=== PATIENT | female | born 1965 | race Caucasian/White ===

== ENCOUNTER → 2018-02-10 08:48 | Outpatient (CLI) | payer MEDICAID, SELFPAY ==
[2018-01-31 08:46] VITALS: BMI 21.4
--- NOTE | 2018-02-10 09:00 | RAD_ITS ---
STUDY: X-RAY - ESOPHAGUS (BARIUM SWALLOW) WITH FLUOROSCOPY REASON FOR EXAM: Female, 52 years old. Dysphagia for solids. TECHNIQUE: 14 view(s) of the esophagus were obtained following swallowing of barium. FLUOROSCOPY TIME (if supplied): (0:31) minutes/seconds COMPARISON: None. FINDINGS: There is no demonstrated esophageal foreign body. There is circumferential wall narrowing at the gastroesophageal junction. The patient ingested a 12 mm tablet of barium. The tablet is trapped at the gastroesophageal junction. Normal visualized aortic arch and descending thoracic aorta. Normal visualized pulmonary parenchyma. Normal visualized osseous structures of the thorax. RAD/Esophagus Only IMPRESSION: Circumferential narrowing at the gastroesophageal junction with trapping of the 12 mm tablet of barium. Endoscopic correlation is recommended. Electronically Signed: Fritz Alston MD at 14:06 EST Tel [phone], Service support ,
== END ==
PROVIDERS: Referring Provider Surgery; Visit Provider Surgery
DX: R13.10 Dysphagia, unspecified (principal)
CPT/HCPCS: 74220

== ENCOUNTER → 2018-02-25 13:41 | Outpatient (CLI) | payer MEDICAID, SELFPAY ==
[2018-01-31 08:46] VITALS: BMI 21.4
--- NOTE | 2018-02-25 13:43 | CT_ITS ---
STUDY: CT ABDOMEN AND PELVIS WITH CONTRAST REASON FOR EXAM: Female, 52 years old. Dysphagia. RADIATION DOSAGE (If Supplied By Facility): CTDIvol = ( 8.71 ) mGy, DLP = ( 341.70 ) mGycm TECHNIQUE: Transaxial images were obtained from the dome of the diaphragm to the symphysis pubis without oral contrast. 75 ml of Isovue 300 contrast was administered. Sagittal and coronal images were reconstructed. Individualized dose optimization techniques were used for this CT. COMPARISON: None. FINDINGS: The visualized lung bases are unremarkable. The visualized portions of the heart are within normal limits. Normal liver. Normal gallbladder and extrahepatic biliary system. Normal spleen. Normal pancreas. Normal bilateral adrenal glands. There is a too small to characterize low-attenuation focus within the right kidney that likely reflects underlying cyst. Normal left kidney. The visualized distal esophagus is incompletely distended There is mild focal thickening of the distal esophagus left of midline. There is circumferential wall thickening of the gastroesophageal junction visualized as well. Normal small intestine. There is a moderate amount of stool throughout the colon and rectum. There is non-visualization of the appendix. There is diffuse atherosclerotic calcification of the abdominal aorta, without a demonstrated aneurysm. Normal inferior vena cava. Normal retroperitoneum. Normal urinary bladder. Normal abdominal wall. Normal osseous structures. CT/Abdomen/Pelvis WITH Contrast IMPRESSION: Focal thickening of the distal esophagus and circumferential wall thickening of the gastroesophageal junction which may be secondary to their incompletely distended state however cannot exclude underlying inflammation and/or a neoplastic process, recommend direct visualization. Atherosclerosis. Moderate amount of stool throughout the colon and rectum. Electronically Signed: Niurka Wright MD at 15:12 EST Tel , Service support ,
[2018-02-25 14:01] LABS: CREATININE FINGERSTICK 0.8 mg/dL (0.55-1.02); EGFR FINGERSTICK > 60.0000 mL/min (>60)
--- OUTSIDE RECORDS SUMMARY | 2018-04-13 18:24 | XMS RPT_ITS ---
:1965 Author Organization [facility] Care Team Providers Name Role Phone Maliha Mcconnell Attending Unavailable Yamileth Lara Referring Unavailable Maliha Mcconnell Attending Unavailable Maliha Mcconnell Referring Unavailable [facility], [facility] Unavailable Maliha Mcconnell Attending Unavailable Maliha Mcconnell Referring Unavailable [facility] Unavailable Yamileth Lara Consulting Unavailable PROBLEMS PROBLEMS No Problem Records FoundPROCEDURES PROCEDURES No Procedure Records FoundRESULTS RESULTS CREATININE FINGERSTICK Collected: 02/25/2018 Status: F Source: [place] 1:51 PM [facility] REPOSITORY TYPE CODE TESTS RESULT OUT OF RANGE REFERENCE UNITS LAB L9100.0210 0.55-1.02 mg/dL Normal CREATININE WB 0.8 LAB L9100.0220 >60 mL/min EGFR WB Normal > 60.0000 Performed By: #### L9100.0200 #### [place] [facility] Laboratory Point of Care [address] [place] [address] ABDOMEN/PELVIS WITH Observed: 02/25/2018 Status: F Source: [place] CONTRAST 1:43 PM [facility] REPOSITORY [facility] Imaging Services [address] [place] [address] Abdomen/Pelvis WITH Contrast MR#: [id number] Acct: [id number] Name: SANJUANITA BECERRA Rep #: [id number] : 1965 F 52 From: Niurka Wright MD PCP: [facility] Status: REG CLI Study: Abdomen/Pelvis WITH Contrast Date of Exam: 02/25/18 Exam# [id number] Ordering Dr: Maliha Mcconnell MD STUDY: CT ABDOMEN AND PELVIS WITH CONTRAST REASON FOR EXAM: Female, 52 years old. Dysphagia. RADIATION DOSAGE (If Supplied By Facility): CTDIvol = ( 8.71 ) mGy, DLP = ( 341.70 ) mGycm TECHNIQUE: Transaxial images were obtained from the dome of the diaphragm to the symphysis pubis without oral contrast. 75 ml of Isovue 300 contrast was administered. Sagittal and coronal images were reconstructed. Individualized dose optimization techniques were used for this CT. COMPARISON: None. FINDINGS: The visualized lung bases are unremarkable. The visualized portions of the heart are within normal limits. Normal liver. Normal gallbladder and extrahepatic biliary system. Normal spleen. Normal pancreas. Normal bilateral adrenal glands. There is a too small to characterize low-attenuation focus within the right kidney that likely reflects underlying cyst. Normal left kidney. The visualized distal esophagus is incompletely distended There is mild focal thickening of the distal esophagus left of midline. There is circumferential wall thickening of the gastroesophageal junction visualized as well. Normal small intestine. There is a moderate amount of stool throughout the colon and rectum. There is non-visualization of the appendix. There is diffuse atherosclerotic calcification of the abdominal aorta, without a demonstrated aneurysm. Normal inferior vena cava. Normal retroperitoneum. Normal urinary bladder. Normal abdominal wall. Normal osseous structures. CT/Abdomen/Pelvis WITH Contrast IMPRESSION: Focal thickening of the distal esophagus and circumferential wall thickening of the gastroesophageal junction which may be secondary to their incompletely distended state however cannot exclude underlying inflammation and/or a neoplastic process, recommend direct visualization. Atherosclerosis. Moderate amount of stool throughout the colon and rectum. Electronically Signed: Niurka Wright MD at 15:12 EST Tel , Service support , CC: Maliha Mcconnell MD; [facility] Language Translator: Signed ESOPHAGUS ONLY Observed: 02/10/2018 Status: F Source: [place] 8:50 AM [facility] REPOSITORY [facility] Imaging Services [address] [place] [address] Esophagus Only MR#: [id number] Acct: [id number] Name: SANJUANITA BECERRA Rep #: [id number] : 1965 F 52 From: Fritz Alston MD PCP: [facility] Status: REG CLI Study: Esophagus Only Date of Exam: 02/10/18 Exam# [id number] Ordering Dr: Maliha Mcconnell MD STUDY: X-RAY - ESOPHAGUS (BARIUM SWALLOW) WITH FLUOROSCOPY REASON FOR EXAM: Female, 52 years old. Dysphagia for solids. TECHNIQUE: 14 view(s) of the esophagus were obtained following swallowing of barium. FLUOROSCOPY TIME (if supplied): (0:31) minutes/seconds COMPARISON: None. FINDINGS: There is no demonstrated esophageal foreign body. There is circumferential wall narrowing at the gastroesophageal junction. The patient ingested a 12 mm tablet of barium. The tablet is trapped at the gastroesophageal junction. Normal visualized aortic arch and descending thoracic aorta. Normal visualized pulmonary parenchyma. Normal visualized osseous structures of the thorax. RAD/Esophagus Only IMPRESSION: Circumferential narrowing at the gastroesophageal junction with trapping of the 12 mm tablet of barium. Endoscopic correlation is recommended. Electronically Signed: Fritz Alston MD at 14:06 EST Tel [phone], Service support , CC: Maliha Mcconnell MD; [facility] Language Translator: Signed SURGERY VISIT REPORT Observed: 01/31/2018 Status: F Source: [place] 9:37 AM [facility] REPOSITORY [facility] [address] [place] [address]. 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 Is patient in pain?: Yes (abdomen) Pain scale (1-10): 2 Allergies No Known Allergies Allergy (Verified 08/27/16 23:21) Medications insulin glargine (U-100) 100 unit/mL (3 mL) subcutaneous pen 10 unit SC DAILY 01/31/18 [History Confirmed 01/31/18] omeprazole 20 mg capsule,delayed release 20 mg PO DAILY 01/31/18 [History Confirmed 01/31/18] PFSH Medical History Acid reflux (Acute) Diabetes (Acute) Surgical History H/O thumb surgery (Acute) S/P appendectomy (Acute) Family History Grandmother Breast cancer Father Heart disease Hypertension Sister Thyroid disorder Aunt Thyroid disorder Social History Smoking Status: Current every day smoker alcohol intake: never HPI HPI HPI: SANJUANITA BECERRA, is a 52 F who presents to the office today for upper and lower scope. Patient has had complaints of dysphasia feeling like food gets caught in her distal esophagus and then she user throws it back up or if she it does happen to pass she states she gets diarrhea. She states is been going on for about 5-10 years and she really does not eat much solid food at all mostly liquids. Patient does have poor dentition has been recommended for her to see a dentist however the previous stents that she saw she had a bad experience with and does not wish to see him again. Patient also does complain of epigastric pain that go into her lower chest and she has that pretty much all the time the pain can range from a 1-10/10, it can last from a minute to most the day. Patient denies ever having a scope before or any family history of colon cancer. She states she has bowel movements about every other day denies any blood. Patient is also a diabetic but she states that the last time she taken any of her diabetic medication was in December she says she gets frustrated because even if she does not eat the blood sugars are always high. She states she has had labs done at the [facility] or trying to get those to see what her A1c is. ROS General General: No weight change, fatigue, colon cancer or breast cancer Gastro Gastrointestinal: Yes abdominal pain, Yes nausea or vomiting (Vomiting no nausea), Yes diarrhea, No constipation, No blood in stool, Yes acid reflux, No hemorrhoids, No ulcers, No gallbladder problem, No black,tarry stools Exam Const General: cooperative, comfortable, no acute distress HENMT Teeth and gingiva: poor dentition Resp Effort AND Inspection: normal respiratory effort GI Inspection: non-distended, scar (Right lower quadrant scar from appy) Palpation: soft, no hernias, tender (epigastric, no PS), no guarding Assessment AND Plan Problems 1. Dysphagia R13.10 2. Gastroesophageal reflux disease K21.9 3. Epigastric pain R10.13 4. Diabetes type 2, uncontrolled E11.65 5. Encounter for screening for malignant neoplasm of colon Z12.11 6. Poor dentition K08.9 Plan Discussed with patient that due to her dysphasia and feeling like food gets caught in her distal esophagus with plan to have her do a barium swallow prior to doing the EGD. Once we get the results of the barium swallow and does not look to be a stricture anything that needs to be dilated since I do not dilate the esophagus I would proceed with an EGD at that time. Patient does have a prescription for omeprazole 20 mg p.o. daily that she got on Saturday but has not taken any because she has not really eaten. Recommend the patient take omeprazole 40 mg once a day and told her it is okay as long as she is drinking she could take the medication. I have offered the patient EGD and colonoscopy for evaluation. Will schedule after barium swallow complete. I have explained the risks/benefits of the procedure and described the procedure. I have discussed the risks with the patient, including but not limited to: infection, bleeding, perforation of the GI tract requiring emergency surgery, inability to complete the procedure, injury to any internal organs, complications of anesthesia, etc. - the patient understands and agrees to proceed. I have answered all the patient's questions to the patient's satisfaction and the patient has no further questions. The patient has been given instructions for the colon cleansing preparation. One day of clears, MiraLAX Dulcolax split. Patient states she has not taken any insulin since December. States she has had labs done at the [facility]. Currently do not have those labs. Assuming her A1c is quite high. Also discussed patient that anesthesias does not allow us to elective cases if the A1c is 10 or greater. Recommend that she make another appointment with the [facility] and figure out her diabetic regimen that she should be doing at home and start doing that. Also discussed talking to them about possibly seeing if she can see anyone for nutrition since she does have diabetes. Also discussed her poor dentition would recommend her seeing a dentist. Patient did not prefer to see the one at the [facility] as she had a bad experience last time wondering if there is anyone else that they would know that she would be able to see. Maliha Mcconnell M.D. Pager: [phone] [facility] [address] [place] [address], [facility], [address] [place] [address] Office: [phone] Orders Orders: Plan Detail Follow Up will schedule barium swallow Coding Level of Care Code Off vis,new,level 4 Diagnoses Dysphagia R13.10 Gastroesophageal reflux disease K21.9 Epigastric pain R10.13 Diabetes type 2, uncontrolled E11.65 Encounter for screening for malignant neoplasm of colon Z12.11 Poor dentition K08.9 Time Spent (min) 45 11/16/18 0937 <Electronically signed by Maliha Mcconnell MD> Date Maliha Mcconnell MD Cosigner Signature: Date (if applicable) CC: Yamileth MERINO; [facility] ALLERGIES ALLERGIES DATE TYPE / CODE NAME / CODE REACTION SEVERITY SOURCE 08/27/2016 Drug No Known Unknown [facility] Allergy/4160 Allergies/F00 [facility] 89069(SNOMED [id number](RXNOR Repository CT) M) ENCOUNTERS ENCOUNTERS ADMIT/DISCHARGE ACCOUNT ADMITTING ENCOUNTER LOCATION SOURCE NUMBER CLASS 02/25/2018 [id number] Ambulatory [place] [facility] ing:CT Repository 02/10/2018 [id number] Ambulatory [place] [facility] ing:RAD Repository 01/31/2018/ [id number] Ambulatory BMSBuilding:B [place] [address] [facility] Repository PAYERS PAYERS ENCOUNTER GUARANTOR PAYER SUBSCRIBER SOURCE 02/25/2018 [place] FONGTYDOB: [place] [id number] [place] Insurance:[facility] [id number] [facility] [address]Szi: ([phone]) PLANPolicy Number: Repository [phone] ) [id number] Date:2964-48-36HI [address] [place] [address]ZG: 02/25/2018 Secondary NOT GIVENUNK [place] Insurance:SELF PAY [facility] Number: Effective Repository Date:2018-02-10 02/10/2018 CASPER Tillman Primary SANJUANITA S AJITTYDOB: [place] [id number] [place] Insurance:[facility]STINE [id number] [address]Lgt: (330) PLANPolicy Number: Repository [phone] () [id number] Date:1041-30-16[address] [facility] [place] [address]JG: 02/10/2018 Secondary NOT GIVENUNK [place] Insurance:SELF PAY [facility] Number: Effective Repository Date:2018-01-31 01/31/2018 Cas[place] A Primary SANJUANITA HILTYDOB: [place] [id number] [place] Insurance:WILD [id number] [address]Kvg: (330) PLANPolicy Number: Repository [phone] () [id number] Date:1671-08-07DZ [address] [place] [address]QT: 01/31/2018 Secondary SANJUANITA HILTYDOB: [place] Insurance:POSIES FOR [id number] [facility] Number: Repository [id number] Date:2018-01-28 01/31/2018 Tertiary NOT GIVENUNK [place] Insurance:SELF PAY [facility] Number: Effective Repository Date:2018-01-31
== END ==
PROVIDERS: Referring Provider Surgery; Visit Provider Surgery
DX: R13.10 Dysphagia, unspecified (principal)
CPT/HCPCS: 74177; Q9967

== ENCOUNTER 2018-10-06 07:39 | Day surgery (SDC) | payer MEDICAID, SELFPAY ==
--- NOTE | 2018-09-22 01:47 | HP_ITS ---
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 Is patient in pain?: No Allergies No Known Allergies Allergy (Verified 09/22/18 13:40) Medications insulin glargine (U-100) 100 unit/mL (3 mL) subcutaneous pen 10 unit SC DAILY 01/31/18 [History Confirmed 09/22/18] omeprazole 20 mg capsule,delayed release 20 mg PO DAILY 01/31/18 [History Confirmed 09/22/18] [facility] Medical History Dysphagia (Acute) Acid reflux (Acute) Diabetes (Acute) Surgical History history EGD with dilatation (Acute) H/O thumb surgery (Acute) S/P appendectomy (Acute) Family History Grandmother Breast cancer Father Heart disease Hypertension Sister Thyroid disorder Aunt Thyroid disorder Social History (Updated 09/22/18 @ 13:47 by Fabiano Barbosa MD) Smoking Status: Current every day smoker alcohol intake: never HPI HPI HPI: SANJUANITA BECERRA, is a 53 F who presents to the office today for HPI HPI Surgical H&P: Yes HPI: SANJUANITA BECERRA, is a 53 F who presents to the office today for a screening colonoscopy. Patient has never had a colonoscopy. She has had issues with a narrowed esophagus in this past year underwent esophageal dilatation up and [place]. This was done by Dr. Garcia since then she has had no difficulty with swallowing. ROS General General: Yes weight change; no appetite, fatigue, colon cancer, breast cancer or weakness HEENT HEENT: No difficulty swallowing, eye injury, eye surgery, swollen glands or hoarseness Endo Endocrine: Yes diabetes mellitus; no thyroid disease, thyroid cancer, Hair loss, heat intolerance or cold intolerance Skin Skin: No rash or changing moles Breast Breast: No left breast lump, right breast lump, nipple discharge, breast pain, abnormal mammogram, abnormal US or breast enlargement Musc Musculoskeletal: No back problems, arthritis, rheumatoid arthritis, gout or joint pain Cardio Cardiovascular: Yes high blood pressure; no murmur, pacemaker, heart disease, atrial fibrillation, heart attack, heart stent, palpitations, shortness of breat with exertion or chest pain Psych Psychiatric: Yes depression; no anxiety or hearing voices Resp Respiratory: No shortness of breath, Yes sleep apnea, Yes cough, No COPD, No asthma, No emphysema, No wheezing Gastro Gastrointestinal: No abdominal pain, No nausea or vomiting, Yes diarrhea, No constipation, No blood in stool, Yes acid reflux, No hemorrhoids, No ulcers, No gallbladder problem, No black,tarry stools Brigido Hematologic: No blood thinners, No blood disorders, No bleeding, No anemia, No blood clots Neuro Neurologic: No system reviewed and no additional complaints, except as docu, No as per HPI, No abnormal walking, No abnormal hearing, No abnormal movements, No abnormal speech, No behavioral changes, No burning sensations, No confusion, No seizure-like activity, No unsteadiness, No dizziness, No localized weakness, No frequent falls, No headache(s), No lack of coordination, No loss of vision, No memory loss, No numbness, No other visual disturbances, No radiating pain, No restless legs, No sensory deficit, No fainting, No tingling, No tremor(s), No weakness, No other Exam Const General: no acute distress, well developed, well hydrated Orientation: oriented to person, oriented to place, oriented to time [facility] Head: normocephalic, atraumatic Ears: external ears normal Mouth: moist mucous membranes Eyes Sclera: sclerae normal Pupils: normal by confrontation Neck Neck: no lymphadenopathy noted Neck mass: No Thyroid: thyroid normal, symmetrical Chest Chest palpation & inspection: normal inspection of the chest Breast Palpation: No nipple discharge Resp Effort & Inspection: normal respiratory effort Auscultation: clear to auscultation bilaterally Percussion: percussion normal Cardio Rate: regular rate Rhythm: regular rhythm Heart Sounds: no murmurs GI Palpation: soft, no hepatosplenomegaly, no masses, nontender Rectal Exam: other Other: Rectal exam deferred. Extrem General: normal to inspection, no clubbing, cyanosis or edema Assessment & Plan Problems 1. Encounter for screening colonoscopy Z12. Plan I have discussed the above with the patient. I have offered the patient colonoscopy for evaluation. I have explained the risks/benefits of the procedure and described the procedure. I have discussed the risks with the patient, including but not limited to: infection, bleeding, perforation of the GI tract requiring emergency surgery, inability to complete the procedure, injury to any internal organs, complications of anesthesia, etc. - the patient understands and agrees to proceed. I have answered all the patient's questions to the patient's satisfaction and the patient has no further questions. The patient has been given instructions for the colon cleansing preparation. Coding Level of Care Code Off vis,new,level 3 Diagnoses Encounter for screening colonoscopy Z12.09/22/18 1347 <Electronically signed by Fabiano andrade MD> Date _ Fabiano Barbosa MD I have re-examined the patient. There are no clinical changes since date of exam.
[2018-09-22 13:41] VITALS: BMI 21.4
[2018-10-06] VITALS (7 sets, daily range): BP systolic 84–133; BP diastolic 55–84; PULSE 74–95; RESP 16; TEMP 36.2–36.7; O2SAT 93–100; BMI 19.5
[2018-10-06 08:55] LABS: Bedside Glucose 140 mg/dL (70-110)
--- NOTE | 2018-10-06 10:27 | OP.ENDO_ITS ---
10/06/2018 Jocelyn Lyles [facility] Re : Colonoscopy procedure for Arianna Yoo [facility] This procedure was performed on Saturday, October 06, 2018. My impressions and recommendations are as follows: Impressions : - The entire examined colon is normal on direct and retroflexion views. - No specimens collected. Recommendations : - Discharge patient to home. - Resume previous diet. - Continue present medications. - Repeat colonoscopy in 10 years for screening purposes. - Return to primary care physician (date not yet determined). My findings are described in the full procedure note, which is enclosed. If I can be of further assistance, please feel free to contact me at Doctor phone number(s): , Fax: [phone], Work: . Sincerely, MD Fabiano Molina MD 10/06/2018 10:27:14 AM This report has been signed electronically.
== END 2018-10-06 11:18 | disposition home or self-care (01) ==
LOC: EN 07:40 → AC 07:42
PROVIDERS: Referring Provider Surgery; Visit Provider Surgery
PROC: 0DJD8ZZ Inspection of Lower Intestinal Tract, Via Natural or Artificial Opening Endoscopic (ICD-10-PCS; CPT 45378; principal; 2018-10-06 08:55)
DX: Z12.11 Encounter for screening for malignant neoplasm of colon (principal); E11.9 Type 2 diabetes mellitus without complications; F17.200 Nicotine dependence, unspecified, uncomplicated; K21.9 Gastro-esophageal reflux disease without esophagitis; Z79.4 Long term (current) use of insulin; Z79.899 Other long term (current) drug therapy
CPT/HCPCS: 45378; 82962; J7120; J1610

== ENCOUNTER → 2020-08-16 10:01 | Outpatient (CLI) | payer MEDICAID, SELFPAY ==
[2020-08-16 10:01] VITALS: BMI 19.5
[2020-08-16 10:46] LABS: Absolute Lymphocyte Count 1.64 X10^3/uL (0.83-4.51); Absolute Neutrophil Count 6.4 X10^3/uL (2.0-7.7); Basophil# 0.07 X10^3/uL; Basophil% 0.8 % (0-1); Eosinophil# 0.11 X10^3/uL; Eosinophils% 1.2 % (0-5); Hematocrit 37.3 % (37-47); Hemoglobin 12.4 g/dL (12.0-15.0); Lymphocyte # 1.64 X10^3/ul (0.83-4.51); Lymphocyte % 18.4 % (19-41); Mean Corp Hgb Conc 33.2 g/dL (32-36); Mean Corpuscular Hgb 29.5 pg (27.0-32.0); Mean Corpuscular Volume 88.8 fL (81-99); Mean Platelet Vol. 11.7 fl (6.2-12.0); Monocyte# 0.62 X10^3/uL; NRBC Flagged by Analyzer 0 % (0-5); Neutrophil # 6.43 X10^3/uL (2.7-7.7); Neutrophil % 72.3 % (47-70); Platelet Count 231 K/mm3 (150-450); RBC Distribution Width CV 12.1 % (11.6-14.6); White Blood Count 8.9 K/mm3 (4.4-11.0)
[2020-08-16 11:23] LABS: ALB/GLOB Ratio 0.8 RATIO (0.9-2.4); AST(SGOT) 14 U/L (15-37); Alanine Aminotransfer ALT/SGPT 24 U/L (13-56); Albumin, Serum 3.4 g/dL (3.2-5.0); Alkaline Phosphatase 185 U/L (45-117); Anion Gap 8 (5-15); BUN 12 mg/dL (7-18); BUN/Creat Ratio 13.1 RATIO (10-20); Calcium,Total 9.2 mg/dL (8.5-10.1); Chloride 98 mmol/L (98-107); Cholesterol 218 mg/dL (200); Creatinine, Serum 0.92 mg/dL (0.55-1.02); EST Glomerular Filtration Rate 68 mL/min (>60); Est Glom Filt Rate - Afr Amer 82 mL/min (>60); Globulin 4.1 g/dL (2.2-4.2); Glucose 462 mg/dL (74-106); High Density Lipoprotein 69 mg/dL; Protein, Total 7.5 g/dL (6.4-8.2); Sodium Level 134 mmol/L (136-145); Thyroid Stim Hormone (TSH) 0.57 uIU/mL (0.358-3.74); Triglycerides 187 mg/dL; Very Low Density Lipoprotein 37 mg/dL (5-40)
== END ==
DX: E11.65 Type 2 diabetes mellitus with hyperglycemia (principal)
CPT/HCPCS: 36415; 80053; 80061; 84443; 85025

== ENCOUNTER 2020-08-30 07:10 | Emergency (ER) | payer MEDICAID, SELFPAY ==
[2020-08-16 10:01] VITALS: BMI 19.5
[2020-08-30 07:10] VITALS: BP 110/67; PULSE 115; RESP 16; TEMP 35.8; BMI 19.9
--- NOTE | 2020-08-30 07:36 | EX.ED.DYSGE1 ---
HPI History of Present Illness Chief Complaint: Ear Problem Associated Symptoms Associated Symptoms: Right ear pain for a few days after getting her hair wet using Q-tips with Narrative Narrative: Right ear pain for a few days after getting her hair wet using Q-tips with no improvement no fever no cough no left ear symptoms no other complaints no URI symptoms no history of ear issues or problems [facility] Medical History (Updated 08/30/20 @ 07:[address] Anjel Smith MD) Acid reflux Diabetes Dysphagia Home Medications omeprazole 20 mg capsule,delayed release 20 mg PO DAILY 01/31/18 [History Last Taken Unknown] albuterol sulfate 2 puff INHALATION Q4H PRN PRN 10/01/18 [History Last Taken Unknown] ergocalciferol (vitamin D2) 50,000 unit PO Q7D 10/01/18 [History Last Taken Unknown] insulin glargine 35 unit SQ QHS 10/01/18 [History Last Taken Unknown] metformin 1,000 mg PO DAILY 10/01/18 [History Last Taken Unknown] carbamide peroxide [Ear Drops (carbamide peroxide)] 5 drp RIGHT EAR DAILY 4 Days #18 ml 08/30/20 [Rx Last Taken Unknown] Allergy/AdvReac Type Severity Reaction Status Date / Time No Known Allergies Allergy Verified 10/01/18 13:32 Family History Grandmother Breast cancer Father Heart disease Hypertension Sister Thyroid disorder Aunt Thyroid disorder Surgical History H/O thumb surgery history EGD with dilatation S/P appendectomy Social History (Updated 09/22/18 @ 13:[address] Fabiano Barbosa MD) Smoking Status: Current every day smoker tobacco type: cigarettes alcohol intake: never ROS ROS ED ROS Narrative Right ear discomfort only otherwise negative Constitutional Constitutional ED: Reports subjective, sweats and other; Denies chills, fever(s) or weight loss Eyes Eyes: Denies blurry vision or change in vision ENT ENT ED: Denies ear pain Cardiovascular Cardiovascular: Denies chest pain or palpitations Respiratory/Chest Respiratory/Chest: Denies dyspnea Gastrointestinal Gastrointestinal: Denies abdominal pain, nausea or vomiting Genitourinary Genitourinary ED: Denies dysuria or hematuria Musculoskeletal Musculoskeletal: Denies arthralgias or myalgias Integumentary Reports rash; Denies abscess Neurologic Neurologic: Denies weakness Psychiatric Psychiatric: Denies anxiety or depression Endocrine Endocrinology: Denies polydipsia or polyuria Allergic/Immunologic Allergic/Immunologic ED: Denies urticaria EXAM Physical Exam Narrative Exam Narrative: Physical exam is as above generally unremarkable see those notes, she does appear to have a right cerumen impaction TM is minimally visualized and appears okay the left TM and canal are unremarkable nose and throat and the rest of exam is unremarkable see below Const Vital Signs: 08/30/20 07:10 Temperature 96.4 F L Temperature Source Temporal Pulse Rate 115 H Respiratory Rate 16 Blood Pressure 110/67 Blood Pressure Mean 81 Positive well developed General Appearance ED: well developed HEENT Reports normocephalic Negative for trauma Eyes EOMs intact bilaterally Neck supple Chest Wall inspection of chest normal Resp normal respiratory effort Cardio regular rate GI non-tender and non-distended Back/Spine Back/Spine Narrative: unremarkable Extremity normal to inspection Neuro oriented x3 and CN's II-XII intact bilaterally Sensorium / Orientation: alert Psych mental status grossly normal Skin no rashes or lesions noted MDM MDM MDM Narrative Medical decision making narrative: Discussed the above with her asked her to stop using Q-tips, she will be started on Cerumenex refer to ENT and return for change in symptoms Home disposition final impression right earwax impaction Discharge Plan Triage Chief Complaint: Ear Problem ED Provider: Anjel Smith Dx/Rx/DC Orders Clinical Impression: Cerumen impaction Instructions: ED Cerumen Impaction Treated Prescriptions: New carbamide peroxide [Ear Drops (carbamide peroxide)] 6.5 % drops 5 drp RIGHT EAR DAILY 4 Days Qty: 18 RF: 0 No Action omeprazole 20 mg capsule,delayed release(DR/EC) 20 mg PO DAILY RF: 0 metformin 1,000 MG tablet 1,000 mg PO DAILY RF: 0 ergocalciferol (vitamin D2) 50,000 UNIT capsule 50,000 unit PO Q7D RF: 0 albuterol sulfate 1 PUFF inhaler 2 puff inhalation Q4H PRN PRN (Reason: Sob &/Or Wheezing) RF: 0 insulin glargine 100 UNIT/ML insulin pen 35 unit SQ QHS RF: 0 [facility] Referrals: Vimal Carrero MD [STAFF PHYSICIAN] - [facility],Jocelyn Lyles [Primary Care Provider] -
== END 2020-08-30 07:57 | disposition home or self-care (01) ==
LOC: ED 07:50
PROVIDERS: Emergency Provider Emergency Medicine
DX: H61.21 Impacted cerumen, right ear (principal); F17.210 Nicotine dependence, cigarettes, uncomplicated; E11.9 Type 2 diabetes mellitus without complications; K21.9 Gastro-esophageal reflux disease without esophagitis; Z79.4 Long term (current) use of insulin; Z79.899 Other long term (current) drug therapy
CPT/HCPCS: 99282

== ENCOUNTER 2020-10-13 00:07 | Emergency (ER) | payer MEDICAID, SELFPAY ==
[2020-10-13 00:08] VITALS: BP 136/61; PULSE 80; RESP 17; TEMP 36.6; O2SAT 98; BMI 17.7
[2020-10-13 00:10] VITALS: TEMP 35.1; BMI 17.6
[2020-10-13 00:21] LABS: Bedside Glucose 116 mg/dL (70-110)
[2020-10-13 00:30] LABS: Absolute Lymphocyte Count 3.78 X10^3/uL (0.83-4.51); Absolute Neutrophil Count 10.3 X10^3/uL (2.0-7.7); Basophil# 0.08 X10^3/uL; Basophil% 0.5 % (0-1); Eosinophil# 0.19 X10^3/uL; Eosinophils% 1.2 % (0-5); Hematocrit 34.8 % (37-47); Hemoglobin 11.5 g/dL (12.0-15.0); Lymphocyte # 3.78 X10^3/ul (0.83-4.51); Lymphocyte % 24.4 % (19-41); Mean Corpuscular Hgb 30.2 pg (27.0-32.0); Mean Corpuscular Volume 91.3 fL (81-99); Mean Platelet Vol. 10.8 fl (6.2-12.0); Monocyte# 1.09 X10^3/uL; NRBC Flagged by Analyzer 0 % (0-5); Neutrophil # 10.29 X10^3/uL (2.7-7.7); Neutrophil % 66.4 % (47-70); Platelet Count 319 K/mm3 (150-450); RBC Distribution Width CV 12.8 % (11.6-14.6); RBC Distribution Width SD 42.5 fl (35.1-43.9); Red Blood Count 3.81 M/mm3 (4.2-5.4); White Blood Count 15.5 K/mm3 (4.4-11.0)
--- NOTE | 2020-10-13 00:43 | ED.RN ---
K OF 2.7 REPORTED TO .
[2020-10-13 00:44] LABS: Anion Gap 10 (5-15); BUN 6 mg/dL (7-18); BUN/Creat Ratio 8.8 RATIO (10-20); Calcium,Total 9.2 mg/dL (8.5-10.1); Chloride 98 mmol/L (98-107); Creatinine, Serum 0.68 mg/dL (0.55-1.02); EST Glomerular Filtration Rate 96 mL/min (>60); Est Glom Filt Rate - Afr Amer 116 mL/min (>60); Estimated Creatinine Clearance 76.15 ml/min; Glucose 118 mg/dL (74-106); Potassium 2.7 mmol/L (3.5-5.1); Sodium Level 140 mmol/L (136-145)
--- NOTE | 2020-10-13 00:47 | EX.ED.DYSGE1 ---
HPI History of Present Illness Chief Complaint: Hypoglycemia Informant: patient and family Narrative Narrative: Patient is a 55-year-old female who presents to the emergency department for hypoglycemia. Apparently she has had issues with this over the past 4 weeks. Happens maybe once a week. They have been able to control at home but today they were unable to get her blood sugar up. It was low as 26. EMS did give D10 and she has been feeling better. Her only complaint is she feels cold at this time. Patient did have some recent medication adjustments. They added a once weekly medication that they do not know the name of. They increased her regular insulin from 55 units to 60. She is also on glipizide and Metformin. She states that she has been eating regularly. She has had some intermittent diarrhea. She denies any nausea/vomiting. No fevers or chills. Denies any chest pain, shortness of breath. No abdominal pain. [facility] Medical History (Updated 10/13/20 @ 00:[address] Lam Shepherd, ) Acid reflux Diabetes Dysphagia Home Medications omeprazole 20 mg capsule,delayed release 20 mg PO DAILY 01/31/18 [History Last Taken Unknown] albuterol sulfate 2 puff INHALATION Q4H PRN PRN 10/01/18 [History Last Taken Unknown] ergocalciferol (vitamin D2) 50,000 unit PO Q7D 10/01/18 [History Last Taken Unknown] insulin glargine 35 unit SQ QHS 10/01/18 [History Last Taken Unknown] metformin 1,000 mg PO DAILY 10/01/18 [History Last Taken Unknown] carbamide peroxide [Ear Drops (carbamide peroxide)] 5 drp RIGHT EAR DAILY 4 Days #18 ml 08/30/20 [Rx Last Taken Unknown] insulin detemir U-100 [Levemir FlexTouch U-100 Insuln] 50 unit SUBCUT QHS 10/13/20 [History Last Taken Unknown] Allergy/AdvReac Type Severity Reaction Status Date / Time No Known Allergies Allergy Verified 10/13/20 00:12 Family History Grandmother Breast cancer Father Heart disease Hypertension Sister Thyroid disorder Aunt Thyroid disorder Surgical History H/O thumb surgery history EGD with dilatation S/P appendectomy Social History Smoking Status: Current every day smoker tobacco type: cigarettes alcohol intake: never ROS ROS ED Constitutional Constitutional ED: Reports chills; Denies fever(s) Eyes Eyes: Denies change in vision ENT ENT ED: Denies epistaxis or rhinorrhea Cardiovascular Cardiovascular: Denies chest pain or palpitations Respiratory/Chest Respiratory/Chest: Denies cough, dyspnea or dyspnea on exertion Gastrointestinal Gastrointestinal: Denies abdominal pain, diarrhea, nausea or vomiting Genitourinary Genitourinary ED: Denies dysuria, hematuria or urinary frequency Musculoskeletal Musculoskeletal: Denies back pain or neck pain Integumentary Denies rash Neurologic Neurologic: Denies dizziness, headache(s) or weakness EXAM Physical Exam Const Vital Signs: 10/13/20 00:08 10/13/20 00:10 10/13/20 00:12 Temperature 98 F 95.2 F L Temperature Source Temporal Pulse Rate 80 Respiratory Rate 17 Respiratory Effort Normal Non-Labored Respiratory Pattern Normal Blood Pressure 136/61 H Blood Pressure Mean 86 Pulse Ox 98 Oxygen Delivery Method Room Air 10/13/20 02:36 Temperature Temperature Source Pulse Rate 69 Respiratory Rate 15 Respiratory Effort Respiratory Pattern Blood Pressure 119/60 Blood Pressure Mean Pulse Ox 99 Oxygen Delivery Method Positive well nourished and well developed General Appearance ED: well developed and NAD HEENT Reports normocephalic, head/scalp atraumatic and moist mucous membranes Eyes PERRL and EOMs intact bilaterally Neck supple Resp normal respiratory effort and clear to auscultation bilaterally Auscultation: Negative for rales, rhonchi or wheezes Cardio regular rate, regular rhythm and no murmurs GI normal to inspection, nondistended, normoactive bowel sounds and non-tender Palpation: soft; Negative for guarding or rebound tenderness present Extremity normal to inspection General Extremety ED: Negative for edema or tenderness General Extremity: Negative for edema Neuro oriented x3, CN's II-XII intact bilaterally and no sensory deficits noted Sensorium / Orientation: alert Motor Exam: strength 5/5 throughout Psych mental status grossly normal Skin no rashes or lesions noted MDM MDM MDM Narrative Medical decision making narrative: Patient presents to the ED for hypoglycemia. She is a diabetic on multiple diabetic medications including insulin. She did have some recent adjustments. Apparently she was having a hard time controlling her blood sugar as it was normally in the 300s. Has been better controlled but has had a few hypoglycemic episodes. On arrival to the ED she is feeling better as she was treated by EMS. Lab work obtained which showed a blood glucose of 118. She was found to have a low potassium which could be related to her insulin and dextrose use. We will replace this oral and bolus IV dose. Patient monitored in the ED without any repeat symptoms. We will plan on discharge home. She is to contact her PCP in the morning. I did recommend going back to her previous insulin dose until she can be seen by them. Patient understands and is agreeable with this plan. All questions were answered. She is going to call her PCP in the morning. Lab Data Labs: Laboratory Results - last 24 hr 10/13/20 10/13/20 10/13/20 00:17 00:17 00:17 WBC 15.5 H RBC 3.81 L Hgb 11.5 L Hct 34.8 L MCV 91.3 MCH 30.2 MCHC 33.0 RDW Std Deviation 42.5 RDW Coeff of Emily 12.8 Plt Count 319 MPV 10.8 Immature Gran % (Auto) 0.500 Neut % (Auto) 66.4 Lymph % (Auto) 24.4 Hudspeth % (Auto) 7.0 Eos % (Auto) 1.2 Baso % (Auto) 0.5 Absolute Neuts (auto) 10.3 H Absolute Lymphs (auto) 3.78 Nucleated RBC % 0 Sodium 140 Potassium 2.7 L* Chloride 98 Carbon Dioxide 32.0 Anion Gap 10 BUN 6 L Creatinine 0.68 Estim Creat Clear Calc 76.15 Est GFR (MDRD) Af Amer 116 Est GFR (MDRD) Non-Af 96 BUN/Creatinine Ratio 8.8 L Glucose 118 H Calcium 9.2 POC Glucose 116 H Discharge Plan Triage Chief Complaint: Hypoglycemia ED Provider: Lam Shepherd Dx/Rx/DC Orders Clinical Impression: Hypoglycemia, Hypokalemia Instructions: ED Hypokalemia, ED Diabetic Insulin Reaction Prescriptions: No Action omeprazole 20 mg capsule,delayed release(DR/EC) 20 mg PO DAILY RF: 0 metformin 1,000 MG tablet 1,000 mg PO DAILY RF: 0 ergocalciferol (vitamin D2) 50,000 UNIT capsule 50,000 unit PO Q7D RF: 0 albuterol sulfate 1 PUFF inhaler 2 puff inhalation Q4H PRN PRN (Reason: Sob &/Or Wheezing) RF: 0 insulin glargine 100 UNIT/ML insulin pen 35 unit SQ QHS RF: 0 carbamide peroxide [Ear Drops (carbamide peroxide)] 6.5 % drops 5 drp RIGHT EAR DAILY 4 Days Qty: 18 RF: 0 Levemir FlexTouch U-100 Insuln 100 unit/mL (3 mL) insulin pen 50 unit SUBCUT QHS RF: 0 Primary Care Provider: Felecia Christianson Referrals: Felecia Christianson, GEOPH[employer]ORATORY DIRECTOR-C [Primary Care Provider] - 1 Day Disposition Disposition: Home, Self Care Discharge Date/Time: 10/13/20 02:36
[2020-10-13] MEDS: Potassium Chloride Oral Tablet 20 MEQ 40 MEQ PO (01:23)
[2020-10-13] MEDS: Potassium Chloride 10mEq/100mL 10 MEQ/100 ML IV.SOLN. 100 MEQ IV BOLUS (01:23)
[2020-10-13 02:36] VITALS: BP 119/60; PULSE 69; RESP 15; O2SAT 99
== END 2020-10-13 02:36 | disposition home or self-care (01) ==
PROVIDERS: Emergency Provider Emergency Medicine; PCP Nurse Practitioner Adult Health
DX: E11.649 Type 2 diabetes mellitus with hypoglycemia without coma (principal); K21.9 Gastro-esophageal reflux disease without esophagitis; F17.210 Nicotine dependence, cigarettes, uncomplicated; Z79.4 Long term (current) use of insulin; Z79.899 Other long term (current) drug therapy
CPT/HCPCS: 80048; 82962; 85025; 96365; 99285; A4216

== ENCOUNTER 2020-11-08 18:11 | Emergency (ER) | payer MEDICAID, SELFPAY ==
[2020-11-08 18:12] VITALS: BP 121/62; PULSE 86; RESP 14; TEMP 35.4; O2SAT 98; BMI 20.2
[2020-11-08] MEDS: Dextrose 50%-Water 25 GM/50 ML DISP.SYRIN IV (18:17)
[2020-11-08 18:29] VITALS: BP 167/100; PULSE 109; RESP 18; O2SAT 100
[2020-11-08 18:40] LABS: Bedside Glucose 21 mg/dL (70-110)
[2020-11-08 18:40] LABS: Bedside Glucose 229 mg/dL (70-110)
[2020-11-08 19:11] VITALS: BP 109/63; PULSE 94; RESP 18; O2SAT 99
[2020-11-08 20:13] VITALS: BP 116/74; PULSE 100; RESP 16; O2SAT 100
[2020-11-08 20:16] LABS: Bedside Glucose 66 mg/dL (70-110)
[2020-11-08] MEDS: Glucose Oral Gel 15 GM Tube PO (20:17)
[2020-11-08 21:00] VITALS: BP 116/74; PULSE 96; RESP 16; O2SAT 99
[2020-11-08 21:05] LABS: Bedside Glucose 109 mg/dL (70-110)
--- NOTE | 2020-11-08 21:46 | EDS_ITS ---
HPI History of Present Illness Chief Complaint: Hypoglycemia Informant: patient Onset/Context/Timing Onset: Today Context: Gradual Onset Timing: Continuous Worsened by: Nothing Relieved by: Nothing Narrative Narrative: Patient presents with hypoglycemic episode that occurred today. Patient states she took her normal diabetic medications. Patient states she did not eat anything until 2:00 this afternoon. Patient's blood sugar at home was 36. Family gave her some peanut butter and orange juice. Family also gave her a nother spoonful of peanut butter. Patient's blood sugar was repeated at home and was 30. Family called EMS at that time. Patient denies any chest pain or shortness of breath. Patient states she felt hot. Patient denies any chest pain or shortness of breath. Patient denies any nausea or vomiting. PFSH PFSH Medical History Acid reflux Diabetes Dysphagia Home Medications omeprazole 20 mg capsule,delayed release 20 mg PO DAILY 01/31/18 [History Last Taken Unknown] albuterol sulfate 2 puff INHALATION Q4H PRN PRN 10/01/18 [History Last Taken Unknown] ergocalciferol (vitamin D2) 50,000 unit PO Q7D 10/01/18 [History Last Taken Unknown] insulin glargine 35 unit SQ QHS 10/01/18 [History Last Taken Unknown] metformin 1,000 mg PO DAILY 10/01/18 [History Last Taken Unknown] carbamide peroxide [Ear Drops (carbamide peroxide)] 5 drp RIGHT EAR DAILY 4 Days #18 ml 08/30/20 [Rx Last Taken Unknown] insulin detemir U-100 [Levemir FlexTouch U-100 Insuln] 50 unit SUBCUT QHS 10/13/20 [History Last Taken Unknown] Allergy/AdvReac Type Severity Reaction Status Date / Time No Known Allergies Allergy Verified 11/08/20 18:12 Family History Grandmother Breast cancer Father Heart disease Hypertension Sister Thyroid disorder Aunt Thyroid disorder Surgical History H/O thumb surgery history EGD with dilatation S/P appendectomy Social History Smoking Status: Current every day smoker tobacco type: cigarettes alcohol intake: never ROS ROS ED Constitutional Constitutional ED: Denies chills or fever(s) Eyes Eyes: Denies blurry vision or change in vision ENT ENT ED: Denies rhinorrhea or sore throat Cardiovascular Cardiovascular: Denies chest pain or palpitations Respiratory/Chest Respiratory/Chest: Denies cough or dyspnea Gastrointestinal Gastrointestinal: Denies nausea or vomiting Genitourinary Genitourinary ED: Denies dysuria or hematuria Musculoskeletal Musculoskeletal: Denies back pain or neck pain Integumentary Denies abscess or rash Neurologic Neurologic: Denies headache(s) or weakness Allergic/Immunologic Allergic/Immunologic ED: Denies mouth swelling or urticaria EXAM Physical Exam Const Vital Signs: 11/08/20 18:12 11/08/20 18:29 11/08/20 19:11 Temperature 95.8 F L Temperature Source Temporal Pulse Rate 86 109 H 94 Respiratory Rate 14 18 18 Respiratory Pattern Normal Blood Pressure 121/62 H 167/100 H 109/63 Blood Pressure Mean 81 122 78 Pulse Ox 98 100 99 Oxygen Delivery Method Room Air Room Air 11/08/20 20:13 11/08/20 21:00 11/08/20 22:00 Temperature Temperature Source Pulse Rate 100 96 88 Respiratory Rate 16 16 16 Respiratory Pattern Blood Pressure 116/74 116/74 108/66 Blood Pressure Mean 88 88 80 Pulse Ox 100 99 99 Oxygen Delivery Method Positive well nourished and well developed General Appearance ED: well developed HEENT Reports moist mucous membranes Neck supple and no JVD Resp normal respiratory effort and clear to auscultation bilaterally Cardio regular rate, regular rhythm and no murmurs GI normal to inspection, nondistended, normoactive bowel sounds and non-tender Palpation: soft Extremity normal to inspection General Extremety ED: Negative for edema or tenderness General Extremity: Negative for edema Neuro oriented x3, CN's II-XII intact bilaterally and no sensory deficits noted Sensorium / Orientation: alert Motor Exam: strength 5/5 throughout Psych mental status grossly normal Skin no rashes or lesions noted MDM MDM MDM Narrative Medical decision making narrative: Blood sugar on arrival was 21. Patient was given amp of D50. Patient's blood sugar improved to 29 after this. Patient was given a diet tray. Patient's blood sugar dropped again to 66. Patient was given oral glucose after this. Patient's blood sugar improved to 109. Patient's blood sugar remained normal at 123. Patient will be discharged home. Patient was instructed to eat her regular diet. Patient was instructed to follow-up with her primary care physician in 5 to 7 days. Patient and family understood and were agreeable with the plan. All questions were answered. Lab Data Labs: Laboratory Results - last 24 hr 11/08/20 11/08/20 11/08/20 18:13 18:34 20:11 POC Glucose 21 L* 229 H 66 L 11/08/20 11/08/20 20:58 21:55 POC Glucose 109 123 H Discharge Plan Triage Chief Complaint: Hypoglycemia ED Provider: Vimal Hernández Dx/Rx/DC Orders Clinical Impression: Hypoglycemia Instructions: ED Hypoglycemia Oral Diabetic ... Prescriptions: No Action omeprazole 20 mg capsule,delayed release(DR/EC) 20 mg PO DAILY RF: 0 metformin 1,000 MG tablet 1,000 mg PO DAILY RF: 0 ergocalciferol (vitamin D2) 50,000 UNIT capsule 50,000 unit PO Q7D RF: 0 albuterol sulfate 1 PUFF inhaler 2 puff inhalation Q4H PRN PRN (Reason: Sob &/Or Wheezing) RF: 0 insulin glargine 100 UNIT/ML insulin pen 35 unit SQ QHS RF: 0 carbamide peroxide [Ear Drops (carbamide peroxide)] 6.5 % drops 5 drp RIGHT EAR DAILY 4 Days Qty: 18 RF: 0 Levemir FlexTouch U-100 Insuln 100 unit/mL (3 mL) insulin pen 50 unit SUBCUT QHS RF: 0 Primary Care Provider: Felecia Christianson Referrals: Felecia Christianson, HEIDI-C [Primary Care Provider] - 3-5 Days Disposition Disposition: Home, Self Care Discharge Date/Time: 11/08/20 22:17
[2020-11-08 22:00] VITALS: BP 108/66; PULSE 88; RESP 16; O2SAT 99
[2020-11-08 22:01] LABS: Bedside Glucose 123 mg/dL (70-110)
== END 2020-11-08 22:17 | disposition home or self-care (01) ==
PROVIDERS: Emergency Provider Emergency Medicine; PCP Nurse Practitioner Adult Health
DX: E11.649 Type 2 diabetes mellitus with hypoglycemia without coma (principal); F17.210 Nicotine dependence, cigarettes, uncomplicated
CPT/HCPCS: 82962; 96374; 99283; J7030; A4216

== ENCOUNTER → 2020-12-26 09:42 | Outpatient (CLI) | payer MEDICAID, SELFPAY ==
[2020-12-26 10:46] LABS: Absolute Lymphocyte Count 1.49 X10^3/uL (0.83-4.51); Absolute Neutrophil Count 6.3 X10^3/uL (2.0-7.7); Basophil# 0.04 X10^3/uL; Basophil% 0.5 % (0-1); Eosinophil# 0.08 X10^3/uL; Eosinophils% 0.9 % (0-5); Hemoglobin 9.7 g/dL (12.0-15.0); Lymphocyte # 1.49 X10^3/ul (0.83-4.51); Lymphocyte % 17.4 % (19-41); Mean Corp Hgb Conc 33.4 g/dL (32-36); Mean Corpuscular Hgb 29.9 pg (27.0-32.0); Mean Corpuscular Volume 89.5 fL (81-99); Mean Platelet Vol. 11.3 fl (6.2-12.0); Monocyte# 0.62 X10^3/uL; Monocyte% 7.2 % (0-10); NRBC Flagged by Analyzer 0 % (0-5); Neutrophil # 6.31 X10^3/uL (2.7-7.7); Neutrophil % 73.5 % (47-70); Platelet Count 216 K/mm3 (150-450); RBC Distribution Width CV 12.7 % (11.6-14.6); RBC Distribution Width SD 41.1 fl (35.1-43.9); Red Blood Count 3.24 M/mm3 (4.2-5.4); White Blood Count 8.6 K/mm3 (4.4-11.0)
[2020-12-26 11:28] LABS: ALB/GLOB Ratio 0.8 RATIO (0.9-2.4); AST(SGOT) 20 U/L (15-37); Alanine Aminotransfer ALT/SGPT 21 U/L (13-56); Albumin, Serum 3.2 g/dL (3.2-5.0); Alkaline Phosphatase 102 U/L (45-117); Anion Gap 6 (5-15); BUN 9 mg/dL (7-18); BUN/Creat Ratio 12.6 RATIO (10-20); Calcium,Total 9.2 mg/dL (8.5-10.1); Chloride 101 mmol/L (98-107); Creatinine, Serum 0.71 mg/dL (0.55-1.02); EST Glomerular Filtration Rate 91 mL/min (>60); Est Glom Filt Rate - Afr Amer 110 mL/min (>60); Globulin 3.8 g/dL (2.2-4.2); Glucose 295 mg/dL (74-106); Sodium Level 138 mmol/L (136-145)
== END ==
PROVIDERS: Referring Provider Nurse Practitioner Adult Health; Visit Provider Nurse Practitioner Adult Health
DX: E11.65 Type 2 diabetes mellitus with hyperglycemia (principal); E87.6 Hypokalemia
CPT/HCPCS: 36415; 80053; 85025

== ENCOUNTER → 2020-12-27 13:23 | Outpatient (CLI) | payer MEDICAID, SELFPAY ==
[2020-12-27 14:20] LABS: Vitamin B12 828 pg/mL (211-911)
[2020-12-27 14:29] LABS: Iron 38 ug/dL (50-170); Iron Binding Capacity,Total 378 ug/dL (250-450); PERCENT IRON SATURATION 10.1 % (15.0-55.0)
== END ==
DX: D64.9 Anemia, unspecified (principal)
CPT/HCPCS: 36415; 82607; 82746; 83540; 83550

== ENCOUNTER → 2020-12-28 09:55 | Outpatient (CLI) | payer MEDICAID, SELFPAY | PROVIDERS: Referring Provider Nurse Practitioner Adult Health; Visit Provider Nurse Practitioner Adult Health | DX: D64.9 Anemia, unspecified (principal) | CPT/HCPCS: 82274 ==

== ENCOUNTER → 2021-01-20 09:32 | Outpatient (CLI) | payer MEDICAID, SELFPAY ==
[2021-01-20 11:32] LABS: Iron 47 ug/dL (50-170); Iron Binding Capacity,Total 443 ug/dL (250-450)
== END ==
PROVIDERS: Referring Provider Nurse Practitioner Adult Health; Visit Provider Nurse Practitioner Adult Health
DX: D50.9 Iron deficiency anemia, unspecified (principal)
CPT/HCPCS: 36415; 83540; 83550

== ENCOUNTER → 2021-02-02 09:39 | Outpatient (CLI) | payer MEDICAID, SELFPAY ==
[2021-02-02 10:01] LABS: Absolute Lymphocyte Count 1.88 X10^3/uL (0.83-4.51); Absolute Neutrophil Count 6.1 X10^3/uL (2.0-7.7); Basophil# 0.06 X10^3/uL; Basophil% 0.7 % (0-1); Eosinophil# 0.09 X10^3/uL; Hematocrit 31.8 % (37-47); Hemoglobin 10.7 g/dL (12.0-15.0); Lymphocyte # 1.88 X10^3/ul (0.83-4.51); Lymphocyte % 21.4 % (19-41); Mean Corp Hgb Conc 33.6 g/dL (32-36); Mean Corpuscular Hgb 29.5 pg (27.0-32.0); Mean Corpuscular Volume 87.6 fL (81-99); Mean Platelet Vol. 11.1 fl (6.2-12.0); Monocyte# 0.62 X10^3/uL; Monocyte% 7.1 % (0-10); NRBC Flagged by Analyzer 0 % (0-5); Neutrophil % 69.5 % (47-70); Platelet Count 251 K/mm3 (150-450); RBC Distribution Width CV 12.7 % (11.6-14.6); RBC Distribution Width SD 41.1 fl (35.1-43.9); Red Blood Count 3.63 M/mm3 (4.2-5.4); White Blood Count 8.8 K/mm3 (4.4-11.0)
[2021-02-02 10:31] LABS: Anion Gap 6 (5-15); BUN 12 mg/dL (7-18); Calcium,Total 9.4 mg/dL (8.5-10.1); Chloride 101 mmol/L (98-107); Creatinine, Serum 0.71 mg/dL (0.55-1.02); EST Glomerular Filtration Rate 92 mL/min (>60); Est Glom Filt Rate - Afr Amer 111 mL/min (>60); Glucose 268 mg/dL (74-106); Potassium 3.8 mmol/L (3.5-5.1); Sodium Level 135 mmol/L (136-145)
== END ==
DX: D64.9 Anemia, unspecified (principal); R19.7 Diarrhea, unspecified
CPT/HCPCS: 36415; 80048; 85025

== ENCOUNTER → 2021-11-07 | Outpatient (CLI) | payer MEDICAID, SELFPAY ==
[2021-11-07 10:54] LABS: Anion Gap 5 (5-15); BUN 11 mg/dL (7-18); BUN/Creat Ratio 21.2 RATIO (10-20); Calcium,Total 8.9 mg/dL (8.5-10.1); Chloride 101 mmol/L (98-107); Creatinine, Serum 0.52 mg/dL (0.55-1.02); EST Glomerular Filtration Rate 130 mL/min (>60); Est Glom Filt Rate - Afr Amer 158 mL/min (>60); Glucose 157 mg/dL (74-106); Potassium 3.6 mmol/L (3.5-5.1); Sodium Level 137 mmol/L (136-145)
[2021-11-07 10:57] LABS: Hemoglobin A1c 11.8 % (3.8-5.6)
== END | disposition home or self-care (01) ==
PROVIDERS: Visit Provider Nurse Practitioner Adult Health
DX: E11.65 Type 2 diabetes mellitus with hyperglycemia (principal)
CPT/HCPCS: 36415; 80048; 83036

== ENCOUNTER 2021-11-15 13:00 | Outpatient (RCR) | payer MEDICAID, SELFPAY | END 2021-11-15 23:59 | LOC: DC 13:00 | PROVIDERS: PCP Nurse Practitioner Adult Health; Referring Provider Nurse Practitioner Adult Health; Visit Provider Nurse Practitioner Adult Health | DX: E11.65 Type 2 diabetes mellitus with hyperglycemia (principal); R19.7 Diarrhea, unspecified; R63.4 Abnormal weight loss | CPT/HCPCS: 97802; G0108 ==

== ENCOUNTER 2021-11-30 12:48 | Outpatient (RCR) | payer MEDICAID, SELFPAY | END 2021-12-15 23:59 | LOC: DC 12:48 | PROVIDERS: Referring Provider Nurse Practitioner Adult Health; Visit Provider Nurse Practitioner Adult Health | DX: E11.65 Type 2 diabetes mellitus with hyperglycemia (principal); R19.7 Diarrhea, unspecified; R63.4 Abnormal weight loss | CPT/HCPCS: G0108 ==

== ENCOUNTER 2021-12-27 13:30 | Outpatient (RCR) | payer MEDICAID, SELFPAY | END 2022-01-15 23:59 | LOC: DC 13:30 | PROVIDERS: PCP Nurse Practitioner Adult Health; Referring Provider Nurse Practitioner Adult Health; Visit Provider Nurse Practitioner Adult Health | DX: E11.65 Type 2 diabetes mellitus with hyperglycemia (principal); R19.7 Diarrhea, unspecified; R63.4 Abnormal weight loss | CPT/HCPCS: 97803; G0108 ==

== ENCOUNTER → 2022-03-21 | Outpatient (CLI) | payer MEDICAID, SELFPAY ==
[2022-03-21 09:51] LABS: Vitamin D,25 Hydroxy 19.2 ng/mL
[2022-03-21 10:06] LABS: ALB/GLOB Ratio 0.6 RATIO (0.9-2.4); AST(SGOT) 10 U/L (15-37); Alanine Aminotransfer ALT/SGPT 25 U/L (13-56); Albumin, Serum 3.1 g/dL (3.2-5.0); Alkaline Phosphatase 136 U/L (45-117); Anion Gap 6 (5-15); BUN 7 mg/dL (7-18); BUN/Creat Ratio 11.1 RATIO (10-20); Calcium,Total 9.3 mg/dL (8.5-10.1); Chloride 100 mmol/L (98-107); Cholesterol 177 mg/dL (200); Creatinine, Serum 0.63 mg/dL (0.55-1.02); EST Glomerular Filtration Rate 103 mL/min (>60); Est Glom Filt Rate - Afr Amer 125 mL/min (>60); Globulin 4.9 g/dL (2.2-4.2); Glucose 200 mg/dL (74-106); High Density Lipoprotein 83 mg/dL; Potassium 3.9 mmol/L (3.5-5.1); Sodium Level 135 mmol/L (136-145); Thyroid Stim Hormone (TSH) 0.68 uIU/mL (0.358-3.74); Triglycerides 116 mg/dL; Very Low Density Lipoprotein 23 mg/dL (5-40)
== END | disposition home or self-care (01) ==
LOC: LAB 08:54
PROVIDERS: Referring Provider Nurse Practitioner Family; Visit Provider Nurse Practitioner Family
DX: E11.9 Type 2 diabetes mellitus without complications (principal); E55.9 Vitamin D deficiency, unspecified
CPT/HCPCS: 36415; 80053; 80061; 82306; 84443

== ENCOUNTER 2022-05-31 01:07 | Emergency (ER) | payer MEDICAID, SELFPAY ==
[2022-05-31] VITALS (7 sets, daily range): BP systolic 93–142; BP diastolic 54–74; PULSE 94–115; RESP 13–18; TEMP 36.6–37.5; O2SAT 98–100; BMI 18.2
--- NOTE | 2022-05-31 01:28 | RAD_ITS ---
EXAM: XR RIGHT FOOT COMPLETE, 3 OR MORE VIEWS CLINICAL INDICATION: infection infection. MULTIPLE WOUNDS TO RT FOOT LARGE BLACKENED WOUND DORSAL RT FOOT OVER METATARSALS, WOUND ALONG LATERAL ASPECT OF 5TH METATARSAL, AND WOUND ALONG MEDIAL ASPECT OF TARSALS TECHNIQUE: Frontal, lateral and oblique views of the right foot. This report was created using [employer] report generation technology. COMPARISON: None. FINDINGS: BONES/JOINTS: There are lateral cortical erosions of the proximal fifth metatarsal suspicious for active bone destruction due to osteomyelitis. There is a posterior calcaneal enthesophyte. An apparent moth-eaten appearance of other osseous structures may represent an artifact due to overlying soft tissue air or may represent additional bone destruction. No acute fracture. No subluxation. Normal alignment. Preservation of the joint space. SOFT TISSUES: There is soft tissue emphysema and foot and visualized ankle which may represent air treated by an open wound or necrotizing fasciitis. No radiopaque foreign body. RAD/Foot min 3 Views IMPRESSION: 1. There is soft tissue emphysema and foot and visualized ankle which may represent air entry through open wound or necrotizing fasciitis. 2. Strongly suspect osteomyelitis of the proximal fifth metatarsal. Cannot exclude osteomyelitis of additional adjacent osseous structures. Consider MRI for further evaluation. Electronically Signed: Jj Ann MD at 2:19 EDT ,
--- NOTE | 2022-05-31 01:28 | EKG12_ITS ---
Test Reason : DYSRHYTHMIA Blood Pressure : / mmHG Vent. Rate : 112 BPM Atrial Rate : 112 BPM P-R Int : 122 ms QRS Dur : 078 ms QT Int : 320 ms P-R-T Axes : 065 052 064 degrees QTc Int : 436 ms Sinus tachycardia Nonspecific ST abnormality Abnormal ECG Confirmed by TRAMAINE PASTRANA, MIGUEL ([id number]), sports editor MIRIAM CAMACHO ([id number]) on 06/01/2022 7:04:02 AM Referred By: MARQUIS Confirmed By:NESSA REDD MD
--- NOTE | 2022-05-31 01:32 | EDS_ITS ---
HPI History of Present Illness Chief Complaint: Lower Extremity Injury Informant: patient and family Narrative Narrative: Patient here with daughter concerning for increasing infection right foot. She is a diabetic on oral medications. Initially noted a callus on the side of her foot 3 to 4 weeks ago noted more after she had cataract surgery. Her daughter's been monitoring it. States however over the last 2 days increasing swelling and redness over the foot now progressing up the leg. She has neuropathy therefore does not feel significant discomfort. Denies fevers or chills. Denies history of similar. 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 Denies any allergies. Has a smoker's cough. No vomiting or diarrhea. No urinary symptoms. Prior similar symptoms: No PFSH PFSH Medical History Acid reflux Diabetes Dysphagia Home Medications albuterol sulfate 90 mcg/actuation aerosol inhaler 2 puff inhalation Q4H PRN PRN Sob &/Or Wheezing 10/01/18 [History Last Taken Unknown] ergocalciferol (vitamin D2) 1,250 mcg (50,000 unit) capsule 50,000 unit PO Q7D 10/01/18 [History Last Taken Unknown] metformin 500 mg tablet,extended release 24 hr 500 mg PO BID 12/14/21 [History Last Taken Unknown] glipizide 5 mg tablet, extended release 24 hr 5 mg PO DAILY #30 tabs 03/02/22 [Rx Last Taken Unknown] cholecalciferol (vitamin D3) 1,250 mcg (50,000 unit) capsule 1,250 mcg PO QWEEK #12 caps 04/06/22 [Rx Last Taken Unknown] Allergy/AdvReac Type Severity Reaction Status Date / Time No Known Allergies Allergy Verified 05/31/22 01:14 Family History Grandmother Breast cancer Father Heart disease Hypertension Sister Thyroid disorder Aunt Thyroid disorder Other Arthritis CVA (cerebral vascular accident) Kidney disease Myocardial infarction Surgical History H/O thumb surgery history EGD with dilatation S/P appendectomy Social History Smoking Status: Current every day smoker alcohol intake: never substance use type: does not use what type of physical activity do you participate in: walking ROS ROS ED Constitutional Constitutional ED: Denies chills, fever(s) or sweats Eyes Eyes: Denies change in vision ENT ENT ED: Denies dysphagia or sore throat Cardiovascular Cardiovascular: Denies chest pain, leg edema, palpitations or racing heartbeat Respiratory/Chest Respiratory/Chest: Denies cough, dyspnea or dyspnea on exertion Gastrointestinal Gastrointestinal: Denies abdominal pain, diarrhea, nausea or vomiting Genitourinary Genitourinary ED: Denies dysuria, hematuria or urinary frequency Musculoskeletal Musculoskeletal: Denies back pain, extremity pain or neck pain Integumentary Reports rash and wounds Neurologic Neurologic: Denies headache(s), paresthesias or weakness EXAM Physical Exam Const Vital Signs: 05/31/22 01:10 05/31/22 02:12 05/31/22 03:00 Temperature 98.3 F 98 F 98.1 F Temperature Source Temporal Temporal Temporal Pulse Rate 115 H 100 102 H Respiratory Rate 18 13 15 Blood Pressure 142/60 H 94/65 93/74 Blood Pressure Mean 87 74 80 Pulse Ox 100 100 100 Oxygen Delivery Method Room Air Room Air Room Air 05/31/22 03:07 05/31/22 05:10 05/31/22 05:13 Temperature 99.5 F H Temperature Source Temporal Pulse Rate 96 97 Respiratory Rate 15 18 18 Blood Pressure 108/54 L 108/54 L Blood Pressure Mean 72 72 Pulse Ox 98 99 Oxygen Delivery Method Room Air Room Air 05/31/22 05:24 Temperature Temperature Source Pulse Rate 94 Respiratory Rate 17 Blood Pressure 108/54 L Blood Pressure Mean 72 Pulse Ox 99 Oxygen Delivery Method Positive well nourished and well developed General Appearance ED: well developed and NAD HEENT Reports moist mucous membranes normocephalic and atraumatic Eyes PERRL, EOMs intact bilaterally and conjunctivae normal General Eye ED: Yes normal appearance of both eyes Neck no lymphadenopathy and supple General: Negative for tenderness Chest Wall Chest: Negative for tenderness Resp normal respiratory effort and normal air movement Effort and Inspection: symmetric chest movement; Negative for respiratory distress Cardio regular rhythm and no murmurs Rate: tachycardic Peripheral Pulses: pulses 2+ throughout GI normal to inspection, nondistended, normoactive bowel sounds and non-tender Palpation: Negative for guarding or rebound tenderness present Back/Spine no CVA tenderness and no thoracic nor lumbar tenderness Extremity Extremity Narrative: Right lower extremity: Foot examinations 3 cm circumferential callus lateral aspect of foot: Erythema swelling extending to the dorsum up to the distal lower leg, there is peeled skin of the dorsum there is blackened eschar of the midfoot. There is no draining exudates. Capillary refills less than 3 seconds. General Extremety ED: Yes edema General Extremity: edema Neuro oriented x3 and no sensory deficits noted Sensorium / Orientation: awake and alert Skin Skin Narrative: See above MDM MDM MDM Narrative Medical decision making narrative: Interventions / MDM: Differential diagnosis: Sepsis, diabetic foot cellulitis, necrotizing fasciitis Diagnosis considered but do not suspect: N/A My EKG interpretation: Sinus rate of 112, no ST changes or T wave inversions V1 V2. No old for comparison. No chest pains. Imaging independently reviewed and interpreted by myself: 3 view x-ray right foot: Soft tissue dorsum of the foot extending to the ankle and an anterior lower leg. Right tib-fib: Soft tissue gas up to the lateral knee. Right femur: Soft tissue gas distal femur, no proximal involvement. External documents reviewed: N/A Test considered but not ordered:N/A ED course: Patient presenting tachycardic 1/4 SIRS criteria, diabetic with concerning extending cellulitis for last 2 days. Sepsis labs will be ordered along with x-ray. She will be covered with vancomycin and Zithromax. Patient's results white count 24.3. Left take acid was 1.7. CRP 287, ESR greater than 130. Sodium 125 potassium 3.2. Review of x-ray of the foot with soft tissue gas. I added clindamycin. Concerning for necrotizing fasciitis of the foot. 0210: I added clindamycin IV. Placed a page out to on-call podiatry to discuss. Patient's hemoglobin 7.2, 2 years ago was 10, patient denies rectal bleeding, Hemoccult was obtained returning negative. Type and screen was added. 0250: I spoke with podiatry Dr. Ellison, he was sent pictures of wound along with x-ray pictures through backline. He reviewed them, he is on his way in to see the ED, he request admission to medicine. I spoke with hospitalist, Dr. Enriquez for admission. Patient admitted to medical service to telemetry unit. 0415: Prior to any transports upstairs, she was seen by podiatry Dr. Ellison in the ED, reviewing the tib-fib films there is soft tissue gas up to the knee. Due to this region he cannot operate up to the knee. Recommended transfer to tertiary center. Patient and daughter would like to go to [facility]. I spoke to transfer line and orthopedist Dr. Riggs, patient is excepted to the ED for evaluation. Patient be excepted under Dr. Godwin. Patient and daughters updated. Images will be pushed up to their facility for evaluation. Re-evaluation: stable Disposition discussed with patient/family/significant other: Patient and daughter Case discussed with consulting clinician: Podiatry, Dr. Ellison, hospitalist, Dr. Enriquez, [facility], Dr. Riggs Lab Data Attestation: I reviewed the patient's lab results. Labs: Laboratory Results - last 24 hr 05/31/22 05/31/22 05/31/22 01:36 01:36 01:36 WBC 24.3 H RBC 2.53 L Hgb 7.2 L Hct 20.7 L MCV 81.8 MCH 28.5 MCHC 34.8 RDW Std Deviation 43.6 RDW Coeff of Emily 14.6 Plt Count 536 H MPV 9.5 Immature Gran % (Auto) 1.100 H Neut % (Auto) 89.1 H Lymph % (Auto) 2.5 L Alpine % (Auto) 7.0 Eos % (Auto) 0.0 Baso % (Auto) 0.3 Absolute Neuts (auto) 21.7 H Absolute Lymphs (auto) 0.61 L Nucleated RBC % 0 Differential Comment SCANNED Diff Path Review May foll Platelet Estimate MOD INC Hypochromasia 1+ ESR > 130 H PT 16.3 H INR 1.4 APTT 35.9 Sodium 125 L Potassium 3.2 L Chloride 87 L Carbon Dioxide 27.0 Anion Gap 11 BUN 30 H Creatinine 0.96 Estim Creat Clear Calc 44.32 Est GFR (MDRD) Af Amer 77 Est GFR (MDRD) Non-Af 64 BUN/Creatinine Ratio 31.1 H Glucose 392 H Lactic Acid Calcium 9.3 Total Bilirubin 0.80 AST 19 ALT 16 Alkaline Phosphatase 114 C-React Prot Ext Range 287.00 H Total Protein 7.7 Albumin 2.2 L Globulin 5.5 H Albumin/Globulin Ratio 0.4 L Blood Type Antibody Screen 05/31/22 05/31/22 01:36 02:40 WBC RBC Hgb Hct MCV MCH MCHC RDW Std Deviation RDW Coeff of Emily Plt Count MPV Immature Gran % (Auto) Neut % (Auto) Lymph % (Auto) Alpine % (Auto) Eos % (Auto) Baso % (Auto) Absolute Neuts (auto) Absolute Lymphs (auto) Nucleated RBC % Differential Comment Diff Path Review Platelet Estimate Hypochromasia ESR PT INR APTT Sodium Potassium Chloride Carbon Dioxide Anion Gap BUN Creatinine Estim Creat Clear Calc Est GFR (MDRD) Af Amer Est GFR (MDRD) Non-Af BUN/Creatinine Ratio Glucose Lactic Acid 1.7 Calcium Total Bilirubin AST ALT Alkaline Phosphatase C-React Prot Ext Range Total Protein Albumin Globulin Albumin/Globulin Ratio Blood Type A POSITIVE Antibody Screen NEGATIVE Radiography Diagnostic Testing: Clinical Impression(s) from Imaging Studies Foot X-Ray 05/31/22 01:28 IMPRESSION: 1. There is soft tissue emphysema and foot and visualized ankle which may represent air entry through open wound or necrotizing fasciitis. 2. Strongly suspect osteomyelitis of the proximal fifth metatarsal. Cannot exclude osteomyelitis of additional adjacent osseous structures. Consider MRI for further evaluation. Electronically Signed: Jj Ann MD at 2:19 EDT , Tibia/Fibula X-Ray 05/31/22 03:04 IMPRESSION: 1. Soft tissue emphysema in the ankle and calf regions may represent spread of air from an open wound or may represent necrotizing fasciitis. 2. No demonstrated fracture, dislocation, or destructive osseous lesion. Electronically Signed: Jj Ann MD at 4:47 EDT , Femur X-Ray 05/31/22 04:00 IMPRESSION: 1. Soft tissue emphysema in the visualized proximal calf and in the lateral knee region might represent air entry bilaterally or might represent necrotizing fasciitis. 2. No demonstrated fracture, dislocation, or destructive osseous lesion. Electronically Signed: Jj Ann MD at 5:05 EDT Reading Location ID and State: [facility] / [place] , Service support , Critical Care Time Critical Care Time: Yes Critical care time (excluding procedures): 30-74 minutes, Discussing w/Patient &/or Family/Environmental Communications Specialist, Discussing w/Consultants, Arranging Admission or Transfer, Performing Direct Patient Care at Bedside and - (40 minutes) Discharge Plan Triage Chief Complaint: Lower Extremity Injury ED Provider: Kee Kaye Dx/Rx/DC Orders Clinical Impression: Diabetic foot infection, Cellulitis of right foot, Necrotizing fasciitis of lower leg, Anemia Primary Care Provider: Felecia Christianson Disposition Disposition: Acute Care Hospital Discharge Location: [facility] Discharge Date/Time: 05/31/22 06:09
[2022-05-31 01:44] LABS: Absolute Lymphocyte Count 0.61 X10^3/uL (0.83-4.51); Absolute Neutrophil Count 21.7 X10^3/uL (2.0-7.7); Basophil# 0.07 X10^3/uL; Basophil% 0.3 % (0-1); Hematocrit 20.7 % (37-47); Hemoglobin 7.2 g/dL (12.0-15.0); Lymphocyte # 0.61 X10^3/ul (0.83-4.51); Lymphocyte % 2.5 % (19-41); Mean Corp Hgb Conc 34.8 g/dL (32-36); Mean Corpuscular Hgb 28.5 pg (27.0-32.0); Mean Corpuscular Volume 81.8 fL (81-99); Mean Platelet Vol. 9.5 fl (6.2-12.0); NRBC Flagged by Analyzer 0 % (0-5); Neutrophil # 21.69 X10^3/uL (2.7-7.7); Neutrophil % 89.1 % (47-70); POSITIVE DIFFERENTIAL YES; Platelet Count 536 K/mm3 (150-450); RBC Distribution Width CV 14.6 % (11.6-14.6); RBC Distribution Width SD 43.6 fl (35.1-43.9); Red Blood Count 2.53 M/mm3 (4.2-5.4); White Blood Count 24.3 K/mm3 (4.4-11.0)
[2022-05-31] MEDS: 0.9% Normal Saline 1,000 ML 999 ML IV ×2 (01:44→03:32)
[2022-05-31 01:51] LABS: Differential Indicated SCAN CRITERIA MET; Erythrocyte Sedimentation Rate > 130 mm/hr (0-30)
[2022-05-31 01:55] LABS: International Normalized Ratio 1.4; Prothrombin Time (Protime)PT. 16.3 SECONDS (11.7-14.9)
[2022-05-31 01:56] LABS: Partial Thromboplast Time 35.9 Seconds (24.1-36.2)
[2022-05-31] MEDS: Vancomycin IV 1,000 MG/200 ML BAG 200 MG IV (01:58)
[2022-05-31 02:08] LABS: Lactic Acid 1.7 mmol/L (0.4-1.9)
[2022-05-31 02:16] LABS: ALB/GLOB Ratio 0.4 RATIO (0.9-2.4); AST(SGOT) 19 U/L (15-37); Alanine Aminotransfer ALT/SGPT 16 U/L (13-56); Albumin, Serum 2.2 g/dL (3.2-5.0); Alkaline Phosphatase 114 U/L (45-117); Anion Gap 11 (5-15); BUN 30 mg/dL (7-18); BUN/Creat Ratio 31.1 RATIO (10-20); Calcium,Total 9.3 mg/dL (8.5-10.1); Chloride 87 mmol/L (98-107); Creatinine, Serum 0.96 mg/dL (0.55-1.02); EST Glomerular Filtration Rate 64 mL/min (>60); Est Glom Filt Rate - Afr Amer 77 mL/min (>60); Estimated Creatinine Clearance 44.32 ml/min; Globulin 5.5 g/dL (2.2-4.2); Glucose 392 mg/dL (74-106); Potassium 3.2 mmol/L (3.5-5.1); Protein, Total 7.7 g/dL (6.4-8.2); Sodium Level 125 mmol/L (136-145)
[2022-05-31 02:17] LABS: Differential Comment SCANNED; Hypochromasia 1+; Platelet Estimate MOD INC (ADEQ)
[2022-05-31] MEDS: Clindamycin 900 MG/50 ML BAG 75 MG IV (02:31)
--- NOTE | 2022-05-31 03:04 | RAD_ITS ---
EXAM: XR RIGHT TIBIA AND FIBULA, 2 VIEWS CLINICAL INDICATION: infection infection TECHNIQUE: Frontal and lateral views of the right tibia and fibula. This report was created using [employer] report generation technology. COMPARISON: X-ray foot done today. FINDINGS: BONES/JOINTS: Unremarkable. No acute fracture. No subluxation. Normal alignment. Preservation of the joint space. No sclerotic or destructive changes observed. SOFT TISSUES: There is prominent soft tissue emphysema in the apical region. There is also soft tissue air within the medial and lateral proximal calf.. No radiopaque foreign body. RAD/Tibia & Fibula 2 Views IMPRESSION: 1. Soft tissue emphysema in the ankle and calf regions may represent spread of air from an open wound or may represent necrotizing fasciitis. 2. No demonstrated fracture, dislocation, or destructive osseous lesion. Electronically Signed: Jj Ann MD at 4:47 EDT Reading Location ID and State: [facility] / [place] , Service support ,
--- NOTE | 2022-05-31 03:31 | HP.PCM.HOS_ITS ---
HPI - General General Date of Admission: 05/31/22 Date of Service: 05/31/22 Chief Complaint: Swelling of right foot. HPI Narrative SANJUANITA BECERRA, is a 56 F with a significant history of tobacco abuse and diabetes who presents to the emergency department with swelling of her right foot. Reportedly patient saw callus at the lateral side of her right foot about a month ago. She begun to put peroxide and Epsom salt on it. And her right foot got progressively worse. She saw black areas on her foot. Associated with her symptoms is swelling and discharge from her right foot. [facility] Medical History Acid reflux Diabetes Dysphagia Home Medications albuterol sulfate 90 mcg/actuation aerosol inhaler 2 puff inhalation Q4H PRN PRN Sob &/Or Wheezing 10/01/18 [History Last Taken Unknown] ergocalciferol (vitamin D2) 1,250 mcg (50,000 unit) capsule 50,000 unit PO Q7D 10/01/18 [History Last Taken Unknown] metformin 500 mg tablet,extended release 24 hr 500 mg PO BID 12/14/21 [History Last Taken Unknown] glipizide 5 mg tablet, extended release 24 hr 5 mg PO DAILY #30 tabs 03/02/22 [Rx Last Taken Unknown] cholecalciferol (vitamin D3) 1,250 mcg (50,000 unit) capsule 1,250 mcg PO QWEEK #12 caps 04/06/22 [Rx Last Taken Unknown] Allergy/AdvReac Type Severity Reaction Status Date / Time No Known Allergies Allergy Verified 05/31/22 01:14 Family History Grandmother Breast cancer Father Heart disease Hypertension Sister Thyroid disorder Aunt Thyroid disorder Other Arthritis CVA (cerebral vascular accident) Kidney disease Myocardial infarction Surgical History H/O thumb surgery history EGD with dilatation S/P appendectomy Social History Smoking Status: Current every day smoker tobacco type: cigarettes alcohol intake: never substance use type: does not use what type of physical activity do you participate in: walking ROS ROS Narrative Pertinent positives and pertinent negatives as noted in HPI. All other systems were reviewed and are negative Vital Signs Vital Signs Vital Signs: 05/31/22 01:10 05/31/22 02:12 05/31/22 03:00 Temperature 98.3 F 98 F 98.1 F Temperature Source Temporal Temporal Temporal Pulse Rate 115 H 100 102 H Respiratory Rate 18 13 15 Blood Pressure 142/60 H 94/65 93/74 Blood Pressure Mean 87 74 80 Pulse Ox 100 100 100 Oxygen Delivery Method Room Air Room Air Room Air 05/31/22 03:07 Temperature Temperature Source Pulse Rate Respiratory Rate 15 Blood Pressure Blood Pressure Mean Pulse Ox Oxygen Delivery Method Weight Weight: 42.4 kg Body Mass Index (BMI) 18.2 Physical Exam Narrative Physical exam: General: Well-nourished, well-developed. Head: Normocephalic, atraumatic, no tenderness Eyes: Vision is grossly intact. EOMI ENT, no trauma, moist mucous membranes, no rhinorrhea Neck: Nontender, No thyromegaly. CVS: Regular rate and rhythm. S1-S2 present. No murmur, gallop or rub. Respiratory : clear to auscultation bilaterally, chest wall nontender, no wheezing Abdomen: Soft, nontender, nondistended, normal bowel sounds, no masses : Deferred Back: Nontender, no CVA tenderness, no midline spinal tenderness, deformities, step-offs Extremities: Positive drainage from right foot. Strain of right foot. Erythema of right foot extending to lower leg. Nontender full range of motion, no trauma Skin: Normal color, no trauma, abrasions Neuro: Alert, oriented, cranial nerves II through XII grossly intact. Psychiatry: Normal mood. Normal affect. Not depressed. Not anxious. Results Lab / Micro Data Result Diagrams: 05/31/22 01:36 05/31/22 01:36 Labs: Laboratory Results - last 24 hr 05/31/22 01:36: WBC 24.3 H, RBC 2.53 L, Hgb 7.2 L, Hct 20.7 L, MCV 81.8, MCH 28.5, MCHC 34.8, RDW Std Deviation 43.6, RDW Coeff of Emily 14.6, Plt Count 536 H, MPV 9.5, Immature Gran % (Auto) 1.100 H, Neut % (Auto) 89.1 H, Lymph % (Auto) 2.5 L, Marin % (Auto) 7.0, Eos % (Auto) 0.0, Baso % (Auto) 0.3, Absolute Neuts (auto) 21.7 H, Absolute Lymphs (auto) 0.61 L, Nucleated RBC % 0, Differential Comment SCANNED, Diff Path Review May foll, Platelet Estimate MOD INC, Hypochromasia 1+, ESR > 130 H 05/31/22 01:36: PT 16.3 H, INR 1.4, APTT 35.9 05/31/22 01:36: Sodium 125 L, Potassium 3.2 L, Chloride 87 L, Carbon Dioxide 27.0, Anion Gap 11, BUN 30 H, Creatinine 0.96, Estim Creat Clear Calc 44.32, Est GFR (MDRD) Af Amer 77, Est GFR (MDRD) Non-Af 64, BUN/Creatinine Ratio 31.1 H, Glucose 392 H, Calcium 9.3, Total Bilirubin 0.80, AST 19, ALT 16, Alkaline Phosphatase 114, C-React Prot Ext Range 287.00 H, Total Protein 7.7, Albumin 2.2 L, Globulin 5.5 H, Albumin/Globulin Ratio 0.4 L 05/31/22 01:36: Lactic Acid 1.7 Micro: Microbiology 05/31/22 02:40 Nasal Secretion SARS-CoV-2 Antigen (Rapid) - Final 05/31/22 02:17 Stool Stool Occult Blood (MARINA) - Final Radiology Impression Foot X-Ray 05/31/22 01:28 IMPRESSION: 1. There is soft tissue emphysema and foot and visualized ankle which may represent air entry through open wound or necrotizing fasciitis. 2. Strongly suspect osteomyelitis of the proximal fifth metatarsal. Cannot exclude osteomyelitis of additional adjacent osseous structures. Consider MRI for further evaluation. Electronically Signed: Jj Ann MD at 2:19 EDT ,
--- NOTE | 2022-05-31 04:00 | RAD_ITS ---
EXAM: XR RIGHT FEMUR, 2 VIEWS CLINICAL INDICATION: infection infection TECHNIQUE: Frontal and lateral views of the right femur. This report was created using [employer] report generation technology. COMPARISON: X-ray foot and x-ray tibia and fibula done today. FINDINGS: BONES/JOINTS: Unremarkable. No acute fracture. No subluxation. Normal alignment. Preservation of the joint space. No sclerotic or destructive changes observed. SOFT TISSUES: There is soft tissue emphysema in the visualized calf in the region. No soft tissue swelling or gas. No radiopaque foreign body. RAD/Femur Min 2 Views IMPRESSION: 1. Soft tissue emphysema in the visualized proximal calf and in the lateral knee region might represent air entry bilaterally or might represent necrotizing fasciitis. 2. No demonstrated fracture, dislocation, or destructive osseous lesion. Electronically Signed: Jj Ann MD at 5:05 EDT Reading Location ID and State: [facility] / [place] , Service support ,
--- NOTE | 2022-05-31 04:00 | PCM.PN.BLA ---
Progress Note Patient was seen by podiatry and a transfer to a tertiary center was recommended. Admission will be cancelled.
--- NOTE | 2022-05-31 04:10 | CON.PCM_ITS ---
Assessment & Plan Assessment/Plan (1) Gas gangrene: PLAN: Exam performed. Radiographs demonstrate diffuse subcutaneous emphysema at the dorsal foot and ankle extending into the knee proximally. Femoral radiographs ordered to rule out any further proximal spread. Patient has some tachycardia with elevated white count of 24.3. Lab results demonstrate results white count 24.3.? Lactic acid was 1.7.? CRP 287, ESR greater than 130.? Patient was started on triple antibiotic antibiotic therapy in the ER. I discussed in great detail the risk of the type of infection with the patient and her family. It was a severe acute gas infection that is threatening the patient's limb and life. I discussed the urgency of treatment for this issue. Due to extent of subcutaneous emphysema extending into the leg proximally at the knee. I have recommended transfer for this patient as she requires treatment that is obscure side of my scope of practice. Patient will likely require BKA versus AKA pending evaluation upon transfer. Again this was all discussed with the patient's family. Patient to be transferred likely to [facility] due to extent of infection. (2) Diabetic foot infection: (3) Cellulitis of right foot: (4) Necrotizing fasciitis of lower leg: HPI Consult Data Date of Consult: 05/31/22 HPI Narrative HPI Narrative: SANJUANITA BECERRA, is a 56 F who presents with a severe right lower extremity gas infection. Patient has a type II diabetic with a self-reported recent A1c of greater than 7. Patient noticed a callus to the outside of her right foot present for approximately 1 month. Over the past week she has noticed increased swelling redness to her right foot with darkening to the dorsal foot and medial ankle. Patient denies any constitutional symptoms today but presented due to concern for the darkening of the tissue the amount of swelling and redness to the site. Patient is comfortable and has some pain to the infection site. Patient has no other complaints at this time. [facility] Medical History Acid reflux Diabetes Dysphagia Home Medications albuterol sulfate 90 mcg/actuation aerosol inhaler 2 puff inhalation Q4H PRN PRN Sob &/Or Wheezing 10/01/18 [History Last Taken Unknown] ergocalciferol (vitamin D2) 1,250 mcg (50,000 unit) capsule 50,000 unit PO Q7D 10/01/18 [History Last Taken Unknown] metformin 500 mg tablet,extended release 24 hr 500 mg PO BID 12/14/21 [History Last Taken Unknown] glipizide 5 mg tablet, extended release 24 hr 5 mg PO DAILY #30 tabs 03/02/22 [Rx Last Taken Unknown] cholecalciferol (vitamin D3) 1,250 mcg (50,000 unit) capsule 1,250 mcg PO QWEEK #12 caps 04/06/22 [Rx Last Taken Unknown] Allergy/AdvReac Type Severity Reaction Status Date / Time No Known Allergies Allergy Verified 05/31/22 01:14 Family History Grandmother Breast cancer Father Heart disease Hypertension Sister Thyroid disorder Aunt Thyroid disorder Other Arthritis CVA (cerebral vascular accident) Kidney disease Myocardial infarction Surgical History H/O thumb surgery history EGD with dilatation S/P appendectomy Social History Smoking Status: Current every day smoker tobacco type: cigarettes alcohol intake: never substance use type: does not use what type of physical activity do you participate in: walking ROS Constitutional Constitutional: Denies frequent falls, headache(s) or increased appetite Eyes Eyes: Denies change in vision, foreign body or periorbital itching ENT HEENT: Denies ear pain, nasal congestion or sore throat Cardiovascular Cardiovascular: Denies bluish discoloration of hand/feet, chest pain or dyspnea on exertion Respiratory/Chest Respiratory/Chest: Denies difficulty clearing secretions, dry cough or non-rest sleep EDS Gastrointestinal Gastrointestinal: Denies chewing difficulty, coffee ground emesis or hematochezia Genitourinary Genitourinary: Denies difficulty urinating, dysuria or genital pain Musculoskeletal Musculoskeletal: Reports joint stiffness, joint swelling and tingling Integumentary Integumentary: Reports wounds; Denies furuncle Physical Exam Narrative Patient AOx3. Vascular: Diffuse edema to right lower extremity with crepitus upon palpation. There are blanchable digits noted. Pulses palpable 2 out of 4 to bilateral lower extremities. No edema noted to left lower extremity. Neurologic: Light touch protective sensation absent to bilateral feet. Dermatologic: Full-thickness wound noted to the lateral fifth metatarsal base on the right lower extremity. Diffuse periwound erythema edema and warmth extending into the proximal ankle. There is noted to be an area of necrosis to the dorsal midfoot and medial right ankle. Upon palpation into the proximal leg there is noted to be warmth and edema extending into the knee region with diffuse crepitus extending from the foot distal leg into the knee approximately. Musculoskeletal: No gross deformities noted. Const alert and oriented x3 Lab / Micro Data Result Diagrams: 05/31/22 01:36 05/31/22 01:36 Labs: Laboratory Results - last 24 hr 05/31/22 01:36: WBC 24.3 H, RBC 2.53 L, Hgb 7.2 L, Hct 20.7 L, MCV 81.8, MCH 28.5, MCHC 34.8, RDW Std Deviation 43.6, RDW Coeff of Emily 14.6, Plt Count 536 H, MPV 9.5, Immature Gran % (Auto) 1.100 H, Neut % (Auto) 89.1 H, Lymph % (Auto) 2.5 L, Emery % (Auto) 7.0, Eos % (Auto) 0.0, Baso % (Auto) 0.3, Absolute Neuts (auto) 21.7 H, Absolute Lymphs (auto) 0.61 L, Nucleated RBC % 0, Differential Comment SCANNED, Diff Path Review May , Platelet Estimate MOD INC, Hypochromasia 1+, ESR > 130 H 05/31/22 01:36: PT 16.3 H, INR 1.4, APTT 35.9 05/31/22 01:36: Sodium 125 L, Potassium 3.2 L, Chloride 87 L, Carbon Dioxide 27.0, Anion Gap 11, BUN 30 H, Creatinine 0.96, Estim Creat Clear Calc 44.32, Est GFR (MDRD) Af Amer 77, Est GFR (MDRD) Non-Af 64, BUN/Creatinine Ratio 31.1 H, Glucose 392 H, Calcium 9.3, Total Bilirubin 0.80, AST 19, ALT 16, Alkaline Phosphatase 114, C-React Prot Ext Range 287.00 H, Total Protein 7.7, Albumin 2.2 L, Globulin 5.5 H, Albumin/Globulin Ratio 0.4 L 05/31/22 01:36: Lactic Acid 1.7 05/31/22 02:40: Blood Type A POSITIVE, Antibody Screen NEGATIVE Micro: Microbiology 05/31/22 02:40 Nasal Secretion SARS-CoV-2 Antigen (Rapid) - Final 05/31/22 02:17 Stool Stool Occult Blood (MARINA) - Final Radiology Impression Foot X-Ray 05/31/22 01:28 IMPRESSION: 1. There is soft tissue emphysema and foot and visualized ankle which may represent air entry through open wound or necrotizing fasciitis. 2. Strongly suspect osteomyelitis of the proximal fifth metatarsal. Cannot exclude osteomyelitis of additional adjacent osseous structures. Consider MRI for further evaluation. Electronically Signed: jJ Ann MD at 2:19 EDT Reading Location ID and State: [facility] / [place] , Service support ,
--- NOTE | 2022-05-31 04:31 | ED.RN ---
Report given to Yamileth FOWLER.
[2022-05-31 12:16] LABS: Pathologist Review Reviewed
--- NOTE | 2022-05-31 17:11 | ED.RN ---
THIS RN CONTACTED JANETH HDEZ AT [facility]. INFORMED HIM OF PRELIMINARY BLOOD CULTURE RESULTS.
== END 2022-05-31 06:09 | disposition short-term general hospital (02) ==
PROVIDERS: Emergency Provider Emergency Medicine; PCP Nurse Practitioner Adult Health; Visit Provider Emergency Medicine
DX: L03.115 Cellulitis of right lower limb (principal); M72.6 Necrotizing fasciitis; E11.9 Type 2 diabetes mellitus without complications; D64.9 Anemia, unspecified; F17.200 Nicotine dependence, unspecified, uncomplicated; Z79.84 Long term (current) use of oral hypoglycemic drugs
CPT/HCPCS: 73552; 73590; 73630; 80053; 82274; 83605; 85025; 85610; 85652; 85730; 86140; 86850; 86900; 86901; 87040; 87077; 87149; 87186; 87811; 93005; 96365; 96366; 96367; 99285; J7030; J7050

== ENCOUNTER → 2022-07-31 | Outpatient (CLI) | payer MEDICAID, SELFPAY ==
[2022-07-31 09:50] LABS: Hemoglobin 12.1 g/dL (12.0-15.0); Mean Corp Hgb Conc 34.6 g/dL (32-36); Mean Corpuscular Hgb 30.3 pg (27.0-32.0); Mean Corpuscular Volume 87.7 fL (81-99); Platelet Count 186 K/mm3 (150-450); RBC Distribution Width CV 13.8 % (11.6-14.6); RBC Distribution Width SD 44.4 fl (35.1-43.9); Red Blood Count 3.99 M/mm3 (4.2-5.4); White Blood Count 8.9 K/mm3 (4.4-11.0)
[2022-07-31 10:14] LABS: Vitamin D,25 Hydroxy 65.2 ng/mL
[2022-07-31 10:17] LABS: ALB/GLOB Ratio 0.7 RATIO (0.9-2.4); AST(SGOT) 14 U/L (15-37); Alanine Aminotransfer ALT/SGPT 15 U/L (13-56); Alkaline Phosphatase 179 U/L (45-117); Anion Gap 10 (5-15); BUN 13 mg/dL (7-18); BUN/Creat Ratio 16.3 RATIO (10-20); Calcium,Total 9.1 mg/dL (8.5-10.1); Chloride 103 mmol/L (98-107); EST Glomerular Filtration Rate 79 mL/min (>60); Est Glom Filt Rate - Afr Amer 96 mL/min (>60); Globulin 4.5 g/dL (2.2-4.2); Glucose 245 mg/dL (74-106); Potassium 2.9 mmol/L (3.5-5.1); Protein, Total 7.5 g/dL (6.4-8.2); Sodium Level 138 mmol/L (136-145)
== END | disposition home or self-care (01) ==
LOC: LAB 09:15
PROVIDERS: PCP Nurse Practitioner Family; Visit Provider Nurse Practitioner Family
DX: E11.65 Type 2 diabetes mellitus with hyperglycemia (principal); E55.9 Vitamin D deficiency, unspecified
CPT/HCPCS: 36415; 80053; 82043; 82306; 83036; 85027

== ENCOUNTER → 2022-09-20 | Outpatient (CLI) | payer MEDICAID, SELFPAY ==
[2022-09-20 11:29] LABS: ALB/GLOB Ratio 0.8 RATIO (0.9-2.4); AST(SGOT) 14 U/L (15-37); Alanine Aminotransfer ALT/SGPT 18 U/L (13-56); Albumin, Serum 3.1 g/dL (3.2-5.0); Alkaline Phosphatase 108 U/L (45-117); Anion Gap 4 (5-15); BUN 10 mg/dL (7-18); BUN/Creat Ratio 14.1 RATIO (10-20); Calcium,Total 9.2 mg/dL (8.5-10.1); Chloride 101 mmol/L (98-107); Creatinine, Serum 0.71 mg/dL (0.55-1.02); EST Glomerular Filtration Rate 91 mL/min (>60); Est Glom Filt Rate - Afr Amer 110 mL/min (>60); Glucose 266 mg/dL (74-106); Potassium 3.6 mmol/L (3.5-5.1); Protein, Total 7.1 g/dL (6.4-8.2); Sodium Level 136 mmol/L (136-145)
== END | disposition home or self-care (01) ==
LOC: LAB 09:58
PROVIDERS: Nurse Practitioner Family
DX: E87.6 Hypokalemia (principal)
CPT/HCPCS: 36415; 80053

== ENCOUNTER 2023-02-16 13:20 | Emergency (ER) | payer MEDICAID, SELFPAY ==
[2023-02-16 13:21] VITALS: BP 140/75; PULSE 91; RESP 16; TEMP 36.4; O2SAT 100; BMI 20.9
--- NOTE | 2023-02-16 13:41 | EDS_ITS ---
HPI History of Present Illness Chief Complaint: Wound Detail of Chief Complaint: Wound to her right lower extremity Informant: patient Narrative Narrative: Patient presents to the emergency department with a wound that she noted to her right lower extremity 5 days ago. 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 Patient started working in November and has been using her prosthesis more. Patient denies fevers or chills or sweats. [facility] Medical History (Updated 02/16/23 @ 14:[address] Cassidy Mendez, DO) Acid reflux Below knee amputation Diabetes Dysphagia Home Medications albuterol sulfate 90 mcg/actuation aerosol inhaler 2 puff inhalation Q4H PRN PRN Sob &/Or Wheezing 10/01/18 [History Last Taken Unknown] metformin 500 mg tablet,extended release 24 hr 500 mg PO BID 12/14/21 [History Last Taken Unknown] amlodipine 5 mg tablet 5 mg PO DAILY 09/20/22 [History Last Taken Unknown] cholecalciferol (vitamin D3) 25 mcg (1,000 unit) capsule 25 mcg PO DAILY 09/20/22 [History Last Taken Unknown] dapagliflozin propanediol 10 mg tablet (Farxiga) 10 mg PO DAILY 09/20/22 [History Last Taken Unknown] ferrous fumarate 325 mg (106 mg iron) tablet 325 mg PO DAILY 09/20/22 [History Last Taken Unknown] lisinopril 40 mg tablet 40 mg PO DAILY 09/20/22 [History Last Taken Unknown] pantoprazole 40 mg tablet,delayed release 40 mg PO DAILY 09/20/22 [History Last Taken Unknown] potassium chloride 20 mEq tablet,extended release(part/cryst) 20 meq PO BID 09/20/22 [History Last Taken Unknown] glipizide 5 mg tablet, extended release 24 hr 5 mg PO DAILY #30 tabs 09/24/22 [Rx Last Taken Unknown] OneTouch Verio test strips (blood sugar diagnostic) #100 ea 11/06/22 [Rx Last Taken Unknown] atorvastatin 10 mg tablet 5 mg PO DAILY 11/21/22 [History Last Taken Unknown] cephalexin 500 mg capsule 500 mg PO Q6 #40 CAPSULES 02/16/23 [Rx Last Taken U nknown] Allergy/AdvReac Type Severity Reaction Status Date / Time No Known Allergies Allergy Verified 02/16/23 13:38 Family History Grandmother Breast cancer Father Heart disease Hypertension Sister Thyroid disorder Aunt Thyroid disorder Other Arthritis CVA (cerebral vascular accident) Kidney disease Myocardial infarction Surgical History H/O thumb surgery history EGD with dilatation S/P appendectomy Social History Smoking Status: Current every day smoker tobacco type: cigarettes alcohol intake: never substance use type: does not use what type of physical activity do you participate in: walking ROS ROS ED Review of Systems ROS Unobtainable: other Constitutional Constitutional ED: Reports lethargy; Denies chills, fever(s), sweats or weight loss Eyes Eyes: Denies blurry vision, change in vision or diplopia ENT ENT ED: Denies rhinorrhea or sore throat Cardiovascular Cardiovascular: Denies chest pain, orthopnea or racing heartbeat Respiratory/Chest Respiratory/Chest: Denies cough, dyspnea, dyspnea on exertion, orthopnea or sputum Gastrointestinal Gastrointestinal: Denies abdominal pain, diarrhea, nausea or vomiting Genitourinary Genitourinary ED: Denies dysuria, hematuria or urinary frequency Musculoskeletal Musculoskeletal: Denies arthralgias, back pain, myalgias or neck pain Integumentary Reports other Details: Wound right lower extremity ; Denies abscess, Abrasions or rash Neurologic Neurologic: Denies headache(s) or weakness Psychiatric Psychiatric: Denies anxiety, depression or suicidal thoughts Endocrine Endocrinology: Denies polydipsia, polyphagia or polyuria Hematologic/Lymphatic Hematologic/Lymphatic: Denies easy bleeding, easy bruising or lymphadenopathy Allergic/Immunologic Allergic/Immunologic ED: Denies mouth swelling, tongue swelling or urticaria EXAM Physical Exam Const Vital Signs: 02/16/23 13:21 Temperature 97.6 F L Temperature Source Temporal Pulse Rate 91 Respiratory Rate 16 Blood Pressure 140/75 H Blood Pressure Mean 96 Pulse Ox 100 Oxygen Delivery Method Room Air Positive well nourished and well developed General Appearance ED: well developed and NAD HEENT Reports TM's clear and moist mucous membranes normocephalic and atraumatic; Negative for trauma or tenderness Tympanic Membrane ED: Yes TM's clear Eyes PERRL and EOMs intact bilaterally General Eye ED: Negative for pale conjunctiva or scleral icterus Neck no lymphadenopathy, supple and no JVD General: Negative for tenderness Chest Wall inspection of chest normal and palpation of chest normal Chest: Negative for tenderness Resp normal respiratory effort and clear to auscultation bilaterally Effort and Inspection: Negative for respiratory distress or pain with movement Auscultation: Negative for rhonchi, wheezes or diminished lung sounds Cardio regular rate, regular rhythm, S1 normal heart sound, S2 normal heart sound and no murmurs Peripheral Pulses: pulses 2+ throughout GI normal to inspection, nondistended, normoactive bowel sounds, soft to palpation, non-tender, non-distended and no masses Back/Spine no CVA tenderness and no thoracic nor lumbar tenderness Extremity Extremity Narrative: Right lower extremity-patient has a right below the knee amputation noted. She has a small pressure-like abrasion to the anterior aspect of the distal portion of the stump. Mild soft tissue swelling and bogginess noted. Minimal erythema and no significant cellulitic changes noted. General Extremety ED: Negative for edema General Extremity: Negative for edema Neuro oriented x3, CN's II-XII intact bilaterally, no sensory deficits noted and gait normal Sensorium / Orientation: awake, alert, oriented to person, oriented to place and oriented to time Motor Exam: strength 5/5 throughout and strength abnormal Psych mental status grossly normal Skin no rashes or lesions noted and no wounds MDM MDM MDM Narrative Medical decision making narrative: Patient presents with a wound to her right lower extremity I believe likely from her prosthesis pressure-point. Recommended she follow-up with the prosthesis maker to evaluate for possible modification. I recommended that she try to minimize use of the prosthesis to allow the pressure wound to heal. I will cover her with Keflex as I am worried about potential for development of a cellulitic component. Patient had x-rays of the right knee and I do not appreciate any gas within the tissues or lytic lesions to indicate osteomyelitis. Patient advised to follow-up with her primary care physician within next 3 to 5 days. Patient tells me she has a walker at home that she can use to get around with. Discharge Plan Triage Chief Complaint: Wound ED Provider: Cassidy Mendez Dx/Rx/DC Orders Clinical Impression: Leg wound, right Instructions: Pressure Injury Dc Prescriptions: New cephalexin [cephalexin] 500 mg capsule 500 mg PO Q6 Qty: 40 0RF No Action metformin 500 mg tablet extended release 24 hr 500 mg PO BID amlodipine 5 mg tablet 5 mg PO DAILY potassium chloride 20 mEq tablet,ER particles/crystals 20 meq PO BID pantoprazole 40 mg tablet,delayed release (DR/EC) 40 mg PO DAILY lisinopril 40 mg tablet 40 mg PO DAILY cholecalciferol (vitamin D3) 25 mcg (1,000 unit) capsule 25 mcg PO DAILY ferrous fumarate 325 mg (106 mg iron) tablet 325 mg PO DAILY Farxiga 10 mg tablet 10 mg PO DAILY atorvastatin 10 mg tablet 5 mg PO DAILY albuterol sulfate 1 PUFF inhaler 2 puff inhalation Q4H PRN PRN (Reason: Sob &/Or Wheezing) glipizide 5 mg tablet extended release 24hr 5 mg PO DAILY Qty: 30 5RF (DME) OneTouch Verio test strips Strip See Rx Instructions .Route Qty: 100 6RF Rx Instructions: twice a day Primary Care Provider: Medical Jocelyn Andrews Referrals: [facility] Jocelyn Andrews [Primary Care Provider] - 3-5 Days Disposition Disposition: Home, Self Care
--- NOTE | 2023-02-16 13:56 | RAD_ITS ---
EXAM: XR RIGHT KNEE, 1 OR 2 VIEWS CLINICAL INDICATION: pain, wound TECHNIQUE: Frontal and/or lateral views of the right knee. COMPARISON: 05/31/2022. FINDINGS: BONES/JOINTS: Interval amputation below the knee. No acute fracture. No subluxation. Normal alignment. Preservation of the joint space. No sclerotic or destructive changes observed. No suspicious osteomyelitis of the proximal tibia and fibula. SOFT TISSUES: Soft tissue swelling of the stump. No radiopaque foreign body. RAD/Knee 1 or 2 Views IMPRESSION: Soft tissue swelling of the stump following [id number] amputation and no suspicious acute osseous abnormality or osteomyelitis. Electronically Signed: Mickey Giles MD at 14:42 EST ,
== END 2023-02-16 14:56 | disposition home or self-care (01) ==
PROVIDERS: Emergency Provider Emergency Medicine; Referring Provider Emergency Medicine; Visit Provider Emergency Medicine
DX: S81.801A Unspecified open wound, right lower leg, initial encounter (principal); E11.9 Type 2 diabetes mellitus without complications; F17.210 Nicotine dependence, cigarettes, uncomplicated; X58.XXXA Exposure to other specified factors, initial encounter
CPT/HCPCS: 73560; 99282

== ENCOUNTER 2023-02-26 08:40 | Inpatient (IN) | payer MEDICAID, SELFPAY ==
[2023-02-26] VITALS (7 sets, daily range): BP systolic 107–147; BP diastolic 58–97; PULSE 86–110; RESP 15–21; TEMP 36.2–37.3; O2SAT 98–100; BMI 19.1; BMI 19.3
--- NOTE | 2023-02-26 08:58 | ED.VIS.LOWEX ---
HPI History of Present Illness Chief Complaint: Wound Detail of Chief Complaint: Wound BKA stump site right lower extremity Informant: patient Occured/Mechanism Comment: Patient was seen February 16 for pressure sore stump site. She was instructed to stay off it is much as possible. She presents because there was redness with what sounds like an eschar left BKA stump site. This morning there was a break in the skin with drainage of fluid and redness around the area. Onset/Context/Timing Onset: Yesterday Context: Sudden Onset Timing: Continuous Location: Ache Maximum Severity: Moderate Worsened by: Palpation of the area or wearing her prosthesis Relieved by: Nothing Associated Symptoms Associated Symptoms: Negative for Parasthesia or Weakness Narrative Narrative: Patient is a 57-year-old woman with history of type 2 diabetes, hypertension, hypercholesterolemia and lung problems who was seen approximately 10 days ago for pressure sore right BKA stump site. She was told to not wear the prosthesis or bear weight as much as possible. Patient states this is very difficult since her apartment is small and does not accommodate a wheelchair. She also has to go to work. She denies fever, chills or night sweats. Her blood sugar this morning was 180. This is slightly elevated for her. She denies polyuria or polydipsia. Tetanus Immunization: 5-10 years Prior similar symptoms: No Recent Illness/Hospitalization: Yes PFSH [facility] Medical History Acid reflux Below knee amputation Diabetes Dysphagia Home Medications albuterol sulfate 90 mcg/actuation aerosol inhaler 2 puff inhalation Q4H PRN PRN Sob &/Or Wheezing 10/01/18 [History Last Taken Unknown] metformin 500 mg tablet,extended release 24 hr 500 mg PO BID 12/14/21 [History Last Taken Unknown] amlodipine 5 mg tablet 5 mg PO DAILY 09/20/22 [History Last Taken Unknown] cholecalciferol (vitamin D3) 25 mcg (1,000 unit) capsule 25 mcg PO DAILY 09/20/22 [History Last Taken Unknown] dapagliflozin propanediol 10 mg tablet (Farxiga) 10 mg PO DAILY 09/20/22 [History Last Taken Unknown] ferrous fumarate 325 mg (106 mg iron) tablet 325 mg PO DAILY 09/20/22 [History Last Taken Unknown] lisinopril 40 mg tablet 40 mg PO DAILY 09/20/22 [History Last Taken Unknown] pantoprazole 40 mg tablet,delayed release 40 mg PO DAILY 09/20/22 [History Last Taken Unknown] potassium chloride 20 mEq tablet,extended release(part/cryst) 20 meq PO BID 09/20/22 [History Last Taken Unknown] glipizide 5 mg tablet, extended release 24 hr 5 mg PO DAILY #30 tabs 09/24/22 [Rx Last Taken Unknown] OneTouch Verio test strips (blood sugar diagnostic) #100 ea 11/06/22 [Rx Last Taken Unknown] atorvastatin 10 mg tablet 5 mg PO DAILY 11/21/22 [History Last Taken Unknown] cephalexin 500 mg capsule 500 mg PO Q6 #40 CAPSULES 02/16/23 [Rx Last Taken Unknown] Allergy/AdvReac Type Severity Reaction Status Date / Time No Known Allergies Allergy Verified 02/26/23 08:42 Family History Grandmother Breast cancer Father Heart disease Hypertension Sister Thyroid disorder Aunt Thyroid disorder Other Arthritis CVA (cerebral vascular accident) Kidney disease Myocardial infarction Surgical History H/O thumb surgery history EGD with dilatation S/P appendectomy Social History (Updated 02/26/23 @ 09:[address] Adrien Godoy MD) household members: family Smoking Status: Current every day smoker tobacco type: cigarettes alcohol intake: never substance use type: does not use what type of physical activity do you participate in: walking ROS ROS ED Constitutional Constitutional ED: Denies chills, fever(s), subjective, sweats or weight loss Eyes Eyes: Denies blurry vision, change in vision or diplopia Cardiovascular Cardiovascular: Denies chest pain Respiratory/Chest Respiratory/Chest: Denies dyspnea Gastrointestinal Gastrointestinal: Denies nausea or vomiting Integumentary Reports abscess and rash Endocrine Endocrinology: Denies polydipsia or polyuria Hematologic/Lymphatic Hematologic/Lymphatic: Denies easy bleeding or easy bruising EXAM Physical Exam Const Vital Signs: 02/26/23 08:43 02/26/23 09:23 Temperature 99.1 F 98.9 F Temperature Source Temporal Temporal Pulse Rate 110 H 104 H Respiratory Rate 15 16 Blood Pressure 107/75 147/97 H Blood Pressure Mean 85 113 Pulse Ox 100 100 Oxygen Delivery Method Room Air Room Air Positive well nourished, well developed and cachectic General Appearance ED: well developed, cachectic and NAD Nutritional Appearance: cachectic HEENT Reports moist mucous membranes normocephalic and atraumatic Eyes PERRL Eyes Narrative: Extraocular muscles are intact. Sclera is anicteric. Conjunctive is pink. Neck full ROM Thyroid: Negative for tender Chest Wall inspection of chest normal and palpation of chest normal Resp normal respiratory effort, no retractions and clear to auscultation bilaterally Cardio regular rhythm, S1 normal heart sound, S2 normal heart sound and no murmurs Rate: tachycardic GI non-tender, non-distended and no masses Auscultation: normoactive bowel sounds Palpation: soft Extremity Negative for normal to inspection Extremity Narrative: There is an area of erythema approximately 4.5 cm in diameter distal anterior right stump site. In the center of this is an area of breakdown that is approximately 1 cm in diameter. There is purulent material that was expressed from the wound. The wound is approximately 3 cm depth. General Extremety ED: Yes weight-bearing difficulty General Extremity: weight-bearing difficulty Neuro oriented x3, CN's II-XII intact bilaterally and moves all extremities Psych mental status grossly normal MDM MDM MDM Narrative Medical decision making narrative: Patient is presently on cephalexin. She does have a wound and there is concern for infection. There is purulent drainage. Gram stain and culture was obtained. Blood work was obtained to assess for endorgan dysfunction. Since she is diabetic BMP was obtained to assess glucose, CO2 anion gap. Also to assess renal function. If patient does not meet criteria for admission will consult case management since patient will not be able to weight-bear and her residence does not accommodate a wheelchair. Also could assess patient's ability to use crutches and she will not need to wear her prosthesis. History & Record Review Additional record(s) reviewed:: Prior outpatient record (ER documentation from prior visit February 16 was reviewed. There was no blood work for that visit.) and Prior labs (Prior records are greater than 6 months ago. Renal function at that time was normal. Patient was not anemic. She has been anemic on more remote studies.) Lab Data Attestation: I reviewed the patient's lab results. Lab results narrative: White count is elevated 12.5. ESR is slightly elevated 35. There is no bandemia noted on the CBC. Patient had a 3 g drop in her hemoglobin from this past July. Competence of metabolic panel reveals a glucose of 201 with a normal CO2 and anion gap. Sodium is slightly low at 135. Labs: Laboratory Results - last 24 hr 02/26/23 09:20 WBC 12.5 H RBC 3.10 L Hgb 9.6 L Hct 28.5 L MCV 91.9 MCH 31.0 MCHC 33.7 RDW Std Deviation 40.8 RDW Coeff of Emily 12.2 Plt Count 219 MPV 10.3 Immature Gran % (Auto) 0.400 Neut % (Auto) 80.2 H Lymph % (Auto) 9.7 L Foard % (Auto) 8.9 Eos % (Auto) 0.2 Baso % (Auto) 0.6 Absolute Neuts (auto) 10.1 H Absolute Lymphs (auto) 1.21 Nucleated RBC % 0 ESR 35 H Sodium 135 L Potassium 3.8 Chloride 104 Carbon Dioxide 26.0 Anion Gap 5 BUN 11 Creatinine 0.72 Est GFR (MDRD) Af Amer 108 Est GFR (MDRD) Non-Af 90 BUN/Creatinine Ratio 15.4 Glucose 201 H Lactic Acid 1.4 Calcium 8.9 Total Bilirubin 0.60 AST 14 L ALT 15 Alkaline Phosphatase 106 Total Protein 7.0 Albumin 3.0 L Globulin 4.0 Albumin/Globulin Ratio 0.8 L Radiography Chest X-Ray - ED: 2 View and Read by ED Physician (2 view x-ray of the proximal right tibia-fibula reveals subcu air. There is soft tissue swelling noted. There is slight abnormality distal portion of the tibia. There is no periosteal elevation. Suspect this is chronic. This is independently reviewed interpreted by me at 0942.) Diagnostic Testing: Clinical Impression(s) from Imaging Studies Tibia/Fibula X-Ray 02/26/23 09:35 IMPRESSION: Status post total knee amputation with evidence of soft tissue swelling at the level of the stump with air within the soft tissues. BE ruled out. Electronically Signed: Fritz Alston MD at 9:56 EST , Contact radiology regarding his interpretation. The last sentence under the impression should read infectious process should be ruled out. Management Discussion w/another healthcare provider: Hospitalist (Spoke with hospitalist, Dr. Monson. Patient to be a full admit to [facility] because of failed outpatient therapy) Treatment and Re-Evaluation Narrative: With elevated white count and the fact the patient was on antibiotics she is failed outpatient therapy. Awaiting lactate to determine blood cultures need to be obtained prior to administration of antibiotics. Since lactate is normal blood cultures were not obtained prior to administration of antibiotics. Patient was started on Zosyn and vancomycin. Discharge Plan Dx/Rx/DC Orders Clinical Impression: Status post below knee amputation of right lower extremity, Sinus tachycardia seen on cardiac nurse, Type 2 diabetes mellitus with hyperglycemia, without long-term current use of insulin, Cellulitis and abscess of right lower extremity Disposition Disposition: Acute Care Hospital [facility]
[2023-02-26 09:29] LABS: Absolute Lymphocyte Count 1.21 X10^3/uL (0.83-4.51); Absolute Neutrophil Count 10.1 X10^3/uL (2.0-7.7); Basophil# 0.07 X10^3/uL; Basophil% 0.6 % (0-1); Eosinophil# 0.02 X10^3/uL; Eosinophils% 0.2 % (0-5); Hematocrit 28.5 % (37-47); Hemoglobin 9.6 g/dL (12.0-15.0); Lymphocyte # 1.21 X10^3/ul (0.83-4.51); Lymphocyte % 9.7 % (19-41); Mean Corp Hgb Conc 33.7 g/dL (32-36); Mean Corpuscular Volume 91.9 fL (81-99); Mean Platelet Vol. 10.3 fl (6.2-12.0); Monocyte# 1.12 X10^3/uL; Monocyte% 8.9 % (0-10); NRBC Flagged by Analyzer 0 % (0-5); Neutrophil # 10.05 X10^3/uL (2.7-7.7); Neutrophil % 80.2 % (47-70); Platelet Count 219 K/mm3 (150-450); RBC Distribution Width CV 12.2 % (11.6-14.6); RBC Distribution Width SD 40.8 fl (35.1-43.9); White Blood Count 12.5 K/mm3 (4.4-11.0)
[2023-02-26 09:35] LABS: Erythrocyte Sedimentation Rate 35 mm/hr (0-30)
--- NOTE | 2023-02-26 09:35 | RAD_ITS ---
STUDY: X-RAY - RIGHT TIBIA AND FIBULA REASON FOR EXAM: Female, 57 years old. Nonhealing wound in the area of the amputation. TECHNIQUE: 2 view(s) of the tibia and fibula were obtained. COMPARISON: Comparison is made with prior study dated February 16, 2023. FINDINGS: The patient is status post below knee amputation. Osteopenia of the visualized distal femur and proximal tibia. Soft tissue swelling at the level of the stump. Focal gas is seen just distal to the bony portion of the tibia. Infection should be ruled RAD/Tibia & Fibula 2 Views IMPRESSION: Status post total knee amputation with evidence of soft tissue swelling at the level of the stump with air within the soft tissues. BE ruled out. Electronically Signed: Fritz Alston MD at 9:56 EST ,
[2023-02-26 09:44] LABS: ALB/GLOB Ratio 0.8 RATIO (0.9-2.4); AST(SGOT) 14 U/L (15-37); Alanine Aminotransfer ALT/SGPT 15 U/L (13-56); Alkaline Phosphatase 106 U/L (45-117); Anion Gap 5 (5-15); BUN 11 mg/dL (7-18); BUN/Creat Ratio 15.4 RATIO (10-20); Calcium,Total 8.9 mg/dL (8.5-10.1); Chloride 104 mmol/L (98-107); Creatinine, Serum 0.72 mg/dL (0.55-1.02); EST Glomerular Filtration Rate 90 mL/min (>60); Est Glom Filt Rate - Afr Amer 108 mL/min (>60); Glucose 201 mg/dL (74-106); Potassium 3.8 mmol/L (3.5-5.1); Sodium Level 135 mmol/L (136-145)
[2023-02-26 10:04] LABS: Lactic Acid 1.4 mmol/L (0.4-1.9)
--- NOTE | 2023-02-26 10:17 | HP.PCM.HOS_ITS ---
HPI - General General Date of Admission: 02/26/23 Date of Service: 02/26/23 Chief Complaint: right BKA stump infection HPI Narrative SANJUANITA BECERRA, is a 57 F with a PMH as outlined who presents via the ED on 02/26/2023 with a complaint of a pressure wound on the stump of her RLE BKA. She had been seen 2 weeks prior to admission for the same wound and was placed on oral antibiotics and counseled to keep pressure off of it. However, apparently her apartment is so small that she has been keeping cody stump on. She denied any fever, chills, chest pain, palpitations, dizziness, redness at hte left BKA stump site with associated drainage and redness. She therefore came into the ED for further evaluation. Vitals in the ED were blood pressure 149/97, pulse rate of 104, respirate rate of 16 and symptoms of 98.9 Fahrenheit. Oxygen saturation was 100% on room air. CBC showed hemoglobin of 9.6 with WBC of 12.5 and platelets of 219. Chemistry was essentially unremarkable. X-ray of the right lower extremity done showed soft tissue swelling of the post total knee amputation stump site with air within the tissues. She has been admitted to be managed for cellulitis of the right lower extremity stump. [facility] Medical History Acid reflux Below knee amputation Diabetes Dysphagia Smoker Home Medications albuterol sulfate 90 mcg/actuation aerosol inhaler 2 puff inhalation Q4H PRN Sob &/Or Wheezing 10/01/18 [History Last Taken Unknown] dapagliflozin propanediol 10 mg tablet (Farxiga) 10 mg PO DAILY blood sugars 09/20/22 [History Last Taken 02/25/23] pantoprazole 40 mg tablet,delayed release 40 mg PO DAILY acid reflux 09/20/22 [History Last Taken 02/25/23] glipizide 5 mg tablet, extended release 24 hr 5 mg PO DAILY blood sugars #30 tabs 09/24/22 [Rx Last Taken 02/25/23] OneTouch Verio test strips (blood sugar diagnostic) #100 ea 11/06/22 [Rx Last Taken Unknown] atorvastatin 40 mg tablet 40 mg PO QHS cholesterol 02/26/23 [History Last Taken 02/25/23] cholecalciferol (vitamin D3) 25 mcg (1,000 unit) tablet 25 mcg PO DAILY supplement 02/26/23 [History Last Taken 02/25/23] ferrous sulfate 325 mg (65 mg iron) tablet (FeroSul) 325 mg PO DAILY supplement 02/26/23 [History Last Taken 02/25/23] lisinopril 5 mg tablet 5 mg PO DAILY blood pressure 02/26/23 [History Last Taken 02/25/23] metformin 1,000 mg tablet 1,000 mg PO BID blood sugars 02/26/23 [History Last Taken 02/25/23] Allergy/AdvReac Type Severity Reaction Status Date / Time No Known Allergies Allergy Verified 02/26/23 08:42 Family History Grandmother Breast cancer Father Heart disease Hypertension Sister Thyroid disorder Aunt Thyroid disorder Other Arthritis CVA (cerebral vascular accident) Kidney disease Myocardial infarction Surgical History (Updated 02/26/23 @ 13:53 by Abeba Sandy) H/O thumb surgery history EGD with dilatation History of appendectomy S/P appendectomy Social History (Updated 02/26/23 @ 09:[address] Adrien Godoy MD) household members: family Smoking Status: Current every day smoker tobacco type: cigarettes alcohol intake: never substance use type: does not use what type of physical activity do you participate in: walking ROS Constitutional Constitutional: Reports malaise and weakness; Denies anorexia, change in weight, chills, fatigue or fever(s) Eyes Eyes: Denies change in vision ENT HEENT: Denies dysphagia or headache(s) Cardiovascular Cardiovascular: Denies chest pain, dyspnea on exertion, edema, lightheadedness, orthopnea, palpitations, paroxysmal nocturnal dyspnea or rapid heart rate Respiratory/Chest Respiratory/Chest: Denies cough, dyspnea, productive cough, shortness of breath at rest or shortness of breath with exertion Gastrointestinal Gastrointestinal: Denies abdominal pain, diarrhea, nausea or vomiting Genitourinary Genitourinary: Denies dysuria Musculoskeletal Musculoskeletal: Denies arthralgias or joint swelling Neurologic Neurologic: Denies confusion, disequilibrium, dizziness, focal weakness, headache(s) or numbness Psychiatric Psychiatric: Denies anxiety Endocrine Endocrinology: Denies change in body appearance Vital Signs Vital Signs Vital Signs: 02/26/23 08:43 02/26/23 09:23 Temperature 99.1 F 98.9 F Temperature Source Temporal Temporal Pulse Rate 110 H 104 H Respiratory Rate 15 16 Blood Pressure 107/75 147/97 H Blood Pressure Mean 85 113 Pulse Ox 100 100 Oxygen Delivery Method Room Air Room Air Weight Weight: 97 lb 10.636 oz Body Mass Index (BMI) 19.1 Physical Exam Const alert, oriented x3 and no apparent distress Constitutional Narrative: frail, thin General Appearance: cooperative HEENT normocephalic, head/scalp atraumatic, hearing grossly normal bilaterally, moist oral mucous membranes and oropharynx normal Mouth: oral and palatal mucosa normal and moist mucous membranes abnormal Eyes PERRL, EOMs intact bilaterally and conjunctivae normal Neck no lymphadenopathy and supple Resp normal respiratory effort, no retractions, no use of accessory muscles and clear to auscultation bilaterally Cardio regular rate, regular rhythm, S1 normal heart sound, S2 normal heart sound and no murmurs GI normal to inspection, nondistended, normoactive bowel sounds, soft to palpation and non-distended Extremity Extremity Narrative: has a small, ~ 0.5cm ulcer on the RLE BKA stump, with surrounding erythema and discharge. Tender and warm to touch. Skin Skin Narrative: as under extremity Neuro oriented x3 and CN's II-XII intact bilaterally Neuro Narrative: RLE AKA Psych affect normal Results Lab / Micro Data 02/26/23 09:20 02/26/23 09:20 Labs: Laboratory Results - last 24 hr 02/26/23 09:20: WBC 12.5 H, RBC 3.10 L, Hgb 9.6 L, Hct 28.5 L, MCV 91.9, MCH 31.0, MCHC 33.7, RDW Std Deviation 40.8, RDW Coeff of Emily 12.2, Plt Count 219, MPV 10.3, Immature Gran % (Auto) 0.400, Neut % (Auto) 80.2 H, Lymph % (Auto) 9.7 L, Arthur % (Auto) 8.9, Eos % (Auto) 0.2, Baso % (Auto) 0.6, Absolute Neuts (auto) 10.1 H, Absolute Lymphs (auto) 1.21, Nucleated RBC % 0, ESR 35 H, Sodium 135 L, Potassium 3.8, Chloride 104, Carbon Dioxide 26.0, Anion Gap 5, BUN 11, Creatinine 0.72, Est GFR (MDRD) Af Amer 108, Est GFR (MDRD) Non-Af 90, BUN/Creatinine Ratio 15.4, Glucose 201 H, Lactic Acid 1.4, Calcium 8.9, Total Bilirubin 0.60, AST 14 L, ALT 15, Alkaline Phosphatase 106, Total Protein 7.0, Albumin 3.0 L, Globulin 4.0, Albumin/Globulin Ratio 0.8 L Imagaing Radiology Impression Tibia/Fibula X-Ray 02/26/23 09:35 IMPRESSION: Status post total knee amputation with evidence of soft tissue swelling at the level of the stump with air within the soft tissues. BE ruled out. Electronically Signed: Fritz Alston MD at 9:56 EST , Assessment & Plan Assessment/Plan (1) Cellulitis and abscess of right lower extremity: (2) Type 2 diabetes mellitus with hyperglycemia, without long-term current use of insulin: (3) Status post below knee amputation of right lower extremity: PLAN: Plan #Cellulitis of the RLE BKA stump * patient says the ulcer on the RLE probes very deeply * she failed outpatient therapy after completing a course of PO keflex * admit to med surg * wbc is 12.5 * 3 of the right tibia-fibula showed s/p total knee amputation with evidence of soft tissue swelling at the level of the stump with a within the tissues. * Started on IV vancomycin and Zosyn. In light of the air within the tissues we will add on clindamycin due to concern about necrotizing infection. * Get blood cultures and wound cultures. Orthopedic surgery consulted to determine if there is any need for debridement. Will defer need for MRI to orthopedic surgery * PT OT consult * Discussed with Dr. Rubio orthopedic surgeon on-call. Will get CT with and without contrast of the right lower extremity to further evaluate. Dr. Flanagan suggested consulting plastic surgery. However Dr. Piedra is on leave and I spoke to Dr. Orona who said she doesnt usually deal with wounds. Dr Flanagan informed. * #Type 2 diabetes mellitus: On dapagliflozin. Insulin sliding scale. Checks ACHS. Also on glipizide and metformin. Will hold these for now. #Hyperlipidemia: On statin DVT prophylaxis: Lovenox Code status: full code * Patient counseled extensively about different types of CODE STATUS including full code, DNR CCA and DNR CCA. Patient elects to be full code. * Total [id number] time 17 minutes. Charges/Coding Visit Charges Inpatient E&M: 32569 Init Hosp L3 Procedures Hospitalists Procedures: 85459 Advncd Care Plan 30 Min
--- NOTE | 2023-02-26 10:18 | NURSING ---
DR JAMAL CHENEY
--- NOTE | 2023-02-26 10:26 | NURSING ---
MED SURG KORAM CELLULITIS AND ABSCESS RT BKA STUMP, FAILED OUTPATIENT THERAPY
[2023-02-26] MEDS: Piperacil/Tazobactam 4.5 GM in 0.9% Normal Saline (100mL MB+) 100 ML IV (10:57)
[2023-02-26] MEDS: Vancomycin IV 1,000 MG/200 ML BAG 200 MG IV (10:58)
--- NOTE | 2023-02-26 13:26 | PCM.RX.CS ---
Consult Antibiotic Management Pharmacy has been consulted to manage selected antiobiotic: Vancomycin Type of Intervention Type of Consult: New start Suspected Infection Suspected Infection: Skin/Soft tissue Prior Doses of Antibiotics Prior Doses of Antibiotics Received/Current Regimen: Vancomycin 1000 mg IV given 02/26/23 @ 1100, patient also received loading dose of pipericillin/tazobactam 4.5 grams x 1 Labs Labs: Sodium 135 mmol/L (136-145) L 02/26/23 09:20 Potassium 3.8 mmol/L (3.5-5.1) 02/26/23 09:20 Chloride 104 mmol/L (98-107) 02/26/23 09:20 Carbon Dioxide 26.0 mmol/L (21.0-32.0) 02/26/23 09:20 Anion Gap 5 (5-15) 02/26/23 09:20 BUN 11 mg/dL (7-18) 02/26/23 09:20 Creatinine 0.72 mg/dL (0.55-1.02) 02/26/23 09:20 Est GFR (MDRD) Af Amer 108 mL/min (>60) 02/26/23 09:20 Est GFR (MDRD) Non-Af 90 mL/min (>60) 02/26/23 09:20 BUN/Creatinine Ratio 15.4 RATIO (10-20) 02/26/23 09:20 Glucose 201 mg/dL (74-106) H 02/26/23 09:20 Dosing Weight Weight used for dosin.3 kg Estimated Creatinine Clearance Estimated Creatinine Clearance: 63 Goal Trough Goal Trough: 15-20 mcg/mL Pharmacy Plan for Drug Dosing Pharmacy Plan for Drug Dosing: Vancomycin 1000 mg IV x1 followed by vancomycin 500 mg IV Q12H Pharmacy Service will continue to monitor and adjust dosing as required. Follow-Up Labs Follow-Up Labs: Trough: Vancomycin Date/Time Labs Ordered Labs to be done on [date and time ordered]: 02/26/23 @ 2230
--- NOTE | 2023-02-26 14:00 | WOUNDNOTE ---
wound photo: right stump
[2023-02-26] MEDS: 0.9% Normal Saline (1000mL) 1,000 ML 125 ML IV (14:33)
[2023-02-26] MEDS: 0.9% Saline Lock 10 ML Syringe IV ×2 (14:34→17:30)
[2023-02-26 15:12] LABS: Bedside Glucose 157 mg/dL (74-106)
[2023-02-26] MEDS: Piperacil/Tazobactam 3.375 GM in 0.9% Normal Saline (50mL MB+) 50 ML IV ×2 (15:30→21:54)
[2023-02-26] MEDS: 0.9% Normal Saline (250mL Bag) 250 ML 15 ML IV (15:35)
[2023-02-26] MEDS: Glucerna Shake 120 ML LIQUID PO (15:36)
--- NOTE | 2023-02-26 16:06 | CT_ITS ---
CT RIGHT LOWER EXTREMITY WITH 3-D IMAGING CLINICAL INDICATION: RLE BKA stump cellulitis TECHNIQUE: Axial CT images of the RIGHT lower extremity was performed with IV contrast material. Coronal and sagittal reformats were provided. RADIATION DOSAGE (If Supplied By Facility): CTDIvol = ( 15.35 ) mGy, DLP = ( 637.76 ) mGycm COMPARISON: X-ray earlier today FINDINGS: Bones: No bony destruction to suggest osteomyelitis. There is some focal benign appearing periosteal reaction of the lateral cortex of the tibia at the site of amputation and the medial cortex of the fibula at the site of amputation felt to likely represent callus from the amputation rather than periostitis. Soft Tissues: Ulceration of the soft tissues anteriorly just distal to the site of below knee amputation with surrounding fluid and soft tissue attenuation of the entire anterior soft tissues consistent with phlegmon. No definite enhancing fluid collection to suggest abscess.. Mild diffuse skin thickening and edema in the subcutaneous fat consistent with passive congestion. Moderate joint effusion of the knee joint. CT/Extremity Lower WITH Contrast IMPRESSION: Cellulitis with ulcer anteriorly with subjacent phlegmon but no CT evidence of osteomyelitis. Electronically Signed: Roger Rogers MD at 18:36 EST ,
[2023-02-26 16:44] LABS: Hemoglobin A1c 8.1 % (3.8-5.6)
--- NOTE | 2023-02-26 17:18 | CON.PCM.OR_ITS ---
HPI Consult Data Date of Consult: 02/26/23 HPI Narrative HPI Narrative: SANJUANITA BEECRRA, is a 57 F who presents with over right BKA stump. Patient was admitted this morning. I was consulted for the wound after patient admission. 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 This stump was left open initially in May followed by a delayed closure. She did not have any wound issues after the closure was completed. She noticed around 2 weeks ago she started having redness and sore. Yesterday it became a scab which opened and caused serous drainage. She denies any purulence, foul smelling, blood staining of the discharge and says that it was clear serous only. She denies any fevers. She denies any pain or injuries in any other areas of the stump. She mentioned that initially her stump was swollen around May and she was fitted with a prosthesis which over bit of time became loose as her swelling reduced. She felt that the prominent tip of the bone was irritated significantly with the stump which caused the sore. She has been seen by wound care earlier today and has undergone bedside wound packing and dressing. She denies any fevers. PFSH Medical History Acid reflux Below knee amputation Diabetes Dysphagia Smoker Home Medications albuterol sulfate 90 mcg/actuation aerosol inhaler 2 puff inhalation Q4H PRN Sob &/Or Wheezing 10/01/18 [History Last Taken Unknown] dapagliflozin propanediol 10 mg tablet (Farxiga) 10 mg PO DAILY blood sugars 09/20/22 [History Last Taken 02/25/23] pantoprazole 40 mg tablet,delayed release 40 mg PO DAILY acid reflux 09/20/22 [History Last Taken 02/25/23] glipizide 5 mg tablet, extended release 24 hr 5 mg PO DAILY blood sugars #30 tabs 09/24/22 [Rx Last Taken 02/25/23] OneTouch Verio test strips (blood sugar diagnostic) #100 ea 11/06/22 [Rx Last Taken Unknown] atorvastatin 40 mg tablet 40 mg PO QHS cholesterol 02/26/23 [History Last Taken 02/25/23] cholecalciferol (vitamin D3) 25 mcg (1,000 unit) tablet 25 mcg PO DAILY supplement 02/26/23 [History Last Taken 02/25/23] ferrous sulfate 325 mg (65 mg iron) tablet (FeroSul) 325 mg PO DAILY supplement 02/26/23 [History Last Taken 02/25/23] lisinopril 5 mg tablet 5 mg PO DAILY blood pressure 02/26/23 [History Last Taken 02/25/23] metformin 1,000 mg tablet 1,000 mg PO BID blood sugars 02/26/23 [History Last Taken 02/25/23] Allergy/AdvReac Type Severity Reaction Status Date / Time No Known Allergies Allergy Verified 02/26/23 08:42 Family History Grandmother Breast cancer Father Heart disease Hypertension Sister Thyroid disorder Aunt Thyroid disorder Other Arthritis CVA (cerebral vascular accident) Kidney disease Myocardial infarction Surgical History (Updated 02/26/23 @ 13:53 by Abeba Sandy) H/O thumb surgery history EGD with dilatation History of appendectomy S/P appendectomy Social History (Updated 02/26/23 @ 09:[address] Adrien Godoy MD) household members: family Smoking Status: Current every day smoker tobacco type: cigarettes alcohol intake: never substance use type: does not use what type of physical activity do you participate in: walking Vital Signs Vital Signs Vital Signs: 02/26/23 08:43 02/26/23 09:23 02/26/23 10:00 Temperature 99.1 F 98.9 F 98.9 F Temperature Source Temporal Temporal Temporal Pulse Rate 110 H 104 H 94 Respiratory Rate 15 16 18 Respiratory Effort Respiratory Depth Respiratory Pattern Blood Pressure 107/75 147/97 H 140/71 H Blood Pressure Mean 85 113 94 Blood Pressure Source Blood Pressure Position Blood Pressure Location Pulse Ox 100 100 100 Oxygen Delivery Method Room Air Room Air Room Air 02/26/23 12:12 02/26/23 12:13 02/26/23 13:43 Temperature 97.2 F L 99.0 F Temperature Source Temporal Oral Pulse Rate 94 95 88 Respiratory Rate 17 21 H 18 Respiratory Effort Respiratory Depth Respiratory Pattern Blood Pressure 147/74 H 147/74 H 130/71 H Blood Pressure Mean 98 98 90 Blood Pressure Source Monitor Blood Pressure Position Semi-Fowlers Blood Pressure Location Right Arm Pulse Ox 99 100 98 Oxygen Delivery Method Room Air Room Air Room Air 02/26/23 14:45 Temperature Temperature Source Pulse Rate Respiratory Rate Respiratory Effort Normal Non-Labored Respiratory Depth Normal Respiratory Pattern Normal Blood Pressure Blood Pressure Mean Blood Pressure Source Blood Pressure Position Blood Pressure Location Pulse Ox Oxygen Delivery Method Room Air Weight Weight: 99 lb 4.81 oz Body Mass Index (BMI) 19.3 Physical Exam Narrative Examination of the right lower extremity shows coronal extent of incisional scar all the way up to the lower fourth of the thigh. There is erythema swelling over 2 x 2 inch area of the skin right at the anterior prominence of the distal tip of the tibia. There is no significant fluctuance. Wound packing was not removed. There is no swelling tenderness anywhere else in the stump. Lab / Micro Data 02/26/23 09:20 02/26/23 09:20 Labs: Laboratory Results - last 24 hr 02/26/23 09:20: WBC 12.5 H, RBC 3.10 L, Hgb 9.6 L, Hct 28.5 L, MCV 91.9, MCH 31.0, MCHC 33.7, RDW Std Deviation 40.8, RDW Coeff of Emily 12.2, Plt Count 219, MPV 10.3, Immature Gran % (Auto) 0.400, Neut % (Auto) 80.2 H, Lymph % (Auto) 9.7 L, [place] % (Auto) 8.9, Eos % (Auto) 0.2, Baso % (Auto) 0.6, Absolute Neuts (auto) 10.1 H, Absolute Lymphs (auto) 1.21, Nucleated RBC % 0, ESR 35 H, Sodium 135 L, Potassium 3.8, Chloride 104, Carbon Dioxide 26.0, Anion Gap 5, BUN 11, Creatinine 0.72, Est GFR (MDRD) Af Amer 108, Est GFR (MDRD) Non-Af 90, BUN/Creatinine Ratio 15.4, Glucose 201 H, Hemoglobin A1c 8.1 H, Lactic Acid 1.4, Calcium 8.9, Total Bilirubin 0.60, AST 14 L, ALT 15, Alkaline Phosphatase 106, Total Protein 7.0, Albumin 3.0 L, Globulin 4.0, Albumin/Globulin Ratio 0.8 L 02/26/23 14:32: POC Glucose 157 H Imagaing Radiology Impression Tibia/Fibula X-Ray 02/26/23 09:35 IMPRESSION: Status post total knee amputation with evidence of soft tissue swelling at the level of the stump with air within the soft tissues. BE ruled out. Electronically Signed: Fritz Alston MD at 9:56 EST , Assessment & Plan Assessment/Plan (1) Cellulitis and abscess of right lower extremity: PLAN: Plan I reviewed the patient's CT scan which, although ordered with contrast, images available are only noncontrast. No imaging report available as yet. No obvious abscess or deep collection seen. There may have been a collection which is now drained and packed. Now, only appears as a cellulitis. No obvious signs of chronic osteomyelitis in the tibia stump. Will await CT report. For now, I would advise continued dressing changes packing changes. Appreciate wound care management. Recommend IV antibiotics, blood cultures, ESR CRP. Will continue to follow. If patient develops collection or requires revision surgery, I would request consultation with plastic surgery or vascular surgery for the procedure. Charges/Coding Visit Charges Inpatient E&M: 42352 Init Hosp L2
[2023-02-26] MEDS: Juven (unflavored) Packet 1 PACKET PO (17:30)
[2023-02-26] MEDS: Atorvastatin Calcium 40 MG Tablet PO (21:54)
[2023-02-26] MEDS: Insulin Lispro 100 UNIT/ML INSULN.PEN SC (22:01)
[2023-02-26] MEDS: Vancomycin IV 500 MG/100 ML BAG 100 MG IV (22:04)
[2023-02-26 22:15] LABS: Bedside Glucose 208 mg/dL (74-106)
[2023-02-27] MEDS: 0.9% Normal Saline (1000mL) 1,000 ML 125 ML IV (00:20)
[2023-02-27 04:04] VITALS: BP 123/69; PULSE 89; RESP 18; TEMP 37.3; O2SAT 97
[2023-02-27] MEDS: Piperacil/Tazobactam 3.375 GM in 0.9% Normal Saline (50mL MB+) 50 ML IV ×3 (06:29→20:39)
[2023-02-27] MEDS: Insulin Lispro 100 UNIT/ML INSULN.PEN SC ×3 (06:30→20:40)
[2023-02-27 06:51] LABS: Bedside Glucose 161 mg/dL (74-106)
[2023-02-27] MEDS: Cholecalciferol (VIT D3) 25 MCG TABLET (1,000 UNITS) PO (07:56)
[2023-02-27] MEDS: Pantoprazole Sodium 40 MG Tablet PO (07:56)
[2023-02-27] MEDS: Enoxaparin 30 MG/0.3 ML Syringe SC (07:56)
[2023-02-27] MEDS: Ferrous Sulfate 325 MG Tablet PO (07:56)
[2023-02-27] MEDS: Empagliflozin 25 MG Tablet PO (07:56)
[2023-02-27] MEDS: Lisinopril 5 MG Tablet PO (07:56)
[2023-02-27] MEDS: Juven (unflavored) Packet 1 PACKET PO ×2 (07:56→16:21)
[2023-02-27 08:14] LABS: Absolute Neutrophil Count 8.2 X10^3/uL (2.0-7.7); Basophil# 0.07 X10^3/uL; Basophil% 0.7 % (0-1); Eosinophil# 0.08 X10^3/uL; Eosinophils% 0.8 % (0-5); Hematocrit 24.3 % (37-47); Hemoglobin 7.9 g/dL (12.0-15.0); Lymphocyte % 8.9 % (19-41); Mean Corp Hgb Conc 32.5 g/dL (32-36); Mean Corpuscular Volume 92.4 fL (81-99); Mean Platelet Vol. 11.2 fl (6.2-12.0); Monocyte# 0.87 X10^3/uL; Monocyte% 8.6 % (0-10); NRBC Flagged by Analyzer 0 % (0-5); Neutrophil # 8.16 X10^3/uL (2.7-7.7); Neutrophil % 80.4 % (47-70); Platelet Count 199 K/mm3 (150-450); RBC Distribution Width CV 12.2 % (11.6-14.6); RBC Distribution Width SD 41.1 fl (35.1-43.9); Red Blood Count 2.63 M/mm3 (4.2-5.4); White Blood Count 10.1 K/mm3 (4.4-11.0)
[2023-02-27 08:39] LABS: AST(SGOT) 22 U/L (15-37); Alanine Aminotransfer ALT/SGPT 26 U/L (13-56); Albumin, Serum 2.2 g/dL (3.2-5.0); Alkaline Phosphatase 88 U/L (45-117); Anion Gap 2 (5-15); BUN 14 mg/dL (7-18); BUN/Creat Ratio 24.1 RATIO (10-20); Bilirubin, Direct 0.18 mg/dL (0.00-0.30); Calcium,Total 7.8 mg/dL (8.5-10.1); Chloride 111 mmol/L (98-107); Creatinine, Serum 0.58 mg/dL (0.55-1.02); EST Glomerular Filtration Rate 114 mL/min (>60); Est Glom Filt Rate - Afr Amer 138 mL/min (>60); Estimated Creatinine Clearance 77.01 ml/min; Globulin 3.4 g/dL (2.2-4.2); Glucose 165 mg/dL (74-106); Potassium 3.2 mmol/L (3.5-5.1); Protein, Total 5.6 g/dL (6.4-8.2); Sodium Level 139 mmol/L (136-145)
[2023-02-27 10:00] VITALS: BP 114/65; PULSE 78; RESP 16; TEMP 36.8; O2SAT 99
--- NOTE | 2023-02-27 11:09 | PN_ITS ---
Subjective Subjective Patient seen and examined. She feels better today. She had no active events and had an uneventful night. Review of systems is otherwise negative. Objective Data Objective Data Vital Signs: Vital Signs Temp Pulse Resp BP Pulse Ox O2 Del Method 98.3 F 78 16 114/65 99 Room Air 02/27/23 10:00 02/27/23 10:00 02/27/23 10:00 02/27/23 10:00 02/27/23 10:00 02/27/23 10:00 Oxygen Delivery Method Room Air Weight: 99 lb 4.81 oz Body Mass Index (BMI) 19.3 Intake & Output: Intake and Output for Last 24 Hours 02/25/23 02/26/23 02/27/23 23:59 23:59 23:59 Intake Total 1900.00 / 2100.00 1600 / 1600 Output Total 1000 / 1000 Balance 1900.00 / 1800.00 600 / 600 Lab / Micro Data 02/27/23 06:41 02/27/23 06:41 Labs: Laboratory Results - last 24 hr 02/26/23 09:20: Hemoglobin A1c 8.1 H 02/26/23 14:32: POC Glucose 157 H 02/26/23 21:53: POC Glucose 208 H 02/27/23 06:28: POC Glucose 161 H 02/27/23 06:41: WBC 10.1, RBC 2.63 L, Hgb 7.9 L, Hct 24.3 L, MCV 92.4, MCH 30.0, MCHC 32.5, RDW Std Deviation 41.1, RDW Coeff of Emily 12.2, Plt Count 199, MPV 11.2, Immature Gran % (Auto) 0.600, Neut % (Auto) 80.4 H, Lymph % (Auto) 8.9 L, [place] % (Auto) 8.6, Eos % (Auto) 0.8, Baso % (Auto) 0.7, Absolute Neuts (auto) 8.2 H, Absolute Lymphs (auto) 0.90, Nucleated RBC % 0, Sodium 139, Potassium 3.2 L, Chloride 111 H, Carbon Dioxide 26.0, Anion Gap 2 L, BUN 14, Creatinine 0.58, Estim Creat Clear Calc 77.01, Est GFR (MDRD) Af Amer 138, Est GFR (MDRD) Non-Af 114, BUN/Creatinine Ratio 24.1 H, Glucose 165 H, Calcium 7.8 L, Total Bilirubin 0.40, Direct Bilirubin 0.18, AST 22, ALT 26, Alkaline Phosphatase 88, Total Protein 5.6 L, Albumin 2.2 L, Globulin 3.4 Radiography Diagnostic Testing: Radiology Impression Lower Extremity CT 02/26/23 16:06 IMPRESSION: Cellulitis with ulcer anteriorly with subjacent phlegmon but no CT evidence of osteomyelitis. Electronically Signed: Roger Rogers MD at 18:36 EST , Physical Exam Const alert, oriented x3 and no apparent distress Constitutional Narrative: frail, thin General Appearance: cooperative HEENT normocephalic, head/scalp atraumatic, hearing grossly normal bilaterally, moist oral mucous membranes and oropharynx normal Eyes PERRL, EOMs intact bilaterally and conjunctivae normal Neck no lymphadenopathy and supple Resp normal respiratory effort, normal air movement, no retractions, no use of accessory muscles and clear to auscultation bilaterally Cardio regular rate, regular rhythm, S1 normal heart sound, S2 normal heart sound and no murmurs GI normal to inspection, nondistended, normoactive bowel sounds, soft to palpation and non-distended Extremity Extremity Narrative: has a small, ~ 0.5cm ulcer on the RLE BKA stump, with surrounding erythema and discharge. RIght BKA stump wrapped in bandage. Skin Skin Narrative: as under extremity Neuro oriented x3 and CN's II-XII intact bilaterally Neuro Narrative: RLE BKA Psych affect normal Appearance: appropriate Assessment & Plan Assessment/Plan (1) Cellulitis and abscess of right lower extremity: (2) Type 2 diabetes mellitus with hyperglycemia, without long-term current use of insulin: (3) Status post below knee amputation of right lower extremity: PLAN: Plan #Cellulitis of the RLE BKA stump * wbc is down to 10.1 * she failed outpatient therapy after completing a course of PO keflex * xray of the right tibia-fibula showed s/p total knee amputation with evidence of soft tissue swelling at the level of the stump with a within the tissues. * on IV vancomycin and zosyn. * blood and wound cultures pending * Orthopedic surgery on board; for conservative management now * PT OT consult * Discussed with Dr. Rubio orthopedic surgeon on-call. Will get CT with and without contrast of the right lower extremity to further evaluate. Dr. Flanagan suggested consulting plastic surgery. However Dr. Piedra is on leave and I spoke to Dr. Orona who said she doesnt usually deal with wounds. Dr Flanagan informed. * #Type 2 diabetes mellitus: On dapagliflozin. Insulin sliding scale. Checks ACHS. Also on glipizide and metformin. Will hold these for now. #Hyperlipidemia: On statin DVT prophylaxis: Lovenox Code status: full code * Patient counseled extensively about different types of CODE STATUS including full code, DNR CCA and DNR CCA. Patient elects to be full code. * Total [id number] time 17 minutes.
[2023-02-27] MEDS: Potassium Chloride Oral Tablet 20 MEQ 40 MEQ PO (11:26)
[2023-02-27] MEDS: Vancomycin IV 500 MG/100 ML BAG 100 MG IV (11:26)
[2023-02-27 11:49] LABS: Bedside Glucose 177 mg/dL (74-106)
--- NOTE | 2023-02-27 11:55 | PN.ORTHO_ITS ---
Subjective Subjective Patient seen again today. She feels much better today. She worked with physical therapy. She denies any fevers. Objective Data Objective Data Vital Signs: Vital Signs Temp Pulse Resp BP Pulse Ox O2 Del Method 98.3 F 78 16 114/65 99 Room Air 02/27/23 10:00 02/27/23 10:00 02/27/23 10:00 02/27/23 10:00 02/27/23 10:00 02/27/23 10:00 Oxygen Delivery Method Room Air Weight: 99 lb 4.81 oz Body Mass Index (BMI) 19.3 Intake & Output: Intake and Output for Last 24 Hours 02/25/23 02/26/23 02/27/23 23:59 23:59 23:59 Intake Total 1900.00 / 2100.00 1600 / 1600 Output Total 1000 / 1000 Balance 1900.00 / 1800.00 600 / 600 Lab / Micro Data 02/27/23 06:41 02/27/23 06:41 Labs: Laboratory Results - last 24 hr 02/26/23 09:20: Hemoglobin A1c 8.1 H 02/26/23 14:32: POC Glucose 157 H 02/26/23 21:53: POC Glucose 208 H 02/27/23 06:28: POC Glucose 161 H 02/27/23 06:41: WBC 10.1, RBC 2.63 L, Hgb 7.9 L, Hct 24.3 L, MCV 92.4, MCH 30.0, MCHC 32.5, RDW Std Deviation 41.1, RDW Coeff of Emily 12.2, Plt Count 199, MPV 11.2, Immature Gran % (Auto) 0.600, Neut % (Auto) 80.4 H, Lymph % (Auto) 8.9 L, [place] % (Auto) 8.6, Eos % (Auto) 0.8, Baso % (Auto) 0.7, Absolute Neuts (auto) 8.2 H, Absolute Lymphs (auto) 0.90, Nucleated RBC % 0, Sodium 139, Potassium 3.2 L, Chloride 111 H, Carbon Dioxide 26.0, Anion Gap 2 L, BUN 14, Creatinine 0.58, Estim Creat Clear Calc 77.01, Est GFR (MDRD) Af Amer 138, Est GFR (MDRD) Non-Af 114, BUN/Creatinine Ratio 24.1 H, Glucose 165 H, Calcium 7.8 L, Total Bilirubin 0.40, Direct Bilirubin 0.18, AST 22, ALT 26, Alkaline Phosphatase 88, Total Protein 5.6 L, Albumin 2.2 L, Globulin 3.4 02/27/23 11:25: POC Glucose 177 H Micro: Microbiology 02/26/23 08:55 Wound - Other Gram Stain - Final 02/26/23 08:55 Wound - Other Wound Culture - Preliminary Staphylococcus aureus GNR lactose director of strategic communications Radiography Diagnostic Testing: Radiology Impression Lower Extremity CT 02/26/23 16:06 IMPRESSION: Cellulitis with ulcer anteriorly with subjacent phlegmon but no CT evidence of osteomyelitis. Electronically Signed: Roger Rogers MD at 18:36 EST , Physical Exam Narrative I was present in the room when wound care has been taking down the dressing. 1 x 1 cm opening. Packing removed shows scanty seropurulent discharge. Redness reduced from yesterday but still present. Range of motion of the knee is intact. Assessment & Plan Assessment/Plan (1) Cellulitis and abscess of right lower extremity: PLAN: Plan I reviewed the CT done last night again. No evidence of osteomyelitis. Subcutaneous cellulitis without any abscess. Opening and space occupied with the packing. Recommend continued daily dressing and packing changes. IV antibiotics for now. Recommend ID consult for further recommendations on antibiotics on discharge. Blood culture negative so far. No fevers. Wound culture suggests Staph aureus?. Will continue medical management of the cellulitis with help of ID. Will continue to follow.
[2023-02-27 16:00] VITALS: BP 110/62; PULSE 80; RESP 16; TEMP 36.8; O2SAT 100
[2023-02-27 16:39] LABS: Bedside Glucose 139 mg/dL (74-106)
--- NOTE | 2023-02-27 18:35 | CASEMGMT ---
Addendum entered by Roseline Vogt 02/28/23 10:08: SWJoycelyn, made aware of pt's comments of feeling like a failure and worthless sometimes. Pt states she works for [employer]. She states she has went back to work part-time since the BKA and works 3 hrs/day, split shifts. Original Note: RN?CM?DIRECTOR [employer]ITATION [employer]AU?CM?to room to meet with patient for initial transition planning/care coordination?assessment.?RN?CM?introduced self and role at [facility].? Pt voices understanding and consents to?assessment?at this time.? Pt resting in bed in no distress at this time.? Pt is A/O at this time and answers all questions appropriately.?? Care providers, pharmacy, and demographics verified/updated at this time. PCP: Dr Herman Specialists: none currently Preferred Pharmacy: [facility] Insurance: [employer] Prescription Benefit:?yes LNOK: , [place]. Dtr, Alayna. Son Living Arrangements: Lives w/, dtr, and son in 2-story home w/1 small step to enter. FFSU. Pt states she is indep w/dressing. Dtr is an PROCUREMENT PROFESSIONAL and assists pt w/bathing. Pt manages her own medications. Family gets groceries. Dtr can wound care. Transportation:?Family DME: ?States has the following DME:?prosthetic from [employer] (has not been wearing since issues w/wound), BSC, walker, functioning glucometer w/supplies, and has W/C available. Pt states no need for further DME at this time.? HHC/SNF: Has been to [facility]. No hx of HHC. Discussed discharge planning. Pt wishes to return home and states has no concerns with going home at time of discharge.? She declines wanting HHC and states her dtr can do wound care. She states she does not want anyone coming into her home. Pt states that it has been a big adjustment since [facility] 05/2022. She states she feels like such a failure sometimes and feels worthless sometimes. She states she does not open up to her family often about how she feels and tries to hold it in and stay strong. Will notify SW. CM?to follow for any further discharge planning/needs.? Pt voices no further concerns/needs at this time.? Advised pt to ask for?CM?if any further questions/concerns/needs arise.? Voices understanding. PLAN:??Home w/family support and discharge plans in place. SW to follow up. Rodney BSN?RN?CM
[2023-02-27 20:32] VITALS: BP 153/79; PULSE 84; RESP 16; TEMP 36.9; O2SAT 100
[2023-02-27] MEDS: Atorvastatin Calcium 40 MG Tablet PO (20:40)
[2023-02-27 21:15] LABS: Bedside Glucose 168 mg/dL (74-106)
[2023-02-27] MEDS: Vancomycin Trough/Random Due 1 LAB MC (23:01)
[2023-02-27 23:03] LABS: Vancomycin, Trough Level 9.7 ug/mL (5.0-15.0)
[2023-02-27] MEDS: 0.9% Normal Saline (250mL Bag) 250 ML 15 ML IV (23:49)
[2023-02-27] MEDS: Vancomycin HCl 750 MG in 0.9% Normal Saline (250mL Bag) 250 ML 250 MG IV (23:49)
--- NOTE | 2023-02-28 01:42 | PCM.RX.CS ---
Consult Antibiotic Management Pharmacy has been consulted to manage selected antiobiotic: Vancomycin Type of Intervention Type of Consult: Follow-up Labs Labs: Sodium 139 mmol/L (136-145) 02/27/23 06:41 Potassium 3.2 mmol/L (3.5-5.1) L 02/27/23 06:41 Chloride 111 mmol/L (98-107) H 02/27/23 06:41 Carbon Dioxide 26.0 mmol/L (21.0-32.0) 02/27/23 06:41 Anion Gap 2 (5-15) L 02/27/23 06:41 BUN 14 mg/dL (7-18) 02/27/23 06:41 Creatinine 0.58 mg/dL (0.55-1.02) 02/27/23 06:41 Est GFR (MDRD) Af Amer 138 mL/min (>60) 02/27/23 06:41 Est GFR (MDRD) Non-Af 114 mL/min (>60) 02/27/23 06:41 BUN/Creatinine Ratio 24.1 RATIO (10-20) H 02/27/23 06:41 Glucose 165 mg/dL (74-106) H 02/27/23 06:41 Vancomycin Trough 9.7 ug/mL (5.0-15.0) 02/27/23 22:17 Microbiology Microbiology: Microbiology 02/26/23 08:55 Wound - Other Gram Stain - Final 02/26/23 08:55 Wound - Other Wound Culture - Preliminary Staphylococcus aureus GNR lactose char filter tank tender Goal Trough Goal Trough: 15-20 mcg/mL Pharmacy Plan for Drug Dosing Pharmacy Plan for Drug Dosing: Pharmacy Service will continue to monitor and adjust dosing as required. TROUGH 9.7 @ 11 HOURS. INCREASE TO 750 Q12H AND FOLLOW UP TROUGH PRIOR TO 4TH DOSE FOR GOAL TROUGH 15-20 Follow-Up Labs Follow-Up Labs: Trough: Vancomycin Date/Time Labs Ordered Labs to be done on [date and time ordered]: 03/01 @ 1100
[2023-02-28] MEDS: Piperacil/Tazobactam 3.375 GM in 0.9% Normal Saline (50mL MB+) 50 ML IV ×3 (05:11→22:17)
[2023-02-28 05:15] VITALS: BP 157/72; PULSE 81; RESP 16; TEMP 36.8; O2SAT 100
[2023-02-28 06:48] LABS: Bedside Glucose 117 mg/dL (74-106)
[2023-02-28 07:42] LABS: Absolute Lymphocyte Count 1.03 X10^3/uL (0.83-4.51); Absolute Neutrophil Count 7.6 X10^3/uL (2.0-7.7); Basophil# 0.09 X10^3/uL; Basophil% 0.9 % (0-1); Eosinophil# 0.18 X10^3/uL; Eosinophils% 1.9 % (0-5); Hematocrit 26.1 % (37-47); Hemoglobin 8.7 g/dL (12.0-15.0); Lymphocyte # 1.03 X10^3/ul (0.83-4.51); Lymphocyte % 10.6 % (19-41); Mean Corp Hgb Conc 33.3 g/dL (32-36); Mean Corpuscular Hgb 30.5 pg (27.0-32.0); Mean Corpuscular Volume 91.6 fL (81-99); Mean Platelet Vol. 10.8 fl (6.2-12.0); Monocyte# 0.72 X10^3/uL; Monocyte% 7.4 % (0-10); NRBC Flagged by Analyzer 0 % (0-5); Neutrophil # 7.62 X10^3/uL (2.7-7.7); Neutrophil % 78.8 % (47-70); Platelet Count 218 K/mm3 (150-450); RBC Distribution Width CV 12.2 % (11.6-14.6); RBC Distribution Width SD 41.2 fl (35.1-43.9); Red Blood Count 2.85 M/mm3 (4.2-5.4); White Blood Count 9.7 K/mm3 (4.4-11.0)
[2023-02-28 08:18] LABS: Anion Gap 8 (5-15); BUN 14 mg/dL (7-18); BUN/Creat Ratio 24.6 RATIO (10-20); Chloride 109 mmol/L (98-107); Creatinine, Serum 0.57 mg/dL (0.55-1.02); EST Glomerular Filtration Rate 117 mL/min (>60); Est Glom Filt Rate - Afr Amer 141 mL/min (>60); Estimated Creatinine Clearance 78.36 ml/min; Glucose 114 mg/dL (74-106); Potassium 3.7 mmol/L (3.5-5.1); Sodium Level 140 mmol/L (136-145)
[2023-02-28 08:30] VITALS: BP 146/72; PULSE 82; RESP 18; TEMP 36.7; O2SAT 99
[2023-02-28] MEDS: Pantoprazole Sodium 40 MG Tablet PO (08:33)
[2023-02-28] MEDS: Juven (unflavored) Packet 1 PACKET PO ×2 (08:33→17:15)
[2023-02-28] MEDS: Lisinopril 5 MG Tablet PO (08:34)
[2023-02-28] MEDS: Ferrous Sulfate 325 MG Tablet PO (08:34)
[2023-02-28] MEDS: Cholecalciferol (VIT D3) 25 MCG TABLET (1,000 UNITS) PO (08:34)
[2023-02-28] MEDS: Empagliflozin 25 MG Tablet PO (08:35)
[2023-02-28] MEDS: Enoxaparin 30 MG/0.3 ML Syringe SC (08:35)
--- NOTE | 2023-02-28 11:02 | PN_ITS ---
Subjective Subjective Patient seen and examined. She feels well and has no complaints. He had an uneventful night. Review of systems otherwise negative. She has remained hemodynamically stable. Objective Data Objective Data Vital Signs: Vital Signs Temp Pulse Resp BP Pulse Ox O2 Del Method 98.0 F 82 18 146/72 H 99 Room Air 02/28/23 08:30 02/28/23 08:30 02/28/23 08:30 02/28/23 08:30 02/28/23 08:30 02/28/23 08:30 Oxygen Delivery Method Room Air Weight: 99 lb 4.81 oz Body Mass Index (BMI) 19.3 Intake & Output: Intake and Output for Last 24 Hours 02/26/23 02/27/23 02/28/23 23:59 23:59 23:59 Intake Total 1900.00 / 2100.00 2450 / 2450 765 / 765 Output Total 1600 / 1600 Balance 1900.00 / 1800.00 850 / 850 765 / 765 Lab / Micro Data 02/28/23 06:45 02/28/23 06:45 Labs: Laboratory Results - last 24 hr 02/27/23 11:25: POC Glucose 177 H 02/27/23 16:20: POC Glucose 139 H 02/27/23 20:39: POC Glucose 168 H 02/27/23 22:17: Vancomycin Trough 9.7 02/28/23 06:31: POC Glucose 117 H 02/28/23 06:45: WBC 9.7, RBC 2.85 L, Hgb 8.7 L, Hct 26.1 L, MCV 91.6, MCH 30.5, MCHC 33.3, RDW Std Deviation 41.2, RDW Coeff of Emily 12.2, Plt Count 218, MPV 10.8, Immature Gran % (Auto) 0.400, Neut % (Auto) 78.8 H, Lymph % (Auto) 10.6 L, [place] % (Auto) 7.4, Eos % (Auto) 1.9, Baso % (Auto) 0.9, Absolute Neuts (auto) 7.6, Absolute Lymphs (auto) 1.03, Nucleated RBC % 0, Sodium 140, Potassium 3.7, Chloride 109 H, Carbon Dioxide 23.0, Anion Gap 8, BUN 14, Creatinine 0.57, Estim Creat Clear Calc 78.36, Est GFR (MDRD) Af Amer 141, Est GFR (MDRD) Non-Af 117, BUN/Creatinine Ratio 24.6 H, Glucose 114 H, Calcium 9.0 Micro: Microbiology 02/26/23 11:00 Blood Culture (Wb) - Right Forearm Blood Culture - Preliminary No growth in 48 hours. 02/26/23 11:00 Blood Culture (Wb) - Left Forearm Blood Culture - Preliminary No growth in 48 hours. 02/26/23 08:55 Wound - Other Gram Stain - Final 02/26/23 08:55 Wound - Other Wound Culture - Final Meth. resistant Staph. aureus Enterobacter cloacae complex Physical Exam Const alert, oriented x3 and no apparent distress Constitutional Narrative: frail, thin General Appearance: cooperative HEENT normocephalic, head/scalp atraumatic, hearing grossly normal bilaterally, moist oral mucous membranes and oropharynx normal Eyes PERRL, EOMs intact bilaterally and conjunctivae normal Neck no lymphadenopathy and supple Lymph Lymphatic: no lymphadenopathy noted Resp normal respiratory effort, normal air movement, no retractions, no use of accessory muscles and clear to auscultation bilaterally Cardio regular rate, regular rhythm, S1 normal heart sound, S2 normal heart sound and no murmurs GI normal to inspection, nondistended, normoactive bowel sounds, soft to palpation and non-distended Extremity Extremity Narrative: Right BKA stump wrapped in bandage. Skin Skin Narrative: as under extremity Neuro oriented x3 and CN's II-XII intact bilaterally Neuro Narrative: RLE BKA Psych affect normal Appearance: appropriate Assessment & Plan Assessment/Plan (1) Cellulitis and abscess of right lower extremity: (2) Type 2 diabetes mellitus with hyperglycemia, without long-term current use of insulin: (3) Status post below knee amputation of right lower extremity: PLAN: Plan #Cellulitis of the RLE BKA stump * wbc is down further to 9.7. * she failed outpatient therapy after completing a course of PO keflex * xray of the right tibia-fibula showed s/p total knee amputation with evidence of soft tissue swelling at the level of the stump within the tissues. * on IV vancomycin and zosyn. * blood and wound cultures pending * Orthopedic surgery on board; for conservative management now * wound cultures growing MRSA and enterobacter cloacae both sensitive to Bactrim; blood cultures negative * #Anemia * Hb today is 8.7, up from 7.9 yesterday * baseline Hb is ~ 12 * check iron profile and stool for occult blood. * #Type 2 diabetes mellitus: On dapagliflozin. Insulin sliding scale. Checks ACHS. Also on glipizide and metformin. Will hold these for now. #Hyperlipidemia: On statin DVT prophylaxis: Lovenox Code status: full code * Charges/Coding Visit Charges Inpatient E&M: 40231 Subs Hosp L2
[2023-02-28] MEDS: Vancomycin HCl 750 MG in 0.9% Normal Saline (250mL Bag) 250 ML 250 MG IV ×2 (11:56→22:56)
[2023-02-28 12:00] LABS: Ferritin 226 ng/mL (8-252); Iron 22 ug/dL (50-170); Iron Binding Capacity,Total 279 ug/dL (250-450); PERCENT IRON SATURATION 7.9 % (15.0-55.0)
[2023-02-28] MEDS: Insulin Lispro 100 UNIT/ML INSULN.PEN SC ×2 (12:00→22:17)
[2023-02-28] MEDS: 0.9% Saline Lock 10 ML Syringe IV ×2 (12:03→15:35)
--- NOTE | 2023-02-28 13:23 | PCM.PN.ORT ---
Subjective Subjective Patient doing better. No fevers. Continues to have daily dressing changes and packing changes by wound care. No new symptoms. Objective Data Objective Data Vital Signs: Vital Signs Temp Pulse Resp BP Pulse Ox O2 Del Method 98.0 F 82 18 146/72 H 99 Room Air 02/28/23 08:30 02/28/23 08:30 02/28/23 08:30 02/28/23 08:30 02/28/23 08:30 02/28/23 08:30 Oxygen Delivery Method Room Air Weight: 99 lb 4.81 oz Body Mass Index (BMI) 19.3 Intake & Output: Intake and Output for Last 24 Hours 02/26/23 02/27/23 02/28/23 23:59 23:59 23:59 Intake Total 1900.00 / 2100.00 2450 / 2450 765 / 765 Output Total 1600 / 1600 Balance 1900.00 / 1800.00 850 / 850 765 / 765 Lab / Micro Data 02/28/23 06:45 02/28/23 06:45 Labs: Laboratory Results - last 24 hr 02/27/23 16:20: POC Glucose 139 H 02/27/23 20:39: POC Glucose 168 H 02/27/23 22:17: Vancomycin Trough 9.7 02/28/23 06:31: POC Glucose 117 H 02/28/23 06:45: WBC 9.7, RBC 2.85 L, Hgb 8.7 L, Hct 26.1 L, MCV 91.6, MCH 30.5, MCHC 33.3, RDW Std Deviation 41.2, RDW Coeff of Emily 12.2, Plt Count 218, MPV 10.8, Immature Gran % (Auto) 0.400, Neut % (Auto) 78.8 H, Lymph % (Auto) 10.6 L, [place] % (Auto) 7.4, Eos % (Auto) 1.9, Baso % (Auto) 0.9, Absolute Neuts (auto) 7.6, Absolute Lymphs (auto) 1.03, Nucleated RBC % 0, Sodium 140, Potassium 3.7, Chloride 109 H, Carbon Dioxide 23.0, Anion Gap 8, BUN 14, Creatinine 0.57, Estim Creat Clear Calc 78.36, Est GFR (MDRD) Af Amer 141, Est GFR (MDRD) Non-Af 117, BUN/Creatinine Ratio 24.6 H, Glucose 114 H, Calcium 9.0, Iron 22 L, TIBC 279, Iron Saturation 7.9 L, Ferritin 226 Micro: Microbiology 02/26/23 11:00 Blood Culture (Wb) - Right Forearm Blood Culture - Preliminary No growth in 48 hours. 02/26/23 11:00 Blood Culture (Wb) - Left Forearm Blood Culture - Preliminary No growth in 48 hours. 02/26/23 08:55 Wound - Other Gram Stain - Final 02/26/23 08:55 Wound - Other Wound Culture - Final Meth. resistant Staph. aureus Enterobacter cloacae complex Physical Exam Narrative As of the right lower extremity shows knee full range of motion. Dressings not removed today. Seen previously yesterday with 0 purulent scanty discharge and packing removed. Area of redness reduced. Assessment & Plan Assessment/Plan (1) Cellulitis and abscess of right lower extremity: PLAN: Plan Improving cellulitis with wound. Wound culture showed MRSA with Enterococcus. Blood cultures negative. Continue antibiotics per ID as appropriate. Orthopedics will sign off now. May reconsult if new questions arise. At this point no surgical intervention needed. Continue wound care. Charges/Coding Visit Charges Inpatient E&M: 40674 Subs Hosp L2
[2023-02-28] MEDS: 0.9% Normal Saline (250mL Bag) 250 ML 15 ML IV (15:37)
[2023-02-28 15:39] VITALS: BP 126/68; PULSE 72; RESP 20; TEMP 37; O2SAT 98
[2023-02-28 17:19] LABS: Bedside Glucose 159 mg/dL (74-106)
[2023-02-28 17:39] LABS: Bedside Glucose 130 mg/dL (74-106)
[2023-02-28 20:46] VITALS: BP 145/72; PULSE 80; RESP 16; TEMP 36.8; O2SAT 100
[2023-02-28 22:11] LABS: Bedside Glucose 188 mg/dL (74-106)
[2023-02-28] MEDS: Atorvastatin Calcium 40 MG Tablet PO (22:17)
[2023-03-01 04:44] VITALS: BP 122/65; PULSE 81; RESP 16; TEMP 36.8; O2SAT 98
[2023-03-01] MEDS: Piperacil/Tazobactam 3.375 GM in 0.9% Normal Saline (50mL MB+) 50 ML IV (05:39)
[2023-03-01] MEDS: Insulin Lispro 100 UNIT/ML INSULN.PEN SC ×2 (05:42→12:31)
[2023-03-01] MEDS: Juven (unflavored) Packet 1 PACKET PO (08:07)
[2023-03-01] MEDS: Ferrous Sulfate 325 MG Tablet PO (08:07)
[2023-03-01] MEDS: Enoxaparin 30 MG/0.3 ML Syringe SC (08:08)
[2023-03-01] MEDS: Empagliflozin 25 MG Tablet PO (08:08)
[2023-03-01] MEDS: Cholecalciferol (VIT D3) 25 MCG TABLET (1,000 UNITS) PO (08:09)
[2023-03-01] MEDS: Pantoprazole Sodium 40 MG Tablet PO (08:09)
[2023-03-01] MEDS: Lisinopril 5 MG Tablet PO (08:09)
[2023-03-01 08:25] VITALS: BP 139/75; PULSE 80; RESP 16; TEMP 36.9; O2SAT 99
[2023-03-01 08:30] LABS: Anion Gap 7 (5-15); BUN 19 mg/dL (7-18); BUN/Creat Ratio 35.2 RATIO (10-20); Calcium,Total 9.1 mg/dL (8.5-10.1); Chloride 107 mmol/L (98-107); Creatinine, Serum 0.54 mg/dL (0.55-1.02); EST Glomerular Filtration Rate 124 mL/min (>60); Est Glom Filt Rate - Afr Amer 150 mL/min (>60); Estimated Creatinine Clearance 82.72 ml/min; Glucose 154 mg/dL (74-106); Potassium 3.3 mmol/L (3.5-5.1); Sodium Level 140 mmol/L (136-145)
[2023-03-01 08:32] LABS: Absolute Lymphocyte Count 0.73 X10^3/uL (0.83-4.51); Absolute Neutrophil Count 5.9 X10^3/uL (2.0-7.7); Basophil# 0.05 X10^3/uL; Basophil% 0.7 % (0-1); Eosinophil# 0.19 X10^3/uL; Eosinophils% 2.6 % (0-5); Hematocrit 25.2 % (37-47); Hemoglobin 8.4 g/dL (12.0-15.0); Lymphocyte # 0.73 X10^3/ul (0.83-4.51); Lymphocyte % 9.8 % (19-41); Mean Corp Hgb Conc 33.3 g/dL (32-36); Mean Corpuscular Hgb 30.8 pg (27.0-32.0); Mean Corpuscular Volume 92.3 fL (81-99); Mean Platelet Vol. 11.8 fl (6.2-12.0); Monocyte# 0.54 X10^3/uL; Monocyte% 7.3 % (0-10); NRBC Flagged by Analyzer 0 % (0-5); Neutrophil # 5.89 X10^3/uL (2.7-7.7); Neutrophil % 79.2 % (47-70); POSITIVE COUNT YES; RBC Distribution Width CV 12.3 % (11.6-14.6); RBC Distribution Width SD 41.3 fl (35.1-43.9); Red Blood Count 2.73 M/mm3 (4.2-5.4); White Blood Count 7.4 K/mm3 (4.4-11.0)
[2023-03-01 09:26] LABS: Differential Indicated SCAN CRITERIA MET
[2023-03-01 09:32] LABS: Platelet Estimate ADEQUATE (ADEQ)
--- NOTE | 2023-03-01 10:50 | CASEMGMT ---
Social Work SW spoke w/pt in regard to how she is feeling mentally, as she had indicated to she does not have anyone to talk to. SW spoke w/pt initially about living arrangements, pt states she lives w/her , son and daughter. Pt states someone is always around. SW inquired if they are supportive, she states yes, just not all at the same time. Pt reports to be feeling better today mentally as compared to yesterday, states there are people she can talk to when feeling down. Pt states was diagnosed with Seasonal Affective Disorder 15 years ago, but it is not bad at this time. Pt reports to be feeling stable at present. She states that she wanted to go on medication at that time but her insurance would not cover the medication. Pt reports feeling suicidal at times in the past, but not in a long time. Pt has been in counseling at [facility] in 2001 and she also did counseling one other time some years ago at a place she thinks was called [facility]. She states this was after her father and she had a difficult time with it. SW did provide to pt a list of counseling agencies in the area. SW also explained to pt if she were to have an increase in depressive symptoms, to speak w/her PCP about it. Pt states understanding. SW did point out to pt [facility], explained that they have a 24 hotline if needed. Pt states understanding. No further social service needs anticipated at this time. JESSI Macedo
[2023-03-01 11:29] LABS: Bedside Glucose 160 mg/dL (74-106)
--- NOTE | 2023-03-01 11:29 | NURSING ---
reached out to PCP to request home med list to faxed over.
[2023-03-01 11:46] LABS: Vancomycin, Trough Level 15.1 ug/mL (5.0-15.0)
--- NOTE | 2023-03-01 11:46 | DCINST_ITS ---
Discharge Instructions Diet Discharge Diet: 1800 Calorie Control Diet Activity Discharge Activity: Return to Normal Activity Weight Bearing Status: Weight bearing as tolerated Dressing / Incision Call your doctor if your incision/area has: Sudden Increased Bleeding, Increased Pain/ Swelling, Increased Redness, Foul Smelling Discharge and Swelling at the incision site Call your doctor if you observe: Fever of 101 or Higher, Shortness of breath, Swelling in the ankles and Chest pain Follow Up Care Test Results: Test results from this visit will be discussed in further detail at your follow- up appointment, if applicable. Discharge Plan Admission Admit Date/Time: 02/26/23 10:23 Primary Reason for Your Visit: cellulitis Attending Provider: Sandie Monson Primary Care Provider: Art Herman Consulting Providers: Toni Flanagan Instructions Patient Instructions: Cellulitis Discharge Orders/Prescriptions Prescriptions: New sulfamethoxazole-trimethoprim [Bactrim DS] 800-160 mg tablet 1 tab PO BID Qty: 10 0RF Continued pantoprazole 40 mg tablet,delayed release (DR/EC) 40 mg PO DAILY Farxiga 10 mg tablet 10 mg PO DAILY albuterol sulfate 1 PUFF inhaler 2 puff inhalation Q4H PRN (Reason: Sob &/Or Wheezing) atorvastatin 40 mg tablet 40 mg PO QHS ferrous sulfate [FeroSul] 325 mg (65 mg iron) tablet 325 mg PO DAILY metformin 1,000 mg tablet 1,000 mg PO BID lisinopril 5 mg tablet 5 mg PO DAILY cholecalciferol (vitamin D3) 25 mcg (1,000 unit) tablet 25 mcg PO DAILY glipizide 5 mg tablet extended release 24hr 5 mg PO DAILY Qty: 30 5RF (DME) OneTouch Verio test strips Strip See Rx Instructions .Route Qty: 100 6RF Rx Instructions: twice a day Referrals / Follow Up: Art Herman MD [Primary Care Provider] - Within 2 Weeks [facility] [Non-Staff[facility] - Disposition Disposition (needs filled in before D/C Order can be placed): Home, Self Care
--- NOTE | 2023-03-01 11:49 | PCM.DC.SUM ---
Providers Date of Admission: 02/26/23 Date of Discharge: 03/01/23 Primary Care Physician: Dr. Art Herman MD Consultations 02/26/23 13:20 Consult: Onc/Wound/revenue officer Routine Comment: 02/26/23 14:49 Consult: Orthopedics Routine Consulting Provider: Toni Flanagan Reason for Consult: right BKA stump infection EMERGENT Consult: No MD Notified: Yes Date Notified: 02/26/23 Time Notified: 14:49 Method of Notification: Text Reason For Visit: RLE STUMP INFECTION Diagnosis Discharge Diagnosis (1) Cellulitis and abscess of right lower extremity: Status: Acute Code(s): L03.115 - Cellulitis of right lower limb; L02.415 - Cutaneous abscess of right lower limb Plan #Cellulitis of the RLE BKA stump wbc is down further to 9.7. she failed outpatient therapy after completing a course of PO keflex xray of the right tibia-fibula showed s/p total knee amputation with evidence of soft tissue swelling at the level of the stump within the tissues. on IV vancomycin and zosyn. blood and wound cultures pending Orthopedic surgery on board; for conservative management now wound cultures growing MRSA and enterobacter cloacae both sensitive to Bactrim; blood cultures negative #Anemia Hb today is 8.7, up from 7.9 yesterday baseline Hb is ~ 12 check iron profile and stool for occult blood. #Type 2 diabetes mellitus: On dapagliflozin. Insulin sliding scale. Checks ACHS. Also on glipizide and metformin. Will hold these for now. #Hyperlipidemia: On statin DVT prophylaxis: Lovenox Code status: full code Medications at Discharge Home Medications albuterol sulfate 90 mcg/actuation aerosol inhaler 2 puff inhalation Q4H PRN Sob &/Or Wheezing 10/01/18 dapagliflozin propanediol 10 mg tablet (Farxiga) 10 mg PO DAILY blood sugars 09/20/22 pantoprazole 40 mg tablet,delayed release 40 mg PO DAILY acid reflux 09/20/22 glipizide 5 mg tablet, extended release 24 hr 5 mg PO DAILY blood sugars #30 tabs 09/24/22 OneTouch Verio test strips (blood sugar diagnostic) #100 ea 11/06/22 atorvastatin 40 mg tablet 40 mg PO QHS cholesterol 02/26/23 cholecalciferol (vitamin D3) 25 mcg (1,000 unit) tablet 25 mcg PO DAILY supplement 02/26/23 ferrous sulfate 325 mg (65 mg iron) tablet (FeroSul) 325 mg PO DAILY supplement 02/26/23 lisinopril 5 mg tablet 5 mg PO DAILY blood pressure 02/26/23 metformin 1,000 mg tablet 1,000 mg PO BID blood sugars 02/26/23 sulfamethoxazole 800 mg-trimethoprim 160 mg tablet (Bactrim DS) 1 tab PO BID #10 tabs 03/01/23 Hospital Course Operations None Procedures None Summary of Care Provided Minutes Spent on Discharge: 50 Hospital Course: SANJUANITA BECERRA, is a 57 F with a PMH as outlined who presents via the ED on 02/26/2023 with a complaint of a pressure wound on the stump of her RLE BKA. She had been seen 2 weeks prior to admission for the same wound and was placed on oral antibiotics and counseled to keep pressure off of it. However, apparently her apartment is so small that she has been keeping cody stump on. She denied any fever, chills, chest pain, palpitations, dizziness, redness at hte left BKA stump site with associated drainage and redness. She therefore came into the ED for further evaluation. Vitals in the ED were blood pressure 149/97, pulse rate of 104, respirate rate of 16 and symptoms of 98.9 Fahrenheit. Oxygen saturation was 100% on room air. CBC showed hemoglobin of 9.6 with WBC of 12.5 and platelets of 219. Chemistry was essentially unremarkable. X-ray of the right lower extremity done showed soft tissue swelling of the post total knee amputation stump site with air within the tissues. She was admitted to be managed for cellulitis of the right lower extremity stump. She was started on broad-spectrum antibiotics with IV vancomycin and Zosyn. Orthopedic surgery was consulted due to concerns about possible osteomyelitis. Plastic surgery was not available to see patient. White cell count trended downwards. CT of the right lower extremity showed cellulitis with ulcer anteriorly with subjacent phlegmon but no evidence of osteomyelitis. Wound cultures grew MRSA and entero-Bacticlor K. Blood cultures were negative. The redness improved and she felt better. Patient's white cell count trended down and normalized. She was discharged home on 03/01/2023 on p.o. Bactrim per sensitivities. She received IV antibiotics in the hospital for 4 days and was discharged on a 5-day course of p.o. Bactrim. She is to follow-up with her primary care doctor within 1 to 2 weeks. She is also to follow-up with podiatry. Patient seen and examined prior to discharge. She felt much better and had no complaints. She had an uneventful night and review of systems otherwise negative. Labs and vitals reviewed. Home medication reviewed and reconciled. Physical Exam Const alert, oriented x3 and no apparent distress Constitutional Narrative: frail, thin General Appearance: cooperative HEENT normocephalic, head/scalp atraumatic, hearing grossly normal bilaterally, moist oral mucous membranes and oropharynx normal Mouth: oral and palatal mucosa normal Eyes PERRL, EOMs intact bilaterally and conjunctivae normal Neck no lymphadenopathy and supple Lymph Lymphatic: no lymphadenopathy noted Resp normal respiratory effort, normal air movement, no retractions, no use of accessory muscles and clear to auscultation bilaterally Cardio regular rate, regular rhythm, S1 normal heart sound, S2 normal heart sound and no murmurs GI normal to inspection, nondistended, normoactive bowel sounds, soft to palpation and non-distended Extremity Extremity Narrative: Right BKA stump wrapped in bandage. Skin Skin Narrative: as under extremity Neuro oriented x3 and CN's II-XII intact bilaterally Neuro Narrative: RLE BKA Psych affect normal Appearance: appropriate Weight / BMI Weight Weight: 99 lb 4.81 oz Body Mass Index (BMI) 19.3 ABG / Lab / Microbiology Data 03/01/23 06:50 03/01/23 06:50 Laboratory: Laboratory Results - last 24 hr 02/28/23 06:45: Iron 22 L, TIBC 279, Iron Saturation 7.9 L, Ferritin 226 02/28/23 11:51: POC Glucose 159 H 02/28/23 17:16: POC Glucose 130 H 02/28/23 20:19: POC Glucose 188 H 03/01/23 05:42: POC Glucose 160 H 03/01/23 06:50: WBC 7.4, RBC 2.73 L, Hgb 8.4 L, Hct 25.2 L, MCV 92.3, MCH 30.8, MCHC 33.3, RDW Std Deviation 41.3, RDW Coeff of Emily 12.3, Plt Count , MPV 11.8, Immature Gran % (Auto) 0.400, Neut % (Auto) 79.2 H, Lymph % (Auto) 9.8 L, [place] % (Auto) 7.3, Eos % (Auto) 2.6, Baso % (Auto) 0.7, Absolute Neuts (auto) 5.9, Absolute Lymphs (auto) 0.73 L, Nucleated RBC % 0, Platelet Estimate ADEQUATE, Sodium 140, Potassium 3.3 L, Chloride 107, Carbon Dioxide 26.0, Anion Gap 7, BUN 19 H, Creatinine 0.54 L, Estim Creat Clear Calc 82.72, Est GFR (MDRD) Af Amer 150, Est GFR (MDRD) Non-Af 124, BUN/Creatinine Ratio 35.2 H, Glucose 154 H, Calcium 9.1 03/01/23 11:01: Vancomycin Trough 15.1 H Microbiology: Microbiology 02/26/23 11:00 Blood Culture (Wb) - Right Forearm Blood Culture - Preliminary No growth in 48 hours. 02/26/23 11:00 Blood Culture (Wb) - Left Forearm Blood Culture - Preliminary No growth in 48 hours. 02/26/23 08:55 Wound - Other Gram Stain - Final 02/26/23 08:55 Wound - Other Wound Culture - Final Meth. resistant Staph. aureus Enterobacter cloacae complex D/C Instructions Discharge Diet: 1800 Calorie Control Diet Discharge Activity: Return to Normal Activity Weight Bearing Status: Weight bearing as tolerated Call your doctor if your incision/area has: Sudden Increased Bleeding, Increased Pain/ Swelling, Increased Redness, Foul Smelling Discharge and Swelling at the incision site Call your doctor if you observe: Fever of 101 or Higher, Shortness of breath, Swelling in the ankles and Chest pain Meaningful Use Info Meaningful Use Diagnoses (Choose all that apply): None applicable Discharge Plan Admission Admit Date/Time: 02/26/23 10:23 Primary Reason for Your Visit: cellulitis Attending Provider: Sandie Monson Primary Care Provider: Art Herman Consulting Providers: Toni Flanagan Instructions Forms: Work / School Excuse Patient Instructions: Cellulitis Discharge Orders/Prescriptions Prescriptions: New sulfamethoxazole-trimethoprim [Bactrim DS] 800-160 mg tablet 1 tab PO BID Qty: 10 0RF Continued pantoprazole 40 mg tablet,delayed release (DR/EC) 40 mg PO DAILY Farxiga 10 mg tablet 10 mg PO DAILY albuterol sulfate 1 PUFF inhaler 2 puff inhalation Q4H PRN (Reason: Sob &/Or Wheezing) atorvastatin 40 mg tablet 40 mg PO QHS ferrous sulfate [FeroSul] 325 mg (65 mg iron) tablet 325 mg PO DAILY metformin 1,000 mg tablet 1,000 mg PO BID lisinopril 5 mg tablet 5 mg PO DAILY cholecalciferol (vitamin D3) 25 mcg (1,000 unit) tablet 25 mcg PO DAILY glipizide 5 mg tablet extended release 24hr 5 mg PO DAILY Qty: 30 5RF (DME) OneTouch Verio test strips Strip See Rx Instructions .Route Qty: 100 6RF Rx Instructions: twice a day Referrals / Follow Up: Art Herman MD [Primary Care Provider] - Within 2 Weeks [facility] [Non-Staff] - Disposition Disposition (needs filled in before D/C Order can be placed): Home, Self Care Charges/Coding Visit Charges Inpatient E&M: 76439 Disch Hosp >30min
[2023-03-01 12:56] LABS: Bedside Glucose 191 mg/dL (74-106)
== END 2023-03-01 13:38 | disposition home or self-care (01) | DRG 349 ==
LOC: ED 10:21 → MS3 10:47
PROVIDERS: Admitting Provider Student in an Organized Health Care Education/Training Program; Emergency Provider Emergency Medicine; PCP Family Medicine; Visit Provider Student in an Organized Health Care Education/Training Program
DX: T87.43 Infection of amputation stump, right lower extremity (principal); L03.115 Cellulitis of right lower limb; E11.65 Type 2 diabetes mellitus with hyperglycemia; D64.9 Anemia, unspecified; B95.62 Methicillin resistant Staphylococcus aureus infection as the cause of diseases classified elsewhere; B95.2 Enterococcus as the cause of diseases classified elsewhere; Z89.511 Acquired absence of right leg below knee; I10 Essential (primary) hypertension; E78.00 Pure hypercholesterolemia, unspecified; F17.210 Nicotine dependence, cigarettes, uncomplicated; X58.XXXA Exposure to other specified factors, initial encounter; Z79.84 Long term (current) use of oral hypoglycemic drugs; Z79.899 Other long term (current) drug therapy
CPT/HCPCS: 36415; 73590; 73701; 80048; 80053; 80076; 80202; 82728; 82962; 83036; 83540; 83550; 83605; 85025; 85652; 87040; 87070; 87077; 87186; 87205; 97161; 97166; 97802; 99285; J7030; J7050; Q9967; A4216

== ENCOUNTER 2023-03-14 12:55 | Outpatient (RCR) | payer MEDICAID, SELFPAY ==
[2023-03-14 13:15] VITALS: BP 135/66; PULSE 99; RESP 16; TEMP 36.6; BMI 18.7
--- NOTE | 2023-03-15 00:03 | HP.PCM_ITS ---
History of Present Illness Date of Service: 03/14/23 Chief Complaint: R BKA stump wound History of Wound: Arianna Jerry is a 57 y/o female who presents to the wound healing center today for management of a right BKA stump wound. She is accompanied to the appointment today by her daughter who helps to supplement her history and also helps with her wound care. 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 At that time, they explored and washed out proximally in her thigh as well. Subsequently she initially had wound vac placed prior to secondary closure. She reports that the amputation site did ultimately heal fully and she was able to obtain a prosthetic. She had been doing very well with her prosthetic and getting back to work etc. Unfortunately about 1-2 months ago she developed a wound on her amputation stump due to the prosthetic rubbing in this area. She presented to the [facility] ER on 02/26/23 with concern of infection. She was admitted from 02/26-03/01 for IV antibiotics. Wound cultures were positive for staph aureus, blood cultures were negative. She was evaluated by orthopedics at that time as well. XR and CT scan performed during that admission were negative for signs of osteomyelitis. She was discharged with a course of Bactrim and referral here. At home, they have been doing daily dressing changes with iodoform and dry gauze dressing. Her daughter reports it has made significant improvement since her hospital stay. [facility] Medical History (Updated 03/15/23 @ 00:09 by FRANK Camp) Acid reflux Below knee amputation Cellulitis and abscess of right lower extremity Diabetes Dysphagia Sinus tachycardia seen on silk blocker Smoker Type 2 diabetes mellitus with hyperglycemia, without long-term current use of insulin Home Medications albuterol sulfate 90 mcg/actuation aerosol inhaler 2 puff inhalation Q4H PRN Sob &/Or Wheezing 10/01/18 [History Last Taken Unknown] dapagliflozin propanediol 10 mg tablet (Farxiga) 10 mg PO DAILY blood sugars 09/20/22 [History Last Taken 02/25/23] glipizide 5 mg tablet, extended release 24 hr 5 mg PO DAILY blood sugars #30 tabs 09/24/22 [Rx Last Taken 02/25/23] OneTouch Verio test strips (blood sugar diagnostic) #100 ea 11/06/22 [Rx Last Taken Unknown] atorvastatin 40 mg tablet 40 mg PO QHS cholesterol 02/26/23 [History Last Taken 02/25/23] cholecalciferol (vitamin D3) 25 mcg (1,000 unit) tablet 25 mcg PO DAILY supplement 02/26/23 [History Last Taken 02/25/23] ferrous sulfate 325 mg (65 mg iron) tablet (FeroSul) 325 mg PO DAILY supplement 02/26/23 [History Last Taken 02/25/23] lisinopril 5 mg tablet 5 mg PO DAILY blood pressure 02/26/23 [History Last Taken 02/25/23] metformin 1,000 mg tablet 1,000 mg PO BID blood sugars 02/26/23 [History Last Taken 02/25/23] Allergy/AdvReac Type Severity Reaction Status Date / Time No Known Allergies Allergy Verified 03/14/23 13:24 Family History Grandmother Breast cancer Father Heart disease Hypertension Sister Thyroid disorder Aunt Thyroid disorder Other Arthritis CVA (cerebral vascular accident) Kidney disease Myocardial infarction Surgical History (Updated 03/09/23 @ 00:11 by Xander Lindsey) H/O thumb surgery history EGD with dilatation History of appendectomy S/P appendectomy Status post below knee amputation of right lower extremity Social History (Updated 02/26/23 @ 09:[address] Adrien Godyo MD) household members: family Smoking Status: Current every day smoker tobacco type: cigarettes alcohol intake: never substance use type: does not use what type of physical activity do you participate in: walking Vital Signs Vital Signs Vital Signs: 03/14/23 13:15 Temperature 97.9 F Temperature Source Temporal Pulse Rate 99 Respiratory Rate 16 Blood Pressure 135/66 H Blood Pressure Mean 89 Blood Pressure Source Monitor Blood Pressure Position Sitting Blood Pressure Location Right Arm Oxygen Delivery Method Room Air Weight Weight: 96 lb Body Mass Index (BMI) 18.7 Physical Exam Const alert, oriented x3, no apparent distress and average body habitus General Appearance: cooperative HEENT normocephalic, head/scalp atraumatic, hearing grossly normal bilaterally, external ears normal and external nose normal Eyes EOMs intact bilaterally General Eye: normal appearance of both eyes Neck General: normal visual inspection Resp Effort and Inspection: able to speak in complete sentences; Negative for labored, stridor, retractions, uses accessory muscles or audible wheezes Cardio regular rate and regular rhythm Extremity Extremity Narrative: R BKA Skin Wounds: wounds noted Wound Narrative: R BKA with small wound in the midline of the stump. The wound has some tracking proximally, but does not probe to bone. The wound base is pink tissue with minimal slough. Mild serous drainage. No surrounding erythema, focal swelling, fluctuance/induration, foul odor, purulence. Neuro CN's II-XII intact bilaterally, moves all extremities and no focal motor deficits Speech: speech normal Psych mental status grossly normal Appearance: grossly normal Attitude: calm and engaged Activity / Motor Behavior: appropriate eye contact Judgement: judgement good Debridement Note Debridement Note Wound debrided: R BKA stump Laterality: Right Type of Debridement: Excisional debridement Anesthesia Used: 4% Lidocaine Solution Depth: Down to and including healthy tissue and in the subcutaneous layer Percentage of wound debrided: 100 Instrument Used: 3mm curette Tissue Removed: slough, devitalized tissue Severity: Fat Layer Exposed Amount of bleeding with debridement: Mild Bleeding Controlled with: Pressure Patient tolerated procedure: Patient tolerated procedure well Post-Debridement Measurements and Additional Note: Post-Debridement Measurements/Treatment - Nurse 1 - General Ulcer Assessment Start: 03/14/23 13:10 Freq: Status: Active Protocol: APRIL Activity Type Activity Date Activity User E-sign Co-sign Detail Recorded Client Recorded Date Recorded By Document 03/14/23 13:15 [facility] Desktop 03/14/23 13:22 [facility] 03/14/23 13:15 - Today's Visit Information Type of service Initial Visit Arrival Mode Wheelchair Transfer Assistance Other Transfer Assist (Other) 1 Accompanied by HERIBERTO Patient Identification Verified (Name & Yes ) Patient Requires Transmission-Based No Precautions Finger Stick Blood Sugar(mg/dl) (if 182 indicated): Blood Sugar Stated by Patient Height and Weight Height 5 ft Weight 96 lb Weight in Pounds 96.0 lbs Weight Measurement Method Stated by Patient Body Mass Index (BMI) 18.7 BMI Classification Normal BSA - Richard 1.37 Vital Signs Temperature (97.8 F-99.1 F) 97.9 F Temperature Source Temporal Pulse Rate (60-100) 99 Pulse Location Monitor Respiratory Rate (12-18) 16 Respiratory rate source Observation Oxygen Delivery Method Room Air Blood Pressure (90/60-120/80) 135/66 H Blood Pressure Mean 89 Source Monitor Position Sitting Blood Pressure Location Right Arm History Since Last Visit- (Skip if this is Patient's initial visit) Other Footwear RBKA Pain Scale: 0-10 Numeric Is Patient Pain Free? Yes Lower Extremity Assessment/ Foot Assessment/ Toe Nail Assessment Right -Lower Extremity Comment (If N/A Above R BKA 05/31/22 ) Left -Posterior Tibial Doppler Monophasic -Dorsalis Pedis Doppler Monophasic -Extremity Color Pale -Hair Growth on Legs No -Hair Growth on Toes No -Other Deformity No -Prior Foot Ulcer No -Charcot Joint No -Prior Amputation No -Thick Yes -Discolored Yes -Deformed No -Improper Length & Hygeine Yes Communication Assessment Preferred language Lithuanian Forwarder Operator Required No Able to Read Yes Able to Write Yes Communication Tools None Right Hearing Abillity Normal Left Hearing Abillity Normal Visual Assistive Devices Glasses Teaching Assessment Preferences Verbal,Written, Audio/Visual, Demonstration Barriers to Learning None Readiness To Learn Excellent Willingness to Engage in Self Management High Activies Readiness to Engage in Self Management High Activities Anxiety Level Calm Cooperation Cooperative Perception Coherent Interest in Health Problem Asks Questions Does Patient Smoke tobacco or other No substances Smoking Status Current every day smoker Is Patient Diabetic Yes Functional Assessment Recent Decline in Ability to Perform Ambulation, Transferring Culture/Temple/Can Tender Cultural/Temple Needs that may affect No Treatment Plan Teaching: Wound Center *Welcome to the Wound Center -Person Taught Patient,Family -Teaching Method Discussion -Response to teaching Verbalize understanding Welcome to the Wound Care Center English ROGERS - Nurse 1 - General Ulcer Measurement Start: 03/14/23 13:10 Freq: Status: Active Protocol: Activity Type Activity Date Activity User E-sign Co-sign Detail Recorded Client Recorded Date Recorded By Document 03/14/23 13:15 [facility] Desktop 03/14/23 13:22 [facility] 03/14/23 13:15 Wound Center Nurse 1 #1- R STUMP -Combined with other wound No -Current Size (cm) - Length 0.6 -Current Size (cm) - Width 0.6 -Current Size (cm) - Depth 0.7 -Total Square Cm 0.36 -Date of Last Picture (Recall this 03/14/23 field) -Photo Taken Yes -Tunneling No -Undermining/Tunneling Yes -Undermining/Tunneling Starts (O'clock 12 ) -Undermining/Tunneling Ends (O'clock) 12 -Maximum Distance (cm) 1.8 -Circular Undermining No -Exudate Amt Medium -Exudate Type Serosanguineous -Wound Margin Distinct, Outline Attached -Granulation Amt Large (67-100%) -Granulation Quality Red -Slough/Fibrin No -Necrosis Amt None Present (0 %) -Texture (Edwina-wound Skin Appearance) Assessed, Scarring -Moisture (Edwina-wound Skin Appearance) Assessed -Color (Edwina-wound Skin Appearance) Assessed -Temperature (Edwina-wound Skin No Abnormality Appearance) (Pt Warm) -Tenderness on Palpation (Edwina-wound No Skin Appearance) -Ulcer Cleansing Soap and Water -Foul Odor after Cleansing No -Anesthetic Used 5% Lidocaine Gel WC - Nurse 2 - General Ulcer CM Notes Start: 03/14/23 13:10 Freq: Status: Active Protocol: Activity Type Activity Date Activity User E-sign Co-sign Detail Recorded Client Recorded Date Recorded By Document 03/14/23 15:57 PL [id number] 03/14/23 15:58 PL 03/14/23 15:57 Wound Center Nurse 2 -Time 13:45 -Correct Patient Yes -Correct Side, Site, Position Yes -Correct Procedure Yes -Procedure Performed Yes -Type of Procedure Debridement -Clinical Debridement Subcutaneous -Tissue Removed Subcutaneous -Post Debridement (cm) - Length 0.6 -Post Debridement (cm) - Width 0.6 -Post Debridement (cm) - Depth 1.0 -Total Square (Post) (cm) 0.36 -Area of Debridement (cm) - Length 0.6 -Area of Debridement (cm) - Width 0.6 -Total Square (Area) (cm) 0.36 -Tunneling No -Undermining/Tunneling No -Circular Undermining No -Wound/Ulcer Outcome Not Healed -Ulcer Cleansing Rinsed/ Irrigated with Saline -Foul Odor after Cleansing No -Bioengineered Tissue No -Bleeding Controlled with Pressure -Treatment Response Procedure Tolerated Well -Debridement - Subq, 1st 20sq cm Yes Pain Scale: 0-10 Numeric Is Patient Pain Free? Yes WC - Nurse 3 - General Ulcer D/C NN Start: 03/14/23 13:10 Freq: Status: Active Protocol: Activity Type Activity Date Activity User E-sign Co-sign Detail Recorded Client Recorded Date Recorded By Document 03/14/23 14:11 [facility] Desktop 03/14/23 14:12 [facility] 03/14/23 14:11 Wound Care Center Nurse 3 #1- R STUMP -Ulcer Cleansing Rinsed/ Irrigated with Saline -Foul Odor after Cleansing No -Primary Dressing Applied Mepilex Border, Promogran Sangeeta Matter -Mepilex Border 1 -Promogran Sangeeta Matter 1 Treatment Response Procedure Tolerated Well Pain Scale: 0-10 Numeric Is Patient Pain Free? 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 Reviewed prior XR and CT images, no evidence of osteomyelitis. She recently completed antibiotics. No signs/symptoms of infection on exam today. Will pack the wound with Sangeeta. Cover with foam border dressing. Change daily or more often as needed to keep clean and dry. Wash gently with soap and water and pat to dry with dressing changes. Continue to wear stump boilermaker ship for compression. Elevate legs when resting. Continue to avoid utilizing prosthetic for now to avoid pressure to the area of the wound. We discussed the importance of maintaining good glycemic control. Try to reduce simple carbohydrates/sugars and increase protein intake to support healing. Return to the wound care center in 1 week.
== END 2023-03-17 23:59 | disposition home or self-care (01) ==
LOC: WC 12:55
PROVIDERS: PCP Family Medicine; Referring Provider Student in an Organized Health Care Education/Training Program; Visit Provider Physician Assistant
DX: E11.622 Type 2 diabetes mellitus with other skin ulcer (principal); T87.89 Other complications of amputation stump; L97.812 Non-pressure chronic ulcer of other part of right lower leg with fat layer exposed; E11.65 Type 2 diabetes mellitus with hyperglycemia; Z79.84 Long term (current) use of oral hypoglycemic drugs; Y83.5 Amputation of limb(s) as the cause of abnormal reaction of the patient, or of later complication, without mention of misadventure at the time of the procedure; Z79.899 Other long term (current) drug therapy; F17.210 Nicotine dependence, cigarettes, uncomplicated
CPT/HCPCS: 11042; 99213; G0463

== ENCOUNTER 2023-04-04 13:30 | Outpatient (RCR) | payer MEDICAID, SELFPAY ==
[2023-03-18 00:27] VITALS: BP 135/66; PULSE 99; RESP 16; TEMP 36.6; BMI 18.7
[2023-03-21 13:09] VITALS: BP 145/72; PULSE 101; RESP 16; TEMP 36.6; BMI 18.7
--- NOTE | 2023-03-22 14:38 | PCM.WC.PN ---
History of Present Illness Date of Service: 03/21/23 Chief Complaint: R BKA stump wound History of Wound: Arianna Jerry is a 57 y/o female who presents to the wound healing center today for management of a right BKA stump wound. She is accompanied to the appointment today by her daughter who helps to supplement her history and also helps with her wound care. 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 At that time, they explored and washed out proximally in her thigh as well. Subsequently she initially had wound vac placed prior to secondary closure. She reports that the amputation site did ultimately heal fully and she was able to obtain a prosthetic. She had been doing very well with her prosthetic and getting back to work etc. Unfortunately about 1-2 months ago she developed a wound on her amputation stump due to the prosthetic rubbing in this area. She presented to the [facility] ER on 02/26/23 with concern of infection. She was admitted from 02/26-03/01 for IV antibiotics. Wound cultures were positive for staph aureus, blood cultures were negative. She was evaluated by orthopedics at that time as well. XR and CT scan performed during that admission were negative for signs of osteomyelitis. She was discharged with a course of Bactrim and referral here. At home, they have been doing daily dressing changes with iodoform and dry gauze dressing. Her daughter reports it has made significant improvement since her hospital stay. Subjective Subjective She reports she did not receive her wound care supplies this last week. Otherwise, has been making do with the supplies we sent her home with last week. No issues with dressing changes. Her daughter performs her dressing changes and feels the wound continues to seem to be decreasing in depth. They report no new or worsening drainage, foul odor, redness, swelling. She did have her appointment with ENT earlier this week. They made some adjustments to her prosthesis but will make further adjustments once the wound is healed. Objective Data Objective Data Vital Signs: Vital Signs Temp Pulse Resp BP O2 Del Method 97.9 F 101 H 16 145/72 H Room Air 03/21/23 13:09 03/21/23 13:09 03/21/23 13:09 03/21/23 13:09 03/21/23 13:09 Oxygen Delivery Method Room Air Weight: 96 lb Body Mass Index (BMI) 18.7 Charges/Coding Procedures Integumentary 111xxx-113xx: 01547 Ani subq tissue 20 sq cm/< Physical Exam Const alert, oriented x3, no apparent distress and average body habitus General Appearance: cooperative HEENT normocephalic, head/scalp atraumatic, hearing grossly normal bilaterally, external ears normal and external nose normal Eyes EOMs intact bilaterally General Eye: normal appearance of both eyes Resp Effort and Inspection: able to speak in complete sentences; Negative for labored, stridor, retractions, uses accessory muscles or audible wheezes Extremity Extremity Narrative: R BKA Skin Wounds: wounds noted Wound Narrative: R BKA with small wound in the midline of the stump, slightly decreased in size this week. The wound has some tracking proximally, but does not probe to bone. The wound base is pink tissue with minimal slough. Mild serous drainage. No surrounding erythema, focal swelling, fluctuance/induration, foul odor, purulence. Psych mental status grossly normal Appearance: grossly normal Attitude: calm and engaged Activity / Motor Behavior: appropriate eye contact Judgement: judgement good Debridement Note Debridement Note Wound debrided: R BKA stump Laterality: Right Type of Debridement: Excisional debridement Anesthesia Used: 4% Lidocaine Solution Depth: Down to and including healthy tissue and in the subcutaneous layer Percentage of wound debrided: 100 Instrument Used: 3mm curette Tissue Removed: slough, devitalized tissue Severity: Fat Layer Exposed Amount of bleeding with debridement: Mild Bleeding Controlled with: Pressure Patient tolerated procedure: Patient tolerated procedure well Post-Debridement Measurements and Additional Note: Post-Debridement Measurements/Treatment - Nurse 1 - General Ulcer Assessment Start: 03/21/23 13:09 Freq: Status: Active Protocol: APRIL Activity Type Activity Date Activity User E-sign Co-sign Detail Recorded Client Recorded Date Recorded By Document 03/21/23 13:09 [facility] Desktop 03/21/23 13:16 [facility] 03/21/23 13:09 - Today's Visit Information Type of service Follow-up Visit (Physician/APPLICATION DEVELOPMENT PROJECT MANAGER ) Arrival Mode Wheelchair Transfer Assistance None Accompanied by mayra Patient Identification Verified (Name & Yes ) Patient Requires Transmission-Based No Precautions Height and Weight Body Mass Index (BMI) 18.7 BMI Classification Normal Vital Signs Temperature (97.8 F-99.1 F) 97.9 F Temperature Source Temporal Pulse Rate (60-100) 101 H Pulse Location Monitor Respiratory Rate (12-18) 16 Respiratory rate source Observation Oxygen Delivery Method Room Air Blood Pressure (90/60-120/80) 145/72 H Blood Pressure Mean (mm Hg) 96 Source Monitor Position Sitting Blood Pressure Location Right Arm History Since Last Visit- (Skip if this is Patient's initial visit) Have you changed medications since your No last visit? Any new allergies or adverse reactions No Had a fall/change in ADL's that may No increase risk of falls Signs or symptoms of abuse and/or No neglect since last visit Have you been in the hospital since your No last visit? Has dressing in place as prescribed Yes Has compression in place as prescribed N/A Has offloadiing in place as prescribed N/A Experienced any changes in pain level or No management Left Footwear Regular Shoe Pain Scale: 0-10 Numeric Is Patient Pain Free? Yes SUE - Nurse 1 - General Ulcer Measurement Start: 03/21/23 13:09 Freq: Status: Active Protocol: Activity Type Activity Date Activity User E-sign Co-sign Detail Recorded Client Recorded Date Recorded By Document 03/21/23 13:09 [facility] Desktop 03/21/23 13:16 [facility] 03/21/23 13:09 Wound Center Nurse 1 #1- R STUMP -Combined with other wound No -Current Size (cm) - Length 0.5 -Current Size (cm) - Width 0.4 -Current Size (cm) - Depth 0.3 -Total Square Cm 0.20 -Date of Last Picture (Recall this 03/21/23 field) -Photo Taken Yes -Epithelialization None Present -Exudate Amt Medium -Exudate Type Purulent -Wound Margin Distinct, Outline Attached -Granulation Amt Large (67-100%) -Granulation Quality Red -Slough/Fibrin Yes -Necrosis Amt Small (1-33%) -Necrotic Tissue Type Adherent Slough -Texture (Edwina-wound Skin Appearance) Assessed, Scarring -Moisture (Edwina-wound Skin Appearance) Assessed -Color (Edwina-wound Skin Appearance) Assessed -Temperature (Edwina-wound Skin No Abnormality Appearance) (Pt Warm) -Tenderness on Palpation (Edwina-wound No Skin Appearance) -Ulcer Cleansing Rinsed/ Irrigated with Saline -Foul Odor after Cleansing No -Anesthetic Used 5% Lidocaine Gel WC - Nurse 2 - General Ulcer CM Notes Start: 03/21/23 13:09 Freq: Status: Active Protocol: Activity Type Activity Date Activity User E-sign Co-sign Detail Recorded Client Recorded Date Recorded By Document 03/21/23 16:19 PL [id number] 03/21/23 16:20 PL 03/21/23 16:19 Wound Center Nurse 2 -Time 13:42 -Correct Patient Yes -Correct Side, Site, Position Yes -Correct Procedure Yes -Procedure Performed Yes -Type of Procedure Debridement -Clinical Debridement Subcutaneous -Tissue Removed Subcutaneous -Post Debridement (cm) - Length 0.6 -Post Debridement (cm) - Width 0.5 -Post Debridement (cm) - Depth 0.2 -Total Square (Post) (cm) 0.30 -Area of Debridement (cm) - Length 0.6 -Area of Debridement (cm) - Width 0.5 -Total Square (Area) (cm) 0.30 -Tunneling Yes -Tunneling Position (O'clock) 12 -Tunneling Distance (cm) 0.4 -Wound/Ulcer Outcome Not Healed -Ulcer Cleansing Rinsed/ Irrigated with Saline -Foul Odor after Cleansing No -Bioengineered Tissue No -Bleeding Controlled with Pressure -Treatment Response Procedure Tolerated Well -Debridement - Subq, 1st 20sq cm Yes Pain Scale: 0-10 Numeric Is Patient Pain Free? Yes - Nurse 3 - General Ulcer D/C NN Start: 03/21/23 13:09 Freq: Status: Active Protocol: Activity Type Activity Date Activity User E-sign Co-sign Detail Recorded Client Recorded Date Recorded By Document 03/21/23 14:01 Laptop 03/21/23 14:02 03/21/23 14:01 Wound Care Center Nurse 3 #1- R STUMP -Ulcer Cleansing Rinsed/ Irrigated with Saline -Foul Odor after Cleansing No -Primary Dressing Applied Mepilex Border, Promogran Sangeeta Matter -Primary Dressing Covered/Secured with Dry Gauze -Mepilex Border 1 -Promogran Sangeeta Matter 1 Pain Scale: 0-10 Numeric Is Patient Pain Free? 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 No signs/symptoms of infection on exam today. Will continue to pack the wound with lightly moistened Sangeeta. Cover with foam border or dry gauze dressing. Change daily or more often as needed to keep clean and dry. Wash gently with soap and water and pat to dry with dressing changes. Continue to wear stump service developer for compression. Elevate legs when resting. Continue to avoid utilizing prosthetic for now to avoid pressure to the area of the wound. We discussed the importance of maintaining good glycemic control. Try to reduce simple carbohydrates/sugars and increase protein intake to support healing. Return to the wound care center in 1 week.
[2023-04-04 13:50] VITALS: BP 149/71; PULSE 106; RESP 18; TEMP 36.2; BMI 18.7
--- NOTE | 2023-04-04 17:11 | PCM.WC.PN ---
History of Present Illness Date of Service: 04/04/23 Chief Complaint: R BKA stump wound History of Wound: Arianna Jerry is a 57 y/o female who presents to the wound healing center today for management of a right BKA stump wound. She is accompanied to the appointment today by her daughter who helps to supplement her history and also helps with her wound care. 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 At that time, they explored and washed out proximally in her thigh as well. Subsequently she initially had wound vac placed prior to secondary closure. She reports that the amputation site did ultimately heal fully and she was able to obtain a prosthetic. She had been doing very well with her prosthetic and getting back to work etc. Unfortunately about 1-2 months ago she developed a wound on her amputation stump due to the prosthetic rubbing in this area. She presented to the [facility] ER on 02/26/23 with concern of infection. She was admitted from 02/26-03/01 for IV antibiotics. Wound cultures were positive for staph aureus, blood cultures were negative. She was evaluated by orthopedics at that time as well. XR and CT scan performed during that admission were negative for signs of osteomyelitis. She was discharged with a course of Bactrim and referral here. At home, they have been doing daily dressing changes with iodoform and dry gauze dressing. Her daughter reports it has made significant improvement since her hospital stay. Subjective Subjective She reports she still has not received her wound care supplies. Has continued to make due with the extra supplies we sent with her last week. No issues with dressing changes. Her daughter performs her dressing changes and feels the wound continues to seem to be decreasing in depth. She does note that the wound seems to be scabbing over . They report no new or worsening drainage, foul odor, redness, swelling. Objective Data Objective Data Vital Signs: Vital Signs Temp Pulse Resp BP O2 Del Method 97.1 F L 106 H 18 149/71 H Room Air 04/04/23 13:50 04/04/23 13:50 04/04/23 13:50 04/04/23 13:50 04/04/23 13:50 Oxygen Delivery Method Room Air Weight: 96 lb Body Mass Index (BMI) 18.7 Charges/Coding Procedures Integumentary 111xxx-113xx: [id number] Ani subq tissue 20 sq cm/< Physical Exam Const alert, oriented x3, no apparent distress and average body habitus General Appearance: cooperative HEENT normocephalic, head/scalp atraumatic, hearing grossly normal bilaterally, external ears normal and external nose normal Eyes EOMs intact bilaterally General Eye: normal appearance of both eyes Resp Effort and Inspection: able to speak in complete sentences; Negative for labored, stridor, retractions, uses accessory muscles or audible wheezes Extremity Extremity Narrative: R BKA Skin Wounds: wounds noted Wound Narrative: R BKA with small wound in the midline of the stump, slightly decreased in size this week. Depth/tracking continues to improve. The wound base is pink tissue with minimal slough. Mild serous drainage. No surrounding erythema, focal swelling, fluctuance/induration, foul odor, purulence. Psych mental status grossly normal Appearance: grossly normal Attitude: calm and engaged Activity / Motor Behavior: appropriate eye contact Judgement: judgement good Debridement Note Debridement Note Wound debrided: R BKA stump Laterality: Right Type of Debridement: Excisional debridement Anesthesia Used: 4% Lidocaine Solution Depth: Down to and including healthy tissue and in the subcutaneous layer Percentage of wound debrided: 100 Instrument Used: 3mm curette Tissue Removed: slough, devitalized tissue Severity: Fat Layer Exposed Amount of bleeding with debridement: Mild Bleeding Controlled with: Pressure Patient tolerated procedure: Patient tolerated procedure well Post-Debridement Measurements and Additional Note: Post-Debridement Measurements/Treatment - Nurse 1 - General Ulcer Assessment Start: 03/21/23 13:09 Freq: Status: Active Protocol: [email or web address].CEELSTE Activity Type Activity Date Activity User E-sign Co-sign Detail Recorded Client Recorded Date Recorded By Document 03/21/23 13:09 [facility] Desktop 03/21/23 13:16 [facility] Document 04/04/23 13:50 KW Desktop 04/04/23 13:57 KW 03/21/23 04/04/23 13:09 13:50 - Today's Visit Information Type of service Follow-up Visit Follow-up Visit (Physician/FISHERY BIOLOGIST (Physician/FISHERY BIOLOGIST ) ) Arrival Mode Wheelchair Wheelchair Transfer Assistance None Accompanied by mayra daughter Patient Identification Verified (Name & Yes Yes ) Patient Requires Transmission-Based No Precautions Finger Stick Blood Sugar(mg/dl) (if 185 indicated): Blood Sugar Stated by Patient Height and Weight Body Mass Index (BMI) 18.7 18.7 BMI Classification Normal Normal Vital Signs Temperature (97.8 F-99.1 F) 97.9 F 97.1 F L Temperature Source Temporal Temporal Pulse Rate (60-100) 101 H 106 H Pulse Location Monitor Monitor Respiratory Rate (12-18) 16 18 Respiratory rate source Observation Observation Oxygen Delivery Method Room Air Room Air Blood Pressure (90/60-120/80) 145/72 H 149/71 H Blood Pressure Mean (mm Hg) 96 97 Source Monitor Monitor Position Sitting Sitting Blood Pressure Location Right Arm Right Arm History Since Last Visit- (Skip if this is Patient's initial visit) Have you changed medications since your No No last visit? Any new allergies or adverse reactions No No Had a fall/change in ADL's that may No No increase risk of falls Signs or symptoms of abuse and/or No No neglect since last visit Have you been in the hospital since your No No last visit? Has dressing in place as prescribed Yes Yes Has compression in place as prescribed N/A Yes Has offloadiing in place as prescribed N/A N/A Experienced any changes in pain level or No No management Left Footwear Regular Shoe Regular Shoe Right Footwear No Footwear Pain Scale: 0-10 Numeric Is Patient Pain Free? Yes Yes WC - Nurse 1 - General Ulcer Measurement Start: 03/21/23 13:09 Freq: Status: Active Protocol: Activity Type Activity Date Activity User E-sign Co-sign Detail Recorded Client Recorded Date Recorded By Document 03/21/23 13:09 [facility] [email or web address] 03/21/23 13:16 [facility] Document 04/04/23 13:50 Desktop 04/04/23 13:57 KW 03/21/23 04/04/23 13:09 13:50 Wound Center Nurse 1 #1- R STUMP -Combined with other wound No -Current Size (cm) - Length 0.5 0.9 -Current Size (cm) - Width 0.4 0.4 -Current Size (cm) - Depth 0.3 0.1 -Total Square Cm 0.20 0.36 -Date of Last Picture (Recall this 03/21/23 04/04/23 field) -Photo Taken Yes Yes -Epithelialization None Present -Exudate Amt Medium Small -Exudate Type Purulent Serosanguineous -Wound Margin Distinct, Distinct, Outline Outline Attached Attached -Granulation Amt Large (67-100%) -Granulation Quality Red -Slough/Fibrin Yes -Necrosis Amt Small (1-33%) -Necrotic Tissue Type Adherent Slough -Texture (Edwina-wound Skin Appearance) Assessed, Assessed Scarring -Moisture (Edwina-wound Skin Appearance) Assessed Assessed,Dry/ Scaly -Color (Edwina-wound Skin Appearance) Assessed Assessed -Temperature (Edwina-wound Skin No Abnormality No Abnormality Appearance) (Pt Warm) (Pt Warm) -Tenderness on Palpation (Edwina-wound No Skin Appearance) -Ulcer Cleansing Rinsed/ Rinsed/ Irrigated with Irrigated with Saline Saline -Foul Odor after Cleansing No -Anesthetic Used 5% Lidocaine 5% Lidocaine Gel Gel -Wound Comment(s) scabbed WC - Nurse 2 - General Ulcer CM Notes Start: 03/21/23 13:09 Freq: Status: Active Protocol: Activity Type Activity Date Activity User E-sign Co-sign Detail Recorded Client Recorded Date Recorded By Document 03/21/23 16:19 PL [id number] 03/21/23 16:20 PL Document 04/04/23 16:12 PL [id number] 04/04/23 16:14 PL 03/21/23 04/04/23 16:19 16:12 Wound Center Nurse 2 #1- R STUMP -Time 13:42 14:22 -Correct Patient Yes Yes -Correct Side, Site, Position Yes Yes -Correct Procedure Yes Yes -Procedure Performed Yes Yes -Type of Procedure Debridement Debridement -Clinical Debridement Subcutaneous Subcutaneous -Tissue Removed Subcutaneous Subcutaneous -Post Debridement (cm) - Length 0.6 0.6 -Post Debridement (cm) - Width 0.5 0.4 -Post Debridement (cm) - Depth 0.2 0.2 -Total Square (Post) (cm) 0.30 0.24 -Area of Debridement (cm) - Length 0.6 0.6 -Area of Debridement (cm) - Width 0.5 0.4 -Total Square (Area) (cm) 0.30 0.24 -Tunneling Yes No -Tunneling Position (O'clock) 12 -Tunneling Distance (cm) 0.4 -Undermining/Tunneling No -Circular Undermining No -Wound/Ulcer Outcome Not Healed Not Healed -Ulcer Cleansing Rinsed/ Rinsed/ Irrigated with Irrigated with Saline Saline -Foul Odor after Cleansing No No -Bioengineered Tissue No No -Bleeding Controlled with Pressure Pressure -Treatment Response Procedure Procedure Tolerated Well Tolerated Well -Debridement - Subq, 1st 20sq cm Yes Yes Pain Scale: 0-10 Numeric Is Patient Pain Free? Yes Yes - Nurse 3 - General Ulcer D/C NN Start: 03/21/23 13:09 Freq: Status: Active Protocol: Activity Type Activity Date Activity User E-sign Co-sign Detail Recorded Client Recorded Date Recorded By Document 03/21/23 14:01 Laptop 03/21/23 14:02 Document 04/04/23 14:44 Desktop 04/04/23 14:45 Document 04/04/23 14:49 [facility] Desktop 04/04/23 14:50 [facility] 03/21/23 04/04/23 04/04/23 14:01 14:44 14:49 Wound Care Center Nurse 3 #1- R STUMP -Ulcer Cleansing Rinsed/ Not Cleansed Rinsed/ Irrigated with Irrigated with Saline Saline -Foul Odor after Cleansing No No No -Primary Dressing Applied Mepilex Border, Mepilex Border, Mepilex Border, Promogran NonAdherent NonAdherent Sangeeta Matter Contact Layer, Contact Layer, Promogran Promogran Sangeeta Matter Sangeeta Matter -Primary Dressing Covered/Secured with Dry Gauze -Mepilex Border 1 1 1 -Promogran Sangeeta Matter 1 1 1 Treatment Response Procedure Tolerated Well Pain Scale: 0-10 Numeric Is Patient Pain Free? 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 No signs/symptoms of infection on exam today. Will continue to pack the wound with lightly moistened Sangeeta. Will cover with adaptic to try to better preserve moisture in the wound bed. Will continue to follow with foam-border or bulky dry dressing to provide padding. Change daily or more often as needed to keep clean and dry. Wash gently with soap and water and pat to dry with dressing changes. Continue to wear stump dairy hand for compression. Elevate legs when resting. Continue to avoid utilizing prosthetic for now to avoid pressure to the area of the wound. We discussed the importance of maintaining good glycemic control. Try to reduce simple carbohydrates/sugars and increase protein intake to support healing. Return to the wound care center in 1 week.
== END 2023-04-17 23:59 | disposition home or self-care (01) ==
LOC: WC 13:30
PROVIDERS: PCP Family Medicine; Referring Provider Student in an Organized Health Care Education/Training Program; Visit Provider Physician Assistant
DX: T87.89 Other complications of amputation stump (principal); Z89.511 Acquired absence of right leg below knee
CPT/HCPCS: 11042

== ENCOUNTER → 2023-04-17 | Outpatient (CLI) | payer MEDICAID, SELFPAY ==
[2023-04-17 13:59] LABS: Vitamin D,25 Hydroxy 27.8 ng/mL
[2023-04-17 14:08] LABS: Cholesterol 166 mg/dL (200); High Density Lipoprotein 103 mg/dL; Thyroid Stim Hormone (TSH) 0.47 uIU/mL (0.358-3.74); Triglycerides 89 mg/dL; Very Low Density Lipoprotein 18 mg/dL (5-40)
== END | disposition home or self-care (01) ==
LOC: LAB 12:21
PROVIDERS: PCP Family Medicine; Referring Provider Nurse Practitioner Family; Visit Provider Nurse Practitioner Family
DX: E11.9 Type 2 diabetes mellitus without complications (principal); E55.9 Vitamin D deficiency, unspecified
CPT/HCPCS: 36415; 80061; 82306; 84443

== ENCOUNTER 2023-05-16 14:45 | Outpatient (RCR) | payer MEDICAID, SELFPAY ==
[2023-04-18 00:22] VITALS: BP 149/71; PULSE 106; RESP 18; TEMP 36.2; BMI 18.7
[2023-04-18 13:40] VITALS: BP 137/64; PULSE 89; RESP 18; TEMP 36.3; BMI 18.7
--- NOTE | 2023-04-19 09:28 | PN.PCM_ITS ---
History of Present Illness Date of Service: 04/18/23 Chief Complaint: R BKA stump wound History of Wound: Arianna Jerry is a 57 y/o female who presents to the wound healing center today for management of a right BKA stump wound. She is accompanied to the appointment today by her daughter who helps to supplement her history and also helps with her wound care. 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 At that time, they explored and washed out proximally in her thigh as well. Subsequently she initially had wound vac placed prior to secondary closure. She reports that the amputation site did ultimately heal fully and she was able to obtain a prosthetic. She had been doing very well with her prosthetic and getting back to work etc. Unfortunately about 1-2 months ago she developed a wound on her amputation stump due to the prosthetic rubbing in this area. She presented to the [facility] ER on 02/26/23 with concern of infection. She was admitted from 02/26-03/01 for IV antibiotics. Wound cultures were positive for staph aureus, blood cultures were negative. She was evaluated by orthopedics at that time as well. XR and CT scan performed during that admission were negative for signs of osteomyelitis. She was discharged with a course of Bactrim and referral here. At home, they have been doing daily dressing changes with iodoform and dry gauze dressing. Her daughter reports it has made significant improvement since her hospital stay. Subjective Subjective Patient reports doing well over the last couple weeks. No nausea, vomiting, fevers, chills, increased drainage/redness/swelling around the wound. Her daughter feels that the wound is healed. Objective Data Objective Data Vital Signs: Vital Signs Temp Pulse Resp BP O2 Del Method 97.4 F L 89 18 137/64 H Room Air 04/18/23 13:40 04/18/23 13:40 04/18/23 13:40 04/18/23 13:40 04/18/23 13:40 Oxygen Delivery Method Room Air Weight: 96 lb Body Mass Index (BMI) 18.7 Charges/Coding Visit Charges Office Visits / Consults: 70781 OV L3 Est 20min Physical Exam Const alert, oriented x3, no apparent distress and average body habitus General Appearance: cooperative HEENT normocephalic, head/scalp atraumatic, hearing grossly normal bilaterally, external ears normal and external nose normal Eyes EOMs intact bilaterally General Eye: normal appearance of both eyes Resp Effort and Inspection: able to speak in complete sentences; Negative for labored, stridor, retractions, uses accessory muscles or audible wheezes Extremity Extremity Narrative: R BKA Skin Wounds: wounds noted Wound Narrative: Small wound of right BKA has fully epithelialized this week. There is no surrounding erythema, fluctuance, induration, warmth, swelling. Psych mental status grossly normal Appearance: grossly normal Attitude: calm and engaged Activity / Motor Behavior: appropriate eye contact Judgement: judgement good Debridement Note Debridement Note No debridement was completed: No debridement was completed today Post-Debridement Measurements and Additional Note: Post-Debridement Measurements/Treatment - Nurse 1 - General Ulcer Assessment Start: 04/18/23 13:39 Freq: Status: Active Protocol: APRIL Activity Type Activity Date Activity User E-sign Co-sign Detail Recorded Client Recorded Date Recorded By Document 04/18/23 13:40 [facility] Desktop 04/18/23 13:46 [facility] 04/18/23 13:40 - Today's Visit Information Type of service 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 ) Arrival Mode Wheelchair Transfer Assistance None Accompanied by DAUGHTER Patient Identification Verified (Name & Yes ) Patient Requires Transmission-Based No Precautions Height and Weight Body Mass Index (BMI) 18.7 BMI Classification Normal Vital Signs Temperature (97.8 F-99.1 F) 97.4 F L Temperature Source Temporal Pulse Rate (60-100) 89 Pulse Location Monitor Respiratory Rate (12-18) 18 Respiratory rate source Observation Oxygen Delivery Method Room Air Blood Pressure (90/60-120/80) 137/64 H Blood Pressure Mean (mm Hg) 88 Source Monitor Position Sitting Blood Pressure Location Right Forearm History Since Last Visit- (Skip if this is Patient's initial visit) Have you changed medications since your No last visit? Any new allergies or adverse reactions No Had a fall/change in ADL's that may No increase risk of falls Signs or symptoms of abuse and/or No neglect since last visit Have you been in the hospital since your No last visit? Has dressing in place as prescribed Yes Has offloadiing in place as prescribed N/A Experienced any changes in pain level or No management Pain Scale: 0-10 Numeric Is Patient Pain Free? Yes - Nurse 1 - General Ulcer Measurement Start: 04/18/23 13:39 Freq: Status: Active Protocol: Activity Type Activity Date Activity User E-sign Co-sign Detail Recorded Client Recorded Date Recorded By Document 04/18/23 13:40 [facility] Desktop 04/18/23 13:46 [facility] 04/18/23 13:40 Wound Center Nurse 1 #1- R STUMP -Combined with other wound No -Current Size (cm) - Length 0.1 -Current Size (cm) - Width 0.1 -Current Size (cm) - Depth 0.1 -Total Square Cm 0.01 -Date of Last Picture (Recall this 04/18/23 field) -Photo Taken Yes -Epithelialization Large 67-100% -Tunneling No -Undermining/Tunneling No -Circular Undermining No -Exudate Amt None Present -Wound Margin Distinct, Outline Attached -Necrosis Amt Small (1-33%) -Necrotic Tissue Type Eschar -Texture (Edwina-wound Skin Appearance) Assessed, Scarring -Moisture (Edwina-wound Skin Appearance) Assessed,Dry/ Scaly -Color (Edwina-wound Skin Appearance) Assessed -Temperature (Edwina-wound Skin No Abnormality Appearance) (Pt Warm) -Tenderness on Palpation (Edwina-wound No Skin Appearance) -Ulcer Cleansing Rinsed/ Irrigated with Saline -Foul Odor after Cleansing No -Anesthetic Used 5% Lidocaine Gel WC - Nurse 2 - General Ulcer CM Notes Start: 04/18/23 13:39 Freq: Status: Active Protocol: Activity Type Activity Date Activity User E-sign Co-sign Detail Recorded Client Recorded Date Recorded By Document 04/18/23 16:20 PL [id number] 04/18/23 16:21 PL 04/18/23 16:20 Wound Center Nurse 2 -Procedure Performed No -Wound/Ulcer Outcome Healed- Epithelialized Pain Scale: 0-10 Numeric Is Patient Pain Free? Yes WC - Nurse 3 - General Ulcer D/C NN Start: 04/18/23 13:39 Freq: Status: Active Protocol: Activity Type Activity Date Activity User E-sign Co-sign Detail Recorded Client Recorded Date Recorded By Document 04/18/23 13:59 DL Desktop 04/18/23 14:00 DL 04/18/23 13:59 Wound Care Center Nurse 3 #1- R STUMP -Ulcer Cleansing Rinsed/ Irrigated with Saline -Foul Odor after Cleansing No -Primary Dressing Applied C Hydrogel ($), Mepilex Border -Mepilex Border 1 Treatment Response Procedure Tolerated Well Pain Scale: 0-10 Numeric Is Patient Pain Free? Yes WC - Visit Discharge Discharge Condition Stable Ambulatory Status Wheelchair Transportation Private Auto Notes: Healed/ discharged. 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 She is provided with collagen hydrogel. Continue to apply collagen hydrogel to the wound and pat/protect with either dry gauze or foam border dressing for another 1 to 2 weeks to protect and support the newly healed tissue. I would continue to refrain from utilizing her prosthetic for another 1 to 2 weeks until she has had it adjusted by [facility] to reduce trauma/pressure to the area of the wound. I have provided her with a note for return to work. She states she does not believe she needs any clearance for [facility]. I have offered another appointment in 2 weeks to assure this area remains healed, but patient politely declines and she will return as needed. She is discharged from the wound healing center today.
[2023-05-16 14:51] VITALS: BP 168/65; PULSE 94; RESP 18; TEMP 36.4; BMI 18.7
--- NOTE | 2023-05-16 16:28 | RAD_ITS ---
STUDY: X-RAY - RIGHT TIBIA AND FIBULA REASON FOR EXAM: Female, 57 years old. WOUND TECHNIQUE: 2 view(s) of the tibia and fibula were obtained. COMPARISON: Comparison is made with prior study dated February 26, 2023. FINDINGS: The patient is status post below knee amputation. There is evidence of air within the soft tissues of the stump. Infectious process should be ruled out. RAD/Tibia & Fibula 2 Views IMPRESSION: Soft tissue swelling at level of the stump with evidence of air within it. Infection should be ruled out. Electronically Signed: Fritz Alston MD at 13:36 EST ,
--- NOTE | 2023-05-16 19:05 | PN.PCM_ITS ---
History of Present Illness Date of Service: 05/16/23 Chief Complaint: R BKA stump wound History of Wound: Arianna Jerry is a 57 y/o female who presents to the wound healing center today for management of a right BKA stump wound. She is accompanied to the appointment today by her daughter who helps to supplement her history and also helps with her wound care. 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 At that time, they explored and washed out proximally in her thigh as well. Subsequently she initially had wound vac placed prior to secondary closure. She reports that the amputation site did ultimately heal fully and she was able to obtain a prosthetic. She had been doing very well with her prosthetic and getting back to work etc. Unfortunately about 1-2 months ago she developed a wound on her amputation stump due to the prosthetic rubbing in this area. She presented to the [facility] ER on 02/26/23 with concern of infection. She was admitted from 02/26-03/01 for IV antibiotics. Wound cultures were positive for staph aureus, blood cultures were negative. She was evaluated by orthopedics at that time as well. XR and CT scan performed during that admission were negative for signs of osteomyelitis. She was discharged with a course of Bactrim and referral here. At home, they have been doing daily dressing changes with iodoform and dry gauze dressing. Her daughter reports it has made significant improvement since her hospital stay. Objective Data Objective Data Vital Signs: Vital Signs Temp Pulse Resp BP O2 Del Method 97.5 F L 94 18 168/65 H Room Air 05/16/23 14:51 05/16/23 14:51 05/16/23 14:51 05/16/23 14:51 05/16/23 14:51 Oxygen Delivery Method Room Air Weight: 96 lb Body Mass Index (BMI) 18.7 Debridement Note Debridement Note Post-Debridement Measurements and Additional Note: Post-Debridement Measurements/Treatment - Nurse 1 - General Ulcer Assessment Start: 04/18/23 13:39 Freq: Status: Active Protocol: [email or web address] Activity Type Activity Date Activity User E-sign Co-sign Detail Recorded Client Recorded Date Recorded By Document 04/18/23 13:40 BM Desktop 04/18/23 13:46 BMF Document 05/16/23 14:51 [facility] Desktop 05/16/23 14:58 F 04/18/23 05/16/23 13:40 14:51 - Today's Visit Information Type of service Follow-up Visit Follow-up Visit (Physician/FIREBRICK LAYER HELPER (Physician/FIREBRICK LAYER HELPER ) ) Arrival Mode Wheelchair Wheelchair Transfer Assistance None Accompanied by DAUGHTER DAUGHTER Patient Identification Verified (Name & Yes Yes ) Patient Requires Transmission-Based No Precautions Finger Stick Blood Sugar(mg/dl) (if 182 indicated): Blood Sugar Stated by Patient Height and Weight Body Mass Index (BMI) 18.7 18.7 BMI Classification Normal Normal Vital Signs Temperature (97.8 F-99.1 F) 97.4 F L 97.5 F L Temperature Source Temporal Temporal Pulse Rate (60-100) 89 94 Pulse Location Monitor Monitor Respiratory Rate (12-18) 18 18 Respiratory rate source Observation Observation Oxygen Delivery Method Room Air Room Air Blood Pressure (90/60-120/80) 137/64 H 168/65 H Blood Pressure Mean (mm Hg) 88 99 Source Monitor Monitor Position Sitting Semi-Fowlers Blood Pressure Location Right Forearm Left Arm History Since Last Visit- (Skip if this is Patient's initial visit) Have you changed medications since your No No last visit? Any new allergies or adverse reactions No No Had a fall/change in ADL's that may No No increase risk of falls Signs or symptoms of abuse and/or No No neglect since last visit Have you been in the hospital since your No No last visit? Has dressing in place as prescribed Yes Yes Has compression in place as prescribed N/A Has offloadiing in place as prescribed N/A N/A Experienced any changes in pain level or No No management Left Footwear Regular Shoe Right Footwear No Footwear Pain Scale: 0-10 Numeric Is Patient Pain Free? Yes Yes - Nurse 1 - General Ulcer Measurement Start: 04/18/23 13:39 Freq: Status: Active Protocol: Activity Type Activity Date Activity User E-sign Co-sign Detail Recorded Client Recorded Date Recorded By Document 04/18/23 13:40 [facility] Desktop 04/18/23 13:46 [facility] Document 05/16/23 14:51 [facility] Desktop 05/16/23 14:58 [facility] 04/18/23 05/16/23 13:40 14:51 Wound Center Nurse 1 #1- R STUMP -Combined with other wound No -Current Size (cm) - Length 0.1 1 -Current Size (cm) - Width 0.1 0.8 -Current Size (cm) - Depth 0.1 1.7 -Total Square Cm 0.01 0.8 -Date of Last Picture (Recall this 04/18/23 05/16/23 field) -Photo Taken Yes Yes -Epithelialization Large 67-100% -Tunneling No -Undermining/Tunneling No -Circular Undermining No -Exudate Amt None Present Medium -Exudate Type Serosanguineous -Wound Margin Distinct, Distinct, Outline Outline Attached Attached -Granulation Amt Large (67-100%) -Granulation Quality Red -Necrosis Amt Small (1-33%) -Necrotic Tissue Type Eschar -Structure Exposed Bone -Texture (Edwina-wound Skin Appearance) Assessed, Assessed Scarring -Moisture (Edwina-wound Skin Appearance) Assessed,Dry/ Assessed Scaly -Color (Edwina-wound Skin Appearance) Assessed Assessed -Temperature (Edwina-wound Skin No Abnormality No Abnormality Appearance) (Pt Warm) (Pt Warm) -Tenderness on Palpation (Edwina-wound No Skin Appearance) -Ulcer Cleansing Rinsed/ Rinsed/ Irrigated with Irrigated with Saline Saline -Foul Odor after Cleansing No -Anesthetic Used 5% Lidocaine 5% Lidocaine Gel Gel WC - Nurse 2 - General Ulcer CM Notes Start: 04/18/23 13:39 Freq: Status: Active Protocol: Activity Type Activity Date Activity User E-sign Co-sign Detail Recorded Client Recorded Date Recorded By Document 04/18/23 16:20 PL [id number] 04/18/23 16:21 PL Document 05/16/23 16:19 PL [id number] 05/16/23 16:20 PL 04/18/23 05/16/23 16:20 16:19 Wound Center Nurse 2 #1- R STUMP -Time 15:23 -Correct Patient Yes -Correct Side, Site, Position Yes -Correct Procedure Yes -Procedure Performed No Yes -Type of Procedure Debridement -Clinical Debridement Subcutaneous -Tissue Removed Subcutaneous -Post Debridement (cm) - Length 1.1 -Post Debridement (cm) - Width 0.9 -Post Debridement (cm) - Depth 2.2 -Total Square (Post) (cm) 0.99 -Area of Debridement (cm) - Length 1.1 -Area of Debridement (cm) - Width 0.9 -Total Square (Area) (cm) 0.99 -Tunneling No -Undermining/Tunneling No -Circular Undermining No -Wound/Ulcer Outcome Healed- Not Healed Epithelialized -Ulcer Cleansing Rinsed/ Irrigated with Saline -Foul Odor after Cleansing No -Bioengineered Tissue No -Bleeding Controlled with Pressure -Treatment Response Procedure Tolerated Well -Debridement - Subq, 1st 20sq cm Yes Pain Scale: 0-10 Numeric Is Patient Pain Free? Yes Yes - Nurse 3 - General Ulcer D/C NN Start: 04/18/23 13:39 Freq: Status: Active Protocol: Activity Type Activity Date Activity User E-sign Co-sign Detail Recorded Client Recorded Date Recorded By Document 04/18/23 13:59 DL Desktop 04/18/23 14:00 DL Document 05/16/23 15:43 KW Desktop 05/16/23 15:44 KW 04/18/23 05/16/23 13:59 15:43 Wound Care Center Nurse 3 #1- R STUMP -Ulcer Cleansing Rinsed/ Irrigated with Saline -Foul Odor after Cleansing No -Primary Dressing Applied C Hydrogel ($), Hysept ($), Mepilex Border Nugauze, Plain 1/4in -Primary Dressing Covered/Secured with Dry Gauze & Roll Gauze, Secured with Tape -Mepilex Border 1 -Nugauze, Plain 1/4in 1 Treatment Response Procedure Tolerated Well Pain Scale: 0-10 Numeric Is Patient Pain Free? Yes Yes WC - Visit Discharge Discharge Condition Stable Stable Ambulatory Status Wheelchair Wheelchair Transportation Private Auto Private Auto Medication Reconcilliation completed & No provided to patient/care provider Clinical Summary of Care Provided Yes Notes: Healed/ discharged. Facility Type Home Health Orders Sent Yes
--- NOTE | 2023-05-21 13:01 | HP.PCM_ITS ---
History of Present Illness Date of Service: 05/16/23 Chief Complaint: R BKA stump wound History of Wound: Arianna Jerry is a 57 y/o female who presents to the wound healing center today for management of a right BKA stump wound. She is accompanied to the appointment today by her daughter who helps to supplement her history and also helps with her wound care. 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 At that time, they explored and washed out proximally in her thigh as well. Subsequently she initially had wound vac placed prior to secondary closure. She reports that the amputation site did ultimately heal fully and she was able to obtain a prosthetic. She had been doing very well with her prosthetic and getting back to work etc. Unfortunately about 1-2 months ago she developed a wound on her amputation stump due to the prosthetic rubbing in this area. She presented to the [facility] ER on 02/26/23 with concern of infection. She was admitted from 02/26-03/01 for IV antibiotics. Wound cultures were positive for staph aureus, blood cultures were negative. She was evaluated by orthopedics at that time as well. XR and CT scan performed during that admission were negative for signs of osteomyelitis. She was seen at the wound center from 03/15/24 - 04/19/23 prior to discharge. At time of discharge, wound had epithelialized. Patient reports it remained stable until earlier this week when she first wore her prosthetic again at which time that area busted open and was noted to have deeper tracking prompting her return. There is some erythema surrounding the wound, they deny significant drainage. She denies any N/V, F/C. 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 Smoker Type 2 diabetes mellitus with hyperglycemia, without long-term current use of insulin Home Medications albuterol sulfate 90 mcg/actuation aerosol inhaler 2 puff inhalation Q4H PRN Sob &/Or Wheezing 10/01/18 [History Last Taken Unknown] dapagliflozin propanediol 10 mg tablet (Farxiga) 10 mg PO DAILY blood sugars 09/20/22 [History Last Taken 02/25/23] [place] Verio test strips (blood sugar diagnostic) #100 ea 11/06/22 [Rx Last Taken Unknown] atorvastatin 40 mg tablet 40 mg PO QHS cholesterol 02/26/23 [History Last Taken 02/25/23] cholecalciferol (vitamin D3) 25 mcg (1,000 unit) tablet 25 mcg PO DAILY supplement 02/26/23 [History Last Taken 02/25/23] ferrous sulfate 325 mg (65 mg iron) tablet (FeroSul) 325 mg PO DAILY supplement 02/26/23 [History Last Taken 02/25/23] lisinopril 5 mg tablet 5 mg PO DAILY blood pressure 02/26/23 [History Last Taken 02/25/23] metformin 1,000 mg tablet 1,000 mg PO BID blood sugars 02/26/23 [History Last Taken 02/25/23] glipizide 5 mg tablet 5 mg PO BID #60 tabs 04/17/23 [Rx Last Taken Unknown] sulfamethoxazole 800 mg-trimethoprim 160 mg tablet (Bactrim DS) 1 tab PO Q12H 14 days #28 tabs 05/16/23 [Rx Last Taken Unknown] Allergy/AdvReac Type Severity Reaction Status Date / Time No Known Allergies Allergy Verified 04/17/23 11:42 Family History Grandmother Breast cancer Father Heart disease Hypertension Sister Thyroid disorder Aunt Thyroid disorder Other Arthritis CVA (cerebral vascular accident) Kidney disease Myocardial infarction Surgical History H/O thumb surgery history EGD with dilatation History of appendectomy S/P appendectomy Status post below knee amputation of right lower extremity Social History household members: family Smoking Status: Current every day smoker tobacco type: cigarettes alcohol intake: never substance use type: does not use what type of physical activity do you participate in: walking Vital Signs Vital Signs Vital Signs: Weight Weight: 96 lb Body Mass Index (BMI) 18.7 Physical Exam Const alert, oriented x3, no apparent distress and average body habitus General Appearance: cooperative HEENT normocephalic, head/scalp atraumatic, hearing grossly normal bilaterally, external ears normal and external nose normal Eyes EOMs intact bilaterally General Eye: normal appearance of both eyes Resp Effort and Inspection: able to speak in complete sentences; Negative for labored, stridor, retractions, uses accessory muscles or audible wheezes Extremity Extremity Narrative: R BKA Skin Wounds: wounds noted Wound Narrative: Wound to R BKA stump which probes to bone. There is erythema noted around the wound edge with some warmth appreciated as well. No significant drainage. Psych mental status grossly normal Appearance: grossly normal Attitude: calm and engaged Activity / Motor Behavior: appropriate eye contact Judgement: judgement good Debridement Note Debridement Note Wound debrided: R BKA Laterality: Right Type of Debridement: Excisional debridement Anesthesia Used: 5% Lidocaine Gel Depth: Down to and including healthy tissue and to muscle Percentage of wound debrided: 100 Instrument Used: 3mm curette Tissue Removed: slough, devitalized tissue Severity: Necrosis of Muscle Amount of bleeding with debridement: Mild Bleeding Controlled with: Pressure Patient tolerated procedure: Patient tolerated procedure well Lab / Micro Data Micro: Microbiology 05/16/23 15:30 Wound - Open/Non-Healing Wound Gram Stain - Final 05/16/23 15:30 Wound - Open/Non-Healing Wound Wound Culture - Final Meth. resistant Staph. aureus 05/16/23 15:30 Wound - Open/Non-Healing Wound Anaerobic Culture - Final No anaerobic bacteria isolated. 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 I have initiated empiric antibiotics with Bactrim DS BID x14 days. Cultures were obtained, will adjust antibiotic therapy per sensitivity report. XR was ordered to examine for changes consistent with osteomyelitis. Fortunately, no N/V, F/C and no erythema streaking proximally. She is advised to contact her orthopedic surgeon's office who performed the amputation as she may need operative debridement with bone biopsy to further evaluate for acute vs chronic osteomyelitis which may contribute to wound recurrence. Her surgery was performed by Dr. Riggs at [facility], will also fax notes over. She will return to the wound center in 1 week, sooner if needed. We discussed the red flag signs/symptoms which should lead her to present to the ER, she and her daughter acknowledged understanding.
== END 2023-05-16 23:59 | disposition home or self-care (01) ==
LOC: WC 14:45
PROVIDERS: PCP Family Medicine; Referring Provider Student in an Organized Health Care Education/Training Program; Visit Provider Physician Assistant
DX: T87.89 Other complications of amputation stump (principal); E11.622 Type 2 diabetes mellitus with other skin ulcer; L97.812 Non-pressure chronic ulcer of other part of right lower leg with fat layer exposed; Z89.511 Acquired absence of right leg below knee; K21.9 Gastro-esophageal reflux disease without esophagitis; Z79.899 Other long term (current) drug therapy; Z79.84 Long term (current) use of oral hypoglycemic drugs; F17.210 Nicotine dependence, cigarettes, uncomplicated; Y84.9 Medical procedure, unspecified as the cause of abnormal reaction of the patient, or of later complication, without mention of misadventure at the time of the procedure
CPT/HCPCS: 11042; 73590; 87070; 87075; 87077; 87186; 87205; 99213; G0463

== ENCOUNTER → 2023-06-03 | Outpatient (CLI) | payer MEDICAID, SELFPAY ==
[2023-06-03 14:37] LABS: Anion Gap 6 (5-15); BUN 6 mg/dL (7-18); BUN/Creat Ratio 7.3 RATIO (10-20); Calcium,Total 8.7 mg/dL (8.5-10.1); Chloride 103 mmol/L (98-107); Creatinine, Serum 0.82 mg/dL (0.55-1.02); EST Glomerular Filtration Rate 76 mL/min (>60); Est Glom Filt Rate - Afr Amer 92 mL/min (>60); Glucose 189 mg/dL (74-106); Potassium 3.4 mmol/L (3.5-5.1); Sodium Level 136 mmol/L (136-145)
== END | disposition home or self-care (01) ==
LOC: LAB 13:15
PROVIDERS: PCP Family Medicine; Referring Provider Physician Assistant; Visit Provider Physician Assistant
DX: E11.29 Type 2 diabetes mellitus with other diabetic kidney complication (principal); L97.912 Non-pressure chronic ulcer of unspecified part of right lower leg with fat layer exposed; R80.9 Proteinuria, unspecified; E87.6 Hypokalemia
CPT/HCPCS: 36415; 80048

== ENCOUNTER 2023-06-13 15:30 | Outpatient (RCR) | payer MEDICAID, SELFPAY ==
[2023-05-17 00:26] VITALS: BP 168/65; PULSE 94; RESP 18; TEMP 36.4; BMI 18.7
[2023-05-23 13:11] VITALS: BP 132/54; PULSE 45; RESP 18; TEMP 36.1; BMI 18.7
--- NOTE | 2023-05-23 15:06 | PCM.WC.PN ---
History of Present Illness Date of Service: 05/23/23 Chief Complaint: R BKA stump wound History of Wound: Arianna Jerry is a 57 y/o female who presents to the wound healing center today for management of a right BKA stump wound. She is accompanied to the appointment today by her daughter who helps to supplement her history and also helps with her wound care. 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 At that time, they explored and washed out proximally in her thigh as well. Subsequently she initially had wound vac placed prior to secondary closure. She reports that the amputation site did ultimately heal fully and she was able to obtain a prosthetic. She had been doing very well with her prosthetic and getting back to work etc. Unfortunately about 1-2 months ago she developed a wound on her amputation stump due to the prosthetic rubbing in this area. She presented to the [facility] ER on 02/26/23 with concern of infection. She was admitted from 02/26-03/01 for IV antibiotics. Wound cultures were positive for staph aureus, blood cultures were negative. She was evaluated by orthopedics at that time as well. XR and CT scan performed during that admission were negative for signs of osteomyelitis. She was seen at the wound center from 03/15/24 - 04/19/23 prior to discharge. At time of discharge, wound had epithelialized. Patient reports it remained stable until earlier this week when she first wore her prosthetic again at which time that area busted open and was noted to have deeper tracking prompting her return. There is some erythema surrounding the wound, they deny significant drainage. She denies any N/V, F/C. Subjective Subjective She has been seen by her orthopedic surgeon Dr. Riggs at [facility] who performed her BKA. She reports that he did not feel any surgery was needed right now, but she is to follow up with him in 1 month to reassess. They have been packing the wound at home as directed. No new/worsening drainage, redness, swelling. No N/V, F/C. She has been taking the Bactrim as prescribed without any adverse effects. Objective Data Objective Data Vital Signs: Vital Signs Temp Pulse Resp BP 97 F L 45 L 18 132/54 H 05/23/23 13:11 05/23/23 13:11 05/23/23 13:11 05/23/23 13:11 Weight: 96 lb Body Mass Index (BMI) 18.7 Charges/Coding Procedures Integumentary 111xxx-113xx: 71177 Ani subq tissue 20 sq cm/< Physical Exam Const alert, oriented x3, no apparent distress and average body habitus General Appearance: cooperative HEENT normocephalic, head/scalp atraumatic, hearing grossly normal bilaterally, external ears normal and external nose normal Eyes EOMs intact bilaterally General Eye: normal appearance of both eyes Resp Effort and Inspection: able to speak in complete sentences; Negative for labored, stridor, retractions, uses accessory muscles or audible wheezes Extremity Extremity Narrative: R BKA Skin Wounds: wounds noted Wound Narrative: Wound to R BKA stump which probes to bone. The erythema and warmth in the periwound has resolved. No significant drainage. Psych mental status grossly normal Appearance: grossly normal Attitude: calm and engaged Activity / Motor Behavior: appropriate eye contact Judgement: judgement good Debridement Note Debridement Note Wound debrided: R BKA Laterality: Right Type of Debridement: Excisional debridement Anesthesia Used: 5% Lidocaine Gel Depth: Down to and including healthy tissue and to muscle Percentage of wound debrided: 100 Instrument Used: 3mm curette Tissue Removed: slough, devitalized tissue Severity: Necrosis of Muscle Amount of bleeding with debridement: Mild Bleeding Controlled with: Pressure Patient tolerated procedure: Patient tolerated procedure well Post-Debridement Measurements and Additional Note: Post-Debridement Measurements/Treatment - Nurse 1 - General Ulcer Assessment Start: 05/23/23 13:10 Freq: Status: Active Protocol: APRIL Activity Type Activity Date Activity User E-sign Co-sign Detail Recorded Client Recorded Date Recorded By Document 05/23/23 13:11 Desktop 05/23/23 13:14 05/23/23 13:11 - Today's Visit Information Type of service Follow-up Visit (Physician/[facility] ) Arrival Mode Wheelchair Transfer Assistance None Patient Identification Verified (Name & Yes ) Patient Requires Transmission-Based No Precautions Height and Weight Body Mass Index (BMI) 18.7 BMI Classification Normal Vital Signs Temperature (97.8 F-99.1 F) 97 F L Temperature Source Temporal Pulse Rate (60-100) 45 L Pulse Location Monitor Respiratory Rate (12-18) 18 Respiratory rate source Observation Blood Pressure (90/60-120/80) 132/54 H Blood Pressure Mean (mm Hg) 80 Source Monitor Position Semi-Fowlers Blood Pressure Location Left Arm History Since Last Visit- (Skip if this is Patient's initial visit) Have you changed medications since your No last visit? Any new allergies or adverse reactions No Had a fall/change in ADL's that may No increase risk of falls Signs or symptoms of abuse and/or No neglect since last visit Have you been in the hospital since your No last visit? Has dressing in place as prescribed Yes Has compression in place as prescribed No Has offloadiing in place as prescribed No Experienced any changes in pain level or No management Pain Scale: 0-10 Numeric Is Patient Pain Free? Yes WC - Nurse 1 - General Ulcer Measurement Start: 05/23/23 13:10 Freq: Status: Active Protocol: Activity Type Activity Date Activity User E-sign Co-sign Detail Recorded Client Recorded Date Recorded By Document 05/23/23 13:11 RB Desktop 05/23/23 13:14 RB 05/23/23 13:11 Wound Center Nurse 1 #1- R STUMP -Combined with other wound No -Current Size (cm) - Length 0.8 -Current Size (cm) - Width 0.4 -Current Size (cm) - Depth 0.5 -Total Square Cm 0.32 -Tunneling Yes -Tunneling Position (O'clock) 12 -Tunneling Distance (cm) 1 -Undermining/Tunneling No -Circular Undermining No -Exudate Amt Medium -Exudate Type Serosanguineous -Wound Margin Distinct, Outline Attached -Granulation Amt Medium (34-66%) -Granulation Quality [place] -Slough/Fibrin Yes -Necrosis Amt Medium (34-66%) -Necrotic Tissue Type Adherent Slough -Structure Exposed N/A -Texture (Edwina-wound Skin Appearance) Assessed -Moisture (Edwina-wound Skin Appearance) Maceration -Color (Edwina-wound Skin Appearance) Assessed -Temperature (Edwina-wound Skin No Abnormality Appearance) (Pt Warm) -Tenderness on Palpation (Edwina-wound No Skin Appearance) -Ulcer Cleansing Wound Cleanser -Foul Odor after Cleansing No -Anesthetic Used 5% Lidocaine Gel SUE - Nurse 2 - General Ulcer CM Notes Start: 05/23/23 13:10 Freq: Status: Active Protocol: Activity Type Activity Date Activity User E-sign Co-sign Detail Recorded Client Recorded Date Recorded By Document 05/23/23 13:23 Desktop 05/23/23 13:27 05/23/23 13:23 Wound Center Nurse 2 -Time 13:25 -Correct Patient Yes -Correct Side, Site, Position Yes -Correct Procedure Yes -Procedure Performed Yes -Type of Procedure Debridement -Clinical Debridement Subcutaneous -Tissue Removed Subcutaneous -Post Debridement (cm) - Length 0.7 -Post Debridement (cm) - Width 0.4 -Post Debridement (cm) - Depth 2.2 -Total Square (Post) (cm) 0.28 -Area of Debridement (cm) - Length 0.7 -Area of Debridement (cm) - Width 0.4 -Total Square (Area) (cm) 0.28 -Tunneling No -Undermining/Tunneling No -Circular Undermining No -Wound/Ulcer Outcome Not Healed -Ulcer Cleansing Rinsed/ Irrigated with Saline -Foul Odor after Cleansing No -Bleeding Controlled with Pressure -Treatment Response Procedure Tolerated Well -Debridement - Subq, 1st 20sq cm Yes Pain Scale: 0-10 Numeric Is Patient Pain Free? Yes - Nurse 3 - General Ulcer D/C NN Start: 05/23/23 13:10 Freq: Status: Active Protocol: Activity Type Activity Date Activity User E-sign Co-sign Detail Recorded Client Recorded Date Recorded By Document 05/23/23 13:43 KW Desktop 05/23/23 13:47 05/23/23 13:43 Wound Care Center Nurse 3 #1- R STUMP -Primary Dressing Applied Nugauze, Plain 1/4in -Primary Dressing Covered/Secured with Dry Gauze, Secured with Tape -Nugauze, Plain 1/4in 1 Pain Scale: 0-10 Numeric Is Patient Pain Free? 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 The outside diameter has decreased in size. There is resolved erythema and warmth. She has followed up with her orthopedic surgeon. No plans for surgical intervention at this time. She does have follow-up in another 4 weeks. Continue Bactrim BID x 14 days. No evidence of osteomyelitis on XR. Will continue to pack with dakins-soaked Nugauze and cover with foam-border or bulky dry dressing. Continue to avoid use of prosthetic so as not to apply further pressure to the area. She will return to the wound center in 1 week, sooner if needed. We discussed the red flag signs/symptoms which should lead her to present to the ER, she and her daughter acknowledged understanding.
[2023-05-30 14:55] VITALS: BP 115/65; PULSE 95; RESP 16; TEMP 36.1; BMI 18.7
--- NOTE | 2023-05-30 16:48 | PN.PCM_ITS ---
History of Present Illness Date of Service: 05/30/23 Chief Complaint: R BKA stump wound History of Wound: Arianna Jerry is a 57 y/o female who presents to the wound healing center today for management of a right BKA stump wound. She is accompanied to the appointment today by her daughter who helps to supplement her history and also helps with her wound care. 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 At that time, they explored and washed out proximally in her thigh as well. Subsequently she initially had wound vac placed prior to secondary closure. She reports that the amputation site did ultimately heal fully and she was able to obtain a prosthetic. She had been doing very well with her prosthetic and getting back to work etc. Unfortunately about 1-2 months ago she developed a wound on her amputation stump due to the prosthetic rubbing in this area. She presented to the [facility] ER on 02/26/23 with concern of infection. She was admitted from 02/26-03/01 for IV antibiotics. Wound cultures were positive for staph aureus, blood cultures were negative. She was evaluated by orthopedics at that time as well. XR and CT scan performed during that admission were negative for signs of osteomyelitis. She was seen at the wound center from 03/15/24 - 04/19/23 prior to discharge. At time of discharge, wound had epithelialized. Patient reports it remained stable until earlier this week when she first wore her prosthetic again at which time that area busted open and was noted to have deeper tracking prompting her return. There is some erythema surrounding the wound, they deny significant drainage. She denies any N/V, F/C. Subjective Subjective Patient reports no N/V, F/C. Her daughter continues to pack the wound at home, no issues with dressing changes. She needs a note for work outlining what we are treating her for, how it limits her working ability, and anticipated return to work. Objective Data Objective Data Vital Signs: Vital Signs Temp Pulse Resp BP 97 F L 95 16 115/65 05/30/23 14:55 05/30/23 14:55 05/30/23 14:55 05/30/23 14:55 Weight: 96 lb Body Mass Index (BMI) 18.7 Charges/Coding Procedures Integumentary 111xxx-113xx: 79001 Ani subq tissue 20 sq cm/< Physical Exam Const alert, oriented x3, no apparent distress and average body habitus General Appearance: cooperative HEENT normocephalic, head/scalp atraumatic, hearing grossly normal bilaterally, external ears normal and external nose normal Eyes EOMs intact bilaterally General Eye: normal appearance of both eyes Resp Effort and Inspection: able to speak in complete sentences; Negative for labored, stridor, retractions, uses accessory muscles or audible wheezes Extremity Extremity Narrative: R BKA Skin Wounds: wounds noted Wound Narrative: Wound to R BKA stump which probes to bone. The erythema and warmth in the periwound has resolved. No significant drainage. The outer diameter of the wound is decreasing, the depth is not improving. Still noting milky-yellow drainage. Psych mental status grossly normal Appearance: grossly normal Attitude: calm and engaged Activity / Motor Behavior: appropriate eye contact Judgement: judgement good Debridement Note Debridement Note Wound debrided: R BKA Laterality: Right Type of Debridement: Excisional debridement Anesthesia Used: 5% Lidocaine Gel Depth: Down to and including healthy tissue and to muscle Percentage of wound debrided: 100 Instrument Used: 3mm curette Tissue Removed: slough, devitalized tissue Severity: Necrosis of Muscle Amount of bleeding with debridement: Mild Bleeding Controlled with: Pressure Patient tolerated procedure: Patient tolerated procedure well Post-Debridement Measurements and Additional Note: Post-Debridement Measurements/Treatment - Nurse 1 - General Ulcer Assessment Start: 05/23/23 13:10 Freq: Status: Active Protocol: SUE.LOWJOSE ANTONIO Activity Type Activity Date Activity User E-sign Co-sign Detail Recorded Client Recorded Date Recorded By Document 05/23/23 13:11 Desktop 05/23/23 13:14 Document 05/30/23 14:55 DE [id number] 05/30/23 14:58 DE 05/23/23 05/30/23 13:11 14:55 - Today's Visit Information Type of service Follow-up Visit Initial Visit (Physician/PHARMACY OPERATIONS COORDINATOR ) Arrival Mode Wheelchair Ambulatory Transfer Assistance None Accompanied by daughter Patient Identification Verified (Name & Yes Yes ) Patient Requires Transmission-Based No Precautions Safety Precautions Fall Prevention Height and Weight Body Mass Index (BMI) 18.7 18.7 BMI Classification Normal Normal Vital Signs Temperature (97.8 F-99.1 F) 97 F L 97 F L Temperature Source Temporal Temporal Pulse Rate (60-100) 45 L 95 Pulse Location Monitor Monitor Respiratory Rate (12-18) 18 16 Respiratory rate source Observation Observation Blood Pressure (90/60-120/80) 132/54 H 115/65 Blood Pressure Mean (mm Hg) 80 81 Source Monitor Monitor Position Semi-Fowlers Sitting Blood Pressure Location Left Arm Left Arm History Since Last Visit- (Skip if this is Patient's initial visit) Have you changed medications since your No last visit? Any new allergies or adverse reactions No Had a fall/change in ADL's that may No increase risk of falls Signs or symptoms of abuse and/or No neglect since last visit Have you been in the hospital since your No last visit? Has dressing in place as prescribed Yes Has compression in place as prescribed No N/A Has offloadiing in place as prescribed No N/A Experienced any changes in pain level or No management Left Footwear Regular Shoe Right Footwear Regular Shoe Pain Scale: 0-10 Numeric Is Patient Pain Free? Yes Yes WC - Nurse 1 - General Ulcer Measurement Start: 05/23/23 13:10 Freq: Status: Active Protocol: Activity Type Activity Date Activity User E-sign Co-sign Detail Recorded Client Recorded Date Recorded By Document 05/23/23 13:11 RB Desktop 05/23/23 13:14 RB Document 05/30/23 14:55 DE [id number] 05/30/23 14:58 DE 05/23/23 05/30/23 13:11 14:55 Wound Center Nurse 1 #1- R STUMP -Combined with other wound No -Current Size (cm) - Length 0.8 0.5 -Current Size (cm) - Width 0.4 0.5 -Current Size (cm) - Depth 0.5 1.8 -Total Square Cm 0.32 0.25 -Tunneling Yes Yes -Tunneling Position (O'clock) 12 12 -Tunneling Distance (cm) 1 1.8 -Undermining/Tunneling No -Circular Undermining No -Exudate Amt Medium Small -Exudate Type Serosanguineous Serosanguineous -Wound Margin Distinct, Flat & Intact Outline Attached -Granulation Amt Medium (34-66%) Large (67-100%) -Granulation Quality [place] -Slough/Fibrin Yes -Necrosis Amt Medium (34-66%) Small (1-33%) -Necrotic Tissue Type Adherent Slough Adherent Slough -Structure Exposed N/A -Texture (Edwina-wound Skin Appearance) Assessed Assessed -Moisture (Edwina-wound Skin Appearance) Maceration Assessed -Color (Edwina-wound Skin Appearance) Assessed Assessed -Temperature (Edwina-wound Skin No Abnormality No Abnormality Appearance) (Pt Warm) (Pt Warm) -Tenderness on Palpation (Edwina-wound No No Skin Appearance) -Ulcer Cleansing Wound Cleanser Rinsed/ Irrigated with Saline -Foul Odor after Cleansing No No -Anesthetic Used 5% Lidocaine 5% Lidocaine Gel Gel - Nurse 2 - General Ulcer CM Notes Start: 05/23/23 13:10 Freq: Status: Active Protocol: Activity Type Activity Date Activity User E-sign Co-sign Detail Recorded Client Recorded Date Recorded By Document 05/23/23 13:23 GM Desktop 05/23/23 13:27 GM Document 05/30/23 14:06 GM Desktop 05/30/23 14:15 GM 05/23/23 05/30/23 13:23 14:06 Wound Center Nurse 2 #1- R STUMP -Time 13:25 14:06 -Correct Patient Yes Yes -Correct Side, Site, Position Yes Yes -Correct Procedure Yes Yes -Procedure Performed Yes Yes -Type of Procedure Debridement Debridement -Clinical Debridement Subcutaneous Subcutaneous -Tissue Removed Subcutaneous Subcutaneous -Post Debridement (cm) - Length 0.7 0.4 -Post Debridement (cm) - Width 0.4 0.4 -Post Debridement (cm) - Depth 2.2 2.6 -Total Square (Post) (cm) 0.28 0.16 -Area of Debridement (cm) - Length 0.7 0.4 -Area of Debridement (cm) - Width 0.4 0.4 -Total Square (Area) (cm) 0.28 0.16 -Tunneling No No -Undermining/Tunneling No No -Circular Undermining No No -Wound/Ulcer Outcome Not Healed Not Healed -Ulcer Cleansing Rinsed/ Rinsed/ Irrigated with Irrigated with Saline Saline -Foul Odor after Cleansing No No -Bioengineered Tissue No -Bleeding Controlled with Pressure Pressure -Treatment Response Procedure Procedure Tolerated Well Tolerated Well -Debridement - Subq, 1st 20sq cm Yes Yes Pain Scale: 0-10 Numeric Is Patient Pain Free? Yes Yes - Nurse 3 - General Ulcer D/C NN Start: 05/23/23 13:10 Freq: Status: Active Protocol: Activity Type Activity Date Activity User E-sign Co-sign Detail Recorded Client Recorded Date Recorded By Document 05/23/23 13:43 KW Desktop 05/23/23 13:47 KW Document 05/30/23 14:37 RB Desktop 05/30/23 14:38 RB 05/23/23 05/30/23 13:43 14:37 Wound Care Center Nurse 3 #1- R STUMP -Ulcer Cleansing Rinsed/ Irrigated with Saline -Primary Dressing Applied Nugauze, Plain Nugauze, 1/4in Iodoform 1/4in -Other Dressing nugauze moistened with dakins -Primary Dressing Covered/Secured with Dry Gauze, Dry Gauze,Dry Secured with Gauze & Roll Tape Gauze,Secured with Tape -Nugauze, Iodoform 1/4in 1 -Nugauze, Plain 1/4in 1 Treatment Response Procedure Tolerated Well Pain Scale: 0-10 Numeric Is Patient Pain Free? 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 The outside diameter has decreased in size. Erythema and warmth remains resolved. Still noting milky yellow drainage. No foul odor. She has followed up with her orthopedic surgeon. No plans for surgical intervention at this time. She does have follow-up in another 4 weeks. Do think if persistent depth that it may be beneficial to have operative debridement with bone biopsy to r/o chronic osteo. Will extend Bactrim therapy. Will obtain BMP to check K and GFR/Creatinine. No evidence of osteomyelitis on XR. Will continue to pack with dakins-soaked Nugauze and cover with foam-border or bulky dry dressing. Continue to avoid use of prosthetic so as not to apply further pressure to the area. She will return to the wound center in 1 week, sooner if needed. We discussed the red flag signs/symptoms which should lead her to present to the ER, she and her daughter acknowledged understanding.
[2023-06-06 13:21] VITALS: BP 121/51; PULSE 99; RESP 16; TEMP 36.6; BMI 18.7
--- NOTE | 2023-06-06 14:04 | PCM.WC.PN ---
History of Present Illness Date of Service: 06/06/23 Chief Complaint: R BKA stump wound History of Wound: Arianna Jerry is a 57 y/o female who presents to the wound healing center today for management of a right BKA stump wound. She is accompanied to the appointment today by her daughter who helps to supplement her history and also helps with her wound care. 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 At that time, they explored and washed out proximally in her thigh as well. Subsequently she initially had wound vac placed prior to secondary closure. She reports that the amputation site did ultimately heal fully and she was able to obtain a prosthetic. She had been doing very well with her prosthetic and getting back to work etc. Unfortunately about 1-2 months ago she developed a wound on her amputation stump due to the prosthetic rubbing in this area. She presented to the [facility] ER on 02/26/23 with concern of infection. She was admitted from 02/26-03/01 for IV antibiotics. Wound cultures were positive for staph aureus, blood cultures were negative. She was evaluated by orthopedics at that time as well. XR and CT scan performed during that admission were negative for signs of osteomyelitis. She was seen at the wound center from 03/15/24 - 04/19/23 prior to discharge. At time of discharge, wound had epithelialized. Patient reports it remained stable until earlier this week when she first wore her prosthetic again at which time that area busted open and was noted to have deeper tracking prompting her return. There is some erythema surrounding the wound, they deny significant drainage. She denies any N/V, F/C. Subjective Subjective Daughter reports that she continues to manage the dressings well at home, she is packing as directed. She feels the outside is closing up but there is still noticing some milky drainage from the wound. There is no surrounding redness, focal swelling, or foul odor. They are using Dakin's. She is not having any nausea, vomiting, fevers, chills. She is still taking the Bactrim as prescribed. Objective Data Objective Data Vital Signs: Vital Signs Temp Pulse Resp BP O2 Del Method 97.8 F 99 16 121/51 H Room Air 06/06/23 13:21 06/06/23 13:21 06/06/23 13:06/06/23 13:21 06/06/23 13:21 Oxygen Delivery Method Room Air Weight: 96 lb Body Mass Index (BMI) 18.7 Charges/Coding Procedures Integumentary 111xxx-113xx: [id number] Ani subq tissue 20 sq cm/< Physical Exam Const alert, oriented x3, no apparent distress and average body habitus General Appearance: cooperative HEENT normocephalic, head/scalp atraumatic, hearing grossly normal bilaterally, external ears normal and external nose normal Eyes EOMs intact bilaterally General Eye: normal appearance of both eyes Resp Effort and Inspection: able to speak in complete sentences; Negative for labored, stridor, retractions, uses accessory muscles or audible wheezes Extremity Extremity Narrative: R BKA Skin Wounds: wounds noted Wound Narrative: Wound to R BKA stump which probes to bone. The erythema and warmth in the periwound remains resolved. No significant drainage. The outer diameter of the wound is decreasing, the depth is not improving. Still noting milky-yellow drainage. Psych mental status grossly normal Appearance: grossly normal Attitude: calm and engaged Activity / Motor Behavior: appropriate eye contact Judgement: judgement good Debridement Note Debridement Note Wound debrided: R BKA Laterality: Right Type of Debridement: Excisional debridement Anesthesia Used: 5% Lidocaine Gel Depth: Down to and including healthy tissue and to muscle Percentage of wound debrided: 100 Instrument Used: 3mm curette Tissue Removed: slough, devitalized tissue Severity: Necrosis of Muscle Amount of bleeding with debridement: Mild Bleeding Controlled with: Pressure Patient tolerated procedure: Patient tolerated procedure well Post-Debridement Measurements and Additional Note: Post-Debridement Measurements/Treatment - Nurse 1 - General Ulcer Assessment Start: 05/23/23 13:10 Freq: Status: Active Protocol: SUE.CELESTE Activity Type Activity Date Activity User E-sign Co-sign Detail Recorded Client Recorded Date Recorded By Document 05/23/23 13:11 RB Desktop 05/23/23 13:14 RB Document 05/30/23 14:55 MT [id number] 05/30/23 14:58 MT Document 06/06/23 13:21 BM Desktop 06/06/23 13:29 BMF 05/23/23 05/30/23 06/06/23 13:11 14:55 13:21 - Today's Visit Information Type of service Follow-up Visit Initial Visit Follow-up Visit (Physician/CODING MACHINE OPERATOR (Physician/CODING MACHINE OPERATOR ) ) Arrival Mode Wheelchair Ambulatory Wheelchair Transfer Assistance None Other Transfer Assist (Other) 1 STAND BY Accompanied by daughter DAUGHTER Patient Identification Verified (Name & Yes Yes Yes ) Patient Requires Transmission-Based No No Precautions Safety Precautions Fall Prevention Height and Weight Body Mass Index (BMI) 18.7 18.7 18.7 BMI Classification Normal Normal Normal Vital Signs Temperature (97.8 F-99.1 F) 97 F L 97 F L 97.8 F Temperature Source Temporal Temporal Temporal Pulse Rate (60-100) 45 L 95 99 Pulse Location Monitor Monitor Monitor Respiratory Rate (12-18) 18 16 16 Respiratory rate source Observation Observation Observation Oxygen Delivery Method Room Air Blood Pressure (90/60-120/80) 132/54 H 115/65 121/51 H Blood Pressure Mean (mm Hg) 80 81 74 Source Monitor Monitor Monitor Position Semi-Fowlers Sitting Sitting Blood Pressure Location Left Arm Left Arm Left Arm History Since Last Visit- (Skip if this is Patient's initial visit) Have you changed medications since your No No last visit? Any new allergies or adverse reactions No No Had a fall/change in ADL's that may No No increase risk of falls Signs or symptoms of abuse and/or No No neglect since last visit Have you been in the hospital since your No No last visit? Has dressing in place as prescribed Yes Yes Has compression in place as prescribed No N/A Yes Has offloadiing in place as prescribed No N/A N/A Experienced any changes in pain level or No No management Left Footwear Regular Shoe Regular Shoe Right Footwear Regular Shoe Pain Scale: 0-10 Numeric Is Patient Pain Free? Yes Yes Yes WC - Nurse 1 - General Ulcer Measurement Start: 05/23/23 13:10 Freq: Status: Active Protocol: Activity Type Activity Date Activity User E-sign Co-sign Detail Recorded Client Recorded Date Recorded By Document 05/23/23 13:11 RB Desktop 05/23/23 13:14 RB Document 05/30/23 14:55 MT [id number] 05/30/23 14:58 MT Document 06/06/23 13:21 BMF Desktop 06/06/23 13:29 BMF 05/23/23 05/30/23 06/06/23 13:11 14:55 13:21 Wound Center Nurse 1 #1- R STUMP -Combined with other wound No No -Current Size (cm) - Length 0.8 0.5 0.2 -Current Size (cm) - Width 0.4 0.5 0.3 -Current Size (cm) - Depth 0.5 1.8 1.4 -Total Square Cm 0.32 0.25 0.06 -Date of Last Picture (Recall this 06/06/23 field) -Photo Taken Yes -Tunneling Yes Yes -Tunneling Position (O'clock) 12 12 -Tunneling Distance (cm) 1 1.8 -Undermining/Tunneling No No -Circular Undermining No No -Exudate Amt Medium Small Medium -Exudate Type Serosanguineous Serosanguineous Purulent -Wound Margin Distinct, Flat & Intact Distinct, Outline Outline Attached Attached -Granulation Amt Medium (34-66%) Large (67-100%) Large (67-100%) -Granulation Quality [place] Pale,[place] Red -Slough/Fibrin Yes -Necrosis Amt Medium (34-66%) Small (1-33%) -Necrotic Tissue Type Adherent Slough Adherent Slough -Structure Exposed N/A -Texture (Edwina-wound Skin Appearance) Assessed Assessed Assessed, Scarring -Moisture (Edwina-wound Skin Appearance) Maceration Assessed Assessed -Color (Edwina-wound Skin Appearance) Assessed Assessed Assessed -Temperature (Edwina-wound Skin No Abnormality No Abnormality No Abnormality Appearance) (Pt Warm) (Pt Warm) (Pt Warm) -Tenderness on Palpation (Edwina-wound No No No Skin Appearance) -Ulcer Cleansing Wound Cleanser Rinsed/ Rinsed/ Irrigated with Irrigated with Saline Saline -Foul Odor after Cleansing No No No -Anesthetic Used 5% Lidocaine 5% Lidocaine 5% Lidocaine Gel Gel Gel WC - Nurse 2 - General Ulcer CM Notes Start: 05/23/23 13:10 Freq: Status: Active Protocol: Activity Type Activity Date Activity User E-sign Co-sign Detail Recorded Client Recorded Date Recorded By Document 05/23/23 13:23 Desktop 05/23/23 13:27 Document 05/30/23 14:06 Desktop 05/30/23 14:15 Document 06/06/23 13:43 Desktop 06/06/23 13:50 [id number] 06/06/23 13:23 14:06 13:43 Wound Center Nurse 2 #1- R STUMP -Time 13:25 14:06 13:43 -Correct Patient Yes Yes Yes -Correct Side, Site, Position Yes Yes Yes -Correct Procedure Yes Yes Yes -Procedure Performed Yes Yes Yes -Type of Procedure Debridement Debridement Debridement -Clinical Debridement Subcutaneous Subcutaneous Subcutaneous -Tissue Removed Subcutaneous Subcutaneous Subcutaneous -Post Debridement (cm) - Length 0.7 0.4 0.3 -Post Debridement (cm) - Width 0.4 0.4 0.3 -Post Debridement (cm) - Depth 2.2 2.6 2.2 -Total Square (Post) (cm) 0.28 0.16 0.09 -Area of Debridement (cm) - Length 0.7 0.4 0.3 -Area of Debridement (cm) - Width 0.4 0.4 0.3 -Total Square (Area) (cm) 0.28 0.16 0.09 -Tunneling No No No -Undermining/Tunneling No No No -Circular Undermining No No No -Wound/Ulcer Outcome Not Healed Not Healed Not Healed -Ulcer Cleansing Rinsed/ Rinsed/ Rinsed/ Irrigated with Irrigated with Irrigated with Saline Saline Saline -Foul Odor after Cleansing No No No -Bioengineered Tissue No -Bleeding Controlled with Pressure Pressure Pressure -Treatment Response Procedure Procedure Procedure Tolerated Well Tolerated Well Tolerated Well -Debridement - Subq, 1st 20sq cm Yes Yes Yes Pain Scale: 0-10 Numeric Is Patient Pain Free? Yes Yes Yes WC - Nurse 3 - General Ulcer D/C NN Start: 05/23/23 13:10 Freq: Status: Active Protocol: Activity Type Activity Date Activity User E-sign Co-sign Detail Recorded Client Recorded Date Recorded By Document 05/23/23 13:43 KW Desktop 05/23/23 13:47 KW Document 05/30/23 14:37 RB Desktop 05/30/23 14:38 RB Document 06/06/23 14:02 GM Desktop 06/06/23 14:04 GM 05/23/23 05/30/23 06/06/23 13:43 14:37 14:02 Wound Care Center Nurse 3 #1- R STUMP -Ulcer Cleansing Rinsed/ Not Cleansed Irrigated with Saline -Foul Odor after Cleansing No -Primary Dressing Applied Nugauze, Plain Nugauze, Nugauze, 1/4in Iodoform 1/4in Iodoform 1/4in -Other Dressing nugauze moistened with dakins -Primary Dressing Covered/Secured with Dry Gauze, Dry Gauze,Dry Dry Gauze & Secured with Gauze & Roll Roll Gauze, Tape Gauze,Secured Secured with with Tape Tape -Other Covering soaked with dakins -Nugauze, Iodoform 1/4in 1 1 -Nugauze, Plain 1/4in 1 Treatment Response Procedure Tolerated Well Pain Scale: 0-10 Numeric Is Patient Pain Free? 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 The outside diameter has decreased in size. Erythema and warmth remains resolved. Still noting milky yellow drainage. No foul odor. She has followed up with her orthopedic surgeon. No plans for surgical intervention at this time. She does have follow-up in early June. With the skin continuing to heal well the depth remains stable I do think it would be beneficial to have operative debridement with bone biopsy to r/o chronic osteo and to open up the tract which might allow us to use negative pressure therapy or otherwise support healing from the inside out. Her labs last week came back within normal limits. Continue Bactrim therapy. No evidence of osteomyelitis on XR. Will continue to pack with dakins-soaked Nugauze and cover with foam-border or bulky dry dressing. Again encouraged to ensure that her packing the full depth of the wound to encourage healing from the inside out and to try to prevent the outside from healing over. Continue to avoid use of prosthetic so as not to apply further pressure to the area. She will return to the wound center in 1 week, sooner if needed. We discussed the red flag signs/symptoms which should lead her to present to the ER, she and her daughter acknowledged understanding.
--- NOTE | 2023-06-06 18:22 | PCM.WC.PN ---
History of Present Illness Date of Service: 06/06/23 Chief Complaint: R BKA stump wound History of Wound: Arianna Jerry is a 57 y/o female who presents to the wound healing center today for management of a right BKA stump wound. She is accompanied to the appointment today by her daughter who helps to supplement her history and also helps with her wound care. 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 At that time, they explored and washed out proximally in her thigh as well. Subsequently she initially had wound vac placed prior to secondary closure. She reports that the amputation site did ultimately heal fully and she was able to obtain a prosthetic. She had been doing very well with her prosthetic and getting back to work etc. Unfortunately about 1-2 months ago she developed a wound on her amputation stump due to the prosthetic rubbing in this area. She presented to the [facility] ER on 02/26/23 with concern of infection. She was admitted from 02/26-03/01 for IV antibiotics. Wound cultures were positive for staph aureus, blood cultures were negative. She was evaluated by orthopedics at that time as well. XR and CT scan performed during that admission were negative for signs of osteomyelitis. She was seen at the wound center from 03/15/24 - 04/19/23 prior to discharge. At time of discharge, wound had epithelialized. Patient reports it remained stable until earlier this week when she first wore her prosthetic again at which time that area busted open and was noted to have deeper tracking prompting her return. There is some erythema surrounding the wound, they deny significant drainage. She denies any N/V, F/C. Objective Data Objective Data Vital Signs: Vital Signs Temp Pulse Resp BP O2 Del Method 97.8 F 99 16 121/51 H Room Air 06/06/23 13:21 06/06/23 13:21 06/06/23 13:21 06/06/23 13:21 06/06/23 13:21 Oxygen Delivery Method Room Air Weight: 96 lb Body Mass Index (BMI) 18.7 Debridement Note Debridement Note Post-Debridement Measurements and Additional Note: Post-Debridement Measurements/Treatment SUE - Nurse 1 - General Ulcer Assessment Start: 05/23/23 13:10 Freq: Status: Active Protocol: APRIL Activity Type Activity Date Activity User E-sign Co-sign Detail Recorded Client Recorded Date Recorded By Document 05/23/23 13:11 RB Desktop 05/23/23 13:14 RB Document 05/30/23 14:55 MT [id number] 05/30/23 14:58 MT Document 06/06/23 13:21 BMF Desktop 06/06/23 13:29 BMF 05/23/23 05/30/23 06/06/23 13:11 14:55 13:21 WC - Today's Visit Information Type of service Follow-up Visit Initial Visit Follow-up Visit (Physician/HANDICAPPED TEACHER (Physician/HANDICAPPED TEACHER ) ) Arrival Mode Wheelchair Ambulatory Wheelchair Transfer Assistance None Other Transfer Assist (Other) 1 STAND BY Accompanied by daughter DAUGHTER Patient Identification Verified (Name & Yes Yes Yes ) Patient Requires Transmission-Based No No Precautions Safety Precautions Fall Prevention Height and Weight Body Mass Index (BMI) 18.7 18.7 18.7 BMI Classification Normal Normal Normal Vital Signs Temperature (97.8 F-99.1 F) 97 F L 97 F L 97.8 F Temperature Source Temporal Temporal Temporal Pulse Rate (60-100) 45 L 95 99 Pulse Location Monitor Monitor Monitor Respiratory Rate (12-18) 18 16 16 Respiratory rate source Observation Observation Observation Oxygen Delivery Method Room Air Blood Pressure (90/60-120/80) 132/54 H 115/65 121/51 H Blood Pressure Mean (mm Hg) 80 81 74 Source Monitor Monitor Monitor Position Semi-Fowlers Sitting Sitting Blood Pressure Location Left Arm Left Arm Left Arm History Since Last Visit- (Skip if this is Patient's initial visit) Have you changed medications since your No No last visit? Any new allergies or adverse reactions No No Had a fall/change in ADL's that may No No increase risk of falls Signs or symptoms of abuse and/or No No neglect since last visit Have you been in the hospital since your No No last visit? Has dressing in place as prescribed Yes Yes Has compression in place as prescribed No N/A Yes Has offloadiing in place as prescribed No N/A N/A Experienced any changes in pain level or No No management Left Footwear Regular Shoe Regular Shoe Right Footwear Regular Shoe Pain Scale: 0-10 Numeric Is Patient Pain Free? Yes Yes Yes - Nurse 1 - General Ulcer Measurement Start: 05/23/23 13:10 Freq: Status: Active Protocol: Activity Type Activity Date Activity User E-sign Co-sign Detail Recorded Client Recorded Date Recorded By Document 05/23/23 13:11 RB Desktop 05/23/23 13:14 RB Document 05/30/23 14:55 NV [id number] 05/30/23 14:58 NV Document 06/06/23 13:21 [facility] Desktop 06/06/23 13:29 BM 05/23/23 05/30/23 06/06/23 13:11 14:55 13:21 Wound Center Nurse 1 #1- R STUMP -Combined with other wound No No -Current Size (cm) - Length 0.8 0.5 0.2 -Current Size (cm) - Width 0.4 0.5 0.3 -Current Size (cm) - Depth 0.5 1.8 1.4 -Total Square Cm 0.32 0.25 0.06 -Date of Last Picture (Recall this 06/06/23 field) -Photo Taken Yes -Tunneling Yes Yes -Tunneling Position (O'clock) 12 12 -Tunneling Distance (cm) 1 1.8 -Undermining/Tunneling No No -Circular Undermining No No -Exudate Amt Medium Small Medium -Exudate Type Serosanguineous Serosanguineous Purulent -Wound Margin Distinct, Flat & Intact Distinct, Outline Outline Attached Attached -Granulation Amt Medium (34-66%) Large (67-100%) Large (67-100%) -Granulation Quality [place] Pale,[place] Red -Slough/Fibrin Yes -Necrosis Amt Medium (34-66%) Small (1-33%) -Necrotic Tissue Type Adherent Slough Adherent Slough -Structure Exposed N/A -Texture (Edwina-wound Skin Appearance) Assessed Assessed Assessed, Scarring -Moisture (Edwina-wound Skin Appearance) Maceration Assessed Assessed -Color (Edwina-wound Skin Appearance) Assessed Assessed Assessed -Temperature (Edwina-wound Skin No Abnormality No Abnormality No Abnormality Appearance) (Pt Warm) (Pt Warm) (Pt Warm) -Tenderness on Palpation (Edwina-wound No No No Skin Appearance) -Ulcer Cleansing Wound Cleanser Rinsed/ Rinsed/ Irrigated with Irrigated with Saline Saline -Foul Odor after Cleansing No No No -Anesthetic Used 5% Lidocaine 5% Lidocaine 5% Lidocaine Gel Gel Gel WC - Nurse 2 - General Ulcer CM Notes Start: 05/23/23 13:10 Freq: Status: Active Protocol: Activity Type Activity Date Activity User E-sign Co-sign Detail Recorded Client Recorded Date Recorded By Document 05/23/23 13:23 Desktop 05/23/23 13:27 Document 05/30/23 14:06 Desktop 05/30/23 14:15 Document 06/06/23 13:43 Desktop 06/06/23 13:50 05/23/23 05/30/23 06/06/23 13:23 14:06 13:43 Wound Center Nurse 2 #1- R STUMP -Time 13:25 14:06 13:43 -Correct Patient Yes Yes Yes -Correct Side, Site, Position Yes Yes Yes -Correct Procedure Yes Yes Yes -Procedure Performed Yes Yes Yes -Type of Procedure Debridement Debridement Debridement -Clinical Debridement Subcutaneous Subcutaneous Subcutaneous -Tissue Removed Subcutaneous Subcutaneous Subcutaneous -Post Debridement (cm) - Length 0.7 0.4 0.3 -Post Debridement (cm) - Width 0.4 0.4 0.3 -Post Debridement (cm) - Depth 2.2 2.6 2.2 -Total Square (Post) (cm) 0.28 0.16 0.09 -Area of Debridement (cm) - Length 0.7 0.4 0.3 -Area of Debridement (cm) - Width 0.4 0.4 0.3 -Total Square (Area) (cm) 0.28 0.16 0.09 -Tunneling No No No -Undermining/Tunneling No No No -Circular Undermining No No No -Wound/Ulcer Outcome Not Healed Not Healed Not Healed -Ulcer Cleansing Rinsed/ Rinsed/ Rinsed/ Irrigated with Irrigated with Irrigated with Saline Saline Saline -Foul Odor after Cleansing No No No -Bioengineered Tissue No -Bleeding Controlled with Pressure Pressure Pressure -Treatment Response Procedure Procedure Procedure Tolerated Well Tolerated Well Tolerated Well -Debridement - Subq, 1st 20sq cm Yes Yes Yes Pain Scale: 0-10 Numeric Is Patient Pain Free? Yes Yes Yes - Nurse 3 - General Ulcer D/C NN Start: 05/23/23 13:10 Freq: Status: Active Protocol: Activity Type Activity Date Activity User E-sign Co-sign Detail Recorded Client Recorded Date Recorded By Document 05/23/23 13:43 Desktop 05/23/23 13:47 KW Document 05/30/23 14:37 RB Desktop 05/30/23 14:38 RB Document 06/06/23 14:02 Desktop 06/06/23 14:04 05/23/23 05/30/23 06/06/23 13:43 14:37 14:02 Wound Care Center Nurse 3 #1- R STUMP -Ulcer Cleansing Rinsed/ Not Cleansed Irrigated with Saline -Foul Odor after Cleansing No -Primary Dressing Applied Nugauze, Plain Nugauze, Nugauze, 1/4in Iodoform 1/4in Iodoform 1/4in -Other Dressing nugauze moistened with dakins -Primary Dressing Covered/Secured with Dry Gauze, Dry Gauze,Dry Dry Gauze & Secured with Gauze & Roll Roll Gauze, Tape Gauze,Secured Secured with with Tape Tape -Other Covering soaked with dakins -Nugauze, Iodoform 1/4in 1 1 -Nugauze, Plain 1/4in 1 Treatment Response Procedure Tolerated Well Pain Scale: 0-10 Numeric Is Patient Pain Free? Yes Yes Yes Teaching: Wound Center dressing the wound -Person Taught Patient,Family -Teaching Method Discussion, Demonstration -Response to teaching Verbalize understanding WC - Visit Discharge Discharge Condition Stable Stable Stable Ambulatory Status Wheelchair Walker Wheelchair Transportation Private Auto Private Auto Private Auto Medication Reconcilliation completed & No No Yes provided to patient/care provider Clinical Summary of Care Provided Yes Yes Yes
[2023-06-13 15:35] VITALS: BP 127/54; PULSE 107; RESP 16; TEMP 36.1; BMI 18.7
--- NOTE | 2023-06-13 17:20 | PCM.WC.PN ---
History of Present Illness Date of Service: 06/13/23 Chief Complaint: R BKA stump wound History of Wound: Arianna Jerry is a 57 y/o female who presents to the wound healing center today for management of a right BKA stump wound. She is accompanied to the appointment today by her daughter who helps to supplement her history and also helps with her wound care. 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 At that time, they explored and washed out proximally in her thigh as well. Subsequently she initially had wound vac placed prior to secondary closure. She reports that the amputation site did ultimately heal fully and she was able to obtain a prosthetic. She had been doing very well with her prosthetic and getting back to work etc. Unfortunately about 1-2 months ago she developed a wound on her amputation stump due to the prosthetic rubbing in this area. She presented to the [facility] ER on 02/26/23 with concern of infection. She was admitted from 02/26-03/01 for IV antibiotics. Wound cultures were positive for staph aureus, blood cultures were negative. She was evaluated by orthopedics at that time as well. XR and CT scan performed during that admission were negative for signs of osteomyelitis. She was discharged with a course of Bactrim and referral here. At home, they have been doing daily dressing changes with iodoform and dry gauze dressing. Her daughter reports it has made significant improvement since her hospital stay. Subjective Subjective Daughter has noticed increased thicker drainage from the wound with dressing changes. They have not noticed increased redness, swelling, pain. No N/V, F/C. Objective Data Objective Data Vital Signs: Vital Signs Temp Pulse Resp BP O2 Del Method 96.9 F L 107 H 16 127/54 H Room Air 06/13/23 15:35 06/13/23 15:35 06/13/23 15:35 06/13/23 15:35 06/13/23 15:35 Oxygen Delivery Method Room Air Weight: 96 lb Body Mass Index (BMI) 18.7 Charges/Coding Procedures Integumentary [id number]: [id number] Ani musc/fascia 20 sq cm/< Physical Exam Const alert, oriented x3, no apparent distress and average body habitus General Appearance: cooperative HEENT normocephalic, head/scalp atraumatic, hearing grossly normal bilaterally, external ears normal and external nose normal Eyes EOMs intact bilaterally General Eye: normal appearance of both eyes Resp Effort and Inspection: able to speak in complete sentences; Negative for labored, stridor, retractions, uses accessory muscles or audible wheezes Extremity Extremity Narrative: R BKA Skin Wounds: wounds noted Wound Narrative: Wound to R BKA stump which still probes to bone. I am able to express yellow-white opaque drainage and a scant amount of thick white drainage. The erythema and warmth in the periwound remains resolved. The outer diameter of the wound is decreasing, the depth is measuring less but as noted still probing to bone. Psych mental status grossly normal Appearance: grossly normal Attitude: calm and engaged Activity / Motor Behavior: appropriate eye contact Judgement: judgement good Debridement Note Debridement Note Wound debrided: R BKA Laterality: Right Type of Debridement: Excisional debridement Anesthesia Used: 5% Lidocaine Gel Depth: Down to and including healthy tissue and to muscle Percentage of wound debrided: 100 Instrument Used: 3mm curette Tissue Removed: slough, devitalized tissue Severity: Necrosis of Muscle Amount of bleeding with debridement: Mild Bleeding Controlled with: Pressure Patient tolerated procedure: Patient tolerated procedure well Post-Debridement Measurements and Additional Note: Post-Debridement Measurements/Treatment - Nurse 1 - General Ulcer Assessment Start: 05/23/23 13:10 Freq: Status: Active Protocol: APRIL Activity Type Activity Date Activity User E-sign Co-sign Detail Recorded Client Recorded Date Recorded By Document 05/23/23 13:11 RB Desktop 05/23/23 13:14 RB Document 05/30/23 14:55 MI [id number] 05/30/23 14:58 MI Document 06/06/23 13:21 [facility] Desktop 06/06/23 13:29 [facility] Document 06/13/23 15:35 [facility] Desktop 06/13/23 15:40 F 05/23/23 05/30/23 06/06/23 13:11 14:55 13:21 - Today's Visit Information Type of service Follow-up Visit Initial Visit Follow-up Visit (Physician/WET ROOM WORKER (Physician/WET ROOM WORKER ) ) Arrival Mode Wheelchair Ambulatory Wheelchair Transfer Assistance None Other Transfer Assist (Other) 1 STAND BY Accompanied by daughter DAUGHTER Patient Identification Verified (Name & Yes Yes Yes ) Patient Requires Transmission-Based No No Precautions Safety Precautions Fall Prevention Height and Weight Body Mass Index (BMI) 18.7 18.7 18.7 BMI Classification Normal Normal Normal Vital Signs Temperature (97.8 F-99.1 F) 97 F L 97 F L 97.8 F Temperature Source Temporal Temporal Temporal Pulse Rate (60-100) 45 L 95 99 Pulse Location Monitor Monitor Monitor Respiratory Rate (12-18) 18 16 16 Respiratory rate source Observation Observation Observation Oxygen Delivery Method Room Air Blood Pressure (90/60-120/80) 132/54 H 115/65 121/51 H Blood Pressure Mean (mm Hg) 80 81 74 Source Monitor Monitor Monitor Position Semi-Fowlers Sitting Sitting Blood Pressure Location Left Arm Left Arm Left Arm History Since Last Visit- (Skip if this is Patient's initial visit) Have you changed medications since your No No last visit? Any new allergies or adverse reactions No No Had a fall/change in ADL's that may No No increase risk of falls Signs or symptoms of abuse and/or No No neglect since last visit Have you been in the hospital since your No No last visit? Has dressing in place as prescribed Yes Yes Has compression in place as prescribed No N/A Yes Has offloadiing in place as prescribed No N/A N/A Experienced any changes in pain level or No No management Left Footwear Regular Shoe Regular Shoe Right Footwear Regular Shoe Pain Scale: 0-10 Numeric Is Patient Pain Free? Yes Yes Yes 06/13/23 15:35 WC - Today's Visit Information Type of service Follow-up Visit (Physician/WET ROOM WORKER ) Arrival Mode Wheelchair Transfer Assistance None Transfer Assist (Other) DAUGHTER Accompanied by Patient Identification Verified (Name & Yes ) Patient Requires Transmission-Based No Precautions Safety Precautions Height and Weight Body Mass Index (BMI) 18.7 BMI Classification Normal Vital Signs Temperature (97.8 F-99.1 F) 96.9 F L Temperature Source Temporal Pulse Rate (60-100) 107 H Pulse Location Monitor Respiratory Rate (12-18) 16 Respiratory rate source Observation Oxygen Delivery Method Room Air Blood Pressure (90/60-120/80) 127/54 H Blood Pressure Mean (mm Hg) 78 Source Monitor Position Sitting Blood Pressure Location Right Arm History Since Last Visit- (Skip if this is Patient's initial visit) Have you changed medications since your No last visit? Any new allergies or adverse reactions No Had a fall/change in ADL's that may No increase risk of falls Signs or symptoms of abuse and/or No neglect since last visit Have you been in the hospital since your No last visit? Has dressing in place as prescribed Yes Has compression in place as prescribed Yes Has offloadiing in place as prescribed N/A Experienced any changes in pain level or No management Left Footwear Regular Shoe Right Footwear Pain Scale: 0-10 Numeric Is Patient Pain Free? Yes WC - Nurse 1 - General Ulcer Measurement Start: 05/23/23 13:10 Freq: Status: Active Protocol: Activity Type Activity Date Activity User E-sign Co-sign Detail Recorded Client Recorded Date Recorded By Document 05/23/23 13:11 RB Desktop 05/23/23 13:14 RB Document 05/30/23 14:55 MT [id number] 05/30/23 14:58 MT Document 06/06/23 13:21 [facility] Desktop 06/06/23 13:29 BMF Document 06/13/23 15:35 [facility] Desktop 06/13/23 15:40 BMF 05/23/23 05/30/23 06/06/23 13:11 14:55 13:21 Wound Center Nurse 1 #1- R STUMP -Combined with other wound No No -Current Size (cm) - Length 0.8 0.5 0.2 -Current Size (cm) - Width 0.4 0.5 0.3 -Current Size (cm) - Depth 0.5 1.8 1.4 -Total Square Cm 0.32 0.25 0.06 -Date of Last Picture (Recall this 06/06/23 field) -Photo Taken Yes -Epithelialization -Tunneling Yes Yes -Tunneling Position (O'clock) 12 12 -Tunneling Distance (cm) 1 1.8 -Undermining/Tunneling No No -Circular Undermining No No -Exudate Amt Medium Small Medium -Exudate Type Serosanguineous Serosanguineous Purulent -Wound Margin Distinct, Flat & Intact Distinct, Outline Outline Attached Attached -Granulation Amt Medium (34-66%) Large (67-100%) Large (67-100%) -Granulation Quality [place] Pale,[place] Red -Slough/Fibrin Yes -Necrosis Amt Medium (34-66%) Small (1-33%) -Necrotic Tissue Type Adherent Slough Adherent Slough -Structure Exposed N/A -Texture (Edwina-wound Skin Appearance) Assessed Assessed Assessed, Scarring -Moisture (Edwina-wound Skin Appearance) Maceration Assessed Assessed -Color (Edwina-wound Skin Appearance) Assessed Assessed Assessed -Temperature (Edwina-wound Skin No Abnormality No Abnormality No Abnormality Appearance) (Pt Warm) (Pt Warm) (Pt Warm) -Tenderness on Palpation (Edwina-wound No No No Skin Appearance) -Ulcer Cleansing Wound Cleanser Rinsed/ Rinsed/ Irrigated with Irrigated with Saline Saline -Foul Odor after Cleansing No No No -Anesthetic Used 5% Lidocaine 5% Lidocaine 5% Lidocaine Gel Gel Gel 06/13/23 15:35 Wound Center Nurse 1 #1- R STUMP -Combined with other wound No -Current Size (cm) - Length 0.3 -Current Size (cm) - Width 0.2 -Current Size (cm) - Depth 1 -Total Square Cm 0.06 -Date of Last Picture (Recall this field) -Photo Taken -Epithelialization Small 1-33% -Tunneling -Tunneling Position (O'clock) -Tunneling Distance (cm) -Undermining/Tunneling No -Circular Undermining No -Exudate Amt Medium -Exudate Type Serosanguineous -Wound Margin Distinct, Outline Attached -Granulation Amt Large (67-100%) -Granulation Quality [place] -Slough/Fibrin -Necrosis Amt -Necrotic Tissue Type -Structure Exposed -Texture (Edwina-wound Skin Appearance) Assessed, Scarring -Moisture (Edwina-wound Skin Appearance) Assessed -Color (Edwina-wound Skin Appearance) Assessed -Temperature (Edwina-wound Skin No Abnormality Appearance) (Pt Warm) -Tenderness on Palpation (Edwina-wound No Skin Appearance) -Ulcer Cleansing Rinsed/ Irrigated with Saline -Foul Odor after Cleansing No -Anesthetic Used 5% Lidocaine Gel WC - Nurse 2 - General Ulcer CM Notes Start: 05/23/23 13:10 Freq: Status: Active Protocol: Activity Type Activity Date Activity User E-sign Co-sign Detail Recorded Client Recorded Date Recorded By Document 05/23/23 13:23 GM Desktop 05/23/23 13:27 GM Document 05/30/23 14:06 GM Desktop 05/30/23 14:15 GM Document 06/06/23 13:43 GM Desktop 03/21/24 13:50 GM Document 06/13/23 15:56 GM Desktop 06/13/23 16:07 GM 05/23/23 05/30/23 06/06/23 13:23 14:06 13:43 Wound Center Nurse 2 #1- R STUMP -Time 13:25 14:06 13:43 -Correct Patient Yes Yes Yes -Correct Side, Site, Position Yes Yes Yes -Correct Procedure Yes Yes Yes -Procedure Performed Yes Yes Yes -Type of Procedure Debridement Debridement Debridement -Clinical Debridement Subcutaneous Subcutaneous Subcutaneous -Tissue Removed Subcutaneous Subcutaneous Subcutaneous -Post Debridement (cm) - Length 0.7 0.4 0.3 -Post Debridement (cm) - Width 0.4 0.4 0.3 -Post Debridement (cm) - Depth 2.2 2.6 2.2 -Total Square (Post) (cm) 0.28 0.16 0.09 -Area of Debridement (cm) - Length 0.7 0.4 0.3 -Area of Debridement (cm) - Width 0.4 0.4 0.3 -Total Square (Area) (cm) 0.28 0.16 0.09 -Tunneling No No No -Undermining/Tunneling No No No -Circular Undermining No No No -Wound/Ulcer Outcome Not Healed Not Healed Not Healed -Ulcer Cleansing Rinsed/ Rinsed/ Rinsed/ Irrigated with Irrigated with Irrigated with Saline Saline Saline -Foul Odor after Cleansing No No No -Bioengineered Tissue No -Bleeding Controlled with Pressure Pressure Pressure -Treatment Response Procedure Procedure Procedure Tolerated Well Tolerated Well Tolerated Well -Debridement - Subq, 1st 20sq cm Yes Yes Yes Pain Scale: 0-10 Numeric Is Patient Pain Free? Yes Yes Yes 06/13/23 15:56 Wound Center Nurse 2 #1- R STUMP -Time 15:59 -Correct Patient Yes -Correct Side, Site, Position Yes -Correct Procedure Yes -Procedure Performed Yes -Type of Procedure Debridement -Clinical Debridement Subcutaneous -Tissue Removed Subcutaneous -Post Debridement (cm) - Length 0.3 -Post Debridement (cm) - Width 0.4 -Post Debridement (cm) - Depth 1.6 -Total Square (Post) (cm) 0.12 -Area of Debridement (cm) - Length 0.3 -Area of Debridement (cm) - Width 0.4 -Total Square (Area) (cm) 0.12 -Tunneling No -Undermining/Tunneling No -Circular Undermining No -Wound/Ulcer Outcome Not Healed -Ulcer Cleansing Rinsed/ Irrigated with Saline -Foul Odor after Cleansing No -Bioengineered Tissue No -Bleeding Controlled with Pressure -Treatment Response Procedure Tolerated Well -Debridement - Subq, 1st 20sq cm Yes Pain Scale: 0-10 Numeric Is Patient Pain Free? Yes - Nurse 3 - General Ulcer D/C NN Start: 05/23/23 13:10 Freq: Status: Active Protocol: Activity Type Activity Date Activity User E-sign Co-sign Detail Recorded Client Recorded Date Recorded By Document 05/23/23 13:43 KW Desktop 05/23/23 13:47 KW Document 05/30/23 14:37 RB Desktop 05/30/23 14:38 RB Document 06/06/23 14:02 GM Desktop 06/06/23 14:04 GM Document 06/13/23 16:12 KW Desktop 06/13/23 16:13 KW 05/23/23 05/30/23 06/06/23 13:43 14:37 14:02 Wound Care Center Nurse 3 #1- R STUMP -Ulcer Cleansing Rinsed/ Not Cleansed Irrigated with Saline -Foul Odor after Cleansing No -Primary Dressing Applied Nugauze, Plain Nugauze, Nugauze, 1/4in Iodoform 1/4in Iodoform 1/4in -Other Dressing nugauze moistened with dakins -Primary Dressing Covered/Secured with Dry Gauze, Dry Gauze,Dry Dry Gauze & Secured with Gauze & Roll Roll Gauze, Tape Gauze,Secured Secured with with Tape Tape -Other Covering soaked with dakins -Nugauze, Iodoform 1/4in 1 1 -Nugauze, Plain 1/4in 1 Treatment Response Procedure Tolerated Well Pain Scale: 0-10 Numeric Is Patient Pain Free? Yes Yes Yes Teaching: Wound Center dressing the wound -Person Taught Patient,Family -Teaching Method Discussion, Demonstration -Response to teaching Verbalize understanding WC - Visit Discharge Discharge Condition Stable Stable Stable Ambulatory Status Wheelchair Walker Wheelchair Transportation Private Auto Private Auto Private Auto Medication Reconcilliation completed & No No Yes provided to patient/care provider Clinical Summary of Care Provided Yes Yes Yes 03/28/24 16:12 Wound Care Center Nurse 3 #1- R STUMP -Ulcer Cleansing -Foul Odor after Cleansing -Primary Dressing Applied Nugauze, Plain 1/4in -Other Dressing -Primary Dressing Covered/Secured with Dry Gauze, Secured with Tape -Other Covering -Nugauze, Iodoform 1/4in -Nugauze, Plain 1/4in 1 Treatment Response Pain Scale: 0-10 Numeric Is Patient Pain Free? 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 The outside diameter has decreased in size. Erythema and warmth remains resolved. Still noting milky yellow drainage. No foul odor. Will continue antibiotic therapy but switch agents to doxycycline per the culture results. No evidence of osteomyelitis on XR but with persistent depth to bone and significant drainage. Will obtain MRI to further assess for potential underlying osteo. Will continue to pack with dakins-soaked Nugauze and cover with foam-border or bulky dry dressing. Again encouraged to ensure that her packing the full depth of the wound to encourage healing from the inside out and to try to prevent the outside from healing over. Continue to avoid use of prosthetic so as not to apply further pressure to the area. She will return to the wound center in 2 weeks, sooner if needed. We discussed the red flag signs/symptoms which should lead her to present to the ER, she and her daughter acknowledged understanding.
== END 2023-06-16 23:59 | disposition home or self-care (01) ==
LOC: WC 15:30
PROVIDERS: PCP Family Medicine; Referring Provider Student in an Organized Health Care Education/Training Program; Visit Provider Physician Assistant
DX: T87.89 Other complications of amputation stump (principal); L97.813 Non-pressure chronic ulcer of other part of right lower leg with necrosis of muscle; Z89.511 Acquired absence of right leg below knee; Y84.9 Medical procedure, unspecified as the cause of abnormal reaction of the patient, or of later complication, without mention of misadventure at the time of the procedure; Z86.14 Personal history of Methicillin resistant Staphylococcus aureus infection
CPT/HCPCS: 11042

== ENCOUNTER → 2023-06-26 | Outpatient (CLI) | payer MEDICAID, SELFPAY ==
--- NOTE | 2023-06-26 17:41 | MRI_ITS ---
ACR Level 3 findings have been noted. An addendum which confirms receipt of the report will follow. STUDY: MRI LOWER EXTREMITY RIGHT TIBIA/FIBULA WITH AND WITHOUT CONTRAST REASON FOR EXAM: Female, 57 years old. OSTEOMYELITIS OF STUMP TECHNIQUE: Standardized fat and water weighted pulse sequences were obtained in all 3 orthogonal planes, post contrast administration. IV 9 cc clariscan was administered for the contrast portion of the examination. COMPARISON: X-ray of the right tibia and fibula dated May 16, 2023 FINDINGS: [id number] amputation with the proximal one third tibia and fibula remaining. Findings of acute on chronic osteomyelitis at the distal quarter/tip of the tibial stump is present with active patchy marrow edema and infiltrative signal present, mild most distal cortical erosion, as well as some sclerosis, cortical thickening, and mature periosteal reaction along the mediolateral shaft of the tibia. A partially closed subcutaneous sinus tract is present on the anteromedial side of the most distal aspect of the tibial stump that measures 5.2 mm in diameter and leads to a fluid collection/probable abscess mixed with serous and old hemorrhagic fluid anterior inferior to the infected tibial stump measuring 2.85 x 2.38 x 0.94 cm and diameter. There is moderate and diffuse intramuscular edema and swelling of the muscles surrounding the tibia and fibula within the soft tissue stump. There is peripheral enhancement of the infected fluid collection at the base of the tibia and adjacent to the sinus tract and the skin. Mild patchy enhancement is seen in the muscles consistent with myositis. There is also mild to moderate enhancement of the affected portion of the distal one quarter aspect of the tibia. The fibula fragment is normal and without evidence of edema or cortical erosion or osteomyelitis. MRI/Lower Ext No Joint W/WO Cont IMPRESSION: 1. Infected distal one quarter aspect of the tibial stump with acute osteomyelitis. Additional size of pre-existing/chronic osteomyelitis are also present. 2. An infected abscess and sinus tract from the skin are present around the distal tibial stump measuring 2.85 x 2.38 x 0.94 cm Electronically Signed: Jay Pedraza MD at 15:28 EDT ,
== END | disposition home or self-care (01) ==
PROVIDERS: PCP Family Medicine; Visit Provider Physician Assistant
DX: M86.9 Osteomyelitis, unspecified (principal)
CPT/HCPCS: 73720; A9575

== ENCOUNTER 2023-07-11 13:45 | Outpatient (RCR) | payer MEDICAID, SELFPAY ==
[2023-06-17 00:21] VITALS: BP 127/54; PULSE 107; RESP 16; TEMP 36.1; BMI 18.7
[2023-06-27 13:37] VITALS: BP 146/79; PULSE 76; RESP 16; TEMP 37.3; BMI 18.7
--- NOTE | 2023-06-27 17:07 | PN.PCM_ITS ---
History of Present Illness Date of Service: 06/27/23 Chief Complaint: R BKA stump wound History of Wound: Arianna Jerry is a 57 y/o female who presents to the wound healing center today for management of a right BKA stump wound. She is accompanied to the appointment today by her daughter who helps to supplement her history and also helps with her wound care. 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 At that time, they explored and washed out proximally in her thigh as well. Subsequently she initially had wound vac placed prior to secondary closure. She reports that the amputation site did ultimately heal fully and she was able to obtain a prosthetic. She had been doing very well with her prosthetic and getting back to work etc. Unfortunately about 1-2 months ago she developed a wound on her amputation stump due to the prosthetic rubbing in this area. She presented to the [facility] ER on 02/26/23 with concern of infection. She was admitted from 02/26-03/01 for IV antibiotics. Wound cultures were positive for staph aureus, blood cultures were negative. She was evaluated by orthopedics at that time as well. XR and CT scan performed during that admission were negative for signs of osteomyelitis. She was discharged with a course of Bactrim and referral here. At home, they have been doing daily dressing changes with iodoform and dry gauze dressing. Her daughter reports it has made significant improvement since her hospital stay. Subjective Subjective She completed MRI yesterday. No new N/V, F/C. No new redness, warmth around the wound. Continue to have drainage but daughter feels it is stable. No new pain. Objective Data Objective Data Vital Signs: Vital Signs Temp Pulse Resp BP O2 Del Method 99.1 F 76 16 146/79 H Room Air 06/27/23 13:37 06/27/23 13:37 06/27/23 13:37 06/27/23 13:37 06/27/23 13:37 Oxygen Delivery Method Room Air Weight: 96 lb Body Mass Index (BMI) 18.7 Charges/Coding Procedures Integumentary 111xxx-113xx: 40969 Ani musc/fascia 20 sq cm/< Physical Exam Const alert, oriented x3, no apparent distress and average body habitus General Appearance: cooperative HEENT normocephalic, head/scalp atraumatic, hearing grossly normal bilaterally, external ears normal and external nose normal Eyes EOMs intact bilaterally General Eye: normal appearance of both eyes Resp Effort and Inspection: able to speak in complete sentences; Negative for labored, stridor, retractions, uses accessory muscles or audible wheezes Extremity Extremity Narrative: R BKA Skin Wounds: wounds noted Wound Narrative: Wound to R BKA stump which still probes to bone. I am able to express yellow- white opaque drainage and a scant amount of thick white drainage. The erythema and warmth in the periwound remains resolved. The outer diameter of the wound is decreasing, the depth is measuring less but as noted still probing to bone. Psych mental status grossly normal Appearance: grossly normal Attitude: calm and engaged Activity / Motor Behavior: appropriate eye contact Judgement: judgement good Debridement Note Debridement Note Wound debrided: R BKA Laterality: Right Type of Debridement: Excisional debridement Anesthesia Used: 5% Lidocaine Gel Depth: Down to and including healthy tissue and to muscle Percentage of wound debrided: 100 Instrument Used: 3mm curette Tissue Removed: slough, devitalized tissue Severity: Necrosis of Muscle Amount of bleeding with debridement: Mild Bleeding Controlled with: Pressure Patient tolerated procedure: Patient tolerated procedure well Post-Debridement Measurements and Additional Note: Post-Debridement Measurements/Treatment - Nurse 1 - General Ulcer Assessment Start: 06/27/23 13:37 Freq: Status: Active Protocol: APRIL Activity Type Activity Date Activity User E-sign Co-sign Detail Recorded Client Recorded Date Recorded By Document 06/27/23 13:37 CP Desktop 06/27/23 13:39 CP 06/27/23 13:37 - Today's Visit Information Type of service Follow-up Visit (Physician/CASHIER OFFICE ) Arrival Mode Wheelchair Transfer Assistance Manual Transfer Assist (Other) 1 Accompanied by daughter Patient Identification Verified (Name & Yes ) Patient Requires Transmission-Based No Precautions Finger Stick Blood Sugar(mg/dl) (if 160 indicated): Blood Sugar Stated by Patient Height and Weight Body Mass Index (BMI) 18.7 BMI Classification Normal Vital Signs Temperature (97.8 F-99.1 F) 99.1 F Temperature Source Temporal Pulse Rate (60-100) 76 Pulse Location Monitor Respiratory Rate (12-18) 16 Respiratory rate source Observation Oxygen Delivery Method Room Air Blood Pressure (90/60-120/80) 146/79 H Blood Pressure Mean (mm Hg) 101 Source Monitor Position Sitting Blood Pressure Location Right Arm History Since Last Visit- (Skip if this is Patient's initial visit) Have you changed medications since your No last visit? Any new allergies or adverse reactions No Had a fall/change in ADL's that may No increase risk of falls Signs or symptoms of abuse and/or No neglect since last visit Have you been in the hospital since your No last visit? Has dressing in place as prescribed Yes Has compression in place as prescribed N/A Has offloadiing in place as prescribed N/A Experienced any changes in pain level or No management Pain Scale: 0-10 Numeric Is Patient Pain Free? Yes - Nurse 1 - General Ulcer Measurement Start: 06/27/23 13:37 Freq: Status: Active Protocol: Activity Type Activity Date Activity User E-sign Co-sign Detail Recorded Client Recorded Date Recorded By Document 06/27/23 13:37 CP Desktop 06/27/23 13:39 06/27/23 13:37 Wound Center Nurse 1 #1- R STUMP -Current Size (cm) - Length 0.3 -Current Size (cm) - Width 0.3 -Current Size (cm) - Depth 1.5 -Total Square Cm 0.09 -Photo Taken No -Exudate Amt Medium -Exudate Type Sanguineous -Wound Margin Flat & Intact -Granulation Amt Small (1-33%) -Granulation Quality [place] -Slough/Fibrin Yes -Necrosis Amt Medium (34-66%) -Necrotic Tissue Type Adherent Slough -Structure Exposed N/A -Texture (Edwina-wound Skin Appearance) No Abnormality -Moisture (Edwina-wound Skin Appearance) No Abnormality -Color (Edwina-wound Skin Appearance) No Abnormality -Temperature (Edwina-wound Skin No Abnormality Appearance) (Pt Warm) -Tenderness on Palpation (Edwina-wound No Skin Appearance) -Ulcer Cleansing Rinsed/ Irrigated with Saline -Foul Odor after Cleansing No -Anesthetic Used 5% Lidocaine Gel - Nurse 2 - General Ulcer CM Notes Start: 06/27/23 13:37 Freq: Status: Active Protocol: Activity Type Activity Date Activity User E-sign Co-sign Detail Recorded Client Recorded Date Recorded By Document 06/27/23 14:26 Desktop 06/27/23 14:30 06/27/23 14:26 Wound Center Nurse 2 -Time 14:26 -Correct Patient Yes -Correct Side, Site, Position Yes -Correct Procedure Yes -Procedure Performed Yes -Type of Procedure Debridement -Clinical Debridement Subcutaneous -Tissue Removed Subcutaneous -Post Debridement (cm) - Length 0.3 -Post Debridement (cm) - Width 0.4 -Post Debridement (cm) - Depth 2.4 -Total Square (Post) (cm) 0.12 -Area of Debridement (cm) - Length 0.3 -Area of Debridement (cm) - Width 0.4 -Total Square (Area) (cm) 0.12 -Tunneling No -Undermining/Tunneling No -Circular Undermining No -Wound/Ulcer Outcome Not Healed -Ulcer Cleansing Rinsed/ Irrigated with Saline -Foul Odor after Cleansing No -Bioengineered Tissue No -Bleeding Controlled with Pressure -Treatment Response Procedure Tolerated Well -Debridement - Subq, 1st 20sq cm Yes Pain Scale: 0-10 Numeric Is Patient Pain Free? Yes - Nurse 3 - General Ulcer D/C NN Start: 06/27/23 13:37 Freq: Status: Active Protocol: Activity Type Activity Date Activity User E-sign Co-sign Detail Recorded Client Recorded Date Recorded By Document 06/27/23 14:52 DL Desktop 06/27/23 14:53 DL 06/27/23 14:52 Wound Care Center Nurse 3 #1- R STUMP -Ulcer Cleansing Rinsed/ Irrigated with Saline -Foul Odor after Cleansing No -Other Dressing dakins/ nugauze -Primary Dressing Covered/Secured with Dry Gauze & Roll Gauze, Secured with Tape Treatment Response Procedure Tolerated Well Pain Scale: 0-10 Numeric Is Patient Pain Free? 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 The outside diameter has decreased in size. Erythema and warmth remains resolved. Still noting milky yellow drainage. No apparent foul odor. MRI did reveal evidence of acute on chronic osteomyelitis in the tibia with possible associated abscess. I have left a message at her orthopedic surgeon's office and faxed these results over. I think she will need to be seen sooner as she will need operative debridement to full address this infection. She is currently clinically stable so will manage on outpatient basis; however, we did discuss red flag signs and symptoms which should lead her to present to the ER sooner. Will also refer to ID. Will continue Bactrim for now. Will continue to pack with dakins-soaked Nugauze and cover with foam-border or bulky dry dressing. Again encouraged to ensure that her packing the full depth of the wound to encourage healing from the inside out and to try to prevent the outside from healing over. Continue to avoid use of prosthetic so as not to apply further pressure to the area. She will return to the wound center in 1 week.
[2023-07-04 13:38] VITALS: BP 126/71; PULSE 68; RESP 20; TEMP 36.1; BMI 18.7
--- NOTE | 2023-07-04 14:06 | PCM.WC.PN ---
History of Present Illness Date of Service: 07/04/23 Chief Complaint: R BKA stump wound History of Wound: Arianna Jerry is a 57 y/o female who presents to the wound healing center today for management of a right BKA stump wound. She is accompanied to the appointment today by her daughter who helps to supplement her history and also helps with her wound care. 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 At that time, they explored and washed out proximally in her thigh as well. Subsequently she initially had wound vac placed prior to secondary closure. She reports that the amputation site did ultimately heal fully and she was able to obtain a prosthetic. She had been doing very well with her prosthetic and getting back to work etc. Unfortunately about 1-2 months ago she developed a wound on her amputation stump due to the prosthetic rubbing in this area. She presented to the [facility] ER on 02/26/23 with concern of infection. She was admitted from 02/26-03/01 for IV antibiotics. Wound cultures were positive for staph aureus, blood cultures were negative. She was evaluated by orthopedics at that time as well. XR and CT scan performed during that admission were negative for signs of osteomyelitis. She was discharged with a course of Bactrim and referral here. At home, they have been doing daily dressing changes with iodoform and dry gauze dressing. Her daughter reports it has made significant improvement since her hospital stay. Subjective Subjective She is doing okay this week. No N/V, F/C, new/worsening drainage/erythema/warmth/pain at the wound. She has not yet heard from Dr. Franklin's office. I did call and leave a voicemail there. I also did fax the MRI results. Her appt to return is not for a few more weeks. Objective Data Objective Data Vital Signs: Vital Signs Temp Pulse Resp BP O2 Del Method 96.9 F L 68 20 H 126/71 H Room Air 07/04/23 13:38 07/04/23 13:38 07/04/23 13:38 07/04/23 13:38 06/27/23 13:37 Oxygen Delivery Method Room Air Weight: 96 lb Body Mass Index (BMI) 18.7 Charges/Coding Procedures Integumentary 111xxx-113xx: 70869 Ani musc/fascia 20 sq cm/< Physical Exam Const alert, oriented x3, no apparent distress and average body habitus General Appearance: cooperative HEENT normocephalic, head/scalp atraumatic, hearing grossly normal bilaterally, external ears normal and external nose normal Eyes EOMs intact bilaterally General Eye: normal appearance of both eyes Resp Effort and Inspection: able to speak in complete sentences; Negative for labored, stridor, retractions, uses accessory muscles or audible wheezes Extremity Extremity Narrative: R BKA Skin Wounds: wounds noted Wound Narrative: Wound to R BKA stump which still probes to bone. Still with small amount of opaque yellowish drainage, no purulence. No surrounding erythema, warmth, tenderness. Psych mental status grossly normal Appearance: grossly normal Attitude: calm and engaged Activity / Motor Behavior: appropriate eye contact Judgement: judgement good Debridement Note Debridement Note Wound debrided: R BKA Laterality: Right Type of Debridement: Excisional debridement Anesthesia Used: 5% Lidocaine Gel Depth: Down to and including healthy tissue and to muscle Percentage of wound debrided: 100 Instrument Used: 3mm curette Tissue Removed: slough, devitalized tissue Severity: Necrosis of Muscle Amount of bleeding with debridement: Mild Bleeding Controlled with: Pressure Patient tolerated procedure: Patient tolerated procedure well Post-Debridement Measurements and Additional Note: Post-Debridement Measurements/Treatment - Nurse 1 - General Ulcer Assessment Start: 06/27/23 13:37 Freq: Status: Active Protocol: APRIL Activity Type Activity Date Activity User E-sign Co-sign Detail Recorded Client Recorded Date Recorded By Document 06/27/23 13:37 CP Desktop 06/27/23 13:39 CP Document 07/04/23 13:38 DL Desktop 07/04/23 13:44 DL 06/27/23 07/04/23 13:37 13:38 - Today's Visit Information Type of service Follow-up Visit Follow-up Visit (Physician/EVENT OPERATIONS MANAGER (Physician/EVENT OPERATIONS MANAGER ) ) Arrival Mode Wheelchair Wheelchair Transfer Assistance Manual None Transfer Assist (Other) 1 Accompanied by daughter Patient Identification Verified (Name & Yes Yes ) Patient Requires Transmission-Based No No Precautions Finger Stick Blood Sugar(mg/dl) (if 160 169 indicated): Blood Sugar Stated by Stated by Patient Patient Height and Weight Body Mass Index (BMI) 18.7 18.7 BMI Classification Normal Normal Vital Signs Temperature (97.8 F-99.1 F) 99.1 F 96.9 F L Temperature Source Temporal Temporal Pulse Rate (60-100) 76 68 Pulse Location Monitor Monitor Respiratory Rate (12-18) 16 20 H Respiratory rate source Observation Observation Oxygen Delivery Method Room Air Blood Pressure (90/60-120/80) 146/79 H 126/71 H Blood Pressure Mean (mm Hg) 101 89 Source Monitor Monitor Position Sitting Blood Pressure Location Right Arm History Since Last Visit- (Skip if this is Patient's initial visit) Have you changed medications since your No No last visit? Any new allergies or adverse reactions No No Had a fall/change in ADL's that may No No increase risk of falls Signs or symptoms of abuse and/or No No neglect since last visit Have you been in the hospital since your No No last visit? Has dressing in place as prescribed Yes Yes Has compression in place as prescribed N/A Yes Has offloadiing in place as prescribed N/A Yes Experienced any changes in pain level or No No management Pain Scale: 0-10 Numeric Is Patient Pain Free? Yes Yes WC - Nurse 1 - General Ulcer Measurement Start: 06/27/23 13:37 Freq: Status: Active Protocol: Activity Type Activity Date Activity User E-sign Co-sign Detail Recorded Client Recorded Date Recorded By Document 06/27/23 13:37 CP Desktop 06/27/23 13:39 CP Document 07/04/23 13:38 DL Desktop 07/04/23 13:44 DL 06/27/23 07/04/23 13:37 13:38 Wound Center Nurse 1 #1- R STUMP -Current Size (cm) - Length 0.3 0.3 -Current Size (cm) - Width 0.3 0.3 -Current Size (cm) - Depth 1.5 1.8 -Total Square Cm 0.09 0.09 -Photo Taken No -Exudate Amt Medium Medium -Exudate Type Sanguineous Purulent -Wound Margin Flat & Intact Distinct, Outline Attached -Granulation Amt Small (1-33%) None Present (0 %) -Granulation Quality [place] -Slough/Fibrin Yes -Necrosis Amt Medium (34-66%) None Present (0 %) -Necrotic Tissue Type Adherent Slough -Structure Exposed N/A N/A -Texture (Edwina-wound Skin Appearance) No Abnormality Scarring -Moisture (Edwina-wound Skin Appearance) No Abnormality No Abnormality -Color (Edwina-wound Skin Appearance) No Abnormality No Abnormality -Temperature (Edwina-wound Skin No Abnormality No Abnormality Appearance) (Pt Warm) (Pt Warm) -Tenderness on Palpation (Edwina-wound No Skin Appearance) -Ulcer Cleansing Rinsed/ Soap and Water Irrigated with Saline -Foul Odor after Cleansing No No -Anesthetic Used 5% Lidocaine 5% Lidocaine Gel Gel WC - Nurse 2 - General Ulcer CM Notes Start: 06/27/23 13:37 Freq: Status: Active Protocol: Activity Type Activity Date Activity User E-sign Co-sign Detail Recorded Client Recorded Date Recorded By Document 06/27/23 14:26 GM Desktop 06/27/23 14:30 GM Document 07/04/23 13:52 GM Desktop 07/04/23 13:53 GM 06/27/23 07/04/23 14:26 13:52 Wound Center Nurse 2 #1- R STUMP -Time 14:26 13:52 -Correct Patient Yes Yes -Correct Side, Site, Position Yes Yes -Correct Procedure Yes Yes -Procedure Performed Yes Yes -Type of Procedure Debridement Debridement -Clinical Debridement Subcutaneous Subcutaneous -Tissue Removed Subcutaneous Subcutaneous -Post Debridement (cm) - Length 0.3 0.5 -Post Debridement (cm) - Width 0.4 0.3 -Post Debridement (cm) - Depth 2.4 2.5 -Total Square (Post) (cm) 0.12 0.15 -Area of Debridement (cm) - Length 0.3 0.5 -Area of Debridement (cm) - Width 0.4 0.3 -Total Square (Area) (cm) 0.12 0.15 -Tunneling No No -Undermining/Tunneling No No -Circular Undermining No No -Wound/Ulcer Outcome Not Healed Not Healed -Ulcer Cleansing Rinsed/ Rinsed/ Irrigated with Irrigated with Saline Saline -Foul Odor after Cleansing No No -Bioengineered Tissue No No -Bleeding Controlled with Pressure Pressure -Treatment Response Procedure Procedure Tolerated Well Tolerated Well -Debridement - Subq, 1st 20sq cm Yes Yes Pain Scale: 0-10 Numeric Is Patient Pain Free? Yes Yes SUE - Nurse 3 - General Ulcer D/C NN Start: 06/27/23 13:37 Freq: Status: Active Protocol: Activity Type Activity Date Activity User E-sign Co-sign Detail Recorded Client Recorded Date Recorded By Document 06/27/23 14:52 DL Desktop 06/27/23 14:53 DL 06/27/23 14:52 Wound Care Center Nurse 3 #1- R STUMP -Ulcer Cleansing Rinsed/ Irrigated with Saline -Foul Odor after Cleansing No -Other Dressing dakins/ nugauze -Primary Dressing Covered/Secured with Dry Gauze & Roll Gauze, Secured with Tape Treatment Response Procedure Tolerated Well Pain Scale: 0-10 Numeric Is Patient Pain Free? 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 The outside diameter has decreased in size. Erythema and warmth remains resolved. Still noting milky yellow drainage. No apparent foul odor. MRI did reveal evidence of acute on chronic osteomyelitis in the tibia with possible associated abscess. I have left a message at her orthopedic surgeon's office and faxed these results over, I will resend. I think she will need to be seen sooner as she will need operative debridement to full address this infection. She is currently clinically stable so will manage on outpatient basis; however, we did discuss red flag signs and symptoms which should lead her to present to the ER sooner. She has been referred to ID. Will continue Bactrim for now. I have encouraged her to contact the orthopedic office as well to see if she can f/u sooner. Will continue to pack with dakins-soaked Nugauze and cover with foam-border or bulky dry dressing. Again encouraged to ensure that her packing the full depth of the wound. Continue to avoid use of prosthetic so as not to apply further pressure to the area. She will return to the wound center in 1 week.
[2023-07-11 13:44] VITALS: BP 154/95; PULSE 91; RESP 18; TEMP 36.3; BMI 18.7
--- NOTE | 2023-07-11 16:21 | PN.PCM_ITS ---
History of Present Illness Date of Service: 07/11/23 Chief Complaint: R BKA stump wound History of Wound: Arianna Jerry is a 57 y/o female who presents to the wound healing center today for management of a right BKA stump wound. She is accompanied to the appointment today by her daughter who helps to supplement her history and also helps with her wound care. 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 At that time, they explored and washed out proximally in her thigh as well. Subsequently she initially had wound vac placed prior to secondary closure. She reports that the amputation site did ultimately heal fully and she was able to obtain a prosthetic. She had been doing very well with her prosthetic and getting back to work etc. Unfortunately about 1-2 months ago she developed a wound on her amputation stump due to the prosthetic rubbing in this area. She presented to the [facility] ER on 02/26/23 with concern of infection. She was admitted from 02/26-03/01 for IV antibiotics. Wound cultures were positive for staph aureus, blood cultures were negative. She was evaluated by orthopedics at that time as well. XR and CT scan performed during that admission were negative for signs of osteomyelitis. She was discharged with a course of Bactrim and referral here. At home, they have been doing daily dressing changes with iodoform and dry gauze dressing. Her daughter reports it has made significant improvement since her hospital stay. Subjective Subjective She is doing okay this week. No N/V, F/C, new/worsening drainage/erythema/warmth/pain at the wound. She continues to take Bactrim and is not having any adverse effects to this point. She does have intermittent diarrhea but this has been ongoing since she started Metformin years ago. Her appointment with Dr. Riggs, her orthopedic surgeon is early next week. She has not heard from ID to schedule an appointment. Objective Data Objective Data Vital Signs: Vital Signs Temp Pulse Resp BP O2 Del Method 97.4 F L 91 18 154/95 H Room Air 07/11/23 13:44 07/11/23 13:44 07/11/23 13:44 07/11/23 13:44 07/11/23 13:44 Oxygen Delivery Method Room Air Weight: 96 lb Body Mass Index (BMI) 18.7 Charges/Coding Procedures Integumentary 111xxx-113xx: 01990 Ani musc/fascia 20 sq cm/< Physical Exam Const alert, oriented x3, no apparent distress and average body habitus General Appearance: cooperative HEENT normocephalic, head/scalp atraumatic, hearing grossly normal bilaterally, external ears normal and external nose normal Eyes EOMs intact bilaterally General Eye: normal appearance of both eyes Resp Effort and Inspection: able to speak in complete sentences; Negative for labored, stridor, retractions, uses accessory muscles or audible wheezes Extremity Extremity Narrative: R BKA Skin Wounds: wounds noted Wound Narrative: Wound to R BKA stump which still probes to bone. Still with small amount of opaque yellowish drainage, no purulence. No surrounding erythema, warmth, tenderness. Psych mental status grossly normal Appearance: grossly normal Attitude: calm and engaged Activity / Motor Behavior: appropriate eye contact Judgement: judgement good Debridement Note Debridement Note Wound debrided: R BKA Laterality: Right Type of Debridement: Excisional debridement Anesthesia Used: 5% Lidocaine Gel Depth: Down to and including healthy tissue and to muscle Percentage of wound debrided: 100 Instrument Used: 3mm curette Tissue Removed: slough, devitalized tissue Severity: Necrosis of Muscle Amount of bleeding with debridement: Mild Bleeding Controlled with: Pressure Patient tolerated procedure: Patient tolerated procedure well Post-Debridement Measurements and Additional Note: Post-Debridement Measurements/Treatment - Nurse 1 - General Ulcer Assessment Start: 06/27/23 13:37 Freq: Status: Active Protocol: SUE.CELESTE Activity Type Activity Date Activity User E-sign Co-sign Detail Recorded Client Recorded Date Recorded By Document 06/27/23 13:37 CP Desktop 06/27/23 13:39 CP Document 07/04/23 13:38 DL Desktop 07/04/23 13:44 DL Document 07/11/23 13:44 KW Desktop 07/11/23 13:50 KW 06/27/23 07/04/23 07/11/23 13:37 13:38 13:44 - Today's Visit Information Type of service Follow-up Visit Follow-up Visit Follow-up Visit (Physician/DIRECTOR PRODUCT (Physician/DIRECTOR PRODUCT (Physician/DIRECTOR PRODUCT ) ) ) Arrival Mode Wheelchair Wheelchair Transfer Assistance Manual None Transfer Assist (Other) 1 Accompanied by daughter DAUGHTER Patient Identification Verified (Name & Yes Yes Yes ) Patient Requires Transmission-Based No No Precautions Finger Stick Blood Sugar(mg/dl) (if 160 169 indicated): Blood Sugar Stated by Stated by Patient Patient Height and Weight Body Mass Index (BMI) 18.7 18.7 18.7 BMI Classification Normal Normal Normal Vital Signs Temperature (97.8 F-99.1 F) 99.1 F 96.9 F L 97.4 F L Temperature Source Temporal Temporal Temporal Pulse Rate (60-100) 76 68 91 Pulse Location Monitor Monitor Monitor Respiratory Rate (12-18) 16 20 H 18 Respiratory rate source Observation Observation Observation Oxygen Delivery Method Room Air Room Air Blood Pressure (90/60-120/80) 146/79 H 126/71 H 154/95 H Blood Pressure Mean (mm Hg) 101 89 114 Source Monitor Monitor Monitor Position Sitting Semi-Fowlers Blood Pressure Location Right Arm Left Arm History Since Last Visit- (Skip if this is Patient's initial visit) Have you changed medications since your No No No last visit? Any new allergies or adverse reactions No No No Had a fall/change in ADL's that may No No No increase risk of falls Signs or symptoms of abuse and/or No No No neglect since last visit Have you been in the hospital since your No No No last visit? Has dressing in place as prescribed Yes Yes Yes Has compression in place as prescribed N/A Yes N/A Has offloadiing in place as prescribed N/A Yes N/A Experienced any changes in pain level or No No No management Left Footwear Surgical Shoe with pressure relief insole Right Footwear No Footwear Pain Scale: 0-10 Numeric Is Patient Pain Free? Yes Yes Yes WC - Nurse 1 - General Ulcer Measurement Start: 06/27/23 13:37 Freq: Status: Active Protocol: Activity Type Activity Date Activity User E-sign Co-sign Detail Recorded Client Recorded Date Recorded By Document 06/27/23 13:37 CP Desktop 06/27/23 13:39 CP Document 07/04/23 13:38 DL Desktop 07/04/23 13:44 DL Document 07/11/23 13:44 KW Desktop 07/11/23 13:50 KW 06/27/23 07/04/23 07/11/23 13:37 13:38 13:44 Wound Center Nurse 1 #1- R STUMP -Current Size (cm) - Length 0.3 0.3 0.2 -Current Size (cm) - Width 0.3 0.3 0.4 -Current Size (cm) - Depth 1.5 1.8 -Total Square Cm 0.09 0.09 0.08 -Photo Taken No -Exudate Amt Medium Medium Medium -Exudate Type Sanguineous Purulent Serosanguineous -Wound Margin Flat & Intact Distinct, Distinct, Outline Outline Attached Attached -Granulation Amt Small (1-33%) None Present (0 Large (67-100%) %) -Granulation Quality Foraker Red -Slough/Fibrin Yes -Necrosis Amt Medium (34-66%) None Present (0 %) -Necrotic Tissue Type Adherent Slough -Structure Exposed N/A N/A -Texture (Edwina-wound Skin Appearance) No Abnormality Scarring Assessed -Moisture (Edwina-wound Skin Appearance) No Abnormality No Abnormality Assessed -Color (Edwina-wound Skin Appearance) No Abnormality No Abnormality Assessed -Temperature (Edwina-wound Skin No Abnormality No Abnormality No Abnormality Appearance) (Pt Warm) (Pt Warm) (Pt Warm) -Tenderness on Palpation (Edwina-wound No No Skin Appearance) -Ulcer Cleansing Rinsed/ Soap and Water Rinsed/ Irrigated with Irrigated with Saline Saline -Foul Odor after Cleansing No No -Anesthetic Used 5% Lidocaine 5% Lidocaine 5% Lidocaine Gel Gel Gel WC - Nurse 2 - General Ulcer CM Notes Start: 06/27/23 13:37 Freq: Status: Active Protocol: Activity Type Activity Date Activity User E-sign Co-sign Detail Recorded Client Recorded Date Recorded By Document 06/27/23 14:26 [employer] 06/27/23 14:30 Document 07/04/23 13:52 [employer] 07/04/23 13:53 Document 07/11/23 14:49 [employer] 07/11/23 14:53 06/27/23 07/04/23 07/11/23 14:26 13:52 14:49 Wound Center Nurse 2 #1- R STUMP -Time 14:26 13:52 14:49 -Correct Patient Yes Yes Yes -Correct Side, Site, Position Yes Yes Yes -Correct Procedure Yes Yes Yes -Procedure Performed Yes Yes Yes -Type of Procedure Debridement Debridement Debridement -Clinical Debridement Subcutaneous Subcutaneous Subcutaneous -Tissue Removed Subcutaneous Subcutaneous Subcutaneous -Post Debridement (cm) - Length 0.3 0.5 0.5 -Post Debridement (cm) - Width 0.4 0.3 0.4 -Post Debridement (cm) - Depth 2.4 2.5 2.0 -Total Square (Post) (cm) 0.12 0.15 0.20 -Area of Debridement (cm) - Length 0.3 0.5 0.5 -Area of Debridement (cm) - Width 0.4 0.3 0.4 -Total Square (Area) (cm) 0.12 0.15 0.20 -Tunneling No No No -Undermining/Tunneling No No No -Circular Undermining No No No -Wound/Ulcer Outcome Not Healed Not Healed Not Healed -Ulcer Cleansing Rinsed/ Rinsed/ Rinsed/ Irrigated with Irrigated with Irrigated with Saline Saline Saline -Foul Odor after Cleansing No No No -Bioengineered Tissue No No -Bleeding Controlled with Pressure Pressure Pressure -Treatment Response Procedure Procedure Procedure Tolerated Well Tolerated Well Tolerated Well -Debridement - Subq, 1st 20sq cm Yes Yes Yes Pain Scale: 0-10 Numeric Is Patient Pain Free? Yes Yes Yes WC - Nurse 3 - General Ulcer D/C NN Start: 06/27/23 13:37 Freq: Status: Active Protocol: Activity Type Activity Date Activity User E-sign Co-sign Detail Recorded Client Recorded Date Recorded By Document 06/27/23 14:52 DL Desktop 06/27/23 14:53 DL Document 07/04/23 14:12 DL Desktop 07/04/23 14:13 DL Document 07/11/23 15:02 [facility] Desktop 07/11/23 15:03 [facility] 06/27/23 07/04/23 07/11/23 14:52 14:12 15:02 Wound Care Center Nurse 3 #1- R STUMP -Ulcer Cleansing Rinsed/ Rinsed/ Rinsed/ Irrigated with Irrigated with Irrigated with Saline Saline Saline -Foul Odor after Cleansing No No No -Other Dressing dakins/ nugauze nugauze 03/21 DAKINS MOIST NUGAUZE -Primary Dressing Covered/Secured with Dry Gauze & Dry Gauze & Dry Gauze & Roll Gauze, Roll Gauze, Roll Gauze, Secured with Secured with Secured with Tape Tape Tape Right -Other PT REAPPLIED STUMP HUC Treatment Response Procedure Procedure Procedure Tolerated Well Tolerated Well Tolerated Well Pain Scale: 0-10 Numeric Is Patient Pain Free? 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 Erythema and warmth remains resolved. Still noting milky yellow drainage. No apparent foul odor. MRI did reveal evidence of acute on chronic osteomyelitis in the tibia with possible associated abscess. She has an appointment with her orthopedic surgeon next week. She is advised to obtain a copy of the MRI on a disc to bring to the appointment -- she just needs to contact medical records. She has been referred to ID but has not heard from them regarding an appt, will follow-up on this and potentially refer to [facility] where her orthopedic surgeon is located. We did discuss red flag signs and symptoms which should lead her to present to the ER sooner. Will continue Bactrim for now. Will continue to pack with dakins-soaked Nugauze and cover with foam-border or bulky dry dressing. Again encouraged to ensure that her packing the full depth of the wound. Continue to avoid use of prosthetic so as not to apply further pressure to the area. She will return to the wound center in 1 week.
== END 2023-07-16 23:59 | disposition home or self-care (01) ==
LOC: WC 13:45
PROVIDERS: PCP Family Medicine; Referring Provider Student in an Organized Health Care Education/Training Program; Visit Provider Physician Assistant
DX: T87.89 Other complications of amputation stump (principal); L97.813 Non-pressure chronic ulcer of other part of right lower leg with necrosis of muscle; Z89.511 Acquired absence of right leg below knee; R19.7 Diarrhea, unspecified; Y83.5 Amputation of limb(s) as the cause of abnormal reaction of the patient, or of later complication, without mention of misadventure at the time of the procedure
CPT/HCPCS: 11042

== ENCOUNTER 2023-08-08 13:45 | Outpatient (RCR) | payer MEDICAID, SELFPAY ==
[2023-07-17 00:16] VITALS: BP 154/95; PULSE 91; RESP 18; TEMP 36.3; BMI 18.7
[2023-07-25 13:45] VITALS: BP 105/55; PULSE 101; RESP 18; TEMP 35.7; BMI 18.7
--- NOTE | 2023-07-25 18:05 | PCM.WC.PN ---
History of Present Illness Date of Service: 07/25/23 Chief Complaint: R BKA stump wound History of Wound: Arianna Jerry is a 57 y/o female who presents to the wound healing center today for management of a right BKA stump wound. She is accompanied to the appointment today by her daughter who helps to supplement her history and also helps with her wound care. 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 At that time, they explored and washed out proximally in her thigh as well. Subsequently she initially had wound vac placed prior to secondary closure. She reports that the amputation site did ultimately heal fully and she was able to obtain a prosthetic. She had been doing very well with her prosthetic and getting back to work etc. Unfortunately about 1-2 months ago she developed a wound on her amputation stump due to the prosthetic rubbing in this area. She presented to the [facility] ER on 02/26/23 with concern of infection. She was admitted from 02/26-03/01 for IV antibiotics. Wound cultures were positive for staph aureus, blood cultures were negative. She was evaluated by orthopedics at that time as well. XR and CT scan performed during that admission were negative for signs of osteomyelitis. She was discharged with a course of Bactrim and referral here. At home, they have been doing daily dressing changes with iodoform and dry gauze dressing. Her daughter reports it has made significant improvement since her hospital stay. Subjective Subjective She missed her wound center appointment last week as she was having surgery by Dr. Riggs for this wound. I have not yet received any records to review from this procedure. She reports that he did the surgical debridement and washout and did not find any infected bone though MRI did suggest osteomyelitis/myositis. She said he did obtain cultures, unclear if bone cultures deep wound cultures. Will request records from his office to review. She reports that he did send more antibiotics, she is fairly certain it is Bactrim as I had been prescribing. She is advised to take antibiotics as prescribed by Dr. Riggs as he will be able to further direct therapy based on those culture results. The wound is now closed with sutures. There is also an incision below the wound which is closed with sutures. She reports today is the first day that the dressings have been removed -- she was to keep them on for 1 week. The incision sites look great today, they are both well-approximated with sutures intact. There is no dehiscence. There is no apparent drainage. There is no surrounding erythema, warmth, or excessive tenderness. She sees Dr. Riggs again in 2 weeks. Objective Data Objective Data Vital Signs: Vital Signs Temp Pulse Resp BP O2 Del Method 96.3 F L 101 H 18 105/55 L Room Air 07/25/23 13:45 07/25/23 13:45 07/25/23 13:45 07/25/23 13:45 07/25/23 13:45 Oxygen Delivery Method Room Air Weight: 96 lb Body Mass Index (BMI) 18.7 Charges/Coding Visit Charges Office Visits / Consults: 36908 OV L3 Est 20min Physical Exam Const alert, oriented x3, no apparent distress and average body habitus General Appearance: cooperative HEENT normocephalic, head/scalp atraumatic, hearing grossly normal bilaterally, external ears normal and external nose normal Eyes EOMs intact bilaterally General Eye: normal appearance of both eyes Resp Effort and Inspection: able to speak in complete sentences; Negative for labored, stridor, retractions, uses accessory muscles or audible wheezes Extremity Extremity Narrative: R BKA Skin Wounds: wounds noted Wound Narrative: Wound to R BKA stump now surgically closed with sutures following operative debridement/washout. There is now also an incision along her prior BKA scar distal to the initial wound. This is also closed with sutures. At this time, both sites are well-approximated with sutures intact. There is no dehiscence, drainage, erythema, swelling, warmth, foul odor. Psych mental status grossly normal Appearance: grossly normal Attitude: calm and engaged Activity / Motor Behavior: appropriate eye contact Judgement: judgement good Debridement Note Debridement Note No debridement was completed: No debridement was completed today Post-Debridement Measurements and Additional Note: Post-Debridement Measurements/Treatment - Nurse 1 - General Ulcer Assessment Start: 07/25/23 13:44 Freq: Status: Active Protocol: APRIL Activity Type Activity Date Activity User E-sign Co-sign Detail Recorded Client Recorded Date Recorded By Document 07/25/23 13:45 KW Desktop 07/25/23 13:52 KW 07/25/23 13:45 - Today's Visit Information Type of service Follow-up Visit (Physician/IN 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 ) Arrival Mode Wheelchair Accompanied by DAUGHTER Patient Identification Verified (Name & Yes ) Height and Weight Body Mass Index (BMI) 18.7 BMI Classification Normal Vital Signs Temperature (97.8 F-99.1 F) 96.3 F L Temperature Source Temporal Pulse Rate (60-100) 101 H Pulse Location Monitor Respiratory Rate (12-18) 18 Respiratory rate source Observation Oxygen Delivery Method Room Air Blood Pressure (90/60-120/80) 105/55 L Blood Pressure Mean (mm Hg) 71 Source Monitor Position Semi-Fowlers Blood Pressure Location Left Arm History Since Last Visit- (Skip if this is Patient's initial visit) Have you changed medications since your No last visit? Any new allergies or adverse reactions No Had a fall/change in ADL's that may No increase risk of falls Signs or symptoms of abuse and/or No neglect since last visit Have you been in the hospital since your No last visit? Has dressing in place as prescribed Yes Has compression in place as prescribed Yes Has offloadiing in place as prescribed N/A Experienced any changes in pain level or No management Left Footwear Surgical Shoe with pressure relief insole Right Footwear No Footwear Pain Scale: 0-10 Numeric Is Patient Pain Free? Yes WC - Nurse 1 - General Ulcer Measurement Start: 07/25/23 13:44 Freq: Status: Active Protocol: Activity Type Activity Date Activity User E-sign Co-sign Detail Recorded Client Recorded Date Recorded By Document 07/25/23 13:45 KW Desktop 07/25/23 13:52 KW 07/25/23 13:45 Wound Center Nurse 1 #2 RT STUMP POST-OP -Current Size (cm) - Length 0.1 -Current Size (cm) - Width 0.1 -Current Size (cm) - Depth 0.1 -Total Square Cm 0.01 -Date of Last Picture (Recall this 07/25/23 field) -Texture (Edwina-wound Skin Appearance) Assessed -Moisture (Edwina-wound Skin Appearance) Assessed -Color (Edwina-wound Skin Appearance) Assessed -Temperature (Edwina-wound Skin No Abnormality Appearance) (Pt Warm) -Tenderness on Palpation (Edwina-wound No Skin Appearance) -Ulcer Cleansing Soap and Water -Foul Odor after Cleansing No -Wound Comment(s) NO LIDOCAINE APPLIED, SUTURES ARE ATTACT WC - Nurse 2 - General Ulcer CM Notes Start: 07/25/23 13:44 Freq: Status: Active Protocol: Activity Type Activity Date Activity User E-sign Co-sign Detail Recorded Client Recorded Date Recorded By Document 07/25/23 13:55 Desktop 07/25/23 13:56 07/25/23 13:55 Wound Center Nurse 2 -Time 13:56 -Correct Patient Yes -Correct Side, Site, Position Yes -Wound/Ulcer Outcome Not Healed -Wound Comment(s) post op, sutures are intact Pain Scale: 0-10 Numeric Is Patient Pain Free? Yes - Nurse 3 - General Ulcer D/C NN Start: 07/25/23 13:44 Freq: Status: Active Protocol: Activity Type Activity Date Activity User E-sign Co-sign Detail Recorded Client Recorded Date Recorded By Document 07/25/23 14:05 DL Desktop 07/25/23 14:06 DL 07/25/23 14:05 Wound Care Center Nurse 3 #2 RT STUMP POST-OP -Ulcer Cleansing Rinsed/ Irrigated with Saline -Foul Odor after Cleansing No -Primary Dressing Covered/Secured with Dry Gauze & Roll Gauze -Other Covering ABD Right -Compression Wrap Dexter Wrap Treatment Response Procedure Tolerated Well Pain Scale: 0-10 Numeric Is Patient Pain Free? 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 Both sites appear well-healing to this point and without any sign of infection. She is instructed to continue to keep the area clean and dry. She is instructed to apply bulky, dry dressing which she is to change daily or more often as needed to keep clean. She is instructed to abide by any further instructions from Dr. Riggs's office. I advised that sutures will be removed by his office or per their instructions. She is to continue to take antibiotics at their direction. She is reminded to take extra caution with transfers and activity so as not to injure the stump or disrupt the incisions. Will request records from her procedure and also operative culture results. She will return to the office in 2 weeks after her next appt with Dr. Riggs but certainly sooner if any concerns arise.
--- NOTE | 2023-07-26 08:49 | WC ---
07/25/2023 RIGHT STUMP POST OP
[2023-08-08 13:51] VITALS: BP 104/51; PULSE 93; RESP 18; TEMP 36.1; BMI 18.7
--- NOTE | 2023-08-08 16:50 | PCM.WC.PN ---
History of Present Illness Date of Service: 08/08/23 Chief Complaint: R BKA stump wound History of Wound: Arianna Jerry is a 57 y/o female who presents to the wound healing center today for management of a right BKA stump wound. She is accompanied to the appointment today by her daughter who helps to supplement her history and also helps with her wound care. 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 At that time, they explored and washed out proximally in her thigh as well. Subsequently she initially had wound vac placed prior to secondary closure. She reports that the amputation site did ultimately heal fully and she was able to obtain a prosthetic. She had been doing very well with her prosthetic and getting back to work etc. Unfortunately about 1-2 months ago she developed a wound on her amputation stump due to the prosthetic rubbing in this area. She presented to the [facility] ER on 02/26/23 with concern of infection. She was admitted from 02/26-03/01 for IV antibiotics. Wound cultures were positive for staph aureus, blood cultures were negative. She was evaluated by orthopedics at that time as well. XR and CT scan performed during that admission were negative for signs of osteomyelitis. She was discharged with a course of Bactrim and referral here. At home, they have been doing daily dressing changes with iodoform and dry gauze dressing. Her daughter reports it has made significant improvement since her hospital stay. Subjective Subjective Patient returns to the wound clinic today accompanied by her daughter. She saw her orthopedic surgeon on Saturday and he removed the sutures from the incisions and placed steri-strips over the incision sites. She reports she was instructed to leave the steri-strips in place for 2 weeks until they fall off on their own. She is not noticing any significant drainage from the wound. No surrounding erythema. She reports that her operative cultures came back good (do not have these available for review) and they are not planning to continue antibiotics. Objective Data Objective Data Vital Signs: Vital Signs Temp Pulse Resp BP O2 Del Method 97.0 F L 93 18 104/51 L Room Air 08/08/23 13:51 08/08/23 13:51 08/08/23 13:51 08/08/23 13:51 08/08/23 13:51 Oxygen Delivery Method Room Air Weight: 96 lb Body Mass Index (BMI) 18.7 Charges/Coding Visit Charges Office Visits / Consults: 43065 OV L3 Est 20min Physical Exam Const alert, oriented x3, no apparent distress and average body habitus General Appearance: cooperative HEENT normocephalic, head/scalp atraumatic, hearing grossly normal bilaterally, external ears normal and external nose normal Eyes EOMs intact bilaterally General Eye: normal appearance of both eyes Resp Effort and Inspection: able to speak in complete sentences; Negative for labored, stridor, retractions, uses accessory muscles or audible wheezes Extremity Extremity Narrative: R BKA Skin Wounds: wounds noted Wound Narrative: Wound to R BKA stump now with incision sites covered by steri-strips. These were not removed. The incisions were not probed. From what was visible, the wound edges are all viable, appear to remain well-approximated with no apparent dehiscence. No drainage, erythema, foul odor was noted. Psych mental status grossly normal Appearance: grossly normal Attitude: calm and engaged Activity / Motor Behavior: appropriate eye contact Judgement: judgement good Debridement Note Debridement Note No debridement was completed: No debridement was completed today Post-Debridement Measurements and Additional Note: Post-Debridement Measurements/Treatment - Nurse 1 - General Ulcer Assessment Start: 07/25/23 13:44 Freq: Status: Active Protocol: APRIL Activity Type Activity Date Activity User E-sign Co-sign Detail Recorded Client Recorded Date Recorded By Document 07/25/23 13:45 KW Desktop 07/25/23 13:52 KW Document 08/08/23 13:51 KW wound center 08/08/23 13:53 KW Edit Result 08/08/23 13:51 KW (1) wound center 08/08/23 13:53 KW (1) Pulse Rate (60-100) => 93 Blood Pressure (90/60-120/80) => 104/51 L Blood Pressure Mean (mm Hg) => 68 07/25/23 08/08/23 13:45 13:51 - Today's Visit Information Type of service Follow-up Visit Follow-up Visit (Physician/ADMINISTRATIVE COURT JUSTICE (Physician/ADMINISTRATIVE COURT JUSTICE ) ) Arrival Mode Wheelchair Wheelchair Accompanied by DAUGHTER DAUGHTER Patient Identification Verified (Name & Yes Yes ) Height and Weight Body Mass Index (BMI) 18.7 18.7 BMI Classification Normal Normal Vital Signs Temperature (97.8 F-99.1 F) 96.3 F L 97.0 F L Temperature Source Temporal Temporal Pulse Rate (60-100) 101 H 93 Pulse Location Monitor Monitor Respiratory Rate (12-18) 18 18 Respiratory rate source Observation Observation Oxygen Delivery Method Room Air Room Air Blood Pressure (90/60-120/80) 105/55 L 104/51 L Blood Pressure Mean (mm Hg) 71 68 Source Monitor Monitor Position Semi-Fowlers Semi-Fowlers Blood Pressure Location Left Arm Right Arm History Since Last Visit- (Skip if this is Patient's initial visit) Have you changed medications since your No No last visit? Any new allergies or adverse reactions No No Had a fall/change in ADL's that may No No increase risk of falls Signs or symptoms of abuse and/or No No neglect since last visit Have you been in the hospital since your No No last visit? Has dressing in place as prescribed Yes Yes Has compression in place as prescribed Yes Yes Has offloadiing in place as prescribed N/A N/A Experienced any changes in pain level or No No management Left Footwear Surgical Shoe Regular Shoe with pressure relief insole Right Footwear No Footwear No Footwear Pain Scale: 0-10 Numeric Is Patient Pain Free? Yes Yes WC - Nurse 1 - General Ulcer Measurement Start: 07/25/23 13:44 Freq: Status: Active Protocol: Activity Type Activity Date Activity User E-sign Co-sign Detail Recorded Client Recorded Date Recorded By Document 07/25/23 13:45 KW Desktop 07/25/23 13:52 KW Document 08/08/23 13:51 KW wound center 08/08/23 13:53 KW 07/25/23 08/08/23 13:45 13:51 Wound Center Nurse 1 #2 RT STUMP POST-OP -Current Size (cm) - Length 0.1 0.1 -Current Size (cm) - Width 0.1 0.1 -Current Size (cm) - Depth 0.1 0.1 -Total Square Cm 0.01 0.01 -Date of Last Picture (Recall this 07/25/23 field) -Texture (Edwina-wound Skin Appearance) Assessed Assessed -Moisture (Edwina-wound Skin Appearance) Assessed Assessed -Color (Edwina-wound Skin Appearance) Assessed Assessed -Temperature (Edwina-wound Skin No Abnormality No Abnormality Appearance) (Pt Warm) (Pt Warm) -Tenderness on Palpation (Edwina-wound No No Skin Appearance) -Ulcer Cleansing Soap and Water -Foul Odor after Cleansing No No -Wound Comment(s) NO LIDOCAINE PT HAS STERI APPLIED, STRIPS PLACED SUTURES ARE FROM TUES, ATTACT INTACT. NO DRAINAGE NOTED WC - Nurse 2 - General Ulcer CM Notes Start: 07/25/23 13:44 Freq: Status: Active Protocol: Activity Type Activity Date Activity User E-sign Co-sign Detail Recorded Client Recorded Date Recorded By Document 07/25/23 13:55 Desktop 07/25/23 13:56 07/25/23 13:55 Wound Center Nurse 2 -Time 13:56 -Correct Patient Yes -Correct Side, Site, Position Yes -Wound/Ulcer Outcome Not Healed -Wound Comment(s) post op, sutures are intact Pain Scale: 0-10 Numeric Is Patient Pain Free? Yes - Nurse 3 - General Ulcer D/C NN Start: 07/25/23 13:44 Freq: Status: Active Protocol: Activity Type Activity Date Activity User E-sign Co-sign Detail Recorded Client Recorded Date Recorded By Document 07/25/23 14:05 Desktop 07/25/23 14:06 Document 08/08/23 14:39 wound center 08/08/23 14:40 07/25/23 08/08/23 14:05 14:39 Wound Care Center Nurse 3 #2 RT STUMP POST-OP -Ulcer Cleansing Rinsed/ Not Cleansed Irrigated with Saline -Foul Odor after Cleansing No No -Primary Dressing Covered/Secured with Dry Gauze & Dry Gauze,Dry Roll Gauze Gauze & Roll Gauze,Secured with Tape -Other Covering ABD -Wound Comment(s) steri strips are intact Right -Compression Wrap Dexter Wrap Treatment Response Procedure Tolerated Well Pain Scale: 0-10 Numeric Is Patient Pain Free? 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 Leave steri-strips in place as per her orthopedic surgeon's direction. She is reminded to continue to take extra caution with transfers and activity so as not to injure the stump or disrupt the incisions. Have not received any records from her recent surgery. Will again request records from her procedure and also operative culture results. She will return to the office in 2-3 weeks after the steri-strips have fallen off for a wound check.
== END 2023-08-16 23:59 | disposition home or self-care (01) ==
LOC: WC 13:45
PROVIDERS: PCP Family Medicine; Referring Provider Student in an Organized Health Care Education/Training Program; Visit Provider Physician Assistant
DX: T87.89 Other complications of amputation stump (principal); L97.812 Non-pressure chronic ulcer of other part of right lower leg with fat layer exposed; E11.9 Type 2 diabetes mellitus without complications; Y83.5 Amputation of limb(s) as the cause of abnormal reaction of the patient, or of later complication, without mention of misadventure at the time of the procedure
CPT/HCPCS: 99213; G0463

== ENCOUNTER 2023-08-22 13:43 | Outpatient (RCR) | payer MEDICAID, SELFPAY ==
[2023-08-17 01:43] VITALS: BP 154/95; PULSE 91; RESP 18; TEMP 36.3; BMI 18.7
[2023-08-22 13:53] VITALS: BP 140/63; PULSE 93; RESP 16; TEMP 36.5; BMI 18.7
--- NOTE | 2023-08-22 17:50 | PCM.WC.PN ---
History of Present Illness Date of Service: 08/22/23 Chief Complaint: R BKA stump wound History of Wound: Arianna Jerry is a 57 y/o female who presents to the wound healing center today for management of a right BKA stump wound. She is accompanied to the appointment today by her daughter who helps to supplement her history and also helps with her wound care. 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 At that time, they explored and washed out proximally in her thigh as well. Subsequently she initially had wound vac placed prior to secondary closure. She reports that the amputation site did ultimately heal fully and she was able to obtain a prosthetic. She had been doing very well with her prosthetic and getting back to work etc. Unfortunately about 1-2 months ago she developed a wound on her amputation stump due to the prosthetic rubbing in this area. She presented to the [facility] ER on 02/26/23 with concern of infection. She was admitted from 02/26-03/01 for IV antibiotics. Wound cultures were positive for staph aureus, blood cultures were negative. She was evaluated by orthopedics at that time as well. XR and CT scan performed during that admission were negative for signs of osteomyelitis. She was discharged with a course of Bactrim and referral here. At home, they have been doing daily dressing changes with iodoform and dry gauze dressing. Her daughter reports it has made significant improvement since her hospital stay. Subjective Subjective Arianna returns today for follow-up of her R BKA stump wounds. She is accompanied by her daughter as usual. All of the steristrips have fallen off. The wounds appear healed. They have not noticed any drainage. No new wounds. She is scheduled to see [employer] next week for adjustments to her prosthetics. Objective Data Objective Data Vital Signs: Vital Signs Temp Pulse Resp BP O2 Del Method 97.7 F L 93 16 140/63 H Room Air 08/22/23 13:53 08/22/23 13:53 08/22/23 13:53 08/22/23 13:53 08/22/23 13:53 Oxygen Delivery Method Room Air Weight: 96 lb Body Mass Index (BMI) 18.7 Charges/Coding Visit Charges Office Visits / Consults: 08448 OV L3 Est 20min Physical Exam Const alert, oriented x3, no apparent distress and average body habitus General Appearance: cooperative HEENT normocephalic, head/scalp atraumatic, hearing grossly normal bilaterally, external ears normal and external nose normal Eyes EOMs intact bilaterally General Eye: normal appearance of both eyes Resp Effort and Inspection: able to speak in complete sentences; Negative for labored, stridor, retractions, uses accessory muscles or audible wheezes Extremity Extremity Narrative: R BKA Skin Wounds: wounds noted Wound Narrative: R BKA stump incision sites appear well-healed. There are no open areas. The prior wound on the anterior aspect of the stump is also healed. There is no erythema, swelling, drainage. 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 She is cleared to return to work once proper adjustments have been made to her prosthetic device. She has also been cleared by her orthopedic surgeon per her report. She is discharged from the wound healing center today. She will return as needed.
== END 2023-08-22 14:49 | disposition home or self-care (01) ==
LOC: WC 13:43
PROVIDERS: PCP Family Medicine; Referring Provider Student in an Organized Health Care Education/Training Program; Visit Provider Physician Assistant
DX: Z09 Encounter for follow-up examination after completed treatment for conditions other than malignant neoplasm (principal); Z89.511 Acquired absence of right leg below knee; E11.9 Type 2 diabetes mellitus without complications
CPT/HCPCS: 99213; G0463

== ENCOUNTER → 2023-10-09 | Outpatient (CLI) | payer MEDICAID, SELFPAY ==
--- NOTE | 2023-10-09 13:45 | BD_ITS ---
STUDY: DUAL ENERGY X-RAY ABSORPTIOMETRY / DXA REASON FOR EXAM: Female, 58 years old. Z13.820 - Encounter for screening for osteoporosis TECHNIQUE: Bone Mineral Density (BMD) measurements of lumbar spine and bilateral hips were obtained. COMPARISON: None. FINDINGS: Lumbar Spine (L1-L4): g/cm2 (0.780) / T-score (-2.4) / Z-score (-1.2) Findings are suggestive of osteopenia with a high fracture risk. Left Femur Total: g/cm2 (0.640) / T-score (-2.5) / Z-score (-1.7) Left Femoral Neck: g/cm2 (0.502) / T-score (-3.1) / Z-score (-2.0) Right Femur Total: g/cm2 (0.522) / T-score (-3.4) / Z-score (-2.6) Right Femoral Neck: g/cm2 (0.464) / T-score (-3.5) / Z-score (-2.3) BD/Dexa Bone Density Study IMPRESSION: The patient is considered osteoporotic as outlined below according to World Terence Organization (WHO) criteria with a high fracture risk. Reference Information: The T-score is the number of standard deviations above or below the standard which is normal for young adults at their peak bone mineral density. The World Health Organization (WHO) interprets the T-scores as follows: Above -1 Normal bone density Between -1 and -2.5 Osteopenia Equal to / or below -2.5 Osteoporosis As a practical clinical guideline, osteopenia may be graded as follows: Mild -1 through -1.5 Moderate -1.6 through -2.0 Severe -2.1 through -2.4 The Z-score is the number of standard deviations above or below age-matched controls. A Z-score of less than -1.5 would be considered abnormal. References: 1. NIH Osteoporosis and Related Bone Diseases www osteo.org 2. International Society for Clinical Densitometry www iscd.org 3. National Osteoporosis Foundation www nof.org Electronically Signed: Fritz Alston MD at 10:00 EDT ,
== END | disposition home or self-care (01) ==
LOC: OPBD 13:35
PROVIDERS: PCP Family Medicine; Referring Provider Nurse Practitioner Family; Visit Provider Nurse Practitioner Family
DX: Z13.820 Encounter for screening for osteoporosis (principal); M85.88 Other specified disorders of bone density and structure, other site
CPT/HCPCS: 77080

== ENCOUNTER 2024-07-22 07:12 | Inpatient (IN) | payer MEDICAID, SELFPAY ==
[2024-07-22] VITALS (26 sets, daily range): BP systolic 119–178; BP diastolic 59–119; PULSE 76–93; RESP 10–25; TEMP 36.2–36.9; O2SAT 94–100; BMI 18.5; BMI 15.2
--- NOTE | 2024-07-22 07:20 | CT_ITS ---
PROCEDURE: BRAIN/HEAD WITHOUT CONTRAST 07/22/2024 REASON FOR EXAM: TIA SYMPTOMS, RIGHT HAND PARESTHESIAS (TRANSIENT) TECHNIQUE: Head CT without intravenous contrast. Coronal and Sagittal reconstruction series were provided. One or more dose reduction techniques were used (e.g., Automated exposure control, adjustment of the mA and/or kV according to patient size, use of iterative reconstruction technique. RADIATION DOSE SUMMARY: CTDlvol: 44.99 mGy DLP: 745.49 mGycm COMPARISON: None available FINDINGS: No intracranial hemorrhage, mass effect or CT evidence of large vascular territory acute infarct. The ventricles are within limits and midline. Mild volume loss, atrophy. The visualized paranasal sinuses, mastoids and orbits appear within limits. CT/Brain/Head without Contrast IMPRESSION: No intracranial hemorrhage, mass effect or CT evidence of large vascular territ ory acute infarct. Reading Location: [id number]
--- NOTE | 2024-07-22 07:21 | EKG12_ITS ---
Test Reason : NEURO Blood Pressure : */* mmHG Vent. Rate : 85 BPM Atrial Rate : 85 BPM P-R Int : 140 ms QRS Dur : 82 ms QT Int : 328 ms P-R-T Axes : 73 52 -48 degrees QTcB Int : 390 ms Normal sinus rhythm ST & T wave abnormality, consider inferior ischemia ST & T wave abnormality, consider anterolateral ischemia Abnormal ECG Confirmed by Faisal Montesinos ([id number]), editor book JUAN GUZMAN ([id number]) on 07/24/2024 12:21:55 PM Referred By: Confirmed By: Faisal Montesinos
[2024-07-22 07:31] LABS: Absolute Lymphocyte Count 2.13 X10^3/uL (0.83-4.51); Absolute Neutrophil Count 19.3 X10^3/uL (2.0-7.7); Basophil# 0.05 X10^3/uL; Basophil% 0.2 % (0-1); Hematocrit 35.3 % (37-47); Hemoglobin 11.1 g/dL (12.0-15.0); Lymphocyte # 2.13 X10^3/ul (0.83-4.51); Lymphocyte % 9.5 % (19-41); Mean Corp Hgb Conc 31.4 g/dL (32-36); Mean Corpuscular Volume 89.1 fL (81-99); Mean Platelet Vol. 11.3 fl (6.2-12.0); Monocyte# 0.86 X10^3/uL; Monocyte% 3.8 % (0-10); NRBC Flagged by Analyzer 0 % (0-5); Neutrophil # 19.28 X10^3/uL (2.7-7.7); Neutrophil % 85.9 % (47-70); Platelet Count 526 K/mm3 (150-450); RBC Distribution Width CV 14.6 % (11.6-14.6); RBC Distribution Width SD 47.3 fl (35.1-43.9); Red Blood Count 3.96 M/mm3 (4.2-5.4); White Blood Count 22.5 K/mm3 (4.4-11.0)
--- NOTE | 2024-07-22 07:40 | RAD_ITS ---
PROCEDURE: CHEST 1 VIEW (PORTABLE) 07/22/2024 REASON FOR EXAM: WEAKNESS TECHNIQUE: Frontal view of the chest. COMPARISON: None available FINDINGS: The lungs appear clear. The cardiac and mediastinal contours appear within limits. Pulmonary vascularity appears within limits. No pleural effusion seen. Visualized osseous structures appear within limits. RAD/Chest 1 View (Portable) IMPRESSION: No evidence of acute disease. Reading Location: [id number]
--- NOTE | 2024-07-22 07:42 | EX.ED.DYSGE1 ---
HPI History of Present Illness Chief Complaint: Neuro S/Sx Informant: patient and EMS Narrative Narrative: Patient is a 59-year-old female with history of diabetes mellitus, hypertension, osteoporosis and history of necrotizing fasciitis status post right BKA presenting for generalized weakness and concern for stroke. Patient was concern for stroke because last night around 1:30 PM she had some intermittent paresthesias of her right fingers/hand. That is currently resolved. Her daughter notes that her voice/speech was different. At that time her daughter was at work and patient states that she would call her back in the morning and check on her. This morning was still noted to have change in her speech and EMS was called. Patient notes that she has been having intermittent diarrhea and nausea for the past 3 weeks. Denies any associated pain with this. Has been feeling generally weak. Notes over the past 5 days or so she stopped taking her insulin because of the diarrhea and illness. Denies any fever or chills. Denies any urinary symptoms. States she feels very thirsty. No falls reported. Is not on any blood thinners. Is from home. [facility] Medical History (Updated 07/22/24 @ 10:[address] Nani Coleman, DO) Anemia Smoker Cellulitis and abscess of right lower extremity Type 2 diabetes mellitus with hyperglycemia, without long-term current use of insulin Sinus tachycardia seen on hogshead filler Below knee amputation Dysphagia Acid reflux Diabetes Home Medications ?Medication ?Instructions ?Recorded ?Last Taken ?Type albuterol sulfate 90 mcg/actuation 2 puff inhalation Q4H PRN Sob &/Or 10/01/18 Unknown History aerosol inhaler Wheezing dapagliflozin propanediol 10 mg 10 mg PO DAILY blood sugars 09/20/22 02/25/23 History tablet (Farxiga) atorvastatin 40 mg tablet 40 mg PO QHS cholesterol 02/26/23 02/25/23 History cholecalciferol (vitamin D3) 25 25 mcg PO DAILY supplement 02/26/23 02/25/23 History mcg (1,000 unit) tablet ferrous sulfate 325 mg (65 mg 325 mg PO DAILY supplement 02/26/23 02/25/23 History iron) tablet (FeroSul) lisinopril 5 mg tablet 5 mg PO DAILY blood pressure 02/26/23 02/25/23 History blood-glucose meter (True Metrix #1 ea 08/19/23 Unknown Rx Glucose Meter) True Metrix Glucose Test Strip #50 ea 06/30/24 Unknown Rx (blood sugar diagnostic) glipizide 5 mg tablet 5 mg PO BID #60 tabs 06/30/24 Unknown Rx Allergy/AdvReac Type Severity Reaction Status Date / Time No Known Allergies Allergy Verified 05/27/24 10:09 Family History Grandmother Breast cancer Father Heart disease Hypertension Sister Thyroid disorder Aunt Thyroid disorder Other Arthritis CVA (cerebral vascular accident) Kidney disease Myocardial infarction Surgical History History of appendectomy Status post below knee amputation of right lower extremity history EGD with dilatation S/P appendectomy H/O thumb surgery Social History household members: family Smoking Status: Heavy Smoker (>10/day) alcohol intake: never substance use type: does not use what type of physical activity do you participate in: walking ROS ROS ED Constitutional Constitutional ED: Reports other Details: Generalized weakness ; Denies chills or fever(s) Eyes Eyes: Denies change in vision ENT ENT ED: Denies rhinorrhea or sore throat Cardiovascular Cardiovascular: Denies chest pain Respiratory/Chest Respiratory/Chest: Denies cough or dyspnea Gastrointestinal Gastrointestinal: Reports diarrhea and nausea; Denies abdominal pain or vomiting Genitourinary Genitourinary ED: Denies dysuria or urinary frequency Musculoskeletal Musculoskeletal: Denies arthralgias or myalgias Integumentary Denies rash Neurologic Neurologic: Reports paresthesias RUE (Right hand-affecting different fingers at different times per patient) and weakness Psychiatric Psychiatric: Denies anxiety or depression Hematologic/Lymphatic Hematologic/Lymphatic: Denies easy bleeding or easy bruising EXAM Physical Exam Const Vital Signs: 07/22/24 07:14 07/22/24 07:21 07/22/24 08:13 Temperature 97.1 F L Temperature Source Oral Pulse Rate 93 76 Respiratory Rate 16 24 H Respiratory Effort Normal Respiratory Pattern Normal Blood Pressure 125/109 H Blood Pressure Mean 114 Pulse Ox 98 Oxygen Delivery Method Room Air Nasal Cannula Oxygen Flow Rate (L/min) 2 07/22/24 09:00 Temperature Temperature Source Pulse Rate 84 Respiratory Rate 19 H Respiratory Effort Respiratory Pattern Blood Pressure 178/106 H Blood Pressure Mean 130 Pulse Ox 100 Oxygen Delivery Method Nasal Cannula Oxygen Flow Rate (L/min) 2 Positive cachectic and unkempt General Appearance ED: unkempt, cachectic and NAD Nutritional Appearance: cachectic HEENT Reports dry mucous membranes HEENT Narrative: Exceedingly dry mouth presents. Negative for trauma Mouth ED: Yes dry mucous membranes Mouth: dry mucous membranes Eyes PERRL and EOMs intact bilaterally Neck no JVD Neck Narrative: No nuchal rigidity Chest Wall inspection of chest normal Resp normal respiratory effort and clear to auscultation bilaterally Cardio regular rate and regular rhythm GI normal to inspection, nondistended, normoactive bowel sounds and non-tender Auscultation: normoactive bowel sounds Palpation: soft; Negative for tender or guarding Extremity Extremity Narrative: Right BKA present General Extremety ED: Negative for edema General Extremity: Negative for edema Neuro oriented x3 and CN's II-XII intact bilaterally Neuro Narrative: No focal neurologic deficits present. Alert and oriented. Suspect reported change in speech because of how dry her mouth is but no true dysarthria present. Normal strength and sensation in all extremities. NIH equals 0. Sensorium / Orientation: alert Psych mental status grossly normal Appearance: unkempt Skin no rashes or lesions noted Skin Narrative: Approximately 5 cm x 2 cm skin tear to the left hip area. There is a central 3 cm eschar. No associated warmth. Minimal surrounding erythema but no induration. MDM MDM MDM Narrative Medical decision making narrative: Patient is evaluated for generalized weakness and initially given because she thought her speech was slurred. I suspect it is secondary to dehydration based on her physical exam and do not think this is an actual stroke. She has been hyperglycemic and I am much more concerned for infection, HH NK, DKA, electrolyte abnormality or more metabolic process. She is alert and oriented however but generally weak. Workup does show leukocytosis of 22.5 and patient does appear to be significantly hemoconcentrated with platelet count of 526 and hemoglobin 11.1 which are both above her baseline. VBG obtained which does show metabolic acidosis with a pH of 7.26, bicarb of 8 and pCO2 of 8. Her chemistry shows significant hypokalemia with potassium of 2.7, hypochloremia with a chloride of 82, severe hyperglycemia with a glucose of 1162, elevated anion gap of 21, VIJAY with a creatinine of 2.19 (baseline closer to 0.8), bicarb of 30 and actually high magnesium 2.3. Her calculated serum osmolality is 349. Her corrected sodium for hyperglycemia is hyponatremic with a sodium of 150. Patient is given oral and IV potassium as well as a liter of IV fluids and started on maintenance fluid at 125 an hour. She will need potassium replacement prior to starting insulin. When nurses were placed on Peguero they noted that she had a pretty severe yeast infection and patient started on Diflucan. Urinalysis is concerning for UTI and culture sent. Lactate is normal. I do not think patient has sepsis or severe sepsis as her primary cause of her presentation. Case is discussed with hospitalist, Dr. Capellan and will be admitted for further treatment. Patient and daughter are in agreement with this plan of care. Lab Data Attestation: I reviewed the patient's lab results. Labs: Laboratory Results - last 24 hr 07/22/24 07/22/24 07/22/24 07:16 08:09 09:01 WBC 22.5 H RBC 3.96 L Hgb 11.1 L Hct 35.3 L MCV 89.1 MCH 28.0 MCHC 31.4 L RDW Std Deviation 47.3 H RDW Coeff of Emily 14.6 Plt Count 526 H MPV 11.3 Immature Gran % (Auto) 0.600 Neut % (Auto) 85.9 H Lymph % (Auto) 9.5 L Motley % (Auto) 3.8 Eos % (Auto) 0.0 Baso % (Auto) 0.2 Absolute Neuts (auto) 19.3 H Absolute Lymphs (auto) 2.13 Nucleated RBC % 0 Sodium 133 Potassium 2.3 L* Chloride 82 L Carbon Dioxide 30.7 Anion Gap 21 H BUN 51 H Creatinine 2.19 H Estim Creat Clear Calc 19.01 L Est GFR (MDRD) Non-Af 25 L BUN/Creatinine Ratio 23.4 H Glucose 1162 H* Lactic Acid 1.0 Calcium 9.6 Magnesium 2.3 H Total Bilirubin 0.29 AST 77 H ALT 12 Alkaline Phosphatase 129 H Troponin T High Sens 47 H Total Protein 8.2 Albumin 3.6 Globulin 4.6 H Albumin/Globulin Ratio 0.8 L b-Hydroxybutyric mmol/L 0.4 Urine Color Straw Urine Clarity Sl. Cloudy Urine pH 6.0 Ur Specific Collins 1.005 Urine Protein 100 H Urine Glucose (UA) 1000 H Urine Ketones Negative Urine Occult Blood 250 H Urine Nitrite Negative Urine Bilirubin Negative Urine Urobilinogen Normal Ur Leukocyte Esterase 500 H Urine RBC 0-5 SEEN Urine WBC 25-50 SEEN Ur Squamous Epith Cells 0 SEEN Urine Bacteria 2+ Urine Mucus 0 SEEN ABG Data ABG results: ABG 07/22/24 08:21 Specimen Type REYNA Sample Site Not entered VBG pH 7.26 L VBG pO2 176 H VBG HCO3 8 L VBG Total CO2 8 L VBG O2 Sat (Calc) 99 H VBG Base Excess -19 L POC Mix VBG pCO2 Pt Tmp 17.4 L* O2 Delivery Device Not entered Crit Call To/Read Back Yes Blood Gas Notified Whom morris Blood Gas Notified Time 08:22:35 Radiography Chest X-Ray - ED: 1 View, Read by ED Physician, Read by Radiologist and No Acute Disease Diagnostic Testing: Clinical Impression(s) from Imaging Studies Brain CT 07/22/24 07:20 IMPRESSION: No intracranial hemorrhage, mass effect or CT evidence of large vascular territory acute infarct. Reading Location: [facility] Chest X-Ray 07/22/24 07:40 IMPRESSION: No evidence of acute disease. Reading Location: [facility] Rhythm Strip Rhythm Strip: Sinus Rhythm Rate: 85 Ectopy: None EKG Initial EKG: Attestation: I personally reviewed and interpreted this EKG as follows: Interpretation: Sinus Rhythm Comments: Normal sinus rhythm at a rate of 85 bpm Normal axis Normal intervals Diffuse T wave inversions presents which are new compared to prior EKG on 05/31/2022 Management Discussion w/another healthcare provider: Hospitalist Critical Care Time Critical Care Time: Yes Critical care time (excluding procedures): 30-74 minutes (38), Discussing w/Patient &/or Family/Warehouse Handler, Arranging Admission or Transfer and - (Severe electrolyte derangement requiring frequent monitoring, electrolyte and fluid replacement and ICU admission) Discharge Plan Triage Chief Complaint: Neuro S/Sx Other Complaint: Hyperglycemia ED Provider: Nani Coleman Dx/Rx/DC Orders Clinical Impression: Hypokalemia, Noncompliance, High anion gap metabolic acidosis, Hyperosmolar hyperglycemic state (HHS), Leukocytosis, Vaginal yeast infection, Abnormal urinalysis, VIJAY (acute kidney injury), Dehydration Primary Care Provider: Art Herman Disposition Disposition: Acute Care Hospital [facility]
[2024-07-22 07:56] LABS: Magnesium 2.3 mg/dL (1.5-2.2)
[2024-07-22] MEDS: 0.9% Normal Saline (1000mL) 1,000 ML 1000 ML IV (08:04)
[2024-07-22 08:06] LABS: ALB/GLOB Ratio 0.8 RATIO (0.9-2.4); Alanine Aminotransfer ALT/SGPT 12 U/L (<=34); Albumin, Serum 3.6 g/dL (3.5-5.0); Alkaline Phosphatase 129 U/L (35-104); Anion Gap 21 (5-15); BUN 51 mg/dL (4-19); BUN/Creat Ratio 23.4 RATIO (10-20); Calcium,Total 9.6 mg/dL (7.6-11.0); Carbon Dioxide 30.7 mmol/L (21.0-32.0); Chloride 82 mmol/L (98-108); Creatinine, Serum 2.19 mg/dL (0.70-1.20); EST Glomerular Filtration Rate 25 (>60); Estimated Creatinine Clearance 19.01 ml/min (50-250); Globulin 4.6 g/dL (2.2-4.2); Protein, Total 8.2 g/dL (5.9-8.4); Sodium Level 133 mmol/L (133-145); Total Bilirubin 0.29 mg/dL (0.00-1.30)
[2024-07-22 08:07] LABS: Potassium 2.3 mmol/L (3.3-5.1)
[2024-07-22 08:11] LABS: Troponin T High Sensitivity 47 ng/L (<=14)
[2024-07-22 08:16] LABS: BETA-HYDROXYBUTYRATE 0.4 mmol/L (0.0-0.3)
[2024-07-22 08:17] LABS: Glucose 1162 mg/dL (70-99)
[2024-07-22 08:25] LABS: Blood Gas Specimen Type VEN; O2 Delivery Device Not entered; SITE Not entered; VBG BASE EXCESS -19 mmol/L (-1.0-3.5); VBG Bicarbonate 8 mmol/L (22-26); VBG PO2 176 mmHg (25-40); VBG SO2 99 % (50-70); VBG TCO2 8 mmol/L (23-33); VBG pCO2 17.4 mmHg (41-51); VBG pH 7.26 (7.32-7.42)
[2024-07-22 08:57] LABS: AST(SGOT) 77 U/L (<=31)
[2024-07-22] MEDS: 0.9% Normal Saline (1000mL) 1,000 ML 125 ML IV ×2 (09:05→15:41)
[2024-07-22] MEDS: Potassium Chloride 10mEq/100mL 10 MEQ/100 ML IV.SOLN. 100 MEQ IV BOLUS ×2 (09:06→10:52)
[2024-07-22] MEDS: Potassium Chloride Oral Soln 20 MEQ/15 ML UDC PO (09:07)
[2024-07-22 09:10] LABS: Mucous, Urine 0 SEEN /hpf (<or=2+); Squamous Epithelial Cells - UA 0 SEEN /hpf (5-10)
[2024-07-22 09:19] LABS: Color, Urine Straw (Yellow); Glucose, Dipstick 1000 mg/dl (Normal); Ketone-Dipstick Negative (Negative); Leukocyte Esterase-Dipstick 500 /ul (Negative); Nitrite-Dipstick Negative (Negative); Occult Blood-Urine 250 /ul (Negative); Protein-Dipstick 100 mg/dl (Negative); Specific Gravity, Urine 1.005 (1.002-1.030); Urine Bilirubin Dipstick Negative (Negative); Urine Clarity Sl. Cloudy (Clear); Urine Urobilinogen Normal (Normal)
[2024-07-22 09:40] LABS: White Blood Cells 25-50 SEEN /hpf (0-5)
[2024-07-22 09:42] LABS: Bacteria 2+ /hpf (None Seen); Red Blood Cells-Urine 0-5 SEEN /hpf (0-5)
--- NOTE | 2024-07-22 09:52 | PCM.HP.STD ---
HPI - General General Date of Admission: 07/22/24 Date of Service: 07/22/24 Chief Complaint: Generalized weakness HPI Narrative SANJUANITA BECERRA, is a 59 F who presented to the emergency department [facility] on 07/22/2024 with a chief complaint of generalized weakness. There was apparently some concern for stroke because the last night about 1:30 AM she had some intermittent paresthesias in her right hand and fingers. Though symptoms are resolved. Her daughter noted that her voice or speech was different at that time as well but her daughter was at work. This morning her daughter still felt her speech was changed so she called EMS. Patient reported she had intermittent diarrhea and nausea for about 3 weeks. She has not been taking any of her home medications including her insulin. She denies any fever or chills, she denied abdominal pain, she indicated she was extremely thirsty and wanted to drink. She follows with endocrinology as an outpatient with her last visit being on 05/27/2024. It appears there is a long history of noncompliance. Vital signs at the time of presentation showed a temperature of 97.1, heart rate 93, respiratory rate was 16, blood pressure was 125/109 and pulse ox was 98% on room air. CBC showed a white count of 22.5 with a hemoglobin of 11.1 and thrombocytosis with a platelet count of 526,000 CBC appears to be markedly hemoconcentrated compared to her baseline. A VBG was obtained and her pH was 7.26. Her chemistry showed marked hypokalemia with potassium of 2.3 she had significant VIJAY with serum creatinine of 2.19 and a BUN of 51. Anion gap was elevated at 21 however her bicarb was normal at 30.7 I suspect this is all contraction related and her anion gap is elevated related to her VIJAY. Serum creatinine baseline is between 0.8 and 1.0. Serum glucose on presentation was 1162. Serum osmolality was elevated at 356. Lactic acid was normal at 1. Magnesium was normal at 2.3 however phosphorus was found to be 0.7. Liver functions were fairly unremarkable. Initial troponin was 47 with a delta of 40 and patient denying any chest pain I suspect this is elevated due to her VIJAY. Beta hydroxybutyrate was normal. Her UA is suggestive of infection. CT of brain was unremarkable for any acute findings. Chest x-ray is unremarkable. Patient was aggressively hydrated and treated for hypokalemia in the emergency department and given subcu insulin. [facility] Medical History Anemia Smoker Cellulitis and abscess of right lower extremity Type 2 diabetes mellitus with hyperglycemia, without long-term current use of insulin Sinus tachycardia seen on search specialist Below knee amputation Dysphagia Acid reflux Diabetes Home Medications ?Medication ?Instructions ?Recorded ?Last Taken ?Type albuterol sulfate 90 mcg/actuation 2 puff inhalation Q4H PRN Sob &/Or 10/01/18 Unknown History aerosol inhaler Wheezing dapagliflozin propanediol 10 mg 10 mg PO DAILY blood sugars 09/20/22 02/25/23 History tablet (Farxiga) atorvastatin 40 mg tablet 40 mg PO QHS cholesterol 02/26/23 02/25/23 History cholecalciferol (vitamin D3) 25 25 mcg PO DAILY supplement 02/26/23 02/25/23 History mcg (1,000 unit) tablet ferrous sulfate 325 mg (65 mg 325 mg PO DAILY supplement 02/26/23 02/25/23 History iron) tablet (FeroSul) lisinopril 5 mg tablet 5 mg PO DAILY blood pressure 02/26/23 02/25/23 History blood-glucose meter (True Metrix #1 ea 08/19/23 Unknown Rx Glucose Meter) True Metrix Glucose Test Strip #50 ea 06/30/24 Unknown Rx (blood sugar diagnostic) glipizide 5 mg tablet 5 mg PO BID #60 tabs 06/30/24 Unknown Rx Allergy/AdvReac Type Severity Reaction Status Date / Time No Known Allergies Allergy Verified 05/27/24 10:09 Family History Grandmother Breast cancer Father Heart disease Hypertension Sister Thyroid disorder Aunt Thyroid disorder Other Arthritis CVA (cerebral vascular accident) Kidney disease Myocardial infarction Surgical History History of appendectomy Status post below knee amputation of right lower extremity history EGD with dilatation S/P appendectomy H/O thumb surgery Social History household members: family Smoking Status: Heavy Smoker (>10/day) alcohol intake: never substance use type: does not use what type of physical activity do you participate in: walking ROS Constitutional Constitutional: Reports change in weight and weakness; Denies anorexia, chills, fatigue, fever(s), malaise, night sweats or other Eyes Eyes: Denies blurry vision, change in eye color, change in vision, discharge from eye(s), double vision, erythema, eye pain, loss of vision or other ENT HEENT: Denies abnormal hearing, dysphagia, ear pain, epistaxis, headache(s), hearing loss, nasal congestion, nasal discharge, post nasal drip, sinus pressure, sore throat or other Cardiovascular Cardiovascular: Denies chest pain, claudication, dyspnea on exertion, edema, lightheadedness, orthopnea, palpitations, paroxysmal nocturnal dyspnea, rapid heart rate, syncope or other Respiratory/Chest Respiratory/Chest: Denies cough, dyspnea, excessive phlegm production, hemoptysis, productive cough, shortness of breath at rest, shortness of breath with exertion, wheezing or other Gastrointestinal Gastrointestinal: Reports diarrhea, nausea and vomiting; Denies abdominal pain, coffee ground emesis, constipation, dyspepsia, hematemesis, hematochezia, loose stools, melena or other Genitourinary Genitourinary: Reports urinary frequency; Denies burning urination, difficulty urinating, dysuria, hematuria, nocturia, urinary hesitancy, urinary incontinence, urinary urgency or other Musculoskeletal Musculoskeletal: Denies arthralgias, back pain, joint pain, joint stiffness, joint swelling, myalgias, neck pain or other Neurologic Neurologic: Denies abnormal gait, abnormal speech, confusion, disequilibrium, dizziness, focal weakness, headache(s), numbness, paresthesias, seizure-like activity, seizures, syncope, tingling, tremor(s) or other Psychiatric Psychiatric: Denies anxiety, depression, homicidal ideation, suicidal ideation or other Endocrine Endocrinology: Reports polydipsia and polyuria; Denies change in body appearance, cold intolerance, excessive sweating, heat intolerance or other Hematologic/Lymphatic Hematologic/Lymphatic: Denies anemia, easy bleeding, easy bruising, lymphadenopathy or other Allergic/Immunologic Allergic/Immunologic: Denies rhinitis, hives, eczemia, asthma or other Vital Signs Vital Signs Vital Signs: 07/22/24 07:14 07/22/24 07:21 07/22/24 08:13 Temperature 97.1 F L Temperature Source Oral Pulse Rate 93 76 Respiratory Rate 16 24 H Respiratory Effort Normal Respiratory Pattern Normal Blood Pressure 125/109 H Blood Pressure Mean 114 Pulse Ox 98 Oxygen Delivery Method Room Air Nasal Cannula Oxygen Flow Rate (L/min) 2 07/22/24 09:00 Temperature Temperature Source Pulse Rate 84 Respiratory Rate 19 H Respiratory Effort Respiratory Pattern Blood Pressure 178/106 H Blood Pressure Mean 130 Pulse Ox 100 Oxygen Delivery Method Nasal Cannula Oxygen Flow Rate (L/min) 2 Weight Weight: 43 kg Body Mass Index (BMI) 18.5 Physical Exam Const alert, oriented x3 and no apparent distress; Negative for average body habitus, healthy appearing or well nourished Constitutional Narrative: Cachectic appearing middle-aged, white female who appears much older than stated age, lying in bed, appears comfortable, does not appear toxic General Appearance: cooperative HEENT normocephalic, head/scalp atraumatic and moist oral mucous membranes HEENT Narrative: Edentulous, Mallampati is 1, no thrush Eyes EOMs intact bilaterally and conjunctivae normal Eyes Narrative: No scleral icterus Neck supple Neck Narrative: Trachea midline, mild thyroid enlargement without any nodularity identified Resp normal respiratory effort, no retractions, no use of accessory muscles and clear to auscultation bilaterally Resp Narrative: Diminished but clear Auscultation: Negative for rales, rhonchi or wheezes Cardio regular rate, regular rhythm, S1 normal heart sound, S2 normal heart sound, no murmurs, no rub, no gallops and no clicks GI normal to inspection, nondistended, normoactive bowel sounds, soft to palpation and non-tender GI Narrative: Scaphoid abdomen Extremity no clubbing, cyanosis or edema Extremity Narrative: Decreased lean muscle mass, right lower extremity has BKA Neuro CN's II-XII intact bilaterally, moves all extremities and no focal motor deficits Neuro Narrative: Decree sensation left distal lower extremity Speech: speech normal Psych Psych Narrative: Patient was somewhat of flight of ideas Mood & Affect: anxious Results Lab / Micro Data 07/22/24 07:16 07/22/24 13:55 Labs: Laboratory Results - last 24 hr 07/22/24 07:16: WBC 22.5 H, RBC 3.96 L, Hgb 11.1 L, Hct 35.3 L, MCV 89.1, MCH 28.0, MCHC 31.4 L, RDW Std Deviation 47.3 H, RDW Coeff of Emily 14.6, Plt Count 526 H, MPV 11.3, Immature Gran % (Auto) 0.600, Neut % (Auto) 85.9 H, Lymph % (Auto) 9.5 L, [place] % (Auto) 3.8, Eos % (Auto) 0.0, Baso % (Auto) 0.2, Absolute Neuts (auto) 19.3 H, Absolute Lymphs (auto) 2.13, Nucleated RBC % 0, Sodium 133, Potassium 2.3 L*, Chloride 82 L, Carbon Dioxide 30.7, Anion Gap 21 H, BUN 51 H, Creatinine 2.19 H, Estim Creat Clear Calc 19.01 L, Est GFR (MDRD) Non-Af 25 L, BUN/Creatinine Ratio 23.4 H, Glucose 1162 H*, Calcium 9.6, Magnesium 2.3 H, Total Bilirubin 0.29, AST 77 H, ALT 12, Alkaline Phosphatase 129 H, Troponin T High Sens 47 H, Total Protein 8.2, Albumin 3.6, Globulin 4.6 H, Albumin/Globulin Ratio 0.8 L, b-Hydroxybutyric mmol/L 0.4 07/22/24 08:09: Lactic Acid 1.0 07/22/24 09:01: Urine Color Straw, Urine Clarity Sl. Cloudy, Urine pH 6.0, Ur Specific [place] 1.005, Urine Protein 100 H, Urine Glucose (UA) 1000 H, Urine Ketones Negative, Urine Occult Blood 250 H, Urine Nitrite Negative, Urine Bilirubin Negative, Urine Urobilinogen Normal, Ur Leukocyte Esterase 500 H, Urine RBC 0-5 SEEN, Urine WBC 25-50 SEEN, Ur Squamous Epith Cells 0 SEEN, Urine Bacteria 2+, Urine Mucus 0 SEEN ABG Data ABG results: ABG 07/22/24 08:21 Specimen Type REYNA Sample Site Not entered VBG pH 7.26 L VBG pO2 176 H VBG HCO3 8 L VBG Total CO2 8 L VBG O2 Sat (Calc) 99 H VBG Base Excess -19 L POC Mix VBG pCO2 Pt Tmp 17.4 L* O2 Delivery Device Not entered Crit Call To/Read Back Yes Blood Gas Notified Whom [facility] Blood Gas Notified Time 08:22:35 Rhythm Strip Rhythm Strip: Sinus Rhythm Rate: 85 Ectopy: None Imaging Radiology Impression Brain CT 07/22/24 07:20 IMPRESSION: No intracranial hemorrhage, mass effect or CT evidence of large vascular territory acute infarct. Reading Location: [facility] Chest X-Ray 07/22/24 07:40 IMPRESSION: No evidence of acute disease. Reading Location: [facility] Assessment & Plan Assessment/Plan (1) Hyperosmolar hyperglycemic state (HHS): (2) Dehydration: (3) VIJAY (acute kidney injury): (4) Abnormal urinalysis: (5) Vaginal yeast infection: (6) Leukocytosis: (7) Thrombocytosis: (8) High anion gap metabolic acidosis: (9) Uncontrolled hypertension: (10) Noncompliance: (11) Diarrhea: PLAN: Plan HHS with a history of DM-2 and noncompliance -Insulin drip at 0.05 -Aggressive IV fluids - Serial BMPs, magnesium, and phosphorus - Will transition off of drip once blood sugars stabilize and trend down below 250 - Will likely need subcu insulin - Will need discussed with endocrinology as she does follow with them at baseline - N.p.o. for now will likely start diet tomorrow VIJAY secondary to severe dehydration - Suspect renal function should improve with aggressive fluids - Serial lab as noted above - Avoid nephrotoxins - Hold home lisinopril Diarrhea - Check stool studies - May be osmotic diarrhea from hyperglycemia Thrombocytosis - Highly suspect related to volume contraction - Repeat lab in a.m. Chronic anemia - Hemoglobin higher than typical however patient hemoconcentrated - Suspect precipitous drop with hydration - Repeat lab in a.m. - no signs of bleeding Anion gap metabolic acidosis - pH is slightly low on VBG - Suspect related to VIJAY - No signs of DKA as beta hydroxybutyrate is normal - Trend with serial BMPs should clear quite quickly with improvement in renal function Vaginal yeast infection - Patient was given 150 mg of Diflucan in the emergency department - this should complete treatment next-monitor clinically Leukocytosis - Cultures obtained - Abnormal UA so we will start ceftriaxone for suspected UTI and await cultures - Will trend - Suspect marked elevation related to hemoconcentration Abnormal UA - Ceftriaxone for now - Culture pending DM-2 uncontrolled - Hemoglobin A1c is greater than 13 - Documented noncompliance from endocrinology notes - Will likely need insulin at discharge but will talk to endocrinology tomorrow for advice Uncontrolled hypertension/hyperlipidemia - Hold lisinopril - As needed hydralazine for now and will trend - Reevaluate needs for scheduled antihypertensives over the next 24 hours - Continue home atorvastatin History of right lower extremity BKA - Complication related to her diabetes - Stable Severe malnutrition - Dietitian consultation - Will need supplements once p.o. intake can be initiated Tobacco abuse - Recommend cessation - Patient denies need for nicotine replacement therapy DVT prophylaxis - Subcu heparin twice daily CODE STATUS - Full code as verified at the time of admission Charges/Coding Visit Charges Inpatient E&M: 05086 Init Hosp L3
--- NOTE | 2024-07-22 10:44 | ED.RN ---
Report called to ICU and given to [place]
[2024-07-22] MEDS: 0.9% Normal Saline (1000mL) 1,000 ML 999 ML IV ×2 (11:27→12:51)
[2024-07-22] MEDS: Insulin Lispro 100 UNIT in 0.9% Normal Saline (100mL Bag) 99 ML CONT INF (11:36)
[2024-07-22] MEDS: Ceftriaxone 1 GM/50 ML BAG IV (11:41)
[2024-07-22 12:06] LABS: Hemoglobin A1c 13.7 % (<=5.6)
[2024-07-22] MEDS: Ferrous Sulfate 325 MG Tablet PO (12:15)
[2024-07-22] MEDS: Cholecalciferol (VIT D3) 25 MCG TABLET (1,000 UNITS) PO (12:15)
[2024-07-22] MEDS: Heparin Injection (Vial) 5,000 UNIT/ML VIAL 5000 UNIT SC ×2 (12:15→22:02)
[2024-07-22 12:33] LABS: Bedside Glucose > 500 mg/dL (74-106)
[2024-07-22 12:33] LABS: Troponin T High Sens 4 HR 40 ng/L (<=14)
[2024-07-22] MEDS: FLUCONAZOLE 150 MG TABLET PO (12:47)
[2024-07-22] MEDS: Potassium Chloride Oral Soln 20 MEQ/15 ML UDC 40 MEQ PO (12:47)
[2024-07-22 13:16] LABS: Bedside Glucose > 500 mg/dL (74-106)
[2024-07-22 13:19] LABS: Osmolality, Serum 356 mOsm/KG (275-295)
[2024-07-22 14:19] LABS: Glucose 747 mg/dL (70-99)
[2024-07-22 14:57] LABS: Anion Gap 10 (5-15); BUN 41 mg/dL (4-19); BUN/Creat Ratio 25.5 RATIO (10-20); Calcium,Total 8.2 mg/dL (7.6-11.0); Carbon Dioxide 28.8 mmol/L (21.0-32.0); Chloride 104 mmol/L (98-108); Creatinine, Serum 1.61 mg/dL (0.70-1.20); EST Glomerular Filtration Rate 37 (>60); Estimated Creatinine Clearance 21.16 ml/min (50-250); Glucose 629 mg/dL (70-99); Magnesium 1.7 mg/dL (1.5-2.2); Phosphorus 0.7 mg/dL (2.7-4.5); Potassium 2.8 mmol/L (3.3-5.1); Sodium Level 143 mmol/L (133-145)
[2024-07-22 15:19] LABS: Bedside Glucose > 500 mg/dL (74-106)
[2024-07-22] MEDS: Potassium Phosphate 40 MM in 0.9% Normal Saline (500mL Bag) 500 ML 62.5 MM IV (15:49)
[2024-07-22 16:13] LABS: Bedside Glucose 475 mg/dL (74-106)
[2024-07-22 17:34] LABS: Bedside Glucose 481 mg/dL (74-106)
[2024-07-22 18:21] LABS: Bedside Glucose 406 mg/dL (74-106)
[2024-07-22 19:03] LABS: Magnesium 1.6 mg/dL (1.5-2.2); Phosphorus 1.2 mg/dL (2.7-4.5)
[2024-07-22 19:13] LABS: Anion Gap 10 (5-15); BUN 36 mg/dL (4-19); BUN/Creat Ratio 24.8 RATIO (10-20); Calcium,Total 7.8 mg/dL (7.6-11.0); Chloride 109 mmol/L (98-108); Creatinine, Serum 1.47 mg/dL (0.70-1.20); EST Glomerular Filtration Rate 41 (>60); Estimated Creatinine Clearance 23.18 ml/min (50-250); Glucose 475 mg/dL (70-99); Potassium 2.8 mmol/L (3.3-5.1); Sodium Level 147 mmol/L (133-145)
--- NOTE | 2024-07-22 19:32 | CASEMGMT ---
Care Management Face to Face with patient for initial transition planning/care coordination assessment in the ED.? This engineering technical writer introduced self and role at [facility]. Patient alert and oriented. Patient willing to participate in assessment and is able to answer all questions appropriately.? Care providers, pharmacy, and demographics verified. Admitting Diagnosis: ?VIJAY Other diagnosis history: ?anemia, type 2 diabetes, below knee amputation, dysphagia PCP: ?[facility] Specialists: unable to list specific physician, sees electric deicer inspector, international editorial producer, systems management consultant Preferred Pharmacy: [facility] Insurance: ?In[employer]??? Prescription Benefit: yes Living Will/HPOA: non completed LNOK: Living Arrangements: ?patient lives with her , daughter and son in a duplex.? Patient stays on one floor, uses a bedside commode, sink baths.? Patient completes most of her ADLS and daughter helps when needed.?? Daughter and son complete all IADLs. Transportation: ?daughter states they have friends who transport when needed DME: ?bedside commode, walker, wheelchair, prothesis HHC: ?none, daughter is SAFETY AND SKILL BASED PAY MANAGER and states she helps when needed SNF/Rehab: [facility] Resources: ?none Behavioral Health History: denies Patient goals: Patient wishes to discharge home, denies need for home health care at this time. Patient denies any further needs or concerns at this time. Disposition Plan: admission to acute; RN CM/SW to follow for discharge planning needs that may arise Isa Jacobs, GENERAL MANAGER IN TRAINING, MANAGER OF TAX
[2024-07-22 20:31] LABS: Bedside Glucose 303 mg/dL (74-106)
[2024-07-22 20:31] LABS: Bedside Glucose 423 mg/dL (74-106)
[2024-07-22 21:35] LABS: Bedside Glucose 293 mg/dL (74-106)
[2024-07-22] MEDS: Atorvastatin Calcium 40 MG Tablet PO (22:03)
[2024-07-22 22:44] LABS: Anion Gap 9 (5-15); BUN 33 mg/dL (4-19); BUN/Creat Ratio 23.6 RATIO (10-20); Calcium,Total 7.6 mg/dL (7.6-11.0); Carbon Dioxide 27.5 mmol/L (21.0-32.0); Chloride 114 mmol/L (98-108); Creatinine, Serum 1.39 mg/dL (0.70-1.20); EST Glomerular Filtration Rate 44 (>60); Estimated Creatinine Clearance 24.51 ml/min (50-250); Glucose 260 mg/dL (70-99); Magnesium 1.7 mg/dL (1.5-2.2); Phosphorus 3.5 mg/dL (2.7-4.5); Potassium 3.3 mmol/L (3.3-5.1); Sodium Level 151 mmol/L (133-145)
[2024-07-22] MEDS: KCL 20MEQ in D5.45NS 20 MEQ/1,000 ML IV.SOLN. 150 MEQ IV (22:57)
[2024-07-22 23:31] LABS: Bedside Glucose 239 mg/dL (74-106)
[2024-07-22 23:31] LABS: Bedside Glucose 212 mg/dL (74-106)
[2024-07-23] VITALS (17 sets, daily range): BP systolic 116–167; BP diastolic 61–116; PULSE 73–102; RESP 12–22; TEMP 36.1–36.8; O2SAT 98–100; BMI 16.4
[2024-07-23 00:46] LABS: Bedside Glucose 263 mg/dL (74-106)
[2024-07-23 01:24] LABS: Bedside Glucose 275 mg/dL (74-106)
[2024-07-23 02:36] LABS: Bedside Glucose 223 mg/dL (74-106)
[2024-07-23 03:07] LABS: Anion Gap 9 (5-15); BUN 30 mg/dL (4-19); BUN/Creat Ratio 21.8 RATIO (10-20); Calcium,Total 7.5 mg/dL (7.6-11.0); Carbon Dioxide 26.3 mmol/L (21.0-32.0); Chloride 115 mmol/L (98-108); Creatinine, Serum 1.36 mg/dL (0.70-1.20); EST Glomerular Filtration Rate 45 (>60); Estimated Creatinine Clearance 25.06 ml/min (50-250); Glucose 289 mg/dL (70-99); Sodium Level 150 mmol/L (133-145)
[2024-07-23 03:47] LABS: Bedside Glucose 196 mg/dL (74-106)
[2024-07-23 04:33] LABS: Bedside Glucose 213 mg/dL (74-106)
[2024-07-23 05:24] LABS: Bedside Glucose 179 mg/dL (74-106)
[2024-07-23] MEDS: KCL 20MEQ in D5.45NS 20 MEQ/1,000 ML IV.SOLN. 150 MEQ IV (06:07)
--- NOTE | 2024-07-23 07:04 | PN.HOSP_ITS ---
Reason for Visit Reason for Visit: Generalized weakness Subjective Subjective Patient states she is much better. Apologizes for having to come in due to being sick. Told her that that is why we are here to help take care of her. We were able to get her off an insulin drip and start a diet and she is pleased about this. She is drinking water. States she still feels dry. Objective Data Objective Data Vital Signs: Vital Signs Temp Pulse Resp BP Pulse Ox O2 Del Method O2 Flow Rate 96.9 F L 75 14 143/67 H 100 Room Air 2 07/23/24 04:00 07/23/24 05:00 07/23/24 05:00 07/23/24 05:00 07/23/24 05:00 07/23/24 05:00 07/22/24 10:00 Oxygen Flow Rate (L/min) 2 Oxygen Delivery Method Room Air Weight: 37.9 kg Body Mass Index (BMI) 16.4 Intake & Output: Intake and Output for Last 24 Hours 07/21/24 07/22/24 07/23/24 23:59 23:59 23:59 Intake Total 4202.02 / 4202.52 535.9033 / 535.9033 Output Total 250 / 250 Balance 3952.02 / 3952.52 535.9033 / 535.9033 Lab / Micro Data 07/23/24 06:47 07/23/24 06:47 Labs: Laboratory Results - last 24 hr 07/22/24 07:16: WBC 22.5 H, RBC 3.96 L, Hgb 11.1 L, Hct 35.3 L, MCV 89.1, MCH 28.0, MCHC 31.4 L, RDW Std Deviation 47.3 H, RDW Coeff of Emily 14.6, Plt Count 526 H, MPV 11.3, Immature Gran % (Auto) 0.600, Neut % (Auto) 85.9 H, Lymph % (Auto) 9.5 L, Real % (Auto) 3.8, Eos % (Auto) 0.0, Baso % (Auto) 0.2, Absolute Neuts (auto) 19.3 H, Absolute Lymphs (auto) 2.13, Nucleated RBC % 0, Sodium 133, Potassium 2.3 L*, Chloride 82 L, Carbon Dioxide 30.7, Anion Gap 21 H, BUN 51 H, Creatinine 2.19 H, Estim Creat Clear Calc 19.01 L, Est GFR (MDRD) Non-Af 25 L, B UN/Creatinine Ratio 23.4 H, Glucose 1162 H*, Calcium 9.6, Magnesium 2.3 H, Total Bilirubin 0.29, AST 77 H, ALT 12, Alkaline Phosphatase 129 H, Troponin T High Sens 47 H, Total Protein 8.2, Albumin 3.6, Globulin 4.6 H, Albumin/Globulin Ratio 0.8 L, b-Hydroxybutyric mmol/L 0.4 07/22/24 08:09: Lactic Acid 1.0 07/22/24 08:30: Serum Osmolality 356 H 07/22/24 09:01: Urine Color Straw, Urine Clarity Sl. Cloudy, Urine pH 6.0, Ur Specific Gordon 1.005, Urine Protein 100 H, Urine Glucose (UA) 1000 H, Urine Ketones Negative, Urine Occult Blood 250 H, Urine Nitrite Negative, Urine Bilirubin Negative, Urine Urobilinogen Normal, Ur Leukocyte Esterase 500 H, Urine RBC 0-5 SEEN, Urine WBC 25-50 SEEN, Ur Squamous Epith Cells 0 SEEN, Urine Bacteria 2+, Urine Mucus 0 SEEN 07/22/24 11:35: Hemoglobin A1c 13.7 H, Troponin T Hi Sens 4Hr 40 H 07/22/24 12:13: POC Glucose > 500 H* 07/22/24 12:55: Glucose 747 H* 07/22/24 12:58: POC Glucose > 500 H* 07/22/24 13:55: Sodium 143, Potassium 2.8 L, Chloride 104, Carbon Dioxide 28.8, Anion Gap 10, BUN 41 H, Creatinine 1.61 H, Estim Creat Clear Calc 21.16 L, Est GFR (MDRD) Non-Af 37 L, BUN/Creatinine Ratio 25.5 H, Glucose 629 H*, Calcium 8.2, Phosphorus 0.7 L*, Magnesium 1.7 07/22/24 14:56: POC Glucose > 500 H* 07/22/24 15:52: POC Glucose 475 H* 07/22/24 17:02: POC Glucose 481 H* 07/22/24 17:59: POC Glucose 406 H 07/22/24 18:15: Sodium 147 H, Potassium 2.8 L, Chloride 109 H, Carbon Dioxide 28.0, Anion Gap 10, BUN 36 H, Creatinine 1.47 H, Estim Creat Clear Calc 23.18 L, Est GFR (MDRD) Non-Af 41 L, BUN/Creatinine Ratio 24.8 H, Glucose 475 H*, Calcium 7.8, Phosphorus 1.2 L*, Magnesium 1.6 07/22/24 19:07: POC Glucose 423 H 07/22/24 20:06: POC Glucose 303 H 07/22/24 21:01: POC Glucose 293 H 07/22/24 22:00: Sodium 151 H, Potassium 3.3, Chloride 114 H, Carbon Dioxide 27.5, Anion Gap 9, BUN 33 H, Creatinine 1.39 H, Estim Creat Clear Calc 24.51 L, Est GFR (MDRD) Non-Af 44 L, BUN/Creatinine Ratio 23.6 H, Glucose 260 H, Calcium 7.6, Phosphorus 3.5, Magnesium 1.7 07/22/24 22:01: POC Glucose 239 H 07/22/24 23:02: POC Glucose 212 H 07/23/24 00:06: POC Glucose 263 H 07/23/24 00:58: POC Glucose 275 H 07/23/24 02:16: POC Glucose 223 H 07/23/24 02:38: Sodium 150 H, Potassium 3.0 L, Chloride 115 H, Carbon Dioxide 26.3, Anion Gap 9, BUN 30 H, Creatinine 1.36 H, Estim Creat Clear Calc 25.06 L, Est GFR (MDRD) Non-Af 45 L, BUN/Creatinine Ratio 21.8 H, Glucose 289 H, Calcium 7.5 L 07/23/24 03:27: POC Glucose 196 H 07/23/24 04:12: POC Glucose 213 H 07/23/24 05:05: POC Glucose 179 H ABG Data ABG results: ABG 07/22/24 08:21 Specimen Type REYNA Sample Site Not entered VBG pH 7.26 L VBG pO2 176 H VBG HCO3 8 L VBG Total CO2 8 L VBG O2 Sat (Calc) 99 H VBG Base Excess -19 L POC Mix VBG pCO2 Pt Tmp 17.4 L* O2 Delivery Device Not entered Crit Call To/Read Back Yes Blood Gas Notified Whom [facility] Blood Gas Notified Time 08:22:35 Radiography Diagnostic Testing: Radiology Impression Brain CT 07/22/24 07:20 IMPRESSION: No intracranial hemorrhage, mass effect or CT evidence of large vascular territory acute infarct. Reading Location: [facility] Chest X-Ray 07/22/24 07:40 IMPRESSION: No evidence of acute disease. Reading Location: [facility] Rhythm Strip Rhythm Strip: Sinus Rhythm Rate: 85 Ectopy: None Physical Exam Const alert, oriented x3 and no apparent distress; Negative for average body habitus, healthy appearing or well nourished Constitutional Narrative: Cachectic appearing middle-aged, white female sitting up in bed drinking water and watching television, appears comfortable, does not look toxic General Appearance: cooperative HEENT normocephalic, head/scalp atraumatic and moist oral mucous membranes HEENT Narrative: Edentulous, Mallampati is 1-2, no thrush Eyes EOMs intact bilaterally Eyes Narrative: Mild conjunctiva pallor bilaterally, no scleral icterus Neck supple Neck Narrative: Trachea midline Resp normal respiratory effort, no retractions, no use of accessory muscles and clear to auscultation bilaterally Resp Narrative: Diminished but clear Auscultation: Negative for rales, rhonchi or wheezes Cardio regular rate, regular rhythm, S1 normal heart sound, S2 normal heart sound, no murmurs, no rub, no gallops and no clicks GI normal to inspection, nondistended, normoactive bowel sounds, soft to palpation and non-tender GI Narrative: Scaphoid abdomen Extremity no clubbing, cyanosis or edema Extremity Narrative: Decreased lean muscle mass, right lower extremity has BKA Neuro oriented x3, moves all extremities and no focal motor deficits Speech: speech normal Psych affect normal Psych Narrative: Appreciated of care, eye contact is good, patient much more calm today Assessment & Plan Assessment/Plan (1) Hyperosmolar hyperglycemic state (HHS): (2) Dehydration: (3) VIJAY (acute kidney injury): (4) Abnormal urinalysis: (5) Vaginal yeast infection: (6) Leukocytosis: (7) Thrombocytosis: (8) High anion gap metabolic acidosis: (9) Uncontrolled hypertension: (10) Noncompliance: (11) Diarrhea: PLAN: Plan HHS with a history of DM-2 and noncompliance - HHS has resolved - Discontinue insulin drip - Start subcu insulin with 20 units of basal insulin daily - Start lispro 10 units 3 times daily - SSI - Will continue 2 more liters of IV fluids - Start carb controlled diet - Dietitian consultation - Nursing to instruct patient in insulin pen use - Continue to hold home oral medications patient was noncompliant VIJAY secondary to severe dehydration -Resolving - Down to 1.3 today - will give 2 more liters of IV fluid as she still does appear to be clinically dry - Avoid nephrotoxins -Okay to restart lisinopril and monitor renal function closely Hypokalemia - Continue with aggressive replacement - Stop IV fluids with potassium - Give 60 p.o. and recheck Hypernatremia/hyperchloremia - Secondary to IV fluids - Transition to half-normal with 2 more liters and then discontinue IV fluids Diarrhea -Stool studies have been collected and pending - May be osmotic diarrhea from hyperglycemia - Continue to monitor stool output - Patient with only 2 documented bowel movements today so far - Could consider Imodium if stool studies are negative Leukocytosis - White count remains elevated however has trended down - Still studies in progress - Continue to trend - Patient is on antibiotics for suspected UTI and was given Diflucan for vaginal yeast infection Thrombocytosis -Resolved - Likely related to hemoconcentration Chronic anemia -Hemoglobin appears to be back to her baseline - Repeat lab in a.m. - no signs of bleeding Anion gap metabolic acidosis -Resolved Vaginal yeast infection - Patient was given 150 mg of Diflucan in the emergency department - this should complete treatment next-monitor clinically Leukocytosis - Cultures obtained - Abnormal UA so we will start ceftriaxone for suspected UTI and await cultures - Will trend - Suspect marked elevation related to hemoconcentration Abnormal UA - Ceftriaxone for now - Culture remains pending DM-2 uncontrolled - Hemoglobin A1c is greater than 13 - Documented noncompliance from endocrinology notes -Insulin started as noted above Uncontrolled hypertension/hyperlipidemia -Restart lisinopril 20 mg - As needed hydralazine for systolic blood pressure greater than 160 - Continue home atorvastatin History of right lower extremity BKA - Complication related to her diabetes - Stable Severe malnutrition - Dietitian following - Glucerna ordered 4 times daily - Patient also has protein supplementation with Jayy Tobacco abuse - Recommend cessation - Patient denies need for nicotine replacement therapy DVT prophylaxis - Subcu heparin twice daily CODE STATUS - Full code as verified at the time of admission Charges/Coding Visit Charges Inpatient E&M: 61564 Subs Hosp L3
[2024-07-23 07:05] LABS: Absolute Lymphocyte Count 1.93 X10^3/uL (0.83-4.51); Absolute Neutrophil Count 13.7 X10^3/uL (2.0-7.7); Basophil# 0.05 X10^3/uL; Basophil% 0.3 % (0-1); Eosinophil# 0.09 X10^3/uL; Eosinophils% 0.5 % (0-5); Hematocrit 24.1 % (37-47); Lymphocyte # 1.93 X10^3/ul (0.83-4.51); Lymphocyte % 11.5 % (19-41); Mean Corp Hgb Conc 33.2 g/dL (32-36); Mean Corpuscular Hgb 28.2 pg (27.0-32.0); Mean Corpuscular Volume 84.9 fL (81-99); Mean Platelet Vol. 10.5 fl (6.2-12.0); Monocyte# 0.85 X10^3/uL; Monocyte% 5.1 % (0-10); NRBC Flagged by Analyzer 0 % (0-5); Neutrophil # 13.72 X10^3/uL (2.7-7.7); Neutrophil % 81.9 % (47-70); Platelet Count 361 K/mm3 (150-450); RBC Distribution Width CV 14.3 % (11.6-14.6); RBC Distribution Width SD 44.4 fl (35.1-43.9); Red Blood Count 2.84 M/mm3 (4.2-5.4); White Blood Count 16.8 K/mm3 (4.4-11.0)
[2024-07-23 07:17] LABS: Bedside Glucose 106 mg/dL (74-106)
[2024-07-23] MEDS: 0.45% Normal Saline 1,000 ML 150 ML IV ×2 (08:07→15:03)
[2024-07-23] MEDS: Insulin Glargine-YFGN 100 UNIT/ML Pen 20 UNIT SC (08:10)
[2024-07-23] MEDS: Insulin Lispro 100 UNIT/ML INSULN.PEN 10 UNIT SC ×3 (08:13→15:56)
[2024-07-23 08:25] LABS: ALB/GLOB Ratio 0.9 RATIO (0.9-2.4); AST(SGOT) 43 U/L (<=31); Alanine Aminotransfer ALT/SGPT 7 U/L (<=34); Albumin, Serum 2.6 g/dL (3.5-5.0); Alkaline Phosphatase 79 U/L (35-104); Anion Gap 12 (5-15); BUN 28 mg/dL (4-19); BUN/Creat Ratio 21.2 RATIO (10-20); Calcium,Total 7.8 mg/dL (7.6-11.0); Carbon Dioxide 24.4 mmol/L (21.0-32.0); Chloride 116 mmol/L (98-108); EST Glomerular Filtration Rate 48 (>60); Estimated Creatinine Clearance 28.22 ml/min (50-250); Glucose 106 mg/dL (70-99); Potassium 2.8 mmol/L (3.3-5.1); Protein, Total 5.6 g/dL (5.9-8.4); Sodium Level 152 mmol/L (133-145); Total Bilirubin 0.16 mg/dL (0.00-1.30)
[2024-07-23 08:33] LABS: Bedside Glucose 126 mg/dL (74-106)
[2024-07-23] MEDS: Lisinopril 10 MG Tablet PO (10:42)
[2024-07-23] MEDS: Ferrous Sulfate 325 MG Tablet PO (10:42)
[2024-07-23] MEDS: Heparin Injection (Vial) 5,000 UNIT/ML VIAL 5000 UNIT SC ×2 (10:42→21:19)
[2024-07-23] MEDS: Potassium Chloride Oral Tablet 20 MEQ 60 MEQ PO (10:42)
[2024-07-23] MEDS: Cholecalciferol (VIT D3) 25 MCG TABLET (1,000 UNITS) PO (10:42)
[2024-07-23] MEDS: Ceftriaxone 1 GM/50 ML BAG IV (10:53)
[2024-07-23 11:15] LABS: Bedside Glucose 138 mg/dL (74-106)
--- NOTE | 2024-07-23 11:22 | CASEMGMT ---
Social Work- SW met with pt to offer supports, assess pt needs. SW introduced self and role; pt agreeable to meeting. Pt reports that she lives with her spouse, daughter, and son in a multi-level home that they rent. 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 Pt reports her disability will be ending soon and is uncertain if she will return to work. Pt reports her is a hermit and stays in his room all the time. Pt reports that they don't have a relationship, he is not a part of the family, as they never see him. Pt reports that he receives his mother's pension, but uses it to pay his credit card bills and pt spouse does not contribute towards household expenses. Pt reports that he has arthritis in his hip, but she is unaware of what other health issues he may have, as they do not see one another or speak. Pt reports no ill feelings between them and that they both love each other. Pt daughter, marco, works night time nanny third shift as BENCH BORING MACHINE OPERATOR. Pt dtr assists pt with personal care. Pt reports that pt dtr is main caregiver. Pt reports that the dried stool on her at admittance was recent, not old, and due to constant diarrhea. Pt sonvelvet works 4 hours per day. Pt reports that her son brings her breakfast and water and tea for the day before leaving. Pt son will also bring laundry from the basement for pt to fold during the day. Pt reports that everyone makes meals independently; reporting that everyone in the home only eats microwavable food. Pt reports that she can get melas, but it is easier for pt kids to get the meals for her. Pt reports that she was eating prior to the 4 weeks she has been vomiting/had diarrhea. Pt reports that she took her meds daily until she began getting sick as well. Pt reports that one of her kids sets her medications up. Pt reported she didn't know if pt and children would be able to manage insulin. Pt reports that she does not want meals on wheels, as she is very picky. Pt denied HHC, as she is very private and don't want nothing in the home. Pt reports that her father raised her to care for herself. Pt reports that she does not have concerns regarding conditions in the home; pt feels the house is okay and denied poor sanitary conditions in the home. Pt has no safety concerns in the home. Pt denied receiving or needing food stamps, utility assistance, or other community resources. SW remains available to follow for discharge needs. BETH Gusman
--- NOTE | 2024-07-23 12:56 | CHAPLAIN ---
Type of Pastoral Visit _x__ Initial Visit ___ Follow-up Visit ___ On-call Visit ___ General Patient Visit ___ Spiritual Assessment ___ Family Conference ___ Bereavement ___ Rapid Response ___ Code Blue ___ Other (describe below) Pastoral Care Referral From _x__ Patient ___ Family ___ Nurse ___ Physician ___ Roofer ___ Tire Regrooving Machine Operator ___ Other (describe below) Sacrament/Intervention _x__ Active listening ___ Anointing ___ Gnosticist ___ Bereavement ___ Communion _x__ Rylie exploration ___ ___ Life review _x__ Prayer ___ Reconciliation ___ Sacrament of Sick _x__ Supportive presence ___ Wedding ___ Other (describe below) Pastoral Comments patient admits embarrassment for her situation and that it requires 'clean up' of her personal body; pt welcomes support and presence to talk about her needs, level of family support, and her disappointment with yarsanism although still concern for relationship to God; prayer and presence given
--- NOTE | 2024-07-23 14:15 | CASEMGMT ---
JANETH GARCÍA NOTE: RN CM to room. Pt resting in bed. Introduced self and role. Pt is aware she may be discharging on insulin. She states she has a functioning glucometer @ home w/sufficient supplies. She states she checks her BS's every AM @ home and sometimes more often if she is not feeling well. She reports having all needed medications as well. Pt states she has been on insulin in the past and would be comfortable w/doing this again. Pt is aware therapy will be working w/her. Discussed discharge planning. Pt states even if she is weaker than her baseline and needing more assistance @ dc that she still wants to discharge home and does not wish to go to a SNF short-term before returning home, stating her family can assist her @ home. Her daughter then came into room and also verifies that between her and her brother, they rotate shifts and are able to continue to provide care in the home. She states one of them is home w/pt almost 08/10. She states on days they both work, there is a 3-3 1/2 window where their shifts over-lap and they are not in the home, but pt is able to manage okay on her own during that time-frame. Pt and daughter both made aware if they change their mind or if they have any further discharge needs or concerns to ask to speak w/SW or CM. They voice understanding. Rodney CHEATHAM RN, CM
--- NOTE | 2024-07-23 14:29 | WOUNDNOTE ---
wound photo: tian cleft
--- NOTE | 2024-07-23 14:29 | WOUNDNOTE ---
wound photo: left ischium
[2024-07-23 16:16] LABS: Bedside Glucose 118 mg/dL (74-106)
[2024-07-23] MEDS: 0.9% Saline Lock 10 ML Syringe IV (18:27)
[2024-07-23 19:47] LABS: Anion Gap 11 (5-15); BUN 24 mg/dL (4-19); BUN/Creat Ratio 19.5 RATIO (10-20); Calcium,Total 7.7 mg/dL (7.6-11.0); Carbon Dioxide 23.1 mmol/L (21.0-32.0); Chloride 106 mmol/L (98-108); Creatinine, Serum 1.25 mg/dL (0.70-1.20); EST Glomerular Filtration Rate 50 (>60); Estimated Creatinine Clearance 29.35 ml/min (50-250); Glucose 106 mg/dL (70-99); Potassium 2.9 mmol/L (3.3-5.1); Sodium Level 140 mmol/L (133-145)
[2024-07-23] MEDS: Atorvastatin Calcium 40 MG Tablet PO (21:20)
[2024-07-23] MEDS: Menthol/Lanolin/Calamine/Znox 113 GM Tube 1 APPLIC TOPICAL (21:36)
[2024-07-23 22:00] LABS: Bedside Glucose 84 mg/dL (74-106)
[2024-07-23 22:00] LABS: Bedside Glucose 57 mg/dL (74-106)
[2024-07-24] VITALS (7 sets, daily range): BP systolic 101–141; BP diastolic 50–76; PULSE 86–101; RESP 14–18; TEMP 36.6–37.2; O2SAT 98–100; BMI 16.4
[2024-07-24 02:24] LABS: Bedside Glucose 165 mg/dL (74-106)
[2024-07-24 07:06] LABS: Absolute Lymphocyte Count 1.53 X10^3/uL (0.83-4.51); Absolute Neutrophil Count 8.8 X10^3/uL (2.0-7.7); Basophil# 0.03 X10^3/uL; Basophil% 0.3 % (0-1); Eosinophil# 0.08 X10^3/uL; Eosinophils% 0.7 % (0-5); Hematocrit 22.6 % (37-47); Hemoglobin 7.4 g/dL (12.0-15.0); Lymphocyte # 1.53 X10^3/ul (0.83-4.51); Lymphocyte % 13.9 % (19-41); Mean Corp Hgb Conc 32.7 g/dL (32-36); Mean Corpuscular Hgb 27.9 pg (27.0-32.0); Mean Corpuscular Volume 85.3 fL (81-99); Monocyte# 0.47 X10^3/uL; Monocyte% 4.3 % (0-10); NRBC Flagged by Analyzer 0 % (0-5); Neutrophil # 8.84 X10^3/uL (2.7-7.7); Neutrophil % 80.3 % (47-70); Platelet Count 312 K/mm3 (150-450); RBC Distribution Width CV 14.8 % (11.6-14.6); RBC Distribution Width SD 46.1 fl (35.1-43.9); Red Blood Count 2.65 M/mm3 (4.2-5.4)
[2024-07-24 07:46] LABS: Anion Gap 8 (5-15); BUN 20 mg/dL (4-19); Calcium,Total 7.3 mg/dL (7.6-11.0); Carbon Dioxide 22.8 mmol/L (21.0-32.0); Chloride 110 mmol/L (98-108); Creatinine, Serum 1.18 mg/dL (0.70-1.20); EST Glomerular Filtration Rate 54 (>60); Estimated Creatinine Clearance 31.09 ml/min (50-250); Glucose 147 mg/dL (70-99); Sodium Level 141 mmol/L (133-145)
[2024-07-24 07:47] LABS: Potassium 2.6 mmol/L (3.3-5.1)
--- NOTE | 2024-07-24 07:47 | PCM.PN.HOSP ---
Reason for Visit Reason for Visit: Generalized weakness Subjective Subjective Patient states overall she is feeling better. No complaints today. We did discuss that she would need to go home on insulin and steroid and to work on giving herself insulin shots. Blood pressure is much better with the addition of lisinopril. Objective Data Objective Data Vital Signs: Vital Signs Temp Pulse Resp BP Pulse Ox O2 Del Method O2 Flow Rate 98.9 F 86 14 110/57 L 100 Room Air 2 07/24/24 01:58 07/24/24 01:58 07/24/24 01:58 07/24/24 01:58 07/24/24 01:58 07/24/24 01:58 07/22/24 10:00 Oxygen Flow Rate (L/min) 2 Oxygen Delivery Method Room Air Weight: 37.9 kg Body Mass Index (BMI) 16.4 Intake & Output: Intake and Output for Last 24 Hours 07/22/24 07/23/24 07/24/24 23:59 23:59 23:59 Intake Total 4202.02 / 4202.52 3785.9033 / 3785.9033 Output Total 250 / 250 650 / 650 Balance 3952.02 / 3952.52 3135.9033 / 3135.9033 Lab / Micro Data 07/24/24 06:22 07/24/24 06:22 Labs: Laboratory Results - last 24 hr 07/23/24 06:47: Sodium 152 H, Potassium 2.8 L, Chloride 116 H, Carbon Dioxide 24.4, Anion Gap 12, BUN 28 H, Creatinine 1.30 H, Estim Creat Clear Calc 28.22 L, Est GFR (MDRD) Non-Af 48 L, BUN/Creatinine Ratio 21.2 H, Glucose 106 H, Calcium 7.8, Total Bilirubin 0.16, AST 43 H, ALT 7, Alkaline Phosphatase 79, Total Protein 5.6 L, Albumin 2.6 L, Globulin 3.0, Albumin/Globulin Ratio 0.9, TSH 1.070 07/23/24 08:07: POC Glucose 126 H 07/23/24 10:53: POC Glucose 138 H 07/23/24 15:55: POC Glucose 118 H 07/23/24 18:35: Sodium 140, Potassium 2.9 L, Chloride 106, Carbon Dioxide 23.1, Anion Gap 11, BUN 24 H, Creatinine 1.25 H, Estim Creat Clear Calc 29.35 L, Est GFR (MDRD) Non-Af 50 L, BUN/Creatinine Ratio 19.5, Glucose 106 H, Calcium 7.7 07/23/24 21:18: POC Glucose 57 L 07/23/24 21:40: POC Glucose 84 07/24/24 02:05: POC Glucose 165 H 07/24/24 06:22: WBC 11.0, RBC 2.65 L, Hgb 7.4 L, Hct 22.6 L, MCV 85.3, MCH 27.9, MCHC 32.7, RDW Std Deviation 46.1 H, RDW Coeff of Emily 14.8 H, Plt Count 312, MPV 11.0, Immature Gran % (Auto) 0.500, Neut % (Auto) 80.3 H, Lymph % (Auto) 13.9 L, [place] % (Auto) 4.3, Eos % (Auto) 0.7, Baso % (Auto) 0.3, Absolute Neuts (auto) 8.8 H, Absolute Lymphs (auto) 1.53, Nucleated RBC % 0, Sodium 141, Potassium 2.6 L*, Chloride 110 H, Carbon Dioxide 22.8, Anion Gap 8, BUN 20 H, Creatinine 1.18, Estim Creat Clear Calc 31.09 L, Est GFR (MDRD) Non-Af 54 L, BUN/Creatinine Ratio 17.0, Glucose 147 H, Calcium 7.3 L Micro: Microbiology 07/23/24 10:30 Stool Stool Lactoferrin - Final 07/23/24 10:30 Stool Enteric Bacteriology - Final 07/23/24 10:30 Stool Clostridioides difficile (PCR) - Final 07/22/24 09:01 Urine, Catheterized Urine Culture - Preliminary GNR 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 Rhythm Strip Rhythm Strip: Sinus Rhythm Rate: 85 Ectopy: None Physical Exam Const alert, oriented x3 and no apparent distress; Negative for average body habitus, healthy appearing or well nourished Constitutional Narrative: Cachectic appearing middle-aged, sitting up in bed watching television, appears comfortable, nontoxic, very pleasant General Appearance: cooperative HEENT normocephalic, head/scalp atraumatic and moist oral mucous membranes HEENT Narrative: Edentulous, Mallampati is 2, no thrush Resp normal respiratory effort, no retractions, no use of accessory muscles and clear to auscultation bilaterally Resp Narrative: Diminished but clear Auscultation: Negative for rales, rhonchi or wheezes Cardio regular rate, regular rhythm, S1 normal heart sound, S2 normal heart sound, no murmurs, no rub, no gallops and no clicks GI normal to inspection, nondistended, normoactive bowel sounds, soft to palpation and non-tender GI Narrative: Scaphoid abdomen Extremity no clubbing, cyanosis or edema Extremity Narrative: Decreased lean muscle mass, right lower extremity has BKA Neuro oriented x3, moves all extremities and no focal motor deficits Speech: speech normal Psych affect normal Psych Narrative: Very pleasant, calm, interacts appropriately Assessment & Plan Assessment/Plan (1) Hyperosmolar hyperglycemic state (HHS): (2) Dehydration: (3) VIJAY (acute kidney injury): (4) Abnormal urinalysis: (5) Vaginal yeast infection: (6) Leukocytosis: (7) Thrombocytosis: (8) High anion gap metabolic acidosis: (9) Uncontrolled hypertension: (10) Noncompliance: (11) Diarrhea: PLAN: Plan HHS with a history of DM-2 and noncompliance - Blood sugars are fairly well-controlled on regimen instituted yesterday - AM fasting sugar was 147 - Continue basal insulin at 20 units - Continue lispro 10 units 3 times daily - SSI -Continue carb controlled diet - Dietitian is is following - Ongoing nursing to instruct patient in insulin pen use - Continue to hold home oral medications patient was noncompliant E. coli UTI - Currently on ceftriaxone day 3 which will complete antibiotics VIJAY secondary to severe dehydration -Resolving - Down to 1.3 today - will give 2 more liters of IV fluid as she still does appear to be clinically dry - Avoid nephrotoxins -Okay to restart lisinopril and monitor renal function closely Hypokalemia - Remains markedly hypokalemic with potassium down to 2.6 - Will give 60 mill equivalents - Repeat in a.m. and check a magnesium level Hypernatremia/hyperchloremia - Hypernatremia has resolved and hyper chloride anemia is resolving Diarrhea - Positive for fecal leuks however enteric panel and C. difficile are negative - Start Imodium 2 mg 3 times daily and will have her use as needed at home Leukocytosis -Resolved Thrombocytosis -Resolved Chronic anemia -Hemoglobin has dropped a bit more however she is markedly positive with regards to fluids - Repeat at noon and if stable likely at her baseline - will recommend outpatient GI follow-up after discharge for diarrhea and and chronic anemia - Repeat lab in a.m. - no signs of bleeding Vaginal yeast infection - Patient was given 150 mg of Diflucan in the emergency department - this should complete treatment next-monitor clinically DM-2 uncontrolled - Hemoglobin A1c is greater than 13 - Documented noncompliance from endocrinology notes - Insulin started as noted above - Will have him follow-up with endocrinology after discharge Uncontrolled hypertension/hyperlipidemia -Continue lisinopril as blood pressure is controlled on this today - As needed hydralazine for systolic blood pressure greater than 160 -Has not required - Continue home atorvastatin History of right lower extremity BKA - Complication related to her diabetes - Stable Severe malnutrition - Dietitian following - Glucerna ordered 4 times daily - Patient also has protein supplementation with Jayy Tobacco abuse - Recommend cessation - Patient denies need for nicotine replacement therapy DVT prophylaxis - Subcu heparin twice daily CODE STATUS - Full code Charges/Coding Visit Charges Inpatient E&M: 19336 Subs Hosp L2
[2024-07-24 08:27] LABS: Bedside Glucose 140 mg/dL (74-106)
[2024-07-24] MEDS: Potassium Chloride Oral Tablet 20 MEQ 60 MEQ PO (09:04)
[2024-07-24] MEDS: Glucerna Shake 120 ML LIQUID PO ×4 (09:06→21:02)
[2024-07-24] MEDS: Menthol/Lanolin/Calamine/Znox 113 GM Tube 1 APPLIC TOPICAL ×4 (09:07→22:08)
[2024-07-24] MEDS: Cholecalciferol (VIT D3) 25 MCG TABLET (1,000 UNITS) PO (09:08)
[2024-07-24] MEDS: Lisinopril 10 MG Tablet PO (09:08)
[2024-07-24] MEDS: Heparin Injection (Vial) 5,000 UNIT/ML VIAL 5000 UNIT SC ×2 (09:09→22:20)
[2024-07-24] MEDS: Ceftriaxone 1 GM/50 ML BAG IV (09:09)
[2024-07-24] MEDS: Insulin Glargine-YFGN 100 UNIT/ML Pen 15 UNIT SC (09:26)
[2024-07-24 09:47] LABS: Bedside Glucose 215 mg/dL (74-106)
[2024-07-24] MEDS: Loperamide 2 MG Capsule PO ×2 (11:09→22:20)
[2024-07-24 11:43] LABS: Bedside Glucose 248 mg/dL (74-106)
[2024-07-24] MEDS: Ferrous Sulfate 325 MG Tablet PO (12:09)
[2024-07-24] MEDS: Insulin Lispro 100 UNIT/ML INSULN.PEN SC (12:09)
[2024-07-24] MEDS: Insulin Lispro 100 UNIT/ML INSULN.PEN 10 UNIT SC ×2 (12:11→17:18)
--- NOTE | 2024-07-24 14:31 | CASEMGMT ---
Addendum entered by Odessa Abbasi 07/24/24 14:34: Pt states she does have a BGM with sufficient strips and lancets. Original Note: RN CM into pt room, pt sitting up in chair. Pt is still denying the need for HHC. She states she has family to care for her. She is aware that should she get home and change her mind, she can call her PCP for services. Pt verbalized understanding. Pt nurse states pt is able to give insulin and check own blood sugars. Pt denies any homegoing needs.
[2024-07-24 16:28] LABS: Bedside Glucose 93 mg/dL (74-106)
[2024-07-24] MEDS: 0.9% Saline Lock 10 ML Syringe IV (17:17)
[2024-07-24] MEDS: Potassium Chloride Oral Tablet 20 MEQ 40 MEQ PO (17:18)
[2024-07-24 21:14] LABS: Bedside Glucose 43 mg/dL (74-106)
[2024-07-24 21:41] LABS: Bedside Glucose 38 mg/dL (74-106)
[2024-07-24] MEDS: Dextrose 50%-Water 25 GM/50 ML DISP.SYRIN IV (21:56)
[2024-07-24 22:02] LABS: Bedside Glucose 89 mg/dL (74-106)
[2024-07-24] MEDS: Dextrose 10%-Water 250 ML 70 ML IV (22:08)
[2024-07-24] MEDS: Atorvastatin Calcium 40 MG Tablet PO (22:19)
[2024-07-24 22:20] LABS: Glucose 94 mg/dL (70-99)
[2024-07-25 00:16] LABS: Bedside Glucose 365 mg/dL (74-106)
[2024-07-25] MEDS: Loperamide 2 MG Capsule PO (05:36)
[2024-07-25 05:39] VITALS: BP 149/62; PULSE 93; RESP 16; TEMP 36.9; O2SAT 100
[2024-07-25 05:41] VITALS: BMI 17.6
[2024-07-25 06:07] LABS: Bedside Glucose 155 mg/dL (74-106)
[2024-07-25 06:53] LABS: Absolute Lymphocyte Count 1.62 X10^3/uL (0.83-4.51); Basophil# 0.02 X10^3/uL; Basophil% 0.2 % (0-1); Eosinophil# 0.06 X10^3/uL; Eosinophils% 0.6 % (0-5); Hematocrit 23.6 % (37-47); Hemoglobin 7.7 g/dL (12.0-15.0); Lymphocyte # 1.62 X10^3/ul (0.83-4.51); Lymphocyte % 17.5 % (19-41); Mean Corp Hgb Conc 32.6 g/dL (32-36); Mean Corpuscular Hgb 28.4 pg (27.0-32.0); Mean Corpuscular Volume 87.1 fL (81-99); Mean Platelet Vol. 11.2 fl (6.2-12.0); Monocyte# 0.48 X10^3/uL; Monocyte% 5.2 % (0-10); NRBC Flagged by Analyzer 0 % (0-5); Neutrophil % 75.9 % (47-70); Platelet Count 315 K/mm3 (150-450); RBC Distribution Width CV 15.2 % (11.6-14.6); RBC Distribution Width SD 48.5 fl (35.1-43.9); Red Blood Count 2.71 M/mm3 (4.2-5.4); White Blood Count 9.2 K/mm3 (4.4-11.0)
[2024-07-25 07:14] LABS: Anion Gap 10 (5-15); BUN 26 mg/dL (4-19); BUN/Creat Ratio 20.2 RATIO (10-20); Calcium,Total 7.9 mg/dL (7.6-11.0); Carbon Dioxide 18.5 mmol/L (21.0-32.0); Chloride 111 mmol/L (98-108); EST Glomerular Filtration Rate 48 (>60); Estimated Creatinine Clearance 30.46 ml/min (50-250); Glucose 124 mg/dL (70-99); Magnesium 1.5 mg/dL (1.5-2.2); Phosphorus 1.9 mg/dL (2.7-4.5); Potassium 3.4 mmol/L (3.3-5.1); Sodium Level 139 mmol/L (133-145)
--- NOTE | 2024-07-25 08:18 | DS.PCM_ITS ---
Providers Date of Admission: 07/22/24 Date of Discharge: 07/25/24 Primary Care Physician: Dr. Art Herman MD Consultations 07/23/24 11:18 Consult: Onc/Wound/account support rep Routine Comment: Reason for Consult:: Buttocks pressure/incontinence injuries x1 Reason For Visit: HHS Diagnosis Discharge Diagnosis (1) Hyperosmolar hyperglycemic state (HHS): Status: Acute Code(s): E11.00 - Type 2 diabetes mellitus with hyperosmolarity without nonketotic hyperglycemic-hyperosmolar coma (NKHHC) (2) Dehydration: Status: Acute Code(s): E86.0 - Dehydration (3) VIJAY (acute kidney injury): Status: Acute Code(s): N17.9 - Acute kidney failure, unspecified (4) Abnormal urinalysis: Status: Acute Code(s): R82.90 - Unspecified abnormal findings in urine (5) Vaginal yeast infection: Status: Acute Code(s): B37.31 - Acute candidiasis of vulva and vagina (6) Leukocytosis: Status: Acute Code(s): D72.829 - Elevated white blood cell count, unspecified (7) Thrombocytosis: Status: Acute Code(s): D75.839 - Thrombocytosis, unspecified (8) High anion gap metabolic acidosis: Status: Acute Code(s): E87.29 - Other acidosis (9) Uncontrolled hypertension: Status: Acute Code(s): I10 - Essential (primary) hypertension (10) Noncompliance: Status: Acute Code(s): Z91.199 - Patient's noncompliance with other medical treatment and regimen due to unspecified reason (11) Diarrhea: Status: Acute Code(s): R19.7 - Diarrhea, unspecified Medications at Discharge Home Medications albuterol sulfate 90 mcg/actuation aerosol inhaler 2 puff inhalation Q4H PRN Sob &/Or Wheezing 10/01/18 dapagliflozin propanediol 10 mg tablet (Farxiga) 10 mg PO DAILY blood sugars 09/20/22 atorvastatin 40 mg tablet 40 mg PO QHS cholesterol 02/26/23 cholecalciferol (vitamin D3) 25 mcg (1,000 unit) tablet 25 mcg PO DAILY supplement 02/26/23 ferrous sulfate 325 mg (65 mg iron) tablet (FeroSul) 325 mg PO DAILY supplement 02/26/23 blood-glucose meter (True Metrix Glucose Meter) #1 ea 08/19/23 True Metrix Glucose Test Strip (blood sugar diagnostic) #50 ea 06/30/24 insulin glargine 100 unit/mL (3 mL) subcutaneous pen (Lantus Solostar U-100 Insulin) 20 unit (0.2 mL) subcut DAILY #15 mL 07/25/24 insulin lispro 100 unit/mL subcutaneous pen (Humalog KwikPen (U-100) Insulin) 5 unit (0.05 mL) subcut TIDAC #15 mL 07/25/24 lisinopril 10 mg tablet 10 mg PO DAILY #30 tabs 07/25/24 loperamide 2 mg capsule 2 mg PO Q8 #0 caps 07/25/24 pen needle, diabetic 31 gauge x 1/4 (1st Tier Unifine Pentips) #100 ea 07/25/24 potassium chloride 20 mEq tablet,extended release(part/cryst) 40 meq (2 x 20 mEq) PO BIDCM #10 tabs 07/25/24 Hospital Course Procedures EKG and - (CT brain/chest x-ray) Summary of Care Provided Minutes Spent on Discharge: 39 Hospital Course: SANJUANITA BECERRA, is a 59 F who presented to the emergency department [facility] on 07/22/2024 with a chief complaint of generalized weakness. There was apparently some concern for stroke because the last night about 1:30 AM she had some intermittent paresthesias in her right hand and fingers. Though symptoms are resolved. Her daughter noted that her voice or speech was different at that time as well but her daughter was at work. This morning her daughter still felt her speech was changed so she called EMS. Patient reported she had intermittent diarrhea and nausea for about 3 weeks. She has not been taking any of her home medications including her insulin. She denies any fever or chills, she denied abdominal pain, she indicated she was extremely thirsty and wanted to drink. She follows with endocrinology as an outpatient with her last visit being on 05/27/2024. It appeared on admission that there is a long history of noncompliance. Vital signs at the time of presentation showed a temperature of 97.1, heart rate 93, respiratory rate was 16, blood pressure was 125/109 and pulse ox was 98% on room air. CBC showed a white count of 22.5 with a hemoglobin of 11.1 and thrombocytosis with a platelet count of 526,000 CBC appears to be markedly hemoconcentrated compared to her baseline. A VBG was obtained and her pH was 7.26. Her chemistry showed marked hypokalemia with potassium of 2.3 she had significant VIJAY with serum creatinine of 2.19 and a BUN of 51. Anion gap was elevated at 21 however her bicarb was normal at 30.7 I suspect this is all contraction related and her anion gap is elevated related to her VIJAY. Serum creatinine baseline is between 0.8 and 1.0. Serum glucose on presentation was 1162. Serum osmolality was elevated at 356. Lactic acid was normal at 1. Magnesium was normal at 2.3 however phosphorus was found to be 0.7. Liver functions were fairly unremarkable. Initial troponin was 47 with a delta of 40. Beta hydroxybutyrate was normal. Her UA is suggestive of infection. CT of brain was unremarkable for any acute findings. Chest x-ray is unremarkable. Patient was aggressively hydrated and treated for hypokalemia in the emergency department and given subcu insulin. Urine culture was sent and she was given ceftriaxone. She was initially admitted to the intensive care unit and maintained on IV ceftriaxone. Urine culture did test positive for E. coli and she received a 3-day course of ceftriaxone while she was hospitalized. She was placed on an insulin drip for HHS protocol and her blood sugars were slowly lowered between daily insulin drip and IV fluids. She was aggressively hydrated. She was severely hemoconcentrated on presentation with an elevated white count, erythrocytosis, and thrombocytosis. Her baseline hemoglobin prior to presentation appeared runs between 7.5 and 9. After full hydration her hemoglobin did drop but was in her baseline range without any obvious signs of blood loss. She stated that she had been told previously that she needs a colonoscopy but has not not yet made that appointment. We did make a referral to see Dr. Gaytan at discharge and she is to call on Saturday to set that appointment up. After we were able to get her off the insulin drip for HHS she was transition to basal insulin at 20 units and initially subcu insulin with meals 3 times daily at 10 units. She had some hypoglycemic episodes so we reduced her bolus insulin with meals down to 5 and maintained her basal insulin at 20 units as her fasting sugars were well-controlled. She will continue her Farxiga but her glipizide was discontinued at the time of discharge. Her hemoglobin A1c was found to be markedly elevated at greater than 13 so we felt insulin was appropriate this time. She was instructed intensely in giving herself insulin injections and performed competently prior to discharge. We have asked her to check her blood sugars 4 times daily once in the morning fasting and before each meal. She already is established with endocrinology and I have asked her to call and get an appointment to be seen as soon as there is availability. She had significant electrolyte abnormalities during her hospitalization all of which have been replaced at the time of discharge. She will be discharged with another few days of potassium replacement as this was the biggest electrolyte abnormality she had during her hospital course and I suspect she was just severely depleted. She was also noted to have a vaginal yeast infection and was treated with Diflucan 150 x 1 dose. Her blood pressure was elevated. She had previously been on lisinopril 5 mg we did increase this and discharged her with a prescription for lisinopril 10 mg. Blood pressure control was much better. We have also advised tobacco cessation. Again, she is to follow-up with her primary care physician within 1 week, Dr. Gaytan within the next 1 to 2 weeks, and endocrinology as they have availability. She was offered home health multiple times at the time of discharge however she declined. She is to use as needed loperamide for her diarrhea as it was found to be noninfectious. Again it was reiterated that colonoscopy will be important in the near future. Discharge diagnoses: HHS Medication noncompliance E. coli UTI VIJAY Severe dehydration Hypokalemia Hypophosphatemia Hypernatremia Hyperchloremia Diarrhea Leukocytosis Thrombocytosis Chronic anemia Vaginal yeast infection DM-2 uncontrolled Uncontrolled hypertension Hyperlipidemia History of right lower extremity BKA Severe malnutrition Tobacco abuse Physical Exam Const alert, oriented x3 and no apparent distress; Negative for average body habitus, healthy appearing or well nourished Constitutional Narrative: Cachectic appearing middle-aged, sitting up in bed watching television, appears comfortable, nontoxic, very pleasant General Appearance: cooperative and comfortable Nutritional Appearance: cachectic HEENT normocephalic, head/scalp atraumatic, hearing grossly normal bilaterally and moist oral mucous membranes HEENT Narrative: Edentulous, Mallampati is 1, no thrush, severe temporal wasting bilaterally Eyes EOMs intact bilaterally and conjunctivae normal Eyes Narrative: conjunctiva pallor bilaterally, no scleral icterus Neck supple Neck Narrative: Trachea midline Resp normal respiratory effort, no retractions, no use of accessory muscles and clear to auscultation bilaterally Resp Narrative: Diminished but clear Auscultation: Negative for rales, rhonchi or wheezes Cardio regular rate, regular rhythm, S1 normal heart sound, S2 normal heart sound, no murmurs, no rub, no gallops and no clicks GI normal to inspection, nondistended, normoactive bowel sounds, soft to palpation and non-tender GI Narrative: Scaphoid abdomen Extremity no clubbing, cyanosis or edema Extremity Narrative: Decreased lean muscle mass, right lower extremity has BKA Skin no jaundice, no petechiae and no mottling Skin Narrative: Skin is pale Neuro oriented x3, moves all extremities and no focal motor deficits Neuro Narrative: Decreased sensation left distal lower extremity Speech: speech normal Psych affect normal Psych Narrative: Very pleasant, calm, interacts appropriately Mood & Affect: anxious Weight / BMI Weight Weight: 40.9 kg Body Mass Index (BMI) 17.6 ABG / Lab / Microbiology Data 07/25/24 06:08 07/25/24 06:08 Laboratory: Laboratory Results - last 24 hr 07/24/24 13:13: Hgb 9.0 L 07/24/24 16:10: POC Glucose 93 07/24/24 20:55: POC Glucose 43 L* 07/24/24 21:23: POC Glucose 38 L* 07/24/24 21:44: POC Glucose 89 07/24/24 21:50: Glucose 94 07/24/24 23:59: POC Glucose 365 H 07/25/24 05:35: POC Glucose 155 H 07/25/24 06:08: WBC 9.2, RBC 2.71 L, Hgb 7.7 L, Hct 23.6 L, MCV 87.1, MCH 28.4, MCHC 32.6, RDW Std Deviation 48.5 H, RDW Coeff of Emily 15.2 H, Plt Count 315, MPV 11.2, Immature Gran % (Auto) 0.600, Neut % (Auto) 75.9 H, Lymph % (Auto) 17.5 L, Hodgeman % (Auto) 5.2, Eos % (Auto) 0.6, Baso % (Auto) 0.2, Absolute Neuts (auto) 7.0, Absolute Lymphs (auto) 1.62, Nucleated RBC % 0, Sodium 139, Potassium 3.4, Chloride 111 H, Carbon Dioxide 18.5 L, Anion Gap 10, BUN 26 H, Creatinine 1.30 H , Estim Creat Clear Calc 30.46 L, Est GFR (MDRD) Non-Af 48 L, BUN/Creatinine Ratio 20.2 H, Glucose 124 H, Calcium 7.9, Phosphorus 1.9 L, Magnesium 1.5 07/25/24 11:13: POC Glucose 250 H Microbiology: Microbiology 07/22/24 09:01 Urine, Catheterized Urine Culture - Final Escherichia coli 07/23/24 10:30 Stool Stool Lactoferrin - Final 07/23/24 10:30 Stool Enteric Bacteriology - Final 07/23/24 10:30 Stool Clostridioides difficile (PCR) - Final D/C Instructions Discharge Diet: 1800 Calorie Control Diet Discharge Activity: Return to Normal Activity DC O2, CPAP, BIPAP Needs Home O2 Discharge instructions: No Meaningful Use Info Meaningful Use Meaningful Use Diagnoses (Choose all that apply): None applicable Ischemic Stroke Statin Dosing Therapy Reference: STATIN DOSE THERAPY REFERENCE: * Patients > 75 years receive moderate or high dose statin therapy. * Patients 75 years or YOUNGER should receive HIGH intensity statin dose unless contraindicated. You will be required to document reason for non-treatment if statin daily dose does not meet guidelines. HIGH DOSE STATIN THERAPY DAILY Atorvastatin > than or = to 40 mg Rosuvastatin > than or = to 20 mg Amlodipine + Atorvastatin > than or = to 2.5/40 mg Ezetimibe + Simvastatin 10/80 mg Simvastatin 80mg Discharge Plan Admission Admit Date/Time: 07/22/24 09:41 Primary Reason for Your Visit: weakness Attending Provider: Floresita Capellan Primary Care Provider: Art Herman Instructions Additional Instructions / Restrictions: 1. If you are not able to eat on a regular basis due to nausea or vomiting please decrease your glargine from 20 units to 10 units and do not take your lispro 2. Please check your blood sugars in the morning and before each meal. Write them down and take them to your next appointment with your diabetes doctor 3. Please call on Saturday to set up an appointment with your diabetes doctor and the stomach doctor to get a colonoscopy scheduled for your ongoing diarrhea 4. Please buy [id number] loperamide and use as needed Discharge Orders/Prescriptions Prescriptions: New insulin lispro [Humalog KwikPen Insulin] 100 unit/mL Insulin Pen 5 unit subcut TIDAC Qty: 15 0RF lisinopril 10 mg Tablet 10 mg PO DAILY Qty: 30 0RF potassium chloride 20 mEq Tablet,Er Particles/Crystals 40 meq PO BIDCM Qty: 10 0RF loperamide 2 mg Capsule 2 mg PO Q8 Qty: 0 0RF (DME) pen needle, diabetic [1st Tier Unifine Pentips] 31 gauge x 1/4 needle See Rx Instructions .Route Qty: 100 1RF Rx Instructions: As directed insulin glargine [Lantus Solostar U-100 Insulin] 100 unit/mL (3 mL) insulin pen 20 unit subcut DAILY Qty: 15 0RF Continued dapagliflozin propanediol [Farxiga] 10 mg tablet 10 mg PO DAILY albuterol sulfate 1 PUFF inhaler 2 puff inhalation Q4H PRN (Reason: Sob &/Or Wheezing) atorvastatin 40 mg tablet 40 mg PO QHS Patient Comments: PT HASNT BEEN TAKING IN 3 WEEKS ferrous sulfate [FeroSul] 325 mg (65 mg iron) tablet 325 mg PO DAILY cholecalciferol (vitamin D3) 25 mcg (1,000 unit) tablet 25 mcg PO DAILY (DME) blood-glucose meter [True Metrix Glucose Meter] Misc See Rx Instructions .Route Qty: 1 0RF Rx Instructions: As directed (DME) True Metrix Glucose Test Strip Strip See Rx Instructions .Route Qty: 50 8RF Rx Instructions: daily Discontinued lisinopril 5 mg tablet 5 mg PO DAILY glipizide 5 mg tablet 5 mg PO BID Qty: 60 5RF Referrals / Follow Up: Art Herman MD [Primary Care Provider] - Within 1 Week Miguel A Gaytan DO [Med Staff - Active Staff] - See Referral Note (Please call on Saturday to set up an appointment to be seen in the next 2 weeks) Wan Madrigal MD [Med Staff - Courtesy Staff] - 08/27/24 11:15 am Disposition Disposition (needs filled in before D/C Order can be placed): Home, Self Care Charges/Coding Visit Charges Inpatient E&M: 00095 Disch Hosp >30min
[2024-07-25 09:00] VITALS: BP 94/61; PULSE 76; RESP 18; TEMP 36.6; O2SAT 96
[2024-07-25] MEDS: Potassium Phosphate 40 MM in 0.9% Normal Saline (500mL Bag) 500 ML 62.5 MM IV (09:54)
[2024-07-25] MEDS: Potassium Chloride Oral Tablet 20 MEQ 40 MEQ PO (09:54)
[2024-07-25] MEDS: Cholecalciferol (VIT D3) 25 MCG TABLET (1,000 UNITS) PO (09:54)
[2024-07-25] MEDS: Heparin Injection (Vial) 5,000 UNIT/ML VIAL 5000 UNIT SC (09:54)
[2024-07-25] MEDS: Lisinopril 10 MG Tablet PO (09:54)
[2024-07-25] MEDS: Glucerna Shake 120 ML LIQUID PO (09:54)
[2024-07-25] MEDS: Menthol/Lanolin/Calamine/Znox 113 GM Tube 1 APPLIC TOPICAL (09:54)
[2024-07-25] MEDS: Insulin Glargine-YFGN 100 UNIT/ML Pen 20 UNIT SC (11:14)
[2024-07-25] MEDS: Insulin Lispro 100 UNIT/ML INSULN.PEN SC (12:26)
[2024-07-25] MEDS: Ferrous Sulfate 325 MG Tablet PO (12:26)
[2024-07-25 12:32] LABS: Bedside Glucose 250 mg/dL (74-106)
--- NOTE | 2024-07-25 12:39 | CASEMGMT ---
Addendum entered by Roseline Vogt 07/25/24 12:55: Dr Capellan sent order for Lantus Solostar to [facility]. Call placed the pharmacy and spoke w/Rehana. She states Lantus went through without any difficulty and there is no co-pay. Original Note: JANETH GARCÍA NOTE: Call received from Kali @ [facility], stating insurance states insulin glargine that was prescribed for pt is not covered and requires brand to be ordered. She submitted for Semglee and states that requires a PA. She sent this to [employer], [employer] # [id number]. Per [employer] Lantus Solostar and Levemir Flex Touch Pen PA likely not required. Dr Capellan notified. She states to have pharmacy substitute accordingly. Call placed to Kali in the pharmacy who states a new order needs placed for this, that she is not able to substitute. Dr Capellan notified. Per Kali, other Rx's that were sent went through without any difficulty, including the insulin lispro. Rodney CHEATHAM RN, CM
[2024-07-25 13:15] VITALS: BP 110/60; PULSE 97; RESP 18; TEMP 36.7; O2SAT 96
== END 2024-07-25 13:48 | disposition home or self-care (01) | DRG 420 ==
LOC: ED 07:43 → ICU 10:09 → MS3 07-23 16:55
PROVIDERS: Internal Medicine; Admitting Provider Internal Medicine; Emergency Provider Emergency Medicine; PCP Family Medicine; Visit Provider Internal Medicine
DX: E11.00 Type 2 diabetes mellitus with hyperosmolarity without nonketotic hyperglycemic-hyperosmolar coma (NKHHC) (principal); E43 Unspecified severe protein-calorie malnutrition; L89.320 Pressure ulcer of left buttock, unstageable; E87.29 Other acidosis; E83.39 Other disorders of phosphorus metabolism; E11.649 Type 2 diabetes mellitus with hypoglycemia without coma; B96.20 Unspecified Escherichia coli [E. coli] as the cause of diseases classified elsewhere; E86.0 Dehydration; I10 Essential (primary) hypertension; D64.9 Anemia, unspecified; Z89.511 Acquired absence of right leg below knee; N17.9 Acute kidney failure, unspecified; D72.829 Elevated white blood cell count, unspecified; E87.6 Hypokalemia; E78.5 Hyperlipidemia, unspecified; R19.7 Diarrhea, unspecified; E87.1 Hypo-osmolality and hyponatremia; E87.8 Other disorders of electrolyte and fluid balance, not elsewhere classified; K21.9 Gastro-esophageal reflux disease without esophagitis; F17.200 Nicotine dependence, unspecified, uncomplicated; D75.839 Thrombocytosis, unspecified; Z79.4 Long term (current) use of insulin; B37.31 Acute candidiasis of vulva and vagina; Z68.1 Body mass index [BMI] 19.9 or less, adult; M81.0 Age-related osteoporosis without current pathological fracture; N39.0 Urinary tract infection, site not specified; Z87.39 Personal history of other diseases of the musculoskeletal system and connective tissue; Z91.199 Patient's noncompliance with other medical treatment and regimen due to unspecified reason; Z79.84 Long term (current) use of oral hypoglycemic drugs; Z79.899 Other long term (current) drug therapy; Z91.148 Patient's other noncompliance with medication regimen for other reason
CPT/HCPCS: 36415; 70450; 71045; 80048; 80053; 81001; 82010; 82803; 82947; 82962; 83036; 83605; 83630; 83735; 83930; 84100; 84443; 84484; 85018; 85025; 87077; 87086; 87088; 87186; 87493; 87506; 93005; 94668; 97162; 97166; 97530; 97535; 99252; 99285; P9612; A4216; G0463

== ENCOUNTER → 2024-08-26 | Outpatient (CLI) | payer MEDICAID, SELFPAY ==
[2024-08-26 14:03] LABS: Cholesterol 156 mg/dL (<=200); High Density Lipoprotein 83 mg/dL; Low Density Lipoprotein Calc. 65 mg/dL; Triglycerides 42 mg/dL; Very Low Density Lipoprotein 8 mg/dL (5-40); Vitamin D,25 Hydroxy 31.9 ng/mL (30-100); cholesterol:hdl ratio screen 1.88
[2024-08-26 14:04] LABS: ALB/GLOB Ratio 0.9 RATIO (0.9-2.4); AST(SGOT) 15 U/L (<=31); Alanine Aminotransfer ALT/SGPT 18 U/L (<=34); Albumin, Serum 3.5 g/dL (3.5-5.0); Alkaline Phosphatase 120 U/L (35-104); Anion Gap 12 (5-15); BUN 74 mg/dL (4-19); BUN/Creat Ratio 68.8 RATIO (10-20); Chloride 102 mmol/L (98-108); Creatinine, Serum 1.08 mg/dL (0.70-1.20); EST Glomerular Filtration Rate 60 (>60); Globulin 3.8 g/dL (2.2-4.2); Glucose 168 mg/dL (70-99); Potassium 4.4 mmol/L (3.3-5.1); Protein, Total 7.3 g/dL (5.9-8.4); Sodium Level 133 mmol/L (133-145); Total Bilirubin < 0.15 mg/dL (0.00-1.30)
== END | disposition home or self-care (01) ==
LOC: LAB 11:47
PROVIDERS: PCP Family Medicine; Referring Provider Nurse Practitioner Family; Visit Provider Nurse Practitioner Family
DX: E11.29 Type 2 diabetes mellitus with other diabetic kidney complication (principal); R80.9 Proteinuria, unspecified
CPT/HCPCS: 36415; 80053; 80061; 82306; 84443

== ENCOUNTER 2024-10-14 14:15 | Outpatient (RCR) | payer MEDICAID, SELFPAY ==
[2024-10-07 14:33] VITALS: BP 121/67; PULSE 106; RESP 18; TEMP 36.7; BMI 19.8
--- NOTE | 2024-10-07 16:42 | PCM.WC.HP ---
History of Present Illness Date of Service: 10/07/24 Chief Complaint: R BKA stump wound History of Wound: Arianna Jerry is a 57 y/o female who presents to the wound healing center today for management of a right BKA stump wound. She is accompanied to the appointment today by her daughter who helps to supplement her history and also helps with her wound care. 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 At that time, they explored and washed out proximally in her thigh as well. Subsequently she initially had wound vac placed prior to secondary closure. She reports that the amputation site did ultimately heal fully and she was able to obtain a prosthetic. She had been doing very well with her prosthetic and getting back to work etc. Unfortunately about 1-2 months ago she developed a wound on her amputation stump due to the prosthetic rubbing in this area. She presented to the [facility] ER on 02/26/23 with concern of infection. She was admitted from 02/26-03/01 for IV antibiotics. Wound cultures were positive for staph aureus, blood cultures were negative. She was evaluated by orthopedics at that time as well. XR and CT scan performed during that admission were negative for signs of osteomyelitis. She was discharged with a course of Bactrim and referral here. At home, they have been doing daily dressing changes with iodoform and dry gauze dressing. Her daughter reports it has made significant improvement since her hospital stay. Progress of Wound: Patient is a 59-year-old diabetic female presenting to wound care center today for follow-up evaluation of left foot plantar full-thickness wound. Patient is well-known to [facility] podiatry and referred to the wound care center for expert care and treatment. Patient has been dealing with full-thickness wound for a couple of weeks now with treatment consisting of outpatient debridement by [facility] podiatry, hydrogel and offloading pad. Patient is diabetic with an A1c of 8.3%. She denies any pain to the left lower extremity. 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 Denies any drainage or malodor. Denies trauma. Denies constitutional symptoms. No other pedal complaints at this time. [facility] Medical History Anemia Smoker Cellulitis and abscess of right lower extremity Type 2 diabetes mellitus with hyperglycemia, without long-term current use of insulin Sinus tachycardia seen on cardiac rehabilitation program director Below knee amputation Dysphagia Acid reflux Diabetes Home Medications ?Medication ?Instructions ?Recorded ?Last Taken ?Type albuterol sulfate 90 mcg/actuation 2 puff inhalation Q4H PRN Sob &/Or 10/01/18 Unknown History aerosol inhaler Wheezing atorvastatin 40 mg tablet 40 mg PO QHS cholesterol 02/26/23 02/25/23 History cholecalciferol (vitamin D3) 25 25 mcg PO DAILY supplement 02/26/23 02/25/23 History mcg (1,000 unit) tablet ferrous sulfate 325 mg (65 mg 325 mg PO DAILY supplement 02/26/23 02/25/23 History iron) tablet (FeroSul) blood-glucose meter (True Metrix #1 ea 08/19/23 Unknown Rx Glucose Meter) True Metrix Glucose Test Strip #50 ea 06/30/24 Unknown Rx (blood sugar diagnostic) insulin glargine 100 unit/mL (3 20 unit (0.2 mL) subcut DAILY #15 07/25/24 Unknown Rx mL) subcutaneous pen (Lantus mL Solostar U-100 Insulin) insulin lispro 100 unit/mL 5 unit (0.05 mL) subcut TIDAC #15 07/25/24 Unknown Rx subcutaneous pen (Humalog KwikPen mL (U-100) Insulin) lisinopril 10 mg tablet 10 mg PO DAILY #30 tabs 07/25/24 Unknown Rx loperamide 2 mg capsule 2 mg PO Q8 #0 caps 07/25/24 Unknown Rx blood-glucose sensor (Dexcom G7 #3 ea 08/06/24 Unknown Rx Sensor device) pen needle, diabetic 31 gauge x #100 ea 08/28/24 Unknown Rx 1/4 (1st Tier Unifine Pentips) folic acid 1 mg tablet 1 mg PO DAILY 10/07/24 Unknown History Allergy/AdvReac Type Severity Reaction Status Date / Time No Known Allergies Allergy Verified 08/26/24 10:57 Family History Grandmother Breast cancer Father Heart disease Hypertension Sister Thyroid disorder Aunt Thyroid disorder Other Arthritis CVA (cerebral vascular accident) Kidney disease Myocardial infarction Surgical History History of appendectomy Status post below knee amputation of right lower extremity history EGD with dilatation S/P appendectomy H/O thumb surgery Social History household members: family Smoking Status: Heavy Smoker (>10/day) alcohol intake: never substance use type: does not use what type of physical activity do you participate in: walking Vital Signs Vital Signs Vital Signs: 10/07/24 14:33 Temperature 98.0 F Temperature Source Temporal Pulse Rate 106 H Respiratory Rate 18 Blood Pressure 121/67 H Blood Pressure Mean 85 Blood Pressure Source Monitor Blood Pressure Position Semi-Fowlers Blood Pressure Location Left Arm Oxygen Delivery Method Room Air Weight Weight: 44.452 kg Body Mass Index (BMI) 19.8 Physical Exam Narrative Vascular: DP and PT pulses are palpable to the left lower extremity. CFT is brisk. Skin temperature gradient is warm to warm from proximal ankles to distal digits of the left lower extremity. No increase in focal warmth or erythema is appreciated to the left lower extremity. Neurological: Light touch is intact. Protective sensation is diminished. Dermatological: Evidence of full-thickness wound appreciated the subfifth metatarsal head measuring 1.4 x 1.2 x 0.2 cm. Wound base is 100% granular nature. No drainage. No sign of infection. Excisional debridement down to including subcutaneous tissue with a number 3 mm dermal curette to the left subfifth metatarsal head ulceration without incident. Predebridement measurement was 1.2 x 1.0 x 0.1 cm. Postdebridement measurement is 1.4 x 1.2 x 0.2 cm. Musculoskeletal: Muscle strength 5 out of 5 in all quadrants to the left lower extremity. Cavus foot deformity is appreciated. Mild varus/supination deformity appreciated to the left foot when at rest. No pain on palpation to full-thickness wound left foot. Debridement Note Debridement Note Debridement Free Text: Excisional debridement down to including subcutaneous tissue with a number 3 mm dermal curette to the left subfifth metatarsal head ulceration without incident. Predebridement measurement was 1.2 x 1.0 x 0.1 cm. Postdebridement measurement is 1.4 x 1.2 x 0.2 cm. Post-Debridement Measurements and Additional Note: Post-Debridement Measurements/Treatment WC - Nurse 1 - General Ulcer Assessment Start: 10/07/24 14:23 Freq: Status: Active Protocol: APRIL Activity Type Activity Date Activity User E-sign Co-sign Detail Recorded Client Recorded Date Recorded By Document 10/07/24 14:33 SARAH [id number] 10/07/24 14:37 10/07/24 14:33 - Today's Visit Information Type of service Initial Visit Arrival Mode Ambulatory,Cane Accompanied by daughter Patient Identification Verified (Name & Yes ) Finger Stick Blood Sugar(mg/dl) (if 210 indicated): Blood Sugar Done During this Visit Height and Weight Height 4 ft 11 in Weight 44.452 kg Weight in Pounds 98.0 lbs Weight Measurement Method Estimated by Patient Body Mass Index (BMI) 19.8 BMI Classification Normal Vital Signs Temperature (97.8 F-99.1 F) 98.0 F Temperature Source Temporal Pulse Rate (60-100) 106 H Pulse Location Monitor Respiratory Rate (12-18) 18 Respiratory rate source Observation Oxygen Delivery Method Room Air Blood Pressure (90/60-120/80) 121/67 H Blood Pressure Mean 85 Source Monitor Position Semi-Fowlers Blood Pressure Location Left Arm History Since Last Visit- (Skip if this is Patient's initial visit) Left Footwear Surgical Shoe with pressure relief insole Right Footwear Regular Shoe Pain Scale: 0-10 Numeric Is Patient Pain Free? Yes - Nurse 1 - General Ulcer Measurement Start: 10/07/24 14:23 Freq: Status: Active Protocol: Activity Type Activity Date Activity User E-sign Co-sign Detail Recorded Client Recorded Date Recorded By Document 10/07/24 14:33 SARAH [id number] 10/07/24 14:37 10/07/24 14:33 Wound Center Nurse 1 #3 LT LAT FT -Current Size (cm) - Length 1.5 -Current Size (cm) - Width 1 -Current Size (cm) - Depth 0.3 -Total Square Cm 1.5 -Date of Last Picture (Recall this 10/07/24 field) -Exudate Amt Medium -Exudate Type Serosanguineous -Wound Margin Distinct, Outline Attached -Granulation Amt Large (67-100%) -Granulation Quality Dennis -Texture (Edwina-wound Skin Appearance) Assessed,Callus -Moisture (Edwina-wound Skin Appearance) Assessed -Color (Edwina-wound Skin Appearance) Assessed -Temperature (Edwina-wound Skin No Abnormality Appearance) (Pt Warm) -Tenderness on Palpation (Edwina-wound No Skin Appearance) -Ulcer Cleansing Soap and Water -Foul Odor after Cleansing No -Anesthetic Used 5% Lidocaine Gel - Nurse 2 - General Ulcer CM Notes Start: 10/07/24 14:23 Freq: Status: Active Protocol: Activity Type Activity Date Activity User E-sign Co-sign Detail Recorded Client Recorded Date Recorded By Document 10/07/24 14:43 ALICIA [id number] 10/07/24 14:52 10/07/24 14:43 Wound Center Nurse 2 -Time 14:47 -Correct Patient Yes -Correct Side, Site, Position Yes -Correct Procedure Yes -Procedure Performed Yes -Type of Procedure Debridement -Clinical Debridement Subcutaneous -Tissue Removed Subcutaneous -Post Debridement (cm) - Length 1.4 -Post Debridement (cm) - Width 1.2 -Post Debridement (cm) - Depth 0.2 -Total Square (Post) (cm) 1.68 -Area of Debridement (cm) - Length 1.4 -Area of Debridement (cm) - Width 1.2 -Total Square (Area) (cm) 1.68 -Tunneling No -Undermining/Tunneling No -Circular Undermining No -Wound/Ulcer Outcome Not Healed -Ulcer Cleansing Rinsed/ Irrigated with Saline -Foul Odor after Cleansing No -Bioengineered Tissue No -Bleeding Controlled with Pressure -Treatment Response Procedure Tolerated Well -Debridement - Subq, 1st 20sq cm Yes Pain Scale: 0-10 Numeric Is Patient Pain Free? Yes - Nurse 3 - General Ulcer D/C NN Start: 10/07/24 14:23 Freq: Status: Active Protocol: Activity Type Activity Date Activity User E-sign Co-sign Detail Recorded Client Recorded Date Recorded By Document 10/07/24 15:09 SARAH [id number] 10/07/24 15:09 10/07/24 15:09 Wound Care Center Nurse 3 #3 LT LAT FT -Primary Dressing Applied AMD Dressing 4x4 -Primary Dressing Covered/Secured with Dry Gauze & Roll Gauze, Secured with Tape -AMD Dressing 4x4 1 Pain Scale: 0-10 Numeric Is Patient Pain Free? Yes - Visit Discharge Discharge Condition Stable Ambulatory Status Ambulatory,Cane Transportation Private Auto Medication Reconcilliation completed & No provided to patient/care provider Clinical Summary of Care Provided Yes Assessment/Plan Assessment/Plan (1) Non-pressure chronic ulcer of other part of left foot with fat layer exposed: CODE(S): L97.522 - Non-pressure chronic ulcer of other part of left foot with fat layer exposed PLAN: Patient was examined and evaluated. All findings were discussed with the patient. All questions were answered to the patient's satisfaction. Excisional debridement down to including subcutaneous tissue with a number 3 mm dermal curette to the left subfifth metatarsal head ulceration without incident. Predebridement measurement was 1.2 x 1.0 x 0.1 cm. Postdebridement measurement is 1.4 x 1.2 x 0.2 cm. The left foot was wiped clean and patted dry. AMD pad was applied followed by dry sterile dressing and light compression wrap. Offloading pad was inserted into the patient's surgical shoe and will change the dressing daily to every other day. Educated patient continue strict blood sugar control. Which she is understanding of. Will move forward with authorization of the patient insurance for a nutrition consultation. I discussed with the patient surgical intervention consisting of fifth metatarsal head dorsiflexor osteotomy done MIS which we will hold off and continue conservative treatment until we see evidence of decreased healing. If the patient is not interested in surgical intervention and will let me know next week, we will move forward with surgical skin graft site application once we see decrease in wound healing. Patient will follow-up with Dr. Otoole in 1 week (2) Chronic painful diabetic polyneuropathy: CODE(S): E11.42 - Type 2 diabetes mellitus with diabetic polyneuropathy
[2024-10-14 14:11] VITALS: BP 121/57; PULSE 100; RESP 16; TEMP 36.6; BMI 19.8
--- NOTE | 2024-10-15 09:29 | WC ---
PHOTO-LEFT LATERAL FOOT 10/14/24
--- NOTE | 2024-10-15 14:34 | PCM.WC.PN ---
History of Present Illness Date of Service: 10/14/24 Chief Complaint: R BKA stump wound History of Wound: Arianna Jerry is a 57 y/o female who presents to the wound healing center today for management of a right BKA stump wound. She is accompanied to the appointment today by her daughter who helps to supplement her history and also helps with her wound care. 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 At that time, they explored and washed out proximally in her thigh as well. Subsequently she initially had wound vac placed prior to secondary closure. She reports that the amputation site did ultimately heal fully and she was able to obtain a prosthetic. She had been doing very well with her prosthetic and getting back to work etc. Unfortunately about 1-2 months ago she developed a wound on her amputation stump due to the prosthetic rubbing in this area. She presented to the [facility] ER on 02/26/23 with concern of infection. She was admitted from 02/26-03/01 for IV antibiotics. Wound cultures were positive for staph aureus, blood cultures were negative. She was evaluated by orthopedics at that time as well. XR and CT scan performed during that admission were negative for signs of osteomyelitis. She was discharged with a course of Bactrim and referral here. At home, they have been doing daily dressing changes with iodoform and dry gauze dressing. Her daughter reports it has made significant improvement since her hospital stay. Progress of Wound: Stable full-thickness wound subfifth metatarsal head left foot. Subjective Subjective Patient is a 59-year-old diabetic female presented wound care center today for follow-up evaluation of full-thickness wound to the subfifth metatarsal head left foot. Patient has been doing dressing changes as prescribed. She is currently on doxycycline and Augmentin. She is not interested in surgery at this time and like to exhaust all conservative treatment. Denies trauma. Denies constitutional symptoms. She does continue to smoke. No other pedal complaints at this time. Objective Data Objective Data Vital Signs: Vital Signs Temp Pulse Resp BP O2 Del Method 97.8 F 100 16 121/57 H Room Air 10/14/24 14:11 10/14/24 14:11 10/14/24 14:11 10/14/24 14:11 10/14/24 14:11 Oxygen Delivery Method Room Air Weight: 44.452 kg Body Mass Index (BMI) 19.8 Lab / Micro Data Micro: Microbiology 10/08/24 10:25 Wound - Left Foot Gram Stain - Final 10/08/24 10:25 Wound - Left Foot Wound Culture - Final Meth. resistant Staph. aureus Streptococcus agalactiae (B) Physical Exam Narrative Vascular: DP and PT pulses are palpable to the left lower extremity. CFT is brisk. Skin temperature gradient is warm to warm from proximal ankles to distal digits of the left lower extremity. No increase in focal warmth or erythema is appreciated to the left lower extremity. Neurological: Light touch is intact. Protective sensation is diminished. Dermatological: Evidence of full-thickness wound appreciated the subfifth metatarsal head measuring 1.2 x 1.5 x 0.3 cm. Wound base is 100% granular nature. No drainage. No sign of infection. Excisional debridement down to including subcutaneous tissue, fascia and muscle with a number 3 mm dermal curette to the left subfifth metatarsal head ulceration without incident. Predebridement measurement was 1.1 x 1.2 x 0.1 cm. Postdebridement measurement is 1.2 x 1.5 x 0.3 cm. Musculoskeletal: Muscle strength 5 out of 5 in all quadrants to the left lower extremity. Cavus foot deformity is appreciated. Mild varus/supination deformity appreciated to the left foot when at rest. No pain on palpation to full-thickness wound left foot. Debridement Note Debridement Note Debridement Free Text: Excisional debridement down to including subcutaneous tissue, fascia and muscle with a number 3 mm dermal curette to the left subfifth metatarsal head ulceration without incident. Predebridement measurement was 1.1 x 1.2 x 0.1 cm. Postdebridement measurement is 1.2 x 1.5 x 0.3 cm. Post-Debridement Measurements and Additional Note: Post-Debridement Measurements/Treatment WC - Nurse 1 - General Ulcer Assessment Start: 10/07/24 14:23 Freq: Status: Active Protocol: TYREEEXGilson Activity Type Activity Date Activity User E-sign Co-sign Detail Recorded Client Recorded Date Recorded By Document 10/07/24 14:33 KW [id number] 10/07/24 14:37 KW Document 10/14/24 14:11 BM [id number] 10/14/24 14:16 BMF 10/07/24 10/14/24 14:33 14:11 - Today's Visit Information Type of service Initial Visit Follow-up Visit (Physician/LESSON INSTRUCTOR ) Arrival Mode Ambulatory,Cane Ambulatory,Cane Transfer Assistance None Accompanied by daughter Patient Identification Verified (Name & Yes Yes ) Patient Requires Transmission-Based No Precautions Finger Stick Blood Sugar(mg/dl) (if 210 indicated): Blood Sugar Done During this Visit Height and Weight Height 4 ft 11 in Weight 44.452 kg Weight in Pounds 98.0 lbs Weight Measurement Method Estimated by Patient Body Mass Index (BMI) 19.8 19.8 BMI Classification Normal Normal Vital Signs Temperature (97.8 F-99.1 F) 98.0 F 97.8 F Temperature Source Temporal Temporal Pulse Rate (60-100) 106 H 100 Pulse Location Monitor Monitor Respiratory Rate (12-18) 18 16 Respiratory rate source Observation Observation Oxygen Delivery Method Room Air Room Air Blood Pressure (90/60-120/80) 121/67 H 121/57 H Blood Pressure Mean (mm Hg) 85 78 Source Monitor Monitor Position Semi-Fowlers Sitting Blood Pressure Location Left Arm Right Arm History Since Last Visit- (Skip if this is Patient's initial visit) Have you changed medications since your No last visit? Any new allergies or adverse reactions No Had a fall/change in ADL's that may No increase risk of falls Signs or symptoms of abuse and/or No neglect since last visit Have you been in the hospital since your No last visit? Has dressing in place as prescribed Yes Left Footwear Surgical Shoe Regular Shoe with pressure relief insole Right Footwear Regular Shoe Surgical Shoe with pressure relief insole Pain Scale: 0-10 Numeric Is Patient Pain Free? Yes Yes - Nurse 1 - General Ulcer Measurement Start: 10/07/24 14:23 Freq: Status: Active Protocol: Activity Type Activity Date Activity User E-sign Co-sign Detail Recorded Client Recorded Date Recorded By Document 10/07/24 14:33 [id number] 10/07/24 14:37 Document 10/14/24 14:11 [facility] [id number] 10/14/24 14:16 [facility] 10/07/24 10/14/24 14:33 14:11 Wound Center Nurse 1 #3 LT LAT FT -Combined with other wound No -Current Size (cm) - Length 1.5 1 -Current Size (cm) - Width 1 1.3 -Current Size (cm) - Depth 0.3 0.2 -Total Square Cm 1.5 1.3 -Date of Last Picture (Recall this 10/07/24 10/14/24 field) -Photo Taken Yes -Tunneling No -Undermining/Tunneling No -Circular Undermining No -Exudate Amt Medium Medium -Exudate Type Serosanguineous Serous -Wound Margin Distinct, Distinct, Outline Outline Attached Attached -Granulation Amt Large (67-100%) Large (67-100%) -Granulation Quality [place] -Slough/Fibrin Yes -Necrosis Amt Small (1-33%) -Necrotic Tissue Type Adherent Slough -Texture (Edwina-wound Skin Appearance) Assessed,Callus Assessed,Callus ,Scarring -Moisture (Edwina-wound Skin Appearance) Assessed Assessed -Color (Edwina-wound Skin Appearance) Assessed Assessed -Temperature (Edwina-wound Skin No Abnormality No Abnormality Appearance) (Pt Warm) (Pt Warm) -Tenderness on Palpation (Edwina-wound No No Skin Appearance) -Ulcer Cleansing Soap and Water Rinsed/ Irrigated with Saline -Foul Odor after Cleansing No No -Anesthetic Used 5% Lidocaine 5% Lidocaine Gel Gel WC - Nurse 2 - General Ulcer CM Notes Start: 10/07/24 14:23 Freq: Status: Active Protocol: Activity Type Activity Date Activity User E-sign Co-sign Detail Recorded Client Recorded Date Recorded By Document 10/07/24 14:43 [id number] 10/07/24 14:52 Document 10/14/24 14:51 [id number] 10/14/24 14:54 10/07/24 10/14/24 14:43 14:51 Wound Center Nurse 2 #3 LT LAT FT -Time 14:47 14:51 -Correct Patient Yes Yes -Correct Side, Site, Position Yes Yes -Correct Procedure Yes Yes -Procedure Performed Yes Yes -Type of Procedure Debridement Debridement -Clinical Debridement Subcutaneous Muscle / Fascia -Tissue Removed Subcutaneous Muscle -Post Debridement (cm) - Length 1.4 1.2 -Post Debridement (cm) - Width 1.2 1.5 -Post Debridement (cm) - Depth 0.2 0.3 -Total Square (Post) (cm) 1.68 1.80 -Area of Debridement (cm) - Length 1.4 1.2 -Area of Debridement (cm) - Width 1.2 1.5 -Total Square (Area) (cm) 1.68 1.80 -Tunneling No No -Undermining/Tunneling No No -Circular Undermining No No -Wound/Ulcer Outcome Not Healed Not Healed -Ulcer Cleansing Rinsed/ Rinsed/ Irrigated with Irrigated with Saline Saline -Foul Odor after Cleansing No No -Bioengineered Tissue No No -Bleeding Controlled with Pressure Pressure -Treatment Response Procedure Procedure Tolerated Well Tolerated Well -Offloading Yes -Type of Offloading Surgical Shoe -Debridement - Subq, 1st 20sq cm Yes -Debridement - Muscle / Fascia, 1st Yes 20sq cm Pain Scale: 0-10 Numeric Is Patient Pain Free? Yes Yes - Nurse 3 - General Ulcer D/C NN Start: 10/07/24 14:23 Freq: Status: Active Protocol: Activity Type Activity Date Activity User E-sign Co-sign Detail Recorded Client Recorded Date Recorded By Document 10/07/24 15:09 [id number] 10/07/24 15:09 Document 10/14/24 15:00 [id number] 10/14/24 15:01 10/07/24 10/14/24 15:09 15:00 Wound Care Center Nurse 3 #3 LT LAT FT -Ulcer Cleansing Not Cleansed -Foul Odor after Cleansing No -Primary Dressing Applied AMD Dressing AMD Dressing 4x4 4x4 -Primary Dressing Covered/Secured with Dry Gauze & Dry Gauze,Dry Roll Gauze, Gauze & Roll Secured with Gauze,Secured Tape with Tape -AMD Dressing 4x4 1 1 Pain Scale: 0-10 Numeric Is Patient Pain Free? Yes Yes - Visit Discharge Discharge Condition Stable Stable Ambulatory Status Ambulatory,Cane Ambulatory,Cane Transportation Private Auto Private Auto Medication Reconcilliation completed & No provided to patient/care provider Clinical Summary of Care Provided Yes Assessment/Plan Assessment/Plan (1) Non-pressure chronic ulcer of other part of left foot with necrosis of muscle: CODE(S): L97.523 - Non-pressure chronic ulcer of other part of left foot with necrosis of muscle PLAN: Patient was examined and evaluated. All findings were discussed with the patient. All questions were answered to the patient's satisfaction. Excisional debridement down to including subcutaneous tissue, fascia and muscle with a number 3 mm dermal curette to the left subfifth metatarsal head ulceration without incident. Predebridement measurement was 1.1 x 1.2 x 0.1 cm. Postdebridement measurement is 1.2 x 1.5 x 0.3 cm. The left foot was wiped clean and patted dry. AMD pad was applied followed by dry sterile dressing and light compression wrap. Offloading pad was inserted into the patient's surgical shoe and will change the dressing daily to every other day. Educated patient continue strict blood sugar control. Which she is understanding of. Patient will continue her doxycycline and Augmentin as prescribed. I did discuss further with the patient that I do recommend surgical intervention and MIS dorsiflexor osteotomy fifth metatarsal head to help heal and stabilize her wound. She will consider if there is delayed in wound healing. Patient will follow-up in Dr. Otoole in 1 week (2) Chronic painful diabetic polyneuropathy: CODE(S): E11.42 - Type 2 diabetes mellitus with diabetic polyneuropathy
== END 2024-10-15 23:59 | disposition home or self-care (01) ==
LOC: WC 14:15
PROVIDERS: PCP Family Medicine; Referring Provider Family Medicine; Visit Provider Podiatrist Foot & Ankle Surgery
DX: E11.621 Type 2 diabetes mellitus with foot ulcer (principal); L97.523 Non-pressure chronic ulcer of other part of left foot with necrosis of muscle; L97.522 Non-pressure chronic ulcer of other part of left foot with fat layer exposed; Z89.511 Acquired absence of right leg below knee; E11.42 Type 2 diabetes mellitus with diabetic polyneuropathy; F17.200 Nicotine dependence, unspecified, uncomplicated
CPT/HCPCS: 11042; 11043; 87070; 87077; 87186; 87205; 99214; G0463

== ENCOUNTER 2024-11-11 13:45 | Outpatient (RCR) | payer MEDICARE, MEDICAID, SELFPAY ==
[2024-10-21 13:10] VITALS: BP 127/64; PULSE 106; RESP 16; TEMP 36.1
--- NOTE | 2024-10-21 13:56 | PCM.WC.PN ---
History of Present Illness Date of Service: 10/21/24 Chief Complaint: R BKA stump wound History of Wound: Arianna Jerry is a 57 y/o female who presents to the wound healing center today for management of a right BKA stump wound. She is accompanied to the appointment today by her daughter who helps to supplement her history and also helps with her wound care. 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 At that time, they explored and washed out proximally in her thigh as well. Subsequently she initially had wound vac placed prior to secondary closure. She reports that the amputation site did ultimately heal fully and she was able to obtain a prosthetic. She had been doing very well with her prosthetic and getting back to work etc. Unfortunately about 1-2 months ago she developed a wound on her amputation stump due to the prosthetic rubbing in this area. She presented to the [facility] ER on 02/26/23 with concern of infection. She was admitted from 02/26-03/01 for IV antibiotics. Wound cultures were positive for staph aureus, blood cultures were negative. She was evaluated by orthopedics at that time as well. XR and CT scan performed during that admission were negative for signs of osteomyelitis. She was discharged with a course of Bactrim and referral here. At home, they have been doing daily dressing changes with iodoform and dry gauze dressing. Her daughter reports it has made significant improvement since her hospital stay. Progress of Wound: Full-thickness wound subfifth metatarsal head left foot Subjective Subjective Patient is a 59-year-old female presenting to wound care center today follow-up evaluation of full-thickness wound to the left foot at the level of the subfifth metatarsal head. Patient has been compliant with dressing changes. She is wearing a surgical shoe and offloading pad. She does daily dressing changes as discussed. She still smokes even though that she knows she should quit. She denies trauma. Denies constitutional symptoms. Blood sugars well-controlled. No other pedal complaints at this time. Objective Data Objective Data Vital Signs: Vital Signs Temp Pulse Resp BP 97 F L 106 H 16 127/64 H 10/21/24 13:10 10/21/24 13:10 10/21/24 13:10 10/21/24 13:10 Lab / Micro Data Micro: Microbiology 10/08/24 10:25 Wound - Left Foot Gram Stain - Final 10/08/24 10:25 Wound - Left Foot Wound Culture - Final Meth. resistant Staph. aureus Streptococcus agalactiae (B) Physical Exam Narrative Vascular: DP and PT pulses are palpable to the left lower extremity. CFT is brisk. Skin temperature gradient is warm to warm from proximal ankles to distal digits of the left lower extremity. No increase in focal warmth or erythema is appreciated to the left lower extremity. Neurological: Light touch is intact. Protective sensation is diminished. Dermatological: Evidence of full-thickness wound appreciated the subfifth metatarsal head measuring 1.5 x 1.2 x 0.5 cm. Positive probe to bone. Excisional debridement down to including subcutaneous tissue, fascia and muscle and bone with a number 3 mm dermal curette to the left subfifth metatarsal head ulceration without incident. Predebridement measurement was 1.3 x 1.0 x 0.3 cm. Postdebridement measurement is 1.5 x 1.2 x 0.5 cm. Musculoskeletal: Muscle strength 5 out of 5 in all quadrants to the left lower extremity. Cavus foot deformity is appreciated. Mild varus/supination deformity appreciated to the left foot when at rest. No pain on palpation to full-thickness wound left foot. Debridement Note Debridement Note Debridement Free Text: Excisional debridement down to including subcutaneous tissue, fascia and muscle and bone with a number 3 mm dermal curette to the left subfifth metatarsal head ulceration without incident. Predebridement measurement was 1.3 x 1.0 x 0.3 cm. Postdebridement measurement is 1.5 x 1.2 x 0.5 cm. Post-Debridement Measurements and Additional Note: Post-Debridement Measurements/Treatment - Nurse 1 - General Ulcer Assessment Start: 10/21/24 13:08 Freq: Status: Active Protocol: SUE.CELESTE Activity Type Activity Date Activity User E-sign Co-sign Detail Recorded Client Recorded Date Recorded By Document 10/21/24 13:10 JOSELIN [id number] 10/21/24 13:15 DL 10/21/24 13:10 - Today's Visit Information Type of service Follow-up Visit (Physician/[employer] ) Arrival Mode Ambulatory Transfer Assistance None Patient Identification Verified (Name & Yes ) Patient Requires Transmission-Based No Precautions Vital Signs Temperature (97.8 F-99.1 F) 97 F L Temperature Source Temporal Pulse Rate (60-100) 106 H Respiratory Rate (12-18) 16 Respiratory rate source Observation Blood Pressure (90/60-120/80) 127/64 H Blood Pressure Mean (mm Hg) 85 Source Monitor History Since Last Visit- (Skip if this is Patient's initial visit) Have you changed medications since your No last visit? Any new allergies or adverse reactions No Had a fall/change in ADL's that may No increase risk of falls Signs or symptoms of abuse and/or No neglect since last visit Have you been in the hospital since your No last visit? Has dressing in place as prescribed Yes Has compression in place as prescribed Yes Has offloadiing in place as prescribed N/A Experienced any changes in pain level or No management Pain Scale: 0-10 Numeric Is Patient Pain Free? Yes WC - Nurse 1 - General Ulcer Measurement Start: 10/21/24 13:08 Freq: Status: Active Protocol: Activity Type Activity Date Activity User E-sign Co-sign Detail Recorded Client Recorded Date Recorded By Document 10/21/24 13:10 DL [id number] 10/21/24 13:15 DL 10/21/24 13:10 Wound Center Nurse 1 #3 LT LAT FT -Current Size (cm) - Length 1.1 -Current Size (cm) - Width 1.3 -Current Size (cm) - Depth 0.2 -Total Square Cm 1.43 -Exudate Amt Small -Exudate Type Serosanguineous -Wound Margin Distinct, Outline Attached -Granulation Amt Large (67-100%) -Granulation Quality [place] -Necrosis Amt Small (1-33%) -Necrotic Tissue Type Adherent Slough -Structure Exposed N/A -Texture (Edwina-wound Skin Appearance) Scarring -Moisture (Edwina-wound Skin Appearance) No Abnormality -Color (Edwina-wound Skin Appearance) No Abnormality -Temperature (Edwina-wound Skin No Abnormality Appearance) (Pt Warm) -Ulcer Cleansing Rinsed/ Irrigated with Saline -Foul Odor after Cleansing No -Anesthetic Used 5% Lidocaine Gel -Wound Comment(s) Started ATB as ordered. SUE - Nurse 2 - General Ulcer CM Notes Start: 10/21/24 13:08 Freq: Status: Active Protocol: Activity Type Activity Date Activity User E-sign Co-sign Detail Recorded Client Recorded Date Recorded By Document 10/21/24 13:29 [id number] 10/21/24 13:30 JF 10/21/24 13:29 Wound Center Nurse 2 -Time 13:29 -Correct Patient Yes -Correct Side, Site, Position Yes -Correct Procedure Yes -Procedure Performed Yes -Type of Procedure Debridement -Clinical Debridement Bone -Tissue Removed Non-viable tissue -Post Debridement (cm) - Length 1.5 -Post Debridement (cm) - Width 1.2 -Post Debridement (cm) - Depth 0.5 -Total Square (Post) (cm) 1.80 -Area of Debridement (cm) - Length 1.5 -Area of Debridement (cm) - Width 1.2 -Total Square (Area) (cm) 1.80 -Tunneling No -Undermining/Tunneling No -Circular Undermining No -Wound/Ulcer Outcome Not Healed -Ulcer Cleansing Rinsed/ Irrigated with Saline -Foul Odor after Cleansing No -Bioengineered Tissue No -Bleeding Controlled with Pressure -Treatment Response Procedure Tolerated Well -Offloading Yes -Type of Offloading Surgical Shoe -Debridement - Bone, 1st 20sq cm Yes Pain Scale: 0-10 Numeric Is Patient Pain Free? Yes WC - Nurse 3 - General Ulcer D/C NN Start: 10/21/24 13:08 Freq: Status: Active Protocol: Activity Type Activity Date Activity User E-sign Co-sign Detail Recorded Client Recorded Date Recorded By Document 10/21/24 13:38 ML [id number] 10/21/24 13:39 ML 10/21/24 13:38 Wound Care Center Nurse 3 #3 LT LAT FT -Ulcer Cleansing Rinsed/ Irrigated with Saline -Other Dressing betadine soaked gauze -Primary Dressing Covered/Secured with Dry Gauze & Roll Gauze, Secured with Tape Pain Scale: 0-10 Numeric Is Patient Pain Free? Yes Assessment/Plan Assessment/Plan (1) Non-pressure chronic ulcer of other part of left foot with necrosis of bone: CODE(S): L97.524 - Non-pressure chronic ulcer of other part of left foot with necrosis of bone PLAN: Patient was examined and evaluated. All findings were discussed with the patient. All questions were answered to the patient's satisfaction. Excisional debridement down to including subcutaneous tissue, fascia and muscle and bone with a number 3 mm dermal curette to the left subfifth metatarsal head ulceration without incident. Predebridement measurement was 1.3 x 1.0 x 0.3 cm. Postdebridement measurement is 1.5 x 1.2 x 0.5 cm. After debridement the patient does have evidence of positive probe to bone. Educated patient the need to move forward with surgical intervention to remove the possible infected bone to the left foot which she is understanding of. I told the patient that she needs to follow-up with primary to get medically cleared to go under general anesthesia which she is understanding about. We will begin authorization to the patient's insurance to move forward with incision of bone cortex with delayed primary closure to the left foot at the level of the subfifth metatarsal head as well as the full-thickness wound. All risk and benefits have been discussed with patient great detail. And she is understanding the need to move forward with surgical intervention. Patient will follow-up in Dr. Otoole in 1 week (2) Chronic painful diabetic polyneuropathy: CODE(S): E11.42 - Type 2 diabetes mellitus with diabetic polyneuropathy
[2024-11-04 13:33] VITALS: BP 90/55; PULSE 102; RESP 15; TEMP 36.7
--- NOTE | 2024-11-04 14:15 | WC ---
PHOTO-LEFT LATERAL FOOT 11/04/24
--- NOTE | 2024-11-04 14:29 | PN.PCM_ITS ---
History of Present Illness Date of Service: 11/04/24 Chief Complaint: R BKA stump wound History of Wound: Arianna Jerry is a 57 y/o female who presents to the wound healing center today for management of a right BKA stump wound. She is accompanied to the appointment today by her daughter who helps to supplement her history and also helps with her wound care. 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 At that time, they explored and washed out proximally in her thigh as well. Subsequently she initially had wound vac placed prior to secondary closure. She reports that the amputation site did ultimately heal fully and she was able to obtain a prosthetic. She had been doing very well with her prosthetic and getting back to work etc. Unfortunately about 1-2 months ago she developed a wound on her amputation stump due to the prosthetic rubbing in this area. She presented to the [facility] ER on 02/26/23 with concern of infection. She was admitted from 02/26-03/01 for IV antibiotics. Wound cultures were positive for staph aureus, blood cultures were negative. She was evaluated by orthopedics at that time as well. XR and CT scan performed during that admission were negative for signs of osteomyelitis. She was discharged with a course of Bactrim and referral here. At home, they have been doing daily dressing changes with iodoform and dry gauze dressing. Her daughter reports it has made significant improvement since her hospital stay. Progress of Wound: Full-thickness wound subfifth metatarsal head left foot Subjective Subjective Patient is a 59-year-old diabetic female presented to wound care center today for follow-up evaluation of full-thickness wound to the subfifth metatarsal head to the left lower extremity. Patient has been compliant with dressing changes and applied Betadine paint sterile gauze to the left lower extremity. She admits that her blood sugar has improved and her last A1c was 7.5%. She has decreased her smoking but still smokes. She understands need to move forward with surgery and is planning to have surgery on December 04 at [facility]. She denies any trauma. She does have history of below-knee amputation to the right lower extremity. Denies constitutional symptoms. No other pedal complaints at this time. Objective Data Objective Data Vital Signs: Vital Signs Temp Pulse Resp BP 98.0 F 102 H 15 90/55 L 11/04/24 13:33 11/04/24 13:33 11/04/24 13:33 11/04/24 13:33 Lab / Micro Data Micro: Microbiology 10/08/24 10:25 Wound - Left Foot Gram Stain - Final 10/08/24 10:25 Wound - Left Foot Wound Culture - Final Meth. resistant Staph. aureus Streptococcus agalactiae (B) Physical Exam Narrative Vascular: DP and PT pulses are palpable to the left lower extremity. CFT is brisk. Skin temperature gradient is warm to warm from proximal ankles to distal digits of the left lower extremity. No increase in focal warmth or erythema is appreciated to the left lower extremity. Neurological: Light touch is intact. Protective sensation is diminished. Dermatological: Evidence of full-thickness wound appreciated the subfifth metatarsal head measuring 1.3 x 1.2 x 0.6 cm. Positive probe to bone. Excisional debridement down to including subcutaneous tissue, fascia and muscle and bone with a number 3 mm dermal curette to the left subfifth metatarsal head ulceration without incident. Predebridement measurement was 1.1 x 0.9 x 0.2 cm. Postdebridement measurement is 1.3 x 1.2 x 0.6 cm. Musculoskeletal: Muscle strength 5 out of 5 in all quadrants to the left lower extremity. Cavus foot deformity is appreciated. Mild varus/supination deformity appreciated to the left foot when at rest. No pain on palpation to full-thickness wound left foot. Debridement Note Debridement Note Debridement Free Text: Excisional debridement down to including subcutaneous tissue, fascia and muscle and bone with a number 3 mm dermal curette to the left subfifth metatarsal head ulceration without incident. Predebridement measurement was 1.1 x 0.9 x 0.2 cm. Postdebridement measurement is 1.3 x 1.2 x 0.6 cm. Post-Debridement Measurements and Additional Note: Post-Debridement Measurements/Treatment WC - Nurse 1 - General Ulcer Assessment Start: 10/21/24 13:08 Freq: Status: Active Protocol: SUE.LOWEXT Activity Type Activity Date Activity User E-sign Co-sign Detail Recorded Client Recorded Date Recorded By Document 10/21/24 13:10 DL [id number] 10/21/24 13:15 DL Document 11/04/24 13:33 ML [id number] 11/04/24 13:36 ML 10/21/24 11/04/24 13:10 13:33 WC - Today's Visit Information Type of service Follow-up Visit Follow-up Visit (Physician/[employer] (Physician/[employer] ) ) Arrival Mode Ambulatory Ambulatory Transfer Assistance None None Patient Identification Verified (Name & Yes Yes ) Patient Requires Transmission-Based No No Precautions Vital Signs Temperature (97.8 F-99.1 F) 97 F L 98.0 F Temperature Source Temporal Temporal Pulse Rate (60-100) 106 H 102 H Pulse Location Monitor Respiratory Rate (12-18) 16 15 Respiratory rate source Observation Observation Blood Pressure (90/60-120/80) 127/64 H 90/55 L Blood Pressure Mean (mm Hg) 85 66 Source Monitor Monitor Position Sitting Blood Pressure Location Left Arm History Since Last Visit- (Skip if this is Patient's initial visit) Have you changed medications since your No No last visit? Any new allergies or adverse reactions No No Had a fall/change in ADL's that may No No increase risk of falls Signs or symptoms of abuse and/or No No neglect since last visit Have you been in the hospital since your No No last visit? Has dressing in place as prescribed Yes Yes Has compression in place as prescribed Yes Yes Has offloadiing in place as prescribed N/A N/A Experienced any changes in pain level or No No management Pain Scale: 0-10 Numeric Is Patient Pain Free? Yes Yes - Nurse 1 - General Ulcer Measurement Start: 10/21/24 13:08 Freq: Status: Active Protocol: Activity Type Activity Date Activity User E-sign Co-sign Detail Recorded Client Recorded Date Recorded By Document 10/21/24 13:10 DL [id number] 10/21/24 13:15 DL Document 11/04/24 13:33 ML [id number] 11/04/24 13:36 ML 10/21/24 11/04/24 13:10 13:33 Wound Center Nurse 1 #3 LT LAT FT -Current Size (cm) - Length 1.1 0.5 -Current Size (cm) - Width 1.3 0.5 -Current Size (cm) - Depth 0.2 0.3 -Total Square Cm 1.43 0.25 -Exudate Amt Small None Present -Exudate Type Serosanguineous Serosanguineous -Wound Margin Distinct, Outline Attached -Granulation Amt Large (67-100%) -Granulation Quality [place] -Necrosis Amt Small (1-33%) -Necrotic Tissue Type Adherent Slough Adherent Slough -Structure Exposed N/A -Texture (Edwina-wound Skin Appearance) Scarring Assessed -Moisture (Edwina-wound Skin Appearance) No Abnormality -Color (Edwina-wound Skin Appearance) No Abnormality Assessed -Temperature (Edwina-wound Skin No Abnormality No Abnormality Appearance) (Pt Warm) (Pt Warm) -Tenderness on Palpation (Edwina-wound No Skin Appearance) -Ulcer Cleansing Rinsed/ Soap and Water Irrigated with Saline -Foul Odor after Cleansing No No -Anesthetic Used 5% Lidocaine 5% Lidocaine Gel Gel -Wound Comment(s) Started ATB as ordered. WC - Nurse 2 - General Ulcer CM Notes Start: 10/21/24 13:08 Freq: Status: Active Protocol: Activity Type Activity Date Activity User E-sign Co-sign Detail Recorded Client Recorded Date Recorded By Document 10/21/24 13:29 [id number] 10/21/24 13:30 Document 11/04/24 14:10 DS [id number] 11/04/24 14:13 DS 10/21/24 11/04/24 13:29 14:10 Wound Center Nurse 2 #3 LT LAT FT -Time 13:29 14:10 -Correct Patient Yes Yes -Correct Side, Site, Position Yes Yes -Correct Procedure Yes Yes -Procedure Performed Yes Yes -Type of Procedure Debridement Debridement -Clinical Debridement Bone Bone -Tissue Removed Non-viable Muscle,Fascia tissue -Post Debridement (cm) - Length 1.5 1.3 -Post Debridement (cm) - Width 1.2 1.2 -Post Debridement (cm) - Depth 0.5 0.6 -Total Square (Post) (cm) 1.80 1.56 -Area of Debridement (cm) - Length 1.5 1.3 -Area of Debridement (cm) - Width 1.2 1.2 -Total Square (Area) (cm) 1.80 1.56 -Tunneling No No -Undermining/Tunneling No No -Circular Undermining No No -Wound/Ulcer Outcome Not Healed Not Healed -Ulcer Cleansing Rinsed/ Rinsed/ Irrigated with Irrigated with Saline Saline -Foul Odor after Cleansing No No -Bioengineered Tissue No No -Bleeding Controlled with Pressure Pressure -Treatment Response Procedure Procedure Tolerated Well Tolerated Well -Offloading Yes -Type of Offloading Surgical Shoe -Debridement - Bone, 1st 20sq cm Yes Yes Pain Scale: 0-10 Numeric Is Patient Pain Free? Yes Yes WC - Nurse 3 - General Ulcer D/C NN Start: 10/21/24 13:08 Freq: Status: Active Protocol: Activity Type Activity Date Activity User E-sign Co-sign Detail Recorded Client Recorded Date Recorded By Document 10/21/24 13:38 ML [id number] 10/21/24 13:39 ML 10/21/24 13:38 Wound Care Center Nurse 3 #3 LT LAT FT -Ulcer Cleansing Rinsed/ Irrigated with Saline -Other Dressing betadine soaked gauze -Primary Dressing Covered/Secured with Dry Gauze & Roll Gauze, Secured with Tape Pain Scale: 0-10 Numeric Is Patient Pain Free? Yes Assessment/Plan Assessment/Plan (1) Non-pressure chronic ulcer of other part of left foot with necrosis of bone: CODE(S): L97.524 - Non-pressure chronic ulcer of other part of left foot with necrosis of bone PLAN: Patient was examined and evaluated. All findings were discussed with the patient. All questions were answered to the patient's satisfaction. Excisional debridement down to including subcutaneous tissue, fascia and muscle and bone with a number 3 mm dermal curette to the left subfifth metatarsal head ulceration without incident. Predebridement measurement was 1.1 x 0.9 x 0.2 cm. Postdebridement measurement is 1.3 x 1.2 x 0.6 cm. The left foot was wiped clean and patted dry. Betadine paint dry sterile dressing followed by compression wrap was donned to the left lower extremity. Patient is now understanding the need to move forward with surgery and will be following up with her primary care for medical clearance. Plan will be either minimally invasive or complete removal of the metatarsal head. This will be based on if the full-thickness wound heals by the time surgery comes around which she was understanding of. Patient will continue daily dressing changes and continue strict blood sugar control. Patient educated on smoking cessation. Patient will follow-up in Dr. Otoole in 1 week (2) Chronic painful diabetic polyneuropathy: CODE(S): E11.42 - Type 2 diabetes mellitus with diabetic polyneuropathy
[2024-11-11 13:54] VITALS: BP 133/69; PULSE 104; RESP 16; TEMP 36.6
--- NOTE | 2024-11-11 14:17 | PN.PCM_ITS ---
History of Present Illness Date of Service: 11/11/24 Chief Complaint: R BKA stump wound History of Wound: Arianna Jerry is a 57 y/o female who presents to the wound healing center today for management of a right BKA stump wound. She is accompanied to the appointment today by her daughter who helps to supplement her history and also helps with her wound care. 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 At that time, they explored and washed out proximally in her thigh as well. Subsequently she initially had wound vac placed prior to secondary closure. She reports that the amputation site did ultimately heal fully and she was able to obtain a prosthetic. She had been doing very well with her prosthetic and getting back to work etc. Unfortunately about 1-2 months ago she developed a wound on her amputation stump due to the prosthetic rubbing in this area. She presented to the [facility] ER on 02/26/23 with concern of infection. She was admitted from 02/26-03/01 for IV antibiotics. Wound cultures were positive for staph aureus, blood cultures were negative. She was evaluated by orthopedics at that time as well. XR and CT scan performed during that admission were negative for signs of osteomyelitis. She was discharged with a course of Bactrim and referral here. At home, they have been doing daily dressing changes with iodoform and dry gauze dressing. Her daughter reports it has made significant improvement since her hospital stay. Progress of Wound: Full-thickness wound subfifth metatarsal head left foot Subjective Subjective Patient is a 59-year-old diabetic female presenting to the wound care center today for follow-up evaluation of full-thickness wound to the lateral subfifth metatarsal head of the left foot. Patient has been compliant with dressing changes. She understands the need to move forward with surgical intervention and states that she is ready move forward to remove the bone for concerns of bone infection and help heal or possibly close the full-thickness wound that has been present for greater than few months. Her blood sugars well-controlled. She is decreasing her smoking. She does have history of below-knee amputation to right lower extremity. She is scared and worried that she is at risk for losing the left leg. She denies trauma. Denies constitutional symptoms. No other pedal complaints at this time. Objective Data Objective Data Vital Signs: Vital Signs Temp Pulse Resp BP 97.8 F 104 H 16 133/69 H 11/11/24 13:54 11/11/24 13:54 11/11/24 13:54 11/11/24 13:54 Lab / Micro Data Micro: Microbiology 10/08/24 10:25 Wound - Left Foot Gram Stain - Final 10/08/24 10:25 Wound - Left Foot Wound Culture - Final Meth. resistant Staph. aureus Streptococcus agalactiae (B) Physical Exam Narrative Vascular: DP and PT pulses are palpable to the left lower extremity. CFT is brisk. Skin temperature gradient is warm to warm from proximal ankles to distal digits of the left lower extremity. No increase in focal warmth or erythema is appreciated to the left lower extremity. Blanchable erythema to the periwound. Neurological: Light touch is intact. Protective sensation is diminished. Dermatological: Evidence of full-thickness wound appreciated the subfifth metatarsal head measuring 1.5 x 1.3 x 0.3 cm. Positive probe to bone. Blanchable erythema to the periwound. Excisional debridement down to including subcutaneous tissue, fascia and muscle and bone with a number 3 mm dermal curette to the left subfifth metatarsal head ulceration without incident. Predebridement measurement was 1.3 x 1.1 x 0.2 cm. Postdebridement measurement is 1.5 x 1.3 x 0.3 cm. Musculoskeletal: Muscle strength 5 out of 5 in all quadrants to the left lower extremity. Cavus foot deformity is appreciated. Mild varus/supination deformity appreciated to the left foot when at rest. No pain on palpation to full-thickness wound left foot. Debridement Note Debridement Note Debridement Free Text: Excisional debridement down to including subcutaneous tissue, fascia and muscle and bone with a number 3 mm dermal curette to the left subfifth metatarsal head ulceration without incident. Predebridement measurement was 1.3 x 1.1 x 0.2 cm. Postdebridement measurement is 1.5 x 1.3 x 0.3 cm. 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/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 (Physician/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 (Physician/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 ) ) ) Arrival Mode Ambulatory Ambulatory Ambulatory,Cane Transfer Assistance None None None Patient Identification Verified (Name & Yes Yes Yes ) Patient Requires Transmission-Based No No No Precautions Vital Signs Temperature (97.8 F-99.1 F) 97 F L 98.0 F 97.8 F Temperature Source Temporal Temporal Temporal Pulse Rate (60-100) 106 H 102 H 104 H Pulse Location Monitor Monitor Respiratory Rate (12-18) 16 15 16 Respiratory rate source Observation Observation Observation Blood Pressure (90/60-120/80) 127/64 H 90/55 L 133/69 H Blood Pressure Mean (mm Hg) 85 66 90 Source Monitor Monitor Monitor Position Sitting Blood Pressure Location Left Arm History Since Last Visit- (Skip if this is Patient's initial visit) Have you changed medications since your No No No last visit? Any new allergies or adverse reactions No No No Had a fall/change in ADL's that may No No No increase risk of falls Signs or symptoms of abuse and/or No No No neglect since last visit Have you been in the hospital since your No No No last visit? Has dressing in place as prescribed Yes Yes Yes Has compression in place as prescribed Yes Yes N/A Has offloadiing in place as prescribed N/A N/A Yes Experienced any changes in pain level or No No management Right Footwear Surgical Shoe with pressure relief insole Pain Scale: 0-10 Numeric Is Patient Pain Free? Yes Yes Yes - Nurse 1 - General Ulcer Measurement Start: 10/21/24 13:08 Freq: Status: Active Protocol: Activity Type Activity Date Activity User E-sign Co-sign Detail Recorded Client Recorded Date Recorded By Document 10/21/24 13:10 DL [id number] 10/21/24 13:15 DL Document 11/04/24 13:33 ML [id number] 11/04/24 13:36 ML Document 11/11/24 13:54 DL [id number] 11/11/24 14:02 DL 10/21/24 11/04/24 11/11/24 13:10 13:33 13:54 Wound Center Nurse 1 #3 LT LAT FT -Current Size (cm) - Length 1.1 0.5 1.3 -Current Size (cm) - Width 1.3 0.5 0.9 -Current Size (cm) - Depth 0.2 0.3 1 -Total Square Cm 1.43 0.25 1.17 -Photo Taken Yes -Exudate Amt Small None Present Medium -Exudate Type Serosanguineous Serosanguineous Serosanguineous -Wound Margin Distinct, Distinct, Outline Outline Attached Attached -Granulation Amt Large (67-100%) None Present (0 %) -Granulation Quality [place] -Necrosis Amt Small (1-33%) Large (67-100%) -Necrotic Tissue Type Adherent Slough Adherent Slough Adherent Slough -Structure Exposed N/A Bone -Texture (Edwina-wound Skin Appearance) Scarring Assessed Callus,Scarring -Moisture (Edwina-wound Skin Appearance) No Abnormality Dry/Scaly -Color (Edwina-wound Skin Appearance) No Abnormality Assessed Hemosiderin Staining -Temperature (Edwina-wound Skin No Abnormality No Abnormality No Abnormality Appearance) (Pt Warm) (Pt Warm) (Pt Warm) -Tenderness on Palpation (Edwina-wound No Skin Appearance) -Ulcer Cleansing Rinsed/ Soap and Water Soap and Water Irrigated with Saline -Foul Odor after Cleansing No No No -Anesthetic Used 5% Lidocaine 5% Lidocaine 5% Lidocaine Gel Gel Gel -Wound Comment(s) Started ATB as Tapping bone ordered. WC - Nurse 2 - General Ulcer CM Notes Start: 10/21/24 13:08 Freq: Status: Active Protocol: Activity Type Activity Date Activity User E-sign Co-sign Detail Recorded Client Recorded Date Recorded By Document 10/21/24 13:29 [id number] 10/21/24 13:30 Document 11/04/24 14:10 DS [id number] 11/04/24 14:13 DS Document 11/11/24 14:06 JF [id number] 11/11/24 14:14 10/21/24 11/04/24 11/11/24 13:29 14:10 14:06 Wound Center Nurse 2 #3 LT LAT FT -Time 13:29 14:10 14:07 -Correct Patient Yes Yes Yes -Correct Side, Site, Position Yes Yes Yes -Correct Procedure Yes Yes Yes -Procedure Performed Yes Yes Yes -Type of Procedure Debridement Debridement Debridement -Clinical Debridement Bone Bone Bone -Tissue Removed Non-viable Muscle,Fascia Non-viable tissue tissue -Post Debridement (cm) - Length 1.5 1.3 1.5 -Post Debridement (cm) - Width 1.2 1.2 1.3 -Post Debridement (cm) - Depth 0.5 0.6 0.3 -Total Square (Post) (cm) 1.80 1.56 1.95 -Area of Debridement (cm) - Length 1.5 1.3 1.5 -Area of Debridement (cm) - Width 1.2 1.2 1.3 -Total Square (Area) (cm) 1.80 1.56 1.95 -Tunneling No No No -Undermining/Tunneling No No No -Circular Undermining No No No -Wound/Ulcer Outcome Not Healed Not Healed Not Healed -Ulcer Cleansing Rinsed/ Rinsed/ Rinsed/ Irrigated with Irrigated with Irrigated with Saline Saline Saline -Foul Odor after Cleansing No No No -Bioengineered Tissue No No No -Bleeding Controlled with Pressure Pressure Pressure -Treatment Response Procedure Procedure Procedure Tolerated Well Tolerated Well Tolerated Well -Offloading Yes Yes -Type of Offloading Surgical Shoe Surgical Shoe -Debridement - Bone, 1st 20sq cm Yes Yes Yes Pain Scale: 0-10 Numeric Is Patient Pain Free? Yes Yes Yes WC - Nurse 3 - General Ulcer D/C NN Start: 10/21/24 13:08 Freq: Status: Active Protocol: Activity Type Activity Date Activity User E-sign Co-sign Detail Recorded Client Recorded Date Recorded By Document 10/21/24 13:38 ML [id number] 10/21/24 13:39 ML Document 11/04/24 14:42 ML [id number] 11/04/24 14:43 ML 10/21/24 11/04/24 13:38 14:42 Wound Care Center Nurse 3 #3 LT LAT FT -Ulcer Cleansing Rinsed/ Rinsed/ Irrigated with Irrigated with Saline Saline -Other Dressing betadine soaked BETADINE SWAB gauze -Primary Dressing Covered/Secured with Dry Gauze & Dry Gauze, Roll Gauze, Secured with Secured with Tape Tape Pain Scale: 0-10 Numeric Is Patient Pain Free? Yes Yes Assessment/Plan Assessment/Plan (1) Non-pressure chronic ulcer of other part of left foot with necrosis of bone: CODE(S): L97.524 - Non-pressure chronic ulcer of other part of left foot with necrosis of bone PLAN: Patient was examined and evaluated. All findings were discussed with the patient. All questions were answered to the patient's satisfaction. Excisional debridement down to including subcutaneous tissue, fascia and muscle and bone with a number 3 mm dermal curette to the left subfifth metatarsal head ulceration without incident. Predebridement measurement was 1.3 x 1.1 x 0.2 cm. Postdebridement measurement is 1.5 x 1.3 x 0.3 cm. The area was flushed and wiped clean and patted dry. Culture was taken and sent off to microbiology for culture and sensitivity. The patient will be placed on doxycycline 100 mg twice daily due to concern for mild cellulitis to the left foot. The area was dressed with Betadine soaked gauze dry sterile dressing compression wrap. Patient to perform daily dressing changes. I educated patient that when she follows up again in 1 week if she is worse she will be admitted to the hospital and we will perform surgery faster as an inpatient then as an outpatient on 12/04/2024. Chart reviewed consent signed. All risk and benefits were discussed with patient great detail. We move forward with incision bone cortex, possible delayed primary closure versus skin graft substitute to the left foot full- thickness wound. Patient will follow-up in Dr. Otoole in 1 week (2) Chronic painful diabetic polyneuropathy: CODE(S): E11.42 - Type 2 diabetes mellitus with diabetic polyneuropathy
--- NOTE | 2024-11-12 08:40 | WC ---
PHOTO-LEFT LATERAL FOOT 11/11/24
== END 2024-11-15 23:59 | disposition home or self-care (01) ==
LOC: WC 13:45
PROVIDERS: PCP Family Medicine; Referring Provider Family Medicine; Visit Provider Podiatrist Foot & Ankle Surgery
DX: E11.621 Type 2 diabetes mellitus with foot ulcer (principal); L97.524 Non-pressure chronic ulcer of other part of left foot with necrosis of bone; Z89.511 Acquired absence of right leg below knee; E11.42 Type 2 diabetes mellitus with diabetic polyneuropathy; F17.200 Nicotine dependence, unspecified, uncomplicated
CPT/HCPCS: 11044; 87070; 87075; 87077; 87186; 87205

== ENCOUNTER 2024-12-04 07:29 | Day surgery (SDC) | payer MEDICARE, SELFPAY ==
--- NOTE | 2024-11-20 16:46 | PAT.ANE_ITS ---
Pre-Assessment Diagnosis/Proposed Procedure Planned Operative Procedure(s): INCISION OF THE BONE CORTEX OF THE LEFT FIFTH METATARSAL WITH DELAYED PRIMARY CLOSURE SKIN GRAFT SITE PREP Anesthesia History Anesthesia History - director emergency: Anesthesia History - director emergency Hx Hospitalization No 11/20/24 15:15 Any Problems With Anesthesia No 11/20/24 15:15 Cholinesterase deficiency No 11/20/24 15:15 You/Your Family Experience No 11/20/24 15:15 fever (hyperthermia) with Relationship Recent Exposure to Contagious No 07/27/24 11:37 Disease Does patient have nerve No 11/20/24 15:15 stimulator Patient instructed to have device shut off --Does patient have Pacemaker or ICD? When Was Last Pacemaker Check QUESTION #4 FULL TEXT: You/Your Family Experience fever (hyperthermia) with Anesthesia Last Oral Intake Last Oral intake: Last Oral Intake NPO since Meds taken in AM with sips of water? 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 - director emergency: PONV - director emergency Female Yes 11/20/24 15:15 HX of Motion Sickness No 11/20/24 15:15 HX of N/V After Surgery No 11/20/24 15:15 Non-Smoker No 11/20/24 15:15 Duration of Surgery greater Yes 11/20/24 15:15 than 60 minutes Number of Risk Factors 2 11/20/24 15:15 PONV Score Moderate Risk 11/20/24 15:15 Height & Weight Height & Weight: Anesthesia: Height & Weight Height 4 ft 11 in 11/04/24 11:45 Respiratory Assessment Respiratory Assessment - director emergency: Respiratory Tract Infection Hx - director emergency Hx Respiratory Tract Infection No 11/20/24 15:15 STOP Sleep Apnea STOP Sleep Apnea - director emergency: STOP Sleep Apnea - director emergency Hx Hypertension No 11/20/24 15:15 Hx Sleep Apnea No 11/20/24 15:15 CPAP No 07/27/24 11:37 BIPAP Do you snore loudly (louder No 11/20/24 15:15 than talking or can be heard Do you often feel tired/ No 11/20/24 15:15 fatigued/ sleepy during daytime? Has anyone observed you stop No 11/20/24 15:15 breathing during sleep? STOP Results Negative 11/20/24 15:15 QUESTION #5 FULL TEXT : Do you snore loudly (louder than talking or can be heard through closed doors)? 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 Specify any problems Hx of Preganancy in last 3 No 11/20/24 15:15 Months Nurse Filling Out Transfusion DSCHRIBER 11/20/24 15:15 & Questions: Date: 11/20/24 11/20/24 15:15 Time: 15:18 11/20/24 15:15 Patient unable to answer at this time (ie. confused, unrespo /Reproduction History /Reproductive History - director emergency: /Reproductive Hx- director emergency Hx Now No 11/20/24 15:15 Gestational Age (in weeks): EDC: Hx Hx Para Hx Section SAB No 11/20/24 15:15 PFSH Medical History (Updated 11/20/24 @ 15:27 by Emmy Moya) Wears glasses Insulin dependent diabetes mellitus Ambulates with cane Low iron High cholesterol Dietary restriction Heartburn Cardiology follow-up encounter History of stress test MRSA (methicillin resistant staph aureus) culture positive Smoker Cellulitis and abscess of right lower extremity Sinus tachycardia seen on hospital monitor Below knee amputation Home Medications Medication Instructions Recorded Last Taken Type albuterol sulfate 90 mcg/actuation 2 puff inhalation Q 4H PRN Sob &/Or 10/01/18 Unknown History aerosol inhaler Wheezing atorvastatin 40 mg tablet 40 mg PO QHS cholesterol 03/0902/25/23 History cholecalciferol (vitamin D3) 25 25 mcg PO DAILY supple ment 02/26/23 02/25/23 History mcg (1,000 unit) tablet blood-glucose meter (True Metrix #1 ea 08/19/23 Unknow n Rx Glucose Meter) lisinopril 10 mg tablet 10 mg PO DAILY #30 tabs 07/16 Unknown Rx blood-glucose sensor (Dexcom G7 #3 ea 08/06/24 Unknown Rx Sensor device) pen needle, diabetic 31 gauge x #100 ea 08/28/24 Unkno wn Rx 1/4" (1st Tier Unifine Pentips) True Metrix Glucose Test Strip #50 ea 11/04/24 Unknown Rx (blood sugar diagnostic) ferrous sulfate 325 mg (65 mg 325 mg PO BID supplement 11/04/24 Unknown History iron) tablet (FeroSul) doxycycline monohydrate 100 mg 100 mg PO BID 2 weeks # 28 caps 11/11/24 Unknown Rx capsule aspirin 81 mg tablet,delayed 81 mg PO DAILY 11/20/24 U nknown History release (Adult Aspirin Regimen) blood-glucose sensor (FreeStyle #2 ea 11/20/24 Unknown Rx Tova 3 Plus Sensor device) blood-glucose,natural science curator,cont #1 ea 11/20/24 Unknown Rx (FreeStyle Tova 3 [place]) calcium carbonate 600 mg PO DAILY 11/20/24 Unk nown History insulin glargine 100 unit/mL (3 8 unit subcut DAILY Unknown History mL) subcutaneous pen (Lantus Solostar U-100 Insulin) insulin lispro 100 unit/mL 6 unit subcut BID 11/20/24 Unknown History subcutaneous pen (Humalog KwikPen (U-100) Insulin) insulin lispro 100 unit/mL 8 unit subcut 1500 11/20/24 Unknown History subcutaneous pen (Humalog KwikPen (U-100) Insulin) loperamide 2 mg capsule 2 mg PO Q8 PRN loose stool 0 11/20/24 Unknown History Allergy/AdvReac Type Severity Reaction Status Date / Time No Known Allergies Allergy Verified 11/20/24 15:08 Family History Grandmother Breast cancer Father Heart disease Hypertension Sister Thyroid disorder Aunt Thyroid disorder Other Arthritis CVA (cerebral vascular accident) Kidney disease Myocardial infarction Surgical History (Updated 11/20/24 @ 15:27 by Emmy Moya) Hx of right cataract extraction Hx of left cataract extraction Hx of colonoscopy History of appendectomy Status post below knee amputation of right lower extremity history EGD with dilatation H/O thumb surgery Social History household members: family Smoking Status: Heavy Smoker (>10/day) alcohol intake: never substance use type: does not use what type of physical activity do you participate in: walking Audit: Pertinent Findings Pertinent Findings EKG Perinent findings: October 26, 2024. Normal sinus rhythm. ST and T wave abnormality is no longer seen compared to 07/22/2024. 07/22/2024. Normal sinus rhythm ST and T wave abnormality consider inferior ischemia. ST and T wave abnormality consider anterior lateral ischemia. Stress test pertinent findings: 08/19/2023. No evidence for inducible ischemia. No evidence of scarred myocardium. EF of 88%. Consult pertinent findings: June 29, 2024. Dr. Hayes. 1. Coronary artery [id number] extensive coronary calcification in the setting of normal nuclear stress test and absence of chest pain or shortness of breath. Continue risk factor modification and lifestyle changes. 2. Primary hypertension–controlled. Continue current medications. Sodium restriction diet. Recommendation Anesthesia Recommendation Anesthesia recommendation: OPTIMIZED for anesthesia
--- NOTE | 2024-11-25 16:17 | PAT.ANESEVAL ---
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 When Was Last Pacemaker Check QUESTION #4 FULL TEXT: You/Your Family Experience fever (hyperthermia) with Anesthesia Last Oral Intake Last Oral intake: Last Oral Intake NPO since Meds taken in AM with sips of water? 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 Has anyone observed you stop No 11/20/24 15:15 breathing during sleep? STOP Results Negative 11/20/24 15:15 QUESTION #5 FULL TEXT : Do you snore loudly (louder than talking or can be heard through closed doors)? 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 Specify any problems Hx of Preganancy in last 3 No 11/20/24 15:15 Months Nurse Filling Out Transfusion DSCHRIBER 11/20/24 15:15 & Questions: Date: 11/20/24 11/20/24 15:15 Time: 15:18 11/20/24 15:15 Patient unable to answer at this time (ie. 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 on monitoring engineer Below knee amputation Home Medications Medication Instructions Recorded Last Taken Type albuterol sulfate 90 mcg/actuation 2 puff inhalation Q4H PRN Sob &/Or 10/01/18 Unknown History aerosol inhaler Wheezing atorvastatin 40 mg tablet 40 mg PO QHS cholesterol 02/26/23 02/25/23 History cholecalciferol (vitamin D3) 25 25 mcg PO DAILY supplement 02/26/23 02/25/23 History mcg (1,000 unit) tablet blood-glucose meter (True Metrix #1 ea 08/19/23 Unknown Rx Glucose Meter) lisinopril 10 mg tablet 10 mg PO DAILY #30 tabs 07/25/24 Unknown Rx blood-glucose sensor (Dexcom G7 #3 ea 08/06/24 Unknown Rx Sensor device) pen needle, diabetic 31 gauge x #100 ea 08/28/24 Unknown Rx 1/4" (1st Tier Unifine Pentips) True Metrix Glucose Test Strip #50 ea 11/04/24 Unknown Rx (blood sugar diagnostic) ferrous sulfate 325 mg (65 mg 325 mg PO BID supplement 11/04/24 Unknown History iron) tablet (FeroSul) doxycycline monohydrate 100 mg 100 mg PO BID 2 weeks #28 caps 11/11/24 Unknown Rx capsule aspirin 81 mg tablet,delayed 81 mg PO DAILY 11/20/24 Unknown History release (Adult Aspirin Regimen) blood-glucose sensor (FreeStyle #2 ea 11/20/24 Unknown Rx Tova 3 Plus Sensor device) blood-glucose,senior clinical study manager,cont #1 ea 11/20/24 Unknown Rx (FreeStyle Tova 3 [place]) calcium carbonate 600 mg PO DAILY 11/20/24 Unknown History insulin glargine 100 unit/mL (3 8 unit subcut DAILY 11/20/24 Unknown History mL) subcutaneous pen (Lantus Solostar U-100 Insulin) insulin lispro 100 unit/mL 6 unit subcut BID 11/20/24 Unknown History subcutaneous pen (Humalog KwikPen (U-100) Insulin) insulin lispro 100 unit/mL 8 unit subcut 1500 11/20/24 Unknown History subcutaneous pen (Humalog KwikPen (U-100) Insulin) loperamide 2 mg capsule 2 mg PO Q8 PRN loose stool 11/20/24 Unknown History Allergy/AdvReac Type Severity Reaction Status Date / Time No Known Allergies Allergy Verified 11/20/24 15:08 Family History Grandmother Breast cancer Father Heart disease Hypertension Sister Thyroid disorder Aunt Thyroid disorder Other Arthritis CVA (cerebral vascular accident) Kidney disease Myocardial infarction Surgical History (Updated 11/20/24 @ 15:27 by Emmy Moya) Hx of right cataract extraction Hx of left cataract extraction Hx of colonoscopy History of appendectomy Status post below knee amputation of right lower extremity history EGD with dilatation H/O thumb surgery Social History household members: family Smoking Status: Heavy Smoker (>10/day) alcohol intake: never substance use type: does not use what type of physical activity do you participate in: walking Audit: Pertinent Findings HISTORY of Pertinent Findings History of Pertinent Findings: EKG Pertinent Findings EKG Perinent findings October 26, 2024. Normal 11/20/24 16:[address] and T wave abnormality is no longer seen compared to 07/22/2024. 07/22/2024. Normal sinus rhythm ST and T wave abnormality consider inferior ischemia. ST and T wave abnormality consider anterior lateral ischemia. Stress Test Pertinent Findings Stress test pertinent findings 08/19/2023. No evidence for 11/20/24 16:54 inducible ischemia. No evidence of scarred myocardium. EF of 88%. Consult Pertinent Findings Consult pertinent findings June 29, 2024. Dr. Hayes. 11/20/24 16:54 1. Coronary artery [id number] extensive coronary calcification in the setting of normal nuclear stress test and absence of chest pain or shortness of breath. Continue risk factor modification and lifestyle changes. 2. Primary hypertension– controlled. Continue current medications. Sodium restriction diet. Pertinent Findings EKG Perinent findings: EKG 26 October 2024. Normal sinus rhythm. Additional pertinent findings: H&H 7.7/23.6. Recommendation Anesthesia Recommendation Anesthesia recommendation: OPTIMIZED for anesthesia
[2024-12-04] VITALS (9 sets, daily range): BP systolic 125–153; BP diastolic 51–76; PULSE 82–89; RESP 16; TEMP 36.3–37.1; O2SAT 98–100; BMI 18.8
--- OUTSIDE RECORDS SUMMARY | 2024-12-04 07:43 | XMS RPT_ITS | CCD ---
Author Organization [facility] Care Team Providers Care Emotional Disabilities Teacher Name Role Phone ELENA, SAVANA J Admitting Unavailable ELENA, SAVANA J Attending Unavailable ROBOTHAM, VALENCIA L Primary Care Unavailable ELENA, SAVANA J Admitting Unavailable ELENA, SAVANA J Attending Unavailable ROBOTHAM, VALENCIA L Primary Care Unavailable ELENA, SAVANA J Admitting Unavailable ELENA, SAVANA J Attending Unavailable ROBOTHAM, VALENCIA L Primary Care Unavailable [facility], [facility] Primary Care Pro vider [facility] Referring Provid er SINA Sharif Attending Provider [facility] Primary Care Pro vider [facility] Referring Provid er SINA Sharif Attending Provider Meghan, INDUSTRIAL GAS FITTER HELPER-C Felecia Primary Care Provider [phone] Meghan, INDUSTRIAL GAS FITTER HELPER-C Felecia Referring Provider [phone] Christianson VSC, INDUSTRIAL GAS FITTER HELPER-C Felecia Primary Care Provider Meghan VSC, INDUSTRIAL GAS FITTER HELPER-C Felecia Referring Provider SINA Sharif Attending Provider Dr. Kee Kaye Emergency Provider Dr. Lam Enrqiuez Admit Provider Dr. Lam Enriquez Attending Provider Dr. Lam Enriquez Other Provider Christianson AUTO WASH BUFFER, Felecia K Unavailable [facility], INDUSTRIAL GAS FITTER HELPER-C Felecia Primary Care Provider [phone] [facility], HEIDI-Sole Izquierdo Referring Provider SINA Sharif Attending Provider [facility] Primary Care Pro vider Erica Herman MD Primary Care Provider [facility] Primary Care Pro vider [facility] Referring Provid er SINA Sharif Attending Provider Dr. Adrien Godoy Emergency Provider [phone] Art Herman Primary Care Provider Koram, Dr. Sandie Loera Admit Provider Korjericho, Dr. Sandie Loera Referring Provider Koram, Dr. Sandie Loera Other Provider Dr. Toni Flanagan Attending Provider Dr. Toni Flanagan Other Provider Korjericho, Dr. Sandie Loera Attending Provider FRANK Livingston Attending Provider FRANK Livingston Other Provider [facility] Referring Provid er SINA Sharif Attending Provider Dr. Adrien Godoy Emergency Provider Dr. Art Herman Primary Care Provider Korjerihco, Dr. Sandie Loera Admit Provider Korjericho, Dr. Sandie Loera Referring Provider Korjericho, Dr. Sandie Loera Other Provider Dr. Toni Flanagan Attending Provider Dr. Toni Flanagan Other Provider Koram, Dr. Sandie Loera Attending Provider FRANK Livingston Attending Provider FRANK Livingston Other Provider [facility], Jocelyn Lyles Referring Provid er Kole, SINA Mcgowan Attending Provider Dr. Art eHrman Referring Provider Dr. Adrien Godoy Emergency Provider Dr. Art Herman Primary Care Provider [phone] Iona, Dr. Sandie Loera Admit Provider Iona, Dr. Sandie Loera Other Provider Dr. Toni Flanagan Other Provider Dr. Toni Flanagan Attending Provider Iona, Dr. Sandie Loera Referring Provider Dr. Art Herman Primary Care Provider Erica Herman MD Primary Care Provider Dr. Art Herman Primary Care Provider [phone] FRANK Livingston Attending Provider FRANK Livingston Other Provider Iona, Dr. Sandie Loera Referring Provider ERICA HERMAN Primary Care Unavailab BHARATI Parham Admitting Unavailable BHARATI RIGGS Referring Unavailable BHARATI RIGGS Attending Unavailable BHARATI RIGGS Attending Unavailable ERICA HERMAN Primary Care Unavailab ERICA Rojas Primary Care Unavailab BHARATI Parham Attending Unavailable BHARATI RIGGS Attending Unavailable ERICA HERMAN Primary Care Unavailab BHARATI Parham Attending Unavailable ERICA HERMAN Primary Care Unavailab BHARATI Parham Attending Unavailable Podlogar SECTION MAINTAINER.Sarah MCFARLAND Unavailable Arminda SECTION MAINTAINER.Paige MCFARLAND Unavailable Knoble SECTION MAINTAINER.AUTO WASH BUFFER, Paige Unavailable Maryann PASTRANA, Dr. Cordova Primary Care Provider Maryann PASTRANA, Dr. Cordova Referring Provider Kole INDUSTRIAL GAS FITTER HELPER-CMillie Attending Provider Jared PURCELL, Dr. Cardoza Emergency Provider Timi PURCELL, Dr. Canas Admit Provider Timi PURCELL, Dr. Canas Attending Provider Timi PURCELL, Dr. Canas Other Provider Arminda SECTION MAINTAINER.AUTO WASH BUFFER, Paige Unavailable Kole INDUSTRIAL GAS FITTER HELPER-CMillie Referring Provider Maryann PASTRANA, Dr. Cordova Primary Care Provider Maryann PASTRANA, Dr. Cordova Referring Provider Kole INDUSTRIAL GAS FITTER HELPER-CMillie Attending Provider Xiang DANIELS, Dr. Ashraf Attending Provider ERICA HERMAN Primary Care Unavailab le TESTRAKE, KEDAR Referring Unavailable ERICA HERMAN Primary Care Unavailab le TESTRAKE, KEDAR Referring Unavailable TESTRAKE, KEDAR Attending Unavailable ERICA HERMAN Primary Care Unavailab le ERICA HERMAN Referring Unavailab le SAUL HERMANER Raya Primary Care Unavailab le ERICA HERMAN Attending Unavailab le ERICA HERMAN Primary Care Unavailab le SAUL HERMANER B Referring Unavailab le CARSONLEY, SAULER B Primary Care Unavailab le MARYANN, SAULER B Referring Unavailab le ERICA HERMAN B Primary Care Unavailab le SELF Referring Unavailable ERICA HERMAN Attending Unavailab le ERICA HERMAN Primary Care Unavailab le TESTRAKE, KEDAR Referring Unavailable ERICA HERMAN Primary Care Unavailab le TESTRAKE, KEDAR Attending Unavailable ERICA HERMAN Primary Care Unavailab le TESTRAKE, KEDAR Attending Unavailable ERICA HERMAN Primary Care Unavailab le TESTRAKE, KEDAR Attending Unavailable ERICA HERMAN Primary Care Unavailab le SELF Referring Unavailable TESTRAKE, KEDAR Attending Unavailable ERICA HERMAN Primary Care Unavailab le TESTRAKE, KEDAR Referring Unavailable ERICA HERMAN Primary Care Unavailab le NEENA MINAYA Attending Unavailable ERICA HERMAN Primary Care Unavailab le KORINA KITCHEN Referring Unavailable ERICA HERMAN Primary Care Unavailab le TESTRAKE, KEDAR Referring Unavailable ERICA HERMAN Primary Care Unavailab le TESTRAKE, KEDAR Referring Unavailable TESTRAKE, KEDAR Attending Unavailable ERICA HERMAN Primary Care Unavailab le TESTRAKE, KEDAR Referring Unavailable TESTRAKE, KEDAR Attending Unavailable ERICA HERMAN Primary Care Unavailab le ERICA HERMAN Referring Unavailab le ERICA HERMAN Primary Care Unavailab le ERICA HERMAN Referring Unavailab le ERICA HERMAN Primary Care Unavailab le ERICA HERMAN Referring Unavailab le ERICA HERMAN Primary Care Unavailab le ERICA HERMAN Attending Unavailab ERICA Rojas Primary Care Unavailab GAYE Castle Attending Unavailable ERICA HERMAN Primary Care Unavailab le TESTRAKE, KEDAR Referring Unavailable TESTRAKE, KEDAR Attending Unavailable ERICA HERMAN Primary Care Unavailab le ERICA HERMAN Referring Unavailab NAOMY Goldsmith Attending Unavailable ERICA HERMAN Primary Care Unavailab le YAAKOV HAYES Referring Unavailable YAAKOV HAYES Attending Unavailable ERICA HERMAN Primary Care Unavailab le TESTRAKE, KEDAR Attending Unavailable ERICA HERMAN Primary Care Unavailab le TESTRAKE, KEDAR Referring Unavailable Millie Sharif Referring Unavailable Millie Sharif Attending Unavailable Art Herman Primary Care Unavailable Art Herman Referring Unavailable Andriy Otoole Attending Unavailable Art Herman Primary Care Unavailable Art Herman Primary Care Unavailable Art Herman Referring Unavailable Andriy Otoole Attending Unavailable Floresita Capellan Admitting Unavailable Floresita Capellan Attending Unavailable Bursley, Art Primary Care Unavailable Bursley, Art Referring Unavailable OtooleAndriy Attending Unavailable Bursley, Art Primary Care Unavailable Floresita Capellan Consulting Unavailable Floresita Capellan Admitting Unavailable Floresita Capellan Attending Unavailable Bursley, Art Primary Care Unavailable KoleMillie Attending Unavailable Bursley, Art Primary Care Unavailable Bursley, Art Referring Unavailable Bursley, Art Referring Unavailable Millie Sharif Attending Unavailable Bursley, Art Primary Care Unavailable Bursley, Art Referring Unavailable Millie Sharif Attending Unavailable Bursley, Art Primary Care Unavailable Otoole, Andriy Referring Unavailable Bursley, Art Primary Care Unavailable Andriy Otoole Attending Unavailable Millie Sharif Attending Unavailable Bursley, Art Referring Unavailable [facility], Art Primary Care Unavailable Millie Sharif Attending Unavailable [facility], Art Referring Unavailable [facility], Art Primary Care Unavailable Medications Current Medications Medication Drug Class(es) Dates Sig (Normalized) Sig (Original) Administered Medications Medication Order MAR Action Action Date Dose Rate Site tuberculin skin test, unspecified formulation Given 06/19/2022 0.1 mL tuberculin skin test, unspecified formulation Given 06/27/2022 0.1 mL (2 sources) Administered Medications Medication Order MAR Action Action Date Dose Rate Site tuberculin skin test, unspecified formulation Given 06/19/2022 0.1 mL tuberculin skin test, unspecified formulation Given 06/27/2022 0.1 mL [id number] 200 actuat albuterol 0.09 mg/actuat metered dose inhaler (20 sources) beta2-Adrenergic Agonist Start: 05-14-2023 take 2 puff(s) by inhalation every four hours as needed for wheezing albuterol HFA (PROVENTIL HFA, VENTOLIN HFA) 90 mcg/actuation inhaler Inhale 2 Puffs as instructed every 4 hours as needed for wheezing/shortness of breath. 1 Each 3 05/14/2023 Active Start: 04-30-2019 End: 11-01-2022 take 2 puff(s) by inhalation every four hours as needed albuterol HFA (PROVENTIL HFA, VENTOLIN HFA) 90 mcg/actuation inhaler Inhale 2 Puffs as instructed every 4 hours as needed. 1 Inhaler 0 04/30/2019 11/01/2022 Discontinued Start: 10-01-2018 Albuterol Sulf ate 1 PUFF inhaler Active 2 NMA INHALATION Q4H as needed for Sob &/Or Wheezing October 01, 2018 12:00am Start: 10-01-2018 take 1 puff(s) by in halation every four hours Albuterol Sulfate Active 2 PUFF INHALATION Q4H October 01, 2018 12:00am albuterol HFA (P ROVENTIL HFA, VENTOLIN HFA) 90 mcg/actuation inhaler Inhale 2 Puffs as instructed. 0 Active Comment on above: Inhale 2 Puffs as in structed every 4 hours as needed. Inhale 2 Puffs as in structed. Inhale 2 Puffs as in structed every 4 hours as needed for wheezing/shortness of breath. 10 ml aminophylline 25 mg/ml injection (1 source) Start: 06-17-19 End: 06-24-19 aminophylline 50-250 mg injection amoxicillin 875 mg / clavulanate 125 mg oral tablet (11 sources) Penicillin-class Antibacterial Start: 10-15-19 take 1 tablet by mouth every twelve hours amoxicillin-clavulana te potassium (AUGMENTIN) 875-125 mg per tablet Take 1 tablet by mouth every 12 hours. 10/14/2024 Active Start: 10-14-2024 End: 11-04-2024 Amoxicillin-Pot Clavulanate 875-125 mg tablet Discontinued 1 {tbl} PO TWICE A DAY 28 14 0 October 14, 2024 12:00am November 04, 2024 11:50am aspirin 81 mg delayed release oral tablet (20 sources) Platelet Aggregation Inhibitor, Nonsteroidal Anti-inflammatory Drug take 1 tablet by mouth once daily aspirin, enteric coated (ASPIRIN, ENTERIC COATED) 81 mg EC tablet Take 81 mg by mouth once daily. Active Comment on above: Take 81 mg by mouth once daily. atorvastatin 40 mg oral tablet (20 sources) HMG-CoA Reductase Inhibitor Start: 2022 End: 2025 take 1 tablet by mouth once daily at bedtime for hyperlipidemia atorvastatin (LIPITOR) 40 mg tablet Take 1 tablet by mouth daily at bedtime. For cholesterol. 90 tablet 3 06/29/2024 06/24/2025 Active Start: 11-21-2022 End: 02-26-2023 take 5 mg by mouth once daily Atorvastatin 10 mg table t Discontinued 5 mg PO DAILY November 21, 2022 12:00am February 26, 2023 11:49am Start: 11-21-2022 End: 02-26-2023 take 5 mg by mouth once daily Atorvastatin Discontinue d 5 MG PO DAILY November 21, 2022 12:00am February 26, 2023 11:49am Start: 11-06-2022 End: 05-05-2023 take 1 tablet by mouth once daily at bedtime for hyperlipidemia atorvastatin (LIPITOR) 20 mg tablet Take 1 tablet by mouth daily at bedtime. For cholesterol. 90 tablet 1 11/06/2022 02/01/2023 Discontinued Comment on above: Take 1 tablet by juju th daily at bedtime. For cholesterol. blood-glucose control, low(TRUETRACK GLUCOSE SOLN) (20 sources) Start: 03-08-2009 blood-glucose control, low(TRUETRACK GLUCOSE SOLN) Test controls as needed 1 3 03/08/2009 Active Comment on above: Test controls as nee ded Blood-Glucose Meter (True Metrix Glucose Meter) misc (7 sources) Start: 08-19-2023 Blood-Glucose Meter (True Metrix Glucose Meter) misc Active 0 .Route 1 0 August 19, 2023 12:00am Diabetes mellitus Type 2 diabetes mellitus with other diabetic kidney complication Proteinuria, unspecified As directed Start: 08-19-2023 Blood-Glucose Meter (True Metrix Glucose Meter) misc Active 0 .Route 1 August 19, 2023 12:00am As directed blood-glucose meter(TRUETRACK BLOOD GLUCOSE SYSTEM KIT) (20 sources) Start: 03-08-2009 blood-glucose meter(TRUETRACK BLOOD GLUCOSE SYSTEM KIT) Test glucose as directed 1 0 03/08/2009 Active Comment on above: Test glucose as dire cted Blood-Glucose Sensor (Dexcom G7 Sensor) device (10 sources) Start: 08-06-2024 Blood-Glucose Sensor (Dexcom G7 Sensor) device Active 0 .Route 3 August 06, 2024 11:11am As directed Start: 08-06-2024 Blood-Glucose Sensor (Dexcom G7 Sensor) device Active 0 .Route 3 August 06, 2024 11:11am As directed Start: 08-06-2024 End: 08-06-2024 Blood-Glucose Sensor (Dexcom G7 Sensor) device Discontinued 0 .Route 3 6 August 06, 2024 12:00am August 06, 2024 11:11am As directed Start: 08-06-2024 End: 08-06-2024 Blood-Glucose Sensor (Dexcom G7 Sensor) device Discontinued 0 .Route 3 August 06, 2024 12:00am August 06, 2024 11:11am As directed calcium carbonate 1500 mg oral tablet (20 sources) take 1 tablet by mouth once daily calcium carbonate (CALTRATE) 600 mg calcium (1,500 mg) tab Take 1,200 mg by mouth once daily. Active cholecalciferol 0.025 mg oral capsule (20 sources) Vitamin D Start: 05-14-2023 End: 02-28-2025 take 2 capsules by mouth once daily Cholecalciferol, Vitamin D3, (VITAMIN D) 25 mcg (1,000 unit) cap Take 2 capsules by mouth once daily. Taking 2,000 units daily 180 capsule 1 09/01/2024 02/28/2025 Active Start: 02-26-2023 take 1 tablet by juju once daily Cholecalciferol (Vitamin D3) 25 mcg (1,000 unit) tablet Active 25 ug PO DAILY February 26, 2023 1:00am supplement Start: 09-20-2022 End: 02-26-2023 take 1 capsule by mouth once daily Cholecalciferol (Vitamin D3) 25 mcg (1,000 unit) capsule Discontinued 25 ug PO DAILY September 20, 2022 12:00am February 26, 2023 11:43am Start: 04-06-2022 End: 09-20-2022 take 1 capsule by mouth every week Cholecalciferol (Vitamin D3) 1,250 mcg (50,000 unit) capsule Discontinued 1250 ug PO EVERY WEEK 02 15April 06, 2022 1:00am September 20, 2022 9:13am Start: 12-14-2021 End: 03-21-2022 Cholecalciferol (Vitamin D3) 1,250 mcg (50,000 unit) capsule Discontinued 02995 U PO December 14, 2021 12:00am March 21, 2022 9:30am take 1 capsule by mo [facility] once daily, then take 2 capsules by mouth once daily Cholecalciferol, Vitamin D3, (VITAMIN D) 25 mcg (1,000 unit) cap Take 1,000 Units by mouth once daily. Taking 2,000 units daily 0 Active Comment on above: Take 1,000 Units by mouth once daily. Taking 2,000 units daily Take 2 capsules by [facility] once daily. Taking 2,000 units daily ciprofloxacin 250 mg oral tablet (1 source) Quinolone Antimicrobial Start: 11-01-19 End: 11-04-19 take 1 tablet by mouth twice daily ciprofloxacin HCl (CIPRO) 250 mg tablet Take 1 tablet by mouth two times a day for 3 days. 6 tablet 10/31/2024 11/03/2024 Active collagenase 0.25 unt/mg topical ointment (16 sources) Collagen-specific Enzyme Start: 08-21-19 collagenase (SANTYL) ointment Apply to affected area once daily. APPLY TO AFFECTED AREA 30 g 1 08/20/2024 Active DEXCOM G7 SENSOR taryn (16 sources) Start: 08-07-19 DEXCOM G7 SENSOR taryn as directed. 08/06/2024 Active doxycycline monohydrate 100 mg oral capsule (20 sources) Tetracycline-class Drug Start: 11-12-19 take 1 capsule by mouth every twelve hours doxycycline monohydrate (MONODOX) 100 mg capsule Take 1 capsule by mouth every 12 hours. 11/11/2024 Active Start: 11-11-2024 take 1 capsule by [facility] twice daily Doxycycline Monohydrate 100 mg capsule Active 100 mg PO TWICE A DAY 28 14 0 November 11, 2024 12:00am Start: 10-14-2024 take 1 capsule by [facility] every twelve hours doxycycline hyclate (VIBRAMYCIN) 100 mg capsule Take 1 capsule by mouth every 12 hours. 10/14/2024 Active Start: 10-14-2024 End: 11-04-2024 take 1 capsule by mouth twice daily Doxycycline Hyclate 100 mg capsule Discontinued 100 mg PO TWICE A DAY 28 14 0 October 14, 2024 12:00am November 04, 2024 11:50am Start: 06-14-2023 End: 07-18-2023 take 1 capsule by mouth every twelve hours Doxycycline Hyclate 100 mg capsule Discontinued 100 mg PO Q12H 28 14 0 June 14, 2023 12:00am July 18, 2023 8:09am ferrous sulfate 325 mg oral tablet (20 sources) Start: 11-04-2024 take 1 tablet by mouth twice daily Ferrous Sulfate (Ferosul) 325 mg (65 mg iron) tablet Active 325 mg PO TWICE A DAY November 04, 2024 11:50am supplement Start: 10-28-2024 End: 01-26-2025 take 1 tablet by mouth twice daily ferrous sulfate 325 mg (65 mg iron) tablet Indications: Normocytic anemia Take 1 tablet by mouth two times a day. 180 tablet 10/28/2024 01/26/2025 Active Start: 11-06-2023 End: 10-28-2024 take 1 tablet by mouth once daily ferrous sulfate 325 mg (65 mg iron) tablet Take 1 tablet by mouth once daily. 90 tablet 1 11/06/2023 10/28/2024 Discontinued Start: 12-14-2021 End: 03-21-2022 Ferrous Sulfate (Ferosul) 32 5 mg (65 mg iron) tablet Discontinued NMA PO December 14, 2021 12:00am March 21, 2022 9:30am Start: 12-14-2021 End: 11-04-2024 take 1 tablet by mouth once daily Ferrous Sulfate (Ferosul) 325 mg (65 mg iron) tablet Discontinued 325 mg PO DAILY February 26, 2023 1:00am November 04, 2024 11:50am supplement Comment on above: Take 325 mg by mouth . folic acid 1 mg oral tablet (11 sources) Start: 10-07-2024 take 1 tablet by mouth once daily Folic Acid 1 mg tablet Active 1 mg PO DAILY October 07, 2024 12:00am Start: 05-21-2024 End: 08-27-2024 take 1 tablet by mouth once daily folic acid 1 mg tablet Indications: Hypokalemia , Hypomagnesemia , Folic acid deficiency , Normocytic anemia Take 1 tablet by mouth once daily. 90 tablet 05/29/2024 08/27/2024 Active gel dressing (CARRASYN HYDROGEL WOUND DRESS) topical (11 sources) Start: 09-17-2024 apply 28 g topically once daily gel dressing (CARRASYN HYDROGEL WOUND DRESS) topical Apply to affected area once daily. 28 g 1 09/17/2024 Active 3 ml insulin glargine 100 unt/ml pen injector (20 sources) Insulin Analog Start: 11-24-2024 inject 8 [IU] by subcutaneous injection once daily in the morning LANTUS SOLOSTAR U-100 INSULIN 100 unit/mL (3 mL) Inject 8 Units subcutaneously every morning. 11/24/2024 Active Start: 07-25-2024 End: 11-24-2024 LANTUS SOLOSTAR U-100 INSULI N 100 unit/mL (3 mL) Inject 15 Units subcutaneously every morning. 07/25/2024 11/24/2024 Discontinued (Adjust Sig - Block E-Cancel) Start: 07-25-2024 Insulin Glargi ne (Lantus Solostar U-100 Insulin) 100 unit/mL (3 mL) insulin pen Active 20 U SC DAILY July 25, 2024 12:00am Start: 06-07-2022 End: 11-01-2022 inject 15 [IU] by subcutaneous injection once daily at bedtime insulin glargine 100 unit/mL (3 mL) Inject 15 Units subcutaneously daily at bedtime. 0 06/07/2022 11/01/2022 Discontinued Start: 10-01-2018 End: 03-21-2022 inject 35 [IU] by subcutaneous injection at bedtime Insulin Glargine 100 UNIT/ML insulin pen Discontinued 35 U SQ AT BEDTIME October 01, 2018 12:00am March 21, 2022 9:30am Comment on above: Inject 15 Units subc utaneously daily at bedtime. 3 ml insulin lispro 100 unt/ml pen injector (20 sources) Insulin Analog Start: 11-24-2024 insulin lispro (HUMALOG KWIKPEN) 100 unit/mL Take 6 units with breakfast, 8 units with lunch, and 12 units with dinner. 11/24/2024 Active Start: 07-25-2024 End: 11-24-2024 inject 5 [IU] by subcutaneous injection three times daily before mealtime insulin lispro (HUMALOG KWIKPEN) 100 unit/mL Inject 5 Units subcutaneously three times a day before meals. 07/25/2024 11/24/2024 Discontinued (Adjust Sig - Block E-Cancel) Start: 07-25-2024 Insulin Lispro (Humalog Kwikpen Insulin) 100 unit/mL Insulin Pen Active 5 U SC THREE TIMES DAILY BEFORE MEALS July 25, 2024 12:00am Start: 06-07-2022 End: 11-01-2022 inject 8 [IU] by subcutaneous injection three times daily before mealtime, then inject 8 [IU] by subcutaneous injection three times daily before mealtime insulin lispro (HUMALOG U-100 INSULIN) 100 unit/mL injection Inject 8 Units subcutaneously three times daily before meals. Inject 8 units subcutaneously 3 times daily before meals. 0 06/07/2022 11/01/2022 Discontinued Start: 06-07-2022 End: 11-01-2022 insulin lispro 100 unit/mL injection ADMINISTER CORRECTIONAL INSULIN REGARDLESS OF MEAL OR NUTRITION INTAKE Scale 2 If Blood Glucose (mg/dL) is: Less than 110 Give 0 units 111-150 Give 0 units 151-200 Give 2 units 201-250 Give 4 units 251-300 Give 6 units 301-350 Give 8 units 351-400 Give 10 units Greater than 400 Give 10 units and Notify Provider Notify provider if 2 consecutive blood glucose values in the previous 24 hours are greater than 250 mg/dL and there have been no changes to the insulin regimen in the previous 24 hours. 0 06/07/2022 11/01/2022 Discontinued Comment on above: Inject 8 Units subcu taneously three times daily before meals. Inject 8 units subcutaneously 3 times daily before meals. ADMINISTER CORRECTIO NAL INSULIN REGARDLESS OF MEAL OR NUTRITION INTAKE Scale 2 If Blood Glucose (mg/dL) is: Less than 110 Give 0 units 111-150 Give 0 units 151-200 Give 2 units 201-250 Give 4 units 251-300 Give 6 units 301-350 Give 8 units 351-400 Give 10 units Greater than 400 Give 10 units and Notify Provider Notify provider if 2 consecutive blood glucose values in the previous 24 hours are greater than 250 mg/dL and there have been no changes to the insulin regimen in the previous 24 hours. lisinopril 10 mg oral tablet (20 sources) Angiotensin Converting Enzyme Inhibitor Start: take 1 tablet by mouth once daily Lisinopril 10 mg Tablet Active 10 mg PO DAILY 30 July 25, 2024 12:00am Start: 11-01-2022 End: 06-24-2025 take 1 tablet by mouth once daily lisinopril (ZESTRIL) 5 mg tablet Take 1 tablet by mouth once daily. 90 tablet 3 06/29/2024 06/24/2025 Active Start: 09-20-2022 End: 02-26-2023 take 1 tablet by mouth once daily Lisinopril 40 mg tablet Discontinued 40 mg PO DAILY September 20, 2022 12:00am February 26, 2023 11:48am blood pressure Comment on above: Take 40 mg by mouth once daily. Take 1 tablet by juju th once daily. loperamide hydrochloride 2 mg oral capsule (6 sources) Opioid Agonist Start: 07-26-19 take 1 capsule by mouth every eight hours Loperamide 2 mg Capsule Active 2 mg PO EVERY 8 HOURS 0 0 July 25, 2024 12:00am magnesium chloride 598 mg delayed release oral tablet (20 sources) Start: 05-22-19 End: 06-21-19 take 2 tablets by mouth once daily Magnesium Chloride (SLOW-MAG) 71.5 mg TbEC Take 2 tablets by mouth once daily. 60 tablet 05/21/2024 Active 5 ml metoprolol tartrate 1 mg/ml injection (1 source) beta-Adrenergic Nile Start: 06-17-19 End: 06-24-19 metoprolol 2.5-5 mg injection (LOPRESSOR) oxyCODONE hydrochloride 5 mg oral tablet (1 source) Opioid Agonist Start: 07-18-19 End: 07-23-19 take 1 tablet by mouth every six hours as needed for pain oxyCODONE IR (ROXICODONE) 5 mg immediate release tablet Indications: Post-operative pain Take 1 tablet by mouth every 6 hours as needed for pain for up to 5 days. 20 tablet 0 07/18/2023 07/23/2023 Active regadenoson 0.4 mg injection (LEXISCAN) (1 source) Start: 06-17-19 End: 06-24-19 regadenoson 0.4 mg injection (LEXISCAN) sulfamethoxazole 800 mg / trimethoprim 160 mg oral tablet (20 sources) Dihydrofolate Reductase Inhibitor Antibacterial, Sulfonamide Antimicrobial Start: 07-18-19 End: 07-25-19 take 1 tablet by mouth twice daily sulfamethoxazole-t rimethoprim (BACTRIM DS) 800-160 mg per tablet Take 1 tablet by mouth two times a day for 7 days. 14 tablet 0 07/18/2023 07/25/2023 Active Start: 05-16-2023 End: 09-11-2023 Sulfamethoxazole-Trimethopri m (Bactrim Ds) 800-160 mg tablet Discontinued 1 {tbl} PO Q12H 28 14 0 June 27, 2023 4:18pm July 18, 2023 8:09am Start: 03-01-2023 End: 03-14-2023 Sulfamethoxazole-Trimethopri m (Bactrim Ds) 800-160 mg tablet Discontinued 1 {tbl} PO TWICE A DAY 10 0 March 01, 2023 1:00am March 14, 2023 2:27pm urea 400 mg/ml topical cream (20 sources) Start: 04-04-2023 End: 04-03-2024 urea (CARMOL) 40 % Indications: Callus of foot , Diabetic polyneuropathy associated with diabetes mellitus due to underlying condition (HCC) , History of below-knee amputation of right lower extremity (HCC) Apply to affected area once daily. 198 g 11 04/04/2023 04/03/2024 Active Comment on above: Apply to affected ar ea once daily. Completed/Discontinued Medications Medication Drug Class(es) Dates Sig (Normalized) Sig (Original) acetaminophen 325 mg oral tablet (2 sources) End: 11-01-2022 take 2 tablets by mouth every six hours as needed acetaminophen (TYLENOL) 325 mg tablet Take 650 mg by mouth every 6 hours as needed for pain. 0 11/01/2022 Discontinued Comment on above: Take 650 mg by mouth every 6 hours as needed for pain. amLODIPine 5 mg oral tablet (20 sources) Dihydropyridine Calcium Channel Nile Start: 09-20-2022 End: 02-26-2023 take 1 tablet by mouth once daily Amlodipine 5 mg tablet Discontinued 5 mg PO DAILY September 20, 2022 12:00am February 26, 2023 11:46am Comment on above: Take by mouth once d aily. bisacodyl 10 mg rectal suppository (2 sources) Stimulant Laxative End: 11-01-2022 take 10 mg rectal route once daily as needed for constipation bisacodyl (DULCOLAX) 10 mg supp 10 mg by RECTAL route once daily as needed for constipation. 0 11/01/2022 Discontinued Comment on above: 10 mg by RECTAL rout e once daily as needed for constipation. carbamide peroxide 65 mg/ml otic solution (20 sources) Start: 08-30-2020 End: 03-21-2022 Carbamide Peroxide (Ear Drops (Carbamide Peroxide)) 6.5 % drops Discontinued 5 NMA RIGHT EAR DAILY 18 4 0 August 30, 2020 12:00am March 21, 2022 9:30am Start: 08-30-2020 End: 03-21-2022 Carbamide Peroxide (Ear Drop s (Carbamide Peroxide)) 6.5 % drops Discontinued 5 DRP RIGHT EAR DAILY 18 4 August 30, 2020 12:00am March 21, 2022 9:30am cephalexin 500 mg oral capsule (20 sources) Cephalosporin Antibacterial Start: 02-16-2023 End: 02-26-2023 take 1 capsule by mouth every six hours Cephalexin 500 mg capsule Discontinued 500 mg PO EVERY 6 HOURS 40 0 February 16, 2023 1:00am February 26, 2023 11:46am cloNIDine hydrochloride 0.1 mg oral tablet (2 sources) Central alpha-2 Adrenergic Agonist End: 11-01-2022 take 1 tablet by mouth twice daily cloNIDine HCl (CATAPRES) 0.1 mg tablet Take 0.1 mg by mouth twice daily. 0 11/01/2022 Discontinued Comment on above: Take 0.1 mg by mouth twice daily. dapagliflozin 10 mg oral tablet (20 sources) Sodium-Glucose Cotransporter 2 Inhibitor Start: 09-20-2022 End: 08-26-2024 take 1 tablet by mouth once daily Dapagliflozin Propanediol (Farxiga) 10 mg tablet Discontinued 10 mg PO DAILY September 20, 2022 12:00am August 26, 2024 1:52pm blood sugars 1 ml denosumab 60 mg/ml prefilled syringe (7 sources) RANK Ligand Inhibitor Start: 10-30-2023 End: 01-03-2024 Denosumab (Prolia) 60 mg/mL syringe Discontinued 60 mg SC every 6 months 03 18October 30, 2023 12:00am January 03, 2024 7:20am Osteoporosis Age-related osteoporosis without current pathological fracture diphenhydrAMINE hydrochloride 25 mg oral tablet (2 sources) Histamine-1 Receptor Antagonist End: 11-01-2022 take 1 tablet by mouth every eight hours as needed diphenhydrAMINE (BENADRYL ALLERGY) 25 mg tablet Take 25 mg by mouth every 8 hours as needed for itching/rash. 0 11/01/2022 Discontinued Comment on above: Take 25 mg by mouth every 8 hours as needed for itching/rash. ergocalciferol 1.25 mg oral capsule (20 sources) Provitamin D2 Compound Start: 10-01-2018 End: 09-20-2022 Ergocalciferol (Vitamin D2) 50,000 UNIT capsule Discontinued 12504 U PO Q7D October 01, 2018 12:00am September 20, 2022 9:13am ferrous fumarate 325 mg oral tablet (20 sources) Start: 09-20-2022 End: 02-26-2023 take 1 tablet by mouth once daily Ferrous Fumarate 325 mg (106 mg iron) tablet Discontinued 325 mg PO DAILY September 20, 2022 12:00am February 26, 2023 11:41am supplement glipiZIDE 5 mg oral tablet (20 sources) Sulfonylurea Start: 04-17-2023 End: 07-25-2024 take 1 tablet by mouth twice daily Glipizide 5 mg tablet Discontinued 5 mg PO TWICE A DAY 60 June 30, 2024 11:38am July 25, 2024 11:50am Diabetes mellitus Type 2 diabetes mellitus without complications Start: 12-14-2021 End: 03-02-2022 take 1 tablet by mouth every twenty-four hours Glipizide 5 mg tablet extended release 24hr Discontinued NMA PO December 14, 2021 12:00am March 02, 2022 1:46pm Start: 12-14-2021 End: 04-17-2023 take 1 tablet by mouth once daily Glipizide 5 mg table t extended release 24hr Discontinued 5 mg PO DAILY 30 September 24, 2022 9:55am April 17, 2023 1:04pm blood sugars take 1 tablet by mouth once michelle y glipiZIDE (GLUCOTROL) 5 mg tablet Take 5 mg by mouth once daily. 0 Active Comment on above: Take 5 mg by mouth o nce daily. glucagon (rdna) 1 mg injection (2 sources) Antihypoglycemic Agent End: 11-01-2022 glucagon (GLUCAGON EMERGENCY KIT, HUMAN,) 1 mg injection Inject 1 mg subcutaneously as needed. 0 11/01/2022 Discontinued Comment on above: Inject 1 mg subcutan eously as needed. glucose 4000 mg chewable tablet (20 sources) Start: 12-14-2021 End: 03-21-2022 Glucose 4 gram tablet,chewable Discontinued NMA PO December 14, 2021 12:00am March 21, 2022 9:30am Start: 12-14-2021 End: 03-21-2022 Glucose Discontinued EACH PO December 14, 2021 12:00am March 21, 2022 9:30am End: 11-01-2022 dextrose (GLUCOSE GEL) 40 % gel Take 15 g by mouth as needed. 0 11/01/2022 Discontinued Comment on above: Take 15 g by mouth a s needed. 1 ml heparin sodium, porcine 5000 unt/ml injection (2 sources) Unfractionated Heparin, Anti-coagulant End: 2022 inject 5000 [IU] by subcutaneous injection every twelve hours heparin 5,000 unit/mL injection Inject 5,000 Units subcutaneously every 12 hours. 0 11/01/2022 Discontinued Comment on above: Inject 5,000 Units s ubcutaneously every 12 hours. 3 ml insulin detemir 100 unt/ml pen injector (20 sources) Insulin Analog Start: 2020 End: 2022 Insulin Detemir U-100 (Levemir Flextouch U-100 Insuln) 100 unit/mL (3 mL) insulin pen Discontinued 50 U SC AT BEDTIME October 13, 2020 12:00am March 21, 2022 9:30am magnesium hydroxide 80 mg/ml oral suspension (2 sources) End: 2022 take 5 mL by mouth once daily as needed magnesium hydroxide (MILK OF MAGNESIA) 400 mg/5 mL suspension Take 5 mL by mouth once daily as needed. 0 11/01/2022 Discontinued Comment on above: Take 5 mL by mouth o nce daily as needed. magnesium oxide 400 mg oral tablet (12 sources) Start: 2022 End: 2022 take 1 tablet by mouth twice daily magnesium oxide (MAG-OX) 400 mg (241.3 mg magnesium) tablet Take 1 tablet by mouth twice daily for 3 doses. 3 tablet 0 06/07/2022 11/01/2022 Discontinued Comment on above: Take 1 tablet by juju twice daily for 3 doses. metFORMIN hydrochloride 1000 mg oral tablet (20 sources) Biguanide Start: 2022 End: 2023 take 1 tablet by mouth twice daily Metformin 1,000 mg tablet Discontinued 1000 mg PO TWICE A DAY February 26, 2023 1:00am February 24, 2024 11:43am blood sugars Start: 12-14-2021 End: 02-26-2023 take 1 tablet by mouth twice daily Metformin 500 mg tablet extended release 24 hr Discontinued 500 mg PO TWICE A DAY December 14, 2021 12:00am February 26, 2023 11:48am Start: 10-01-2018 End: 03-21-2022 take 1 tablet by mouth once daily Metformin 1,000 MG tablet Discontinued 1000 mg PO DAILY October 01, 2018 12:00am March 21, 2022 9:31am Start: 03-07-2009 End: 06-07-2022 METFORMIN 850 MG TAB Take on e(1) tablet daily. 30 12 03/07/2009 06/07/2022 Discontinued Comment on above: Take one(1) tablet d aily. Take 1,000 mg by juju th twice daily with meals. mineral oil 1000 mg/ml enema (2 sources) End: take 133 mL rectal route once as needed for constipation mineral oil ([id number] ENEMA, MIN OIL,) enema 133 mL by RECTAL route as needed for constipation. 0 11/01/2022 Discontinued Comment on above: 133 mL by RECTAL rou te as needed for constipation. nitrofurantoin, macrocrystals 25 mg / nitrofurantoin, monohydrate 75 mg oral capsule (1 source) Nitrofuran Antibacterial Start: 025 End: take 1 capsule by mouth twice daily nitrofurantoin monohydrate and macrocrystal (MACROBID) 100 mg capsule Take 1 capsule by mouth two times a day for 5 days. 10 capsule 10/31/2024 10/31/2024 Discontinued omeprazole 20 mg delayed release oral capsule (20 sources) Proton Pump Inhibitor Start: 018 End: take 1 capsule by mouth once daily Omeprazole 20 mg capsule,delayed release(DR/EC) Discontinued 20 mg PO DAILY January 31, 2018 1:00am March 21, 2022 9:31am pantoprazole 40 mg delayed release oral tablet (20 sources) Proton Pump Inhibitor Start: End: 023 take 1 tablet by mouth once daily Pantoprazole 40 mg tablet,delayed release (DR/EC) Discontinued 40 mg PO DAILY September 20, 2022 12:00am March 14, 2023 2:27pm acid reflux Start: 06-07-2022 End: 11-01-2022 take 1 tablet by mouth twice daily before mealtime pantoprazole DR (PROTONIX) 40 mg tablet Take 1 tablet by mouth twice daily before meals (0600/1600). 0 06/07/2022 11/01/2022 Discontinued Comment on above: Take 1 tablet by juju th twice daily before meals (0600/1600). pediatric multivitamin no.17 (CHILDREN'S CHEW MULTIVITAMIN) chewable tablet (2 sources) End: 3 take 1 tablet by mouth once daily pediatric multivitamin no.17 (CHILDREN'S CHEW MULTIVITAMIN) chewable tablet Take 1 tablet by mouth once daily. 0 11/01/2022 Discontinued take 1 tablet by mouth once michelle y pediatric multivitamin no.17 (CHILDREN'S CHEW MULTIVITAMIN) chewable tablet Take 1 tablet by mouth once daily. 0 Active Comment on above: Take 1 tablet by juju th once daily. polyethylene glycol 3350 77669 mg powder for oral solution (2 sources) Osmotic Laxative End: 11-02-19 polyethylene glycol 3350 (MIRALAX) 17 gram/dose powder Take by mouth once daily. Dissolve dose in 4 - 8 ounces of liquid and take as directed. 0 11/01/2022 Discontinued Comment on above: Take by mouth once d aily. Dissolve dose in 4 - 8 ounces of liquid and take as directed. microencapsulated potassium chloride 20 meq extended release oral tablet (20 sources) Start: 07-26-19 25 End: 08-27-19 25 take 2 tablets by mouth twice daily at mealtime Potassium Chloride 20 mEq Tablet,Er Particles/Crystals Discontinued 40 meq PO TWICE DAILY WITH MEALS 10 July 25, 2024 12:00am August 26, 2024 10:59am Start: 05-21-2024 End: 05-26-2024 take 1 tablet by mouth once daily potassium chloride (K-TAB) 10 mEq tablet Take 1 tablet by mouth once daily for 5 days. 5 tablet 05/21/2024 05/26/2024 Active Start: 05-14-2024 End: 05-19-2024 take 1 tablet by mouth once daily potassium chloride 20 mEq TbER Indications: Hypokalemia Take 1 tablet by mouth once daily for 5 days. 5 tablet 05/14/2024 05/19/2024 Active Start: 11-06-2023 End: 11-14-2023 take 2 tablets by mouth once daily at breakfast potassium chloride 20 mEq TbER Take 2 tablets by mouth daily with breakfast for 3 days. 6 tablet 11/11/2023 11/14/2023 Active Start: 09-20-2022 End: 02-26-2023 take 1 tablet by mouth twice daily Potassium Chloride 20 mEq tablet,ER particles/crystals Discontinued 20 meq PO TWICE A DAY September 20, 2022 12:00am February 26, 2023 11:49am supplement End: 11-01-2022 take 1 tablet by mouth once daily potassium chloride 20 mEq TbER Take 1 tablet by mouth once daily. 0 11/01/2022 Discontinued Comment on above: Take 1 tablet by juju once daily. Vancomycin (6 sources) Glycopeptide Antibacterial Start: 023 End: 023 take 750 mg intravenously every twelve hours vancomycin (VANCOCIN) 750 mg in D5W 250 mL Inject 250 mL intravenously q 12 HR for 21 days. 16443 mL 0 06/07/2022 06/28/2022 Start: 06-07-2022 End: 06-28-2022 take 750 mg intravenously every twelve hours vancomycin (VANCOCIN) 750 mg in D5W 250 mL Inject 250 mL intravenously q 12 HR for 21 days. 46088 mL 0 06/07/2022 06/28/2022 Active Comment on above: Inject 250 mL intrav enously q 12 HR for 21 days. 100 ml zoledronic acid 0.05 mg/ml injection (7 sources) Bisphosphonate Start: 01-03-2024 End: 02-24-2024 Zoledronic Ehoe-Ojktxbjz-Suvva 5 mg/100 mL piggyback Discontinued 1 NMA .Route ONCE 100 0 January 03, 2024 12:00am February 24, 2024 11:01am infuse over 20 minutes Problems Active Problems Problem Classification Problem Date Documented Da te Episodic/Chronic Acquired foot deformities (6 sources) Hammer toe; Translations: [Other hammer toe(s) (acquired), left foot] Onset: 08-20-2024 04-02-2024 Chronic Administrative/social admission (11 sources) Unspecified housing or economic circumstance; Translations: [Housing situation unstable] 05-27-2024 Episodic Anxiety disorders (20 sources) Anxiety; Translations: [Anxiety disorder, unspecified] Onset: 10-14-2009 10-14-2009 Chronic Cardiac dysrhythmias (20 sources) ECG: sinus tachycardia; Translations: [Tachycardia, unspecified] 02-26-2023 Episodic Chronic ulcer of skin (20 sources) Non-pressure chronic ulcer of other part of left foot limited to breakdown of skin; Translations: [Ulcer of other part of foot] Onset: 12-10-2023 08-20-2024 Chronic Complications of surgical procedures or medical care (20 sources) Disorder of amputation stump; Translations: [Other complications of amputation stump] 03-15-2023 Episodic Coronary atherosclerosis and other heart disease (20 sources) Calcification of coronary artery; Translations: [Atherosclerotic heart disease of [place] coronary artery without angina pectoris] Onset: 11-16-2022 12-10-2022 Chronic Deficiency and other anemia (20 sources) Anemia; Translations: [Anemia, unspecified] 05-31-2022 Episodic Deficiency and other anemia (2 sources) Anemia, unspecified; Translations: [Anemia, unspecified] Onset: 11-24-2024 05-31-2022 Episodic Deficiency and other anemia (9 sources) Normocytic anemia; Translations: [Anemia, unspecified] 11-05-2023 Episodic Diabetes mellitus with complications (20 sources) Infection of foot due to diabetes mellitus; Translations: [Type 2 diabetes mellitus with other skin complications] Onset: 09-29-2007 05-31-2022 Chronic Diabetes mellitus without complication (20 sources) Type 2 diabetes mellitus without complications; Translations: [Diabetes mellitus] Onset: 05-29-2018 Chronic Diseases of white blood cells (16 sources) Leukocytosis; Translations: [Elevated white blood cell count, unspecified] Onset: 07-25-2024 11-06-2023 Chronic Disorders of lipid metabolism (5 sources) Mixed hyperlipidemia; Translations: [Mixed hyperlipidemia] Onset: 05-13-2024 02-01-2023 Chronic Esophageal disorders (2 sources) Esophageal obstruction; Translations: [Gastro-esophageal reflux disease without esophagitis] Onset: 05-29-2018 Chronic Essential hypertension (20 sources) Hypertensive disorder; Translations: [Essential (primary) hypertension] Onset: 01-24-2010 01-24-2010 Chronic Genitourinary symptoms and ill-defined conditions (20 sources) Microalbuminuria; Translations: [Proteinuria, unspecified] Onset: 07-25-2024 05-27-2024 Episodic Infective arthritis and osteomyelitis (except that caused by tuberculosis or sexually transmitted disease) (6 sources) Acute osteomyelitis of tibia; Translations: [Other acute osteomyelitis, right tibia and fibula] Onset: 07-18-2023 07-02-2023 Chronic Mood disorders (20 sources) Depressive disorder; Translations: [Depression] Onset: 01-30-2010 01-30-2010 Chronic Neoplasms of unspecified nature or uncertain behavior (14 sources) Thrombocytosis; Translations: [Thrombocythemia] 07-22-2024 Episodic Nutritional deficiencies (20 sources) Vitamin D deficiency; Translations: [Vitamin D deficiency, unspecified] Onset: 11-04-2024 03-21-2022 Chronic Open wounds of extremities (11 sources) Amputated below knee; Translations: [Complete traumatic amputation at level between knee and ankle, unspecified lower leg, initial encounter] Onset: 09-25-2022 Chronic Open wounds of extremities (20 sources) Injury of lower extremity; Translations: [Unspecified open wound, right lower leg, initial encounter] 02-16-2023 Episodic Osteoporosis (18 sources) Osteoporosis; Translations: [Age-related osteoporosis without current pathological fracture] Onset: 11-04-2024 02-24-2024 Chronic Other aftercare (4 sources) Patient encounter status; Translations: [Encounter for follow-up examination after completed treatment for conditions other than malignant neoplasm] Episodic Other aftercare (1 source) lead mason tender (current) use of oral hypoglycemic drugs; Translations: [EDUCATION COUNSELOR USE ORAL HYPOGLYCEMIC DX] Onset: 05-29-2018 Other bone disease and musculoskeletal deformities (20 sources) History of amputation of right leg through tibia and fibula; Translations: [Acquired absence of right leg below knee] Chronic Other bone disease and musculoskeletal deformities (3 sources) Acquired absence of right leg below knee; Translations: [Below knee amputation status] Onset: 08-20-2024 02-26-2023 Chronic Other circulatory disease (1 source) Abnormal peripheral pulse; Translations: [Other specified symptoms and signs involving the circulatory and respiratory systems] 04-02-2024 Episodic Other connective tissue disease (20 sources) Necrotizing fasciitis; Translations: [Necrotizing fasciitis] 05-31-2022 Episodic Other connective tissue disease (1 source) Necrotizing fasciitis; Translations: [Necrotizing fasciitis] 05-31-2022 Episodic Other ear and sense organ disorders (20 sources) Impacted cerumen; Translations: [Impacted cerumen, unspecified ear] 08-30-2020 Episodic Other endocrine disorders (20 sources) Hypoglycemia; Translations: [Hypoglycemia, unspecified] 11-08-2020 Chronic Other gastrointestinal disorders (2 sources) Occult blood in stools; Translations: [Other fecal abnormalities] 05-29-2024 Episodic Other gastrointestinal disorders (14 sources) Diarrhea; Translations: [Diarrhea, unspecified] 07-22-2024 Episodic Other infections; including parasitic (1 source) H/O: infectious disease; Translations: [Personal history of other infectious and parasitic diseases] Episodic Other injuries and conditions due to external causes (1 source) Local infection of wound; Translations: [Other injury of unspecified body region, initial encounter] 02-16-2023 Episodic Other nervous system disorders (1 source) Other acute postprocedural pain; Translations: [Post-operative pain] Onset: 07-18-2023 Episodic Other nutritional; endocrine; and metabolic disorders (2 sources) Hypomagnesemia; Translations: [Hypomagnesemia] 05-21-2024 Chronic Other nutritional; endocrine; and metabolic disorders (1 source) Hypomagnesemia; Translations: [Hypomagnesemia] Onset: 05-28-2024 Chronic Other nutritional; endocrine; and metabolic disorders (20 sources) Underweight; Translations: [Underweight] 04-17-2023 Episodic Other nutritional; endocrine; and metabolic disorders (11 sources) Underweight; Translations: [Underweight] Onset: 11-04-2024 04-17-2023 Episodic Other nutritional; endocrine; and metabolic disorders (1 source) Weight loss; Translations: [Abnormal weight loss] 08-05-2023 Episodic Other screening for suspected conditions (not mental disorders or infectious disease) (20 sources) Abnormal findings on diagnostic imaging of other parts of digestive tract; Translations: [Mammography abnormal] Onset: 07-13-2013 07-13-2013 Episodic Other skin disorders (10 sources) Foot callus; Translations: [Corns and callosities] 02-01-2023 Episodic Other skin disorders (1 source) Thickened nails; Translations: [Onychogryphosis] 02-01-2023 Episodic Peripheral and visceral atherosclerosis (3 sources) Peripheral vascular disease, unspecified; Translations: [Peripheral vascular disease, unspecified] Onset: 11-24-2024 10-26-2024 Chronic Residual codes; unclassified (1 source) H/O: Disorder; Translations: [Personal history of other specified conditions] Episodic Residual codes; unclassified (20 sources) Noncompliance with medication regimen; Translations: [Noncompliance with medication regimen] 09-20-2022 Episodic Residual codes; unclassified (2 sources) Tobacco use and exposure - finding; Translations: [Tobacco use] 11-01-2022 Episodic Residual codes; unclassified (18 sources) Noncompliance with treatment; Translations: [Noncompliance] 07-22-2024 Episodic Residual codes; unclassified (2 sources) Other general symptoms and signs; Translations: [Other general symptoms] Onset: 10-29-2024 10-28-2024 Episodic Skin and subcutaneous tissue infections (20 sources) Cellulitis of foot; Translations: [Cellulitis of right lower limb] 05-31-2022 Episodic Substance-related disorders (20 sources) Nicotine dependence, cigarettes, uncomplicated; Translations: [Tobacco user] Onset: 05-29-2018 02-01-2023 Chronic Thyroid disorders (20 sources) Goiter; Translations: [Nontoxic goiter, unspecified] Onset: 09-29-2007 09-29-2007 Chronic Unclassified (6 sources) Please call on Saturday to set up an appointment to be seen in the next 2 weeks Unclassified (1 source) Acute candidiasis of vulva and vagina; Translations: [Acute candidiasis of vulva and vagina] Onset: 07-25-2024 Unclassified (1 source) Thrombocytosis, unspecified; Translations: [Thrombocytosis, unspecified] Onset: 07-25-2024 Unclassified (1 source) Other acidosis; Translations: [Other acidosis] Onset: 07-25-2024 Unclassified (1 source) Patient's noncompliance with other medical treatment and regimen due to unspecified reason; Translations: [Patient's noncompliance with other medical treatment and regimen due to unspecified reason] Onset: 07-25-2024 Past or Other Problems Problem Classification Problem Date Documented Da te Episodic/Chronic Acute and unspecified renal failure (19 sources) Acute renal failure syndrome; Translations: [Acute kidney failure, unspecified] Onset: 07-25-2024 07-22-2024 Episodic Bacterial infection; unspecified site (20 sources) Gas gangrene; Translations: [Gas gangrene] Onset: 05-31-2022 05-31-2022 Episodic Fluid and electrolyte disorders (20 sources) Hypokalemia; Translations: [Hypokalemia] Onset: 05-28-2024 10-13-2020 Episodic Malaise and fatigue (1 source) Weakness; Translations: [Weakness] Onset: 07-31-2024 Episodic Mycoses (20 sources) Onychomycosis; Translations: [Tinea unguium] Onset: 08-20-2024 07-04-2023 Episodic Nutritional deficiencies (3 sources) Folic acid deficiency; Translations: [Deficiency of other specified B group vitamins] Onset: 05-28-2024 05-21-2024 Episodic Other aftercare (1 source) Other jail (current) drug therapy; Translations: [OTH EDUCATION COUNSELOR CURRENT DRUG THERAPY] Onset: 05-29-2018 Episodic Other aftercare (1 source) lead mason tender (current) use of insulin; Translations: [EDUCATION COUNSELOR CURRENT USE OF INSULIN] Onset: 05-01-2018 Episodic Other aftercare (20 sources) Peripherally inserted central venous catheter in situ; Translations: [Encounter for adjustment and management of vascular access device] Onset: 06-06-2022 06-06-2022 Episodic Other circulatory disease (1 source) Other specified symptoms and signs involving the circulatory and respiratory systems; Translations: [Diminished pulses in lower extremity] Onset: 05-05-2024 Episodic Other gastrointestinal disorders (1 source) Diarrhea, unspecified; Translations: [Diarrhea, unspecified] Onset: 07-25-2024 Episodic Other lower respiratory disease (20 sources) Cough; Translations: [Cough] Onset: 05-19-2007 Resolved: 09-29-2007 09-29-2007 Episodic Other lower respiratory disease (1 source) Other nonspecific abnormal finding of lung field; Translations: [Multiple lung nodules] Onset: 07-13-2024 Episodic Other skin disorders (1 source) Corns and callosities; Translations: [Callus of foot] Onset: 05-05-2024 Episodic Residual codes; unclassified (1 source) Patient's other noncompliance with medication regimen; Translations: [PT OTH NONCOMPLIANCE W/ MED REGIMEN] Onset: 05-21-2018 Episodic Residual codes; unclassified (1 source) Tobacco use; Translations: [Tobacco use] Onset: 07-13-2024 Episodic Unclassified (20 sources) history EGD with dilatation 10-05-2021 Unclassified (2 sources) Ulcer of toe of left foot, with fat layer exposed (HCC) 09-01-2024 Unclassified (1 source) Preprocedural examination done 10-26-2024 Results Test Name Value Interpretation Reference Range Facility [facility] SANJUANITA JERRY ([id number]) 1965 F Date Time Provider Department 11/25/24 TAE VANEGAS During your visit today, we recorded the following information about you: Deb Saavedra 11/25/2024 2:00 PM Signed Please review and advise CONSULT TO HEMATOLOGY/ONCOLOGY Status: Needs Scheduling Requested appt date: Authorizing: Erica Herman MD in [facility] Referral: [id number] (Authorized) Expires: 11/25/2025 Priority: Routine Diagnosis: Iron deficiency anemia, unspecified iron deficiency anemia type [D50.9] Normocytic anemia [D64.9] Marjorie Ivan LPN 11/25/2024 2:06 PM Signed See telephone note 11/25/2024 "results". PSS- okay to schedule with FARIDA Veloz Melissa 11/25/2024 2:15 PM Signed Scheduled with patient Allergies As of Date: 11/25/2024 (No Known Allergies) Date Reviewed: 11/24/2024 Reviewed by: Deonte Handy MA - Fully Assessed Reason for Visit: New Patient [172] Prescriptions as of 11/25/2024 - doxycycline monohydrate (MONODOX) 100 mg capsule Take 1 capsule by mouth every 12 hours. - LANTUS SOLOSTAR U-100 INSULIN 100 unit/mL (3 mL) Inject 8 Units subcutaneously every morning. - insulin lispro (HUMALOG KWIKPEN) 100 unit/mL Take 6 units with breakfast, 8 units with lunch, and 12 units with dinner. - ferrous sulfate 325 mg (65 mg iron) tablet Take 1 tablet by mouth two times a day. - amoxicillin-clavulan ate potassium (AUGMENTIN) 875-125 mg per tablet Take 1 tablet by mouth every 12 hours. - doxycycline hyclate (VIBRAMYCIN) 100 mg capsule Take 1 capsule by mouth every 12 hours. - gel dressing (CARRASYN HYDROGEL WOUND DRESS) topical Apply to affected area once daily. - Cholecalciferol, Vitamin D3, (VITAMIN D) 25 mcg (1,000 unit) cap Take 2 capsules by mouth once daily. Taking 2,000 units daily - DEXCOM G7 SENSOR taryn as directed. - collagenase (SANTYL) ointment Apply to affected area once daily. APPLY TO AFFECTED AREA - atorvastatin (LIPITOR) 40 mg tablet Take 1 tablet by mouth daily at bedtime. For cholesterol. - lisinopril (ZESTRIL) 5 mg tablet Take 1 tablet by mouth once daily. - Magnesium Chloride (SLOW-MAG) 71.5 mg TbEC Take 2 tablets by mouth once daily. - calcium carbonate (CALTRATE) 600 mg calcium (1,500 mg) tab Take 1,200 mg by mouth once daily. - aspirin, enteric coated (ASPIRIN, ENTERIC COATED) 81 mg EC tablet Take 81 mg by mouth once daily. - albuterol HFA (PROVENTIL HFA, VENTOLIN HFA) 90 mcg/actuation inhaler Inhale 2 Puffs as instructed every 4 hours as needed for wheezing/shortness of breath. - glipiZIDE (GLUCOTROL) 5 mg tablet Take 5 mg by mouth two times a day before meals. - blood sugar diagnostic(SwitchboardCK TEST STRIPS) Test blood sugars twice daily. - blood-glucose meter(TRUETRACK BLOOD GLUCOSE SYSTEM KIT) Test glucose as directed - blood-glucose control, low(TRUETRACK GLUCOSE SOLN) Test controls as needed - LANCETS Test blood sugars once daily, 250.00, non insulin dep Meds Comments as of 02/25/2014: Problem List As Of Date 11/25/2024 Noted Resolved COUGH [R05.9] 05/19/2007 09/29/2007 GOITER NOS [E04.9] 09/29/2007 DM type 2 with diabetic peripheral neuropathy (*09/29/2007 Anxiety [F41.9] 10/14/2009 Hypertension [I10] 01/24/2010 Depression [F32.A] 01/30/2010 Abnormal mammogram [R92.8] 07/13/2013 Gas gangrene of extremity (HCC) [A48.0] 05/31/2022 MRSA bacteremia [R78.81, B95.62] 06/04/2022 Infection due to anaerobes [A49.8] 06/04/2022 Peripherally inserted central catheter (PICC) i*06/06/2022 Coronary artery calcification [I25.10] 11/2022 S/P BKA (below knee amputation) (HCC) [Z89.519] 05/31/2022 Tobacco use disorder [F17.200] 02/01/2023 Encounter Status:Closed by MARJORIE IVAN on 11/25/24 [facility] CNPN Telephone (FAMPWS) SANJUANITA JERRY ([id number]) 1965 F Date Time Provider Department 11/25/24 ERICA HERMAN [facility] During your visit today, we recorded the following information about you: Victoria Polanco, RN 11/25/2024 1:40 PM Signed Caroline from [facility] calling and is asking if office note, labs or testing that was done, and something that states that patient is clear for surgery can be faxed to [phone]. Please review and advise, JANETH Haynes Lindsey, MA 11/25/2024 2:19 PM Signed Form faxed. Deonte Handy MA Allergies As of Date: 11/25/2024 (No Known Allergies) Date Reviewed: 11/24/2024 Reviewed by: Deonte Handy MA - Fully Assessed Prescriptions as of 11/25/2024 - doxycycline monohydrate (MONODOX) 100 mg capsule Take 1 capsule by mouth every 12 hours. - LANTUS SOLOSTAR U-100 INSULIN 100 unit/mL (3 mL) Inject 8 Units subcutaneously every morning. - insulin lispro (HUMALOG KWIKPEN) 100 unit/mL Take 6 units with breakfast, 8 units with lunch, and 12 units with dinner. - ferrous sulfate 325 mg (65 mg iron) tablet Take 1 tablet by mouth two times a day. - amoxicillin-clavulan ate potassium (AUGMENTIN) 875-125 mg per tablet Take 1 tablet by mouth every 12 hours. - doxycycline hyclate (VIBRAMYCIN) 100 mg capsule Take 1 capsule by mouth every 12 hours. - gel dressing (CARRASYN HYDROGEL WOUND DRESS) topical Apply to affected area once daily. - Cholecalciferol, Vitamin D3, (VITAMIN D) 25 mcg (1,000 unit) cap Take 2 capsules by mouth once daily. Taking 2,000 units daily - DEXCOM G7 SENSOR taryn as directed. - collagenase (SANTYL) ointment Apply to affected area once daily. APPLY TO AFFECTED AREA - atorvastatin (LIPITOR) 40 mg tablet Take 1 tablet by mouth daily at bedtime. For cholesterol. - lisinopril (ZESTRIL) 5 mg tablet Take 1 tablet by mouth once daily. - Magnesium Chloride (SLOW-MAG) 71.5 mg TbEC Take 2 tablets by mouth once daily. - calcium carbonate (CALTRATE) 600 mg calcium (1,500 mg) tab Take 1,200 mg by mouth once daily. - aspirin, enteric coated (ASPIRIN, ENTERIC COATED) 81 mg EC tablet Take 81 mg by mouth once daily. - albuterol HFA (PROVENTIL HFA, VENTOLIN HFA) 90 mcg/actuation inhaler Inhale 2 Puffs as instructed every 4 hours as needed for wheezing/shortness of breath. - glipiZIDE (GLUCOTROL) 5 mg tablet Take 5 mg by mouth two times a day before meals. - blood sugar diagnostic(TRUETRACK TEST STRIPS) Test blood sugars twice daily. - blood-glucose meter(TRUETRACK BLOOD GLUCOSE SYSTEM KIT) Test glucose as directed - blood-glucose control, low(TRUETRACK GLUCOSE SOLN) Test controls as needed - LANCETS Test blood sugars once daily, 250.00, non insulin dep Meds Comments as of 02/25/2014: Problem List As Of Date 11/25/2024 Noted Resolved COUGH [R05.9] 05/19/2007 09/29/2007 GOITER NOS [E04.9] 09/29/2007 DM type 2 with diabetic peripheral neuropathy (*09/29/2007 Anxiety [F41.9] 10/14/2009 Hypertension [I10] 01/24/2010 Depression [F32.A] 01/30/2010 Abnormal mammogram [R92.8] 07/13/2013 Gas gangrene of extremity (HCC) [A48.0] 05/31/2022 MRSA bacteremia [R78.81, B95.62] 06/04/2022 Infection due to anaerobes [A49.8] 06/04/2022 Peripherally inserted central catheter (PICC) i*06/06/2022 Coronary artery calcification [I25.10] 11/2022 S/P BKA (below knee amputation) (HCC) [Z89.519] 05/31/2022 Tobacco use disorder [F17.200] 02/01/2023 Encounter Status:Closed by DEONTE HANDY [facility] SANJUANITA JERRY ([id number]) 1965 F Date Time Provider Department 11/25/24 ERICA HERMANWS During your visit today, we recorded the following information about you: Lyla AyershFARIDA 11/25/2024 4:06 PM Signed Emmy calling from [facility] asking for copy of patients HGBA1C and latest CBC and CMP be faxed to [phone]. Printed and faxed as requested. Allergies As of Date: 11/25/2024 (No Known Allergies) Date Reviewed: 11/24/2024 Reviewed by: Deonte Handy MA - Fully Assessed Reason for Visit: [facility] PAT requesting records [Other] Prescriptions as of 11/25/2024 - doxycycline monohydrate (MONODOX) 100 mg capsule Take 1 capsule by mouth every 12 hours. - LANTUS SOLOSTAR U-100 INSULIN 100 unit/mL (3 mL) Inject 8 Units subcutaneously every morning. - insulin lispro (HUMALOG KWIKPEN) 100 unit/mL Take 6 units with breakfast, 8 units with lunch, and 12 units with dinner. - ferrous sulfate 325 mg (65 mg iron) tablet Take 1 tablet by mouth two times a day. - amoxicillin-clavulan ate potassium (AUGMENTIN) 875-125 mg per tablet Take 1 tablet by mouth every 12 hours. - doxycycline hyclate (VIBRAMYCIN) 100 mg capsule Take 1 capsule by mouth every 12 hours. - gel dressing (CARRASYN HYDROGEL WOUND DRESS) topical Apply to affected area once daily. - Cholecalciferol, Vitamin D3, (VITAMIN D) 25 mcg (1,000 unit) cap Take 2 capsules by mouth once daily. Taking 2,000 units daily - DEXCOM G7 SENSOR taryn as directed. - collagenase (SANTYL) ointment Apply to affected area once daily. APPLY TO AFFECTED AREA - atorvastatin (LIPITOR) 40 mg tablet Take 1 tablet by mouth daily at bedtime. For cholesterol. - lisinopril (ZESTRIL) 5 mg tablet Take 1 tablet by mouth once daily. - Magnesium Chloride (SLOW-MAG) 71.5 mg TbEC Take 2 tablets by mouth once daily. - calcium carbonate (CALTRATE) 600 mg calcium (1,500 mg) tab Take 1,200 mg by mouth once daily. - aspirin, enteric coated (ASPIRIN, ENTERIC COATED) 81 mg EC tablet Take 81 mg by mouth once daily. - albuterol HFA (PROVENTIL HFA, VENTOLIN HFA) 90 mcg/actuation inhaler Inhale 2 Puffs as instructed every 4 hours as needed for wheezing/shortness of breath. - glipiZIDE (GLUCOTROL) 5 mg tablet Take 5 mg by mouth two times a day before meals. - blood sugar diagnostic(TRUETRACK TEST STRIPS) Test blood sugars twice daily. - blood-glucose meter(TRUETRACK BLOOD GLUCOSE SYSTEM KIT) Test glucose as directed - blood-glucose control, low(TRUETRACK GLUCOSE SOLN) Test controls as needed - LANCETS Test blood sugars once daily, 250.00, non insulin dep Meds Comments as of 02/25/2014: Problem List As Of Date 11/25/2024 Noted Resolved COUGH [R05.9] 05/19/2007 09/29/2007 GOITER NOS [E04.9] 09/29/2007 DM type 2 with diabetic peripheral neuropathy (*09/29/2007 Anxiety [F41.9] 10/14/2009 Hypertension [I10] 01/24/2010 Depression [F32.A] 01/30/2010 Abnormal mammogram [R92.8] 07/13/2013 Gas gangrene of extremity (HCC) [A48.0] 05/31/2022 MRSA bacteremia [R78.81, B95.62] 06/04/2022 Infection due to anaerobes [A49.8] 06/04/2022 Peripherally inserted central catheter (PICC) i*06/06/2022 Coronary artery calcification [I25.10] 11/2022 S/P BKA (below knee amputation) (HCC) [Z89.519] 05/31/2022 Tobacco use disorder [F17.200] 02/01/2023 Encounter Status:Closed by ANGUS AYERS on 11/25/24 Normal [facility] CNPN Telephone (FAMPWS) SANJUANITA JERRY ([id number]) 1965 F Date Time Provider Department 11/25/24 ERICA HERMAN During your visit today, we recorded the following information about you: Erica Herman MD 11/25/2024 7:50 AM Signed Repeat blood work shows continued kidney impairment, stable anemia, Elevated WBC and platelets, and iron deficiency. Her kidney impairment should not delay her surgery, but I would recommend she see nephrology since it is persistent. She was treated with Cipro last month for UTI. I will repeat UA and renal US for further workup. Recommend low sodium diet <2,000 mg per day, avoidance of NSAIDs, and increased water intake. Will also place referral to hematology for iron deficiency anemia despite her taking iron supplement BID. Will likely need IV iron infusion. Will check FOBT to rule out GI bleed. Elevated WBC and platelets are likely caused by her chronic foot wound and inflammation. I would have her continue treatment of her wound with Dr. Otoole and notify their office immediately with symptoms of fever/chills, spreading redness, pus drainage, increased pain, or swelling. Please fax results and my office visit to Dr. Otoole' office. Deonte Handy MA 11/25/2024 2:18 PM Signed Patient informed and verbalized understanding. LUIZ Payne Christopher B, MD 11/25/2024 2:19 PM Signed Addended by: ERICA HERMAN on: 11/25/2024 02:19 PM Modules accepted: Orders Allergies As of Date: 11/25/2024 (No Known Allergies) Date Reviewed: 11/24/2024 Reviewed by: Deonte Handy MA - Fully Assessed Reason for Visit: Results [95] Primary Visit Diagnosis:VIJAY (acute kidney injury) [N17.9] Order(s):US KIDNEY/BLADDER [[id number]] Order #: [id number] FUTURE Prescriptions as of 11/25/2024 - doxycycline monohydrate (MONODOX) 100 mg capsule Take 1 capsule by mouth every 12 hours. - LANTUS SOLOSTAR U-100 INSULIN 100 unit/mL (3 mL) Inject 8 Units subcutaneously every morning. - insulin lispro (HUMALOG KWIKPEN) 100 unit/mL Take 6 units with breakfast, 8 units with lunch, and 12 units with dinner. - ferrous sulfate 325 mg (65 mg iron) tablet Take 1 tablet by mouth two times a day. - amoxicillin-clavulan ate potassium (AUGMENTIN) 875-125 mg per tablet Take 1 tablet by mouth every 12 hours. - doxycycline hyclate (VIBRAMYCIN) 100 mg capsule Take 1 capsule by mouth every 12 hours. - gel dressing (CARRASYN HYDROGEL WOUND DRESS) topical Apply to affected area once daily. - Cholecalciferol, Vitamin D3, (VITAMIN D) 25 mcg (1,000 unit) cap Take 2 capsules by mouth once daily. Taking 2,000 units daily - DEXSimparel G7 SENSOR taryn as directed. - collagenase (SANTYL) ointment Apply to affected area once daily. APPLY TO AFFECTED AREA - atorvastatin (LIPITOR) 40 mg tablet Take 1 tablet by mouth daily at bedtime. For cholesterol. - lisinopril (ZESTRIL) 5 mg tablet Take 1 tablet by mouth once daily. - Magnesium Chloride (SLOW-MAG) 71.5 mg TbEC Take 2 tablets by mouth once daily. - calcium carbonate (CALTRATE) 600 mg calcium (1,500 mg) tab Take 1,200 mg by mouth once daily. - aspirin, enteric coated (ASPIRIN, ENTERIC COATED) 81 mg EC tablet Take 81 mg by mouth once daily. - albuterol HFA (PROVENTIL HFA, VENTOLIN HFA) 90 mcg/actuation inhaler Inhale 2 Puffs as instructed every 4 hours as needed for wheezing/shortness of breath. - glipiZIDE (GLUCOTROL) 5 mg tablet Take 5 mg by mouth two times a day before meals. - blood sugar diagnostic(TRUETRACK TEST STRIPS) Test blood sugars twice daily. - blood-glucose meter(TRUETRACK BLOOD GLUCOSE SYSTEM KIT) Test glucose as directed - blood-glucose control, low(TRUETRACK GLUCOSE SOLN) Test controls as needed - LANCETS Test blood sugars once daily, 250.00, non insulin dep Meds Comments as of 02/25/2014: Problem List As Of Date 11/25/2024 Noted Resolved COUGH [R05.9] 05/19/2007 09/29/2007 GOITER NOS [E04.9] 09/29/2007 DM type 2 with diabetic peripheral neuropathy (*09/29/2007 Anxiety [F41.9] 10/14/2009 Hypertension [I10] 01/24/2010 Depression [F32.A] 01/30/2010 Abnormal mammogram [R92.8] 07/13/2013 Gas gangrene of extremity (HCC) [A48.0] 05/31/2022 MRSA bacteremia [R78.81, B95.62] 06/04/2022 Infection due to anaerobes [A49.8] 06/04/2022 Peripherally inserted central catheter (PICC) i*06/06/2022 Coronary artery calcification [I25.10] 11/2022 S/P BKA (below knee amputation) (HCC) [Z89.519] 05/31/2022 Tobacco use disorder [F17.200] 02/01/2023 Encounter Status:Closed by DEONTE HANDY on 11/25/24 [facility] MR/PATMiles 11-25-2024 MR/PAT.[facility] Medical Records Department [address] [place] [address] PAT - Anesthesia 11/25/24 1617 MR#: [id number] Acct: [id number] Name: SANJUANITA JERRY Rep #: [id number] : 1965 59 From: Dom Valdivia MD PCP: Dr. Art Herman MD Status:PRE [facility] Y Race: C Location: [facility] Pre-Assessment Diagnosis/Proposed Procedure Planned Operative Procedure(s): INCISION OF THE BONE CORTEX OF THE LEFT FIFTH METATARSAL WITH DELAYED PRIMARY CLOSURE SKIN GRAFT SITE PREP Anesthesia History Anesthesia History - director packaging: Anesthesia History - director packaging Hx Hospitalization No 11/20/24 15:15 Any Problems With Anesthesia No 11/20/24 15:15 Cholinesterase deficiency No 11/20/24 15:15 You/Your Family Experience No 11/20/24 15:15 fever (hyperthermia) with Relationship Recent Exposure to Contagious No 07/27/24 11:37 Disease Does patient have nerve No 11/20/24 15:15 stimulator Patient instructed to have device shut off --Does patient have Pacemaker or ICD? When Was Last Pacemaker Check QUESTION #4 FULL TEXT: You/Your Family Experience fever (hyperthermia) with Anesthesia Last Oral Intake Last Oral intake: Last Oral Intake NPO since Meds taken in AM with sips of water? 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 - director packaging: PONV - director packaging Female Yes 11/20/24 15:15 HX of Motion Sickness No 11/20/24 15:15 HX of N/V After Surgery No 11/20/24 15:15 Non-Smoker No 11/20/24 15:15 Duration of Surgery greater Yes 11/20/24 15:15 than 60 minutes Number of Risk Factors 2 11/20/24 15:15 PONV Score Moderate Risk 11/20/24 15:15 Height Weight Height Weight: Anesthesia: Height Weight Height 4 ft 11 in 11/04/24 11:45 Respiratory Assessment Respiratory Assessment - director packaging: Respiratory Tract Infection Hx - director packaging Hx Respiratory Tract Infection No 11/20/24 15:15 STOP Sleep Apnea STOP Sleep Apnea - director packaging: STOP Sleep Apnea - director packaging Hx Hypertension No 11/20/24 15:15 Hx Sleep Apnea No 11/20/24 15:15 CPAP No 07/27/24 11:37 BIPAP Do you snore loudly (louder No 11/20/24 15:15 than talking or can be heard Do you often feel tired/ No 11/20/24 15:15 fatigued/ sleepy during daytime? Has anyone observed you stop No 11/20/24 15:15 breathing during sleep? STOP Results Negative 11/20/24 15:15 QUESTION #5 FULL TEXT : Do you snore loudly (louder than talking or can be heard through closed doors)? 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 Specify any problems Hx of Preganancy in last 3 No 11/20/24 15:15 Months Nurse Filling Out Transfusion DSCHRIBER 11/20/24 15:15 Questions: Date: 11/20/24 11/20/24 15:15 Time: 15:18 11/20/24 15:15 Patient unable to answer at this time (ie. confused, unrespo /Reproducti on History /Reproducti ve History - director packaging: /Reproducti ve Hx- director packaging Hx Now No 11/20/24 15:15 Gestational Age (in weeks): EDC: Hx Hx Para Hx Section SAB No 11/20/24 15:15 [facility] Medical History (Updated 11/20/24 @ 15:27 by Emmy Moya) Wears glasses Insulin dependent diabetes mellitus Ambulates with cane Low iron High cholesterol Dietary restriction Heartburn Cardiology follow-up encounter History of stress test MRSA (methicillin resistant staph aureus) culture positive Smoker Cellulitis and abscess of right lower extremity Sinus tachycardia 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 Normal [facility] CBC W Auto Differential pane l (Bld)on 11-24-2024 Basophils (Bld) [#/Vol] 0.11 10*3/uL High [facility] Basophils/100 WBC (Bld) 0.7 % [facility] Differential cell count method Nom (Bld) Auto [facility] Eosinophils (Bld) [#/Vol] 0.16 10*3/uL [facility] Eosinophils/100 WBC (Bld) 1.0 % [facility] Erythrocyte distribution width (RBC) [Ratio] 15.1 % High 11.5 - 15.0 % [facility] Hematocrit (Bld) [Volume fraction] 26.6 % Low 36.0 - 46.0 % [facility] Hemoglobin (Bld) [Mass/Vol] 8.4 g/dL Low 11.5 - 15.5 g/dL [facility] Immature granulocytes (Bld) [#/Vol] 0.08 10*3/uL [facility] Immature granulocytes/100 WBC (Bld) 0.5 % [facility] Interpretation and review of laboratory results Abnormal [facility] Lymphocytes (Bld) [#/Vol] 2.71 10*3/uL [facility] Lymphocytes/100 WBC (Bld) 16.3 % [facility] MCH (RBC) [Entitic mass] 27.0 pg 26. 0 - 34.0 pg [facility] MCHC (RBC) [Mass/Vol] 31.6 g/dL 30.5 - 36.0 g/dL [facility] MCV (RBC) [Entitic vol] 85.5 fL 80.0 - 100.0 fL [facility] Monocytes (Bld) [#/Vol] 0.95 10*3/uL High [facility] Monocytes/100 WBC (Bld) 5.7 % [facility] Neutrophils (Bld) [#/Vol] 12.63 10*3/uL High [facility] Neutrophils/100 WBC (Bld) 75.8 % [facility] Nucleated RBC (Bld) [#/Vol] [facility] Nucleated RBC/100 WBC (Bld) [Ratio] 0.0 % /100 WBC [facility] Platelet mean volume (Bld) [Entitic vol] 11.2 fL 9.0 - 12.7 fL [facility] Platelets (Bld) [#/Vol] 430 10*3/uL High [facility] RBC (Bld) [#/Vol] 3.11 10*6/uL Low 3.90 - 5.2 0 m/uL [facility] WBC (Bld) [#/Vol] 16.64 10*3/uL High [facility] Basophils (Bld) [#/Vol] 0.11 10*3/uL High <0.11 [facility] Comment on above: Order Comment: Speci men Type: BLOOD SPECIMENOrdering Facility: [facility] Address: [address] [place] [address] Performed By: #### 5 7021-8 ####[facility] LABCLIA [id number] [address] [place] Basophils/100 WBC (Bld) 0.7 % Normal [facility] Comment on above: Order Comment: Speci men Type: BLOOD SPECIMENOrdering Facility: [facility] Address: [address] [place] [address] Performed By: #### 5 7021-8 ####[facility] LABCLIA [id number] [place] [address] [place] Differential cell count method Nom (Bld) Auto Normal [facility] Comment on above: Order Comment: Speci men Type: BLOOD SPECIMENOrdering Facility: [facility] Address: [address] [place] [address] Performed By: #### 5 7021-8 ####[facility] LABCLIA [id number] [place] [address] [place] Eosinophils (Bld) [#/Vol] 0.16 10*3/uL Normal <0.46 [facility] Comment on above: Order Comment: Speci men Type: BLOOD SPECIMENOrdering Facility: [facility] Address: [address] [place] [address] Performed By: #### 5 7021-8 ####[facility] LABCLIA [id number] [address] [place] Eosinophils/100 WBC (Bld) 1.0 % Normal [facility] Comment on above: Order Comment: Speci men Type: BLOOD SPECIMENOrdering Facility: [facility] Address: [address] [place] [address] Performed By: #### 5 7021-8 ####[facility] LABCLIA [id number] [place] [address] [place] Erythrocyte distribution width (RBC) [Ratio] 15.1 % High 11.5-15.0 [facility] Comment on above: Order Comment: Speci men Type: BLOOD SPECIMENOrdering Facility: [facility] Address: [address] [place] [address] Performed By: #### 5 7021-8 ####[facility] [id number] [place] [address] [place] Hematocrit (Bld) [Volume fraction] 26.6 % Low 36.0-46.0 [facility] Comment on above: Order Comment: Speci men Type: BLOOD SPECIMENOrdering Facility: [facility] Address: [address] [place] [address] Performed By: #### 5 7021-8 ####[facility] [id number] [place] [address] [place] Hemoglobin (Bld) [Mass/Vol] 8.4 g/dL Low 11.5-15.5 [facility] Comment on above: Order Comment: Speci men Type: BLOOD SPECIMENOrdering Facility: [facility] Address: [address] [place] [address] Performed By: #### 5 7021-8 ####[facility] [id number] [place] [address] [place] Immature granulocytes (Bld) [#/Vol] 0.08 10*3/uL Normal <0.10 [facility] Comment on above: Order Comment: Speci men Type: BLOOD SPECIMENOrdering Facility: [facility] Address: [address] [place] [address] Performed By: #### 5 7021-8 ####[facility] [id number] [place] [address] [place] Immature granulocytes/100 WBC (Bld) 0.5 % Normal [facility] Comment on above: Order Comment: Speci men Type: BLOOD SPECIMENOrdering Facility: [facility] Address: [address] [place] [address] Performed By: #### 5 7021-8 ####[facility] LABIA [id number] [place] [address] [place] Lymphocytes (Bld) [#/Vol] 2.71 10*3/uL Normal 1.00-4.00 [facility] Comment on above: Order Comment: Speci men Type: BLOOD SPECIMENOrdering Facility: [facility] Address: [address] [place] [address] Performed By: #### 5 7021-8 ####[facility] [id number] [place] [address] [place] Lymphocytes/100 WBC (Bld) 16.3 % Normal [facility] Comment on above: Order Comment: Speci men Type: BLOOD SPECIMENOrdering Facility: [facility] Address: [address] [place] [address] Performed By: #### 5 7021-8 ####[facility]IA [id number] [place] [address] [place] MCH (RBC) [Entitic mass] 27.0 pg Normal 26.0-34.0 [facility] Comment on above: Order Comment: Speci men Type: BLOOD SPECIMENOrdering Facility: [facility] Address: [address] [place] [address] Performed By: #### 5 7021-8 ####[facility] [id number] [place] [address] [place] MCHC (RBC) [Mass/Vol] 31.6 g/dL Normal 30.5-36.0 [facility] Comment on above: Order Comment: Speci men Type: BLOOD SPECIMENOrdering Facility: [facility] Address: [address] [place] [address] Performed By: #### 5 7021-8 ####[facility] [id number] [place] [address] [place] MCV (RBC) [Entitic vol] 85.5 fL Normal 80.0-100.0 [facility] Comment on above: Order Comment: Speci men Type: BLOOD SPECIMENOrdering Facility: [facility] Address: [address] [place], [place] [address] Performed By: #### 5 7021-8 ####[facility] [id number] [place] [address] [place] Monocytes (Bld) [#/Vol] 0.95 10*3/uL High <0.87 [facility] Comment on above: Order Comment: Speci men Type: BLOOD SPECIMENOrdering Facility: [facility] Address: [address] [place] [address] Performed By: #### 5 7021-8 ####[facility] [id number] [address], [place] [address] [place] Monocytes/100 WBC (Bld) 5.7 % Normal [facility] Comment on above: Order Comment: Speci men Type: BLOOD SPECIMENOrdering Facility: [facility] Address: [address] [place] [address] Performed By: #### 5 7021-8 ####[facility] [id number] [place] [address] [place] Neutrophils (Bld) [#/Vol] 12.63 10*3/uL High 1.45-7.50 [facility] Comment on above: Order Comment: Speci men Type: BLOOD SPECIMENOrdering Facility: [facility] Address: [address] [place] [address] Performed By: #### 5 7021-8 ####[facility] [id number] [place] [id number] [place] Neutrophils/100 WBC (Bld) 75.8 % Normal [facility] Comment on above: Order Comment: Speci men Type: BLOOD SPECIMENOrdering Facility: [facility] Address: [address] [place] [address] Performed By: #### 5 7021-8 ####[facility] [id number] [place] [id number] [place] Nucleated RBC (Bld) [#/Vol] 10*3/uL Normal <0.01 [facility] Comment on above: Order Comment: Speci men Type: BLOOD SPECIMENOrdering Facility: [facility] Address: [address] [place] [address] Performed By: #### 5 7021-8 ####[facility] [id number] [place] [address] [place] Nucleated RBC/100 WBC (Bld) [Ratio] 0.0 /100 WBC Normal [facility] Comment on above: Order Comment: Speci men Type: BLOOD SPECIMENOrdering Facility: [facility] Address: [address] [place] [address] Performed By: #### 5 7021-8 ####[facility] [id number] [place] [address] [place] Platelet mean volume (Bld) [Entitic vol] 11.2 fL Normal 9.0-12.7 [facility] Comment on above: Order Comment: Speci men Type: BLOOD SPECIMENOrdering Facility: [facility] Address: [address] [place] [address] Performed By: #### 5 7021-8 ####[facility] [id number] [place] [address] [place] Platelets (Bld) [#/Vol] 430 10*3/uL High 150-400 [facility] Comment on above: Order Comment: Speci men Type: BLOOD SPECIMENOrdering Facility: [facility] Address: [address] [place] [address] Performed By: #### 5 7021-8 ####[facility] [id number] [place] [address] [place] RBC (Bld) [#/Vol] 3.11 10*6/uL Low 3.90-5.20 [facility] Comment on above: Order Comment: Speci men Type: BLOOD SPECIMENOrdering Facility: [facility] Address: [address] [place] [address] Performed By: #### 5 7021-8 ####[facility] [id number] [place] [address] [place] WBC (Bld) [#/Vol] 16.64 10*3/uL High 3.70-11.00 [facility] Comment on above: Order Comment: Speci men Type: BLOOD SPECIMENOrdering Facility: [facility] Address: [address] [place] [address] Performed By: #### 5 7021-8 ####[facility] [id number] [place] [id number] [facility] [place] CNOVon 11-24-2024 CNOV Office Visit (FAMPWS) SANJUANITA JERRY ([id number]) 1965 F Date Time Provider Department 11/24/24 2:00 PM ERICA HERMAN [facility] During your visit today, we recorded the following information about you: Pulse Blood pressure Weight Height 64/minute 100/58 41 kg 1.524 m Erica Herman MD 11/24/2024 2:33 PM Signed Chief Complaint Patient presents with: Medical Clearance Recording using Booklr software for draft documentation of the visit was discussed with the patient/authorized practice representative; all questions welcomed and answered. Patient/authorized practice representative agreed to proceed HPI Sanjuanita Jerry is a 59 year old female who presents here today for Above Complaints. Pre-Operative Clearance: - Partial left metatarsal resection scheduled for December [address] Otoole. - Previous pre-op clearance completed on October 26, including EKG and blood work. EKG at that time was NSR. Labs showed anemia and VIJAY. Advised patient to increase iron to BID and limit sodium intake and avoid NSAIDs. Has been compliant with these recommendations. Due for repeat labs today. - No complications with anesthesia in the past. - Sanjuanita denies recent fevers, chills, chest pain, dyspnea, palpitations, or leg swelling. - Able to climb stairs without chest pain or dyspnea. (METS 5.5). - No unusual weight loss or gain. - No pain in calves when walking long distances. - Normal stress test in August of last year. Diabetes Mellitus: - Managed by Dr. Wan Madrigal. - Recent A1c improved to 7.5 from 8.2. - Insulin regimen adjusted: Lantus 8 units in the morning, Humalog 6 units with breakfast, 8 units at lunch, and 12 units at dinner. - Blood glucose levels monitored three times daily: fasting, post-dinner, and bedtime. - Morning and evening glucose readings reported as "really good"; afternoon readings variable. - No episodes of hypoglycemia reported. Anemia: - Previously noted improving anemia. - Sanjuanita is taking iron supplements twice daily. Due for repeat labs. Acute Kidney Injury: - Mild acute kidney injury noted in previous blood work. - Sanjuanita is taking Lisinopril for renal protection. Foot Ulcer: - Ulceration of the plantar aspect of the left metatarsal deemed "not salvageable." - Signs of infection related to the foot noted in previous blood work. Tobacco Use: - Sanjuanita continues to smoke cigarettes. not interested in help with cessation. Past medical history, appointments, medications, allergies reviewed. Previous Medical History PAST MEDICAL HISTORY Diagnosis Date Cataracts, bilateral s/p surgery in 2021 at [facility] Coronary artery calcification 11/[address] chest Diabetic neuropathy ([facility]) Folic acid deficiency Gas gangrene of lower extremity ([facility]) Goiter, unspecified 09/29/2007 Hypokalemia Hypomagnesemia Known medical problems rt BKA PAD (peripheral artery disease) S/P BKA (below knee amputation) ([facility]) 05/31/2022 right Tobacco use disorder Type II or unspecified type diabetes mellitus without mention of complication, uncontrolled Endo: Dr. Madrigal Previous Surgical History PAST SURGICAL HISTORY Procedure Laterality Date APPENDECTOMY HX 80s CATARACT EXTRACTION HX Bilateral 04/2022 EGD W/O BRSH SPEC VARICIES INJ 2019 with esophageal dilation LEG AMPUTATION HX Right 06/03/2022 BKA PAST SURGICAL HISTORY OF Lt thumb straightened Family History FAMILY HISTORY Problem Relation Age of Onset Stroke Mother Ischemic Heart Disease Mother Diabetes Mother Hypertension Mother Stroke Father Ischemic Heart Disease Father Hypertension Father Diabetes Father Kidney failure Sister Ischemic Heart Disease Brother Massive AR at age 38 Breast Cancer Paternal Grandmother Patient Allergies ALLERGIES No Known Allergies Current Medications Current Outpatient Medications on File Prior to Visit Medication Sig doxycycline monohydrate (MONODOX) 100 mg capsule Take 1 capsule by mouth every 12 hours. ferrous sulfate 325 mg (65 mg iron) tablet Take 1 tablet by mouth two times a day. amoxicillin-clavulan ate potassium (AUGMENTIN) 875-125 mg per tablet Take 1 tablet by mouth every 12 hours. doxycycline hyclate (VIBRAMYCIN) 100 mg capsule Take 1 capsule by mouth every 12 hours. gel dressing (CARRASYN HYDROGEL WOUND DRESS) topical Apply to affected area once daily. Cholecalciferol, Vitamin D3, (VITAMIN D) 25 mcg (1,000 unit) cap Take 2 capsules by mouth once daily. Taking 2,000 units daily DEXCOM G7 SENSOR taryn as directed. LANTUS SOLOSTAR U-100 INSULIN 100 unit/mL (3 mL) Inject 15 Units subcutaneously every morning. insulin lispro (HUMALOG KWIKPEN) 100 unit/mL Inject 5 Units subcutaneously three times a day before meals. atorvastatin (LIPITOR) 40 mg tablet Take 1 tablet by mouth daily at bedtime. For cholesterol. lisinopril (ZESTR (more content not included)... Normal [facility] Comprehensive metabolic 2000 panelon 11-24-2024 Albumin [Mass/Vol] 3.9 g/dL Normal 3.9-4.9 [facility] Comment on above: Order Comment: Gil sexton Type: BLOOD SPECIMENOrdering Facility: [facility] Address: [address] [place] [address] Performed By: #### 5 0190-8, 2276-4, 2284-8, 43939-6 ####[facility] [id number] [place] [address] [place] ALP [Catalytic activity/Vol] 105 U/L Normal 34-123 [facility] Comment on above: Order Comment: Gil sexton Type: BLOOD SPECIMENOrdering Facility: [facility] Address: [address] [place] [address] Performed By: #### 5 0190-8, 2276-4, 2284-8, 99325-6 ####[facility] [id number] [place] [address] [place] ALT [Catalytic activity/Vol] 8 U/L Normal 7-38 [facility] Comment on above: Order Comment: Speci men Type: BLOOD SPECIMENOrdering Facility: [facility] Address: [address] [place] [address] Performed By: #### 5 0190-8, 6-4, 2284-8, 07596-1 ####[facility]IA [id number] [place] [address] [place] Anion gap [Moles/Vol] 18 mmol/L High 8-15 [facility] Comment on above: Order Comment: Speci men Type: BLOOD SPECIMENOrdering Facility: [facility] Address: [address] [place] [address] Performed By: #### 5 0190-8, 2276-4, 228-8, 56866-2 ####[facility] [id number] [place] [address] [place] AST [Catalytic activity/Vol] 8 U/L Low 13-35 [facility] Comment on above: Order Comment: Speci men Type: BLOOD SPECIMENOrdering Facility: [facility] Address: [address] [place] [address] Performed By: #### 5 0190-8, 6-4, 228-8, 60557-6 ####[facility] [id number] [place] [id number] [place] Bilirubin [Mass/Vol] 0.2 mg/dL Normal 0.2-1.3 [facility] Comment on above: Order Comment: Speci men Type: BLOOD SPECIMENOrdering Facility: [facility] Address: [address] [place] [address] Performed By: #### 5 0190-8, 2276-4, 2284-8, 60425-8 ####[facility] [id number] [address] [address] [place] Calcium [Mass/Vol] 10.3 mg/dL High 8.5-10.2 [facility] Comment on above: Order Comment: Speci men Type: BLOOD SPECIMENOrdering Facility: [facility] Address: [address] [place] [address] Performed By: #### 5 0190-8, 2276-4, 228-8, 06283-2 ####[facility] [id number] [place] [id number] [place] Chloride [Moles/Vol] 103 mmol/L Normal 98-107 [facility] Comment on above: Order Comment: Speci men Type: BLOOD SPECIMENOrdering Facility: [facility] Address: [address] [place] [address] Performed By: #### 5 0190-8, 2276-4, 228-8, 05305-3 ####[facility] [id number] [place] [id number] [place] CO2 [Moles/Vol] 15 mmol/L Low 22-30 [facility] Comment on above: Order Comment: Speci men Type: BLOOD SPECIMENOrdering Facility: [facility] Address: [address] [place], [place] [address] Performed By: #### 5 0190-8, 2276-4, 228-8, 15498-8 ####[facility] [id number] [place] [id number] [place] Creatinine [Mass/Vol] 1.40 mg/dL High 0.58-0.96 [facility] Comment on above: Order Comment: Speci men Type: BLOOD SPECIMENOrdering Facility: [facility] Address: [address] [place] [address] Performed By: #### 5 0190-8, 2276-4, 2284-8, 82634-4 ####[facility] [id number] [place] [address] [place] eGFRcr SerPlBld CKD-EPI 2020 44 mL/min/1.73m??? Low >=60 [facility] Comment on above: Order Comment: Gil sexton Type: BLOOD SPECIMENOrdering Facility: [facility] Address: [address] [place] [address] Result Comment: Judy mated Glomerular Filtration Rate (eGFR) is calculated using the 2020 CKD-EPI creatinine equation. This equation utilizes serum creatinine, sex, and age as parameters. The creatinine assay has traceable calibration to isotope dilution-mass spectrometry. Refer to KDIGO guidelines for clinical interpretation. In patients with unstable renal function, e.g. those with acute kidney injury, the eGFR may not accurately reflect actual GFR. Performed By: #### 5 0190-8, 2276-4, 2284-8, 19952-5 ####[facility] [id number] [place] [address] [place] Glucose [Mass/Vol] 189 mg/dL High 74-99 [facility] Comment on above: Order Comment: Gil sexton Type: BLOOD SPECIMENOrdering Facility: [facility] Address: [address] [place] [address] Result Comment: The [place] Diabetes Association (ADA) provides guidance for cutoff values for fasting glucose and random glucose. The ADA defines fasting as no caloric intake for at least 8 hours. Fasting plasma glucose results between 100 to 125 mg/dL indicate increased risk for diabetes (prediabetes). Fasting plasma glucose results greater than or equal to 126 mg/dL meet the criteria for diagnosis of diabetes. In the absence of unequivocal hyperglycemia, results should be confirmed by repeat testing. In a patient with classic symptoms of hyperglycemia or hyperglycemic crisis, random plasma glucose results greater than or equal to 200 mg/dL meet the criteria for diagnosis of diabetes. Reference: Standards of Medical Care in Diabetes 2016, [place] [employer] Association. Diabetes Care. 2016.39(Suppl 1). Performed By: #### 5 0190-8, 6-4, 228-8, 81252-8 ####[facility] [id number] [address] [address] [place] Potassium [Moles/Vol] 4.4 mmol/L Normal 3.7-5.1 [facility] Comment on above: Order Comment: Speci men Type: BLOOD SPECIMENOrdering Facility: [facility] Address: [address] [place], [place] [address] Performed By: #### 5 0190-8, 6-4, 2283-8, 68400-3 ####[facility] [id number] [place] [id number] [place] Protein [Mass/Vol] 7.4 g/dL Normal 6.3-8.0 [facility] Comment on above: Order Comment: Speci men Type: BLOOD SPECIMENOrdering Facility: [facility] Address: [address] [place] [address] Performed By: #### 5 0190-8, 2276-4, 2283-8, 28321-0 ####[facility] [id number] [place] [id number] [place] Sodium [Moles/Vol] 136 mmol/L Normal 136-144 [facility] Comment on above: Order Comment: Speci men Type: BLOOD SPECIMENOrdering Facility: [facility] Address: [address] [place] [address] Performed By: #### 5 0190-8, 6-4, 2283-8, 30474-9 ####[facility] [id number] [place] [id number] [place] Urea nitrogen [Mass/Vol] 43 mg/dL High 7-21 [facility] Comment on above: Order Comment: Speci men Type: BLOOD SPECIMENOrdering Facility: [facility] Address: [address] [place] [address] Performed By: #### 5 0190-8, 2276-4, 2284-8, 89206-6 ####[facility] [id number] [place] [address] [place] Ferritin SerPl-[facility] 2024 Ferritin [Mass/Vol] 107.0 ng/mL Normal 14.7-205.1 [facility] Comment on above: Order Comment: Speci men Type: BLOOD SPECIMENOrdering Facility: [facility] Address: [address] [place] [address] Performed By: #### 5 0190-8, 6-4, 2283-8, 75471-7 ####[facility] [id number] [place] [address] [place] Folate SerPl-[facility] 11-25-19 25 Folate [Mass/Vol] ng/mL Normal >4.7 [facility] Comment on above: Order Comment: Speci men Type: BLOOD SPECIMENOrdering Facility: [facility] Address: [address] [place] [address] Result Comment: A re sult of > 20 ng/mL is not necessarily indicative of a pathologic or treatable condition: it reflects a limitation of the test methodology. Assay reference range: 4.8 to 24.2 ng/mL. Suitable for detection of folate deficiency. Reference: Folate III (Folate III) [package insert V 1.0 Indian]. [facility], [place], [place]: January 2015. Performed By: #### 5 0190-8, 6-4, 2283-8, 74401-2 ####[facility] [id number] [place] [id number] [place] Iron and Iron binding capaci panelon 11-24-2024 Iron [Mass/Vol] 14 ug/dL Low 41-186 [facility] Comment on above: Order Comment: Speci men Type: BLOOD SPECIMENOrdering Facility: [facility] Address: [address] [place], [place] [address] Performed By: #### 5 0190-8, 2276-4, 2284-8, 36255-3 ####[facility] [id number] [place] [id number] [place] Iron binding capacity [Mass/Vol] 312 ug/dL Normal 232-386 [facility] Comment on above: Order Comment: Speci men Type: BLOOD SPECIMENOrdering Facility: [facility] Address: [address] [place] [address] Performed By: #### 5 0190-8, 2276-4, 2284-8, 24160-5 ####[facility] [id number] [place] [address] [place] Iron/TIBC [Molar ratio] 4.5 % Low 15.0-57.0 [facility] Comment on above: Order Comment: Speci men Type: BLOOD SPECIMENOrdering Facility: [facility] Address: [address] [place] [address] Performed By: #### 5 0190-8, 2276-4, 2284-8, 51188-1 ####[facility] [id number] [place] [address] [place] MR/PAT.Phillip 11-20-2024 MR/PATCODY [facility] Medical Records Department [address] [place] [address] PAT - Anesthesia 11/20/24 1646 MR#: [id number] Acct: [id number] Name: SANJUANITA JERRY Rep #: [id number] : 1965 59 From: Fransisco Sahni MD PCP: Dr. Art Herman MD Status:PRE [facility] Y Race: C Location: [facility] Pre-Assessment Diagnosis/Proposed Procedure Planned Operative Procedure(s): INCISION OF THE BONE CORTEX OF THE LEFT FIFTH METATARSAL WITH DELAYED PRIMARY CLOSURE SKIN GRAFT SITE PREP Anesthesia History Anesthesia History - director packaging: Anesthesia History - director packaging Hx Hospitalization No 11/20/24 15:15 Any Problems With Anesthesia No 11/20/24 15:15 Cholinesterase deficiency No 11/20/24 15:15 You/Your Family Experience No 11/20/24 15:15 fever (hyperthermia) with Relationship Recent Exposure to Contagious No 07/27/24 11:37 Disease Does patient have nerve No 11/20/24 15:15 stimulator Patient instructed to have device shut off --Does patient have Pacemaker or ICD? When Was Last Pacemaker Check QUESTION #4 FULL TEXT: You/Your Family Experience fever (hyperthermia) with Anesthesia Last Oral Intake Last Oral intake: Last Oral Intake NPO since Meds taken in AM with sips of water? 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 - director packaging: PONV - director packaging Female Yes 11/20/24 15:15 HX of Motion Sickness No 11/20/24 15:15 HX of N/V After Surgery No 11/20/24 15:15 Non-Smoker No 11/20/24 15:15 Duration of Surgery greater Yes 11/20/24 15:15 than 60 minutes Number of Risk Factors 2 11/20/24 15:15 PONV Score Moderate Risk 11/20/24 15:15 Height Weight Height Weight: Anesthesia: Height Weight Height 4 ft 11 in 11/04/24 11:45 Respiratory Assessment Respiratory Assessment - director packaging: Respiratory Tract Infection Hx - director packaging Hx Respiratory Tract Infection No 11/20/24 15:15 STOP Sleep Apnea STOP Sleep Apnea - director packaging: STOP Sleep Apnea - director packaging Hx Hypertension No 11/20/24 15:15 Hx Sleep Apnea No 11/20/24 15:15 CPAP No 07/27/24 11:37 BIPAP Do you snore loudly (louder No 11/20/24 15:15 than talking or can be heard Do you often feel tired/ No 11/20/24 15:15 fatigued/ sleepy during daytime? Has anyone observed you stop No 11/20/24 15:15 breathing during sleep? STOP Results Negative 11/20/24 15:15 QUESTION #5 FULL TEXT : Do you snore loudly (louder than talking or can be heard through closed doors)? 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 Specify any problems Hx of Preganancy in last 3 No 11/20/24 15:15 Months Nurse Filling Out Transfusion DSCHRIBER 11/20/24 15:15 Questions: Date: 11/20/24 11/20/24 15:15 Time: 15:18 11/20/24 15:15 Patient unable to answer at this time (ie. confused, unrespo /Reproducti on History /Reproducti ve History - director packaging: /Reproducti ve Hx- director packaging Hx Now No 11/20/24 15:15 Gestational Age (in weeks): EDC: Hx Hx Para Hx Section SAB No 11/20/24 15:15 PFSH Medical History (Updated 11/20/24 @ 15:27 by Emmy Moya) Wears glasses Insulin dependent diabetes mellitus Ambulates with cane Low iron High cholesterol Dietary restriction Heartburn Cardiology follow-up encounter History of stress test MRSA (methicillin resistant staph aureus) culture positive Smoker Cellulitis and abscess of right lower extremity Sinus tachycardia 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 Normal [facility] Culture, Anaerobic Any Sourc daniel 11-14-2024 CUAN L LATERAL FOOT ULCER No anaerobic bacteria isolated. Normal [facility] Comment on above: Performed By: #### M 100.2000, M100.3000, M100.4001 ####[facility] [address] [place], [address] Wound Cultureon 11-14-2024 WC L LATERAL FOOT ULCER Copy of report sent to Infection Control Printer [id number] 11/14/24 1020 EFRAIN. Wound Culture Wound Culture Meth. resistant Staph. aureus Amount Growth 3+ mecA Testing not performed STAGA Amount Growth 3+ Streptococcus agalactiae (B) cefOXitin Susc Islt Doxycycline Islt MARINA <=0.5 S Clindamycin Islt MARINA Clindamycin.induced Susc Islt POS Erythromycin Islt MARINA R Gentamicin Islt MARINA <=0.5 S Linezolid Islt MARINA 2 S Moxifloxacin Islt MARINA 4 I Oxacillin Susc Islt >=4 R Tetracycline Islt MARINA <=1 S TMP SMX Islt MARINA <=10 S Vancomycin Islt MARINA 1 S Streptococcus agalactiae (B): REACTION Ampicillin Islt MARINA <=0.25 S cefTRIAXone Islt MARINA <=0.12 S Clindamycin Islt MARINA <=0.25 Clindamycin.induced Susc Islt NEG Linezolid Islt MARINA <=2 S Vancomycin Islt MARINA 0.5 S Normal [facility] Comment on above: Performed By: #### M 100.2000, M100.3000, M100.4001 ####[facility] [address] [place], [address] Gram Stainon 11-12-2024 GS L LATERAL FOOT ULCER Gram Stain 2+ Gram positive cocci 1+ White Blood Cells No Epithelial cells Normal [facility] Comment on above: Performed By: #### M 100.2000, M100.3000, M100.4001 ####[facility] [address] [facility] [place], [address] Anaerobic cultureOrdered By: Andriy Otoole on 11-11-2024 Bacteria identified Anaer cx Nom (Unsp spec) No anaerobic bacteria isolated. [facility] Gram stainOrdered By: Cher Otoole on 11-11-2024 Microscopic observation Gram stain Nom (Unsp spec) [facility] Routine wound cultureOrdered By: Andriy Otoole on 11-11-2024 Microbial culture, routine Meth. resistant Staph. aureus Abnormal [facility] Microbial culture, routine Streptococcus agalactiae (B) Abnormal [facility] Endocrinology Visit Reporton 11-04-2024 Endocrinology Visit Report [facility] [address] [place] [address] OFFICE VISIT Date of Service: 11/04/24 MR#: [id number] Acct: [id number] Name: SANJUANITA JERRY Rep #: [id number] : 1965 Provider: SINA morton Age/Sex: 59/F Location: [facility] Status: Signed Intake Vital Signs 08/26/24 10:55 10/07/24 14:33 11/04/24 11:45 Height 4 ft 11.5 in 4 ft 11 in 4 ft 11 in Weight: 96 lb BMI 19.3 BP 92/56 L Blood Pressure Location Lt brachial Position Sitting Pulse 108 H Pulse Source Monitor Pulse Oximetry (%) 92 Oxygen Delivery Method room air Intake Visit Reasons: 2 M FU Chief Complaint: f/u diabetes Cook Helper Required: No Accompanied by: Daughter Is patient in pain?: No Allergies No Known Allergies Allergy (Verified 08/26/24 10:57) Medications ???Medication ???Instructions ???Recorded ???Confirmed ???Type albuterol sulfate 90 mcg/actuation 2 puff inhalation Q4H PRN Sob / Or 10/01/18 11/04/24 History aerosol inhaler Wheezing atorvastatin 40 mg tablet 40 mg PO QHS cholesterol 02/26/23 11/04/24 History cholecalciferol (vitamin D3) 25 25 mcg PO DAILY supplement 3 11/04/24 History mcg (1,000 unit) tablet blood-glucose meter (True Metrix #1 ea 08/19/23 11/04/24 Rx Glucose Meter) insulin glargine 100 unit/mL (3 20 unit (0.2 mL) subcut DAILY #15 07/25/24 11/04/24 Rx mL) subcutaneous pen (Lantus mL Solostar U-100 Insulin) insulin lispro 100 unit/mL 5 unit (0.05 mL) subcut TIDAC #15 07/25/24 11/04/24 Rx subcutaneous pen (Humalog KwikPen mL (U-100) Insulin) lisinopril 10 mg tablet 10 mg PO DAILY #30 tabs 07/25/24 0 11/04/24 Rx loperamide 2 mg capsule 2 mg PO Q8 #0 caps 07/25/24 Rx blood-glucose sensor (Dexcom G7 #3 ea 08/06/24 11/04/24 Rx Sensor device) pen needle, diabetic 31 gauge x #100 ea 08/28/24 11/04/24 Rx 1/4" (1st Tier Unifine Pentips) folic acid 1 mg tablet 1 mg PO DAILY 10/07/24 11/04/24 Hi story True Metrix Glucose Test Strip #50 ea 11/04/24 11/04/24 Rx (blood sugar diagnostic) ferrous sulfate 325 mg (65 mg 325 mg PO BID supplement 11/04/24 11/04/24 History iron) tablet (FeroSul) [facility] Medical History MRSA (methicillin resistant staph aureus) culture positive Anemia Smoker Cellulitis and abscess of right lower extremity Type 2 diabetes mellitus with hyperglycemia, without long-term current use of insulin Sinus tachycardia seen on traffic monitor specialist Below knee amputation Dysphagia Acid reflux Diabetes Surgical History History of appendectomy Status post below knee amputation of right lower extremity history EGD with dilatation S/P appendectomy H/O thumb surgery Family History Grandmother Breast cancer Father Heart disease Hypertension Sister Thyroid disorder Aunt Thyroid disorder Other Arthritis CVA (cerebral vascular accident) Kidney disease Myocardial infarction Social History household members: family Smoking Status: Heavy Smoker (>10/day) alcohol intake: never substance use type: does not use what type of physical activity do you participate in: walking HPI HPI Chief Complaint: f/u diabetes Details: SANJUANITA JERRY, is a 59 F who presents to the office today for evaluation and management of diabetes. A1C with PCP on 10/26/24 was 8.2%, improved significantly from 07/22/24 at 13.7%. Weight is stable. Currently taking Lantus 12 u once daily and Humalog 5-7-8. Dexcom downloaded and reviewed- blood sugars decline during sleeping hours, she is having post meal elevations. She denies any significant episode of hypoglycemia that has required assistance from others. She is currently seeing the wound center for a non healing wound to left lateral foot, reports plan is to pursue surgery. BP controlled. Currently taking lisinopril 5 mg once daily. She takes a daily statin. Vitamin D low normal. She has significant osteoporosis and refuses treatment. Labs are up to date. Denies any acute concerns. ROS Const Constitutional: Positive for fatigue and weight change (loss) ENT ENT: No dizziness/vertigo Cardio Cardiology: No chest pain at rest, chest pain with exertion, shortness of breath or palpitations Musc Musculoskeletal: Positive for joint pain Psych Psychiatric: Positive for anxiety, Positive for depression, No Thoughts of harming yourself/Others and No suicidal ideation Gastro GI: Positive for heartburn Skin Skin: No wounds Endo Endocrine: Positive for fatigue and weight change (loss) Exam Const General: (more content not included)... Normal [facility] Bacteria Ur Culton 5 Bacteria identified Cx Nom (U) ORGANISM ID: 1 10,000 -<50,000 CFU/ml Proteus mirabilis ORGANISM ID: 1 (PROTEUS MIRABILIS) ANTIBIOTIC INTERPRETATION MARINA STATUS REFERENCE RANGE Ampicillin R >=32 F Susceptible <=8 , Intermediate >8 , Resistant >16 Cefazolin S <=4 F Susceptible 0-16 , Intermediate <0 or >16 , Resistant >16 For uncomplicated urinary tract infections, cefazolin results can be used to predict susceptibility or resistance to cephalexin. Ceftriaxone S <=1 F Susceptible <=1 , Intermediate >1 , Resistant >=4 Cefepime S <=1 F Susceptible <=2 , Susceptible-Dose Dependent >2 , Resistant >=16 Ertapenem S <=0.5 F Susceptible <=0.5 , Intermediate >.5 , Resistant >1 Meropenem S <=0.25 F Susceptible <=1 , Intermediate >1 , Resistant >2 Ampicillin/Sulbact R >=32 F Susceptible <=8 , Intermediate >8 , Resistant >16 Piperacillin/Tazobac S <=4 F Susceptible <16 , Susceptible-Dose Dependent >=16 , Resistant >=32 Gentamicin S <=1 F Susceptible <=2 , Intermediate >2 , Resistant >=8 Tobramycin S <=1 F Susceptible <4 , Intermediate >=4 , Resistant >=8 Trimeth sulfameth R >=320 F Susceptible <=40 , Resistant >40 Ciprofloxacin S <=0.25 F Susceptible <0.5 , Intermediate >=.5 , Resistant >=1 Nitrofurantoin R 128 F Susceptible <=32 , Intermediate >32 , Resistant >64 Abnormal [facility] Comment on above: Performed By: #### 6 30-4 ####[facility] [id number] [address] Urinalysis complete panel (U )on 10-29-2024 Bacteria LM.HPF (Urine sed) [#/Area] Negative Normal Negative [facility] Comment on above: Order Comment: Speci men Type: URINE SPECIMENOrdering Facility: [facility] Address: [address] [place] [address] Performed By: #### 2 4356-8 ####[facility] [id number] [address] [id number] [address] [place] Bilirubin Ql (U) Negative Normal Negative [facility] Comment on above: Order Comment: Speci men Type: URINE SPECIMENOrdering Facility: [facility] Address: [address] [place] [address] Performed By: #### 2 4356-8 ####[facility] LABCL[facility] [id number] [address] [address] [place] Clarity (Unsp spec) Cloudy Abnormal Clear [facility] Comment on above: Order Comment: Speci men Type: URINE SPECIMENOrdering Facility: [facility] Address: [address] [place] [address] Performed By: #### 2 4356-8 ####[facility]CL[facility] [id number] [address] STATES OF [facility] Color (U) Yellow Normal Yellow [facility] Comment on above: Order Comment: Speci men Type: URINE SPECIMENOrdering Facility: [facility] Address: [address] [place] [address] Performed By: #### 2 4356-8 ####[facility] LABCL[facility] [id number] [place] [id number] [place] Epithelial cells LM.HPF (Urine sed) [#/Area] Moderate Normal [facility] Comment on above: Order Comment: Speci men Type: URINE SPECIMENOrdering Facility: [facility] Address: [address] [place] [address] Performed By: #### 2 4356-8 ####[facility]CL[facility] [id number] [place] [id number] [place] Glucose Test strip (U) [Mass/Vol] Negative Normal Negative [facility] Comment on above: Order Comment: Speci men Type: URINE SPECIMENOrdering Facility: [facility] Address: [address] [place] [address] Performed By: #### 2 4356-8 ####[facility] [id number] [address] [place] [address] [place] Hemoglobin Ql (U) Negative Normal Negative [facility] Comment on above: Order Comment: Speci men Type: URINE SPECIMENOrdering Facility: [facility] Address: [address] [place] [address] Performed By: #### 2 4356-8 ####[facility]CL[facility] [id number] [address], [place] [address] [place] Hyaline casts (Urine sed) [#/Area] 1-3 /LPF Abnormal 0 /LPF [facility] Comment on above: Order Comment: Speci men Type: URINE SPECIMENOrdering Facility: [facility] Address: [address] [place] [address] Performed By: #### 2 4356-8 ####[facility]CL[facility] [id number] [place] [address] [place] Ketones Ql (U) Negative Normal Negative [facility] Comment on above: Order Comment: Speci men Type: URINE SPECIMENOrdering Facility: [facility] Address: [address] [place] [address] Performed By: #### 2 4356-8 ####[facility] [id number] [address], [place] [address] [place] Leukocyte esterase Test strip Ql (U) 2+ Abnormal Negative [facility] Comment on above: Order Comment: Speci men Type: URINE SPECIMENOrdering Facility: [facility] Address: [address] [place] [address] Performed By: #### 2 4356-8 ####[facility] LABCL[facility] [id number] [place] [id number] [place] Nitrite Ql (U) Negative Normal Negative [facility] Comment on above: Order Comment: Speci men Type: URINE SPECIMENOrdering Facility: [facility] Address: [address] [place] [address] Performed By: #### 2 4356-8 ####[facility] [id number] [place] [address] [place] pH (U) 5.5 [pH] Normal 5.0-8.0 [facility] Comment on above: Order Comment: Speci men Type: URINE SPECIMENOrdering Facility: [facility] Address: [address] [place] [address] Performed By: #### 2 4356-8 ####[facility] [id number] [place] [address] [place] Protein (U) [Mass/Vol] 2+ Abnormal Negative [facility] Comment on above: Order Comment: Speci men Type: URINE SPECIMENOrdering Facility: [facility] Address: [address] [place] [address] Performed By: #### 2 4356-8 ####[facility] [id number] [place] [address] [place] RBC LM.HPF (Urine sed) [#/Area] 0-2 /HPF Normal 0-2 /HPF [facility] Comment on above: Order Comment: Speci men Type: URINE SPECIMENOrdering Facility: [facility] Address: [address] [place] [address] Performed By: #### 2 4356-8 ####[facility] [id number] [place] [address] [place] Specific gravity (U) [Rel density] 1.015 Normal 1.005-1.030 [facility] Comment on above: Order Comment: Speci men Type: URINE SPECIMENOrdering Facility: [facility] Address: [address] [place] [address] Performed By: #### 2 4356-8 ####[facility] [id number] [place] [address] [place] Urobilinogen Ql (U) 0.2 EU/dL Normal 0.2-1.0 EU/dL [facility] Comment on above: Order Comment: Speci men Type: URINE SPECIMENOrdering Facility: [facility] Address: [address] [place] [address] Performed By: #### 2 4356-8 ####[facility]CL[facility] [id number] [place] [address] [place] WBC LM.HPF (Urine sed) [#/Area] /[HPF] Abnormal 0-5 /HPF [facility] Comment on above: Order Comment: Speci men Type: URINE SPECIMENOrdering Facility: [facility] Address: [address] [place] [address] Performed By: #### 2 4356-8 ####[facility] [id number] [address] [place] CBC W Auto Differential pane l (Bld)on 10-26-2024 Basophils (Bld) [#/Vol] 0.10 10*3/uL [facility] Basophils/100 WBC (Bld) 0.8 % [facility] Differential cell count method Nom (Bld) Auto [facility] Eosinophils (Bld) [#/Vol] 0.11 10*3/uL [facility] Eosinophils/100 WBC (Bld) 0.9 % [facility] Erythrocyte distribution width (RBC) [Ratio] 15.5 % High 11.5 - 15.0 % [facility] Hematocrit (Bld) [Volume fraction] 26.7 % Low 36.0 - 46.0 % [facility] Hemoglobin (Bld) [Mass/Vol] 8.6 g/dL Low 11.5 - 15.5 g/dL [facility] Immature granulocytes (Bld) [#/Vol] 0.05 10*3/uL [facility] Immature granulocytes/100 WBC (Bld) 0.4 % [facility] Interpretation and review of laboratory results Abnormal [facility] Lymphocytes (Bld) [#/Vol] 2.39 10*3/uL [facility] Lymphocytes/100 WBC (Bld) 19.3 % [facility] MCH (RBC) [Entitic mass] 27.7 pg 26. 0 - 34.0 pg [facility] MCHC (RBC) [Mass/Vol] 32.2 g/dL 30.5 - 36.0 g/dL [facility] MCV (RBC) [Entitic vol] 85.9 fL 80.0 - 100.0 fL [facility] Monocytes (Bld) [#/Vol] 0.86 10*3/uL [facility] Monocytes/100 WBC (Bld) 6.9 % [facility] Neutrophils (Bld) [#/Vol] 8.89 10*3/uL High [facility] Neutrophils/100 WBC (Bld) 71.7 % [facility] Nucleated RBC (Bld) [#/Vol] NINF [facility] Nucleated RBC/100 WBC (Bld) [Ratio] 0.0 % /100 WBC [facility] Platelet mean volume (Bld) [Entitic vol] 11.3 fL 9.0 - 12.7 fL [facility] Platelets (Bld) [#/Vol] 399 10*3/uL [facility] RBC (Bld) [#/Vol] 3.11 10*6/uL Low 3.90 - 5.2 0 m/uL [facility] WBC (Bld) [#/Vol] 12.40 10*3/uL High [facility] Basophils (Bld) [#/Vol] 0.10 10*3/uL Normal <0.11 [facility] Comment on above: Order Comment: Speci men Type: BLOOD SPECIMENOrdering Facility: [facility] Address: [address] [place] [address] Performed By: #### 5 7021-8 ####[facility]CL[facility] [id number] [address] [facility] Basophils/100 WBC (Bld) 0.8 % Normal [facility] Comment on above: Order Comment: Speci men Type: BLOOD SPECIMENOrdering Facility: [facility] Address: [address] [place] [address] Performed By: #### 5 7021-8 ####[facility] [id number] [address] [place] Differential cell count method Nom (Bld) Auto Normal [facility] Comment on above: Order Comment: Speci men Type: BLOOD SPECIMENOrdering Facility: [facility] Address: [address] [place] [address] Performed By: #### 5 7021-8 ####[facility]CL[facility] [id number] [place] [address] [place] Eosinophils (Bld) [#/Vol] 0.11 10*3/uL Normal <0.46 [facility] Comment on above: Order Comment: Speci men Type: BLOOD SPECIMENOrdering Facility: [facility] Address: [address] [place] [address] Performed By: #### 5 7021-8 ####[facility] [id number] [place] [address] [place] Eosinophils/100 WBC (Bld) 0.9 % Normal [facility] Comment on above: Order Comment: Speci men Type: BLOOD SPECIMENOrdering Facility: [facility] Address: [address] [place] [address] Performed By: #### 5 7021-8 ####[facility] [id number] [place] [address] [place] Erythrocyte distribution width (RBC) [Ratio] 15.5 % High 11.5-15.0 [facility] Comment on above: Order Comment: Speci men Type: BLOOD SPECIMENOrdering Facility: [facility] Address: [address] [place] [address] Performed By: #### 5 7021-8 ####[facility] [id number] [place] [address] [place] Hematocrit (Bld) [Volume fraction] 26.7 % Low 36.0-46.0 [facility] Comment on above: Order Comment: Speci men Type: BLOOD SPECIMENOrdering Facility: [facility] Address: [address] [place] [address] Performed By: #### 5 7021-8 ####[facility]CL[facility] [id number] [place] [address] [place] Hemoglobin (Bld) [Mass/Vol] 8.6 g/dL Low 11.5-15.5 [facility] Comment on above: Order Comment: Speci men Type: BLOOD SPECIMENOrdering Facility: [facility] Address: [address] [place] [address] Performed By: #### 5 7021-8 ####[facility]CL[facility] [id number] [place] [address] [place] Immature granulocytes (Bld) [#/Vol] 0.05 10*3/uL Normal <0.10 [facility] Comment on above: Order Comment: Speci men Type: BLOOD SPECIMENOrdering Facility: [facility] Address: [address] [place] [address] Performed By: #### 5 7021-8 ####[facility] [id number] [place] [address] [place] Immature granulocytes/100 WBC (Bld) 0.4 % Normal [facility] Comment on above: Order Comment: Speci men Type: BLOOD SPECIMENOrdering Facility: [facility] Address: [address] [place] [address] Performed By: #### 5 7021-8 ####[facility] [id number] [place] [address] [place] Lymphocytes (Bld) [#/Vol] 2.39 10*3/uL Normal 1.00-4.00 [facility] Comment on above: Order Comment: Speci men Type: BLOOD SPECIMENOrdering Facility: [facility] Address: [address] [place] [address] Performed By: #### 5 7021-8 ####[facility] [id number] [address] [place] Lymphocytes/100 WBC (Bld) 19.3 % Normal [facility] Comment on above: Order Comment: Speci men Type: BLOOD SPECIMENOrdering Facility: [facility] Address: [address] [place] [address] Performed By: #### 5 7021-8 ####[facility]CL[facility] [id number] [place] [address] [place] MCH (RBC) [Entitic mass] 27.7 pg Normal 26.0-34.0 [facility] Comment on above: Order Comment: Speci men Type: BLOOD SPECIMENOrdering Facility: [facility] Address: [address] [place] [address] Performed By: #### 5 7021-8 ####[facility] [id number] [address] [place] MCHC (RBC) [Mass/Vol] 32.2 g/dL Normal 30.5-36.0 [facility] Comment on above: Order Comment: Speci men Type: BLOOD SPECIMENOrdering Facility: [facility] Address: [address] [place] [address] Performed By: #### 5 7021-8 ####[facility] [id number] [place] [address] [place] MCV (RBC) [Entitic vol] 85.9 fL Normal 80.0-100.0 [facility] Comment on above: Order Comment: Speci men Type: BLOOD SPECIMENOrdering Facility: [facility] Address: [address] [place] [address] Performed By: #### 5 7021-8 ####[facility] [id number] [place] [address] [place] Monocytes (Bld) [#/Vol] 0.86 10*3/uL Normal <0.87 [facility] Comment on above: Order Comment: Speci men Type: BLOOD SPECIMENOrdering Facility: [facility] Address: [address] [place] [address] Performed By: #### 5 7021-8 ####[facility] [id number] [place] [id number] [place] Monocytes/100 WBC (Bld) 6.9 % Normal [facility] Comment on above: Order Comment: Speci men Type: BLOOD SPECIMENOrdering Facility: [facility] Address: [address] [place] [address] Performed By: #### 5 7021-8 ####[facility] [id number] [place] [address] [place] Neutrophils (Bld) [#/Vol] 8.89 10*3/uL High 1.45-7.50 [facility] Comment on above: Order Comment: Speci men Type: BLOOD SPECIMENOrdering Facility: [facility] Address: [address] [place] [address] Performed By: #### 5 7021-8 ####[facility] LABCLIA [id number] [address] [place] Neutrophils/100 WBC (Bld) 71.7 % Normal [facility] Comment on above: Order Comment: Speci men Type: BLOOD SPECIMENOrdering Facility: [facility] Address: [address] [place] [address] Performed By: #### 5 7021-8 ####[facility] LABCLIA [id number] [place] [id number] [place] Nucleated RBC (Bld) [#/Vol] 10*3/uL Normal <0.01 [facility] Comment on above: Order Comment: Speci men Type: BLOOD SPECIMENOrdering Facility: [facility] Address: [address] [place] [address] Performed By: #### 5 7021-8 ####[facility] LABCLIA [id number] [place] [address] [place] Nucleated RBC/100 WBC (Bld) [Ratio] 0.0 /100 WBC Normal [facility] Comment on above: Order Comment: Speci men Type: BLOOD SPECIMENOrdering Facility: [facility] Address: [address] [place] [address] Performed By: #### 5 7021-8 ####[facility] LABIA [id number] [place] [address] [place] Platelet mean volume (Bld) [Entitic vol] 11.3 fL Normal 9.0-12.7 [facility] Comment on above: Order Comment: Speci men Type: BLOOD SPECIMENOrdering Facility: [facility] Address: [address] [place] [address] Performed By: #### 5 7021-8 ####[facility] LABCLIA [id number] [place] [address] [place] Platelets (Bld) [#/Vol] 399 10*3/uL Normal 150-400 [facility] Comment on above: Order Comment: Speci men Type: BLOOD SPECIMENOrdering Facility: [facility] Address: [address] [place] [address] Performed By: #### 5 7021-8 ####[facility] LABIA [id number] [place] [address] [place] RBC (Bld) [#/Vol] 3.11 10*6/uL Low 3.90-5.20 [facility] Comment on above: Order Comment: Speci men Type: BLOOD SPECIMENOrdering Facility: [facility] Address: [address] [place] [address] Performed By: #### 5 7021-8 ####[facility] LABCLIA [id number] [place] [address] [place] WBC (Bld) [#/Vol] 12.40 10*3/uL High 3.70-11.00 [facility] Comment on above: Order Comment: Speci men Type: BLOOD SPECIMENOrdering Facility: [facility] Address: [address] [place] [address] Performed By: #### 5 7021-8 ####[facility] LABCLIA [id number] SERJIO PANIAGUA [address] [facility] CNOVon 10-26-2024 CNOV Office Visit (FAMPWS) SANJUANITA JERRY ([id number]) 1965 F Date Time Provider Department 10/26/24 2:00 PM ERICA HERMAN During your visit today, we recorded the following information about you: Temperature Pulse Blood pressure Weight 97.9 degrees 99/minute 102/52 43.5 kg Height 1.524 m Erica Herman MD 10/26/2024 2:54 PM Signed Chief Complaint Patient presents with: Medical Clearance Recording using Booklr software for draft documentation of the visit was discussed with the patient/authorized practice representative; all questions welcomed and answered. Patient/authorized practice representative agreed to proceed HPI Sanjuanita Jerry is a 59 year old female who presents here today for Above Complaints.. Preoperative Evaluation: - Scheduled for partial metatarsal resection of the left foot on the of this month. - Referred to Dr. Otoole at the wound center by Dr. Long for a second opinion on a left foot ulcer. - Ulceration of the plantar aspect of the left metatarsal was increasing in size; Dr. Otoole determined it was not salvageable. - High arch and abnormal gait contributing to ulceration; surgery aims to alleviate pressure on the affected area. - No known complications with anesthesia in the past; has undergone cataract surgery and leg amputation. - No recent fevers, chest pain, palpitations, dyspnea, or edema. - No unusual weight gain or claudication. - Able to climb stairs without chest pain or dyspnea (5.5 METS). - No recent nausea, emesis, diarrhea, or other rashes. - Last stress test in August 2023 was normal. - Recent EKG performed today was normal. - Concerns about clearance due to previous delay in cataract surgery from high blood sugar levels. Diabetes Mellitus: - Managed by Millie Sharif and Dr. Wan Madrigal with upcoming OV on 11/04. - Last A1c on July 22 was 13.7. - Fingerstick blood glucose levels averaging 180 mg/dL with her Dexcom. - Current medications: Lantus 15 units every morning, Humalog 5 units TID before meals, and glipizide. - Following a low-carb diet. - Dexcom sensor malfunctioning; using fingerstick glucose monitoring before meals and at bedtime. Hypotension: BP low today. - No home blood pressure monitoring. - Denies nausea, vomiting, lightheadedness or dizziness. Peripheral Artery Disease: - History of PAD. - Smoking half a pack of cigarettes per day; not interested in smoking cessation assistance. Past medical history, appointments, medications, allergies reviewed. Previous Medical History Past Medical History: No date: Cataracts, bilateral Comment: s/p surgery in 2021 at [facility] 11/2022: Coronary artery calcification Comment: On CT chest No date: Diabetic neuropathy ([facility]) No date: Folic acid deficiency No date: Gas gangrene of lower extremity ([facility]) 09/29/2007: Goiter, unspecified No date: Hypokalemia No date: Hypomagnesemia No date: Known medical problems Comment: rt BKA No date: PAD (peripheral artery disease) 05/31/2022: S/P BKA (below knee amputation) ([facility]) Comment: right No date: Tobacco use disorder No date: Type II or unspecified type diabetes mellitus without mention of complication, uncontrolled Comment: Endo: Dr. Madrigal Previous Surgical History PAST SURGICAL HISTORY Procedure Laterality Date APPENDECTOMY HX 80s CATARACT EXTRACTION HX Bilateral 04/2022 EGD W/O BRSH SPEC VARICIES INJ 2019 with esophageal dilation LEG AMPUTATION HX Right 06/03/2022 BKA PAST SURGICAL HISTORY OF Lt thumb straightened Family History FAMILY HISTORY[1] Patient Allergies ALLERGIES[2] Current Medications Meds Previous to this Encounter[3] Social History SOCIAL HISTORY[4] Review of Symptoms REVIEW OF SYSTEMS GENERAL: No weight loss, malaise or fevers RESPIRATORY: Negative for cough, hemoptysis, wheezing, COPD, dyspnea or shortness of breath CARDIOVASCULAR: Negative for chest pain, leg swelling, hypertension, CHF or palpitations GI: No nausea, vomiting, or diarrhea SKIN: See HPI EXAM: BP 102/52 Pulse 99 Temp 36.6 ?C (97.9 ?F) Ht 152.4 cm (5') Wt 43.5 kg (96 lb) LMP 09/16/2007 SpO2 100% BMI 18.75 kg/m? General Appearance: Well appearing, alert, in no acute distress, well-hydrated, well nourished.. Skin: Skin color, texture, turgor normal, no suspicious rashes or lesions. Lungs: Lungs clear to auscultation. No wheezing, rhonchi, rales.. Heart: RRR without murmur, gallop, or rubs. No ectopy. Abdomen: Normal abdominal exam, Abdomen soft, non-tender. Bowel sounds normal. No masses, organomegaly. Extremities: Right LE prosthesis. No edema or discoloration of left LE. Health Maintenance List Urine Albumin:Creatinine Ratio due on 12/04/2009 Dilated Retinal Exam due on 04/02/2010 HbA1C due on 08/31/2022 Lung Cancer Screening due on 12/07/2023 Medicare Denise (more content not included)... Normal [facility] Comprehensive metabolic 2000 panelon 10-26-2024 Albumin [Mass/Vol] 3.7 g/dL Low 3.9-4.9 [facility] Comment on above: Order Comment: Speci men Type: BLOOD SPECIMENOrdering Facility: [facility] Address: [address] [place] [address] Performed By: #### 2 4323-8 ####[facility] LABCLIA [id number] [place] [address] [place] ALP [Catalytic activity/Vol] 88 U/L Normal 34-123 [facility] Comment on above: Order Comment: Speci men Type: BLOOD SPECIMENOrdering Facility: [facility] Address: [address] [place] [address] Performed By: #### 2 4323-8 ####[facility] LABCLIA [id number] [facility] [place] [id number] [address] [place] ALT [Catalytic activity/Vol] 13 U/L Normal 7-38 [facility] Comment on above: Order Comment: Speci men Type: BLOOD SPECIMENOrdering Facility: [facility] Address: [address] [place], [place] [address] Performed By: #### 2 4323-8 ####[facility] LABCLIA [id number] [facility] [address] [place] [address] [place] Anion gap [Moles/Vol] 15 mmol/L Normal 8-15 [facility] Comment on above: Order Comment: Speci men Type: BLOOD SPECIMENOrdering Facility: [facility] Address: [address] [place] [address] Performed By: #### 2 4323-8 ####[facility] LABCLIA [id number] [facility] [address], [facility]95 [place] AST [Catalytic activity/Vol] 12 U/L Low 13-35 [facility] Comment on above: Order Comment: Speci men Type: BLOOD SPECIMENOrdering Facility: [facility] Address: [address] [place], [place] [address] Performed By: #### 2 4323-8 ####[facility] LABCLIA [id number] [facility] [place] [id number] [place] Bilirubin [Mass/Vol] mg/dL Low 0.2-1.3 [facility] Comment on above: Order Comment: Speci men Type: BLOOD SPECIMENOrdering Facility: [facility] Address: [address] [place], [place] [address] Performed By: #### 2 4323-8 ####[facility] LABCLIA [id number] [facility] [address] [place] [address] [place] Calcium [Mass/Vol] 9.8 mg/dL Normal 8.5-10.2 [facility] Comment on above: Order Comment: Speci men Type: BLOOD SPECIMENOrdering Facility: [facility] Address: [address] [place], [place] [address] Performed By: #### 2 4323-8 ####[facility] LABCLIA [id number] [place] [id number] [place] Chloride [Moles/Vol] 103 mmol/L Normal 98-107 [facility] Comment on above: Order Comment: Speci men Type: BLOOD SPECIMENOrdering Facility: [facility] Address: [address] [place] [address] Performed By: #### 2 4323-8 ####[facility] LABCLIA [id number] [place] [address] [place] CO2 [Moles/Vol] 19 mmol/L Low 22-30 [facility] Comment on above: Order Comment: Speci men Type: BLOOD SPECIMENOrdering Facility: [facility] Address: [address] [place] [address] Performed By: #### 2 4323-8 ####[facility] LABCLIA [id number] [place] [address] [place] Creatinine [Mass/Vol] 1.25 mg/dL High 0.58-0.96 [facility] Comment on above: Order Comment: Speci men Type: BLOOD SPECIMENOrdering Facility: [facility] Address: [address] [place] [address] Performed By: #### 2 4323-8 ####[facility] LABCLIA [id number] [place] [id number] [place] eGFRcr SerPlBld CKD-EPI 2020 50 mL/min/1.73m??? Low >=60 [facility] Comment on above: Order Comment: Speci men Type: BLOOD SPECIMENOrdering Facility: [facility] Address: [address] [place] [address] Result Comment: Judy mated Glomerular Filtration Rate (eGFR) is calculated using the 2021 CKD-EPI creatinine equation. This equation utilizes serum creatinine, sex, and age as parameters. The creatinine assay has traceable calibration to isotope dilution-mass spectrometry. Refer to KDIGO guidelines for clinical interpretation. In patients with unstable renal function, e.g. those with acute kidney injury, the eGFR may not accurately reflect actual GFR. Performed By: #### 2 4323-8 ####[facility] LABIA [id number] [address] [address] [place] Glucose [Mass/Vol] 175 mg/dL High 74-99 [facility] Comment on above: Order Comment: Gil sexton Type: BLOOD SPECIMENOrdering Facility: [facility] Address: [address] [place] [address] Result Comment: The [place] Diabetes Association (ADA) provides guidance for cutoff values for fasting glucose and random glucose. The ADA defines fasting as no caloric intake for at least 8 hours. Fasting plasma glucose results between 100 to 125 mg/dL indicate increased risk for diabetes (prediabetes). Fasting plasma glucose results greater than or equal to 126 mg/dL meet the criteria for diagnosis of diabetes. In the absence of unequivocal hyperglycemia, results should be confirmed by repeat testing. In a patient with classic symptoms of hyperglycemia or hyperglycemic crisis, random plasma glucose results greater than or equal to 200 mg/dL meet the criteria for diagnosis of diabetes. Reference: Standards of Medical Care in Diabetes 2016, [place] Diabetes Association. Diabetes Care. 2016.39(Suppl 1). Performed By: #### 2 4323-8 ####[facility] LABIA [id number] [address] [address] [place] Potassium [Moles/Vol] 4.2 mmol/L Normal 3.7-5.1 [facility] Comment on above: Order Comment: Gil sexton Type: BLOOD SPECIMENOrdering Facility: [facility] Address: [address] [place] [address] Performed By: #### 2 4323-8 ####[facility] LABCLIA [id number] [facility] [address] [address] [place] Protein [Mass/Vol] 7.3 g/dL Normal 6.3-8.0 [facility] Comment on above: Order Comment: Speci men Type: BLOOD SPECIMENOrdering Facility: [facility] Address: [address] [place] [address] Performed By: #### 2 4323-8 ####[facility] LABCLIA [id number] [place] [id number] [place] Sodium [Moles/Vol] 137 mmol/L Normal 136-144 [facility] Comment on above: Order Comment: Speci men Type: BLOOD SPECIMENOrdering Facility: [facility] Address: [address] [place] [address] Performed By: #### 2 4323-8 ####[facility] LABCLIA [id number] [place] [address] [place] Urea nitrogen [Mass/Vol] 33 mg/dL High 7-21 [facility] Comment on above: Order Comment: Speci men Type: BLOOD SPECIMENOrdering Facility: [facility] Address: [address] [place] [address] Performed By: #### 2 4323-8 ####[facility] LABCLIA [id number] [place] [address] [place] ECG COMPLETEon 10-26-2024 ECG COMPLETE Ventricular Rate : 92 BPM Atrial Rate : 92 BPM P-R Interval : 144 ms QRS Duration : 76 ms Q-T Interval : 368 ms QTC Calculation(Bazett) : 455 ms Calculated P Minerva : 67 degrees Calculated R Min[place]a : 42 degrees Calculated T Minerva : 66 degrees NORMAL SINUS RHYTHM NORMAL ECG Confirmed by MD LÓPEZ QARAB ([id number]) on 10/27/2024 9:48:31 AM NAME : SANJUANITA JERRY PID : [id number] : 1965 Gender : Female Race : ORD : [id number] Procedure Date : Oct 26 2024 14:11:14 Edit Date : Oct 27 2024 09:48:33 Diagnosis: NORMAL SINUS RHYTHM NORMAL ECG Confirmed by MD LÓPEZ QARAB ([id number]) on 10/27/2024 9:48:31 AM Test Reason : Z01.818 Pre-op evaluation Location : 136 : [facility] Overread By : MD LÓPEZ QARAB Edited By : MD LÓPEZ QARAB Referred By : SELF, Acquired by : Heather Dixon [facility] HbA1c (Bld)on 10-26-2024 Average glucose Estimated from glycated hemoglobin (Bld) [Mass/Vol] 189 mg/dL Normal [facility] Comment on above: Order Comment: Speci men Type: BLOOD SPECIMENOrdering Facility: [facility] Address: [address] [place] [address] Result Comment: eAG: (Estimated average glucose) is a calculated value from HgbA1c and is practice representative of the average blood glucose level in the last 2-3 month period. Performed By: #### 5 5454-3 ####[facility] LABCLIA [id number] [place] [address] [place] HbA1c (Bld) [Mass fraction] 8.2 % High 4.3-5.6 [facility] Comment on above: Order Comment: Speci darshan Type: BLOOD SPECIMENOrdering Facility: [facility] Address: [address] [place] [address] Result Comment: [place] Diabetes Association guidelines indicate that patients with HgbA1c in the range 5.7-6.4% are at increased risk for development of diabetes, and intervention by lifestyle modification may be beneficial. HgbA1c greater or equal to 6.5% is considered diagnostic of diabetes. Performed By: #### 5 5454-3 ####[facility] LABCLIA [id number] [place] [id number] [place] Wound Cultureon 10-11-2024 WC L LATERAL FOOT ULCER Copy of report sent to Infection Control Printer [id number] 10/11/24 0702 ASNIPES. Wound Culture Wound Culture Meth. resistant Staph. aureus Amount Growth 3+ mecA Testing not performed STAGA Amount Growth 3+ Streptococcus agalactiae (B) cefOXitin Susc Islt Doxycycline Islt MARINA <=0.5 S Clindamycin Islt MARINA Clindamycin.induced Susc Islt POS Erythromycin Islt MARINA R Gentamicin Islt MARINA <=0.5 S Linezolid Islt MARINA 2 S Moxifloxacin Islt MARINA >=8 R Oxacillin Susc Islt >=4 R Tetracycline Islt MARINA <=1 S TMP SMX Islt MARINA <=10 S Vancomycin Islt MARINA 1 S Streptococcus agalactiae (B): REACTION Ampicillin Islt MARINA <=0.25 S cefTRIAXone Islt MARINA <=0.12 S Clindamycin Islt MARINA <=0.25 Clindamycin.induced Susc Islt NEG Linezolid Islt MARINA <=2 S Vancomycin Islt MARINA 0.5 S Normal [facility] Comment on above: Performed By: #### M 100.1999, M100.3000 ####[facility] [id number] [place], [address] Gram Stainon 10-08-2024 GS L LATERAL FOOT ULCER Gram Stain 4+ Gram positive cocci No Epithelial cells Normal [facility] Comment on above: Performed By: #### M 100.1999, M100.3000 ####[facility] [id number] [place], [address] Gram stainOrdered By: Cher Otoole on 10-08-2024 Microscopic observation Gram stain Nom (Unsp spec) [facility] Routine wound cultureOrdered By: Andriy Otoole on 10-08-2024 Microbial culture, routine Meth. resistant Staph. aureus Abnormal [facility] Microbial culture, routine Streptococcus agalactiae (B) Abnormal [facility] History AND Physic gina 10-07-2024 Wound Ctr History & Physical [facility] [address] [place] [address] H P Exam - Wound Care 10/07/24 1642 MR#: [id number] Acct: [id number] Name: SANJUANITA JERRY Rep #: [id number] : 1965 59 From: Andriy Otoole DPM PCP: Dr. Art Herman MD Status:REG RCR Location: History of Present Illness Date of Service: 10/07/24 Chief Complaint: R BKA stump wound History of Wound: Sanjuanita Jerry is a 57 y/o female who presents to the wound healing center today for management of a right BKA stump wound. She is accompanied to the appointment today by her daughter who helps to supplement her history and also helps with her wound care. 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 At that time, they explored and washed out proximally in her thigh as well. Subsequently she initially had wound vac placed prior to secondary closure. She reports that the amputation site did ultimately heal fully and she was able to obtain a prosthetic. She had been doing very well with her prosthetic and getting back to work etc. Unfortunately about 1-2 months ago she developed a wound on her amputation stump due to the prosthetic rubbing in this area. She presented to the [facility] ER on 02/26/23 with concern of infection. She was admitted from 02/26-03/01 for IV antibiotics. Wound cultures were positive for staph aureus, blood cultures were negative. She was evaluated by orthopedics at that time as well. XR and CT scan performed during that admission were negative for signs of osteomyelitis. She was discharged with a course of Bactrim and referral here. At home, they have been doing daily dressing changes with iodoform and dry gauze dressing. Her daughter reports it has made significant improvement since her hospital stay. Progress of Wound: Patient is a 59-year-old diabetic female presenting to wound care center today for follow-up evaluation of left foot plantar full-thickness wound. Patient is well-known to [facility] podiatry and referred to the wound care center for expert care and treatment. Patient has been dealing with full-thickness wound for a couple of weeks now with treatment consisting of outpatient debridement by [facility] podiatry, hydrogel and offloading pad. Patient is diabetic with an A1c of 8.3%. She denies any pain to the left lower extremity. 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 Denies any drainage or malodor. Denies trauma. Denies constitutional symptoms. No other pedal complaints at this time. 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 Below knee amputation Dysphagia Acid reflux Diabetes Home Medications ???Medication ???Instructions ???Recorded ???Last Taken ???Type albuterol sulfate 90 mcg/actuation 2 puff inhalation Q4H PRN Sob / Or 10/01/18 Unknown History aerosol inhaler Wheezing atorvastatin 40 mg tablet 40 mg PO QHS cholesterol 02/26/23 02/25/23 History cholecalciferol (vitamin D3) 25 25 mcg PO DAILY supplement 3 02/25/23 History mcg (1,000 unit) tablet ferrous sulfate 325 mg (65 mg 325 mg PO DAILY supplement 3 02/25/23 History iron) tablet (FeroSul) blood-glucose meter (True Metrix #1 ea 08/19/23 Unknown Rx Glucose Meter) True Metrix Glucose Test Strip #50 ea 06/30/24 Unknown Rx (blood sugar diagnostic) insulin glargine 100 unit/mL (3 20 unit (0.2 mL) subcut DAILY #15 07/25/24 Unknown Rx mL) subcutaneous pen (Lantus mL Solostar U-100 Insulin) insulin lispro 100 unit/mL 5 unit (0.05 mL) subcut TIDAC #15 07/25/24 Unknown Rx subcutaneous pen (Humalog KwikPen mL (U-100) Insulin) lisinopril 10 mg tablet 10 mg PO DAILY #30 tabs 07/25/24 U nknown Rx loperamide 2 mg capsule 2 mg PO Q8 #0 caps 07/25/24 Unknow n Rx blood-glucose sensor (Dexcom G7 #3 ea 08/06/24 Unknown Rx Sensor device) pen needle, diabetic 31 gauge x #100 ea 08/28/24 Unknown Rx 1/4" (1st Tier Unifine Pentips) folic acid 1 mg tablet 1 mg PO DAILY 10/07/24 Unknown His tory Allergy/AdvReac Type Severity Reaction Status Date / Time No Known Allergies Allergy Verified 08/26/24 10:57 Family History Grandmother Breast cancer Father Heart disease Hypertension Sister Thyroid disorder Aunt Thyroid disorder Other Arthritis CVA (cerebral vascular accident) Kidney disease Myocardial infarction Surgical History History of appendectomy Status post below knee amputation of right lower extremity history E (more content not included)... Normal [facility] XR FOOT 3V AP/LAT/OBL LTon 0 10-05-2024 XR FOOT 3V AP/LAT/OBL LT * * *Final Repo rt* * * DATE OF EXAM: Oct 05 2024 10:13AM [id number] - XR FOOT 3V AP/LAT/OBL LT / PROCEDURE REASON: Ulcer of toe of left foot, with fat layer exposed (HCC) * * * * Physician Interpretation * * * * PROCEDURE: Left foot INDICATION: Ulcer of toe of left foot, with fat layer exposed (HCC) .PT STATES ULCER LEFT FOOT FOLLOW UP TECHNIQUE: XR FOOT 3V AP/LAT/OBL LT COMPARISON: 09/01/2024 FINDINGS: Soft tissue swelling lateral to the 5th metatarsal head. No bony erosion or periostitis. No fracture or dislocation. Tiny Achilles enthesophyte. IMPRESSION: No radiographic evidence for osteomyelitis Health Care Social Worker: PSCB Transcribe Date/Time: Oct 10 2024 3:26P Dictated by : AD BLANCA MD This examination was interpreted and the report reviewed and electronically signed by: AD BLANCA MD on Oct 10 2024 3:27PM EST [id number] Normal [facility] CNOVon 10-01-2024 CNOV Office Visit (PODIWS) SANJUANITA JERRY ([id number]) 1965 F Date Time Provider Department 10/01/24 1:30 PM KEDAR LONG P[place] During your visit today, we recorded the following information about you: Giovanny Morelos, RN 10/01/2024 10:52 PM Signed Patient presents with: Left Foot - Established Patient, Follow Up, Diabetic Foot Ulcer Kedar Long 10/01/2024 2:07 PM Signed - Clean your left foot ulcer once daily with mild soap and water, pat it dry, then apply hydrogel and cover it with your surgical shoe whenever your foot touches the floor. - Continue wearing the surgical shoe at all times when standing or walking to offload pressure from the wound. - Schedule and attend a consultation at the wound center for a second opinion; they may have additional treatments or skin-substitute products we don?t have in the office. - Obtain an x-ray of your left foot as soon as possible (tomorrow or at your earliest convenience) to check for any bone involvement. - Return to this clinic for follow-up in as scheduled to reassess wound healing; if the wound center recommends continuing current care, we will proceed with hydrogel and shoe offloading at those visits. Emelyn Cee LPN 10/01/2024 10:52 PM Signed Per Sanjuanita Mancera wound was dressed with antibiotic ointment, non adherent Telfa and 4 in roll gauze. instructed/educated in its application, wear, and care. All questions were answered, and patient was able to demonstrate competence with the necessary skills to utilize the above equipment. FARIDA Villeda Matthew 10/01/2024 10:52 PM Signed Subjective Sanjuanita Chanel Jerry is a 59-year-old female with a history of diabetes mellitus, presenting for follow-up of a left foot ulceration. Left Foot Ulceration: - Ulceration on the plantar aspect of the left metatarsal first noted on 08/20 after scraping down a callus. - Initially treated with Santyl, but switched to Hydrogel due to insurance coverage issues. - Ulcer measured 9 mm x 9 mm at last visit; currently measures 1.1 cm x 1.2 cm. - Denies trauma or injury to the area. - Wearing a surgical shoe consistently when ambulating. - Expresses frustration with the healing process. Diabetes Mellitus: - Last HbA1c was 8.3% in July; previously 13%. - Using Dexcom for glucose monitoring. - Reports good glycemic control. - History of right below knee amputation performed by Dr. Riggs. Skin: (+) left foot ulcer Psychiatric: (+) anxiety PAST MEDICAL HISTORY Diagnosis Date Cataracts, bilateral s/p surgery in 2021 at [facility] Coronary artery calcification 11/[address] chest Diabetic neuropathy ([facility]) Folic acid deficiency Gas gangrene of lower extremity ([facility]) Goiter, unspecified 09/29/2007 Hypokalemia Hypomagnesemia Known medical problems rt BKA PAD (peripheral artery disease) S/P BKA (below knee amputation) ([facility]) 05/31/2022 right Tobacco use disorder Type II or unspecified type diabetes mellitus without mention of complication, uncontrolled Endo: Dr. Madrigal Current Outpatient Medications Medication Sig Dispense Refill gel dressing (CARRASYN HYDROGEL WOUND DRESS) topical Apply to affected area once daily. 28 g 1 Cholecalciferol, Vitamin D3, (VITAMIN D) 25 mcg (1,000 unit) cap Take 2 capsules by mouth once daily. Taking 2,000 units daily 180 capsule 1 LANTUS SOLOSTAR U-100 INSULIN 100 unit/mL (3 mL) Inject 15 Units subcutaneously every morning. insulin lispro (HUMALOG KWIKPEN) 100 unit/mL Inject 5 Units subcutaneously three times a day before meals. atorvastatin (LIPITOR) 40 mg tablet Take 1 tablet by mouth daily at bedtime. For cholesterol. 90 tablet 3 lisinopril (ZESTRIL) 5 mg tablet Take 1 tablet by mouth once daily. 90 tablet 3 ferrous sulfate 325 mg (65 mg iron) tablet Take 1 tablet by mouth once daily. 90 tablet 1 calcium carbonate (CALTRATE) 600 mg calcium (1,500 mg) tab Take 1,200 mg by mouth once daily. aspirin, enteric coated (ASPIRIN, ENTERIC COATED) 81 mg EC tablet Take 81 mg by mouth once daily. albuterol HFA (PROVENTIL HFA, VENTOLIN HFA) 90 mcg/actuation inhaler Inhale 2 Puffs as instructed every 4 hours as needed for wheezing/shortness of breath. 1 Each 3 Freightos G7 SENSOR taryn as directed. collagenase (SANTYL) ointment Apply to affected area once daily. APPLY TO AFFECTED AREA 30 g 1 Magnesium Chloride (SLOW-MAG) 71.5 mg TbEC Take 2 tablets by mouth once daily. (Patient not taking: Reported on 08/20/2024) 60 tablet 0 glipiZIDE (GLUCOTROL) 5 mg tablet Take 5 mg by mouth two times a day before meals. (Patient not taking: Reported on 08/20/2024) blood sugar diagnostic(TRUETRACK TEST STRIPS) Test blood sugars twice daily. 100 11 blood-glucose meter(TRUETRACK BLOOD GLUCOSE SYSTEM KIT) Test glucose as directed 1 0 blood-glucose control, low(TRUETRACK GLUCOSE SOLN) Test controls as (more content not included)... Normal [facility] CNOVon 09-17-2024 CNOV Office Visit (PODIWS) SANJUANITA JERRY ([id number]) 1965 F Date Time Provider Department 09/17/24 10:15 AM KEDAR LONG PODIWS During your visit today, we recorded the following information about you: Emelyn Cee LPN 09/19/2024 2:44 PM Signed AMB ROOMING INTAKE FLOWSHEET DATA Patient presents with: Left Foot - Established Patient, Follow Up, Diabetic Foot Ulcer FARIDA Villeda Matthew 09/17/2024 11:14 AM Signed - A 28 g tube of hydrogel (with one refill) has been prescribed and submitted to the [facility] pharmacy program for pickup. - Each day, clean the ulcer with saline, gently pat it dry, then apply a thin layer of hydrogel followed by a small amount of Mai. Cover with a clean gauze dressing. - Continue wearing your surgical shoe whenever your foot touches the floor; do not go barefoot. - Keep weight off the left foot as much as possible to aid healing. - Avoid smoking, as it can slow wound healing. - Your next wound check is scheduled for the (appointment already set). If the ulcer is not improving by that visit, you may be referred to the [facility] wound center for additional treatments. Emelyn Cee LPN 09/19/2024 2:44 PM Signed Per Sanjuanita Mancera wound was dressed with antibiotic ointment, mai, non adherent, 4 in roll gauze. instructed/educated in its application, wear, and care. All questions were answered, and patient was able to demonstrate competence with the necessary skills to utilize the above equipment. Emelyn Cee LPN Kedar Long 09/19/2024 2:44 PM Signed Subjective Sanjuanita Jerry is a 59-year-old female with a history of diabetes mellitus, presenting for follow-up of a left foot ulcer. Left Foot Ulcer: - Ulceration on the plantar aspect of Sanjuanita's left fifth metatarsal. - Initially measured 1.5 cm x 1.3 cm, decreased to 0.6 cm x 1.1 cm on 09/01. - Currently using Neosporin; unable to afford Santyl. - Wears a surgical shoe consistently; denies going barefoot. - Denies preference for wound center visits due to time constraints. Diabetes Mellitus: - Last HbA1c was 8.3% in August. PAST MEDICAL HISTORY Diagnosis Date Cataracts, bilateral s/p surgery in 2021 at [facility] Coronary artery calcification 11/[address] chest Diabetic neuropathy ([facility]) Folic acid deficiency Gas gangrene of lower extremity ([facility]) Goiter, unspecified 09/29/2007 Hypokalemia Hypomagnesemia Known medical problems rt BKA PAD (peripheral artery disease) S/P BKA (below knee amputation) ([facility]) 05/31/2022 right Tobacco use disorder Type II or unspecified type diabetes mellitus without mention of complication, uncontrolled Endo: Dr. Madrigal Current Outpatient Medications Medication Sig Dispense Refill gel dressing (CARRASYN HYDROGEL WOUND DRESS) topical Apply to affected area once daily. 28 g 1 Cholecalciferol, Vitamin D3, (VITAMIN D) 25 mcg (1,000 unit) cap Take 2 capsules by mouth once daily. Taking 2,000 units daily 180 capsule 1 DEXCOM G7 SENSOR taryn as directed. LANTUS SOLOSTAR U-100 INSULIN 100 unit/mL (3 mL) Inject 15 Units subcutaneously every morning. insulin lispro (HUMALOG KWIKPEN) 100 unit/mL Inject 5 Units subcutaneously three times a day before meals. collagenase (SANTYL) ointment Apply to affected area once daily. APPLY TO AFFECTED AREA 30 g 1 atorvastatin (LIPITOR) 40 mg tablet Take 1 tablet by mouth daily at bedtime. For cholesterol. 90 tablet 3 lisinopril (ZESTRIL) 5 mg tablet Take 1 tablet by mouth once daily. 90 tablet 3 Magnesium Chloride (SLOW-MAG) 71.5 mg TbEC Take 2 tablets by mouth once daily. (Patient not taking: Reported on 08/20/2024) 60 tablet 0 ferrous sulfate 325 mg (65 mg iron) tablet Take 1 tablet by mouth once daily. 90 tablet 1 calcium carbonate (CALTRATE) 600 mg calcium (1,500 mg) tab Take 1,200 mg by mouth once daily. aspirin, enteric coated (ASPIRIN, ENTERIC COATED) 81 mg EC tablet Take 81 mg by mouth once daily. albuterol HFA (PROVENTIL HFA, VENTOLIN HFA) 90 mcg/actuation inhaler Inhale 2 Puffs as instructed every 4 hours as needed for wheezing/shortness of breath. 1 Each 3 glipiZIDE (GLUCOTROL) 5 mg tablet Take 5 mg by mouth two times a day before meals. (Patient not taking: Reported on 08/20/2024) blood sugar diagnostic(TRUETRACK TEST STRIPS) Test blood sugars twice daily. 100 11 blood-glucose meter(TRUETRACK BLOOD GLUCOSE SYSTEM KIT) Test glucose as directed 1 0 blood-glucose control, low(TRUETRACK GLUCOSE SOLN) Test controls as needed 1 3 LANCETS Test blood sugars once daily, 250.00, non insulin dep 100 11 No current facility-administere d medications for this visit. Family History Problem Relation Age of Onset Stroke Mother Ischemic Heart Disease Mother Diabetes Mother Hypertension Mother Stroke Father Ischemic Heart Disease Father Hypertension Father Diabetes (more content not included)... Normal [facility] CNOVon 09-01-2024 CNOV Office Visit (PODIWS) SANJUANITA JERRY ([id number]) 1965 F Date Time Provider Department 09/01/24 2:15 PM KEDAR LONG During your visit today, we recorded the following information about you: Miriam Del Angel, RN 09/01/2024 3:38 PM Signed Patient presents with: Left Foot - Established Patient, Follow Up, Diabetic Foot Ulcer Patient presents for follow up left foot diabetic ulcer. Was provided a surgical shoe with offloading insert at last visit. Ulcer to 5th metatarsal scabbed over at this time. DEXTER 08/20/24 Kedar Long 09/01/2024 2:20 PM Signed - Your ulcer was cleaned and debrided today (removed hard skin and scab) and silver nitrate was applied to help stop bleeding. - Continue wearing the surgical (off-loading) shoe every time your left foot touches the ground to keep pressure off the wound. - Clean the ulcer daily with mild soap and water, gently pat it dry, apply Neosporin triple-antibiotic ointment, and cover with fresh gauze. - Keep using the oreilly?s-wool padding between your fourth and fifth toes to prevent rubbing. - Maintain your blood sugar control as directed by your diabetes provider, since high sugars can slow healing. - Aim for a balanced wound environment--avoid letting it become too wet or too dry; if drainage increases significantly or the wound seems overly dry, contact the office. - Obtain the left foot x-ray ordered today as a precaution against bone infection. - Return in two weeks for reassessment of ulcer size and healing progress. Miriam Del Angel RN 09/01/2024 3:38 PM Signed Wound dressed with antibiotic ointment, Aquacel, and gauze wrap. Kedar Long 09/01/2024 3:38 PM Signed Subjective Sanjuanita Buchanan Claritza is a 59-year-old female with a history of diabetes mellitus, presenting for follow-up of a left foot ulceration. Left Foot Ulceration: - Ulceration on the plantar aspect of the left foot, initially measuring 1.4 x 1.5 cm. - Currently applying Neosporin; unable to use Santyl due to insurance coverage issues. - Wears a surgical shoe but not consistently at home. - Denies using any other topical treatments. - Good blood flow to the foot; recent circulation studies showed dorsalis pedis at 1.10, posterior tibial at 1.11, and toe pressures at 0.71. Diabetes Mellitus: - A1c is 8.3. - Managed by an external provider. - Smokes less than half a pack of cigarettes per day. PAST MEDICAL HISTORY Diagnosis Date Cataracts, bilateral s/p surgery in 2021 at [facility] Coronary artery calcification 11/[address] chest Diabetic neuropathy (HCC) Folic acid deficiency Gas gangrene of lower extremity ([facility]) Goiter, unspecified 09/29/2007 Hypokalemia Hypomagnesemia Known medical problems rt BKA PAD (peripheral artery disease) S/P BKA (below knee amputation) ([facility]) 05/31/2022 right Tobacco use disorder Type II or unspecified type diabetes mellitus without mention of complication, uncontrolled Endo: Dr. Madrigal Current Outpatient Medications Medication Sig Dispense Refill Cholecalciferol, Vitamin D3, (VITAMIN D) 25 mcg (1,000 unit) cap Take 2 capsules by mouth once daily. Taking 2,000 units daily 180 capsule 1 DEXCOM G7 SENSOR taryn as directed. LANTUS SOLOSTAR U-100 INSULIN 100 unit/mL (3 mL) Inject 15 Units subcutaneously every morning. insulin lispro (HUMALOG KWIKPEN) 100 unit/mL Inject 5 Units subcutaneously three times a day before meals. collagenase (SANTYL) ointment Apply to affected area once daily. APPLY TO AFFECTED AREA 30 g 1 atorvastatin (LIPITOR) 40 mg tablet Take 1 tablet by mouth daily at bedtime. For cholesterol. 90 tablet 3 lisinopril (ZESTRIL) 5 mg tablet Take 1 tablet by mouth once daily. 90 tablet 3 ferrous sulfate 325 mg (65 mg iron) tablet Take 1 tablet by mouth once daily. 90 tablet 1 calcium carbonate (CALTRATE) 600 mg calcium (1,500 mg) tab Take 1,200 mg by mouth once daily. aspirin, enteric coated (ASPIRIN, ENTERIC COATED) 81 mg EC tablet Take 81 mg by mouth once daily. albuterol HFA (PROVENTIL HFA, VENTOLIN HFA) 90 mcg/actuation inhaler Inhale 2 Puffs as instructed every 4 hours as needed for wheezing/shortness of breath. 1 Each 3 blood sugar diagnostic(TRUETRACK TEST STRIPS) Test blood sugars twice daily. 100 11 blood-glucose meter(TRUETRACK BLOOD GLUCOSE SYSTEM KIT) Test glucose as directed 1 0 blood-glucose control, low(TRUETRACK GLUCOSE SOLN) Test controls as needed 1 3 LANCETS Test blood sugars once daily, 250.00, non insulin dep 100 11 Magnesium Chloride (SLOW-MAG) 71.5 mg TbEC Take 2 tablets by mouth once daily. (Patient not taking: Reported on 08/20/2024) 60 tablet 0 glipiZIDE (GLUCOTROL) 5 mg tablet Take 5 mg by mouth two times a day before meals. (Patient not taking: Reported on 08/20/2024) No current facility-administere d medications for this visit. Family History Proble (more content not included)... Normal [facility] XR FOOT 3V AP/LAT/OBL LTon 0 09-01-2024 XR FOOT 3V AP/LAT/OBL LT * * *Final Repo rt* * * DATE OF EXAM: Sep 01 2024 2:50PM [id number] [id number] - XR FOOT 3V AP/LAT/OBL LT / PROCEDURE REASON: Ulcer of toe of left foot, with fat layer exposed (HCC) * * * * Physician Interpretation * * * * HISTORY: 59-YEAR-OLD FEMALE WITH Ulcer of toe of left foot, with fat layer exposed (HCC) . ulcer on 5th MT head for 3-4 weeks no inj TECHNIQUE: XR FOOT 3V AP/LAT/OBL LT Laterality: LEFT Number of different views (projections): 3 COMPARISON: 04/02/2024 RESULT: Left foot: Soft tissue swelling lateral to the fifth MTP joint. There is linear of increased density presumably medication. The fifth MTP joint and PIP joint maintained. No periosteal reaction. No focal lytic lesion. Foot is otherwise unchanged. IMPRESSION: NO RADIOGRAPHIC EVIDENCE OF OSTEOMYELITIS. Health Care Social Worker: PSCB Transcribe Date/Time: Sep 07 2024 5:03P Dictated by : IGOR LOBO MD This examination was interpreted and the report reviewed and electronically signed by: IGOR LOBO MD on Sep 07 2024 5:06PM EST [id number] Normal [facility] Anion gap in Serum or Plasma Ordered By: Millie Sharif on 08-26-2024 Anion gap [Moles/Vol] 12 mmol/L - [facility] BUN/creatinine ratioOrdered By: Millie Sharif on 08-26-2024 Urea nitrogen/Creatinine [Mass ratio] 68.8 mg/mg High - [facility] Bilirubin, totalOrdered By: Millie Sharif on 08-26-2024 Bilirubin [Mass/Vol] mg/dL 0.00-1.30 [facility] Calculated very low density lipoprotein (VLDL) cholesterol measurementOrdered By: Millie Sharif on 08-26-2024 Calculated very low density lipoprotein (VLDL) cholesterol measurement 8 mg/dL 5-40 [facility] Carbon dioxide, total [Moles /volume] in Central venous bloodOrdered By: Millie Sharif on 08-26-2024 CO2 [Moles/Vol] 19.0 mmol/L Low 21.0-32.0 [facility] Chloride assayOrdered By: Me michelle Sharif on 08-26-2024 Chloride [Moles/Vol] 102 mmol/L 98-108 [facility] Comprehensive Metabolic Prof ilon 08-26-2024 Albumin [Mass/Vol] 3.5 g/dL Normal 3.5-5.0 [facility] Comment on above: Performed By: #### L 502.0250, L500.4050, L500.4100, L501.9520, L506.1001 ####[facility] [id number] [place], [address] Albumin/Globulin [Mass ratio] 0.9 {ratio} Normal 0.9-2.4 [facility] Comment on above: Performed By: #### L 502.0250, L500.4050, L500.4100, L501.9520, L506.1001 ####[facility] [address] [place], [address] ALK PHOS 120 U/L High 35-104 [facility] Comment on above: Performed By: #### L 502.0250, L500.4050, L500.4100, L501.9520, L506.1001 ####[facility] [id number] [place], [address] ALT [Catalytic activity/Vol] 18 U/L Normal <=34 [facility] Comment on above: Performed By: #### L 502.0250, L500.4050, L500.4100, L501.9520, L506.1001 ####[facility] [address] [place], [address] AST [Catalytic activity/Vol] 15 U/L Normal <=31 [facility] Comment on above: Performed By: #### L 502.0250, L500.4050, L500.4100, L501.9520, L506.1001 ####[facility] [address] [place], [address] BUN/CRE 68.8 RATIO High 10-20 [facility] Comment on above: Performed By: #### L 502.0250, L500.4050, L500.4100, L501.9520, L506.1001 ####[facility] [address] [place], [address] Calcium [Mass/Vol] 9.0 mg/dL Normal 7.6-11.0 [facility] Comment on above: Performed By: #### L 502.0250, L500.4050, L500.4100, L501.9520, L506.1001 ####[facility] [address] [place], [address] Chloride [Moles/Vol] 102 mmol/L Normal 98-108 [facility] Comment on above: Performed By: #### L 502.0250, L500.4050, L500.4100, L501.9520, L506.1001 ####[facility] [address] [place], [address] CO2 [Moles/Vol] 19.0 mmol/L Low 21.0-32.0 [facility] Comment on above: Performed By: #### L 502.0250, L500.4050, L500.4100, L501.9520, L506.1001 ####[facility] [address] [place], [address] Creatinine [Mass/Vol] 1.08 mg/dL Normal 0.70-1.20 [facility] Comment on above: Performed By: #### L 502.0250, L500.4050, L500.4100, L501.9520, L506.1001 ####[facility] [address] [place], [address] GAP 12 Normal 5-15 [facility] Comment on above: Performed By: #### L 502.0250, L500.4050, L500.4100, L501.9520, L506.1001 ####[facility] [address] [place], [address] GFR/1.73 sq M.predicted among non-blacks MDRD (S/P/Bld) [Vol rate/Area] 60 mL/min/{1.73_m2} Normal >60 [facility] Comment on above: Result Comment: mL/m in/1.73m2 CKD-EPI Creatinine Equation (2020) Performed By: #### L 502.0250, L500.4050, L500.4100, L501.9520, L506.1001 ####[facility] [address] [place], [address] Globulin (S) [Mass/Vol] 3.8 g/dL Normal 2.2-4.2 [facility] Comment on above: Performed By: #### L 502.0250, L500.4050, L500.4100, L501.9520, L506.1001 ####[facility] [address] [place], [address] Glucose [Mass/Vol] 168 mg/dL High 70-99 [facility] Comment on above: Performed By: #### L 502.0250, L500.4050, L500.4100, L501.9520, L506.1001 ####[facility] [address] [place], [address] Potassium [Moles/Vol] 4.4 mmol/L Normal 3.3-5.1 [facility] Comment on above: Performed By: #### L 502.0250, L500.4050, L500.4100, L501.9520, L506.1001 ####[facility] [address] [place], [address] Sodium [Moles/Vol] 133 mmol/L Normal 133-145 [facility] Comment on above: Performed By: #### L 502.0250, L500.4050, L500.4100, L501.9520, L506.1001 ####[facility] [address] [place], [address] T BILI < 0.15 Normal 0.00-1.30 [facility] Comment on above: Performed By: #### L 502.0250, L500.4050, L500.4100, L501.9520, L506.1001 ####[facility] [address] [place], [address] T PROT 7.3 g/dL Normal 5.9-8.4 [facility] Comment on above: Performed By: #### L 502.0250, L500.4050, L500.4100, L501.9520, L506.1001 ####[facility] [address] [place], [address] Urea nitrogen [Mass/Vol] 74 mg/dL High 4-19 [facility] Comment on above: Performed By: #### L 502.0250, L500.4050, L500.4100, L501.9520, L506.1001 ####[facility] [address] [place], [address] Endocrinology Visit Reporton 08-26-2024 Endocrinology Visit Report [facility] [address] [place] [address] OFFICE VISIT Date of Service: 08/26/24 MR#: [id number] Acct: [id number] Name: SANJUANITA JERRY Chanel Rep #: [id number] : 1965 Provider: SIAN morton Age/Sex: 59/F Location: [facility] Status: Signed Intake Vital Signs 05/27/24 10:09 07/27/24 11:37 08/26/24 10:55 Height 5 ft 4 ft 11.84 in 4 ft 11.5 in Weight: 96 lb BMI 19.1 BP 113/62 Blood Pressure Location Lt brachial Position Sitting Pulse 85 Pulse Source Monitor Pulse Oximetry (%) 97 Oxygen Delivery Method room air Intake Visit Reasons: 3 M FU Chief Complaint: f/u diabetes Cook Helper Required: No Accompanied by: Daughter Is patient in pain?: No Allergies No Known Allergies Allergy (Verified 08/26/24 10:57) Medications ???Medication ???Instructions ???Recorded ???Confirmed ???Type albuterol sulfate 90 mcg/actuation 2 puff inhalation Q4H PRN Sob / Or 10/01/18 08/26/24 History aerosol inhaler Wheezing atorvastatin 40 mg tablet 40 mg PO QHS cholesterol 02/26/23 08/26/24 History cholecalciferol (vitamin D3) 25 25 mcg PO DAILY supplement 3 08/26/24 History mcg (1,000 unit) tablet ferrous sulfate 325 mg (65 mg 325 mg PO DAILY supplement 3 08/26/24 History iron) tablet (FeroSul) blood-glucose meter (True Metrix #1 ea 08/19/23 08/26/24 Rx Glucose Meter) True Metrix Glucose Test Strip #50 ea 06/30/24 08/26/24 Rx (blood sugar diagnostic) insulin glargine 100 unit/mL (3 20 unit (0.2 mL) subcut DAILY #15 07/25/24 08/26/24 Rx mL) subcutaneous pen (Lantus mL Solostar U-100 Insulin) insulin lispro 100 unit/mL 5 unit (0.05 mL) subcut TIDAC #15 07/25/24 08/26/24 Rx subcutaneous pen (Humalog KwikPen mL (U-100) Insulin) lisinopril 10 mg tablet 10 mg PO DAILY #30 tabs 07/25/24 0 08/26/24 Rx loperamide 2 mg capsule 2 mg PO Q8 #0 caps 07/25/24 Rx pen needle, diabetic 31 gauge x #100 ea 07/25/24 08/26/24 Rx 1/4" (1st Tier Unifine Pentips) blood-glucose sensor (Dexcom G7 #3 ea 08/06/24 08/26/24 Rx Sensor device) 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 Below knee amputation Dysphagia Acid reflux Diabetes Surgical History History of appendectomy Status post below knee amputation of right lower extremity history EGD with dilatation S/P appendectomy H/O thumb surgery Family History Grandmother Breast cancer Father Heart disease Hypertension Sister Thyroid disorder Aunt Thyroid disorder Other Arthritis CVA (cerebral vascular accident) Kidney disease Myocardial infarction Social History household members: family Smoking Status: Heavy Smoker (>10/day) alcohol intake: never substance use type: does not use what type of physical activity do you participate in: walking HPI HPI Chief Complaint: f/u diabetes Details: SANJUANITA JERRY, is a 59 F who presents to the office today for evaluation and management of diabetes. A1C on 07/22/24 was 13.7%. Increased significantly from 05/27/24 at 8.5%. She states that early July she believes she got the stomach flu. She discontinued her diabetic medications at that time "since I wasn't eating, I didn't know what else to do." She did not contact our office and tell us she was ill or that she was discontinuing her medications. She was hospitalized in July for DKA after she discontinued her medications. BGL at time of arrival to ED was >1,100. She presented to our office after she was discharged from hospital. At that time she was instructed to take Lantus 15 u once daily and Humalog 5 u TIDCM and discontinue glipizide and SGLT2. CGM downloaded- she is having post meal elevations. Currently taking Lantus 15 u once daily and 0-5 u with breakfast, if bgl is <100 she will not take Humalog, and 5 u lunch/supper. She denies any significant episode of hypoglycemia that has required assistance from others. She is unsure if she is taking Farxiga at this time or not. BP is controlled. Currently taking lisinopril 10 mg once daily. She has significant osteoporosis. Prolia was denied by insurance. She is not willing to pursue zoledronic acid. She is due for routine labs. Denies any acute concerns. ROS Const Constitutional: Positive for fatigue and weight change (loss) ENT ENT: No dizziness/vertigo Cardio Cardiology: No chest pain at rest, chest (more content not included)... Normal [facility] Glomerular filtration rate ( GFR) estimation/1.73 sq m using serum, plasma, or whole bOrdered By: Millie Sharif on 08-26-2024 GFR/1.73 sq M.predicted among non-blacks MDRD (S/P/Bld) [Vol rate/Area] 60 mL/min/{1.73_m2} >60 [facility] Comment on above: mL/min/1.73m2 CKD-EP I Creatinine Equation (2020) LDL calc ser/plasOrdered By: Millie Sharif on 08-26-2024 Cholesterol in LDL [Mass/Vol] 65 mg/dL [facility] Comment on above: Opffdzreli=798-661 m g/dL & Higher Hxiz=608 mg/dL or greater Laboratory - Chemistry and C hemistry - challengeOrdered By: Millie Sharif on 08-26-2024 AST [Catalytic activity/Vol] 15 U/L <32 [facility] Lipid Profileon 08-26-2024 CHOL:HDL 1.88 Normal [facility] Comment on above: Performed By: #### L 502.0250, L500.4050, L500.4100, L501.9520, L506.1001 ####[facility] [address] [place], [address] Cholesterol [Mass/Vol] 156 mg/dL Normal <=200 [facility] Comment on above: Result Comment: Chol esterol level, Desirable <200 mg/dL Borderline high cholesterol 200-239 mg/dL High cholesterol >=240 mg/dL Recommendations of the NCEP Adult Treatment Panel for the following risk-cutoff thresholds for the [place] population. Performed By: #### L 502.0250, L500.4050, L500.4100, L501.9520, L506.1001 ####[facility] [address] [place], [address] Cholesterol in HDL [Mass/Vol] 83 mg/dL Normal [facility] Comment on above: Result Comment: Stefani onal Cholesterol Education Program (NCEP) guidelines: <40 mg/dL: Low HDL-cholesterol (major risk factor for CHD) >= 60 mg/dL: High HDL-cholesterol (negative risk factor for CHD) HDL-cholesterol is affected by a number of factors, e.g. smoking, exercise, hormones, sex and age. Performed By: #### L 502.0250, L500.4050, L500.4100, L501.9520, L506.1001 ####[facility] [address] [place], [address] Cholesterol in LDL [Mass/Vol] 65 mg/dL Normal [facility] Comment on above: Result Comment: Bord zqlztg=287-288 mg/dL Higher Mgnb=932 mg/dL or greater Performed By: #### L 502.0250, L500.4050, L500.4100, L501.9520, L506.1001 ####[facility] [address] [place], [address] Cholesterol in VLDL [Mass/Vol] 8 mg/dL Normal 5-40 [facility] Comment on above: Performed By: #### L 502.0250, L500.4050, L500.4100, L501.9520, L506.1001 ####[facility] [address] [place], [address] Triglyceride [Mass/Vol] 42 mg/dL Normal [facility] Comment on above: Result Comment: The drugs N-Acetylcysteine and Metamizole may falsely depress this assay. Normal range: <150 mg/dL Borderline High: 150-199 mg/dL High: 200-499 mg/dL Very High: >500 mg/dL Performed By: #### L 502.0250, L500.4050, L500.4100, L501.9520, L506.1001 ####[facility] [address] [place], [address] Microalb:Creat Ratio,Random URon 08-26-2024 MALB:CREAT Normal [facility] Comment on above: Result Comment: UTO PT BRINGING BACK Performed By: #### L 502.0250, L500.4050, L500.4100, L501.9520, L506.1001 ####[facility] [address] [place], [address] MICROALBUMIN,UR Normal NO RANGE EST. [facility] Comment on above: Result Comment: UTO PT BRINGING BACK Performed By: #### L 502.0250, L500.4050, L500.4100, L501.9520, L506.1001 ####[facility] [address] [place], [address] UR CREAT Normal 28.00-217.00 [facility] Comment on above: Result Comment: UTO PT BRINGING BACK Performed By: #### L 502.0250, L500.4050, L500.4100, L501.9520, L506.1001 ####[facility] [address] [place], [address] Potassium measurement (mass/ volume)Ordered By: Millie Sharif on 08-26-2024 Potassium (Unsp spec) [Mass/Vol] 4.4 mmol/L 3.3-5.1 [facility] Screening total cholesterol/ high density lipoprotein (HDL) cholesterol ratioOrdered By: Millie Sharif on 08-26-2024 Cholesterol.total/Choles terol in HDL [Mass ratio] 1.88 {ratio} [facility] Serum creatinine measurement (mass/volume)Ordered By: Millie Sharif on 08-26-2024 Creatinine [Mass/Vol] 1.08 mg/dL 0.70-1.20 [facility] Serum globulin measurementOr dered By: Millie Sharif on 08-26-2024 Globulin (S) [Mass/Vol] 3.8 g/dL 2.2-4.2 [facility] Serum glucose measurement (m ass/volume)Ordered By: Millie Sharif on 08-26-2024 Glucose [Mass/Vol] 168 mg/dL High 70-99 [facility] Serum or plasma alanine odom otransferase (ALT) measurementOrdered By: Millie Sharif on 08-26-2024 ALT [Catalytic activity/Vol] 18 U/L <35 [facility] Serum or plasma albumin jacobo urement (mass/volume)Ordered By: Millie Sharif on 08-26-2024 Albumin [Mass/Vol] 3.5 g/dL 3.5-5.0 [facility] Serum or plasma albumin/glob ulin mass ratioOrdered By: Millie Sharif on 08-26-2024 Albumin/Globulin [Mass ratio] 0.9 {ratio} 0.9-2.4 [facility] Serum or plasma alkaline garland sphatase measurementOrdered By: Millie Sharif on 08-26-2024 ALP [Catalytic activity/Vol] 120 U/L High 35-104 [facility] Serum or plasma calcium jacobo urement (mass/volume)Ordered By: Millie Sharif on 08-26-2024 Calcium [Mass/Vol] 9.0 mg/dL 7.6-11.0 [facility] Serum or plasma cholesterol in HDL measurement (mass/volume)Ordered By: Millie Sharif on 08-26-2024 Cholesterol in HDL [Mass/Vol] 83 mg/dL >40 [facility] Comment on above: National Cholesterol Education Program (NCEP) guidelines:<40 mg/dL: Low HDL-cholesterol (major risk factor for CHD)>= 60 mg/dL: High HDL-cholesterol (negative risk factor for CHD)HDL-cholesterol is affected by a number of factors, e.g. smoking, exercise, hormones, sex and age. Serum or plasma cholesterol measurement (mass/volume)Ordered By: Millie Sharif on 08-26-2024 Cholesterol [Mass/Vol] 156 mg/dL <201 [facility] Comment on above: Cholesterol level, D esirable <200 mg/dLBorderline high cholesterol 200-239 mg/dLHigh cholesterol >=240 mg/dLRecommendations of the NCEP Adult Treatment Panel for the following risk-cutoff thresholds for the [place] population. Serum or plasma urea nitroge n measurement (mass/volume)Ordered By: Millie Sharif on 08-26-2024 Urea nitrogen [Mass/Vol] 74 mg/dL High 4-19 [facility] Sodium levelOrdered By: Jose Sharif on 08-26-2024 Sodium [Moles/Vol] 133 mmol/L 133-145 [facility] TSH DL <= 0.005 mIU/L QnOrde red By: Millie Sharif on 08-26-2024 TSH Qn 1.100 uIU/mL 0.300-4.200 [facility] Thyroid Stim Hormone (TSH)on 08-26-2024 TSH 1.100 uIU/mL Normal 0.300-4.200 [facility] Comment on above: Performed By: #### L 502.0250, L500.4050, L500.4100, L501.9520, L506.1001 ####[facility] [address] [place], [place], [address] Total proteinOrdered By: Stefania Sharif on 08-26-2024 Protein [Mass/Vol] 7.3 g/dL 5.9-8.4 [facility] Triglycerides measurementOrd ered By: Millie Sharif on 08-26-2024 Triglyceride [Mass/Vol] 42 mg/dL <199 [facility] Comment on above: The drugs N-Acetylcy steine and Metamizole may falsely depress this assay. Normal range: <150 mg/dLBorderline High: 150-199 mg/dLHigh: 200-499 mg/dLVery High: >500 mg/dL Vitamin D,25 Hydroxyon 08-26 Vitamin D 25-OH 31.9 ng/mL Normal 30-100 [facility] Comment on above: Result Comment: Tiny min D Status Deficiency: <20 ng/mL (50nmol/L) Insufficiency: 20-30 ng/mL (50-75 nmol/L) Sufficiency: 30-100 ng/mL (75-250 nmol/L) Toxicity: >100 ng/mL (>250 nmol/L) Performed By: #### L 502.0250, L500.4050, L500.4100, L501.9520, L506.1001 ####[facility] [address] [place], [address] CNOVon 08-20-2024 CNOV Office Visit (PODIWS) SANJUANITA JERRY ([id number]) 1965 F Date Time Provider Department 08/20/24 11:30 AM [facility] PODIWS During your visit today, we recorded the following information about you: Miriam Del Angel, JANETH 08/20/2024 7:12 PM Signed Patient presents with: Left Foot - Established Patient, Follow Up, Diabetic Foot Care, Diabetic Foot Ulcer Patient presents for follow up diabetic foot/nail care. Has new ulcer to lateral foot. States that she was scraping down her callus and the whole callus came off, occurred last Saturday. Has been dressing it with Triple antibiotic ointment, Aquacel, gauze, and gauze wrap. Also has callus to the lateral 4th toe. Utilizes lambs wool DEXTER 06/18/24 [facility] 08/20/2024 11:52 AM Addendum Diabetes Foot Care Instructions When you have diabetes, proper foot care is very important. Poor foot care may lead to amputation of a foot or leg. As a person with diabetes, you are more vulnerable to foot problems, because diabetes can damage your nerves and reduce blood flow to your feet. Here are some diabetes foot care tips to follow: Wash and Dry Your Feet Daily Use mild soaps Use warm water Pat your skin dry; do not rub. Thoroughly dry your feet. After washing, use lotion on your feet to prevent cracking. Do not put lotion between your toes. Examine Your Feet Each Day Check the tops and bottoms of your feet. Have someone else look at your feet if you cannot see them. Check for dry, cracked skin. Look for blisters, cuts, scratches, or other sores. Check for redness, increased warmth, or tenderness when touching any area of your feet. Check for ingrown toenails, corns, and calluses. If you get a blister or sore from your shoes, do not "pop" it. Apply a bandage and wear a different pair of shoes. Take Care of Your Toenails Cut toenails after bathing, when they are soft. Cut toenails straight across and smooth with a nail file. Avoid cutting into the corners of toes. Do not cut cuticles. If you have neuropathy (or decreased sensation in your feet) a neonatal intensive care nurse should always cut your toenails. Be Careful When Exercising Walk and exercise in comfortable shoes. Do not exercise when you have open sores on your feet. Protect Your Feet With Shoes and Socks Never go barefoot. Always protect your feet by wearing shoes or hard-soled slippers or footwear. Avoid shoes with high heels and pointed toes. Avoid shoes that expose your toes or heels (such as open-toed shoes or sandals). These types of shoes increase your risk for injury and potential infections. Try on new footwear with the type of socks you usually wear. Do not wear new shoes for more than an hour at a time. Change your socks daily. Look and feel inside your shoes before putting them on to make sure there are no foreign objects or rough areas. Avoid tight socks. Wear natural-fiber socks (cotton, wool, or a cotton-wool blend). Wear special shoes if your health care provider recommends them. Wear shoes/boots that will protect your feet from various weather conditions (cold, moisture, etc.). Make sure your shoes fit properly. If you have neuropathy (nerve damage), you may not notice that your shoes are too tight. Perform the footwear test described below. Footwear Test Use this simple test to see if your shoes fit correctly: Stand on a piece of paper. (Make sure you are standing and not sitting, because your foot changes shape when you stand.) Trace the outline of your foot. Trace the outline of your shoe. Compare the tracings: Is the shoe too narrow? Is your foot crammed into the shoe? The shoe should be at least 1/2 inch longer than your longest toe and as wide as your foot. Proper Shoe Choices The following types of shoes are best for people with diabetes Closed toes and heels Leather uppers without a seam inside At least 1/2 inch extra space at the end of your longest toe Inside of shoe should be soft with no rough areas Outer sole should be made of stiff material Shoes should be at least as wide as your feet Tips for Foot Care in Diabetes Don't wait to treat a minor foot problem if you have diabetes. Follow your health care provider's guidelines and first aid guidelines. Report foot injuries and infections to your health care provider immediately. Check water temperature with your elbow, not your foot. Do not use a heating pad on your feet. Do not cross your legs. Do not self-treat your corns, calluses, or other foot problems. Go to your health care provider or neonatal intensive care nurse to treat these conditions. - Santyl (collagenase) ointment 30 g with one refill was called into [facility] in [place]; apply once daily to the wound, cover with a piece of [employer] dressing, and secure with roll gauze - Continue using your [employer] dressing cut to fit over the wound - (more content not included)... Normal [facility] Absolute lymphocyte countOrd ered By: Floresita Capellan on 07-25-2024 Lymphocytes Auto (Unsp spec) [#/Vol] 1.62 10*3/uL 0.83-4.51 [facility] Absolute neutrophil countOrd ered By: Floresita Capellan on 07-25-2024 Neutrophils (Bld) [#/Vol] 7.0 10*3/uL 2.0-7.7 [facility] Anion gap in Serum or Plasma Ordered By: Floresita Capellan on 07-25-2024 Anion gap [Moles/Vol] 10 mmol/L 5-15 [facility] Automated lymphocyte count a s percentage of total leukocytesOrdered By: Floresita Capellan on 07-25-2024 Lymphocytes/100 WBC Auto (Unsp spec) 17.5 % Low 19-41 [facility] BUN/creatinine ratioOrdered By: Floresita Capellan on 07-25-2024 Urea nitrogen/Creatinine [Mass ratio] 20.2 mg/mg High 10- [facility] Basic Metabolic Profile (BMP )on 07-25-2024 BUN/CRE 20.2 RATIO High 01-04 [facility] Comment on above: Performed By: #### L 100.0100, L500.2500, L501.2300, L501.5200 ####[facility] [address] [place], [address] Calcium [Mass/Vol] 7.9 mg/dL Normal 7.6-11.0 [facility] Comment on above: Performed By: #### L 100.0100, L500.2500, L501.2300, L501.5200 ####[facility] [address] [place], [address] Chloride [Moles/Vol] 111 mmol/L High 98-108 [facility] Comment on above: Performed By: #### L 100.0100, L500.2500, L501.2300, L501.5200 ####[facility] [address] [place], [address] CO2 [Moles/Vol] 18.5 mmol/L Low 21.0-32.0 [facility] Comment on above: Performed By: #### L 100.0100, L500.2500, L501.2300, L501.5200 ####[facility] [address] [place], [address] Creatinine [Mass/Vol] 1.30 mg/dL High 0.70-1.20 [facility] Comment on above: Performed By: #### L 100.0100, L500.2500, L501.2300, L501.5200 ####[facility] [address] [place], [address] ECRCL 30.46 ml/min Low 50-250 [facility] Comment on above: Performed By: #### L 100.0100, L500.2500, L501.2300, L501.5200 ####[facility] [address] [place], [address] GAP 10 Normal 5-15 [facility] Comment on above: Performed By: #### L 100.0100, L500.2500, L501.2300, L501.5200 ####[facility] [address] [place], [address] GFR/1.73 sq M.predicted among non-blacks MDRD (S/P/Bld) [Vol rate/Area] 48 mL/min/{1.73_m2} Low >60 [facility] Comment on above: Result Comment: mL/m in/1.73m2 CKD-EPI Creatinine Equation (2020) Performed By: #### L 100.0100, L500.2500, L501.2300, L501.5200 ####[facility] [address] [place], [address] Glucose [Mass/Vol] 124 mg/dL High 70-99 [facility] Comment on above: Performed By: #### L 100.0100, L500.2500, L501.2300, L501.5200 ####[facility] [address] [place], [address] Potassium [Moles/Vol] 3.4 mmol/L Normal 3.3-5.1 [facility] Comment on above: Performed By: #### L 100.0100, L500.2500, L501.2300, L501.5200 ####[facility] [address] [place], [address] Sodium [Moles/Vol] 139 mmol/L Normal 133-145 [facility] Comment on above: Performed By: #### L 100.0100, L500.2500, L501.2300, L501.5200 ####[facility] [address] [place], [address] Urea nitrogen [Mass/Vol] 26 mg/dL High 4-19 [facility] Comment on above: Performed By: #### L 100.0100, L500.2500, L501.2300, L501.5200 ####[facility] [address] [place], [address] Basophil percentageOrdered B y: Floresita Timi on 07-25-2024 Basophils/100 WBC (Bld) 0.2 % 0-1 [facility] Bedside Glucoseon 07-25-2024 FINGERSTICK GLU 250 mg/dL High 74-106 [facility] Comment on above: Result Comment: HERMINIO GEMENT OF PATIENT CARE PER NURSING PROTOCOL Performed By: #### L 501.080 ####[facility] [address] [place], [address] FINGERSTICK GLU 155 mg/dL High 74-106 [facility] Comment on above: Result Comment: HERMINIO GEMENT OF PATIENT CARE PER NURSING PROTOCOL Performed By: #### L 501.080 ####[facility] [address] [place], [address] FINGERSTICK GLU 365 mg/dL High 74-106 [facility] Comment on above: Result Comment: HERMINIO GEMENT OF PATIENT CARE PER NURSING PROTOCOL Performed By: #### L 501.080 ####[facility] [address] [place], [address] CBC W/Diff, Automatedon 07-16 Absolute Lymph 1.62 X10 3/uL Normal 0.83-4.51 [facility] Comment on above: Performed By: #### L 100.0100, L500.2500, L501.2300, L501.5200 ####[facility] [address] [place], [address] Absolute Neut 7.0 X10 3/uL Normal 2.0-7.7 [facility] Comment on above: Performed By: #### L 100.0100, L500.2500, L501.2300, L501.5200 ####[facility] [address] [place], [address] Basophils/100 WBC (Bld) 0.2 % Normal 0-1 [facility] Comment on above: Performed By: #### L 100.0100, L500.2500, L501.2300, L501.5200 ####[facility] [address] [place], [address] Eosinophils/100 WBC (Bld) 0.6 % Normal 0-5 [facility] Comment on above: Performed By: #### L 100.0100, L500.2500, L501.2300, L501.5200 ####[facility] [address] [place], [address] Erythrocyte distribution width (RBC) [Ratio] 15.2 % High 11.6-14.6 [facility] Comment on above: Performed By: #### L 100.0100, L500.2500, L501.2300, L501.5200 ####[facility] [address] [place], [address] Hematocrit (Bld) [Volume fraction] 23.6 % Low 37-47 [facility] Comment on above: Performed By: #### L 100.0100, L500.2500, L501.2300, L501.5200 ####[facility] [address] [place], [address] Hemoglobin (Bld) [Mass/Vol] 7.7 g/dL Low 12.0-15.0 [facility] Comment on above: Performed By: #### L 100.0100, L500.2500, L501.2300, L501.5200 ####[facility] [address] [place], [address] IG% 0.600 Normal 0.0-0.9 [facility] Comment on above: Result Comment: IG% - Immature Granulocytes (promyelocytes, myelocytes and metamyelocytes) > 1% indicates that a LEFT SHIFT is Present. Performed By: #### L 100.0100, L500.2500, L501.2300, L501.5200 ####[facility] [address] [place], [address] Lymphocytes/100 WBC (Bld) 17.5 % Low 19-41 [facility] Comment on above: Performed By: #### L 100.0100, L500.2500, L501.2300, L501.5200 ####[facility] [address] [place], [address] MCH (RBC) [Entitic mass] 28.4 pg Normal 27.0-32.0 [facility] Comment on above: Performed By: #### L 100.0100, L500.2500, L501.2300, L501.5200 ####[facility] [address] [place], [address] MCHC (RBC) [Mass/Vol] 32.6 g/dL Normal 32-36 [facility] Comment on above: Performed By: #### L 100.0100, L500.2500, L501.2300, L501.5200 ####[facility] [address] [place], [address] MCV (RBC) [Entitic vol] 87.1 fL Normal 81-99 [facility] Comment on above: Performed By: #### L 100.0100, L500.2500, L501.2300, L501.5200 ####[facility] [address] [place], [address] Monocytes/100 WBC (Bld) 5.2 % Normal 0-10 [facility] Comment on above: Performed By: #### L 100.0100, L500.2500, L501.2300, L501.5200 ####[facility] [address] [place], [address] Neutrophils/100 WBC (Bld) 75.9 % High 47-70 [facility] Comment on above: Performed By: #### L 100.0100, L500.2500, L501.2300, L501.5200 ####[facility] [address] [place], [address] Nucleated RBC (Bld) [#/Vol] 0 10*3/uL Normal 0-5 [facility] Comment on above: Performed By: #### L 100.0100, L500.2500, L501.2300, L501.5200 ####[facility] [address] [place], [address] Platelet mean volume (Bld) [Entitic vol] 11.2 fL Normal 6.2-12.0 [facility] Comment on above: Performed By: #### L 100.0100, L500.2500, L501.2300, L501.5200 ####[facility] [address] [place], [address] Platelets (Bld) [#/Vol] 315 10*3/uL Normal 150-450 [facility] Comment on above: Performed By: #### L 100.0100, L500.2500, L501.2300, L501.5200 ####[facility] [address] [place], [address] RBC (Bld) [#/Vol] 2.71 10*6/uL Low 4.2-5.4 [facility] Comment on above: Performed By: #### L 100.0100, L500.2500, L501.2300, L501.5200 ####[facility] [address] [place], [address] RDW SD 48.5 fl High 35.1-43.9 [facility] Comment on above: Performed By: #### L 100.0100, L500.2500, L501.2300, L501.5200 ####[facility] [address] [place], [address] WBC (Bld) [#/Vol] 9.2 10*3/uL Normal 4.4-11.0 [facility] Comment on above: Performed By: #### L 100.0100, L500.2500, L501.2300, L501.5200 ####[facility] [address] [place], [address] Carbon dioxide, total [Moles /volume] in Central venous bloodOrdered By: Floresita Capellan on 07-25-2024 CO2 [Moles/Vol] 18.5 mmol/L Low 21.0-32.0 [facility] Chloride assayOrdered By: Darrell Capellan on 07-25-2024 Chloride [Moles/Vol] 111 mmol/L High 98-108 [facility] Eosinophil percentageOrdered By: Floresita Capellan on 07-25-2024 Eosinophils/100 WBC (Bld) 0.6 % 0-5 [facility] Erythrocyte distribution wid th ratioOrdered By: Floresita Capellan on 07-25-2024 Erythrocyte distribution width (RBC) [Ratio] 15.2 % High 11.6-14.6 [facility] Erythrocyte distribution wid th standard deviationOrdered By: Floresita Capellan on 07-25-2024 Erythrocyte distribution width (RBC) [Ratio] 48.5 fl High 35.1-43.9 [facility] Glomerular filtration rate ( GFR) estimation/1.73 sq m using serum, plasma, or whole bOrdered By: Floresita Capellan on 07-25-2024 GFR/1.73 sq M.predicted among non-blacks MDRD (S/P/Bld) [Vol rate/Area] 48 mL/min/{1.73_m2} Low >60 [facility] Comment on above: mL/min/1.73m2 CKD-EP I Creatinine Equation (2020) Glucose measurement at bedsi deOrdered By: Floresita Capellan on 07-25-2024 Glucose [Mass/Vol] 250 mg/dL High 74-106 [facility] Comment on above: MANAGEMENT OF PATIEN T CARE PER NURSING PROTOCOL Hematocrit Auto (Bld) [Volum e fraction]Ordered By: Floresita Capellan on 07-25-2024 Hematocrit (Bld) [Volume fraction] 23.6 % Low 37-47 [facility] Hemoglobin measurementOrdere d By: Floresita Capellan on 07-25-2024 Hemoglobin (Bld) [Mass/Vol] 7.7 g/dL Low 12.0-15.0 [facility] Immature granulocytes/100 WB C Auto (Bld)Ordered By: Floresita Capellan on 07-25-2024 Immature granulocytes/100 WBC (Bld) 0.600 % 0.0-0.9 [facility] Comment on above: IG% - Immature Granu locytes (promyelocytes, myelocytes and metamyelocytes) > 1% indicates that a LEFT SHIFT is Present. MCV (mean corpuscular volume ) determinationOrdered By: Floresita Capellan on 07-25-2024 MCV (RBC) [Entitic vol] 87.1 fL 81-99 [facility] Magnesiumon 07-25-2024 Magnesium [Mass/Vol] 1.5 mg/dL Normal 1.5-2.2 [facility] Comment on above: Performed By: #### L 100.0100, L500.2500, L501.2300, L501.5200 ####[facility] [address] [facility] [place], [address] Magnesium measurement (mass/ volume)Ordered By: Folresita Capellan on 07-25-2024 Magnesium (Unsp spec) [Mass/Vol] 1.5 mg/dL 1.5-2.2 [facility] Mean corpuscular hemoglobin (MCH) determinationOrdered By: Floresita Capellan on 07-25-2024 MCH (RBC) [Entitic mass] 28.4 pg 27.0-32.0 [facility] Mean corpuscular hemoglobin concentration (MCHC) determinationOrdered By: Floresita Capellan on 07-25-2024 MCHC (RBC) [Mass/Vol] 32.6 g/dL 32-36 [facility] Mean platelet volume determi nationOrdered By: Floresita Capellan on 07-25-2024 Platelet mean volume (Bld) [Entitic vol] 11.2 fL 6.2-12.0 [facility] Monocyte percentageOrdered B y: Floresita Capellan on 07-25-2024 Monocytes/100 WBC (Bld) 5.2 % 0-10 [facility] Neutrophil percentageOrdered By: Floresita Capellan on 07-25-2024 Neutrophils/100 WBC (Bld) 75.9 % High 47-70 [facility] Nucleated red blood cell per centageOrdered By: Floresita Capellan on 07-25-2024 Nucleated RBC/100 WBC (Bld) [Ratio] 0 % 0-5 [facility] Phosphoruson 07-25-2024 Phosphate [Mass/Vol] 1.9 mg/dL Low 2.7-4.5 [facility] Comment on above: Performed By: #### L 100.0100, L500.2500, L501.2300, L501.5200 ####[facility] [address] [place], [address] Platelet countOrdered By: Darrell Capellan on 07-25-2024 Platelets (Bld) [#/Vol] 315 10*3/uL 150-450 [facility] Potassium measurement (mass/ volume)Ordered By: Floresita Capellan on 07-25-2024 Potassium (Unsp spec) [Mass/Vol] 3.4 mmol/L 3.3-5.1 [facility] RBC Auto (Bld) [#/Vol]Ordere d By: Floresita Capellan on 07-25-2024 RBC (Bld) [#/Vol] 2.71 10*6/uL Low 4.2-5.4 [facility] Serum creatinine measurement (mass/volume)Ordered By: Floresita Capellan on 07-25-2024 Creatinine [Mass/Vol] 1.30 mg/dL High 0.70-1.20 [facility] Serum glucose measurement (m ass/volume)Ordered By: Floresita Capellan on 07-25-2024 Glucose [Mass/Vol] 124 mg/dL High 70-99 [facility] Serum or plasma calcium jacobo urement (mass/volume)Ordered By: Floresita Capellan on 07-25-2024 Calcium [Mass/Vol] 7.9 mg/dL 7.6-11.0 [facility] Serum or plasma urea nitroge n measurement (mass/volume)Ordered By: Floresita Capellan on 07-25-2024 Urea nitrogen [Mass/Vol] 26 mg/dL High 4-19 [facility] Sodium levelOrdered By: Marilu Capellan on 07-25-2024 Sodium [Moles/Vol] 139 mmol/L 133-145 [facility] Urine Cultureon 07-25-2024 [facility] Urine Culture Urine Culture Urine Culture Escherichia coli Temple Count 50,000-80,000 Escherichia coli: REACTION Ampicillin Islt MARINA >=32 Ampicillin+Sulbac Islt MARINA 16 I Cefepime Islt MAIRNA <=0.12 S cefTRIAXone Islt MARINA <=0.25 S Ciprofloxacin Islt MARINA <=0.06 S B-Lactamase Extended Susc Islt NEG Gentamicin Islt MARINA <=1 S levoFLOXacin Islt MARINA <=0.12 S Meropenem Islt MARINA <=0.25 S Nitrofurantoin Islt MARINA <=16 S Pip+Tazo Islt MARINA <=4 S TMP SMX Islt MARINA <=20 S Normal [facility] Comment on above: Performed By: #### M 100.2200 ####[facility] [address] [place], [address] White blood cell (WBC) count Ordered By: Floresita Capellan on 07-25-2024 WBC (Bld) [#/Vol] 9.2 10*3/uL 4.4-11.0 [facility] Basic Metabolic Profile (BMP )on 07-24-2024 Potassium [Moles/Vol] 2.6 mmol/L Invalid Interpretation Code 3.3-5.1 [facility] Comment on above: Result Comment: Crit ical Result(s) Called to Beny FOWLER (MS3): by Harrison:??Results read back by same. Critical Result(s) Called at: by:??Results read back by same. AMENDED REPORT 07/24/24 0747 K previously reported as: 2.6 *L mmol/L Critical Result(s) Called to Beny FOWLER (MS3): by Harrison:??Results read back by same. Performed By: #### L 100.0100, L500.2500 ####[facility] [address] [place], [address] Bedside Glucoseon 07-24-2024 FINGERSTICK GLU 89 mg/dL Normal 74-[address] [place] [address] Comment on above: Result Comment: HERMINIO GEMENT OF PATIENT CARE PER NURSING PROTOCOL Performed By: #### L 501.080 ####[facility] [address] [place], [address] FINGERSTICK GLU 38 mg/dL Invalid Interpretation Code -[address] [place] [address] Comment on above: Result Comment: Snac k Given MANAGEMENT OF PATIENT CARE PER NURSING PROTOCOL Performed By: #### L 501.080 ####[facility] [address] [place], [address] FINGERSTICK GLU 43 mg/dL Invalid Interpretation Code [address] [place] [address] Comment on above: Result Comment: Snac k Given MANAGEMENT OF PATIENT CARE PER NURSING PROTOCOL Performed By: #### L 501.080 ####[facility] [address] [place], [address] FINGERSTICK GLU 93 mg/dL Normal 74-106 [facility] Comment on above: Result Comment: HERMINIO GEMENT OF PATIENT CARE PER NURSING PROTOCOL Performed By: #### L 501.080 ####[facility] [address] [place], [address] FINGERSTICK GLU 248 mg/dL High 74-106 [facility] Comment on above: Result Comment: HERMINIO GEMENT OF PATIENT CARE PER NURSING PROTOCOL Performed By: #### L 501.080 ####[facility] [address] [place], [address] FINGERSTICK GLU 215 mg/dL High 74-106 [facility] Comment on above: Result Comment: HERMINIO GEMENT OF PATIENT CARE PER NURSING PROTOCOL Performed By: #### L 501.080 ####[facility] [address] [place], [address] FINGERSTICK GLU 140 mg/dL High 74-106 [facility] Comment on above: Result Comment: HERMINIO GEMENT OF PATIENT CARE PER NURSING PROTOCOL Performed By: #### L 501.080 ####[facility] [address] [place], [address] FINGERSTICK GLU 165 mg/dL High 74-106 [facility] Comment on above: Result Comment: HERMINIO GEMENT OF PATIENT CARE PER NURSING PROTOCOL Performed By: #### L 501.080 ####[facility] [address] [place], [address] CBC W/Diff, Automatedon 05-0 9-5 Absolute Lymph 1.53 X10 3/uL Normal 0.83-4.51 [facility] Comment on above: Performed By: #### L 100.0100, L500.2500 ####[facility] [address] [place], [address] Absolute Neut 8.8 X10 3/uL High 2.0-7.7 [facility] Comment on above: Performed By: #### L 100.0100, L500.2500 ####[facility] [address] [place], [address] Basophils/100 WBC (Bld) 0.3 % Normal 0-1 [facility] Comment on above: Performed By: #### L 100.0100, L500.2500 ####[facility] [address] [place], [address] Eosinophils/100 WBC (Bld) 0.7 % Normal 0-5 [facility] Comment on above: Performed By: #### L 100.0100, L500.2500 ####[facility] [address] [place], [address] Erythrocyte distribution width (RBC) [Ratio] 14.8 % High 11.6-14.6 [facility] Comment on above: Performed By: #### L 100.0100, L500.2500 ####[facility] [address] [place], [address] Hematocrit (Bld) [Volume fraction] 22.6 % Low 37-47 [facility] Comment on above: Performed By: #### L 100.0100, L500.2500 ####[facility] [address] [place], [address] Hemoglobin (Bld) [Mass/Vol] 7.4 g/dL Low 12.0-15.0 [facility] Comment on above: Performed By: #### L 100.0100, L500.2500 ####[facility] [address] [place], [address] IG% 0.500 Normal 0.0-0.9 [facility] Comment on above: Result Comment: IG% - Immature Granulocytes (promyelocytes, myelocytes and metamyelocytes) > 1% indicates that a LEFT SHIFT is Present. Performed By: #### L 100.0100, L500.2500 ####[facility] [address] [place], [address] Lymphocytes/100 WBC (Bld) 13.9 % Low 19-41 [facility] Comment on above: Performed By: #### L 100.0100, L500.2500 ####[facility] [address] [place], [address] MCH (RBC) [Entitic mass] 27.9 pg Normal 27.0-32.0 [facility] Comment on above: Performed By: #### L 100.0100, L500.2500 ####[facility] [address] [place], [address] MCHC (RBC) [Mass/Vol] 32.7 g/dL Normal 32-36 [facility] Comment on above: Performed By: #### L 100.0100, L500.2500 ####[facility] [address] [place], [address] MCV (RBC) [Entitic vol] 85.3 fL Normal 81-99 [facility] Comment on above: Performed By: #### L 100.0100, L500.2500 ####[facility] [address] [place], [address] Monocytes/100 WBC (Bld) 4.3 % Normal 0-10 [facility] Comment on above: Performed By: #### L 100.0100, L500.2500 ####[facility] [address] [place], [address] Neutrophils/100 WBC (Bld) 80.3 % High 47-70 [facility] Comment on above: Performed By: #### L 100.0100, L500.2500 ####[facility] [address] [place], [address] Nucleated RBC (Bld) [#/Vol] 0 10*3/uL Normal 0-5 [facility] Comment on above: Performed By: #### L 100.0100, L500.2500 ####[facility] [address] [place], [address] Platelet mean volume (Bld) [Entitic vol] 11.0 fL Normal 6.2-12.0 [facility] Comment on above: Performed By: #### L 100.0100, L500.2500 ####[facility] [address] [place], [address] Platelets (Bld) [#/Vol] 312 10*3/uL Normal 150-450 [facility] Comment on above: Performed By: #### L 100.0100, L500.2500 ####[facility] [address] [place], [address] RBC (Bld) [#/Vol] 2.65 10*6/uL Low 4.2-5.4 [facility] Comment on above: Performed By: #### L 100.0100, L500.2500 ####[facility] [address] [place], [address] RDW SD 46.1 fl High 35.1-43.9 [facility] Comment on above: Performed By: #### L 100.0100, L500.2500 ####[facility] [address] [place], [address] WBC (Bld) [#/Vol] 11.0 10*3/uL Normal 4.4-11.0 [facility] Comment on above: Performed By: #### L 100.0100, L500.2500 ####[facility] [address] [place], [address] Electrocardiogram reportOrde red By: Faisal Montesinos on 07-24-2024 EKG study [facility] [address] [place] [address] 12 Lead EKG 07/22/24 0732 MR#: [id number] Acct: [id number] Name: SANJUANITA JERRY Rep #:[id number] : 1965 59 From: Faisal moore MD Attending Dr: Dr. Floresita aCpellan DO Chanel tatus: ADM IN Ordering Dr: Nani Coleman DO Date: 0 07/22/24 Location: [facility] Sex: F C Admitted: 07/22/24 Test Reason : NEURO Blood Pressure : */* mmHG Vent. Rate : 85 BPM Atrial Rate : 85 BPM P-R Int : 140 ms QRS Dur : 82 ms QT Int : 328 ms P-R-T Axes : 73 52 -48 degrees QTcB Int : 390 ms Normal sinus rhythm ST & T wave abnormality, consider inferior ischemia ST & T wave abnormality, consider anterolateral ischemia Abnormal ECG Confirmed by Faisal Montesinos ([id number]), social worker psychiatric JUAN GUZMAN ([id number]) on 07/24/2024 12:21:55 PM Referred By: Confirmed By: Faisal Montesinos 07/24/24 1221 Date _ Faisal Montesinos MD CC: Dr. Art Herman MD; Dr. Nani Coleman DO; Dr. Floresita Capellan DO ~ Signed [facility] Other Phone: Glucoseon 07-24-2024 Glucose [Mass/Vol] 94 mg/dL Normal 70-99 [facility] Comment on above: Performed By: #### L 501.0100 ####[facility] [address] [place], [place], [address] Hemoglobinon 07-24-2024 Hemoglobin (Bld) [Mass/Vol] 9.0 g/dL Low 12.0-15.0 [facility] Comment on above: Performed By: #### L 100.1300 ####[facility] [address] [place], [place], [address] Basic Metabolic Profile (BMP )on 07-23-2024 BUN/CRE 19.5 RATIO Normal 10-20 [facility] Comment on above: Order Comment: PT SAMIRA Buchanan GETTING A BATH.Call MD with results STAT Performed By: #### L 500.2500 ####[facility] [address] [place], [address] Calcium [Mass/Vol] 7.7 mg/dL Normal 7.6-11.0 [facility] Comment on above: Order Comment: PT SAMIRA Buchanan GETTING A BATH.Call MD with results STAT Performed By: #### L 500.2500 ####[facility] [address] [place], [address] Chloride [Moles/Vol] 106 mmol/L Normal 98-108 [facility] Comment on above: Order Comment: PT SAMIRA Buchanan GETTING A BATH.Call MD with results STAT Performed By: #### L 500.2500 ####[facility] [address] [place], [address] CO2 [Moles/Vol] 23.1 mmol/L Normal 21.0-32.0 [facility] Comment on above: Order Comment: PT SAMIRA Buchanan GETTING A BATH.Call MD with results STAT Performed By: #### L 500.2500 ####[facility] [address] [place], [address] Creatinine [Mass/Vol] 1.25 mg/dL High 0.70-1.20 [facility] Comment on above: Order Comment: PT SAMIRA Buchanan GETTING A BATH.Call MD with results STAT Performed By: #### L 500.2500 ####[facility] [address] [place], [address] ECRCL 29.35 ml/min Low 50-250 [facility] Comment on above: Order Comment: PT SAMIRA Buchanan GETTING A BATH.Call MD with results STAT Performed By: #### L 500.2500 ####[facility] [address] [place], [address] GAP 11 Normal 5-15 [facility] Comment on above: Order Comment: PT SAMIRA S GETTING A BATH.Call MD with results STAT Performed By: #### L 500.2500 ####[facility] [address] [place], [address] GFR/1.73 sq M.predicted among non-blacks MDRD (S/P/Bld) [Vol rate/Area] 50 mL/min/{1.73_m2} Low >60 [facility] Comment on above: Order Comment: PT SAMIRA Buchanan GETTING A BATH.Call MD with results STAT Result Comment: mL/m in/1.73m2 CKD-EPI Creatinine Equation (2020) Performed By: #### L 500.2500 ####[facility] [address] [place], [address] Glucose [Mass/Vol] 106 mg/dL High 70-99 [facility] Comment on above: Order Comment: PT WA S GETTING A BATH.Call MD with results STAT Performed By: #### L 500.2500 ####[facility] [address] [place], [address] Potassium [Moles/Vol] 2.9 mmol/L Low 3.3-5.1 [facility] Comment on above: Order Comment: PT WA S GETTING A BATH.Call MD with results STAT Performed By: #### L 500.2500 ####[facility] [address] [place], [address] Sodium [Moles/Vol] 140 mmol/L Normal 133-145 [facility] Comment on above: Order Comment: PT WA S GETTING A BATH.Call MD with results STAT Performed By: #### L 500.2500 ####[facility] [address] [place], [address] Urea nitrogen [Mass/Vol] 24 mg/dL High 4-19 [facility] Comment on above: Order Comment: PT WA S GETTING A BATH.Call MD with results STAT Performed By: #### L 500.2500 ####[facility] [address] [place], [address] BUN/CRE 21.8 RATIO High 10-20 [facility] Comment on above: Order Comment: Call MD with results STAT Performed By: #### L 500.2500 ####[facility] [address] [place], [address] Calcium [Mass/Vol] 7.5 mg/dL Low 7.6-11.0 [facility] Comment on above: Order Comment: Call MD with results STAT Performed By: #### L 500.2500 ####[facility] [address] [place], [address] Chloride [Moles/Vol] 115 mmol/L High 98-108 [facility] Comment on above: Order Comment: Call MD with results STAT Performed By: #### L 500.2500 ####[facility] [address] [place], [address] CO2 [Moles/Vol] 26.3 mmol/L Normal 21.0-32.0 [facility] Comment on above: Order Comment: Call MD with results STAT Performed By: #### L 500.2500 ####[facility] [address] [place], [address] Creatinine [Mass/Vol] 1.36 mg/dL High 0.70-1.20 [facility] Comment on above: Order Comment: Call MD with results STAT Performed By: #### L 500.2500 ####[facility] [address] [place], [address] ECRCL 25.06 ml/min Low 50-250 [facility] Comment on above: Order Comment: Call MD with results STAT Performed By: #### L 500.2500 ####[facility] [address] [place], [address] GAP 9 Normal 5-15 [facility] Comment on above: Order Comment: Call MD with results STAT Performed By: #### L 500.2500 ####[facility] [address] [place], [address] GFR/1.73 sq M.predicted among non-blacks MDRD (S/P/Bld) [Vol rate/Area] 45 mL/min/{1.73_m2} Low >60 [facility] Comment on above: Order Comment: Call MD with results STAT Result Comment: mL/m in/1.73m2 CKD-EPI Creatinine Equation (2020) Performed By: #### L 500.2500 ####[facility] [address] [place], [address] Glucose [Mass/Vol] 289 mg/dL High 70-99 [facility] Comment on above: Order Comment: Call MD with results STAT Performed By: #### L 500.2500 ####[facility] [address] [place], [address] Potassium [Moles/Vol] 3.0 mmol/L Low 3.3-5.1 [facility] Comment on above: Order Comment: Call MD with results STAT Performed By: #### L 500.2500 ####[facility] [address] [place], [address] Sodium [Moles/Vol] 150 mmol/L High 133-145 [facility] Comment on above: Order Comment: Call MD with results STAT Performed By: #### L 500.2500 ####[facility] [address] [place], [address] Urea nitrogen [Mass/Vol] 30 mg/dL High 4-19 [facility] Comment on above: Order Comment: Call MD with results STAT Performed By: #### L 500.2500 ####[facility] [address] [place], [address] Bedside Glucoseon 07-23-2024 FINGERSTICK GLU 84 mg/dL Normal 74-106 [facility] Comment on above: Result Comment: HERMINIO GEMENT OF PATIENT CARE PER NURSING PROTOCOL Performed By: #### L 501.080 ####[facility] [address] [place], [address] FINGERSTICK GLU 57 mg/dL Low 74-106 [facility] Comment on above: Result Comment: HERMINIO GEMENT OF PATIENT CARE PER NURSING PROTOCOL Performed By: #### L 501.080 ####[facility] [address] [place], [address] FINGERSTICK GLU 118 mg/dL High 74-106 [facility] Comment on above: Result Comment: HERMINIO GEMENT OF PATIENT CARE PER NURSING PROTOCOL Performed By: #### L 501.080 ####[facility] [address] [place], [address] FINGERSTICK GLU 138 mg/dL High 74-106 [facility] Comment on above: Result Comment: HERMINIO GEMENT OF PATIENT CARE PER NURSING PROTOCOL Performed By: #### L 501.080 ####[facility] [address] [place], [address] FINGERSTICK GLU 126 mg/dL High 74-106 [facility] Comment on above: Result Comment: HERMINIO GEMENT OF PATIENT CARE PER NURSING PROTOCOL Performed By: #### L 501.080 ####[facility] [address] [place], [address] FINGERSTICK GLU 106 mg/dL Normal 74-106 [facility] Comment on above: Result Comment: HERMINIO GEMENT OF PATIENT CARE PER NURSING PROTOCOL Performed By: #### L 501.080 ####[facility] [address] [place], [address] FINGERSTICK GLU 179 mg/dL High 74-106 [facility] Comment on above: Result Comment: HERMINIO GEMENT OF PATIENT CARE PER NURSING PROTOCOL Performed By: #### L 501.080 ####[facility] [address] [place], [address] FINGERSTICK GLU 213 mg/dL High 74-106 [facility] Comment on above: Result Comment: HERMINIO GEMENT OF PATIENT CARE PER NURSING PROTOCOL Performed By: #### L 501.080 ####[facility] [address] [place], [address] FINGERSTICK GLU 196 mg/dL High 74-106 [facility] Comment on above: Result Comment: HERMINIO GEMENT OF PATIENT CARE PER NURSING PROTOCOL Performed By: #### L 501.080 ####[facility] [address] [place], [address] FINGERSTICK GLU 223 mg/dL High 74-106 [facility] Comment on above: Result Comment: HERMINIO GEMENT OF PATIENT CARE PER NURSING PROTOCOL Performed By: #### L 501.080 ####[facility] [address] [place], [address] FINGERSTICK GLU 275 mg/dL High 74-106 [facility] Comment on above: Result Comment: HERMINIO GEMENT OF PATIENT CARE PER NURSING PROTOCOL Performed By: #### L 501.080 ####[facility] [address] [place], [address] FINGERSTICK GLU 263 mg/dL High 74-106 [facility] Comment on above: Result Comment: HERMINIO GEMENT OF PATIENT CARE PER NURSING PROTOCOL Performed By: #### L 501.080 ####[facility] [address] [place], [address] Beta-Hydroxbytyrateon 2024 BETA-HYDROXYBUT 0.0 mmol/L Normal 0.0-0.3 [facility] Comment on above: Performed By: #### L 501.6901 ####[facility] [address] [place], [address] Beta-hydroxybutyrateOrdered By: Nick Bocanegra on 07-23-2024 Beta hydroxybutyrate [Mass/Vol] 0.0 mmol/L 0.0-0.3 [facility] Bilirubin, totalOrdered By: Floresita Capellan on 07-23-2024 Bilirubin [Mass/Vol] 0.16 mg/dL 0.00-1.30 [facility] CBC W/Diff, Automatedon Absolute Lymph 1.93 X10 3/uL Normal 0.83-4.51 [facility] Comment on above: Performed By: #### L 500.4050, L100.0100, L501.9520 ####[facility] [address] [place], [address] Absolute Neut 13.7 X10 3/uL High 2.0-7.7 [facility] Comment on above: Performed By: #### L 500.4050, L100.0100, L501.9520 ####[facility] [address] [place], [address] Basophils/100 WBC (Bld) 0.3 % Normal 0-1 [facility] Comment on above: Performed By: #### L 500.4050, L100.0100, L501.9520 ####[facility] [address] [place], [address] Eosinophils/100 WBC (Bld) 0.5 % Normal 0-5 [facility] Comment on above: Performed By: #### L 500.4050, L100.0100, L501.9520 ####[facility] [address] [place], [address] Erythrocyte distribution width (RBC) [Ratio] 14.3 % Normal 11.6-14.6 [facility] Comment on above: Performed By: #### L 500.4050, L100.0100, L501.9520 ####[facility] [address] [place], [address] Hematocrit (Bld) [Volume fraction] 24.1 % Low 37-47 [facility] Comment on above: Performed By: #### L 500.4050, L100.0100, L501.9520 ####[facility] [address] [place], [address] Hemoglobin (Bld) [Mass/Vol] 8.0 g/dL Low 12.0-15.0 [facility] Comment on above: Performed By: #### L 500.4050, L100.0100, L501.9520 ####[facility] [address] [place], [address] IG% 0.700 Normal 0.0-0.9 [facility] Comment on above: Result Comment: IG% - Immature Granulocytes (promyelocytes, myelocytes and metamyelocytes) > 1% indicates that a LEFT SHIFT is Present. Performed By: #### L 500.4050, L100.0100, L501.9520 ####[facility] [address] [place], [address] Lymphocytes/100 WBC (Bld) 11.5 % Low 19-41 [facility] Comment on above: Performed By: #### L 500.4050, L100.0100, L501.9520 ####[facility] [address] [place], [address] MCH (RBC) [Entitic mass] 28.2 pg Normal 27.0-32.0 [facility] Comment on above: Performed By: #### L 500.4050, L100.0100, L501.9520 ####[facility] [address] [place], [address] MCHC (RBC) [Mass/Vol] 33.2 g/dL Normal 32-36 [facility] Comment on above: Performed By: #### L 500.4050, L100.0100, L501.9520 ####[facility] [address] [place], [address] MCV (RBC) [Entitic vol] 84.9 fL Normal 81-99 [facility] Comment on above: Performed By: #### L 500.4050, L100.0100, L501.9520 ####[facility] [address] [place], [address] Monocytes/100 WBC (Bld) 5.1 % Normal 0-10 [facility] Comment on above: Performed By: #### L 500.4050, L100.0100, L501.9520 ####[facility] [address] [place], [address] Neutrophils/100 WBC (Bld) 81.9 % High 47-70 [facility] Comment on above: Performed By: #### L 500.4050, L100.0100, L501.9520 ####[facility] [address] [place], [address] Nucleated RBC (Bld) [#/Vol] 0 10*3/uL Normal 0-5 [facility] Comment on above: Performed By: #### L 500.4050, L100.0100, L501.9520 ####[facility] [address] [place], [address] Platelet mean volume (Bld) [Entitic vol] 10.5 fL Normal 6.2-12.0 [facility] Comment on above: Performed By: #### L 500.4050, L100.0100, L501.9520 ####[facility] [address] [place], [address] Platelets (Bld) [#/Vol] 361 10*3/uL Normal 150-450 [facility] Comment on above: Performed By: #### L 500.4050, L100.0100, L501.9520 ####[facility] [address] [place], [address] RBC (Bld) [#/Vol] 2.84 10*6/uL Low 4.2-5.4 [facility] Comment on above: Performed By: #### L 500.4050, L100.0100, L501.9520 ####[facility] [address] [place], [address] RDW SD 44.4 fl High 35.1-43.9 [facility] Comment on above: Performed By: #### L 500.4050, L100.0100, L501.9520 ####[facility] [address] [place], [address] WBC (Bld) [#/Vol] 16.8 10*3/uL High 4.4-11.0 [facility] Comment on above: Performed By: #### L 500.4050, L100.0100, L501.9520 ####[facility] [address] [place], [address] CDIFF (PCR)on 07-23-2024 CDIFF Is the patient receiving laxatives? N New/unexplained onset of 3 or more stools in past 24 hrs? Y Pending 027 027 NAP1-B1 Presumptive Negative *for epidemiolologic???us e C. Diff PCR Negative- No toxigenic C. Diff Detected Normal [facility] Comment on above: Performed By: #### M 100.0605, M100.6796, M100.637, L400.0001 ####[facility] [address] [place], [address] Clostridium difficile detect ion by polymerase chain reactionOrdered By: Nani Coleman on 07-23-2024 C. difficile DNA ELADIO+probe Ql (Unsp spec) [facility] Comprehensive Metabolic Prof ilon 07-23-2024 Albumin [Mass/Vol] 2.6 g/dL Low 3.5-5.0 [facility] Comment on above: Order Comment: Call MD with results STAT Performed By: #### L 500.4050, L100.0100, L501.9520 ####[facility] [address] [place], [address] Albumin/Globulin [Mass ratio] 0.9 {ratio} Normal 0.9-2.4 [facility] Comment on above: Order Comment: Call MD with results STAT Performed By: #### L 500.4050, L100.0100, L501.9520 ####[facility] [address] [place], [address] ALK PHOS 79 U/L Normal 35-104 [facility] Comment on above: Order Comment: Call MD with results STAT Performed By: #### L 500.4050, L100.0100, L501.9520 ####[facility] [address] [place], [address] ALT [Catalytic activity/Vol] 7 U/L Normal <=34 [facility] Comment on above: Order Comment: Call MD with results STAT Performed By: #### L 500.4050, L100.0100, L501.9520 ####[facility] [address] [place], [address] AST [Catalytic activity/Vol] 43 U/L High <=31 [facility] Comment on above: Order Comment: Call MD with results STAT Performed By: #### L 500.4050, L100.0100, L501.9520 ####[facility] [address] [place], [address] Bilirubin [Mass/Vol] 0.16 mg/dL Normal 0.00-1.30 [facility] Comment on above: Order Comment: Call MD with results STAT Performed By: #### L 500.4050, L100.0100, L501.9520 ####[facility] [address] [place], [address] BUN/CRE 21.2 RATIO High 10-20 [facility] Comment on above: Order Comment: Call MD with results STAT Performed By: #### L 500.4050, L100.0100, L501.9520 ####[facility] [address] [place], [address] Calcium [Mass/Vol] 7.8 mg/dL Normal 7.6-11.0 [facility] Comment on above: Order Comment: Call MD with results STAT Performed By: #### L 500.4050, L100.0100, L501.9520 ####[facility] [address] [place], [address] Chloride [Moles/Vol] 116 mmol/L High 98-108 [facility] Comment on above: Order Comment: Call MD with results STAT Performed By: #### L 500.4050, L100.0100, L501.9520 ####[facility] [address] [place], [address] CO2 [Moles/Vol] 24.4 mmol/L Normal 21.0-32.0 [facility] Comment on above: Order Comment: Call MD with results STAT Performed By: #### L 500.4050, L100.0100, L501.9520 ####[facility] [address] [place], [address] Creatinine [Mass/Vol] 1.30 mg/dL High 0.70-1.20 [facility] Comment on above: Order Comment: Call MD with results STAT Performed By: #### L 500.4050, L100.0100, L501.9520 ####[facility] [address] [place], [address] ECRCL 28.22 ml/min Low 50-250 [facility] Comment on above: Order Comment: Call MD with results STAT Performed By: #### L 500.4050, L100.0100, L501.9520 ####[facility] [address] [place], [address] GAP 12 Normal 5-15 [facility] Comment on above: Order Comment: Call MD with results STAT Performed By: #### L 500.4050, L100.0100, L501.9520 ####[facility] [address] [place], [address] GFR/1.73 sq M.predicted among non-blacks MDRD (S/P/Bld) [Vol rate/Area] 48 mL/min/{1.73_m2} Low >60 [facility] Comment on above: Order Comment: Call MD with results STAT Result Comment: mL/m in/1.73m2 CKD-EPI Creatinine Equation (2020) Performed By: #### L 500.4050, L100.0100, L501.9520 ####[facility] [address] [place], [address] Globulin (S) [Mass/Vol] 3.0 g/dL Normal 2.2-4.2 [facility] Comment on above: Order Comment: Call MD with results STAT Performed By: #### L 500.4050, L100.0100, L501.9520 ####[facility] [address] [place], [address] Glucose [Mass/Vol] 106 mg/dL High 70-99 [facility] Comment on above: Order Comment: Call MD with results STAT Performed By: #### L 500.4050, L100.0100, L501.9520 ####[facility] [address] [place], [address] Potassium [Moles/Vol] 2.8 mmol/L Low 3.3-5.1 [facility] Comment on above: Order Comment: Call MD with results STAT Performed By: #### L 500.4050, L100.0100, L501.9520 ####[facility] [address] [place], [address] Sodium [Moles/Vol] 152 mmol/L High 133-145 [facility] Comment on above: Order Comment: Call MD with results STAT Performed By: #### L 500.4050, L100.0100, L501.9520 ####[facility] [address] [place], [address] T PROT 5.6 g/dL Low 5.9-8.4 [facility] Comment on above: Order Comment: Call MD with results STAT Performed By: #### L 500.4050, L100.0100, L501.9520 ####[facility] [address] [place], [address] Urea nitrogen [Mass/Vol] 28 mg/dL High 4-19 [facility] Comment on above: Order Comment: Call with results STAT Performed By: #### L 500.4050, L100.0100, L501.9520 ####[facility] [address] [place], [address] ENTERIC PATHOGEN PANEL STOOL on 07-23-2024 EP PANEL Is the patient receiving laxatives? N New/unexplained onset of 3 or more stools in past 24 hrs? Y Normal Reference Range = Not Detected Nucleic acid amplification test method Not detected for Campylobacter group, Salmonella species, Shigella species, Vibrio Group, Yersinia enterocolitica, EHEC (Shiga Toxin 1, Shiga Toxin 2), Norovirus Gl/Gll, and Rotavirus A. Other common stool pathogens are not detected on this panel include: Aeromonas/Plesiomona s or parasites. Order testing for these organisms separately if suspected. This is an amplified DNA test which makes it both specific and sensitive. CAMPYLOBACTER Not Detected Norovirus Not Detected Rotavirus Not Detected Salmonella Not Detected Shiga Toxin Not Detected Shigella sp. Not Detected VIBRIO Not Detected Yersinia Not Detected Normal [facility] Comment on above: Performed By: #### M 100.0605, M100.6796, M100.637, L400.0001 ####[facility] [address] [place], [place], [address] Laboratory - Chemistry and C hemistry - challengeOrdered By: Floresita Capellan on 07-23-2024 AST [Catalytic activity/Vol] 43 U/L High <32 [facility] Serum globulin measurementOr dered By: Floresita Capellan on 07-23-2024 Globulin (S) [Mass/Vol] 3.0 g/dL 2.2-4.2 [facility] Serum or plasma alanine doom otransferase (ALT) measurementOrdered By: Floresita Capellan on 07-23-2024 ALT [Catalytic activity/Vol] 7 U/L <35 [facility] Serum or plasma albumin jacobo urement (mass/volume)Ordered By: Floresita Capellan on 05-08-2025 Albumin [Mass/Vol] 2.6 g/dL Low 3.5-5.0 [facility] Serum or plasma albumin/glob ulin mass ratioOrdered By: Floresita Capellan on 07-23-2024 Albumin/Globulin [Mass ratio] 0.9 {ratio} 0.9-2.4 [facility] Serum or plasma alkaline garland sphatase measurementOrdered By: Floresita Capellan on 07-23-2024 ALP [Catalytic activity/Vol] 79 U/L 35-104 [facility] Stool Lactoferrin/WBCon WBCST Is the patient receiving laxatives? N New/unexplained onset of 3 or more stools in past 24 hrs? Y Normal Reference Range = Negative Fecal WBC Lactoferrin A Positive: Fecal WBC Lactoferrin present A Normal [facility] Comment on above: Performed By: #### M 100.0605, M100.6796, M100.637, L400.0001 ####[facility] [address] [place], [place], [id number] Stool lactoferrin detection by immunoassayOrdered By: Nani Coleman on 07-23-2024 Lactoferrin IA Ql (Stl) [facility] TSH DL <= 0.005 mIU/L QnOrde red By: Floresita Capellan on 07-23-2024 TSH Qn 1.070 uIU/mL 0.300-4.200 [facility] Thyroid Stim Hormone (TSH)on 07-23-2024 TSH 1.070 uIU/mL Normal 0.300-4.200 [facility] Comment on above: Performed By: #### L 500.4050, L100.0100, L501.9520 ####[facility] [address] [place], [address] Total proteinOrdered By: Ilana Capellan on 07-23-2024 Protein [Mass/Vol] 5.6 g/dL Low 5.9-8.4 [facility] 12 Lead EKGon 07-22-2024 12 Lead EKG [facility] [address] [place] [address] 12 Lead EKG 07/22/24 0732 MR#: [id number] Acct: [id number] Name: SANJUANITA JERRY Rep #: [id number] : 1965 59 From: Faisal Montesinos MD Attending Dr: Dr. Floresita Capellan DO Status: ADM I N Ordering Dr: Nani Coleman DO Date: 07/22/24 Location: MS3 Sex: F C Admitted: 07/22/24 Test Reason : NEURO Blood Pressure : */* mmHG Vent. Rate : 85 BPM Atrial Rate : 85 BPM P-R Int : 140 ms QRS Dur : 82 ms QT Int : 328 ms P-R-T Axes : 73 52 -48 degrees QTcB Int : 390 ms Normal sinus rhythm ST T wave abnormality, consider inferior ischemia ST T wave abnormality, consider anterolateral ischemia Abnormal ECG Confirmed by Faisal Montesinos ([id number]), social worker psychiatric JUAN GUZMAN ([id number]) on 07/24/2024 12:21:55 PM Referred By: Confirmed By: Faisal Montesinos 07/24/24 1221 Date Faisal Montesinos MD CC: Dr. Art Herman MD; Dr. Nani Coleman DO; Dr. Floresita Capellan DO Signed Normal [facility] Absolute lymphocyte countOrd ered By: Nani Coleman on 07-22-2024 Lymphocytes Auto (Unsp spec) [#/Vol] 2.13 10*3/uL 0.83-4.51 [facility] Absolute neutrophil countOrd ered By: Nani Coleman on 07-22-2024 Neutrophils (Bld) [#/Vol] 19.3 10*3/uL High 2.0-7.7 [facility] Anion gap in Serum or Plasma Ordered By: Nani Coleman on 07-22-2024 Anion gap [Moles/Vol] 21 mmol/L High 5-15 [facility] Automated lymphocyte count a s percentage of total leukocytesOrdered By: Nani Coleman on 07-22-2024 Lymphocytes/100 WBC Auto (Unsp spec) 9.5 % Low 19-41 [facility] BUN/creatinine ratioOrdered By: Nani Coleman on 07-22-2024 Urea nitrogen/Creatinine [Mass ratio] 23.4 mg/mg High 10-20 [facility] Basic Metabolic Profile (BMP )on 07-22-2024 BUN/CRE 23.6 RATIO High 10-20 [facility] Comment on above: Order Comment: Call MD with results STAT Performed By: #### L 500.2500, L501.2300, L501.5200 ####[facility] [address] [place], [address] Calcium [Mass/Vol] 7.6 mg/dL Normal 7.6-11.0 [facility] Comment on above: Order Comment: Call MD with results STAT Performed By: #### L 500.2500, L501.2300, L501.5200 ####[facility] [address] [place], [address] Chloride [Moles/Vol] 114 mmol/L High 98-108 [facility] Comment on above: Order Comment: Call MD with results STAT Performed By: #### L 500.2500, L501.2300, L501.5200 ####[facility] [address] [place], [address] CO2 [Moles/Vol] 27.5 mmol/L Normal 21.0-32.0 [facility] Comment on above: Order Comment: Call MD with results STAT Performed By: #### L 500.2500, L501.2300, L501.5200 ####[facility] [address] [place], [address] Creatinine [Mass/Vol] 1.39 mg/dL High 0.70-1.20 [facility] Comment on above: Order Comment: Call MD with results STAT Performed By: #### L 500.2500, L501.2300, L501.5200 ####[facility] [address] [place], [address] ECRCL 24.51 ml/min Low 50-250 [facility] Comment on above: Order Comment: Call MD with results STAT Performed By: #### L 500.2500, L501.2300, L501.5200 ####[facility] [address] [place], [address] GAP 9 Normal 5-15 [facility] Comment on above: Order Comment: Call MD with results STAT Performed By: #### L 500.2500, L501.2300, L501.5200 ####[facility] [address] [place], [address] GFR/1.73 sq M.predicted among non-blacks MDRD (S/P/Bld) [Vol rate/Area] 44 mL/min/{1.73_m2} Low >60 [facility] Comment on above: Order Comment: Call MD with results STAT Result Comment: mL/m in/1.73m2 CKD-EPI Creatinine Equation (2020) Performed By: #### L 500.2500, L501.2300, L501.5200 ####[facility] [address] [place], [address] Glucose [Mass/Vol] 260 mg/dL High 70-99 [facility] Comment on above: Order Comment: Call MD with results STAT Performed By: #### L 500.2500, L501.2300, L501.5200 ####[facility] [address] [place], [address] Potassium [Moles/Vol] 3.3 mmol/L Normal 3.3-5.1 [facility] Comment on above: Order Comment: Call MD with results STAT Performed By: #### L 500.2500, L501.2300, L501.5200 ####[facility] [address] [place], [address] Sodium [Moles/Vol] 151 mmol/L High 133-145 [facility] Comment on above: Order Comment: Call MD with results STAT Performed By: #### L 500.2500, L501.2300, L501.5200 ####[facility] [address] [place], [address] Urea nitrogen [Mass/Vol] 33 mg/dL High 4-19 [facility] Comment on above: Order Comment: Call MD with results STAT Performed By: #### L 500.2500, L501.2300, L501.5200 ####[facility] [address] [place], [address] BUN/CRE 24.8 RATIO High 10-20 [facility] Comment on above: Order Comment: Call MD with results STAT Performed By: #### L 501.5200, L500.2500, L501.2300 ####[facility] [address] [place], [address] Calcium [Mass/Vol] 7.8 mg/dL Normal 7.6-11.0 [facility] Comment on above: Order Comment: Call MD with results STAT Performed By: #### L 501.5200, L500.2500, L501.2300 ####[facility] [address] [place], [address] Chloride [Moles/Vol] 109 mmol/L High 98-108 [facility] Comment on above: Order Comment: Call MD with results STAT Performed By: #### L 501.5200, L500.2500, L501.2300 ####[facility] [address] [place], [address] CO2 [Moles/Vol] 28.0 mmol/L Normal 21.0-32.0 [facility] Comment on above: Order Comment: Call MD with results STAT Performed By: #### L 501.5200, L500.2500, L501.2300 ####[facility] [address] [place], [address] Creatinine [Mass/Vol] 1.47 mg/dL High 0.70-1.20 [facility] Comment on above: Order Comment: Call MD with results STAT Performed By: #### L 501.5200, L500.2500, L501.2300 ####[facility] [address] [place], [address] ECRCL 23.18 ml/min Low 50-250 [facility] Comment on above: Order Comment: Call MD with results STAT Performed By: #### L 501.5200, L500.2500, L501.2300 ####[facility] [address] [place], [address] GAP 10 Normal 5-15 [facility] Comment on above: Order Comment: Call MD with results STAT Performed By: #### L 501.5200, L500.2500, L501.2300 ####[facility] [address] [place], [address] GFR/1.73 sq M.predicted among non-blacks MDRD (S/P/Bld) [Vol rate/Area] 41 mL/min/{1.73_m2} Low >60 [facility] Comment on above: Order Comment: Call MD with results STAT Result Comment: mL/m in/1.73m2 CKD-EPI Creatinine Equation (2020) Performed By: #### L 501.5200, L500.2500, L501.2300 ####[facility] [address] [place], [address] Glucose [Mass/Vol] 475 mg/dL Invalid Interpretation Code 70-99 [facility] Comment on above: Order Comment: Call MD with results STAT Result Comment: Crit ical Result(s) Called at: 1914 by: MILLIE OLIVARES TO PRINCESS NAJERA??Results read back by same. Performed By: #### L 501.5200, L500.2500, L501.2300 ####[facility] [address] [place], [address] Potassium [Moles/Vol] 2.8 mmol/L Low 3.3-5.1 [facility] Comment on above: Order Comment: Call MD with results STAT Performed By: #### L 501.5200, L500.2500, L501.2300 ####[facility] [address] [place], [address] Sodium [Moles/Vol] 147 mmol/L High 133-145 [facility] Comment on above: Order Comment: Call MD with results STAT Performed By: #### L 501.5200, L500.2500, L501.2300 ####[facility] [address] [place], [address] Urea nitrogen [Mass/Vol] 36 mg/dL High 4-19 [facility] Comment on above: Order Comment: Call MD with results STAT Performed By: #### L 501.5200, L500.2500, L501.2300 ####[facility] [address] [place], [address] BUN/CRE 25.5 RATIO High 10-20 [facility] Comment on above: Order Comment: Call MD with results STAT Performed By: #### L 500.2500, L501.2300, L501.5200 ####[facility] [address] [place], [address] Calcium [Mass/Vol] 8.2 mg/dL Normal 7.6-11.0 [facility] Comment on above: Order Comment: Call MD with results STAT Performed By: #### L 500.2500, L501.2300, L501.5200 ####[facility] [address] [place], [address] Chloride [Moles/Vol] 104 mmol/L Normal 98-108 [facility] Comment on above: Order Comment: Call MD with results STAT Performed By: #### L 500.2500, L501.2300, L501.5200 ####[facility] [address] [place], [address] CO2 [Moles/Vol] 28.8 mmol/L Normal 21.0-32.0 [facility] Comment on above: Order Comment: Call MD with results STAT Performed By: #### L 500.2500, L501.2300, L501.5200 ####[facility] [address] [place], [address] Creatinine [Mass/Vol] 1.61 mg/dL High 0.70-1.20 [facility] Comment on above: Order Comment: Call MD with results STAT Performed By: #### L 500.2500, L501.2300, L501.5200 ####[facility] [address] [place], [address] ECRCL 21.16 ml/min Low 50-250 [facility] Comment on above: Order Comment: Call MD with results STAT Performed By: #### L 500.2500, L501.2300, L501.5200 ####[facility] [address] [place], [address] GAP 10 Normal 5-15 [facility] Comment on above: Order Comment: Call MD with results STAT Performed By: #### L 500.2500, L501.2300, L501.5200 ####[facility] [address] [place], [address] GFR/1.73 sq M.predicted among non-blacks MDRD (S/P/Bld) [Vol rate/Area] 37 mL/min/{1.73_m2} Low >60 [facility] Comment on above: Order Comment: Call MD with results STAT Result Comment: mL/m in/1.73m2 CKD-EPI Creatinine Equation (2020) Performed By: #### L 500.2500, L501.2300, L501.5200 ####[facility] [address] [place], [address] Glucose [Mass/Vol] 629 mg/dL Invalid Interpretation Code 70-99 [facility] Comment on above: Order Comment: Call MD with results STAT Result Comment: Crit ical Result(s) Called at: 07/22/2024-: by: Ad Friedman to Diego Alfonso??Results read back by same. Performed By: #### L 500.2500, L501.2300, L501.5200 ####[facility] [address] [place], [address] Potassium [Moles/Vol] 2.8 mmol/L Low 3.3-5.1 [facility] Comment on above: Order Comment: Call MD with results STAT Performed By: #### L 500.2500, L501.2300, L501.5200 ####[facility] [address] [place], [address] Sodium [Moles/Vol] 143 mmol/L Normal 133-145 [facility] Comment on above: Order Comment: Call MD with results STAT Performed By: #### L 500.2500, L501.2300, L501.5200 ####[facility] [address] [place], [address] Urea nitrogen [Mass/Vol] 41 mg/dL High 4-19 [facility] Comment on above: Order Comment: Call MD with results STAT Performed By: #### L 500.2500, L501.2300, L501.5200 ####[facility] [address] [place], [address] BUN Normal 4-19 [facility] Comment on above: Order Comment: Call MD with results STAT Result Comment: MORE RECENT SPECIMEN WITH SAME TESTS ALREADY RESULTED. Performed By: #### L 501.9985, L500.2500 ####[facility] [address] [place], [address] BUN/CRE Normal 10-20 [facility] Comment on above: Order Comment: Call MD with results STAT Result Comment: MORE RECENT SPECIMEN WITH SAME TESTS ALREADY RESULTED. Performed By: #### L 501.9985, L500.2500 ####[facility] [address] [place], [address] Calcium Normal 7.6-11.0 [facility] Comment on above: Order Comment: Call MD with results STAT Result Comment: MORE RECENT SPECIMEN WITH SAME TESTS ALREADY RESULTED. Performed By: #### L 501.9985, L500.2500 ####[facility] [address] [place], [address] CL Normal 98-108 [facility] Comment on above: Order Comment: Call MD with results STAT Result Comment: MORE RECENT SPECIMEN WITH SAME TESTS ALREADY RESULTED. Performed By: #### L 501.9985, L500.2500 ####[facility] [address] [place], [address] CO2 Normal 21.0-32.0 [facility] Comment on above: Order Comment: Call MD with results STAT Result Comment: MORE RECENT SPECIMEN WITH SAME TESTS ALREADY RESULTED. Performed By: #### L 501.9985, L500.2500 ####[facility] [address] [place], [address] CREAT,SERUM Normal 0.70-1.20 [facility] Comment on above: Order Comment: Call MD with results STAT Result Comment: MORE RECENT SPECIMEN WITH SAME TESTS ALREADY RESULTED. Performed By: #### L 501.9985, L500.2500 ####[facility] [address] [place], [address] eGFR Normal >60 [facility] Healthcare Comment on above: Order Comment: Call MD with results STAT Result Comment: MORE RECENT SPECIMEN WITH SAME TESTS ALREADY RESULTED. Performed By: #### L 501.9985, L500.2500 ####[facility] [address] [place], [address] GAP Normal 5-15 [facility] Comment on above: Order Comment: Call MD with results STAT Result Comment: MORE RECENT SPECIMEN WITH SAME TESTS ALREADY RESULTED. Performed By: #### L 501.9985, L500.2500 ####[facility] [address] [place], [address] GLU Normal 70-99 [facility] Comment on above: Order Comment: Call MD with results STAT Result Comment: MORE RECENT SPECIMEN WITH SAME TESTS ALREADY RESULTED. Performed By: #### L 501.9985, L500.2500 ####[facility] [address] [place], [address] Potassium Normal 3.3-5.1 [facility] Comment on above: Order Comment: Call MD with results STAT Result Comment: MORE RECENT SPECIMEN WITH SAME TESTS ALREADY RESULTED. Performed By: #### L 501.9985, L500.2500 ####[facility] [address] [place], [address] Basic Metabolic Profile (BMP) Normal 133-145 [facility] Comment on above: Order Comment: Call MD with results STAT Result Comment: MORE RECENT SPECIMEN WITH SAME TESTS ALREADY RESULTED. Performed By: #### L 501.9985, L500.2500 ####[facility] [address] [place], [address] Basophil percentageOrdered B y: Nani Coleman on 07-22-2024 Basophils/100 WBC (Bld) 0.2 % 0-1 [facility] Bedside Glucoseon 07-22-2024 [place] GLU 239 mg/dL High 74-106 [facility] Comment on above: Result Comment: HERMINIO GEMENT OF PATIENT CARE PER NURSING PROTOCOL Performed By: #### L 501.080 ####[facility] [address] [place], [address] [place] GLU 212 mg/dL High 74-106 [facility] Comment on above: Result Comment: HERMINIO GEMENT OF PATIENT CARE PER NURSING PROTOCOL Performed By: #### L 501.080 ####[facility] [address] [place], [address] [place] GLU 293 mg/dL High 74-[address] [place] [address] Comment on above: Result Comment: HERMINIO GEMENT OF PATIENT CARE PER NURSING PROTOCOL Performed By: #### L 501.080 ####[facility] [address] [place], [address] [place] GLU 303 mg/dL High [address] [place] [address] Comment on above: Result Comment: HERMINIO GEMENT OF PATIENT CARE PER NURSING PROTOCOL Performed By: #### L 501.080 ####[facility] [address] [place], [address] [place] GLU 423 mg/dL High [address] [place] [address] Comment on above: Result Comment: HERMINIO GEMENT OF PATIENT CARE PER NURSING PROTOCOL Performed By: #### L 501.080 ####[facility] [address] [place], [address] [place] GLU 406 mg/dL High [address] [place] [address] Comment on above: Result Comment: HERMINIO GEMENT OF PATIENT CARE PER NURSING PROTOCOL Performed By: #### L 501.080 ####[facility] [address] [place], [address] [place] GLU 481 mg/dL Invalid Interpretation Code [address] [place] [address] Comment on above: Result Comment: Dr Micky sidhu Followed MANAGEMENT OF PATIENT CARE PER NURSING PROTOCOL Performed By: #### L 501.080 ####[facility] [address] [place], [address] [place] GLU 475 mg/dL Invalid Interpretation Code [address] [place] [address] Comment on above: Result Comment: HERMINIO GEMENT OF PATIENT CARE PER NURSING PROTOCOL Performed By: #### L 501.080 ####[facility] [address] [place], [address] [place] GLU > 500 Invalid Interpretation Code [address] [place] [address] Comment on above: Result Comment: Dr Micky sidhu Followed MANAGEMENT OF PATIENT CARE PER NURSING PROTOCOL Performed By: #### L 501.080 ####[facility] [address] [place], [address] [place]ICK GLU > 500 Invalid Interpretation Code 74-106 [facility] Comment on above: Result Comment: Dr Micky sidhu Followed MANAGEMENT OF PATIENT CARE PER NURSING PROTOCOL Performed By: #### L 501.080 ####[facility] [address] [place], [address] [place]ICK GLU > 500 Invalid Interpretation Code 74-106 [facility] Comment on above: Result Comment: Dr iMcky sidhu Followed MANAGEMENT OF PATIENT CARE PER NURSING PROTOCOL Performed By: #### L 501.080 ####[facility] [address] [place], [address] Beta-Hydroxbytyrateon 2024 BETA-HYDROXYBUT 0.4 mmol/L Normal 0.0-0.3 [facility] Comment on above: Performed By: #### L 501.6901 ####[facility] [address] [place], [address] Beta-hydroxybutyrateOrdered By: Nani Coleman on 07-22-2024 Beta hydroxybutyrate [Mass/Vol] 0.4 mmol/L 0.0-0.3 [facility] Bilirubin Test strip Ql (U)O rdered By: Nani Coleman on 07-22-2024 Bilirubin Ql (U) Negative Negative [facility] Bilirubin, totalOrdered By: Nani Coleman on 07-22-2024 Bilirubin [Mass/Vol] 0.29 mg/dL 0.00-1.30 [facility] Brain/Head without Contrasto n 07-22-2024 Brain/Head without Contrast [facility] Imaging Services [address] [place] [address] Brain/Head without Contrast MR#: [id number] Acct: [id number] Name: SANJUANITA JERRY Rep #: [id number] : 1965 F 59 From: Marshal Velez MD PCP: Dr. Art Herman MD Status: REG ER Study: Brain/Head without Contrast Date of Exam: 10/09 Exam# [id number] Ordering Dr: Nani Coleman DO PROCEDURE: BRAIN/HEAD WITHOUT CONTRAST 07/22/2024 REASON FOR EXAM: TIA SYMPTOMS, RIGHT HAND PARESTHESIAS (TRANSIENT) TECHNIQUE: Head CT without intravenous contrast. Coronal and Sagittal reconstruction series were provided. One or more dose reduction techniques were used (e.g., Automated exposure control, adjustment of the mA and/or kV according to patient size, use of iterative reconstruction technique. RADIATION DOSE SUMMARY: CTDlvol: 44.99 mGy DLP: 745.49 mGycm COMPARISON: None available FINDINGS: No intracranial hemorrhage, mass effect or CT evidence of large vascular territory acute infarct. The ventricles are within limits and midline. Mild volume loss, atrophy. The visualized paranasal sinuses, mastoids and orbits appear within limits. CT/Brain/Head without Contrast IMPRESSION: No intracranial hemorrhage, mass effect or CT evidence of large vascular territory acute infarct. Reading Location: [facility] CC: Dr. Art Herman MD; Dr. Nani Coleman DO Health Care Social Worker: Signed Normal [facility] CBC W/Diff, Automatedon Absolute Lymph 2.13 X10 3/uL Normal 0.83-4.51 [facility] Comment on above: Performed By: #### L 100.0100, L501.5200, L500.4050 ####[facility] [address] [place], [address] Absolute Neut 19.3 X10 3/uL High 2.0-7.7 [facility] Comment on above: Performed By: #### L 100.0100, L501.5200, L500.4050 ####[facility] [address] [place], [address] Basophils/100 WBC (Bld) 0.2 % Normal 0-1 [facility] Comment on above: Performed By: #### L 100.0100, L501.5200, L500.4050 ####[facility] [address] [place], [address] Eosinophils/100 WBC (Bld) 0.0 % Normal 0-5 [facility] Comment on above: Performed By: #### L 100.0100, L501.5200, L500.4050 ####[facility] [address] [place], [address] Erythrocyte distribution width (RBC) [Ratio] 14.6 % Normal 11.6-14.6 [facility] Comment on above: Performed By: #### L 100.0100, L501.5200, L500.4050 ####[facility] [address] [place], [address] Hematocrit (Bld) [Volume fraction] 35.3 % Low 37-47 [facility] Comment on above: Performed By: #### L 100.0100, L501.5200, L500.4050 ####[facility] [address] [place], [address] Hemoglobin (Bld) [Mass/Vol] 11.1 g/dL Low 12.0-15.0 [facility] Comment on above: Performed By: #### L 100.0100, L501.5200, L500.4050 ####[facility] [address] [place], [address] IG% 0.600 Normal 0.0-0.9 [facility] Comment on above: Result Comment: IG% - Immature Granulocytes (promyelocytes, myelocytes and metamyelocytes) > 1% indicates that a LEFT SHIFT is Present. Performed By: #### L 100.0100, L501.5200, L500.4050 ####[facility] [address] [place], [address] Lymphocytes/100 WBC (Bld) 9.5 % Low 19-41 [facility] Comment on above: Performed By: #### L 100.0100, L501.5200, L500.4050 ####[facility] [address] [place], [address] MCH (RBC) [Entitic mass] 28.0 pg Normal 27.0-32.0 [facility] Comment on above: Performed By: #### L 100.0100, L501.5200, L500.4050 ####[facility] [address] [place], [address] MCHC (RBC) [Mass/Vol] 31.4 g/dL Low 32-36 [facility] Comment on above: Performed By: #### L 100.0100, L501.5200, L500.4050 ####[facility] [address] [place], [address] MCV (RBC) [Entitic vol] 89.1 fL Normal 81-99 [facility] Comment on above: Performed By: #### L 100.0100, L501.5200, L500.4050 ####[facility] [address] [place], [address] Monocytes/100 WBC (Bld) 3.8 % Normal 0-10 [facility] Comment on above: Performed By: #### L 100.0100, L501.5200, L500.4050 ####[facility] [address] [place], [address] Neutrophils/100 WBC (Bld) 85.9 % High 47-70 [facility] Comment on above: Performed By: #### L 100.0100, L501.5200, L500.4050 ####[facility] [address] [place], [address] Nucleated RBC (Bld) [#/Vol] 0 10*3/uL Normal 0-5 [facility] Comment on above: Performed By: #### L 100.0100, L501.5200, L500.4050 ####[facility] [address] [place], [address] Platelet mean volume (Bld) [Entitic vol] 11.3 fL Normal 6.2-12.0 [facility] Comment on above: Performed By: #### L 100.0100, L501.5200, L500.4050 ####[facility] [address] [place], [address] Platelets (Bld) [#/Vol] 526 10*3/uL High 150-450 [facility] Comment on above: Performed By: #### L 100.0100, L501.5200, L500.4050 ####[facility] [address] [place], [address] RBC (Bld) [#/Vol] 3.96 10*6/uL Low 4.2-5.4 [facility] Comment on above: Performed By: #### L 100.0100, L501.5200, L500.4050 ####[facility] [address] [place], [address] RDW SD 47.3 fl High 35.1-43.9 [facility] Comment on above: Performed By: #### L 100.0100, L501.5200, L500.4050 ####[facility] [address] [place], [address] WBC (Bld) [#/Vol] 22.5 10*3/uL High 4.4-11.0 [facility] Comment on above: Performed By: #### L 100.0100, L501.5200, L500.4050 ####[facility] [address] [place], [address] CO2 (BldV) [Moles/Vol]Ordere d By: Nani Coleman on 07-22-2024 CO2 [Moles/Vol] 8 mmol/L Low 23-33 [facility] Carbon dioxide, total [Moles /volume] in Central venous bloodOrdered By: Nani Coleman on 07-22-2024 CO2 [Moles/Vol] 30.7 mmol/L 21.0-32.0 [facility] Chest 1 View (Portable)on Chest 1 View (Portable) [facility] Imaging Services [address] [place] [address] Chest 1 View (Portable) MR#: [id number] Acct: [id number] Name: SANJUANITA JERRY Rep #: [id number] : 1965 F 59 From: Marshal Velez MD PCP: Dr. Art Herman MD Status: REG ER Study: Chest 1 View (Portable) Date of Exam: 07/22/24 Exam# [id number] Ordering Dr: Nani Coleman DO PROCEDURE: CHEST 1 VIEW (PORTABLE) 07/22/2024 REASON FOR EXAM: WEAKNESS TECHNIQUE: Frontal view of the chest. COMPARISON: None available FINDINGS: The lungs appear clear. The cardiac and mediastinal contours appear within limits. Pulmonary vascularity appears within limits. No pleural effusion seen. Visualized osseous structures appear within limits. RAD/Chest 1 View (Portable) IMPRESSION: No evidence of acute disease. Reading Location: [facility] CC: Dr. Art Herman MD; Dr. Nani Coleman DO Health Care Social Worker: Signed Normal [facility] Chloride assayOrdered By: Juan Miguel Coleman on 07-22-2024 Chloride [Moles/Vol] 82 mmol/L Low 98-108 [facility] Comprehensive Metabolic Prof ilon 07-22-2024 AST [Catalytic activity/Vol] 77 U/L High <=31 [facility] Comment on above: Performed By: #### L 100.0100, L501.5200, L500.4050 ####[facility] [address] [place], [address] Emergency Department Summary on 07-22-2024 Emergency Department Summary [facility] Medical Records Department [address] [place] [address] Emergency Department Summary 07/22/24 MR#: [id number] Acct: [id number] Name: SANJUANITA JERRY Rep #: [id number] : 1965 59 From: Nani Coleman DO PCP: Dr. Art Herman MD Status:ADM IN Location: ICU [id number] HPI History of Present Illness Chief Complaint: Neuro S/Sx Informant: patient and EMS Narrative Narrative: Patient is a 59-year-old female with history of diabetes mellitus, hypertension, osteoporosis and history of necrotizing fasciitis status post right BKA presenting for generalized weakness and concern for stroke. Patient was concern for stroke because last night around 1:30 PM she had some intermittent paresthesias of her right fingers/hand. That is currently resolved. Her daughter notes that her voice/speech was different. At that time her daughter was at work and patient states that she would call her back in the morning and check on her. This morning was still noted to have change in her speech and EMS was called. Patient notes that she has been having intermittent diarrhea and nausea for the past 3 weeks. Denies any associated pain with this. Has been feeling generally weak. Notes over the past 5 days or so she stopped taking her insulin because of the diarrhea and illness. Denies any fever or chills. Denies any urinary symptoms. States she feels very thirsty. No falls reported. Is not on any blood thinners. Is from home. [facility] Medical History (Updated 07/22/24 @ 10:[address] Nani Coleman DO) Anemia Smoker Cellulitis and abscess of right lower extremity Type 2 diabetes mellitus with hyperglycemia, without long-term current use of insulin Sinus tachycardia seen on traffic monitor specialist Below knee amputation Dysphagia Acid reflux Diabetes Home Medications ???Medication ???Instructions ???Recorded ???Last Taken ???Type albuterol sulfate 90 mcg/actuation 2 puff inhalation Q4H PRN Sob / Or 10/01/18 Unknown History aerosol inhaler Wheezing dapagliflozin propanediol 10 mg 10 mg PO DAILY blood sugars 02/25/23 History tablet (Farxiga) atorvastatin 40 mg tablet 40 mg PO QHS cholesterol 02/26/23 02/25/23 History cholecalciferol (vitamin D3) 25 25 mcg PO DAILY supplement 3 02/25/23 History mcg (1,000 unit) tablet ferrous sulfate 325 mg (65 mg 325 mg PO DAILY supplement 3 02/25/23 History iron) tablet (FeroSul) lisinopril 5 mg tablet 5 mg PO DAILY blood pressure 02/2602/25/23 History blood-glucose meter (True Metrix #1 ea 08/19/23 Unknown Rx Glucose Meter) True Metrix Glucose Test Strip #50 ea 06/30/24 Unknown Rx (blood sugar diagnostic) glipizide 5 mg tablet 5 mg PO BID #60 tabs 06/30/24 Unkn own Rx Allergy/AdvReac Type Severity Reaction Status Date / Time No Known Allergies Allergy Verified 05/27/24 10:09 Family History Grandmother Breast cancer Father Heart disease Hypertension Sister Thyroid disorder Aunt Thyroid disorder Other Arthritis CVA (cerebral vascular accident) Kidney disease Myocardial infarction Surgical History History of appendectomy Status post below knee amputation of right lower extremity history EGD with dilatation S/P appendectomy H/O thumb surgery Social History household members: family Smoking Status: Heavy Smoker (>10/day) alcohol intake: never substance use type: does not use what type of physical activity do you participate in: walking ROS ROS ED Constitutional Constitutional ED: Reports other Details: Generalized weakness ; Denies chills or fever(s) Eyes Eyes: Denies change in vision ENT ENT ED: Denies rhinorrhea or sore throat Cardiovascular Cardiovascular: Denies chest pain Respiratory/Chest Respiratory/Chest: Denies cough or dyspnea Gastrointestinal Gastrointestinal: Reports diarrhea and nausea; Denies abdominal pain or vomiting Genitourinary Genitourinary ED: Denies dysuria or urinary frequency Musculoskeletal Musculoskeletal: Denies arthralgias or myalgias Integumentary Denies rash Neurologic Neurologic: Reports paresthesias RUE (Right hand-affecting different fingers at different times per patient) and weakness Psychiatric Psychiatric: Denies anxiety or depression Hematologic/Lymphati c Hematologic/Lymphati c: Denies easy bleeding or easy bruising EXAM Physical Exam Const Vital Signs: 07/22/24 07:14 07/22/24 07:21 07/22/24 08:13 Temperature 97.1 F L Temperature Source Oral Pulse Rate 93 76 Respiratory Rate 16 24 H Respiratory Effort Normal Respiratory Pattern Normal Blood Pressure 125/109 H Blo (more content not included)... Normal [facility] Eosinophil percentageOrdered By: Nainpatrick Coleman on 07-22-2024 Eosinophils/100 WBC (Bld) 0.0 % 0-5 [facility] Erythrocyte distribution wid th ratioOrdered By: Nanipatrick Coleman on 07-22-2024 Erythrocyte distribution width (RBC) [Ratio] 14.6 % 11.6-14.6 [facility] Erythrocyte distribution wid th standard deviationOrdered By: Nanipatrick Coleman on 07-22-2024 Erythrocyte distribution width (RBC) [Ratio] 47.3 fl High 35.1-43.9 [facility] Glomerular filtration rate ( GFR) estimation/1.73 sq m using serum, plasma, or whole bOrdered By: Nani Coleman on 07-22-2024 GFR/1.73 sq M.predicted among non-blacks MDRD (S/P/Bld) [Vol rate/Area] 25 mL/min/{1.73_m2} Low >60 [facility] Comment on above: mL/min/1.73m2 CKD-EP I Creatinine Equation (2020) Glucoseon 07-22-2024 Glucose [Mass/Vol] 747 mg/dL Invalid Interpretation Code 70-99 [facility] Comment on above: Result Comment: Crit ical Result(s) Called at: 07/22/2024-14:18 by: Ad Friedman to Princess Najera??Results read back by same. Performed By: #### L 501.0100 ####[facility] [address] [place], [place], [address] H AND P Exam - Hospitaliston 07-22-2024 H&P Exam - Hospitalist [facility] Medical Records Department [address] [place] [address] H P Exam - Hospitalist 07/22/24 0952 MR#: [id number] Acct: [id number] Name: SANJUANITA JERRY Rep #: [id number] : 1965 59 From: Floresita Capellan DO PCP: Dr. Art Herman MD Status:ADM IN Location: ICU [id number] HPI - General General Date of Admission: 07/22/24 Date of Service: 07/22/24 Chief Complaint: Generalized weakness HPI Narrative SANJUANITA JERRY, is a 59 F who presented to the emergency department [facility] on 07/22/2024 with a chief complaint of generalized weakness. There was apparently some concern for stroke because the last night about 1:30 AM she had some intermittent paresthesias in her right hand and fingers. Though symptoms are resolved. Her daughter noted that her voice or speech was different at that time as well but her daughter was at work. This morning her daughter still felt her speech was changed so she called EMS. Patient reported she had intermittent diarrhea and nausea for about 3 weeks. She has not been taking any of her home medications including her insulin. She denies any fever or chills, she denied abdominal pain, she indicated she was extremely thirsty and wanted to drink. She follows with endocrinology as an outpatient with her last visit being on 05/27/2024. It appears there is a long history of noncompliance. Vital signs at the time of presentation showed a temperature of 97.1, heart rate 93, respiratory rate was 16, blood pressure was 125/109 and pulse ox was 98% on room air. CBC showed a white count of 22.5 with a hemoglobin of 11.1 and thrombocytosis with a platelet count of 526,000 CBC appears to be markedly hemoconcentrated compared to her baseline. A VBG was obtained and her pH was 7.26. Her chemistry showed marked hypokalemia with potassium of 2.3 she had significant VIJAY with serum creatinine of 2.19 and a BUN of 51. Anion gap was elevated at 21 however her bicarb was normal at 30.7 I suspect this is all contraction related and her anion gap is elevated related to her VIJAY. Serum creatinine baseline is between 0.8 and 1.0. Serum glucose on presentation was 1162. Serum osmolality was elevated at 356. Lactic acid was normal at 1. Magnesium was normal at 2.3 however phosphorus was found to be 0.7. Liver functions were fairly unremarkable. Initial troponin was 47 with a delta of 40 and patient denying any chest pain I suspect this is elevated due to her VIJAY. Beta hydroxybutyrate was normal. Her UA is suggestive of infection. CT of brain was unremarkable for any acute findings. Chest x-ray is unremarkable. Patient was aggressively hydrated and treated for hypokalemia in the emergency department and given subcu insulin. 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 Below knee amputation Dysphagia Acid reflux Diabetes Home Medications ???Medication ???Instructions ???Recorded ???Last Taken ???Type albuterol sulfate 90 mcg/actuation 2 puff inhalation Q4H PRN Sob / Or 10/01/18 Unknown History aerosol inhaler Wheezing dapagliflozin propanediol 10 mg 10 mg PO DAILY blood sugars 02/25/23 History tablet (Farxiga) atorvastatin 40 mg tablet 40 mg PO QHS cholesterol 02/26/23 02/25/23 History cholecalciferol (vitamin D3) 25 25 mcg PO DAILY supplement 3 02/25/23 History mcg (1,000 unit) tablet ferrous sulfate 325 mg (65 mg 325 mg PO DAILY supplement 3 02/25/23 History iron) tablet (FeroSul) lisinopril 5 mg tablet 5 mg PO DAILY blood pressure 02/2602/25/23 History blood-glucose meter (True Metrix #1 ea 08/19/23 Unknown Rx Glucose Meter) True Metrix Glucose Test Strip #50 ea 06/30/24 Unknown Rx (blood sugar diagnostic) glipizide 5 mg tablet 5 mg PO BID #60 tabs 06/30/24 Unkn own Rx Allergy/AdvReac Type Severity Reaction Status Date / Time No Known Allergies Allergy Verified 05/27/24 10:09 Family History Grandmother Breast cancer Father Heart disease Hypertension Sister Thyroid disorder Aunt Thyroid disorder Other Arthritis CVA (cerebral vascular accident) Kidney disease Myocardial infarction Surgical History History of appendectomy Status post below knee amputation of right lower extremity history EGD with dilatation S/P appendectomy H/O thumb surgery Social History household members: family Smoking Status: Heavy Smoker (>10/day) alcohol intake: never substance use type: does not use wha (more content not included)... Normal [facility] Hematocrit Auto (Bld) [Volum e fraction]Ordered By: Nani Coleman on 07-22-2024 Hematocrit (Bld) [Volume fraction] 35.3 % Low 37-47 [facility] Hemoglobin A1con 07-22-2024 HbA1c (Bld) [Mass fraction] 13.7 % High <=5.6 [facility] Comment on above: Result Comment: Norm al < 5.7 % Prediabetic 5.7 - 6.4 % Diabetic >or= 6.5 % Please note range changes. Performed By: #### L 501.9999, L500.2500 ####[facility] [address] [place], [address] Hemoglobin A1c percentageOrd ered By: Floresita Capellan on 07-22-2024 HbA1c (Bld) [Mass fraction] 13.7 % High <5.7 [facility] Comment on above: Normal < 5.7 % Predi abetic 5.7 - 6.4 % Diabetic >or= 6.5 % Please note range changes. Hemoglobin measurementOrdere d By: Nani Coleman on 07-22-2024 Hemoglobin (Bld) [Mass/Vol] 11.1 g/dL Low 12.0-15.0 [facility] Immature granulocytes/100 WB C Auto (Bld)Ordered By: Nani Coleman on 07-22-2024 Immature granulocytes/100 WBC (Bld) 0.600 % 0.0-0.9 [facility] Comment on above: IG% - Immature Granu locytes (promyelocytes, myelocytes and metamyelocytes) > 1% indicates that a LEFT SHIFT is Present. Ketones Test strip Ql (U)Ord ered By: Nani Coleman on 07-22-2024 Ketones Ql (U) Negative Negative [facility] L499.0042on 07-22-2024 Trop T High Sen Normal <=14 [facility] Comment on above: Result Comment: Canc elled via OM: MD Ordered Performed By: #### L 499.0042 ####[facility] [address] [place], [address] L499.0043on 07-22-2024 Trop T High Sen 40 ng/L High <=14 [facility] Comment on above: Performed By: #### L 499.0043 ####[facility] [address] [place], [address] L501.4021on 07-22-2024 Trop T High Sen 47 ng/L High <=14 [facility] Comment on above: Performed By: #### L 501.4021 ####[facility] [address] [place], [address] Laboratory - Chemistry and C hemistry - challengeOrdered By: Nani Coleman on 07-22-2024 AST [Catalytic activity/Vol] 77 U/L High <32 [facility] Lactic Acidon 07-22-2024 Lactate [Moles/Vol] 1.0 mmol/L Normal 0.0-2.0 [facility] Comment on above: Order Comment: Y Performed By: #### L 503.6005 ####[facility] [address] [place], [place], [address] Lactic acid measurementOrder ed By: Nani Coleman on 07-22-2024 Lactate [Moles/Vol] 1.0 mmol/L 0.0-2.0 [facility] MCV (mean corpuscular volume ) determinationOrdered By: Nani Coleman on 07-22-2024 MCV (RBC) [Entitic vol] 89.1 fL 81-99 [facility] Magnesiumon 07-22-2024 Magnesium [Mass/Vol] 1.7 mg/dL Normal 1.5-2.2 [facility] Comment on above: Performed By: #### L 500.2500, L501.2300, L501.5200 ####[facility] [address] [place], [address] Magnesium [Mass/Vol] 1.6 mg/dL Normal 1.5-2.2 [facility] Comment on above: Performed By: #### L 501.5200, L500.2500, L501.2300 ####[facility] [address] [place], [address] Magnesium [Mass/Vol] 1.7 mg/dL Normal 1.5-2.2 [facility] Comment on above: Performed By: #### L 500.2500, L501.2300, L501.5200 ####[facility] [address] [place], [address] Magnesium [Mass/Vol] 2.3 mg/dL High 1.5-2.2 [facility] Comment on above: Performed By: #### L 100.0100, L501.5200, L500.4050 ####[facility] [address] [place], [address] Magnesium measurement (mass/ volume)Ordered By: Nani Coleman on 07-22-2024 Magnesium (Unsp spec) [Mass/Vol] 2.3 mg/dL High 1.5-2.2 [facility] Mean corpuscular hemoglobin (MCH) determinationOrdered By: Nani Coleman on 07-22-2024 MCH (RBC) [Entitic mass] 28.0 pg 27.0-32.0 [facility] Mean corpuscular hemoglobin concentration (MCHC) determinationOrdered By: Nani Coleman on 07-22-2024 MCHC (RBC) [Mass/Vol] 31.4 g/dL Low 32-36 [facility] Mean platelet volume determi nationOrdered By: Nani Coleman on 07-22-2024 Platelet mean volume (Bld) [Entitic vol] 11.3 fL 6.2-12.0 [facility] Microscopic analysis of urin e for red blood cells (RBC)Ordered By: Nani Coleman on 07-22-2024 Microscopic analysis of urine for red blood cells (RBC) 0-5 SEEN /hpf 0-5 [facility] Monocyte percentageOrdered B y: Nani Coleman on 07-22-2024 Monocytes/100 WBC (Bld) 3.8 % 0-10 [facility] Mucus LM Ql (Urine sed)Order ed By: Nani Coleman on 07-22-2024 Mucus Ql (Urine sed) 0 SEEN /hpf [facility] Neutrophil percentageOrdered By: Nani Coleman on 07-22-2024 Neutrophils/100 WBC (Bld) 85.9 % High 47-70 [facility] Nitrite Test strip Ql (U)Ord ered By: Nani Coleman on 07-22-2024 Nitrite Ql (U) Negative Negative [facility] No Panel InformationOrdered By: Nani Coleman on 07-22-2024 Bld Gas Crit Called To/Read Back By Yes [facility] Blood Gas Notified Time 08:22:35 [facility] Blood Gas Notified Whom jared [facility] Blood Gas Sample Site Not entered [facility] Blood Gas Specimen Type REYNA [facility] Oxygen Delivery Device Not entered [facility] Nucleated red blood cell per centageOrdered By: Nani Coleman on 07-22-2024 Nucleated RBC/100 WBC (Bld) [Ratio] 0 % 0-5 [facility] Osmolality, Serumon 07-23-19 25 OSMOLALITY,SER 356 mOsm/KG High 275-295 [facility] Comment on above: Performed By: #### L 526.4655 ####[facility] [address] [place], [address] Phosphoruson 07-22-2024 Phosphate [Mass/Vol] 3.5 mg/dL Normal 2.7-4.5 [facility] Comment on above: Performed By: #### L 500.2500, L501.2300, L501.5200 ####[facility] [address] [place], [address] Phosphate [Mass/Vol] 1.2 mg/dL Invalid Interpretation Code 2.7-4.5 [facility] Comment on above: Performed By: #### L 501.5200, L500.2500, L501.2300 ####[facility] [address] [place], [address] Phosphate [Mass/Vol] 0.7 mg/dL Invalid Interpretation Code 2.7-4.5 [facility] Comment on above: Result Comment: Crit ical Result(s) Called at: 07/22/2024-14: by: Ad Friedman to Diego Alfonso??Results read back by same. Performed By: #### L 500.2500, L501.2300, L501.5200 ####[facility] [address] [place], [address] Platelet countOrdered By: Juan Miguel Coleman on 07-22-2024 Platelets (Bld) [#/Vol] 526 10*3/uL High 150-450 [facility] Potassium measurement (mass/ volume)Ordered By: Nani Coleman on 07-22-2024 Potassium (Unsp spec) [Mass/Vol] 2.3 mmol/L Low 3.3-5.1 [facility] Comment on above: Critical Result(s) C alled at 07/22/2024-08:06 by: Ad Friedman to Felipa Ferraro Results read back by same. Protein Test strip Ql (U)Ord ered By: Nani Coleman on 07-22-2024 Protein Ql (U) 100 mg/dl High Negative [facility] RBC Auto (Bld) [#/Vol]Ordere d By: Nani Coleman on 07-22-2024 RBC (Bld) [#/Vol] 3.96 10*6/uL Low 4.2-5.4 [facility] Serum creatinine measurement (mass/volume)Ordered By: Nani Coleman on 07-22-2024 Creatinine [Mass/Vol] 2.19 mg/dL High 0.70-1.20 [facility] Serum globulin measurementOr dered By: Nani Coleman on 07-22-2024 Globulin (S) [Mass/Vol] 4.6 g/dL High 2.2-4.2 [facility] Serum glucose measurement (m ass/volume)Ordered By: Nani Coleman on 07-22-2024 Glucose [Mass/Vol] 1162 mg/dL High 70-99 [facility] Comment on above: Critical Result(s) C alled at 07/22/2024-08:15 by: Ad Friedman to Felipa Ferraro Results read back by same. Serum or plasma alanine odom otransferase (ALT) measurementOrdered By: Nani Coleman on 07-22-2024 ALT [Catalytic activity/Vol] 12 U/L <35 [facility] Serum or plasma albumin jacobo urement (mass/volume)Ordered By: Nani Coleman on 07-22-2024 Albumin [Mass/Vol] 3.6 g/dL 3.5-5.0 [facility] Serum or plasma albumin/glob ulin mass ratioOrdered By: Nani Coleman on 07-22-2024 Albumin/Globulin [Mass ratio] 0.8 {ratio} Low 0.9-2.4 [facility] Serum or plasma alkaline garland sphatase measurementOrdered By: Nani Coleman on 07-22-2024 ALP [Catalytic activity/Vol] 129 U/L High 35-104 [facility] Serum or plasma calcium jacobo urement (mass/volume)Ordered By: Nani Coleman on 07-22-2024 Calcium [Mass/Vol] 9.6 mg/dL 7.6-11.0 [facility] Serum or plasma urea nitroge n measurement (mass/volume)Ordered By: Nani Coleman on 07-22-2024 Urea nitrogen [Mass/Vol] 51 mg/dL High 4-19 [facility] Sodium levelOrdered By: Derek Coleman on 07-22-2024 Sodium [Moles/Vol] 133 mmol/L 133-145 [facility] Squamous epithelial cells de tection in urine sediment by light microscopyOrdered By: Nani Coleman on 07-22-2024 Epithelial cells.squamous LM Ql (Urine sed) 0 SEEN /hpf 5-10 [facility] Total proteinOrdered By: Shannan Coleman on 07-22-2024 Protein [Mass/Vol] 8.2 g/dL 5.9-8.4 [facility] Troponin T.cardiac [Mass/vol ume] in Serum or Plasma by High sensitivity methodOrdered By: Nani Coleman on 07-22-2024 Troponin T.cardiac High sensitivity method [Mass/Vol] 40 ng/L High <14 [facility] Troponin T.cardiac High sensitivity method [Mass/Vol] 47 ng/L High <14 [facility] Urinalysis, Completeon 07-22 BACTERIA 2+ /hpf Normal None Seen [facility] Comment on above: Order Comment: CLEAN CATCH Performed By: #### M 100.0605, M100.6796, M100.637, L400.0001 ####[facility] [address] [place], [address] RBC 0-5 SEEN Normal 0-5 [facility] Comment on above: Order Comment: CLEAN CATCH Performed By: #### M 100.0605, M100.6796, M100.637, L400.0001 ####[facility] [address] [place], [address] WBC 25-50 SEEN Normal 0-5 [facility] Comment on above: Order Comment: CLEAN CATCH Performed By: #### M 100.0605, M100.6796, M100.637, L400.0001 ####[facility] [address] [place], [address] EPI,SQUAMOUS 0 SEEN Normal 5-10 [facility] Comment on above: Order Comment: CLEAN CATCH Performed By: #### M 100.0605, M100.6796, M100.637, L400.0001 ####[facility] [address] [place], [address] Mucus Ql (Urine sed) 0 SEEN Normal [facility] Comment on above: Order Comment: CLEAN CATCH Performed By: #### M 100.0605, M100.6796, M100.637, L400.0001 ####[facility] [address] [place], [address] Urine clarityOrdered By: Shannan Coleman on 07-22-2024 Clarity (U) Sl. Cloudy Clear [facility] Urine color determinationOrd ered By: Nani Coleman on 07-22-2024 Color (U) Straw Yellow [facility] Urine cultureOrdered By: Shannan Coleman on 07-22-2024 Bacteria identified Cx Nom (U) Escherichia coli Abnormal [facility] Urine glucose detectionOrder ed By: Nani Coleman on 07-22-2024 Glucose Ql (U) 1000 mg/dl High Normal [facility] Urine leukocyte esterase det ection by dipstickOrdered By: Nani Coleman on 07-22-2024 Leukocyte esterase Test strip Ql (U) 500 /ul High Negative [facility] Urine pHOrdered By: Nani salvador on 07-22-2024 pH (U) 6.0 [pH] 5.0 - 8.0 [facility] Urine sediment bacteria coun t by microscopy (number/high power field)Ordered By: Nani Coleman on 07-22-2024 Bacteria LM.HPF (Urine sed) [#/Area] 2 /[HPF] None Seen [facility] Urine specific gravity measu rementOrdered By: Nani Coleman on 07-22-2024 Specific gravity (U) [Rel density] 1.005 1.002-1.030 [facility] Urine urobilinogen measureme ntOrdered By: Nani Coleman on 07-22-2024 Urobilinogen Ql (U) Normal mg/dl Normal [facility] Venous Blood Gason Blood Gas Type REYNA Normal [facility] Comment on above: Performed By: #### L 9000.0810 ####[facility] [address] [place], [address] CO2 [Moles/Vol] 8 mmol/L Low 23-33 [facility] Comment on above: Performed By: #### L 9000.0810 ####[facility] [address] [place], [address] HCO3 (Bld) [Moles/Vol] 8 mmol/L Low 22-26 [facility] Comment on above: Performed By: #### L 0.0810 ####[facility] [address] [place], [address] O2 Delivery Dev Not entered [facility] Comment on above: Performed By: #### L 9000.0810 ####[facility] [address] [place], [address] Read Back By [facility] Comment on above: Performed By: #### L 9000.0810 ####[facility] [address] [place], [address] Results To [facility] Comment on above: Performed By: #### L 900.0810 ####[facility] [address] [place], [address] SITE Not entered [facility] Comment on above: Performed By: #### L 9000.0810 ####[facility] [address] [place], [address] Time Given 08:22:35 [facility] Comment on above: Performed By: #### L 9000.0810 ####[facility] [address] [place], [address] VBG BE -19 mmol/L Low -1.0-3.5 [facility] Comment on above: Performed By: #### L 9000.0810 ####[facility] [address] [place], [place], [id number] VBG pCO2 17.4 mmHg Invalid Interpretation Code 41-51 [facility] Comment on above: Performed By: #### L 9000.0810 ####[facility] [address] [place], [place], [id number] VBG pH 7.26 Low 7.32-7.42 [facility] Comment on above: Performed By: #### L 9000.0810 ####[facility] [address] [place], [place], [id number] VBG PO2 176 mmHg High 25-40 [facility] Comment on above: Performed By: #### L 9000.0810 ####[facility] [address] [place], [place], [id number] VBG SO2 99 High 50-70 [facility] Comment on above: Performed By: #### L 9000.0810 ####[facility] [address] [place], [place], [id number] Venous blood base excess brant surementOrdered By: Nani Coleman on 07-22-2024 Base excess Calc (BldV) [Moles/Vol] -19 mmol/L Low -1.0-3.5 [facility] Venous blood bicarbonate brant surementOrdered By: Nani Coleman on 07-22-2024 HCO3 (Bld) [Moles/Vol] 8 mmol/L Low 22-26 [facility] Venous blood oxygen saturati on measurementOrdered By: Nani Coleman on 07-22-2024 Oxygen saturation in Blood 99 % High 50-70 [facility] Venous blood pH measurementO rdered By: Nani Coleman on 07-22-2024 pH (BldV) 7.26 [pH] Low 7.32-7.42 [facility] Venous blood partial pressur e of carbon dioxide measurementOrdered By: Nani Coleman on 07-22-2024 CO2 (BldV) [Partial pressure] 17.4 mm[Hg] Low 41-51 [facility] Venous blood partial pressur e of oxygen measurementOrdered By: Nani Coleman on 07-22-2024 Oxygen (BldV) [Partial pressure] 176 mm[Hg] High 25-40 [facility] White blood cell (WBC) count Ordered By: Nani Coleman on 07-22-2024 WBC (Bld) [#/Vol] 22.5 10*3/uL High 4.4-11.0 [facility] White blood cell countOrdere d By: Nani Coleman on 07-22-2024 White blood cell count 25-50 SEEN /hpf 0-5 [facility] CNOVon 07-13-2024 CNOV Office Visit (PULMWS) SANJUANITA JERRY ([id number]) 1965 F Date Time Provider Department 07/13/24 10:00 AM NAOMY BERGMAN PULISAIAH During your visit today, we recorded the following information about you: Pulse Respiration Blood pressure 78/minute 17/minute 108/62 Naomy Bergman APRN.AUTO WASH BUFFER 07/13/2024 12:11 PM Signed Chief Complaint: Follow-up from Initial CT Lung Screening scan completed 12/06/2022 History of Present Illness: Sanjuanita Jerry is a 59 year old female who is presenting today for CT lung screening imaging review. She was scheduled as a new patient, but has been seen previously. She did not get a 12 month follow up done from the 12/06/2022 LDCT. Patient is a current smoker with a 22 pack year history. Currently still smoking 1/2 pack daily. Since the patient's last visit the patient has had new medical issues or hospitalizations. Right BKA revision done 07/2023. No recent respiratory infections/pneumonia . Accompanied by her daughter. Modified [employer] [place] Dyspnea Scale (MMRC) I only get breathless with strenous exercise 0 Patient denies SOB with their daily activity. No wheezing or dyspnea. Patient denies feeling of chest tightness/congestion in the chest. Patient does not have a new or concerning cough, and denies hemoptysis. Patient does not have a chronic daily cough. Denies regular or recent fevers/chills. Patient does not have any significant unintentional weight loss. Patient denies having any respiratory infections or COVID-19 in the past few months. Last 12 Encounter Wt Readings: Date: Wt: 06/29/2024 44.7 kg (98 lb 8 oz) 06/08/2024 43.1 kg (95 lb) 05/13/2024 43.5 kg (95 lb 12.8 oz) 12/12/2023 44.9 kg (99 lb) 11/05/2023 44.8 kg (98 lb 12.3 oz) 08/06/2023 40.8 kg (90 lb) 08/05/2023 41.2 kg (90 lb 12.8 oz) 07/16/2023 44.5 kg (98 lb) 06/25/2023 44.5 kg (98 lb) 06/17/2023 44.5 kg (98 lb) 05/21/2023 44.9 kg (99 lb) 03/06/2023 45 kg (99 lb 4.8 oz) Past Medical History: PAST MEDICAL HISTORY Diagnosis Date Cataracts, bilateral s/p surgery in 2021 at [facility] Coronary artery calcification 11/[address] chest Diabetic neuropathy (HCC) Folic acid deficiency Gas gangrene of lower extremity (HCC) Goiter, unspecified 09/29/2007 Hypokalemia Hypomagnesemia Known medical problems rt BKA PAD (peripheral artery disease) S/P BKA (below knee amputation) ([facility]) 05/31/2022 right Tobacco use disorder Type II or unspecified type diabetes mellitus without mention of complication, uncontrolled Endo: Dr. Madrigal Surgical Hx: PAST SURGICAL HISTORY Procedure Laterality Date APPENDECTOMY HX 80s CATARACT EXTRACTION HX Bilateral 04/2022 EGD W/O BRSH SPEC VARICIES INJ 2019 with esophageal dilation LEG AMPUTATION HX Right 06/03/2022 BKA PAST SURGICAL HISTORY OF Lt thumb straightened Family Hx: FAMILY HISTORY Problem Relation Age of Onset Stroke Mother Ischemic Heart Disease Mother Diabetes Mother Hypertension Mother Stroke Father Ischemic Heart Disease Father Hypertension Father Diabetes Father Kidney failure Sister Ischemic Heart Disease Brother Massive [place] at age 38 Breast Cancer Paternal Grandmother Allergies: ALLERGIES No Known Allergies Social History Tobacco Use: Types: Cigarettes Review Of Systems: See HPI for ROS All of the remainder systems were reviewed and negative. PHYSICAL EXAMINATION: BP 108/62 Pulse 78 Resp 17 SpO2 100% LMP 09/16/2007 General appearance: Thin, in no acute distress, and alert, in wheelchair Skin: skin color, texture, turgor normal, no rashes or lesions Nose/Sinuses: Negative Neck: Supple, no adenopathy; thyroid symmetric, normal size Respiratory: lungs clear to auscultation no wheezing or rhonchi Cardiovascular: Negative. RRR without murmur, gallop, or rubs. No ectopy Neuro: Oriented X 3 Data Review I have visually reviewed imaging and testing below CT imaging done today was reviewed and analyzed independently by practitioner CT was compared to prior CT chest. Prior PFTS: No textual results found for the specified procedure(s). Assessment and Plan: 1. Pulmonary Nodule: There are small lung nodules noted on 12/06/2022 scan. Recommended follow-up anytime. Pt is overdue for 12 month LDCT. She is reluctant to proceed with screening. She states she is tired of doctors. Her daughter encouraged her to continue with screening. She plans to schedule for a later date. The patient was counseled on the importance of adherence to annual LDCT lung cancer screening, impact of comorbidities and ability or willingness to undergo diagnosis and treatment. 2. Nicotine Dependence, Current: Smoking cessation encouraged. Offered patient assistance programs and treatment. Patient plans to continue smoking Naomy Bergman APRN.AUTO WASH BUFFER July 13, 2024 Greg (more content not included)... Normal [facility] CNOVon 06-29-2024 CNOV Office Visit (CARDWS) SANJUANITA JERRY ([id number]) 1965 F Date Time Provider Department 06/29/24 10:00 AM YAAKOV HAYES During your visit today, we recorded the following information about you: Pulse Respiration Blood pressure Weight 87/minute 12/minute 124/70 44.7 kg Height 1.524 m Yaakov Hayes MD 06/29/2024 10:29 AM Signed Yaakov Hayes MD Interventional Cardiology [address] [address] [phone] Chief Complaint Patient presents with: Follow Up: one year HISTORY OF PRESENT ILLNESS: Ms. Jerry is a 58 year old female seen in my office today for assessment and management patient had prior history of hypertensive heart disease maintained on CÉSAR inhibitors history of hyperlipidemia maintained on statin Low-dose does lung scan show extensive calcification coronary artery underwent a nuclear stress test shows no evidence of ischemia Patient denies any chest pain or shortness of breath no signs or symptoms of congestive heart failure Cardiac Risk Factors age (male over 45, female over 55), hyperlipidemia, history of smoking, hypertension, family history of CAD PAST MEDICAL HISTORY Diagnosis Date Cataracts, bilateral s/p surgery in 2021 at [facility] Coronary artery calcification 11/[address] chest Diabetic neuropathy (HCC) Folic acid deficiency Gas gangrene of lower extremity (HCC) Goiter, unspecified 09/29/2007 Hypokalemia Hypomagnesemia Known medical problems rt BKA PAD (peripheral artery disease) S/P BKA (below knee amputation) (HCC) 05/31/2022 right Tobacco use disorder Type II or unspecified type diabetes mellitus without mention of complication, uncontrolled Endo: Dr. Madrigal PAST SURGICAL HISTORY Procedure Laterality Date APPENDECTOMY HX 80s CATARACT EXTRACTION HX Bilateral 04/2022 EGD W/O BRSH SPEC VARICIES INJ 2018 with esophageal dilation LEG AMPUTATION HX Right 06/03/2022 BKA PAST SURGICAL HISTORY OF Lt thumb straightened FAMILY HISTORY Problem Relation Age of Onset Stroke Mother Ischemic Heart Disease Mother Diabetes Mother Hypertension Mother Stroke Father Ischemic Heart Disease Father Hypertension Father Diabetes Father Kidney failure Sister Ischemic Heart Disease Brother Massive [place] at age 38 Breast Cancer Paternal Grandmother Social History Tobacco Use Smoking status: Every Day Current packs/day: 0.50 Average packs/day: 0.5 packs/day for 45.3 years (22.6 ttl pk-yrs) Types: Cigarettes Start date: 03/18/1979 Smokeless tobacco: Never Vaping Use Vaping status: Never Used Substance Use Topics Alcohol use: No Drug use: No ALLERGIES No Known Allergies Medications: Current Outpatient Medications Medication Sig Dispense Refill folic acid 1 mg tablet Take 1 tablet by mouth once daily. 90 tablet 0 Magnesium Chloride (SLOW-MAG) 71.5 mg TbEC Take 2 tablets by mouth once daily. 60 tablet 0 ferrous sulfate 325 mg (65 mg iron) tablet Take 1 tablet by mouth once daily. 90 tablet 1 calcium carbonate (CALTRATE) 600 mg calcium (1,500 mg) tab Take 1,200 mg by mouth once daily. aspirin, enteric coated (ASPIRIN, ENTERIC COATED) 81 mg EC tablet Take 81 mg by mouth once daily. albuterol HFA (PROVENTIL HFA, VENTOLIN HFA) 90 mcg/actuation inhaler Inhale 2 Puffs as instructed every 4 hours as needed for wheezing/shortness of breath. 1 Each 3 Cholecalciferol, Vitamin D3, (VITAMIN D) 25 mcg (1,000 unit) cap Take 2 capsules by mouth once daily. Taking 2,000 units daily 180 capsule 1 glipiZIDE (GLUCOTROL) 5 mg tablet Take 5 mg by mouth two times a day before meals. blood sugar diagnostic(TRUETRACK TEST STRIPS) Test blood sugars twice daily. 100 11 blood-glucose meter(TRUETRACK BLOOD GLUCOSE SYSTEM KIT) Test glucose as directed 1 0 blood-glucose control, low(TRUETRACK GLUCOSE SOLN) Test controls as needed 1 3 LANCETS Test blood sugars once daily, 250.00, non insulin dep 100 11 atorvastatin (LIPITOR) 40 mg tablet Take 1 tablet by mouth daily at bedtime. For cholesterol. 90 tablet 3 lisinopril (ZESTRIL) 5 mg tablet Take 1 tablet by mouth once daily. 90 tablet 3 No current facility-administere d medications for this visit. Review of Systems Constitutional: Negative for chills, diaphoresis, fever, malaise/fatigue and weight loss. HENT: Negative for congestion, ear discharge, ear pain, hearing loss, nosebleeds, sinus pain, sore throat and tinnitus. Eyes: Negative for blurred vision, double vision, photophobia, pain, discharge and redness. Respiratory: Negative for cough, hemoptysis, sputum production, shortness of breath, wheezing and stridor. Cardiovascular: Negative for chest pain, palpitations, orthopnea, claudication, leg swelling and PND. Gastrointestinal: Negative for abdominal pain, blood in stool, constipation, diarrhea, heartburn, melena, naus (more content not included)... Normal [facility] CNOVon 06-18-2024 CNOV Office Visit (PODIWS) SANJUANITA JERRY ([id number]) 1965 F Date Time Provider Department 06/18/24 1:15 PM KEDAR LONG PODIWS During your visit today, we recorded the following information about you: Emelyn Cee LPN 06/18/2024 1:44 PM Signed AMB ROOMING INTAKE FLOWSHEET DATA Patient presents with: Left Foot - Established Patient, Diabetic Foot Care, Follow Up FARIDA Villeda Matthew 06/18/2024 1:44 PM Signed Last saw pcp: 05/13/24 Subjective: Patient presents to clinic c/o painful toenails. They state that the nails are especially painful with shoe gear and pressure. Patient admits to being diabetic. No other pedal complaints at this time. Patient states no change in medications or medical history since last visit. Objective: Patient presents to clinic nonambulatory Vasc: DP and PT pulses are palpable left. CFT is less than 5 seconds left Skin temperature is warm to cool proximal to distal bilateral. There is no edema or varicosities noted. Neuro: Protective sensation is intact to the foot and toes when tested with the 5.07 SWM left. Vibratory sensation is decreased at the hallux IPJ left. Derm: Nails 1-5 left are discolored-yellow, thick, crumbly, dystrophic and with subungal debris. Skin is of normal turgor, texture and hair growth is decreased left. There are callus to left 4th toe lateral aspect, callus to left 1st and 5th metatarsal. Ortho: Muscle strength is 5/5 for all pedal groups tested. Ankle joint DF is decreased with the knee extended with no pain or crepitus noted. 1st MPJ ROM is decreased left. 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 Assessment: (E11.42) Diabetic polyneuropathy associated with type 2 diabetes mellitus (HCC) (primary encounter diagnosis) (B35.1) Onychomycosis (Z89.511) History of below-knee amputation of right lower extremity (HCC) (L84) Callus of foot (M20.42) Hammertoe of left foot Plan: Patient was seen and evaluated. Nails 1-5 left were debrided in length and thickness. Small bleed to left 5th toe. Band aide applied Discussed hammertoe of left 5th toe leading to rubbing on 4th toe. She has callus to the 4th toe. Options include padding between the toes, derotational arthroplasty of left 5th toe, syndactyl of 4th and 5th toe vs amputation of left 5th toe. This patient has elected to continue with padding. Callus of left 4th toe reduced with 15 blade and dremmel. Callus of left 1st and left 5th metatarsal reduced with dremmel. Patient was instructed on the continued importance of diabetic foot care along with proper diet and keeping their blood sugar under control to prevent complications. I stressed the importance of avoiding barefoot walking, wearing good shoes and inspection of feet. I discussed how this patient suffers from neuropathy and that it is important that she monitor for any open wounds. If she develops any issues, she is to contact our office immediately and we will have them seen. Patient is to RTC in 9 weeks Kedar Long DPM Referring Provider: KEDAR LONG [[id number]] Allergies As of Date: 06/18/2024 (No Known Allergies) Date Reviewed: 06/18/2024 Reviewed by: Emelyn Cee LPN - Fully Assessed Reason for Visit: Established Patient [175] Diabetic Foot Care [916] Follow Up [171] Primary Visit Diagnosis:Diabetic polyneuropathy associated with type 2 diabetes mellitus (HCC) [E11.42] Other Visit Diagnoses:Onychomyco sis [B35.1] History of below-knee amputation of right lower extremity (HCC) [Z89.511] Callus of foot [L84] Hammertoe of left foot [M20.42] Prescriptions as of 06/18/2024 - folic acid 1 mg tablet Take 1 tablet by mouth once daily. - Magnesium Chloride (SLOW-MAG) 71.5 mg TbEC Take 2 tablets by mouth once daily. - ferrous sulfate 325 mg (65 mg iron) tablet Take 1 tablet by mouth once daily. - calcium carbonate (CALTRATE) 600 mg calcium (1,500 mg) tab Take 1,200 mg by mouth once daily. - atorvastatin (LIPITOR) 40 mg tablet Take 1 tablet by mouth daily at bedtime. For cholesterol. - lisinopril (ZESTRIL) 5 mg tablet Take 1 tablet by mouth once daily. - aspirin, enteric coated (ASPIRIN, ENTERIC COATED) 81 mg EC tablet Take 81 mg by mouth once daily. - albuterol HFA (PROVENTIL HFA, VENTOLIN HFA) 90 mcg/actuation inhaler Inhale 2 Puffs as instructed every 4 hours as needed for wheezing/shortness of breath. - Cholecalciferol, Vitamin D3, (VITAMIN D) 25 mcg (1,000 unit) cap Take 2 capsules by mouth once daily. Taking 2,000 units daily - glipiZIDE (GLUCOTROL) 5 mg tablet Take 5 mg by mouth two times a day before meals. - blood sugar diagnostic(TRUETRACK TEST STRIPS) Test blood sugars twice daily. - blood-glucose meter(TRUETRACK BLOOD GLUCOSE SYSTEM KIT) Test glucose as directed - blood-glucose control, low(TRUETRACK GLUCOSE SOLN) Test controls as needed - LANCETS Tammy (more content not included)... Normal [facility] CNOVon 06-08-2024 CNOV Office Visit (JOHN) SANJUANITA JERRY ([id number]) 1965 F Date Time Provider Department 06/08/24 10:45 AM GAYE TANG During your visit today, we recorded the following information about you: Temperature Pulse Blood pressure Weight 98.2 degrees 86/minute 124/62 43.1 kg Height 1.524 m Gaye Tang MD 06/09/2024 3:07 PM Signed HISTORY AND PHYSICAL Sanjuanita Jerry 1965 REFERRING PHYSICIAN: No ref. provider found CHIEF COMPLAINT: No chief complaint on file. HPI: The patient is a 58 year old female referred for endoscopy. Sanjuanita has had no previous colonoscopy. She notes no blood in her stools. She denies chronic abdominal pain. She is anemic, with last Hgb of 8.1. She notes no family members with colon cancer. 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 PAST MEDICAL HISTORY Diagnosis Date Cataracts, bilateral s/p surgery in 2021 at [facility] Coronary artery calcification 11/[address] chest Diabetic neuropathy (HCC) Folic acid deficiency Gas gangrene of lower extremity (HCC) Goiter, unspecified 09/29/2007 Hypokalemia Hypomagnesemia Known medical problems rt BKA PAD (peripheral artery disease) ([facility]) S/P BKA (below knee amputation) ([facility]) 05/31/2022 right Tobacco use disorder Type II or unspecified type diabetes mellitus without mention of complication, uncontrolled Endo: Dr. Madrigal PAST SURGICAL HISTORY Procedure Laterality Date APPENDECTOMY HX 80s CATARACT EXTRACTION HX Bilateral 04/2022 EGD W/O BRSH SPEC VARICIES INJ 2018 with esophageal dilation LEG AMPUTATION HX Right 06/03/2022 BKA PAST SURGICAL HISTORY OF Lt thumb straightened Current Outpatient Medications Medication Sig folic acid 1 mg tablet Take 1 tablet by mouth once daily. Magnesium Chloride (SLOW-MAG) 71.5 mg TbEC Take 2 tablets by mouth once daily. ferrous sulfate 325 mg (65 mg iron) tablet Take 1 tablet by mouth once daily. calcium carbonate (CALTRATE) 600 mg calcium (1,500 mg) tab Take 1,200 mg by mouth once daily. atorvastatin (LIPITOR) 40 mg tablet Take 1 tablet by mouth daily at bedtime. For cholesterol. lisinopril (ZESTRIL) 5 mg tablet Take 1 tablet by mouth once daily. aspirin, enteric coated (ASPIRIN, ENTERIC COATED) 81 mg EC tablet Take 81 mg by mouth once daily. albuterol HFA (PROVENTIL HFA, VENTOLIN HFA) 90 mcg/actuation inhaler Inhale 2 Puffs as instructed every 4 hours as needed for wheezing/shortness of breath. Cholecalciferol, Vitamin D3, (VITAMIN D) 25 mcg (1,000 unit) cap Take 2 capsules by mouth once daily. Taking 2,000 units daily glipiZIDE (GLUCOTROL) 5 mg tablet Take 5 mg by mouth two times a day before meals. blood sugar diagnostic(TRUETRACK TEST STRIPS) Test blood sugars twice daily. blood-glucose meter(TRUETRACK BLOOD GLUCOSE SYSTEM KIT) Test glucose as directed blood-glucose control, low(TRUETRACK GLUCOSE SOLN) Test controls as needed LANCETS Test blood sugars once daily, 250.00, non insulin dep No current facility-administere d medications for this visit. ALLERGIES: Patient has no known allergies. PERSONAL HISTORY: Social History Tobacco Use Smoking status: Every Day Current packs/day: 0.50 Average packs/day: 0.5 packs/day for 45.2 years (22.6 ttl pk-yrs) Types: Cigarettes Start date: 03/18/1979 Smokeless tobacco: Never Vaping Use Vaping status: Never Used Substance Use Topics Alcohol use: No Drug use: No FAMILY HISTORY Problem Relation Age of Onset Stroke Mother Ischemic Heart Disease Mother Diabetes Mother Hypertension Mother Stroke Father Ischemic Heart Disease Father Hypertension Father Diabetes Father Kidney failure Sister Ischemic Heart Disease Brother Massive [place] at age 38 Breast Cancer Paternal Grandmother REVIEW OF SYSTEMS: General - denies fevers Cardiovascular - denies chest pain Pulmonary - denies coughing up blood Gastrointestinal - denies abdominal pain, denies hematemesis, denies blood in stools Neurological - denies seizures Genitourinary - denies blood in urine Hematological - denies spontaneous/prolonge d bleeding Musculoskeletal - s/p right BKA Endocrine - has diabetes Psychological - denies hallucinations PHYSICAL EXAMINATION: General: The patient is 58 year old female, well nourished, well hydrated in no acute distress. Looks older than stated age. The patient is oriented to time, place, and person. VITALS: Blood pressure 124/62, pulse 86, temperature 36.8 ?C (98.2 ?F), height 152.4 cm (5'), weight 43.1 kg (95 lb), last menstrual period 09/16/2007, SpO2 99%. There is no height or weight on file to calculate BMI. Head: Normal cephalic, atraumatic Eyes: pupils are equally round, sclera are clear/anicteric, wearing glasses Neck is supple with no tracheal deviation Cardiac: normal heart sounds, regular Respiratory: Normal respiratory exc (more content not included)... Normal [facility] Folate SerPl-mCncon 05-29-19 25 Folate [Mass/Vol] 14.5 ng/mL Normal >4.7 [facility] Comment on above: Order Comment: Speci men Type: BLOOD SPECIMENOrdering Facility: [facility] Address: [address] [place] [address] Performed By: #### 1 9123-9, 228-8, K1 ####[facility] LABCLIA [id number] [place] [address] [place] Hemoccult Stl Ql IAon 2024 Lower GI hemoglobin IA Ql (Stl) Positive Abnormal Negative [facility] Comment on above: Order Comment: Speci men Type: STOOL SPECIMENOrdering Facility: [facility] Address: [address] [place] [address] Performed By: #### 2 9771-3 ####[facility] LABCLIA [id number] [place] [address] [place] Magnesium SerPl-ncon 05-28 Magnesium [Mass/Vol] 1.9 mg/dL Normal 1.7-2.3 [facility] Comment on above: Order Comment: Speci men Type: BLOOD SPECIMENOrdering Facility: [facility] Address: [address] [place] [address] Performed By: #### 1 9123-9, 8, K1 ####[facility] LABIA [id number] [place] [id number] [place] POTASSIUMon 05-28-2024 Potassium [Moles/Vol] 3.5 mmol/L Low 3.7-5.1 [facility] Comment on above: Order Comment: Speci men Type: BLOOD SPECIMENOrdering Facility: [facility] Address: [address] [place] [address] Performed By: #### 1 9123-9, 8, K1 ####[facility] LABCLIA [id number] [place] [id number] [place] Potassium ?Tm Ur-sCncon - Potassium Unsp time (U) [Moles/Vol] 28.0 mmol/L Normal 10.0-160.0 [facility] Comment on above: Order Comment: Speci men Type: URINE SPECIMENOrdering Facility: [facility] Address: [address] [place] [address] Performed By: #### 3 5677-4 ####[facility] LABIA [id number] [place] [id number] [facility] [place] Endocrinology Visit Reporton 05-27-2024 Endocrinology Visit Report [facility] [address] [place] [address] OFFICE VISIT Date of Service: 05/27/24 MR#: [id number] Acct: [id number] Name: SANJUANITA JERRY Rep #: [id number] : 1965 Provider: SINA morton Age/Sex: 58/F Location: [facility] Status: Signed Intake Vital Signs 02/24/24 09:57 05/27/24 10:09 Height 5 ft 5 ft Weight: 101 lb 92 lb BMI 19.7 17.9 BP 144/79 H 163/76 H Blood Pressure Location Lt brachial Lt brachial Position Sitting Sitting Pulse 98 93 Pulse Source Monitor Monitor Pulse Oximetry (%) 99 98 Oxygen Delivery Method room air room air Intake Visit Reasons: 3 M FU Chief Complaint: f/u diabetes Cook Helper Required: No Accompanied by: Daughter Is patient in pain?: No Allergies No Known Allergies Allergy (Verified 05/27/24 10:09) Medications ???Medication ???Instructions ???Recorded ???Confirmed ???Type albuterol sulfate 90 mcg/actuation 2 puff inhalation Q4H PRN Sob / Or 10/01/18 05/27/24 History aerosol inhaler Wheezing dapagliflozin propanediol 10 mg 10 mg PO DAILY blood sugars 05/27/24 History tablet (Farxiga) atorvastatin 40 mg tablet 40 mg PO QHS cholesterol 02/26/23 05/27/24 History cholecalciferol (vitamin D3) 25 25 mcg PO DAILY supplement 3 05/27/24 History mcg (1,000 unit) tablet ferrous sulfate 325 mg (65 mg 325 mg PO DAILY supplement 3 05/27/24 History iron) tablet (FeroSul) lisinopril 5 mg tablet 5 mg PO DAILY blood pressure 02/2605/27/24 History glipizide 5 mg tablet 5 mg PO BID #60 tabs 04/17/2305/16 Rx True Metrix Glucose Test Strip #50 ea 08/19/23 05/27/24 Rx (blood sugar diagnostic) blood-glucose meter (True Metrix #1 ea 08/19/23 05/27/24 Rx Glucose Meter) [facility] Medical History Smoker Cellulitis and abscess of right lower extremity Type 2 diabetes mellitus with hyperglycemia, without long-term current use of insulin Sinus tachycardia seen on traffic monitor specialist Below knee amputation Dysphagia Acid reflux Diabetes Surgical History History of appendectomy Status post below knee amputation of right lower extremity history EGD with dilatation S/P appendectomy H/O thumb surgery Family History Grandmother Breast cancer Father Heart disease Hypertension Sister Thyroid disorder Aunt Thyroid disorder Other Arthritis CVA (cerebral vascular accident) Kidney disease Myocardial infarction Social History household members: family Smoking Status: Current every day smoker tobacco type: cigarettes alcohol intake: never substance use type: does not use what type of physical activity do you participate in: walking HPI HPI Chief Complaint: f/u diabetes Details: SANJUANITA JERRY, is a 58 F who presents to the office today for evaluation and management of and osteoporosis. A1C is 8.5%, improved slightly from 02/24/24 at 8.7%. She has lost 9 lbs since that time. Currently taking glipizide 5 mg BID and Farxiga 10 mg once daily. At her appt in February I confronted her with fill history of her medications. She admitted at that time that she was not taking any of her prescribed medications for her diabetes. She reports strict compliance since that time, given minimal improvement in A1C, this is questionable. She denies any significant episode of hypoglycemia that has required assistance from others. Her diet is high in processed carbohydrates. She voices significant frustration with diabetes control and her overall health/life. She reports her house is in foreclosure and she is unsure when she will be evicted. Her BP is elevated today; however, she is tearful and upset. Currently taking lisinopril 5 mg once daily. BP at recent office visit with PCP was 116/64. She has significant osteoporosis. Unfortunately insurance denied Prolia, she is not a candidate for oral bisphosphates given hx of GERD and esophageal stricture. She declines moving forward with Zoledronic acid at this time. Labs are up to date and accessed via Dr. Kingston through [facility]. Denies any acute concerns. ROS Const Constitutional: Positive for fatigue and weight change (loss) ENT ENT: No dizziness/vertigo Cardio Cardiology: No chest pain at rest, chest pain with exertion, shortness of breath or palpitations Musc Musculoskeletal: Positive for joint pain Psych Psychiatric: Positive for anxiety, Positive for depression, No Thoughts of harming yourself/Others and No suicidal ideation Gastro GI: Positive for heartburn Skin Skin: No wounds Endo End (more content not included)... Normal [facility] - Hematology and Cell countsOrdered By: Millie Sharif on 05-27-2024 HbA1c (Bld) [Mass fraction] 8.5 % High 4.2-6.3 [facility] Ferritin SerPl-mCncon 2024 Ferritin [Mass/Vol] 126.0 ng/mL Normal 14.7-205.1 [facility] Comment on above: Order Comment: Speci men Type: BLOOD SPECIMENOrdering Facility: [facility] Address: [address] [place] [address] Performed By: #### 2 284-8, 2132-9, 2532-0, 2276-4 ####[facility] LABORATORYCLIA [id number] [place] [address] [place] Folate SerPl-mCncon 05-21-19 25 Folate [Mass/Vol] 3.3 ng/mL Low >4.7 [facility] Comment on above: Order Comment: Speci men Type: BLOOD SPECIMENOrdering Facility: [facility] Address: [address] [place] [address] Performed By: #### 2 284-8, 2132-9, 2532-0, 2276-4 ####[facility] LABORATORYCLIA [id number] [place] [id number] [place] Haptoglob SerPl-mCncon 05-20 Haptoglobin [Mass/Vol] 393 mg/dL High 31-238 [facility] Comment on above: Order Comment: Speci men Type: BLOOD SPECIMENOrdering Facility: [facility] Address: [address] [place] [address] Performed By: #### 4 542-7, 46671-5, K1, 12122-6 ####[facility] H[facility] SERVICESCLIA [id number] [place] [address] [place] Iron and Iron binding capaci ty panelon 05-20-2024 Iron [Mass/Vol] 31 ug/dL Low 41-186 [facility] Comment on above: Order Comment: Speci men Type: BLOOD SPECIMENOrdering Facility: [facility] Address: [address] [place] [address] Performed By: #### 4 542-7, 53660-1, K1, 10120-0 ####[facility] LABORATORYCLIA [id number] [place] [id number] [place] Iron binding capacity [Mass/Vol] 284 ug/dL Normal 232-386 [facility] Comment on above: Order Comment: Speci men Type: BLOOD SPECIMENOrdering Facility: [facility] Address: [address] [place] [address] Performed By: #### 4 542-7, 95632-1, K1, 27247-8 ####[facility] LABORATORYCLIA [id number] [place] [address] [place] Iron saturation [Mass fraction] 10.9 % Low 15.0-57.0 [facility] Comment on above: Order Comment: Speci men Type: BLOOD SPECIMENOrdering Facility: [facility] Address: [address] [place] [address] Performed By: #### 4 542-7, 29430-2, K1, 82848-8 ####[facility] LABORATORYCLIA [id number] [place] [id number] [place] LDH SerPl-cCncon 05-20-2024 LDH [Catalytic activity/Vol] 201 U/L Normal 135-214 [facility] Comment on above: Order Comment: Speci men Type: BLOOD SPECIMENOrdering Facility: [facility] Address: [address] [place] [address] Performed By: #### 2 284-8, 2132-9, 2532-0, 2276-4 ####[facility] LABORATORYCLIA [id number] [place] [address] [place] Magnesium SerPl-mCncon 05-20 Magnesium [Mass/Vol] 1.5 mg/dL Low 1.7-2.3 [facility] Comment on above: Order Comment: Speci men Type: BLOOD SPECIMENOrdering Facility: [facility] Address: [address] [place] [address] Performed By: #### 4 542-7, 83275-3, K1, 04627-4 ####[facility] LABORATORYCLIA [id number] [place] [address] [place] POTASSIUMon 05-20-2024 Potassium [Moles/Vol] 3.4 mmol/L Low 3.7-5.1 [facility] Comment on above: Order Comment: Speci men Type: BLOOD SPECIMENOrdering Facility: [facility] Address: [address] [place] [address] Performed By: #### 4 542-7, 81517-0, K1, 70972-8 ####[facility] LABORATORYCLIA [id number] [place] [address] [place] Retics #on 05-20-2024 Reticulocytes (Bld) [#/Vol] 0.80933 10*3/uL Normal 0.018-0.100 [facility] Comment on above: Order Comment: Speci men Type: BLOOD SPECIMENOrdering Facility: [facility] Address: [address] [place] [address] Performed By: #### 1 4196-0 ####[facility] LABORATORYCLIA [id number] [address] Reticulocytes (Bld) [#/Vol]o n 05-20-2024 Reticulocytes/100 RBC (Bld) 1.8 % Normal 0.4-2.0 [facility] Comment on above: Order Comment: Speci men Type: BLOOD SPECIMENOrdering Facility: [facility] Address: [address] [place] [address] Performed By: #### 1 4196-0 ####[facility] LABORATORYCLIA [id number] [address] [place] [facility] Vit B12 SerPl-mCncon 025 Cobalamin (Vitamin B12) [Mass/Vol] 632 pg/mL Normal 232-1245 [facility] Comment on above: Order Comment: Speci men Type: BLOOD SPECIMENOrdering Facility: [facility] Address: [address] [place] [address] Performed By: #### 2 284-8, 2132-9, 2532-0, 2276-4 ####[facility] LABORATORYCLIA [id number] [address] [place] CNPAlona 05-19-2024 CNPN Telephone (FAMPWS) SANJUANITA JERRY ([id number]) 1965 F Date Time Provider Department 05/19/24 ERICA HERMAN During your visit today, we recorded the following information about you: Consuelo Booth RN 05/19/2024 9:38 AM Signed Patient calls to ask if provider can place another order for stool for occult blood since the order in place has . Pended previous order not completed from 11/05/2023. Patient coming to lab on Saturday for potassium and will bulk picker at that time. JANETH Rios Christopher B, MD 05/19/2024 9:43 AM Signed Order placed as requested. Consuelo Booth RN 05/19/2024 2:41 PM Signed Call placed to patient and notified that order placed as requested. Consuelo Booth RN Allergies As of Date: 05/19/2024 (No Known Allergies) Date Reviewed: 05/13/2024 Reviewed by: Felecia Navarro LPN - Fully Assessed Reason for Visit: Orders [681] Primary Visit Diagnosis:Normocytic anemia [D64.9] Order(s):IMMUNOCHEMI SHERIF FECAL OCCULT BLOOD TEST [SQIFOBT] Order #: [id number]. #:[id number] Prescriptions as of 05/19/2024 - potassium chloride 20 mEq TbER Take 1 tablet by mouth once daily for 5 days. - ferrous sulfate 325 mg (65 mg iron) tablet Take 1 tablet by mouth once daily. - calcium carbonate (CALTRATE) 600 mg calcium (1,500 mg) tab Take 1,200 mg by mouth once daily. - atorvastatin (LIPITOR) 40 mg tablet Take 1 tablet by mouth daily at bedtime. For cholesterol. - lisinopril (ZESTRIL) 5 mg tablet Take 1 tablet by mouth once daily. - aspirin, enteric coated (ASPIRIN, ENTERIC COATED) 81 mg EC tablet Take 81 mg by mouth once daily. - albuterol HFA (PROVENTIL HFA, VENTOLIN HFA) 90 mcg/actuation inhaler Inhale 2 Puffs as instructed every 4 hours as needed for wheezing/shortness of breath. - Cholecalciferol, Vitamin D3, (VITAMIN D) 25 mcg (1,000 unit) cap Take 2 capsules by mouth once daily. Taking 2,000 units daily - glipiZIDE (GLUCOTROL) 5 mg tablet Take 5 mg by mouth two times a day before meals. - blood sugar diagnostic(TRUETRACK TEST STRIPS) Test blood sugars twice daily. - blood-glucose meter(TRUETRACK BLOOD GLUCOSE SYSTEM KIT) Test glucose as directed - blood-glucose control, low(TRUETRACK GLUCOSE SOLN) Test controls as needed - LANCETS Test blood sugars once daily, 250.00, non insulin dep Meds Comments as of 02/25/2014: Problem List As Of Date 05/19/2024 Noted Resolved COUGH [R05.9] 05/19/2007 09/29/2007 GOITER NOS [E04.9] 09/29/2007 DM type 2 with diabetic peripheral neuropathy (*09/29/2007 Anxiety [F41.9] 10/14/2009 Hypertension [I10] 01/24/2010 Depression [F32.A] 01/30/2010 Abnormal mammogram [R92.8] 07/13/2013 Gas gangrene of extremity (HCC) [A48.0] 05/31/2022 MRSA bacteremia [R78.81, B95.62] 06/04/2022 Infection due to anaerobes [A49.8] 06/04/2022 Peripherally inserted central catheter (PICC) i*06/06/2022 Coronary artery calcification [I25.10] 11/2022 S/P BKA (below knee amputation) (HCC) [Z89.519] 05/31/2022 Tobacco use disorder [F17.200] 02/01/2023 Encounter Status:Closed by CONSUELO BOOTH on 05/19/24 Normal [facility] CNCOon 05-14-2024 CNCO Letter Text Normal [facility] CBC W Auto Differential pane l (Bld)on 05-13-2024 Basophils (Bld) [#/Vol] 0.08 10*3/uL [facility] Basophils/100 WBC (Bld) 0.5 % C [facility] Differential cell count method Nom (Bld) Auto [facility] Eosinophils (Bld) [#/Vol] 0.05 10*3/uL [facility] Eosinophils/100 WBC (Bld) 0.3 % [facility] [place] Erythrocyte distribution width (RBC) [Ratio] 13.6 % 11.5 - 15.0 % [facility] Hematocrit (Bld) [Volume fraction] 24.6 % Low 36.0 - 46.0 % [facility] Hemoglobin (Bld) [Mass/Vol] 8.1 g/dL Low 11.5 - 15.5 g/dL [facility] Immature granulocytes (Bld) [#/Vol] 0.09 10*3/uL [facility] Immature granulocytes/100 WBC (Bld) 0.6 % [facility] Interpretation and review of laboratory results Abnormal [facility] Lymphocytes (Bld) [#/Vol] 1.78 10*3/uL [facility] Lymphocytes/100 WBC (Bld) 11.4 % [facility] MCH (RBC) [Entitic mass] 28.3 pg 26. 0 - 34.0 pg [facility] MCHC (RBC) [Mass/Vol] 32.9 g/dL 30.5 - 36.0 g/dL [facility] MCV (RBC) [Entitic vol] 86 fL 80.0 - 100.0 fL [facility] Monocytes (Bld) [#/Vol] 0.72 10*3/uL [facility] Monocytes/100 WBC (Bld) 4.6 % C [facility] Neutrophils (Bld) [#/Vol] 12.96 10*3/uL High [facility] Neutrophils/100 WBC (Bld) 82.6 % [facility] Nucleated RBC (Bld) [#/Vol] [facility] Nucleated RBC/100 WBC (Bld) [Ratio] 0 % /100 WBC [facility] Platelet mean volume (Bld) [Entitic vol] 9.8 fL 9.0 - 12.7 fL [facility] Platelets (Bld) [#/Vol] 389 10*3/uL [facility] RBC (Bld) [#/Vol] 2.86 10*6/uL Low 3.90 - 5.2 0 m/uL [facility] WBC (Bld) [#/Vol] 15.68 10*3/uL High [facility] Basophils (Bld) [#/Vol] 0.08 10*3/uL Normal <0.11 [facility] Comment on above: Order Comment: Speci men Type: BLOOD SPECIMENOrdering Facility: [facility] Address: [address] [place] [address] Performed By: #### 5 7021-8 ####[facility] MILLWNCLIA [id number] [place] [address] [place] Basophils/100 WBC (Bld) 0.5 % Normal C [facility] Comment on above: Order Comment: Speci men Type: BLOOD SPECIMENOrdering Facility: [facility] Address: [address] [place] [address] Performed By: #### 5 7021-8 ####[facility] HOSPITALLIA [id number] [place] [address] [place] Differential cell count method Nom (Bld) Auto Normal [facility] Comment on above: Order Comment: Speci men Type: BLOOD SPECIMENOrdering Facility: [facility] Address: [address] [place] [address] Performed By: #### 5 7021-8 ####[facility] HOSPITALLIA [id number] [place] [address] [place] Eosinophils (Bld) [#/Vol] 0.05 10*3/uL Normal <0.46 [facility] Comment on above: Order Comment: Speci men Type: BLOOD SPECIMENOrdering Facility: [facility] Address: [address] [place] [address] Performed By: #### 5 7021-8 ####[facility] HOSPITALLIA [id number] [place] [address] [place] Eosinophils/100 WBC (Bld) 0.3 % Normal [facility] Comment on above: Order Comment: Speci men Type: BLOOD SPECIMENOrdering Facility: [facility] Address: [address] [place] [address] Performed By: #### 5 7021-8 ####[facility]PITALNCLIA [id number] [place] [address] [place] Erythrocyte distribution width (RBC) [Ratio] 13.6 % Normal 11.5-15.0 [facility] Comment on above: Order Comment: Speci men Type: BLOOD SPECIMENOrdering Facility: [facility] Address: [address] [place] [address] Performed By: #### 5 7021-8 ####[facility]PITALNCH[facility] [id number] [place] [address] [place] Hematocrit (Bld) [Volume fraction] 24.6 % Low 36.0-46.0 [facility] Comment on above: Order Comment: Speci men Type: BLOOD SPECIMENOrdering Facility: [facility] Address: [address] [place] [address] Performed By: #### 5 7021-8 ####[facility]ITALNCH[facility] [id number] [place] [address] [place] Hemoglobin (Bld) [Mass/Vol] 8.1 g/dL Low 11.5-15.5 [facility] Comment on above: Order Comment: Speci men Type: BLOOD SPECIMENOrdering Facility: [facility] Address: [address] [place] [address] Performed By: #### 5 7021-8 ####[facility] HOSPITALLIA [id number] [place] [address] [place] Immature granulocytes (Bld) [#/Vol] 0.09 10*3/uL Normal <0.10 [facility] Comment on above: Order Comment: Speci men Type: BLOOD SPECIMENOrdering Facility: [facility] Address: [address] [place] [address] Performed By: #### 5 7021-8 ####[facility] HOSPITALNCLIA [id number] [place] [address] [place] Immature granulocytes/100 WBC (Bld) 0.6 % Normal [facility] Comment on above: Order Comment: Speci men Type: BLOOD SPECIMENOrdering Facility: [facility] Address: [address] [place] [address] Performed By: #### 5 7021-8 ####[facility] ALISHABONDVILLENCGLYNNA [id number] [place] [address] [place] Lymphocytes (Bld) [#/Vol] 1.78 10*3/uL Normal 1.00-4.00 [facility] Comment on above: Order Comment: Speci men Type: BLOOD SPECIMENOrdering Facility: [facility] Address: [address] [place] [address] Performed By: #### 5 7021-8 ####[facility] HOSPITALLOUISEA [id number] [place] [address] [place] Lymphocytes/100 WBC (Bld) 11.4 % Normal [facility] Comment on above: Order Comment: Speci men Type: BLOOD SPECIMENOrdering Facility: [facility] Address: [address] [place] [address] Performed By: #### 5 7021-8 ####[facility] HOSPITALNCGLYNNA [id number] [place] [address] [place] MCH (RBC) [Entitic mass] 28.3 pg Normal 26.0-34.0 [facility] Comment on above: Order Comment: Speci men Type: BLOOD SPECIMENOrdering Facility: [facility] Address: [address] [place] [address] Performed By: #### 5 7021-8 ####[facility] HOSPITALNCLIA [id number] [place] [address] [place] MCHC (RBC) [Mass/Vol] 32.9 g/dL Normal 30.5-36.0 [facility] Comment on above: Order Comment: Speci men Type: BLOOD SPECIMENOrdering Facility: [facility] Address: [address] [place] [address] Performed By: #### 5 7021-8 ####[facility] MAKINCLIA [id number] [place] [address] [place] MCV (RBC) [Entitic vol] 86.0 fL Normal 80.0-100.0 [facility] Comment on above: Order Comment: Speci men Type: BLOOD SPECIMENOrdering Facility: [facility] Address: [address] [place] [address] Performed By: #### 5 7021-8 ####[facility] HOSPITALLOUISELIA [id number] [place] [address] [place] Monocytes (Bld) [#/Vol] 0.72 10*3/uL Normal <0.87 [facility] Comment on above: Order Comment: Speci men Type: BLOOD SPECIMENOrdering Facility: [facility] Address: [address] [place] [address] Performed By: #### 5 7021-8 ####[facility] HOSPITALLIA [id number] [place] [address] [place] Monocytes/100 WBC (Bld) 4.6 % Normal [facility] Comment on above: Order Comment: Speci men Type: BLOOD SPECIMENOrdering Facility: [facility] Address: [address] [place] [address] Performed By: #### 5 7021-8 ####[facility] HOSPITALLOUISELIA [id number] [place] [address] [place] Neutrophils (Bld) [#/Vol] 12.96 10*3/uL High 1.45-7.50 [facility] Comment on above: Order Comment: Speci men Type: BLOOD SPECIMENOrdering Facility: [facility] Address: [address] [place] [address] Performed By: #### 5 7021-8 ####[facility] HOSPITALNCLIA [id number] [place] [address] [place] Neutrophils/100 WBC (Bld) 82.6 % Normal [facility] Comment on above: Order Comment: Speci men Type: BLOOD SPECIMENOrdering Facility: [facility] Address: [address] [place] [address] Performed By: #### 5 7021-8 ####[facility]OSPITALNCHUNTS[facility] [id number] [place] [address] [place] Nucleated RBC (Bld) [#/Vol] 10*3/uL Normal <0.01 [facility] Comment on above: Order Comment: Speci men Type: BLOOD SPECIMENOrdering Facility: [facility] Address: [address] [place] [address] Performed By: #### 5 7021-8 ####[facility]OSPITALNCHUNTS[facility] [id number] [place] [address] [place] Nucleated RBC/100 WBC (Bld) [Ratio] 0.0 /100 WBC Normal [facility] Comment on above: Order Comment: Speci men Type: BLOOD SPECIMENOrdering Facility: [facility] Address: [address] [place] [address] Performed By: #### 5 7021-8 ####[facility]OSPITALNCHUNTS[facility] [id number] [place] [address] [place] Platelet mean volume (Bld) [Entitic vol] 9.8 fL Normal 9.0-12.7 [facility] Comment on above: Order Comment: Speci men Type: BLOOD SPECIMENOrdering Facility: [facility] Address: [address] [place] [address] Performed By: #### 5 7021-8 ####[facility] HOSPITALNCLI [id number] [place] [address] [place] Platelets (Bld) [#/Vol] 389 10*3/uL Normal 150-400 [facility] Comment on above: Order Comment: Speci men Type: BLOOD SPECIMENOrdering Facility: [facility] Address: [address] [place] [address] Performed By: #### 5 7021-8 ####[facility] HOSPITALNCLIA [id number] [place] [address] [place] RBC (Bld) [#/Vol] 2.86 10*6/uL Low 3.90-5.20 [facility] Comment on above: Order Comment: Speci men Type: BLOOD SPECIMENOrdering Facility: [facility] Address: [address] [place] [address] Performed By: #### 5 7021-8 ####[facility] HOSPITALNCLIA [id number] [place] [address] [place] WBC (Bld) [#/Vol] 15.68 10*3/uL High 3.70-11.00 [facility] Comment on above: Order Comment: Speci men Type: BLOOD SPECIMENOrdering Facility: [facility] Address: [address] [place] [address] Performed By: #### 5 7021-8 ####[facility] HOSPITALNCLIA [id number] [place] [address] [place] CNOVon 05-13-2024 CNOV Office Visit (FAMPWS) SANJUANITA JERRY ([id number]) 1965 F Date Time Provider Department 05/13/24 11:00 AM ERICA HERMANPWS During your visit today, we recorded the following information about you: Pulse Respiration Blood pressure Weight 102/minute 16/minute 116/64 43.5 kg Erica Herman MD 05/13/2024 12:10 PM Signed Chief Complaint Patient presents with: Follow Up: 6 month HPI Sanjuanita Jerry is a 58 year old female who presents here today for Above Complaints. Patient has been in good health without recent hospitalizations, ER visits, or falls. No concerns today. Patient states she continues to wear prosthesis for right BKA. Has history of wound and gas gangrene without signs of recurrence. No longer following up with ortho. Denies fever/chills, swelling, erythema, drainage. Seeing Dr. Long for callus of left foot and ulceration of left 4th toe which has healed. No changes today. Wearing toe cap and has f/u appointment scheduled. BP well controlled on current regimen. Does not check BP at home. Taking lisinopril as prescribed without side effects. Denies headaches, chest pain, SOB, palpitations. DM managed by Dr. Wan Madrigal's office. Last OV about 5 weeks ago and has f/u in May. Reports A1c of 8.2. Taking Glipizide without side effects or hypoglycemia. Stopped metformin due to diarrhea. Checking sugars daily with readings in the 120-210 when fasting. 209 this morning. Has not notified endocrinology of high readings. Still smoking about 1/4 pack per day. Not interested in quitting. Overdue for lung cancer screening. Has FOBT kit at home for colon cancer screening. Will complete and bring this in. Past medical history, appointments, medications, allergies reviewed. Previous Medical History PAST MEDICAL HISTORY Diagnosis Date Cataracts, bilateral s/p surgery in 2021 at [facility] Coronary artery calcification 11/[address] chest Diabetic neuropathy (HCC) Gas gangrene of lower extremity (HCC) Goiter, unspecified 09/29/2007 Known medical problems rt BKA PAD (peripheral artery disease) (HCC) S/P BKA (below knee amputation) ([facility]) 05/31/2022 right Tobacco use disorder Type II or unspecified type diabetes mellitus without mention of complication, uncontrolled Endo: Dr. Madrigal Previous Surgical History PAST SURGICAL HISTORY Procedure Laterality Date APPENDECTOMY HX 80s CATARACT EXTRACTION HX Bilateral 04/2022 EGD W/O BRSH SPEC VARICIES INJ 2019 with esophageal dilation LEG AMPUTATION HX Right 06/03/2022 BKA PAST SURGICAL HISTORY OF Lt thumb straightened Family History FAMILY HISTORY Problem Relation Age of Onset Stroke Mother Ischemic Heart Disease Mother Diabetes Mother Hypertension Mother Stroke Father Ischemic Heart Disease Father Hypertension Father Diabetes Father Kidney failure Sister Ischemic Heart Disease Brother Massive AR at age 38 Breast Cancer Paternal Grandmother Patient Allergies ALLERGIES No Known Allergies Current Medications Current Outpatient Medications on File Prior to Visit Medication Sig ferrous sulfate 325 mg (65 mg iron) tablet Take 1 tablet by mouth once daily. calcium carbonate (CALTRATE) 600 mg calcium (1,500 mg) tab Take 1,200 mg by mouth once daily. aspirin, enteric coated (ASPIRIN, ENTERIC COATED) 81 mg EC tablet Take 81 mg by mouth once daily. albuterol HFA (PROVENTIL HFA, VENTOLIN HFA) 90 mcg/actuation inhaler Inhale 2 Puffs as instructed every 4 hours as needed for wheezing/shortness of breath. glipiZIDE (GLUCOTROL) 5 mg tablet Take 5 mg by mouth two times a day before meals. blood sugar diagnostic(SwitchboardCK TEST STRIPS) Test blood sugars twice daily. blood-glucose meter(Element ID BLOOD GLUCOSE SYSTEM KIT) Test glucose as directed blood-glucose control, low(SwitchboardCK GLUCOSE SOLN) Test controls as needed LANCETS Test blood sugars once daily, 250.00, non insulin dep atorvastatin (LIPITOR) 40 mg tablet Take 1 tablet by mouth daily at bedtime. For cholesterol. lisinopril (ZESTRIL) 5 mg tablet Take 1 tablet by mouth once daily. Cholecalciferol, Vitamin D3, (VITAMIN D) 25 mcg (1,000 unit) cap Take 2 capsules by mouth once daily. Taking 2,000 units daily No current facility-administere d medications on file prior to visit. Social History Social History Tobacco Use Smoking status: Every Day Current packs/day: 0.50 Average packs/day: 0.5 packs/day for 45.2 years (22.6 ttl pk-yrs) Types: Cigarettes Start date: 03/18/1979 Smokeless tobacco: Never Vaping Use Vaping status: Never Used Substance Use Topics Alcohol use: No Drug use: No Review of Symptoms REVIEW OF SYSTEMS GENERAL: No weight loss, malaise or fevers RESPIRATORY: Negative for cough, hemoptysis, wheezing, COPD, dyspnea or shortness of breath CARDIOVASCULAR: Negative for chest pain, leg (more content not included)... Normal [facility] metabolic 2000 panelOrdered By: Sarah Webb on 05-13-2024 Albumin [Mass/Vol] 3.5 g/dL Low 3.9 - 4.9 g/dL [facility] ALP [Catalytic activity/Vol] 103 U/L 34 - 123 U/L [facility] ALT [Catalytic activity/Vol] U/L Low 7 - 38 U/L [facility] Anion gap [Moles/Vol] 15 mmol/L 8 - 15 mmol/L [facility] AST [Catalytic activity/Vol] 6 U/L Low 13 - 35 U/L [facility] Bilirubin [Mass/Vol] 0.3 mg/dL 0.2 - 1 .3 mg/dL [facility] Calcium [Mass/Vol] 9.7 mg/dL 8.5 - 10. 2 mg/dL [facility] Chloride [Moles/Vol] 93 mmol/L Low 98 - 10 7 mmol/L [facility] CO2 [Moles/Vol] 27 mmol/L 22 - 30 mmol/L [facility] Creatinine [Mass/Vol] 0.75 mg/dL 0.58 - 0.96 mg/dL [facility] GFR/1.73 sq M.predicted among non-blacks MDRD (S/P/Bld) [Vol rate/Area] 93 mL/min/{1.73_m2} - PINF [facility] Comment on above: Estimated Glomerular Filtration Rate (eGFR) is calculated using the 2020 CKD-EPI creatinine equation. This equation utilizes serum creatinine, sex, and age as parameters. The creatinine assay has traceable calibration to isotope dilution-mass spectrometry. Refer to KDIGO guidelines for clinical interpretation. In patients with unstable renal function, e.g. those with acute kidney injury, the eGFR may not accurately reflect actual GFR. Glucose [Mass/Vol] 254 mg/dL High 74 - 99 mg/dL [facility] Comment on above: The [place] Diabete s Association (ADA) provides guidance for cutoff values for fasting glucose and random glucose. The ADA defines fasting as no caloric intake for at least 8 hours. Fasting plasma glucose results between 100 to 125 mg/dL indicate increased risk for diabetes (prediabetes). Fasting plasma glucose results greater than or equal to 126 mg/dL meet the criteria for diagnosis of diabetes. In the absence of unequivocal hyperglycemia, results should be confirmed by repeat testing. In a patient with classic symptoms of hyperglycemia or hyperglycemic crisis, random plasma glucose results greater than or equal to 200 mg/dL meet the criteria for diagnosis of diabetes. Reference: Standards of Medical Care in Diabetes 2016, [place] [employer] Association. Diabetes Care. 2016.39(Suppl 1). Interpretation and review of laboratory results Abnormal [facility] Potassium [Moles/Vol] 3 mmol/L Low 3.7 - 5.1 mmol/L [facility] Protein [Mass/Vol] 7.3 g/dL 6.3 - 8.0 g/dL [facility] Sodium [Moles/Vol] 135 mmol/L Low 136 - 144 mmol/L [facility] Urea nitrogen [Mass/Vol] 7 mg/dL 7 - 21 mg/d L [facility] Comprehensive metabolic 2000 panelon 05-13-2024 Albumin [Mass/Vol] 3.5 g/dL Low 3.9-4.9 [facility] Comment on above: Order Comment: Gil sexton Type: BLOOD SPECIMENOrdering Facility: [facility] Address: [address] [place] [address] Performed By: #### 2 4323-8 ####[facility] HOSPITALA [id number] [place] [address] [place]#### LIPNF ####[facility] LABORATORYCLIA [id number] [place] [address] [place] ALP [Catalytic activity/Vol] 103 U/L Normal 34-123 [facility] Comment on above: Order Comment: Nileshi darshan Type: BLOOD SPECIMENOrdering Facility: [facility] Address: [address] [place] [address] Performed By: #### 2 4323-8 ####[facility] HOSPITALA [id number] [place] [address] [place]#### LIPNF ####[facility] LABORATORYCLIA [id number] [place] [address] [place] ALT [Catalytic activity/Vol] U/L Low 7-38 [facility] Comment on above: Order Comment: Nileshi darshan Type: BLOOD SPECIMENOrdering Facility: [facility] Address: [address] [place] [address] Performed By: #### 2 4323-8 ####[facility] MILLTOWNCLIA [id number] [place] [address] [place]#### LIPNF ####[facility] LABORATORYCLIA [id number] [address] [place] Anion gap [Moles/Vol] 15 mmol/L Normal 8-15 [facility] Comment on above: Order Comment: Speci men Type: BLOOD SPECIMENOrdering Facility: [facility] Address: [address] [place] [address] Performed By: #### 2 4323-8 ####[facility] MIRAMARWNCLIA [id number] [place] [address] [place]#### LIPNF ####[facility] LABORATORYCLIA [id number] [address] [place] AST [Catalytic activity/Vol] 6 U/L Low 13-35 [facility] Comment on above: Order Comment: Speci men Type: BLOOD SPECIMENOrdering Facility: [facility] Address: [address] [place] [address] Performed By: #### 2 4323-8 ####[facility] MIRAMARWNCLIA [id number] [address] [place]#### LIPNF ####[facility] LABORATORYCLIA [id number] [place] [address] [place] Bilirubin [Mass/Vol] 0.3 mg/dL Normal 0.2-1.3 [facility] Comment on above: Order Comment: Speci men Type: BLOOD SPECIMENOrdering Facility: [facility] Address: [address] [place] [address] Performed By: #### 2 4323-8 ####[facility] MILLTOWNCLIA [id number] [place] [address] [place]#### LIPNF ####[facility] LABORATORYCLIA [id number] [place] [address] [place] Calcium [Mass/Vol] 9.7 mg/dL Normal 8.5-10.2 [facility] Comment on above: Order Comment: Speci men Type: BLOOD SPECIMENOrdering Facility: [facility] Address: [address] [place] [address] Performed By: #### 2 4323-8 ####[facility] MILLTOWNCLIA [id number] [place] [address] [place]#### LIPNF ####[facility] LABORATORYCLIA [id number] [place] [address] [place] Chloride [Moles/Vol] 93 mmol/L Low 98-107 [facility] Comment on above: Order Comment: Speci men Type: BLOOD SPECIMENOrdering Facility: [facility] Address: [address] [place] [address] Performed By: #### 2 4323-8 ####[facility] MIRAMARWNCLIA [id number] [place] [address] [place]#### LIPNF ####[facility] LABORATORYCLIA [id number] [place] [address] [place] CO2 [Moles/Vol] 27 mmol/L Normal 22-30 [facility] Comment on above: Order Comment: Speci men Type: BLOOD SPECIMENOrdering Facility: [facility] Address: [address] [place] [address] Performed By: #### 2 4323-8 ####[facility] MILLTOWNCLIA [id number] [place] [address] [place]#### LIPNF ####[facility]ORATORYCLIA [id number] [place] [address] [place] Creatinine [Mass/Vol] 0.75 mg/dL Normal 0.58-0.96 [facility] Comment on above: Order Comment: Gil sexton Type: BLOOD SPECIMENOrdering Facility: [facility] Address: [address] [place] [address] Performed By: #### 2 4323-8 ####[facility] [id number] [place] [address] [place]#### LIPNF ####[facility] LABORATORYIA [id number] [address] Creatinine and Glomerular filtration rate.predicted panel (S/P/Bld) 93 mL/min/1.73m??? Normal >=60 [facility] Comment on above: Order Comment: Gil sexton Type: BLOOD SPECIMENOrdering Facility: [facility] Address: [address] [place] [address] Result Comment: Judy mated Glomerular Filtration Rate (eGFR) is calculated using the 2020 CKD-EPI creatinine equation. This equation utilizes serum creatinine, sex, and age as parameters. The creatinine assay has traceable calibration to isotope dilution-mass spectrometry. Refer to KDIGO guidelines for clinical interpretation. In patients with unstable renal function, e.g. those with acute kidney injury, the eGFR may not accurately reflect actual GFR. Performed By: #### 2 4323-8 ####[facility] HOSPITALNCA [id number] [place] [address] [place]#### LIPNF ####[facility] LABORATORYIA [id number] [address] [place] Glucose [Mass/Vol] 254 mg/dL High 74-99 [facility] Comment on above: Order Comment: Gil sexton Type: BLOOD SPECIMENOrdering Facility: [facility] Address: [address] [place], [place] [id number] Result Comment: The [place] Diabetes Association (ADA) provides guidance for cutoff values for fasting glucose and random glucose. The ADA defines fasting as no caloric intake for at least 8 hours. Fasting plasma glucose results between 100 to 125 mg/dL indicate increased risk for diabetes (prediabetes). Fasting plasma glucose results greater than or equal to 126 mg/dL meet the criteria for diagnosis of diabetes. In the absence of unequivocal hyperglycemia, results should be confirmed by repeat testing. In a patient with classic symptoms of hyperglycemia or hyperglycemic crisis, random plasma glucose results greater than or equal to 200 mg/dL meet the criteria for diagnosis of diabetes. Reference: Standards of Medical Care in Diabetes 2016, [place] Diabetes Association. Diabetes Care. 2016.39(Suppl 1). Performed By: #### 2 4323-8 ####[facility] MILLTOWNCLIA [id number] [place] [address] [place]#### LIPNF ####[facility] LABORATORYCLIA [id number] [address] [place] Potassium [Moles/Vol] 3.0 mmol/L Low 3.7-5.1 [facility] Comment on above: Order Comment: Speci men Type: BLOOD SPECIMENOrdering Facility: [facility] Address: [address] [place] [address] Performed By: #### 2 4323-8 ####[facility] H[facility]PITALLIA [id number] [place] [address] [place]#### LIPNF ####[facility] LABORATORYCLIA [id number] [place] [address] [place] Protein [Mass/Vol] 7.3 g/dL Normal 6.3-8.0 [facility] Comment on above: Order Comment: Speci men Type: BLOOD SPECIMENOrdering Facility: [facility] Address: [address] [place] [address] Performed By: #### 2 4323-8 ####[facility] MIRAMARWNCLIA [id number] [place] [address] [place]#### LIPNF ####[facility] LABORATORYCLIA [id number] [place] [address] [place] Sodium [Moles/Vol] 135 mmol/L Low 136-144 [facility] Comment on above: Order Comment: Speci men Type: BLOOD SPECIMENOrdering Facility: [facility] Address: [address] [place] [address] Performed By: #### 2 4323-8 ####[facility] MILLTOWNCLIA [id number] [place] [address] [place]#### LIPNF ####[facility]ORATORYCLIA [id number] [address] [place] Urea nitrogen [Mass/Vol] 7 mg/dL Normal 7-21 [facility] Comment on above: Order Comment: Speci men Type: BLOOD SPECIMENOrdering Facility: [facility] Address: [address] [place] [address] Performed By: #### 2 4323-8 ####[facility]ITALNCLIA [id number] [address] [place]#### LIPNF ####[facility]ORATORYCLIA [id number] [address] OF [facility] LIPID PANEL, NONFASTINGon Cholesterol [Mass/Vol] 139 mg/dL Normal <200 [facility] Comment on above: Order Comment: Speci men Type: BLOOD SPECIMENOrdering Facility: [facility] Address: [address] [place] [address] Result Comment: <200 mg/dL, Desirable 200-239 mg/dL, Borderline high >239 mg/dL, High Performed By: #### 2 4323-8 ####[facility]ITALNCLIA [id number] [place] [address] [place]#### LIPNF ####[facility]ORATORYCLIA [id number] [place] [address] [place] HDL CHOLESTEROL, NF 66 mg/dL Normal >39 [facility] Comment on above: Order Comment: Speci men Type: BLOOD SPECIMENOrdering Facility: [facility] Address: [address] [place] [address] Result Comment: 40-5 9 mg/dL, Acceptable >59 mg/dL, High: Negative risk factor for coronary heart disease <40 mg/dL, Low: Positive risk factor for coronary heart disease Performed By: #### 2 4323-8 ####[facility]ITALLIA [id number] [address]#### LIPNF ####[facility] LABORATORYCLIA [id number] [address] LDL CHOLESTEROL, NF 48 mg/dL Normal <100 [facility] Comment on above: Order Comment: [place] [facility] Type: BLOOD SPECIMENOrdering Facility: [facility] Address: [address] [place] [address] Result Comment: <100 mg/dL, Optimal 100-129 mg/dL, Near optimal/above optimal 130-159 mg/dL, Borderline high 160-189 mg/dL, High >189 mg/dL, Very high Secondary prevention optimal LDL Cholesterol levels are recommended to be < 70 mg/dL Performed By: #### 2 4323-8 ####[facility]ITALA [id number] [address]#### LIPNF ####[facility] LABORATORYCLIA [id number] [address] LDL/HDL RATIO, NF 0.73 mg/dL Normal <2.54 [facility] Comment on above: Order Comment: Gil [facility] Type: BLOOD SPECIMENOrdering Facility: [facility] Address: [address] [place] [address] Result Comment: Bassem bruce: 1. National Cholesterol Education Program ATP III Guideline At-A-Glance Quick Desk Reference: National Heart, Lung, and Blood [place]. National Institutes of Health. 2001: NIH Publication No. 01-3305. 2. An International Atherosclerosis Society position paper: global recommendations for the management of dyslipidemia: executive summary, Atherosclerosis. 2014: 232(2):410-413. Performed By: #### 2 4323-8 ####[facility] MIRAMARWNCLIA [id number] [place] [address] [place]#### LIPNF ####[facility] LABORATORYCLIA [id number] [address] [place] NON HDL CHOL, NF 73 mg/dL Normal <130 [facility] Comment on above: Order Comment: Speci men Type: BLOOD SPECIMENOrdering Facility: [facility] Address: [address] [place] [address] Result Comment: <130 mg/dL, Optimal 130-159 mg/dL, Near optimal/above optimal 160-189 mg/dL, Borderline high 190-219 mg/dL, High >219 mg/dL, Very high Secondary prevention optimal non HDL Cholesterol levels are recommended to be <100 mg/dL Performed By: #### 2 4323-8 ####[facility]ITALLIA [id number] [place] [address] [place]#### LIPNF ####[facility] LABORATORYCLIA [id number] [address] [place] T CHOL/HDL RATIO NF 2.11 mg/dL Normal <5.10 [facility] Comment on above: Order Comment: Speci men Type: BLOOD SPECIMENOrdering Facility: [facility] Address: [address] [place] [address] Performed By: #### 2 4323-8 ####[facility]ITALLIA [id number] [address] [place]#### LIPNF ####[facility] LABORATORYCLIA [id number] [address] [place] TRIGLYCERIDES, NF 125 mg/dL Normal <150 [facility] Comment on above: Order Comment: Speci men Type: BLOOD SPECIMENOrdering Facility: [facility] Address: [address] [id number] Result Comment: <150 mg/dL, Normal 150-199 mg/dL, Borderline high 200-499 mg/dL, High >499 mg/dL, Very high Performed By: #### 2 4323-8 ####[facility]ALLIA [id number] [address] STATES [facility]#### LIPNF ####[facility]ORATORYCLIA [id number] [address] [place] VLDL CHOLESTEROL, NF 25 mg/dL Normal <30 [facility] Comment on above: Order Comment: Speci men Type: BLOOD SPECIMENOrdering Facility: [facility] Address: [address] [place] [address] Performed By: #### 2 4323-8 ####[facility]ITALA [id number] [address]#### LIPNF ####[facility]ORATORYCLIA [id number] [address] [place] PVR ANK PRESS UNL VAS LABon 05-05-2024 PVR ANK PRESS UNL VAS LAB Non-Invasive Vascular Laboratory [facility] Lower Extremity Arterial Physiology Study Unilateral - Left Date of service/time: 05/05/2024 9:53:18 AM Name: MS. SANJUANITA JERRY Date of : 1965 Age: 58 years Gender: F Clinical Indication Decreased pulses. TECHNIQUE -------- An arterial physiological examination was performed, including measurement of blood pressures using continuous wave Doppler and recording of plethysmographic with or without Doppler waveforms at the below-mentioned limb segments. FINDINGS -------- RIGHT SIDE AT REST Right Pressures Brachial: 162 mmHg Ankle dorsalis pedis: Below knee amputation. Ankle posterior tibial: Below knee amputation. LEFT SIDE AT REST Left Doppler Waveforms Dorsalis pedis: Multiphasic. Post tibial: Multiphasic. Left Pressures Brachial: 165 mmHg Ankle dorsalis pedis: 182 mmHg RASHID: 1.10 Ankle posterior tibial: 183 mmHg RASHID: 1.11 Digit: 117 mmHg Left PVR Waveforms Ankle: Normal. Digit: Normal. IMPRESSION Compared to prior study of 09/26/2020, Left ankle brachial index was 1.12 and TBI was 0.73. RIGHT SIDE Resting right ankle brachial index: Below knee amputation. Right ankle: Below knee amputation. LEFT SIDE Resting left ankle brachial index: 1.11 Left toe brachial index: 0.71 Normal ankle brachial index at rest in the left leg. Normal toe brachial index at rest in the left leg. Left ankle: Normal at rest. Technologist: Marnie Barber RVT, RDMS Ordering physician: KEDAR LONG Interpreting physician: TRUONG Kyle DO Final CC All [employer] Medical Image : [id number] See Link below for Image Normal [facility] CNOVon 04-16-2024 CNOV Office Visit (PODIWS) SANJUANITA JERRY ([id number]) 1965 F Date Time Provider Department 04/16/24 11:00 AM KEDAR LONG PODIWS During your visit today, we recorded the following information about you: Emelyn Cee LPN 04/16/2024 11:34 AM Signed AMB ROOMING INTAKE FLOWSHEET DATA Patient presents with: Left 4th Toe - Established Patient, Follow Up, Ulcer Patient states toe spacer did not stay in place. Patient has been using toe cap FARIDA Villeda Matthew 04/16/2024 11:34 AM Signed FOLLOW UP PODIATRIC OFFICE VISIT Chief Complaint: This 58 year old who presents for follow up:ulceration of left 4th toe Patient presents to clinic for follow-up left 4th toe ulceration Is using toe cap on the 5th toe The gel interspace cap tends to fall out She feels the wound of left 4th toe is healing. PAIN EVALUATION No data found in the last 1 encounters. Hemoglobin A1C Date Value Ref Range Status 05/31/2022 8.5 (H) 4.3 - 5.6 % Final Comment: [place] Diabetes Association guidelines indicate that patients with HgbA1c in the range 5.7-6.4% are at increased risk for development of diabetes, and intervention by lifestyle modification may be beneficial. HgbA1c greater or equal to 6.5% is considered diagnostic of diabetes. PCP: Erica Herman MD PAST MEDICAL HISTORY Diagnosis Date Cataracts, bilateral s/p surgery in 2021 at [facility] Coronary artery calcification 11/[address] chest Diabetic neuropathy ([facility]) Gas gangrene of lower extremity ([facility]) Goiter, unspecified 09/29/2007 Known medical problems rt BKA PAD (peripheral artery disease) ([facility]) S/P BKA (below knee amputation) ([facility]) 05/31/2022 right Tobacco use disorder Type II or unspecified type diabetes mellitus without mention of complication, uncontrolled Endo: Dr. Madrigal Current Outpatient Medications Medication Sig ferrous sulfate 325 mg (65 mg iron) tablet Take 1 tablet by mouth once daily. calcium carbonate (CALTRATE) 600 mg calcium (1,500 mg) tab Take 1,200 mg by mouth once daily. atorvastatin (LIPITOR) 40 mg tablet Take 1 tablet by mouth daily at bedtime. For cholesterol. lisinopril (ZESTRIL) 5 mg tablet Take 1 tablet by mouth once daily. aspirin, enteric coated (ASPIRIN, ENTERIC COATED) 81 mg EC tablet Take 81 mg by mouth once daily. albuterol HFA (PROVENTIL HFA, VENTOLIN HFA) 90 mcg/actuation inhaler Inhale 2 Puffs as instructed every 4 hours as needed for wheezing/shortness of breath. Cholecalciferol, Vitamin D3, (VITAMIN D) 25 mcg (1,000 unit) cap Take 2 capsules by mouth once daily. Taking 2,000 units daily glipiZIDE (GLUCOTROL) 5 mg tablet Take 5 mg by mouth two times a day before meals. blood sugar diagnostic(TRUETRACK TEST STRIPS) Test blood sugars twice daily. blood-glucose meter(TRUETRACK BLOOD GLUCOSE SYSTEM KIT) Test glucose as directed blood-glucose control, low(TRUETRACK GLUCOSE SOLN) Test controls as needed LANCETS Test blood sugars once daily, 250.00, non insulin dep No current facility-administere d medications for this visit. ALLERGIES No Known Allergies PAST SURGICAL HISTORY Procedure Laterality Date APPENDECTOMY HX 80s CATARACT EXTRACTION HX Bilateral 04/2022 EGD W/O BRSH SPEC VARICIES INJ 2019 with esophageal dilation LEG AMPUTATION HX Right 06/03/2022 BKA PAST SURGICAL HISTORY OF Lt thumb straightened Physical Exam: OBJECTIVE: Constitutional: Pt is a well developed 58 year old female who is alert, oriented, cooperative and in no apparent distress. Eyes: Following during examination. No redness or drainage. Respiratory: RR normal and nonlabored. Even breathing. No evidence of distress. Psychology: Patient is engaged during conversation. Normal affect and mood. Does not appear depressed or anxious. NVSI unchanged from previous visit. 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 It is now healed I had long discussion with patient regarding the cause of this ulceration or callus. She has hammertoe of left 5th toe and any rubbing may lead to callus. Options discussed include use of gel padding or lambs wool and periodic debridement of callus vs some form of surgery. Surgical options discussed today include derotational arthroplasty of left 5th toe, arthroplasty of left 4th toe or even amputation of left 5th toe. At this time, she is willing to continue with conservati (more content not included)... Normal [facility] CNOVon 04-02-2024 CNOV Office Visit (PODIWS) CLARITZASANJUANITA Chanel ([id number]) 1965 F Date Time Provider Department 04/02/24 10:30 AM KEDAR LONG PODIWChanel During your visit today, we recorded the following information about you: Emelyn Cee LPN 04/02/2024 12:21 PM Signed AMB ROOMING INTAKE FLOWSHEET DATA Patient presents with: Right Foot - Follow Up FARIDA Villeda Matthew 04/02/2024 11:08 AM Addendum Diabetes Foot Care Instructions When you have diabetes, proper foot care is very important. Poor foot care may lead to amputation of a foot or leg. As a person with diabetes, you are more vulnerable to foot problems, because diabetes can damage your nerves and reduce blood flow to your feet. Here are some diabetes foot care tips to follow: Wash and Dry Your Feet Daily Use mild soaps Use warm water Pat your skin dry; do not rub. Thoroughly dry your feet. After washing, use lotion on your feet to prevent cracking. Do not put lotion between your toes. Examine Your Feet Each Day Check the tops and bottoms of your feet. Have someone else look at your feet if you cannot see them. Check for dry, cracked skin. Look for blisters, cuts, scratches, or other sores. Check for redness, increased warmth, or tenderness when touching any area of your feet. Check for ingrown toenails, corns, and calluses. If you get a blister or sore from your shoes, do not "pop" it. Apply a bandage and wear a different pair of shoes. Take Care of Your Toenails Cut toenails after bathing, when they are soft. Cut toenails straight across and smooth with a nail file. Avoid cutting into the corners of toes. Do not cut cuticles. If you have neuropathy (or decreased sensation in your feet) a neonatal intensive care nurse should always cut your toenails. Be Careful When Exercising Walk and exercise in comfortable shoes. Do not exercise when you have open sores on your feet. Protect Your Feet With Shoes and Socks Never go barefoot. Always protect your feet by wearing shoes or hard-soled slippers or footwear. Avoid shoes with high heels and pointed toes. Avoid shoes that expose your toes or heels (such as open-toed shoes or sandals). These types of shoes increase your risk for injury and potential infections. Try on new footwear with the type of socks you usually wear. Do not wear new shoes for more than an hour at a time. Change your socks daily. Look and feel inside your shoes before putting them on to make sure there are no foreign objects or rough areas. Avoid tight socks. Wear natural-fiber socks (cotton, wool, or a cotton-wool blend). Wear special shoes if your health care provider recommends them. Wear shoes/boots that will protect your feet from various weather conditions (cold, moisture, etc.). Make sure your shoes fit properly. If you have neuropathy (nerve damage), you may not notice that your shoes are too tight. Perform the footwear test described below. Footwear Test Use this simple test to see if your shoes fit correctly: Stand on a piece of paper. (Make sure you are standing and not sitting, because your foot changes shape when you stand.) Trace the outline of your foot. Trace the outline of your shoe. Compare the tracings: Is the shoe too narrow? Is your foot crammed into the shoe? The shoe should be at least 1/2 inch longer than your longest toe and as wide as your foot. Proper Shoe Choices The following types of shoes are best for people with diabetes Closed toes and heels Leather uppers without a seam inside At least 1/2 inch extra space at the end of your longest toe Inside of shoe should be soft with no rough areas Outer sole should be made of stiff material Shoes should be at least as wide as your feet Tips for Foot Care in Diabetes Don't wait to treat a minor foot problem if you have diabetes. Follow your health care provider's guidelines and first aid guidelines. Report foot injuries and infections to your health care provider immediately. Check water temperature with your elbow, not your foot. Do not use a heating pad on your feet. Do not cross your legs. Do not self-treat your corns, calluses, or other foot problems. Go to your health care provider or neonatal intensive care nurse to treat these conditions. Can use toe cap during the day. Can remove at night. Place on the 5th toe and this will to avoid rubbing on the 4th toe. If you notice increased whitening between the toes (maceration/moisture ), stop using and continue with lambs wool Kedar Long 04/02/2024 12:21 PM Signed Last saw pcp: 11/05/23 Subjective: Patient presents to clinic c/o painful toenails. They state that the nails are especially painful with shoe gear and pressure. Patient admits to being diabetic. Does often develop callus. Uses lambs wool between toes and files the callus with pet egg. No other pedal complaints at this time. Patient s (more content not included)... Normal [facility] XR FOOT 3V AP/LAT/OBL LTon 0 04-02-2024 XR FOOT 3V AP/LAT/OBL LT * * *Final Repo rt* * * DATE OF EXAM: Apr 02 2024 11:49AM WRX [id number] - XR FOOT 3V AP/LAT/OBL LT / PROCEDURE REASON: Hammertoe of left foot * * * * Physician Interpretation * * * * Left foot HISTORY: 58 years old Clinical information: Hammertoe of left foot PT STATES HAMMER TOE LEFT FOOT 5TH TOE TECHNIQUE: Images: XR FOOT 3V AP/LAT/OBL LT Comparison: None. RESULT: Findings: No fracture or dislocation is evident. Mild flexion at the proximal interphalangeal joints IMPRESSION: No acute bony finding. Health Care Social Worker: PSCB Transcribe Date/Time: Apr 06 2024 3:51P Dictated by : VIRGINIA GERBER MD This examination was interpreted and the report reviewed and electronically signed by: VIRGINIA GERBER MD on Apr 06 2024 3:53PM EST [id number] CN Normal [facility] Endocrinology Visit Reporton 02-24-2024 Endocrinology Visit Report [facility] [address] [place] [address] OFFICE VISIT Date of Service: 02/24/24 MR#: [id number] Acct: [id number] Name: SANJUANITA JERRY Rep #: [id number] : 1965 Provider: SINA morton Age/Sex: 58/F Location: [facility] Status: Signed Intake Vital Signs 09/11/23 11:04 02/24/24 09:57 Height 5 ft 5 ft Weight: 96 lb 101 lb BMI 18.7 19.7 BP 108/66 144/79 H Blood Pressure Location Lt brachial Lt brachial Position Sitting Sitting Pulse 106 H 98 Pulse Source Monitor Monitor Pulse Oximetry (%) 98 99 Oxygen Delivery Method room air room air Intake Visit Reasons: 3 M FU Chief Complaint: f/u diabetes Is patient in pain?: No Allergies No Known Allergies Allergy (Verified 09/11/23 11:09) Medications ???Medication ???Instructions ???Recorded ???Confirmed ???Type albuterol sulfate 90 mcg/actuation 2 puff inhalation Q4H PRN Sob /Or 10/01/18 02/24/24 History aerosol inhaler Wheezing dapagliflozin propanediol 10 mg 10 mg PO DAILY blood sugars 09/20/22 02/24/24 History tablet (Farxiga) atorvastatin 40 mg tablet 40 mg PO QHS cholesterol 02/26/23 02/24/24 History cholecalciferol (vitamin D3) 25 25 mcg PO DAILY supplement 02/26/23 02/24/24 History mcg (1,000 unit) tablet ferrous sulfate 325 mg (65 mg 325 mg PO DAILY supplement 02/26/23 02/24/24 History iron) tablet (FeroSul) lisinopril 5 mg tablet 5 mg PO DAILY blood pressure 02/26/23 02/24/24 History glipizide 5 mg tablet 5 mg PO BID #60 tabs 04/17/23 02/24/24 Rx True Metrix Glucose Test Strip #50 ea 08/19/23 02/24/24 Rx (blood sugar diagnostic) blood-glucose meter (True Metrix #1 ea 08/19/23 02/24/24 Rx Glucose Meter) [facility] Medical History Smoker Cellulitis and abscess of right lower extremity Type 2 diabetes mellitus with hyperglycemia, without long-term current use of insulin Sinus tachycardia seen on traffic monitor specialist Below knee amputation Dysphagia Acid reflux Diabetes Surgical History History of appendectomy Status post below knee amputation of right lower extremity history EGD with dilatation S/P appendectomy H/O thumb surgery Family History Grandmother Breast cancer Father Heart disease Hypertension Sister Thyroid disorder Aunt Thyroid disorder Other Arthritis CVA (cerebral vascular accident) Kidney disease Myocardial infarction Social History household members: family Smoking Status: Current every day smoker tobacco type: cigarettes alcohol intake: never substance use type: does not use what type of physical activity do you participate in: walking HPI HPI Chief Complaint: f/u diabetes Details: SANJUANITA JERRY, is a 58 F who presents to the office today for evaluation and management of diabetes and osteoporosis. A1C today is 8.7%, increased from 09/11/23 at 7.2%. She has gained 5 lbs. After reviewing medications, patient admits that she has not taken her metformin for greater than 1 year, despite having told me 6 months ago she was. Reports she had persistent diarrhea with use. Initially she states that she is compliant with glipizide; however, after confronting her with refill history, she admits that she only takes glipizide 5 mg in AM if fasting bgl is >150. She does not take an evening glipizide as prescribed. She states that she is compliant with Farxiga 10 mg once daily. When asked why she is not taking her medications properly, she states I don't like taking pills." She has a history of poor compliance with medications. Denies any blood sugars <70. She had DEXA scan in September with a T-score of -3.5 in RFN. Unfortunately; Prolia was denied by insurance. She has esophageal strictures and GERD, she is not a candidate for oral bisphosphonate us e. She is hesitant to pursue zoledronic acid. Reports compliance with vitamin D and calcium supplements. BP slightly elevated. She is prescribed lisinopril 5 mg once daily, I am not convinced that she is taking this routinely or at all. Labs are up to date. Denies any acute concerns. ROS Const Constitutional: Positive for fatigue; No weight change ENT ENT: No dizziness/vertigo Cardio Cardiology: No chest pain at rest, chest pain with exertion, shortness of breath or palpitations Gastro GI: Positive for heartburn Skin Skin: No wounds Endo Endocrine: Positive for fatigue; No weight change Exam Const General: cooperative, comfortable, no acute distress and ill appearing chronically Nutritional Appearance: thin Orientation: alert, awake and oriented x3 HENMT (more content not included)... Normal [facility] CNOVon 12-31-2023 CNOV Office Visit (PODIWS) SANJUANITA JERRY ([id number]) 1965 F Date Time Provider Department 12/31/23 1:00 PM KEDAR LONG PODIWS During your visit today, we recorded the following information about you: Kedar Long 12/31/2023 1:19 PM Signed FOLLOW UP PODIATRIC OFFICE VISIT Chief Complaint: This 58 year old who presents for follow up:left foot ulceration. Patient presents to clinic for follow-up left foot ulceration Is using surgical shoe Feels the wound is completely healed Continues to smoke PAIN EVALUATION No data found in the last 1 encounters. Hemoglobin A1C Date Value Ref Range Status 05/31/2022 8.5 (H) 4.3 - 5.6 % Final Comment: [place] [employer] guidelines indicate that patients with HgbA1c in the range 5.7-6.4% are at increased risk for development of diabetes, and intervention by lifestyle modification may be beneficial. HgbA1c greater or equal to 6.5% is considered diagnostic of diabetes. PCP: Erica Herman MD PAST MEDICAL HISTORY Diagnosis Date Cataracts, bilateral s/p surgery in 2021 at [facility] Coronary artery calcification 11/[address] chest Diabetic neuropathy (HCC) Gas gangrene of lower extremity (HCC) Goiter, unspecified 09/29/2007 Known medical problems rt BKA PAD (peripheral artery disease) ([facility]) S/P BKA (below knee amputation) ([facility]) 05/31/2022 right Tobacco use disorder Type II or unspecified type diabetes mellitus without mention of complication, uncontrolled Endo: Dr. Madrigal Current Outpatient Medications Medication Sig ferrous sulfate 325 mg (65 mg iron) tablet Take 1 tablet by mouth once daily. calcium carbonate (CALTRATE) 600 mg calcium (1,500 mg) tab Take 1,200 mg by mouth once daily. atorvastatin (LIPITOR) 40 mg tablet Take 1 tablet by mouth daily at bedtime. For cholesterol. lisinopril (ZESTRIL) 5 mg tablet Take 1 tablet by mouth once daily. aspirin, enteric coated (ASPIRIN, ENTERIC COATED) 81 mg EC tablet Take 81 mg by mouth once daily. albuterol HFA (PROVENTIL HFA, VENTOLIN HFA) 90 mcg/actuation inhaler Inhale 2 Puffs as instructed every 4 hours as needed for wheezing/shortness of breath. urea (CARMOL) 40 % Apply to affected area once daily. glipiZIDE (GLUCOTROL) 5 mg tablet Take 5 mg by mouth two times a day before meals. blood sugar diagnostic(PlatogoTRACK TEST STRIPS) Test blood sugars twice daily. blood-glucose meter(Element ID BLOOD GLUCOSE SYSTEM KIT) Test glucose as directed blood-glucose control, low(PlatogoTRACK GLUCOSE SOLN) Test controls as needed LANCETS Test blood sugars once daily, 250.00, non insulin dep Cholecalciferol, Vitamin D3, (VITAMIN D) 25 mcg (1,000 unit) cap Take 2 capsules by mouth once daily. Taking 2,000 units daily No current facility-administere d medications for this visit. ALLERGIES No Known Allergies PAST SURGICAL HISTORY Procedure Laterality Date APPENDECTOMY HX 80s CATARACT EXTRACTION HX Bilateral 04/2022 EGD W/O [facility] SPEC VARICIES INJ 2019 with esophageal dilation LEG AMPUTATION HX Right 06/03/2022 BKA PAST SURGICAL HISTORY OF Lt thumb straightened Physical Exam: OBJECTIVE: Constitutional: Pt is a well developed 58 year old female who is alert, oriented, cooperative and in no apparent distress. Eyes: Following during examination. No redness or drainage. Respiratory: RR normal and nonlabored. Even breathing. No evidence of distress. Psychology: Patient is engaged during conversation. Normal affect and mood. Does not appear depressed or anxious. NVSI unchanged from previous visit. Dermatological: All wounds of left foot are now healed. There is no signs of cellulitis There is small callus of left 1st and left 5th metatarsal Musculoskeletal/Orth opaedic: Patient has no pain to palpation of left foot ASSESSMENT: (L84) Callus of foot (primary encounter diagnosis) (E11.42) Diabetic polyneuropathy associated with type 2 diabetes mellitus (HCC) PLAN: Wounds are now healed to left foot Small amount of callus and this was reduced with dremmel to left 1st and left 5th metatarsal and left hallux Offered follow-up every 5-6 weeks for callus. She has elected to reduce callus herself with pummice stone. Can f/u every 3 months for nail care Recommend lambs wool between toes to prevent rubbing Smoking cessation was encouraged Diabetic education performed. Kedar Long DPM Referring Provider: KEDAR LONG [[id number]] Allergies As of Date: 12/31/2023 (No Known Allergies) Date Reviewed: 12/31/2023 Reviewed by: Autumn London MA - Fully Assessed Reason for Visit: Follow Up [171] Callous [1028] Primary Visit Diagnosis:Callus of foot [L84] Other Visit Diagnosis:Diabetic polyneuropathy associated with type 2 diabetes mellitus (HCC) [E11.42] Prescriptions as of 12/31/2023 - ferrous sulfate 325 mg (65 mg iron) tablet Ta (more content not included)... Normal [facility] [id number] Author: COORDINATOR, MAMMOGRAPHY, ? Service: ? Author Type: Physician Type: Letter Filed: 12/14/2023 07:37 Note Text: December 16, 2023 PID: [id number] Sanjuanita Jerry [address] [place] [address] Dear Ms. Jerry, We are pleased to inform you that the results of your recent breast imaging exam on 12/12/2023 are normal. Breast tissue can be either dense or not dense. Dense tissue makes it harder to find breast cancer on a mammogram and also raises the risk of developing breast cancer. Your breast tissue is not dense. Talk to your healthcare provider about breast density, risks for breast cancer, and your individual situation. Early detection of cancer is very important. We also understand recommendations regarding breast cancer screening are controversial. Please discuss with your primary care provider which strategy is best for you and whether a mammogram is right for you. Your imaging studies and report will be kept on file at [facility] as part of your permanent medical record and are available for your continuing care. Thank you for allowing us to help in meeting your health care needs. Sincerely, Dr. Reeves Interpreting Radiologist [facility] (Normal over 40) Normal [facility] CNOVon 12-12-2023 CNOV Office Visit (OBGYWM) SANJUANITA JERRY ([id number]) 1965 F Date Time Provider Department 12/12/23 2:30 PM NEENA MINAYA OBGYWM During your visit today, we recorded the following information about you: Blood pressure Weight Height 100/58 44.9 kg 1.562 m Neena Minaya APRN.AUTO WASH BUFFER 12/12/2023 2:20 PM Signed Amortization Clerk offered: Patient declines. Keller is a 58 year old who presents for an annual gynecologic exam without complaints. Postmenopausal: Yes since 2010 HRT use: No. Last Pap: 12/14/2022 normal HPV: 12/11/2022 negative History of abnormal pap: No Last mammogram: 2023 today History of abnormal mammogram: No Sexually active: No OB History T2 L2 SAB0 IAB0 Ectopic0 Multiple0 Live Births0 French Tutor History LMP: 09/16/2007, Postmenopausal Age at Menarche: Age at First : Age at Menopause: French Tutor History Comments: Sexual Activity: Not Currently; No partner data on record Contraception: No contraception data on record PAST MEDICAL HISTORY Diagnosis Date Cataracts, bilateral s/p surgery in 2021 at [facility] Coronary artery calcification 11/[address] chest Diabetic neuropathy (HCC) Gas gangrene of lower extremity (HCC) Goiter, unspecified 09/29/2007 Known medical problems rt BKA PAD (peripheral artery disease) (HCC) S/P BKA (below knee amputation) ([facility]) 05/31/2022 right Tobacco use disorder Type II or unspecified type diabetes mellitus without mention of complication, uncontrolled Endo: Dr. Madrigal PAST SURGICAL HISTORY Procedure Laterality Date APPENDECTOMY HX 80s CATARACT EXTRACTION HX Bilateral 04/2022 EGD W/O [facility] SPEC VARICIES INJ 2019 with esophageal dilation LEG AMPUTATION HX Right 06/03/2022 BKA PAST SURGICAL HISTORY OF Lt thumb straightened FAMILY HISTORY Problem Relation Age of Onset Stroke Mother Ischemic Heart Disease Mother Diabetes Mother Hypertension Mother Stroke Father Ischemic Heart Disease Father Hypertension Father Diabetes Father Kidney failure Sister Ischemic Heart Disease Brother Massive AR at age 38 Breast Cancer Paternal Grandmother SOCIAL HISTORY Social History Tobacco Use Smoking status: Every Day Current packs/day: 0.50 Average packs/day: 0.5 packs/day for 44.7 years (22.4 ttl pk-yrs) Types: Cigarettes Start date: 03/18/1979 Smokeless tobacco: Never Vaping Use Vaping status: Never Used Substance Use Topics Alcohol use: No Drug use: No REVIEW OF SYSTEMS Abdomen: No abdominal pain, nausea, vomiting, diarrhea, or constipation. No bloating, early satiety, indigestion, or increased flatulence. Bladder: No dysuria, gross hematuria, urinary frequency, urinary urgency, or incontinence Breast: No breast lumps, nipple d/c, overlying skin changes, redness or skin retraction Allergies and current medication updated:Yes SENSITIVE EXAM: The sensitive examination was discussed with the Patient or Patient's Authorized Diesel Service Technician. As applicable, any other physician, advance practice provider, medical student, or other health professional student that will be observing or involved in the sensitive examination for educational or training purposes was discussed with the Patient or Authorized Diesel Service Technician. The Patient or Authorized Diesel Service Technician has agreed to proceed with the sensitive examination. (Sensitive examination includes inspection and/or palpation of the breasts, pelvis, prostate and anorectal regions). EXAM: BP 100/58 Ht 5' 1.496" (1.56m) Wt 99 lb (44.9kg) LMP 09/16/2007 BMI 18.41 kg/(m2). GENERAL: pleasant, female in no apparent distress HEENT: Normocephalic, atraumatic, mucus membranes moist, and no lesions NECK: Supple, full range of motion, no adenopathy, and thyroid normal DERMATOLOGY: Normal, without lesions, non-icteric, and non-hirsute BREAST: soft, non-tender, symmetric, no dominant mass, normal nipple-areolar complex, no lymphadenopathy, and no nipple discharge CHEST: Normal inspiratory effort ABDOMEN: soft, non-tender, and no masses PELVIC: external genitalia normal, normal Bartholin's glands, urethra, Hominy's glands, no vulvar lesions, no cervical lesions, good vaginal support, physiologic discharge present, normal appearing perineal body and perianal region BIMANUAL: uterus normal size, shape and consistency, no adnexal masses, and non-tender RECTOVAGINAL: deferred. NEURO: alert and oriented x3,exam grossly non-focal EXTREMITIES: normal ASSESSMENT/PLAN: 1) Health maintenance: Pap/HPV up to date. Mammogram ordered Mammogram up to date Nutrition, exercise and routine health maintenance exams reviewed. Calcium/Vitamin D supplementation information provided. 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 Normal [facility] SCREENINGon 12-12-2023 [facility] SCREENING * * *Final Report* * * DATE OF EXAM: Dec 12 2023 1:41PM JOSE [id number] - [facility] SCREENING / PROCEDURE REASON: Encounter for screening mammogram for breast cancer * * * * Physician Interpretation * * * * RESULT: #[id number] - [facility] SCREENING BILATERAL DIGITAL SCREENING MAMMOGRAM WITH CAD: 12/12/2023 HISTORY: Pt done in chair very unstable Best films possible at this time due to body habitus/ repeated MLOs multiple times for skin folds/Screening Mammogram - patient reports NO breast symptoms /priors available for comparison Encounter For Screening Mammogram For Breast Cancer. RESULT: TECHNIQUE: The study was acquired using full field digital technology and interpreted from soft copy. Current study was also evaluated with a Computer Aided Detection (CAD). Comparison is made to exams dated: 12/06/2022 mammogram - [facility], 05/18/2016 mammogram, and 03/01/2015 mammogram - [facility]. There are scattered areas of fibroglandular density. No significant masses, calcifications, or other findings are seen in either breast. There has been no significant interval change. IMPRESSION: NEGATIVE There is no mammographic evidence of malignancy. A 1 year screening mammogram is recommended. Ketty blair/sergio:12/14/2023 07:37:31 Corporate Specialist(s): VALENTINO Warner)(Ke), [facility] letter sent: Normal over 40 Mammogram BI-RADS: Category 1: Negative Multiple national specialty organizations have released breast cancer screening guidelines for women at average risk for developing breast cancer - guidelines that are based on both evidence and opinion, yet differ on when to start and how often to screen for breast cancer. With representation from Breast Imaging, Internal Medicine, Women's Health, Family Medicine, and Medical/Surgical Oncology, the [facility] has carefully reviewed the data and reached the following consensus: 1) All women should engage in shared decision-making with their providers to decide when to start and how often to screen; 2) All women should have the opportunity to start screening mammography at age 40; 3) For women ages 45-55, we recommend annual screening mammograms; 4) For women ages 55 and over, we support both the transition from an annual to a biennial interval if this aligns more with patient's values and preferences, or continuation with annual screening; 5) All women should discuss with their providers when to stop screening mammograms. Health Care Social Worker: Sergio Transcribe Date/Time: Dec 12 2023 1:23P Dictated by: KETTY REEVES MD This examination was interpreted and the report reviewed and electronically signed by: KETTY REEVES MD on Dec 14 2023 7:37AM EST [id number] CN Normal [facility] CNOVon 12-10-2023 CNOV Office Visit (PODIWS) SANJUANITA JERRY ([id number]) 1965 F Date Time Provider Department 12/10/23 11:15 AM KEDAR LONGIWS During your visit today, we recorded the following information about you: Gaye Zelaya MA 12/10/2023 12:30 PM Signed Patient presents with: Left Foot - Follow Up Callus/toenail follow up AMB ROOMING INTAKE FLOWSHEET DATA Blood sugar this morning was 180. Kedar Long 12/10/2023 12:30 PM Signed Last saw pcp: 11/05/23 Subjective: Patient presents to clinic c/o painful toenails. They state that the nails are especially painful with shoe gear and pressure. Patient states that nails 1-5 left are painful. Patient admits to being diabetic. Does report callus of left foot. No other pedal complaints at this time. Patient states no change in medications or medical history since last visit. Objective: Patient presents to clinic ambulating in [facility] Vasc: DP and PT pulses are palpable left. CFT is less than 5 seconds bilateral. Skin temperature is warm to cool proximal to distal bilateral. There is no edema or varicosities noted. Neuro: Protective sensation is absent to the foot and toes when tested with the 5.07 SWM left. Vibratory sensation is absent at the hallux IPJ left. The hallux is downgoing left Derm: Nails 1-5 left are discolored-yellow, thick, crumbly, dystrophic and with subungal debris. Skin is dry and hair growth is absent bilateral. There are hyperkeratosis of left hallux, left 5th metatarsal and left 1st metatarsal. Superficial noninfected wound of left 4th and left 5th toe Ortho: hammertoes of lesser toes of left foot. Right bka Assessment: (L84) Callus of foot (primary encounter diagnosis) (B35.1) Onychomycosis (Z89.511) History of below-knee amputation of right lower extremity (HCC) (E08.621, L97.401) Diabetic ulcer of heel associated with diabetes mellitus due to underlying condition, limited to breakdown of skin, unspecified laterality (HCC) Ulcer of foot Plan: Patient was seen and evaluated. Nails 1-5 left were debrided in length and thickness. Q7 modifier. Callus reduced to elft 1st metatarsal, left hallux and left 5th metatarsal. Patient actually has superficial ulceration of left 5th metatarsal, noninfected. Measures about 9 mm x 7 mm. Will treat with aquacel, use of surgical shoe and offloading insert. Patient states she feels stable enough to use a surgical shoe. I will have her use a cane while walking. Keeping weight off the foot will help to heal this wound of 5th metatarsal Discussed superficial wound of left 4th and 5th toe. Recommend betadine and use of lambs wool to avoid rubbing between toes. Once superficial wound heals, can use gel toe cap or toe spacer to avoid rubbing Smoking cessation encouraged. Patient was instructed on the continued importance of diabetic foot care along with proper diet and keeping their blood sugar under control to prevent complications. Patient to f/u in 2-3 weeks or sooner to evaluate wounds JEREMIAH Lewis Matthew 12/10/2023 11:35 AM Addendum Diabetes Foot Care Instructions When you have diabetes, proper foot care is very important. Poor foot care may lead to amputation of a foot or leg. As a person with diabetes, you are more vulnerable to foot problems, because diabetes can damage your nerves and reduce blood flow to your feet. Here are some diabetes foot care tips to follow: Wash and Dry Your Feet Daily Use mild soaps Use warm water Pat your skin dry; do not rub. Thoroughly dry your feet. After washing, use lotion on your feet to prevent cracking. Do not put lotion between your toes. Examine Your Feet Each Day Check the tops and bottoms of your feet. Have someone else look at your feet if you cannot see them. Check for dry, cracked skin. Look for blisters, cuts, scratches, or other sores. Check for redness, increased warmth, or tenderness when touching any area of your feet. Check for ingrown toenails, corns, and calluses. If you get a blister or sore from your shoes, do not "pop" it. Apply a bandage and wear a different pair of shoes. Take Care of Your Toenails Cut toenails after bathing, when they are soft. Cut toenails straight across and smooth with a nail file. Avoid cutting into the corners of toes. Do not cut cuticles. If you have neuropathy (or decreased sensation in your feet) a neonatal intensive care nurse should always cut your toenails. Be Careful When Exercising Walk and exercise in comfortable shoes. Do not exercise when you have open sores on your feet. Protect Your Feet With Shoes and Socks Never go barefoot. Always protect your feet by wearing shoes or hard-soled slippers or footwear. Avoid shoes with high heels and pointed toes. Avoid shoes that expose your toes or heels (such as open-toed shoes or sandals). These types of shoes increase your (more content not included)... Normal [facility] XR FOOT 3V AP/LAT/OBL LTon 0 12-10-2023 XR FOOT 3V AP/LAT/OBL LT * * *Final Repo rt* * * DATE OF EXAM: Dec 10 2023 12:35PM [id number] [id number] - XR FOOT 3V AP/LAT/OBL LT / PROCEDURE REASON: multiple diagnoses * * * * Physician Interpretation * * * * EXAMINATION: XR FOOT 3V AP/LAT/OBL LT CLINICAL HISTORY: Diabetic foot ulcer Technique: XR FOOT 3V AP/LAT/OBL LT -- LEFT with 3 views on 3 images Comparison: X-ray left foot 04/04/2023 RESULT: No acute fracture or dislocation. No destructive osseous lesion. Small marginal osteophytes at multiple interphalangeal joints. IMPRESSION: No acute fracture or destructive osseous lesion Health Care Social Worker: PSCB Transcribe Date/Time: Dec 12 2023 4:28P Dictated by : JANE GUTIERREZ MD This examination was interpreted and the report reviewed and electronically signed by: JANE GUTIERREZ MD on Dec 12 2023 4:30PM EST [id number] CN Normal [facility] Heart Perfusion W stress and W radionuclide Bob 08-19-2023 * * *Final Report* * * DATE OF EXAM: Aug 19 2023 9:50AM [address] CARDIAC PERF STRESS/PHARM / PROCEDURE REASON: Coronary artery calcification seen on CAT scan * * * * Physician Interpretation * * * * Stress Outsole Molder Report: [facility] Date of service: 08/19/2023 7:30:57 AM Supervising physician: Nick Renee MD PATIENT: Name: MS. SANJUANITA JERRY Age: 58 years Gender: F The supervising physician was in the department and immediately available. * * * Final * * * PATIENT: Name: MS. SANJUANITA JERRY Age: 58 years Gender: F CONCLUSIONS: 1. SPECT Perfusion Study: Normal. 2. There is no scintigraphic evidence for inducible ischemia. 3. No evidence of scarred myocardium. 4. Left ventricle is small. The left ventricle systolic function is hyperdynamic. 5. Right ventricle is moderately dilated. The right ventricle systolic function is mildly decreased. 6. This is a low risk scan. Gated Stress FBP Gated Rest FBP LVEF % 88 80 Prior Study Comparison No prior nuclear cardiology exam available for comparison. Nuclear Med Report:1-Day Gated SPECT Myocardial Perfusion with Regadenoson Stress: Myocardial perfusion imaging was performed at rest 30 minutes following the IV injection of the radiotracer. The patient received 0.4 mg of regadenoson, via rapid IV push, immediately followed by radiotracer IV. Gated post stress tomographic imaging was performed 30 to 60 minutes later. See administered radiotracer and doses below. [facility] Date of service: 08/19/2023 7:30:57 AM Ordering Physician: YAAKOV HAYES. Requesting Physician: YAAKOV HAYES Indication: Assessment for suspected CAD, Agatston Calcium score >400 A and Unable to Exercise Interpreting physician: Fabien Fuentes MD Height: 152.40 cm BSA: 1.31 m Weight: 40.82 kg BMI: 17.6 kg/m Exam Type: Rest Stress Radiopharm: Tc-99m Tetrofosmin Tc-99m Tetrofosmin Dosage(mCi): 13.6 35.1 Stress Agent: Regadenoson 0.4mg Supply provided from [facility] Image Quality The overall study imaging quality was deemed to be good. FINDINGS: Left Ventricle Wall Motion: Stress IR:3D - All segments are normal. Rest IR:3D - Gated Stress FBP - Reversibility - Gated Rest FBP - Stress IR:3D Stress IR:3D Gated Stress FBP Gated Rest FBP LVEF: 88 % 80 % ED Volume: 58 ml 65 ml ES Volume: 7 ml 13 ml TID: 0.89 Perfusion Findings Stress IR:3D - Summed Score=0 All segments demonstrate normal perfusion. Rest IR:3D - Summed Score=0 All segments demonstrate normal perfusion. Stress IR:3D Rest IR:3D Summed Score=0 Summed Score=0 LEFT VENTRICLE The left ventricle is small. Left ventricular systolic function is hyperdynamic. Right Ventricle The right ventricle is moderately dilated. There is mild right ventricular hypertrophy. Right ventricle systolic function is mildly decreased. Stress Test Findings: There is no scintigraphic evidence for inducible ischemia. There is no evidence of scarring. The left ventricular cavity size is unchanged with stress. * * * Final * * * Stress ECG Report: [facility] Date of service: 08/19/2023 7:30:57 AM Ordering physician: YAAKOV HAYES technical maintenance specialist: Giovanny Morelos RN Interpreting physician: Nick Renee MD Patient name: MS. SANJUANITA JERRY Age: 58 years Gender: F Height: 152.40 cm BSA: 1.31 m Weight: 40.82 kg BMI: 17.6 kg/m Indication: Encounter for screening for cardiovascular disorders Stress ECG Conclusion: Conclusion: Normal Prior exam comparison: No prior CC exam Stress ECG Summary: The patient's resting heart rate was 92 bpm and blood pressure was 122/74 mmHg. The test was terminated due to end of protocol. No symptoms provoked during stress. The maximum heart rate was 99 bpm, which is 61% of the predicted heart rate for age. Peak blood pressure was 102/58 mmHg. The double product achieved was [address]. Resting ECG: Normal Sinus Rhythm Symptoms at rest: No symptoms Pharamcologic Protocol: Regadenoson Stress Exercise Table: +-----+---+---+---+ Stage HR SYS EDNA + (more content not included)... DIVISION OF RADIOLOGY Provider, [facility] [place] - 08/19/2023 * * *Final Report* * * DATE OF EXAM: Aug 19 2023 9:50AM WON 0006 - NM CARDIAC PERF STRESS/PHARM / PROCEDURE REASON: Coronary artery calcification seen on CAT scan * * * * Physician Interpretation * * * * Stress Outsole Molder Report: [facility] Date of service: 08/19/2023 7:30:57 AM Supervising physician: Nick Renee MD PATIENT: Name: MS. SANJUANITA JERRY Age: 58 years Gender: F The supervising physician was in the department and immediately available. * * * Final * * * PATIENT: Name: MS. SANJUANITA JERRY Age: 58 years Gender: F CONCLUSIONS: 1. SPECT Perfusion Study: Normal. 2. There is no scintigraphic evidence for inducible ischemia. 3. No evidence of scarred myocardium. 4. Left ventricle is small. The left ventricle systolic function is hyperdynamic. 5. Right ventricle is moderately dilated. The right ventricle systolic function is mildly decreased. 6. This is a low risk scan. Gated Stress FBP Gated Rest FBP LVEF % 88 80 Prior Study Comparison No prior nuclear cardiology exam available for comparison. Nuclear Med Report:1-Day Gated SPECT Myocardial Perfusion with Regadenoson Stress: Myocardial perfusion imaging was performed at rest 30 minutes following the IV injection of the radiotracer. The patient received 0.4 mg of regadenoson, via rapid IV push, immediately followed by radiotracer IV. Gated post stress tomographic imaging was performed 30 to 60 minutes later. See administered radiotracer and doses below. [facility] Date of service: 08/19/2023 7:30:57 AM Ordering Physician: YAAKOV HAYES. Requesting Physician: YAAKOV HAYES Indication: Assessment for suspected CAD, Agatston Calcium score >400 A and Unable to Exercise Interpreting physician: Fabien Fuentes MD Height: 152.40 cm BSA: 1.31 m Weight: 40.82 kg BMI: 17.6 kg/m Exam Type: Rest Stress Radiopharm: Tc-99m Tetrofosmin Tc-99m Tetrofosmin Dosage(mCi): 13.6 35.1 Stress Agent: Regadenoson 0.4mg Supply provided from [facility] Image Quality The overall study imaging quality was deemed to be good. FINDINGS: Left Ventricle Wall Motion: Stress IR:3D - All segments are normal. Rest IR:3D - Gated Stress FBP - Reversibility - Gated Rest FBP - Stress IR:3D Stress IR:3D Gated Stress FBP Gated Rest FBP LVEF: 88 % 80 % ED Volume: 58 ml 65 ml ES Volume: 7 ml 13 ml TID: 0.89 Perfusion Findings Stress IR:3D - Summed Score=0 All segments demonstrate normal perfusion. Rest IR:3D - Summed Score=0 All segments demonstrate normal perfusion. Stress IR:3D Rest IR:3D Summed Score=0 Summed Score=0 LEFT VENTRICLE The left ventricle is small. Left ventricular systolic function is hyperdynamic. Right Ventricle The right ventricle is moderately dilated. There is mild right ventricular hypertrophy. Right ventricle systolic function is mildly decreased. Stress Test Findings: There is no scintigraphic evidence for inducible ischemia. There is no evidence of scarring. The left ventricular cavity size is unchanged with stress. * * * Final * * * Stress ECG Report: [facility] Date of service: 08/19/2023 7:30:57 AM Ordering physician: YAAKOV HAYES technical maintenance specialist: Giovanny Morelos RN Interpreting physician: Nick Renee MD Patient name: MS. SANJUANITA JERRY Age: 58 years Gender: F Height: 152.40 cm BSA: 1.31 m Weight: 40.82 kg BMI: 17.6 kg/m Indication: Encounter for screening for cardiovascular disorders Stress ECG Conclusion: Conclusion: Normal Prior exam comparison: No prior CC exam Stress ECG Summary: The patient's resting heart rate was 92 bpm and blood pressure was 122/74 mmHg. The test was terminated due to end of protocol. No symptoms provoked during stress. The maximum heart rate was 99 bpm, which is 61% of the predicted heart rate for age. Peak blood pressure was 102/58 mmHg. The double product achieved was 75869. Resting ECG: Normal Sinus Rhythm Symptoms at rest: No symptoms Pharamcologic Protocol: Regadenoson Stress Exercise Table: +-----+---+---+---+ Stage HR SYS EDNA +-----+---+---+---+ 1 103 +-----+---+---+---+ 2 105 110 68 +-----+---+---+---+ 3 101 108 66 +-----+---+---+---+ 4 99 102 58 +-----+---+---+---+ +-----+--+---+---+ HR SYS EDNA +-----+--+---+---+ Final 99 102 58 (more content not included)... [facility] Radiology Study observation (narrative) [facility] Heart Perfusion W stress and W radionuclide IVOrdered By: [facility] Provider on 08-19-2023 [facility] CNOVon 08-06-2023 CNOV Office Visit (AGPOB1) SANJUANITA JERRY ([id number]) 1965 F Date Time Provider Department 08/06/23 10:15 AM BHARATI RIGGSB1 During your visit today, we recorded the following information about you: Respiration Weight Height 18/minute 40.8 kg 1.524 m Bharati Riggs MD 08/06/2023 10:23 AM Signed Subjective: Patient returns today follow-up guarding her irrigation debridement of her right lower extremity below-knee amputation. Overall doing well. Objective: Examination right lower extremity shows wounds to be healing well. No signs of infection. Assessment: #1 gas gangrene right lower extremity. #2 right below-knee amputation. Intraoperative cultures showed no growth. Plan: We will remove her sutures today. Steri-Strips will be placed. I would refrain from wearing prosthesis for 2-3 additional weeks. They expressed understanding. I will see her back on an as-needed basis. If she has any questions or concerns in the future, she will contact the office. Her questions were answered. Allergies As of Date: 08/06/2023 (No Known Allergies) Date Reviewed: 08/06/2023 Reviewed by: Bharati Riggs MD - Fully Assessed Reason for Visit: Established Patient [175] Follow Up [171] Pain [78] Post Op [174] Primary Visit Diagnosis:Gas gangrene of extremity ([facility]) [A48.0] Other Visit Diagnosis:Below-knee amputation of right lower extremity, subsequent encounter ([facility]) [S88.111D] Prescriptions as of 08/06/2023 - atorvastatin (LIPITOR) 40 mg tablet Take 1 tablet by mouth daily at bedtime. For cholesterol. - aspirin, enteric coated (ASPIRIN, ENTERIC COATED) 81 mg EC tablet Take 81 mg by mouth once daily. - albuterol HFA (PROVENTIL HFA, VENTOLIN HFA) 90 mcg/actuation inhaler Inhale 2 Puffs as instructed every 4 hours as needed for wheezing/shortness of breath. - lisinopril (ZESTRIL) 5 mg tablet Take 1 tablet by mouth once daily. - Cholecalciferol, Vitamin D3, (VITAMIN D) 25 mcg (1,000 unit) cap Take 2 capsules by mouth once daily. Taking 2,000 units daily - urea (CARMOL) 40 % Apply to affected area once daily. - metFORMIN (GLUCOPHAGE) 1,000 mg tablet Take 1,000 mg by mouth twice daily with meals. - glipiZIDE (GLUCOTROL) 5 mg tablet Take 5 mg by mouth two times a day before meals. - ferrous sulfate 325 mg (65 mg iron) tablet Take 325 mg by mouth. - blood sugar diagnostic(TRUETRACK TEST STRIPS) Test blood sugars twice daily. - blood-glucose meter(TRUETRACK BLOOD GLUCOSE SYSTEM KIT) Test glucose as directed - blood-glucose control, low(TRUETRACK GLUCOSE SOLN) Test controls as needed - LANCETS Test blood sugars once daily, 250.00, non insulin dep Meds Comments as of 02/25/2014: Problem List As Of Date 08/06/2023 Noted Resolved COUGH [R05.9] 05/19/2007 09/29/2007 GOITER NOS [E04.9] 09/29/2007 DM type 2 with diabetic peripheral neuropathy (*09/29/2007 Anxiety [F41.9] 10/14/2009 Hypertension [I10] 01/24/2010 Depression [F32.A] 01/30/2010 Abnormal mammogram [R92.8] 07/13/2013 Gas gangrene of extremity (HCC) [A48.0] 05/31/2022 MRSA bacteremia [R78.81, B95.62] 06/04/2022 Infection due to anaerobes [A49.8] 06/04/2022 Peripherally inserted central catheter (PICC) i*06/06/2022 Coronary artery calcification [I25.10, I25.84] 11/2022 S/P BKA (below knee amputation) (HCC) [Z89.519] 05/31/2022 Tobacco use disorder [F17.200] 02/01/2023 Disposition: Return if symptoms worsen or fail to improve. Follow-up and Disposition History for Encounter Date Provider Department Center 08/06/2023 [id number] RIGGS AGPOB1 AG POB Encounter Status:Closed by BHARATI RIGGS on 08/06/23 Normal [facility] CBC W Auto Differential pane l (Bld)on 08-05-2023 Basophils (Bld) [#/Vol] 0.06 10*3/uL NINF [facility] Basophils/100 WBC (Bld) 0.7 % C [facility] Differential cell count method Nom (Bld) Auto [facility] Eosinophils (Bld) [#/Vol] 0.06 10*3/uL [facility] Eosinophils/100 WBC (Bld) 0.7 % [facility] Erythrocyte distribution width (RBC) [Ratio] 13.6 % 11.5 - 15.0 % [facility] Hematocrit (Bld) [Volume fraction] 26.8 % Low 36.0 - 46.0 % [facility] Hemoglobin (Bld) [Mass/Vol] 8.9 g/dL Low 11.5 - 15.5 g/dL [facility] Immature granulocytes (Bld) [#/Vol] 0.03 10*3/uL [facility] Immature granulocytes/100 WBC (Bld) 0.4 % [facility] Interpretation and review of laboratory results Abnormal [facility] Lymphocytes (Bld) [#/Vol] 1.69 10*3/uL [facility] Lymphocytes/100 WBC (Bld) 20.8 % [facility] MCH (RBC) [Entitic mass] 31.1 pg 26. 0 - 34.0 pg [facility] MCHC (RBC) [Mass/Vol] 33.2 g/dL 30.5 - 36.0 g/dL [facility] MCV (RBC) [Entitic vol] 93.7 fL 80.0 - 100.0 fL [facility] Monocytes (Bld) [#/Vol] 0.64 10*3/uL [facility] Monocytes/100 WBC (Bld) 7.9 % C [facility] Neutrophils (Bld) [#/Vol] 5.63 10*3/uL [facility] Neutrophils/100 WBC (Bld) 69.5 % [facility] Nucleated RBC (Bld) [#/Vol] [facility] Nucleated RBC/100 WBC (Bld) [Ratio] 0.0 % /100 WBC [facility] Platelet mean volume (Bld) [Entitic vol] 10.5 fL 9.0 - 12.7 fL [facility] Platelets (Bld) [#/Vol] 287 10*3/uL [facility] RBC (Bld) [#/Vol] 2.86 10*6/uL Low 3.90 - 5.2 0 m/uL [facility] WBC (Bld) [#/Vol] 8.11 10*3/uL [facility] Comprehensive metabolic 2000 panelon 08-05-2023 Albumin [Mass/Vol] 3.8 g/dL Low 3.9 - 4.9 g/dL [facility] ALP [Catalytic activity/Vol] 85 U/L 34 - 123 U/L [facility] ALT [Catalytic activity/Vol] 6 U/L Low 7 - 38 U/L [facility] Anion gap [Moles/Vol] 12 mmol/L 9 - 18 mmol/L [facility] AST [Catalytic activity/Vol] 14 U/L 13 - 35 U/L [facility] Bilirubin [Mass/Vol] 0.2 mg/dL 0.2 - 1 .3 mg/dL [facility] Calcium [Mass/Vol] 9.2 mg/dL 8.5 - 10. 2 mg/dL [facility] Chloride [Moles/Vol] 98 mmol/L 97 - 10 5 mmol/L [facility] CO2 [Moles/Vol] 22 mmol/L 22 - 30 mmol/L [facility] Creatinine [Mass/Vol] 1.03 mg/dL High 0.58 - 0.96 mg/dL [facility] GFR/1.73 sq M.predicted among non-blacks MDRD (S/P/Bld) [Vol rate/Area] 64 mL/min/{1.73_m2} - PINF [facility] Comment on above: Estimated Glomerular Filtration Rate (eGFR) is calculated using the 2020 CKD-EPI creatinine equation. This equation utilizes serum creatinine, sex, and age as parameters. The creatinine assay has traceable calibration to isotope dilution-mass spectrometry. Refer to KDIGO guidelines for clinical interpretation. In patients with unstable renal function, e.g. those with acute kidney injury, the eGFR may not accurately reflect actual GFR. Glucose [Mass/Vol] 123 mg/dL High 74 - 99 mg/dL [facility] Comment on above: The [place] Di[employer] Association (ADA) provides guidance for cutoff values for fasting glucose and random glucose. The ADA defines fasting as no caloric intake for at least 8 hours. Fasting plasma glucose results between 100 to 125 mg/dL indicate increased risk for diabetes (prediabetes). Fasting plasma glucose results greater than or equal to 126 mg/dL meet the criteria for diagnosis of diabetes. In the absence of unequivocal hyperglycemia, results should be confirmed by repeat testing. In a patient with classic symptoms of hyperglycemia or hyperglycemic crisis, random plasma glucose results greater than or equal to 200 mg/dL meet the criteria for diagnosis of diabetes. Reference: Standards of Medical Care in Diabetes 2016, [place] [employer]. Diabetes Care. 2016.39(Suppl 1). Potassium [Moles/Vol] 3.5 mmol/L Low 3.7 - 5.1 mmol/L [facility] Protein [Mass/Vol] 6.6 g/dL 6.3 - 8.0 g/dL [facility] Sodium [Moles/Vol] 132 mmol/L Low 136 - 144 mmol/L [facility] Urea nitrogen [Mass/Vol] 8 mg/dL 7 - 21 mg/d L [facility] FERRITINon 08-05-2023 Ferritin [Mass/Vol] 123.0 ng/mL 14.7 - 2 05.1 ng/mL [facility] FOLATE, SERUMon 08-05-2023 Folate [Mass/Vol] 7.2 ng/mL 4.7 - PINF ng/mL [facility] Ferritin [Mass/Vol]on 2023 Interpretation and review of laboratory results Normal [facility] Iron and Iron binding capaci ty panelon 08-05-2023 Iron [Mass/Vol] 45 ug/dL 41 - 186 ug/dL [facility] Iron binding capacity [Mass/Vol] 319 ug/dL 232 - 386 ug/dL [facility] Iron/TIBC [Molar ratio] 14.1 % Low 15.0 - 57.0 % [facility] No Panel Informationon 08-04 Interpretation and review of laboratory results Normal [facility] Interpretation and review of laboratory results Abnormal [facility] VITAMIN B12on 08-05-2023 Cobalamin (Vitamin B12) [Mass/Vol] 499 pg/mL 232 - 1245 pg/mL [facility] CNPNon 07-22-2023 CNPN Telephone (AGPOB1) SANJUANITA JERRY ([id number]) 1965 F Date Time Provider Department 07/22/23 KEELY, BHARATI J AGPOB1 During your visit today, we recorded the following information about you: RigoYuli 07/22/2023 4:40 PM Signed Spoke to patient and scheduled them with Dr. Riggs on 08/06/23 at 10:15 am location POB. Patient is agreeable to date, time, and location. Yuli Sierra July 22, 2023 4:39 PM Allergies As of Date: 07/22/2023 (No Known Allergies) Date Reviewed: 07/18/2023 Reviewed by: Miriam Funez RN - Fully Assessed Reason for Visit: Appointment [186] Prescriptions as of 07/22/2023 - oxyCODONE IR (ROXICODONE) 5 mg immediate release tablet Take 1 tablet by mouth every 6 hours as needed for pain for up to 5 days. - sulfamethoxazole-tri methoprim (BACTRIM DS) 800-160 mg per tablet Take 1 tablet by mouth two times a day for 7 days. - aspirin, enteric coated (ASPIRIN, ENTERIC COATED) 81 mg EC tablet Take 81 mg by mouth once daily. - albuterol HFA (PROVENTIL HFA, VENTOLIN HFA) 90 mcg/actuation inhaler Inhale 2 Puffs as instructed every 4 hours as needed for wheezing/shortness of breath. - lisinopril (ZESTRIL) 5 mg tablet Take 1 tablet by mouth once daily. - Cholecalciferol, Vitamin D3, (VITAMIN D) 25 mcg (1,000 unit) cap Take 2 capsules by mouth once daily. Taking 2,000 units daily - urea (CARMOL) 40 % Apply to affected area once daily. - atorvastatin (LIPITOR) 40 mg tablet Take 1 tablet by mouth daily at bedtime. For cholesterol. - metFORMIN (GLUCOPHAGE) 1,000 mg tablet Take 1,000 mg by mouth twice daily with meals. - glipiZIDE (GLUCOTROL) 5 mg tablet Take 5 mg by mouth two times a day before meals. - ferrous sulfate 325 mg (65 mg iron) tablet Take 325 mg by mouth. - blood sugar diagnostic(TRUETRACK TEST STRIPS) Test blood sugars twice daily. - blood-glucose meter(TRUETRACK BLOOD GLUCOSE SYSTEM KIT) Test glucose as directed - blood-glucose control, low(TRUETRACK GLUCOSE SOLN) Test controls as needed - LANCETS Test blood sugars once daily, 250.00, non insulin dep Meds Comments as of 02/25/2014: Problem List As Of Date 07/22/2023 Noted Resolved COUGH [R05.9] 05/19/2007 09/29/2007 GOITER NOS [E04.9] 09/29/2007 DM type 2 with diabetic peripheral neuropathy (*09/29/2007 Anxiety [F41.9] 10/14/2009 Hypertension [I10] 01/24/2010 Depression [F32.A] 01/30/2010 Abnormal mammogram [R92.8] 07/13/2013 Gas gangrene of extremity (HCC) [A48.0] 05/31/2022 MRSA bacteremia [R78.81, B95.62] 06/04/2022 Infection due to anaerobes [A49.8] 06/04/2022 Peripherally inserted central catheter (PICC) i*06/06/2022 Coronary artery calcification [I25.10, I25.84] 11/2022 S/P BKA (below knee amputation) (HCC) [Z89.519] 05/31/2022 Tobacco use disorder [F17.200] 02/01/2023 Encounter Status:Closed by YULI SIERRA on 07/22/23 [facility] ANES POSTPROC EVALon 024 ANES POSTPROC EVAL HNO ID: [id number] Author: JASMYN ELDER MD Service: Anesthesiology Author Type: Physician Type: Anesthesia Postprocedure Evaluation Filed: 07/22/2023 10:31 Note Text: POST ANESTHESIA EVALUATION NOTE : 1965 Procedure Summary Date: 07/18/23 Room / Location: [place] OR 01 / [place] OR Anesthesia Start: 1302 Anesthesia Stop: 1404 Procedures: PARTIAL EXCISION OF TIBIA BONE, RIGHT (Right: Tibia) AMPUTATION REVISION BELOW KNEE (Right: Leg) Diagnosis: Osteomyelitis of right tibia, unspecified type (HCC) Chronic osteomyelitis of right tibia with draining sinus (HCC) (Osteomyelitis of right tibia, unspecified type (HCC) [M86.9]) (Chronic osteomyelitis of right tibia with draining sinus (HCC) [M86.461]) Surgeons: Bharati Riggs MD Responsible Provider: Jasmyn Elder MD Anesthesia Type: general ASA Status: 3 Anesthesia Type: general Airway Type: LMA Last Vitals Vitals Value Taken Time BP 155/70 07/18/23 1445 Temp 36.2 ?C (97.2 ?F) 07/18/23 1440 HR SpO2 84 07/18/23 1445 Resp 18 07/18/23 1445 SpO2 99 % 07/18/23 1445 Post Anesthesia Patient Status Anticipated Disposition: phase 2 then home. Neurological Status: aware and responsive. Pulmonary Status: breathing comfortably on room air Airway Control: returned to baseline unsupported. Cardiovascular Status: stable. Pain Management: clinically adequate Postoperative Hydration: acceptable. Intraoperative Events: no significant anesthesia events Post Operative Nausea/Vomiting Status: no significant post operative nausea or vomiting Recommendation: further care per PACU/ICU/floor team. Anesthesia Observations No Documentation SIGNATURE: Jasmyn Elder MD PATIENT NAME: Sanjuanita Jerry DATE: July 22, 2023 TIME: 10:30 AM CSN: [id number] [facility] ANES PRE-OPon 07-18-2023 ANES PRE-OP HNO ID: [id number] Author: JASMYN ELDER MD Service: Anesthesiology Author Type: Physician Type: Anesthesia Preprocedure Evaluation Filed: 07/18/2023 13:03 Note Text: ANESTHESIOLOGY DAY OF SURGERY NOTE : 1965 Procedure Information Date/Time: 07/18/23 1310 Procedures: PARTIAL EXCISION OF TIBIA BONE, RIGHT (Right: Tibia) AMPUTATION REVISION BELOW KNEE (Right: Leg) Location: [place] OR / [place] OR Surgeons: Bharati Riggs MD Estimated body mass index is 19.14 kg/m? as calculated from the following: Height as of 07/16/23: 152.4 cm (5'). Weight as of 07/16/23: 44.5 kg (98 lb). Most recent hematocrit and potassium results: HCT 29.2 03/06/2023 Potassium 3.9 03/06/2023 Potassium (POCT) 3.2 05/31/2022 Relevant Problems CARDIO (+) Coronary artery calcification (+) Hypertension ENDO (+) DM type 2 with diabetic peripheral neuropathy (HCC) I - PHYSICAL EVALUATION AIRWAY Patient intubated: No. Tracheostomy tube not present Mallampati: II. TM distance: >3 FB. Neck ROM: full ROM without neurological symptoms. Mouth opening: adequate. Short neck: no. Thick neck: no DENTAL Dental findings: edentulous. Additional exam findings: no II - ANESTHESIA PLAN ASA Score: 3 Anesthetic Plan: general Airway type: LMA NPO Status: adequate Beta Nile Monitoring Plan Monitoring plan: standard ASA. Post Procedure Analgesic Plan Postoperative analgesic plan: parenteral or oral opioids and multimodal analgesia. Informed Consent Anesthetic risks, benefits, alternatives, personnel and consent discussed: yes. Patient / Responsible [employer] agrees to proceed: yes Patient / Surrogate agrees to blood products: Yes Significant changes in the patient condition since the History and Physical, not otherwise documented in primary service progress note: no. Vitals Value Taken Time BP 120/70 07/18/23 1247 Pulse 76 07/18/23 1247 Resp 18 07/18/23 1247 Temp 36 ?C (96.8 ?F) 07/18/23 1247 SpO2 99 % 07/18/23 1253 Vitals shown include unfiled device data. No current facility-administere d medications on file as of 07/18/2023. Outpatient Medications as of 07/18/2023 Medication Sig - sulfamethoxazole-tri methoprim (BACTRIM DS) 800-160 mg per tablet Take 1 tablet by mouth every 12 hours. - aspirin, enteric coated (ASPIRIN, ENTERIC COATED) 81 mg EC tablet Take 81 mg by mouth once daily. - albuterol HFA (PROVENTIL HFA, VENTOLIN HFA) 90 mcg/actuation inhaler Inhale 2 Puffs as instructed every 4 hours as needed for wheezing/shortness of breath. - lisinopril (ZESTRIL) 5 mg tablet Take 1 tablet by mouth once daily. - Cholecalciferol, Vitamin D3, (VITAMIN D) 25 mcg (1,000 unit) cap Take 2 capsules by mouth once daily. Taking 2,000 units daily - urea (CARMOL) 40 % Apply to affected area once daily. - atorvastatin (LIPITOR) 40 mg tablet Take 1 tablet by mouth daily at bedtime. For cholesterol. - metFORMIN (GLUCOPHAGE) 1,000 mg tablet Take 1,000 mg by mouth twice daily with meals. - glipiZIDE (GLUCOTROL) 5 mg tablet Take 5 mg by mouth two times a day before meals. - ferrous sulfate 325 mg (65 mg iron) tablet Take 325 mg by mouth. - blood sugar diagnostic(TRUETRACK TEST STRIPS) Test blood sugars twice daily. - blood-glucose meter(TRUETRACK BLOOD GLUCOSE SYSTEM KIT) Test glucose as directed - blood-glucose control, low(TRUETRACK GLUCOSE SOLN) Test controls as needed - LANCETS Test blood sugars once daily, 250.00, non insulin dep I have interviewed and examined the patient. I have reviewed the medical record and/or the pre-anesthesia evaluation, pertinent labs, and test results. This contains updated information obtained within 48 hours of Surgery/Procedure. SIGNATURE: Jasmyn Elder MD PATIENT NAME: Sanjuanita Jerry DATE: July 18, 2023 TIME: 1:01 PM CSN: [id number] Normal [facility] Bacteria Spec Anaerobe Culto n 07-18-2023 Bacteria identified Anaer cx Nom (Unsp spec) Negative Normal [facility] Comment on above: Performed By: #### 6 462-6, 635-3 ####[facility] LABORATORYCLIA [id number] [address] [place] [facility] Bacteria identified Anaer cx Nom (Unsp spec) Negative Normal [facility] Comment on above: Performed By: #### 6 35-3, 10885-1, 39594-8 ####[facility] LABORATORYCLIA [id number] [place] [address] [place] Bacteria Tiss Culton 024 Bacteria identified Cx Nom (Tiss) CULTURE, TISSUE: No growth GRAM STAIN: No organisms seen Moderate Polymorphonuclear leukocytes Many Red Blood Cells Normal [facility] Comment on above: Performed By: #### 6 35-3, 61516-3, 33424-2 ####[facility] LABORATORYCLIA [id number] [place] [address] [place] Bacteria Wnd Culton 07-18-19 24 Bacteria identified Cx Nom (Wound) CULTURE, WOUND: No growth GRAM STAIN: No organisms seen Few Polymorphonuclear leukocytes Many Red Blood Cells Normal [facility] Comment on above: Performed By: #### 6 462-6, 635-3 ####[facility] LABORATORYCLIA [id number] [place] [address] HISTORY PHYSICALon HISTORY PHYSICAL HNO ID: [id number] Author: BHARATI RIGGS MD Service: Orthopaedic Surgery Author Type: Physician Type: H&P Filed: 07/18/2023 13:02 Note Text: UPDATED HISTORY AND PHYSICAL EXAMINATION SERVICE DATE: 07/18/2023 SERVICE TIME: 1301 PHYSICAL EXAM MUST BE COMPLETED ON ADMISSION The History and Physical (completed in the past 30 days) has been reviewed and the patient has been examined. The contents accurately reflect the patient's condition with the following additions or revisions since the HANDP was completed. Examination indicates no changes. This HANDP can be found in the Electronic Medical Record dated 07/16/23. Plan: Will proceed with right lower extremity as planned ACTIVE PROBLEM LIST Goiter, Unspecified Dm Type 2 With Diabetic Peripheral Neuropathy (Hcc) Anxiety Hypertension Depression Abnormal Mammogram Gas Gangrene of Extremity (Hcc) Mrsa Bacteremia Infection Due to Anaerobes Peripherally Inserted Central Catheter (Picc) in Place Coronary Artery Calcification S/P Bka (Below Knee Amputation) (Hcc) Tobacco Use Disorder SIGNATURE: Bharati Riggs MD PATIENT NAME: Sanjuanita Jerry DATE: July 18, 2023 TIME: 1:01 PM PAGER: Normal [facility] Microorganism Spec Culton Microorganism identified Cx Nom (Unsp spec) CULTURE, FUNGAL: No Fungus isolated after 28 days FUNGAL SMEAR: No fungus seen Normal [facility] Comment on above: Performed By: #### 6 35-3, 77376-8, 23108-7 ####[facility] LABORATORYCLIA [id number] [address] Microorganism identified Cx Nom (Unsp spec) CULTURE, AFB: No Acid Fast Bacilli isolated after 42 days AFB STAIN: No acid fast bacilli seen by flurochrome stain Normal [facility] Comment on above: Performed By: #### 6 35-3, 77186-9, 08677-1 ####[facility] LABORATORYCLIA [id number] [address] OPERATIVE NOon 07-18-2023 OPERATIVE NO HNO ID: [id number] Author: BHARATI RIGGS MD Service: Orthopaedic Surgery Author Type: Physician Type: Operative Report Filed: 07/18/2023 14:06 Note Text: ORTHO OPERATIVE REPORT LOG ID: [id number] Surgery/Procedure Date: 07/18/2023 Incision/Procedure Start Time: 1:24 PM Incision Close/Procedure End Time: 1:53 PM Surgeon(s)/Procedura list(s) and Front Office Agent(s): Surgeon(s) and Role: * Bharati Riggs MD - Primary * Henry Aragon MD - Resident - Assisting No Additional Staff Procedure(s): Revision right below-knee amputation Anesthesia: General Procedure Details: Informed consent was obtained. The patient was reprepped identified in the presurgical area. She was brought back to the operating room placed on the operating table in the supine position. Anesthesia was administered followed by placement laryngeal mask airway. All times the head, neck, airway were controlled by the anesthesia staff. Right lower extremity was then prescribed Hibiclens and alcohol. Bump placed under right hip. The right lower extremity was then prepped and draped in sterile orthopedic fashion. Timeout was performed per [facility] exam protocol. Patient received 2 g Ancef IV after cultures obtained. There is a small wound over the anterior aspect of the distal tibia. Using the incision over the tibia from her previous amputation site we incised with scalpel electrocautery was for hemostasis dissection carried down through the scar tissue. No abscess identified. Right identified the end of the tibia and elevated soft tissues off the end of the tibia. This was then opened with a drill bit. No purulence. Cultures were obtained from the right tibia. We then revised the tibia cut with rongeur and rasp. The small opening over the anterior aspect tibia was then excised. This was opened and no infection was encountered. We then thoroughly irrigated the right lower extremity. Closure ensued. 0 Vicryl was used in the deep tissues. 2-0 Monocryl in the dermis and 3-0 nylon for the skin. The anterior wound was repaired with 3-0 nylon suture. Sterile dressing was then placed. The patient was then awake from anesthesia to cover him in stable condition. PRE-OP/PRE-PROCEDURE DIAGNOSIS: Open wound right below-knee amputation POST-OP/POST-PROCEDU RE DIAGNOSIS: Same as Preop Estimated Blood Loss: 10 mls Specimens: Cultures right tibia Drains: None Complications: None Participation in Procedure: I/primary surgeon/proceduralis t performed the procedure with assistance. SIGNATURE: Bharati Riggs MD PATIENT NAME: Sanjuanita Jerry DATE: July 18, 2023 TIME: 2:02 PM PAGER/CONTACT #: [facility] CNOValfonso 07-16-2023 CNOV Office Visit (AGPOB1) SANJUANITA JERRY ([id number]) 1965 F Date Time Provider Department 07/16/23 10:15 AM BHARATI RIGGS AGPOB1 During your visit today, we recorded the following information about you: Respiration Weight Height 16/minute 44.5 kg 1.524 m Bharati Riggs MD 07/16/2023 10:08 AM Signed Chief complaint: Follow-up right below-knee amputation. History of present illness: Patient is known to myself. History of below-knee amputation. Recently had MRI scan performed at outside institution. Here for follow-up regarding this MRI scan. States she continues to have 1 area that is open on the anterior aspect of her stump. For the patient's past medical history, past surgical history, medications, allergies, family history, social history, and review of systems please refer to medical history in chart. Physical exam: The patient is alert and oriented no acute distress. Answers questions appropriate. Has a normal affect. Examination right lower extremity shows 1 small opening over the anterior aspect of her tibia. Some irritation around the wound. No spreading cellulitis. Imaging: MRI scan report was reviewed. This demonstrated osteomyelitis and changes within the distal portion of the tibia as well as fluid around this. Assessment: #1 gas gangrene right lower extremity. #2 history of right below-knee imitation. #3 right tibial osteomyelitis. Plan: At this time we discussed her MRI findings. Because she continues to have this wound, I did recommend irrigation debridement of her osteomyelitis as well as revision below-knee amputation. This was discussed with the patient. Discussed the risk, benefits, complication, alternatives. Answered their questions. They wish to proceed. Electronic consent was obtained. We will obtain cultures intraoperatively. She will stay overnight in the hospital. We will get this scheduled in the near future. If she has any questions or concerns prior to next encounter, she will contact the office. Questions answered. Allergies As of Date: 07/16/2023 (No Known Allergies) Date Reviewed: 07/16/2023 Reviewed by: Bharati Riggs MD - Fully Assessed Reason for Visit: Established Patient [175] Cmt: Denies any pain, still has wound at incision site Follow Up [171] Cmt: Denies any pain, still has wound at incision site Post Op [174] Cmt: Denies any pain, still has wound at incision site Primary Visit Diagnosis:Gas gangrene of extremity ([facility]) [A48.0] Other Visit Diagnoses:Below-knee amputation of right lower extremity, subsequent encounter ([facility]) [S88.111D] Chronic osteomyelitis of right tibia with draining sinus ([facility]) [M86.461] Prescriptions as of 07/16/2023 - aspirin, enteric coated (ASPIRIN, ENTERIC COATED) 81 mg EC tablet Take 81 mg by mouth once daily. - albuterol HFA (PROVENTIL HFA, VENTOLIN HFA) 90 mcg/actuation inhaler Inhale 2 Puffs as instructed every 4 hours as needed for wheezing/shortness of breath. - lisinopril (ZESTRIL) 5 mg tablet Take 1 tablet by mouth once daily. - Cholecalciferol, Vitamin D3, (VITAMIN D) 25 mcg (1,000 unit) cap Take 2 capsules by mouth once daily. Taking 2,000 units daily - urea (CARMOL) 40 % Apply to affected area once daily. - atorvastatin (LIPITOR) 40 mg tablet Take 1 tablet by mouth daily at bedtime. For cholesterol. - metFORMIN (GLUCOPHAGE) 1,000 mg tablet Take 1,000 mg by mouth twice daily with meals. - glipiZIDE (GLUCOTROL) 5 mg tablet Take 5 mg by mouth once daily. - ferrous sulfate 325 mg (65 mg iron) tablet Take 325 mg by mouth. - blood sugar diagnostic(TRUETRACK TEST STRIPS) Test blood sugars twice daily. - blood-glucose meter(Element ID BLOOD GLUCOSE SYSTEM KIT) Test glucose as directed - blood-glucose control, low(TRUETRACK GLUCOSE SOLN) Test controls as needed - LANCETS Test blood sugars once daily, 250.00, non insulin dep Meds Comments as of 02/25/2014: Problem List As Of Date 07/16/2023 Noted Resolved COUGH [R05.9] 05/19/2007 09/29/2007 GOITER NOS [E04.9] 09/29/2007 DM type 2 with diabetic peripheral neuropathy (*09/29/2007 Anxiety [F41.9] 10/14/2009 Hypertension [I10] 01/24/2010 Depression [F32.A] 01/30/2010 Abnormal mammogram [R92.8] 07/13/2013 Gas gangrene of extremity (HCC) [A48.0] 05/31/2022 MRSA bacteremia [R78.81, B95.62] 06/04/2022 Infection due to anaerobes [A49.8] 06/04/2022 Peripherally inserted central catheter (PICC) i*06/06/2022 Coronary artery calcification [I25.10, I25.84] 11/2022 S/P BKA (below knee amputation) ([facility]) [Z89.519] 05/31/2022 Tobacco use disorder [F17.200] 02/01/2023 Disposition: Return Surgery. Follow-up and Disposition History for Encounter Date Provider Department Center 07/16/2023 [id number] RIGGS AG POB Encounter Status:Closed by BHARATI RIGGS on 07/16/23 [facility] CNOVon 06-25-2023 CNOV Office Visit (AGPOB1) SANJUANITA JERRY ([id number]) 1965 F Date Time Provider Department 06/25/23 8:30 AM BHARATI RIGGS During your visit today, we recorded the following information about you: Respiration Weight Height 18/minute 44.5 kg 1.524 m Bharati Riggs MD 06/25/2023 8:17 AM Signed Chief complaint: Follow-up right below-knee amputation. History of present illness: Patient is well-known to myself. 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 Had developed a wound over the anterior aspect of her stump, over her tibia, from wearing her prosthesis. She has been seeing wound center. Present today stating she still has her wound. She is been going to the wound center. Has been on antibiotics. Denies any systemic symptoms. Has not been wearing her prosthesis. For the patient's past medical history, past surgical history, medications, allergies, family history, social history, and review of systems please refer to medical history in chart. Physical exam: The patient is alert and oriented in no acute distress. Answers questions appropriate present normal affect. Examination of the right lower extremity shows 1 small opening proximal to the incision over the bony prominence of her tibia. No surrounding erythema. This is packed with Mesalt. No appreciable abscess. Assessment: #1 gas gangrene right lower extremity. #2 below-knee amputation right lower extremity. Plan: At this time she will continue with the wound center. She does state that she has an MRI scan ordered and scheduled for tomorrow for her right lower extremity. This was ordered by her wound center provider. We will see what this shows. We did discuss the potential need for operation on her right lower extremity. This would involve irrigation debridement with closure of her wound. This will be done as an outpatient. Going to see her back in 3 weeks and we can discuss her next steps. We will also review the MRI scan at that time. If there is any questions or concerns prior to this encounter, they will contact the office. Questions answered. Allergies As of Date: 06/25/2023 (No Known Allergies) Date Reviewed: 06/25/2023 Reviewed by: Bharati Riggs MD - Fully Assessed Reason for Visit: Established Patient [175] Follow Up [171] Primary Visit Diagnosis:Gas gangrene of extremity ([facility]) [A48.0] Other Visit Diagnosis:Below-knee amputation of right lower extremity, subsequent encounter ([facility]) [S88.111D] Prescriptions as of 06/25/2023 - albuterol HFA (PROVENTIL HFA, VENTOLIN HFA) 90 mcg/actuation inhaler Inhale 2 Puffs as instructed every 4 hours as needed for wheezing/shortness of breath. - lisinopril (ZESTRIL) 5 mg tablet Take 1 tablet by mouth once daily. - Cholecalciferol, Vitamin D3, (VITAMIN D) 25 mcg (1,000 unit) cap Take 2 capsules by mouth once daily. Taking 2,000 units daily - urea (CARMOL) 40 % Apply to affected area once daily. - atorvastatin (LIPITOR) 40 mg tablet Take 1 tablet by mouth daily at bedtime. For cholesterol. - metFORMIN (GLUCOPHAGE) 1,000 mg tablet Take 1,000 mg by mouth twice daily with meals. - glipiZIDE (GLUCOTROL) 5 mg tablet Take 5 mg by mouth once daily. - ferrous sulfate 325 mg (65 mg iron) tablet Take 325 mg by mouth. - blood sugar diagnostic(TRUETRACK TEST STRIPS) Test blood sugars twice daily. - blood-glucose meter(Element ID BLOOD GLUCOSE SYSTEM KIT) Test glucose as directed - blood-glucose control, low(TRUETRACK GLUCOSE SOLN) Test controls as needed - LANCETS Test blood sugars once daily, 250.00, non insulin dep Meds Comments as of 02/25/2014: Problem List As Of Date 06/25/2023 Noted Resolved COUGH [R05.9] 05/19/2007 09/29/2007 GOITER NOS [E04.9] 09/29/2007 DM type 2 with diabetic peripheral neuropathy (*09/29/2007 Anxiety [F41.9] 10/14/2009 Hypertension [I10] 01/24/2010 Depression [F32.A] 01/30/2010 Abnormal mammogram [R92.8] 07/13/2013 Gas gangrene of extremity (HCC) [A48.0] 05/31/2022 MRSA bacteremia [R78.81, B95.62] 06/04/2022 Infection due to anaerobes [A49.8] 06/04/2022 Peripherally inserted central catheter (PICC) i*06/06/2022 Coronary artery calcification [I25.10, I25.84] 11/2022 S/P BKA (below knee amputation) ([facility]) [Z89.519] 05/31/2022 Tobacco use disorder [F17.200] 02/01/2023 Disposition: Return in about 3 weeks (around 07/16/2023). Follow-up and Disposition History for Encounter Date Provider Department Center 06/25/2023 [id number], WILLIAM Sabi AGPOB1 AG POB Encounter Status:Closed by BHARATI RIGGS on 06/25/23 [facility] Absolute lymphocyte countOrd ered By: Jillian Livingston on 06-19-2023 Lymphocytes Auto (Unsp spec) [#/Vol] 1.39 10*3/uL 0.83-4.51 [facility] Automated lymphocyte count a s percentage of total leukocytesOrdered By: Jillian Livingston on 06-19-2023 Lymphocytes/100 WBC Auto (Unsp spec) 12.0 % 19-41 [facility] Basophil percentageOrdered B y: Jillian Livingston on 06-19-2023 Basophils/100 WBC (Bld) 0.9 % 0-1 [facility] Eosinophils/100 WBC (Bld) 0.7 % 0-5 [facility] Hemoglobin (Bld) [Mass/Vol] 10.6 g/dL 12.0-15.0 [facility] Monocytes/100 WBC (Bld) 6.4 % 0-10 [facility] Neutrophils (Bld) [#/Vol] 9.3 10*3/uL 2.0-7.7 [facility] Neutrophils/100 WBC (Bld) 79.7 % 47-70 [facility] WBC (Bld) [#/Vol] 11.6 10*3/uL 4.4-11.0 [facility] Determination of erythrocyte mean corpuscular volume (MCV)Ordered By: Jillian Livingston on 06-19-2023 MCV (RBC) [Entitic vol] 93.1 fL 81-99 [facility] Erythrocyte distribution wid th ratioOrdered By: Jillian Livingston on 06-19-2023 Erythrocyte distribution width (RBC) [Ratio] 14.2 % 11.6-14.6 [facility] Erythrocyte distribution wid th standard deviationOrdered By: Jillian Livingston on 06-19-2023 Erythrocyte distribution width (RBC) [Entitic vol] 47.6 fL 35.1-43.9 [facility] Erythrocyte sedimentation ra teOrdered By: Jillian Livingston on 06-19-2023 ESR (Bld) [Velocity] 21 mm/h 0-30 [facility] Hematocrit Auto (Bld) [Volum e fraction]Ordered By: Jillian Livingston on 06-19-2023 Hematocrit (Bld) [Volume fraction] 32.4 % 37-47 [facility] Immature granulocytes/100 WB C Auto (Bld)Ordered By: Jillian Livingston on 06-19-2023 Immature granulocytes/100 WBC (Bld) 0.300 % 0.0-0.9 [facility] Comment on above: IG% - Immature Granu locytes (promyelocytes, myelocytes and metamyelocytes) > 1% indicates that a LEFT SHIFT is Present. Laboratory - Hematology and Cell countsOrdered By: Jillian Livingston on 06-19-2023 MCH (RBC) [Entitic mass] 30.5 pg 27.0-32.0 [facility] MCHC (RBC) [Mass/Vol] 32.7 g/dL 32-36 [facility] Nucleated RBC/100 WBC (Bld) [Ratio] 0 % 0-5 [facility] Platelet mean volume (Bld) [Entitic vol] 10.7 fL 6.2-12.0 [facility] Platelets (Bld) [#/Vol] 296 10*3/uL 150-450 [facility] No Panel InformationOrdered By: Jillian Livingston on 06-19-2023 C-Reactive Protein Extended Range 8.73 mg/L 0.0-3.0 [facility] Comment on above: C-Reactive Protein ( CRP) provides useful information for thediagnosis, therapy and monitoring of inflammatory processesand associated diseases. For the evaluation of Relative Riskfor Cardiovascular Disease, a High Sensitivity CRP (HSCRP)should be ordered. RBC Auto (Bld) [#/Vol]Ordere d By: Jillian Livingston on 06-19-2023 RBC (Bld) [#/Vol] 3.48 10*6/uL 4.2-5.4 [facility] Laboratory - Hematology and Cell countson 06-12-2023 HbA1c (Bld) [Mass fraction] 7.0 % 4.2-6.3 [facility] Basophil percentageOrdered B y: Jillian Livingston on 06-03-2023 Chloride [Moles/Vol] 103 mmol/L 98-107 [facility] Glucose [Mass/Vol] 189 mg/dL 74-106 [facility] Comment on above: Fasting Glucose resu lt greater than or equal to 126 mg/dL suggests DIABETES MELLITUS per A.D.A. criteria. Potassium [Moles/Vol] 3.4 mmol/L 3.5-5.1 [facility] Sodium [Moles/Vol] 136 mmol/L 136-145 [facility] Laboratory - Chemistry and C hemistry - challengeOrdered By: Jillian Livingston on 06-03-2023 CO2 [Moles/Vol] 27.0 mmol/L 21.0-32.0 [facility] Urea nitrogen/Creatinine [Mass ratio] 7.3 mg/mg 10-20 [facility] No Panel InformationOrdered By: Jillian Livingston on 06-03-2023 Estimated GFR (MDRD) Amer 92 mL/min >60 [facility] Comment on above: GFR Calc Estimated GFR (MDRD) Non-Af Amer 76 mL/min >60 [facility] Comment on above: Non- GFR Calc Serum or plasma calcium jacobo urement (mass/volume)Ordered By: Jillian Livingston on 06-03-2023 Calcium [Mass/Vol] 8.7 mg/dL 8.5-10.1 [facility] Serum or plasma creatinine m easurement (mass/volume)Ordered By: Jillian Livingston on 06-03-2023 Creatinine [Mass/Vol] 0.82 mg/dL 0.55-1.02 [facility] Comment on above: The validity of the calculated GFR & GFRAA in patients over 70 years has not been determined. Clinical correlation is essential. Serum or plasma urea nitroge n measurement (mass/volume)Ordered By: Jillian Livingston on 06-03-2023 Urea nitrogen [Mass/Vol] 6 mg/dL -18 [facility] Thin prep Papanicolaou smear with manual screeningOrdered By: Jillian Livingston on 06-03-2023 Thin prep Papanicolaou smear with manual screening 6 5-15 [facility] CNOVon 05-21-2023 CNOV Office Visit (AGPOB1) SANJUANITA JERRY ([id number]) 1965 F Date Time Provider Department 05/21/23 10:45 AM BHARATI RIGGS AGPOB1 During your visit today, we recorded the following information about you: Respiration Weight Height 20/minute 44.9 kg 1.524 m Bharati Riggs MD 05/21/2023 11:10 AM Signed Chief complaint: Open wound right below-knee amputation. History of present illness: Patient is known to myself. 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 Has been doing extremely well walking in her prosthesis. She has been back to work for 3 months. They state they have had a couple wounds from rubbing on the inside of her prosthesis. They got the first 1 to heal, they have another 1 present now. They were told that there is an infection that she may need a revision amputation. They come in today for evaluation. Denies fevers or chills. States they have been on some oral antibiotics. Of note, prior to wearing the prosthesis, she has had no issues with wound healing. For the patient's past medical history, past surgical history, medications, allergies, family history, social history, and review of systems please refer to medical history in chart. Physical exam: The patient is alert and oriented no acute distress. Answers questions appropriate. Has a normal affect. Examination of the right lower extremity shows wounds to be well-healed. There is a small opening just proximal to her incision site. Serous drainage. No surrounding erythema. No expressible drainage. This is over soft tissue and the end of her tibia. Assessment: #1 right below-knee amputation. #2 gas gangrene right lower extremity. Plan: Had a long discussion with patient and family member regarding her current situation. I do not think there is a deep infection within her leg. She has no obvious signs of this. She has had no wound issues or drainage issues prior to wearing her prosthesis and having the prosthesis rub on this pressure point. I would like for her to refrain from wearing her prosthesis at this time. She is scheduled to see the wound center on . Like to do local wound care to get this to heal. I do not think we need to do any additional surgery at this time though this may be a possibility in the future. Expressed understanding of this plan. She will use Mesalt while waiting to see the wound center. I will see her back in 4 weeks. If there is any questions or concerns, she will contact the office. Questions were answered. Allergies As of Date: 05/21/2023 (No Known Allergies) Date Reviewed: 05/21/2023 Reviewed by: Bharati Riggs MD - Fully Assessed Reason for Visit: Established Patient [175] Follow Up [171] Primary Visit Diagnosis:Gas gangrene of extremity ([facility]) [A48.0] Other Visit Diagnosis:Below-knee amputation of right lower extremity, subsequent encounter ([facility]) [S88.111D] Prescriptions as of 05/21/2023 - albuterol HFA (PROVENTIL HFA, VENTOLIN HFA) 90 mcg/actuation inhaler Inhale 2 Puffs as instructed every 4 hours as needed for wheezing/shortness of breath. - lisinopril (ZESTRIL) 5 mg tablet Take 1 tablet by mouth once daily. - Cholecalciferol, Vitamin D3, (VITAMIN D) 25 mcg (1,000 unit) cap Take 2 capsules by mouth once daily. Taking 2,000 units daily - urea (CARMOL) 40 % Apply to affected area once daily. - atorvastatin (LIPITOR) 40 mg tablet Take 1 tablet by mouth daily at bedtime. For cholesterol. - metFORMIN (GLUCOPHAGE) 1,000 mg tablet Take 1,000 mg by mouth twice daily with meals. - glipiZIDE (GLUCOTROL) 5 mg tablet Take 5 mg by mouth once daily. - ferrous sulfate 325 mg (65 mg iron) tablet Take 325 mg by mouth. - blood sugar diagnostic(TRUETRACK TEST STRIPS) Test blood sugars twice daily. - blood-glucose meter(TRUETRACK BLOOD GLUCOSE SYSTEM KIT) Test glucose as directed - blood-glucose control, low(TRUETRACK GLUCOSE SOLN) Test controls as needed - LANCETS Test blood sugars once daily, 250.00, non insulin dep Meds Comments as of 02/25/2014: Problem List As Of Date 05/21/2023 Noted Resolved COUGH [R05.9] 05/19/2007 09/29/2007 GOITER NOS [E04.9] 09/29/2007 DM type 2 with diabetic peripheral neuropathy (*09/29/2007 Anxiety [F41.9] 10/14/2009 Hypertension [I10] 01/24/2010 Depression [F32.A] 01/30/2010 Abnormal mammogram [R92.8] 07/13/2013 Gas gangrene of extremity (HCC) [A48.0] 05/31/2022 MRSA bacteremia [R78.81, B95.62] 06/04/2022 Infection due to anaerobes [A49.8] 06/04/2022 Peripherally inserted central catheter (PICC) i*06/06/2022 Coronary artery calcification [I25.10, I25.84] 11/2022 S/P BKA (below knee amputation) ([facility]) [Z89.519] 05/31/2022 Tobacco use disorder [F17.200] 02/01/2023 Disposition: Return in about 4 weeks (around 06/18/2023). Follow-up and Disposition History for Encounter Date Provider Department Center 05/21/2023 [id number] (more content not included)... Normal [facility] Cb 05-20-2023 CNPN Telephone (AGPOB1) SANJUANITA JERRY ([id number]) 1965 F Date Time Provider Department 05/20/23 BHARATI RIGGS During your visit today, we recorded the following information about you: Jefe Colindres 05/20/2023 10:40 AM Signed ----- Message from Jane Kingston sent at 05/20/2023 9:07 AM EST ----- Regarding: Chad-Keely- leg amputation follow up Patient has been identified by name and Date of (Y/N): y Patient: Sanjuanita Jerry Date of : 1965 Previous Provider Seen: Keely Body Part(s) Identified: r leg Diagnosis/Reason For Visit: amputation on leg- concern about bone on leg- also this past week had sore that busted open Reason for the call/escalation: rfv not in tool If reason for call/escalation is discharge from ED/ER or Hospital, which facility was the patient seen at: n/a Was an appointment scheduled (Y/N): n/a Person calling if other than patient: n/a Return call to if other than patient: n/a Best contact number: [phone] Thank you, Jane Kingston May 20, 2023 9:07 AM Jefe Colindres 05/20/2023 10:40 AM Signed Called PT and scheduled appt. Jefe Colindres May 20, 2023 10:40 AM Allergies As of Date: 05/20/2023 (No Known Allergies) Date Reviewed: 04/04/2023 Reviewed by: Emelyn Cee LPN - Fully Assessed Reason for Visit: Appointment [186] Prescriptions as of 05/20/2023 - albuterol HFA (PROVENTIL HFA, VENTOLIN HFA) 90 mcg/actuation inhaler Inhale 2 Puffs as instructed every 4 hours as needed for wheezing/shortness of breath. - lisinopril (ZESTRIL) 5 mg tablet Take 1 tablet by mouth once daily. - Cholecalciferol, Vitamin D3, (VITAMIN D) 25 mcg (1,000 unit) cap Take 2 capsules by mouth once daily. Taking 2,000 units daily - urea (CARMOL) 40 % Apply to affected area once daily. - atorvastatin (LIPITOR) 40 mg tablet Take 1 tablet by mouth daily at bedtime. For cholesterol. - metFORMIN (GLUCOPHAGE) 1,000 mg tablet Take 1,000 mg by mouth twice daily with meals. - glipiZIDE (GLUCOTROL) 5 mg tablet Take 5 mg by mouth once daily. - ferrous sulfate 325 mg (65 mg iron) tablet Take 325 mg by mouth. - blood sugar diagnostic(SwitchboardCK TEST STRIPS) Test blood sugars twice daily. - blood-glucose meter(TRUETRACK BLOOD GLUCOSE SYSTEM KIT) Test glucose as directed - blood-glucose control, low(TRUETRACK GLUCOSE SOLN) Test controls as needed - LANCETS Test blood sugars once daily, 250.00, non insulin dep Meds Comments as of 02/25/2014: Problem List As Of Date 05/20/2023 Noted Resolved COUGH [R05.9] 05/19/2007 09/29/2007 GOITER NOS [E04.9] 09/29/2007 DM type 2 with diabetic peripheral neuropathy (*09/29/2007 Anxiety [F41.9] 10/14/2009 Hypertension [I10] 01/24/2010 Depression [F32.A] 01/30/2010 Abnormal mammogram [R92.8] 07/13/2013 Gas gangrene of extremity (HCC) [A48.0] 05/31/2022 MRSA bacteremia [R78.81, B95.62] 06/04/2022 Infection due to anaerobes [A49.8] 06/04/2022 Peripherally inserted central catheter (PICC) i*06/06/2022 Coronary artery calcification [I25.10, I25.84] 11/2022 S/P BKA (below knee amputation) (HCC) [Z89.519] 05/31/2022 Tobacco use disorder [F17.200] 02/01/2023 Encounter Status:Closed by JEFE COLINDRES on 05/20/23 [facility] Anaerobic cultureOrdered By: Jillian Livingston on 05-16-2023 Bacteria identified Anaer cx Nom (Unsp spec) No anaerobic bacteria isolated. [facility] Bacteria identified Cx Nom ( Wound)Ordered By: Jillian Livingston on 05-16-2023 Wound Culture Meth. resistant Staph. aureus [facility] Gram stain for investigation of transfusion reactionOrdered By: Jillian Livingston on 05-16-2023 Microscopic observation Gram stain Nom (Unsp spec) [facility] Basophil percentageOrdered B y: Millie Sharif on 04-17-2023 Cholesterol [Mass/Vol] 166 mg/dL <200 [facility] Comment on above: <200 mg/dL Desirable 200-240 mg/dL Borderline >240 mg/dL High Risk Triglyceride [Mass/Vol] 89 mg/dL <199 [facility] Comment on above: The drugs N-Acetylcy steine and Metamizole may falsely depress this assay.Serum Triglycerides Reference Interval Normal <150 mg/dL Borderline high 150 - 199 mg/dL High 200 - 499 mg/dL Very High > or = 500 mg/dL High density lipoprotein (HD L) measurementOrdered By: Millie Sharif on 04-17-2023 Cholesterol in HDL (Body fld) [Mass/Vol] 103 mg/dL >40 [facility] Comment on above: The drugs N-Acetylcy steine and Metamizole may falsely depress this assay. Reference Range HDL <40 mg/dL Low HDL Cholesterol HDL >or= 60 mg/dL High HDL Cholesterol Low density lipoprotein (LDL ) cholesterol measurementOrdered By: Millie Sharif on 04-17-2023 Cholesterol in LDL (Body fld) [Moles/Vol] 45 mg/dL 0-130 [facility] No Panel InformationOrdered By: Millie Sharif on 04-17-2023 Vitamin D 25-Hydroxy 27.8 ng/mL [facility] Comment on above: Vitamin D 25(OH) Sta tus Range Deficiency <20 ng/mL (50nmol/L) Insufficiency 20 - 30 ng/mL (50 - 75 nmol/L) Sufficiency 30 - 100 ng/mL (75 - 250 nmol/L) Toxicity >100 ng/mL (>250 nmol/L) Serum or plasma thyroid stim ulating hormone (TSH) measurement (units/volume)Ordered By: Millie Sharif on 04-17-2023 TSH Qn 0.47 uIU/mL 0.358-3.74 [facility] Very low density lipoprotein (VLDL) cholesterol measurementOrdered By: Millie Sharif on 04-17-2023 Cholesterol in VLDL Calc [Moles/Vol] 18 mg/dL 5-40 [facility] Absolute lymphocyte countOrd ered By: Sandie Monson on 03-01-2023 Lymphocytes Auto (Unsp spec) [#/Vol] 0.73 10*3/uL 0.83-4.51 [facility] Basophil percentageOrdered B y: Sandie Monson on 03-01-2023 Basophils/100 WBC (Bld) 0.7 % 0-1 [facility] Chloride [Moles/Vol] 107 mmol/L 98-107 [facility] Eosinophils/100 WBC (Bld) 2.6 % 0-5 [facility] Glucose [Mass/Vol] 154 mg/dL 74-106 [facility] Comment on above: Fasting Glucose resu lt greater than or equal to 126 mg/dL suggests DIABETES MELLITUS per A.D.A. criteria. Neutrophils (Bld) [#/Vol] 5.9 10*3/uL 2.0-7.7 [facility] Neutrophils/100 WBC (Bld) 79.2 % 47-70 [facility] Potassium [Moles/Vol] 3.3 mmol/L 3.5-5.1 [facility] Sodium [Moles/Vol] 140 mmol/L 136-145 [facility] WBC (Bld) [#/Vol] 7.4 10*3/uL 4.4-11.0 [facility] Blood erythrocytes count (nu mber/volume)Ordered By: Sandie Monson on 03-01-2023 RBC (Bld) [#/Vol] 2.73 10*6/uL 4.2-5.4 [facility] Blood hemoglobin measurement (mass/volume)Ordered By: Sandie Monson on 03-01-2023 Hemoglobin (Bld) [Mass/Vol] 8.4 g/dL 12.0-15.0 [facility] Blood lymphocytes/100 leukoc ytesOrdered By: Sandie Monson on 03-01-2023 Lymphocytes/100 WBC (Bld) 9.8 % 19-41 [facility] Blood monocytes/100 leukocyt esOrdered By: Sandie Monson on 03-01-2023 Monocytes/100 WBC (Bld) 7.3 % 0-10 [facility] Blood platelet adequacy dete ction by light microscopyOrdered By: Sandie Monson on 03-01-2023 Platelets LM Ql (Bld) ADEQUATE ADEQ [facility] Blood platelet mean volumeOr dered By: Sandie Monson on 03-01-2023 Platelet mean volume (Bld) [Entitic vol] 11.8 fL 6.2-12.0 [facility] Determination of erythrocyte mean corpuscular volume (MCV)Ordered By: Sandie Monson on 03-01-2023 MCV (RBC) [Entitic vol] 92.3 fL 81-99 [facility] Glucose Glucometer (BldC) [M ass/Vol]Ordered By: Sandie Monson on 03-01-2023 Glucose [Mass/Vol] 191 mg/dL 74-106 [facility] Comment on above: MANAGEMENT OF PATIEN T CARE PER NURSING PROTOCOL Hematocrit Auto (Bld) [Volum e fraction]Ordered By: Sandie Monson on 03-01-2023 Hematocrit (Bld) [Volume fraction] 25.2 % 37-47 [facility] - Chemistry and C hemistry - challengeOrdered By: Sandie Monson on 03-01-2023 CO2 [Moles/Vol] 26.0 mmol/L 21.0-32.0 [facility] Urea nitrogen/Creatinine [Mass ratio] 35.2 mg/mg 10-20 [facility] - Hematology and Cell countsOrdered By: Sandie Monson on 03-01-2023 Erythrocyte distribution width (RBC) [Entitic vol] 41.3 fL 35.1-43.9 [facility] Erythrocyte distribution width (RBC) [Ratio] 12.3 % 11.6-14.6 [facility] Immature granulocytes/100 WBC (Bld) 0.400 % 0.0-0.9 [facility] Comment on above: IG% - Immature Granu locytes (promyelocytes, myelocytes and metamyelocytes) > 1% indicates that a LEFT SHIFT is Present. MCH (RBC) [Entitic mass] 30.8 pg 27.0-32.0 [facility] Nucleated RBC/100 WBC (Bld) [Ratio] 0 % 0-5 [facility] MCHC Auto (RBC) [Mass/Vol]Or dered By: Sandie Monson on 03-01-2023 MCHC (RBC) [Mass/Vol] 33.3 g/dL 32-36 [facility] No Panel InformationOrdered By: Sandie Monson on 03-01-2023 Estimated Creatinine Clearance Calc 82.72 ml/min [facility] Estimated GFR (MDRD) Amer 150 mL/min >60 [facility] Comment on above: GFR Calc Estimated GFR (MDRD) Non-Af Amer 124 mL/min >60 [facility] Comment on above: Non- GFR Calc Platelets bldOrdered By: Blossom Monson on 03-01-2023 Platelets (Bld) [#/Vol] See comment 150-450 [facility] Comment on above: Please note: For thi s sample, a platelet estimate is provided rather than a platelet count due to platelet clumping. Other parameters associated with this sample are not affected by platelet clumping. If a more accurate platelet count is required, a redraw of the patient will be necessary. Serum or plasma calcium jacobo urement (mass/volume)Ordered By: Sandie Monson on 03-01-2023 Calcium [Mass/Vol] 9.1 mg/dL 8.5-10.1 [facility] Serum or plasma creatinine m easurement (mass/volume)Ordered By: Sandie Monson on 03-01-2023 Creatinine [Mass/Vol] 0.54 mg/dL 0.55-1.02 [facility] Comment on above: The validity of the calculated GFR & GFRAA in patients over 70 years has not been determined. Clinical correlation is essential. Serum or plasma trough vanco mycin levelOrdered By: Sandie Monson on 03-01-2023 Vancomycin trough [Mass/Vol] 15.1 ug/mL 5.0-15.0 [facility] Comment on above: VANCOMYCIN STANDARED DRUG THERAPY TROUGH LEVEL: 5.0 - 15.0 mg/L VANCOMYCIN HIGH INTENSITY THERAPY TROUGH LEVEL: 15.0 - 20.0 mg/L High Intensity therapy recommended for serious lifethreatening infections include:- Bfhydjuopm-Kapsekipszby-Lskkdkxfx (Ventilator/Healtcare Associated)-Sepsis PLEASE CONTACT PHARMACY SERVICES (#[id number]) FOR INTERPRETATIONOF RESULTS. Serum or plasma urea nitroge n measurement (mass/volume)Ordered By: Sandie Monson on 03-01-2023 Urea nitrogen [Mass/Vol] 19 mg/dL 7-18 [facility] Thin prep Papanicolaou smear with manual screeningOrdered By: Sandie Monson on 03-01-2023 Thin prep Papanicolaou smear with manual screening 7 5-15 [facility] Iron measurement (mass/mass) Ordered By: Sandie Monson on 02-28-2023 Iron (Unsp spec) [Mass/Mass] 22 ug/dL 50-170 [facility] No Panel InformationOrdered By: Sandie Monson on 02-28-2023 Total Iron Binding Capacity 279 ug/dL 250-450 [facility] Serum or plasma ferritin brant surement (mass/volume)Ordered By: Sandie Monson on 02-28-2023 Ferritin [Mass/Vol] 226 ng/mL 8-252 [facility] Serum or plasma iron saturat ion measurement (mass fraction)Ordered By: Sandie Monson on 02-28-2023 Iron saturation [Mass fraction] 7.9 % 15.0-55.0 [facility] Basophil percentageOrdered B y: Sandie Monson on 02-27-2023 Bilirubin [Mass/Vol] 0.40 mg/dL 0.20-1.00 [facility] Comment on above: For patients on eltr ombopag therapy, use of Dimension [place] TBIL is not recommended. Protein [Mass/Vol] 5.6 g/dL 6.4-8.2 [facility] Direct bilirubinOrdered By: Sandie Monson on 02-27-2023 Bilirubin.direct [Mass/Vol] 0.18 mg/dL 0.00-0.30 [facility] - Chemistry and C hemistry - challengeOrdered By: Sandie Monson on 02-27-2023 ALP [Catalytic activity/Vol] 88 U/L 45-117 [facility] ALT [Catalytic activity/Vol] 26 U/L 13-56 [facility] Globulin (S) [Mass/Vol] 3.4 g/dL 2.2-4.2 [facility] Serum or plasma albumin jacobo urement (mass/volume)Ordered By: Sandie Monson on 02-27-2023 Albumin [Mass/Vol] 2.2 g/dL 3.2-5.0 [facility] Thin prep Papanicolaou smear with manual screeningOrdered By: Sandie Monson on 02-27-2023 Thin prep Papanicolaou smear with manual screening 22 U/L 1537 [facility] Absolute lymphocyte countOrd ered By: Adrien Godoy on 02-26-2023 Lymphocytes Auto (Unsp spec) [#/Vol] 1.21 10*3/uL 0.83-4.51 [facility] Bacteria identified Cx Nom ( Wound)Ordered By: Adrien Godoy on 02-26-2023 Wound Culture Meth. resistant Staph. aureus [facility] Wound Culture Enterobacter cloacae complex [facility] Wound Culture Meth. resistant Staph. aureus [facility] Wound Culture Enterobacter cloacae complex [facility] Basophil percentageOrdered B y: Adrien Godoy on 02-26-2023 Basophils/100 WBC (Bld) 0.6 % 0-1 [facility] Bilirubin [Mass/Vol] 0.60 mg/dL 0.20-1.00 [facility] Comment on above: For patients on eltr ombopag therapy, use of Dimension [place] TBIL is not recommended. Chloride [Moles/Vol] 104 mmol/L 98-107 [facility] Eosinophils/100 WBC (Bld) 0.2 % 0-5 [facility] Glucose [Mass/Vol] 201 mg/dL 74-106 [facility] Comment on above: Glucose result great er than or equal to 200 mg/dLsuggests DIABETES MELLITUS per A.D.A. criteria. Lactate [Moles/Vol] 1.4 mmol/L 0.4-2.0 [facility] Neutrophils (Bld) [#/Vol] 10.1 10*3/uL 2.0-7.7 [facility] Neutrophils/100 WBC (Bld) 80.2 % 47-70 [facility] Potassium [Moles/Vol] 3.8 mmol/L 3.5-5.1 [facility] Protein [Mass/Vol] 7.0 g/dL 6.4-8.2 [facility] Sodium [Moles/Vol] 135 mmol/L 136-145 [facility] WBC (Bld) [#/Vol] 12.5 10*3/uL 4.4-11.0 [facility] Blood erythrocytes count (nu mber/volume)Ordered By: Adrien Godoy on 02-26-2023 RBC (Bld) [#/Vol] 3.10 10*6/uL 4.2-5.4 [facility] Blood hemoglobin measurement (mass/volume)Ordered By: Adrien Godoy on 02-26-2023 Hemoglobin (Bld) [Mass/Vol] 9.6 g/dL 12.0-15.0 [facility] Blood lymphocytes/100 leukoc ytesOrdered By: Adrien Godoy on 02-26-2023 Lymphocytes/100 WBC (Bld) 9.7 % 19-41 [facility] Blood monocytes/100 leukocyt esOrdered By: Adrienmicky Godoy on 02-26-2023 Monocytes/100 WBC (Bld) 8.9 % 0-10 [facility] Blood platelet mean volumeOr dered By: Adrien Godoy on 02-26-2023 Platelet mean volume (Bld) [Entitic vol] 10.3 fL 6.2-12.0 [facility] Determination of erythrocyte mean corpuscular volume (MCV)Ordered By: Adrien Godoy on 02-26-2023 MCV (RBC) [Entitic vol] 91.9 fL 81-99 [facility] Erythrocyte sedimentation ra teOrdered By: Adrienmicky Godoy on 02-26-2023 ESR (Bld) [Velocity] 35 mm/h 0-30 [facility] Gram stain for investigation of transfusion reactionOrdered By: Adrienmicky Godoy on 02-26-2023 Microscopic observation Gram stain Nom (Unsp spec) [facility] Microscopic observation Gram stain Nom (Unsp spec) [facility] Hematocrit Auto (Bld) [Volum e fraction]Ordered By: Adrien Godoy on 02-26-2023 Hematocrit (Bld) [Volume fraction] 28.5 % 37-47 [facility] - Chemistry and C hemistry - challengeOrdered By: Adrienmicky Godoy on 02-26-2023 ALP [Catalytic activity/Vol] 106 U/L 45-117 [facility] ALT [Catalytic activity/Vol] 15 U/L 13-56 [facility] CO2 [Moles/Vol] 26.0 mmol/L 21.0-32.0 [facility] Globulin (S) [Mass/Vol] 4.0 g/dL 2.2-4.2 [facility] Urea nitrogen/Creatinine [Mass ratio] 15.4 mg/mg 10-20 [facility] - Hematology and Cell countsOrdered By: Adrienmicky Godoy on 02-26-2023 Erythrocyte distribution width (RBC) [Entitic vol] 40.8 fL 35.1-43.9 [facility] Erythrocyte distribution width (RBC) [Ratio] 12.2 % 11.6-14.6 [facility] Immature granulocytes/100 WBC (Bld) 0.400 % 0.0-0.9 [facility] Comment on above: IG% - Immature Granu locytes (promyelocytes, myelocytes and metamyelocytes) > 1% indicates that a LEFT SHIFT is Present. MCH (RBC) [Entitic mass] 31.0 pg 27.0-32.0 [facility] Nucleated RBC/100 WBC (Bld) [Ratio] 0 % 0-5 [facility] - Microbiology an d Antimicrobial susceptibilityOrdered By: Sandie Monson on 02-26-2023 Bacteria identified Cx Nom (Bld) No growth in 5 days. [facility] MCHC Auto (RBC) [Mass/Vol]Or dered By: Adrien Godoy on 02-26-2023 MCHC (RBC) [Mass/Vol] 33.7 g/dL 32-36 [facility] No Panel InformationOrdered By: Adrien Godoy on 02-26-2023 Estimated GFR (MDRD) Amer 108 mL/min >60 [facility] Comment on above: GFR Calc Estimated GFR (MDRD) Non-Af Amer 90 mL/min >60 [facility] Comment on above: Non- GFR Calc Platelets bldOrdered By: Adrien Godoy on 02-26-2023 Platelets (Bld) [#/Vol] 219 10*3/uL 150-450 [facility] Serum or plasma albumin jacobo urement (mass/volume)Ordered By: Adrien Godoy on 02-26-2023 Albumin [Mass/Vol] 3.0 g/dL 3.2-5.0 [facility] Serum or plasma albumin/glob ulin mass ratioOrdered By: Adrien Godoy on 02-26-2023 Albumin/Globulin [Mass ratio] 0.8 {ratio} 0.9-2.4 [facility] Serum or plasma calcium jacobo urement (mass/volume)Ordered By: Adrien Godoy on 02-26-2023 Calcium [Mass/Vol] 8.9 mg/dL 8.5-10.1 [facility] Serum or plasma creatinine m easurement (mass/volume)Ordered By: Adrien Godoy on 02-26-2023 Creatinine [Mass/Vol] 0.72 mg/dL 0.55-1.02 [facility] Comment on above: The validity of the calculated GFR & GFRAA in patients over 70 years has not been determined. Clinical correlation is essential. Serum or plasma urea nitroge n measurement (mass/volume)Ordered By: Adrien Godoy on 02-26-2023 Urea nitrogen [Mass/Vol] 11 mg/dL 7-18 [facility] Thin prep Papanicolaou smear with manual screeningOrdered By: Adrien Godoy on 02-26-2023 Thin prep Papanicolaou smear with manual screening 14 U/L 15-37 [facility] Thin prep Papanicolaou smear with manual screening 5 5-15 [facility] Whole blood hemoglobin A1c/t otal hemoglobin ratio (mass fraction)Ordered By: Sandie Monson on 02-26-2023 HbA1c (Bld) [Mass fraction] 8.1 % 3.8-5.6 [facility] Comment on above: Normal < 5.7 % Predi abetic 5.7 - 6.4 % Diabetic >or= 6.5 % Please note range changes. Comprehensive metabolic 2000 panelon 02-01-2023 Albumin [Mass/Vol] 4.0 g/dL 3.9 - 4.9 g/dL [facility] ALP [Catalytic activity/Vol] 138 U/L High 34 - 123 U/L [facility] ALT [Catalytic activity/Vol] 23 U/L 7 - 38 U/L [facility] Anion gap [Moles/Vol] 10 mmol/L 9 - 18 mmol/L [facility] AST [Catalytic activity/Vol] 19 U/L 13 - 35 U/L [facility] Bilirubin [Mass/Vol] 0.3 mg/dL 0.2 - 1 .3 mg/dL [facility] Calcium [Mass/Vol] 9.4 mg/dL 8.5 - 10. 2 mg/dL [facility] Chloride [Moles/Vol] 100 mmol/L 97 - 10 5 mmol/L [facility] CO2 [Moles/Vol] 27 mmol/L 22 - 30 mmol/L [facility] Creatinine [Mass/Vol] 0.60 mg/dL 0.58 - 0.96 mg/dL [facility] Estimated Glomerular Filtration Rate 105 mL/min/1.73m >=60 mL/min/1.73m [facility] Glucose [Mass/Vol] 228 mg/dL High 74 - 99 mg/dL [facility] Potassium [Moles/Vol] 4.2 mmol/L 3.7 - 5.1 mmol/L [facility] Protein [Mass/Vol] 6.8 g/dL 6.3 - 8.0 g/dL [facility] Sodium [Moles/Vol] 137 mmol/L 136 - 144 mmol/L [facility] Urea nitrogen [Mass/Vol] 18 mg/dL 7 - 21 mg/d L [facility] LIPID PANEL, NONFASTINGon Cholesterol [Mass/Vol] 211 mg/dL High <200 mg/dL [facility] HDL Cholesterol, Nonfasting 93 mg/dL >39 mg/dL [facility] LDL Cholesterol, Nonfasting 106 mg/dL High <100 mg/dL [facility] LDL/HDL Ratio, Nonfasting 1.14 mg/dL <2.54 mg/dL [facility] Non HDL Cholesterol, Nonfasting 118 mg/dL <130 mg/dL [facility] Total Chol/HDL Ratio, Nonfasting 2.27 mg/dL <5.10 mg/dL [facility] Triglycerides, Nonfasting 61 mg/dL <150 mg/dL [facility] VLDL Cholesterol, Nonfasting 12 mg/dL <30 mg/dL [facility] CNPNon 12-10-2022 [place] [facility] SANJUANITA JERRY ([id number]) 1965 F Date Time Provider Department 12/10/22 NAOMY BERGMAN During your visit today, we recorded the following information about you: Naomy Bergman APRN.[employer] 12/10/2022 1:58 PM Signed Phone call to patient to discuss results LDCT Lung Rads Category 2S-Follow up with CT in 12 mos. Moderate/Severe Coronary artery calcifications-needs cardiology evaluation. Recommended to discuss with PCP. Allergies As of Date: 12/10/2022 (No Known Allergies) Date Reviewed: 12/10/2022 Reviewed by: Dashawn Eli Cma - Fully Assessed Reason for Visit: Results [95] Primary Visit Diagnosis:Tobacco use [Z72.0] Other Visit Diagnosis:Coronary artery calcification seen on CAT scan [I25.10] Order(s):CT LUNG SCREEN WO IVCON [3124161] Order #: [id number] FUTURE CONSULT TO CARDIOLOGY [9004] Order #: [id number]: 1 FUTURE Prescriptions as of 12/10/2022 - albuterol HFA (PROVENTIL HFA, VENTOLIN HFA) 90 mcg/actuation inhaler Inhale 2 Puffs as instructed. - atorvastatin (LIPITOR) 20 mg tablet Take 1 tablet by mouth daily at bedtime. For cholesterol. - lisinopril (ZESTRIL) 5 mg tablet Take 1 tablet by mouth once daily. - metFORMIN (GLUCOPHAGE) 1,000 mg tablet Take 1,000 mg by mouth twice daily with meals. - glipiZIDE (GLUCOTROL) 5 mg tablet Take 5 mg by mouth once daily. - ferrous sulfate 325 mg (65 mg iron) tablet Take 325 mg by mouth. - Cholecalciferol, Vitamin D3, (VITAMIN D) 25 mcg (1,000 unit) cap Take 1,000 Units by mouth once daily. Taking 2,000 units daily - blood sugar diagnostic(TRUETRACK TEST STRIPS) Test blood sugars twice daily. - blood-glucose meter(TRUETRACK BLOOD GLUCOSE SYSTEM KIT) Test glucose as directed - blood-glucose control, low(TRUETRACK GLUCOSE SOLN) Test controls as needed - LANCETS Test blood sugars once daily, 250.00, non insulin dep Meds Comments as of 02/25/2014: Problem List As Of Date 12/10/2022 Noted Resolved COUGH [R05.9] 05/19/2007 09/29/2007 GOITER NOS [E04.9] 09/29/2007 DM type 2 with diabetic peripheral neuropathy (*09/29/2007 Anxiety [F41.9] 10/14/2009 Hypertension [I10] 01/24/2010 Depression [F32.A] 01/30/2010 Abnormal mammogram [R92.8] 07/13/2013 Gas gangrene of extremity (HCC) [A48.0] 05/31/2022 MRSA bacteremia [R78.81, B95.62] 06/04/2022 Infection due to anaerobes [A49.8] 06/04/2022 Peripherally inserted central catheter (PICC) i*06/06/2022 Encounter Status:Closed by NAOMY BERGMAN on 12/10/22 [facility] GALINA SCREENINGon 12-06-2022 [facility] Comprehensive metabolic 2000 panelon 11-02-2022 Albumin [Mass/Vol] 4.0 g/dL 3.9 - 4.9 g/dL [facility] ALP [Catalytic activity/Vol] 103 U/L 34 - 123 U/L [facility] ALT [Catalytic activity/Vol] 16 U/L 7 - 38 U/L [facility] Anion gap [Moles/Vol] 11 mmol/L 9 - 18 mmol/L [facility] AST [Catalytic activity/Vol] 15 U/L 13 - 35 U/L [facility] Bilirubin [Mass/Vol] 0.3 mg/dL 0.2 - 1 .3 mg/dL [facility] Calcium [Mass/Vol] 9.9 mg/dL 8.5 - 10. 2 mg/dL [facility] Chloride [Moles/Vol] 98 mmol/L 97 - 10 5 mmol/L [facility] CO2 [Moles/Vol] 26 mmol/L 22 - 30 mmol/L [facility] Creatinine [Mass/Vol] 0.72 mg/dL 0.58 - 0.96 mg/dL [facility] Estimated Glomerular Filtration Rate 98 mL/min/1.73m >=60 mL/min/1.73m [facility] Glucose [Mass/Vol] 251 mg/dL High 74 - 99 mg/dL [facility] Potassium [Moles/Vol] 4.3 mmol/L 3.7 - 5.1 mmol/L [facility] Protein [Mass/Vol] 7.0 g/dL 6.3 - 8.0 g/dL [facility] Sodium [Moles/Vol] 135 mmol/L Low 136 - 144 mmol/L [facility] Urea nitrogen [Mass/Vol] 16 mg/dL 7 - 21 mg/d L [facility] LIPID PANEL, NONFASTINGon Cholesterol [Mass/Vol] 244 mg/dL High <200 mg/dL [facility] HDL Cholesterol, Nonfasting 72 mg/dL >39 mg/dL [facility] LDL Cholesterol, Nonfasting 135 mg/dL High <100 mg/dL [facility] LDL/HDL Ratio, Nonfasting 1.88 mg/dL <2.54 mg/dL [facility] Non HDL Cholesterol, Nonfasting 172 mg/dL High <130 mg/dL [facility] Total Chol/HDL Ratio, Nonfasting 3.39 mg/dL <5.10 mg/dL [facility] Triglycerides, Nonfasting 186 mg/dL High <150 mg/dL [facility] VLDL Cholesterol, Nonfasting 37 mg/dL High <30 mg/dL [facility] CNCOon 10-23-2022 CNCO Letter Text Normal [facility] CNPNon 10-23-2022 CNPN Telephone (AGPOB1) SANJUANITA JERRY ([id number]) 1965 F Date Time Provider Department 10/23/22 BHARATI RIGGS POB1 During your visit today, we recorded the following information about you: Diego Vega 10/23/2022 3:47 PM Signed The patient called in asking for a return to work letter. Patient confirmed she would like to have the letter mailed to her. Diego Vega October 23, 2022 3:46 PM Allergies As of Date: 10/23/2022 (No Known Allergies) Date Reviewed: 09/25/2022 Reviewed by: Bharati Riggs MD - Fully Assessed Reason for Visit: Patient Question [6917] Prescriptions as of 10/23/2022 - metFORMIN (GLUCOPHAGE) 1,000 mg tablet Take 1,000 mg by mouth daily with breakfast. - glipiZIDE (GLUCOTROL) 5 mg tablet Take 5 mg by mouth twice daily before meals. - ferrous sulfate 325 mg (65 mg iron) tablet Take 325 mg by mouth. - Cholecalciferol, Vitamin D3, (VITAMIN D) 25 mcg (1,000 unit) cap Take 1,000 Units by mouth once daily. - amLODIPine (NORVASC) 5 mg tablet Take by mouth once daily. - diphenhydrAMINE (BENADRYL ALLERGY) 25 mg tablet Take 25 mg by mouth every 8 hours as needed for itching/rash. - bisacodyl (DULCOLAX) 10 mg supp 10 mg by RECTAL route once daily as needed for constipation. - cloNIDine HCl (CATAPRES) 0.1 mg tablet Take 0.1 mg by mouth twice daily. - mineral oil (DPECD-CB-NXO ENEMA, MIN OIL,) enema 133 mL by RECTAL route as needed for constipation. - glucagon (GLUCAGON EMERGENCY KIT, HUMAN,) 1 mg injection Inject 1 mg subcutaneously as needed. - dextrose (GLUCOSE GEL) 40 % gel Take 15 g by mouth as needed. - heparin 5,000 unit/mL injection Inject 5,000 Units subcutaneously every 12 hours. - lisinopril (ZESTRIL) 40 mg tablet Take 40 mg by mouth once daily. - acetaminophen (TYLENOL) 325 mg tablet Take 650 mg by mouth every 6 hours as needed for pain. - potassium chloride 20 mEq TbER Take 1 tablet by mouth once daily. - pediatric multivitamin no.17 (CHILDREN'S CHEW MULTIVITAMIN) chewable tablet Take 1 tablet by mouth once daily. - polyethylene glycol 3350 (MIRALAX) 17 gram/dose powder Take by mouth once daily. Dissolve dose in 4 - 8 ounces of liquid and take as directed. - magnesium hydroxide (MILK OF MAGNESIA) 400 mg/5 mL suspension Take 5 mL by mouth once daily as needed. - ferrous sulfate 325 mg (65 mg iron) tablet Take 325 mg by mouth. - insulin glargine 100 unit/mL (3 mL) Inject 15 Units subcutaneously daily at bedtime. - insulin lispro (HUMALOG U-100 INSULIN) 100 unit/mL injection Inject 8 Units subcutaneously three times daily before meals. Inject 8 units subcutaneously 3 times daily before meals. - insulin lispro 100 unit/mL injection ADMINISTER CORRECTIONAL INSULIN REGARDLESS OF MEAL OR NUTRITION INTAKE Scale 2 If Blood Glucose (mg/dL) is: Less than 110 Give 0 units 111-150 Give 0 units 151-200 Give 2 units 201-250 Give 4 units 251-300 Give 6 units 301-350 Give 8 units 351-400 Give 10 units Greater than 400 Give 10 units and Notify Provider Notify provider if 2 consecutive blood glucose values in the previous 24 hours are greater than 250 mg/dL and there have been no changes to the insulin regimen in the previous 24 hours. - magnesium oxide (MAG-OX) 400 mg (241.3 mg magnesium) tablet Take 1 tablet by mouth twice daily for 3 doses. - pantoprazole DR (PROTONIX) 40 mg tablet Take 1 tablet by mouth twice daily before meals (0600/1600). - albuterol HFA (PROVENTIL HFA, VENTOLIN HFA) 90 mcg/actuation inhaler Inhale 2 Puffs as instructed every 4 hours as needed. - blood sugar diagnostic(TRUETRACK TEST STRIPS) Test blood sugars twice daily. - blood-glucose meter(TRUETappitCK BLOOD GLUCOSE SYSTEM KIT) Test glucose as directed - blood-glucose control, low(TRUETRACK GLUCOSE SOLN) Test controls as needed - LANCETS Test blood sugars once daily, 250.00, non insulin dep Meds Comments as of 02/25/2014: Problem List As Of Date 10/23/2022 Noted Resolved COUGH [R05.9] 05/19/2007 09/29/2007 GOITER NOS [E04.9] 09/29/2007 DM type 2 with diabetic peripheral neuropathy (*09/29/2007 Anxiety [F41.9] 10/14/2009 Hypertension [I10] 01/24/2010 Depression [F32.A] 01/30/2010 Abnormal mammogram [R92.8] 07/13/2013 Gas gangrene of extremity (HCC) [A48.0] 05/31/2022 MRSA bacteremia [R78.81, B95.62] 06/04/2022 Infection due to anaerobes [A49.8] 06/04/2022 Peripherally inserted central catheter (PICC) i*06/06/2022 Encounter Status:Closed by DIEGO VEGA on 10/23/22 [facility] 09-25-2022 CNOV Office Visit (AGPOB1) SANJUANITA JERRY ([id number]) 1965 F Date Time Provider Department 09/25/22 1:45 PM BHARATI RIGGS AGPOB1 During your visit today, we recorded the following information about you: Respiration Weight Height 16/minute 42.2 kg 1.524 m Bharati Riggs MD 09/25/2022 2:15 PM Signed Chief complaint: Follow-up for right lower extremity amputation. History of present illness: Patient is known to myself. History of gas gangrene and right below-knee amputation. Overall doing well. Has been with the prosthetic [employer] and has a prosthesis. Scheduled to start physical therapy. Overall doing well. For the patient's past medical history, past surgical history, medications, allergies, family history, social history, and review of systems please refer to medical history in chart. Physical exam: The patient is alert and oriented no acute distress. Answers questions appropriate. Has a normal affect. Examination right lower extremity shows satisfactory knee range of motion. All wounds well-healed. No signs of recurrent infection. Assessment: #1 gas gangrene right lower extremity. #2 right below-knee amputation. Plan: At this time she is doing extremely well. A prescription for outpatient physical therapy was provided. She will work on getting her strength and confidence back in her right lower extremity and with activities of daily living. When she is ready to return to work, she can contact our office for return to work note. I will see her back on an as-needed basis. If there is any questions or concerns in the future, she will contact the office. Questions answered. Allergies As of Date: 09/25/2022 (No Known Allergies) Date Reviewed: 09/25/2022 Reviewed by: Bharati Riggs MD - Fully Assessed Reason for Visit: Established Patient [175] Cmt: R BKA, denies pain. Has had two falls since last OV. Follow Up [171] Cmt: R BKA, denies pain. Has had two falls since last OV. Primary Visit Diagnosis:Gas gangrene of extremity (HCC) [A48.0] Other Visit Diagnosis:Below knee amputation (HCC) [S88.119A] Order(s):CONSULT TO PHYSICAL THERAPY (AG) [[id number]] Order #: [id number]: 1 Prescriptions as of 09/25/2022 - metFORMIN (GLUCOPHAGE) 1,000 mg tablet Take 1,000 mg by mouth daily with breakfast. - glipiZIDE (GLUCOTROL) 5 mg tablet Take 5 mg by mouth twice daily before meals. - ferrous sulfate 325 mg (65 mg iron) tablet Take 325 mg by mouth. - Cholecalciferol, Vitamin D3, (VITAMIN D) 25 mcg (1,000 unit) cap Take 1,000 Units by mouth once daily. - amLODIPine (NORVASC) 5 mg tablet Take by mouth once daily. - diphenhydrAMINE (BENADRYL ALLERGY) 25 mg tablet Take 25 mg by mouth every 8 hours as needed for itching/rash. - bisacodyl (DULCOLAX) 10 mg supp 10 mg by RECTAL route once daily as needed for constipation. - cloNIDine HCl (CATAPRES) 0.1 mg tablet Take 0.1 mg by mouth twice daily. - mineral oil (TOWIF-GV-YFB ENEMA, MIN OIL,) enema 133 mL by RECTAL route as needed for constipation. - glucagon (GLUCAGON EMERGENCY KIT, HUMAN,) 1 mg injection Inject 1 mg subcutaneously as needed. - dextrose (GLUCOSE GEL) 40 % gel Take 15 g by mouth as needed. - heparin 5,000 unit/mL injection Inject 5,000 Units subcutaneously every 12 hours. - lisinopril (ZESTRIL) 40 mg tablet Take 40 mg by mouth once daily. - acetaminophen (TYLENOL) 325 mg tablet Take 650 mg by mouth every 6 hours as needed for pain. - potassium chloride 20 mEq TbER Take 1 tablet by mouth once daily. - pediatric multivitamin no.17 (CHILDREN'S CHEW MULTIVITAMIN) chewable tablet Take 1 tablet by mouth once daily. - polyethylene glycol 3350 (MIRALAX) 17 gram/dose powder Take by mouth once daily. Dissolve dose in 4 - 8 ounces of liquid and take as directed. - magnesium hydroxide (MILK OF MAGNESIA) 400 mg/5 mL suspension Take 5 mL by mouth once daily as needed. - ferrous sulfate 325 mg (65 mg iron) tablet Take 325 mg by mouth. - insulin glargine 100 unit/mL (3 mL) Inject 15 Units subcutaneously daily at bedtime. - insulin lispro (HUMALOG U-100 INSULIN) 100 unit/mL injection Inject 8 Units subcutaneously three times daily before meals. Inject 8 units subcutaneously 3 times daily before meals. - insulin lispro 100 unit/mL injection ADMINISTER CORRECTIONAL INSULIN REGARDLESS OF MEAL OR NUTRITION INTAKE Scale 2 If Blood Glucose (mg/dL) is: Less than 110 Give 0 units 111-150 Give 0 units 151-200 Give 2 units 201-250 Give 4 units 251-300 Give 6 units 301-350 Give 8 units 351-400 Give 10 units Greater than 400 Give 10 units and Notify Provider Notify provider if 2 consecutive blood glucose values in the previous 24 hours are greater than 250 mg/dL and there have been no changes to the insulin regimen in the previous 24 hours. - magnesium oxide (MAG-OX) 400 mg (241.3 mg magnesium) tablet Take 1 tablet by mouth twice (more content not included)... Normal [facility] Basophil percentageOrdered B y: Millie Sharif on 09-20-2022 Bilirubin [Mass/Vol] 0.40 mg/dL 0.20-1.00 [facility] Comment on above: For patients on eltr ombopag therapy, use of Dimension [place] TBIL is not recommended. Chloride [Moles/Vol] 101 mmol/L 98-107 [facility] Glucose [Mass/Vol] 266 mg/dL 74-106 [facility] Comment on above: Glucose result great er than or equal to 200 mg/dLsuggests DIABETES MELLITUS per A.D.A. criteria. Potassium [Moles/Vol] 3.6 mmol/L 3.5-5.1 [facility] Protein [Mass/Vol] 7.1 g/dL 6.4-8.2 [facility] Sodium [Moles/Vol] 136 mmol/L 136-145 [facility] Laboratory - Chemistry and C hemistry - challengeOrdered By: Millie Sharif on 09-20-2022 ALP [Catalytic activity/Vol] 108 U/L 45-117 [facility] ALT [Catalytic activity/Vol] 18 U/L 13-56 [facility] CO2 [Moles/Vol] 31.0 mmol/L 21.0-32.0 [facility] Globulin (S) [Mass/Vol] 4.0 g/dL 2.2-4.2 [facility] Urea nitrogen/Creatinine [Mass ratio] 14.1 mg/mg 10-20 [facility] Laboratory - Hematology and Cell countson 09-20-2022 HbA1c (Bld) [Mass fraction] 10.1 % 4.2-6.3 [facility] No Panel InformationOrdered By: Millie Sharif on 09-20-2022 Estimated GFR (MDRD) Amer 110 mL/min >60 [facility] Comment on above: GFR Calc Estimated GFR (MDRD) Non-Af Amer 91 mL/min >60 [facility] Comment on above: Non- GFR Calc Serum or plasma albumin jacobo urement (mass/volume)Ordered By: Millie Sharif on 09-20-2022 Albumin [Mass/Vol] 3.1 g/dL 3.2-5.0 [facility] Serum or plasma albumin/glob ulin mass ratioOrdered By: Millie Sharif on 09-20-2022 Albumin/Globulin [Mass ratio] 0.8 {ratio} 0.9-2.4 [facility] Serum or plasma calcium jacobo urement (mass/volume)Ordered By: Millie Sharif on 09-20-2022 Calcium [Mass/Vol] 9.2 mg/dL 8.5-10.1 [facility] Serum or plasma creatinine m easurement (mass/volume)Ordered By: Millie Sharif on 09-20-2022 Creatinine [Mass/Vol] 0.71 mg/dL 0.55-1.02 [facility] Comment on above: The validity of the calculated GFR & GFRAA in patients over 70 years has not been determined. Clinical correlation is essential. Serum or plasma urea nitroge n measurement (mass/volume)Ordered By: Millie Sharif on 09-20-2022 Urea nitrogen [Mass/Vol] 10 mg/dL 7-18 [facility] Thin prep Papanicolaou smear with manual screeningOrdered By: Millie Sharif on 09-20-2022 Thin prep Papanicolaou smear with manual screening 14 U/L 15-37 [facility] Thin prep Papanicolaou smear with manual screening 4 5-15 [facility] Basophil percentageOrdered B y: Cynthia Fulton on 07-31-2022 Bilirubin [Mass/Vol] 0.30 mg/dL 0.20-1.00 [facility] Comment on above: For patients on eltr ombopag therapy, use of Dimension [place] TBIL is not recommended. Chloride [Moles/Vol] 103 mmol/L 98-107 [facility] Glucose [Mass/Vol] 245 mg/dL 74-106 [facility] Comment on above: Glucose result great er than or equal to 200 mg/dLsuggests DIABETES MELLITUS per A.D.A. criteria. Potassium [Moles/Vol] 2.9 mmol/L 3.5-5.1 [facility] Protein [Mass/Vol] 7.5 g/dL 6.4-8.2 [facility] Sodium [Moles/Vol] 138 mmol/L 136-145 [facility] WBC (Bld) [#/Vol] 8.9 10*3/uL 4.4-11.0 [facility] Blood erythrocytes count (nu mber/volume)Ordered By: Cynthia Fulton on 07-31-2022 RBC (Bld) [#/Vol] 3.99 10*6/uL 4.2-5.4 [facility] Blood hemoglobin measurement (mass/volume)Ordered By: Cynthia Fulton on 07-31-2022 Hemoglobin (Bld) [Mass/Vol] 12.1 g/dL 12.0-15.0 [facility] Blood platelet mean volumeOr dered By: Cynthia Fulton on 07-31-2022 Platelet mean volume (Bld) [Entitic vol] 11.0 fL 6.2-12.0 [facility] Determination of erythrocyte mean corpuscular volume (MCV)Ordered By: Cynthia Fulton on 07-31-2022 MCV (RBC) [Entitic vol] 87.7 fL 81-99 [facility] Hematocrit Auto (Bld) [Volum e fraction]Ordered By: Cynthia Fulton on 07-31-2022 Hematocrit (Bld) [Volume fraction] 35.0 % 37-47 [facility] Laboratory - Chemistry and C hemistry - challengeOrdered By: Cynthia Fulton on 07-31-2022 ALP [Catalytic activity/Vol] 179 U/L 45-117 [facility] ALT [Catalytic activity/Vol] 15 U/L 13-56 [facility] CO2 [Moles/Vol] 25.0 mmol/L 21.0-32.0 [facility] Globulin (S) [Mass/Vol] 4.5 g/dL 2.2-4.2 [facility] Urea nitrogen/Creatinine [Mass ratio] 16.3 mg/mg 10-20 [facility] Laboratory - Hematology and Cell countsOrdered By: Cynthia Fulton on 07-31-2022 Erythrocyte distribution width (RBC) [Entitic vol] 44.4 fL 35.1-43.9 [facility] Erythrocyte distribution width (RBC) [Ratio] 13.8 % 11.6-14.6 [facility] MCH (RBC) [Entitic mass] 30.3 pg 27.0-32.0 [facility] MCHC Auto (RBC) [Mass/Vol]Or dered By: Cynthia Fulton on 07-31-2022 MCHC (RBC) [Mass/Vol] 34.6 g/dL 32-36 [facility] No Panel InformationOrdered By: Cynthia Fulton on 07-31-2022 Estimated GFR (MDRD) Amer 96 mL/min >60 [facility] Comment on above: GFR Calc Estimated GFR (MDRD) Non-Af Amer 79 mL/min >60 [facility] Comment on above: Non- GFR Calc Vitamin D 25-Hydroxy 65.2 ng/mL [facility] Comment on above: Vitamin D 25(OH) Sta tus Range Deficiency <20 ng/mL (50nmol/L) Insufficiency 20 - 30 ng/mL (50 - 75 nmol/L) Sufficiency 30 - 100 ng/mL (75 - 250 nmol/L) Toxicity >100 ng/mL (>250 nmol/L) Platelets bldOrdered By: Gi Fulton on 07-31-2022 Platelets (Bld) [#/Vol] 186 10*3/uL 150-450 [facility] Serum or plasma albumin jacobo urement (mass/volume)Ordered By: Cynthia Fulton on 07-31-2022 Albumin [Mass/Vol] 3.0 g/dL 3.2-5.0 [facility] Serum or plasma albumin/glob ulin mass ratioOrdered By: Cynthia Fulton on 07-31-2022 Albumin/Globulin [Mass ratio] 0.7 {ratio} 0.9-2.4 [facility] Serum or plasma calcium jacobo urement (mass/volume)Ordered By: Cynthia Fulton on 07-31-2022 Calcium [Mass/Vol] 9.1 mg/dL 8.5-10.1 [facility] Serum or plasma creatinine m easurement (mass/volume)Ordered By: Cynthia Fulton on 07-31-2022 Creatinine [Mass/Vol] 0.80 mg/dL 0.55-1.02 [facility] Comment on above: The validity of the calculated GFR & GFRAA in patients over 70 years has not been determined. Clinical correlation is essential. Serum or plasma urea nitroge n measurement (mass/volume)Ordered By: Cynthia Fulton on 07-31-2022 Urea nitrogen [Mass/Vol] 13 mg/dL 7-18 [facility] Thin prep Papanicolaou smear with manual screeningOrdered By: Cynthia Fulton on 07-31-2022 Thin prep Papanicolaou smear with manual screening 14 U/L 15-37 [facility] Thin prep Papanicolaou smear with manual screening 10 5-15 [facility] Thin prep Papanicolaou smear with manual screening 6420.0 mg/L NO RANGE EST. [facility] Whole blood hemoglobin A1c/t otal hemoglobin ratio (mass fraction)Ordered By: Cynthia Fulton on 07-31-2022 HbA1c (Bld) [Mass fraction] 8.0 % 3.8-5.6 [facility] Comment on above: Normal < 5.7 % Predi abetic 5.7 - 6.4 % Diabetic >or= 6.5 % Please note range changes. CREATININE BLOOD (AK,AV,EU,F V,HL,SLAVA,MM,SP)on 06-29-2022 Creatinine [Mass/Vol] 0.8 mg/dL 0.70 - 1.20 mg/dL [facility] GFR AFR AMER 90 mL/MIN 60 mL/MIN [facility] GFR/1.73 sq M.predicted among non-blacks MDRD (S/P/Bld) [Vol rate/Area] 74 mL/min/{1.73_m2} 60 mL/MIN [facility] VANCOMYCIN PRE DOSE (AK)on 0 06-28-2022 Vancomycin Pre 17 ug/mL 10 - 20 ug/mL [facility] VANCOMYCIN PRE DOSE (AK)on 0 06-25-2022 Vancomycin Pre 13.5 ug/mL 10 - 20 ug/mL [facility] CBCDIF (EXTERNAL)on 06-23-19 BASO ABS 0.2 K/uL 0 - 0.2 K/uL [facility] Basophils/100 WBC (Bld) 3.7 % Abnormal 0 - 1.5 % [facility] EOS ABS 0.2 K/uL 0.1 - 0.3 K/uL [facility] Eosinophils/100 WBC (Bld) 4 % Abnormal 1 - 3 % [facility] Erythrocyte distribution width (RBC) [Ratio] 18.5 % Abnormal 11 - 16 % [facility] Hematocrit (Bld) [Volume fraction] 31.8 % Abnormal 39 - 55 % [facility] Hemoglobin (Bld) [Mass/Vol] 10.4 g/dL Abnormal 14 - 16.5 g/dL [facility] Lymphocytes (Bld) [#/Vol] 1.3 10*3/uL 1.2 - 4 K/uL [facility] Lymphocytes/100 WBC (Bld) 22.5 % 20 - 30 % [facility] MCH (RBC) [Entitic mass] 29.1 pg 25. 4 - 34.6 pg [facility] MCHC (RBC) [Mass/Vol] 32.5 g/dL 30 - 36 g/dL [facility] MCV (RBC) [Entitic vol] 89.4 fL 79 - [address] [facility] MONO ABS 0.6 K/uL 0 - 1 K/uL [facility] Monocytes/100 WBC (Bld) 10.6 % Abnormal 2 - 8 % [facility] NEUT ABS 3.4 K/uL 1.9 - 8 K/uL [facility] Neutrophils/100 WBC (Bld) 59.2 % 40 - 74 % [facility] Platelet mean volume (Bld) [Entitic vol] 9.2 fL 7.4 - 10.4 fL [facility] Platelets (Bld) [#/Vol] 192 10*3/uL 140 - 440 K/uL [facility] RBC (Bld) [#/Vol] 3.56 10*6/uL Abnormal 4 - 6 M/uL [facility] WBC (Bld) [#/Vol] 5.8 10*3/uL 3.9 - 11 K/uL [facility] CREATININE BLOOD (AK,AV,EU,F V,HL,SLAVA,MM,SP)on 06-22-2022 Creatinine [Mass/Vol] 0.7 mg/dL 0.70 - 1.20 mg/dL [facility] GFR AFR AMER 105 mL/MIN 60 mL/MIN [facility] GFR/1.73 sq M.predicted among non-blacks MDRD (S/P/Bld) [Vol rate/Area] 87 mL/min/{1.73_m2} 60 mL/MIN [facility] VANCOMYCIN PRE DOSE (AK)on 0 06-22-2022 Vancomycin Pre 2.7 ug/mL Abnormal 10 - 20 ug/mL [facility] Absolute lymphocyte countOrd ered By: Dr. Kaye on 05-31-2022 Lymphocytes Auto (Unsp spec) [#/Vol] 0.61 10*3/uL 0.83-4.51 [facility] Basophil percentageOrdered B y: Dr. Kaye on 05-31-2022 Basophils/100 WBC (Bld) 0.3 % 0-1 [facility] Bilirubin [Mass/Vol] 0.80 mg/dL 0.20-1.00 [facility] Comment on above: For patients on eltr ombopag therapy, use of Dimension [place] TBIL is not recommended. Chloride [Moles/Vol] 87 mmol/L 98-107 [facility] Eosinophils/100 WBC (Bld) 0.0 % 0-5 [facility] Glucose [Mass/Vol] 392 mg/dL 74-106 [facility] Comment on above: Glucose result great er than or equal to 200 mg/dLsuggests DIABETES MELLITUS per A.D.A. criteria. Lactate [Moles/Vol] 1.7 mmol/L 0.4-2.0 [facility] Neutrophils (Bld) [#/Vol] 21.7 10*3/uL 2.0-7.7 [facility] Neutrophils/100 WBC (Bld) 89.1 % 47-70 [facility] Potassium [Moles/Vol] 3.2 mmol/L 3.5-5.1 [facility] Protein [Mass/Vol] 7.7 g/dL 6.4-8.2 [facility] Sodium [Moles/Vol] 125 mmol/L 136-145 [facility] WBC (Bld) [#/Vol] 24.3 10*3/uL 4.4-11.0 [facility] Blood erythrocytes count (nu mber/volume)Ordered By: Dr. Kaye on 05-31-2022 RBC (Bld) [#/Vol] 2.53 10*6/uL 4.2-5.4 [facility] Blood hemoglobin measurement (mass/volume)Ordered By: Dr. Kaye on 05-31-2022 Hemoglobin (Bld) [Mass/Vol] 7.2 g/dL 12.0-15.0 [facility] Blood lymphocytes/100 leukoc ytesOrdered By: Dr. Kaye on 05-31-2022 Lymphocytes/100 WBC (Bld) 2.5 % 19-41 [facility] Blood manual differential co mment interpretation (narrative result)Ordered By: Dr. Kaye on 05-31-2022 Manual differential comment Jeremías (Bld) [Interp] SCANNED [facility] Blood monocytes/100 leukocyt esOrdered By: Dr. Kaye on 05-31-2022 Monocytes/100 WBC (Bld) 7.0 % 0-10 [facility] Blood platelet adequacy dete ction by light microscopyOrdered By: Dr. Kaye on 05-31-2022 Platelets LM Ql (Bld) MOD INC ADEQ [facility] Blood platelet mean volumeOr dered By: Dr. Kaye on 05-31-2022 Platelet mean volume (Bld) [Entitic vol] 9.5 fL 6.2-12.0 [facility] COVID-19 virus antigen assay Ordered By: Kee Kaye on 05-31-2022 SARS-CoV-2 (COVID-19) Ag IA.rapid Ql (Resp) [facility] COVID-19 virus antigen assay Ordered By: Dr. Kaye on 05-31-2022 SARS-CoV-2 (COVID-19) Ag IA.rapid Ql (Resp) [facility] Determination of erythrocyte mean corpuscular volume (MCV)Ordered By: Dr. Kaye on 05-31-2022 MCV (RBC) [Entitic vol] 81.8 fL 81-99 [facility] Erythrocyte sedimentation ra teOrdered By: Dr. Kaye on 05-31-2022 ESR (Bld) [Velocity] mm/h 0-30 [facility] Hematocrit Auto (Bld) [Volum e fraction]Ordered By: Dr. Kaye on 05-31-2022 Hematocrit (Bld) [Volume fraction] 20.7 % 37-47 [facility] Hypochromatic red blood cell detectionOrdered By: Dr. Kaye on 05-31-2022 Hypochromia Ql (Bld) 1+ [facility] INR in Blood by Coagulation assayOrdered By: Dr. Kaye on 05-31-2022 INR Coag (Bld) [Relative time] 1.4 {INR} [facility] Laboratory - Chemistry and C hemistry - challengeOrdered By: Dr. Kaye on 05-31-2022 ALP [Catalytic activity/Vol] 114 U/L 45-117 [facility] ALT [Catalytic activity/Vol] 16 U/L 13-56 [facility] CO2 [Moles/Vol] 27.0 mmol/L 21.0-32.0 [facility] Globulin (S) [Mass/Vol] 5.5 g/dL 2.2-4.2 [facility] Urea nitrogen/Creatinine [Mass ratio] 31.1 mg/mg 10-20 [facility] - CoagulationOrde red By: Dr. Kaye on 05-31-2022 aPTT Coag (Bld) [Time] 35.9 s 24.1-36.2 [facility] PT Coag (PPP) [Time] 16.3 s 11.7-14.9 [facility] Laboratory - Hematology and Cell countsOrdered By: Dr. Kaye on 05-31-2022 Erythrocyte distribution width (RBC) [Entitic vol] 43.6 fL 35.1-43.9 [facility] Erythrocyte distribution width (RBC) [Ratio] 14.6 % 11.6-14.6 [facility] Immature granulocytes/100 WBC (Bld) 1.100 % 0.0-0.9 [facility] Comment on above: IG% - Immature Granu locytes (promyelocytes, myelocytes and metamyelocytes) > 1% indicates that a LEFT SHIFT is Present. MCH (RBC) [Entitic mass] 28.5 pg 27.0-32.0 [facility] Nucleated RBC/100 WBC (Bld) [Ratio] 0 % 0-5 [facility] - Microbiology an d Antimicrobial susceptibilityOrdered By: Kee Kaye on 05-31-2022 Bacteria identified Cx Nom (Bld) Meth. resistant Staph. aureus [facility] MCHC Auto (RBC) [Mass/Vol]Or dered By: Dr. Kaye on 05-31-2022 MCHC (RBC) [Mass/Vol] 34.8 g/dL 32-36 [facility] No Panel InformationOrdered By: Kee Kaye on 05-31-2022 Bacteria Detection (PCR) Meth. resistant Staph. aureus [facility] No Panel InformationOrdered By: Dr. Kaye on 05-31-2022 Estimated Creatinine Clearance Calc 44.32 ml/min [facility] Estimated GFR (MDRD) Amer 77 mL/min >60 [facility] Comment on above: GFR Calc Estimated GFR (MDRD) Non-Af Amer 64 mL/min >60 [facility] Comment on above: Non- GFR Calc Platelets bldOrdered By: Dr. Kaye on 05-31-2022 Platelets (Bld) [#/Vol] 536 10*3/uL 150-450 [facility] Review by pathologistOrdered By: Dr. Kaye on 05-31-2022 Pathologist review Jeremías (Unsp spec) [Interp] Maricruz fu [facility] Review by pathologistOrdered By: Kee Kaye on 05-31-2022 Pathologist review Jeremías (Unsp spec) [Interp] Reviewed [facility] Comment on above: Previous reported re sult: Maricruz fu Edited by: RGOOD on 05/31/22:1215Neutrophilic leukocytosis.Normocytic anemia.Thrombocytosis.Clinical correlation necessary.Ramos Mendoza M.D. 05/31/22 AMENDED REPORT 05/31/22 1215 PATH REV previously reported as: Maricruz fu Serum or plasma C reactive p rotein measurement (mass/volume)Ordered By: Dr. Kaye on 05-31-2022 CRP [Mass/Vol] 287.00 mg/L 0.0-3.0 [facility] Comment on above: C-Reactive Protein ( CRP) provides useful information for thediagnosis, therapy and monitoring of inflammatory processesand associated diseases. For the evaluation of Relative Riskfor Cardiovascular Disease, a High Sensitivity CRP (HSCRP)should be ordered. Serum or plasma albumin jacobo urement (mass/volume)Ordered By: Dr. Kaye on 05-31-2022 Albumin [Mass/Vol] 2.2 g/dL 3.2-5.0 [facility] Serum or plasma albumin/glob ulin mass ratioOrdered By: Dr. Kaye on 05-31-2022 Albumin/Globulin [Mass ratio] 0.4 {ratio} 0.9-2.4 [facility] Serum or plasma calcium jacobo urement (mass/volume)Ordered By: Dr. Kaye on 05-31-2022 Calcium [Mass/Vol] 9.3 mg/dL 8.5-10.1 [facility] Serum or plasma creatinine m easurement (mass/volume)Ordered By: Dr. Kaye on 05-31-2022 Creatinine [Mass/Vol] 0.96 mg/dL 0.55-1.02 [facility] Comment on above: The validity of the calculated GFR & GFRAA in patients over 70 years has not been determined. Clinical correlation is essential. Serum or plasma urea nitroge n measurement (mass/volume)Ordered By: Dr. Kaye on 05-31-2022 Urea nitrogen [Mass/Vol] 30 mg/dL 7-18 [facility] Stool gastrointestinal hemog lobin detection by immunologic methodOrdered By: Kee Kaye on 05-31-2022 Lower GI hemoglobin IA Ql (Stl) [facility] Stool gastrointestinal hemog lobin detection by immunologic methodOrdered By: Dr. Kaye on 05-31-2022 Lower GI hemoglobin IA Ql (Stl) [facility] Thin prep Papanicolaou smear with manual screeningOrdered By: Dr. Kaye on 05-31-2022 Thin prep Papanicolaou smear with manual screening 19 U/L 15-37 [facility] Thin prep Papanicolaou smear with manual screening 11 5-15 [facility] Basophil percentageOrdered B y: Millei Sharif on 03-21-2022 Bilirubin [Mass/Vol] 0.40 mg/dL 0.20-1.00 [facility] Comment on above: For patients on eltr ombopag therapy, use of Dimension [place] TBIL is not recommended. Chloride [Moles/Vol] 100 mmol/L 98-107 [facility] Cholesterol [Mass/Vol] 177 mg/dL <200 [facility] Comment on above: <200 mg/dL Desirable 200-240 mg/dL Borderline >240 mg/dL High Risk Glucose [Mass/Vol] 200 mg/dL 74-106 [facility] Comment on above: Glucose result great er than or equal to 200 mg/dLsuggests DIABETES MELLITUS per A.D.A. criteria. Potassium [Moles/Vol] 3.9 mmol/L 3.5-5.1 [facility] Protein [Mass/Vol] 8.0 g/dL 6.4-8.2 [facility] Sodium [Moles/Vol] 135 mmol/L 136-145 [facility] Triglyceride [Mass/Vol] 116 mg/dL <199 [facility] Comment on above: The drugs N-Acetylcy steine and Metamizole may falsely depress this assay.Serum Triglycerides Reference Interval Normal <150 mg/dL Borderline high 150 - 199 mg/dL High 200 - 499 mg/dL Very High > or = 500 mg/dL Laboratory - Chemistry and C hemistry - challengeOrdered By: Millie Sharif on 03-21-2022 ALP [Catalytic activity/Vol] 136 U/L 45-117 [facility] ALT [Catalytic activity/Vol] 25 U/L 13-56 [facility] CO2 [Moles/Vol] 29.0 mmol/L 21.0-32.0 [facility] Globulin (S) [Mass/Vol] 4.9 g/dL 2.2-4.2 [facility] Urea nitrogen/Creatinine [Mass ratio] 11.1 mg/mg 10-20 [facility] Laboratory - Hematology and Cell countson 03-21-2022 HbA1c (Bld) [Mass fraction] 7.1 % [facility] No Panel InformationOrdered By: Millie Sharif on 03-21-2022 Estimated GFR (MDRD) Amer 125 mL/min >60 [facility] Comment on above: GFR Calc Estimated GFR (MDRD) Non-Af Amer 103 mL/min >60 [facility] Comment on above: Non- GFR Calc Thyroid Stimulating Hormone (TSH) 0.68 uIU/mL 0.358-3.74 [facility] Vitamin D 25-Hydroxy 19.2 ng/mL [facility] Comment on above: Vitamin D 25(OH) Sta tus Range Deficiency <20 ng/mL (50nmol/L) Insufficiency 20 - 30 ng/mL (50 - 75 nmol/L) Sufficiency 30 - 100 ng/mL (75 - 250 nmol/L) Toxicity >100 ng/mL (>250 nmol/L) Serum or plasma albumin jacobo urement (mass/volume)Ordered By: Millie Sharif on 03-21-2022 Albumin [Mass/Vol] 3.1 g/dL 3.2-5.0 [facility] Serum or plasma albumin/glob ulin mass ratioOrdered By: Millie Sharif on 03-21-2022 Albumin/Globulin [Mass ratio] 0.6 {ratio} 0.9-2.4 [facility] Serum or plasma calcium jacobo urement (mass/volume)Ordered By: Millie Sharif on 03-21-2022 Calcium [Mass/Vol] 9.3 mg/dL 8.5-10.1 [facility] Serum or plasma cholesterol in HDL measurement (mass/volume)Ordered By: Millie Sharif on 03-21-2022 Cholesterol in HDL [Mass/Vol] 83 mg/dL >40 [facility] Comment on above: The drugs N-Acetylcy steine and Metamizole may falsely depress this assay. Reference Range HDL <40 mg/dL Low HDL Cholesterol HDL >or= 60 mg/dL High HDL Cholesterol Serum or plasma cholesterol in VLDL measurement (mass/volume)Ordered By: Millie Sharif on 03-21-2022 Cholesterol in VLDL [Mass/Vol] 23 mg/dL 5-40 [facility] Serum or plasma creatinine m easurement (mass/volume)Ordered By: Millie Sharif on 03-21-2022 Creatinine [Mass/Vol] 0.63 mg/dL 0.55-1.02 [facility] Comment on above: The validity of the calculated GFR & GFRAA in patients over 70 years has not been determined. Clinical correlation is essential. Serum or plasma low density lipoprotein (LDL) cholesterol measurement (mass/volume)Ordered By: Millie Sharif on 03-21-2022 Cholesterol in LDL [Mass/Vol] 71 mg/dL 0-130 [facility] Serum or plasma urea nitroge n measurement (mass/volume)Ordered By: Millie Sharif on 03-21-2022 Urea nitrogen [Mass/Vol] 7 mg/dL 7-18 [facility] Thin prep Papanicolaou smear with manual screeningOrdered By: Millie Sharif on 03-21-2022 Thin prep Papanicolaou smear with manual screening 10 U/L 15-37 [facility] Thin prep Papanicolaou smear with manual screening 6 5-15 [facility] Laboratory - Hematology and Cell countson 12-14-2021 HbA1c (Bld) [Mass fraction] 8.3 % [facility] Basophil percentageon 2021 Chloride [Moles/Vol] 101 mmol/L 98-107 [facility] Work Phone: Glucose [Mass/Vol] 157 mg/dL 74-106 [facility] Work Phone: Comment on above: Fasting Glucose resu lt greater than or equal to 126 mg/dL suggests DIABETES MELLITUS per A.D.A. criteria. Potassium [Moles/Vol] 3.6 mmol/L 3.5-5.1 [facility] Work Phone: Sodium [Moles/Vol] 137 mmol/L 136-145 [facility] Work Phone: Laboratory - Chemistry and C hemistry - challengeon 11-07-2021 CO2 [Moles/Vol] 31.0 mmol/L 21.0-32.0 [facility] Work Phone: Urea nitrogen/Creatinine [Mass ratio] 21.2 mg/mg 10-20 [facility] Work Phone: No Panel Informationon 11-07 Estimated GFR (MDRD) Amer 158 mL/min >60 [facility] Work Phone: Comment on above: GFR Calc Estimated GFR (MDRD) Non-Af Amer 130 mL/min >60 [facility] Work Phone: Comment on above: Non- GFR Calc Serum or plasma calcium jacobo urement (mass/volume)on 11-07-2021 Calcium [Mass/Vol] 8.9 mg/dL 8.5-10.1 [facility] Work Phone: Serum or plasma creatinine m easurement (mass/volume)on 11-07-2021 Creatinine [Mass/Vol] 0.52 mg/dL 0.55-1.02 [facility] Work Phone: Comment on above: The validity of the calculated GFR & GFRAA in patients over 70 years has not been determined. Clinical correlation is essential. Serum or plasma urea nitroge n measurement (mass/volume)on 11-07-2021 Urea nitrogen [Mass/Vol] 11 mg/dL 7-18 [facility] Work Phone: Thin prep Papanicolaou smear with manual screeningon 11-07-2021 Thin prep Papanicolaou smear with manual screening 5 5-15 [facility] Work Phone: Whole blood hemoglobin A1c/t otal hemoglobin ratio (mass fraction)on 11-07-2021 HbA1c (Bld) [Mass fraction] 11.8 % 3.8-5.6 [facility] Work Phone: Comment on above: Normal < 5.7 % Predi abetic 5.7 - 6.4 % Diabetic >or= 6.5 % Please note range changes. Vital Signs Date Time Vital Sign Value Performing Clinician Jailyn lam 11-24-2024 14:19-0400 Diastolic blood pressure 58 mm[Hg] Erica Herman MD Work Phone: [facility] 11-24-2024 14:19-0400 Systolic blood pressure 100 mm[Hg] Erica Herman MD Work Phone: [facility] 11-24-2024 13:58-0400 Body height 152.4 cm Erica Herman MD Work Phone: [facility] 11-24-2024 13:58-0400 Body mass index (BMI) [Ratio] 17.66 kg/m2 Erica Herman MD Work Phone: [facility] 11-24-2024 13:58-0400 Body weight 41.01 kg Erica Herman MD Work Phone: 1(158)209-689022 [place] [address] 11-24-2024 13:58-0400 Heart rate 64 /min Erica Herman MD Work Phone: 9(965)655-338522 [place] [address] 11-24-2024 13:58-0400 SaO2% (BldA) [Mass fraction] 98 % Erica Herman MD Work Phone: 8(938)842-997981 [place] [address] 11-11-2024 13:54-0400 Body temperature 97.8 [degF] Dr. Art Herman MD Work Phone: 3(249)965-901803 [place] [address] 11-11-2024 13:54-0400 Diastolic blood pressure 69 mm[Hg] Dr. Art Herman MD Work Phone: 8(602)253-794003 [place] [address] 11-11-2024 13:54-0400 Heart rate 104 /min Dr. Art Herman MD Work Phone: 5(817)386-123803 [place] [address] 11-11-2024 13:54-0400 Respiratory rate 16 /min Dr. Art Herman MD Work Phone: 0(634)420-106703 [place] [address] 11-11-2024 13:54-0400 Systolic blood pressure 133 mm[Hg] Dr. Art Herman MD Work Phone: 3(723)082-482603 [place] [address] 11-04-2024 11:45-0400 Body height 149.[address] Art Herman MD Work Phone: 2(044)950-669103 [place] [address] 11-04-2024 11:45-0400 Body mass index (BMI) [Ratio] 19.3 kg/m2 Dr. Art Herman MD Work Phone: 7(168)417-383403 [place] [address] 11-04-2024 11:45-0400 Body weight 43.[address] Art Herman MD Work Phone: 7(137)613-169203 [place] [address] 11-04-2024 11:45-0400 Diastolic blood pressure 56 mm[Hg] Dr. Art Herman MD Work Phone: 3(727)327-219403 [place] [address] 11-04-2024 11:45-0400 Heart rate 108 /min Dr. Art Herman MD Work Phone: [facility] 11-04-2024 11:45-0400 SaO2% (BldA) [Mass fraction] 92 % Dr. Art Herman MD Work Phone: [facility] 11-04-2024 11:45-0400 Systolic blood pressure 92 mm[Hg] Dr. Art Herman MD Work Phone: [facility] 10-26-2024 14:29-0400 Body temperature 97.9 [degF] Erica Herman MD Work Phone: [facility] 10-26-2024 14:26-0400 Diastolic blood pressure 52 mm[Hg] Erica Herman MD Work Phone: [facility] 10-26-2024 14:26-0400 Systolic blood pressure 102 mm[Hg] Erica Herman MD Work Phone: [facility] 10-26-2024 13:55-0400 Body height 152.4 cm Erica Herman MD Work Phone: [facility] 10-26-2024 13:55-0400 Body mass index (BMI) [Ratio] 18.75 kg/m2 Erica Herman MD Work Phone: [facility] 10-26-2024 13:55-0400 Body weight 43.55 kg Erica Herman MD Work Phone: [facility] 10-26-2024 13:55-0400 Heart rate 99 /min Erica Herman MD Work Phone: [facility] 10-26-2024 13:55-0400 SaO2% (BldA) [Mass fraction] 100 % Erica Herman MD Work Phone: [facility] 10-14-2024 14:11-0400 Body mass index (BMI) [Ratio] 19.8 kg/m2 Dr. Art Herman MD Work Phone: [facility] 10-14-2024 14:11-0400 Body temperature 97.8 [degF] Dr. Art Herman MD Work Phone: 7(864)787-987303 [place] [address] 10-14-2024 14:11-0400 Diastolic blood pressure 57 mm[Hg] Dr. Art Herman MD Work Phone: 6(950)038-491403 [place] [address] 10-14-2024 14:11-0400 Heart rate 100 /min Dr. Art Herman MD Work Phone: 2(252)608-194003 [place] [address] 10-14-2024 14:11-0400 Respiratory rate 16 /min Dr. Art Herman MD Work Phone: 1(399)868-478703 [place] [address] 10-14-2024 14:11-0400 Systolic blood pressure 121 mm[Hg] Dr. Art Herman MD Work Phone: 2(455)625-581403 [place] [address] 10-07-2024 14:33-0400 Body height 149.[address] Art Herman MD Work Phone: 8(473)353-798903 [place] [address] 10-07-2024 14:33-0400 Body weight 44.[address] Art Herman MD Work Phone: 1(724)484-376703 [place] [address] 08-26-2024 10:55-0400 Body height 151.[address] Art Herman MD Work Phone: 0(266)696-889203 [place] [address] 08-26-2024 10:55-0400 Body mass index (BMI) [Ratio] 19.1 kg/m2 Dr. Art Herman MD Work Phone: 8(516)889-945203 [place] [address] 08-26-2024 10:55-0400 Body weight 43.[address] Art Herman MD Work Phone: 6(960)796-170403 [place] [address] 08-26-2024 10:55-0400 Diastolic blood pressure 62 mm[Hg] Dr. Art Herman MD Work Phone: 9(200)203-855903 [place] [address] 08-26-2024 10:55-0400 Heart rate 85 /min Dr. Art Herman MD Work Phone: 8(358)057-162803 [place] [address] 08-26-2024 10:55-0400 SaO2% (BldA) [Mass fraction] 97 % Dr. Art Herman MD Work Phone: 1(228)946-357103 [place] [address] 08-26-2024 10:55-0400 Systolic blood pressure 113 mm[Hg] Dr. Art Herman MD Work Phone: 4(052)878-205803 [place] [address] 07-25-2024 13:15-0400 Body temperature 98.1 [degF] Dr. Art Herman MD Work Phone: 5(311)012-940303 [place] [address] 07-25-2024 13:15-0400 Diastolic blood pressure 60 mm[Hg] Dr. Art Herman MD Work Phone: 8(688)886-857703 [place] [address] 07-25-2024 13:15-0400 Heart rate 97 /min Dr. Art Herman MD Work Phone: 2(386)665-603303 [place] [address] 07-25-2024 13:15-0400 Respiratory rate 18 /min Dr. Art Herman MD Work Phone: 1(568)110-254103 [place] [address] 07-25-2024 13:15-0400 SaO2% (BldA) [Mass fraction] 96 % Dr. Art Herman MD Work Phone: 8(780)829-665403 [place] [address] 07-25-2024 13:15-0400 Systolic blood pressure 110 mm[Hg] Dr. Art Herman MD Work Phone: 2(227)437-120203 [place] [address] 07-25-2024 05:41-0400 Body mass index (BMI) [Ratio] 17.6 kg/m2 Dr. Art Herman MD Work Phone: 1(801)766-078603 [place] [address] 07-25-2024 05:41-0400 Body weight 40.[address] Art Herman MD Work Phone: 5(163)605-191803 [place] [address] 07-23-2024 09:22-0400 Body height 151.[address] Art Herman MD Work Phone: 6(982)063-757703 [place] [address] 07-22-2024 10:46-0400 Body temperature 97.1 [degF] Dr. Art Herman MD Work Phone: [facility] 07-22-2024 10:46-0400 Diastolic blood pressure 79 mm[Hg] Dr. Art Herman MD Work Phone: 4(980)735-264702 [place] [address] 07-22-2024 10:46-0400 Heart rate 81 /min Dr. Art Herman MD Work Phone: 3(137)655-590103 [place] [address] 07-22-2024 10:46-0400 Respiratory rate 10 /min Dr. Art Herman MD Work Phone: 6(903)293-130702 [place] [address] 07-22-2024 10:46-0400 SaO2% (BldA) [Mass fraction] 100 % Dr. Art Herman MD Work Phone: 7(211)682-956403 [place] [address] 07-22-2024 10:46-0400 Systolic blood pressure 153 mm[Hg] Dr. Art Herman MD Work Phone: 0(870)302-165403 [place] [address] 07-22-2024 10:00-0400 Inhaled oxygen flow rate 2 L/min Dr. Art Herman MD Work Phone: 7(060)653-088403 [place] [address] 07-22-2024 07:21-0400 Body height 152.[address] Art Herman MD Work Phone: 5(844)128-226303 [place] [address] 07-22-2024 07:21-0400 Body mass index (BMI) [Ratio] 18.5 kg/m2 Dr. Art Herman MD Work Phone: 7(589)007-265702 [place] [address] 07-22-2024 07:21-0400 Body weight [address] Art Herman MD Work Phone: [facility] 06-29-2024 10:16-0400 Body height 152.4 cm Yaakov Hayes MD Work Phone: [facility] 06-29-2024 10:16-0400 Body mass index (BMI) [Ratio] 19.24 kg/m2 Yaakov Hayes MD Work Phone: [facility] 06-29-2024 10:16-0400 Body weight 44.68 kg Yaakov Hayes MD Work Phone: [facility] 06-29-2024 10:16-0400 Diastolic blood pressure 70 mm[Hg] Yaakov Hayes MD Work Phone: [facility] 06-29-2024 10:16-0400 Heart rate 87 /min Yaakov Hayes MD Work Phone: [facility] 06-29-2024 10:16-0400 Respiratory rate 12 /min Yaakov Hayes MD Work Phone: [facility] 06-29-2024 10:16-0400 SaO2% (BldA) [Mass fraction] 99 % Yaakov Hayes MD Work Phone: [facility] 06-29-2024 10:16-0400 Systolic blood pressure 124 mm[Hg] Yaakov Hayes MD Work Phone: [facility] 06-08-2024 10:53-0400 Body height 152.4 cm Gaye Tang MD Work Phone: [facility] 06-08-2024 10:53-0400 Body mass index (BMI) [Ratio] 18.55 kg/m2 Gaye Tang MD Work Phone: [facility] 06-08-2024 10:53-0400 Body temperature 98.2 [degF] Gaye Tang MD Work Phone: [facility] 06-08-2024 10:53-0400 Body weight 43.09 kg Gaye Tang MD Work Phone: [facility] 06-08-2024 10:53-0400 Diastolic blood pressure 62 mm[Hg] Gaye Tang MD Work Phone: [facility] 06-08-2024 10:53-0400 Heart rate 86 /min Gaye Tang MD Work Phone: [facility] 06-08-2024 10:53-0400 SaO2% (BldA) [Mass fraction] 99 % Gaye Tang MD Work Phone: [facility] 06-08-2024 10:53-0400 Systolic blood pressure 124 mm[Hg] Gaye Tang MD Work Phone: [facility] 05-27-2024 10:09-0400 Body mass index (BMI) [Ratio] 17.9 kg/m2 Dr. Art Herman MD Work Phone: [facility] 05-27-2024 10:09-0400 Body weight 41.[address] Art Herman MD Work Phone: [facility] 05-27-2024 10:09-0400 Diastolic blood pressure 76 mm[Hg] Dr. Art Herman MD Work Phone: 7(736)706-160103 [place] [address] 05-27-2024 10:09-0400 Heart rate 93 /min Dr. Art Herman MD Work Phone: 8(247)486-437703 [place] [address] 05-27-2024 10:09-0400 SaO2% (BldA) [Mass fraction] 98 % Dr. Art Herman MD Work Phone: [facility] 05-27-2024 10:09-0400 Systolic blood pressure 163 mm[Hg] Dr. Art Herman MD Work Phone: [facility] 05-13-2024 10:53-0500 Body mass index (BMI) [Ratio] 17.81 kg/m2 Erica Herman MD Work Phone: [facility] 05-13-2024 10:53-0500 Body weight 43.45 kg Erica Herman MD Work Phone: [facility] 05-13-2024 10:53-0500 Diastolic blood pressure 64 mm[Hg] Erica Herman MD Work Phone: [facility] 05-13-2024 10:53-0500 Heart rate 102 /min Erica Herman MD Work Phone: [facility] 05-13-2024 10:53-0500 Respiratory rate 16 /min Erica Herman MD Work Phone: [facility] 05-13-2024 10:53-0500 SaO2% (BldA) [Mass fraction] 99 % Erica Herman MD Work Phone: [facility] 05-13-2024 10:53-0500 Systolic blood pressure 116 mm[Hg] Erica Herman MD Work Phone: [facility] 12-12-2023 13:54-0400 Body height 156.2 cm Neena Wolcott SECTION MAINTAINER.AUTO WASH BUFFER Work Phone: [facility] 12-12-2023 13:54-0400 Body mass index (BMI) [Ratio] 18.41 kg/m2 Neena Wolcott SECTION MAINTAINER.AUTO WASH BUFFER Work Phone: [facility] 12-12-2023 13:54-0400 Body weight 44.91 kg Neena Wolcott SECTION MAINTAINER.AUTO WASH BUFFER Work Phone: [facility] 12-12-2023 13:54-0400 Diastolic blood pressure 58 mm[Hg] Neena Sarah SECTION MAINTAINER.AUTO WASH BUFFER Work Phone: [facility] 12-12-2023 13:54-0400 Systolic blood pressure 100 mm[Hg] Neena Wolcott SECTION MAINTAINER.AUTO WASH BUFFER Work Phone: [facility] 11-05-2023 10:20-0400 Body mass index (BMI) [Ratio] 19.29 kg/m2 Erica Herman MD Work Phone: [facility] 11-05-2023 10:20-0400 Body weight 44.8 kg Erica Herman MD Work Phone: [facility] 11-05-2023 10:20-0400 Diastolic blood pressure 66 mm[Hg] Erica Herman MD Work Phone: [facility] 11-05-2023 10:20-0400 Heart rate 94 /min Erica Herman MD Work Phone: [facility] 11-05-2023 10:20-0400 Respiratory rate 16 /min Erica Herman MD Work Phone: [facility] 11-05-2023 10:20-0400 SaO2% (BldA) [Mass fraction] 97 % Erica Herman MD Work Phone: [facility] 11-05-2023 10:20-0400 Systolic blood pressure 110 mm[Hg] Erica Herman MD Work Phone: [facility] 08-06-2023 10:03-0400 Body height 152.4 cm Bharati Riggs MD Work Phone: [facility] 08-06-2023 10:03-0400 Body mass index (BMI) [Ratio] 17.58 kg/m2 Bharati Riggs MD Work Phone: [facility] 08-06-2023 10:03-0400 Body weight 40.82 kg Bharati Riggs MD Work Phone: [facility] 08-06-2023 10:03-0400 Respiratory rate 18 /min Bharati Riggs MD Work Phone: [facility] 08-05-2023 11:15-0400 Body mass index (BMI) [Ratio] 17.73 kg/m2 Sarah Podlogar SECTION MAINTAINER.AUTO WASH BUFFER Work Phone: [facility] 08-05-2023 11:15-0400 Body weight 41.19 kg Sarah Podlogar SECTION MAINTAINER.AUTO WASH BUFFER Work Phone: [facility] 08-05-2023 11:15-0400 Diastolic blood pressure 56 mm[Hg] Sarah Podlogar SECTION MAINTAINER.AUTO WASH BUFFER Work Phone: [facility] 08-05-2023 11:15-0400 Heart rate 97 /min Sarah Podlogar SECTION MAINTAINER.AUTO WASH BUFFER Work Phone: [facility] 08-05-2023 11:15-0400 Respiratory rate 16 /min Sarah Podlogar SECTION MAINTAINER.AUTO WASH BUFFER Work Phone: [facility] 08-05-2023 11:15-0400 SaO2% (BldA) [Mass fraction] 98 % Sarah Podlogar SECTION MAINTAINER.AUTO WASH BUFFER Work Phone: [facility] 08-05-2023 11:15-0400 Systolic blood pressure 102 mm[Hg] Sarah Fowler APRN.CNP Work Phone: [facility] 07-16-2023 09:57-0400 Body height 152.4 cm Bharati Riggs MD Work Phone: [facility] 07-16-2023 09:57-0400 Body mass index (BMI) [Ratio] 19.14 kg/m2 Bharati Riggs MD Work Phone: [facility] 07-16-2023 09:57-0400 Body weight 44.45 kg Bharati Riggs MD Work Phone: [facility] 07-16-2023 09:57-0400 Respiratory rate 16 /min Bharati Riggs MD Work Phone: [facility] 07-11-2023 13:44-0400 Body mass index (BMI) [Ratio] 18.7 kg/m2 Dr. Art Herman Work Phone: [facility] 07-11-2023 13:44-0400 Body temperature 97.4 [degF] Dr. Art Herman Work Phone: [facility] 07-11-2023 13:44-0400 Diastolic blood pressure 95 mm[Hg] Dr. Art Herman Work Phone: [facility] 07-11-2023 13:44-0400 Heart rate 91 /min Dr. Art Herman Work Phone: [facility] 07-11-2023 13:44-0400 Respiratory rate 18 /min Dr. Art Herman Work Phone: [facility] 07-11-2023 13:44-0400 Systolic blood pressure 154 mm[Hg] Dr. Art Herman Work Phone: [facility] 07-02-2023 14:37-0400 Diastolic blood pressure 68 mm[Hg] Erica Herman MD Work Phone: [facility] 07-02-2023 14:37-0400 Systolic blood pressure 126 mm[Hg] Erica Herman MD Work Phone: [facility] 07-02-2023 13:58-0400 Heart rate 94 /min Erica Herman MD Work Phone: [facility] 07-02-2023 13:58-0400 Respiratory rate 16 /min Erica Herman MD Work Phone: [facility] 07-02-2023 13:58-0400 SaO2% (BldA) [Mass fraction] 97 % Erica Herman MD Work Phone: [facility] 06-27-2023 13:37-0400 Body mass index (BMI) [Ratio] 18.7 kg/m2 Dr. Art Herman Work Phone: [facility] 06-27-2023 13:37-0400 Body temperature 99.1 [degF] Dr. Art Herman Work Phone: [facility] 06-27-2023 13:37-0400 Diastolic blood pressure 79 mm[Hg] Dr. Art Herman Work Phone: [facility] 06-27-2023 13:37-0400 Heart rate 76 /min Dr. Art Herman Work Phone: [facility] 06-27-2023 13:37-0400 Respiratory rate 16 /min Dr. Art Herman Work Phone: [facility] 06-27-2023 13:37-0400 Systolic blood pressure 146 mm[Hg] Dr. Art Herman Work Phone: [facility] 06-25-2023 08:02-0400 Body height 152.4 cm Bharati Riggs MD Work Phone: [facility] 06-25-2023 08:02-0400 Body weight 44.45 kg Bharati Riggs MD Work Phone: [facility] 06-25-2023 08:02-0400 Respiratory rate 18 /min Bharati Riggs MD Work Phone: [facility] 06-17-2023 10:22-0400 Body weight 44.45 kg Yaakov Hayes MD Work Phone: [facility] 06-17-2023 10:22-0400 Diastolic blood pressure 67 mm[Hg] Yaakov Hayes MD Work Phone: [facility] 06-17-2023 10:22-0400 Heart rate 94 /min Yaakov Hayes MD Work Phone: [facility] 06-17-2023 10:22-0400 SaO2% (BldA) [Mass fraction] 99 % Yaakov Hayes MD Work Phone: [facility] 06-17-2023 10:22-0400 Systolic blood pressure 104 mm[Hg] Yaakov Hayes MD Work Phone: [facility] 06-17-2023 00:21-0400 Body weight 43.[address] Art Herman Work Phone: [facility] 06-13-2023 15:35-0400 Body mass index (BMI) [Ratio] 18.7 kg/m2 Dr. Adrien Godoy Work Phone: [facility] 06-13-2023 15:35-0400 Body temperature 96.9 [degF] Dr. Adrien Godoy Work Phone: [facility] 06-13-2023 15:35-0400 Diastolic blood pressure 54 mm[Hg] Dr. Adrien Godoy Work Phone: [facility] 06-13-2023 15:35-0400 Heart rate 107 /min Dr. Adrien Godoy Work Phone: [facility] 06-13-2023 15:35-0400 Respiratory rate 16 /min Dr. Adrien Godoy Work Phone: [facility] 06-13-2023 15:35-0400 Systolic blood pressure 127 mm[Hg] Dr. Adrien Godoy Work Phone: [facility] 06-12-2023 10:37-0400 Body height 152.[address] Adrien Godoy Work Phone: 9(684)216-070537 [place] [address] 06-12-2023 10:37-0400 Body mass index (BMI) [Ratio] 19.1 kg/m2 Dr. Adrien Godoy Work Phone: 0(249)640-711237 [place] [address] 06-12-2023 10:37-0400 Body temperature 98.4 [degF] Dr. Adrien Godoy Work Phone: 6(088)903-689037 [place] [address] 06-12-2023 10:37-0400 Body weight 44.[address] Adrien Godoy Work Phone: 9(604)819-242737 [place] [address] 06-12-2023 10:37-0400 Diastolic blood pressure 77 mm[Hg] Dr. Adrien Godoy Work Phone: 0(119)932-222237 [place] [address] 06-12-2023 10:37-0400 Heart rate 105 /min Dr. Adrien Godoy Work Phone: 6(027)656-823737 [place] [address] 06-12-2023 10:37-0400 SaO2% (BldA) [Mass fraction] 98 % Dr. Adrien Godoy Work Phone: 8(276)795-407937 [place] [address] 06-12-2023 10:37-0400 Systolic blood pressure 142 mm[Hg] Dr. Adrien Godoy Work Phone: 7(636)987-434637 [place] [address] 06-06-2023 13:21-0400 Body mass index (BMI) [Ratio] 18.7 kg/m2 Dr. Adrien Godoy Work Phone: 4(367)271-003237 [place] [address] 06-06-2023 13:21-0400 Body temperature 97.8 [degF] Dr. Adrien Godoy Work Phone: 8(374)140-267237 [place] [address] 06-06-2023 13:21-0400 Diastolic blood pressure 51 mm[Hg] Dr. Adrien Godoy Work Phone: 2(676)494-909937 [place] [address] 06-06-2023 13:21-0400 Heart rate 99 /min Dr. Adrien Godoy Work Phone: 4(246)282-671537 [place] [address] 06-06-2023 13:21-0400 Respiratory rate 16 /min Dr. Adrien Godoy Work Phone: 3(809)492-484352 [place] [address] 06-06-2023 13:21-0400 Systolic blood pressure 121 mm[Hg] Dr. Adrien Godoy Work Phone: 9(387)693-571037 [place] [address] 05-17-2023 00:26-0500 Body weight 43.[address] Adrien Godoy Work Phone: 9(469)277-005137 [place] [address] 05-16-2023 14:51-0500 Body mass index (BMI) [Ratio] 18.7 kg/m2 Dr. Adrien Godoy Work Phone: 4(258)886-989037 [place] [address] 05-16-2023 14:51-0500 Body temperature 97.5 [degF] Dr. Adrien Godoy Work Phone: 3(746)383-160937 [place] [address] 05-16-2023 14:51-0500 Diastolic blood pressure 65 mm[Hg] Dr. Adrien Godoy Work Phone: 8(666)327-187037 [place] [address] 05-16-2023 14:51-0500 Heart rate 94 /min Dr. Adrien Godoy Work Phone: 0(548)602-108352 [place] [address] 05-16-2023 14:51-0500 Respiratory rate 18 /min Dr. Adrien Godoy Work Phone: 7(036)259-378137 [place] [address] 05-16-2023 14:51-0500 Systolic blood pressure 168 mm[Hg] Dr. Adrien Godoy Work Phone: 1(097)705-949037 [place] [address] 04-18-2023 13:40-0500 Body mass index (BMI) [Ratio] 18.7 kg/m2 Dr. Adrien Godoy Work Phone: 1(312)448-894052 [place] [address] 04-18-2023 13:40-0500 Body temperature 97.4 [degF] Dr. Adrien Godoy Work Phone: 7(673)626-891852 [place] [address] 04-18-2023 13:40-0500 Diastolic blood pressure 64 mm[Hg] Dr. Adrien Godoy Work Phone: 4(262)090-088937 [place] [address] 04-18-2023 13:40-0500 Heart rate 89 /min Dr. Adrien Godoy Work Phone: 6(107)065-815252 [place] [address] 04-18-2023 13:40-0500 Respiratory rate 18 /min Dr. Adrien Godoy Work Phone: 4(136)681-042537 [place] [address] 04-18-2023 13:40-0500 Systolic blood pressure 137 mm[Hg] Dr. Adrien Godoy Work Phone: 8(957)030-518737 [place] [address] 04-18-2023 00:22-0500 Body weight 43.[address] Adrien Godoy Work Phone: 0(693)728-602037 [place] [address] 04-17-2023 11:41-0500 Body height 152.[address] Adrien Godoy Work Phone: 3(385)458-843337 [place] [address] 04-17-2023 11:41-0500 Body mass index (BMI) [Ratio] 17.6 kg/m2 Dr. Adrien Godoy Work Phone: 9(761)859-969537 [place] [address] 04-17-2023 11:41-0500 Body temperature 98.7 [degF] Dr. Adrien Godoy Work Phone: 9(911)481-834537 [place] [address] 04-17-2023 11:41-0500 Body weight 41.[address] Adrien Godoy Work Phone: 6(930)184-314537 [place] [address] 04-17-2023 11:41-0500 Diastolic blood pressure 69 mm[Hg] Dr. Adrien Godoy Work Phone: 0(503)565-918337 [place] [address] 04-17-2023 11:41-0500 Heart rate 94 /min Dr. Adrien Godoy Work Phone: 6(910)925-142152 [place] [address] 04-17-2023 11:41-0500 Respiratory rate 16 /min Dr. Adrien Godoy Work Phone: 6(982)725-822237 [place] [address] 04-17-2023 11:41-0500 SaO2% (BldA) [Mass fraction] 95 % Dr. Adrien Godoy Work Phone: 5(637)912-594537 [place] [address] 04-17-2023 11:41-0500 Systolic blood pressure 126 mm[Hg] Dr. Adrien Godoy Work Phone: 8(840)781-064937 [place] [address] 04-04-2023 13:50-0500 Body mass index (BMI) [Ratio] 18.7 kg/m2 Dr. Adrien Godoy Work Phone: 4(413)114-646237 [place] [address] 04-04-2023 13:50-0500 Body temperature 97.1 [degF] Dr. Adrien Godoy Work Phone: 2(246)347-880837 [place] [address] 04-04-2023 13:50-0500 Diastolic blood pressure 71 mm[Hg] Dr. Adrien Godoy Work Phone: 8(231)154-184937 [place] [address] 04-04-2023 13:50-0500 Heart rate 106 /min Dr. Adrien Godoy Work Phone: 4(999)261-518237 [place] [address] 04-04-2023 13:50-0500 Respiratory rate 18 /min Dr. Adrien Godoy Work Phone: 7(771)154-028437 [place] [address] 04-04-2023 13:50-0500 Systolic blood pressure 149 mm[Hg] Dr. Adrien Godoy Work Phone: 2(113)564-374137 [place] [address] 03-18-2023 00:27-0500 Body weight 43.[address] Adrien Godoy Work Phone: 5(698)519-763737 [place] [address] 03-14-2023 13:15-0500 Body mass index (BMI) [Ratio] 18.7 kg/m2 Dr. Adrien Godoy Work Phone: 2(888)964-640537 [place] [address] 03-14-2023 13:15-0500 Body temperature 97.9 [degF] Dr. Adrien Godoy Work Phone: 6(079)138-413737 [place] [address] 03-14-2023 13:15-0500 Body weight 43.[address] Adrien Godoy Work Phone: 2(756)305-355837 [place] [address] 03-14-2023 13:15-0500 Diastolic blood pressure 66 mm[Hg] Dr. Adrien Godoy Work Phone: 3(447)563-519452 [place] [address] 03-14-2023 13:15-0500 Heart rate 99 /min Dr. Adrien Godoy Work Phone: [facility] 03-14-2023 13:15-0500 Respiratory rate 16 /min Dr. Adrien Godoy Work Phone: [facility] 03-14-2023 13:15-0500 Systolic blood pressure 135 mm[Hg] Dr. Adrien Godoy Work Phone: [facility] 03-01-2023 08:25-0500 Body temperature 98.4 [degF] [facility] Work Phone: 5(997)052-300569 [address] [place] [address] 03-01-2023 08:25-0500 Diastolic blood pressure 75 mm[Hg] [facility] Work Phone: 6(859)166-570469 [address] [place] [address] 03-01-2023 08:25-0500 Heart rate 80 /min [facility] Work Phone: 4(226)386-417269 [address] [place] [address] 03-01-2023 08:25-0500 Respiratory rate 16 /min [facility] Work Phone: 5(059)202-688069 [address] [place] [address] 03-01-2023 08:25-0500 SaO2% (BldA) [Mass fraction] 99 % [facility] Work Phone: 3(921)015-395469 [address] [place] [address] 03-01-2023 08:25-0500 Systolic blood pressure 139 mm[Hg] [facility] Work Phone: 0(495)831-732869 [address] [place] [address] 02-26-2023 16:55-0500 Body height 152.4 cm [facility] Work Phone: 8(198)151-448469 [address] [place] [address] 02-26-2023 16:55-0500 Body weight 45.04 kg [facility] Work Phone: 6(821)409-571969 [address] [place] [address] 02-26-2023 13:47-0500 Body mass index (BMI) [Ratio] 19.3 kg/m2 [facility] Work Phone: 3(823)818-128769 [address] [place] [address] 02-26-2023 12:13-0500 Body temperature 97.2 [degF] [facility] Work Phone: 6(881)651-771369 [address] [place] [address] 02-26-2023 12:13-0500 Diastolic blood pressure 74 mm[Hg] [facility] Work Phone: 0(499)237-378769 [address] [place] [address] 02-26-2023 12:13-0500 Heart rate 95 /min [facility] Work Phone: 5(889)069-716269 [address] [place] [address] 02-26-2023 12:13-0500 Respiratory rate 21 /min [facility] Work Phone: 8(408)281-023069 [address] [place] [address] 02-26-2023 12:13-0500 SaO2% (BldA) [Mass fraction] 100 % [facility] Work Phone: 5(476)753-532969 [address] [place] [address] 02-26-2023 12:13-0500 Systolic blood pressure 147 mm[Hg] [facility] Work Phone: 2(856)866-619069 [address] [place] [address] 02-26-2023 10:16-0500 Body mass index (BMI) [Ratio] 19.1 kg/m2 [facility] Work Phone: 4(713)339-004569 [address] [place] [address] 02-26-2023 10:16-0500 Body weight 44.3 kg [facility] Work Phone: 7(264)393-734969 [address] [place] [address] 02-26-2023 08:43-0500 Body height 152.4 cm [facility] Work Phone: 5(420)895-413069 [address] [place] [address] 02-16-2023 13:21-0500 Body height 152.4 cm [facility] Work Phone: 6(511)827-685769 [address] [place] [address] 02-16-2023 13:21-0500 Body mass index (BMI) [Ratio] 20.9 kg/m2 [facility] Work Phone: 2(399)135-574069 [address] [place] [address] 02-16-2023 13:21-0500 Body temperature 97.6 [degF] [facility] Work Phone: 1(137)331-822669 [address] [place] [address] 02-16-2023 13:21-0500 Body weight 48.53 kg [facility] Work Phone: 6(546)216-622969 [address] [place] [address] 02-16-2023 13:21-0500 Diastolic blood pressure 75 mm[Hg] [facility] Work Phone: 9(256)637-186169 [address] [place] [address] 02-16-2023 13:21-0500 Heart rate 91 /min [facility] Work Phone: [facility] 02-16-2023 13:21-0500 Respiratory rate 16 /min [facility] Work Phone: [facility] 02-16-2023 13:21-0500 SaO2% (BldA) [Mass fraction] 100 % [facility] Work Phone: [facility] 02-16-2023 13:21-0500 Systolic blood pressure 140 mm[Hg] [facility] Work Phone: [facility] 02-16-2023 12:47-0500 Body temperature 97.9 [degF] Colette Lin APRN.AUTO WASH BUFFER Work Phone: [facility] 02-16-2023 12:47-0500 Body weight 46.99 kg Colette Lin APRN.AUTO WASH BUFFER Work Phone: [facility] 02-16-2023 12:47-0500 Diastolic blood pressure 68 mm[Hg] Colette Lin APRN.AUTO WASH BUFFER Work Phone: [facility] 02-16-2023 12:47-0500 Heart rate 96 /min Colette Lin APRN.AUTO WASH BUFFER Work Phone: [facility] 02-16-2023 12:47-0500 Respiratory rate 18 /min Colette Lin APRN.AUTO WASH BUFFER Work Phone: [facility] 02-16-2023 12:47-0500 SaO2% (BldA) [Mass fraction] 98 % Colette Lin APRN.AUTO WASH BUFFER Work Phone: [facility] 02-16-2023 12:47-0500 Systolic blood pressure 122 mm[Hg] Colette Lin APRN.AUTO WASH BUFFER Work Phone: [facility] 02-01-2023 09:32-0500 Body weight 48.63 kg Erica Herman MD Work Phone: [facility] 02-01-2023 09:32-0500 Diastolic blood pressure 68 mm[Hg] Erica Herman MD Work Phone: [facility] 02-01-2023 09:32-0500 Heart rate 90 /min Erica Herman MD Work Phone: [facility] 02-01-2023 09:32-0500 Respiratory rate 16 /min Erica Herman MD Work Phone: [facility] 02-01-2023 09:32-0500 SaO2% (BldA) [Mass fraction] 98 % Erica Herman MD Work Phone: [facility] 02-01-2023 09:32-0500 Systolic blood pressure 126 mm[Hg] Erica Herman MD Work Phone: [facility] 12-10-2022 13:58-0400 Body height 152.4 cm Korina Plotnia SECTION MAINTAINER.CNM Work Phone: [facility] 12-10-2022 13:58-0400 Body weight 46.72 kg Korina Kitchen SECTION MAINTAINER.CNM Work Phone: [facility] 12-10-2022 13:58-0400 Diastolic blood pressure 52 mm[Hg] Korina Plotts SECTION MAINTAINER.CNM Work Phone: [facility] 12-10-2022 13:58-0400 Systolic blood pressure 98 mm[Hg] Korina Plotts SECTION MAINTAINER.CNM Work Phone: [facility] 11-21-2022 10:35-0400 Body mass index (BMI) [Ratio] 19.9 kg/m2 [facility] Work Phone: [facility] 11-21-2022 10:35-0400 Body temperature 98 [degF] [facility] Work Phone: [facility] 11-21-2022 10:35-0400 Body weight 46.32 kg [facility] Work Phone: [facility] 11-21-2022 10:35-0400 Diastolic blood pressure 66 mm[Hg] [facility] Work Phone: [facility] 11-21-2022 10:35-0400 Heart rate 70 /min [facility] Work Phone: [facility] 11-21-2022 10:35-0400 Respiratory rate 18 /min [facility] Work Phone: [facility] 11-21-2022 10:35-0400 SaO2% (BldA) [Mass fraction] 97 % [facility] Work Phone: [facility] 11-21-2022 10:35-0400 Systolic blood pressure 96 mm[Hg] [facility] Work Phone: [facility] 11-01-2022 15:09-0400 Body weight 44.45 kg Erica Herman MD Work Phone: [facility] 11-01-2022 15:09-0400 Diastolic blood pressure 64 mm[Hg] Erica Herman MD Work Phone: [facility] 11-01-2022 15:09-0400 Heart rate 91 /min Erica Herman MD Work Phone: [facility] 11-01-2022 15:09-0400 Respiratory rate 16 /min Erica Herman MD Work Phone: [facility] 11-01-2022 15:09-0400 SaO2% (BldA) [Mass fraction] 96 % Erica Herman MD Work Phone: [facility] 11-01-2022 15:09-0400 Systolic blood pressure 118 mm[Hg] Erica Herman MD Work Phone: [facility] 09-20-2022 09:06-0400 Body height 152.[address] Kee Kaye Work Phone: [facility] 09-20-2022 09:06-0400 Body mass index (BMI) [Ratio] 18.2 kg/m2 Dr. Kee Kaye Work Phone: [facility] 09-20-2022 09:06-0400 Body temperature 98.3 [degF] Dr. Kee Kaye Work Phone: [facility] 09-20-2022 09:06-0400 Body weight 42.[address] Kee Kaye Work Phone: [facility] 09-20-2022 09:06-0400 Diastolic blood pressure 72 mm[Hg] Dr. Kee Kaye Work Phone: [facility] 09-20-2022 09:06-0400 Heart rate 96 /min Dr. Kee Kaye Work Phone: [facility] 09-20-2022 09:06-0400 Respiratory rate 16 /min Dr. Kee Kaye Work Phone: [facility] 09-20-2022 09:06-0400 SaO2% (BldA) [Mass fraction] 98 % Dr. Kee Kaye Work Phone: [facility] 09-20-2022 09:06-0400 Systolic blood pressure 104 mm[Hg] Dr. Kee Kaye Work Phone: [facility] 07-18-2022 09:40-0400 Body height 152.4 cm Sergio Berumen III, MD Work Phone: [facility] 07-18-2022 09:40-0400 Body temperature 97.7 [degF] Sergio Berumen III, MD Work Phone: [facility] 07-18-2022 09:40-0400 Diastolic blood pressure 60 mm[Hg] Sergio Berumen III, MD Work Phone: [facility] 07-18-2022 09:40-0400 Heart rate 86 /min Sergio Berumen III, MD Work Phone: [facility] 07-18-2022 09:40-0400 Respiratory rate 16 /min Sergio Berumen III, MD Work Phone: [facility] 07-18-2022 09:40-0400 SaO2% (BldA) [Mass fraction] 99 % Sergio Berumen III, MD Work Phone: [facility] 07-18-2022 09:40-0400 Systolic blood pressure 107 mm[Hg] Sergio Berumen III, MD Work Phone: [facility] 07-17-2022 14:45-0400 Body height 152.4 cm Bharati Riggs MD Work Phone: [facility] 07-17-2022 14:45-0400 Body weight 47.27 kg Bharati Riggs MD Work Phone: [facility] 07-17-2022 14:45-0400 Respiratory rate 20 /min Bharati Riggs MD Work Phone: [facility] 06-19-2022 13:42-0400 Body height 152.4 cm Bharati Riggs MD Work Phone: [facility] 06-19-2022 13:42-0400 Body weight 47.63 kg Bharati Riggs MD Work Phone: [facility] 06-19-2022 13:42-0400 Respiratory rate 16 /min Bharati Riggs MD Work Phone: [facility] 05-31-2022 05:24-0400 Diastolic blood pressure 54 mm[Hg] INDUSTRIAL GAS FITTER HELPER-C Felecia Christianson [facility] Work Phone: [facility] 05-31-2022 05:24-0400 Heart rate 94 /min INDUSTRIAL GAS FITTER HELPER-C Felecia Christianson [facility] Work Phone: [facility] 05-31-2022 05:24-0400 Respiratory rate 17 /min INDUSTRIAL GAS FITTER HELPER-C Felecia Christianson [facility] Work Phone: [facility] 05-31-2022 05:24-0400 SaO2% (BldA) [Mass fraction] 99 % INDUSTRIAL GAS FITTER HELPER-C Felecia Christianson VS Work Phone: [facility] 05-31-2022 05:24-0400 Systolic blood pressure 108 mm[Hg] INDUSTRIAL GAS FITTER HELPER-C Felecia Christianson VS Work Phone: [facility] 05-31-2022 05:13-0400 Body temperature 99.5 [degF] INDUSTRIAL GAS FITTER HELPER-C Felecia Christianson VS Work Phone: [facility] 05-31-2022 01:10-0400 Body mass index (BMI) [Ratio] 18.2 kg/m2 INDUSTRIAL GAS FITTER HELPER-C Felecia Christianson [facility] Work Phone: [facility] 05-31-2022 01:10-0400 Body weight 42.4 kg INDUSTRIAL GAS FITTER HELPER-C Felecia Christianson [facility] Work Phone: [facility] 03-21-2022 08:23-0500 Body height 154.94 cm [facility] Work Phone: 9(519)964-770569 [address] [place] [address] 03-21-2022 08:23-0500 Body mass index (BMI) [Ratio] 17.9 kg/m2 [facility] Work Phone: 5(691)570-545469 [address] [place] [address] 03-21-2022 08:23-0500 Body temperature 97.3 [degF] [facility] Work Phone: 2(169)854-274869 [address] [place] [address] 03-21-2022 08:23-0500 Body weight 43.09 kg [facility] Work Phone: 3(315)679-643769 [address] [place] [address] 03-21-2022 08:23-0500 Diastolic blood pressure 62 mm[Hg] [facility] Work Phone: 7(579)052-461169 [address] [place] [address] 03-21-2022 08:23-0500 Heart rate 98 /min [facility] Work Phone: 7(032)094-610169 [address] [place] [address] 03-21-2022 08:23-0500 Respiratory rate 18 /min [facility] Work Phone: 1(840)079-999569 [address] [place] [address] 03-21-2022 08:23-0500 SaO2% (BldA) [Mass fraction] 99 % [facility] Work Phone: 0(381)424-048269 [address] [place] [address] 03-21-2022 08:23-0500 Systolic blood pressure 89 mm[Hg] [facility] Work Phone: 7(360)481-950469 [address] [place] [address] 12-27-2021 17:15-0400 Body weight 44.27 kg [facility] Work Phone: 6(437)001-162669 [address] [place] [address] 12-20-2021 17:11-0400 Body height 154.94 cm [facility] Work Phone: 6(485)972-308724 [place] [address] Work Phone: 12-14-2021 09:52-0400 Body mass index (BMI) [Ratio] 18 kg/m2 [facility] Work Phone: 9(986)736-568124 [place] [address] 12-14-2021 09:52-0400 Body temperature 96.5 [degF] [facility] Work Phone: 2(671)587-208069 [address] [place] [address] 12-14-2021 09:52-0400 Body weight 43.26 kg [facility] Work Phone: 6(520)135-613852 [address] 12-14-2021 09:52-0400 Diastolic blood pressure 79 mm[Hg] [facility] Work Phone: 4(794)968-836869 [address] [place] [address] 12-14-2021 09:52-0400 Heart rate 89 /min [facility] Work Phone: 2(074)727-711269 [address] [place] [address] 12-14-2021 09:52-0400 Respiratory rate 18 /min [facility] Work Phone: 8(526)130-809852 [address] 12-14-2021 09:52-0400 SaO2% (BldA) [Mass fraction] 98 % [facility] Work Phone: 5(608)140-623752 [address] 12-14-2021 09:52-0400 Systolic blood pressure 119 mm[Hg] [facility] Work Phone: 9(236)928-820769 [address] [place] [address] 11-30-2021 15:41-0400 Body weight 41.82 kg [facility] Work Phone: 5(223)443-279324 [place] [address] Work Phone: 11-15-2021 14:50-0400 Body weight 42.18 kg [facility] Work Phone: [facility] Work Phone: 11-02-2021 15:43-0400 Body weight 38.37 kg [facility] Work Phone: Encounters Encounter Date Encounter Type Care Provider Facility Start: 12-04-2024 ambulatory Andriy Otoole Facility: [facility] Start: 12-02-2024 ambulatory Art Glaser lity:[facility] Start: 11-25-2024 End: 11-25-2024 Telephone encounter Erica Herman MD Work Phone: [facility] Comment on above: Results New Patient [facility] PAT requesting r stevie Start: 11-24-2024 Encounter for other preprocedural examination ERICA HERMAN [facility] Start: 11-24-2024 End: 11-24-2024 Patient encounter procedure Erica Herman MD Work Phone: [facility] Comment on above: Pre-op evaluation (P rimary Dx); Skin ulcer of toe of left foot with fat layer exposed (HCC); DM type 2 with diabetic peripheral neuropathy (HCC); Peripheral artery disease; Normocytic anemia; Tobacco use disorder Start: 11-24-2024 End: 11-24-2024 Preprocedural examination done Erica Herman MD Work Phone: [facility] Work Phone: Start: 11-24-2024 End: 11-24-2024 ambulatory ERICA HERMAN Facility:[facility] Start: 11-11-2024 End: 11-15-[address] Art Herman MD Work Phone: [facility] Start: 11-11-2024 End: 11-15-[address] Andriy Otoole DPM -[facility] Work Phone: Start: 11-04-2024 End: 11-04-2024 Patient encounter procedure Millie Sharif INDUSTRIAL GAS FITTER HELPER-C -[facility] Work Phone: Start: 11-04-2024 End: 11-04-[address] Art Herman MD Work Phone: -[facility] Start: 10-31-2024 End: 10-31-2024 Follow-up encounter Erica Herman MD Work Phone: [facility] [place] Start: 10-29-2024 End: 10-29-2024 ambulatory ERICA HERMAN Facility:[facility] Start: 10-28-2024 End: 10-28-2024 Follow-up encounter Erica Herman MD Work Phone: [facility] Comment on above: Results Start: 10-26-2024 End: 10-26-2024 Patient encounter procedure Erica Herman MD Work Phone: [facility] Comment on above: Pre-op evaluation (P rimary Dx); Skin ulcer of toe of left foot with fat layer exposed (HCC); DM type 2 with diabetic peripheral neuropathy (HCC); Tobacco use disorder; Peripheral artery disease Start: 10-26-2024 End: 10-26-2024 Preprocedural examination done Erica Herman MD Work Phone: [facility] Start: 10-26-2024 End: 10-26-2024 ambulatory ERICA HERMAN Facility:[facility] Start: 10-14-2024 End: 10-15-[address] Art Herman MD Work Phone: [facility] Start: 10-14-2024 End: 10-15-[address] Andriy Otoole DP -[facility] Work Phone: Start: 10-05-2024 ambulatory ERICA Raza acility:[facility] Start: 10-05-2024 End: 10-05-2024 Subsequent hospital visit by physician Charlie [facility] Work Phone: Radiology Comment on above: Ulcer of toe of left foot, with fat layer exposed (HCC) [L97.522] Start: 10-01-2024 End: 10-01-2024 Patient encounter procedure Kedar Long Work Phone: Podiatry Comment on above: Ulcer of toe of left foot, with fat layer exposed (HCC) (Primary Dx) Start: 10-01-2024 End: 10-01-2024 ambulatory ERICA HERMAN Facility:[facility] Start: 09-17-2024 End: 09-17-2024 Patient encounter procedure Kedar Long Work Phone: Podiatry Comment on above: Ulcer of toe of left foot, with fat layer exposed (HCC) (Primary Dx); Callus of foot Start: 09-17-2024 End: 09-17-2024 ambulatory ERICA HERMAN Facility:[facility] Start: 09-08-2024 End: 11-08-2024 Follow-up encounter Kedar Goldbergmagalys Work Phone: Podiatry Start: 09-01-2024 End: 09-01-2024 Subsequent hospital visit by physician [facility] Work Phone: Radiology Comment on above: Ulcer of toe of left foot, with fat layer exposed (HCC) [L97.522] Start: 09-01-2024 End: 09-01-2024 Patient encounter procedure Kedar Ethan Work Phone: Podiatry Comment on above: Ulcer of toe of left foot, with fat layer exposed (HCC) (Primary Dx) Start: 09-01-2024 End: 09-01-2024 ambulatory ERICA HERMAN Facility:[facility] Start: 08-31-2024 End: 09-01-2024 Refill Erica Herman MD Work Phone: [address] [place] [address] Comment on above: Refill Request Start: 08-26-2024 End: 08-26-[address] Art Herman MD Work Phone: [facility] Work Phone: Start: 08-26-2024 End: 08-26-2024 Patient encounter procedure Millie ANDINO -Laboratory Work Phone: Start: 08-26-2024 End: 08-26-2024 Patient encounter procedure Millie ANDINO -[facility] Work Phone: Start: 08-26-2024 End: 08-26-[address] Art Herman MD Work Phone: [facility] Work Phone: Start: 08-26-2024 End: 08-26-2024 ambulatory Millie Sharif Facility:[facility] Start: 08-20-2024 End: 08-20-2024 Patient encounter procedure Kedar Ethan Work Phone: Podiatry Comment on above: Onychomycosis (Prima ry Dx); History of below-knee amputation of right lower extremity (HCC); Callus of foot; Hammertoe of left foot; Diabetic polyneuropathy associated with type 2 diabetes mellitus (HCC); Ulcer of toe of left foot, limited to breakdown of skin (HCC) Start: 08-20-2024 End: 08-20-2024 ambulatory ERICA HERMAN Facility:[facility] Start: 07-27-2024 End: 07-27-2024 Patient encounter procedure Millie Sharif NP-C -[facility] Work Phone: Start: 07-27-2024 End: 07-27-2024 ambulatory Millie Sharif Facility:[facility] Start: 07-25-2024 Non-patient / Non-visit Dr. Floresita Capellan DO [facility] Work Phone: Start: 07-24-2024 Non-patient / Non-visit Dr. Floresita Capellan DO [facility] Work Phone: Start: 07-23-2024 Non-patient / Non-visit Dr. Floresita Capellan DO [facility] Work Phone: Start: 07-22-2024 Non-patient / Non-visit Dr. Floresita Capellan DO [facility] Work Phone: Start: 07-22-2024 ambulatory Floresita Capellan Facility:[facility] Start: 07-22-2024 End: 07-25-2024 Evaluation and management of inpatient Dr. Floresita Capellan DO -Intensive Care Unit Work Phone: Start: 07-13-2024 End: 07-13-2024 ambulatory ERICA HERMAN Facility:[facility] Start: 06-29-2024 End: 06-29-2024 [facility] Start: 06-29-2024 End: 06-29-2024 Patient encounter procedure Yaakov Hayes MD Work Phone: Cardiology Comment on above: Coronary artery calc ification (Primary Dx); Primary hypertension Start: 06-18-2024 End: 06-18-2024 ambulatory ERICA HERMAN Facility:[facility] Start: 06-18-2024 End: 06-18-2024 Patient encounter procedure Kedar Goldbergmagalys Work Phone: Podiatry Comment on above: Diabetic polyneuropa thy associated with type 2 diabetes mellitus (HCC) (Primary Dx); Onychomycosis; History of below-knee amputation of right lower extremity (HCC); Callus of foot; Hammertoe of left foot Start: 06-08-2024 End: 06-08-2024 ambulatory ERICA HERMAN Facility:[facility] Start: 06-08-2024 End: 06-08-2024 Patient encounter procedure Gaye Tang MD Work Phone: General Surgery Comment on above: Anemia, unspecified type (Primary Dx) Start: 05-29-2024 End: 05-29-2024 Follow-up encounter Erica Herman MD Work Phone: [facility] Comment on above: Normocytic anemia (P rimary Dx); Positive fecal occult blood test Hypokalemia (Primary Dx); Hypomagnesemia; Folic acid deficiency; Normocytic anemia Start: 05-28-2024 End: 05-28-2024 ambulatory ERICA HERMAN Facility:[facility] Start: 05-27-2024 End: 05-27-2024 Patient encounter procedure Millie ANDINO -[facility] Work Phone: Start: 05-27-2024 End: 05-27-2024 ambulatory Millie Sharif Facility:[facility] Start: 05-21-2024 End: 05-21-2024 Follow-up encounter Erica Herman MD Work Phone: [facility] [place] Comment on above: Hypokalemia (Primary Dx); Hypomagnesemia; Folic acid deficiency Start: 05-20-2024 End: 05-20-2024 ambulatory ERICA HERMAN Facility:[facility] Start: 05-19-2024 End: 05-19-2024 Telephone encounter Erica Herman MD Work Phone: [facility] Comment on above: Orders Start: 05-14-2024 End: 05-14-2024 Follow-up encounter Erica Herman MD Work Phone: [facility] Comment on above: Normocytic anemia (P rimary Dx); Hypokalemia Start: 05-13-2024 End: 05-13-2024 ambulatory ERICA HERMAN Facility:[facility] Start: 05-13-2024 End: 05-13-2024 Patient encounter procedure Erica Herman MD Work Phone: [facility] Comment on above: Primary hypertension (Primary Dx); Hyperlipidemia, mixed; DM type 2 with diabetic peripheral neuropathy (HCC); Status post below-knee amputation of right lower extremity (HCC); Normocytic anemia; Coronary artery calcification; Tobacco use disorder; Encounter for screening for lung cancer Start: 05-06-2024 End: 05-06-2024 Follow-up encounter Kedar Long Work Phone: Podiatry Start: 05-05-2024 End: 05-05-2024 ambulatory ERICA HERMAN Facility:[facility] Start: 04-16-2024 End: 04-16-2024 ambulatory ERICA HERMAN Facility:[facility] Start: 04-16-2024 End: 04-16-2024 Patient encounter procedure Kedar Long Work Phone: Podiatry Comment on above: Callus of foot (Prim shannan Dx); Hammertoe of left foot Start: 04-02-2024 End: 04-02-2024 Subsequent hospital visit by physician Charlie [facility] To [facility] Work Phone: Radiology Comment on above: Hammertoe of left fo ot [M20.42] Start: 04-02-2024 End: 04-02-2024 ambulatory ERICA HERMAN Facility:[facility] Start: 04-02-2024 End: 04-02-2024 Patient encounter procedure Kedar Long Work Phone: Podiatry Comment on above: Diabetic polyneuropa thy associated with type 2 diabetes mellitus (HCC) (Primary Dx); Onychomycosis; Callus of foot; History of below-knee amputation of right lower extremity (HCC); Hammertoe of left foot; Diminished pulses in lower extremity Start: 02-24-2024 End: 02-24-2024 ambulatory Millie Altoona Facility:[facility] Start: 12-31-2023 End: 12-31-2023 ambulatory [facility] Facility:[facility] Start: 12-31-2023 End: 12-31-2023 Patient encounter procedure Kedar Goldbergmagalys Work Phone: Podiatry Comment on above: Callus of foot (Prim shannan Dx); Diabetic polyneuropathy associated with type 2 diabetes mellitus (HCC) Start: 12-14-2023 End: 12-16-2023 Documentation procedure Mammography Coordinator [facility] Department Start: 12-14-2023 End: 12-16-2023 Letter encounter Mammography Coordinator [facility] Start: 12-12-2023 End: 12-12-2023 Patient encounter procedure Neena Minaya APRN.CNP Work Phone: OB/Gynecology Comment on above: Encounter for gyneco logical examination (general) (routine) without abnormal findings (Primary Dx); Encounter for screening mammogram for breast cancer Start: 12-12-2023 End: 12-12-2023 Patient encounter status Neena Minaya APRN.CNP Work Phone: [facility] Start: 12-12-2023 End: 12-12-2023 ambulatory [facility] Facility:[facility] Start: 12-12-2023 End: 12-12-2023 Subsequent hospital visit by physician Screen Mammo Pending [facility] To [facility] Comment on above: Encounter for screen ing mammogram for breast cancer [Z12.31] Start: 12-10-2023 End: 12-10-2023 Subsequent hospital visit by physician Xr [facility] Work Phone: Radiology Comment on above: Diabetic ulcer of he el associated with diabetes mellitus due to underlying condition, limited to breakdown of skin, unspecified laterality ([facility]) [E08.621, L97.401] Start: 12-10-2023 End: 12-10-2023 ambulatory ERICA HERMAN Facility:[facility] Start: 12-10-2023 End: 12-10-2023 Patient encounter procedure Kedar Long Work Phone: Podiatry Comment on above: Callus of foot (Prim shannan Dx); Onychomycosis; History of below-knee amputation of right lower extremity (HCC); Diabetic ulcer of heel associated with diabetes mellitus due to underlying condition, limited to breakdown of skin, unspecified laterality (HCC) Start: 11-11-2023 End: 11-11-2023 Telephone encounter Sarah Fowler APRN.CNP Work Phone: [facility] [place] Comment on above: Results Start: 11-06-2023 End: 11-06-2023 Telephone encounter Sarah Fowler APRN.CNP Work Phone: [facility] Comment on above: Results Start: 11-05-2023 End: 11-05-2023 Patient encounter procedure Erica Herman MD Work Phone: [facility] Comment on above: Primary hypertension (Primary Dx); DM type 2 with diabetic peripheral neuropathy (HCC); Below-knee amputation of right lower extremity, sequela (HCC); Normocytic anemia; Hyperlipidemia, mixed; Coronary artery calcification; Tobacco use disorder Start: 08-19-2023 End: 08-19-2023 Nursing evaluation of patient and report Nurse Card Admin [facility] Work Phone: Cardiology Comment on above: Screening for ischem ic heart disease (Primary Dx) Start: 08-19-2023 End: 08-19-2023 Subsequent hospital visit by physician [facility] Work Phone: Nuclear Medicine Comment on above: Coronary artery calc ification seen on CAT scan [I25.10] Start: 08-16-2023 Telephone encounter Nurse Card Admin [facility] Work Phone: Cardiology Comment on above: Stress Test Instruct ions Start: 08-06-2023 Telephone encounter Sarah pearce APRN.AUTO WASH BUFFER Work Phone: [facility] Comment on above: Results Start: 08-06-2023 End: 08-06-2023 Patient encounter procedure Bharati Riggs MD Work Phone: 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); Below-knee amputation of right lower extremity, subsequent encounter (HCC) Start: 08-06-2023 End: 08-06-2023 ambulatory BHARATI RIGGS Facility:[facility] Start: 08-05-2023 End: 08-05-2023 Patient encounter procedure Sarah Fowler APRN.[employer] W[employer] BUFFER Work Phone: [facility] Comment on above: Primary hypertension (Primary Dx); DM type 2 with diabetic peripheral neuropathy (HCC); Anemia, unspecified type; Below-knee amputation of right lower extremity, sequela (HCC); Tobacco use disorder; Hyperlipidemia, mixed; Coronary artery calcification; Weight loss Start: 08-01-2023 End: 08-01-2023 Patient encounter procedure Kedar Long Work Phone: Podiatry Comment on above: Callus of foot (Prim shannan Dx); History of below-knee amputation of right lower extremity (HCC); Diabetic polyneuropathy associated with type 2 diabetes mellitus (HCC) Start: 07-22-2023 Telephone encounter Bharati Riggs MD Work Phone: [facility] Comment on above: Appointment Start: 07-18-2023 End: 07-18-2023 Evaluation and management of inpatient ERICA HERMAN Facility:[facility] Start: 07-16-2023 End: 07-16-2023 Patient encounter procedure Bharati Riggs MD Work Phone: 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 Camille Herman Work Phone: [facility] Start: 07-11-2023 End: 07-16-[address] Art Herman Work Phone: [facility] Work Phone: Start: 07-11-2023 End: 07-16-[address] Art Herman Work Phone: [facility] Work Phone: Start: 07-09-2023 Telephone encounter Art Herman MD Work Phone: [facility] Comment on above: Patient Update Start: 07-04-2023 Non-patient / Non-visit Dr. Camille Herman Work Phone: [facility] Start: 07-04-2023 End: 07-04-2023 Patient encounter procedure Kedar Long Work Phone: Podiatry Comment on above: Callus of foot (Prim shannan Dx); Diabetic ulcer of midfoot associated with diabetes mellitus due to underlying condition, limited to breakdown of skin, unspecified laterality (HCC); Onychomycosis; History of below-knee amputation of right lower extremity (HCC); Diabetic polyneuropathy associated with type 2 diabetes mellitus (HCC) Start: 07-02-2023 End: 07-02-2023 Patient encounter procedure Erica Herman MD Work Phone: [facility] Comment on above: Below-knee amputatio n of right lower extremity, sequela (HCC) (Primary Dx); Acute osteomyelitis of right tibia (HCC); Tobacco use disorder; Disability examination Start: 07-01-2023 Telephone encounter Georgia Howard Start: 06-27-2023 Non-patient / Non-visit Dr. Camille Herman Work Phone: [facility] Start: 06-27-2023 Telephone encounter Art Herman MD Work Phone: [facility] [place] Comment on above: disability paperwork Start: 06-27-[address] Go Herman [facility] Work Phone: Start: 06-26-2023 End: 06-26-[address] Adrien Godoy Work Phone: [facility] Work Phone: Start: 06-26-2023 End: 06-26-[address] Adrien Godoy Work Phone: [facility] Work Phone: Start: 06-25-2023 End: 06-25-2023 Patient encounter procedure Bharati Riggs MD Work Phone: 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 Adrien Godoy Work Phone: [facility] Work Phone: Start: 06-19-2023 End: 06-19-[address] Adrien Godoy Work Phone: [facility] Work Phone: Start: 06-17-2023 End: 06-17-2023 Patient encounter procedure Yaakov Hayes MD Work Phone: Cardiology Comment on above: Screening for ischem ic heart disease (Primary Dx); Coronary artery calcification seen on CAT scan; Atherosclerosis of [place] coronary artery of [place] heart without angina pectoris Start: 06-13-2023 Non-patient / Non-visit Dr. Bert Godoy Work Phone: [facility] Start: 06-13-2023 End: 06-16-[address] Adrien Godoy Work Phone: [facility] Work Phone: Start: 06-13-2023 End: 06-16-[address] Adrien Godoy Work Phone: [facility] Work Phone: Start: 06-12-2023 End: 06-12-[address] Adrien Godoy Work Phone: [facility] Work Phone: Start: 06-06-2023 Non-patient / Non-visit Dr. Bert Godoy Work Phone: [facility] Start: 06-06-[address] Adrien armstrong Work Phone: [facility] Work Phone: Start: 06-03-2023 End: 06-03-[address] Adrien Godoy Work Phone: [facility] Work Phone: Start: 06-03-2023 End: 06-03-[address] Adrien Godoy Work Phone: [facility] Work Phone: Start: 05-30-2023 Non-patient / Non-visit Dr. Bert Godoy Work Phone: [facility] Start: 05-23-2023 Non-patient / Non-visit Dr. Bert Godoy Work Phone: [facility] Start: 05-21-2023 Non-patient / Non-visit Dr. Bert Godoy Work Phone: [facility] Start: 05-21-2023 End: 05-21-2023 ambulatory BHARATI RIGGS Facility:[facility] Start: 05-20-2023 Telephone encounter Bharati Riggs MD Work Phone: [facility] Comment on above: Appointment Start: 05-16-2023 End: 05-16-[address] Adrien Godoy Work Phone: [facility] Work Phone: Start: 05-16-2023 End: 05-16-[address] Adrien Godoy Work Phone: [facility] Work Phone: Start: 04-19-2023 Non-patient / Non-visit Dr. Bert Godoy Work Phone: [facility] Start: 04-18-[address] Adrien armstrong Work Phone: [facility] Work Phone: Start: 04-17-2023 End: 04-17-[address] Adrien Godoy Work Phone: [facility] Work Phone: Start: 04-17-2023 End: 04-17-[address] Adrien Godoy Work Phone: [facility] Work Phone: Start: 04-04-2023 Non-patient / Non-visit Dr. Bert Godoy Work Phone: [facility] Start: 04-04-2023 End: 04-17-[address] Adrien Godoy Work Phone: [facility] Work Phone: Start: 04-04-2023 End: 04-17-[address] Adrien Godoy Work Phone: [facility] Work Phone: Start: 03-22-2023 Non-patient / Non-visit Dr. Bert Godoy Work Phone: [facility] Start: 03-15-2023 Non-patient / Non-visit Dr. Bert Godoy Work Phone: [facility] Start: 03-14-2023 End: 03-17-[address] Adrien Godoy [facility]: [facility] Work Phone: Start: 03-07-2023 Telephone encounter Art Herman MD Work Phone: [facility] [place] Comment on above: Results Start: 03-01-2023 Non-patient / Non-visit Dr. Bert Godoy Work Phone: [facility] Phys[facility] Work Phone: Start: 02-28-2023 Non-patient / Non-visit [facility] Work Phone: [facility] Start: 02-28-2023 Non-patient / Non-visit [facility] Work Phone: [facility] Work Phone: Start: 02-27-2023 Non-patient / Non-visit [facility] Work Phone: [facility] Start: 02-26-2023 Non-patient / Non-visit [facility] Work Phone: [facility] Start: 02-26-2023 End: 03-01-2023 Evaluation and management of inpatient [facility]: [facility] Work Phone: Start: 02-16-2023 End: 02-16-2023 Emergency department patient visit [facility]: [facility] Work Phone: Start: 02-16-2023 End: 02-16-2023 Patient encounter procedure Colette Lin SECTION MAINTAINER.AUTO WASH BUFFER Work Phone: [facility] Comment on above: Wound infection (Ara sylwia Dx) Start: 02-04-2023 Telephone encounter Art Herman MD Work Phone: [facility] [place] Comment on above: Results Start: 02-01-2023 End: 02-01-2023 Patient encounter procedure Erica Herman MD Work Phone: [facility] [place] Comment on above: DM type 2 with diabe tic peripheral neuropathy (HCC) (Primary Dx); Callus of foot; Thickened nails; Primary hypertension; Hyperlipidemia, mixed; Coronary artery calcification; Status post below-knee amputation of right lower extremity (HCC); Tobacco use disorder; Encounter for immunization Start: 12-10-2022 End: 12-10-2022 Patient encounter procedure Korina Kitchen APRN.CNM Work Phone: OB/Gynecology Comment on above: Encounter for gyneco logical examination (general) (routine) without abnormal findings (Primary Dx); Screening for cervical cancer; Encounter for screening for human papillomavirus (HPV); Pap smear for cervical cancer screening; Encounter for screening mammogram for breast cancer Start: 12-10-2022 End: 12-10-2022 Patient encounter status Korina Kitchen APRN.CNM Work Phone: [facility] Start: 12-10-2022 Telephone encounter Naomy wiley SECTION MAINTAINER.AUTO WASH BUFFER Work Phone: [facility] Comment on above: Results Start: 12-06-2022 End: 12-06-2022 Subsequent hospital visit by physician Screen Mammo Pending Sale To [facility] Comment on above: Screening mammogram for breast cancer [Z12.31] Start: 11-21-2022 End: 11-21-2022 Patient encounter procedure [facility] Work Phone: [facility] Work Phone: Start: 11-05-2022 Telephone encounter Art Herman MD Work Phone: [facility] [place] Comment on above: Results Start: 11-01-2022 End: 11-01-2022 Patient encounter procedure Erica Herman MD Work Phone: [facility] Comment on above: Encounter for medica l examination to establish care (Primary Dx); DM type 2 with diabetic peripheral neuropathy (HCC); Gas gangrene of extremity (HCC); Status post below-knee amputation of right lower extremity (HCC); Screening for colon cancer; Screening for cervical cancer; Screening mammogram for breast cancer; Tobacco use Start: 11-01-2022 End: 11-01-2022 Patient encounter status Erica Herman MD Work Phone: [facility] Work Phone: Start: 09-25-2022 End: 09-25-2022 ambulatory BHARATI RIGGS Facility:[facility] Start: 09-20-2022 End: 09-20-[address] Kee Kaye Work Phone: [facility] Work Phone: Start: 09-20-2022 End: 09-20-[address] Kee Kaye Work Phone: [facility] Work Phone: Start: 07-31-2022 End: 07-31-[address] Kee Kaye Work Phone: [facility] Work Phone: Start: 07-18-2022 End: 07-18-2022 Patient encounter procedure Sergio Berumen MD Work Phone: [facility] [place] Department of Infectious Disease Comment on above: Encounter for follow -up (Primary Dx); History of bacteremia; History of staph infection; S/P BKA (below knee amputation), right (HCC) Start: 07-17-2022 End: 07-17-2022 Patient encounter procedure Bharati Riggs MD Work Phone: 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 Comment on above: Opened In Error Appointment Start: 07-02-2022 Telephone encounter Sergio ruth MD Work Phone: [facility] Department of Infectious Disease Comment on above: Results Start: 06-28-2022 Telephone encounter Sergio ruth MD Work Phone: [facility] Department of Infectious Disease Comment on above: Results Start: 06-25-2022 Telephone encounter Sergio ruth MD Work Phone: [facility] Department of Infectious Disease Comment on above: CoPat Stop Results Results; Treatment P hugo Start: 06-22-2022 Telephone encounter Sergio ruth MD Work Phone: [facility] Department of Infectious Disease Comment on above: Results Start: 06-19-2022 End: 06-19-2022 Patient encounter procedure Bharati Riggs MD Work Phone: 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 MEDICAL REENA RODRIGUEZ Start: 05-31-2022 Evaluation and management of inpatient INDUSTRIAL GAS FITTER HELPER-C Felecia Christianson [facility] Work Phone: [facility] Start: 05-31-2022 Non-patient / Non-visit INDUSTRIAL G[employer] FITTER HELPER-C Marimar Christianson [facility] Work Phone: [facility] Inpatient Physicians Start: 05-31-2022 End: 05-31-2022 Emergency department patient visit Dr. Kee Kaye Work Phone: [facility] Work Phone: Start: 03-21-2022 End: 03-21-2022 ambulatory [facility] Work Phone: [facility] Work Phone: Start: 03-21-2022 End: 03-21-2022 Patient encounter procedure [facility] Work Phone: [facility] Endocrinology Start: 12-27-2021 End: 01-15-2022 ambulatory [facility] Work Phone: [facility] Work Phone: Start: 12-27-2021 End: 01-15-2022 Discharged Recurring [facility] Work Phone: [facility] Start: 12-14-2021 End: 12-14-2021 Patient encounter procedure [facility] Work Phone: [facility] Start: 11-30-2021 End: 12-15-2021 Discharged Recurring [facility] Work Phone: [facility] Start: 11-15-2021 End: 11-15-2021 Discharged Recurring [facility] Work Phone: [facility] Start: 11-07-2021 End: 11-07-2021 ambulatory [facility] Work Phone: Start: 11-07-2021 End: 11-07-2021 Patient encounter procedure [facility] Start: 11-02-2021 [facility] Start: 05-22-2018 End: 05-22-2018 Patient encounter procedure [facility] Start: 05-08-2018 End: 05-08-2018 Patient encounter procedure [facility] Start: 04-24-2018 End: 04-24-2018 Patient encounter procedure [facility] Procedures Date Procedure Procedure Detail Performing Clinician Start: 11-11-[address] Art Herman MD Work Phone: Start: 11-11-2024 Gram stain microscopy Marlen Herman MD Work Phone: Start: 11-11-2024 Microbial culture, routine Dr. Art Herman MD Work Phone: Start: 10-26-2024 Ecg routine ecg w/le ast 12 lds i&r only Erica Herman MD Work Phone: Start: 10-08-2024 Gram stain microscopy D giovana Herman MD Work Phone: Start: 10-08-2024 Microbial culture, routine Dr. Art Herman MD Work Phone: Start: 08-26-2024 Vitamin D, 25-hydrox y measurement Dr. Art Herman MD Work Phone: Comment on above: Vitamin D StatusDefi ciency: <20 ng/mL (50nmol/L)Insufficiency: 20-30 ng/mL (50-75 nmol/L)Sufficiency: 30-100 ng/mL (75-250 nmol/L)Toxicity: >100 ng/mL (>250 nmol/L) Start: 07-25-[address] Art Herman MD Work Phone: Start: 07-25-2024 Serum inorganic phos phate measurement Dr. Art Herman MD Work Phone: Start: 07-23-2024 Clostridium difficil e detection Dr. Art Herman MD Work Phone: Start: 07-23-[address] Art Herman MD Work Phone: Start: 07-23-[address] Art Herman MD Work Phone: Start: 07-23-2024 Iadna-dna/rna gi pth gn multiplex probe tq 6-11 Dr. Art Herman MD Work Phone: Start: 07-22-[address] Go Herman MD Work Phone: Start: 07-22-2024 Urnls dip stick/tabl et reagent auto microscopy Dr. Art Herman MD Work Phone: Start: 07-22-2024 Osmolality measureme nt, serum Dr. Art Herman MD Work Phone: Start: 07-22-2024 Plain chest X-ray Dr. Sole Herman MD Work Phone: Start: 07-22-2024 CT of head without contrast Dr. Art Herman MD Work Phone: Start: 07-22-[address] Art Herman MD Work Phone: Start: 08-19-2023 Myocardial spect mul tiple studies Yaakov Hayes MD Work Phone: Start: 06-26-2023 MRI of lower limb wi th contrast Dr. Art Herman Work Phone: Start: 05-16-2023 Plain X-ray of tibia and fibula Dr. Adrien Godoy Work Phone: Start: 05-16-[address] Adrien Godoy Work Phone: Start: 05-16-2023 Investigation of transfusion reaction Dr. Adrien Godoy Work Phone: Start: 05-16-2023 Microbial culture, routine Dr. Adrien Godoy Work Phone: Start: 02-26-2023 CT of lower limb wit h contrast [facility] Work Phone: Start: 02-26-2023 Bacteria identified in Blood by Culture Dr. Adrien Godoy Work Phone: Start: 02-26-2023 Investigation of transfusion reaction [facility] Work Phone: Start: 02-26-2023 Microbial culture, routine [facility] Work Phone: Start: 02-26-2023 Plain X-ray of tibia and fibula [facility] Work Phone: Start: 02-16-2023 Radiologic examinati on of knee [facility] Work Phone: Start: 12-06-2022 Screening mammograph y bi 2-view breast inc cad Erica Herman MD Work Phone: Start: 06-29-2022 Creatinine [Mass/vol ume] in Serum or Plasma Sergio Berumen MD Work Phone: Start: 06-28-2022 VANCOMYCIN PRE DOSE (AK) Sergio Berumen MD Work Phone: Start: 06-25-2022 VANCOMYCIN PRE DOSE (AK) Sergio Berumen MD Work Phone: Start: 06-22-2022 CBCDIF (EXTERNAL) Chris Berumen MD Work Phone: Start: 06-22-2022 Creatinine [Mass/vol ume] in Serum or Plasma Sergio Berumen MD Work Phone: Start: 06-22-2022 VANCOMYCIN PRE DOSE (AK) Sergio Berumen MD Work Phone: Start: 05-31-2022 Bacteria Detection (PCR) Dr. Kee Kaye Work Phone: Start: 05-31-2022 Bacteria identified in Blood by Culture Dr. Kee Kaye Work Phone: Start: 05-31-2022 History of amputatio n of leg through tibia and fibula S/P BKA (below knee amputation) Erica Herman MD Work Phone: Start: 05-31-2022 Measurement of occul t blood in stool specimen using immunoassay INDUSTRIAL GAS FITTER HELPER-C Felecia Christianson [facility] Work Phone: Start: 05-31-2022 Viral antigen assay INDUSTRIAL GAS FITTER HELPER- C Felecia Christianson [facility] Work Phone: Start: 05-31-2022 Plain X-ray of femur INDUSTRIAL GAS FITTER HELPER -C Felecia Torress [facility] Work Phone: Start: 05-31-2022 Plain X-ray of tibia and fibula INDUSTRIAL GAS FITTER HELPER-C Felecia Torress [facility] Work Phone: Start: 05-31-2022 X-ray of both feet INDUSTRIAL GAS FITTER HELPER-C Felecia Christianson [facility] Work Phone: Start: 05-18-2016 Mammography Sergio saab III, MD Work Phone: Plan of Treatment Date Care Activity Detail Author Start: 02-01-2033 Urine microalbumin profile DTaP,Tdap,Td Vaccine (2 - Td or Tdap) [facility] Start: 12-11-2027 HPV Testing HPV Testing [facility] Start: 12-11-2027 Pap Testing Pap Testing [facility] Start: 12-11-2027 Screening for malign ant neoplasm of cervix [facility] Start: 11-24-2025 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 Customer Service Attendant karrie Disease Visit 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 Chronic Disease Visit [facility] Start: 10-26-2025 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 Customer Service Attendant karrie Disease Visit 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 Chronic Disease Visit [facility] Start: 07-13-2025 BP Controlled (<130/80) BP Controlle d (<130/80) [facility] Start: 06-29-2025 BP Controlled (<130/80) BP Controlle d (<130/80) [facility] Start: 06-28-2025 End: 06-28-2025 Patient encounter procedure 06/28/2025 11:00 AM EDT Office Visit Cardiology [address] [place] [address] Yaakov Hayes MD [address], [address] [place], [place] [id number] 1 year follow up Cardiology Comment on above: 1 year follow up Start: 06-18-2025 Diabetic foot examination Diabetic F oot Exam [facility] Start: 06-08-2025 BP Controlled (<130/80) BP Controlle d (<130/80) [facility] Start: 05-28-2025 Screening for malign ant neoplasm of colon [facility] Start: 05-13-2025 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 Customer Service Attendant karrie Disease Visit 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 Chronic Disease Visit [facility] Start: 05-13-2025 BP Controlled (<130/80) BP Controlle d (<130/80) [facility] Start: 05-13-2025 Covid-19 Vaccine ( season) Covid-19 Vaccine () [facility] Comment on above: Postponed from 11/16 (Declined at this time) Start: 05-13-2025 Hepatitis B surface antibody level LDL Cholesterol [facility] Start: 05-13-2025 Hepatitis B Vaccine (1 of 3 - 19+ 3-dose series) Hepatitis B Vaccine (1 of 3 - 19+ 3-dose series) [facility] Comment on above: Postponed from 07/12 (Declined at this time) Start: 05-13-2025 Hepatitis C screening Hepatitis C Sc basilioning [facility] Comment on above: Postponed from 07/12 (Declined at this time) Start: 05-13-2025 HIV screening HIV Screening [facility] Comment on above: Postponed from 07/12 (Declined at this time) Start: 05-13-2025 Shingrix Vaccine (1 of 2) Holliday grix Vaccine (1 of 2) [facility] Comment on above: Postponed from 07/12 (Declined at this time) Start: 01-26-2025 Hemoglobin A1c measurement HbA1C [facility] Start: 12-24-2024 End: 12-24-2024 ambulatory 12/24/2024 1:00 PM EDT Visit (SP) Office Hematology/Oncology [address] [place] [address] Coby Delgado [address], [place] [id number] INDUSTRIAL GAS FITTER HELPER/IRON DEFICIENCY ANEMIA/REF PROV DR HERMAN* Hematology/Oncology Comment on above: INDUSTRIAL GAS FITTER HELPER/IRON DEFICIENCY A NEMIA/REF PROV DR HERMAN* Start: 12-17-2024 End: 12-17-2024 Patient encounter procedure Mammogram Comment on above: Encounter for screen ing mammogram for breast cancer [Z12.31] Annaul Start: 12-14-2024 End: 12-14-2024 Patient encounter procedure Mammogram Comment on above: Encounter for screen ing mammogram for breast cancer [Z12.31] [facility] Start: 12-11-2024 BP Controlled (<130/80) BP Controlle d (<130/80) [facility] Start: 12-11-2024 Screening for malign ant neoplasm of breast Mammogram Screening [facility] Start: 12-09-2024 End: 12-09-2024 Patient encounter procedure 12/09/2024 11:00 AM EDT Office Visit [facility] [place] [address] [place] [address] Sarah Fowler APRN.AUTO WASH BUFFER [address] [place] [address] 6 wk f/u/6 month follow up r/s from 11/11/24 [facility] [place] Comment on above: 6 wk f/u/6 month fol low up r/s from 11/11/24 Start: 11-28-2024 End: 02-26-2025 CBC W Auto Differential panel - Blood COMPLETE BLOOD COUNT AND DIFFERENTIAL Lab Routine Normocytic anemia Expected: 11/28/2024, Expires: 02/26/2025 [facility] Comment on above: Expected: 11/28/2024 , Expires: 02/26/2025 Start: 11-28-2024 End: 02-26-2025 Comprehensive metabolic 2000 panel - Serum or Plasma COMPREHENSIVE METABOLIC PANEL Lab Routine Normocytic anemia Expected: 11/28/2024, Expires: 02/26/2025 [facility] Comment on above: Expected: 11/28/2024 , Expires: 02/26/2025 Start: 11-28-2024 End: 02-26-2025 Ferritin [Mass/volume] in Serum or Plasma FERRITIN Lab Routine Normocytic anemia Expected: 11/28/2024, Expires: 02/26/2025 [facility] Comment on above: Expected: 11/28/2024 , Expires: 02/26/2025 Start: 11-28-2024 End: 02-26-2025 Folate [Mass/volume] in Serum or Plasma FOLATE, SERUM Lab Routine Normocytic anemia Expected: 11/28/2024, Expires: 02/26/2025 [facility] Comment on above: Expected: 11/28/2024 , Expires: 02/26/2025 Start: 11-28-2024 End: 02-26-2025 Iron and Iron binding capacity panel - Serum or Plasma IRON AND TIBC Lab Routine Normocytic anemia Expected: 11/28/2024, Expires: 02/26/2025 [facility] Work Phone: Comment on above: Expected: 11/28/2024 , Expires: 02/26/2025 Start: 11-26-2024 End: 11-26-2024 Patient encounter procedure 11/26/2024 11:15 AM EDT Office Visit Podiatry [address] [place] [id number] Kedar Long [address] [place] [address] 2 week follow up ulcer Podiatry Comment on above: 2 week follow up ulc er Start: 11-24-2024 End: 02-23-2025 Comprehensive metabolic 2000 panel - Serum or Plasma [facility] Work Phone: Comment on above: Expected: 11/24/2024 , Expires: 02/23/2025 Start: 11-24-2024 End: 02-23-2025 Ferritin [Mass/volume] in Serum or Plasma [facility] Comment on above: Expected: 11/24/2024 , Expires: 02/23/2025 Start: 11-24-2024 End: 02-23-2025 Iron and Iron binding capacity panel - Serum or Plasma [facility] Comment on above: Expected: 11/24/2024 , Expires: 02/23/2025 Start: 11-24-2024 End: 11-24-2024 Patient encounter procedure 11/24/2024 2:00 PM EDT Office Visit [facility] [address] [place] [address] Erica Herman MD [address] [place] [address] surgery clearance, surgery date 12/04/24 left foot [facility] Comment on above: surgery clearance, s urgery date 12/04/24 left foot Start: 11-16-2024 Influenza vaccination [facility] Start: 11-12-2024 End: 11-12-2024 Patient encounter procedure 11/12/2024 11:15 AM EDT Office Visit Podiatry [address] [place] [address] Kedar Long [address] [place] [address] 2 week follow up ulcer Podiatry Comment on above: 2 week follow up [facility] Start: 11-11-2024 End: 11-11-2024 Patient encounter procedure [facility] [place] Comment on above: 6 month follow up 6 month follow up/ H CC gaps Start: 11-04-2024 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 Customer Service Attendant karrie Disease Visit 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 Chronic Disease Visit [facility] Start: 11-04-2024 BP Controlled (<130/80) BP Controlle d (<130/80) [facility] Start: 10-29-2024 End: 10-29-2024 Patient encounter procedure 10/29/2024 2:45 PM EDT Office Visit Podiatry [address] [place] [address] Kedar Long [address] [place] [address] 2 week follow up ulcer Podiatry Comment on above: 2 week follow up [facility] Start: 10-28-2024 End: 01-26-2025 Bacteria identified in Urine by Culture BACTERIAL CULTURE, URINE Microbiology Routine VIJAY (acute kidney injury) Other general symptoms and signs Expected: 10/28/2024, Expires: 01/26/2025 [facility] Comment on above: Expected: 10/28/2024 , Expires: 01/26/2025 Start: 10-28-2024 End: 01-26-2025 Urinalysis complete panel - Urine URINALYSIS, WITH MICROSCOPIC Lab Routine VIJAY (acute kidney injury) Expected: 10/28/2024, Expires: 01/26/2025 [facility] Comment on above: Expected: 10/28/2024 , Expires: 01/26/2025 Start: 10-26-2024 End: 01-25-2025 Comprehensive metabolic 2000 panel - Serum or Plasma [facility] Work Phone: Comment on above: Expected: 10/26/2024 , Expires: 01/25/2025 Start: 10-26-2024 End: 01-25-2025 Hemoglobin A1c in Blood [facility] Comment on above: Expected: 10/26/2024 , Expires: 01/25/2025 Start: 10-16-2024 Medicare Annual Well ness Visit Medicare Annual Wellness Visit [facility] Start: 10-15-2024 End: 10-15-2024 Patient encounter procedure 10/15/2024 3:00 PM EDT Office Visit Podiatry [address] [place] [address] Kedar Long [address] [place] [address] 2 week follow up ulcer Podiatry Comment on above: 2 week follow up [facility] Start: 10-01-2024 End: 10-01-2024 Patient encounter procedure 10/01/2024 1:30 PM EDT Office Visit Podiatry [address] [place] [address] Kedar Long [address] [place] [address] 2 week follow up ulcer Podiatry Comment on above: 2 week follow up [facility] Start: 09-17-2024 End: 09-17-2024 Patient encounter procedure 09/17/2024 10:15 AM EDT Office Visit Podiatry [address] [place] [address] Kedar Long [address] [place] [address] 2 week follow up ulcer Podiatry Comment on above: 2 week follow up [facility] Start: 09-14-2024 Influenza vaccination Influenza Vacc ine (#1) [facility] Comment on above: Postponed from 11/16 (Declined at this time) Start: 09-01-2024 End: 09-01-2024 Patient encounter procedure 09/01/2024 2:15 PM EDT Office Visit Podiatry [address] [place] [address] Natanaellaura Kedar [address] [place] [address] 2 week follow up ulcer Podiatry Comment on above: 2 week follow up [facility] Start: 08-20-2024 End: 08-20-2024 Patient encounter procedure 08/20/2024 11:30 AM EDT Office Visit Podiatry [address] [place] [address] EthanVivianaew [address] [place] [address] 9 week follow up diabetic foot care Podiatry Comment on above: 9 week follow up [facility] Start: 08-04-2024 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 Customer Service Attendant karrie Disease Visit 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 Chronic Disease Visit [facility] Start: 08-04-2024 BP Controlled (<130/80) BP Controlle d (<130/80) [facility] Start: 07-25-2024 Patient discharge [facility] Start: 07-25-2024 [facility] Start: 07-23-2024 Wound care [facility] Start: 07-23-2024 Consultation for treatment [facility] Start: 07-23-2024 [facility] Start: 07-23-2024 Thyroid stimulating hormone measurement [facility] Start: 07-22-2024 [facility] Start: 07-22-2024 Following clinical pathway protocol [facility] Start: 07-22-2024 Assessment of risk o f venous thromboembolism [facility] Start: 07-22-2024 Continuous pulse oximetry [facility] Start: 07-22-2024 Following clinical pathway protocol [facility] Start: 07-22-2024 Incentive spirometry [facility] Start: 07-22-2024 Inhalation therapy procedure [facility] Start: 07-22-2024 Insertion of cathete r into peripheral vein [facility] Start: 07-22-2024 Lab findings surveillance [facility] Start: 07-22-2024 Measuring intake and output [facility] Start: 07-22-2024 Notification of physician [facility] Start: 07-22-2024 Oxygen therapy [facility] Start: 07-22-2024 Patient education [facility] Start: 07-22-2024 Patient referral to dietitian [facility] Start: 07-22-2024 Providing care accor ding to standard [facility] Start: 07-22-2024 Referral to occupati onal therapist [facility] Start: 07-22-2024 Referral to service [facility] Start: 07-22-2024 Respiratory therapy [facility] Start: 07-22-2024 Vital signs measurements [facility] Start: 07-22-2024 [facility] Start: 07-22-2024 End: 07-22-2024 Serum inorganic phosphate measurement [facility] Start: 07-22-2024 Verification routine [facility] Start: 07-22-2024 Admission procedure [facility] Start: 07-22-2024 End: 07-22-2024 [facility] Start: 07-22-2024 Osmolality measureme nt, serum [facility] Start: 07-22-2024 End: 07-22-2024 [facility] Start: 07-22-2024 Enteric precautions [facility] Start: 07-22-2024 Patient referral to dietitian [facility] Start: 07-13-2024 End: 07-13-2024 Patient encounter procedure 07/13/2024 10:00 AM EDT Office Visit Pulmonary Medicine [address] [place] [address] Naomy Bergman APRN.AUTO WASH BUFFER [address] [place] [address] Encounter for screening for lung cancer [Z12.2] Pulmonary Medicine Comment on above: Encounter for screen ing for lung cancer [Z12.2] Start: 07-01-2024 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 Customer Service Attendant karrie Disease Visit 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 Chronic Disease Visit [facility] Start: 07-01-2024 BP Controlled (<130/80) BP Controlle d (<130/80) [facility] Start: 06-29-2024 End: 06-29-2024 Patient encounter procedure Cardiology Comment on above: 1 year follow up Start: 06-18-2024 End: 06-18-2024 Patient encounter procedure Podiatry Comment on above: 9 week follow up [facility] Start: 06-16-2024 BP Controlled (<130/80) BP Controlle d (<130/80) [facility] Start: 06-11-2024 End: 09-10-2024 Folate [Mass/volume] in Serum or Plasma FOLATE, SERUM Lab Routine Folic acid deficiency Expected: 06/11/2024, Expires: 09/10/2024 [facility] Comment on above: Expected: 06/11/2024 , Expires: 09/10/2024 Start: 06-11-2024 End: 09-10-2024 Magnesium [Mass/volume] in Serum or Plasma MAGNESIUM Lab Routine Hypomagnesemia Expected: 06/11/2024, Expires: 09/10/2024 [facility] Comment on above: Expected: 06/11/2024 , Expires: 09/10/2024 Start: 06-08-2024 End: 06-08-2024 Patient encounter procedure 06/08/2024 10:45 AM EDT Office Visit General Surgery [address] [place] [id number] Gaye Tang MD [address] [place] [id number] CONSULT TO GENERAL SURGERY General Surgery Comment on above: CONSULT TO [facility] Start: 05-29-2024 End: 08-28-2024 CBC W Auto Differential panel - Blood COMPLETE BLOOD COUNT AND DIFFERENTIAL Lab Routine Hypokalemia Hypomagnesemia Folic acid deficiency Normocytic anemia Expected: 05/29/2024, Expires: 08/28/2024 [facility] Work Phone: Comment on above: Expected: 05/29/2024 , Expires: 08/28/2024 Start: 05-29-2024 End: 08-28-2024 Comprehensive metabolic 2000 panel - Serum or Plasma COMPREHENSIVE METABOLIC PANEL Lab Routine Hypokalemia Hypomagnesemia Folic acid deficiency Normocytic anemia Expected: 05/29/2024, Expires: 08/28/2024 [facility] Comment on above: Expected: 05/29/2024 , Expires: 08/28/2024 Start: 05-29-2024 End: 08-28-2024 Folate [Mass/volume] in Serum or Plasma FOLATE, SERUM Lab Routine Hypokalemia Hypomagnesemia Folic acid deficiency Normocytic anemia Expected: 05/29/2024, Expires: 08/28/2024 [facility] Comment on above: Expected: 05/29/2024 , Expires: 08/28/2024 Start: 05-29-2024 End: 08-28-2024 Magnesium [Mass/volume] in Serum or Plasma MAGNESIUM Lab Routine Hypokalemia Hypomagnesemia Folic acid deficiency Normocytic anemia Expected: 05/29/2024, Expires: 08/28/2024 [facility] Comment on above: Expected: 05/29/2024 , Expires: 08/28/2024 Start: 05-28-2024 End: 08-27-2024 Potassium [Moles/volume] in Serum or Plasma POTASSIUM Lab Routine Hypokalemia Expected: 05/28/2024, Expires: 08/27/2024 [facility] Work Phone: Comment on above: Expected: 05/28/2024 , Expires: 08/27/2024 Start: 05-14-2024 End: 08-13-2024 Cobalamin (Vitamin B12) [Mass/volume] in Serum or Plasma VITAMIN B12 Lab Routine Normocytic anemia Expected: 05/14/2024, Expires: 08/13/2024 [facility] Comment on above: Expected: 05/14/2024 , Expires: 08/13/2024 Start: 05-14-2024 End: 08-13-2024 Ferritin [Mass/volume] in Serum or Plasma FERRITIN Lab Routine Normocytic anemia Expected: 05/14/2024, Expires: 08/13/2024 [facility] Comment on above: Expected: 05/14/2024 , Expires: 08/13/2024 Start: 05-14-2024 End: 08-13-2024 Folate [Mass/volume] in Serum or Plasma FOLATE, SERUM Lab Routine Normocytic anemia Expected: 05/14/2024, Expires: 08/13/2024 [facility] Comment on above: Expected: 05/14/2024 , Expires: 08/13/2024 Start: 05-14-2024 End: 08-13-2024 Haptoglobin [Mass/volume] in Serum or Plasma HAPTOGLOBIN Lab Routine Normocytic anemia Expected: 05/14/2024, Expires: 08/13/2024 [facility] Comment on above: Expected: 05/14/2024 , Expires: 08/13/2024 Start: 05-14-2024 End: 08-13-2024 Iron and Iron binding capacity panel - Serum or Plasma IRON AND TIBC Lab Routine Normocytic anemia Expected: 05/14/2024, Expires: 08/13/2024 [facility] Comment on above: Expected: 05/14/2024 , Expires: 08/13/2024 Start: 05-14-2024 End: 08-13-2024 Lactate dehydrogenase [Enzymatic activity/volume] in Serum or Plasma LACTATE DEHYDROGENASE Lab Routine Normocytic anemia Expected: 05/14/2024, Expires: 08/13/2024 [facility] Comment on above: Expected: 05/14/2024 , Expires: 08/13/2024 Start: 05-14-2024 End: 08-13-2024 Magnesium [Mass/volume] in Serum or Plasma MAGNESIUM Lab Routine Hypokalemia Expected: 05/14/2024, Expires: 08/13/2024 [facility] Comment on above: Expected: 05/14/2024 , Expires: 08/13/2024 Start: 05-14-2024 End: 08-13-2024 Potassium [Moles/volume] in Serum or Plasma POTASSIUM Lab Routine Hypokalemia Expected: 05/14/2024, Expires: 08/13/2024 [facility] Work Phone: Comment on above: Expected: 05/14/2024 , Expires: 08/13/2024 Start: 05-14-2024 End: 08-13-2024 Potassium [Moles/volume] in Urine collected for unspecified duration POTASSIUM RANDOM URINE Lab Routine Hypokalemia Expected: 05/14/2024, Expires: 08/13/2024 [facility] Comment on above: Expected: 05/14/2024 , Expires: 08/13/2024 Start: 05-14-2024 End: 08-13-2024 RETICULOCYTE COUNT RETICULOCYTE COUNT Lab Routine Normocytic anemia Expected: 05/14/2024, Expires: 08/13/2024 [facility] Comment on above: Expected: 05/14/2024 , Expires: 08/13/2024 Start: 05-13-2024 End: 08-12-2024 LIPID PANEL, NONFASTING [facility] Work Phone: Comment on above: Expected: 05/13/2024 , Expires: 08/12/2024 Start: 05-13-2024 End: 05-13-2024 Patient encounter procedure 05/13/2024 11:00 AM EST Office Visit Family Medicine [place] [address] [place] [address] Erica Herman MD [address] [place] [address] 6 month follow up Family [facility] [place] Comment on above: 6 month follow up Start: 05-05-2024 End: 05-05-2024 Patient encounter procedure 05/05/2024 10:00 AM EST Office Visit Vasculary Surgery [address] [place] [address] Callus of foot [L84] Vasculary Surgery Comment on above: Callus of foot [L84] Start: 04-29-2024 End: 04-29-2024 Patient encounter procedure 04/29/2024 3:30 PM EST Office Visit Vasculary Surgery [address] [place] [address] Callus of foot [L84] Vasculary Surgery Comment on above: Callus of foot [L84] Start: 04-16-2024 End: 04-16-2024 Patient encounter procedure 04/16/2024 11:00 AM EST Office Visit Podiatry [address] [place] [address] Kedar Long [address] [address] 2 week follow up Podiatry Comment on above: 2 week follow up Start: 04-02-2024 End: 04-02-2024 Patient encounter procedure 04/02/2024 10:30 AM EST Office Visit Podiatry [address] [place], [place] [address] Kedar Long [address] [place] [address] 3 mo nail care Podiatry Comment on above: 3 mo nail care Start: 03-06-2024 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 Customer Service Attendant karrie Disease Visit 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 Chronic Disease Visit [facility] Start: 03-06-2024 BP Controlled (<130/80) BP Controlle d (<130/80) [facility] Start: 02-17-2024 BP Controlled (<130/80) BP Controlle d (<130/80) [facility] Start: 02-02-2024 3 comp foot exam completed Diabetic Foot Exam [facility] Start: 02-02-2024 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 Customer Service Attendant karrie Disease Visit 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 Chronic Disease Visit [facility] Start: 02-02-2024 BP Controlled (<130/80) BP Controlle d (<130/80) [facility] Start: 02-02-2024 Covid-19 Vaccine (#1) Covid-19 Vacci ne (#1) [facility] Comment on above: Postponed from 01/11 (Declined at this time) Start: 02-02-2024 Covid-19 Vaccine ( season) Covid-19 Vaccine () [facility] Comment on above: Postponed from 11/16 (Declined at this time) Start: 02-02-2024 Diabetic foot examination Diabetic F oot Exam [facility] Start: 02-02-2024 Hepatitis B surface antibody level LDL Cholesterol [facility] Start: 02-02-2024 Hepatitis B Vaccine (1 of 3 - 19+ 3-dose series) Hepatitis B Vaccine (1 of 3 - 19+ 3-dose series) [facility] Comment on above: Postponed from 07/12 (Declined at this time) Start: 02-02-2024 Hepatitis B Vaccine (1 of 3 - 3-dose series) Hepatitis B Vaccine (1 of 3 - 3-dose series) [facility] Comment on above: Postponed from 07/12 (Declined at this time) Start: 02-02-2024 Hepatitis C Screening Hepatitis C [facility] Comment on above: Postponed from 07/12 (Declined at this time) Start: 02-02-2024 Hepatitis C screening Hepatitis C [facility] Comment on above: Postponed from 07/12 (Declined at this time) Start: 02-02-2024 HIV Screening HIV Screening [facility] Comment on above: Postponed from 07/12 (Declined at this time) Start: 02-02-2024 HIV screening HIV Screening [facility] Comment on above: Postponed from 07/12 (Declined at this time) Start: 01-23-2024 End: 01-23-2024 Patient encounter procedure 01/23/2024 11:00 AM EST Office Visit Podiatry [address] [place] [address] Kedar Long [address] [place] [address] 2 week follow up Podiatry Comment on above: 2 week follow up Start: 01-09-2024 End: 01-09-2024 Patient encounter procedure 01/09/2024 1:45 PM EDT Office Visit Podiatry [address] [place] [address] Kedar Long [address] [place] [address] 2 week follow up Podiatry Comment on above: 2 week follow up Start: 12-26-2023 End: 12-26-2023 Patient encounter procedure 12/26/2023 11:15 AM EDT Office Visit Podiatry [address] [place] [address] Kedar Long [address] [place] [address] 2 week follow up Podiatry Comment on above: 2 week follow up Start: 12-12-2023 End: 12-12-2023 Patient encounter procedure Mammogram Comment on above: Encounter for screen ing mammogram for breast cancer [Z12.31] Annual Start: 12-11-2023 BP Controlled (<130/80) BP Controlle d (<130/80) [facility] Start: 12-11-2023 End: 01-09-2024 GALINA SCREENING GALINA SCREENING Radiology Routine Encounter for screening mammogram for breast cancer Expected: 12/11/2023 (Approximate), Expires: 01/09/2024 [facility] Work Phone: Comment on above: Expected: 12/11/2023 (Approximate), Expires: 01/09/2024 Start: 12-10-2023 End: 12-10-2023 Patient encounter procedure 12/10/2023 11:15 AM EDT Office Visit Podiatry [address] [place] [address] TestKedar dowell [address] [place] [address] Callus/toenail f/u Podiatry Comment on above: Callus/toenail f/u Start: 12-07-2023 End: 03-07-2024 CBC W Auto Differential panel - Blood COMPLETE BLOOD COUNT AND DIFFERENTIAL Lab Routine Leukocytosis, unspecified type Expected: 12/07/2023, Expires: 03/07/2024 [facility] Comment on above: Expected: 12/07/2023 , Expires: 03/07/2024 Start: 12-07-2023 Influenza vaccination Lung Cancer Sc reening [facility] Start: 12-07-2023 Mammography Mammogram Screening [facility] Start: 12-07-2023 Screening for malign ant neoplasm of breast Mammogram Screening [facility] Start: 12-07-2023 Screening for malign ant neoplasm of lung Lung Cancer Screening [facility] Start: 11-17-2023 Covid-19 Vaccine () Covid-19 Vaccine ( season) [facility] Start: 11-17-[address] [facility] Start: 11-15-2023 End: 02-14-2024 Potassium [Moles/volume] in Serum or Plasma POTASSIUM Lab Routine Hypokalemia Expected: 11/15/2023, Expires: 02/14/2024 [facility] Work Phone: Comment on above: Expected: 11/15/2023 , Expires: 02/14/2024 Start: 11-08-2023 End: 11-08-2023 Patient encounter procedure 11/08/2023 2:20 PM EDT Office Visit Podiatry [address] [place], [place] [id number] Kedar Long [address] [place] [address] 3 mo follow up Podiatry Comment on above: 3 mo follow up Start: 11-08-2023 End: 02-07-2024 Potassium [Moles/volume] in Serum or Plasma POTASSIUM Lab Routine Hypokalemia Expected: 11/08/2023, Expires: 02/07/2024 [facility] Work Phone: Comment on above: Expected: 11/08/2023 , Expires: 02/07/2024 Start: 11-05-2023 End: 11-05-2023 Patient encounter procedure 11/05/2023 10:20 AM EDT Office Visit Family [facility] [address] [place] [address] Erica Herman MD [address] [place] [address] 3 month follow up Family [facility] [place] Comment on above: 3 month follow up Start: 11-02-2023 3 comp foot exam completed DIABETIC FOOT EXAM [facility] Start: 11-02-2023 ANNUAL PCP TEAM DATABASE OPERATOR KARRIE DISEASE VISIT ANNUAL PCP TEAM CHRONIC DISEASE VISIT [facility] Start: 11-02-2023 BP CONTROLLED (<130/80) BP CONTROLLE D (<130/80) [facility] Start: 11-02-2023 Hepatitis B surface antibody level LDL CHOLESTEROL [facility] Start: 09-15-2023 Influenza vaccination Influenza Vacc ine (#1) [facility] Comment on above: Postponed from 11/16 (Declined at this time) Start: 09-06-2023 End: 12-06-2023 Basic metabolic 2000 panel - Serum or Plasma BASIC METABOLIC PANEL Lab Routine Hyponatremia Expected: 09/06/2023, Expires: 12/06/2023 [facility] Work Phone: Comment on above: Expected: 09/06/2023 , Expires: 12/06/2023 Start: 09-06-2023 End: 12-06-2023 CBC panel - Blood by Automated count COMPLETE BLOOD COUNT Lab Routine Anemia, unspecified type Expected: 09/06/2023, Expires: 12/06/2023 [facility] Comment on above: Expected: 09/06/2023 , Expires: 12/06/2023 Start: 08-29-2023 End: 08-29-2023 Patient encounter procedure 08/29/2023 10:30 AM EDT Office Visit Podiatry [address] [place] [id number] Kedar Long [address] [place] [id number] 2 week follow up callus Podiatry Comment on above: 2 week follow up sherif mary Start: 08-19-2023 End: 08-19-2023 Nursing evaluation of patient and report 08/19/2023 8:15 AM EDT Nurse Visit Cardiology [address] [place] [id number] Wstr, Nurse Card Admin Pending Sale To [facility] [address] [place] [id number] Coronary artery calcification seen on CAT scan [I25.10] Cardiology Comment on above: Coronary artery calc ification seen on CAT scan [I25.10] Start: 08-19-2023 End: 08-19-2023 Patient encounter procedure Nuclear Medicine Comment on above: Coronary artery calc ification seen on CAT scan [I25.10] CCN APPROVED Start: 08-06-2023 End: 08-06-2023 Patient encounter procedure 08/06/2023 10:15 AM EDT Office Visit [facility] [address] [place] [address] Bharati Riggs MD [address] [place] [address] PO-Right tibia bone SX;07/18/23 [facility] Comment on above: PO-Right tibia bone SX;07/18/23 Start: 08-05-2023 End: 08-05-2023 Patient encounter procedure 08/05/2023 11:20 AM EDT Office Visit Family Medicine [place] [address] [place] [address] PodlogarSarah APRN.AUTO WASH BUFFER [address] [place] [address] 6 month follow up/colonoscopy due [place] Family Medicine [place] Comment on above: 6 month follow up/co lonoscopy due [place] Start: 08-02-2023 Hemoglobin A1c measurement HbA1C [facility] Comment on above: Postponed from 08/31 (Postponed To Appropriate Date) Start: 08-02-2023 Hemoglobin A1c/Hemoglobin.total in Blood HbA1C [facility] Comment on above: Postponed from 08/31 (Postponed To Appropriate Date) Start: 08-01-2023 End: 08-01-2023 Patient encounter procedure 08/01/2023 10:15 AM EDT Office Visit Podiatry [address] [place] [address] Kedar Long [address] [place] [address] diabetic foot Podiatry Comment on above: diabetic foot Start: 07-19-2023 BP CONTROLLED (<130/80) BP CONTROLLE D (<130/80) [facility] Start: 07-19-2023 End: 07-19-2023 Patient encounter procedure 07/19/2023 1:00 PM EDT Office Visit Podiatry [address] [place] [address] Kedar Long [address] [place] [address] Ulcer follow up Podiatry Comment on above: Ulcer follow up Start: 07-18-2023 End: 07-18-2023 Admission to same day surgery center 07/18/2023 12:15 PM EDT - 07/18/2023 2:30 PM EDT Surgery [facility] [address] [place] [address] Bharati Riggs MD [address] [place], [place] [id number] PARTIAL EXCISION OF TIBIA BONE, RIGHT [facility] Comment on above: PARTIAL EXCISION OF TIBIA BONE, RIGHT Start: 07-18-2023 End: 07-18-2023 Amp leg thru tibia&fibula re-amputation AMPUTATION REVISION BELOW KNEE Osteomyelitis of right tibia, unspecified type (HCC) Chronic osteomyelitis of right tibia with draining sinus (HCC) 07/18/2023 12:15 PM EDT [facility] Start: 07-18-2023 End: 07-18-2023 Partial excision bone tibia PARTIAL EXCISION OF TIBIA BONE Osteomyelitis of right tibia, unspecified type (HCC) Chronic osteomyelitis of right tibia with draining sinus (HCC) 07/18/2023 12:15 PM EDT [facility] Start: 07-18-2023 Subsequent hospital visit by physician 07/18/2023 12:15 PM EDT Hospital Encounter [facility] [address] [place] [address] Bharati Riggs MD [address] [place], [place] [id number] Osteomyelitis of right tibia, unspecified type (HCC) [M86.9] [facility] Comment on above: Osteomyelitis of rig ht tibia, unspecified type (HCC) [M86.9] Start: 07-16-2023 End: 07-16-2023 Patient encounter procedure 07/16/2023 10:15 AM EDT Office Visit [facility] [address] [place] [address] Bharati Riggs MD [address] [address] rt romain [facility] Comment on above: rt bka Start: 06-26-2023 MR Lower extremity [facility] Start: 06-26-2023 MRI of lower limb wi th contrast Lower Ext No Joint W/WO Cont [facility] Start: 06-24-2023 End: 07-16-2024 NM Heart Perfusion W stress and W radionuclide IV NM CARDIAC PERF STRESS/PHARM Radiology Routine Coronary artery calcification seen on CAT scan Expected: 06/24/2023, Expires: 07/16/2024 [facility] Work Phone: Comment on above: Expected: 06/24/2023 , Expires: 07/16/2024 Start: 05-16-2023 Plain X-ray of tibia and fibula Tibia & Fibula 2 Views [facility] Start: 05-16-2023 XR Tibia and Fibula 2 Views [facility] Start: 04-13-2023 Hepatitis B screening Urine Albumin:Creatinine Ratio [facility] Comment on above: Postponed from 12/04 (Declined at this time) Start: 03-04-2023 Blood chemistry [facility] Start: 03-03-2023 [facility] Start: 03-03-2023 Blood chemistry [facility] Start: 03-02-2023 Blood chemistry [facility] [facility] Start: 03-01-2023 Patient discharge [facility] Start: 02-26-2023 Care regimes management [facility] Start: 02-26-2023 Notification of physician [facility] Start: 02-26-2023 [facility] Start: 02-26-2023 Consultation [facility] Start: 02-26-2023 Bacteria identified in Blood by Culture Blood Culture [facility] Start: 02-26-2023 Microscopic observat ion [Identifier] in Unspecified specimen by Gram stain Gram Stain [facility] Start: 02-26-2023 Wound Culture Wound Culture [facility] Start: 02-26-2023 Wound care [facility] Start: 02-26-2023 Following clinical pathway protocol [facility] Start: 02-26-2023 Assessment of risk o f venous thromboembolism [facility] Start: 02-26-2023 Consultation for treatment [facility] Start: 02-26-2023 Insertion of cathete r into peripheral vein [facility] Start: 02-26-2023 Providing care accor ding to standard [facility] Start: 02-26-2023 Provision of activit y privileges [facility] Start: 02-26-2023 Referral to occupati onal therapist [facility] Start: 02-26-2023 Referral to service [facility] Start: 02-26-2023 [facility] Start: 02-26-2023 Blood culture [facility] Start: 02-26-2023 Verification routine [facility] Start: 02-26-2023 Admission procedure [facility] Start: 02-26-2023 Hospital admission, emergency, from emergency room, medical nature [facility] Start: 02-26-2023 [facility] Start: 02-26-2023 [facility] Start: 02-26-2023 Patient referral to dietitian [facility] Start: 11-16-2022 Influenza vaccination [facility] Start: 08-31-2022 Hemoglobin A1c measurement HbA1C [facility] Start: 08-31-2022 Hemoglobin A1c/Hemoglobin.total in Blood HBA1C [facility] Start: 05-31-2022 Verification routine [facility] Start: 05-31-2022 End: 05-31-2022 Blood culture [facility] Start: 05-31-2022 [facility] Start: 11-16-2021 Influenza vaccination INFLUENZA (#1) [facility] Start: 09-20-2021 3 comp foot exam completed DIABETIC FOOT EXAM [facility] Start: 05-18-2017 Mammography MAMMOGRAM [facility] Start: 2016 Influenza vaccination LUNG CANCER SC REENING [facility] Start: 2016 SHINGRIX VACCINE (1 of 2) HOLLIDAY GRIX VACCINE (1 of 2) [facility] Start: 10-15-2012 HPV TESTING HPV TESTING [facility] Start: 10-15-2012 PAP TESTING PAP TESTING [facility] Start: 07-13-2011 COLOGUARD (FIT-DNA) COLOGUARD (FIT-D NA) [facility] Start: 07-13-2011 Colonoscopy COLONOSCOPY [facility] Start: 07-13-2011 COLORECTAL CANCER SCREENING COLORECTAL CANCER SCREENING [facility] Start: 07-13-[address] COLONOGRAPHY [facility] Start: 07-13-2011 FECAL OCCULT BLOOD FECAL OCCULT BLOO D [facility] Start: 07-13-2011 Screening for malign ant neoplasm of colon [facility] Start: 07-13-2011 SIGMOIDOSCOPY SIGMOIDOSCOPY [facility] Start: 06-22-2010 Hepatitis B surface antibody level LDL CHOLESTEROL [facility] Start: 04-02-2010 Glaucoma screening Dilated Retinal E xam [facility] Start: 04-02-2010 Hepatitis C antibody , confirmatory test DILATED RETINAL EXAM [facility] Start: 12-04-2009 Hepatitis B screening URINE ALBUMIN:CREATININE RATIO [facility] Start: 09-28-2008 PNEUMOCOCCAL (2 - PCV) PNEUMOCOCCAL (2 - PCV) [facility] Start: 09-28-2008 Pneumococcal vaccination Pneum ococcal Vaccine (2 - PCV) [facility] Start: 1985 Hepatitis B Vaccine (1 of 3 - 19+ 3-dose series) Hepatitis B Vaccine (1 of 3 - 19+ 3-dose series) [facility] Start: 1985 Urine microalbumin profile [facility] Start: 1984 ANNUAL PCP TEAM DATABASE OPERATOR KARRIE DISEASE VISIT ANNUAL PCP TEAM CHRONIC DISEASE VISIT [facility] Start: 1984 BP CONTROLLED (<130/80) BP CONTROLLE D (<130/80) [facility] Start: 1984 HEPATITIS C SCREENING HEPATITIS C [facility] Start: 1984 Hepatitis C screening Hepatitis C [facility] Start: 1984 HIV SCREENING HIV SCREENING [facility] Start: 1984 HIV screening HIV Screening [facility] Start: 01-11-1967 COVID-19 VACCINE (#1) COVID-19 VACCI NE (#1) [facility] Start: 1966 HEPATITIS B (1 of 3 - 3-dose series) HEPATITIS B (1 of 3 - 3-dose series) [facility] Start: 1966 Hepatitis B Vaccine (1 of 3 - 3-dose series) Hepatitis B Vaccine (1 of 3 - 3-dose series) [facility] Alanine aminotransfe rase [Enzymatic activity/volume] in Serum or Plasma [facility] Albumin [Mass/volume ] in Serum or Plasma [facility] Alkaline phosphatase [Enzymatic activity/volume] in Serum or Plasma [facility] Anion gap in Serum o r Plasma [facility] Anion gap in Serum o r Plasma [facility] Anion gap in Serum o r Plasma [facility] Anion gap in Serum o r Plasma [facility] Bacteria identified in Blood by Culture Blood Culture [facility] Bilirubin, total measurement [facility] BUN/Creatinine ratio [facility] BUN/Creatinine ratio [facility] BUN/Creatinine ratio [facility] BUN/Creatinine ratio [facility] Calcium [Mass/volume ] in Serum or Plasma [facility] Calcium [Mass/volume ] in Serum or Plasma [facility] Calcium [Mass/volume ] in Serum or Plasma [facility] Calcium [Mass/volume ] in Serum or Plasma [facility] Carbon dioxide, tota l [Moles/volume] in Central venous blood [facility] Carbon dioxide, tota l [Moles/volume] in Central venous blood [facility] Carbon dioxide, tota l [Moles/volume] in Central venous blood [facility] Carbon dioxide, tota l [Moles/volume] in Central venous blood [facility] Clostridioides diffi cile DNA [Presence] in Unspecified specimen by ELADIO with probe detection [facility] metabo lic 2000 panel - Serum or Plasma [facility] Creatinine [Mass/vol ume] in Serum or Plasma [facility] Creatinine [Mass/vol ume] in Serum or Plasma [facility] Creatinine [Mass/vol ume] in Serum or Plasma [facility] Creatinine [Mass/vol ume] in Serum or Plasma [facility] End: 01-09-2024 CT LUNG SCREEN WO IVCON CT LUNG SCREEN WO IVCON Radiology Routine Tobacco use 1 Occurrences starting 12/10/2022 until 01/09/2024 [facility] Work Phone: Comment on above: 1 Occurrences starti ng 12/10/2022 until 01/09/2024 End: 01-10-2025 DBT Breast - bilateral screening GALINA SCREENING W LIZA Radiology Routine Encounter for screening mammogram for breast cancer 1 Occurrences starting 12/12/2023 until 01/10/2025 [facility] Work Phone: Comment on above: 1 Occurrences starti ng 12/12/2023 until 01/10/2025 ECG COMPLETE ECG COMPLETE ECG Routine Screening for ischemic heart disease Ordered: 06/17/2023 [facility] Work Phone: Comment on above: Ordered: 06/17/2023 ECG COMPLETE ECG COMPLETE ECG Routine Pre-op evaluation 10/26/2024 2:11 PM EDT [facility] Erythrocyte mean corpuscular volume determination [facility] Glucose [Mass/volume ] in Serum or Plasma [facility] Glucose [Mass/volume ] in Serum or Plasma [facility] Glucose [Mass/volume ] in Serum or Plasma [facility] Glucose [Mass/volume ] in Serum or Plasma [facility] Hematocrit [Volume Fraction] of Blood [facility] Hemoglobin [Mass/vol ume] in Blood [facility] Hemoglobin A1c/Hemoglobin.total in Blood [facility] Hemoglobin.jerry fleming.lower [Presence] in Stool by Immunoassay FECAL OCCULT BLOOD TEST Lab Routine Screening for colon cancer Ordered: 11/01/2022 [facility] Work Phone: Comment on above: Ordered: 11/01/2022 Hemoglobin.gastroint estin al.lower [Presence] in Stool by Immunoassay IMMUNOCHEMICAL FECAL OCCULT BLOOD TEST Lab Routine Normocytic anemia Ordered: 11/05/2023 [facility] Work Phone: Comment on above: Ordered: 11/05/2023 Hemoglobin.gastroyanely estin al.lower [Presence] in Stool by Immunoassay IMMUNOCHEMICAL FECAL OCCULT BLOOD TEST Lab Routine Normocytic anemia Ordered: 05/19/2024 [facility] Work Phone: Comment on above: Ordered: 05/19/2024 Lactoferrin [Presenc e] in Stool by Immunoassay [facility] Leukocytes [#/volume ] in Blood [facility] Lipid 1996 panel - S donna or Plasma [facility] Magnesium measurement [facility] End: 12-01-2023 GALINA SCREENING GALINA SCREENING Radiology Routine Screening mammogram for breast cancer 1 Occurrences starting 11/01/2022 until 12/01/2023 [facility] Work Phone: Comment on above: 1 Occurrences starti ng 11/01/2022 until 12/01/2023 Mean corpuscular hemoglobin concentration determination [facility] Mean corpuscular hemoglobin determination [facility] Measurement of renal function [facility] Measurement of renal function [facility] Measurement of renal function [facility] Measurement of renal function [facility] MG Breast Screening GALINA SCREENIN G Radiology Routine Encounter for screening mammogram for breast cancer 12/12/2023 1:41 PM EDT [facility] Work Phone: Neutrophil count [facility] Neutrophil percent differential count [facility] Nucleic acid assay [facility] PAP TEST PAP TEST Lab [place] Screening for cervical cancer Encounter for gynecological examination (general) (routine) without abnormal findings Encounter for screening for human papillomavirus (HPV) 12/10/2022 2:31 PM EDT [facility] Work Phone: Patient Education [facility] Work Phone: Patient referral [facility] Work Phone: Platelets [#/volume] in Blood [facility] Potassium measurement [facility] Potassium measurement [facility] Potassium measurement [facility] Potassium measurement [facility] Red blood cell count [facility] Red cell distributio n width determination [facility] Serum chloride measurement [facility] Serum chloride measurement [facility] Serum chloride measurement [facility] Serum chloride measurement [facility] Sodium measurement [facility] Sodium measurement [facility] Sodium measurement [facility] Sodium measurement [facility] Thyroid stimulating hormone measurement [facility] Total protein measurement [facility] Troponin T.cardiac [Mass/volume] in Serum or Plasma by High sensitivity method [facility] Troponin T.cardiac [Mass/volume] in Serum or Plasma by High sensitivity method [facility] Urea nitrogen [Mass/volume] in Serum or Plasma [facility] Urea nitrogen [Mass/volume] in Serum or Plasma [facility] Urea nitrogen [Mass/volume] in Serum or Plasma [facility] Urea nitrogen [Mass/volume] in Serum or Plasma [facility] Urine culture [facility] Urine microalbumin/creatinine ratio measurement [facility] End: 12-25-2025 US Kidney - bilateral and Urinary bladder US KIDNEY/BLADDER Radiology Routine VIJAY (acute kidney injury) 1 Occurrences starting 11/25/2024 until 12/25/2025 [facility] Work Phone: Comment on above: 1 Occurrences starti ng 11/25/2024 until 12/25/2025 End: 04-02-2025 US.doppler Extremity arteries - bilateral for physiologic artery study [facility] Vascular Lab Routine Callus of foot Diminished pulses in lower extremity 1 Occurrences starting 04/02/2024 until 04/02/2025 [facility] Work Phone: Comment on above: 1 Occurrences starti ng 04/02/2024 until 04/02/2025 Vitamin D, 25-hydrox y measurement [facility] End: 08-02-2024 XR Foot - left AP and Lateral and oblique XR FOOT GENERAL 3V AP/LAT/OBL LEFT Radiology Routine Diabetic ulcer of midfoot associated with diabetes mellitus due to underlying condition, limited to breakdown of skin, unspecified laterality (HCC) 1 Occurrences starting 07/04/2023 until 08/02/2024 [facility] Work Phone: Comment on above: 1 Occurrences starti ng 07/04/2023 until 08/02/2024 End: 01-08-2025 XR Foot - left AP and Lateral and oblique XR FOOT GENERAL 3V AP/LAT/OBL LEFT Radiology Routine Diabetic ulcer of heel associated with diabetes mellitus due to underlying condition, limited to breakdown of skin, unspecified laterality (HCC) 1 Occurrences starting 12/10/2023 until 01/08/2025 [facility] Work Phone: Comment on above: 1 Occurrences starti ng 12/10/2023 until 01/08/2025 XR Foot - left AP an d Lateral and oblique XR FOOT GENERAL 3V AP/LAT/OBL LEFT Radiology Routine Diabetic ulcer of heel associated with diabetes mellitus due to underlying condition, limited to breakdown of skin, unspecified laterality (HCC) 12/10/2023 12:35 PM EDT [facility] End: 05-02-2025 XR Foot - left AP and Lateral and oblique XR FOOT GENERAL 3V AP/LAT/OBL LEFT Radiology Routine Hammertoe of left foot 1 Occurrences starting 04/02/2024 until 05/02/2025 [facility] Comment on above: 1 Occurrences starti ng 04/02/2024 until 05/02/2025 XR Foot - left AP an d Lateral and oblique XR FOOT GENERAL 3V AP/LAT/OBL LEFT Radiology Routine Hammertoe of left foot 04/02/2024 11:49 AM [facility] End: 10-01-2025 XR Foot - left AP and Lateral and oblique XR FOOT GENERAL 3V AP/LAT/OBL LEFT Radiology Routine Ulcer of toe of left foot, with fat layer exposed (HCC) 1 Occurrences starting 09/01/2024 until 10/01/2025 [facility] Work Phone: Comment on above: 1 Occurrences starti ng 09/01/2024 until 10/01/2025 XR Foot - left AP an d Lateral and oblique XR FOOT GENERAL 3V AP/LAT/OBL LEFT Radiology Routine Ulcer of toe of left foot, with fat layer exposed (HCC) 09/01/2024 2:50 PM EDT [facility] End: 10-31-2025 XR Foot - left AP and Lateral and oblique XR FOOT GENERAL 3V AP/LAT/OBL LEFT Radiology Routine Ulcer of toe of left foot, with fat layer exposed (HCC) 1 Occurrences starting 10/01/2024 until 10/31/2025 [facility] Work Phone: Comment on above: 1 Occurrences starti ng 10/01/2024 until 10/31/2025 XR Foot - left AP an d Lateral and oblique XR FOOT GENERAL 3V AP/LAT/OBL LEFT Radiology Routine Ulcer of toe of left foot, with fat layer exposed (HCC) 10/05/2024 10:13 AM EDT [facility] Work Phone: [facility] Immunizations Immunization Date Immunization Notes Care Provider Benjamin levy 02-01-2023 pneumococcal (PCV20) vaccine, 20 valent (PREVNAR 20) Erica Herman MD Work Phone: [facility] 02-01-2023 tetanus toxoid, redu luzmaria diphtheria toxoid, and acellular pertussis vaccine, adsorbed Erica Herman MD Work Phone: [facility] 02-01-2023 pneumococcal Conjuga te, unspecified formulation Erica Herman MD Work Phone: [facility] Work Phone: 01-20-2019 influenza virus vaccine, unspecified formulation Naomy Bergman APRN.[employer] Work Phone: [facility] 09-29-2007 pneumococcal polysaccharide vaccine, 23 valent Sergio Berumen III, MD Work Phone: [facility] Work Phone: Payers Date Payer Category Payer Medicare MEDICARE [id number] 2024 Medicare [id number] 2024 Self-pay [id number] 2022 Medicaid [id number] 2012 Unknown [id number] 1966 Unknown [id number] 1966 Unknown [id number] 1966 Unknown [id number] 1959 Medicaid [id number] Unknown [id number] Unknown [id number] Unknown [id number] Unknown [id number] Unknown [id number] Unknown [id number] Unknown [id number] Unknown [id number] Unknown [id number] Unknown [id number] Unknown [id number] Unknown [id number] Unknown [id number] Unknown [id number] Unknown [id number] Unknown [id number] Social History Date Type Detail Facility Start: 11-08-2020 End: 02-26-2023 Tobacco smoking status WVIS Unknown if ever smoked [facility] Start: 10-01-2018 Cigarettes [facility] Start: 1965 Sex Assigned At Female [facility] Start: 03-18-1979 End: 11-05-2023 Tobacco smoking status NHIS Smokes tobacco daily [facility] Start: 03-18-1979 History of tobacco use Cigarette Smo ker [facility] Start: 05-31-2022 End: 07-18-2022 Cigarettes smoked current (pack per day) - Reported 1 [facility] Start: 05-31-2022 End: 11-05-2023 Tobacco use and exposure Smokeless tobacco non-user [facility] Start: 06-03-2022 End: 11-24-2024 Alcohol intake Current non-drinker of alcohol (finding) [facility] Start: 1965 Sex Assigned At Not on file [facility] Start: 06-19-2022 Tobacco smoking stat us NHIS Ex-smoker [facility] Start: 03-18-1979 History of tobacco use Current smoke r [facility] Start: 07-18-2022 End: 11-01-2022 Tobacco use panel [facility] Start: 02-17-2012 National Score (1-10 0), lower number is lower risk 64 [facility] Start: 07-22-2024 End: 07-27-2024 Tobacco smoking status NHIS Current Heavy tobacco smoker [facility] Medical Equipment Procedure Code Equipment Code Equipment Origin al Text Equipment Identifier Dates [id number], [id number] Start: 03-08-2009 Comment on above: Test blood sugars tw ice daily. Test blood sugars on ce daily, 250.00, non insulin dep Blood Sugar Diagnostic (Onetouch Verio Test Strips) strip Start: 11-06-2022 Blood Sugar Diagnostic (Onetouch Verio Test Strips) strip Start: 11-06-2022 Blood Sugar Diagnostic (Onetouch Verio Test Strips) strip Start: 11-06-2022 Blood Sugar Diagnostic (Onetouch Verio Test Strips) strip Start: 11-06-2022 Blood Sugar Diagnostic (Onetouch Verio Test Strips) strip Start: 11-06-2022 Blood Sugar Diagnostic (Onetouch Verio Test Strips) strip Start: 11-06-2022 Blood Sugar Diagnostic (Onetouch Verio Test Strips) strip Start: 11-06-2022 Blood Sugar Diagnostic (Onetouch Verio Test Strips) strip Start: 11-06-2022 Blood Sugar Diagnostic (Onetouch Verio Test Strips) strip Start: 11-06-2022 Blood Sugar Diagnostic (Onetouch Verio Test Strips) strip Start: 11-06-2022 Blood Sugar Diagnostic (Onetouch Verio Test Strips) strip Start: 11-06-2022 Blood Sugar Diagnostic (Onetouch Verio Test Strips) strip Start: 11-06-2022 Blood Sugar Diagnostic (Onetouch Verio Test Strips) strip Start: 11-06-2022 Blood Sugar Diagnostic (True Metrix Glucose Test Strip) strip Start: 06-30-2024 Blood Sugar Diagnostic (Onetouch Verio Test Strips) strip Start: 11-06-2022 End: 08-19-2023 Blood Sugar Diagnostic (True Metrix Glucose Test Strip) strip Start: 08-19-2023 End: 06-30-2024 Blood Sugar Diagnostic (True Metrix Glucose Test Strip) strip Start: 06-30-2024 Pen Needle, Diabetic (1st Tier Unifine Pentips) 31 gauge x 1/4" needle Start: 07-25-2024 Blood Sugar Diagnostic (Onetouch Verio Test Strips) strip Start: 11-06-2022 End: 08-19-2023 Blood Sugar Diagnostic (True Metrix Glucose Test Strip) strip Start: 08-19-2023 End: 06-30-2024 Blood Sugar Diagnostic (True Metrix Glucose Test Strip) strip Start: 06-30-2024 Pen Needle, Diabetic (1st Tier Unifine Pentips) 31 gauge x 1/4" needle Start: 07-25-2024 Blood Sugar Diagnostic (Onetouch Verio Test Strips) strip Start: 11-06-2022 End: 08-19-2023 Blood Sugar Diagnostic (True Metrix Glucose Test Strip) strip Start: 08-19-2023 End: 06-30-2024 Blood Sugar Diagnostic (True Metrix Glucose Test Strip) strip Start: 06-30-2024 Pen Needle, Diabetic (1st Tier Unifine Pentips) 31 gauge x 1/4" needle Start: 08-28-2024 Blood Sugar Diagnostic (Onetouch Verio Test Strips) strip Start: 11-06-2022 End: 08-19-2023 Blood Sugar Diagnostic (True Metrix Glucose Test Strip) strip Start: 08-19-2023 End: 06-30-2024 Pen Needle, Diabetic (1st Tier Unifine Pentips) 31 gauge x 1/4" needle Start: 07-25-2024 End: 08-28-2024 Blood Sugar Diagnostic (True Metrix Glucose Test Strip) strip Start: 06-30-2024 Pen Needle, Diabetic (1st Tier Unifine Pentips) 31 gauge x 1/4" needle Start: 08-28-2024 Blood Sugar Diagnostic (Onetouch Verio Test Strips) strip Start: 11-06-2022 End: 08-19-2023 Blood Sugar Diagnostic (True Metrix Glucose Test Strip) strip Start: 08-19-2023 End: 06-30-2024 Pen Needle, Diabetic (1st Tier Unifine Pentips) 31 gauge x 1/4" needle Start: 07-25-2024 End: 08-28-2024 Blood Sugar Diagnostic (True Metrix Glucose Test Strip) strip Start: 11-04-2024 Pen Needle, Diabetic (1st Tier Unifine Pentips) 31 gauge x 1/4" needle Start: 08-28-2024 Blood Sugar Diagnostic (Onetouch Verio Test Strips) strip Start: 11-06-2022 End: 08-19-2023 Blood Sugar Diagnostic (True Metrix Glucose Test Strip) strip Start: 08-19-2023 End: 06-30-2024 Blood Sugar Diagnostic (True Metrix Glucose Test Strip) strip Start: 06-30-2024 End: 11-04-2024 Pen Needle, Diabetic (1st Tier Unifine Pentips) 31 gauge x 1/4" needle Start: 07-25-2024 End: 08-28-2024 Blood Sugar Diagnostic (True Metrix Glucose Test Strip) strip Start: 11-04-2024 Pen Needle, Diabetic (1st Tier Unifine Pentips) 31 gauge x 1/4" needle Start: 08-28-2024 Blood Sugar Diagnostic (Onetouch Verio Test Strips) strip Start: 11-06-2022 End: 08-19-2023 Blood Sugar Diagnostic (True Metrix Glucose Test Strip) strip Start: 08-19-2023 End: 06-30-2024 Blood Sugar Diagnostic (True Metrix Glucose Test Strip) strip Start: 06-30-2024 End: 11-04-2024 Pen Needle, Diabetic (1st Tier Unifine Pentips) 31 gauge x 1/4" needle Start: 07-25-2024 End: 08-28-2024 Goals Date Patient Goal Desired Activity /State Functional Status Date Assessment Result Facility 07-25-2024 Functional status Ambulates;Chair [facility] Work Phone: 03-01-2023 Functional status Ambulates;Beds toshia [facility] Work Phone: 02-25-2014 Are you deaf, or do you have serious difficulty hearing No 02/25/2014 8:26 AM Lam Burgos [facility] 02-25-2014 Are you blind, or do you have serious difficulty seeing, even when wearing glasses No 02/25/2014 8:26 AM Lam Burgos [facility] 02-25-2014 Do you have serious difficulty walking or climbing stairs No 02/25/2014 8:26 AM Lam Burgos [facility] 02-25-2014 Do you have difficul ty dressing or bathing No 02/25/2014 8:26 AM Lam Burgos [facility] 02-25-2014 Because of a physica l, mental, or emotional condition, do you have difficulty doing errands alone such as visiting a physician's office or shopping No 02/25/2014 8:26 AM Lam Burgos [facility] Mental Status Date Assessment Result Facility 07-25-2024 Cognitive function Voice/Name [facility] Work Phone: 07-22-2024 Cognitive function Voice/Name [facility] Work Phone: 03-01-2023 Cognitive function Appropriate;Cooperativ [facility] Work Phone: 02-28-2023 Cognitive function Arousable To Voice/Nam [facility] Work Phone: 02-25-2014 Because of a physica l, mental, or emotional condition, do you have serious difficulty concentrating, remembering, or making decisions No 02/25/2014 8:26 AM Lam Burgos [facility] Clinical Notes 05-19-2007 to 11-25-2024 Telephone Encounter - Angus Ayers LPN - 11/25/2024 4:03 PM EDTTelephone Encounter - Angus Ayers LPN - 11/25/2024 4:03 PM EDTPatient Instructions Note Date & Type Note Facility 11-25-2024 Telephone encounter Note Emmy calling from [facility] asking for copy of patients HGBA1C and latest CBC and CMP be faxed to [phone]. Printed and faxed as requested. [facility] 11-25-2024 Miscellaneous Notes Emmy calling from [facility] asking for copy of patients HGBA1C and latest CBC and CMP be faxed to [phone]. Printed and faxed as requested. documented in this encounter [facility] 11-25-2024 Note Addended by: ERICA HERMAN on: 11/25/2024 02:19 PM Modules accepted: Orders [facility] 11-25-2024 Telephone encounter Note Form faxed. Deonte Handy MA [facility] 11-25-2024 Miscellaneous Notes Form faxed. Deonte Handy MA Caroline from [facility] calling and is asking if office note, labs or testing that was done, and something that states that patient is clear for surgery can be faxed to [phone]. Please review and advise, Victoria Polanco RN documented in this encounter [facility] 11-25-2024 Miscellaneous Notes Addended by: ERICA HERMAN on: 11/25/2024 02:19 PM Modules accepted: Orders Patient informed and verbalized understanding. Deonte Handy MA Repeat blood work shows continued kidney impairment, stable anemia, Elevated WBC and platelets, and iron deficiency. Her kidney impairment should not delay her surgery, but I would recommend she see nephrology since it is persistent. She was treated with Cipro last month for UTI. I will repeat UA and renal US for further workup. Recommend low sodium diet <2,000 mg per day, avoidance of NSAIDs, and increased water intake. Will also place referral to hematology for iron deficiency anemia despite her taking iron supplement BID. Will likely need IV iron infusion. Will check FOBT to rule out GI bleed. Elevated WBC and platelets are likely caused by her chronic foot wound and inflammation. I would have her continue treatment of her wound with Dr. Otoole and notify their office immediately with symptoms of fever/chills, spreading redness, pus drainage, increased pain, or swelling. Please fax results and my office visit to Dr. Otoole' office. documented in this encounter [facility] 11-25-2024 Telephone encounter Note Patient informed and verbalized understanding. Deonte Handy MA [facility] 11-25-2024 Telephone encounter Note Scheduled with patient [facility] Work Phone: 11-25-2024 Miscellaneous Notes Scheduled with patient See telephone note 11/25/2024 "results". PSS- okay to schedule with Coby. Marjorie Ivan LPN Please review and advise CONSULT TO HEMATOLOGY/ONCOLOGY Status: Needs Scheduling Requested appt date: Authorizing: Erica Herman MD in [facility] Referral: [id number] (Authorized) Expires: 11/25/2025 Priority: Routine Diagnosis: Iron deficiency anemia, unspecified iron deficiency anemia type [D50.9] Normocytic anemia [D64.9] documented in this encounter [facility] 11-25-2024 Telephone encounter Note See telephone note 11/25/2024 "results". PSS- okay to schedule with Coby. Marjorie Ivan LPN [facility] 11-25-2024 Telephone encounter Note Please review and advise CONSULT TO HEMATOLOGY/ONCOLOGY Status: Needs Scheduling Requested appt date: Authorizing: Erica Herman MD in [facility] Referral: [id number] (Authorized) Expires: 11/25/2025 Priority: Routine Diagnosis: Iron deficiency anemia, unspecified iron deficiency anemia type [D50.9] Normocytic anemia [D64.9] [facility] 11-25-2024 Telephone encounter Note Caroline from [facility] calling and is asking if office note, labs or testing that was done, and something that states that patient is clear for surgery can be faxed to [phone]. Please review and advise, Victoria Polanco RN [facility] 11-25-2024 Telephone encounter Note Repeat blood work shows continued kidney impairment, stable anemia, Elevated WBC and platelets, and iron deficiency. Her kidney impairment should not delay her surgery, but I would recommend she see nephrology since it is persistent. She was treated with Cipro last month for UTI. I will repeat UA and renal US for further workup. Recommend low sodium diet <2,000 mg per day, avoidance of NSAIDs, and increased water intake. Will also place referral to hematology for iron deficiency anemia despite her taking iron supplement BID. Will likely need IV iron infusion. Will check FOBT to rule out GI bleed. Elevated WBC and platelets are likely caused by her chronic foot wound and inflammation. I would have her continue treatment of her wound with Dr. Otoole and notify their office immediately with symptoms of fever/chills, spreading redness, pus drainage, increased pain, or swelling. Please fax results and my office visit to Dr. Otoole' office. [facility] 11-24-2024 Instructions Erica Herman MD - 11/24/2024 2:26 PM EDT - Continue your iron supplement twice daily to help improve your anemia. - Continue lisinopril as prescribed to protect your kidneys. - Continue your diabetes insulin regimen as adjusted by Dr. Madrigal: take 8 units of long-acting insulin (Lantus) in the morning, and rapid-acting insulin (Humalog) with meals at 6 units at breakfast, 8 units at lunch, and 12 units at dinner. - Aim to drink about five bottles of water each day to help raise your blood pressure and support kidney function. - Have blood drawn today for a complete blood count, iron level check, and kidney function tests. - Your pre-op clearance is valid for the partial metatarsal resection scheduled on December 04; no additional EKG or cardiac testing is needed. documented in this encounter [facility] 11-24-2024 Note HNO ID: [id number] Author: ERICA HERMAN MD Service: ? Author Type: Physician Type: Progress Notes Filed: 11/24/2024 14:33 Note Text: Chief Complaint Patient presents with: Medical Clearance Recording using Booklr software for draft documentation of the visit was discussed with the patient/authorized practice representative; all questions welcomed and answered. Patient/authorized practice representative agreed to proceed HPI Sanjuanita eJrry is a 59 year old female who presents here today for Above Complaints. Pre-Operative Clearance: - Partial left metatarsal resection scheduled for December [address] Otoole. - Previous pre-op clearance completed on October 26, including EKG and blood work. EKG at that time was NSR. Labs showed anemia and VIJAY. Advised patient to increase iron to BID and limit sodium intake and avoid NSAIDs. Has been compliant with these recommendations. Due for repeat labs today. - No complications with anesthesia in the past. - Sanjuanita denies recent fevers, chills, chest pain, dyspnea, palpitations, or leg swelling. - Able to climb stairs without chest pain or dyspnea. (METS 5.5). - No unusual weight loss or gain. - No pain in calves when walking long distances. - Normal stress test in August of last year. Diabetes Mellitus: - Managed by Dr. Wan Madrigal. - Recent A1c improved to 7.5 from 8.2. - Insulin regimen adjusted: Lantus 8 units in the morning, Humalog 6 units with breakfast, 8 units at lunch, and 12 units at dinner. - Blood glucose levels monitored three times daily: fasting, post-dinner, and bedtime. - Morning and evening glucose readings reported as "really good"; afternoon readings variable. - No episodes of hypoglycemia reported. Anemia: - Previously noted improving anemia. - Sanjuanita is taking iron supplements twice daily. Due for repeat labs. Acute Kidney Injury: - Mild acute kidney injury noted in previous blood work. - Sanjuanita is taking Lisinopril for renal protection. Foot Ulcer: - Ulceration of the plantar aspect of the left metatarsal deemed "not salvageable." - Signs of infection related to the foot noted in previous blood work. Tobacco Use: - Sanjuanita continues to smoke cigarettes. not interested in help with cessation. Past medical history, appointments, medications, allergies reviewed. Previous Medical History PAST MEDICAL HISTORY Diagnosis Date Cataracts, bilateral s/p surgery in 2021 at [facility] Coronary artery calcification 11/[address] chest Diabetic neuropathy ([facility]) Folic acid deficiency Gas gangrene of lower extremity ([facility]) Goiter, unspecified 09/29/2007 Hypokalemia Hypomagnesemia Known medical problems rt BKA PAD (peripheral artery disease) S/P BKA (below knee amputation) ([facility]) 05/31/2022 right Tobacco use disorder Type II or unspecified type diabetes mellitus without mention of complication, uncontrolled Endo: Dr. Madrigal Previous Surgical History PAST SURGICAL HISTORY Procedure Laterality Date APPENDECTOMY HX 80s CATARACT EXTRACTION HX Bilateral 04/2022 EGD W/O BRSH SPEC VARICIES INJ 2018 with esophageal dilation LEG AMPUTATION HX Right 06/03/2022 BKA PAST SURGICAL HISTORY OF Lt thumb straightened Family History FAMILY HISTORY Problem Relation Age of Onset Stroke Mother Ischemic Heart Disease Mother Diabetes Mother Hypertension Mother Stroke Father Ischemic Heart Disease Father Hypertension Father Diabetes Father Kidney failure Sister Ischemic Heart Disease Brother Massive AR at age 38 Breast Cancer Paternal Grandmother Patient Allergies ALLERGIES No Known Allergies Current Medications Current Outpatient Medications on File Prior to Visit Medication Sig doxycycline monohydrate (MONODOX) 100 mg capsule Take 1 capsule by mouth every 12 hours. ferrous sulfate 325 mg (65 mg iron) tablet Take 1 tablet by mouth two times a day. amoxicillin-clavulanate potassium (AUGMENTIN) 875-125 mg per tablet Take 1 tablet by mouth every 12 hours. doxycycline hyclate (VIBRAMYCIN) 100 mg capsule Take 1 capsule by mouth every 12 hours. gel dressing (CARRASYN HYDROGEL WOUND DRESS) topical Apply to affected area once daily. Cholecalciferol, Vitamin D3, (VITAMIN D) 25 mcg (1,000 unit) cap Take 2 capsules by mouth once daily. Taking 2,000 units daily DEXCOM G7 SENSOR taryn as directed. LANTUS SOLOSTAR U-100 INSULIN 100 unit/mL (3 mL) Inject 15 Units subcutaneously every morning. insulin lispro (HUMALOG KWIKPEN) 100 unit/mL Inject 5 Units subcutaneously three times a day before meals. atorvastatin (LIPITOR) 40 mg tablet Take 1 tablet by mouth daily at bedtime. For cholesterol. lisinopril (ZESTRIL) 5 mg tablet Take 1 tablet by mouth once daily. Magnesium Chloride (SLOW-MAG) 71.5 mg TbEC Take 2 tablets by mouth once daily. calcium carbonate (CALTRATE) 600 mg calcium (1,500 mg) tab Take 1,200 mg by mouth once daily. aspirin, enteric coated (ASPIRIN, E (more content not included)... [facility] 11-24-2024 History of Presen t illness Narrative Chief Complaint Patient presents with: Medical Clearance Recording using Booklr software for draft documentation of the visit was discussed with the patient/authorized practice representative; all questions welcomed and answered. Patient/authorized practice representative agreed to proceed HPI Sanjuanita Jerry is a 59 year old female who presents here today for Above Complaints. Pre-Operative Clearance: - Partial left metatarsal resection scheduled for December [address] Otoole. - Previous pre-op clearance completed on October 26, including EKG and blood work. EKG at that time was NSR. Labs showed anemia and VIJAY. Advised patient to increase iron to BID and limit sodium intake and avoid NSAIDs. Has been compliant with these recommendations. Due for repeat labs today. - No complications with anesthesia in the past. - Sanjuanita denies recent fevers, chills, chest pain, dyspnea, palpitations, or leg swelling. - Able to climb stairs without chest pain or dyspnea. (METS 5.5). - No unusual weight loss or gain. - No pain in calves when walking long distances. - Normal stress test in August of last year. Diabetes Mellitus: - Managed by Dr. Wan Madrigal. - Recent A1c improved to 7.5 from 8.2. - Insulin regimen adjusted: Lantus 8 units in the morning, Humalog 6 units with breakfast, 8 units at lunch, and 12 units at dinner. - Blood glucose levels monitored three times daily: fasting, post-dinner, and bedtime. - Morning and evening glucose readings reported as "really good"; afternoon readings variable. - No episodes of hypoglycemia reported. Anemia: - Previously noted improving anemia. - Sanjuanita is taking iron supplements twice daily. Due for repeat labs. Acute Kidney Injury: - Mild acute kidney injury noted in previous blood work. - Sanjuanita is taking Lisinopril for renal protection. Foot Ulcer: - Ulceration of the plantar aspect of the left metatarsal deemed "not salvageable." - Signs of infection related to the foot noted in previous blood work. Tobacco Use: - Sanjuanita continues to smoke cigarettes. not interested in help with cessation. Past medical history, appointments, medications, allergies reviewed. Previous Medical History PAST MEDICAL HISTORY Diagnosis Date Cataracts, bilateral s/p surgery in 2021 at [facility] Coronary artery calcification 11/[address] chest Diabetic neuropathy ([facility]) Folic acid deficiency Gas gangrene of lower extremity ([facility]) Goiter, unspecified 09/29/2007 Hypokalemia Hypomagnesemia Known medical problems rt BKA PAD (peripheral artery disease) S/P BKA (below knee amputation) ([facility]) 05/31/2022 right Tobacco use disorder Type II or unspecified type diabetes mellitus without mention of complication, uncontrolled Endo: Dr. aMdrigal Previous Surgical History PAST SURGICAL HISTORY Procedure Laterality Date APPENDECTOMY HX 80s CATARACT EXTRACTION HX Bilateral 04/2022 EGD W/O BRSH SPEC VARICIES INJ 2018 with esophageal dilation LEG AMPUTATION HX Right 06/03/2022 BKA PAST SURGICAL HISTORY OF Lt thumb straightened Family History FAMILY HISTORY Problem Relation Age of Onset Stroke Mother Ischemic Heart Disease Mother Diabetes Mother Hypertension Mother Stroke Father Ischemic Heart Disease Father Hypertension Father Diabetes Father Kidney failure Sister Ischemic Heart Disease Brother Massive AR at age 38 Breast Cancer Paternal Grandmother Patient Allergies ALLERGIES No Known Allergies Current Medications Current Outpatient Medications on File Prior to Visit Medication Sig doxycycline monohydrate (MONODOX) 100 mg capsule Take 1 capsule by mouth every 12 hours. ferrous sulfate 325 mg (65 mg iron) tablet Take 1 tablet by mouth two times a day. amoxicillin-clavulanate potassium (AUGMENTIN) 875-125 mg per tablet Take 1 tablet by mouth every 12 hours. doxycycline hyclate (VIBRAMYCIN) 100 mg capsule Take 1 capsule by mouth every 12 hours. gel dressing (CARRASYN HYDROGEL WOUND DRESS) topical Apply to affected area once daily. Cholecalciferol, Vitamin D3, (VITAMIN D) 25 mcg (1,000 unit) cap Take 2 capsules by mouth once daily. Taking 2,000 units daily DEXCOM G7 SENSOR taryn as directed. LANTUS SOLOSTAR U-100 INSULIN 100 unit/mL (3 mL) Inject 15 Units subcutaneously every morning. insulin lispro (HUMALOG KWIKPEN) 100 unit/mL Inject 5 Units subcutaneously three times a day before meals. atorvastatin (LIPITOR) 40 mg tablet Take 1 tablet by mouth daily at bedtime. For cholesterol. lisinopril (ZESTRIL) 5 mg tablet Take 1 tablet by mouth once daily. Magnesium Chloride (SLOW-MAG) 71.5 mg TbEC Take 2 tablets by mouth once daily. calcium carbonate (CALTRATE) 600 mg calcium (1,500 mg) tab Take 1,200 mg by mouth once daily. aspirin, enteric coated (ASPIRIN, ENTERIC COATED) 81 mg EC tablet Take 81 mg by mouth once daily. albuterol HFA (PROVENTIL HFA, VENTOLIN HFA) 90 mcg/actuation inhaler Inhale 2 Puffs as instructed every 4 hours as needed for wheezing/shortness of breath. glipiZIDE (GLUCOTROL) 5 mg tablet Take 5 mg by mouth two times a day before meals. blood sugar diagnostic(TRUETRACK TEST STRIPS) Test blood sugars twice daily. blood-glucose meter(TRUETRACK BLOOD GLUCOSE SYSTEM KIT) Test glucose as directed blood-glucose control, low(TRUETRACK GLUCOSE SOLN) Test controls as needed LANCETS Test blood sugars once daily, 250.00, non insulin dep collagenase (SANTYL) ointment Apply to affected area once daily. APPLY TO AFFECTED AREA (Patient not taking: Reported on 11/24/2024) No current facility-administered medications on file prior to visit. Social History SOCIAL HISTORY[1] Review of Symptoms REVIEW OF SYSTEMS GENERAL: No weight loss, malaise or fevers RESPIRATORY: Negative for cough, hemoptysis, wheezing, COPD, dyspnea or shortness of breath CARDIOVASCULAR: Negative for chest pain, leg swelling, hypertension, CHF or palpitations GI: No nausea, vomiting, or diarrhea SKIN: Negative for lesions, rash, and itching EXAM: BP 100/58 Pulse 64 Ht 152.4 cm (5') Wt 41 kg (90 lb 6.4 oz) LMP 09/16/2007 SpO2 98% BMI 17.66 kg/m General Appearance: Well appearing, alert, in no acute distress, well-hydrated, well nourished.. Skin: Skin color, texture, turgor normal, no suspicious rashes or lesions. Lungs: Lungs clear to auscultation. No wheezing, rhonchi, rales.. Heart: RRR without murmur, gallop, or rubs. No ectopy. Abdomen: Normal abdominal exam, Abdomen soft, non-tender. Bowel sounds normal. No masses, organomegaly. Extremities: Right LE prosthesis. No edema or discoloration of left LE. Health Maintenance List Urine Albumin:Creatinine Ratio due on 12/04/2009 Dilated Retinal Exam due on 04/02/2010 Lung Cancer Screening due on 12/07/2023 Medicare Annual Wellness Visit Never done Influenza Vaccine(1) due on 11/16/2024 Mammogram Screening due on 12/11/2024 Hepatitis B Vaccine(1 of 3 - 19+ 3-dose series) due on 05/13/2025 Hepatitis C Screening due on 05/13/2025 HIV Screening due on 05/13/2025 Shingrix Vaccine(1 of 2) due on 05/13/2025 HbA1C due on 01/26/2025 LDL Cholesterol due on 05/13/2025 Colorectal Cancer Screening due on 05/28/2025 Diabetic Foot Exam due on 06/18/2025 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 Chronic Disease Visit due on 11/24/2025 Cervical Cancer Screening due on 12/11/2027 DTaP,Tdap,Td Vaccine(2 - Td or Tdap) due on 02/01/2033 Pneumococcal Vaccine: 50+ Completed Data reviewed Latest Ref Rng 10/26/2024 WBC 3.70 - 11.00 k/uL 12.40 (H) RBC 3.90 - 5.20 m/uL 3.11 (L) Hemoglobin 11.5 - 15.5 g/dL 8.6 (L) Hematocrit 36.0 - 46.0 % 26.7 (L) MCV 80.0 - 100.0 fL 85.9 MCH 26.0 - 34.0 pg 27.7 MCHC 30.5 - 36.0 g/dL 32.2 RDW-CV 11.5 - 15.0 % 15.5 (H) Platelet Count 150 - 400 k/uL 399 MPV 9.0 - 12.7 fL 11.3 Neut% % 71.7 Abs Neut (ANC) 1.45 - 7.50 k/uL 8.89 (H) Lymph% % 19.3 Abs Lymph 1.00 - 4.00 k/uL 2.39 Andrew% % 6.9 Abs Andrew <0.87 k/uL 0.86 Eosin% % 0.9 Abs Eosin <0.46 k/uL 0.11 Baso% % 0.8 Abs Baso <0.11 k/uL 0.10 Immature Gran % % 0.4 IMMATURE GRANS (ABS) <0.10 k/uL 0.05 NRBC /100 WBC 0.0 Absolute nRBC <0.01 k/uL <0.01 DTYPE Auto Protein, Total 6.3 - 8.0 g/dL 7.3 Albumin 3.9 - 4.9 g/dL 3.7 (L) Calcium 8.5 - 10.2 mg/dL 9.8 Bilirubin, Total 0.2 - 1.3 mg/dL <0.2 (L) Alkaline Phosphatase 34 - 123 U/L 88 AST 13 - 35 U/L 12 (L) ALT 7 - 38 U/L 13 Glucose 74 - 99 mg/dL 175 (H) BUN 7 - 21 mg/dL 33 (H) Creatinine 0.58 - 0.96 mg/dL 1.25 (H) Sodium 136 - 144 mmol/L 137 Potassium 3.7 - 5.1 mmol/L 4.2 Chloride 98 - 107 mmol/L 103 CO2 22 - 30 mmol/L 19 (L) Anion Gap 8 - 15 mmol/L 15 eGFR >=60 mL/min/1.73m 50 (L) Hemoglobin A1C 4.3 - 5.6 % 8.2 (H) Estimated Average Glucose mg/dL 189 Legend: (H) High (L) Low 1. Pre-op evaluation (Z01.818) - Partial metatarsal resection scheduled with Dr. Otoole on 12/04. - Previous pre-op risk assessment (EKG, labs) performed 38 days prior to surgery; no new symptoms or changes since last visit. - EKG from last visit showed normal sinus rhythm; stress test from August of last year was normal. - No new fevers, chills, chest pain, SOB, palpitations, or leg swelling. - No further pre-op testing indicated at this time. - Encouraged increased fluid intake (4-5 bottles of water daily) to maintain adequate hydration and avoid intraoperative hypotension. - Advised to continue current medications as prescribed. - Discussed importance of smoking cessation to optimize surgical healing. - If labs show improving anemia and VIJAY on recheck, I would have her proceed with surgery as scheduled. 2. Skin ulcer of toe of left foot with fat layer exposed (HCC) (L97.522) - Ulceration of plantar aspect of left metatarsal worsening; deemed non-salvageable. - Partial metatarsal resection scheduled for 12/04. 3. DM type 2 with diabetic peripheral neuropathy (HCC) (E11.42) - Recent improvement in glycemic control; A1c decreased from 8.2% to 7.5%. - Lantus reduced from 15 units to 8 units daily; Humalog increased to 6 units with breakfast, 8 units with lunch, and 12 units with dinner. - Blood glucose readings improved; no hypoglycemia reported. - Continue current insulin regimen as adjusted by Dr. Wan Madrigal. - Continue lisinopril for renal protection. 4. Peripheral artery disease (I73.9) - Known risk factor for delayed wound healing. - Discussed impact on surgical outcomes and importance of risk factor modification. 5. Normocytic anemia (D64.9) - Previously noted improving anemia; continue iron supplementation BID. - Order repeat CBC and iron studies to reassess status. 6. Tobacco use disorder (F17.200) - Discussed impact of smoking on wound healing and surgical outcomes; encouraged cessation. Erica Herman MD [1] Social History Tobacco Use Smoking status: Every Day Current packs/day: 0.50 Average packs/day: 0.5 packs/day for 45.7 years (22.8 ttl pk-yrs) Types: Cigarettes Start date: 03/18/1979 Smokeless tobacco: Never Vaping Use Vaping status: Never Used Substance Use Topics Alcohol use: No Drug use: No documented in this encounter [facility] 11-11-2024 Progress note Note Date/Time November 11, 2024 2:20pm [facility] [address] [place] [address] Progress Note - Wound Care 11/11/24 1417 MR#: [id number] Acct: [id number] Name: SANJUANITA JERRY Rep #:[id number] : [id number] From: Anrdiy V[facility]AS[facility] PCP: Dr. Art Herman MD Status :REG RCR Location: History of Present Illness Date of Service: 11/11/24 Chief Complaint: R BKA stump wound History of Wound: Sanjuanita Jerry is a 57 y/o female who presents to the wound healing center today for management of a right BKA stump wound. She is accompanied to the appointment today by her daughter who helps to supplement herhistory and also helps with her wound care. 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 At that time, they explored and washed out proximally in her thigh as well. Subsequently she initially had wound vac placed prior to secondary closure. She reports that the amputation site did ultimately heal fully and she was able to obtain a prosthetic. She had been doing very well withher prosthetic and getting back to work etc. Unfortunately about 1-2 months ago she developed a wound on her amputation stump due to the prosthetic rubbing in this area. She presented to the [facility] ER on 02/26/23 with concern of infection. She was admitted from 02/26-03/01 for IV antibiotics. Wound cultures were positive for staph aureus, blood cultures were negative. She was evaluated by orthopedics at that time as well. XR and CT scan performed during that admission were negative for signs of osteomyelitis. She was discharged with a course of Bactrim and referral here. At home, they have been doing daily dressing changes with iodoform and dry gauzedressing. Her daughter reports it has made significant improvement since her hospital stay. Progress of Wound: Full-thickness wound subfifth metatarsal head left foot Subjective Subjective Patient is a 59-year-old diabetic female presenting to the wound care center today for follow-up evaluation of full-thickness wound to the lateral subfifth metatarsal head of the left foot. Patient has been compliant with dressing changes. She understands the need to move forward with surgical intervention and states that she is ready move forward to remove the bone for concerns of bone infection and help heal or possibly close the full-thickness wound that hasbeen present for greater than few months. Her blood sugars well-controlled. She is decreasing her smoking. She does have history of below-knee amputation to right lower extremity. She is scared and worried that she is at risk for losing the left leg. She denies trauma. Denies constitutional symptoms. No other pedal complaints at this time. Objective Data Objective Data Vital Signs: Vital Signs Temp Pulse Resp BP 97.8 F 104 H 16 133/69 H 11/11/24 13:54 11/11/24 13:54 11/11/24 13:54 11/11/24 13:54 Lab / Micro Data Micro: Microbiology 10/08/24 10:25 Wound - Left Foot Gram Stain - Final 10/08/24 10:25 Wound - Left Foot Wound Culture - Final Meth. resistant Staph. aureus Streptococcus agalactiae (B) Physical Exam Narrative Vascular: DP and PT pulses are palpable to the left lower extremity. CFT is brisk. Skin temperature gradient is warm to warm from proximal ankles to distaldigits of the left lower extremity. No increase in focal warmth or erythema is appreciated to the left lower extremity. Blanchable erythema to the periwound. Neurological: Light touch is intact. Protective sensation is diminished. Dermatological: Evidence of full-thickness wound appreciated the subfifth metatarsal head measuring 1.5 x 1.3 x 0.3 cm. Positive probe to bone. Blanchable erythema to the periwound. Excisional debridement down to including subcutaneous tissue, fascia and muscle and bone with a number 3 mm dermal curette to the left subfifth metatarsal head ulceration without incident. Predebridement measurement was 1.3 x 1.1 x 0.2 cm. Postdebridement measurement is 1.5 x 1.3 x 0.3 cm. Musculoskeletal: Muscle strength 5 out of 5 in all quadrants to the left lower extremity. Cavus foot deformity is appreciated. Mild varus/supination deformity appreciated to the left foot when at rest. No pain on palpation to full-thickness wound left foot. Debridement Note Debridement Note Debridement Free Text: Excisional debridement down to including subcutaneous tissue, fascia and muscle and bone with a number 3 mm dermal curette to the leftsubfifth metatarsal head ulceration without incident. Predebridement measurement was 1.3 x 1.1 x 0.2 cm. Postdebridement measurement is 1.5 x 1.3 x 0.3 cm. Post-Debridement Measurements and Additional Note: Post-Debridement Measurements/Treatment WC - Nurse 1 - General Ulcer Assessment Start: 10/21/24 13:08 Freq: Status: Active Protocol: APRIL Activity Type Activity Date Activity User E-sign Co-sign Detail Recorded Client Recorded Date Recorded By Document 10/21/24 13:10 DL [id number] 10/21/24 13:15 DL Document 11/04/24 13:33 ML [id number] 11/04/24 13:36 ML Document 11/11/24 13:54 DL [id number] 11/11/24 14:02 DL 10/21/24 11/04/24 11/11/24 13:10 13:33 13:54 - Today's Visit Information Type of service Follow-up Visit Follow-up Visit Follow-up Visit (Physician/AUTO WASH BUFFER (Physician/AUTO WASH BUFFER (Physician/AUTO WASH BUFFER ) ) ) Arrival Mode Ambulatory Ambulatory Ambulatory,Cane Transfer Assistance None None None Patient Identification Verified (Name & Yes Yes Yes ) Patient Requires Transmission-Based No No No Precautions Vital Signs Temperature (97.8 F-99.1 F) 97 F L 98.0 F 97.8 F Temperature Source Temporal Temporal Temporal Pulse Rate (60-100) 106 H 102 H 104 H Pulse Location Monitor Monitor Respiratory Rate (12-18) 16 15 16 Respiratory rate source Observation Observation Observation Blood Pressure (90/60-120/80) 127/64 H 90/55 L 133/69 H Blood Pressure Mean (mm Hg) 85 66 90 Source Monitor Monitor Monitor Position Sitting Blood Pressure Location Left Arm History Since Last Visit- (Skip if this is Patient's initial visit) Have you changed medications since your No No No last visit? Any new allergies or adverse reactions No No No Had a fall/change in ADL's that may No No No increase risk of falls Signs or symptoms of abuse and/or No No No neglect since last visit Have you been in the hospital since your No No No last visit? Has dressing in place as prescribed Yes Yes Yes Has compression in place as prescribed Yes Yes N/A Has offloadiing in place as prescribed N/A N/A Yes Experienced any changes in pain level or No No management Right Footwear Surgical Shoe with pressure relief insole Pain Scale: 0-10 Numeric Is Patient Pain Free? Yes Yes Yes - Nurse 1 - General Ulcer Measurement Start: 10/21/24 13:08 Freq: Status: Active Protocol: Activity Type Activity Date Activity User E-sign Co-sign Detail Recorded Client Recorded Date Recorded By Document 10/21/24 13:10 DL [id number] 10/21/24 13:15 DL Document 11/04/24 13:33 ML [id number] 11/04/24 13:36 ML Document 11/11/24 13:54 DL [id number] 11/11/24 14:02 DL 10/21/24 11/04/24 11/11/24 13:10 13:33 13:54 Wound Center Nurse 1 #3 LT LAT FT -Current Size (cm) - Length 1.1 0.5 1.3 -Current Size (cm) - Width 1.3 0.5 0.9 -Current Size (cm) - Depth 0.2 0.3 1 -Total Square Cm 1.43 0.25 1.17 -Photo Taken Yes -Exudate Amt Small None Present Medium -Exudate Type Serosanguineous Serosanguineous Serosanguineous -Wound Margin Distinct, Distinct, Outline Outline Attached Attached -Granulation Amt Large (67-100%) None Present (0 %) -Granulation Quality Belen -Necrosis Amt Small (1-33%) Large (67-100%) -Necrotic Tissue Type Adherent Slough Adherent Slough Adherent Slough -Structure Exposed N/A Bone -Texture (Edwina-wound Skin Appearance) Scarring Assessed Callus,Scarring -Moisture (Edwina-wound Skin Appearance) No Abnormality Dry/Scaly -Color (Edwina-wound Skin Appearance) No Abnormality Assessed Hemosiderin Staining -Temperature (Edwina-wound Skin No Abnormality No Abnormality No Abnormality Appearance) (Pt Warm) (Pt Warm) (Pt Warm) -Tenderness on Palpation (Edwina-wound No Skin Appearance) -Ulcer Cleansing Rinsed/ Soap and Water Soap and Water Irrigated with Saline -Foul Odor after Cleansing No No No -Anesthetic Used 5% Lidocaine 5% Lidocaine 5% Lidocaine Gel Gel Gel -Wound Comment(s) Started ATB as Tapping bone ordered. WC - Nurse 2 - General Ulcer CM Notes Start: 10/21/24 13:08 Freq: Status: Active Protocol: Activity Type Activity Date Activity User E-sign Co-sign Detail Recorded Client Recorded Date Recorded By Document 10/21/24 13:29 JF [id number] 10/21/24 13:30 JF Document 11/04/24 14:10 DS [id number] 11/04/24 14:13 DS Document 11/11/24 14:06 JF [id number] 11/11/24 14:14 JF 10/21/24 11/04/24 11/11/24 13:29 14:10 14:06 Wound Center Nurse 2 #3 LT LAT FT -Time 13:29 14:10 14:07 -Correct Patient Yes Yes Yes -Correct Side, Site, Position Yes Yes Yes -Correct Procedure Yes Yes Yes -Procedure Performed Yes Yes Yes -Type of Procedure Debridement Debridement Debridement -Clinical Debridement Bone Bone Bone -Tissue Removed Non-viable Muscle,Fascia Non-viable tissue tissue -Post Debridement (cm) - Length 1.5 1.3 1.5 -Post Debridement (cm) - Width 1.2 1.2 1.3 -Post Debridement (cm) - Depth 0.5 0.6 0.3 -Total Square (Post) (cm) 1.80 1.56 1.95 -Area of Debridement (cm) - Length 1.5 1.3 1.5 -Area of Debridement (cm) - Width 1.2 1.2 1.3 -Total Square (Area) (cm) 1.80 1.56 1.95 -Tunneling No No No -Undermining/Tunneling No No No -Circular Undermining No No No -Wound/Ulcer Outcome Not Healed Not Healed Not Healed -Ulcer Cleansing Rinsed/ Rinsed/ Rinsed/ Irrigated with Irrigated with Irrigated with Saline Saline Saline -Foul Odor after Cleansing No No No -Bioengineered Tissue No No No -Bleeding Controlled with Pressure Pressure Pressure -Treatment Response Procedure Procedure Procedure Tolerated Well Tolerated Well Tolerated Well -Offloading Yes Yes -Type of Offloading Surgical Shoe Surgical Shoe -Debridement - Bone, 1st 20sq cm Yes Yes Yes Pain Scale: 0-10 Numeric Is Patient Pain Free? Yes Yes Yes WC - Nurse 3 - General Ulcer D/C NN Start: 10/21/24 13:08 Freq: Status: Active Protocol: Activity Type Activity Date Activity User E-sign Co-sign Detail Recorded Client Recorded Date Recorded By Document 10/21/24 13:38 ML [id number] 10/21/24 13:39 ML Document 11/04/24 14:42 ML [id number] 11/04/24 14:43 ML 10/21/24 11/04/24 13:38 14:42 Wound Care Center Nurse 3 #3 LT LAT FT -Ulcer Cleansing Rinsed/ Rinsed/ Irrigated with Irrigated with Saline Saline -Other Dressing betadine soaked BETADINE SWAB gauze -Primary Dressing Covered/Secured with Dry Gauze & Dry Gauze, Roll Gauze, Secured with Secured with Tape Tape Pain Scale: 0-10 Numeric Is Patient Pain Free? Yes Yes Assessment/Plan Assessment/Plan (1) Non-pressure chronic ulcer of other part of left foot with necrosis of bone: CODE(S): L97.524 - Non-pressure chronic ulcer of other part of left foot with necrosis of bone PLAN: Patient was examined and evaluated. All findings were discussed with the patient. All questions were answered to the patient's satisfaction. Excisional debridement down to including subcutaneous tissue, fascia and muscle and bone with a number 3 mm dermal curette to the left subfifth metatarsal head ulceration without incident. Predebridement measurement was 1.3 x 1.1 x 0.2 cm. Postdebridement measurement is 1.5 x 1.3 x 0.3 cm. The area was flushed and wiped clean and patted dry. Culture was taken and sent off to microbiology for culture and sensitivity. The patient will be placed on doxycycline 100 mg twicedaily due to concern for mild cellulitis to the left foot. The area was dressedwith Betadine soaked gauze dry sterile dressing compression wrap. Patient to perform daily dressing changes. I educated patient that when she follows up again in 1 week if she is worse she will be admitted to the hospital and we will perform surgery faster as an inpatient then as an outpatient on 12/04/2024. Chart reviewed consent signed. All risk and benefits were discussed with patient great detail. We move forward with incision bone cortex, possible delayed primary closure versus skin graft substitute to the left foot full-thickness wound. Patient will follow-up in Dr. Otoole in 1 week (2) Chronic painful diabetic polyneuropathy: CODE(S): E11.42 - Type 2 diabetes mellitus with diabetic polyneuropathy 11/11/24 1420 <Electronically signed by Andriy Otoole DPM> Cosigner Signature (if applicable): CC: ~ Signed [facility] Work Phone: [phone] Progress note [facility] [address] [place] [address] Progress Note - Wound Care 11/11/24 1417 MR#: [id number] Acct: [id number] Name: SANJUANITA JERRY Rep #:[id number] : 1965 59 From: Andriy VELASCO PCP: Dr. Art Herman MD Status :REG RCR Location: History of Present Illness Date of Service: 11/11/24 Chief Complaint: R BKA stump wound History of Wound: Sanjuanita Jerry is a 57 y/o female who presents to the wound healing center today for management of a right BKA stump wound. She is accompanied to the appointment today by her daughter who helps to supplement herhistory and also helps with her wound care. 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 At that time, they explored and washed out proximally in her thigh as well. Subsequently she initially had wound vac placed prior to secondary closure. She reports that the amputation site did ultimately heal fully and she was able to obtain a prosthetic. She had been doing very well withher prosthetic and getting back to work etc. Unfortunately about 1-2 months ago she developed a wound on her amputation stump due to the prosthetic rubbing in this area. She presented to the [facility] ER on 02/26/23 with concern of infection. She was admitted from 02/26-03/01 for IV antibiotics. Wound cultures were positive for staph aureus, blood cultures were negative. She was evaluated by orthopedics at that time as well. XR and CT scan performed during that admissionwere negative for signs of osteomyelitis. She was discharged with a course of Bactrim and referral here. At home, they have been doing daily dressing changes with iodoform and dry gauzedressing. Her daughter reports it has made significant improvement since her hospital stay. Progress of Wound: Full-thickness wound subfifth metatarsal head left foot Subjective Subjective Patient is a 59-year-old diabetic female presenting to the wound care center today for follow-up evaluation of full-thickness wound to the lateral subfifth metatarsal head of the left foot. Patient has been compliant with dressing changes. She understands the need to move forward with surgical intervention and states that she is ready move forward to remove the bone for concerns of bone infectionand help heal or possibly close the full-thickness wound that hasbeen present for greater than few months. Her blood sugars well-controlled. She is decreasing her smoking. She does have history of below-knee amputation to right lower extremity. She is scared and worried that she is at risk for losing the left leg. She denies trauma. Denies constitutional symptoms. No other pedal complaints at this time. Objective Data Objective Data Vital Signs: Vital Signs Temp Pulse Resp BP 97.8 F 104 H 16 133/69 H 11/11/24 13:54 11/11/24 13:54 11/11/24 13:54 11/11/24 13:54 Lab / Micro Data Micro: Microbiology 10/08/24 10:25 Wound - Left Foot Gram Stain - Final 10/08/24 10:25 Wound - Left Foot Wound Culture - Final Meth. resistant Staph. aureus Streptococcus agalactiae (B) Physical Exam Narrative Vascular: DP and PT pulses are palpable to the left lower extremity. CFT is brisk. Skin temperaturegradient is warm to warm from proximal ankles to distaldigits of the left lower extremity. No increase in focal warmth or erythema is appreciated to the left lower extremity. Blanchable erythema to the periwound. Neurological: Light touch is intact. Protective sensation is diminished. Dermatological: Evidence of full-thickness wound appreciated the subfifth metatarsal head measuring1.5 x 1.3 x 0.3 cm. Positive probe to bone. Blanchable erythema to the periwound. Excisional debridement down to including subcutaneous tissue, fascia and muscle and bone with a number 3 mm dermal curette to the left subfifth metatarsal head ulceration without incident. Predebridement measurement was 1.3 x 1.1 x 0.2 cm. Postdebridement measurement is 1.5 x 1.3 x 0.3 cm. Musculoskeletal: Muscle strength 5 out of 5 in all quadrants to the left lower extremity. Cavus foot deformity is appreciated. Mild varus/supination deformity appreciated to the left foot when at rest. No pain on palpation to full- thickness wound left foot. Debridement Note Debridement Note Debridement Free Text: Excisional debridement down to including subcutaneous tissue, fascia and muscle and bone with a number 3 mm dermal curette to the leftsubfifth metatarsal head ulceration without incident. Predebridement measurement was 1.3 x 1.1 x 0.2 cm. Postdebridement measurement is 1.5 x 1.3 x 0.3 cm. Post-Debridement Measurements and Additional Note: Post-Debridement Measurements/Treatment WC - Nurse 1 - General Ulcer Assessment Start: 10/21/24 13:08 Freq: Status: Active Protocol: [email or web address].[email or web address] Activity Type Activity Date Activity User E-sign Co-sign Detail Recorded Client Recorded Date Recorded By Document 10/21/24 13:10 DL [id number] 10/21/24 13:15 DL Document 11/04/24 13:33 ML [id number] 11/04/24 13:36 ML Document 11/11/24 13:54 DL [id number] 11/11/24 14:02 DL 10/21/24 11/04/24 11/11/24 13:10 13:33 13:54 WC - Today's Visit Information Type of service Follow-up Visit Follow-up Visit Follow-up Visit (Physician/AUTO WASH BUFFER (Physician/AUTO WASH BUFFER (Physician/AUTO WASH BUFFER ) ) ) Arrival Mode Ambulatory Ambulatory Ambulatory,Cane Transfer Assistance None None None Patient Identification Verified (Name & Yes Yes Yes ) Patient Requires Transmission-Based No No No Precautions Vital Signs Temperature (97.8 F-99.1 F) 97 F L 98.0 F 97.8 F Temperature Source Temporal Temporal Temporal Pulse Rate (60-100) 106 H 102 H 104 H Pulse Location Monitor Monitor Respiratory Rate (12-18) 16 15 16 Respiratory rate source Observation Observation Observation Blood Pressure (90/60-120/80) 127/64 H 90/55 L 133/69 H Blood Pressure Mean (mm Hg) 85 66 90 Source Monitor Monitor Monitor Position Sitting Blood Pressure Location Left Arm History Since Last Visit- (Skip if this is Patient's initial visit) Have you changed medications since your No No No last visit? Any new allergies or adverse reactions No No No Had a fall/change in ADL's that may No No No increase risk of falls Signs or symptoms of abuse and/or No No No neglect since last visit Have you been in the hospital since your No No No last visit? Has dressing in place as prescribed Yes Yes Yes Has compression in place as prescribed Yes Yes N/A Has offloadiing in place as prescribed N/A N/A Yes Experienced any changes in pain level or No No management Right Footwear Surgical Shoe with pressure relief insole Pain Scale: 0-10 Numeric Is Patient Pain Free? Yes Yes Yes WC - Nurse 1 - General Ulcer Measurement Start: 10/21/24 13:08 Freq: Status: Active Protocol: Activity Type Activity Date Activity User E-sign Co-sign Detail Recorded Client Recorded Date Recorded By Document 10/21/24 13:10 DL [id number] 10/21/24 13:15 DL Document 11/04/24 13:33 ML [id number] 11/04/24 13:36 ML Document 11/11/24 13:54 DL [id number] 11/11/24 14:02 DL 10/21/24 11/04/24 11/11/24 13:10 13:33 13:54 Wound Center Nurse 1 #3 LT LAT FT -Current Size (cm) - Length 1.1 0.5 1.3 -Current Size (cm) - Width 1.3 0.5 0.9 -Current Size (cm) - Depth 0.2 0.3 1 -Total Square Cm 1.43 0.25 1.17 -Photo Taken Yes -Exudate Amt Small None Present Medium -Exudate Type Serosanguineous Serosanguineous Serosanguineous -Wound Margin Distinct, Distinct, Outline Outline Attached Attached -Granulation Amt Large (67-100%) None Present (0 %) -Granulation Quality Belen -Necrosis Amt Small (1-33%) Large (67-100%) -Necrotic Tissue Type Adherent Slough Adherent Slough Adherent Slough -Structure Exposed N/A Bone -Texture (Edwina-wound Skin Appearance) Scarring Assessed Callus,Scarring -Moisture (Edwina-wound Skin Appearance) No Abnormality Dry/Scaly -Color (Edwina-wound Skin Appearance) No Abnormality Assessed Hemosiderin Staining -Temperature (Edwina-wound Skin No Abnormality No Abnormality No Abnormality Appearance) (Pt Warm) (Pt Warm) (Pt Warm) -Tenderness on Palpation (Edwina-wound No Skin Appearance) -Ulcer Cleansing Rinsed/ Soap and Water Soap and Water Irrigated with Saline -Foul Odor after Cleansing No No No -Anesthetic Used 5% Lidocaine 5% Lidocaine 5% Lidocaine Gel Gel Gel -Wound Comment(s) Started ATB as Tapping bone ordered. WC - Nurse 2 - General Ulcer CM Notes Start: 10/21/24 13:08 Freq: Status: Active Protocol: Activity Type Activity Date Activity User E-sign Co-sign Detail Recorded Client Recorded Date Recorded By Document 10/21/24 13:29 [id number] 10/21/24 13:30 Document 11/04/24 14:10 DS [id number] 11/04/24 14:13 DS Document 11/11/24 14:06 [id number] 11/11/24 14:14 10/21/24 11/04/24 11/11/24 13:29 14:10 14:06 Wound Center Nurse 2 #3 LT LAT FT -Time 13:29 14:10 14:07 -Correct Patient Yes Yes Yes -Correct Side, Site, Position Yes Yes Yes -Correct Procedure Yes Yes Yes -Procedure Performed Yes Yes Yes -Type of Procedure Debridement Debridement Debridement -Clinical Debridement Bone Bone Bone -Tissue Removed Non-viable Muscle,Fascia Non-viable tissue tissue -Post Debridement (cm) - Length 1.5 1.3 1.5 -Post Debridement (cm) - Width 1.2 1.2 1.3 -Post Debridement (cm) - Depth 0.5 0.6 0.3 -Total Square (Post) (cm) 1.80 1.56 1.95 -Area of Debridement (cm) - Length 1.5 1.3 1.5 -Area of Debridement (cm) - Width 1.2 1.2 1.3 -Total Square (Area) (cm) 1.80 1.56 1.95 -Tunneling No No No -Undermining/Tunneling No No No -Circular Undermining No No No -Wound/Ulcer Outcome Not Healed Not Healed Not Healed -Ulcer Cleansing Rinsed/ Rinsed/ Rinsed/ Irrigated with Irrigated with Irrigated with Saline Saline Saline -Foul Odor after Cleansing No No No -Bioengineered Tissue No No No -Bleeding Controlled with Pressure Pressure Pressure -Treatment Response Procedure Procedure Procedure Tolerated Well Tolerated Well Tolerated Well -Offloading Yes Yes -Type of Offloading Surgical Shoe Surgical Shoe -Debridement - Bone, 1st 20sq cm Yes Yes Yes Pain Scale: 0-10 Numeric Is Patient Pain Free? Yes Yes Yes WC - Nurse 3 - General Ulcer D/C NN Start: 10/21/24 13:08 Freq: Status: Active Protocol: Activity Type Activity Date Activity User E-sign Co-sign Detail Recorded Client Recorded Date Recorded By Document 10/21/24 13:38 ML [id number] 10/21/24 13:39 ML Document 11/04/24 14:42 ML [id number] 11/04/24 14:43 ML 10/21/24 11/04/24 13:38 14:42 Wound Care Center Nurse 3 #3 LT LAT FT -Ulcer Cleansing Rinsed/ Rinsed/ Irrigated with Irrigated with Saline Saline -Other Dressing betadine soaked BETADINE SWAB gauze -Primary Dressing Covered/Secured with Dry Gauze & Dry Gauze, Roll Gauze, Secured with Secured with Tape Tape Pain Scale: 0-10 Numeric Is Patient Pain Free? Yes Yes Assessment/Plan Assessment/Plan (1) Non-pressure chronic ulcer of other part of left foot with necrosis of bone: CODE(S): L97.524 - Non-pressure chronic ulcer of other part of left foot with necrosis of bone PLAN: Patient was examined and evaluated. All findings were discussed with the patient. All questions were answered to the patient's satisfaction. Excisional debridement down to including subcutaneous tissue, fascia and muscle and bone with a number 3 mm dermal curette to the left subfifth metatarsal head ulceration without incident. Predebridement measurement was 1.3 x 1.1 x 0.2 cm. Postdebridement measurement is 1.5 x 1.3 x 0.3 cm. The areawas flushed and wiped clean and patted dry. Culture was taken and sent off to microbiology for cultu re and sensitivity. The patient will be placed on doxycycline 100 mg twicedaily due to concern for mild cellulitis to the left foot. The area was dressedwith Betadine soaked gauze dry sterile dressing compression wrap. Patient to perform daily dressing changes. I educated patient that when she follows up again in 1 week if she is worse she will be admitted [facility] and we will perform surgery faster as an inpatient then as an outpatient on 12/04/2024. Chart reviewed consent signed. All risk and benefits were discussed with patient great detail. We move forward with incision bone cortex, possible delayed primary closure versus skin graft substituteto the left foot full-thickness wound. Patient will follow-up in Dr. Otoole in 1 week (2) Chronic painful diabetic polyneuropathy: CODE(S): E11.42 - Type 2 diabetes mellitus with diabetic polyneuropathy 11/11/24 1420 Cosigner Signature (if applicable): CC: ~ Signed [facility]08-20-2025 Progress note Author Andriy Otoole [facility] Note Date/Time November 04, 2024 2: [facility] [address] [place] [address] Progress Note - Wound Care 11/04/24 1429 MR#: [id number] Acct: [id number] Name: SANJUANITA JERRY Rep #:[id number] : 1965 59 From: Andriy Gee PM PCP: Dr. Art Herman MD Status :REG RCR Location: History of Present Illness Date of Service: 11/04/24 Chief Complaint: R BKA stump wound History of Wound: Sanjuanita Jerry is a 57 y/o female who presents to the wound healing center today for management of a right BKA stump wound. She is accompanied to the appointment today by her daughter who helps to supplement herhistory and also helps with her wound care. 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 At that time, they explored and washed out proximally in her thigh as well. Subsequently she initially had wound vac placed prior to secondary closure. She reports that the amputation site did ultimately heal fully and she was able to obtain a prosthetic. She had been doing very well withher prosthetic and getting back to work etc. Unfortunately about 1-2 months ago she developed a wound on her amputation stump due to the prosthetic rubbing in this area. She presented to the [facility] ER on 02/26/23 with concern of infection. She was admitted from 02/26-03/01 for IV antibiotics. Wound cultures were positive for staph aureus, blood cultures were negative. She was evaluated by orthopedics at that time as well. XR and CT scan performed during that admission were negative for signs of osteomyelitis. She was discharged with a course of Bactrim and referral here. At home, they have been doing daily dressing changes with iodoform and dry gauzedressing. Her daughter reports it has made significant improvement since her hospital stay. Progress of Wound: Full-thickness wound subfifth metatarsal head left foot Subjective Subjective Patient is a 59-year-old diabetic female presented to wound care center today for follow-up evaluation of full-thickness wound to the subfifth metatarsal headto the left lower extremity. Patient has been compliant with dressing changes and applied Betadine paint sterile gauze to the left lower extremity. She admits that her blood sugar has improved and her last A1c was 7.5%. She has decreased her smoking but still smokes. She understands need to move forward with surgery and is planning to have surgery on December 04 at [facility]. She denies any trauma. She does have history of below-kneeamputation to the right lower extremity. Denies constitutional symptoms. No other pedal complaints at this time. Objective Data Objective Data Vital Signs: Vital Signs Temp Pulse Resp BP 98.0 F 102 H 15 90/55 L 11/04/24 13:33 11/04/24 13:33 11/04/24 13:33 11/04/24 13:33 Lab / Micro Data Micro: Microbiology 10/08/24 10:25 Wound - Left Foot Gram Stain - Final 10/08/24 10:25 Wound - Left Foot Wound Culture - Final Meth. resistant Staph. aureus Streptococcus agalactiae (B) Physical Exam Narrative Vascular: DP and PT pulses are palpable to the left lower extremity. CFT is brisk. Skin temperature gradient is warm to warm from proximal ankles to distaldigits of the left lower extremity. No increase in focal warmth or erythema is appreciated to the left lower extremity. Neurological: Light touch is intact. Protective sensation is diminished. Dermatological: Evidence of full-thickness wound appreciated the subfifth metatarsal head measuring 1.3 x 1.2 x 0.6 cm. Positive probe to bone. Excisional debridement down to including subcutaneous tissue, fascia and muscle and bone with a number 3 mm dermal curette to the left subfifth metatarsal head ulceration without incident. Predebridement measurement was 1.1 x 0.9 x 0.2 cm. Postdebridement measurement is 1.3 x 1.2 x 0.6 cm. Musculoskeletal: Muscle strength 5 out of 5 in all quadrants to the left lower extremity. Cavus foot deformity is appreciated. Mild varus/supination deformity appreciated to the left foot when at rest. No pain on palpation to full- thickness wound left foot. Debridement Note Debridement Note Debridement Free Text: Excisional debridement down to including subcutaneous tissue, fascia and muscle and bone with a number 3 mm dermal curette to the leftsubfifth metatarsal head ulceration without incident. Predebridement measurement was 1.1 x 0.9 x 0.2 cm. Postdebridement measurement is 1.3 x 1.2 x 0.6 cm. Post-Debridement Measurements and Additional Note: Post-Debridement Measurements/Treatment WC - Nurse 1 - General Ulcer Assessment Start: 10/21/24 13:08 Freq: Status: Active Protocol: APRIL Activity Type Activity Date Activity User E-sign Co-sign Detail Recorded Client Recorded Date Recorded By Document 10/21/24 13:10 DL [id number] 10/21/24 13:15 DL Document 11/04/24 13:33 ML [id number] 11/04/24 13:36 ML 10/21/24 11/04/24 13:10 13:33 WC - Today's Visit Information Type of service Follow-up Visit Follow-up Visit (Physician/AUTO WASH BUFFER (Physician/AUTO WASH BUFFER ) ) Arrival Mode Ambulatory Ambulatory Transfer Assistance None None Patient Identification Verified (Name & Yes Yes ) Patient Requires Transmission-Based No No Precautions Vital Signs Temperature (97.8 F-99.1 F) 97 F L 98.0 F Temperature Source Temporal Temporal Pulse Rate (60-100) 106 H 102 H Pulse Location Monitor Respiratory Rate (12-18) 16 15 Respiratory rate source Observation Observation Blood Pressure (90/60-120/80) 127/64 H 90/55 L Blood Pressure Mean (mm Hg) 85 66 Source Monitor Monitor Position Sitting Blood Pressure Location Left Arm History Since Last Visit- (Skip if this is Patient's initial visit) Have you changed medications since your No No last visit? Any new allergies or adverse reactions No No Had a fall/change in ADL's that may No No increase risk of falls Signs or symptoms of abuse and/or No No neglect since last visit Have you been in the hospital since your No No last visit? Has dressing in place as prescribed Yes Yes Has compression in place as prescribed Yes Yes Has offloadiing in place as prescribed N/A N/A Experienced any changes in pain level or No No management Pain Scale: 0-10 Numeric Is Patient Pain Free? Yes Yes - Nurse 1 - General Ulcer Measurement Start: 10/21/24 13:08 Freq: Status: Active Protocol: Activity Type Activity Date Activity User E-sign Co-sign Detail Recorded Client Recorded Date Recorded By Document 10/21/24 13:10 DL [id number] 10/21/24 13:15 DL Document 11/04/24 13:33 ML [id number] 11/04/24 13:36 ML 10/21/24 11/04/24 13:10 13:33 Wound Center Nurse 1 #3 LT LAT FT -Current Size (cm) - Length 1.1 0.5 -Current Size (cm) - Width 1.3 0.5 -Current Size (cm) - Depth 0.2 0.3 -Total Square Cm 1.43 0.25 -Exudate Amt Small None Present -Exudate Type Serosanguineous Serosanguineous -Wound Margin Distinct, Outline Attached -Granulation Amt Large (67-100%) -Granulation Quality Belen -Necrosis Amt Small (1-33%) -Necrotic Tissue Type Adherent Slough Adherent Slough -Structure Exposed N/A -Texture (Edwina-wound Skin Appearance) Scarring Assessed -Moisture (Edwina-wound Skin Appearance) No Abnormality -Color (Edwina-wound Skin Appearance) No Abnormality Assessed -Temperature (Edwina-wound Skin No Abnormality No Abnormality Appearance) (Pt Warm) (Pt Warm) -Tenderness on Palpation (Edwina-wound No Skin Appearance) -Ulcer Cleansing Rinsed/ Soap and Water Irrigated with Saline -Foul Odor after Cleansing No No -Anesthetic Used 5% Lidocaine 5% Lidocaine Gel Gel -Wound Comment(s) Started ATB as ordered. WC - Nurse 2 - General Ulcer CM Notes Start: 10/21/24 13:08 Freq: Status: Active Protocol: Activity Type Activity Date Activity User E-sign Co-sign Detail Recorded Client Recorded Date Recorded By Document 10/21/24 13:29 JF [id number] 10/21/24 13:30 JF Document 11/04/24 14:10 DS [id number] 11/04/24 14:13 DS 10/21/24 11/04/24 13:29 14:10 Wound Center Nurse 2 #3 LT LAT FT -Time 13:29 14:10 -Correct Patient Yes Yes -Correct Side, Site, Position Yes Yes -Correct Procedure Yes Yes -Procedure Performed Yes Yes -Type of Procedure Debridement Debridement -Clinical Debridement Bone Bone -Tissue Removed Non-viable Muscle,Fascia tissue -Post Debridement (cm) - Length 1.5 1.3 -Post Debridement (cm) - Width 1.2 1.2 -Post Debridement (cm) - Depth 0.5 0.6 -Total Square (Post) (cm) 1.80 1.56 -Area of Debridement (cm) - Length 1.5 1.3 -Area of Debridement (cm) - Width 1.2 1.2 -Total Square (Area) (cm) 1.80 1.56 -Tunneling No No -Undermining/Tunneling No No -Circular Undermining No No -Wound/Ulcer Outcome Not Healed Not Healed -Ulcer Cleansing Rinsed/ Rinsed/ Irrigated with Irrigated with Saline Saline -Foul Odor after Cleansing No No -Bioengineered Tissue No No -Bleeding Controlled with Pressure Pressure -Treatment Response Procedure Procedure Tolerated Well Tolerated Well -Offloading Yes -Type of Offloading Surgical Shoe -Debridement - Bone, 1st 20sq cm Yes Yes Pain Scale: 0-10 Numeric Is Patient Pain Free? Yes Yes WC - Nurse 3 - General Ulcer D/C NN Start: 10/21/24 13:08 Freq: Status: Active Protocol: Activity Type Activity Date Activity User E-sign Co-sign Detail Recorded Client Recorded Date Recorded By Document 10/21/24 13:38 ML [id number] 10/21/24 13:39 ML 10/21/24 13:38 Wound Care Center Nurse 3 #3 LT LAT FT -Ulcer Cleansing Rinsed/ Irrigated with Saline -Other Dressing betadine soaked gauze -Primary Dressing Covered/Secured with Dry Gauze & Roll Gauze, Secured with Tape Pain Scale: 0-10 Numeric Is Patient Pain Free? Yes Assessment/Plan Assessment/Plan (1) Non-pressure chronic ulcer of other part of left foot with necrosis of bone: CODE(S): L97.524 - Non-pressure chronic ulcer of other part of left foot with necrosis of bone PLAN: Patient was examined and evaluated. All findings were discussed with the patient. All questions were answered to the patient's satisfaction. Excisional debridement down to including subcutaneous tissue, fascia and muscle and bone with a number 3 mm dermal curette to the left subfifth metatarsal head ulceration without incident. Predebridement measurement was 1.1 x 0.9 x 0.2 cm. Postdebridement measurement is 1.3 x 1.2 x 0.6 cm. The left foot was wiped clean and patted dry. Betadine paint dry sterile dressing followed by compression wrap was donned to the left lower extremity. Patient is now understanding the need to move forward with surgery and will be following up with her primary care for medical clearance. Plan will be either minimally invasive or complete removal of the metatarsal head. This will be based on if the full-thickness wound heals by the time surgery comes around which she was understanding of. Patient will continue daily dressing changes and continue strict blood sugar control. Patient educated on smoking cessation. Patient will follow-up in Dr. Otoole in 1 week (2) Chronic painful diabetic polyneuropathy: CODE(S): E11.42 - Type 2 diabetes mellitus with diabetic polyneuropathy 11/04/24 1432 <Electronically signed by Andriy Otoole DPKe> Cosigner Signature (if applicable): CC: ~ Signed [facility] Work Phone: 1(418) 813-260808-20-2025 Progress note [facility] [address] [place] [id number] Progress Note - Wound Care 11/04/24 1429 MR#: [id number] Acct: [id number] Name: SANJUANITA JERRY Rep #:[id number] : 1965 59 From: Andriy Gee PM PCP: Dr. Art Herman MD Status :REG RCR Location: History of Present Illness Date of Service: 11/04/24 Chief Complaint: R BKA stump wound History of Wound: Sanjuanita Jerry is a 57 y/o female who presents to the wound healing center today for management of a right BKA stump wound. She is accompanied to the appointment today by her daughter who helps to supplement herhistory and also helps with her wound care. 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 At that time, they explored and washed out proximally in her thigh as well. Subsequently she initially had wound vac placed prior to secondary closure. She reports that the amputation site did ultimately heal fully and she was able to obtain a prosthetic. She had been doing very well withher prosthetic and getting back to work etc. Unfortunately about 1-2 months ago she developed a wound on her amputation stump due to the prosthetic rubbing in this area. She presented to the [facility] ER on 02/26/23 with concern of infection. She was admitted from 02/26-03/01 for IV antibiotics. Wound cultures were positive for staph aureus, blood cultures were negative. She was evaluated by orthopedics at that time as well. XR and CT scan performed during that admissionwere negative for signs of osteomyelitis. She was discharged with a course of Bactrim and referral here. At home, they have been doing daily dressing changes with iodoform and dry gauzedressing. Her daughter reports it has made significant improvement since her hospital stay. Progress of Wound: Full-thickness wound subfifth metatarsal head left foot Subjective Subjective Patient is a 59-year-old diabetic female presented to wound care center today for follow-up evaluation of full-thickness wound to the subfifth metatarsal headto the left lower extremity. Patient has been compliant with dressing changes and applied Betadine paint sterile gauze to the left lower extremity. She admits that her blood sugar has improved and her last A1c was 7.5%. She has decreased hersmoking but still smokes. She understands need to move forward with surgery and is planning to havesurgery on December 04 at [facility]. She denies any trauma. She does have historyof below-kneeamputation to the right lower extremity. Denies constitutional symptoms. No other pedal complaints at this time. Objective Data Objective Data Vital Signs: Vital Signs Temp Pulse Resp BP 98.0 F 102 H 15 90/55 L 11/04/24 13:33 11/04/24 13:33 11/04/24 13:33 11/04/24 13:33 Lab / Micro Data Micro: Microbiology 10/08/24 10:25 Wound - Left Foot Gram Stain - Final 10/08/24 10:25 Wound - Left Foot Wound Culture - Final Meth. resistant Staph. aureus Streptococcus agalactiae (B) Physical Exam Narrative Vascular: DP and PT pulses are palpable to the left lower extremity. CFT is brisk. Skin temperaturegradient is warm to warm from proximal ankles to distaldigits of the left lower extremity. No increase in focal warmth or erythema is appreciated to the left lower extremity. Neurological: Light touch is intact. Protective sensation is diminished. Dermatological: Evidence of full-thickness wound appreciated the subfifth metatarsal head measuring1.3 x 1.2 x 0.6 cm. Positive probe to bone. Excisional debridement down to including subcutaneous tissue, fascia and muscle and bone with a number 3 mm dermal curette to the left subfifth metatarsal head ulceration without incident. Predebridement measurement was 1.1 x 0.9 x 0.2 cm. Postdebridement measurement is 1.3 x 1.2 x 0.6 cm. Musculoskeletal: Muscle strength 5 out of 5 in all quadrants to the left lower extremity. Cavus foot deformity is appreciated. Mild varus/supination deformity appreciated to the left foot when at rest. No pain on palpation to full- thickness wound left foot. Debridement Note Debridement Note Debridement Free Text: Excisional debridement down to including subcutaneous tissue, fascia and muscle and bone with a number 3 mm dermal curette to the leftsubfifth metatarsal head ulceration without incident. Predebridement measurement was 1.1 x 0.9 x 0.2 cm. Postdebridement measurement is 1.3 x 1.2 x 0.6 cm. Post-Debridement Measurements and Additional Note: Post-Debridement Measurements/Treatment - Nurse 1 - General Ulcer Assessment Start: 10/21/24 13:08 Freq: Status: Active Protocol: WC.LOWJOSE ANTONIO Activity Type Activity Date Activity User E-sign Co-sign Detail Recorded Client Recorded Date Recorded By Document 10/21/24 13:10 DL [id number] 10/21/24 13:15 DL Document 11/04/24 13:33 ML [id number] 11/04/24 13:36 ML 10/21/24 11/04/24 13:10 13:33 - Today's Visit Information Type of service Follow-up Visit Follow-up Visit (Physician/AUTO WASH BUFFER (Physician/AUTO WASH BUFFER ) ) Arrival Mode Ambulatory Ambulatory Transfer Assistance None None Patient Identification Verified (Name & Yes Yes ) Patient Requires Transmission-Based No No Precautions Vital Signs Temperature (97.8 F-99.1 F) 97 F L 98.0 F Temperature Source Temporal Temporal Pulse Rate (60-100) 106 H 102 H Pulse Location Monitor Respiratory Rate (12-18) 16 15 Respiratory rate source Observation Observation Blood Pressure (90/60-120/80) 127/64 H 90/55 L Blood Pressure Mean (mm Hg) 85 66 Source Monitor Monitor Position Sitting Blood Pressure Location Left Arm History Since Last Visit- (Skip if this is Patient's initial visit) Have you changed medications since your No No last visit? Any new allergies or adverse reactions No No Had a fall/change in ADL's that may No No increase risk of falls Signs or symptoms of abuse and/or No No neglect since last visit Have you been in the hospital since your No No last visit? Has dressing in place as prescribed Yes Yes Has compression in place as prescribed Yes Yes Has offloadiing in place as prescribed N/A N/A Experienced any changes in pain level or No No management Pain Scale: 0-10 Numeric Is Patient Pain Free? Yes Yes SUE - Nurse 1 - General Ulcer Measurement Start: 10/21/24 13:08 Freq: Status: Active Protocol: Activity Type Activity Date Activity User E-sign Co-sign Detail Recorded Client Recorded Date Recorded By Document 10/21/24 13:10 DL [id number] 10/21/24 13:15 DL Document 11/04/24 13:33 ML [id number] 11/04/24 13:36 ML 10/21/24 11/04/24 13:10 13:33 Wound Center Nurse 1 #3 LT LAT FT -Current Size (cm) - Length 1.1 0.5 -Current Size (cm) - Width 1.3 0.5 -Current Size (cm) - Depth 0.2 0.3 -Total Square Cm 1.43 0.25 -Exudate Amt Small None Present -Exudate Type Serosanguineous Serosanguineous -Wound Margin Distinct, Outline Attached -Granulation Amt Large (67-100%) -Granulation Quality Belen -Necrosis Amt Small (1-33%) -Necrotic Tissue Type Adherent Slough Adherent Slough -Structure Exposed N/A -Texture (Edwina-wound Skin Appearance) Scarring Assessed -Moisture (Edwina-wound Skin Appearance) No Abnormality -Color (Edwina-wound Skin Appearance) No Abnormality Assessed -Temperature (Edwina-wound Skin No Abnormality No Abnormality Appearance) (Pt Warm) (Pt Warm) -Tenderness on Palpation (Edwina-wound No Skin Appearance) -Ulcer Cleansing Rinsed/ Soap and Water Irrigated with Saline -Foul Odor after Cleansing No No -Anesthetic Used 5% Lidocaine 5% Lidocaine Gel Gel -Wound Comment(s) Started ATB as ordered. SUE - Nurse 2 - General Ulcer CM Notes Start: 10/21/24 13:08 Freq: Status: Active Protocol: Activity Type Activity Date Activity User E-sign Co-sign Detail Recorded Client Recorded Date Recorded By Document 10/21/24 13:29 JF [id number] 10/21/24 13:30 JF Document 11/04/24 14:10 DS [id number] 11/04/24 14:13 DS 10/21/24 11/04/24 13:29 14:10 Wound Center Nurse 2 #3 LT LAT FT -Time 13:29 14:10 -Correct Patient Yes Yes -Correct Side, Site, Position Yes Yes -Correct Procedure Yes Yes -Procedure Performed Yes Yes -Type of Procedure Debridement Debridement -Clinical Debridement Bone Bone -Tissue Removed Non-viable Muscle,Fascia tissue -Post Debridement (cm) - Length 1.5 1.3 -Post Debridement (cm) - Width 1.2 1.2 -Post Debridement (cm) - Depth 0.5 0.6 -Total Square (Post) (cm) 1.80 1.56 -Area of Debridement (cm) - Length 1.5 1.3 -Area of Debridement (cm) - Width 1.2 1.2 -Total Square (Area) (cm) 1.80 1.56 -Tunneling No No -Undermining/Tunneling No No -Circular Undermining No No -Wound/Ulcer Outcome Not Healed Not Healed -Ulcer Cleansing Rinsed/ Rinsed/ Irrigated with Irrigated with Saline Saline -Foul Odor after Cleansing No No -Bioengineered Tissue No No -Bleeding Controlled with Pressure Pressure -Treatment Response Procedure Procedure Tolerated Well Tolerated Well -Offloading Yes -Type of Offloading Surgical Shoe -Debridement - Bone, 1st 20sq cm Yes Yes Pain Scale: 0-10 Numeric Is Patient Pain Free? Yes Yes - Nurse 3 - General Ulcer D/C NN Start: 10/21/24 13:08 Freq: Status: Active Protocol: Activity Type Activity Date Activity User E-sign Co-sign Detail Recorded Client Recorded Date Recorded By Document 10/21/24 13:38 ML [id number] 10/21/24 13:39 ML 10/21/24 13:38 Wound Care Center Nurse 3 #3 LT LAT FT -Ulcer Cleansing Rinsed/ Irrigated with Saline -Other Dressing betadine soaked gauze -Primary Dressing Covered/Secured with Dry Gauze & Roll Gauze, Secured with Tape Pain Scale: 0-10 Numeric Is Patient Pain Free? Yes Assessment/Plan Assessment/Plan (1) Non-pressure chronic ulcer of other part of left foot with necrosis of bone: CODE(S): L97.524 - Non-pressure chronic ulcer of other part of left foot with necrosis of bone PLAN: Patient was examined and evaluated. All findings were discussed with the patient. All questions were answered to the patient's satisfaction. Excisional debridement down to including subcutaneous tissue, fascia and muscle and bone with a number 3 mm dermal curette to the left subfifth metatarsal head ulceration without incident. Predebridement measurement was 1.1 x 0.9 x 0.2 cm. Postdebridement measurement is 1.3 x 1.2 x 0.6 cm. The leftfoot was wiped clean and patted dry. Betadine paint dry sterile dressing followed by compression wrap was donned to the left lower extremity. Patient is now understanding the need to move forward with surgery and will be following up with her primary care for medical clearance. Plan will be either minimally invasive or complete removal of the metatarsal head. This will be based on if the full-thickness wound heals by the time surgery comes around which she was understanding of. Patient will continue daily dressing changes and continue strict blood sugar control. Patient educated on smoking cessation. Patient will follow-up in Dr. Otoole in 1 week (2) Chronic painful diabetic polyneuropathy: CODE(S): E11.42 - Type 2 diabetes mellitus with diabetic polyneuropathy 11/04/24 1432 Cosign Signature (if applicable): CC: ~ Signed [facility]08-20-2025 [facility] [address] [place] [address] OFFICE VISIT Date of Service: 11/04/24 MR#: [id number] Acct: [id number] Name: SANJUANITA JERRY Rep #: [id number] : 1965 Provider: SINA Sharif Age/Sex: 59/F Location: [email or web address] Status: Signed Intake Vital Signs 08/26/24 10:55 10/07/24 14:33 11/04/24 11:45 Height 4 ft 11.5 in 4 ft 11 in 4 ft 11 in Weight: 96 lb BMI 19.3 BP 92/56 L Blood Pressure Location Lt brachial Position Sitting Pulse 108 H Pulse Source Monitor Pulse Oximetry (%) 92 Oxygen Delivery Method room air Intake Visit Reasons: 2 M FU Chief Complaint: f/u diabetes Cook Helper Required: No Accompanied by: Daughter Is patient in pain?: No Allergies No Known Allergies Allergy (Verified 08/26/24 10:57) Medications ?Medication ?Instructions ?Recorded ?Confirmed ?Type albuterol sulfate 90 mcg/actuation 2 puff inhalation Q 4H PRN Sob &/Or 10/01/18 11/04/24 History aerosol inhaler Wheezing atorvastatin 40 mg tablet 40 mg PO QHS cholesterol 03/0911/04/24 History cholecalciferol (vitamin D3) 25 25 mcg PO DAILY supple ment 02/26/23 11/04/24 History mcg (1,000 unit) tablet blood-glucose meter (True Metrix #1 ea 08/19/23 Rx Glucose Meter) insulin glargine 100 unit/mL (3 20 unit (0.2 mL) subcu t DAILY #15 07/25/24 11/04/24 Rx mL) subcutaneous pen (Lantus mL Solostar U-100 Insulin) insulin lispro 100 unit/mL 5 unit (0.05 mL) subcut TID AC #15 07/25/24 11/04/24 Rx subcutaneous pen (Humalog KwikPen mL (U-100) Insulin) lisinopril 10 mg tablet 10 mg PO DAILY #30 tabs 05/11/04/24 Rx loperamide 2 mg capsule 2 mg PO Q8 #0 caps 07/25/24 11/04/24 Rx blood-glucose sensor (Dexcom G7 #3 ea 08/06/24 5 Rx Sensor device) pen needle, diabetic 31 gauge x #100 ea 08/28/2411/04 Rx 1/4" (1st Tier Unifine Pentips) folic acid 1 mg tablet 1 mg PO DAILY 10/07/2411/04 History True Metrix Glucose Test Strip #50 ea 11/04/24 5 Rx (blood sugar diagnostic) ferrous sulfate 325 mg (65 mg 325 mg PO BID supplement 11/04/24 11/04/24 History iron) tablet (FeroSul) PFSH Medical History MRSA (methicillin resistant staph aureus) culture positive Anemia Smoker Cellulitis and abscess of right lower extremity Type 2 diabetes mellitus with hyperglycemia, without long-term current use of insulin Sinus tachycardia seen on traffic monitor specialist Below knee amputation Dysphagia Acid reflux Diabetes Surgical History History of appendectomy Status post below knee amputation of right lower extremity history EGD with dilatation S/P appendectomy H/O thumb surgery Family History Grandmother Breast cancer Father Heart disease Hypertension Sister Thyroid disorder Aunt Thyroid disorder Other Arthritis CVA (cerebral vascular accident) Kidney disease Myocardial infarction Social History household members: family Smoking Status: Heavy Smoker (>10/day) alcohol intake: never substance use type: does not use what type of physical activity do you participate in: walking HPI HPI Chief Complaint: f/u diabetes Details: SANJUANITA JERRY, is a 59 F who presents to the office today for evaluation and management of diabetes. A1C with PCP on 10/26/24 was 8.2%, improved significantly from 07/22/24 at 13.7%. Weight is stable. Currently taking Lantus 12 u once daily and Humalog 5-7-8. Dexcom downloaded and reviewed- blood sugars decline during sleeping hours, she is having post mealelevations. She denies any significant episode of hypoglycemia that has required assistance from others. She is currently seeing the wound center for a non healing wound to left lateralfoot, reports plan is to pursue surgery. BP controlled. Currently taking lisinopril 5 mg once daily. She takes a daily statin. Vitamin D low normal. She has significant osteoporosis and refuses treatment. Labs are up to date. Denies any acute concerns. ROS Const Constitutional: Positive for fatigue and weight change (loss) ENT ENT: No dizziness/vertigo Cardio Cardiology: No chest pain at rest, chest pain with exertion, shortness of breathor palpitations Musc Musculoskeletal: Positive for joint pain Psych Psychiatric: Positive for anxiety, Positive for depression, No Thoughts of harming yourself/Others and No suicidal ideation Gastro GI: Positive for heartburn Skin Skin: No wounds Endo Endocrine: Positive for fatigue and weight change (loss) Exam Const General: cooperative, comfortable, no acute distress and ill appearing chronically Nutritional Appearance: thin Orientation: alert, awake and oriented x3 HENMT Head: normal to inspection Ears: hearing grossly normal bilaterally Nose: external nose normal Face and sinus: normal facial exam Eyes General: appearance normal, both eyes and all related structures Alignment and Position: alignment normal Sclera: sclerae normal Neck Neck: normal visual inspection Chest Chest palpation & inspection: normal inspection of the chest Resp Effort & Inspection: normal respiratory effort, able to speak in complete sentences, symmetric chest movement, normal respiratory pattern, no audible wheezes and no cough Auscultation: Bilateral: Clear to Auscultation Cardio Rate: tachycardic Rhythm: regular rhythm Heart Sounds: S1 normal and S2 normal GI Inspection: normal to inspection Skin Wounds: wounds noted Neuro General: patient alert, patient awake and patient oriented x3 Cognition: normal cognition Speech: speech normal Gait: normal gait Extrem General: normal to inspection and no pedal edema Psych Appearance: grossly normal Mental Status: mental status grossly normal Mood: congruent mood Affect: normal affect Speech and Movement: speech and movement normal Attitude: cooperative Thought Process: normal Thought Content: normal Judgment: judgment good Assessment and Plan Assessment and Plan (1) Diabetes: Status: Chronic Qualifiers: Diabetes mellitus complication detail: with microalbuminuria Diabetes mellitus complication status:with kidney complications Diabetes mellitus jail insulin use: without 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 Longitudinal care provided. G2211. I reviewed with the patient the risk of developing and worsening of diabetes complications including retinopathy, neuropathy, nephropathy, heart attack, stroke, amputation, and sudden . Diabetes education provided. A1C NOT at goal: <7.5%. CGM tracings reviewed in detail with patient. Reduce Lantus to 8 u once daily. Humalog 08-24-11. CGM: she is checking blood sugar 4x/day, she is taking 4 subq insulin injections/day, she is using blood sugar reading to titrate insulin dose, she isat risk of hypoglycemia. Notify office of persistently high/low blood sugars. Reviewed most recent labs with PCP. Follow up in 3 months. (2) Hypertension: Status: Chronic Qualifiers: Hypertension type: unspecified Qualified Code(s): I10 - Essential (primary) hypertension Plan: Chronic- controlled. Continue lisinopril 5 mg once daily. Avoid dietary sodium. Will continue to monitor. (3) Osteoporosis: Status: Chronic Qualifiers: Osteoporosis type: other Presence of current pathological fracture: without current pathological fracture Qualified Code(s): M81.8 - Other osteoporosis without current pathological fracture Plan: Chronic- poorly controlled. She continues to decline further treatment. Emphasized importance of adequate vitamin D, low weight bearing exercises, and fall prevention. (4) Vitamin D deficiency: Status: Chronic Plan: Chronic- borderline control. Increase vitamin D3 to 3,000 iu once daily. Reviewed importance of adequate vitamin D. I have spent [27] minutes today reviewing labs, records and history. Time includes coordinating care, interpretation of tests, discussion with patient's other health care providers via telephone. This also includes time I spent with the patient for exam, treatment plan and education as well as documenting clinical information. Medications: Refilled True Metrix Glucose Test Strip (blood sugar diagnostic) daily 50 ea 8RF NS E11.29 - Type 2 diabetesmellitus with other diabetic kidney complication, R80.9 - Proteinuria, unspecified Plan Details Follow Up: 3 Months Coding Level of Care Code Off vis,est,level 3 Extra Time Spent Extra Time Spent Extra Time Spent: G2211 Diagnoses Type 2 diabetes mellitus with microalbuminuria, without long-term current use of insulin E11.29; R80.9 Diabetes mellitus complication detail: with microalbuminuria Diabetes mellitus complication status: with kidney complications Diabetes mellitus safety pin assembling machine operator insulin use: without safety pin assembling machine operator use Diabetes mellitus type: type 2 Hypertension, unspecified type I10 Hypertension type: unspecified Other osteoporosis without current pathological fracture M81.8 Osteoporosis type: other Presence of current pathological fracture: without current pathological fracture Vitamin D deficiency E55.9 Additional Codes Extra Time Spent - Extra Time Spent: G2211 (G2211) 11/04/24 1259 n INDUSTRIAL GAS FITTER HELPER-C> Date _ Millie Sharif INDUSTRIAL GAS FITTER HELPER-C Cosigner Signature: Date (if applicable) CC: Dr. Art Herman MD ~ [facility]08-20-2025 Progress note Author Millie Kole [facility] Services Note Date/Time November 04, 2024 12 :59pm [facility] [address] [place] [address] OFFICE VISIT Date of Service: 11/04/24 MR#: [id number] Acct: [id number] Name: SANJUANITA JERRY Rep #: [id number] : 1965 Provider: SINA Sharif Age/Sex: 59/F Location: [facility] [place] Status: Signed Intake Vital Signs 08/26/24 10:55 10/07/24 14:33 11/04/24 11:45 Height 4 ft 11.5 in 4 ft 11 in 4 ft 11 in Weight: 96 lb BMI 19.3 BP 92/56 L Blood Pressure Location Lt brachial Position Sitting Pulse 108 H Pulse Source Monitor Pulse Oximetry (%) 92 Oxygen Delivery Method room air Intake Visit Reasons: 2 M FU Chief Complaint: f/u diabetes Cook Helper Required: No Accompanied by: Daughter Is patient in pain?: No Allergies No Known Allergies Allergy (Verified 08/26/24 10:57) Medications ?Medication ?Instructions ?Recorded ?Confirmed ?Type albuterol sulfate 90 mcg/actuation 2 puff inhalation Q 4H PRN Sob &/Or 10/01/18 11/04/24 History aerosol inhaler Wheezing atorvastatin 40 mg tablet 40 mg PO QHS cholesterol 03/0911/04/24 History cholecalciferol (vitamin D3) 25 25 mcg PO DAILY supple ment 02/26/23 11/04/24 History mcg (1,000 unit) tablet blood-glucose meter (True Metrix #1 ea 08/19/23 Rx Glucose Meter) insulin glargine 100 unit/mL (3 20 unit (0.2 mL) subcu t DAILY #15 05/10/25 08/20/25 Rx mL) subcutaneous pen (Lantus mL Solostar U-100 Insulin) insulin lispro 100 unit/mL 5 unit (0.05 mL) subcut TID AC #15 07/25/24 11/04/24 Rx subcutaneous pen (Humalog KwikPen mL (U-100) Insulin) lisinopril 10 mg tablet 10 mg PO DAILY #30 tabs 05/11/04/24 Rx loperamide 2 mg capsule 2 mg PO Q8 #0 caps 07/25/24 11/04/24 Rx blood-glucose sensor (Dexcom G7 #3 ea 08/06/24 5 Rx Sensor device) pen needle, diabetic 31 gauge x #100 ea 08/28/2411/04 Rx 1/4" (1st Tier Unifine Pentips) folic acid 1 mg tablet 1 mg PO DAILY 10/07/2411/04 History True Metrix Glucose Test Strip #50 ea 11/04/24 5 Rx (blood sugar diagnostic) ferrous sulfate 325 mg (65 mg 325 mg PO BID supplement 11/04/24 11/04/24 History iron) tablet (FeroSul) [facility] Medical History MRSA (methicillin resistant staph aureus) culture positive Anemia Smoker Cellulitis and abscess of right lower extremity Type 2 diabetes mellitus with hyperglycemia, without long-term current use of insulin Sinus tachycardia seen on traffic monitor specialist Below knee amputation Dysphagia Acid reflux Diabetes Surgical History History of appendectomy Status post below knee amputation of right lower extremity history EGD with dilatation S/P appendectomy H/O thumb surgery Family History Grandmother Breast cancer Father Heart disease Hypertension Sister Thyroid disorder Aunt Thyroid disorder Other Arthritis CVA (cerebral vascular accident) Kidney disease Myocardial infarction Social History household members: family Smoking Status: Heavy Smoker (>10/day) alcohol intake: never substance use type: does not use what type of physical activity do you participate in: walking HPI HPI Chief Complaint: f/u diabetes Details: SANJUANITA JERRY, is a 59 F who presents to the office today for evaluation and management of diabetes. A1C with PCP on 10/26/24 was 8.2%, improved significantly from 07/22/24 at 13.7%. Weight is stable. Currently taking Lantus 12 u once daily and Humalog 5-7-8. Dexcom downloaded and reviewed- blood sugars decline during sleeping hours, she is having post meal elevations. She denies any significant episode of hypoglycemia that has required assistance from others. She is currently seeing the wound center for a non healing wound to left lateralfoot, reports plan is to pursue surgery. BP controlled. Currently taking lisinopril 5 mg once daily. She takes a daily statin. Vitamin D low normal. She has significant osteoporosis and refuses treatment. Labs are up to date. Denies any acute concerns. ROS Const Constitutional: Positive for fatigue and weight change (loss) ENT ENT: No dizziness/vertigo Cardio Cardiology: No chest pain at rest, chest pain with exertion, shortness of breathor palpitations Musc Musculoskeletal: Positive for joint pain Psych Psychiatric: Positive for anxiety, Positive for depression, No Thoughts of harming yourself/Others and No suicidal ideation Gastro GI: Positive for heartburn Skin Skin: No wounds Endo Endocrine: Positive for fatigue and weight change (loss) Exam Const General: cooperative, comfortable, no acute distress and ill appearing chronically Nutritional Appearance: thin Orientation: alert, awake and oriented x3 HENMT Head: normal to inspection Ears: hearing grossly normal bilaterally Nose: external nose normal Face and sinus: normal facial exam Eyes General: appearance normal, both eyes and all related structures Alignment and Position: alignment normal Sclera: sclerae normal Neck Neck: normal visual inspection Chest Chest palpation & inspection: normal inspection of the chest Resp Effort & Inspection: normal respiratory effort, able to speak in complete sentences, symmetric chest movement, normal respiratory pattern, no audible wheezes and no cough Auscultation: Bilateral: Clear to Auscultation Cardio Rate: tachycardic Rhythm: regular rhythm Heart Sounds: S1 normal and S2 normal GI Inspection: normal to inspection Skin Wounds: wounds noted Neuro General: patient alert, patient awake and patient oriented x3 Cognition: normal cognition Speech: speech normal Gait: normal gait Extrem General: normal to inspection and no pedal edema Psych Appearance: grossly normal Mental Status: mental status grossly normal Mood: congruent mood Affect: normal affect Speech and Movement: speech and movement normal Attitude: cooperative Thought Process: normal Thought Content: normal Judgment: judgment good Assessment and Plan Assessment and Plan (1) Diabetes: Status: Chronic Qualifiers: Diabetes mellitus complication detail: with microalbuminuria Diabetes mellitus complication status: with kidney complications Diabetes mellitus jail insulin use: without jail use Diabetes mellitus type: type 2 Qualified Code(s): E11.29 - Type 2 diabetes mellitus with other diabetic kidney complication; R80.9 - Proteinuria, unspecified Plan: Chronic- poorly controlled. Longitudinal care provided. G2211. I reviewed with the patient the risk of developing and worsening of diabetes complications including retinopathy, neuropathy, nephropathy, heart attack, stroke, amputation, and sudden . Diabetes education provided. A1C NOT at goal: <7.5%. CGM tracings reviewed in detail with patient. Reduce Lantus to 8 u once daily. Humalog 08-24-11. CGM: she is checking blood sugar 4x/day, she is taking 4 subq insulin injections/day, she is using blood sugar reading to titrate insulin dose, she isat risk of hypoglycemia. Notify office of persistently high/low blood sugars. Reviewed most recent labs with PCP. Follow up in 3 months. (2) Hypertension: Status: Chronic Qualifiers: Hypertension type: unspecified Qualified Code(s): I10 - Essential (primary) hypertension Plan: Chronic- controlled. Continue lisinopril 5 mg once daily. Avoid dietary sodium. Will continue to monitor. (3) Osteoporosis: Status: Chronic Qualifiers: Osteoporosis type: other Presence of current pathological fracture: without current pathological fracture Qualified Code(s): M81.8 - Other osteoporosis without current pathological fracture Plan: Chronic- poorly controlled. She continues to decline further treatment. Emphasized importance of adequate vitamin D, low weight bearing exercises, and fall prevention. (4) Vitamin D deficiency: Status: Chronic Plan: Chronic- borderline control. Increase vitamin D3 to 3,000 iu once daily. Reviewed importance of adequate vitamin D. I have spent [27] minutes today reviewing labs, records and history. Time includes coordinating care, interpretation of tests, discussion with patient's other health care providers via telephone. This also includes time I spent with the patient for exam, treatment plan and education as well as documenting clinical information. 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 Art Herman MD ~ [facility] Work Phone: [phone]) 343-732308-16-2025 Telephone encounter Note* Telephone Encounter - Deonte Handy MA - 10/31/2024 11:20 AM EDT Patient informed. Deonte Handy MA [facility]08-16-2025 Miscellaneous Notes* Telephone Encounter - Deonte Handy MA - 10/31/2024 11:20 AM EDT Patient informed. Deonte Handy MA * Telephone Encounter - Deonte Handy MA - 10/31/2024 11:17 AM EDT ----- Message from Erica Herman MD sent at 10/31/2024 10:08 AM EDT ----- Urine culture positive for proteus infection. Rx sent for macrobid x 5 days while awaiting sensitivities. Push PO fluids to help clear infection. Will call with further results. ----- Message ----- From: Lab, Background User Sent: 10/29/2024 7:55 PM EDT To: Erica Herman MD * Telephone Encounter - Erica Herman MD - 10/31/2024 11:11 AM EDT Urine culture sensitivities are back. Resistant to macrobid. Rx sent for cipro for 3 days instead. Hold iron, calcium, and magnesium supplement while on the Cipro. Push PO fluids. Call with symptoms of UTI after completing 3 day course. [facility] Telephone encounter Note * Telephone Encounter - Deonte Handy MA - 10/31/2024 11:17 AM EDT ----- Message from Erica Herman MD sent at 10/31/2024 10:08 AM EDT ----- Urine culture positive for proteus infection. Rx sent for macrobid x 5 days while awaiting sensitivities. Push PO fluids to help clear infection. Will call with further results. ----- Message ----- From: Lab, Background User Sent: 10/29/2024 7:55 PM EDT To: Erica Herman MD [facility]08-16-2025 Telephone encounter Note* Telephone Encounter - Erica Herman MD - 10/31/2024 11:11 AM EDT Urine culture sensitivities are back. Resistant to macrobid. Rx sent for cipro for 3 days instead. Hold iron, calcium, and magnesium supplement while on the Cipro. Push PO fluids. Call with symptoms of UTI after completing 3 day course. [facility]08-13-2025 Telephone encounter Note* Telephone Encounter - Deonte Handy MA - 10/28/2024 2:18 PM EDT Patient informed and verbalized understanding. Deonte Handy MA [facility]08-13-2025 Miscellaneous Notes* Telephone Encounter - Deonte Handy MA - 10/28/2024 2:18 PM EDT Patient informed and verbalized understanding. Deonte Handy MA * Telephone Encounter - Deonte Handy MA - 10/28/2024 2:10 PM EDT ----- Message from Erica Herman MD sent at 10/28/2024 7:57 AM EDT ----- Bloodwork shows slowly improving anemia with signs of infection related to her left foot, mild acute kidney impairment/injury, and uncontrolled but improving diabetes with A1c down to 8.2. For her anemia, I would have her increase her iron supplement to twice daily and recheck labs in 1 month. For kidney impairment I will order UA and culture to be obtained this week. Recommend low sodium diet <2,000 mg per day, avoidance of NSAIDs, and increased water intake. Recheck labs in 1 month. F/u with endocrinology regarding her diabetes. Her surgeon will make the determination if she is able to go through with the procedure based on her A1c. Her other labs would not stop her from going ahead with the surgery. ----- Message ----- From: Lab, Background User Sent: 10/26/2024 7:24 PM EDT To: Erica Herman MD documented in this encounter[facility] Telephone encounter Note * Telephone Encounter - Deonte Handy MA - 10/28/2024 2:10 PM EDT ----- Message from Erica Herman MD sent at 10/28/2024 7:57 AM EDT ----- Bloodwork shows slowly improving anemia with signs of infection related to her left foot, mild acute kidney impairment/injury, and uncontrolled but improving diabetes with A1c down to 8.2. For her anemia, I would have her increase her iron supplement to twice daily and recheck labs in 1 month. For kidney impairment I will order UA and culture to be obtained this week. Recommend low sodium diet <2,000 mg per day, avoidance of NSAIDs, and increased water intake. Recheck labs in 1 month. F/u with endocrinology regarding her diabetes. Her surgeon will make the determination if she is able to go through with the procedure based on her A1c. Her other labs would not stop her from going ahead with the surgery. ----- Message ----- From: Lab, Background User Sent: 10/26/2024 7:24 PM EDT To: Erica Herman MD [facility]08-11-2025 Instructions* Patient Instructions* Erica Herman MD - 10/26/2024 2:38 PM EDT - Blood was drawn today to check your blood counts, kidney function, and A1c; expect a call tomorrow with your results. - Your A1c result may affect surgery timing; if it remains high, your surgeon may delay the procedure until your blood sugars are better controlled. - Continue taking Augmentin as prescribed for your foot wound infection. - Continue your diabetes regimen: Lantus 15 units each morning, Humalog 5 units before each meal, and glipizide; follow your low-carb diet. - Check your blood sugar by fingerstick before each meal and at bedtime; record your readings. - Aim for a fasting blood sugar below 130 mg/dL and two-hour post-meal levels below 180 mg/dL. - Drink at least 5 to 6 glasses of water daily to stay hydrated and help maintain your blood pressure. - Keep your endocrinology appointment with Millie Sharif on the for A1c review. - Keep your wound center visit with Dr. Otoole on the to plan your foot surgery. - Keep your appointment with Sarah on the ; we ll adjust it if your surgery date is confirmed. - If you decide you want support to quit smoking, let us know; stopping smoking can improve healing. documented in this encounter[facility]25 NoteHNO ID: [id number] Author: ERICA HERMAN MD Service: ? Author Type: Physician Type: Progress Notes Filed: 10/26/2024 14:54 Note Text: Chief Complaint Patient presents with: Medical Clearance Recording using [employer] software for draft documentation of the visit was discussed with the patient/authorized practice representative; all questions welcomed and answered. Patient/authorized practice representative agreed to proceed HPI Sanjuanita Jerry is a 59 year old female who presents here today for Above Complaints.. Preoperative Evaluation: - Scheduled for partial metatarsal resection of the left foot on the of this month. - Referred to Dr. Otoole at the wound center by Dr. Long for a second opinion on a left foot ulcer. - Ulceration of the plantar aspect of the left metatarsal was increasing in size; Dr. Otoole determined it was not salvageable. - High arch and abnormal gait contributing to ulceration; surgery aims to alleviate pressure on the affected area. - No known complications with anesthesia in the past; has undergone cataract surgery and leg amputation. - No recent fevers, chest pain, palpitations, dyspnea, or edema. - No unusual weight gain or claudication. - Able to climb stairs without chest pain or dyspnea (5.5 METS). - No recent nausea, emesis, diarrhea, or other rashes. - Last stress test in August 2023 was normal. - Recent EKG performed today was normal. - Concerns about clearance due to previous delay in cataract surgery from high blood sugar levels. Diabetes Mellitus: - Managed by Millie Sharif and Dr. Wan Madrigal with upcoming OV on 11/04. - Last A1c on July 22 was 13.7. - Fingerstick blood glucose levels averaging 180 mg/dL with her Dexcom. - Current medications: Lantus 15 units every morning, Humalog 5 units TID before meals, and glipizide. - Following a low-carb diet. - Dexcom sensor malfunctioning; using fingerstick glucose monitoring before meals and at bedtime. Hypotension: BP low today. - No home blood pressure monitoring. - Denies nausea, vomiting, lightheadedness or dizziness. Peripheral Artery Disease: - History of PAD. - Smoking half a pack of cigarettes per day; not interested in smoking cessation assistance. Past medical history, appointments, medications, allergies reviewed. Previous Medical History Past Medical History: No date: Cataracts, bilateral Comment: s/p surgery in 2021 at [facility] 11/2022: Coronary artery calcification Comment: On CT chest No date: Diabetic neuropathy (HCC) No date: Folic acid deficiency No date: Gas gangrene of lower extremity (HCC) 09/29/2007: Goiter, unspecified No date: Hypokalemia No date: Hypomagnesemia No date: Known medical problems Comment: rt BKA No date: PAD (peripheral artery disease) 05/31/2022: S/P BKA (below knee amputation) (HCC) Comment: right No date: Tobacco use disorder No date: Type II or unspecified type diabetes mellitus without mention of complication, uncontrolled Comment: Endo: Dr. Madrigal Previous Surgical History PAST SURGICAL HISTORY Procedure Laterality Date APPENDECTOMY HX 80s CATARACT EXTRACTION HX Bilateral 04/2022 EGD W/O BRSH SPEC VARICIES INJ 2018 with esophageal dilation LEG AMPUTATION HX Right 06/03/2022 BKA PAST SURGICAL HISTORY OF Lt thumb straightened Family History FAMILY HISTORY[1] Patient Allergies ALLERGIES[2] Current Medications Meds Previous to this Encounter[3] Social History SOCIAL HISTORY[4] Review of Symptoms REVIEW OF SYSTEMS GENERAL: No weight loss, malaise or fevers RESPIRATORY: Negative for cough, hemoptysis, wheezing, COPD, dyspnea or shortness of breath CARDIOVASCULAR: Negative for chest pain, leg swelling, hypertension, CHF or palpitations GI: No nausea, vomiting, or diarrhea SKIN: See HPI EXAM: BP 102/52 Pulse 99 Temp 36.6 ?C (97.9 ?F) Ht 152.4 cm (5') Wt 43.5 kg (96 lb) LMP 09/16/2007 SpO2 100% BMI 18.75 kg/m? General Appearance: Well appearing, alert, in no acute distress, well-hydrated, well nourished.. Skin: Skin color, texture, turgor normal, no suspicious rashes or lesions. Lungs: Lungs clear to auscultation. No wheezing, rhonchi, rales.. Heart: RRR without murmur, gallop, or rubs. No ectopy. Abdomen: Normal abdominal exam, Abdomen soft, non-tender. Bowel sounds normal. No masses, organomegaly. Extremities: Right LE prosthesis. No edema or discoloration of left LE. Health Maintenance List Urine Albumin:Creatinine Ratio due on 12/04/2009 Dilated Retinal Exam due on 04/02/2010 HbA1C due on 08/31/2022 Lung Cancer Screening due on 12/07/2023 Medicare Annual Wellness Visit Never done Mammogram Screening due on 12/11/2024 Hepatitis B Vaccine(1 of 3 - 19+ 3-dose series) due on 05/13/2025 Hepatitis C Screening due on 05/13/2025 HIV Screening due on 05/13/2025 Shingrix Vaccine(1 of 2) due on 05/13/2025 Influenza Vaccine(1) due on 11/16/2024 (more content not included)...[facility]08-11-2025 History of Present illness Narrative* Erica Herman MD - 10/26/2024 2:00 PM EDT Chief Complaint Patient presents with: Medical Clearance Recording using Booklr software for draft documentation of the visit was discussed with the patient/authorized practice representative; all questions welcomed and answered. Patient/authorized practice representative agreed to proceed HPI Sanjuanita Jerry is a 59 year old female who presents here today for Above Complaints.. Preoperative Evaluation: - Scheduled for partial metatarsal resection of the left foot on the of this month. - Referred to Dr. Otoole at the wound center by Dr. Long for a second opinion on a left foot ulcer. - Ulceration of the plantar aspect of the left metatarsal was increasing in size; Dr. Otoole determined it was not salvageable. - High arch and abnormal gait contributing to ulceration; surgery aims to alleviate pressure on theaffected area. - No known complications with anesthesia in the past; has undergone cataract surgery and leg amputation. - No recent fevers, chest pain, palpitations, dyspnea, or edema. - No unusual weight gain or claudication. - Able to climb stairs without chest pain or dyspnea (5.5 METS). - No recent nausea, emesis, diarrhea, or other rashes. - Last stress test in August 2023 was normal. - Recent EKG performed today was normal. - Concerns about clearance due to previous delay in cataract surgery from high blood sugar levels. Diabetes Mellitus: - Managed by Millie Sharif and Dr. Wan Madrigal with upcoming OV on 11/04. - Last A1c on July 22 was 13.7. - Fingerstick blood glucose levels averaging 180 mg/dL with her Dexcom. - Current medications: Lantus 15 units every morning, Humalog 5 units TID before meals, and glipizide. - Following a low-carb diet. - Dexcom sensor malfunctioning; using fingerstick glucose monitoring before meals and at bedtime. Hypotension: BP low today. - No home blood pressure monitoring. - Denies nausea, vomiting, lightheadedness or dizziness. Peripheral Artery Disease: - History of PAD. - Smoking half a pack of cigarettes per day; not interested in smoking cessation assistance. Past medical history, appointments, medications, allergies reviewed. Previous Medical History Past Medical History: No date: Cataracts, bilateral Comment: s/p surgery in 2021 at [facility] 11/2022: Coronary artery calcification Comment: On CT chest No date: Diabetic neuropathy ([facility]) No date: Folic acid deficiency No date: Gas gangrene of lower extremity ([facility]) 09/29/2007: Goiter, unspecified No date: Hypokalemia No date: Hypomagnesemia No date: Known medical problems Comment: rt BKA No date: PAD (peripheral artery disease) 05/31/2022: S/P BKA (below knee amputation) ([facility]) Comment: right No date: Tobacco use disorder No date: Type II or unspecified type diabetes mellitus without mention of complication, uncontrolled Comment: Endo: Dr. Madrigal Previous Surgical History PAST SURGICAL HISTORY Procedure Laterality Date APPENDECTOMY HX 80s CATARACT EXTRACTION HX Bilateral 04/2022 EGD W/O BRSH SPEC VARICIES INJ 2019 with esophageal dilation LEG AMPUTATION HX Right 06/03/2022 BKA PAST SURGICAL HISTORY OF Lt thumb straightened Family History FAMILY HISTORY[1] Patient Allergies ALLERGIES[2] Current Medications Meds Previous to this Encounter[3] Social History SOCIAL HISTORY[4] Review of Symptoms REVIEW OF SYSTEMS GENERAL: No weight loss, malaise or fevers RESPIRATORY: Negative for cough, hemoptysis, wheezing, COPD, dyspnea or shortness of breath CARDIOVASCULAR: Negative for chest pain, leg swelling, hypertension, CHF or palpitations GI: No nausea, vomiting, or diarrhea SKIN: See HPI EXAM: BP 102/52 Pulse 99 Temp 36.6 C (97.9 F) Ht 152.4 cm (5') Wt 43.5 kg (96 lb) LMP 09/16/2007 SpO2 100% BMI 18.75 kg/m General Appearance: Well appearing, alert, in no acute distress, well-hydrated, well nourished.. Skin: Skin color, texture, turgor normal, no suspicious rashes or lesions. Lungs: Lungs clear to auscultation. No wheezing, rhonchi, rales.. Heart: RRR without murmur, gallop, or rubs. No ectopy. Abdomen: Normal abdominal exam, Abdomen soft, non-tender. Bowel sounds normal. No masses, organomegaly. Extremities: Right LE prosthesis. No edema or discoloration of left LE. Health Maintenance List Urine Albumin:Creatinine Ratio due on 12/04/2009 Dilated Retinal Exam due on 04/02/2010 HbA1C due on 08/31/2022 Lung Cancer Screening due on 12/07/2023 Medicare Annual Wellness Visit Never done Mammogram Screening due on 12/11/2024 Hepatitis B Vaccine(1 of 3 - 19+ 3-dose series) due on 05/13/2025 Hepatitis C Screening due on 05/13/2025 HIV Screening due on 05/13/2025 Shingrix Vaccine(1 of 2) due on 05/13/2025 Influenza Vaccine(1) due on 11/16/2024 LDL Cholesterol due on 05/13/2025 Colorectal Cancer Screening due on 05/28/2025 Diabetic Foot Exam due on 06/18/2025 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 Chronic Disease Visit due on 10/26/2025 Cervical Cancer Screening due on 12/11/2027 DTaP,Tdap,Td Vaccine(2 - Td or Tdap) due on 02/01/2033 Pneumococcal Vaccine: 50+ Completed Data reviewed EKG: NSR at 92 bpm 1. Pre-op evaluation (Z01.818) - Moderate risk for surgery due to history of coronary artery calcification, peripheral artery disease, and insulin-dependent diabetes. - EKG today normal; no signs of heart strain or arrhythmia. - Normal stress test in August 2023. - No recent fevers, chest pain, palpitations, SOB, leg swelling, or claudication. - Functional capacity adequate; able to climb stairs without symptoms. - BP low (86/52, then 102/52); advised increased hydration to prevent hypotension. - Labs ordered: CBC, kidney function, and A1c. - Will review lab results and communicate with surgical team regarding risk assessment. 2. Skin ulcer of toe of left foot with fat layer exposed (HCC) (L97.522) - Chronic ulceration of plantar aspect of left metatarsal, increasing in size. - Reviewed podiatry notes from Dr. Long dated October 01. - Reviewed wound center notes from Dr. Otoole; no salvageable tissue remaining. - Surgical debridement and partial metatarsal resection planned for October 04. - Continue Augmentin as prescribed. 3. DM type 2 with diabetic peripheral neuropathy (HCC) (E11.42) - Most recent A1c 13.7% on July 22; prior A1c 8.2% in May. - Current blood glucose readings averaging 180 mg/dL via fingerstick. - On Lantus 15 units QAM, Humalog 5 units TID before meals, and glipizide. - Continue current diabetes regimen. - Advised to maintain low-carb diet and follow-up with Millie Sharif on October 04. - Discussed importance of glycemic control for wound healing and surgical outcomes. 4. Tobacco use disorder (F17.200) - Smoking 1/2 pack per day. - Advised that smoking cessation would improve wound healing. - Offered assistance with smoking cessation if desired. 5. Peripheral artery disease (I73.9) - Known risk factor for delayed wound healing. - Discussed impact on surgical outcomes and importance of risk factor modification. Erica Herman MD [1] Review of patient's family history indicates: Problem: Stroke Relation: Mother Age of Onset: (Not Specified) Problem: Ischemic Heart Disease Relation: Mother Age of Onset: (Not Specified) Problem: Diabetes Relation: Mother Age of Onset: (Not Specified) Problem: Hypertension Relation: Mother Age of Onset: (Not Specified) Problem: Stroke Relation: Father Age of Onset: (Not Specified) Problem: Ischemic Heart Disease Relation: Father Age of Onset: (Not Specified) Problem: Hypertension Relation: Father Age of Onset: (Not Specified) Problem: Diabetes Relation: Father Age of Onset: (Not Specified) Problem: Kidney failure Relation: Sister Age of Onset: (Not Specified) Problem: Ischemic Heart Disease Relation: Brother Age of Onset: (Not Specified) Comment: Massive AR at age 38 Problem: Breast Cancer Relation: Paternal Grandmother Age of Onset: (Not Specified) [2] No Known Allergies [3] Current Outpatient Medications on File Prior to Visit Medication Sig amoxicillin-clavulanate potassium (AUGMENTIN) 875-125 mg per tablet Take 1 tablet by mouth every 12hours. doxycycline hyclate (VIBRAMYCIN) 100 mg capsule Take 1 capsule by mouth every 12 hours. gel dressing (CARRASYN HYDROGEL WOUND DRESS) topical Apply to affected area once daily. Cholecalciferol, Vitamin D3, (VITAMIN D) 25 mcg (1,000 unit) cap Take 2 capsules by mouth once daily. Taking 2,000 units daily DEXCOM G7 SENSOR taryn as directed. LANTUS SOLOSTAR U-100 INSULIN 100 unit/mL (3 mL) Inject 15 Units subcutaneously every morning. insulin lispro (HUMALOG KWIKPEN) 100 unit/mL Inject 5 Units subcutaneously three times a day beforemeals. atorvastatin (LIPITOR) 40 mg tablet Take 1 tablet by mouth daily at bedtime. For cholesterol. lisinopril (ZESTRIL) 5 mg tablet Take 1 tablet by mouth once daily. Magnesium Chloride (SLOW-MAG) 71.5 mg TbEC Take 2 tablets by mouth once daily. ferrous sulfate 325 mg (65 mg iron) tablet Take 1 tablet by mouth once daily. calcium carbonate (CALTRATE) 600 mg calcium (1,500 mg) tab Take 1,200 mg by mouth once daily. aspirin, enteric coated (ASPIRIN, ENTERIC COATED) 81 mg EC tablet Take 81 mg by mouth once daily. albuterol HFA (PROVENTIL HFA, VENTOLIN HFA) 90 mcg/actuation inhaler Inhale 2 Puffs as instructed every 4 hours as needed for wheezing/shortness of breath. glipiZIDE (GLUCOTROL) 5 mg tablet Take 5 mg by mouth two times a day before meals. blood sugar diagnostic(TRUETRACK TEST STRIPS) Test blood sugars twice daily. blood-glucose meter(TRUETRACK BLOOD GLUCOSE SYSTEM KIT) Test glucose as directed blood-glucose control, low(TRUETRACK GLUCOSE SOLN) Test controls as needed LANCETS Test blood sugars once daily, 250.00, non insulin dep collagenase (SANTYL) ointment Apply to affected area once daily. APPLY TO AFFECTED AREA (Patient not taking: Reported on 10/26/2024) No current facility-administered medications on file prior to visit. [4] Social History Tobacco Use Smoking status: Every Day Current packs/day: 0.50 Average packs/day: 0.5 packs/day for 45.6 years (22.8 ttl pk-yrs) Types: Cigarettes Start date: 03/18/1979 Smokeless tobacco: Never Vaping Use Vaping status: Never Used Substance Use Topics Alcohol use: No Drug use: [facility] Progress note Author Andriy Otoole [facility] Note Date/Time October 21, 2024 1:5 9pm [facility] [address] [place] [id number] Progress Note - Wound Care 10/21/24 1356 MR#: [id number] Acct: [id number] Name: SANJUANITA JERRY Rep #:[id number] : 1965 59 From: Andriy Gee PM PCP: Dr. Art Herman MD Status :REG RCR Location: History of Present Illness Date of Service: 10/21/24 Chief Complaint: R BKA stump wound History of Wound: Sanjuanita Jerry is a 57 y/o female who presents to the wound healing center today for management of a right BKA stump wound. She is accompanied to the appointment today by her daughter who helps to supplement herhistory and also helps with her wound care. 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 At that time, they explored and washed out proximally in her thigh as well. Subsequently she initially had wound vac placed prior to secondary closure. She reports that the amputation site did ultimately heal fully and she was able to obtain a prosthetic. She had been doing very well withher prosthetic and getting back to work etc. Unfortunately about 1-2 months ago she developed a wound on her amputation stump due to the prosthetic rubbing in this area. She presented to the [facility] ER on 02/26/23 with concern of infection. She was admitted from 02/26-03/01 for IV antibiotics. Wound cultures were positive for staph aureus, blood cultures were negative. She was evaluated by orthopedics at that time as well. XR and CT scan performed during that admission were negative for signs of osteomyelitis. She was discharged with a course of Bactrim and referral here. At home, they have been doing daily dressing changes with iodoform and dry gauzedressing. Her daughter reports it has made significant improvement since her hospital stay. Progress of Wound: Full-thickness wound subfifth metatarsal head left foot Subjective Subjective Patient is a 59-year-old female presenting to wound care center today follow-up evaluation of full-thickness wound to the left foot at the level of the subfifthmetatarsal head. Patient has been compliant with dressing changes. She is wearing a surgical shoe and offloading pad. She does daily dressing changes as discussed. She still smokes even though that she knows she should quit. She denies trauma. Denies constitutional symptoms. Blood sugars well-controlled. No other pedal complaints at this time. Objective Data Objective Data Vital Signs: Vital Signs Temp Pulse Resp BP 97 F L 106 H 16 127/64 H 10/21/24 13:10 10/21/24 13:10 10/21/24 13:10 10/21/24 13:10 Lab / Micro Data Micro: Microbiology 10/08/24 10:25 Wound - Left Foot Gram Stain - Final 10/08/24 10:25 Wound - Left Foot Wound Culture - Final Meth. resistant Staph. aureus Streptococcus agalactiae (B) Physical Exam Narrative Vascular: DP and PT pulses are palpable to the left lower extremity. CFT is brisk. Skin temperature gradient is warm to warm from proximal ankles to distaldigits of the left lower extremity. No increase in focal warmth or erythema is appreciated to the left lower extremity. Neurological: Light touch is intact. Protective sensation is diminished. Dermatological: Evidence of full-thickness wound appreciated the subfifth metatarsal head measuring 1.5 x 1.2 x 0.5 cm. Positive probe to bone. Excisional debridement down to including subcutaneous tissue, fascia and muscle and bone with a number 3 mm dermal curette to the left subfifth metatarsal head ulceration without incident. Predebridement measurement was 1.3 x 1.0 x 0.3 cm. Postdebridement measurement is 1.5 x 1.2 x 0.5 cm. Musculoskeletal: Muscle strength 5 out of 5 in all quadrants to the left lower extremity. Cavus foot deformity is appreciated. Mild varus/supination deformity appreciated to the left foot when at rest. No pain on palpation to full- thickness wound left foot. Debridement Note Debridement Note Debridement Free Text: Excisional debridement down to including subcutaneous tissue, fascia and muscle and bone with a number 3 mm dermal curette to the leftsubfifth metatarsal head ulceration without incident. Predebridement measurement was 1.3 x 1.0 x 0.3 cm. Postdebridement measurement is 1.5 x 1.2 x 0.5 cm. Post-Debridement Measurements and Additional Note: Post-Debridement Measurements/Treatment SUE - Nurse 1 - General Ulcer Assessment Start: 10/21/24 13:08 Freq: Status: Active Protocol: APRIL Activity Type Activity Date Activity User E-sign Co-sign Detail Recorded Client Recorded Date Recorded By Document 10/21/24 13:10 JOSELIN [id number] 10/21/24 13:15 DL 10/21/24 13:10 - Today's Visit Information Type of service Follow-up Visit (Physician/AUTO [employer]FFER ) Arrival Mode Ambulatory Transfer Assistance None Patient Identification Verified (Name & Yes ) Patient Requires Transmission-Based No Precautions Vital Signs Temperature (97.8 F-99.1 F) 97 F L Temperature Source Temporal Pulse Rate (60-100) 106 H Respiratory Rate (12-18) 16 Respiratory rate source Observation Blood Pressure (90/60-120/80) 127/64 H Blood Pressure Mean (mm Hg) 85 Source Monitor History Since Last Visit- (Skip if this is Patient's initial visit) Have you changed medications since your No last visit? Any new allergies or adverse reactions No Had a fall/change in ADL's that may No increase risk of falls Signs or symptoms of abuse and/or No neglect since last visit Have you been in the hospital since your No last visit? Has dressing in place as prescribed Yes Has compression in place as prescribed Yes Has offloadiing in place as prescribed N/A Experienced any changes in pain level or No management Pain Scale: 0-10 Numeric Is Patient Pain Free? Yes WC - Nurse 1 - General Ulcer Measurement Start: 10/21/24 13:08 Freq: Status: Active Protocol: Activity Type Activity Date Activity User E-sign Co-sign Detail Recorded Client Recorded Date Recorded By Document 10/21/24 13:10 JOSELIN [id number] 10/21/24 13:15 DL 10/21/24 13:10 Wound Center Nurse 1 #3 LT LAT FT -Current Size (cm) - Length 1.1 -Current Size (cm) - Width 1.3 -Current Size (cm) - Depth 0.2 -Total Square Cm 1.43 -Exudate Amt Small -Exudate Type Serosanguineous -Wound Margin Distinct, Outline Attached -Granulation Amt Large (67-100%) -Granulation Quality Belen -Necrosis Amt Small (1-33%) -Necrotic Tissue Type Adherent Slough -Structure Exposed N/A -Texture (Edwina-wound Skin Appearance) Scarring -Moisture (Edwina-wound Skin Appearance) No Abnormality -Color (Edwina-wound Skin Appearance) No Abnormality -Temperature (Edwina-wound Skin No Abnormality Appearance) (Pt Warm) -Ulcer Cleansing Rinsed/ Irrigated with Saline -Foul Odor after Cleansing No -Anesthetic Used 5% Lidocaine Gel -Wound Comment(s) Started ATB as ordered. WC - Nurse 2 - General Ulcer CM Notes Start: 10/21/24 13:08 Freq: Status: Active Protocol: Activity Type Activity Date Activity User E-sign Co-sign Detail Recorded Client Recorded Date Recorded By Document 10/21/24 13:29 ALICIA [id number] 10/21/24 13:30 ALICIA 10/21/24 13:29 Wound Center Nurse 2 -Time 13:29 -Correct Patient Yes -Correct Side, Site, Position Yes -Correct Procedure Yes -Procedure Performed Yes -Type of Procedure Debridement -Clinical Debridement Bone -Tissue Removed Non-viable tissue -Post Debridement (cm) - Length 1.5 -Post Debridement (cm) - Width 1.2 -Post Debridement (cm) - Depth 0.5 -Total Square (Post) (cm) 1.80 -Area of Debridement (cm) - Length 1.5 -Area of Debridement (cm) - Width 1.2 -Total Square (Area) (cm) 1.80 -Tunneling No -Undermining/Tunneling No -Circular Undermining No -Wound/Ulcer Outcome Not Healed -Ulcer Cleansing Rinsed/ Irrigated with Saline -Foul Odor after Cleansing No -Bioengineered Tissue No -Bleeding Controlled with Pressure -Treatment Response Procedure Tolerated Well -Offloading Yes -Type of Offloading Surgical Shoe -Debridement - Bone, 1st 20sq cm Yes Pain Scale: 0-10 Numeric Is Patient Pain Free? Yes WC - Nurse 3 - General Ulcer D/C NN Start: 10/21/24 13:08 Freq: Status: Active Protocol: Activity Type Activity Date Activity User E-sign Co-sign Detail Recorded Client Recorded Date Recorded By Document 10/21/24 13:38 ML [id number] 10/21/24 13:39 ML 10/21/24 13:38 Wound Care Center Nurse 3 #3 LT LAT FT -Ulcer Cleansing Rinsed/ Irrigated with Saline -Other Dressing betadine soaked gauze -Primary Dressing Covered/Secured with Dry Gauze & Roll Gauze, Secured with Tape Pain Scale: 0-10 Numeric Is Patient Pain Free? Yes Assessment/Plan Assessment/Plan (1) Non-pressure chronic ulcer of other part of left foot with necrosis of bone: CODE(S): L97.524 - Non-pressure chronic ulcer of other part of left foot with necrosis of bone PLAN: Patient was examined and evaluated. All findings were discussed with the patient. All questions were answered to the patient's satisfaction. Excisional debridement down to including subcutaneous tissue, fascia and muscle and bone with a number 3 mm dermal curette to the left subfifth metatarsal head ulceration without incident. Predebridement measurement was 1.3 x 1.0 x 0.3 cm. Postdebridement measurement is 1.5 x 1.2 x 0.5 cm. After debridement the patient does have evidence of positive probe to bone. Educated patient the needto move forward with surgical intervention to remove the possible infected bone to the left foot which she is understanding of. I told the patient that she needs to follow-up with primary to get medically cleared to go under general anesthesia which she is understanding about. We will begin authorization to the patient's insurance to move forward with incision of bone cortex with delayed primary closure to the left foot at the level of the subfifth metatarsal head as well as the full-thickness wound. All risk and benefits have been discussed with patient great detail. And she is understanding the need to move forward with surgical intervention. Patient will follow-up in Dr. Otoole in 1 week (2) Chronic painful diabetic polyneuropathy: CODE(S): E11.42 - Type 2 diabetes mellitus with diabetic polyneuropathy 10/21/24 [id number] <Electronically signed by Andriy Otoole DPKe> Cosigner Signature (if applicable): CC: ~ Signed [facility] Work Phone: [phone] 172-244008-06-2025 Progress note [facility] [address] [place] [address] Progress Note - Wound Care 10/21/24 1356 MR#: [id number] Acct: [id number] Name: SANJUANITA JERRY Rep #:[id number] : 1965 59 From: Andriy Gee PM PCP: Dr. Art Herman MD Status :REG RCR Location: History of Present Illness Date of Service: 10/21/24 Chief Complaint: R BKA stump wound History of Wound: Sanjuanita Jerry is a 57 y/o female who presents to the wound healing center today for management of a right BKA stump wound. She is accompanied to the appointment today by her daughter who helps to supplement herhistory and also helps with her wound care. 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 At that time, they explored and washed out proximally in her thigh as well. Subsequently she initially had wound vac placed prior to secondary closure. She reports that the amputation site did ultimately heal fully and she was able to obtain a prosthetic. She had been doing very well withher prosthetic and getting back to work etc. Unfortunately about 1-2 months ago she developed a wound on her amputation stump due to the prosthetic rubbing in this area. She presented to the [facility] ER on 02/26/23 with concern of infection. She was admitted from 02/26-03/01 for IV antibiotics. Wound cultures were positive for staph aureus, blood cultures were negative. She was evaluated by orthopedics at that time as well. XR and CT scan performed during that admissionwere negative for signs of osteomyelitis. She was discharged with a course of Bactrim and referral here. At home, they have been doing daily dressing changes with iodoform and dry gauzedressing. Her daughter reports it has made significant improvement since her hospital stay. Progress of Wound: Full-thickness wound subfifth metatarsal head left foot Subjective Subjective Patient is a 59-year-old female presenting to wound care center today follow-up evaluation of full-thickness wound to the left foot at the level of the subfifthmetatarsal head. Patient has been compliant with dressing changes. She is wearing a surgical shoe and offloading pad. She does daily dressing changes as discussed. She still smokes even though that she knows she should quit. She denies trauma. Denies constitutional symptoms. Blood sugars well-controlled. No other pedal complaints at thistime. Objective Data Objective Data Vital Signs: Vital Signs Temp Pulse Resp BP 97 F L 106 H 16 127/64 H 10/21/24 13:10 10/21/24 13:10 10/21/24 13:10 10/21/24 13:10 Lab / Micro Data Micro: Microbiology 10/08/24 10:25 Wound - Left Foot Gram Stain - Final 10/08/24 10:25 Wound - Left Foot Wound Culture - Final Meth. resistant Staph. aureus Streptococcus agalactiae (B) Physical Exam Narrative Vascular: DP and PT pulses are palpable to the left lower extremity. CFT is brisk. Skin temperaturegradient is warm to warm from proximal ankles to distaldigits of the left lower extremity. No increase in focal warmth or erythema is appreciated to the left lower extremity. Neurological: Light touch is intact. Protective sensation is diminished. Dermatological: Evidence of full-thickness wound appreciated the subfifth metatarsal head measuring1.5 x 1.2 x 0.5 cm. Positive probe to bone. Excisional debridement down to including subcutaneous tissue, fascia and muscle and bone with a number 3 mm dermal curette to the left subfifth metatarsal head ulceration without incident. Predebridement measurement was 1.3 x 1.0 x 0.3 cm. Postdebridement measurement is 1.5 x 1.2 x 0.5 cm. Musculoskeletal: Muscle strength 5 out of 5 in all quadrants to the left lower extremity. Cavus foot deformity is appreciated. Mild varus/supination deformity appreciated to the left foot when at rest. No pain on palpation to full- thickness wound left foot. Debridement Note Debridement Note Debridement Free Text: Excisional debridement down to including subcutaneous tissue, fascia and muscle and bone with a number 3 mm dermal curette to the leftsubfifth metatarsal head ulceration without incident. Predebridement measurement was 1.3 x 1.0 x 0.3 cm. Postdebridement measurement is 1.5 x 1.2 x 0.5 cm. 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 Any new allergies or adverse reactions No Had a fall/change in ADL's that may No increase risk of falls Signs or symptoms of abuse and/or No neglect since last visit Have you been in the hospital since your No last visit? Has dressing in place as prescribed Yes Has compression in place as prescribed Yes Has offloadiing in place as prescribed N/A Experienced any changes in pain level or No management Pain Scale: 0-10 Numeric Is Patient Pain Free? Yes SUE - Nurse 1 - General Ulcer Measurement Start: 10/21/24 13:08 Freq: Status: Active Protocol: Activity Type Activity Date Activity User E-sign Co-sign Detail Recorded Client Recorded Date Recorded By Document 10/21/24 13:10 DL [id number] 10/21/24 13:15 DL 10/21/24 13:10 Wound Center Nurse 1 #3 LT LAT FT -Current Size (cm) - Length 1.1 -Current Size (cm) - Width 1.3 -Current Size (cm) - Depth 0.2 -Total Square Cm 1.43 -Exudate Amt Small -Exudate Type Serosanguineous -Wound Margin Distinct, Outline Attached -Granulation Amt Large (67-100%) -Granulation Quality Belen -Necrosis Amt Small (1-33%) -Necrotic Tissue Type Adherent Slough -Structure Exposed N/A -Texture (Edwina-wound Skin Appearance) Scarring -Moisture (Edwina-wound Skin Appearance) No Abnormality -Color (Edwina-wound Skin Appearance) No Abnormality -Temperature (Edwina-wound Skin No Abnormality Appearance) (Pt Warm) -Ulcer Cleansing Rinsed/ Irrigated with Saline -Foul Odor after Cleansing No -Anesthetic Used 5% Lidocaine Gel -Wound Comment(s) Started ATB as ordered. WC - Nurse 2 - General Ulcer CM Notes Start: 10/21/24 13:08 Freq: Status: Active Protocol: Activity Type Activity Date Activity User E-sign Co-sign Detail Recorded Client Recorded Date Recorded By Document 10/21/24 13:29 JF [id number] 10/21/24 13:30 JF 10/21/24 13:29 Wound Center Nurse 2 -Time 13:29 -Correct Patient Yes -Correct Side, Site, Position Yes -Correct Procedure Yes -Procedure Performed Yes -Type of Procedure Debridement -Clinical Debridement Bone -Tissue Removed Non-viable tissue -Post Debridement (cm) - Length 1.5 -Post Debridement (cm) - Width 1.2 -Post Debridement (cm) - Depth 0.5 -Total Square (Post) (cm) 1.80 -Area of Debridement (cm) - Length 1.5 -Area of Debridement (cm) - Width 1.2 -Total Square (Area) (cm) 1.80 -Tunneling No -Undermining/Tunneling No -Circular Undermining No -Wound/Ulcer Outcome Not Healed -Ulcer Cleansing Rinsed/ Irrigated with Saline -Foul Odor after Cleansing No -Bioengineered Tissue No -Bleeding Controlled with Pressure -Treatment Response Procedure Tolerated Well -Offloading Yes -Type of Offloading Surgical Shoe -Debridement - Bone, 1st 20sq cm Yes Pain Scale: 0-10 Numeric Is Patient Pain Free? Yes WC - Nurse 3 - General Ulcer D/C NN Start: 10/21/24 13:08 Freq: Status: Active Protocol: Activity Type Activity Date Activity User E-sign Co-sign Detail Recorded Client Recorded Date Recorded By Document 10/21/24 13:38 ML [id number] 10/21/24 13:39 ML 10/21/24 13:38 Wound Care Center Nurse 3 #3 LT LAT FT -Ulcer Cleansing Rinsed/ Irrigated with Saline -Other Dressing betadine soaked gauze -Primary Dressing Covered/Secured with Dry Gauze & Roll Gauze, Secured with Tape Pain Scale: 0-10 Numeric Is Patient Pain Free? Yes Assessment/Plan Assessment/Plan (1) Non-pressure chronic ulcer of other part of left foot with necrosis of bone: CODE(S): L97.524 - Non-pressure chronic ulcer of other part of left foot with necrosis of bone PLAN: Patient was examined and evaluated. All findings were discussed with the patient. All questions were answered to the patient's satisfaction. Excisional debridement down to including subcutaneous tissue, fascia and muscle and bone with a number 3 mm dermal curette to the left subfifth metatarsal head ulceration without incident. Predebridement measurement was 1.3 x 1.0 x 0.3 cm. Postdebridement measurement is 1.5 x 1.2 x 0.5 cm. After debridement the patient does have evidence of positive probe to bone. Educated patient the needto move forward with surgical intervention to remove the possible infected bone to the left foot which she is understanding of. I told the patient that she needs to follow-up with primary to get medically cleared to go under general anesthesia which she is understanding about. We will begin authorization to the patient's insurance to move forward with incision of bone cortexwith delayed primary closure to the left foot at the level of the subfifth metatarsal head as well as the full-thickness wound. All risk and benefits have been discussed with patient great detail. And she is understanding the need to move forward with surgical intervention. Patient will follow-up in Dr. Otoole in 1 week (2) Chronic painful diabetic polyneuropathy: CODE(S): E11.42 - Type 2 diabetes mellitus with diabetic polyneuropathy 10/21/24 1359 Cosigner Signature (if applicable): CC: ~ Signed [facility]07-31-2025 Progress note Author Andriy Otoole [facility] Note Date/Time October 15, 2024 2:40 pm [facility] [address] [place] [address] Progress Note - Wound Care 10/15/24 1434 MR#: [id number] Acct: [id number] Name: SANJUANITA JERRY Rep #:[id number] : 1965 59 From: Andriy Otoole D PM PCP: Dr. Art Herman MD Status :REG RCR Location: History of Present Illness Date of Service: 10/14/24 Chief Complaint: R BKA stump wound History of Wound: Sanjuanita Jerry is a 57 y/o female who presents to the wound healing center today for management of a right BKA stump wound. She is accompanied to the appointment today by her daughter who helps to supplement herhistory and also helps with her wound care. 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 At that time, they explored and washed out proximally in her thigh as well. Subsequently she initially had wound vac placed prior to secondary closure. She reports that the amputation site did ultimately heal fully and she was able to obtain a prosthetic. She had been doing very well withher prosthetic and getting back to work etc. Unfortunately about 1-2 months ago she developed a wound on her amputation stump due to the prosthetic rubbing in this area. She presented to the [facility] ER on 02/26/23 with concern of infection. She was admitted from 02/26-03/01 for IV antibiotics. Wound cultures were positive for staph aureus, blood cultures were negative. She was evaluated by orthopedics at that time as well. XR and CT scan performed during that admission were negative for signs of osteomyelitis. She was discharged with a course of Bactrim and referral here. At home, they have been doing daily dressing changes with iodoform and dry gauzedressing. Her daughter reports it has made significant improvement since her hospital stay. Progress of Wound: Stable full-thickness wound subfifth metatarsal head left foot. Subjective Subjective Patient is a 59-year-old diabetic female presented wound care center today for follow-up evaluation of full-thickness wound to the subfifth metatarsal head left foot. Patient has been doing dressing changes as prescribed. She is currently on doxycycline and Augmentin. She is not interested in surgery at this time and like to exhaust all conservative treatment. Denies trauma. Denies constitutional symptoms. She does continue to smoke. No other pedal complaints at this time. Objective Data Objective Data Vital Signs: Vital Signs Temp Pulse Resp BP O2 Del Method 97.8 F 100 16 121/57 H Room Air 10/14/24 14:11 10/14/24 14:11 10/14/24 14:11 10/14/24 14:11 10/14/24 14:11 Oxygen Delivery Method Room Air Weight: 44.452 kg Body Mass Index (BMI) 19.8 Lab / Micro Data Micro: Microbiology 10/08/24 10:25 Wound - Left Foot Gram Stain - Final 10/08/24 10:25 Wound - Left Foot Wound Culture - Final Meth. resistant Staph. aureus Streptococcus agalactiae (B) Physical Exam Narrative Vascular: DP and PT pulses are palpable to the left lower extremity. CFT is brisk. Skin temperature gradient is warm to warm from proximal ankles to distaldigits of the left lower extremity. No increase in focal warmth or erythema is appreciated to the left lower extremity. Neurological: Light touch is intact. Protective sensation is diminished. Dermatological: Evidence of full-thickness wound appreciated the subfifth metatarsal head measuring 1.2 x 1.5 x 0.3 cm. Wound base is 100% granular nature. No drainage. No sign of infection. Excisional debridement down to including subcutaneous tissue, fascia and muscle with a number 3 mm dermal curette to the left subfifth metatarsal head ulceration without incident. Predebridement measurement was 1.1 x 1.2 x 0.1 cm. Postdebridement measurement is 1.2 x 1.5 x 0.3 cm. Musculoskeletal: Muscle strength 5 out of 5 in all quadrants to the left lower extremity. Cavus foot deformity is appreciated. Mild varus/supination deformity appreciated to the left foot when at rest. No pain on palpation to full- thickness wound left foot. Debridement Note Debridement Note Debridement Free Text: Excisional debridement down to including subcutaneous tissue, fascia and muscle with a number 3 mm dermal curette to the left subfifthmetatarsal head ulceration without incident. Predebridement measurement was 1.1x 1.2 x 0.1 cm. Postdebridement measurement is 1.2 x 1.5 x 0.3 cm. Post-Debridement Measurements and Additional Note: Post-Debridement Measurements/Treatment WC - Nurse 1 - General Ulcer Assessment Start: 10/07/24 14:23 Freq: Status: Active Protocol: APRIL Activity Type Activity Date Activity User E-sign Co-sign Detail Recorded Client Recorded Date Recorded By Document 10/07/24 14:33 KW [id number] 10/07/24 14:37 KW Document 10/14/24 14:11 BM [id number] 10/14/24 14:16 BMF 10/07/24 10/14/24 14:33 14:11 WC - Today's Visit Information Type of service Initial Visit Follow-up Visit (Physician/AUTO WASH BUFFER ) Arrival Mode Ambulatory,Cane Ambulatory,Cane Transfer Assistance None Accompanied by daughter Patient Identification Verified (Name & Yes Yes ) Patient Requires Transmission-Based No Precautions Finger Stick Blood Sugar(mg/dl) (if 210 indicated): Blood Sugar Done During this Visit Height and Weight Height 4 ft 11 in Weight 44.452 kg Weight in Pounds 98.0 lbs Weight Measurement Method Estimated by Patient Body Mass Index (BMI) 19.8 19.8 BMI Classification Normal Normal Vital Signs Temperature (97.8 F-99.1 F) 98.0 F 97.8 F Temperature Source Temporal Temporal Pulse Rate (60-100) 106 H 100 Pulse Location Monitor Monitor Respiratory Rate (12-18) 18 16 Respiratory rate source Observation Observation Oxygen Delivery Method Room Air Room Air Blood Pressure (90/60-120/80) 121/67 H 121/57 H Blood Pressure Mean (mm Hg) 85 78 Source Monitor Monitor Position Semi-Fowlers Sitting Blood Pressure Location Left Arm Right Arm History Since Last Visit- (Skip if this is Patient's initial visit) Have you changed medications since your No last visit? Any new allergies or adverse reactions No Had a fall/change in ADL's that may No increase risk of falls Signs or symptoms of abuse and/or No neglect since last visit Have you been in the hospital since your No last visit? Has dressing in place as prescribed Yes Left Footwear Surgical Shoe Regular Shoe with pressure relief insole Right Footwear Regular Shoe Surgical Shoe with pressure relief insole Pain Scale: 0-10 Numeric Is Patient Pain Free? Yes Yes WC - Nurse 1 - General Ulcer Measurement Start: 10/07/24 14:23 Freq: Status: Active Protocol: Activity Type Activity Date Activity User E-sign Co-sign Detail Recorded Client Recorded Date Recorded By Document 10/07/24 14:33 [id number] 10/07/24 14:37 Document 10/14/24 14:11 [facility] [id number] 10/14/24 14:16 [facility] 10/07/24 10/14/24 14:33 14:11 Wound Center Nurse 1 #3 LT LAT FT -Combined with other wound No -Current Size (cm) - Length 1.5 1 -Current Size (cm) - Width 1 1.3 -Current Size (cm) - Depth 0.3 0.2 -Total Square Cm 1.5 1.3 -Date of Last Picture (Recall this 10/07/24 10/14/24 field) -Photo Taken Yes -Tunneling No -Undermining/Tunneling No -Circular Undermining No -Exudate Amt Medium Medium -Exudate Type Serosanguineous Serous -Wound Margin Distinct, Distinct, Outline Outline Attached Attached -Granulation Amt Large (67-100%) Large (67-100%) -Granulation Quality Belen Belen -Slough/Fibrin Yes -Necrosis Amt Small (1-33%) -Necrotic Tissue Type Adherent Slough -Texture (Edwina-wound Skin Appearance) Assessed,Callus Assessed,Callus ,Scarring -Moisture (Edwina-wound Skin Appearance) Assessed Assessed -Color (Edwina-wound Skin Appearance) Assessed Assessed -Temperature (Edwina-wound Skin No Abnormality No Abnormality Appearance) (Pt Warm) (Pt Warm) -Tenderness on Palpation (Edwina-wound No No Skin Appearance) -Ulcer Cleansing Soap and Water Rinsed/ Irrigated with Saline -Foul Odor after Cleansing No No -Anesthetic Used 5% Lidocaine 5% Lidocaine Gel Gel WC - Nurse 2 - General Ulcer CM Notes Start: 10/07/24 14:23 Freq: Status: Active Protocol: Activity Type Activity Date Activity User E-sign Co-sign Detail Recorded Client Recorded Date Recorded By Document 10/07/24 14:43 [id number] 10/07/24 14:52 Document 10/14/24 14:51 [id number] 10/14/24 14:54 10/07/24 10/14/24 14:43 14:51 Wound Center Nurse 2 #3 LT LAT FT -Time 14:47 14:51 -Correct Patient Yes Yes -Correct Side, Site, Position Yes Yes -Correct Procedure Yes Yes -Procedure Performed Yes Yes -Type of Procedure Debridement Debridement -Clinical Debridement Subcutaneous Muscle / Fascia -Tissue Removed Subcutaneous Muscle -Post Debridement (cm) - Length 1.4 1.2 -Post Debridement (cm) - Width 1.2 1.5 -Post Debridement (cm) - Depth 0.2 0.3 -Total Square (Post) (cm) 1.68 1.80 -Area of Debridement (cm) - Length 1.4 1.2 -Area of Debridement (cm) - Width 1.2 1.5 -Total Square (Area) (cm) 1.68 1.80 -Tunneling No No -Undermining/Tunneling No No -Circular Undermining No No -Wound/Ulcer Outcome Not Healed Not Healed -Ulcer Cleansing Rinsed/ Rinsed/ Irrigated with Irrigated with Saline Saline -Foul Odor after Cleansing No No -Bioengineered Tissue No No -Bleeding Controlled with Pressure Pressure -Treatment Response Procedure Procedure Tolerated Well Tolerated Well -Offloading Yes -Type of Offloading Surgical Shoe -Debridement - Subq, 1st 20sq cm Yes -Debridement - Muscle / Fascia, 1st Yes 20sq cm Pain Scale: 0-10 Numeric Is Patient Pain Free? Yes Yes WC - Nurse 3 - General Ulcer D/C NN Start: 10/07/24 14:23 Freq: Status: Active Protocol: Activity Type Activity Date Activity User E-sign Co-sign Detail Recorded Client Recorded Date Recorded By Document 10/07/24 15:09 [id number] 10/07/24 15:09 KW Document 10/14/24 15:00 [id number] 10/14/24 15:01 10/07/24 10/14/24 15:09 15:00 Wound Care Center Nurse 3 #3 LT LAT FT -Ulcer Cleansing Not Cleansed -Foul Odor after Cleansing No -Primary Dressing Applied AMD Dressing AMD Dressing 4x4 4x4 -Primary Dressing Covered/Secured with Dry Gauze & Dry Gauze,Dry Roll Gauze, Gauze & Roll Secured with Gauze,Secured Tape with Tape -AMD Dressing 4x4 1 1 Pain Scale: 0-10 Numeric Is Patient Pain Free? Yes Yes WC - Visit Discharge Discharge Condition Stable Stable Ambulatory Status Ambulatory,Cane Ambulatory,Cane Transportation Private Auto Private Auto Medication Reconcilliation completed & No provided to patient/care provider Clinical Summary of Care Provided Yes Assessment/Plan Assessment/Plan (1) Non-pressure chronic ulcer of other part of left foot with necrosis of muscle: CODE(S): L97.523 - Non-pressure chronic ulcer of other part of left foot with necrosis of muscle PLAN: Patient was examined and evaluated. All findings were discussed with the patient. All questions were answered to the patient's satisfaction. Excisional debridement down to including subcutaneous tissue, fascia and muscle with a number 3 mm dermal curette to the left subfifth metatarsal head ulceration without incident. Predebridement measurement was 1.1 x 1.2 x 0.1 cm. Postdebridement measurement is 1.2 x 1.5 x 0.3 cm. The left foot was wiped clean and patted dry. AMD pad was applied followed by dry sterile dressing and light compression wrap. Offloading pad was inserted into the patient's surgicalshoe and will change the dressing daily to every other day. Educated patient continue strict blood sugar control. Which she is understanding of. Patient will continue her doxycycline and Augmentin as prescribed. I did discuss further with the patient that I do recommend surgical interventionand MIS dorsiflexor osteotomy fifth metatarsal head to help heal and stabilize her wound. She will consider if there is delayed in wound healing. Patient will follow-up in Dr. Otoole in 1 week (2) Chronic painful diabetic polyneuropathy: CODE(S): E11.42 - Type 2 diabetes mellitus with diabetic polyneuropathy 10/15/24 1440 <Electronically signed by Andriy Otoole DPM> Cosigner Signature (if applicable): CC: ~ Signed [facility] Work Phone: [phone] Progress note [facility] [address] [place] [address] Progress Note - Wound Care 10/15/24 1434 MR#: [id number] Acct: [id number] Name: SANJUANITA JERRY Rep #:[id number] : 1965 59 From: Andriy Gee PM PCP: Dr. Art Herman MD Status :REG RCR Location: History of Present Illness Date of Service: 10/14/24 Chief Complaint: R BKA stump wound History of Wound: Sanjuanita Jerry is a 57 y/o female who presents to the wound healing center today for management of a right BKA stump wound. She is accompanied to the appointment today by her daughter who helps to supplement herhistory and also helps with her wound care. 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 At that time, they explored and washed out proximally in her thigh as well. Subsequently she initially had wound vac placed prior to secondary closure. She reports that the amputation site did ultimately heal fully and she was able to obtain a prosthetic. She had been doing very well withher prosthetic and getting back to work etc. Unfortunately about 1-2 months ago she developed a wound on her amputation stump due to the prosthetic rubbing in this area. She presented to the [facility] ER on 02/26/23 with concern of infection. She was admitted from 02/26-03/01 for IV antibiotics. Wound cultures were positive for staph aureus, blood cultures were negative. She was evaluated by orthopedics at that time as well. XR and CT scan performed during that admissionwere negative for signs of osteomyelitis. She was discharged with a course of Bactrim and referral here. At home, they have been doing daily dressing changes with iodoform and dry gauzedressing. Her daughter reports it has made significant improvement since her hospital stay. Progress of Wound: Stable full-thickness wound subfifth metatarsal head left foot. Subjective Subjective Patient is a 59-year-old diabetic female presented wound care center today for follow-up evaluationof full-thickness wound to the subfifth metatarsal head left foot. Patient has been doing dressing changes as prescribed. She is currently on doxycycline and Augmentin. She is not interested in surgery at this time and like to exhaust all conservative treatment. Denies trauma. Denies constitutional symptoms. She does continue to smoke. No other pedal complaints at this time. Objective Data Objective Data Vital Signs: Vital Signs Temp Pulse Resp BP O2 Del Method 97.8 F 100 16 121/57 H Room Air 10/14/24 14:11 10/14/24 14:11 10/14/24 14:11 10/14/24 14:11 10/14/24 14:11 Oxygen Delivery Method Room Air Weight: 44.452 kg Body Mass Index (BMI) 19.8 Lab / Micro Data Micro: Microbiology 10/08/24 10:25 Wound - Left Foot Gram Stain - Final 10/08/24 10:25 Wound - Left Foot Wound Culture - Final Meth. resistant Staph. aureus Streptococcus agalactiae (B) Physical Exam Narrative Vascular: DP and PT pulses are palpable to the left lower extremity. CFT is brisk. Skin temperaturegradient is warm to warm from proximal ankles to distaldigits of the left lower extremity. No increase in focal warmth or erythema is appreciated to the left lower extremity. Neurological: Light touch is intact. Protective sensation is diminished. Dermatological: Evidence of full-thickness wound appreciated the subfifth metatarsal head measuring1.2 x 1.5 x 0.3 cm. Wound base is 100% granular nature. No drainage. No sign of infection. Excisional debridement down to including subcutaneous tissue, fascia and muscle with a number 3 mm dermal curette to the left subfifth metatarsal head ulceration without incident. Predebridement measurement was 1.1 x 1.2 x 0.1 cm. Postdebridement measurement is 1.2 x 1.5 x 0.3 cm. Musculoskeletal: Muscle strength 5 out of 5 in all quadrants to the left lower extremity. Cavus foot deformity is appreciated. Mild varus/supination deformity appreciated to the left foot when at rest. No pain on palpation to full- thickness wound left foot. Debridement Note Debridement Note Debridement Free Text: Excisional debridement down to including subcutaneous tissue, fascia and muscle with a number 3 mm dermal curette to the left subfifthmetatarsal head ulceration without incident. Predebridement measurement was 1.1x 1.2 x 0.1 cm. Postdebridement measurement is 1.2 x 1.5 x 0.3 cm. Post-Debridement Measurements and Additional Note: Post-Debridement Measurements/Treatment WC - Nurse 1 - General Ulcer Assessment Start: 10/07/24 14:23 Freq: Status: Active Protocol: TYREEEXT Activity Type Activity Date Activity User E-sign Co-sign Detail Recorded Client Recorded Date Recorded By Document 10/07/24 14:33 [id number] 10/07/24 14:37 Document 10/14/24 14:11 [facility] [id number] 10/14/24 14:16 [facility] 10/07/24 10/14/24 14:33 14:11 - Today's Visit Information Type of service Initial Visit Follow-up Visit (Physician/[employer]FFER ) Arrival Mode Ambulatory,Cane Ambulatory,Cane Transfer Assistance None Accompanied by daughter Patient Identification Verified (Name & Yes Yes ) Patient Requires Transmission-Based No Precautions Finger Stick Blood Sugar(mg/dl) (if 210 indicated): Blood Sugar Done During this Visit Height and Weight Height 4 ft 11 in Weight 44.452 kg Weight in Pounds 98.0 lbs Weight Measurement Method Estimated by Patient Body Mass Index (BMI) 19.8 19.8 BMI Classification Normal Normal Vital Signs Temperature (97.8 F-99.1 F) 98.0 F 97.8 F Temperature Source Temporal Temporal Pulse Rate (60-100) 106 H 100 Pulse Location Monitor Monitor Respiratory Rate (12-18) 18 16 Respiratory rate source Observation Observation Oxygen Delivery Method Room Air Room Air Blood Pressure (90/60-120/80) 121/67 H 121/57 H Blood Pressure Mean (mm Hg) 85 78 Source Monitor Monitor Position Semi-Fowlers Sitting Blood Pressure Location Left Arm Right Arm History Since Last Visit- (Skip if this is Patient's initial visit) Have you changed medications since your No last visit? Any new allergies or adverse reactions No Had a fall/change in ADL's that may No increase risk of falls Signs or symptoms of abuse and/or No neglect since last visit Have you been in the hospital since your No last visit? Has dressing in place as prescribed Yes Left Footwear Surgical Shoe Regular Shoe with pressure relief insole Right Footwear Regular Shoe Surgical Shoe with pressure relief insole Pain Scale: 0-10 Numeric Is Patient Pain Free? Yes Yes - Nurse 1 - General Ulcer Measurement Start: 10/07/24 14:23 Freq: Status: Active Protocol: Activity Type Activity Date Activity User E-sign Co-sign Detail Recorded Client Recorded Date Recorded By Document 10/07/24 14:33 [id number] 10/07/24 14:37 Document 10/14/24 14:11 [facility] [id number] 10/14/24 14:16 BMF 10/07/24 10/14/24 14:33 14:11 Wound Center Nurse 1 #3 LT LAT FT -Combined with other wound No -Current Size (cm) - Length 1.5 1 -Current Size (cm) - Width 1 1.3 -Current Size (cm) - Depth 0.3 0.2 -Total Square Cm 1.5 1.3 -Date of Last Picture (Recall this 10/07/24 10/14/24 field) -Photo Taken Yes -Tunneling No -Undermining/Tunneling No -Circular Undermining No -Exudate Amt Medium Medium -Exudate Type Serosanguineous Serous -Wound Margin Distinct, Distinct, Outline Outline Attached Attached -Granulation Amt Large (67-100%) Large (67-100%) -Granulation Quality Belen Belen -Slough/Fibrin Yes -Necrosis Amt Small (1-33%) -Necrotic Tissue Type Adherent Slough -Texture (Edwina-wound Skin Appearance) Assessed,Callus Assessed,Callus ,Scarring -Moisture (Edwina-wound Skin Appearance) Assessed Assessed -Color (Edwina-wound Skin Appearance) Assessed Assessed -Temperature (Edwina-wound Skin No Abnormality No Abnormality Appearance) (Pt Warm) (Pt Warm) -Tenderness on Palpation (Edwina-wound No No Skin Appearance) -Ulcer Cleansing Soap and Water Rinsed/ Irrigated with Saline -Foul Odor after Cleansing No No -Anesthetic Used 5% Lidocaine 5% Lidocaine Gel Gel WC - Nurse 2 - General Ulcer CM Notes Start: 10/07/24 14:23 Freq: Status: Active Protocol: Activity Type Activity Date Activity User E-sign Co-sign Detail Recorded Client Recorded Date Recorded By Document 10/07/24 14:43 [id number] 10/07/24 14:52 Document 10/14/24 14:51 [id number] 10/14/24 14:54 10/07/24 10/14/24 14:43 14:51 Wound Center Nurse 2 #3 LT LAT FT -Time 14:47 14:51 -Correct Patient Yes Yes -Correct Side, Site, Position Yes Yes -Correct Procedure Yes Yes -Procedure Performed Yes Yes -Type of Procedure Debridement Debridement -Clinical Debridement Subcutaneous Muscle / Fascia -Tissue Removed Subcutaneous Muscle -Post Debridement (cm) - Length 1.4 1.2 -Post Debridement (cm) - Width 1.2 1.5 -Post Debridement (cm) - Depth 0.2 0.3 -Total Square (Post) (cm) 1.68 1.80 -Area of Debridement (cm) - Length 1.4 1.2 -Area of Debridement (cm) - Width 1.2 1.5 -Total Square (Area) (cm) 1.68 1.80 -Tunneling No No -Undermining/Tunneling No No -Circular Undermining No No -Wound/Ulcer Outcome Not Healed Not Healed -Ulcer Cleansing Rinsed/ Rinsed/ Irrigated with Irrigated with Saline Saline -Foul Odor after Cleansing No No -Bioengineered Tissue No No -Bleeding Controlled with Pressure Pressure -Treatment Response Procedure Procedure Tolerated Well Tolerated Well -Offloading Yes -Type of Offloading Surgical Shoe -Debridement - Subq, 1st 20sq cm Yes -Debridement - Muscle / Fascia, 1st Yes 20sq cm Pain Scale: 0-10 Numeric Is Patient Pain Free? Yes Yes - Nurse 3 - General Ulcer D/C NN Start: 10/07/24 14:23 Freq: Status: Active Protocol: Activity Type Activity Date Activity User E-sign Co-sign Detail Recorded Client Recorded Date Recorded By Document 10/07/24 15:09 [id number] 10/07/24 15:09 Document 10/14/24 15:00 [id number] 10/14/24 15:01 10/07/24 10/14/24 15:09 15:00 Wound Care Center Nurse 3 #3 LT LAT FT -Ulcer Cleansing Not Cleansed -Foul Odor after Cleansing No -Primary Dressing Applied AMD Dressing AMD Dressing 4x4 4x4 -Primary Dressing Covered/Secured with Dry Gauze & Dry Gauze,Dry Roll Gauze, Gauze & Roll Secured with Gauze,Secured Tape with Tape -AMD Dressing 4x4 1 1 Pain Scale: 0-10 Numeric Is Patient Pain Free? Yes Yes - Visit Discharge Discharge Condition Stable Stable Ambulatory Status Ambulatory,Cane Ambulatory,Cane Transportation Private Auto Private Auto Medication Reconcilliation completed & No provided to patient/care provider Clinical Summary of Care Provided Yes Assessment/Plan Assessment/Plan (1) Non-pressure chronic ulcer of other part of left foot with necrosis of muscle: CODE(S): L97.523 - Non-pressure chronic ulcer of other part of left foot with necrosis of muscle PLAN: Patient was examined and evaluated. All findings were discussed with the patient. All questions were answered to the patient's satisfaction. Excisional debridement down to including subcutaneous tissue, fascia and muscle with a number 3 mm dermal curette to the left subfifth metatarsal head ulceration without incident. Predebridement measurement was 1.1 x 1.2 x 0.1 cm. Postdebridement measurement is 1.2 x 1.5 x 0.3 cm. The left foot waswiped clean and patted dry. AMD pad was applied followed by dry sterile dressing and light compression wrap. Offloading pad was inserted into the patient's surgicalshoe and will change the dressing daily to every other day. Educated patient continue strict blood sugar control. Which she is understanding of. Patient will continue her doxycycline and Augmentin as prescribed. I did discuss further with the patient that I do recommend surgical interventionand MIS dorsiflexorosteotomy fifth metatarsal head to help heal and stabilize her wound. She will consider if there isdelayed in wound healing. Patient will follow-up in Dr. Otoole in 1 week (2) Chronic painful diabetic polyneuropathy: CODE(S): E11.42 - Type 2 diabetes mellitus with diabetic polyneuropathy 10/15/24 1440 Cosigner Signature (if applicable): CC: ~ Signed [facility]07-23-2025 History and physical note Author Andriy Otoole [facility] Note Date/Time October 07, 2024 4:46 pm [facility] [address] [place] [address] H&P Exam - Wound Care 10/07/24 1642 MR#: [id number] Acct: [id number] Name: SANJUANTIA JERRY Rep #:[id number] : 1965 59 From: Andriy Otoole D PM PCP: Dr. Art Herman MD Status :REG RCR Location: History of Present Illness Date of Service: 10/07/24 Chief Complaint: R BKA stump wound History of Wound: Sanjuanita Jerry is a 57 y/o female who presents to the wound healing center today for management of a right BKA stump wound. She is accompanied to the appointment today by her daughter who helps to supplement herhistory and also helps with her wound care. 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 At that time, they explored and washed out proximally in her thigh as well. Subsequently she initially had wound vac placed prior to secondary closure. She reports that the amputation site did ultimately heal fully and she was able to obtain a prosthetic. She had been doing very well withher prosthetic and getting back to work etc. Unfortunately about 1-2 months ago she developed a wound on her amputation stump due to the prosthetic rubbing in this area. She presented to the [facility] ER on 02/26/23 with concern of infection. She was admitted from 02/26-03/01 for IV antibiotics. Wound cultures were positive for staph aureus, blood cultures were negative. She was evaluated by orthopedics at that time as well. XR and CT scan performed during that admission were negative for signs of osteomyelitis. She was discharged with a course of Bactrim and referral here. At home, they have been doing daily dressing changes with iodoform and dry gauzedressing. Her daughter reports it has made significant improvement since her hospital stay. Progress of Wound: Patient is a 59-year-old diabetic female presenting to wound care center today for follow-up evaluation of left foot plantar full-thickness wound. Patient is well- known to [facility] podiatry and referred to the wound care center for expert care and treatment. Patient has been dealing with full-thickness wound for a couple of weeks now with treatment consisting of outpatient debridement by [facility] podiatry, hydrogel and offloading pad. Patient is diabetic with an A1c of 8.3%. She denies any pain to the left lower extremity. 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 Denies any drainage or malodor. Denies trauma. Denies constitutional symptoms. No other pedal complaints at this time. 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 Below knee amputation Dysphagia Acid reflux Diabetes Home Medications ?Medication ?Instructions ?Recorded ?Last Taken ?Type albuterol sulfate 90 mcg/actuation 2 puff inhalation Q 4H PRN Sob &/Or 10/01/18 Unknown History aerosol inhaler Wheezing atorvastatin 40 mg tablet 40 mg PO QHS cholesterol 03/0902/25/23 History cholecalciferol (vitamin D3) 25 25 mcg PO DAILY supple ment 02/26/23 02/25/23 History mcg (1,000 unit) tablet ferrous sulfate 325 mg (65 mg 325 mg PO DAILY suppleme nt 02/26/23 02/25/23 History iron) tablet (FeroSul) blood-glucose meter (True Metrix #1 ea 08/19/23 Unknow n Rx Glucose Meter) True Metrix Glucose Test Strip #50 ea 06/30/24 Unknown Rx (blood sugar diagnostic) insulin glargine 100 unit/mL (3 20 unit (0.2 mL) subcu t DAILY #15 07/25/24 Unknown Rx mL) subcutaneous pen (Lantus mL Solostar U-100 Insulin) insulin lispro 100 unit/mL 5 unit (0.05 mL) subcut TID AC #15 07/25/24 Unknown Rx subcutaneous pen (Humalog KwikPen mL (U-100) Insulin) lisinopril 10 mg tablet 10 mg PO DAILY #30 tabs 07/16 Unknown Rx loperamide 2 mg capsule 2 mg PO Q8 #0 caps 07/25/24 Unknown Rx blood-glucose sensor (Dexcom G7 #3 ea 08/06/24 Unknown Rx Sensor device) pen needle, diabetic 31 gauge x #100 ea 08/28/24 Unkno wn Rx 1/4" (1st Tier Unifine Pentips) folic acid 1 mg tablet 1 mg PO DAILY 10/07/24 Unkno wn History Allergy/AdvReac Type Severity Reaction Status Date / Time No Known Allergies Allergy Verified 08/26/24 10:57 Family History Grandmother Breast cancer Father Heart disease Hypertension Sister Thyroid disorder Aunt Thyroid disorder Other Arthritis CVA (cerebral vascular accident) Kidney disease Myocardial infarction Surgical History History of appendectomy Status post below knee amputation of right lower extremity history EGD with dilatation S/P appendectomy H/O thumb surgery Social History household members: family Smoking Status: Heavy Smoker (>10/day) alcohol intake: never substance use type: does not use what type of physical activity do you participate in: walking Vital Signs Vital Signs Vital Signs: 10/07/24 14:33 Temperature 98.0 F Temperature Source Temporal Pulse Rate 106 H Respiratory Rate 18 Blood Pressure 121/67 H Blood Pressure Mean 85 Blood Pressure Source Monitor Blood Pressure Position Semi-Fowlers Blood Pressure Location Left Arm Oxygen Delivery Method Room Air Weight Weight: 44.452 kg Body Mass Index (BMI) 19.8 Physical Exam Narrative Vascular: DP and PT pulses are palpable to the left lower extremity. CFT is brisk. Skin temperature gradient is warm to warm from proximal ankles to distaldigits of the left lower extremity. No increase in focal warmth or erythema is appreciated to the left lower extremity. Neurological: Light touch is intact. Protective sensation is diminished. Dermatological: Evidence of full-thickness wound appreciated the subfifth metatarsal head measuring 1.4 x 1.2 x 0.2 cm. Wound base is 100% granular nature. No drainage. No sign of infection. Excisional debridement down to including subcutaneous tissue with a number 3 mm dermal curette to the left subfifth metatarsal head ulceration without incident. Predebridement measurement was 1.2 x 1.0 x 0.1 cm. Postdebridement measurementis 1.4 x 1.2 x 0.2 cm. Musculoskeletal: Muscle strength 5 out of 5 in all quadrants to the left lower extremity. Cavus foot deformity is appreciated. Mild varus/supination deformity appreciated to the left foot when at rest. No pain on palpation to full- thickness wound left foot. Debridement Note Debridement Note Debridement Free Text: Excisional debridement down to including subcutaneous tissue with a number 3 mm dermal curette to the left subfifth metatarsal head ulceration without incident. Predebridement measurement was 1.2 x 1.0 x 0.1 cm. Postdebridement measurement is 1.4 x 1.2 x 0.2 cm. Post-Debridement Measurements and Additional Note: Post-Debridement Measurements/Treatment WC - Nurse 1 - General Ulcer Assessment Start: 10/07/24 14:23 Freq: Status: Active Protocol: APRIL Activity Type Activity Date Activity User E-sign Co-sign Detail Recorded Client Recorded Date Recorded By Document 10/07/24 14:33 KW [id number] 10/07/24 14:37 10/07/24 14:33 - Today's Visit Information Type of service Initial Visit Arrival Mode Ambulatory,Cane Accompanied by daughter Patient Identification Verified (Name & Yes ) Finger Stick Blood Sugar(mg/dl) (if 210 indicated): Blood Sugar Done During this Visit Height and Weight Height 4 ft 11 in Weight 44.452 kg Weight in Pounds 98.0 lbs Weight Measurement Method Estimated by Patient Body Mass Index (BMI) 19.8 BMI Classification Normal Vital Signs Temperature (97.8 F-99.1 F) 98.0 F Temperature Source Temporal Pulse Rate (60-100) 106 H Pulse Location Monitor Respiratory Rate (12-18) 18 Respiratory rate source Observation Oxygen Delivery Method Room Air Blood Pressure (90/60-120/80) 121/67 H Blood Pressure Mean 85 Source Monitor Position Semi-Fowlers Blood Pressure Location Left Arm History Since Last Visit- (Skip if this is Patient's initial visit) Left Footwear Surgical Shoe with pressure relief insole Right Footwear Regular Shoe Pain Scale: 0-10 Numeric Is Patient Pain Free? Yes - Nurse 1 - General Ulcer Measurement Start: 10/07/24 14:23 Freq: Status: Active Protocol: Activity Type Activity Date Activity User E-sign Co-sign Detail Recorded Client Recorded Date Recorded By Document 10/07/24 14:33 [id number] 10/07/24 14:37 10/07/24 14:33 Wound Center Nurse 1 #3 LT LAT FT -Current Size (cm) - Length 1.5 -Current Size (cm) - Width 1 -Current Size (cm) - Depth 0.3 -Total Square Cm 1.5 -Date of Last Picture (Recall this 10/07/24 field) -Exudate Amt Medium -Exudate Type Serosanguineous -Wound Margin Distinct, Outline Attached -Granulation Amt Large (67-100%) -Granulation Quality Belen -Texture (Edwina-wound Skin Appearance) Assessed,Callus -Moisture (Edwina-wound Skin Appearance) Assessed -Color (Edwina-wound Skin Appearance) Assessed -Temperature (Edwina-wound Skin No Abnormality Appearance) (Pt Warm) -Tenderness on Palpation (Edwina-wound No Skin Appearance) -Ulcer Cleansing Soap and Water -Foul Odor after Cleansing No -Anesthetic Used 5% Lidocaine Gel - Nurse 2 - General Ulcer CM Notes Start: 10/07/24 14:23 Freq: Status: Active Protocol: Activity Type Activity Date Activity User E-sign Co-sign Detail Recorded Client Recorded Date Recorded By Document 10/07/24 14:43 ALICIA [id number] 10/07/24 14:52 10/07/24 14:43 Wound Center Nurse 2 -Time 14:47 -Correct Patient Yes -Correct Side, Site, Position Yes -Correct Procedure Yes -Procedure Performed Yes -Type of Procedure Debridement -Clinical Debridement Subcutaneous -Tissue Removed Subcutaneous -Post Debridement (cm) - Length 1.4 -Post Debridement (cm) - Width 1.2 -Post Debridement (cm) - Depth 0.2 -Total Square (Post) (cm) 1.68 -Area of Debridement (cm) - Length 1.4 -Area of Debridement (cm) - Width 1.2 -Total Square (Area) (cm) 1.68 -Tunneling No -Undermining/Tunneling No -Circular Undermining No -Wound/Ulcer Outcome Not Healed -Ulcer Cleansing Rinsed/ Irrigated with Saline -Foul Odor after Cleansing No -Bioengineered Tissue No -Bleeding Controlled with Pressure -Treatment Response Procedure Tolerated Well -Debridement - Subq, 1st 20sq cm Yes Pain Scale: 0-10 Numeric Is Patient Pain Free? Yes - Nurse 3 - General Ulcer D/C NN Start: 10/07/24 14:23 Freq: Status: Active Protocol: Activity Type Activity Date Activity User E-sign Co-sign Detail Recorded Client Recorded Date Recorded By Document 10/07/24 15:09 [email or web address] [id number] 10/07/24 15:09 10/07/24 15:09 Wound Care Center Nurse 3 #3 LT LAT FT -Primary Dressing Applied AMD Dressing 4x4 -Primary Dressing Covered/Secured with Dry Gauze & Roll Gauze, Secured with Tape -AMD Dressing 4x4 1 Pain Scale: 0-10 Numeric Is Patient Pain Free? Yes - Visit Discharge Discharge Condition Stable Ambulatory Status Ambulatory,Cane Transportation Private Auto Medication Reconcilliation completed & No provided to patient/care provider Clinical Summary of Care Provided Yes Assessment/Plan Assessment/Plan (1) Non-pressure chronic ulcer of other part of left foot with fat layer exposed: CODE(S): L97.522 - Non-pressure chronic ulcer of other part of left foot with fat layer exposed PLAN: Patient was examined and evaluated. All findings were discussed with the patient. All questions were answered to the patient's satisfaction. Excisional debridement down to including subcutaneous tissue with a number 3 mm dermal curette to the left subfifth metatarsal head ulceration without incident. Predebridement measurement was 1.2 x 1.0 x 0.1 cm. Postdebridement measurementis 1.4 x 1.2 x 0.2 cm. The left foot was wiped clean and patted dry. AMD pad was applied followed by dry sterile dressing and light compression wrap. Offloading pad was inserted into the patient's surgical shoe and will change thedressing daily to every other day. Educated patient continue strict blood sugarcontrol. Which she is understanding of. Will move forward with authorization of the patient insurance for a nutrition consultation. I discussed with the patient surgical intervention consisting of fifth metatarsal head dorsiflexor osteotomy done MIS which we will hold off and continue conservative treatment until we see evidence of decreased healing. If the patient is not interested in surgical intervention and will let me know next week, we will move forward with surgical skin graft site application once we see decrease in wound healing. Patient will follow-up with Dr. Otoole in 1 week (2) Chronic painful diabetic polyneuropathy: CODE(S): E11.42 - Type 2 diabetes mellitus with diabetic polyneuropathy 10/07/246 <Electronically signed by Andriy Otoole DPM> Cosigner Signature (if applicable): CC: ~ Signed [facility] Work Phone: [phone] History and physical note [facility] [address] [place] [address] H&P Exam - Wound Care 10/07/24 1642 MR#: [id number] Acct: [id number] Name: SANJUANITA JERRY Rep #:[id number] : 1965 59 From: Andriy Otoole D PM PCP: Dr. Art Herman MD Status :REG RCR Location: History of Present Illness Date of Service: 10/07/24 Chief Complaint: R BKA stump wound History of Wound: Sanjuanita Jerry is a 57 y/o female who presents to the wound healing center today for management of a right BKA stump wound. She is accompanied to the appointment today by her daughter who helps to supplement herhistory and also helps with her wound care. 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 At that time, they explored and washed out proximally in her thigh as well. Subsequently she initially had wound vac placed prior to secondary closure. She reports that the amputation site did ultimately heal fully and she was able to obtain a prosthetic. She had been doing very well withher prosthetic and getting back to work etc. Unfortunately about 1-2 months ago she developed a wound on her amputation stump due to the prosthetic rubbing in this area. She presented to the [facility] ER on 02/26/23 with concern of infection. She was admitted from 02/26-03/01 for IV antibiotics. Wound cultures were positive for staph aureus, blood cultures were negative. She was evaluated by orthopedics at that time as well. XR and CT scan performed during that admissionwere negative for signs of osteomyelitis. She was discharged with a course of Bactrim and referral here. At home, they have been doing daily dressing changes with iodoform and dry gauzedressing. Her daughter reports it has made significant improvement since her hospital stay. Progress of Wound: Patient is a 59-year-old diabetic female presenting to wound care center today for follow-up evaluation of left foot plantar full-thickness wound. Patient is well-known to [facility] podiatry and referred to the wound care center for expert care and treatment. Patient has been dealing with full-thickness wound for a couple of weeks now with treatment consisting of outpatient debridement by [facility] podiatry, hydrogel and offloading pad. Patient is diabetic with an A1c of 8.3%. Shedenies any pain to the left lower extremity. 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 Denies any drainage or malodor. Denies trauma. Denies constitutional symptoms. No other pedal complaints at this time. 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 Below knee amputation Dysphagia Acid reflux Diabetes Home Medications ?Medication ?Instructions ?Recorded ?Last Taken ?Type albuterol sulfate 90 mcg/actuation 2 puff inhalation Q 4H PRN Sob &/Or 10/01/18 Unknown History aerosol inhaler Wheezing atorvastatin 40 mg tablet 40 mg PO QHS cholesterol 03/0902/25/23 History cholecalciferol (vitamin D3) 25 25 mcg PO DAILY supple ment 02/26/23 02/25/23 History mcg (1,000 unit) tablet ferrous sulfate 325 mg (65 mg 325 mg PO DAILY suppleme nt 02/26/23 02/25/23 History iron) tablet (FeroSul) blood-glucose meter (True Metrix #1 ea 08/19/23 Unknow n Rx Glucose Meter) True Metrix Glucose Test Strip #50 ea 06/30/24 Unknown Rx (blood sugar diagnostic) insulin glargine 100 unit/mL (3 20 unit (0.2 mL) subcu t DAILY #15 07/25/24 Unknown Rx mL) subcutaneous pen (Lantus mL Solostar U-100 Insulin) insulin lispro 100 unit/mL 5 unit (0.05 mL) subcut TID AC #15 07/25/24 Unknown Rx subcutaneous pen (Humalog KwikPen mL (U-100) Insulin) lisinopril 10 mg tablet 10 mg PO DAILY #30 tabs 07/16 Unknown Rx loperamide 2 mg capsule 2 mg PO Q8 #0 caps 07/25/24 Unknown Rx blood-glucose sensor (Dexcom G7 #3 ea 08/06/24 Unknown Rx Sensor device) pen needle, diabetic 31 gauge x #100 ea 08/28/24 Unkno wn Rx 1/4" (1st Tier Unifine Pentips) folic acid 1 mg tablet 1 mg PO DAILY 10/07/24 Unkno wn History Allergy/AdvReac Type Severity Reaction Status Date / Time No Known Allergies Allergy Verified 08/26/24 10:57 Family History Grandmother Breast cancer Father Heart disease Hypertension Sister Thyroid disorder Aunt Thyroid disorder Other Arthritis CVA (cerebral vascular accident) Kidney disease Myocardial infarction Surgical History History of appendectomy Status post below knee amputation of right lower extremity history EGD with dilatation S/P appendectomy H/O thumb surgery Social History household members: family Smoking Status: Heavy Smoker (>10/day) alcohol intake: never substance use type: does not use what type of physical activity do you participate in: walking Vital Signs Vital Signs Vital Signs: 10/07/24 14:33 Temperature 98.0 F Temperature Source Temporal Pulse Rate 106 H Respiratory Rate 18 Blood Pressure 121/67 H Blood Pressure Mean 85 Blood Pressure Source Monitor Blood Pressure Position Semi-Fowlers Blood Pressure Location Left Arm Oxygen Delivery Method Room Air Weight Weight: 44.452 kg Body Mass Index (BMI) 19.8 Physical Exam Narrative Vascular: DP and PT pulses are palpable to the left lower extremity. CFT is brisk. Skin temperaturegradient is warm to warm from proximal ankles to distaldigits of the left lower extremity. No increase in focal warmth or erythema is appreciated to the left lower extremity. Neurological: Light touch is intact. Protective sensation is diminished. Dermatological: Evidence of full-thickness wound appreciated the subfifth metatarsal head measuring1.4 x 1.2 x 0.2 cm. Wound base is 100% granular nature. No drainage. No sign of infection. Excisional debridement down to including subcutaneous tissue with a number 3 mm dermal curette to the left subfifth metatarsal head ulceration without incident. Predebridement measurement was 1.2 x 1.0 x 0.1 cm. Postdebridement measurementis 1.4 x 1.2 x 0.2 cm. Musculoskeletal: Muscle strength 5 out of 5 in all quadrants to the left lower extremity. Cavus foot deformity is appreciated. Mild varus/supination deformity appreciated to the left foot when at rest. No pain on palpation to full- thickness wound left foot. Debridement Note Debridement Note Debridement Free Text: Excisional debridement down to including subcutaneous tissue with a number 3mm dermal curette to the left subfifth metatarsal head ulceration without incident. Predebridement measurement was 1.2 x 1.0 x 0.1 cm. Postdebridement measurement is 1.4 x 1.2 x 0.2 cm. Post-Debridement Measurements and Additional Note: Post-Debridement Measurements/Treatment WC - Nurse 1 - General Ulcer Assessment Start: 10/07/24 14:23 Freq: Status: Active Protocol: SUE.CELESTE Activity Type Activity Date Activity User E-sign Co-sign Detail Recorded Client Recorded Date Recorded By Document 10/07/24 14:33 KW [id number] 10/07/24 14:37 10/07/24 14:33 - Today's Visit Information Type of service Initial Visit Arrival Mode Ambulatory,Cane Accompanied by daughter Patient Identification Verified (Name & Yes ) Finger Stick Blood Sugar(mg/dl) (if 210 indicated): Blood Sugar Done During this Visit Height and Weight Height 4 ft 11 in Weight 44.452 kg Weight in Pounds 98.0 lbs Weight Measurement Method Estimated by Patient Body Mass Index (BMI) 19.8 BMI Classification Normal Vital Signs Temperature (97.8 F-99.1 F) 98.0 F Temperature Source Temporal Pulse Rate (60-100) 106 H Pulse Location Monitor Respiratory Rate (12-18) 18 Respiratory rate source Observation Oxygen Delivery Method Room Air Blood Pressure (90/60-120/80) 121/67 H Blood Pressure Mean 85 Source Monitor Position Semi-Fowlers Blood Pressure Location Left Arm History Since Last Visit- (Skip if this is Patient's initial visit) Left Footwear Surgical Shoe with pressure relief insole Right Footwear Regular Shoe Pain Scale: 0-10 Numeric Is Patient Pain Free? Yes - Nurse 1 - General Ulcer Measurement Start: 10/07/24 14:23 Freq: Status: Active Protocol: Activity Type Activity Date Activity User E-sign Co-sign Detail Recorded Client Recorded Date Recorded By Document 10/07/24 14:33 [email or web address] [id number] 10/07/24 14:37 10/07/24 14:33 Wound Center Nurse 1 #3 LT LAT FT -Current Size (cm) - Length 1.5 -Current Size (cm) - Width 1 -Current Size (cm) - Depth 0.3 -Total Square Cm 1.5 -Date of Last Picture (Recall this 10/07/24 field) -Exudate Amt Medium -Exudate Type Serosanguineous -Wound Margin Distinct, Outline Attached -Granulation Amt Large (67-100%) -Granulation Quality Belen -Texture (Edwina-wound Skin Appearance) Assessed,Callus -Moisture (Edwina-wound Skin Appearance) Assessed -Color (Edwina-wound Skin Appearance) Assessed -Temperature (Edwina-wound Skin No Abnormality Appearance) (Pt Warm) -Tenderness on Palpation (Edwina-wound No Skin Appearance) -Ulcer Cleansing Soap and Water -Foul Odor after Cleansing No -Anesthetic Used 5% Lidocaine Gel - Nurse 2 - General Ulcer CM Notes Start: 10/07/24 14:23 Freq: Status: Active Protocol: Activity Type Activity Date Activity User E-sign Co-sign Detail Recorded Client Recorded Date Recorded By Document 10/07/24 14:43 [email or web address] [id number] 10/07/24 14:52 10/07/24 14:43 Wound Center Nurse 2 -Time 14:47 -Correct Patient Yes -Correct Side, Site, Position Yes -Correct Procedure Yes -Procedure Performed Yes -Type of Procedure Debridement -Clinical Debridement Subcutaneous -Tissue Removed Subcutaneous -Post Debridement (cm) - Length 1.4 -Post Debridement (cm) - Width 1.2 -Post Debridement (cm) - Depth 0.2 -Total Square (Post) (cm) 1.68 -Area of Debridement (cm) - Length 1.4 -Area of Debridement (cm) - Width 1.2 -Total Square (Area) (cm) 1.68 -Tunneling No -Undermining/Tunneling No -Circular Undermining No -Wound/Ulcer Outcome Not Healed -Ulcer Cleansing Rinsed/ Irrigated with Saline -Foul Odor after Cleansing No -Bioengineered Tissue No -Bleeding Controlled with Pressure -Treatment Response Procedure Tolerated Well -Debridement - Subq, 1st 20sq cm Yes Pain Scale: 0-10 Numeric Is Patient Pain Free? Yes - Nurse 3 - General Ulcer D/C NN Start: 10/07/24 14:23 Freq: Status: Active Protocol: Activity Type Activity Date Activity User E-sign Co-sign Detail Recorded Client Recorded Date Recorded By Document 10/07/24 15:09 KW [id number] 10/07/24 15:09 10/07/24 15:09 Wound Care Center Nurse 3 #3 LT LAT FT -Primary Dressing Applied AMD Dressing 4x4 -Primary Dressing Covered/Secured with Dry Gauze & Roll Gauze, Secured with Tape -AMD Dressing 4x4 1 Pain Scale: 0-10 Numeric Is Patient Pain Free? Yes - Visit Discharge Discharge Condition Stable Ambulatory Status Ambulatory,Cane Transportation Private Auto Medication Reconcilliation completed & No provided to patient/care provider Clinical Summary of Care Provided Yes Assessment/Plan Assessment/Plan (1) Non-pressure chronic ulcer of other part of left foot with fat layer exposed: CODE(S): L97.522 - Non-pressure chronic ulcer of other part of left foot with fat layer exposed PLAN: Patient was examined and evaluated. All findings were discussed with the patient. All questions were answered to the patient's satisfaction. Excisional debridement down to including subcutaneous tissue with a number 3 mm dermal curette to the left subfifth metatarsal head ulceration without incident. Predebridement measurement was 1.2 x 1.0 x 0.1 cm. Postdebridement measurementis 1.4 x 1.2 x 0.2 cm. The left foot was wiped clean and patted dry. AMD pad was applied followed by dry sterile dressing and light compression wrap. Offloadingpad was inserted into the patient's surgical shoe and will change thedressing daily to every other day. Educated patient continue strict blood sugarcontrol. Which she is understanding of. Will move forward with authorization of the patient insurance for a nutrition consultation. I discussed with the patient surgical intervention consisting of fifth metatarsal head dorsiflexor osteotomy done MIS which we will hold off and continue conservative treatment until we see evidence of decreased healing. If the patient is not interested in surgical intervention and will let me know next week, we will move forward with surgical skin graft site application once we see decrease in wound healing. Patient will follow-up with Dr. Otoole in 1 week (2) Chronic painful diabetic polyneuropathy: CODE(S): E11.42 - Type 2 diabetes mellitus with diabetic polyneuropathy 10/07/24 1646 Cosigner Signature (if applicable): CC: ~ Signed [facility]07-21-2025 History of Present illness Narrative* Deb Morales, RT(R) - 10/05/2024 10:00 AM EDT Radiology Service Progress Note PATIENT NAME: Sanjuanita Jerry DATE OF SERVICE: October 05, 2024 TIME: 10:30 AM PATIENT IDENTITY VERIFICATION COMPLETED USING TWO (2) IDENTIFIERS: Name and Date of confirmedby patient verbally. FALL SCREENING: Has the patient had 2 falls in the last year or 1 fall with injury or currently using an Ambulatory Assistive Device (Walker, Cane, Wheelchair, Crutches, etc.)? Yes, Patient High Riskfor Falls What interventions were put in place to prevent falls during this visit? Increased Observations by Caregivers PATIENT GENDER DATA: Assigned female at . status: : No status:NO. PATIENT RELEVANT IMPLANT DATA REVIEWED: Not Applicable PATIENT PRESENTS WITH AN IMPLANTABLE OR ATTACHED FREIGHT CLAIM INVESTIGATOR: [facility] RAD[facility] DEPARTMENT: General X-ray: Exam(s) Completed: Lower Extremity X- Ray(s): Foot, Left PERIPHERAL IV DATA: Not applicable SIGNED BY: RT Juan(R) October 05, 2024 10:30 AM documented [facility] NoteHNO ID: [id number] Author: DEB MORALES RT(R) Service: ? Author Type: Technologist Type: Progress Notes Filed: 10/05/2024 10:31 Note Text: Radiology Service Progress Note PATIENT NAME: Sanjuanita Jerry DATE OF SERVICE: October 05, 2024 TIME: 10:30 AM PATIENT IDENTITY VERIFICATION COMPLETED USING TWO (2) IDENTIFIERS: Name and Date of confirmed by patient verbally. FALL SCREENING: Has the patient had 2 falls in the last year or 1 fall with injury or currently using an Ambulatory Assistive Device (Walker, Cane, Wheelchair, Crutches, etc.)? Yes, Patient High Risk for Falls What interventions were put in place to prevent falls during this visit? Increased Observations by Caregivers PATIENT GENDER DATA: Assigned female at . status: : No status: NO. PATIENT RELEVANT IMPLANT DATA REVIEWED: Not Applicable PATIENT PRESENTS WITH AN IMPLANTABLE OR ATTACHED FREIGHT CLAIM INVESTIGATOR: Yes [facility] RADIOLOGY DEPARTMENT: General X-ray: Exam(s) Completed: Lower Extremity X-Ray(s): Foot, Left PERIPHERAL IV DATA: Not applicable SIGNED BY: RT Juan(R) October 05, 2024 10:30 [facility]07-17-2025 NoteHNO ID: [id number] Author: KEDAR LONG, ? Service: ? Author Type: Physician Type: Progress Notes Filed: 10/01/2024 22:52 Note Text: Subjective Sanjuanita Jerry is a 59-year-old female with a history of diabetes mellitus, presenting for follow-up of a left foot ulceration. Left Foot Ulceration: - Ulceration on the plantar aspect of the left metatarsal first noted on 08/20 after scraping down a callus. - Initially treated with Santyl, but switched to Hydrogel due to insurance coverage issues. - Ulcer measured 9 mm x 9 mm at last visit; currently measures 1.1 cm x 1.2 cm. - Denies trauma or injury to the area. - Wearing a surgical shoe consistently when ambulating. - Expresses frustration with the healing process. Diabetes Mellitus: - Last HbA1c was 8.3% in July; previously 13%. - Using Dexcom for glucose monitoring. - Reports good glycemic control. - History of right below knee amputation performed by Dr. Riggs. Skin: (+) left foot ulcer Psychiatric: (+) anxiety PAST MEDICAL HISTORY Diagnosis Date Cataracts, bilateral s/p surgery in 2021 at [facility] Coronary artery calcification 11/[address] chest Diabetic neuropathy ([facility]) Folic acid deficiency Gas gangrene of lower extremity ([facility]) Goiter, unspecified 09/29/2007 Hypokalemia Hypomagnesemia Known medical problems rt BKA PAD (peripheral artery disease) S/P BKA (below knee amputation) ([facility]) 05/31/2022 right Tobacco use disorder Type II or unspecified type diabetes mellitus without mention of complication, uncontrolled Endo: Dr. Madrigal Current Outpatient Medications Medication Sig Dispense Refill gel dressing (CARRASYN HYDROGEL WOUND DRESS) topical Apply to affected area once daily. 28 g 1 Cholecalciferol, Vitamin D3, (VITAMIN D) 25 mcg (1,000 unit) cap Take 2 capsules by mouth once daily. Taking 2,000 units daily 180 capsule 1 LANTUS SOLOSTAR U-100 INSULIN 100 unit/mL (3 mL) Inject 15 Units subcutaneously every morning. insulin lispro (HUMALOG KWIKPEN) 100 unit/mL Inject 5 Units subcutaneously three times a day before meals. atorvastatin (LIPITOR) 40 mg tablet Take 1 tablet by mouth daily at bedtime. For cholesterol. 90 tablet 3 lisinopril (ZESTRIL) 5 mg tablet Take 1 tablet by mouth once daily. 90 tablet 3 ferrous sulfate 325 mg (65 mg iron) tablet Take 1 tablet by mouth once daily. 90 tablet 1 calcium carbonate (CALTRATE) 600 mg calcium (1,500 mg) tab Take 1,200 mg by mouth once daily. aspirin, enteric coated (ASPIRIN, ENTERIC COATED) 81 mg EC tablet Take 81 mg by mouth once daily. albuterol HFA (PROVENTIL HFA, VENTOLIN HFA) 90 mcg/actuation inhaler Inhale 2 Puffs as instructed every 4 hours as needed for wheezing/shortness of breath. 1 Each 3 DEXCOM G7 SENSOR taryn as directed. collagenase (SANTYL) ointment Apply to affected area once daily. APPLY TO AFFECTED AREA 30 g 1 Magnesium Chloride (SLOW-MAG) 71.5 mg TbEC Take 2 tablets by mouth once daily. (Patient not taking: Reported on 08/20/2024) 60 tablet 0 glipiZIDE (GLUCOTROL) 5 mg tablet Take 5 mg by mouth two times a day before meals. (Patient not taking: Reported on 08/20/2024) blood sugar diagnostic(TRUETRACK TEST STRIPS) Test blood sugars twice daily. 100 11 blood-glucose meter(TRUETRACK BLOOD GLUCOSE SYSTEM KIT) Test glucose as directed 1 0 blood-glucose control, low(TRUETRACK GLUCOSE SOLN) Test controls as needed 1 3 LANCETS Test blood sugars once daily, 250.00, non insulin dep 100 11 No current facility-administered medications for this visit. Family History Problem Relation Age of Onset Stroke Mother Ischemic Heart Disease Mother Diabetes Mother Hypertension Mother Stroke Father Ischemic Heart Disease Father Hypertension Father Diabetes Father Kidney failure Sister Ischemic Heart Disease Brother Massive [place] at age 38 Breast Cancer Paternal Grandmother Objective Last menstrual period 09/16/2007. - Cardiovascular: Dorsalis pedis and posterior tibial pulses palpable in the left foot; capillary refill time <5 seconds. - Skin: Skin temperature warm from proximal to distal; no erythema noted. - Dermatological: - Plantar aspect of the left fifth metatarsal has an ulceration measuring 1.1 cm x 1.2 cm with fibrotic slough in the base and a periwound callus along the fifth metatarsal head. - Small calluses noted along the lateral aspect of the proximal phalanx of the fourth toe. - Calluses noted on the left hallux and left first metatarsal. Labs: - (July) Hemoglobin A1c: 8.3 - Hemoglobin A1c: 13.x Imaging: - (09/01) X-ray, left foot: No evidence of osteomyelitis - Circulation studies: Adequate blood flow Assessment AND Plan 1. Ulcer of toe of left foot, with fat layer exposed ([facility]) (L97.522) - Ulceration on the plantar aspect of the left metatarsal has increased in size, now measuring 1.1 cm x 1.2 cm. Presence of fibrotic slough in the base of the wound with a periwound callus (more content not included)...[facility]07-17-2025 History of Present illness Narrative* Kedar Long - 10/01/2024 10:51 PM EDT Subjective Sanjuanita Jerry is a 59-year-old female with a history of diabetes mellitus, presenting for follow-up of a left foot ulceration. Left Foot Ulceration: - Ulceration on the plantar aspect of the left metatarsal first noted on 08/20 after scraping down a callus. - Initially treated with Santyl, but switched to Hydrogel due to insurance coverage issues. - Ulcer measured 9 mm x 9 mm at last visit; currently measures 1.1 cm x 1.2 cm. - Denies trauma or injury to the area. - Wearing a surgical shoe consistently when ambulating. - Expresses frustration with the healing process. Diabetes Mellitus: - Last HbA1c was 8.3% in July; previously 13%. - Using Dexcom for glucose monitoring. - Reports good glycemic control. - History of right below knee amputation performed by Dr. Riggs. Skin: (+) left foot ulcer Psychiatric: (+) anxiety PAST MEDICAL HISTORY Diagnosis Date Cataracts, bilateral s/p surgery in 2021 at [facility] Coronary artery calcification 11/[address] chest Diabetic neuropathy ([facility]) Folic acid deficiency Gas gangrene of lower extremity ([facility]) Goiter, unspecified 09/29/2007 Hypokalemia Hypomagnesemia Known medical problems rt BKA PAD (peripheral artery disease) S/P BKA (below knee amputation) ([facility]) 05/31/2022 right Tobacco use disorder Type II or unspecified type diabetes mellitus without mention of complication, uncontrolled Endo: Dr. Madrigal Current Outpatient Medications Medication Sig Dispense Refill gel dressing (CARRASYN HYDROGEL WOUND DRESS) topical Apply to affected area once daily. 28 g 1 Cholecalciferol, Vitamin D3, (VITAMIN D) 25 mcg (1,000 unit) cap Take 2 capsules by mouth once daily. Taking 2,000 units daily 180 capsule 1 LANTUS SOLOSTAR U-100 INSULIN 100 unit/mL (3 mL) Inject 15 Units subcutaneously every morning. insulin lispro (HUMALOG KWIKPEN) 100 unit/mL Inject 5 Units subcutaneously three times a day beforemeals. atorvastatin (LIPITOR) 40 mg tablet Take 1 tablet by mouth daily at bedtime. For cholesterol. 90 tablet 3 lisinopril (ZESTRIL) 5 mg tablet Take 1 tablet by mouth once daily. 90 tablet 3 ferrous sulfate 325 mg (65 mg iron) tablet Take 1 tablet by mouth once daily. 90 tablet 1 calcium carbonate (CALTRATE) 600 mg calcium (1,500 mg) tab Take 1,200 mg by mouth once daily. aspirin, enteric coated (ASPIRIN, ENTERIC COATED) 81 mg EC tablet Take 81 mg by mouth once daily. albuterol HFA (PROVENTIL HFA, VENTOLIN HFA) 90 mcg/actuation inhaler Inhale 2 Puffs as instructed every 4 hours as needed for wheezing/shortness of breath. 1 Each 3 Freightos G7 SENSOR taryn as directed. collagenase (SANTYL) ointment Apply to affected area once daily. APPLY TO AFFECTED AREA 30 g 1 Magnesium Chloride (SLOW-MAG) 71.5 mg TbEC Take 2 tablets by mouth once daily. (Patient not taking:Reported on 08/20/2024) 60 tablet 0 glipiZIDE (GLUCOTROL) 5 mg tablet Take 5 mg by mouth two times a day before meals. (Patient not taking: Reported on 08/20/2024) blood sugar diagnostic(TRUETRACK TEST STRIPS) Test blood sugars twice daily. 100 11 blood-glucose meter(TRUETRACK BLOOD GLUCOSE SYSTEM KIT) Test glucose as directed 1 0 blood-glucose control, low(TRUETRACK GLUCOSE SOLN) Test controls as needed 1 3 LANCETS Test blood sugars once daily, 250.00, non insulin dep 100 11 No current facility-administered medications for this visit. Family History Problem Relation Age of Onset Stroke Mother Ischemic Heart Disease Mother Diabetes Mother Hypertension Mother Stroke Father Ischemic Heart Disease Father Hypertension Father Diabetes Father Kidney failure Sister Ischemic Heart Disease Brother Massive [place] at age 38 Breast Cancer Paternal Grandmother Objective Last menstrual period 09/16/2007. - Cardiovascular: Dorsalis pedis and posterior tibial pulses palpable in the left foot; capillary refill time <5 seconds. - Skin: Skin temperature warm from proximal to distal; no erythema noted. - Dermatological: - Plantar aspect of the left fifth metatarsal has an ulceration measuring 1.1 cm x 1.2 cm with fibrotic slough in the base and a periwound callus along the fifth metatarsal head. - Small calluses noted along the lateral aspect of the proximal phalanx of the fourth toe. - Calluses noted on the left hallux and left first metatarsal. Labs: - (July) Hemoglobin A1c: 8.3 - Hemoglobin A1c: 13.x Imaging: - (09/01) X-ray, left foot: No evidence of osteomyelitis - Circulation studies: Adequate blood flow Assessment & Plan 1. Ulcer of toe of left foot, with fat layer exposed ([facility]) (L97.522) - Ulceration on the plantar aspect of the left metatarsal has increased in size, now measuring 1.1 cm x 1.2 cm. Presence of fibrotic slough in the base of the wound with a periwound callus along the fifth metatarsal head. - Previous treatment with Santyl was not covered by insurance; currently using Hydrogel. - Debrided wound thru subcutaneous tissue with tissue nippers. total debridement was 1.1 cm x 1.2 cm. bleeding was present and controlled with pressure. - Educated patient on the importance of daily cleaning with soap and water, drying thoroughly, and applying Hydrogel. - Advised continuation of wearing the surgical shoe at all times when the foot is on the floor. - Discussed referral to the wound center for a second opinion. discussed other future options including skin substitutes but the wound needs to be more granular prior to any discussion on graftins - Ordered X-ray of the left foot to rule out osteomyelitis; patient to complete imaging at their earliest convenience. - informed patient that she is at risk of partial 5th ray resection if this wound fails to heal 3. callus - reduced callus to left 4th toe with 15 blade - reduced callus to left 1st metatarsal and left hallux with murrayel can follow-up in this clinic in the next 2 weeks but will have her present to wound center for 2nd opinion. Recording using Booklr software for draft documentation of the visit was discussed with the patient/authorized practice representative; all questions welcomed and answered. Patient/authorized practice representative agreed to proceed Kedar Long DPM * Emelyn Cee LPN - 10/01/2024 2:[address] Long, Sanjuanita wound was dressed with antibiotic ointment, non adherent Telfa and 4 in rollgauze. instructed/educated in its application, wear, and care. All questions were answered, and patient was able to demonstrate competence with the necessary skills to utilize the above equipment. Emelyn Cee LPN * Giovanny Morelos RN - 10/01/2024 1:24 PM EDT Patient presents with: Left Foot - Established Patient, Follow Up, Diabetic Foot Ulcer [facility] NoteHNO ID: [id number] Author: EMELYN CEE LPN Service: ? Author Type: LICENSED NURSE Type: Progress Notes Filed: 10/01/2024 22:52 Note Text: Per Dr. Long, Sanjuanita wound was dressed with antibiotic ointment, non adherent Telfa and 4 in roll gauze. instructed/educated in its application, wear, and care. All questions were answered, and patient was able to demonstrate competence with the necessary skills to utilize the above equipment. [facility] Instructions* Patient Instructions* Kedar Long - 10/01/2024 2:07 PM EDT - Clean your left foot ulcer once daily with mild soap and water, pat it dry, then apply hydrogel and cover it with your surgical shoe whenever your foot touches the floor. - Continue wearing the surgical shoe at all times when standing or walking to offload pressure fromthe wound. - Schedule and attend a consultation at the wound center for a second opinion; they may have additional treatments or skin-substitute products we don t have in the office. - Obtain an x-ray of your left foot as soon as possible (tomorrow or at your earliest convenience) to check for any bone involvement. - Return to this clinic for follow-up in as scheduled to reassess wound healing; if the wound center recommends continuing current care, we will proceed with hydrogel and shoe offloading at those visits. documented in [facility]25 NoteHNO ID: [id number] Author: GIOVANNY MORELOS RN Service: ? Author Type: Registered Nurse Type: Progress Notes Filed: 10/01/2024 22:52 Note Text: Patient presents with: Left Foot - Established Patient, [facility] NoteHNO ID: [id number] Author: KEDAR LONG, ? Service: ? Author Type: Physician Type: Progress Notes Filed: 09/19/2024 14:44 Note Text: Subjective Sanjuanita Jerry is a 59-year-old female with a history of diabetes mellitus, presenting for follow-up of a left foot ulcer. Left Foot Ulcer: - Ulceration on the plantar aspect of Sanjuanita's left fifth metatarsal. - Initially measured 1.5 cm x 1.3 cm, decreased to 0.6 cm x 1.1 cm on 09/01. - Currently using Neosporin; unable to afford Santyl. - Wears a surgical shoe consistently; denies going barefoot. - Denies preference for wound center visits due to time constraints. Diabetes Mellitus: - Last HbA1c was 8.3% in August. PAST MEDICAL HISTORY Diagnosis Date Cataracts, bilateral s/p surgery in 2021 at [facility] Coronary artery calcification 11/[address] chest Diabetic neuropathy ([facility]) Folic acid deficiency Gas gangrene of lower extremity ([facility]) Goiter, unspecified 09/29/2007 Hypokalemia Hypomagnesemia Known medical problems rt BKA PAD (peripheral artery disease) S/P BKA (below knee amputation) ([facility]) 05/31/2022 right Tobacco use disorder Type II or unspecified type diabetes mellitus without mention of complication, uncontrolled Endo: Dr. Madrigal Current Outpatient Medications Medication Sig Dispense Refill gel dressing (CARRASYN HYDROGEL WOUND DRESS) topical Apply to affected area once daily. 28 g 1 Cholecalciferol, Vitamin D3, (VITAMIN D) 25 mcg (1,000 unit) cap Take 2 capsules by mouth once daily. Taking 2,000 units daily 180 capsule 1 DEXCOM G7 SENSOR taryn as directed. LANTUS SOLOSTAR U-100 INSULIN 100 unit/mL (3 mL) Inject 15 Units subcutaneously every morning. insulin lispro (HUMALOG KWIKPEN) 100 unit/mL Inject 5 Units subcutaneously three times a day before meals. collagenase (SANTYL) ointment Apply to affected area once daily. APPLY TO AFFECTED AREA 30 g 1 atorvastatin (LIPITOR) 40 mg tablet Take 1 tablet by mouth daily at bedtime. For cholesterol. 90 tablet 3 lisinopril (ZESTRIL) 5 mg tablet Take 1 tablet by mouth once daily. 90 tablet 3 Magnesium Chloride (SLOW-MAG) 71.5 mg TbEC Take 2 tablets by mouth once daily. (Patient not taking: Reported on 08/20/2024) 60 tablet 0 ferrous sulfate 325 mg (65 mg iron) tablet Take 1 tablet by mouth once daily. 90 tablet 1 calcium carbonate (CALTRATE) 600 mg calcium (1,500 mg) tab Take 1,200 mg by mouth once daily. aspirin, enteric coated (ASPIRIN, ENTERIC COATED) 81 mg EC tablet Take 81 mg by mouth once daily. albuterol HFA (PROVENTIL HFA, VENTOLIN HFA) 90 mcg/actuation inhaler Inhale 2 Puffs as instructed every 4 hours as needed for wheezing/shortness of breath. 1 Each 3 glipiZIDE (GLUCOTROL) 5 mg tablet Take 5 mg by mouth two times a day before meals. (Patient not taking: Reported on 08/20/2024) blood sugar diagnostic(TRUETRACK TEST STRIPS) Test blood sugars twice daily. 100 11 blood-glucose meter(TRUETRACK BLOOD GLUCOSE SYSTEM KIT) Test glucose as directed 1 0 blood-glucose control, low(TRUETRACK GLUCOSE SOLN) Test controls as needed 1 3 LANCETS Test blood sugars once daily, 250.00, non insulin dep 100 11 No current facility-administered medications for this visit. Family History Problem Relation Age of Onset Stroke Mother Ischemic Heart Disease Mother Diabetes Mother Hypertension Mother Stroke Father Ischemic Heart Disease Father Hypertension Father Diabetes Father Kidney failure Sister Ischemic Heart Disease Brother Massive [place] at age 38 Breast Cancer Paternal Grandmother Objective Last menstrual period 09/16/2007. - Cardiovascular: DP and PT pulses palpable bilaterally; capillary refill <5 seconds. - Skin: - Left Foot: Warm temperature proximally and distally; diminished hair growth; callus/thickening on lateral aspect of fourth toe; small calluses on hallux and first metatarsal. - Ulceration on plantar aspect of fifth metatarsal measuring 9mm x 9mm; mixture of fibrotic and granular tissue. no exposed tendon or bone. no local signs of infection. Labs: No date - Hemoglobin A1c: 8.3 - Hemoglobin A1c: 8.5 Tests: (04/2024) Circulation Studies: - Left dorsal pedis RASHID: 1.10 - Left posterior tibial RASHID: 1.11 - Left great toe pressure: 0.71 Imaging: (09/01/2024) Left foot X-ray: Soft tissue swelling over the left fifth metatarsal; no cortical destruction suggestive of osteomyelitis. Assessment AND Plan 1. Ulcer of toe of left foot, with fat layer exposed (HCC) (L97.522) - Ulceration on the plantar aspect of the left fifth metatarsal, measuring 9 mm x 9 mm, with a mixture of fibrotic and granular tissue. - Previous x-rays from September 01, 2024, show soft tissue swelling over the left fifth metatarsal but no cortical destruction to suggest osteomyelitis. - Circulation studies from April 2024 demonstrate RASHID of the left dorsal pedis at 1.10, RASHID of the left posterior tibial tendon at 1.11, and toe (more content not included)...[facility]07-[facility] History of Present illness Narrative* Kedar Long - 09/19/2024 2:43 PM EDT Subjective Sanjuanita Jerry is a 59-year-old female with a history of diabetes mellitus, presenting for follow-up of a left foot ulcer. Left Foot Ulcer: - Ulceration on the plantar aspect of Sanjuanita's left fifth metatarsal. - Initially measured 1.5 cm x 1.3 cm, decreased to 0.6 cm x 1.1 cm on 09/01. - Currently using Neosporin; unable to afford Santyl. - Wears a surgical shoe consistently; denies going barefoot. - Denies preference for wound center visits due to time constraints. Diabetes Mellitus: - Last HbA1c was 8.3% in August. PAST MEDICAL HISTORY Diagnosis Date Cataracts, bilateral s/p surgery in 2021 at [facility] Coronary artery calcification 11/[address] chest Diabetic neuropathy (HCC) Folic acid deficiency Gas gangrene of lower extremity (HCC) Goiter, unspecified 09/29/2007 Hypokalemia Hypomagnesemia Known medical problems rt BKA PAD (peripheral artery disease) S/P BKA (below knee amputation) ([facility]) 05/31/2022 right Tobacco use disorder Type II or unspecified type diabetes mellitus without mention of complication, uncontrolled Endo: Dr. Madrigal Current Outpatient Medications Medication Sig Dispense Refill gel dressing (CARRASYN HYDROGEL WOUND DRESS) topical Apply to affected area once daily. 28 g 1 Cholecalciferol, Vitamin D3, (VITAMIN D) 25 mcg (1,000 unit) cap Take 2 capsules by mouth once daily. Taking 2,000 units daily 180 capsule 1 DEXCOM G7 SENSOR taryn as directed. LANTUS SOLOSTAR U-100 INSULIN 100 unit/mL (3 mL) Inject 15 Units subcutaneously every morning. insulin lispro (HUMALOG KWIKPEN) 100 unit/mL Inject 5 Units subcutaneously three times a day beforemeals. collagenase (SANTYL) ointment Apply to affected area once daily. APPLY TO AFFECTED AREA 30 g 1 atorvastatin (LIPITOR) 40 mg tablet Take 1 tablet by mouth daily at bedtime. For cholesterol. 90 tablet 3 lisinopril (ZESTRIL) 5 mg tablet Take 1 tablet by mouth once daily. 90 tablet 3 Magnesium Chloride (SLOW-MAG) 71.5 mg TbEC Take 2 tablets by mouth once daily. (Patient not taking:Reported on 08/20/2024) 60 tablet 0 ferrous sulfate 325 mg (65 mg iron) tablet Take 1 tablet by mouth once daily. 90 tablet 1 calcium carbonate (CALTRATE) 600 mg calcium (1,500 mg) tab Take 1,200 mg by mouth once daily. aspirin, enteric coated (ASPIRIN, ENTERIC COATED) 81 mg EC tablet Take 81 mg by mouth once daily. albuterol HFA (PROVENTIL HFA, VENTOLIN HFA) 90 mcg/actuation inhaler Inhale 2 Puffs as instructed every 4 hours as needed for wheezing/shortness of breath. 1 Each 3 glipiZIDE (GLUCOTROL) 5 mg tablet Take 5 mg by mouth two times a day before meals. (Patient not taking: Reported on 08/20/2024) blood sugar diagnostic(TRUETRACK TEST STRIPS) Test blood sugars twice daily. 100 11 blood-glucose meter(TRUETRACK BLOOD GLUCOSE SYSTEM KIT) Test glucose as directed 1 0 blood-glucose control, low(TRUETRACK GLUCOSE SOLN) Test controls as needed 1 3 LANCETS Test blood sugars once daily, 250.00, non insulin dep 100 11 No current facility-administered medications for this visit. Family History Problem Relation Age of Onset Stroke Mother Ischemic Heart Disease Mother Diabetes Mother Hypertension Mother Stroke Father Ischemic Heart Disease Father Hypertension Father Diabetes Father Kidney failure Sister Ischemic Heart Disease Brother Massive [place] at age 38 Breast Cancer Paternal Grandmother Objective Last menstrual period 09/16/2007. - Cardiovascular: DP and PT pulses palpable bilaterally; capillary refill <5 seconds. - Skin: - Left Foot: Warm temperature proximally and distally; diminished hair growth; callus/thickening onlateral aspect of fourth toe; small calluses on hallux and first metatarsal. - Ulceration on plantar aspect of fifth metatarsal measuring 9mm x 9mm; mixture of fibrotic and granular tissue. no exposed tendon or bone. no local signs of infection. Labs: No date - Hemoglobin A1c: 8.3 - Hemoglobin A1c: 8.5 Tests: (04/2024) Circulation Studies: - Left dorsal pedis RASHID: 1.10 - Left posterior tibial RASHID: 1.11 - Left great toe pressure: 0.71 Imaging: (09/01/2024) Left foot X-ray: Soft tissue swelling over the left fifth metatarsal; no cortical destruction suggestive of osteomyelitis. Assessment & Plan 1. Ulcer of toe of left foot, with fat layer exposed ([facility]) (L97.522) - Ulceration on the plantar aspect of the left fifth metatarsal, measuring 9 mm x 9 mm, with a mixture of fibrotic and granular tissue. - Previous x-rays from September 01, 2024, show soft tissue swelling over the left fifth metatarsal but no cortical destruction to suggest osteomyelitis. - Circulation studies from April 2024 demonstrate RASHID of the left dorsal pedis at 1.10, RASHID of the left posterior tibial tendon at 1.11, and toe pressures of the left great toe at 0.71. - Hemoglobin A1c last recorded at 8.3, indicating slow healing. - Performed sharp debridement with tissue nippers to remove fibrotic slough from the ulceration. total debridement was 9 mm x 9 mm x 2 mm - Discussed the use of Santyl, but cost prohibitive for the patient. bleeding was present and controlled with pressure. - Initiated treatment with hydrogel and Mai; instructed patient to clean the wound with saline, dry it, apply hydrogel, then Mai, and cover with gauze daily. - Continue wearing the surgical shoe at all times when the foot touches the floor. - Prescribed 28 gram tube of hydrogel with 1 refill, called into [facility]. - Follow-up appointment scheduled for October 01. - Discussed potential referral to the wound center if no improvement is seen in two weeks. Patient declined wound center presentation - Educated on the risks of prolonged ulceration, including potential bone infection and risk of losing the toe. 2. Callus of foot (L84) - Callus/thickening noted on the lateral aspect of the left fourth toe and small calluses on the left hallux and left first metatarsal. - callus was reduced with 15 blade Recording using Booklr software for draft documentation of the visit was discussed with the patient/authorized practice representative; all questions welcomed and answered. Patient/authorized practice representative agreed to proceed Kedar Long DPM * Emelyn Cee LPN - 09/17/2024 11:[address] Long, Sanjuanita wound was dressed with antibiotic ointment, mai, non adherent, 4 in roll gauze. instructed/educated in its application, wear, and care. All questions were answered, and patient was able to demonstrate competence with the necessary skills to utilize the above equipment. Emelyn Cee LPN * Emelyn Cee LPN - 09/17/2024 10:47 AM EDT AMB ROOMING INTAKE FLOWSHEET DATA Patient presents with: Left Foot - Established Patient, Follow Up, Diabetic Foot Ulcer Emelyn Cee LPN documented in this encounterSelect [facility]25 NoteHNO ID: [id number] Author: EMELYN CEE LPN Service: ? Author Type: LICENSED NURSE Type: Progress Notes Filed: 09/19/2024 14:44 Note Text: Per Dr. Long Sanjuanita wound was dressed with antibiotic ointment, mai, non adherent, 4 in roll gauze. instructed/educated in its application, wear, and care. All questions were answered, and patient was able to demonstrate competence with the necessary skills to utilize the above equipment. Emelyn Cee [facility]07-03-2025 Instructions* Patient Instructions* Kedar Long - 09/17/2024 11:14 AM EDT - A 28 g tube of hydrogel (with one refill) has been prescribed and submitted to the [facility] program for pickup. - Each day, clean the ulcer with saline, gently pat it dry, then apply a thin layer of hydrogel followed by a small amount of Mai. Cover with a clean gauze dressing. - Continue wearing your surgical shoe whenever your foot touches the floor; do not go barefoot. - Keep weight off the left foot as much as possible to aid healing. - Avoid smoking, as it can slow wound healing. - Your next wound check is scheduled for the (appointment already set). If the ulcer is not improving by that visit, you may be referred to the [facility] wound center for additional treatments. documented in this encounterSelect [facility]25 NoteHNO ID: [id number] Author: EMELYN CEE LPN Service: ? Author Type: LICENSED NURSE Type: Progress Notes Filed: 09/19/2024 14:44 Note Text: AMB ROOMING INTAKE FLOWSHEET DATA Patient presents with: Left Foot - Established Patient, Follow Up, Diabetic Foot Ulcer Emelyn Cee [facility]06-17-2025 NoteHNO ID: [id number] Author: KEDAR LONG, ? Service: ? Author Type: Physician Type: Progress Notes Filed: 09/01/2024 15:38 Note Text: Subjective Sanjuanita Jerry is a 59-year-old female with a history of diabetes mellitus, presenting for follow-up of a left foot ulceration. Left Foot Ulceration: - Ulceration on the plantar aspect of the left foot, initially measuring 1.4 x 1.5 cm. - Currently applying Neosporin; unable to use Santyl due to insurance coverage issues. - Wears a surgical shoe but not consistently at home. - Denies using any other topical treatments. - Good blood flow to the foot; recent circulation studies showed dorsalis pedis at 1.10, posterior tibial at 1.11, and toe pressures at 0.71. Diabetes Mellitus: - A1c is 8.3. - Managed by an external provider. - Smokes less than half a pack of cigarettes per day. PAST MEDICAL HISTORY Diagnosis Date Cataracts, bilateral s/p surgery in 2021 at [facility] Coronary artery calcification 11/[address] chest Diabetic neuropathy ([facility]) Folic acid deficiency Gas gangrene of lower extremity ([facility]) Goiter, unspecified 09/29/2007 Hypokalemia Hypomagnesemia Known medical problems rt BKA PAD (peripheral artery disease) S/P BKA (below knee amputation) ([facility]) 05/31/2022 right Tobacco use disorder Type II or unspecified type diabetes mellitus without mention of complication, uncontrolled Endo: Dr. Madrigal Current Outpatient Medications Medication Sig Dispense Refill Cholecalciferol, Vitamin D3, (VITAMIN D) 25 mcg (1,000 unit) cap Take 2 capsules by mouth once daily. Taking 2,000 units daily 180 capsule 1 DEXCOM G7 SENSOR taryn as directed. LANTUS SOLOSTAR U-100 INSULIN 100 unit/mL (3 mL) Inject 15 Units subcutaneously every morning. insulin lispro (HUMALOG KWIKPEN) 100 unit/mL Inject 5 Units subcutaneously three times a day before meals. collagenase (SANTYL) ointment Apply to affected area once daily. APPLY TO AFFECTED AREA 30 g 1 atorvastatin (LIPITOR) 40 mg tablet Take 1 tablet by mouth daily at bedtime. For cholesterol. 90 tablet 3 lisinopril (ZESTRIL) 5 mg tablet Take 1 tablet by mouth once daily. 90 tablet 3 ferrous sulfate 325 mg (65 mg iron) tablet Take 1 tablet by mouth once daily. 90 tablet 1 calcium carbonate (CALTRATE) 600 mg calcium (1,500 mg) tab Take 1,200 mg by mouth once daily. aspirin, enteric coated (ASPIRIN, ENTERIC COATED) 81 mg EC tablet Take 81 mg by mouth once daily. albuterol HFA (PROVENTIL HFA, VENTOLIN HFA) 90 mcg/actuation inhaler Inhale 2 Puffs as instructed every 4 hours as needed for wheezing/shortness of breath. 1 Each 3 blood sugar diagnostic(TRUETRACK TEST STRIPS) Test blood sugars twice daily. 100 11 blood-glucose meter(TRUETRACK BLOOD GLUCOSE SYSTEM KIT) Test glucose as directed 1 0 blood-glucose control, low(TRUETRACK GLUCOSE SOLN) Test controls as needed 1 3 LANCETS Test blood sugars once daily, 250.00, non insulin dep 100 11 Magnesium Chloride (SLOW-MAG) 71.5 mg TbEC Take 2 tablets by mouth once daily. (Patient not taking: Reported on 08/20/2024) 60 tablet 0 glipiZIDE (GLUCOTROL) 5 mg tablet Take 5 mg by mouth two times a day before meals. (Patient not taking: Reported on 08/20/2024) No current facility-administered medications for this visit. Family History Problem Relation Age of Onset Stroke Mother Ischemic Heart Disease Mother Diabetes Mother Hypertension Mother Stroke Father Ischemic Heart Disease Father Hypertension Father Diabetes Father Kidney failure Sister Ischemic Heart Disease Brother Massive [place] at age 38 Breast Cancer Paternal Grandmother Objective Last menstrual period 09/16/2007. - Cardiovascular: Dorsalis pedis and posterior tibial pulses palpable on the left foot; capillary refill time <5 seconds. - Skin: Skin temperature warm; diminished hair growth on toes. - Neurological: Protective sensation intact on the left foot. - Musculoskeletal: - Left Foot: - Ulceration on the plantar aspect measuring 6mm x 1.1cm with black-brown coloration. Labs: (no date) HbA1c: 8.3 Tests: (April) Noninvasive vascular study, left leg: - Dorsalis pedis index: 1.10 - Posterior tibial index: 1.11 - Toe pressures: 0.71 Assessment AND Plan 1. Ulcer of toe of left foot, with fat layer exposed ([facility]) (L97.522) - Ulceration on the plantar aspect of the left foot, previously measured 1.5 x 1.3 cm, now measures 0.6 x 1.1 cm; showing signs of healing. - Debrided fibrotic tissue thru subcutaneous tissue with tissue nippers and 15 blade. total debridement was 1.1 cm x 0.6 cm x 2 mm. Bleeding was present and controlled with pressure and silver nitrate. - Patient has good circulation to the left foot; dorsalis pedis and posterior tibial pulses are palpable, capillary refill time is less than 5 seconds, and skin temperature is warm. - Patient's A1c is 8.3, which may impede healing; advised to maintain glycemic c (more content not included)...[facility]06-17-2025 History of Present illness Narrative* Kedar Long - 09/01/2024 3:37 PM EDT Subjective Sanjuanita Jerry is a 59-year-old female with a history of diabetes mellitus, presenting for follow-up of a left foot ulceration. Left Foot Ulceration: - Ulceration on the plantar aspect of the left foot, initially measuring 1.4 x 1.5 cm. - Currently applying Neosporin; unable to use Santyl due to insurance coverage issues. - Wears a surgical shoe but not consistently at home. - Denies using any other topical treatments. - Good blood flow to the foot; recent circulation studies showed dorsalis pedis at 1.10, posterior tibial at 1.11, and toe pressures at 0.71. Diabetes Mellitus: - A1c is 8.3. - Managed by an external provider. - Smokes less than half a pack of cigarettes per day. PAST MEDICAL HISTORY Diagnosis Date Cataracts, bilateral s/p surgery in 2021 at [facility] Coronary artery calcification 11/[address] chest Diabetic neuropathy ([facility]) Folic acid deficiency Gas gangrene of lower extremity ([facility]) Goiter, unspecified 09/29/2007 Hypokalemia Hypomagnesemia Known medical problems rt BKA PAD (peripheral artery disease) S/P BKA (below knee amputation) ([facility]) 05/31/2022 right Tobacco use disorder Type II or unspecified type diabetes mellitus without mention of complication, uncontrolled Endo: Dr. Madrigal Current Outpatient Medications Medication Sig Dispense Refill Cholecalciferol, Vitamin D3, (VITAMIN D) 25 mcg (1,000 unit) cap Take 2 capsules by mouth once daily. Taking 2,000 units daily 180 capsule 1 DEXCOM G7 SENSOR taryn as directed. LANTUS SOLOSTAR U-100 INSULIN 100 unit/mL (3 mL) Inject 15 Units subcutaneously every morning. insulin lispro (HUMALOG KWIKPEN) 100 unit/mL Inject 5 Units subcutaneously three times a day beforemeals. collagenase (SANTYL) ointment Apply to affected area once daily. APPLY TO AFFECTED AREA 30 g 1 atorvastatin (LIPITOR) 40 mg tablet Take 1 tablet by mouth daily at bedtime. For cholesterol. 90 tablet 3 lisinopril (ZESTRIL) 5 mg tablet Take 1 tablet by mouth once daily. 90 tablet 3 ferrous sulfate 325 mg (65 mg iron) tablet Take 1 tablet by mouth once daily. 90 tablet 1 calcium carbonate (CALTRATE) 600 mg calcium (1,500 mg) tab Take 1,200 mg by mouth once daily. aspirin, enteric coated (ASPIRIN, ENTERIC COATED) 81 mg EC tablet Take 81 mg by mouth once daily. albuterol HFA (PROVENTIL HFA, VENTOLIN HFA) 90 mcg/actuation inhaler Inhale 2 Puffs as instructed every 4 hours as needed for wheezing/shortness of breath. 1 Each 3 blood sugar diagnostic(TRUETRACK TEST STRIPS) Test blood sugars twice daily. 100 11 blood-glucose meter(TRUETRACK BLOOD GLUCOSE SYSTEM KIT) Test glucose as directed 1 0 blood-glucose control, low(TRUETRACK GLUCOSE SOLN) Test controls as needed 1 3 LANCETS Test blood sugars once daily, 250.00, non insulin dep 100 11 Magnesium Chloride (SLOW-MAG) 71.5 mg TbEC Take 2 tablets by mouth once daily. (Patient not taking:Reported on 08/20/2024) 60 tablet 0 glipiZIDE (GLUCOTROL) 5 mg tablet Take 5 mg by mouth two times a day before meals. (Patient not taking: Reported on 08/20/2024) No current facility-administered medications for this visit. Family History Problem Relation Age of Onset Stroke Mother Ischemic Heart Disease Mother Diabetes Mother Hypertension Mother Stroke Father Ischemic Heart Disease Father Hypertension Father Diabetes Father Kidney failure Sister Ischemic Heart Disease Brother Massive [place] at age 38 Breast Cancer Paternal Grandmother Objective Last menstrual period 09/16/2007. - Cardiovascular: Dorsalis pedis and posterior tibial pulses palpable on the left foot; capillary refill time <5 seconds. - Skin: Skin temperature warm; diminished hair growth on toes. - Neurological: Protective sensation intact on the left foot. - Musculoskeletal: - Left Foot: - Ulceration on the plantar aspect measuring 6mm x 1.1cm with black-brown coloration. Labs: (no date) HbA1c: 8.3 Tests: (April) Noninvasive vascular study, left leg: - Dorsalis pedis index: 1.10 - Posterior tibial index: 1.11 - Toe pressures: 0.71 Assessment & Plan 1. Ulcer of toe of left foot, with fat layer exposed (HCC) (L97.522) - Ulceration on the plantar aspect of the left foot, previously measured 1.5 x 1.3 cm, now measures0.6 x 1.1 cm; showing signs of healing. - Debrided fibrotic tissue thru subcutaneous tissue with tissue nippers and 15 blade. total debridement was 1.1 cm x 0.6 cm x 2 mm. Bleeding was present and controlled with pressure and silver nitrate. - Patient has good circulation to the left foot; dorsalis pedis and posterior tibial pulses are palpable, capillary refill time is less than 5 seconds, and skin temperature is warm. - Patient's A1c is 8.3, which may impede healing; advised to maintain glycemic control. - Smoking less than half a pack per day; educated on the negative impact of smoking on wound healing. - Continue using Neosporin for wound care; discussed alternative treatments such as Santyl, silver gel, and hydrogel. patient's insurance did not approve the santyl. she has elected to continue with the current cream. - Advised to wear a surgical shoe at all times to offload pressure from the wound. - Ordered an X-ray of the left foot to rule out osteomyelitis. - Follow-up in 2 weeks to monitor wound progress. Recording using Booklr software for draft documentation of the visit was discussed with the patient/authorized practice representative; all questions welcomed and answered. Patient/authorized practice representative agreed to proceed Kedar Long DPM * Miriam Del Angel RN - 09/01/2024 3:18 PM EDT Wound dressed with antibiotic ointment, Aquacel, and gauze wrap. * Miriam Del Angel RN - 09/01/2024 1:52 PM EDT Patient presents with: Left Foot - Established Patient, Follow Up, Diabetic Foot Ulcer Patient presents for follow up left foot diabetic ulcer. Was provided a surgical shoe with offloading insert at last visit. Ulcer to 5th metatarsal scabbed over at this time. DEXTER 08/20/24 [facility] NoteHNO ID: [id number] Author: MIRIAM DEL ANGEL RN Service: ? Author Type: Registered Nurse Type: Progress Notes Filed: 09/01/2024 15:38 Note Text: Wound dressed with antibiotic ointment, Aquacel, and gauze wrap.[facility]06-17[facility] History of Present illness Narrative* Radha Sandhu RT(Suresh) - 09/01/2024 2:50 PM EDT Radiology Service Progress Note PATIENT NAME: Sanjuanita Jerry DATE OF SERVICE: September 01, 2024 TIME: 2:41 PM PATIENT IDENTITY VERIFICATION COMPLETED USING TWO (2) IDENTIFIERS: Name and Date of confirmedby patient verbally. FALL SCREENING: Has the patient had 2 falls in the last year or 1 fall with injury or currently using an Ambulatory Assistive Device (Walker, Cane, Wheelchair, Crutches, etc.)? Yes, Patient High Riskfor Falls What interventions were put in place to prevent falls during this visit? Offered Assistance with Transfers/Clothing and Instructed Patient to Remain Seated (Not on Exam Table) Until Exam PATIENT GENDER DATA: Assigned female at . status: : No status:NO. PATIENT RELEVANT IMPLANT DATA REVIEWED: Not Applicable PATIENT PRESENTS WITH AN IMPLANTABLE OR ATTACHED FREIGHT CLAIM INVESTIGATOR: No RADIOLOGY DEPARTMENT: General X-ray: Exam(s) Completed: Lower Extremity X- Ray(s): Foot, Left PERIPHERAL IV DATA: Not applicable SIGNED BY: RT Marge(Suresh) September 01, 2024 2:41 PM documented in this encounterSelect [facility]25 NoteHNO ID: [id number] Author: VASU, RADHA, RT(R) Service: Radiology Author Type: Technologist Type: Progress Notes Filed: 09/01/2024 14:51 Note Text: Radiology Service Progress Note PATIENT NAME: Sanjuanita Jerry DATE OF SERVICE: September 01, 2024 TIME: 2:41 PM PATIENT IDENTITY VERIFICATION COMPLETED USING TWO (2) IDENTIFIERS: Name and Date of confirmed by patient verbally. FALL SCREENING: Has the patient had 2 falls in the last year or 1 fall with injury or currently using an Ambulatory Assistive Device (Walker, Cane, Wheelchair, Crutches, etc.)? Yes, Patient High Risk for Falls What interventions were put in place to prevent falls during this visit? Offered Assistance with Transfers/Clothing and Instructed Patient to Remain Seated (Not on Exam Table) Until Exam PATIENT GENDER DATA: Assigned female at . status: : No status: NO. PATIENT RELEVANT IMPLANT DATA REVIEWED: Not Applicable PATIENT PRESENTS WITH AN IMPLANTABLE OR ATTACHED FREIGHT CLAIM INVESTIGATOR: No RADIOLOGY DEPARTMENT: General X-ray: Exam(s) Completed: Lower Extremity X-Ray(s): Foot, Left PERIPHERAL IV DATA: Not applicable SIGNED BY: RT Marge(R) September 01, 2024 2:41 [facility]06-17-2025 Instructions* Patient Instructions* Kedar Long - 09/01/2024 2:20 PM EDT - Your ulcer was cleaned and debrided today (removed hard skin and scab) and silver nitrate was applied to help stop bleeding. - Continue wearing the surgical (off-loading) shoe every time your left foot touches the ground to keep pressure off the wound. - Clean the ulcer daily with mild soap and water, gently pat it dry, apply Neosporin triple-antibiotic ointment, and cover with fresh gauze. - Keep using the oreilly s-wool padding between your fourth and fifth toes to prevent rubbing. - Maintain your blood sugar control as directed by your diabetes provider, since high sugars can slow healing. - Aim for a balanced wound environment--avoid letting it become too wet or too dry; if drainage increases significantly or the wound seems overly dry, contact the office. - Obtain the left foot x-ray ordered today as a precaution against bone infection. - Return in two weeks for reassessment of ulcer size and healing progress. documented in this encounterSelect [facility]25 NoteHNO ID: [id number] Author: MIRIAM DEL ANGEL, RN Service: ? Author Type: Registered Nurse Type: Progress Notes Filed: 09/01/2024 15:38 Note Text: Patient presents with: Left Foot - Established Patient, Follow Up, Diabetic Foot Ulcer Patient presents for follow up left foot diabetic ulcer. Was provided a surgical shoe with offloading insert at last visit. Ulcer to 5th metatarsal scabbed over at this time. [facility] 08/20/24[facility] Telephone encounter Note* Telephone Encounter - Danya Motta - 08/31/2024 2:23 PM EDT Prescription Refill Information The patient has been identified by name and date of : Yes Caregiver verified no other encounters exist for this prescription request: Yes Caregiver confirmed with patient/requestor that no other refills are due, in the near future, with this provider at this time: Yes The last office visit in the department: Does the patient have a future office visit with this provider/department: Yes Requested Prescriptions Pending Prescriptions Disp Refills Cholecalciferol, Vitamin D3, (VITAMIN D) 25 mcg (1,000 unit) cap 180 capsule 1 Sig: Take 2 capsules by mouth once daily. Taking 2,000 units daily Danya Bhagat August 31, 2024 2:23 PM [facility]-16-2025 Miscellaneous Notes* Telephone Encounter - Danya Motta - 08/31/2024 2:23 PM EDT Prescription Refill Information The patient has been identified by name and date of : Yes Caregiver verified no other encounters exist for this prescription request: Yes Caregiver confirmed with patient/requestor that no other refills are due, in the near future, with this provider at this time: Yes The last office visit in the department: Does the patient have a future office visit with this provider/department: Yes Requested Prescriptions Pending Prescriptions Disp Refills Cholecalciferol, Vitamin D3, (VITAMIN D) 25 mcg (1,000 unit) cap 180 capsule 1 Sig: Take 2 capsules by mouth once daily. Taking 2,000 units daily Danya Bhagat August 31, 2024 2:23 PM documented in this encounterSelect [facility]-2025 NoteHNO ID: [id number] Author: KEDAR LONG, ? Service: ? Author Type: Physician Type: Progress Notes Filed: 08/20/2024 19:12 Note Text: Sina Keller is a 59-year-old female with a history of diabetes mellitus and right below-knee amputation, presenting for a diabetic foot exam and evaluation of a left foot wound. Diabetic Foot Exam: - Uses a Dexcom for glucose monitoring. - Developed a wound on the left foot after filing down calluses with a Pedi Egg on Saturday. - Applying topical antibiotic and Adaptic dressing to the wound. - Denies using surgical shoes. Musculoskeletal: (+) left foot pain Skin: (+) left foot sore PAST MEDICAL HISTORY Diagnosis Date Cataracts, bilateral s/p surgery in 2021 at [facility] Coronary artery calcification 11/[address] chest Diabetic neuropathy (HCC) Folic acid deficiency Gas gangrene of lower extremity (HCC) Goiter, unspecified 09/29/2007 Hypokalemia Hypomagnesemia Known medical problems rt BKA PAD (peripheral artery disease) S/P BKA (below knee amputation) (HCC) 05/31/2022 right Tobacco use disorder Type II or unspecified type diabetes mellitus without mention of complication, uncontrolled Endo: Dr. Madrigal Current Outpatient Medications Medication Sig Dispense Refill DEXCOM G7 SENSOR taryn as directed. LANTUS SOLOSTAR U-100 INSULIN 100 unit/mL (3 mL) Inject 15 Units subcutaneously every morning. insulin lispro (HUMALOG KWIKPEN) 100 unit/mL Inject 5 Units subcutaneously three times a day before meals. atorvastatin (LIPITOR) 40 mg tablet Take 1 tablet by mouth daily at bedtime. For cholesterol. 90 tablet 3 lisinopril (ZESTRIL) 5 mg tablet Take 1 tablet by mouth once daily. 90 tablet 3 ferrous sulfate 325 mg (65 mg iron) tablet Take 1 tablet by mouth once daily. 90 tablet 1 calcium carbonate (CALTRATE) 600 mg calcium (1,500 mg) tab Take 1,200 mg by mouth once daily. aspirin, enteric coated (ASPIRIN, ENTERIC COATED) 81 mg EC tablet Take 81 mg by mouth once daily. albuterol HFA (PROVENTIL HFA, VENTOLIN HFA) 90 mcg/actuation inhaler Inhale 2 Puffs as instructed every 4 hours as needed for wheezing/shortness of breath. 1 Each 3 Cholecalciferol, Vitamin D3, (VITAMIN D) 25 mcg (1,000 unit) cap Take 2 capsules by mouth once daily. Taking 2,000 units daily 180 capsule 1 blood sugar diagnostic(TRUETRACK TEST STRIPS) Test blood sugars twice daily. 100 11 blood-glucose meter(TRUETRACK BLOOD GLUCOSE SYSTEM KIT) Test glucose as directed 1 0 blood-glucose control, low(TRUETRACK GLUCOSE SOLN) Test controls as needed 1 3 LANCETS Test blood sugars once daily, 250.00, non insulin dep 100 11 collagenase (SANTYL) ointment Apply to affected area once daily. APPLY TO AFFECTED AREA 30 g 1 folic acid 1 mg tablet Take 1 tablet by mouth once daily. (Patient not taking: Reported on 08/20/2024) 90 tablet 0 Magnesium Chloride (SLOW-MAG) 71.5 mg TbEC Take 2 tablets by mouth once daily. (Patient not taking: Reported on 08/20/2024) 60 tablet 0 glipiZIDE (GLUCOTROL) 5 mg tablet Take 5 mg by mouth two times a day before meals. (Patient not taking: Reported on 08/20/2024) No current facility-administered medications for this visit. Family History Problem Relation Age of Onset Stroke Mother Ischemic Heart Disease Mother Diabetes Mother Hypertension Mother Stroke Father Ischemic Heart Disease Father Hypertension Father Diabetes Father Kidney failure Sister Ischemic Heart Disease Brother Massive [place] at age 38 Breast Cancer Paternal Grandmother Objective Last menstrual period 09/16/2007. - Cardiovascular: Dorsalis pedis and posterior tibial pulses palpable on the left foot; capillary refill time <5 seconds; skin temperature warm from proximal to distal; decreased hair growth on the left foot. - Skin: - Left Foot: - Calluses on the plantar aspect of the first metatarsal, left hallux interphalangeal joint, lateral aspect of the fourth toe, and medial aspect of the fifth toe. - ulceration of left 5th metatarsal with mix of fibrotic and granular tissue with periwoudn hyperkeratosis. wound measures 1.4 cm x 1.5 cm x 1 mm. no signs of infection - Toenails 1-5 show elongation with thickening. - Musculoskeletal: - Left Foot: - Mild bunion deformity of the hallux; slight adductor varus deformity of the fifth toe; hammer toe deformity noted. - Right Lower Extremity: Below-knee amputation. - Neurological: - Left Foot: - Intact light touch sensation; vibratory sensation absent. Assessment AND Plan 1. Onychomycosis (B35.1) - Toenails 1-5 of the left foot show elongation with thickening. - toenails 1-5 left debrided in length and thickness. q7 modifier. 2. History of below-knee amputation of right lower extremity (HCC) (Z89.511) - Non-traumatic below-knee amputation on the right lower extremity. - Discussed the importance of vigilant foot care to prevent further complications. 3. Callus of fo (more content not included)...[facility] 08-20-2024 History of Present illness Narrative* Kedar Long - 08/20/2024 7:11 PM EDT Sina Keller is a 59-year-old female with a history of diabetes mellitus and right below-knee amputation, presenting for a diabetic foot exam and evaluation of a left foot wound. Diabetic Foot Exam: - Uses a Dexcom for glucose monitoring. - Developed a wound on the left foot after filing down calluses with a Pedi Egg on Saturday. - Applying topical antibiotic and Adaptic dressing to the wound. - Denies using surgical shoes. Musculoskeletal: (+) left foot pain Skin: (+) left foot sore PAST MEDICAL HISTORY Diagnosis Date Cataracts, bilateral s/p surgery in 2021 at [facility] Coronary artery calcification 11/[address] chest Diabetic neuropathy ([facility]) Folic acid deficiency Gas gangrene of lower extremity ([facility]) Goiter, unspecified 09/29/2007 Hypokalemia Hypomagnesemia Known medical problems rt BKA PAD (peripheral artery disease) S/P BKA (below knee amputation) ([facility]) 05/31/2022 right Tobacco use disorder Type II or unspecified type diabetes mellitus without mention of complication, uncontrolled Endo: Dr. Madrigal Current Outpatient Medications Medication Sig Dispense Refill DEXCOM G7 SENSOR taryn as directed. LANTUS SOLOSTAR U-100 INSULIN 100 unit/mL (3 mL) Inject 15 Units subcutaneously every morning. insulin lispro (HUMALOG KWIKPEN) 100 unit/mL Inject 5 Units subcutaneously three times a day beforemeals. atorvastatin (LIPITOR) 40 mg tablet Take 1 tablet by mouth daily at bedtime. For cholesterol. 90 tablet 3 lisinopril (ZESTRIL) 5 mg tablet Take 1 tablet by mouth once daily. 90 tablet 3 ferrous sulfate 325 mg (65 mg iron) tablet Take 1 tablet by mouth once daily. 90 tablet 1 calcium carbonate (CALTRATE) 600 mg calcium (1,500 mg) tab Take 1,200 mg by mouth once daily. aspirin, enteric coated (ASPIRIN, ENTERIC COATED) 81 mg EC tablet Take 81 mg by mouth once daily. albuterol HFA (PROVENTIL HFA, VENTOLIN HFA) 90 mcg/actuation inhaler Inhale 2 Puffs as instructed every 4 hours as needed for wheezing/shortness of breath. 1 Each 3 Cholecalciferol, Vitamin D3, (VITAMIN D) 25 mcg (1,000 unit) cap Take 2 capsules by mouth once daily. Taking 2,000 units daily 180 capsule 1 blood sugar diagnostic(TRUETRACK TEST STRIPS) Test blood sugars twice daily. 100 11 blood-glucose meter(TRUETRACK BLOOD GLUCOSE SYSTEM KIT) Test glucose as directed 1 0 blood-glucose control, low(TRUETRACK GLUCOSE SOLN) Test controls as needed 1 3 LANCETS Test blood sugars once daily, 250.00, non insulin dep 100 11 collagenase (SANTYL) ointment Apply to affected area once daily. APPLY TO AFFECTED AREA 30 g 1 folic acid 1 mg tablet Take 1 tablet by mouth once daily. (Patient not taking: Reported on 08/20/2024) 90 tablet 0 Magnesium Chloride (SLOW-MAG) 71.5 mg TbEC Take 2 tablets by mouth once daily. (Patient not taking:Reported on 08/20/2024) 60 tablet 0 glipiZIDE (GLUCOTROL) 5 mg tablet Take 5 mg by mouth two times a day before meals. (Patient not taking: Reported on 08/20/2024) No current facility-administered medications for this visit. Family History Problem Relation Age of Onset Stroke Mother Ischemic Heart Disease Mother Diabetes Mother Hypertension Mother Stroke Father Ischemic Heart Disease Father Hypertension Father Diabetes Father Kidney failure Sister Ischemic Heart Disease Brother Massive [place] at age 38 Breast Cancer Paternal Grandmother Objective Last menstrual period 09/16/2007. - Cardiovascular: Dorsalis pedis and posterior tibial pulses palpable on the left foot; capillary refill time <5 seconds; skin temperature warm from proximal to distal; decreased hair growth on the left foot. - Skin: - Left Foot: - Calluses on the plantar aspect of the first metatarsal, left hallux interphalangeal joint, lateral aspect of the fourth toe, and medial aspect of the fifth toe. - ulceration of left 5th metatarsal with mix of fibrotic and granular tissue with periwoudn hyperkeratosis. wound measures 1.4 cm x 1.5 cm x 1 mm. no signs of infection - Toenails 1-5 show elongation with thickening. - Musculoskeletal: - Left Foot: - Mild bunion deformity of the hallux; slight adductor varus deformity of the fifth toe; hammer toedeformity noted. - Right Lower Extremity: Below-knee amputation. - Neurological: - Left Foot: - Intact light touch sensation; vibratory sensation absent. Assessment & Plan 1. Onychomycosis (B35.1) - Toenails 1-5 of the left foot show elongation with thickening. - toenails 1-5 left debrided in length and thickness. q7 modifier. 2. History of below-knee amputation of right lower extremity (HCC) (Z89.511) - Non-traumatic below-knee amputation on the right lower extremity. - Discussed the importance of vigilant foot care to prevent further complications. 3. Callus of foot (L84) - Calluses noted on the plantar aspect of the left first metatarsal, plantar aspect of the left hallux interphalangeal joint, lateral aspect of the left fourth toe, and medial aspect of the left fifth toe. - Advised patient to use caution when filing calluses and to keep feet moisturized. - Offered to file down calluses every 3-4 weeks if needed. - callus of left hallux, left 1st metatarsal, left 4th toe and left 5th toe reduced with 15 blade. 4. Hammertoe of left foot (M20.42) - Mild bunion deformity to the left big toe and slight adductor varus deformity of the left fifth toe observed. - Discussed options to prevent rubbing, including placing something between the toes. - Surgical options discussed but not pursued at this time. 5. Diabetic polyneuropathy associated with type 2 diabetes mellitus (HCC) (E11.42) - Sensory loss noted in the left foot. - Educated on the importance of avoiding barefoot walking and wearing appropriate footwear. - Monitoring blood glucose levels with Dexcom. 6. Ulcer of toe of left foot, limited to breakdown of skin ([facility]) (L97.521) - Superficial abrasion to the left fifth metatarsal head with periwound callusing; no signs of infection. - Debrided wound with 15 blade measuring 1.4 cm x 1.5 cm and less than 1 mm in depth. - Prescribed Santyl collagenase 30g tube, apply to the wound daily, cover with [employer] and roll gauze. - Called prescription into [facility] in [place]. - Advised to use a surgical shoe with an insert to offload pressure from the wound. - Discussed the potential need for an X-ray to rule out bone infection if healing does not progress. Recording using Booklr software for draft documentation of the visit was discussed with the patient/authorized practice representative; all questions welcomed and answered. Patient/authorized practice representative agreed to proceed Kedar Long DPM * Miriam Del Angel RN - 08/20/2024 11:04 AM EDT Patient presents with: Left Foot - Established Patient, Follow Up, Diabetic Foot Care, Diabetic Foot Ulcer Patient presents for follow up diabetic foot/nail care. Has new ulcer to lateral foot. States that she was scraping down her callus and the whole callus came off, occurred last Saturday. Has been dressing it with Triple antibiotic ointment, Aquacel, gauze, and gauze wrap. Also has callus to the lateral 4th toe. Utilizes lambs wool DEXTER 06/18/24 documented in this encounterSelect [facility] Instructions* Patient Instructions* Kedar Long - 08/20/2024 11:50 AM EDT Diabetes Foot Care Instructions When you have diabetes, proper foot care is very important. Poor foot care may lead to amputation of a foot or leg. As a person with diabetes, you are more vulnerable to foot problems, because diabetes can damage your nerves and reduce blood flow to your feet. Here are some diabetes foot care tips to follow: Wash and Dry Your Feet Daily Use mild soaps Use warm water Pat your skin dry; do not rub. Thoroughly dry your feet. After washing, use lotion on your feet to prevent cracking. Do not put lotion between your toes. Examine Your Feet Each Day Check the tops and bottoms of your feet. Have someone else look at your feet if you cannot see them. Check for dry, cracked skin. Look for blisters, cuts, scratches, or other sores. Check for redness, increased warmth, or tenderness when touching any area of your feet. Check for ingrown toenails, corns, and calluses. If you get a blister or sore from your shoes, do not "pop" it. Apply a bandage and wear a differentpair of shoes. Take Care of Your Toenails Cut toenails after bathing, when they are soft. Cut toenails straight across and smooth with a nail file. Avoid cutting into the corners of toes. Do not cut cuticles. If you have neuropathy (or decreased sensation in your feet) a neonatal intensive care nurse should always cut your toenails. Be Careful When Exercising Walk and exercise in comfortable shoes. Do not exercise when you have open sores on your feet. Protect Your Feet With Shoes and Socks Never go barefoot. Always protect your feet by wearing shoes or hard-soled slippers or footwear. Avoid shoes with high heels and pointed toes. Avoid shoes that expose your toes or heels (such as open-toed shoes or sandals). These types of shoes increase your risk for injury and potential infections. Try on new footwear with the type of socks you usually wear. Do not wear new shoes for more than an hour at a time. Change your socks daily. Look and feel inside your shoes before putting them on to make sure there are no foreign objects orrough areas. Avoid tight socks. Wear natural-fiber socks (cotton, wool, or a cotton-wool blend). Wear special shoes if your health care provider recommends them. Wear shoes/boots that will protect your feet from various weather conditions (cold, moisture, etc.). Make sure your shoes fit properly. If you have neuropathy (nerve damage), you may not notice that your shoes are too tight. Perform the "footwear test" described below. Footwear Test Use this simple test to see if your shoes fit correctly: Stand on a piece of paper. (Make sure you are standing and not sitting, because your foot changes shape when you stand.) Trace the outline of your foot. Trace the outline of your shoe. Compare the tracings: Is the shoe too narrow? Is your foot crammed into the shoe? The shoe should be at least 1/2 inch longer than your longest toe and as wide as your foot. Proper Shoe Choices The following types of shoes are best for people with diabetes Closed toes and heels Leather uppers without a seam inside At least 1/2 inch extra space at the end of your longest toe Inside of shoe should be soft with no rough areas Outer sole should be made of stiff material Shoes should be at least as wide as your feet Tips for Foot Care in Diabetes Don't wait to treat a minor foot problem if you have diabetes. Follow your health care provider's guidelines and first aid guidelines. Report foot injuries and infections to your health care provider immediately. Check water temperature with your elbow, not your foot. Do not use a heating pad on your feet. Do not cross your legs. Do not self-treat your corns, calluses, or other foot problems. Go to your health care provider or neonatal intensive care nurse to treat these conditions. - Santyl (collagenase) ointment 30 g with one refill was called into [facility] in [place];apply once daily to the wound, cover with a piece of [employer] dressing, and secure with roll gauze - Continue using your [employer] dressing cut to fit over the wound - Wear your surgical off-loading shoe with the insert provided to keep pressure off the wound - Clean and wrap the wound daily, keeping it covered and dry - File calluses gently using large, sweeping strokes with your pumice stone--avoid filing too deeply - Apply lotion to your feet daily to keep the skin soft and prevent rough patches - Avoid walking barefoot; wear well-fitting, supportive shoes at all times - Continue monitoring your blood sugar levels with your DexCom device - Check your wound every day; call the office if you notice redness, swelling, increased pain, warmth, or any drainage - Remember smoking can slow wound healing--consider quitting or cutting back - Your wound was debrided today and is expected to heal over the next few weeks; contact the officeif it does not improve or if you have any concerns documented in this [facility] NoteHNO ID: [id number] Author: MIRIAM DEL ANGEL RN Service: ? Author Type: Registered Nurse Type: Progress Notes Filed: 08/20/2024 19:12 Note Text: Patient presents with: Left Foot - Established Patient, Follow Up, Diabetic Foot Care, Diabetic Foot Ulcer Patient presents for follow up diabetic foot/nail care. Has new ulcer to lateral foot. States that she was scraping down her callus and the whole callus came off, occurred last Saturday. Has been dressing it with Triple antibiotic ointment, Aquacel, gauze, and gauze wrap. Also has callus to the lateral 4th toe. Utilizes lambs wool [facility] 06/18/24[facility] Discharge summary [facility] Medical Records Department [address] [place] [address] Discharge Summary 07/25/24 0818 MR#: [id number] Acct: [id number] Name: SANJUANITA JERRY Rep #:[id number] : 1965 59 From: Floresita Capellan DO PCP: Dr. Art Herman MD Status :ADM IN Location: [facility] [id number] Providers Date of Admission: 07/22/24 Date of Discharge: 07/25/24 Primary Care Physician: Dr. 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: Reason for Consult:: Buttocks pressure/incontinence injuries x1 Reason For Visit: [facility] [address] [address] Diagnosis Discharge Diagnosis (1) Hyperosmolar hyperglycemic state (HHS): Status: Acute Code(s): E11.00 - Type 2 diabetes mellitus with hyperosmolarity without nonketotic hyperglycemic-hyperosmolar coma (NKHHC) (2) Dehydration: Status: Acute Code(s): E86.0 - Dehydration (3) VIJAY (acute kidney injury): Status: Acute Code(s): N17.9 - Acute kidney failure, unspecified (4) Abnormal urinalysis: Status: Acute Code(s): R82.90 - Unspecified abnormal findings in urine (5) Vaginal yeast infection: Status: Acute Code(s): B37.31 - Acute candidiasis of vulva and vagina (6) Leukocytosis: Status: Acute Code(s): D72.829 - Elevated white blood cell count, unspecified (7) Thrombocytosis: Status: Acute Code(s): D75.839 - Thrombocytosis, unspecified (8) High anion gap metabolic acidosis: Status: Acute Code(s): E87.29 - Other acidosis (9) Uncontrolled hypertension: Status: Acute Code(s): I10 - Essential (primary) hypertension (10) Noncompliance: Status: Acute Code(s): Z91.199 - Patient's noncompliance with other medical treatment and regimen due to unspecified reason (11) Diarrhea: Status: Acute Code(s): R19.7 - Diarrhea, unspecified Medications at Discharge Home Medications albuterol sulfate 90 mcg/actuation aerosol inhaler 2 puff inhalation Q4H PRN Sob&/Or Wheezing 10/01/18 dapagliflozin propanediol 10 mg tablet (Farxiga) 10 mg PO DAILY blood sugars 09/20/22 atorvastatin 40 mg tablet 40 mg PO QHS cholesterol 02/26/23 cholecalciferol (vitamin D3) 25 mcg (1,000 unit) tablet 25 mcg PO DAILY supplement 02/26/23 ferrous sulfate 325 mg (65 mg iron) tablet (FeroSul) 325 mg PO DAILY supplement 02/26/23 blood-glucose meter (True Metrix Glucose Meter) #1 ea 08/19/23 True Metrix Glucose Test Strip (blood sugar diagnostic) #50 ea 06/30/24 insulin glargine 100 unit/mL (3 mL) subcutaneous pen (Lantus Solostar U-100 Insulin) 20 unit (0.2 mL) subcut DAILY #15 mL 07/25/24 insulin lispro 100 unit/mL subcutaneous pen (Humalog KwikPen (U-100) Insulin) 5 unit (0.05 mL) subcut TIDAC #15 mL 07/25/24 lisinopril 10 mg tablet 10 mg PO DAILY #30 tabs 07/25/24 loperamide 2 mg capsule 2 mg PO Q8 #0 caps 07/25/24 pen needle, diabetic 31 gauge x 1/4" (1st Tier Unifine Pentips) #100 ea 07/25/24 potassium chloride 20 mEq tablet,extended release(part/cryst) 40 meq (2 x 20 mEq) PO BIDCM #10 tabs07/25/24 Hospital Course Procedures EKG and - (CT brain/chest x-ray) Summary of Care Provided Minutes Spent on Discharge: 39 Hospital Course: SANJUANITA JERRY, is a 59 F who presented to the emergency department [facility] on 07/22/2024 with a chief complaint of generalized weakness. There was apparently some concern for stroke because the last night about 1:30 AM she had some intermittent paresthesias in her right hand and fingers. Thoughsymptoms are resolved. Her daughter noted that her voice or speech was different at that time as well but her daughter was at work. This morning her daughter still felt her speech was changed so she called EMS. Patient reported she had intermittent diarrhea and nausea for about 3 weeks. She has not been taking any of her home medications including her insulin. She denies any fever or chills, she denied abdominal pain, she indicated she was extremely thirsty and wanted to drink. She follows with endocrinology as an outpatient with her last visit being on 05/27/2024. It appeared on admission that there is a long history of noncompliance. Vital signs at the time of presentation showed a temperature of 97.1, heart rate 93, respiratory rate was 16, blood pressure was 125/109 and pulse ox was 98% on room air. CBC showed a white count of 22.5 witha hemoglobin of 11.1 and thrombocytosiswith a platelet count of 526,000 CBC appears to be markedly hemoconcentrated compared to her baseline. A VBG was obtained and her pH was 7.26. Her chemistry showed marked hypokalemia with potassium of 2.3 she had significant VIJAY with serum creatinine of 2.19 and a BUNof 51. Anion gap was elevated at 21 however her bicarb was normal at 30.7 I suspect this is all contraction related and her anion gap is elevated related toher VIJAY. Serum creatinine baseline is between 0.8 and 1.0. Serum glucose on presentation was 1162. Serum osmolality was elevated at 356. Lactic acid was normal at 1. Magnesiumwas normal at 2.3 however phosphorus was found to be 0.7. Liver functions were fairly unremarkable.Initial troponin was 47 with a delta of 40. Beta hydroxybutyrate was normal. Her UA is suggestive of infection. CT of brain was unremarkable for any acute findings. Chest x-ray isunremarkable. Patient was aggressively hydrated and treated for hypokalemia in the emergency department and given subcu insulin. Urine culture was sent and she was given ceftriaxone. She was initially admitted to the intensive care unit and maintained on IV ceftriaxone. Urine culture did test positive for E. coli and sh e received a 3-day course of ceftriaxone while she was hospitalized. She was placed on an insulin drip for HHS protocol and her blood sugars were slowly lowered between daily insulin drip and IV fluids. She was aggressively hydrated. She was severely hemoconcentrated on presentation with an elevated white count, erythrocytosis, and thrombocytosis. Her baseline hemoglobin prior to presentation appeared runs between 7.5 and 9. After full hydration her hemoglobin did drop but was in her baseline range without any obvious signs of blood loss. She stated that she had been told previously that she needs a colonoscopy but has not not yet made that appointment. We did make a referral to see Dr. Gaytan at discharge and she is to call on Saturday to set that appointment up. After we were able to get her off the insulin drip for HHS she was transition to basal insulin at 20 units and initially subcuinsulin with meals 3 times daily at 10 units. She had some hypoglycemic episodes so we reduced her bolus insulin with meals down to 5 and maintained her basal insulin at 20 units as her fasting sugars were well-controlled. She will continue her Farxiga but her glipizide was discontinued at the timeof discharge. Her hemoglobin A1c was found to be markedly elevated at greater than 13 so we felt insulin was appropriate this time. She was instructed intensely in giving herself insulin injections and performed competently prior to discharge. We have asked her to check her blood sugars 4 times daily once in the morning fasting and before each meal. She already is established with endocrinology [facility] have asked her to call and get an appointment to be seen as soon as there is availability. She had significant electrolyte abnormalities during her hospitalization all of which have been replaced at the time of discharge. She will be discharged with another few days of potassium replacement as this was the biggest electrolyte abnormality she had during her hospital course and I suspect she wasjust severely depleted. She was also noted to have a vaginal yeast infection and was treated with Diflucan 150 x 1 dose. Her blood pressure was elevated. She had previously been on lisinopril 5 mg wedid increase this and discharged her with a prescription for lisinopril 10 mg. Blood pressure control was much better. We have also advised tobacco cessation. Again, she isto follow-up with her primary care physician within 1 week, Dr. Gaytan within the next 1 to 2 weeks, and endocrinology as they have availability. She was offered home health multiple times at the time of discharge however she declined. She is to use as needed loperamide for her diarrhea as it was found to be noninfectious. Again it was reiterated that colonoscopy will be importantin the near future. Discharge diagnoses: HHS Medication noncompliance E. coli UTI VIJAY Severe dehydration Hypokalemia Hypophosphatemia Hypernatremia Hyperchloremia Diarrhea Leukocytosis Thrombocytosis Chronic anemia Vaginal yeast infection DM-2 uncontrolled Uncontrolled hypertension Hyperlipidemia History of right lower extremity BKA Severe malnutrition Tobacco abuse Physical Exam Const alert, oriented x3 and no apparent distress; Negative for average body habitus, healthy appearing or well nourished Constitutional Narrative: Cachectic appearing middle-aged, sitting up in bed watching television, appears comfortable, nontoxic, very pleasant General Appearance: cooperative and comfortable Nutritional Appearance: cachectic HEENT normocephalic, head/scalp atraumatic, hearing grossly normal bilaterally and moist oral mucous membranes HEENT Narrative: Edentulous, Mallampati is 1, no thrush, severe temporal wasting bilaterally Eyes EOMs intact bilaterally and conjunctivae normal Eyes Narrative: conjunctiva pallor bilaterally, no scleral icterus Neck supple Neck Narrative: Trachea midline Resp normal respiratory effort, no retractions, no use of accessory muscles and clearto auscultation bilaterally Resp Narrative: Diminished but clear Auscultation: Negative for rales, rhonchi or wheezes Cardio regular rate, regular rhythm, S1 normal heart sound, S2 normal heart sound, no murmurs, no rub, no gallops and no clicks GI normal to inspection, nondistended, normoactive bowel sounds, soft to palpation and non-tender GI Narrative: Scaphoid abdomen Extremity no clubbing, cyanosis or edema Extremity Narrative: Decreased lean muscle mass, right lower extremity has BKA Skin no jaundice, no petechiae and no mottling Skin Narrative: Skin is pale Neuro oriented x3, moves all extremities and no focal motor deficits Neuro Narrative: Decreased sensation left distal lower extremity Speech: speech normal Psych affect normal Psych Narrative: Very pleasant, calm, interacts appropriately Mood & Affect: anxious Weight / BMI Weight Weight: 40.9 kg Body Mass Index (BMI) 17.6 ABG / Lab / Microbiology Data 07/25/24 06:08 07/25/24 06:08 Laboratory: Laboratory Results - last 24 hr 07/24/24 13:13: Hgb 9.0 L 07/24/24 16:10: POC Glucose 93 07/24/24 20:55: POC Glucose 43 L* 07/24/24 21:23: POC Glucose 38 L* 07/24/24 21:44: POC Glucose 89 07/24/24 21:50: Glucose 94 07/24/24 23:59: POC Glucose 365 H 07/25/24 05:35: POC Glucose 155 H 07/25/24 06:08: WBC 9.2, RBC 2.71 L, Hgb 7.7 L, Hct 23.6 L, MCV 87.1, MCH 28.4, MCHC 32.6, RDW Std Deviation 48.5 H, RDW Coeff of Emily 15.2 H, Plt Count 315, MPV11.2, Immature Gran % (Auto) 0.600, Neut % (Auto) 75.9 H, Lymph % (Auto) 17.5 L,Andrew % (Auto) 5.2, Eos % (Auto) 0.6, Baso % (Auto) 0.2, Absolute Neuts (auto) 7.0, Absolute Lymphs (auto) 1.62, Nucleated RBC % 0, Sodium 139, Potassium 3.4, Chloride 111 H, Carbon Dioxide 18.5 L, Anion Gap 10, BUN 26 H, Creatinine 1.30 H, Estim Creat Clear Calc 30.46 L, Est GFR (MDRD) Non-Af 48 L, BUN/Creatinine Ratio 20.2 H, Glucose 124 H, Calcium 7.9, Phosphorus 1.9 L, Magnesium 1.5 07/25/24 11:13: POC Glucose 250 H Microbiology: Microbiology 07/22/24 09:01 Urine, Catheterized Urine Culture - Final Escherichia coli 07/23/24 10:30 Stool Stool Lactoferrin - Final 07/23/24 10:30 Stool Enteric Bacteriology - Final 07/23/24 10:30 Stool Clostridioides difficile (PCR) - Final D/C Instructions Discharge Diet: 1800 Calorie Control Diet Discharge Activity: Return to Normal Activity DC O2, CPAP, BIPAP Needs Home O2 Discharge instructions: No Meaningful Use Info Meaningful Use Meaningful Use Diagnoses (Choose all that apply): None applicable Ischemic Stroke Statin Dosing Therapy Reference: STATIN DOSE THERAPY REFERENCE: * Patients > 75 years receive moderate or high dose statin therapy. * Patients 75 years or YOUNGER should receive HIGH intensity statin dose unless contraindicated. You will be required to document reason for non-treatment if statin daily dose does not meet guidelines. HIGH DOSE STATIN THERAPY DAILY Atorvastatin > than or = to 40 mg Rosuvastatin > than or = to 20 mg Amlodipine + Atorvastatin > than or = to 2.5/40 mg Ezetimibe + Simvastatin 10/80 mg Simvastatin 80mg Discharge Plan Admission Admit Date/Time: 07/22/24 09:41 Primary Reason for Your Visit: weakness Attending Provider: Floresita Capellan Primary Care Provider: Art Herman Instructions Additional Instructions / Restrictions: 1. If you are not able to eat on a regular basis due to nausea or vomiting please decrease your glargine from 20 units to 10 units and do not take your lispro 2. Please check your blood sugars in the morning and before each meal. Write them down and take them to your next appointment with your diabetes doctor 3. Please call on Saturday to set up an appointment with your diabetes doctor andthe stomach doctor to get a colonoscopy scheduled for your ongoing diarrhea 4. Please buy [id number] loperamide and use as needed Discharge Orders/Prescriptions Prescriptions: New insulin lispro [Humalog KwikPen Insulin] 100 unit/mL Insulin Pen 5 unit subcut TIDAC Qty: 15 0RF lisinopril 10 mg Tablet 10 mg PO DAILY Qty: 30 0RF potassium chloride 20 mEq Tablet,Er Particles/Crystals 40 meq PO BIDCM Qty: 10 0RF loperamide 2 mg Capsule 2 mg PO Q8 Qty: 0 0RF (DME) pen needle, diabetic [1st Tier Unifine Pentips] 31 gauge x 1/4" needle See Rx Instructions .Route Qty: 100 1RF Rx Instructions: As directed insulin glargine [Lantus Solostar U-100 Insulin] 100 unit/mL (3 mL) insulin pen 20 unit subcut DAILY Qty: 15 0RF Continued dapagliflozin propanediol [Farxiga] 10 mg tablet 10 mg PO DAILY albuterol sulfate 1 PUFF inhaler 2 puff inhalation Q4H PRN (Reason: Sob &/Or Wheezing) atorvastatin 40 mg tablet 40 mg PO QHS Patient Comments: PT HASNT BEEN TAKING IN 3 WEEKS ferrous sulfate [FeroSul] 325 mg (65 mg iron) tablet 325 mg PO DAILY cholecalciferol (vitamin D3) 25 mcg (1,000 unit) tablet 25 mcg PO DAILY (DME) blood-glucose meter [True Metrix Glucose Meter] [facility] See Rx Instructions .Route Qty: 1 0RF Rx Instructions: As directed (DME) True Metrix Glucose Test Strip Strip See Rx Instructions .Route Qty: 50 8RF Rx Instructions: daily Discontinued lisinopril 5 mg tablet 5 mg PO DAILY glipizide 5 mg tablet 5 mg PO BID Qty: 60 5RF Referrals / Follow Up: Art Herman MD [Primary Care Provider] - Within 1 Week Miguel A Gaytan DO [Med Staff - Active Staff] - See Referral Note (Please call on Saturday to set up an appointment to be seen in the next 2 weeks) Wan Madrigal MD [Med Staff - Courtesy Staff] - 08/27/24 11:15 am Disposition Disposition (needs filled in before D/C Order can be placed): Home, Self Care Charges/Coding Visit Charges Inpatient E&M: 10705 Disch Hosp >30min 07/25/24 1257 Cosigner Signature (if applicable): CC: Dr. Art Herman MD; Dr. Floresita Capellan DO; Miguel A Gaytan DO; Wan Madrigal MD~ Signed [facility]05-10-2025 Discharge summary Author Floresita Capellan [facility] Note Date/Time July 25, 2024 12:57 pm [facility] Medical Records Department [address] [place] [address] Discharge Summary 07/25/24 0818 MR#: [id number] Acct: [id number] Name: SANJUANITA JERRY Rep #:[id number] : 1965 59 From: Floresita Capellan DO PCP: Dr. Art Herman MD Status :ADM IN Location: [place] [address] Providers Date of Admission: 07/22/24 Date of Discharge: 07/25/24 Primary Care Physician: Dr. 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: Reason for Consult:: Buttocks pressure/incontinence injuries x1 Reason For Visit: HHS Diagnosis Discharge Diagnosis (1) Hyperosmolar hyperglycemic state (HHS): Status: Acute Code(s): E11.00 - Type 2 diabetes mellitus with hyperosmolarity without nonketotic hyperglycemic-hyperosmolar coma (NKHHC) (2) Dehydration: Status: Acute Code(s): E86.0 - Dehydration (3) VIJAY (acute kidney injury): Status: Acute Code(s): N17.9 - Acute kidney failure, unspecified (4) Abnormal urinalysis: Status: Acute Code(s): R82.90 - Unspecified abnormal findings in urine (5) Vaginal yeast infection: Status: Acute Code(s): B37.31 - Acute candidiasis of vulva and vagina (6) Leukocytosis: Status: Acute Code(s): D72.829 - Elevated white blood cell count, unspecified (7) Thrombocytosis: Status: Acute Code(s): D75.839 - Thrombocytosis, unspecified (8) High anion gap metabolic acidosis: Status: Acute Code(s): E87.29 - Other acidosis (9) Uncontrolled hypertension: Status: Acute Code(s): I10 - Essential (primary) hypertension (10) Noncompliance: Status: Acute Code(s): Z91.199 - Patient's noncompliance with other medical treatment and regimen due to unspecified reason (11) Diarrhea: Status: Acute Code(s): R19.7 - Diarrhea, unspecified Medications at Discharge Home Medications albuterol sulfate 90 mcg/actuation aerosol inhaler 2 puff inhalation Q4H PRN Sob&/Or Wheezing 10/01/18 dapagliflozin propanediol 10 mg tablet (Farxiga) 10 mg PO DAILY blood sugars 09/20/22 atorvastatin 40 mg tablet 40 mg PO QHS cholesterol 02/26/23 cholecalciferol (vitamin D3) 25 mcg (1,000 unit) tablet 25 mcg PO DAILY supplement 02/26/23 ferrous sulfate 325 mg (65 mg iron) tablet (FeroSul) 325 mg PO DAILY supplement 02/26/23 blood-glucose meter (True Metrix Glucose Meter) #1 ea 08/19/23 True Metrix Glucose Test Strip (blood sugar diagnostic) #50 ea 06/30/24 insulin glargine 100 unit/mL (3 mL) subcutaneous pen (Lantus Solostar U-100 Insulin) 20 unit (0.2 mL) subcut DAILY #15 mL 07/25/24 insulin lispro 100 unit/mL subcutaneous pen (Humalog KwikPen (U-100) Insulin) 5 unit (0.05 mL) subcut TIDAC #15 mL 07/25/24 lisinopril 10 mg tablet 10 mg PO DAILY #30 tabs 07/25/24 loperamide 2 mg capsule 2 mg PO Q8 #0 caps 07/25/24 pen needle, diabetic 31 gauge x 1/4" (1st Tier Unifine Pentips) #100 ea 07/25/24 potassium chloride 20 mEq tablet,extended release(part/cryst) 40 meq (2 x 20 mEq) PO BIDCM #10 tabs 07/25/24 Hospital Course Procedures EKG and - (CT brain/chest x-ray) Summary of Care Provided Minutes Spent on Discharge: 39 Hospital Course: SANJUANITA JERRY, is a 59 F who presented to the emergency department [facility] on 07/22/2024 with a chief complaint of generalized weakness. There was apparently some concern for stroke because the last night about 1:30 AM she had some intermittent paresthesias in her right hand and fingers. Thoughsymptoms are resolved. Her daughter noted that her voice or speech was different at that time as well but her daughter was at work. This morning her daughter still felt her speech was changed so she called EMS. Patient reported she had intermittent diarrhea and nausea for about 3 weeks. She has not been taking any of her home medications including her insulin. She denies any fever or chills, she denied abdominal pain, she indicated she was extremely thirsty and wanted to drink. She follows with endocrinology as an outpatient with her last visit being on 05/27/2024. It appeared on admission that there is a long history of noncompliance. Vital signs at the time of presentation showed a temperature of 97.1, heart rate 93, respiratory rate was 16, blood pressure was 125/109 and pulse ox was 98% on room air. CBC showed a white count of 22.5 witha hemoglobin of 11.1 and thrombocytosis with a platelet count of 526,000 CBC appears to be markedly hemoconcentrated compared to her baseline. A VBG was obtained and her pH was 7.26. Her chemistry showed marked hypokalemia with potassium of 2.3 she had significant VIJAY with serum creatinine of 2.19 and a BUNof 51. Anion gap was elevated at 21 however her bicarb was normal at 30.7 I suspect this is all contraction related and her anion gap is elevated related toher VIJAY. Serum creatinine baseline is between 0.8 and 1.0. Serum glucose on presentation was 1162. Serum osmolality was elevated at 356. Lactic acid was normal at 1. Magnesium was normal at 2.3 however phosphorus was found to be 0.7. Liver functions were fairly unremarkable. Initial troponin was 47 with a delta of 40. Beta hydroxybutyrate was normal. Her UA is suggestive of infection. CT of brain was unremarkable for any acute findings. Chest x-ray isunremarkable. Patient was aggressively hydrated and treated for hypokalemia in the emergency department and given subcu insulin. Urine culture was sent and she was given ceftriaxone. She was initially admitted to the intensive care unit and maintained on IV ceftriaxone. Urine culture did test positive for E. coli and she received a 3-day course of ceftriaxone while she was hospitalized. She was placed on an insulin drip for HHS protocol and her blood sugars were slowly lowered between daily insulin drip and IV fluids. She was aggressively hydrated. She was severely hemoconcentrated on presentation with an elevated white count, erythrocytosis, and thrombocytosis. Her baseline hemoglobin prior to presentation appeared runs between 7.5 and 9. After full hydration her hemoglobin did drop but was in her baseline range without any obvious signs of blood loss. She stated that she had been told previously that she needs a colonoscopy but has not not yet made that appointment. We did make a referral to see Dr. Gaytan at discharge and she is to call on Saturday to set that appointment up. After we were able to get her off the insulin drip for [facility] she was transition to basal insulin at 20 units and initially subcu insulin with meals 3 times daily at 10 units. She had some hypoglycemic episodes so we reduced her bolus insulin with meals down to 5 and maintained her basal insulin at 20 units as her fasting sugars were well-controlled. She will continue her Farxiga but her glipizide was discontinued at the time of discharge. Her hemoglobin A1c was found to be markedly elevated at greater than 13 so we felt insulin was appropriate this time. She was instructed intensely in giving herself insulin injections and performed competently prior to discharge. We have asked her to check her blood sugars 4 times daily once in the morning fasting and before each meal. She already is established with endocrinology Romero have asked her to call and get an appointment to be seen as soon as there is availability. She had significant electrolyte abnormalities during her hospitalization all of which have been replaced at the time of discharge. She will be discharged with another few days of potassium replacement as this was the biggest electrolyte abnormality she had during her hospital course and I suspect she was just severely depleted. She was also noted to have a vaginal yeast infection and was treated with Diflucan 150 x 1 dose. Her blood pressure was elevated. She had previously been on lisinopril 5 mg we did increase this and discharged her with a prescription for lisinopril 10 mg. Blood pressure control was much better. We have also advised tobacco cessation. Again, she isto follow-up with her primary care physician within 1 week, Dr. Gaytan within the next 1 to 2 weeks, and endocrinology as they have availability. She was offered home health multiple times at the time of discharge however she declined. She is to use as needed loperamide for her diarrhea as it was found to be noninfectious. Again it was reiterated that colonoscopy will be importantin the near future. Discharge diagnoses: HHS Medication noncompliance E. coli UTI VIJAY Severe dehydration Hypokalemia Hypophosphatemia Hypernatremia Hyperchloremia Diarrhea Leukocytosis Thrombocytosis Chronic anemia Vaginal yeast infection DM-2 uncontrolled Uncontrolled hypertension Hyperlipidemia History of right lower extremity BKA Severe malnutrition Tobacco abuse Physical Exam Const alert, oriented x3 and no apparent distress; Negative for average body habitus, healthy appearing or well nourished Constitutional Narrative: Cachectic appearing middle-aged, sitting up in bed watching television, appears comfortable, nontoxic, very pleasant General Appearance: cooperative and comfortable Nutritional Appearance: cachectic HEENT normocephalic, head/scalp atraumatic, hearing grossly normal bilaterally and moist oral mucous membranes HEENT Narrative: Edentulous, Mallampati is 1, no thrush, severe temporal wasting bilaterally Eyes EOMs intact bilaterally and conjunctivae normal Eyes Narrative: conjunctiva pallor bilaterally, no scleral icterus Neck supple Neck Narrative: Trachea midline Resp normal respiratory effort, no retractions, no use of accessory muscles and clearto auscultation bilaterally Resp Narrative: Diminished but clear Auscultation: Negative for rales, rhonchi or wheezes Cardio regular rate, regular rhythm, S1 normal heart sound, S2 normal heart sound, no murmurs, no rub, no gallops and no clicks GI normal to inspection, nondistended, normoactive bowel sounds, soft to palpation and non-tender GI Narrative: Scaphoid abdomen Extremity no clubbing, cyanosis or edema Extremity Narrative: Decreased lean muscle mass, right lower extremity has BKA Skin no jaundice, no petechiae and no mottling Skin Narrative: Skin is pale Neuro oriented x3, moves all extremities and no focal motor deficits Neuro Narrative: Decreased sensation left distal lower extremity Speech: speech normal Psych affect normal Psych Narrative: Very pleasant, calm, interacts appropriately Mood & Affect: anxious Weight / BMI Weight Weight: 40.9 kg Body Mass Index (BMI) 17.6 ABG / Lab / Microbiology Data 07/25/24 06:08 07/25/24 06:08 Laboratory: Laboratory Results - last 24 hr 07/24/24 13:13: Hgb 9.0 L 07/24/24 16:10: POC Glucose 93 07/24/24 20:55: POC Glucose 43 L* 07/24/24 21:23: POC Glucose 38 L* 07/24/24 21:44: POC Glucose 89 07/24/24 21:50: Glucose 94 07/24/24 23:59: POC Glucose 365 H 07/25/24 05:35: POC Glucose 155 H 07/25/24 06:08: WBC 9.2, RBC 2.71 L, Hgb 7.7 L, Hct 23.6 L, MCV 87.1, MCH 28.4, MCHC 32.6, RDW Std Deviation 48.5 H, RDW Coeff of Emily 15.2 H, Plt Count 315, MPV11.2, Immature Gran % (Auto) 0.600, Neut % (Auto) 75.9 H, Lymph % (Auto) 17.5 L,Andrew % (Auto) 5.2, Eos % (Auto) 0.6, Baso % (Auto) 0.2, Absolute Neuts (auto) 7.0, Absolute Lymphs (auto) 1.62, Nucleated RBC % 0, Sodium 139, Potassium 3.4, Chloride 111 H, Carbon Dioxide 18.5 L, Anion Gap 10, BUN 26 H, Creatinine 1.30 H, Estim Creat Clear Calc 30.46 L, Est GFR (MDRD) Non-Af 48 L, BUN/Creatinine Ratio 20.2 H, Glucose 124 H, Calcium 7.9, Phosphorus 1.9 L, Magnesium 1.5 07/25/24 11:13: POC Glucose 250 H Microbiology: Microbiology 07/22/24 09:01 Urine, Catheterized Urine Culture - Final Escherichia coli 07/23/24 10:30 Stool Stool Lactoferrin - Final 07/23/24 10:30 Stool Enteric Bacteriology - Final 07/23/24 10:30 Stool Clostridioides difficile (PCR) - Final D/C Instructions Discharge Diet: 1800 Calorie Control Diet Discharge Activity: Return to Normal Activity DC O2, CPAP, BIPAP Needs Home O2 Discharge instructions: No Meaningful Use Info Meaningful Use Meaningful Use Diagnoses (Choose all that apply): None applicable Ischemic Stroke Statin Dosing Therapy Reference: STATIN DOSE THERAPY REFERENCE: * Patients > 75 years receive moderate or high dose statin therapy. * Patients 75 years or YOUNGER should receive HIGH intensity statin dose unless contraindicated. You will be required to document reason for non-treatment if statin daily dose does not meet guidelines. HIGH DOSE STATIN THERAPY DAILY Atorvastatin > than or = to 40 mg Rosuvastatin > than or = to 20 mg Amlodipine + Atorvastatin > than or = to 2.5/40 mg Ezetimibe + Simvastatin 10/80 mg Simvastatin 80mg Discharge Plan Admission Admit Date/Time: 07/22/24 09:41 Primary Reason for Your Visit: weakness Attending Provider: Floresita Capellan Primary Care Provider: Art Herman Instructions Additional Instructions / Restrictions: 1. If you are not able to eat on a regular basis due to nausea or vomiting please decrease your glargine from 20 units to 10 units and do not take your lispro 2. Please check your blood sugars in the morning and before each meal. Write them down and take them to your next appointment with your diabetes doctor 3. Please call on Saturday to set up an appointment with your diabetes doctor andthe stomach doctor to get a colonoscopy scheduled for your ongoing diarrhea 4. Please buy [id number] loperamide and use as needed Discharge Orders/Prescriptions Prescriptions: New insulin lispro [Humalog KwikPen Insulin] 100 unit/mL Insulin Pen 5 unit subcut TIDAC Qty: 15 0RF lisinopril 10 mg Tablet 10 mg PO DAILY Qty: 30 0RF potassium chloride 20 mEq Tablet,Er Particles/Crystals 40 meq PO BIDCM Qty: 10 0RF loperamide 2 mg Capsule 2 mg PO Q8 Qty: 0 0RF (DME) pen needle, diabetic [1st Tier Unifine Pentips] 31 gauge x 1/4" needle See Rx Instructions .Route Qty: 100 1RF Rx Instructions: As directed insulin glargine [Lantus Solostar U-100 Insulin] 100 unit/mL (3 mL) insulin pen 20 unit subcut DAILY Qty: 15 0RF Continued dapagliflozin propanediol [Farxiga] 10 mg tablet 10 mg PO DAILY albuterol sulfate 1 PUFF inhaler 2 puff inhalation Q4H PRN (Reason: Sob &/Or Wheezing) atorvastatin 40 mg tablet 40 mg PO QHS Patient Comments: PT HASNT BEEN TAKING IN 3 WEEKS ferrous sulfate [FeroSul] 325 mg (65 mg iron) tablet 325 mg PO DAILY cholecalciferol (vitamin D3) 25 mcg (1,000 unit) tablet 25 mcg PO DAILY (DME) blood-glucose meter [True Metrix Glucose Meter] Misc See Rx Instructions .Route Qty: 1 0RF Rx Instructions: As directed (DME) True Metrix Glucose Test Strip Strip See Rx Instructions .Route Qty: 50 8RF Rx Instructions: daily Discontinued lisinopril 5 mg tablet 5 mg PO DAILY glipizide 5 mg tablet 5 mg PO BID Qty: 60 5RF Referrals / Follow Up: Art Herman MD [Primary Care Provider] - Within 1 Week Miguel A Gaytan DO [Med Staff - Active Staff] - See Referral Note (Please call on Saturday to set up an appointment to be seen in the next 2 weeks) Wan Madrigal MD [Med Staff - Courtesy Staff] - 08/27/24 11:15 am Disposition Disposition (needs filled in before D/C Order can be placed): Home, Self Care Charges/Coding Visit Charges Inpatient E&M: 18619 Disch Hosp >30min 07/25/24 1257 <Electronically signed by Floresita Capellan DO> Cosigner Signature (if applicable): CC: Dr. Art Herman MD; Dr. Floresita Capellan DO; Miguel A Gaytan DO; Wan Madrigal MD~ Signed [facility] Work Phone: 1(284) 867-791805-10-2025 [facility] Medical Records Department [address] [place] [id number] Discharge Summary 07/25/2418 MR#: [id number] Acct: [id number] Name: SANJUANITA JERRY Rep #: [id number] : 1965 59 From: Floresita Capellan DO PCP: Dr. Art Herman MD Status:ADM IN Location: [place] [address] Providers Date of Admission: 07/22/24 Date of Discharge: 07/25/24 Primary Care Physician: Dr. 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: Reason for Consult:: Buttocks pressure/incontinence injuries x1 Reason For Visit: HHS Diagnosis Discharge Diagnosis (1) Hyperosmolar hyperglycemic state (HHS): Status: Acute Code(s): E11.00 - Type 2 diabetes mellitus with hyperosmolarity without nonketotic hyperglycemic-hyperosmolar coma (NKHHC) (2) Dehydration: Status: Acute Code(s): E86.0 - Dehydration (3) VIJAY (acute kidney injury): Status: Acute Code(s): N17.9 - Acute kidney failure, unspecified (4) Abnormal urinalysis: Status: Acute Code(s): R82.90 - Unspecified abnormal findings in urine (5) Vaginal yeast infection: Status: Acute Code(s): B37.31 - Acute candidiasis of vulva and vagina (6) Leukocytosis: Status: Acute Code(s): D72.829 - Elevated white blood cell count, unspecified (7) Thrombocytosis: Status: Acute Code(s): D75.839 - Thrombocytosis, unspecified (8) High anion gap metabolic acidosis: Status: Acute Code(s): E87.29 - Other acidosis (9) Uncontrolled hypertension: Status: Acute Code(s): I10 - Essential (primary) hypertension (10) Noncompliance: Status: Acute Code(s): Z91.199 - Patient's noncompliance with other medical treatment and regimen due to unspecified reason (11) Diarrhea: Status: Acute Code(s): R19.7 - Diarrhea, unspecified Medications at Discharge Home Medications albuterol sulfate 90 mcg/actuation aerosol inhaler 2 puff inhalation Q4H PRN Sob /Or Wheezing 10/01/18 dapagliflozin propanediol 10 mg tablet (Farxiga) 10 mg PO DAILY blood sugars 09/20/22 atorvastatin 40 mg tablet 40 mg PO QHS cholesterol 02/26/23 cholecalciferol (vitamin D3) 25 mcg (1,000 unit) tablet 25 mcg PO DAILY supplement 02/26/23 ferrous sulfate 325 mg (65 mg iron) tablet (FeroSul) 325 mg PO DAILY supplement 02/26/23 blood-glucose meter (True Metrix Glucose Meter) #1 ea 08/19/23 True Metrix Glucose Test Strip (blood sugar diagnostic) #50 ea 06/30/24 insulin glargine 100 unit/mL (3 mL) subcutaneous pen (Lantus Solostar U-100 Insulin) 20 unit (0.2 mL) subcut DAILY #15 mL 07/25/24 insulin lispro 100 unit/mL subcutaneous pen (Humalog KwikPen (U-100) Insulin) 5 unit (0.05 mL) subcut TIDAC #15 mL 07/25/24 lisinopril 10 mg tablet 10 mg PO DAILY #30 tabs 07/25/24 loperamide 2 mg capsule 2 mg PO Q8 #0 caps 07/25/24 pen needle, diabetic 31 gauge x 1/4" (1st Tier Unifine Pentips) #100 ea 07/25/24 potassium chloride 20 mEq tablet,extended release(part/cryst) 40 meq (2 x 20 mEq) PO BIDCM #10 tabs 07/25/24 Hospital Course Procedures EKG and - (CT brain/chest x-ray) Summary of Care Provided Minutes Spent on Discharge: 39 Hospital Course: SANJUANITA JERRY, is a 59 F who presented to the emergency department [facility] on 07/22/2024 with a chief complaint of generalized weakness. There was apparently some concern for stroke because the last night about 1:30 AM she had some intermittent paresthesias in her right hand and fingers. Though symptoms are resolved. Her daughter noted that her voice or speech was different at that time as well but her daughter was at work. This morning her daughter still felt her speech was changed so she called EMS. Patient reported she had intermittent diarrhea and nausea for about 3 weeks. She has not been taking any of her home medications including her insulin. She denies any fever or chills, she denied abdominal pain, she indicated she was extremely thirsty and wanted to drink. She follows with endocrinology as an outpatient with her last visit being on 05/27/2024. It appeared on admission that there is a long history of noncompliance. Vital signs at the time of presentation showed a temperature of 97.1, heart rate 93, respiratory rate was 16, blood pressure was 125/109 and pulse ox was 98% on room air. CBC showed a white count of 22.5 with a hemoglobin of 11.1 and thrombocytosis with a platelet count of 526,000 CBC appears to be markedly hemoconcentrated compared to her baseline. A VBG was obtained and her pH was 7.26. Her chemistry showed marked hypokalemia with potassium of 2.3 she had significant VIJAY with serum creatinine of 2.19 and a BUN of 51. Anion gap was elevated at 21 however her bicarb was normal at 30.7 I suspect this is all contraction related and her anion gap is elevated related to her VIJAY. Serum creatinine baseline is between 0.8 and 1.0. Serum glucose on presentation was 1162 (more content not included)...[facility]05-09-2025 Progress note Author Floresita Capellan [facility] Note Date/Time July 24, 2024 12:06p m [facility] Medical Records Department [address] [place] [address] Progress Note - Hospitalist 07/24/24 0747 MR#: [id number] Acct: [id number] Name: SANJUANITA JERRY Rep #:[id number] : 1965 59 From: Floresita Capellan DO PCP: Dr. Art Herman MD Status :ADM IN Location: [facility] [id number] Reason for Visit Reason for Visit: Generalized weakness Subjective Subjective Patient states overall she is feeling better. No complaints today. We did discuss that she would need to go home on insulin and steroid and to work on giving herself insulin shots. Blood pressure is much better with the addition of lisinopril. Objective Data Objective Data Vital Signs: Vital Signs Temp Pulse Resp BP Pulse Ox O2 Del Method O2 Flow Rate 98.9 F 86 14 110/57 L 100 Room Air 2 07/24/24 01:58 07/24/24 01:58 07/24/24 01:58 07/24/24 01:58 07/24/24 01:58 07/24/24 01:58 07/22/24 10:00 Oxygen Flow Rate (L/min) 2 Oxygen Delivery Method Room Air Weight: 37.9 kg Body Mass Index (BMI) 16.4 Intake & Output: Intake and Output for Last 24 Hours 07/22/24 07/23/24 07/24/24 23:59 23:59 23:59 Intake Total 4202.02 / 4202.52 3785.9033 / 3785.9033 Output Total 250 / 250 650 / 650 Balance 3952.02 / 3952.52 3135.9033 / 3135.9033 Lab / Micro Data 07/24/24 06:22 07/24/24 06:22 Labs: Laboratory Results - last 24 hr 07/23/24 06:47: Sodium 152 H, Potassium 2.8 L, Chloride 116 H, Carbon Dioxide 24.4, Anion Gap 12, BUN 28 H, Creatinine 1.30 H, Estim Creat Clear Calc 28.22 L,Est GFR (MDRD) Non-Af 48 L, BUN/Creatinine Ratio 21.2 H, Glucose 106 H, Calcium 7.8, Total Bilirubin 0.16, AST 43 H, ALT 7, Alkaline Phosphatase 79, Total Protein 5.6 L, Albumin 2.6 L, Globulin 3.0, Albumin/Globulin Ratio 0.9, TSH 1.070 07/23/24 08:07: POC Glucose 126 H 07/23/24 10:53: POC Glucose 138 H 07/23/24 15:55: POC Glucose 118 H 07/23/24 18:35: Sodium 140, Potassium 2.9 L, Chloride 106, Carbon Dioxide 23.1, Anion Gap 11, BUN 24 H, Creatinine 1.25 H, Estim Creat Clear Calc 29.35 L, Est GFR (MDRD) Non-Af 50 L, BUN/Creatinine Ratio 19.5, Glucose 106 H, Calcium 7.7 07/23/24 21:18: POC Glucose 57 L 07/23/24 21:40: POC Glucose 84 07/24/24 02:05: POC Glucose 165 H 07/24/24 06:22: WBC 11.0, RBC 2.65 L, Hgb 7.4 L, Hct 22.6 L, MCV 85.3, MCH 27.9,MCHC 32.7, RDW Std Deviation 46.1 H, RDW Coeff of Emily 14.8 H, Plt Count 312, MPV11.0, Immature Gran % (Auto) 0.500, Neut % (Auto) 80.3 H, Lymph % (Auto) 13.9 L,Andrew % (Auto) 4.3, Eos % (Auto) 0.7, Baso % (Auto) 0.3, Absolute Neuts (auto) 8.8 H, Absolute Lymphs (auto) 1.53, Nucleated RBC % 0, Sodium 141, Potassium 2.6L*, Chloride 110 H, Carbon Dioxide 22.8, Anion Gap 8, BUN 20 H, Creatinine 1.18,Estim Creat Clear Calc 31.09 L, Est GFR (MDRD) Non-Af 54 L, BUN/Creatinine Ratio17.0, Glucose 147 H, Calcium 7.3 L Micro: Microbiology 07/23/24 10:30 Stool Stool Lactoferrin - Final 07/23/24 10:30 Stool Enteric Bacteriology - Final 07/23/24 10:30 Stool Clostridioides difficile (PCR) - Final 07/22/24 09:01 Urine, Catheterized Urine Culture - Preliminary GNR lactose leasing representative Rhythm Strip Rhythm Strip: Sinus Rhythm Rate: 85 Ectopy: None Physical Exam Const alert, oriented x3 and no apparent distress; Negative for average body habitus, healthy appearing or well nourished Constitutional Narrative: Cachectic appearing middle-aged, sitting up in bed watching television, appears comfortable, nontoxic, very pleasant General Appearance: cooperative HEENT normocephalic, head/scalp atraumatic and moist oral mucous membranes HEENT Narrative: Edentulous, Mallampati is 2, no thrush Resp normal respiratory effort, no retractions, no use of accessory muscles and clearto auscultation bilaterally Resp Narrative: Diminished but clear Auscultation: Negative for rales, rhonchi or wheezes Cardio regular rate, regular rhythm, S1 normal heart sound, S2 normal heart sound, no murmurs, no rub, no gallops and no clicks GI normal to inspection, nondistended, normoactive bowel sounds, soft to palpation and non-tender GI Narrative: Scaphoid abdomen Extremity no clubbing, cyanosis or edema Extremity Narrative: Decreased lean muscle mass, right lower extremity has BKA Neuro oriented x3, moves all extremities and no focal motor deficits Speech: speech normal Psych affect normal Psych Narrative: Very pleasant, calm, interacts appropriately Assessment & Plan Assessment/Plan (1) Hyperosmolar hyperglycemic state (HHS): (2) Dehydration: (3) VIJAY (acute kidney injury): (4) Abnormal urinalysis: (5) Vaginal yeast infection: (6) Leukocytosis: (7) Thrombocytosis: (8) High anion gap metabolic acidosis: (9) Uncontrolled hypertension: (10) Noncompliance: (11) Diarrhea: PLAN: Plan HHS with a history of DM-2 and noncompliance - Blood sugars are fairly well-controlled on regimen instituted yesterday - AM fasting sugar was 147 - Continue basal insulin at 20 units - Continue lispro 10 units 3 times daily - SSI -Continue carb controlled diet - Dietitian is is following - Ongoing nursing to instruct patient in insulin pen use - Continue to hold home oral medications patient was noncompliant E. coli UTI - Currently on ceftriaxone day 3 which will complete antibiotics VIJAY secondary to severe dehydration -Resolving - Down to 1.3 today - will give 2 more liters of IV fluid as she still does appear to be clinically dry - Avoid nephrotoxins -Okay to restart lisinopril and monitor renal function closely Hypokalemia - Remains markedly hypokalemic with potassium down to 2.6 - Will give 60 mill equivalents - Repeat in a.m. and check a magnesium level Hypernatremia/hyperchloremia - Hypernatremia has resolved and hyper chloride anemia is resolving Diarrhea - Positive for fecal leuks however enteric panel and C. difficile are negative - Start Imodium 2 mg 3 times daily and will have her use as needed at home Leukocytosis -Resolved Thrombocytosis -Resolved Chronic anemia -Hemoglobin has dropped a bit more however she is markedly positive with regardsto fluids - Repeat at noon and if stable likely at her baseline - will recommend outpatient GI follow-up after discharge for diarrhea and and chronic anemia - Repeat lab in a.m. - no signs of bleeding Vaginal yeast infection - Patient was given 150 mg of Diflucan in the emergency department - this should complete treatment next-monitor clinically DM-2 uncontrolled - Hemoglobin A1c is greater than 13 - Documented noncompliance from endocrinology notes - Insulin started as noted above - Will have him follow-up with endocrinology after discharge Uncontrolled hypertension/hyperlipidemia -Continue lisinopril as blood pressure is controlled on this today - As needed hydralazine for systolic blood pressure greater than 160 -Has not required - Continue home atorvastatin History of right lower extremity BKA - Complication related to her diabetes - Stable Severe malnutrition - Dietitian following - Glucerna ordered 4 times daily - Patient also has protein supplementation with Jayy Tobacco abuse - Recommend cessation - Patient denies need for nicotine replacement therapy DVT prophylaxis - Subcu heparin twice daily CODE STATUS - Full code Charges/Coding Visit Charges Inpatient E&M: 90293 Subs Hosp L2 07/24/24 1206 <Electronically signed by Floresita Capellan DO> Cosigner Signature (if applicable): CC: ~ Signed [facility] Work Phone: 1(128) 538-938405-09-2025 Progress note [facility] Medical Records Department [address] [place] [address] Progress Note - Hospitalist 07/24/24 0747 MR#: [id number] Acct: [id number] Name: SANJUANITA JERRY Rep #:[id number] : 1965 59 From: Floresita Capellan DO PCP: Dr. Art Herman MD Status :ADM IN Location: [facility] NA315-0 Reason for Visit Reason for Visit: Generalized weakness Subjective Subjective Patient states overall she is feeling better. No complaints today. We did discuss that she would need to go home on insulin and steroid and to work on giving herself insulin shots. Blood pressure is much better with the addition of lisinopril. Objective Data Objective Data Vital Signs: Vital Signs Temp Pulse Resp BP Pulse Ox O2 Del Method O2 Flow Rate 98.9 F 86 14 110/57 L 100 Room Air 2 07/24/24 01:58 07/24/24 01:58 07/24/24 01:58 07/24/24 01:58 07/24/24 01:58 07/24/24 01:58 07/22/24 10:00 Oxygen Flow Rate (L/min) 2 Oxygen Delivery Method Room Air Weight: 37.9 kg Body Mass Index (BMI) 16.4 Intake & Output: Intake and Output for Last 24 Hours 07/22/24 07/23/24 07/24/24 23:59 23:59 23:59 Intake Total 4202.02 / 4202.52 3785.9033 / 3785.9033 Output Total 250 / 250 650 / 650 Balance 3952.02 / 3952.52 3135.9033 / 3135.9033 Lab / Micro Data 07/24/24 06:22 07/24/24 06:22 Labs: Laboratory Results - last 24 hr 07/23/24 06:47: Sodium 152 H, Potassium 2.8 L, Chloride 116 H, Carbon Dioxide 24.4, Anion Gap 12, BUN 28 H, Creatinine 1.30 H, Estim Creat Clear Calc 28.22 L,Est GFR (MDRD) Non-Af 48 L, BUN/Creatinine Ratio 21.2 H, Glucose 106 H, Calcium 7.8, Total Bilirubin 0.16, AST 43 H, ALT 7, Alkaline Phosphatase 79, Total Protein 5.6 L, Albumin 2.6 L, Globulin 3.0, Albumin/Globulin Ratio 0.9, TSH 1.070 07/23/24 08:07: POC Glucose 126 H 07/23/24 10:53: POC Glucose 138 H 07/23/24 15:55: POC Glucose 118 H 07/23/24 18:35: Sodium 140, Potassium 2.9 L, Chloride 106, Carbon Dioxide 23.1, Anion Gap 11, BUN 24 H, Creatinine 1.25 H, Estim Creat Clear Calc 29.35 L, Est GFR (MDRD) Non-Af 50 L, BUN/Creatinine Ratio 19.5, Glucose 106 H, Calcium 7.7 07/23/24 21:18: POC Glucose 57 L 07/23/24 21:40: POC Glucose 84 07/24/24 02:05: POC Glucose 165 H 07/24/24 06:22: WBC 11.0, RBC 2.65 L, Hgb 7.4 L, Hct 22.6 L, MCV 85.3, MCH 27.9,MCHC 32.7, RDW Std Deviation 46.1 H, RDW Coeff of Emily 14.8 H, Plt Count 312, MPV11.0, Immature Gran % (Auto) 0.500, Neut % (Auto) 80.3 H, Lymph % (Auto) 13.9 L,Andrew % (Auto) 4.3, Eos % (Auto) 0.7, Baso % (Auto) 0.3, Absolute Neuts (auto) 8.8 H, Absolute Lymphs (auto) 1.53, Nucleated RBC % 0, Sodium 141, Potassium 2.6L*, Chloride 110 H, Carbon Dioxide 22.8, Anion Gap 8, BUN 20 H, Creatinine 1.18,Estim Creat Clear Calc 31.09 L, Est GFR (MDRD) Non-Af 54 L, BUN/Creatinine Ratio17.0, Glucose 147 H, Calcium 7.3 L Micro: Microbiology 07/23/24 10:30 Stool Stool Lactoferrin - Final 07/23/24 10:30 Stool Enteric Bacteriology - Final 07/23/24 10:30 Stool Clostridioides difficile (PCR) - Final 07/22/24 09:01 Urine, Catheterized Urine Culture - Preliminary GNR lactose leasing representative Rhythm Strip Rhythm Strip: Sinus Rhythm Rate: 85 Ectopy: None Physical Exam Const alert, oriented x3 and no apparent distress; Negative for average body habitus, healthy appearing or well nourished Constitutional Narrative: Cachectic appearing middle-aged, sitting up in bed watching television, appears comfortable, nontoxic, very pleasant General Appearance: cooperative HEENT normocephalic, head/scalp atraumatic and moist oral mucous membranes HEENT Narrative: Edentulous, Mallampati is 2, no thrush Resp normal respiratory effort, no retractions, no use of accessory muscles and clearto auscultation bilaterally Resp Narrative: Diminished but clear Auscultation: Negative for rales, rhonchi or wheezes Cardio regular rate, regular rhythm, S1 normal heart sound, S2 normal heart sound, no murmurs, no rub, no gallops and no clicks GI normal to inspection, nondistended, normoactive bowel sounds, soft to palpation and non-tender GI Narrative: Scaphoid abdomen Extremity no clubbing, cyanosis or edema Extremity Narrative: Decreased lean muscle mass, right lower extremity has BKA Neuro oriented x3, moves all extremities and no focal motor deficits Speech: speech normal Psych affect normal Psych Narrative: Very pleasant, calm, interacts appropriately Assessment & Plan Assessment/Plan (1) Hyperosmolar hyperglycemic state (HHS): (2) Dehydration: (3) VIJAY (acute kidney injury): (4) Abnormal urinalysis: (5) Vaginal yeast infection: (6) Leukocytosis: (7) Thrombocytosis: (8) High anion gap metabolic acidosis: (9) Uncontrolled hypertension: (10) Noncompliance: (11) Diarrhea: PLAN: Plan HHS with a history of DM-2 and noncompliance - Blood sugars are fairly well-controlled on regimen instituted yesterday - AM fasting sugar was 147 - Continue basal insulin at 20 units - Continue lispro 10 units 3 times daily - SSI -Continue carb controlled diet - Dietitian is is following - Ongoing nursing to instruct patient in insulin pen use - Continue to hold home oral medications patient was noncompliant E. coli UTI - Currently on ceftriaxone day 3 which will complete antibiotics VIJAY secondary to severe dehydration -Resolving - Down to 1.3 today - will give 2 more liters of IV fluid as she still does appear to be clinically dry - Avoid nephrotoxins -Okay to restart lisinopril and monitor renal function closely Hypokalemia - Remains markedly hypokalemic with potassium down to 2.6 - Will give 60 mill equivalents - Repeat in a.m. and check a magnesium level Hypernatremia/hyperchloremia - Hypernatremia has resolved and hyper chloride anemia is resolving Diarrhea - Positive for fecal leuks however enteric panel and C. difficile are negative - Start Imodium 2 mg 3 times daily and will have her use as needed at home Leukocytosis -Resolved Thrombocytosis -Resolved Chronic anemia -Hemoglobin has dropped a bit more however she is markedly positive with regardsto fluids - Repeat at noon and if stable likely at her baseline - will recommend outpatient GI follow-up after discharge for diarrhea and and chronic anemia - Repeat lab in a.m. - no signs of bleeding Vaginal yeast infection - Patient was given 150 mg of Diflucan in the emergency department - this should complete treatment next-monitor clinically DM-2 uncontrolled - Hemoglobin A1c is greater than 13 - Documented noncompliance from endocrinology notes - Insulin started as noted above - Will have him follow-up with endocrinology after discharge Uncontrolled hypertension/hyperlipidemia -Continue lisinopril as blood pressure is controlled on this today - As needed hydralazine for systolic blood pressure greater than 160 -Has not required - Continue home atorvastatin History of right lower extremity BKA - Complication related to her diabetes - Stable Severe malnutrition - Dietitian following - Glucerna ordered 4 times daily - Patient also has protein supplementation with Jayy Tobacco abuse - Recommend cessation - Patient denies need for nicotine replacement therapy DVT prophylaxis - Subcu heparin twice daily CODE STATUS - Full code Charges/Coding Visit Charges Inpatient E&M: 43004 Subs Hosp L2 07/24/24 1206 Cosigner Signature (if applicable): CC: ~ Signed [facility]05-08-2025 Progress note Author Floresita Capellan [facility] Note Date/Time July 23, 2024 11:42a m [facility] Medical Records Department [address] [place] [address] Progress Note - Hospitalist 07/23/24 0704 MR#: [id number] Acct: [id number] Name: SANJUANITA JERRY Rep #:[id number] : 1965 59 From: Floresita Capellan DO PCP: Dr. Art Herman MD Status :ADM IN Location: ICU CVICU20 1-1 Reason for Visit Reason for Visit: Generalized weakness Subjective Subjective Patient states she is much better. Apologizes for having to come in due to being sick. Told her that that is why we are here to help take care of her. Wewere able to get her off an insulin drip and start a diet and she is pleased about this. She is drinking water. States she still feels dry. Objective Data Objective Data Vital Signs: Vital Signs Temp Pulse Resp BP Pulse Ox O2 Del Method O2 Flow Rate 96.9 F L 75 14 143/67 H 100 Room Air 2 07/23/24 04:00 07/23/24 05:00 07/23/24 05:00 07/23/24 05:00 07/23/24 05:00 07/23/24 05:00 07/22/24 10:00 Oxygen Flow Rate (L/min) 2 Oxygen Delivery Method Room Air Weight: 37.9 kg Body Mass Index (BMI) 16.4 Intake & Output: Intake and Output for Last 24 Hours 07/21/24 07/22/24 07/23/24 23:59 23:59 23:59 Intake Total 4202.02 / 4202.52 535.9033 / 535.9033 Output Total 250 / 250 Balance 3952.02 / 3952.52 535.9033 / 535.9033 Lab / Micro Data 07/23/24 06:47 07/23/24 06:47 Labs: Laboratory Results - last 24 hr 07/22/24 07:16: WBC 22.5 H, RBC 3.96 L, Hgb 11.1 L, Hct 35.3 L, MCV 89.1, MCH 28.0, MCHC 31.4 L, RDW Std Deviation 47.3 H, RDW Coeff of Emily 14.6, Plt Count 526 H, MPV 11.3, Immature Gran % (Auto) 0.600, Neut % (Auto) 85.9 H, Lymph % (Auto) 9.5 L, Andrew % (Auto) 3.8, Eos % (Auto) 0.0, Baso % (Auto) 0.2, Absolute Neuts (auto) 19.3 H, Absolute Lymphs (auto) 2.13, Nucleated RBC % 0, Sodium 133,Potassium 2.3 L*, Chloride 82 L, Carbon Dioxide 30.7, Anion Gap 21 H, BUN 51 H, Creatinine 2.19 H, Estim Creat Clear Calc 19.01 L, Est GFR (MDRD) Non-Af 25 L, BUN/Creatinine Ratio 23.4 H, Glucose 1162 H*, Calcium 9.6, Magnesium 2.3 H, TotalBilirubin 0.29, AST 77 H, ALT 12, Alkaline Phosphatase 129 H, Troponin T High Sens 47 H, Total Protein 8.2, Albumin 3.6, Globulin 4.6 H, Albumin/Globulin Ratio 0.8 L, b-Hydroxybutyric mmol/L 0.4 07/22/24 08:09: Lactic Acid 1.0 07/22/24 08:30: Serum Osmolality 356 H 07/22/24 09:01: Urine Color Straw, Urine Clarity Sl. Cloudy, Urine pH 6.0, Ur Specific Monroe 1.005, Urine Protein 100 H, Urine Glucose (UA) 1000 H, Urine Ketones Negative, Urine Occult Blood 250 H, Urine Nitrite Negative, Urine Bilirubin Negative, Urine Urobilinogen Normal, Ur Leukocyte Esterase 500 H, Urine RBC 0-5 SEEN, Urine WBC 25-50 SEEN, Ur Squamous Epith Cells 0 SEEN, Urine Bacteria 2+, Urine Mucus 0 SEEN 07/22/24 11:35: Hemoglobin A1c 13.7 H, Troponin T Hi Sens 4Hr 40 H 07/22/24 12:13: POC Glucose > 500 H* 07/22/24 12:55: Glucose 747 H* 07/22/24 12:58: POC Glucose > 500 H* 07/22/24 13:55: Sodium 143, Potassium 2.8 L, Chloride 104, Carbon Dioxide 28.8, Anion Gap 10, BUN 41 H, Creatinine 1.61 H, Estim Creat Clear Calc 21.16 L, Est GFR (MDRD) Non-Af 37 L, BUN/Creatinine Ratio 25.5 H, Glucose 629 H*, Calcium 8.2, Phosphorus 0.7 L*, Magnesium 1.7 07/22/24 14:56: POC Glucose > 500 H* 07/22/24 15:52: POC Glucose 475 H* 07/22/24 17:02: POC Glucose 481 H* 07/22/24 17:59: POC Glucose 406 H 07/22/24 18:15: Sodium 147 H, Potassium 2.8 L, Chloride 109 H, Carbon Dioxide 28.0, Anion Gap 10, BUN 36 H, Creatinine 1.47 H, Estim Creat Clear Calc 23.18 L,Est GFR (MDRD) Non-Af 41 L, BUN/Creatinine Ratio 24.8 H, Glucose 475 H*, Calcium7.8, Phosphorus 1.2 L*, Magnesium 1.6 07/22/24 19:07: POC Glucose 423 H 07/22/24 20:06: POC Glucose 303 H 07/22/24 21:01: POC Glucose 293 H 07/22/24 22:00: Sodium 151 H, Potassium 3.3, Chloride 114 H, Carbon Dioxide 27.5, Anion Gap 9, BUN 33 H, Creatinine 1.39 H, Estim Creat Clear Calc 24.51 L, Est GFR (MDRD) Non-Af 44 L, BUN/Creatinine Ratio 23.6 H, Glucose 260 H, Calcium 7.6, Phosphorus 3.5, Magnesium 1.7 07/22/24 22:01: POC Glucose 239 H 07/22/24 23:02: POC Glucose 212 H 07/23/24 00:06: POC Glucose 263 H 07/23/24 00:58: POC Glucose 275 H 07/23/24 02:16: POC Glucose 223 H 07/23/24 02:38: Sodium 150 H, Potassium 3.0 L, Chloride 115 H, Carbon Dioxide 26.3, Anion Gap 9, BUN 30 H, Creatinine 1.36 H, Estim Creat Clear Calc 25.06 L, Est GFR (MDRD) Non-Af 45 L, BUN/Creatinine Ratio 21.8 H, Glucose 289 H, Calcium 7.5 L 07/23/24 03:27: POC Glucose 196 H 07/23/24 04:12: POC Glucose 213 H 07/23/24 05:05: POC Glucose 179 H ABG Data ABG results: ABG 07/22/24 08:21 Specimen Type REYNA Sample Site Not entered VBG pH 7.26 L VBG pO2 176 H VBG HCO3 8 L VBG Total CO2 8 L VBG O2 Sat (Calc) 99 H VBG Base Excess -19 L POC Mix VBG pCO2 Pt Tmp 17.4 L* O2 Delivery Device Not entered Crit Call To/Read Back Yes [facility] Notified Time 08:22:35 Radiography Diagnostic Testing: Radiology Impression Brain CT 07/22/24 07:20 IMPRESSION: No intracranial hemorrhage, mass effect or CT evidence of large vascular territory acute infarct. Reading Location: [id number] Chest X-Ray 07/22/24 07:40 IMPRESSION: No evidence of acute disease. Reading Location: [facility] Rhythm Strip Rhythm Strip: Sinus Rhythm Rate: 85 Ectopy: None Physical Exam Const alert, oriented x3 and no apparent distress; Negative for average body habitus, healthy appearing or well nourished Constitutional Narrative: Cachectic appearing middle-aged, white female sitting up in bed drinking water and watching television, appears comfortable, does not look toxic General Appearance: cooperative HEENT normocephalic, head/scalp atraumatic and moist oral mucous membranes HEENT Narrative: Edentulous, Mallampati is 1-2, no thrush Eyes EOMs intact bilaterally Eyes Narrative: Mild conjunctiva pallor bilaterally, no scleral icterus Neck supple Neck Narrative: Trachea midline Resp normal respiratory effort, no retractions, no use of accessory muscles and clearto auscultation bilaterally Resp Narrative: Diminished but clear Auscultation: Negative for rales, rhonchi or wheezes Cardio regular rate, regular rhythm, S1 normal heart sound, S2 normal heart sound, no murmurs, no rub, no gallops and no clicks GI normal to inspection, nondistended, normoactive bowel sounds, soft to palpation and non-tender GI Narrative: Scaphoid abdomen Extremity no clubbing, cyanosis or edema Extremity Narrative: Decreased lean muscle mass, right lower extremity has BKA Neuro oriented x3, moves all extremities and no focal motor deficits Speech: speech normal Psych affect normal Psych Narrative: Appreciated of care, eye contact is good, patient much more calm today Assessment & Plan Assessment/Plan (1) Hyperosmolar hyperglycemic state (HHS): (2) Dehydration: (3) VIJAY (acute kidney injury): (4) Abnormal urinalysis: (5) Vaginal yeast infection: (6) Leukocytosis: (7) Thrombocytosis: (8) High anion gap metabolic acidosis: (9) Uncontrolled hypertension: (10) Noncompliance: (11) Diarrhea: PLAN: Plan HHS with a history of DM-2 and noncompliance - HHS has resolved - Discontinue insulin drip - Start subcu insulin with 20 units of basal insulin daily - Start lispro 10 units 3 times daily - SSI - Will continue 2 more liters of IV fluids - Start carb controlled diet - Dietitian consultation - Nursing to instruct patient in insulin pen use - Continue to hold home oral medications patient was noncompliant VIJAY secondary to severe dehydration -Resolving - Down to 1.3 today - will give 2 more liters of IV fluid as she still does appear to be clinically dry - Avoid nephrotoxins -Okay to restart lisinopril and monitor renal function closely Hypokalemia - Continue with aggressive replacement - Stop IV fluids with potassium - Give 60 p.o. and recheck Hypernatremia/hyperchloremia - Secondary to IV fluids - Transition to half-normal with 2 more liters and then discontinue IV fluids Diarrhea -Stool studies have been collected and pending - May be osmotic diarrhea from hyperglycemia - Continue to monitor stool output - Patient with only 2 documented bowel movements today so far - Could consider Imodium if stool studies are negative Leukocytosis - White count remains elevated however has trended down - Still studies in progress - Continue to trend - Patient is on antibiotics for suspected UTI and was given Diflucan for vaginalyeast infection Thrombocytosis -Resolved - Likely related to hemoconcentration Chronic anemia -Hemoglobin appears to be back to her baseline - Repeat lab in a.m. - no signs of bleeding Anion gap metabolic acidosis -Resolved Vaginal yeast infection - Patient was given 150 mg of Diflucan in the emergency department - this should complete treatment next-monitor clinically Leukocytosis - Cultures obtained - Abnormal UA so we will start ceftriaxone for suspected UTI and await cultures - Will trend - Suspect marked elevation related to hemoconcentration Abnormal UA - Ceftriaxone for now - Culture remains pending DM-2 uncontrolled - Hemoglobin A1c is greater than 13 - Documented noncompliance from endocrinology notes -Insulin started as noted above Uncontrolled hypertension/hyperlipidemia -Restart lisinopril 20 mg - As needed hydralazine for systolic blood pressure greater than 160 - Continue home atorvastatin History of right lower extremity BKA - Complication related to her diabetes - Stable Severe malnutrition - Dietitian following - Glucerna ordered 4 times daily - Patient also has protein supplementation with Jayy Tobacco abuse - Recommend cessation - Patient denies need for nicotine replacement therapy DVT prophylaxis - Subcu heparin twice daily CODE STATUS - Full code as verified at the time of admission Charges/Coding Visit Charges Inpatient E&M: 47205 Subs Hosp L3 07/23/24 1142 <Electronically signed by Floresita Capellan DO> Cosigner Signature (if applicable): CC: ~ Signed [facility] Work Phone: [phone] 706-262605-08-2025 Progress note [facility] Medical Records Department [address] [place] [address] Progress Note - Hospitalist 07/23/24703 MR#: [id number] Acct: [id number] Name: SANJUANITA JERRY Rep #:[id number] : 1965 59 From: Floresita Capellan DO PCP: Dr. Art Herman MD Status :ADM IN Location: ICU CVICU20 03-18 Reason for Visit Reason for Visit: Generalized weakness Subjective Subjective Patient states she is much better. Apologizes for having to come in due to being sick. Told her that that is why we are here to help take care of her. Wewere able to get her off an insulin drip and start a diet and she is pleased about this. She is drinking water. States she still feels dry. Objective Data Objective Data Vital Signs: Vital Signs Temp Pulse Resp BP Pulse Ox O2 Del Method O2 Flow Rate 96.9 F L 75 14 143/67 H 100 Room Air 2 07/23/24 04:00 07/23/24 05:00 07/23/24 05:00 07/23/24 05:00 07/23/24 05:00 07/23/24 05:00 07/22/24 10:00 Oxygen Flow Rate (L/min) 2 Oxygen Delivery Method Room Air Weight: 37.9 kg Body Mass Index (BMI) 16.4 Intake & Output: Intake and Output for Last 24 Hours 07/21/24 07/22/24 07/23/24 23:59 23:59 23:59 Intake Total 4202.02 / 4202.52 535.9033 / 535.9033 Output Total 250 / 250 Balance 3952.02 / 3952.52 535.9033 / 535.9033 Lab / Micro Data 07/23/24 06:47 07/23/24 06:47 Labs: Laboratory Results - last 24 hr 07/22/24 07:16: WBC 22.5 H, RBC 3.96 L, Hgb 11.1 L, Hct 35.3 L, MCV 89.1, MCH 28.0, MCHC 31.4 L, RDW Std Deviation 47.3 H, RDW Coeff of Emily 14.6, Plt Count 526 H, MPV 11.3, Immature Gran % (Auto) 0.600, Neut % (Auto) 85.9 H, Lymph % (Auto) 9.5 L, Andrew % (Auto) 3.8, Eos % (Auto) 0.0, Baso % (Auto) 0.2, Absolute Neuts (auto) 19.3 H, Absolute Lymphs (auto) 2.13, Nucleated RBC % 0, Sodium 133,Potassium 2.3 L*, Chloride 82 L, Carbon Dioxide 30.7, Anion Gap 21 H, BUN 51 H, Creatinine 2.19 H, Estim Creat Clear Calc 19.01 L, Est GFR (MDRD) Non-Af 25 L, BUN/Creatinine Ratio 23.4 H, Glucose 1162 H*, Calcium 9.6, Magnesium 2.3 H, TotalBilirubin 0.29, AST 77 H, ALT 12, Alkaline Phosphatase 129 H, Troponin T High Sens 47 H, Total Protein 8.2, Albumin 3.6, Globulin 4.6 H, Albumin/Globulin Ratio 0.8 L, b-Hydroxybutyric mmol/L 0.4 07/22/24 08:09: Lactic Acid 1.0 07/22/24 08:30: Serum Osmolality 356 H 07/22/24 09:01: Urine Color Straw, Urine Clarity Sl. Cloudy, Urine pH 6.0, Ur Specific Monroe 1.005, Urine Protein 100 H, Urine Glucose (UA) 1000 H, Urine Ketones Negative, Urine Occult Blood 250 H,Urine Nitrite Negative, Urine Bilirubin Negative, Urine Urobilinogen Normal, Ur Leukocyte Esterase 500 H, Urine RBC 0-5 SEEN, Urine WBC 25-50 SEEN, Ur Squamous Epith Cells 0 SEEN, Urine Bacteria 2+, Urine Mucus 0 SEEN 07/22/24 11:35: Hemoglobin A1c 13.7 H, Troponin T Hi Sens 4Hr 40 H 07/22/24 12:13: POC Glucose > 500 H* 07/22/24 12:55: Glucose 747 H* 07/22/24 12:58: POC Glucose > 500 H* 07/22/24 13:55: Sodium 143, Potassium 2.8 L, Chloride 104, Carbon Dioxide 28.8, Anion Gap 10, BUN 41 H, Creatinine 1.61 H, Estim Creat Clear Calc 21.16 L, Est GFR (MDRD) Non-Af 37 L, BUN/Creatinine Ratio 25.5 H, Glucose 629 H*, Calcium 8.2, Phosphorus 0.7 L*, Magnesium 1.7 07/22/24 14:56: POC Glucose > 500 H* 07/22/24 15:52: POC Glucose 475 H* 07/22/24 17:02: POC Glucose 481 H* 07/22/24 17:59: POC Glucose 406 H 07/22/24 18:15: Sodium 147 H, Potassium 2.8 L, Chloride 109 H, Carbon Dioxide 28.0, Anion Gap 10, BUN 36 H, Creatinine 1.47 H, Estim Creat Clear Calc 23.18 L,Est GFR (MDRD) Non-Af 41 L, BUN/Creatinine Ratio 24.8 H, Glucose 475 H*, Calcium7.8, Phosphorus 1.2 L*, Magnesium 1.6 07/22/24 19:07: POC Glucose 423 H 07/22/24 20:06: POC Glucose 303 H 07/22/24 21:01: POC Glucose 293 H 07/22/24 22:00: Sodium 151 H, Potassium 3.3, Chloride 114 H, Carbon Dioxide 27.5, Anion Gap 9, BUN 33 H, Creatinine 1.39 H, Estim Creat Clear Calc 24.51 L, Est GFR (MDRD) Non-Af 44 L, BUN/Creatinine Ratio 23.6 H, Glucose 260 H, Calcium 7.6, Phosphorus 3.5, Magnesium 1.7 07/22/24 22:01: POC Glucose 239 H 07/22/24 23:02: POC Glucose 212 H 07/23/24 00:06: POC Glucose 263 H 07/23/24 00:58: POC Glucose 275 H 07/23/24 02:16: POC Glucose 223 H 07/23/24 02:38: Sodium 150 H, Potassium 3.0 L, Chloride 115 H, Carbon Dioxide 26.3, Anion Gap 9, BUN 30 H, Creatinine 1.36 H, Estim Creat Clear Calc 25.06 L, Est GFR (MDRD) Non-Af 45 L, BUN/Creatinine Ratio 21.8 H, Glucose 289 H, Calcium 7.5 L 07/23/24 03:27: POC Glucose 196 H 07/23/24 04:12: POC Glucose 213 H 07/23/24 05:05: POC Glucose 179 H ABG Data ABG results: ABG 07/22/24 08:21 Specimen Type REYNA Sample Site Not entered VBG pH 7.26 L VBG pO2 176 H VBG HCO3 8 L VBG Total CO2 8 L VBG O2 Sat (Calc) 99 H VBG Base Excess -19 L POC Mix VBG pCO2 Pt Tmp 17.4 L* O2 Delivery Device Not entered Crit Call To/Read Back Yes Blood Gas Notified Whom jared Blood Gas Notified Time 08:22:35 Radiography Diagnostic Testing: Radiology Impression Brain CT 07/22/24 07:20 IMPRESSION: No intracranial hemorrhage, mass effect or CT evidence of large vascular territory acute infarct. Reading Location: [facility] Chest X-Ray 07/22/24 07:40 IMPRESSION: No evidence of acute disease. Reading Location: [facility] Rhythm Strip Rhythm Strip: Sinus Rhythm Rate: 85 Ectopy: None Physical Exam Const alert, oriented x3 and no apparent distress; Negative for average body habitus, healthy appearing or well nourished Constitutional Narrative: Cachectic appearing middle-aged, white female sitting up in bed drinking water and watching television, appears comfortable, does not look toxic General Appearance: cooperative HEENT normocephalic, head/scalp atraumatic and moist oral mucous membranes HEENT Narrative: Edentulous, Mallampati is 1-2, no thrush Eyes EOMs intact bilaterally Eyes Narrative: Mild conjunctiva pallor bilaterally, no scleral icterus Neck supple Neck Narrative: Trachea midline Resp normal respiratory effort, no retractions, no use of accessory muscles and clearto auscultation bilaterally Resp Narrative: Diminished but clear Auscultation: Negative for rales, rhonchi or wheezes Cardio regular rate, regular rhythm, S1 normal heart sound, S2 normal heart sound, no murmurs, no rub, no gallops and no clicks GI normal to inspection, nondistended, normoactive bowel sounds, soft to palpation and non-tender GI Narrative: Scaphoid abdomen Extremity no clubbing, cyanosis or edema Extremity Narrative: Decreased lean muscle mass, right lower extremity has BKA Neuro oriented x3, moves all extremities and no focal motor deficits Speech: speech normal Psych affect normal Psych Narrative: Appreciated of care, eye contact is good, patient much more calm today Assessment & Plan Assessment/Plan (1) Hyperosmolar hyperglycemic state (HHS): (2) Dehydration: (3) VIJAY (acute kidney injury): (4) Abnormal urinalysis: (5) Vaginal yeast infection: (6) Leukocytosis: (7) Thrombocytosis: (8) High anion gap metabolic acidosis: (9) Uncontrolled hypertension: (10) Noncompliance: (11) Diarrhea: PLAN: Plan HHS with a history of DM-2 and noncompliance - HHS has resolved - Discontinue insulin drip - Start subcu insulin with 20 units of basal insulin daily - Start lispro 10 units 3 times daily - SSI - Will continue 2 more liters of IV fluids - Start carb controlled diet - Dietitian consultation - Nursing to instruct patient in insulin pen use - Continue to hold home oral medications patient was noncompliant VIJAY secondary to severe dehydration -Resolving - Down to 1.3 today - will give 2 more liters of IV fluid as she still does appear to be clinically dry - Avoid nephrotoxins -Okay to restart lisinopril and monitor renal function closely Hypokalemia - Continue with aggressive replacement - Stop IV fluids with potassium - Give 60 p.o. and recheck Hypernatremia/hyperchloremia - Secondary to IV fluids - Transition to half-normal with 2 more liters and then discontinue IV fluids Diarrhea -Stool studies have been collected and pending - May be osmotic diarrhea from hyperglycemia - Continue to monitor stool output - Patient with only 2 documented bowel movements today so far - Could consider Imodium if stool studies are negative Leukocytosis - White count remains elevated however has trended down - Still studies in progress - Continue to trend - Patient is on antibiotics for suspected UTI and was given Diflucan for vaginalyeast infection Thrombocytosis -Resolved - Likely related to hemoconcentration Chronic anemia -Hemoglobin appears to be back to her baseline - Repeat lab in a.m. - no signs of bleeding Anion gap metabolic acidosis -Resolved Vaginal yeast infection - Patient was given 150 mg of Diflucan in the emergency department - this should complete treatment next-monitor clinically Leukocytosis - Cultures obtained - Abnormal UA so we will start ceftriaxone for suspected UTI and await cultures - Will trend - Suspect marked elevation related to hemoconcentration Abnormal UA - Ceftriaxone for now - Culture remains pending DM-2 uncontrolled - Hemoglobin A1c is greater than 13 - Documented noncompliance from endocrinology notes -Insulin started as noted above Uncontrolled hypertension/hyperlipidemia -Restart lisinopril 20 mg - As needed hydralazine for systolic blood pressure greater than 160 - Continue home atorvastatin History of right lower extremity BKA - Complication related to her diabetes - Stable Severe malnutrition - Dietitian following - Glucerna ordered 4 times daily - Patient also has protein supplementation with Jayy Tobacco abuse - Recommend cessation - Patient denies need for nicotine replacement therapy DVT prophylaxis - Subcu heparin twice daily CODE STATUS - Full code as verified at the time of admission Charges/Coding Visit Charges Inpatient E&M: 20915 Subs Hosp L3 07/23/24 1142 Cosigner Signature (if applicable): CC: ~ Signed [facility]05-07-2025 History and physical note Author Floresita Capellan [facility] Note Date/Time July 22, 2024 5:[address] [place] [address] System Medical Records Department [address] [place] [address] H&P Exam - Hospitalist 07/22/24 0952 MR#: [id number] Acct: [id number] Name: SANJUANITA JERRY Rep #:[id number] : 1965 59 From: Floresita Capellan DO PCP: Dr. Art Herman MD Status :ADM IN Location: ICU [id number] 1-1 HPI - General General Date of Admission: 07/22/24 Date of Service: 07/22/24 Chief Complaint: Generalized weakness HPI Narrative SANJUANITA JERRY, is a 59 F who presented to the emergency department [facility] on 07/22/2024 with a chief complaint of generalized weakness. There was apparently some concern for stroke because the last night about 1:30 AM she had some intermittent paresthesias in her right hand and fingers. Thoughsymptoms are resolved. Her daughter noted that her voice or speech was different at that time as well but her daughter was at work. This morning her daughter still felt her speech was changed so she called EMS. Patient reported she had intermittent diarrhea and nausea for about 3 weeks. She has not been taking any of her home medications including her insulin. She denies any fever or chills, she denied abdominal pain, she indicated she was extremely thirsty and wanted to drink. She follows with endocrinology as an outpatient with her last visit being on 05/27/2024. It appears there is a long history of noncompliance. Vital signs at the time of presentation showed a temperature of 97.1, heart rate93, respiratory rate was 16, blood pressure was 125/109 and pulse ox was 98% on room air. CBC showed a white count of 22.5 with a hemoglobin of 11.1 and thrombocytosis with a platelet count of 526,000 CBC appears to be markedly hemoconcentrated compared to her baseline. A VBG was obtained and her pH was 7.26. Her chemistry showed marked hypokalemia with potassium of 2.3 she had significant VIJAY with serum creatinine of 2.19 and a BUN of 51. Anion gap was elevated at 21 however her bicarb was normal at 30.7 I suspect this is all contraction related and her anion gap is elevated related to her VIJAY. Serum creatinine baseline is between 0.8 and 1.0. Serum glucose on presentation was 1162. Serum osmolality was elevated at 356. Lactic acid was normal at 1. Magnesium was normal at 2.3 however phosphorus was found to be 0.7. Liver functions were fairly unremarkable. Initial troponin was 47 with a delta of 40 and patient denying any chest pain I suspect this is elevated due to her VIJAY. Beta hydroxybutyrate was normal. Her UA is suggestive of infection. CT of brain was unremarkable for any acute findings. Chest x-ray is unremarkable. Patient was aggressively hydrated and treated for hypokalemia in the emergency department and given subcu insulin. 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 Below knee amputation Dysphagia Acid reflux Diabetes Home Medications ?Medication ?Instructions ?Recorded ?Last Taken ?Type albuterol sulfate 90 mcg/actuation 2 puff inhalation Q 4H PRN Sob &/Or 10/01/18 Unknown History aerosol inhaler Wheezing dapagliflozin propanediol 10 mg 10 mg PO DAILY blood s ugars 09/20/22 02/25/23 History tablet (Farxiga) atorvastatin 40 mg tablet 40 mg PO QHS cholesterol 03/0902/25/23 History cholecalciferol (vitamin D3) 25 25 mcg PO DAILY supple ment 02/26/23 02/25/23 History mcg (1,000 unit) tablet ferrous sulfate 325 mg (65 mg 325 mg PO DAILY suppleme nt 02/26/23 02/25/23 History iron) tablet (FeroSul) lisinopril 5 mg tablet 5 mg PO DAILY blood pressure 02/26/23 02/25/23 History blood-glucose meter (True Metrix #1 ea 08/19/23 Unknow n Rx Glucose Meter) True Metrix Glucose Test Strip #50 ea 06/30/24 Unknown Rx (blood sugar diagnostic) glipizide 5 mg tablet 5 mg PO BID #60 tabs 5 Unknown Rx Allergy/AdvReac Type Severity Reaction Status Date / Time No Known Allergies Allergy Verified 05/27/24 10:09 Family History Grandmother Breast cancer Father Heart disease Hypertension Sister Thyroid disorder Aunt Thyroid disorder Other Arthritis CVA (cerebral vascular accident) Kidney disease Myocardial infarction Surgical History History of appendectomy Status post below knee amputation of right lower extremity history EGD with dilatation S/P appendectomy H/O thumb surgery Social History household members: family Smoking Status: Heavy Smoker (>10/day) alcohol intake: never substance use type: does not use what type of physical activity do you participate in: walking ROS Constitutional Constitutional: Reports change in weight and weakness; Denies anorexia, chills, fatigue, fever(s), malaise, night sweats or other Eyes Eyes: Denies blurry vision, change in eye color, change in vision, discharge from eye(s), double vision, erythema, eye pain, loss of vision or other ENT HEENT: Denies abnormal hearing, dysphagia, ear pain, epistaxis, headache(s), hearing loss, nasal congestion, nasal discharge, post nasal drip, sinus pressure, sore throat or other Cardiovascular Cardiovascular: Denies chest pain, claudication, dyspnea on exertion, edema, lightheadedness, orthopnea, palpitations, paroxysmal nocturnal dyspnea, rapid heart rate, syncope or other Respiratory/Chest Respiratory/Chest: Denies cough, dyspnea, excessive phlegm production, hemoptysis, productive cough, shortness of breath at rest, shortness of breath with exertion, wheezing or other Gastrointestinal Gastrointestinal: Reports diarrhea, nausea and vomiting; Denies abdominal pain, coffee ground emesis, constipation, dyspepsia, hematemesis, hematochezia, loose stools, melena or other Genitourinary Genitourinary: Reports urinary frequency; Denies burning urination, difficulty urinating, dysuria, hematuria, nocturia, urinary hesitancy, urinary incontinence, urinary urgency or other Musculoskeletal Musculoskeletal: Denies arthralgias, back pain, joint pain, joint stiffness, joint swelling, myalgias, neck pain or other Neurologic Neurologic: Denies abnormal gait, abnormal speech, confusion, disequilibrium, dizziness, focal weakness, headache(s), numbness, paresthesias, seizure-like activity, seizures, syncope, tingling, tremor(s) or other Psychiatric Psychiatric: Denies anxiety, depression, homicidal ideation, suicidal ideation or other Endocrine Endocrinology: Reports polydipsia and polyuria; Denies change in body appearance, cold intolerance, excessive sweating, heat intolerance or other Hematologic/Lymphatic Hematologic/Lymphatic: Denies anemia, easy bleeding, easy bruising, lymphadenopathy or other Allergic/Immunologic Allergic/Immunologic: Denies rhinitis, hives, eczemia, asthma or other Vital Signs Vital Signs Vital Signs: 07/22/24 07:14 07/22/24 07:21 07/22/24 08:13 Temperature 97.1 F L Temperature Source Oral Pulse Rate 93 76 Respiratory Rate 16 24 H Respiratory Effort Normal Respiratory Pattern Normal Blood Pressure 125/109 H Blood Pressure Mean 114 Pulse Ox 98 Oxygen Delivery Method Room Air Nasal Cannula Oxygen Flow Rate (L/min) 2 07/22/24 09:00 Temperature Temperature Source Pulse Rate 84 Respiratory Rate 19 H Respiratory Effort Respiratory Pattern Blood Pressure 178/106 H Blood Pressure Mean 130 Pulse Ox 100 Oxygen Delivery Method Nasal Cannula Oxygen Flow Rate (L/min) 2 Weight Weight: 43 kg Body Mass Index (BMI) 18.5 Physical Exam Const alert, oriented x3 and no apparent distress; Negative for average body habitus, healthy appearing or well nourished Constitutional Narrative: Cachectic appearing middle-aged, white female who appears much older than statedage, lying in bed, appears comfortable, does not appear toxic General Appearance: cooperative HEENT normocephalic, head/scalp atraumatic and moist oral mucous membranes HEENT Narrative: Edentulous, Mallampati is 1, no thrush Eyes EOMs intact bilaterally and conjunctivae normal Eyes Narrative: No scleral icterus Neck supple Neck Narrative: Trachea midline, mild thyroid enlargement without any nodularity identified Resp normal respiratory effort, no retractions, no use of accessory muscles and clearto auscultation bilaterally Resp Narrative: Diminished but clear Auscultation: Negative for rales, rhonchi or wheezes Cardio regular rate, regular rhythm, S1 normal heart sound, S2 normal heart sound, no murmurs, no rub, no gallops and no clicks GI normal to inspection, nondistended, normoactive bowel sounds, soft to palpation and non-tender GI Narrative: Scaphoid abdomen Extremity no clubbing, cyanosis or edema Extremity Narrative: Decreased lean muscle mass, right lower extremity has BKA Neuro CN's II-XII intact bilaterally, moves all extremities and no focal motor deficits Neuro Narrative: Decree sensation left distal lower extremity Speech: speech normal Psych Psych Narrative: Patient was somewhat of flight of ideas Mood & Affect: anxious Results Lab / Micro Data 07/22/24 07:16 07/22/24 13:55 Labs: Laboratory Results - last 24 hr 07/22/24 07:16: WBC 22.5 H, RBC 3.96 L, Hgb 11.1 L, Hct 35.3 L, MCV 89.1, MCH 28.0, MCHC 31.4 L, RDW Std Deviation 47.3 H, RDW Coeff of Emily 14.6, Plt Count 526 H, MPV 11.3, Immature Gran % (Auto) 0.600, Neut % (Auto) 85.9 H, Lymph % (Auto) 9.5 L, Andrew % (Auto) 3.8, Eos % (Auto) 0.0, Baso % (Auto) 0.2, Absolute Neuts (auto) 19.3 H, Absolute Lymphs (auto) 2.13, Nucleated RBC % 0, Sodium 133,Potassium 2.3 L*, Chloride 82 L, Carbon Dioxide 30.7, Anion Gap 21 H, BUN 51 H, Creatinine 2.19 H, Estim Creat Clear Calc 19.01 L, Est GFR (MDRD) Non-Af 25 L, BUN/Creatinine Ratio 23.4 H, Glucose 1162 H*, Calcium 9.6, Magnesium 2.3 H, TotalBilirubin 0.29, AST 77 H, ALT 12, Alkaline Phosphatase 129 H, Troponin T High Sens 47 H, Total Protein 8.2, Albumin 3.6, Globulin 4.6 H, Albumin/Globulin Ratio 0.8 L, b-Hydroxybutyric mmol/L 0.4 07/22/24 08:09: Lactic Acid 1.0 07/22/24 09:01: Urine Color Straw, Urine Clarity Sl. Cloudy, Urine pH 6.0, Ur Specific [place] 1.005, Urine Protein 100 H, Urine Glucose (UA) 1000 H, Urine Ketones Negative, Urine Occult Blood 250 H, Urine Nitrite Negative, Urine Bilirubin Negative, Urine Urobilinogen Normal, Ur Leukocyte Esterase 500 H, Urine RBC 0-5 SEEN, Urine WBC 25-50 SEEN, Ur Squamous Epith Cells 0 SEEN, Urine Bacteria 2+, Urine Mucus 0 SEEN ABG Data ABG results: ABG 07/22/24 08:21 Specimen Type REYNA Sample Site Not entered VBG pH 7.26 L VBG pO2 176 H VBG HCO3 8 L VBG Total CO2 8 L VBG O2 Sat (Calc) 99 H VBG Base Excess -19 L POC Mix VBG pCO2 Pt Tmp 17.4 L* O2 Delivery Device Not entered Crit Call To/Read Back Yes Blood Gas Notified [facility] Blood Gas Notified Time 08:22:35 Rhythm Strip Rhythm Strip: Sinus Rhythm Rate: 85 Ectopy: None Imaging Radiology Impression Brain CT 07/22/24 07:20 IMPRESSION: No intracranial hemorrhage, mass effect or CT evidence of large vascular territory acute infarct. Reading Location: [facility] Chest X-Ray 07/22/24 07:40 IMPRESSION: No evidence of acute disease. Reading Location: [facility] Assessment & Plan Assessment/Plan (1) Hyperosmolar hyperglycemic state (HHS): (2) Dehydration: (3) VIJAY (acute kidney injury): (4) Abnormal urinalysis: (5) Vaginal yeast infection: (6) Leukocytosis: (7) Thrombocytosis: (8) High anion gap metabolic acidosis: (9) Uncontrolled hypertension: (10) Noncompliance: (11) Diarrhea: PLAN: Plan HHS with a history of DM-2 and noncompliance -Insulin drip at 0.05 -Aggressive IV fluids - Serial BMPs, magnesium, and phosphorus - Will transition off of drip once blood sugars stabilize and trend down below 250 - Will likely need subcu insulin - Will need discussed with endocrinology as she does follow with them at baseline - N.p.o. for now will likely start diet tomorrow VIJAY secondary to severe dehydration - Suspect renal function should improve with aggressive fluids - Serial lab as noted above - Avoid nephrotoxins - Hold home lisinopril Diarrhea - Check stool studies - May be osmotic diarrhea from hyperglycemia Thrombocytosis - Highly suspect related to volume contraction - Repeat lab in a.m. Chronic anemia - Hemoglobin higher than typical however patient hemoconcentrated - Suspect precipitous drop with hydration - Repeat lab in a.m. - no signs of bleeding Anion gap metabolic acidosis - pH is slightly low on VBG - Suspect related to VIJAY - No signs of DKA as beta hydroxybutyrate is normal - Trend with serial BMPs should clear quite quickly with improvement in renal function Vaginal yeast infection - Patient was given 150 mg of Diflucan in the emergency department - this should complete treatment next-monitor clinically Leukocytosis - Cultures obtained - Abnormal UA so we will start ceftriaxone for suspected UTI and await cultures - Will trend - Suspect marked elevation related to hemoconcentration Abnormal UA - Ceftriaxone for now - Culture pending DM-2 uncontrolled - Hemoglobin A1c is greater than 13 - Documented noncompliance from endocrinology notes - Will likely need insulin at discharge but will talk to endocrinology tomorrow for advice Uncontrolled hypertension/hyperlipidemia - Hold lisinopril - As needed hydralazine for now and will trend - Reevaluate needs for scheduled antihypertensives over the next 24 hours - Continue home atorvastatin History of right lower extremity BKA - Complication related to her diabetes - Stable Severe malnutrition - Dietitian consultation - Will need supplements once p.o. intake can be initiated Tobacco abuse - Recommend cessation - Patient denies need for nicotine replacement therapy DVT prophylaxis - Subcu heparin twice daily CODE STATUS - Full code as verified at the time of admission Charges/Coding Visit Charges Inpatient E&M: 50560 Init Hosp L3 07/22/24 1732 <Electronically signed by Floresita Capellan DO> Cosigner Signature (if applicable): CC: Dr. Art Herman MD; Dr. Floresita Capellan DO~ Signed [facility] Work Phone: [phone] 324-954605-07-2025 History and physical note [facility] System Medical Records Department [address] [place] [address] H&P Exam - Hospitalist 07/22/24 0952 MR#: [id number] Acct: [id number] Name: SANJUANITA JERRY Rep #:[id number] : 1965 59 From: Floresita Capellan DO PCP: Dr. Art Herman MD Status :ADM IN Location: ICU CVICU20 03-18 HPI - General General Date of Admission: 07/22/24 Date of Service: 07/22/24 Chief Complaint: Generalized weakness HPI Narrative SANJUANITA JERRY, is a 59 F who presented to the emergency department [facility] on 07/22/2024 with a chief complaint of generalized weakness. There was apparently some concern for stroke because the last night about 1:30 AM she had some intermittent paresthesias in her right hand and fingers. Thoughsymptoms are resolved. Her daughter noted that her voice or speech was different at that time as well but her daughter was at work. This morning her daughter still felt her speech was changed so she called EMS. Patient reported she had intermittent diarrhea and nausea for about 3 weeks. She has not been taking any of her home medications including her insulin. She denies any fever or chills, she denied abdominal pain, she indicated she was extremely thirsty and wanted to drink. She follows with endocrinology as an outpatient with her last visit being on 05/27/2024. It appears there ligia long history of noncompliance. Vital signs at the time of presentation showed a temperature of 97.1, heart rate93, respiratory rate was 16, blood pressure was 125/109 and pulse ox was 98% on room air. CBC showed a white count of 22.5 with a hemoglobin of 11.1 and thrombocytosis with a platelet count of 526,000 CBC appears to be markedly hemoconcentrated compared to her baseline. A VBG was obtained and her pH was 7.26. Her chemistry showed marked hypokalemia with potassium of 2.3 she had significant VIJAY with serum creatinine of 2.19 and a BUN of 51. Anion gap was elevated at 21 however her bicarb was normal at 30.7 I suspect this is all contraction related and her anion gap is elevated related to her VIJAY. Serum creatininebaseline is between 0.8 and 1.0. Serum glucose on presentation was 1162. Serum osmolality was elevated at 356. Lactic acid was normal at 1. Magnesium was normal at 2.3 however phosphorus was found jayy 0.7. Liver functions were fairly unremarkable. Initial troponin was 47 with a delta of 40 and patient denying any chest pain I suspect this is elevated due to her VIJAY. Beta hydroxybutyrate was normal. Her UA is suggestive of infection. CT of brain was unremarkable for any acute findings. Chest x-ray is unremarkable. Patient was aggressively hydrated and treated for hypokalemia in the emergency department and givensubcu insulin. 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 Below knee amputation Dysphagia Acid reflux Diabetes Home Medications ?Medication ?Instructions ?Recorded ?Last Taken ?Type albuterol sulfate 90 mcg/actuation 2 puff inhalation Q 4H PRN Sob &/Or 10/01/18 Unknown History aerosol inhaler Wheezing dapagliflozin propanediol 10 mg 10 mg PO DAILY blood s ugars 09/20/22 02/25/23 History tablet (Farxiga) atorvastatin 40 mg tablet 40 mg PO QHS cholesterol 03/0902/25/23 History cholecalciferol (vitamin D3) 25 25 mcg PO DAILY supple ment 02/26/23 02/25/23 History mcg (1,000 unit) tablet ferrous sulfate 325 mg (65 mg 325 mg PO DAILY suppleme nt 02/26/23 02/25/23 History iron) tablet (FeroSul) lisinopril 5 mg tablet 5 mg PO DAILY blood pressure 02/26/23 02/25/23 History blood-glucose meter (True Metrix #1 ea 08/19/23 Unknow n Rx Glucose Meter) True Metrix Glucose Test Strip #50 ea 06/30/24 Unknown Rx (blood sugar diagnostic) glipizide 5 mg tablet 5 mg PO BID #60 tabs 5 Unknown Rx Allergy/AdvReac Type Severity Reaction Status Date / Time No Known Allergies Allergy Verified 05/27/24 10:09 Family History Grandmother Breast cancer Father Heart disease Hypertension Sister Thyroid disorder Aunt Thyroid disorder Other Arthritis CVA (cerebral vascular accident) Kidney disease Myocardial infarction Surgical History History of appendectomy Status post below knee amputation of right lower extremity history EGD with dilatation S/P appendectomy H/O thumb surgery Social History household members: family Smoking Status: Heavy Smoker (>10/day) alcohol intake: never substance use type: does not use what type of physical activity do you participate in: walking ROS Constitutional Constitutional: Reports change in weight and weakness; Denies anorexia, chills, fatigue, fever(s), malaise, night sweats or other Eyes Eyes: Denies blurry vision, change in eye color, change in vision, discharge from eye(s), double vision, erythema, eye pain, loss of vision or other ENT HEENT: Denies abnormal hearing, dysphagia, ear pain, epistaxis, headache(s), hearing loss, nasal congestion, nasal discharge, post nasal drip, sinus pressure, sore throat or other Cardiovascular Cardiovascular: Denies chest pain, claudication, dyspnea on exertion, edema, lightheadedness, orthopnea, palpitations, paroxysmal nocturnal dyspnea, rapid heart rate, syncope or other Respiratory/Chest Respiratory/Chest: Denies cough, dyspnea, excessive phlegm production, hemoptysis, productive cough, shortness of breath at rest, shortness of breath with exertion, wheezing or other Gastrointestinal Gastrointestinal: Reports diarrhea, nausea and vomiting; Denies abdominal pain, coffee ground emesis, constipation, dyspepsia, hematemesis, hematochezia, loose stools, melena or other Genitourinary Genitourinary: Reports urinary frequency; Denies burning urination, difficulty urinating, dysuria, hematuria, nocturia, urinary hesitancy, urinary incontinence, urinary urgency or other Musculoskeletal Musculoskeletal: Denies arthralgias, back pain, joint pain, joint stiffness, joint swelling, myalgias, neck pain or other Neurologic Neurologic: Denies abnormal gait, abnormal speech, confusion, disequilibrium, dizziness, focal weakness, headache(s), numbness, paresthesias, seizure-like activity, seizures, syncope, tingling, tremor(s) or other Psychiatric Psychiatric: Denies anxiety, depression, homicidal ideation, suicidal ideation or other Endocrine Endocrinology: Reports polydipsia and polyuria; Denies change in body appearance, cold intolerance,excessive sweating, heat intolerance or other Hematologic/Lymphatic Hematologic/Lymphatic: Denies anemia, easy bleeding, easy bruising, lymphadenopathy or other Allergic/Immunologic Allergic/Immunologic: Denies rhinitis, hives, eczemia, asthma or other Vital Signs Vital Signs Vital Signs: 07/22/24 07:14 07/22/24 07:21 07/22/24 08:13 Temperature 97.1 F L Temperature Source Oral Pulse Rate 93 76 Respiratory Rate 16 24 H Respiratory Effort Normal Respiratory Pattern Normal Blood Pressure 125/109 H Blood Pressure Mean 114 Pulse Ox 98 Oxygen Delivery Method Room Air Nasal Cannula Oxygen Flow Rate (L/min) 2 07/22/24 09:00 Temperature Temperature Source Pulse Rate 84 Respiratory Rate 19 H Respiratory Effort Respiratory Pattern Blood Pressure 178/106 H Blood Pressure Mean 130 Pulse Ox 100 Oxygen Delivery Method Nasal Cannula Oxygen Flow Rate (L/min) 2 Weight Weight: 43 kg Body Mass Index (BMI) 18.5 Physical Exam Const alert, oriented x3 and no apparent distress; Negative for average body habitus, healthy appearing or well nourished Constitutional Narrative: Cachectic appearing middle-aged, white female who appears much older than statedage, lying in bed, appears comfortable, does not appear toxic General Appearance: cooperative HEENT normocephalic, head/scalp atraumatic and moist oral mucous membranes HEENT Narrative: Edentulous, Mallampati is 1, no thrush Eyes EOMs intact bilaterally and conjunctivae normal Eyes Narrative: No scleral icterus Neck supple Neck Narrative: Trachea midline, mild thyroid enlargement without any nodularity identified Resp normal respiratory effort, no retractions, no use of accessory muscles and clearto auscultation bilaterally Resp Narrative: Diminished but clear Auscultation: Negative for rales, rhonchi or wheezes Cardio regular rate, regular rhythm, S1 normal heart sound, S2 normal heart sound, no murmurs, no rub, no gallops and no clicks GI normal to inspection, nondistended, normoactive bowel sounds, soft to palpation and non-tender GI Narrative: Scaphoid abdomen Extremity no clubbing, cyanosis or edema Extremity Narrative: Decreased lean muscle mass, right lower extremity has BKA Neuro CN's II-XII intact bilaterally, moves all extremities and no focal motor deficits Neuro Narrative: Decree sensation left distal lower extremity Speech: speech normal Psych Psych Narrative: Patient was somewhat of flight of ideas Mood & Affect: anxious Results Lab / Micro Data 07/22/24 07:16 07/22/24 13:55 Labs: Laboratory Results - last 24 hr 07/22/24 07:16: WBC 22.5 H, RBC 3.96 L, Hgb 11.1 L, Hct 35.3 L, MCV 89.1, MCH 28.0, MCHC 31.4 L, RDW Std Deviation 47.3 H, RDW Coeff of Emily 14.6, Plt Count 526 H, MPV 11.3, Immature Gran % (Auto) 0.600, Neut % (Auto) 85.9 H, Lymph % (Auto) 9.5 L, Andrew % (Auto) 3.8, Eos % (Auto) 0.0, Baso % (Auto) 0.2, Absolute Neuts (auto) 19.3 H, Absolute Lymphs (auto) 2.13, Nucleated RBC % 0, Sodium 133,Potassium 2.3 L*, Chloride 82 L, Carbon Dioxide 30.7, Anion Gap 21 H, BUN 51 H, Creatinine 2.19 H, Estim Creat Clear Calc 19.01 L, Est GFR (MDRD) Non-Af 25 L, BUN/Creatinine Ratio 23.4 H, Glucose 1162 H*, Calcium 9.6, Magnesium 2.3 H, TotalBilirubin 0.29, AST 77 H, ALT 12, Alkaline Phosphatase 129 H, Troponin T High Sens 47 H, Total Protein 8.2, Albumin 3.6, Globulin 4.6 H, Albumin/Globulin Ratio 0.8 L, b-Hydroxybutyric mmol/L 0.4 07/22/24 08:09: Lactic Acid 1.0 07/22/24 09:01: Urine Color Straw, Urine Clarity Sl. Cloudy, Urine pH 6.0, Ur Specific Monroe 1.005, Urine Protein 100 H, Urine Glucose (UA) 1000 H, Urine Ketones Negative, Urine Occult Blood 250 H,Urine Nitrite Negative, Urine Bilirubin Negative, Urine Urobilinogen Normal, Ur Leukocyte Esterase 500 H, Urine RBC 0-5 SEEN, Urine WBC 25-50 SEEN, Ur Squamous Epith Cells 0 SEEN, Urine Bacteria 2+, Urine Mucus 0 SEEN ABG Data ABG results: ABG 07/22/24 08:21 Specimen Type REYNA Sample Site Not entered VBG pH 7.26 L VBG pO2 176 H VBG HCO3 8 L VBG Total CO2 8 L VBG O2 Sat (Calc) 99 H VBG Base Excess -19 L POC Mix VBG pCO2 Pt Tmp 17.4 L* O2 Delivery Device Not entered Crit Call To/Read Back Yes Blood Gas Notified [facility] Blood Gas Notified Time 08:22:35 Rhythm Strip Rhythm Strip: Sinus Rhythm Rate: 85 Ectopy: None Imaging Radiology Impression Brain CT 07/22/24 07:20 IMPRESSION: No intracranial hemorrhage, mass effect or CT evidence of large vascular territory acute infarct. Reading Location: [facility] Chest X-Ray 07/22/24 07:40 IMPRESSION: No evidence of acute disease. Reading Location: [facility] Assessment & Plan Assessment/Plan (1) Hyperosmolar hyperglycemic state (HHS): (2) Dehydration: (3) VIJAY (acute kidney injury): (4) Abnormal urinalysis: (5) Vaginal yeast infection: (6) Leukocytosis: (7) Thrombocytosis: (8) High anion gap metabolic acidosis: (9) Uncontrolled hypertension: (10) Noncompliance: (11) Diarrhea: PLAN: Plan HHS with a history of DM-2 and noncompliance -Insulin drip at 0.05 -Aggressive IV fluids - Serial BMPs, magnesium, and phosphorus - Will transition off of drip once blood sugars stabilize and trend down below 250 - Will likely need subcu insulin - Will need discussed with endocrinology as she does follow with them at baseline - N.p.o. for now will likely start diet tomorrow VIJAY secondary to severe dehydration - Suspect renal function should improve with aggressive fluids - Serial lab as noted above - Avoid nephrotoxins - Hold home lisinopril Diarrhea - Check stool studies - May be osmotic diarrhea from hyperglycemia Thrombocytosis - Highly suspect related to volume contraction - Repeat lab in a.m. Chronic anemia - Hemoglobin higher than typical however patient hemoconcentrated - Suspect precipitous drop with hydration - Repeat lab in a.m. - no signs of bleeding Anion gap metabolic acidosis - pH is slightly low on VBG - Suspect related to VIJAY - No signs of DKA as beta hydroxybutyrate is normal - Trend with serial BMPs should clear quite quickly with improvement in renal function Vaginal yeast infection - Patient was given 150 mg of Diflucan in the emergency department - this should complete treatment next-monitor clinically Leukocytosis - Cultures obtained - Abnormal UA so we will start ceftriaxone for suspected UTI and await cultures - Will trend - Suspect marked elevation related to hemoconcentration Abnormal UA - Ceftriaxone for now - Culture pending DM-2 uncontrolled - Hemoglobin A1c is greater than 13 - Documented noncompliance from endocrinology notes - Will likely need insulin at discharge but will talk to endocrinology tomorrow for advice Uncontrolled hypertension/hyperlipidemia - Hold lisinopril - As needed hydralazine for now and will trend - Reevaluate needs for scheduled antihypertensives over the next 24 hours - Continue home atorvastatin History of right lower extremity BKA - Complication related to her diabetes - Stable Severe malnutrition - Dietitian consultation - Will need supplements once p.o. intake can be initiated Tobacco abuse - Recommend cessation - Patient denies need for nicotine replacement therapy DVT prophylaxis - Subcu heparin twice daily CODE STATUS - Full code as verified at the time of admission Charges/Coding Visit Charges Inpatient E&M: 13598 Init Hosp L3 07/22/24 1732 Cosigner Signature (if applicable): CC: Dr. Art Herman MD; Dr. Floresita Capellan, DO~ Signed [facility]05-07-2025 Discharge summary Author Nani Coleman [facility] Note Date/Time July 22, 2024 10:45a m [facility] Medical Records Department [address] [place] [address] Emergency Department Summary 07/22/24 MR#: [id number] Acct: [id number] Name: SANJUANITA JERRY Rep #:[id number] : 1965 59 From: Nani Weeks PCP: Dr. Art Herman MD Status :ADM IN Location: ICU CVICU20 1-1 HPI History of Present Illness Chief Complaint: Neuro S/Sx Informant: patient and EMS Narrative Narrative: Patient is a 59-year-old female with history of diabetes mellitus, hypertension,osteoporosis and history of necrotizing fasciitis status post right BKA presenting for generalized weakness and concern for stroke. Patient was concern for stroke because last night around 1:30 PM she had some intermittent paresthesias of her right fingers/hand. That is currently resolved. Her daughter notes that her voice/speech was different. At that time her daughter was at work and patient states that she would call her back in the morning and check on her. This morning was still noted to have change in her speech and EMSwas called. Patient notes that she has been having intermittent diarrhea and nausea for the past 3 weeks. Denies any associated pain with this. Has been feeling generallyweak. Notes over the past 5 days or so she stopped taking her insulin because of the diarrhea and illness. Denies any fever or chills. Denies any urinary symptoms. States she feels very thirsty. No falls reported. Is not on any blood thinners. Is from home. [facility] Medical History (Updated 07/22/24 @ 10:[address] Nani Coleman, ) Anemia Smoker Cellulitis and abscess of right lower extremity Type 2 diabetes mellitus with hyperglycemia, without long-term current use of insulin Sinus tachycardia seen on traffic monitor specialist Below knee amputation Dysphagia Acid reflux Diabetes Home Medications ?Medication ?Instructions ?Recorded ?Last Taken ?Type albuterol sulfate 90 mcg/actuation 2 puff inhalation Q 4H PRN Sob &/Or 10/01/18 Unknown History aerosol inhaler Wheezing dapagliflozin propanediol 10 mg 10 mg PO DAILY blood s ugars 09/20/22 02/25/23 History tablet (Farxiga) atorvastatin 40 mg tablet 40 mg PO QHS cholesterol 03/0902/25/23 History cholecalciferol (vitamin D3) 25 25 mcg PO DAILY supple ment 02/26/23 02/25/23 History mcg (1,000 unit) tablet ferrous sulfate 325 mg (65 mg 325 mg PO DAILY suppleme nt 02/26/23 02/25/23 History iron) tablet (FeroSul) lisinopril 5 mg tablet 5 mg PO DAILY blood pressure 02/26/23 02/25/23 History blood-glucose meter (True Metrix #1 ea 08/19/23 Unknow n Rx Glucose Meter) True Metrix Glucose Test Strip #50 ea 06/30/24 Unknown Rx (blood sugar diagnostic) glipizide 5 mg tablet 5 mg PO BID #60 tabs 5 Unknown Rx Allergy/AdvReac Type Severity Reaction Status Date / Time No Known Allergies Allergy Verified 05/27/24 10:09 Family History Grandmother Breast cancer Father Heart disease Hypertension Sister Thyroid disorder Aunt Thyroid disorder Other Arthritis CVA (cerebral vascular accident) Kidney disease Myocardial infarction Surgical History History of appendectomy Status post below knee amputation of right lower extremity history EGD with dilatation S/P appendectomy H/O thumb surgery Social History household members: family Smoking Status: Heavy Smoker (>10/day) alcohol intake: never substance use type: does not use what type of physical activity do you participate in: walking ROS ROS ED Constitutional Constitutional ED: Reports other Details: Generalized weakness ; Denies chills or fever(s) Eyes Eyes: Denies change in vision ENT ENT ED: Denies rhinorrhea or sore throat Cardiovascular Cardiovascular: Denies chest pain Respiratory/Chest Respiratory/Chest: Denies cough or dyspnea Gastrointestinal Gastrointestinal: Reports diarrhea and nausea; Denies abdominal pain or vomiting Genitourinary Genitourinary ED: Denies dysuria or urinary frequency Musculoskeletal Musculoskeletal: Denies arthralgias or myalgias Integumentary Denies rash Neurologic Neurologic: Reports paresthesias RUE (Right hand-affecting different fingers at different times per patient) and weakness Psychiatric Psychiatric: Denies anxiety or depression Hematologic/Lymphatic Hematologic/Lymphatic: Denies easy bleeding or easy bruising EXAM Physical Exam Const Vital Signs: 07/22/24 07:14 07/22/24 07:21 07/22/24 08:13 Temperature 97.1 F L Temperature Source Oral Pulse Rate 93 76 Respiratory Rate 16 24 H Respiratory Effort Normal Respiratory Pattern Normal Blood Pressure 125/109 H Blood Pressure Mean 114 Pulse Ox 98 Oxygen Delivery Method Room Air Nasal Cannula Oxygen Flow Rate (L/min) 2 07/22/24 09:00 Temperature Temperature Source Pulse Rate 84 Respiratory Rate 19 H Respiratory Effort Respiratory Pattern Blood Pressure 178/106 H Blood Pressure Mean 130 Pulse Ox 100 Oxygen Delivery Method Nasal Cannula Oxygen Flow Rate (L/min) 2 Positive cachectic and unkempt General Appearance ED: unkempt, cachectic and NAD Nutritional Appearance: cachectic HEENT Reports dry mucous membranes HEENT Narrative: Exceedingly dry mouth presents. Negative for trauma Mouth ED: Yes dry mucous membranes Mouth: dry mucous membranes Eyes PERRL and EOMs intact bilaterally Neck no JVD Neck Narrative: No nuchal rigidity Chest Wall inspection of chest normal Resp normal respiratory effort and clear to auscultation bilaterally Cardio regular rate and regular rhythm GI normal to inspection, nondistended, normoactive bowel sounds and non-tender Auscultation: normoactive bowel sounds Palpation: soft; Negative for tender or guarding Extremity Extremity Narrative: Right BKA present General Extremety ED: Negative for edema General Extremity: Negative for edema Neuro oriented x3 and CN's II-XII intact bilaterally Neuro Narrative: No focal neurologic deficits present. Alert and oriented. Suspect reported change in speech because of how dry her mouth is but no true dysarthria present. Normal strength and sensation in all extremities. NIH equals 0. Sensorium / Orientation: alert Psych mental status grossly normal Appearance: unkempt Skin no rashes or lesions noted Skin Narrative: Approximately 5 cm x 2 cm skin tear to the left hip area. There is a central 3 cm eschar. No associated warmth. Minimal surrounding erythema but no induration. MDM MDM MDM Narrative Medical decision making narrative: Patient is evaluated for generalized weakness and initially given because she thought her speech was slurred. I suspect it is secondary to dehydration based on her physical exam and do not think this is an actual stroke. She has been hyperglycemic and I am much more concerned for infection, HH NK, DKA, electrolyte abnormality or more metabolic process. She is alert and oriented however but generally weak. Workup does show leukocytosis of 22.5 and patient does appear to be significantly hemoconcentrated with platelet count of 526 and hemoglobin 11.1 which are both above her baseline. VBG obtained which does show metabolic acidosis with a pH of 7.26, bicarb of 8 and pCO2 of 8. Her chemistry shows significant hypokalemia with potassium of 2.7, hypochloremia with a chloride of 82, severe hyperglycemia with a glucose [id number], elevated anion gap of 21, VIJAY with a creatinine of 2.19 (baseline closer to 0.8), bicarb of 30 and actually high magnesium 2.3. Her calculated serum osmolality is 349. Her corrected sodium for hyperglycemia is hyponatremic with a sodium of 150. Patient is given oral and IV potassium as well as a liter of IV fluids and started on maintenance fluid at 125 an hour. She will need potassium replacement prior to starting insulin. When nurses were placed on Peguero they noted that she had a pretty severe yeast infection and patient started on Diflucan. Urinalysis is concerning for UTI andculture sent. Lactate is normal. I do not think patient has sepsis or severe sepsis as her primary cause of her presentation. Case is discussed with hospitalist, Dr. Capellan and will be admitted for further treatment. Patient and daughter are in agreement with this plan of care. Lab Data Attestation: I reviewed the patient's lab results. Labs: Laboratory Results - last 24 hr 07/22/24 07/22/24 07/22/24 07:16 08:09 09:01 WBC 22.5 H RBC 3.96 L Hgb 11.1 L Hct 35.3 L MCV 89.1 MCH 28.0 MCHC 31.4 L RDW Std Deviation 47.3 H RDW Coeff of Emily 14.6 Plt Count 526 H MPV 11.3 Immature Gran % (Auto) 0.600 Neut % (Auto) 85.9 H Lymph % (Auto) 9.5 L Andrew % (Auto) 3.8 Eos % (Auto) 0.0 Baso % (Auto) 0.2 Absolute Neuts (auto) 19.3 H Absolute Lymphs (auto) 2.13 Nucleated RBC % 0 Sodium 133 Potassium 2.3 L* Chloride 82 L Carbon Dioxide 30.7 Anion Gap 21 H BUN 51 H Creatinine 2.19 H Estim Creat Clear Calc 19.01 L Est GFR (MDRD) Non-Af 25 L BUN/Creatinine Ratio 23.4 H Glucose 1162 H* Lactic Acid 1.0 Calcium 9.6 Magnesium 2.3 H Total Bilirubin 0.29 AST 77 H ALT 12 Alkaline Phosphatase 129 H Troponin T High Sens 47 H Total Protein 8.2 Albumin 3.6 Globulin 4.6 H Albumin/Globulin Ratio 0.8 L b-Hydroxybutyric mmol/L 0.4 Urine Color Straw Urine Clarity Sl. Cloudy Urine pH 6.0 Ur Specific Monroe 1.005 Urine Protein 100 H Urine Glucose (UA) 1000 H Urine Ketones Negative Urine Occult Blood 250 H Urine Nitrite Negative Urine Bilirubin Negative Urine Urobilinogen Normal Ur Leukocyte Esterase 500 H Urine RBC 0-5 SEEN Urine WBC 25-50 SEEN Ur Squamous Epith Cells 0 SEEN Urine Bacteria 2+ Urine Mucus 0 SEEN ABG Data ABG results: ABG 07/22/24 08:21 Specimen Type REYNA Sample Site Not entered VBG pH 7.26 L VBG pO2 176 H VBG HCO3 8 L VBG Total CO2 8 L VBG O2 Sat (Calc) 99 H VBG Base Excess -19 L POC Mix VBG pCO2 Pt Tmp 17.4 L* O2 Delivery Device Not entered Crit Call To/Read Back Yes Blood Gas Notified [facility] Blood Gas Notified Time 08:22:35 Radiography Chest X-Ray - ED: 1 View, Read by ED Physician, Read by Radiologist and No AcuteDisease Diagnostic Testing: Clinical Impression(s) from Imaging Studies Brain CT 07/22/24 07:20 IMPRESSION: No intracranial hemorrhage, mass effect or CT evidence of large vascular territory acute infarct. Reading Location: [facility] Chest X-Ray 07/22/24 07:40 IMPRESSION: No evidence of acute disease. Reading Location: [facility] Rhythm Strip Rhythm Strip: Sinus Rhythm Rate: 85 Ectopy: None EKG Initial EKG: Attestation: I personally reviewed and interpreted this EKG as follows: Interpretation: Sinus Rhythm Comments: Normal sinus rhythm at a rate of 85 bpm Normal axis Normal intervals Diffuse T wave inversions presents which are new compared to prior EKG on 05/31/2022 Management Discussion w/another healthcare provider: Hospitalist Critical Care Time Critical Care Time: Yes Critical care time (excluding procedures): 30-74 minutes (38), Discussing w/Patient &/or Family/Asset Availability Leader, Arranging Admission or Transfer and - (Severe electrolyte derangement requiring frequent monitoring, electrolyte and fluid replacement and ICU admission) Discharge Plan Triage Chief Complaint: Neuro S/Sx Other Complaint: Hyperglycemia ED Provider: Nani Coleman Dx/Rx/DC Orders Clinical Impression: Hypokalemia, Noncompliance, High anion gap metabolic acidosis, Hyperosmolar hyperglycemic state (HHS), Leukocytosis, Vaginal yeast infection, Abnormal urinalysis, VIJAY (acute kidney injury), Dehydration Primary Care Provider: Art Herman Disposition Disposition: [facility] What to do if you have Problems For any increased pain, shortness of breath, bleeding, nausea or vomiting, chestpain, or any unexpected problems, contact your Primary Care Provider. Call [facility] ([phone]) or report to the closest Emergency Room. Call 911 if necessary. 07/22/24 1045 <Electronically signed by Nani Coleman DO> Cosigner Signature (if applicable): CC: Dr. Art Herman MD ~ Signed [facility] Work Phone: 1(315) 246-694605-07-2025 Evaluation note* Diagnosis Onset Date Resolution Status Admit Date Diarrhea acute July 22, 2024 9:41am Noncompliance chronic July 22 9:41am Abnormal urinalysis resolved July 222024 9:41am VIJAY (acute kidney injury) resolved July 22, 2024 9:41am Dehydration resolved July 22, 2024 9:41am High anion gap metabolic acidosis re solved July 22, 2024 9:41am Hyperosmolar hyperglycemic s taylor (HHS) resolved July 22, 2024 9: 41am Leukocytosis resolved July 22 9:41am Thrombocytosis resolved July 22 9:41am Uncontrolled hypertension resolved July 22, 2024 9:41am Vaginal yeast infection resolved 2024 9:41am Diabetes chronic August 26 10:44am Hypertension chronic August 26 025 10:44am Microalbuminuria due to type 2 diabetes mellitus chronic August 26 10:44am Noncompliance chronic August 26, 2024 10:44am Osteoporosis chronic August 26 025 10:44am Vitamin D deficiency chronic August 26, 2024 10:44am Chronic painful diabetic polyneuropathy acute October 14, 2024 2:15pm Non-pressure chronic ulcer o f other part of left foot with fat layer exposed chronic October 14, 2024 2:15pm 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 October 14 2:15pm [facility] Work Phone: 1(979) 311-943505-07-2025 Evaluation note* Diagnosis Onset Date Resolution Status Admit Date Diarrhea acute July 22, 2024 9:41am Noncompliance chronic July 22 9:41am Abnormal urinalysis resolved July 222024 9:41am VIJAY (acute kidney injury) resolved July 22, 2024 9:41am Dehydration resolved July 22, 2024 9:41am High anion gap metabolic acidosis resolved July 22, 2024 9: 41am Hyperosmolar hyperglycemic s taylor (HHS) resolved July 22, 2024 9: 41am Leukocytosis resolved July 22 9:41am Thrombocytosis resolved July 22 9:41am Uncontrolled hypertension resolved July 22, 2024 9:41am Vaginal yeast infection resolved 2024 9:41am Diabetes chronic August 26 10:44am Hypertension chronic August 26 10:44am Microalbuminuria due to type 2 diabetes mellitus chronic August 26 10:44am Noncompliance chronic August 26, 2024 10:44am Osteoporosis chronic August 26 10:44am Vitamin D deficiency chronic August 26, 2024 10:44am Chronic painful diabetic polyneuropathy acute October 14, 2024 2:15pm Non-pressure chronic ulcer o f other part of left foot with fat layer exposed chronic October 14, 2024 2:15pm 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 October 14 2:15pm Diabetes chronic November 04 11:43am Hypertension chronic November 04, 2024 11:43am Osteoporosis chronic November 04, 2024 11:43am Vitamin D deficiency chronic 2024 11:43am [facility] Work Phone: 1(141) 488-163305-07-2025 Evaluation note* Diagnosis Onset Date Resolution Status Admit Date Diarrhea acute July 22, 2024 9:41am Noncompliance chronic July 22 9:41am Abnormal urinalysis resolved July 222024 9:41am VIJAY (acute kidney injury) resolved July 22, 2024 9:41am Dehydration resolved July 22, 2024 9:41am High anion gap metabolic acidosis resolved July 22, 2024 9: 41am Hyperosmolar hyperglycemic s taylor (HHS) resolved July 22, 2024 9: 41am Leukocytosis resolved July 22 9:41am Thrombocytosis resolved July 22 9:41am Uncontrolled hypertension resolved July 22, 2024 9:41am Vaginal yeast infection resolved 2024 9:41am Diabetes chronic August 26 10:44am Hypertension chronic August 26 10:44am Microalbuminuria due to type 2 diabetes mellitus chronic August 26 10:44am Noncompliance chronic August 26, 2024 10:44am Osteoporosis chronic August 26 10:44am Vitamin D deficiency chronic August 26, 2024 10:44am Chronic painful diabetic polyneuropathy acute October 14, 2024 2:15pm Non-pressure chronic ulcer o f other part of left foot with fat layer exposed chronic October 14, 2024 2:15pm 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 October 14 2:15pm Diabetes chronic November 04 11:43am Hypertension chronic November 04, 2024 11:43am Osteoporosis chronic November 04, 2024 11:43am Vitamin D deficiency chronic 2024 11:43am Chronic painful diabetic polyneuropathy acute November 11 1:45pm 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 Art Herman MD Status :ADM IN Location: ICU CVICU20 1-1 HPI History of Present Illness Chief Complaint: Neuro S/Sx Informant: patient and EMS Narrative Narrative: Patient is a 59-year-old female with history of diabetes mellitus, hypertension,osteoporosis and history of necrotizing fasciitis status post right BKA presenting for generalized weakness and concernfor stroke. Patient was concern for stroke because last night around 1:30 PM she had some intermittent paresthesias of her right fingers/hand. That is currently resolved. Her daughter notes that her voice/speech was different. At that time her daughter was at work and patient states that she would call her back in the morning and check on her. This morning was still noted to have change in her speech and EMSwas called. Patient notes that she has been having intermittent diarrhea and nausea for the past 3 weeks. Denies any associated pain with this. Has been feeling generallyweak. Notes over the past 5 days or so she stopped taking her insulin because of the diarrhea and illness. Denies any fever or chills. Deniesany urinary symptoms. States she feels very thirsty. No falls reported. Is not on any blood thinners. Is from home. [facility] Medical History (Updated 07/22/24 @ 10:[address] Nani Coleman, DO) Anemia Smoker Cellulitis and abscess of right lower extremity Type 2 diabetes mellitus with hyperglycemia, without long-term current use of insulin Sinus tachycardia seen on traffic monitor specialist Below knee amputation Dysphagia Acid reflux Diabetes Home Medications ?Medication ?Instructions ?Recorded ?Last Taken ?Type albuterol sulfate 90 mcg/actuation 2 puff inhalation Q 4H PRN Sob &/Or 10/01/18 Unknown History aerosol inhaler Wheezing dapagliflozin propanediol 10 mg 10 mg PO DAILY blood s ugars 09/20/22 02/25/23 History tablet (Farxiga) atorvastatin 40 mg tablet 40 mg PO QHS cholesterol 03/0902/25/23 History cholecalciferol (vitamin D3) 25 25 mcg PO DAILY supple ment 02/26/23 02/25/23 History mcg (1,000 unit) tablet ferrous sulfate 325 mg (65 mg 325 mg PO DAILY suppleme nt 02/26/23 02/25/23 History iron) tablet (FeroSul) lisinopril 5 mg tablet 5 mg PO DAILY blood pressure 12/12/23 12/11/23 History blood-glucose meter (True Metrix #1 ea 08/19/23 Unknow n Rx Glucose Meter) True Metrix Glucose Test Strip #50 ea 06/30/24 Unknown Rx (blood sugar diagnostic) glipizide 5 mg tablet 5 mg PO BID #60 tabs 5 Unknown Rx Allergy/AdvReac Type Severity Reaction Status Date / Time No Known Allergies Allergy Verified 05/27/24 10:09 Family History Grandmother Breast cancer Father Heart disease Hypertension Sister Thyroid disorder Aunt Thyroid disorder Other Arthritis CVA (cerebral vascular accident) Kidney disease Myocardial infarction Surgical History History of appendectomy Status post below knee amputation of right lower extremity history EGD with dilatation S/P appendectomy H/O thumb surgery Social History household members: family Smoking Status: Heavy Smoker (>10/day) alcohol intake: never substance use type: does not use what type of physical activity do you participate in: walking ROS ROS ED Constitutional Constitutional ED: Reports other Details: Generalized weakness ; Denies chills or fever(s) Eyes Eyes: Denies change in vision ENT ENT ED: Denies rhinorrhea or sore throat Cardiovascular Cardiovascular: Denies chest pain Respiratory/Chest Respiratory/Chest: Denies cough or dyspnea Gastrointestinal Gastrointestinal: Reports diarrhea and nausea; Denies abdominal pain or vomiting Genitourinary Genitourinary ED: Denies dysuria or urinary frequency Musculoskeletal Musculoskeletal: Denies arthralgias or myalgias Integumentary Denies rash Neurologic Neurologic: Reports paresthesias RUE (Right hand-affecting different fingers at different times perpatient) and weakness Psychiatric Psychiatric: Denies anxiety or depression Hematologic/Lymphatic Hematologic/Lymphatic: Denies easy bleeding or easy bruising EXAM Physical Exam Const Vital Signs: 07/22/24 07:14 07/22/24 07:21 07/22/24 08:13 Temperature 97.1 F L Temperature Source Oral Pulse Rate 93 76 Respiratory Rate 16 24 H Respiratory Effort Normal Respiratory Pattern Normal Blood Pressure 125/109 H Blood Pressure Mean 114 Pulse Ox 98 Oxygen Delivery Method Room Air Nasal Cannula Oxygen Flow Rate (L/min) 2 07/22/24 09:00 Temperature Temperature Source Pulse Rate 84 Respiratory Rate 19 H Respiratory Effort Respiratory Pattern Blood Pressure 178/106 H Blood Pressure Mean 130 Pulse Ox 100 Oxygen Delivery Method Nasal Cannula Oxygen Flow Rate (L/min) 2 Positive cachectic and unkempt General Appearance ED: unkempt, cachectic and NAD Nutritional Appearance: cachectic HEENT Reports dry mucous membranes HEENT Narrative: Exceedingly dry mouth presents. Negative for trauma Mouth ED: Yes dry mucous membranes Mouth: dry mucous membranes Eyes PERRL and EOMs intact bilaterally Neck no JVD Neck Narrative: No nuchal rigidity Chest Wall inspection of chest normal Resp normal respiratory effort and clear to auscultation bilaterally Cardio regular rate and regular rhythm GI normal to inspection, nondistended, normoactive bowel sounds and non-tender Auscultation: normoactive bowel sounds Palpation: soft; Negative for tender or guarding Extremity Extremity Narrative: Right BKA present General Extremety ED: Negative for edema General Extremity: Negative for edema Neuro oriented x3 and CN's II-XII intact bilaterally Neuro Narrative: No focal neurologic deficits present. Alert and oriented. Suspect reported change in speech becauseof how dry her mouth is but no true dysarthria present. Normal strength and sensation in all extremities. NIH equals 0. Sensorium / Orientation: alert Psych mental status grossly normal Appearance: unkempt Skin no rashes or lesions noted Skin Narrative: Approximately 5 cm x 2 cm skin tear to the left hip area. There is a central 3 cm eschar. No associated warmth. Minimal surrounding erythema but no induration. MDM MDM MDM Narrative Medical decision making narrative: Patient is evaluated for generalized weakness and initially given because she thought her speech was slurred. I suspect it is secondary to dehydration based on her physical exam and do not think thisis an actual stroke. She has been hyperglycemic and I am much more concerned for infection, HH NK, DKA, electrolyte abnormality or more metabolic process. She is alert and oriented however but generally weak. Workup does show leukocytosis of 22.5 and patient does appear to be significantly hemoconcentrated with platelet count of 526 and hemoglobin 11.1 which are both above her baseline. VBG obtained which does show metabolic acidosis with a pH of 7.26, bicarb of 8 and pCO2 of 8. Her chemistry shows significant hypokalemia with potassium of 2.7, hypochloremia with a chloride of 82, severe hyperglycemia with a glucose [id number], elevated anion gap of 21, VIJAY with a creatinine of 2.19 (baseline closer to 0.8), bicarb of 30 and actually high magnesium 2.3. Her calculated serum osmolality is 349. Her corrected sodium for hyperglycemia is hyponatremic with a sodium of 150. Patient is given oral and IV potassium as well as a liter of IV fluids and started on maintenance fluid at 125 an hour. She will need potassium replacement prior to starting insulin. When nurses were placed on Peguero they noted that she had a pretty severe yeast infection and patient started on Diflucan. Urinalysis is concerning for UTI andculture sent. Lactate is normal. I do not think patient has sepsis or severe sepsis as her primary cause of her presentation. Case is discussed with hospitalist, Dr. Capellan and will be admitted for further treatment. Patient anddaughter are in agreement with this plan of care. Lab Data Attestation: I reviewed the patient's lab results. Labs: Laboratory Results - last 24 hr 07/22/24 07/22/24 07/22/24 07:16 08:09 09:01 WBC 22.5 H RBC 3.96 L Hgb 11.1 L Hct 35.3 L MCV 89.1 MCH 28.0 MCHC 31.4 L RDW Std Deviation 47.3 H RDW Coeff of Emily 14.6 Plt Count 526 H MPV 11.3 Immature Gran % (Auto) 0.600 Neut % (Auto) 85.9 H Lymph % (Auto) 9.5 L Andrew % (Auto) 3.8 Eos % (Auto) 0.0 Baso % (Auto) 0.2 Absolute Neuts (auto) 19.3 H Absolute Lymphs (auto) 2.13 Nucleated RBC % 0 Sodium 133 Potassium 2.3 L* Chloride 82 L Carbon Dioxide 30.7 Anion Gap 21 H BUN 51 H Creatinine 2.19 H Estim Creat Clear Calc 19.01 L Est GFR (MDRD) Non-Af 25 L BUN/Creatinine Ratio 23.4 H Glucose 1162 H* Lactic Acid 1.0 Calcium 9.6 Magnesium 2.3 H Total Bilirubin 0.29 AST 77 H ALT 12 Alkaline Phosphatase 129 H Troponin T High Sens 47 H Total Protein 8.2 Albumin 3.6 Globulin 4.6 H Albumin/Globulin Ratio 0.8 L b-Hydroxybutyric mmol/L 0.4 Urine Color Straw Urine Clarity Sl. Cloudy Urine pH 6.0 Ur Specific Monroe 1.005 Urine Protein 100 H Urine Glucose (UA) 1000 H Urine Ketones Negative Urine Occult Blood 250 H Urine Nitrite Negative Urine Bilirubin Negative Urine Urobilinogen Normal Ur Leukocyte Esterase 500 H Urine RBC 0-5 SEEN Urine WBC 25-50 SEEN Ur Squamous Epith Cells 0 SEEN Urine Bacteria 2+ Urine Mucus 0 SEEN ABG Data ABG results: ABG 07/22/24 08:21 Specimen Type RYENA Sample Site Not entered VBG pH 7.26 L VBG pO2 176 H VBG HCO3 8 L VBG Total CO2 8 L VBG O2 Sat (Calc) 99 H VBG Base Excess -19 L POC Mix VBG pCO2 Pt Tmp 17.4 L* O2 Delivery Device Not entered Crit Call To/Read Back Yes Blood Gas Notified [facility] Blood Gas Notified Time 08:22:35 Radiography Chest X-Ray - ED: 1 View, Read by ED Physician, Read by Radiologist and No AcuteDisease Diagnostic Testing: Clinical Impression(s) from Imaging Studies Brain CT 07/22/24 07:20 IMPRESSION: No intracranial hemorrhage, mass effect or CT evidence of large vascular territory acute infarct. Reading Location: [facility] Chest X-Ray 07/22/24 07:40 IMPRESSION: No evidence of acute disease. Reading Location: [facility] Rhythm Strip Rhythm Strip: Sinus Rhythm Rate: 85 Ectopy: None EKG Initial EKG: Attestation: I personally reviewed and interpreted this EKG as follows: Interpretation: Sinus Rhythm Comments: Normal sinus rhythm at a rate of 85 bpm Normal axis Normal intervals Diffuse T wave inversions presents which are new compared to prior EKG on 05/31/2022 Management Discussion w/another healthcare provider: Hospitalist Critical Care Time Critical Care Time: Yes Critical care time (excluding procedures): 30-74 minutes (38), Discussing w/Patient &/or Family/Asset Availability Leader, Arranging Admission or Transfer and - (Severe electrolyte derangement requiring frequent monitoring, electrolyte and fluid replacement and ICU admission) Discharge Plan Triage Chief Complaint: Neuro S/Sx Other Complaint: Hyperglycemia ED Provider: Nani Coleman Dx/Rx/DC Orders Clinical Impression: Hypokalemia, Noncompliance, High anion gap metabolic acidosis, Hyperosmolar hyperglycemic state (HHS), Leukocytosis, Vaginal yeast infection, Abnormal urinalysis, VIJAY (acute kidney injury), Dehydration Primary Care Provider: Art Herman Disposition Disposition: Acute Care Hospital [facility] What to do if you have Problems For any increased pain, shortness of breath, bleeding, nausea or vomiting, chestpain, or any unexpected problems, contact your Primary Care Provider. Call [facility] ([phone]) or report tothe closest Emergency Room. Call 911 if necessary. 07/22/24 1045 Cosigner Signature (if applicable): CC: Dr. Art Herman MD ~ Signed [facility]05-07-2025 Radiology Diagnostic study note [facility] Imaging Services [address] [place], [place] [address] Brain/Head without Contrast MR#: [id number] Acct: [id number] Name: SANJUANITA JERRY Rep #: [id number] : 1965 F 59 From: Darren Velez MD PCP: Dr. Art Herman MD Status: REG ER Study:Brain/Head without Contrast Date of Exa m: 07/22/24 Exam# [id number] Ordering Dr: Sole Coleman DO PROCEDURE: BRAIN/HEAD WITHOUT CONTRAST 07/22/2024 REASON FOR EXAM: TIA SYMPTOMS, RIGHT HAND PARESTHESIAS (TRANSIENT) TECHNIQUE: Head CT without intravenous contrast. Coronal and Sagittal reconstruction serieswere provided. One or more dose reduction techniques were used (e.g., Automated exposure control, adjustment of the mA and/or kV according to patient size, use of iterative reconstruction technique. RADIATION DOSE SUMMARY: CTDlvol: 44.99 mGy DLP: 745.49 mGycm COMPARISON: None available FINDINGS: No intracranial hemorrhage, mass effect or CT evidence of large vascular territory acute infarct. The ventricles are within limits and midline. Mild volume loss, atrophy. The visualized paranasal sinuses, mastoids and orbits appear within limits. CT/Brain/Head without Contrast IMPRESSION: No intracranial hemorrhage, mass effect or CT evidence of large vascular territory acute infarct. Reading Location: [facility] CC: Dr. Art Herman MD; Dr. Nani Coleman DO ~ Health Care Social Worker: Signed [facility]05-07-2025 Radiology Diagnostic study note [facility] Imaging Services [address] [place], [place] [address] Chest 1 View (Portable) MR#: [id number] Acct: [id number] Name: SANJUANITA JERRY Rep #: [id number] : 1965 F 59 From: Darren Velez MD PCP: Dr. Art Herman MD Status: REG ER Study:Chest 1 View (Portable) Date of Exam: 07/22/24 Exam# [id number] Ordering Dr: Sole Coleman DO PROCEDURE: CHEST 1 VIEW (PORTABLE) 07/22/2024 REASON FOR EXAM: WEAKNESS TECHNIQUE: Frontal view of the chest. COMPARISON: None available FINDINGS: The lungs appear clear. The cardiac and mediastinal contours appear within limits. Pulmonary vascularity appears within limits. No pleural effusion seen. Visualized osseous structures appear within limits. RAD/Chest 1 View (Portable) IMPRESSION: No evidence of acute disease. Reading Location: [facility] CC: Dr. Art Herman MD; Dr. Nani Coleman DO ~ Health Care Social Worker: Signed [facility]04-28-2025 NoteHNO ID: [id number] Author: NAOMY BERGMAN APRN.[employer] WASH BUFFER Service: ? Author Type: Nurse Practitioner Type: Progress Notes Filed: 07/13/2024 12:11 Note Text: Chief Complaint: Follow-up from Initial CT Lung Screening scan completed 12/06/2022 History of Present Illness: Sanjuanita Jerry is a 59 year old female who is presenting today for CT lung screening imaging review. She was scheduled as a new patient, but has been seen previously. She did not get a 12 month follow up done from the 12/06/2022 LDCT. Patient is a current smoker with a 22 pack year history. Currently still smoking 1/2 pack daily. Since the patient's last visit the patient has had new medical issues or hospitalizations. Right BKA revision done 07/2023. No recent respiratory infections/pneumonia. Accompanied by her daughter. Modified Medical [employer] [place] Dyspnea Scale (MMRC) I only get breathless with strenous exercise 0 Patient denies SOB with their daily activity. No wheezing or dyspnea. Patient denies feeling of chest tightness/congestion in the chest. Patient does not have a new or concerning cough, and denies hemoptysis. Patient does not have a chronic daily cough. Denies regular or recent fevers/chills. Patient does not have any significant unintentional weight loss. Patient denies having any respiratory infections or COVID-19 in the past few months. Last 12 Encounter Wt Readings: Date: Wt: 06/29/2024 44.7 kg (98 lb 8 oz) 06/08/2024 43.1 kg (95 lb) 05/13/2024 43.5 kg (95 lb 12.8 oz) 12/12/2023 44.9 kg (99 lb) 11/05/2023 44.8 kg (98 lb 12.3 oz) 08/06/2023 40.8 kg (90 lb) 08/05/2023 41.2 kg (90 lb 12.8 oz) 07/16/2023 44.5 kg (98 lb) 06/25/2023 44.5 kg (98 lb) 06/17/2023 44.5 kg (98 lb) 05/21/2023 44.9 kg (99 lb) 03/06/2023 45 kg (99 lb 4.8 oz) Past Medical History: PAST MEDICAL HISTORY Diagnosis Date Cataracts, bilateral s/p surgery in 2021 at [facility] Coronary artery calcification 11/[address] chest Diabetic neuropathy (HCC) Folic acid deficiency Gas gangrene of lower extremity (HCC) Goiter, unspecified 09/29/2007 Hypokalemia Hypomagnesemia Known medical problems rt BKA PAD (peripheral artery disease) S/P BKA (below knee amputation) ([facility]) 05/31/2022 right Tobacco use disorder Type II or unspecified type diabetes mellitus without mention of complication, uncontrolled Endo: Dr. Madrigal Surgical Hx: PAST SURGICAL HISTORY Procedure Laterality Date APPENDECTOMY HX 80s CATARACT EXTRACTION HX Bilateral 04/2022 EGD W/O BRSH SPEC VARICIES INJ 2019 with esophageal dilation LEG AMPUTATION HX Right 06/03/2022 BKA PAST SURGICAL HISTORY OF Lt thumb straightened Family Hx: FAMILY HISTORY Problem Relation Age of Onset Stroke Mother Ischemic Heart Disease Mother Diabetes Mother Hypertension Mother Stroke Father Ischemic Heart Disease Father Hypertension Father Diabetes Father Kidney failure Sister Ischemic Heart Disease Brother Massive [place] at age 38 Breast Cancer Paternal Grandmother Allergies: ALLERGIES No Known Allergies Social History Tobacco Use: Types: Cigarettes Review Of Systems: See HPI for ROS All of the remainder systems were reviewed and negative. PHYSICAL EXAMINATION: BP 108/62 Pulse 78 Resp 17 SpO2 100% LMP 09/16/2007 General appearance: Thin, in no acute distress, and alert, in wheelchair Skin: skin color, texture, turgor normal, no rashes or lesions Nose/Sinuses: Negative Neck: Supple, no adenopathy; thyroid symmetric, normal size Respiratory: lungs clear to auscultation no wheezing or rhonchi Cardiovascular: Negative. RRR without murmur, gallop, or rubs. No ectopy Neuro: Oriented X 3 Data Review I have visually reviewed imaging and testing below CT imaging done today was reviewed and analyzed independently by practitioner CT was compared to prior CT chest. Prior PFTS: No textual results found for the specified procedure(s). Assessment and Plan: 1. Pulmonary Nodule: There are small lung nodules noted on 12/06/2022 scan. Recommended follow-up anytime. Pt is overdue for 12 month LDCT. She is reluctant to proceed with screening. She states she is tired of doctors. Her daughter encouraged her to continue with screening. She plans to schedule for a later date. The patient was counseled on the importance of adherence to annual LDCT lung cancer screening, impact of comorbidities and ability or willingness to undergo diagnosis and treatment. 2. Nicotine Dependence, Current: Smoking cessation encouraged. Offered patient assistance programs and treatment. Patient plans to continue smoking Naomy Bergman APRN.AUTO WASH BUFFER July 13[facility] NoteHNO ID: [id number] Author: YAAKOV HAYES MD Service: ? Author Type: Physician Type: Progress Notes Filed: 06/29/2024 10:29 Note Text: Yaakov Hayes MD Interventional Cardiology [address] [address] [phone] Chief Complaint Patient presents with: Follow Up: one year HISTORY OF PRESENT ILLNESS: Ms. Jerry is a 58 year old female seen in my office today for assessment and management patient had prior history of hypertensive heart disease maintained on CÉSAR inhibitors history of hyperlipidemia maintained on statin Low-dose does lung scan show extensive calcification coronary artery underwent a nuclear stress test shows no evidence of ischemia Patient denies any chest pain or shortness of breath no signs or symptoms of congestive heart failure Cardiac Risk Factors age (male over 45, female over 55), hyperlipidemia, history of smoking, hypertension, family history of CAD PAST MEDICAL HISTORY Diagnosis Date Cataracts, bilateral s/p surgery in 2021 at [facility] Coronary artery calcification 11/[address] chest Diabetic neuropathy (HCC) Folic acid deficiency Gas gangrene of lower extremity (HCC) Goiter, unspecified 09/29/2007 Hypokalemia Hypomagnesemia Known medical problems rt BKA PAD (peripheral artery disease) S/P BKA (below knee amputation) (HCC) 05/31/2022 right Tobacco use disorder Type II or unspecified type diabetes mellitus without mention of complication, uncontrolled Endo: Dr. Madrigal PAST SURGICAL HISTORY Procedure Laterality Date APPENDECTOMY HX 80s CATARACT EXTRACTION HX Bilateral 04/2022 EGD W/O BRSH SPEC VARICIES INJ 2019 with esophageal dilation LEG AMPUTATION HX Right 06/03/2022 BKA PAST SURGICAL HISTORY OF Lt thumb straightened FAMILY HISTORY Problem Relation Age of Onset Stroke Mother Ischemic Heart Disease Mother Diabetes Mother Hypertension Mother Stroke Father Ischemic Heart Disease Father Hypertension Father Diabetes Father Kidney failure Sister Ischemic Heart Disease Brother Massive [place] at age 38 Breast Cancer Paternal Grandmother Social History Tobacco Use Smoking status: Every Day Current packs/day: 0.50 Average packs/day: 0.5 packs/day for 45.3 years (22.6 ttl pk-yrs) Types: Cigarettes Start date: 03/18/1979 Smokeless tobacco: Never Vaping Use Vaping status: Never Used Substance Use Topics Alcohol use: No Drug use: No ALLERGIES No Known Allergies Medications: Current Outpatient Medications Medication Sig Dispense Refill folic acid 1 mg tablet Take 1 tablet by mouth once daily. 90 tablet 0 Magnesium Chloride (SLOW-MAG) 71.5 mg TbEC Take 2 tablets by mouth once daily. 60 tablet 0 ferrous sulfate 325 mg (65 mg iron) tablet Take 1 tablet by mouth once daily. 90 tablet 1 calcium carbonate (CALTRATE) 600 mg calcium (1,500 mg) tab Take 1,200 mg by mouth once daily. aspirin, enteric coated (ASPIRIN, ENTERIC COATED) 81 mg EC tablet Take 81 mg by mouth once daily. albuterol HFA (PROVENTIL HFA, VENTOLIN HFA) 90 mcg/actuation inhaler Inhale 2 Puffs as instructed every 4 hours as needed for wheezing/shortness of breath. 1 Each 3 Cholecalciferol, Vitamin D3, (VITAMIN D) 25 mcg (1,000 unit) cap Take 2 capsules by mouth once daily. Taking 2,000 units daily 180 capsule 1 glipiZIDE (GLUCOTROL) 5 mg tablet Take 5 mg by mouth two times a day before meals. blood sugar diagnostic(TRUETRACK TEST STRIPS) Test blood sugars twice daily. 100 11 blood-glucose meter(TRUETRACK BLOOD GLUCOSE SYSTEM KIT) Test glucose as directed 1 0 blood-glucose control, low(TRUETRACK GLUCOSE SOLN) Test controls as needed 1 3 LANCETS Test blood sugars once daily, 250.00, non insulin dep 100 11 atorvastatin (LIPITOR) 40 mg tablet Take 1 tablet by mouth daily at bedtime. For cholesterol. 90 tablet 3 lisinopril (ZESTRIL) 5 mg tablet Take 1 tablet by mouth once daily. 90 tablet 3 No current facility-administered medications for this visit. Review of Systems Constitutional: Negative for chills, diaphoresis, fever, malaise/fatigue and weight loss. HENT: Negative for congestion, ear discharge, ear pain, hearing loss, nosebleeds, sinus pain, sore throat and tinnitus. Eyes: Negative for blurred vision, double vision, photophobia, pain, discharge and redness. Respiratory: Negative for cough, hemoptysis, sputum production, shortness of breath, wheezing and stridor. Cardiovascular: Negative for chest pain, palpitations, orthopnea, claudication, leg swelling and PND. Gastrointestinal: Negative for abdominal pain, blood in stool, constipation, diarrhea, heartburn, melena, nausea and vomiting. Genitourinary: Negative for dysuria, flank pain, frequency, hematuria and urgency. Musculoskeletal: Negative for back pain, falls, joint pain, myalgias and neck pain. Skin: Negative for itching and rash. Neurological: Negative for dizziness, tingling, tremors, sensory change (more content not included)...[facility]04-14-2025 History of Present illness Narrative* Yaakov Hayes MD - 06/29/2024 10:26 AM EDT Images from the original note were not included. Yaakov Hayes MD Interventional Cardiology [address] [address] [phone] Chief Complaint Patient presents with: Follow Up: one year HISTORY OF PRESENT ILLNESS: Ms. Jerry is a 58 year old female seen in my office today for assessment and management patient hadprior history of hypertensive heart disease maintained on CÉSAR inhibitors history of hyperlipidemia maintained on statin Low-dose does lung scan show extensive calcification coronary artery underwent a nuclear stress test shows no evidence of ischemia Patient denies any chest pain or shortness of breath no signs or symptoms of congestive heart failure Cardiac Risk Factors age (male over 45, female over 55), hyperlipidemia, history of smoking, hypertension, family history of CAD PAST MEDICAL HISTORY Diagnosis Date Cataracts, bilateral s/p surgery in 2021 at [facility] Coronary artery calcification 11/[address] chest Diabetic neuropathy (HCC) Folic acid deficiency Gas gangrene of lower extremity (HCC) Goiter, unspecified 09/29/2007 Hypokalemia Hypomagnesemia Known medical problems rt BKA PAD (peripheral artery disease) S/P BKA (below knee amputation) ([facility]) 05/31/2022 right Tobacco use disorder Type II or unspecified type diabetes mellitus without mention of complication, uncontrolled Endo: Dr. Madrigal PAST SURGICAL HISTORY Procedure Laterality Date APPENDECTOMY HX 80s CATARACT EXTRACTION HX Bilateral 04/2022 EGD W/O BRSH SPEC VARICIES INJ 2019 with esophageal dilation LEG AMPUTATION HX Right 06/03/2022 BKA PAST SURGICAL HISTORY OF Lt thumb straightened FAMILY HISTORY Problem Relation Age of Onset Stroke Mother Ischemic Heart Disease Mother Diabetes Mother Hypertension Mother Stroke Father Ischemic Heart Disease Father Hypertension Father Diabetes Father Kidney failure Sister Ischemic Heart Disease Brother Massive [place] at age 38 Breast Cancer Paternal Grandmother Social History Tobacco Use Smoking status: Every Day Current packs/day: 0.50 Average packs/day: 0.5 packs/day for 45.3 years (22.6 ttl pk-yrs) Types: Cigarettes Start date: 03/18/1979 Smokeless tobacco: Never Vaping Use Vaping status: Never Used Substance Use Topics Alcohol use: No Drug use: No ALLERGIES No Known Allergies Medications: Current Outpatient Medications Medication Sig Dispense Refill folic acid 1 mg tablet Take 1 tablet by mouth once daily. 90 tablet 0 Magnesium Chloride (SLOW-MAG) 71.5 mg TbEC Take 2 tablets by mouth once daily. 60 tablet 0 ferrous sulfate 325 mg (65 mg iron) tablet Take 1 tablet by mouth once daily. 90 tablet 1 calcium carbonate (CALTRATE) 600 mg calcium (1,500 mg) tab Take 1,200 mg by mouth once daily. aspirin, enteric coated (ASPIRIN, ENTERIC COATED) 81 mg EC tablet Take 81 mg by mouth once daily. albuterol HFA (PROVENTIL HFA, VENTOLIN HFA) 90 mcg/actuation inhaler Inhale 2 Puffs as instructed every 4 hours as needed for wheezing/shortness of breath. 1 Each 3 Cholecalciferol, Vitamin D3, (VITAMIN D) 25 mcg (1,000 unit) cap Take 2 capsules by mouth once daily. Taking 2,000 units daily 180 capsule 1 glipiZIDE (GLUCOTROL) 5 mg tablet Take 5 mg by mouth two times a day before meals. blood sugar diagnostic(TRUETRACK TEST STRIPS) Test blood sugars twice daily. 100 11 blood-glucose meter(TRUETRACK BLOOD GLUCOSE SYSTEM KIT) Test glucose as directed 1 0 blood-glucose control, low(TRUETRACK GLUCOSE SOLN) Test controls as needed 1 3 LANCETS Test blood sugars once daily, 250.00, non insulin dep 100 11 atorvastatin (LIPITOR) 40 mg tablet Take 1 tablet by mouth daily at bedtime. For cholesterol. 90 tablet 3 lisinopril (ZESTRIL) 5 mg tablet Take 1 tablet by mouth once daily. 90 tablet 3 No current facility-administered medications for this visit. Review of Systems Constitutional: Negative for chills, diaphoresis, fever, malaise/fatigue and weight loss. HENT: Negative for congestion, ear discharge, ear pain, hearing loss, nosebleeds, sinus pain, sore throat and tinnitus. Eyes: Negative for blurred vision, double vision, photophobia, pain, discharge and redness. Respiratory: Negative for cough, hemoptysis, sputum production, shortness of breath, wheezing and stridor. Cardiovascular: Negative for chest pain, palpitations, orthopnea, claudication, leg swelling and PND. Gastrointestinal: Negative for abdominal pain, blood in stool, constipation, diarrhea, heartburn, melena, nausea and vomiting. Genitourinary: Negative for dysuria, flank pain, frequency, hematuria and urgency. Musculoskeletal: Negative for back pain, falls, joint pain, myalgias and neck pain. Skin: Negative for itching and rash. Neurological: Negative for dizziness, tingling, tremors, sensory change, speech change, focal weakness, seizures, loss of consciousness, weakness and headaches. Endo/Heme/Allergies: Negative for environmental allergies and polydipsia. Does not bruise/bleed easily. Psychiatric/Behavioral: Negative for depression, hallucinations, memory loss, substance abuse and suicidal ideas. The patient is not nervous/anxious and does not have insomnia. Physical Examination: Vitals:BP 124/70 Pulse 87 Resp 12 Ht 5' 0" (1.52m) Wt 98 lb 8 oz (44.7kg) SpO2 99% LMP 09/16/2007 BMI 19.24 kg/(m^2). BP w/Orthostatic Vitals Date and Time Orthostatic BP Orthostatic Pulse BP Pulse BP Position BP Site BP Cuff Size 06/29/24 1016 -- -- 124/70 87 Sitting Right Arm Regular Adult Peak Flow Date and Time PF Resp 06/29/24 1016 -- 12 Last 2 Encounter Wt Readings: Date: Wt: 06/29/2024 98 lb 8 oz (44.7 kg) 06/08/2024 95 lb (43.1 kg) Physical Exam Constitutional: General: She is not in acute distress. Appearance: She is not diaphoretic. HENT: Head: Normocephalic and atraumatic. Right Ear: External ear normal. Left Ear: External ear normal. Nose: Nose normal. Mouth/Throat: Pharynx: Oropharynx is clear. Eyes: General: Right eye: No discharge. Left eye: No discharge. Conjunctiva/sclera: Conjunctivae normal. Pupils: Pupils are equal, round, and reactive to light. Cardiovascular: Rate and Rhythm: Normal rate and regular rhythm. Heart sounds: Normal heart sounds, S1 normal and S2 normal. No murmur heard. No friction rub. No gallop. No S3 or S4 sounds. Pulmonary: Effort: Pulmonary effort is normal. No respiratory distress. Breath sounds: Normal breath sounds. No wheezing or rales. Chest: Chest wall: No tenderness. Abdominal: General: Abdomen is flat. Musculoskeletal: General: Normal range of motion. Cervical back: Normal range of motion and neck supple. Skin: General: Skin is warm and dry. Neurological: Mental Status: She is alert and oriented to person, place, and time. Psychiatric: Mood and Affect: Mood normal. Thought Content: Thought content normal. Pertinent Labs: CBC: Hemoglobin (g/dL) Date Value 05/13/2024 8.1 Hematocrit (%) Date Value 05/13/2024 24.6 HCT (%) Date Value 06/22/2022 31.8 WBC Date Value 05/13/2024 15.68 k/uL 06/22/2022 5.8 K/uL 06/27/2005 Negative /hpf Platelet Count (k/uL) Date Value 05/13/2024 389 PLT (K/uL) Date Value 06/22/2022 192 BMP: Glucose (mg/dL) Date Value 05/13/2024 254 06/27/2005 >=1000 Potassium (mmol/L) Date Value 05/28/2024 3.5 Sodium (mmol/L) Date Value 05/13/2024 135 Chloride (mmol/L) Date Value 05/13/2024 93 CO2 (mmol/L) Date Value 05/13/2024 27 Creatinine (mg/dL) Date Value 05/13/2024 0.75 06/29/2022 0.8 BUN (mg/dL) Date Value 05/13/2024 7 Anion Gap (mmol/L) Date Value 05/13/2024 15 Calcium, Total (mg/dL) Date Value 05/13/2024 9.7 INR: Lipid Profile: Total Cholesterol, Nonfasting Date Value Ref Range Status 05/13/2024 139 <200 mg/dL Final Comment: <200 mg/dL, Desirable 200-239 mg/dL, Borderline high >239 mg/dL, High HDL Cholesterol, Nonfasting Date Value Ref Range Status 05/13/2024 66 >39 mg/dL Final Comment: 40-59 mg/dL, Acceptable >59 mg/dL, High: Negative risk factor for coronary heart disease <40 mg/dL, Low: Positive risk factor for coronary heart disease LDL Cholesterol, Nonfasting Date Value Ref Range Status 05/13/2024 48 <100 mg/dL Final Comment: <100 mg/dL, Optimal 100-129 mg/dL, Near optimal/above optimal 130-159 mg/dL, Borderline high 160-189 mg/dL, High >189 mg/dL, Very high Secondary prevention optimal LDL Cholesterol levels are recommended to be < 70 mg/dL Triglycerides, Nonfasting Date Value Ref Range Status 05/13/2024 125 <150 mg/dL Final Comment: <150 mg/dL, Normal 150-199 mg/dL, Borderline high 200-499 mg/dL, High >499 mg/dL, Very high Hemoglobin A1C: No results found for: "HGBA1C" TSH: No results found for: "TSHREFL" Prior Cardiac Testing None Assessment and Plan: 58 years old female patient with coronary calcification and negative nuclear stress test ASSESSMENT/PLAN: 1. Coronary artery calcification - ICD9: 414.00, ICD10: I25.10 (primary diagnosis) Three-vessel extensive coronary calcification in the setting of normal nuclear stress test and absence of chest pain or shortness of breath Continue risk factor modification lifestyle changes 2. Primary hypertension - ICD9: 401.9, ICD10: I10 - Controlled - Continue current medications - Recommend home blood pressure monitoring, to bring results to next visit - Encouraged sodium restriction, DASH or Mediterranean diet - Recommend regular aerobic exercise Yaakov Hayes MD Follow up planning: One year Electronically signed by Yaakov Hayes MD on June 29, 2024, 10:26 AM The above note was partially created using a dictation recognition software. A reasonable attempt has been made to correct any errors. documented in this encounter[facility] NoteHNO ID: [id number] Author: KEDAR LONG, ? Service: ? Author Type: Physician Type: Progress Notes Filed: 06/18/2024 13:44 Note Text: Last saw pcp: 05/13/24 Subjective: Patient presents to clinic c/o painful toenails. They state that the nails are especially painful with shoe gear and pressure. Patient admits to being diabetic. No other pedal complaints at this time. Patient states no change in medications or medical history since last visit. Objective: Patient presents to clinic nonambulatory Vasc: DP and PT pulses are palpable left. CFT is less than 5 seconds left Skin temperature is warm to cool proximal to distal bilateral. There is no edema or varicosities noted. Neuro: Protective sensation is intact to the foot and toes when tested with the 5.07 SWM left. Vibratory sensation is decreased at the hallux IPJ left. Derm: Nails 1-5 left are discolored-yellow, thick, crumbly, dystrophic and with subungal debris. Skin is of normal turgor, texture and hair growth is decreased left. There are callus to left 4th toe lateral aspect, callus to left 1st and 5th metatarsal. Ortho: Muscle strength is 5/5 for all pedal groups tested. Ankle joint DF is decreased with the knee extended with no pain or crepitus noted. 1st MPJ ROM is decreased left. 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 Assessment: (E11.42) Diabetic polyneuropathy associated with type 2 diabetes mellitus (HCC) (primary encounter diagnosis) (B35.1) Onychomycosis (Z89.511) History of below-knee amputation of right lower extremity ([facility]) (L84) Callus of foot (M20.42) Hammertoe of left foot Plan: Patient was seen and evaluated. Nails 1-5 left were debrided in length and thickness. Small bleed to left 5th toe. Band aide applied Discussed hammertoe of left 5th toe leading to rubbing on 4th toe. She has callus to the 4th toe. Options include padding between the toes, derotational arthroplasty of left 5th toe, syndactyl of 4th and 5th toe vs amputation of left 5th toe. This patient has elected to continue with padding. Callus of left 4th toe reduced with 15 blade and dremmel. Callus of left 1st and left 5th metatarsal reduced with dremmel. Patient was instructed on the continued importance of diabetic foot care along with proper diet and keeping their blood sugar under control to prevent complications. I stressed the importance of avoiding barefoot walking, wearing good shoes and inspection of feet. I discussed how this patient suffers from neuropathy and that it is important that she monitor for any open wounds. If she develops any issues, she is to contact our office immediately and we will have them seen. Patient is to RTC in 9 weeks Kedar Long [facility]04-03-2025 History of Present illness Narrative* Kedar Long - 06/18/2024 1:23 PM EDT Last saw pcp: 05/13/24 Subjective: Patient presents to clinic c/o painful toenails. They state that the nails are especially painful with shoe gear and pressure. Patient admits to being diabetic. No other pedal complaints at this time. Patient states no change in medications or medical history since last visit. Objective: Patient presents to clinic nonambulatory Vasc: DP and PT pulses are palpable left. CFT is less than 5 seconds left Skin temperature is warm to cool proximal to distal bilateral. There is no edema or varicosities noted. Neuro: Protective sensation is intact to the foot and toes when tested with the 5.07 SWM left. Vibratory sensation is decreased at the hallux IPJ left. Derm: Nails 1-5 left are discolored-yellow, thick, crumbly, dystrophic and with subungal debris. Skin is of normal turgor, texture and hair growth is decreased left. There are callus to left 4th toe lateral aspect, callus to left 1st and 5th metatarsal. Ortho: Muscle strength is 5/5 for all pedal groups tested. Ankle joint DF is decreased with the knee extended with no pain or crepitus noted. 1st MPJ ROM is decreased left. 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 Assessment: (E11.42) Diabetic polyneuropathy associated with type 2 diabetes mellitus (HCC) (primary encounter diagnosis) (B35.1) Onychomycosis (Z89.511) History of below-knee amputation of right lower extremity (HCC) (L84) Callus of foot (M20.42) Hammertoe of left foot Plan: Patient was seen and evaluated. Nails 1-5 left were debrided in length and thickness. Small bleed to left 5th toe. Band aide applied Discussed hammertoe of left 5th toe leading to rubbing on 4th toe. She has callus to the 4th toe. Options include padding between the toes, derotational arthroplasty of left 5th toe, syndactyl of 4thand 5th toe vs amputation of left 5th toe. This patient has elected to continue with padding. Callus of left 4th toe reduced with 15 blade and dremmel. Callus of left 1st and left 5th metatarsal reduced with dremmel. Patient was instructed on the continued importance of diabetic foot care along with proper diet andkeeping their blood sugar under control to prevent complications. I stressed the importance of avoiding barefoot walking, wearing good shoes and inspection of feet. I discussed how this patient suffers from neuropathy and that it is important that she monitor for any open wounds. If she develops any issues, she is to contact our office immediately and we will have them seen. Patient is to RTC in 9 weeks Kedar Long DPM * Emelyn Cee LPN - 06/18/2024 1:12 PM EDT AMB ROOMING INTAKE FLOWSHEET DATA Patient presents with: Left Foot - Established Patient, Diabetic Foot Care, Follow Up Emelyn Cee LPN documented in this encounterSelect [facility]25 NoteHNO ID: [id number] Author: EMELYN CEE LPN Service: ? Author Type: LICENSED NURSE Type: Progress Notes Filed: 06/18/2024 13:44 Note Text: AMB ROOMING INTAKE FLOWSHEET DATA Patient presents with: Left Foot - Established Patient, Diabetic Foot Care, Follow Up [facility] NoteHNO ID: [id number] Author: GAYE TANG MD Service: ? Author Type: Physician Type: Progress Notes Filed: 06/09/2024 15:07 Note Text: HISTORY AND PHYSICAL Sanjuanita Jerry 1965 REFERRING PHYSICIAN: No ref. provider found CHIEF COMPLAINT: No chief complaint on file. HPI: The patient is a 58 year old female referred for endoscopy. Sanjuanita has had no previous colonoscopy. She notes no blood in her stools. She denies chronic abdominal pain. She is anemic, with last Hgb of 8.1. She notes no family members with colon cancer. 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 PAST MEDICAL HISTORY Diagnosis Date Cataracts, bilateral s/p surgery in 2021 at [facility] Coronary artery calcification 11/[address] chest Diabetic neuropathy (HCC) Folic acid deficiency Gas gangrene of lower extremity (HCC) Goiter, unspecified 09/29/2007 Hypokalemia Hypomagnesemia Known medical problems rt BKA PAD (peripheral artery disease) ([facility]) S/P BKA (below knee amputation) ([facility]) 05/31/2022 right Tobacco use disorder Type II or unspecified type diabetes mellitus without mention of complication, uncontrolled Endo: Dr. Madrigal PAST SURGICAL HISTORY Procedure Laterality Date APPENDECTOMY HX 80s CATARACT EXTRACTION HX Bilateral 04/2022 EGD W/O BRSH SPEC VARICIES INJ 2018 with esophageal dilation LEG AMPUTATION HX Right 06/03/2022 BKA PAST SURGICAL HISTORY OF Lt thumb straightened Current Outpatient Medications Medication Sig folic acid 1 mg tablet Take 1 tablet by mouth once daily. Magnesium Chloride (SLOW-MAG) 71.5 mg TbEC Take 2 tablets by mouth once daily. ferrous sulfate 325 mg (65 mg iron) tablet Take 1 tablet by mouth once daily. calcium carbonate (CALTRATE) 600 mg calcium (1,500 mg) tab Take 1,200 mg by mouth once daily. atorvastatin (LIPITOR) 40 mg tablet Take 1 tablet by mouth daily at bedtime. For cholesterol. lisinopril (ZESTRIL) 5 mg tablet Take 1 tablet by mouth once daily. aspirin, enteric coated (ASPIRIN, ENTERIC COATED) 81 mg EC tablet Take 81 mg by mouth once daily. albuterol HFA (PROVENTIL HFA, VENTOLIN HFA) 90 mcg/actuation inhaler Inhale 2 Puffs as instructed every 4 hours as needed for wheezing/shortness of breath. Cholecalciferol, Vitamin D3, (VITAMIN D) 25 mcg (1,000 unit) cap Take 2 capsules by mouth once daily. Taking 2,000 units daily glipiZIDE (GLUCOTROL) 5 mg tablet Take 5 mg by mouth two times a day before meals. blood sugar diagnostic(PlatogoTRACK TEST STRIPS) Test blood sugars twice daily. blood-glucose meter(Element ID BLOOD GLUCOSE SYSTEM KIT) Test glucose as directed blood-glucose control, low(TRUETRACK GLUCOSE SOLN) Test controls as needed LANCETS Test blood sugars once daily, 250.00, non insulin dep No current facility-administered medications for this visit. ALLERGIES: Patient has no known allergies. PERSONAL HISTORY: Social History Tobacco Use Smoking status: Every Day Current packs/day: 0.50 Average packs/day: 0.5 packs/day for 45.2 years (22.6 ttl pk-yrs) Types: Cigarettes Start date: 03/18/1979 Smokeless tobacco: Never Vaping Use Vaping status: Never Used Substance Use Topics Alcohol use: No Drug use: No FAMILY HISTORY Problem Relation Age of Onset Stroke Mother Ischemic Heart Disease Mother Diabetes Mother Hypertension Mother Stroke Father Ischemic Heart Disease Father Hypertension Father Diabetes Father Kidney failure Sister Ischemic Heart Disease Brother Massive AR at age 38 Breast Cancer Paternal Grandmother REVIEW OF SYSTEMS: General - denies fevers Cardiovascular - denies chest pain Pulmonary - denies coughing up blood Gastrointestinal - denies abdominal pain, denies hematemesis, denies blood in stools Neurological - denies seizures Genitourinary - denies blood in urine Hematological - denies spontaneous/prolonged bleeding Musculoskeletal - s/p right BKA Endocrine - has diabetes Psychological - denies hallucinations PHYSICAL EXAMINATION: General: The patient is 58 year old female, well nourished, well hydrated in no acute distress. Looks older than stated age. The patient is oriented to time, place, and person. VITALS: Blood pressure 124/62, pulse 86, temperature 36.8 ?C (98.2 ?F), height 152.4 cm (5'), weight 43.1 kg (95 lb), last menstrual period 09/16/2007, SpO2 99%. There is no height or weight on file to calculate BMI. Head: Normal cephalic, atraumatic Eyes: pupils are equally round, sclera are clear/anicteric, wearing glasses Neck is supple with no tracheal deviation Cardiac: normal heart sounds, regular Respiratory: Normal respiratory excursion and pattern. Abdominal exam: benign Extremities: status post right BKA Neuro: non focal Psych: normal mood The sensitive examination was discussed with the Patient or Patient's Authorized Diesel Service Technician. As applicable, any other physician, advance practice provider, medical stud (more content not included)...[facility]03-24-2025 History of Present illness Narrative* Gaye Tang MD - 06/08/2024 10:19 AM EDT HISTORY AND PHYSICAL Sanjuanita Jerry 1965 REFERRING PHYSICIAN: No ref. provider found CHIEF COMPLAINT: No chief complaint on file. HPI: The patient is a 58 year old female referred for endoscopy. Sanjuanita has had no previous colonoscopy. She notes no blood in her stools. She denies chronic abdominal pain. She is anemic, with last Hgb of 8.1. She notes no family members with colon cancer. 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 PAST MEDICAL HISTORY Diagnosis Date Cataracts, bilateral s/p surgery in 2021 at [facility] Coronary artery calcification 11/[address] chest Diabetic neuropathy (HCC) Folic acid deficiency Gas gangrene of lower extremity (HCC) Goiter, unspecified 09/29/2007 Hypokalemia Hypomagnesemia Known medical problems rt BKA PAD (peripheral artery disease) ([facility]) S/P BKA (below knee amputation) ([facility]) 05/31/2022 right Tobacco use disorder Type II or unspecified type diabetes mellitus without mention of complication, uncontrolled Endo: Dr. Madrigal PAST SURGICAL HISTORY Procedure Laterality Date APPENDECTOMY HX 80s CATARACT EXTRACTION HX Bilateral 04/2022 EGD W/O BRSH SPEC VARICIES INJ 2019 with esophageal dilation LEG AMPUTATION HX Right 06/03/2022 BKA PAST SURGICAL HISTORY OF Lt thumb straightened Current Outpatient Medications Medication Sig folic acid 1 mg tablet Take 1 tablet by mouth once daily. Magnesium Chloride (SLOW-MAG) 71.5 mg TbEC Take 2 tablets by mouth once daily. ferrous sulfate 325 mg (65 mg iron) tablet Take 1 tablet by mouth once daily. calcium carbonate (CALTRATE) 600 mg calcium (1,500 mg) tab Take 1,200 mg by mouth once daily. atorvastatin (LIPITOR) 40 mg tablet Take 1 tablet by mouth daily at bedtime. For cholesterol. lisinopril (ZESTRIL) 5 mg tablet Take 1 tablet by mouth once daily. aspirin, enteric coated (ASPIRIN, ENTERIC COATED) 81 mg EC tablet Take 81 mg by mouth once daily. albuterol HFA (PROVENTIL HFA, VENTOLIN HFA) 90 mcg/actuation inhaler Inhale 2 Puffs as instructed every 4 hours as needed for wheezing/shortness of breath. Cholecalciferol, Vitamin D3, (VITAMIN D) 25 mcg (1,000 unit) cap Take 2 capsules by mouth once daily. Taking 2,000 units daily glipiZIDE (GLUCOTROL) 5 mg tablet Take 5 mg by mouth two times a day before meals. blood sugar diagnostic(TRUETRACK TEST STRIPS) Test blood sugars twice daily. blood-glucose meter(TRUETRACK BLOOD GLUCOSE SYSTEM KIT) Test glucose as directed blood-glucose control, low(TRUETRACK GLUCOSE SOLN) Test controls as needed LANCETS Test blood sugars once daily, 250.00, non insulin dep No current facility-administered medications for this visit. ALLERGIES: Patient has no known allergies. PERSONAL HISTORY: Social History Tobacco Use Smoking status: Every Day Current packs/day: 0.50 Average packs/day: 0.5 packs/day for 45.2 years (22.6 ttl pk-yrs) Types: Cigarettes Start date: 03/18/1979 Smokeless tobacco: Never Vaping Use Vaping status: Never Used Substance Use Topics Alcohol use: No Drug use: No FAMILY HISTORY Problem Relation Age of Onset Stroke Mother Ischemic Heart Disease Mother Diabetes Mother Hypertension Mother Stroke Father Ischemic Heart Disease Father Hypertension Father Diabetes Father Kidney failure Sister Ischemic Heart Disease Brother Massive [place] at age 38 Breast Cancer Paternal Grandmother REVIEW OF SYSTEMS: General - denies fevers Cardiovascular - denies chest pain Pulmonary - denies coughing up blood Gastrointestinal - denies abdominal pain, denies hematemesis, denies blood in stools Neurological - denies seizures Genitourinary - denies blood in urine Hematological - denies spontaneous/prolonged bleeding Musculoskeletal - s/p right BKA Endocrine - has diabetes Psychological - denies hallucinations PHYSICAL EXAMINATION: General: The patient is 58 year old female, well nourished, well hydrated in no acute distress. Looks older than stated age. The patient is oriented to time, place, and person. VITALS: Blood pressure 124/62, pulse 86, temperature 36.8 C (98.2 F), height 152.4 cm (5'), weight 43.1 kg (95 lb), last menstrual period 09/16/2007, SpO2 99%. There is no height or weight on file tocalculate BMI. Head: Normal cephalic, atraumatic Eyes: pupils are equally round, sclera are clear/anicteric, wearing glasses Neck is supple with no tracheal deviation Cardiac: normal heart sounds, regular Respiratory: Normal respiratory excursion and pattern. Abdominal exam: benign Extremities: status post right BKA Neuro: non focal Psych: normal mood The sensitive examination was discussed with the Patient or Patient's Authorized Diesel Service Technician. Asapplicable, any other physician, advance practice provider, medical student, or other health professional student that will be observing or involved in the sensitive examination for educational or training purposes was discussed with the Patient or Authorized Diesel Service Technician. The Patient or Authorized Diesel Service Technician has agreed to proceed with the sensitive examination. (Sensitive examination includes inspection and/or palpation of the breasts, pelvis, prostate and anorectal regions) Assessment IMPRESSION: anemia, screening for colon cancer PLAN: I have discussed the above with the patient. She is here with her daughter. I have offered colonoscopy and EGD, possible biopsies I have explained the procedure to the patient. To be done at [facility] I have counseled the patient as to the risks of the procedure, including but not limited to: infection, bleeding, injury to any intrabdominal organs such as liver/spleen, perforation of the GI tract,inability to complete the procedure, complications of anesthesia, etc. - the patient understands. The patient will think about it. She did not schedule for any procedures in this patient encounter. I have encouraged patient to return to clinic when she has made a decision to proceed and/or any worsening signs/symptoms. She has cardiology and pulmonary appointments pending (latest in 07/13) and will require completion of these prior to any anesthesia. The patient acknowledges the above. I have answered all questions to the patient s satisfaction and the patient has no further questions. Diagnoses: (D64.9) Anemia, unspecified type (primary encounter diagnosis) I have confirmed and edited as necessary, the PFSH and ROS obtained by others. I spent a total of 25 minutes on the date of the service which included preparing to see the patient with review of any pertinent laboratory studies/radiological imaging/medical records, aynt-[id number] care, obtaining oral medical history from the patient in this encounter, performing a medically appropriate examination, counseling and educating the patient/family/caregiver, and completing appropriate medical documentation. Gaye Tang MD documented in this encounterSelect [facility]03-[facility] Telephone encounter Note * Telephone Encounter - Floresita Mix MA - 05/29/2024 11:36 AM EDT Pt notified. Transferred to [facility] to set up appt with Gen. Surg. Floresita Mix MA [facility]03-14-2025 Telephone encounter Note* Telephone Encounter - Floresita Mix MA - 05/29/2024 11:36 AM EDT Pt notified and voiced understanding. Floresita Mix MA [facility]03-14-2025 Miscellaneous Notes* Telephone Encounter - Floresita Mix MA - 05/29/2024 11:36 AM EDT Pt notified. Transferred to [facility] to set up appt with Gen. Surg. Floresita Mix MA * Telephone Encounter - Erica Herman MD - 05/29/2024 10:27 AM EDT FOBT positive for blood. Recommend referral to general surgery for EGD and colonoscopy. documented in this encounterSelect [facility]-2025 Miscellaneous Notes* Telephone Encounter - Floresita Mix MA - 05/29/2024 11:36 AM EDT Pt notified and voiced understanding. Floresita Mix MA * Telephone Encounter - Erica Herman MD - 05/29/2024 8:04 AM EDT Repeat potassium, folate, and magnesium levels are back to normal range. Finish out the month for the magnesium supplement. Will give 3 months worth of folic acid. Recheck labs in 1 month to monitor. documented [facility] encounter[facility] Telephone encounter Note * Telephone Encounter - Erica Herman MD - 05/29/2024 10:27 AM EDT FOBT positive for blood. Recommend referral to general surgery for EGD and colonoscopy. [facility]03-14-[facility] Telephone encounter Note* Telephone Encounter - Erica Herman MD - 05/29/2024 8:04 AM EDT Repeat potassium, folate, and magnesium levels are back to normal range. Finish out the month for the magnesium supplement. Will give 3 months worth of folic acid. Recheck labs in 1 month to monitor. [facility]03-12-[facility]25 Evaluation note* Diagnosis Onset Date Resolution Status Admit Date Housing instability acute May 27, 2024 10:09am Diabetes chronic May 27 10:09am Hypertension chronic May 27, 2024 10:09am Microalbuminuria chronic May 272024 10:09am Osteoporosis chronic May 27, 2024 10:09am Underweight chronic May 27, 2 025 10:09am Abnormal urinalysis acute July 222024 9:41am VIJAY (acute kidney injury) acute July 22, 2024 9:41am Dehydration acute July 22, 2024 9:41am Diarrhea acute July 22, 2024 9:41am High anion gap metabolic acidosis ac kishore July 22, 2024 9:41am Hyperosmolar hyperglycemic s taylor (HHS) acute July 22, 2024 9: 41am Leukocytosis acute July 22 9:41am Noncompliance acute July 22 9:41am Thrombocytosis acute July 22, 025 9:41am Uncontrolled hypertension acute July 22, 2024 9:41am Vaginal yeast infection acute M ay 2024 9:41am [facility] Work Phone: 1(411) 134-708903-12-2025 Evaluation note* Diagnosis Onset Date Resolution Status Admit Date Housing instability acute May 27, 2024 10:09am Diabetes chronic May 27 10:09am Hypertension chronic May 27, 2024 10:09am Microalbuminuria chronic May 272024 10:09am Osteoporosis chronic May 27, 2024 10:09am Underweight chronic May 27, 025 10:09am Diarrhea acute July 22, 2024 9:41am Noncompliance acute July 22 9:41am Abnormal urinalysis resolved July 222024 9:41am VIJAY (acute kidney injury) resolved July 22, 2024 9:41am Dehydration resolved July 22, 2024 9:41am High anion gap metabolic acidosis re solved July 22, 2024 9:41am Hyperosmolar hyperglycemic s taylor (HHS) resolved July 22, 2024 9: 41am Leukocytosis resolved July 22 9:41am Thrombocytosis resolved July 22 9:41am Uncontrolled hypertension resolved July 22, 2024 9:41am Vaginal yeast infection resolved M ay 2024 9:41am [facility] Work Phone: 1(412) 895-503303-12-2025 Evaluation note* Diagnosis Onset Date Resolution Status Admit Date Housing instability acute May 27, 2024 10:09am Diabetes chronic May 27 10:09am Hypertension chronic May 27, 2024 10:09am Osteoporosis chronic May 27, 2024 10:09am Underweight chronic May 27, 025 10:09am Microalbuminuria deleted May 272024 10:09am Diarrhea acute July 22, 2024 9:41am Noncompliance chronic July 22 9:41am Abnormal urinalysis resolved July 222024 9:41am VIJAY (acute kidney injury) resolved July 22, 2024 9:41am Dehydration resolved July 22, 2024 9:41am High anion gap metabolic acidosis re solved July 22, 2024 9:41am Hyperosmolar hyperglycemic s taylor (HHS) resolved July 22, 2024 9: 41am Leukocytosis resolved July 22 9:41am Thrombocytosis resolved July 22 9:41am Uncontrolled hypertension resolved July 22, 2024 9:41am Vaginal yeast infection resolved M ay 2024 9:41am Diabetes chronic August 26 10:44am Hypertension chronic August 26, 025 10:44am Microalbuminuria due to type 2 diabetes mellitus chronic August 26 10:44am Noncompliance chronic August 26, 2024 10:44am Osteoporosis chronic August 26 025 10:44am Vitamin D deficiency chronic August 26, 2024 10:44am [facility] Work Phone: 1(774) 870-130203-06-2025 Telephone encounter Note* Telephone Encounter - Felecia Navarro LPN - 05/21/2024 3:04 PM EST Phoned patient and reviewed results and recommendations with her. Had her write things down to helpher keep multiple orders straight. Patient voiced understanding and repeated orders back. Felecia Navarro LPN [facility]03-06-2025 Miscellaneous Notes* Telephone Encounter - Felecia Navarro LPN - 05/21/2024 3:04 PM EST Phoned patient and reviewed results and recommendations with her. Had her write things down to helpher keep multiple orders straight. Patient voiced understanding and repeated orders back. Felecia Navarro LPN * Telephone Encounter - Felecia Navarro LPN - 05/21/2024 2:55 PM EST ----- Message from Erica Herman MD sent at 05/21/2024 2:14 PM EST ----- Labs show low folic acid level, low iron level with normal iron stores, low potassium and magnesium. Low folic acid may be contributing to her anemia. Recommend she take folic acid supplement and slow mag as prescribed for 30 days with lab recheck in3-4 weeks. Potassium level is very difficult to get back to normal while the magnesium level is low. Recommend taking 10 meq daily x 5 days and rechecking labs in Continue daily iron supplement. Let me know if she needs refills. She still needs to complete her FOBT kit and bring in for our records. Urine potassium level needs completed as well. documented in this encounter[facility] Telephone encounter Note * Telephone Encounter - Felecia Navarro LPN - 05/21/2024 2:55 PM EST ----- Message from Erica Herman MD sent at 05/21/2024 2:14 PM EST ----- Labs show low folic acid level, low iron level with normal iron stores, low potassium and magnesium. Low folic acid may be contributing to her anemia. Recommend she take folic acid supplement and slow mag as prescribed for 30 days with lab recheck in3-4 weeks. Potassium level is very difficult to get back to normal while the magnesium level is low. Recommend taking 10 meq daily x 5 days and rechecking labs in Continue daily iron supplement. Let me know if she needs refills. She still needs to complete her FOBT kit and bring in for our records. Urine potassium level needs completed as well. [facility]03-04[facility] Telephone encounter Note* Telephone Encounter - Consuelo Booth RN - 05/19/2024 2:40 PM EST Call placed to patient and notified that order placed as requested. Consuelo Booth RN [facility]03-04-2025 Miscellaneous Notes* Telephone Encounter - Consuelo Booth RN - 05/19/2024 2:40 PM EST Call placed to patient and notified that order placed as requested. Consuelo Booth RN * Telephone Encounter - Erica Herman MD - 05/19/2024 9:43 AM EST Order placed as requested. * Telephone Encounter - Consuelo Booth RN - 05/19/2024 9:34 AM EST Patient calls to ask if provider can place another order for stool for occult blood since the orderin place has . Pended previous order not completed from 11/05/2023. Patient coming to lab on Saturday for potassium and will bulk picker at that time. Consuelo Booth RN documented in this encounter[facility]03-[facility]25 Telephone encounter Note * Telephone Encounter - Erica Herman MD - 05/19/2024 9:43 AM EST Order placed as requested. [facility]03-04-2025 Telephone encounter Note* Telephone Encounter - Consuelo Booth RN - 05/19/2024 9:34 AM EST Patient calls to ask if provider can place another order for stool for occult blood since the orderin place has . Pended previous order not completed from 11/05/2023. Patient coming to lab on Saturday for potassium and will bulk picker at that time. Consuelo Booth RN [facility]02-27-2025 Telephone encounter Note* Telephone Encounter - Felecia Navarro LPN - 05/14/2024 4:25 PM EST Phoned patient and reviewed message with her multiple times until she voiced understanding. Patientreported she will be in next week to complete the lab work. Felecia Navarro LPN [facility]02-27-2025 Miscellaneous Notes* Telephone Encounter - Felecia Navarro LPN - 05/14/2024 4:25 PM EST Phoned patient and reviewed message with her multiple times until she voiced understanding. Patientreported she will be in next week to complete the lab work. Felecia Navarro LPN * Telephone Encounter - Erica Herman MD - 05/14/2024 1:13 PM EST Patient's labs show high sugar at 254 without other signs of DKA, low potassium, and worsening anemia. For low potassium level, she is not on typical medications that would cause this and she did not complain of vomiting or diarrhea at OV yesterday. Recommend checking urine studies as ordered and taking 20 meq potassium daily for 5 days. Repeat potassium and magnesium level in 5 days. Needs to follow up with endo for uncontrolled DM. For anemia, needs to bring in FOBT kit as discussed and will order additional labs to try to determine where this is coming from. documented in this encounter[facility] [place] [facility] Telephone encounter Note * Telephone Encounter - Erica Herman MD - 05/14/2024 1:13 PM EST Patient's labs show high sugar at 254 without other signs of DKA, low potassium, and worsening anemia. For low potassium level, she is not on typical medications that would cause this and she did not complain of vomiting or diarrhea at OV yesterday. Recommend checking urine studies as ordered and taking 20 meq potassium daily for 5 days. Repeat potassium and magnesium level in 5 days. Needs to follow up with endo for uncontrolled DM. For anemia, needs to bring in FOBT kit as discussed and will order additional labs to try to determine where this is coming from. [facility]02-[facility]25 NoteHNO ID: [id number] Author: ERICA HERMAN MD Service: ? Author Type: Physician Type: Progress Notes Filed: 05/13/2024 12:10 Note Text: Chief Complaint Patient presents with: Follow Up: 6 month HPI Sanjuanita Jerry is a 58 year old female who presents here today for Above Complaints. Patient has been in good health without recent hospitalizations, ER visits, or falls. No concerns today. Patient states she continues to wear prosthesis for right BKA. Has history of wound and gas gangrene without signs of recurrence. No longer following up with ortho. Denies fever/chills, swelling, erythema, drainage. Seeing Dr. Long for callus of left foot and ulceration of left 4th toe which has healed. No changes today. Wearing toe cap and has f/u appointment scheduled. BP well controlled on current regimen. Does not check BP at home. Taking lisinopril as prescribed without side effects. Denies headaches, chest pain, SOB, palpitations. DM managed by Dr. Wan Madrigal's office. Last OV about 5 weeks ago and has f/u in May. Reports A1c of 8.2. Taking Glipizide without side effects or hypoglycemia. Stopped metformin due to diarrhea. Checking sugars daily with readings in the 120-210 when fasting. 209 this morning. Has not notified endocrinology of high readings. Still smoking about 1/4 pack per day. Not interested in quitting. Overdue for lung cancer screening. Has FOBT kit at home for colon cancer screening. Will complete and bring this in. Past medical history, appointments, medications, allergies reviewed. Previous Medical History PAST MEDICAL HISTORY Diagnosis Date Cataracts, bilateral s/p surgery in 2021 at [facility] Coronary artery calcification 11/[address] chest Diabetic neuropathy (HCC) Gas gangrene of lower extremity (HCC) Goiter, unspecified 09/29/2007 Known medical problems rt BKA PAD (peripheral artery disease) (HCC) S/P BKA (below knee amputation) ([facility]) 05/31/2022 right Tobacco use disorder Type II or unspecified type diabetes mellitus without mention of complication, uncontrolled Endo: Dr. Madrigal Previous Surgical History PAST SURGICAL HISTORY Procedure Laterality Date APPENDECTOMY HX 80s CATARACT EXTRACTION HX Bilateral 04/2022 EGD W/O BRSH SPEC VARICIES INJ 2019 with esophageal dilation LEG AMPUTATION HX Right 06/03/2022 BKA PAST SURGICAL HISTORY OF Lt thumb straightened Family History FAMILY HISTORY Problem Relation Age of Onset Stroke Mother Ischemic Heart Disease Mother Diabetes Mother Hypertension Mother Stroke Father Ischemic Heart Disease Father Hypertension Father Diabetes Father Kidney failure Sister Ischemic Heart Disease Brother Massive AR at age 38 Breast Cancer Paternal Grandmother Patient Allergies ALLERGIES No Known Allergies Current Medications Current Outpatient Medications on File Prior to Visit Medication Sig ferrous sulfate 325 mg (65 mg iron) tablet Take 1 tablet by mouth once daily. calcium carbonate (CALTRATE) 600 mg calcium (1,500 mg) tab Take 1,200 mg by mouth once daily. aspirin, enteric coated (ASPIRIN, ENTERIC COATED) 81 mg EC tablet Take 81 mg by mouth once daily. albuterol HFA (PROVENTIL HFA, VENTOLIN HFA) 90 mcg/actuation inhaler Inhale 2 Puffs as instructed every 4 hours as needed for wheezing/shortness of breath. glipiZIDE (GLUCOTROL) 5 mg tablet Take 5 mg by mouth two times a day before meals. blood sugar diagnostic(PlatogoTRACK TEST STRIPS) Test blood sugars twice daily. blood-glucose meter(Element ID BLOOD GLUCOSE SYSTEM KIT) Test glucose as directed blood-glucose control, low(TRUETRACK GLUCOSE SOLN) Test controls as needed LANCETS Test blood sugars once daily, 250.00, non insulin dep atorvastatin (LIPITOR) 40 mg tablet Take 1 tablet by mouth daily at bedtime. For cholesterol. lisinopril (ZESTRIL) 5 mg tablet Take 1 tablet by mouth once daily. Cholecalciferol, Vitamin D3, (VITAMIN D) 25 mcg (1,000 unit) cap Take 2 capsules by mouth once daily. Taking 2,000 units daily No current facility-administered medications on file prior to visit. Social History Social History Tobacco Use Smoking status: Every Day Current packs/day: 0.50 Average packs/day: 0.5 packs/day for 45.2 years (22.6 ttl pk-yrs) Types: Cigarettes Start date: 03/18/1979 Smokeless tobacco: Never Vaping Use Vaping status: Never Used Substance Use Topics Alcohol use: No Drug use: No Review of Symptoms REVIEW OF SYSTEMS GENERAL: No weight loss, malaise or fevers RESPIRATORY: Negative for cough, hemoptysis, wheezing, COPD, dyspnea or shortness of breath CARDIOVASCULAR: Negative for chest pain, leg swelling, hypertension, CHF or palpitations GI: No nausea, vomiting, or diarrhea SKIN: Negative for lesions, rash, and itching EXAM: BP 116/64 Pulse 102 Resp 16 Wt 43.5 kg (95 lb 12.8 oz) LMP 09/16/2007 SpO2 99% BMI 17.81 kg/m? General Appearance: Well ap (more content not included)...[facility]02-26-2025 History of Present illness Narrative* Erica Herman MD - 05/13/2024 10:58 AM EST Chief Complaint Patient presents with: Follow Up: 6 month HPI Sanjuanita Jerry is a 58 year old female who presents here today for Above Complaints. Patient has beenin good health without recent hospitalizations, ER visits, or falls. No concerns today. Patient states she continues to wear prosthesis for right BKA. Has history of wound and gas gangrene without signs of recurrence. No longer following up with ortho. Denies fever/chills, swelling, erythema, drainage. Seeing Dr. Long for callus of left foot and ulceration of left 4th toe which has healed. No changes today. Wearing toe cap and has f/u appointment scheduled. BP well controlled on current regimen. Does not check BP at home. Taking lisinopril as prescribed without side effects. Denies headaches, chest pain, SOB, palpitations. DM managed by Dr. Wan Madrigal's office. Last OV about 5 weeks ago and has f/u in May. Reports A1c of 8.2. Taking Glipizide without side effects or hypoglycemia. Stopped metformin due to diarrhea. Checking sugars daily with readings in the 120-210 when fasting. 209 this morning. Has not notified endo crinology of high readings. Still smoking about 1/4 pack per day. Not interested in quitting. Overdue for lung cancer screening. Has FOBT kit at home for colon cancer screening. Will complete and bring this in. Past medical history, appointments, medications, allergies reviewed. Previous Medical History PAST MEDICAL HISTORY Diagnosis Date Cataracts, bilateral s/p surgery in 2021 at [facility] Coronary artery calcification 11/[address] chest Diabetic neuropathy (HCC) Gas gangrene of lower extremity ([facility]) Goiter, unspecified 09/29/2007 Known medical problems rt BKA PAD (peripheral artery disease) ([facility]) S/P BKA (below knee amputation) ([facility]) 05/31/2022 right Tobacco use disorder Type II or unspecified type diabetes mellitus without mention of complication, uncontrolled Endo: Dr. Madrigal Previous Surgical History PAST SURGICAL HISTORY Procedure Laterality Date APPENDECTOMY HX 80s CATARACT EXTRACTION HX Bilateral 04/2022 EGD W/O BRSH SPEC VARICIES INJ 2018 with esophageal dilation LEG AMPUTATION HX Right 06/03/2022 BKA PAST SURGICAL HISTORY OF Lt thumb straightened Family History FAMILY HISTORY Problem Relation Age of Onset Stroke Mother Ischemic Heart Disease Mother Diabetes Mother Hypertension Mother Stroke Father Ischemic Heart Disease Father Hypertension Father Diabetes Father Kidney failure Sister Ischemic Heart Disease Brother Massive AR at age 38 Breast Cancer Paternal Grandmother Patient Allergies ALLERGIES No Known Allergies Current Medications Current Outpatient Medications on File Prior to Visit Medication Sig ferrous sulfate 325 mg (65 mg iron) tablet Take 1 tablet by mouth once daily. calcium carbonate (CALTRATE) 600 mg calcium (1,500 mg) tab Take 1,200 mg by mouth once daily. aspirin, enteric coated (ASPIRIN, ENTERIC COATED) 81 mg EC tablet Take 81 mg by mouth once daily. albuterol HFA (PROVENTIL HFA, VENTOLIN HFA) 90 mcg/actuation inhaler Inhale 2 Puffs as instructed every 4 hours as needed for wheezing/shortness of breath. glipiZIDE (GLUCOTROL) 5 mg tablet Take 5 mg by mouth two times a day before meals. blood sugar diagnostic(TRUETRACK TEST STRIPS) Test blood sugars twice daily. blood-glucose meter(TRUETRACK BLOOD GLUCOSE SYSTEM KIT) Test glucose as directed blood-glucose control, low(TRUETRACK GLUCOSE SOLN) Test controls as needed LANCETS Test blood sugars once daily, 250.00, non insulin dep atorvastatin (LIPITOR) 40 mg tablet Take 1 tablet by mouth daily at bedtime. For cholesterol. lisinopril (ZESTRIL) 5 mg tablet Take 1 tablet by mouth once daily. Cholecalciferol, Vitamin D3, (VITAMIN D) 25 mcg (1,000 unit) cap Take 2 capsules by mouth once daily. Taking 2,000 units daily No current facility-administered medications on file prior to visit. Social History Social History Tobacco Use Smoking status: Every Day Current packs/day: 0.50 Average packs/day: 0.5 packs/day for 45.2 years (22.6 ttl pk-yrs) Types: Cigarettes Start date: 03/18/1979 Smokeless tobacco: Never Vaping Use Vaping status: Never Used Substance Use Topics Alcohol use: No Drug use: No Review of Symptoms REVIEW OF SYSTEMS GENERAL: No weight loss, malaise or fevers RESPIRATORY: Negative for cough, hemoptysis, wheezing, COPD, dyspnea or shortness of breath CARDIOVASCULAR: Negative for chest pain, leg swelling, hypertension, CHF or palpitations GI: No nausea, vomiting, or diarrhea SKIN: Negative for lesions, rash, and itching EXAM: BP 116/64 Pulse 102 Resp 16 Wt 43.5 kg (95 lb 12.8 oz) LMP 09/16/2007 SpO2 99% BMI 17.81 kg/m General Appearance: Well appearing, alert, in no acute distress, well-hydrated, well nourished.. Skin: Skin color, texture, turgor normal, no suspicious rashes or lesions. Lungs: Lungs clear to auscultation. No wheezing, rhonchi, rales.. Heart: RRR without murmur, gallop, or rubs. No ectopy. Abdomen: Normal abdominal exam, Abdomen soft, non-tender. Bowel sounds normal. No masses, organomegaly. Extremities: Right BK prosthesis in place. On left, No deformities, edema, skin discoloration, clubbing or cyanosis. Good capillary refill. . Health Maintenance List Hepatitis C Screening Never done HIV Screening Never done Hepatitis B Vaccine(1 of 3 - 19+ 3-dose series) Never done Urine Albumin:Creatinine Ratio due on 12/04/2009 Dilated Retinal Exam due on 04/02/2010 Colorectal Cancer Screening Never done Shingrix Vaccine(1 of 2) Never done HbA1C due on 08/31/2022 Influenza Vaccine(1) due on 11/17/2023 Covid-19 Vaccine(2023- season) Never done Lung Cancer Screening due on 12/07/2023 LDL Cholesterol due on 02/02/2024 Diabetic Foot Exam due on 02/02/2024 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 Chronic Disease Visit due on 11/04/2024 Mammogram Screening due on 12/11/2024 BP Controlled (<130/80) due on 12/11/2024 Cervical Cancer Screening due on 12/11/2027 DTaP,Tdap,Td Vaccine(2 - Td or Tdap) due on 02/01/2033 Pneumococcal Vaccine: 50+ Completed Data reviewed Latest Ref Rng 11/05/2023 11/08/2023 11/15/2023 WBC 3.70 - 11.00 k/uL 12.85 (H) 10.73 RBC 3.90 - 5.20 m/uL 3.68 (L) 3.51 (L) Hemoglobin 11.5 - 15.5 g/dL 11.4 (L) 11.0 (L) Hematocrit 36.0 - 46.0 % 33.6 (L) 31.3 (L) MCV 80.0 - 100.0 fL 91.3 89.2 MCH 26.0 - 34.0 pg 31.0 31.3 MCHC 30.5 - 36.0 g/dL 33.9 35.1 RDW-CV 11.5 - 15.0 % 12.4 12.0 Platelet Count 150 - 400 k/uL 281 264 MPV 9.0 - 12.7 fL 11.3 11.5 Neut% % 72.0 Abs Neut (ANC) 1.45 - 7.50 k/uL 7.72 (H) Lymph% % 18.5 Abs Lymph 1.00 - 4.00 k/uL 1.98 Andrew% % 7.5 Abs Andrew <0.87 k/uL 0.81 Eosin% % 0.8 Abs Eosin <0.46 k/uL 0.09 Baso% % 0.8 Abs Baso <0.11 k/uL 0.09 Immature Gran % % 0.4 IMMATURE GRANS (ABS) <0.10 k/uL 0.04 NRBC /100 WBC 0.0 Absolute nRBC <0.01 k/uL <0.01 <0.01 DTYPE Auto Glucose 74 - 99 mg/dL 215 (H) BUN 7 - 21 mg/dL 9 Creatinine 0.58 - 0.96 mg/dL 0.84 Sodium 136 - 144 mmol/L 138 Potassium 3.7 - 5.1 mmol/L 3.1 (L) 3.2 (L) 4.1 Chloride 98 - 107 mmol/L 97 (L) CO2 22 - 30 mmol/L 29 Anion Gap 8 - 15 mmol/L 12 Calcium 8.5 - 10.2 mg/dL 9.5 eGFR >=60 mL/min/1.73m 81 Legend: (H) High (L) Low ASSESSMENT/PLAN: 1. Primary hypertension - ICD9: 401.9, ICD10: I10 (primary diagnosis) - Controlled - Continue current medications - Recommend home blood pressure monitoring, to bring results to next visit - Encouraged sodium restriction, DASH or Mediterranean diet - Recommend regular aerobic exercise 2. Hyperlipidemia, mixed - ICD9: 272.2, ICD10: E78.2 - Control undetermined, due for labs - Continue current medications - Counseled on healthy diet and regular exercise - COMPLETE BLOOD COUNT AND DIFFERENTIAL - COMPREHENSIVE METABOLIC PANEL - LIPID PANEL, NONFASTING 3. DM type 2 with diabetic peripheral neuropathy (HCC) - ICD9: 250.60, 357.2, ICD10: E11.42 Managed by endocrinology. F/u with recommendations. Discussed low carb diet and exercise as tolerated. 4. Status post below-knee amputation of right lower extremity (HCC) - ICD9: V49.75, ICD10: Z89.511 Doing well with prosthesis. Will monitor at home for new wounds. Red flags for re-assessment reviewed with patient in detail. 5. Normocytic anemia - ICD9: 285.9, ICD10: D64.9 Recheck CBC. Will call with results. 6. Coronary artery calcification - ICD9: 414.00, ICD10: I25.10 Asymptomatic. Recommended smoking cessation. Continue ASA and statin. F/u with cardiology as scheduled. 7. Tobacco use disorder - ICD9: 305.1, ICD10: F17.200 - Cessation encouraged. - Physiologic and physical aspects of tobacco addiction as well as strategies for quitting were discussed. - Counseling was given focusing on the harmful effects of this addiction especially given the patient's medical condition(s) which will be worsened because of the chemicals in tobacco. 8. Encounter for screening for lung cancer - ICD9: V76.0, ICD10: Z12.2 - CONSULT LUNG CAN[facility]ER SCREENING [facility]IN[facility] Erica Herman MD documented in this encounter[facility] Telephone encounter Note * Telephone Encounter - Emelyn Cee LPN - 05/06/2024 9:32 AM EST Patient notified of results and provider's instructions. Patient verbalizes understanding. Emelyn Cee LPN [facility]02-19-2025 Miscellaneous Notes* Telephone Encounter - Emelyn Cee LPN - 05/06/2024 9:32 AM EST Patient notified of results and provider's instructions. Patient verbalizes understanding. Emelyn Cee LPN documented [facility] [place] NoteHNO ID: [id number] Author: EMELYN CEE LPN Service: ? Author Type: LICENSED NURSE Type: Progress Notes Filed: 04/16/2024 11:34 Note Text: Patient was provided with 2 toe caps for left 4th toe. [facility] History of Present illness Narrative* Emelyn Cee LPN - 04/16/2024 11:20 AM EST Patient was provided with 2 toe caps for left 4th toe. Emelyn Cee LPN * Kedar Long - 04/16/2024 11:03 AM EST FOLLOW UP PODIATRIC OFFICE VISIT Chief Complaint: This 58 year old who presents for follow up:ulceration of left 4th toe Patient presents to clinic for follow-up left 4th toe ulceration Is using toe cap on the 5th toe The gel interspace cap tends to fall out She feels the wound of left 4th toe is healing. PAIN EVALUATION No data found in the last 1 encounters. Hemoglobin A1C Date Value Ref Range Status 05/31/2022 8.5 (H) 4.3 - 5.6 % Final Comment: [place] [employer] guidelines indicate that patients with HgbA1c in the range 5.7-6.4% are at increased risk for development of diabetes, and intervention by lifestyle modification may be beneficial. HgbA1c greater or equal to 6.5% is considered diagnostic of diabetes. PCP: Erica Herman MD PAST MEDICAL HISTORY Diagnosis Date Cataracts, bilateral s/p surgery in 2021 at [facility] Coronary artery calcification 11/[address] chest Diabetic neuropathy (HCC) Gas gangrene of lower extremity ([facility]) Goiter, unspecified 09/29/2007 Known medical problems rt BKA PAD (peripheral artery disease) ([facility]) S/P BKA (below knee amputation) ([facility]) 05/31/2022 right Tobacco use disorder Type II or unspecified type diabetes mellitus without mention of complication, uncontrolled Endo: Dr. Madrigal Current Outpatient Medications Medication Sig ferrous sulfate 325 mg (65 mg iron) tablet Take 1 tablet by mouth once daily. calcium carbonate (CALTRATE) 600 mg calcium (1,500 mg) tab Take 1,200 mg by mouth once daily. atorvastatin (LIPITOR) 40 mg tablet Take 1 tablet by mouth daily at bedtime. For cholesterol. lisinopril (ZESTRIL) 5 mg tablet Take 1 tablet by mouth once daily. aspirin, enteric coated (ASPIRIN, ENTERIC COATED) 81 mg EC tablet Take 81 mg by mouth once daily. albuterol HFA (PROVENTIL HFA, VENTOLIN HFA) 90 mcg/actuation inhaler Inhale 2 Puffs as instructed every 4 hours as needed for wheezing/shortness of breath. Cholecalciferol, Vitamin D3, (VITAMIN D) 25 mcg (1,000 unit) cap Take 2 capsules by mouth once daily. Taking 2,000 units daily glipiZIDE (GLUCOTROL) 5 mg tablet Take 5 mg by mouth two times a day before meals. blood sugar diagnostic(TRUETRACK TEST STRIPS) Test blood sugars twice daily. blood-glucose meter(TRUETRACK BLOOD GLUCOSE SYSTEM KIT) Test glucose as directed blood-glucose control, low(TRUETRACK GLUCOSE SOLN) Test controls as needed LANCETS Test blood sugars once daily, 250.00, non insulin dep No current facility-administered medications for this visit. ALLERGIES No Known Allergies PAST SURGICAL HISTORY Procedure Laterality Date APPENDECTOMY HX 80s CATARACT EXTRACTION HX Bilateral 04/2022 EGD W/O BRSH SPEC VARICIES INJ 2019 with esophageal dilation LEG AMPUTATION HX Right 06/03/2022 BKA PAST SURGICAL HISTORY OF Lt thumb straightened Physical Exam: OBJECTIVE: Constitutional: Pt is a well developed 58 year old female who is alert, oriented, cooperative and in no apparent distress. Eyes: Following during examination. No redness or drainage. Respiratory: RR normal and nonlabored. Even breathing. No evidence of distress. Psychology: Patient is engaged during conversation. Normal affect and mood. Does not appear depressed or anxious. NVSI unchanged from previous visit. 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 It is now healed I had long discussion with patient regarding the cause of this ulceration or callus. She has hammertoe of left 5th toe and any rubbing may lead to callus. Options discussed include use of gel paddingor lambs wool and periodic debridement of callus vs some form of surgery. Surgical options discussed today include derotational arthroplasty of left 5th toe, arthroplasty of left 4th toe or even amputation of left 5th toe. At this time, she is willing to continue with conservative care. She is to monitor her left foot closely as she is diabetic with right bka. Any issues, she is to contact the office immediately I will see her back in 9 weeks for pallitative foot care. She is to return earlier if symptoms develop Kedar Long DPM * Emelyn Cee LPN - 04/16/2024 10:58 AM EST AMB ROOMING INTAKE FLOWSHEET DATA Patient presents with: Left 4th Toe - Established Patient, Follow Up, Ulcer Patient states toe spacer did not stay in place. Patient has been using toe cap Emelyn Cee LPN [facility] Instructions* Patient Instructions* Kedar Long - 04/16/2024 11:15 AM EST Your wound is now healed Continue with toe spacer and daily foot inspection If you have any issues, please contact me immediately documented in this [facility]Select [facility]25 NoteHNO ID: [id number] Author: KEDAR LONG, ? Service: ? Author Type: Physician Type: Progress Notes Filed: 04/16/2024 11:34 Note Text: FOLLOW UP PODIATRIC OFFICE VISIT Chief Complaint: This 58 year old who presents for follow up:ulceration of left 4th toe Patient presents to clinic for follow-up left 4th toe ulceration Is using toe cap on the 5th toe The gel interspace cap tends to fall out She feels the wound of left 4th toe is healing. PAIN EVALUATION No data found in the last 1 encounters. Hemoglobin A1C Date Value Ref Range Status 05/31/2022 8.5 (H) 4.3 - 5.6 % Final Comment: [place] [employer] guidelines indicate that patients with HgbA1c in the range 5.7-6.4% are at increased risk for development of diabetes, and intervention by lifestyle modification may be beneficial. HgbA1c greater or equal to 6.5% is considered diagnostic of diabetes. PCP: Erica Herman MD PAST MEDICAL HISTORY Diagnosis Date Cataracts, bilateral s/p surgery in 2021 at [facility] Coronary artery calcification 11/[address] chest Diabetic neuropathy (HCC) Gas gangrene of lower extremity (HCC) Goiter, unspecified 09/29/2007 Known medical problems rt BKA PAD (peripheral artery disease) ([facility]) S/P BKA (below knee amputation) ([facility]) 05/31/2022 right Tobacco use disorder Type II or unspecified type diabetes mellitus without mention of complication, uncontrolled Endo: Dr. Madrigal Current Outpatient Medications Medication Sig ferrous sulfate 325 mg (65 mg iron) tablet Take 1 tablet by mouth once daily. calcium carbonate (CALTRATE) 600 mg calcium (1,500 mg) tab Take 1,200 mg by mouth once daily. atorvastatin (LIPITOR) 40 mg tablet Take 1 tablet by mouth daily at bedtime. For cholesterol. lisinopril (ZESTRIL) 5 mg tablet Take 1 tablet by mouth once daily. aspirin, enteric coated (ASPIRIN, ENTERIC COATED) 81 mg EC tablet Take 81 mg by mouth once daily. albuterol HFA (PROVENTIL HFA, VENTOLIN HFA) 90 mcg/actuation inhaler Inhale 2 Puffs as instructed every 4 hours as needed for wheezing/shortness of breath. Cholecalciferol, Vitamin D3, (VITAMIN D) 25 mcg (1,000 unit) cap Take 2 capsules by mouth once daily. Taking 2,000 units daily glipiZIDE (GLUCOTROL) 5 mg tablet Take 5 mg by mouth two times a day before meals. blood sugar diagnostic(TRUETRACK TEST STRIPS) Test blood sugars twice daily. blood-glucose meter(Element ID BLOOD GLUCOSE SYSTEM KIT) Test glucose as directed blood-glucose control, low(TRUETRACK GLUCOSE SOLN) Test controls as needed LANCETS Test blood sugars once daily, 250.00, non insulin dep No current facility-administered medications for this visit. ALLERGIES No Known Allergies PAST SURGICAL HISTORY Procedure Laterality Date APPENDECTOMY HX 80s CATARACT EXTRACTION HX Bilateral 04/2022 EGD W/O BRSH SPEC VARICIES INJ 2019 with esophageal dilation LEG AMPUTATION HX Right 06/03/2022 BKA PAST SURGICAL HISTORY OF Lt thumb straightened Physical Exam: OBJECTIVE: Constitutional: Pt is a well developed 58 year old female who is alert, oriented, cooperative and in no apparent distress. Eyes: Following during examination. No redness or drainage. Respiratory: RR normal and nonlabored. Even breathing. No evidence of distress. Psychology: Patient is engaged during conversation. Normal affect and mood. Does not appear depressed or anxious. NVSI unchanged from previous visit. 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 It is now healed I had long discussion with patient regarding the cause of this ulceration or callus. She has hammertoe of left 5th toe and any rubbing may lead to callus. Options discussed include use of gel padding or lambs wool and periodic debridement of callus vs some form of surgery. Surgical options discussed today include derotational arthroplasty of left 5th toe, arthroplasty of left 4th toe or even amputation of left 5th toe. At this time, she is willing to continue with conservative care. She is to monitor her left foot closely as she is diabetic with right bka. Any issues, she is to contact the office immediately I will see her back in 9 weeks for pallitative foot care. She is to return earlier if symptoms develop Kedar Long [facility]01-30-2025 NoteHNO ID: [id number] Author: EMELYN CEE LPN Service: ? Author Type: LICENSED NURSE Type: Progress Notes Filed: 04/16/2024 11:34 Note Text: AMB ROOMING INTAKE FLOWSHEET DATA Patient presents with: Left 4th Toe - Established Patient, Follow Up, Ulcer Patient states toe spacer did not stay in place. Patient has been using toe cap [facility] History of Present illness Narrative* Deb Morales RT(R) - 04/02/2024 11:30 AM EST Radiology Service Progress Note PATIENT NAME: Sanjuanita Jerry DATE OF SERVICE: April 02, 2024 TIME: 3:53 PM PATIENT IDENTITY VERIFICATION COMPLETED USING TWO (2) IDENTIFIERS: Name and Date of confirmedby patient verbally. FALL SCREENING: Has the patient had 2 falls in the last year or 1 fall with injury or currently using an Ambulatory Assistive Device (Walker, Cane, Wheelchair, Crutches, etc.)? Yes, Patient High Riskfor Falls What interventions were put in place to prevent falls during this visit? Increased Observations by Caregivers PATIENT GENDER DATA: Assigned female at . status: : No status:NO. PATIENT RELEVANT IMPLANT DATA REVIEWED: Not Applicable PATIENT PRESENTS WITH AN IMPLANTABLE OR ATTACHED FREIGHT CLAIM INVESTIGATOR: No RADIOLOGY DEPARTMENT: General X-ray: Exam(s) Completed: Lower Extremity X- Ray(s): Foot, Left PERIPHERAL IV DATA: Not applicable SIGNED BY: RT Juan(R) April 02, 2024 3:53 PM documented in this encounterSelect [facility]-16-2025 NoteHNO ID: [id number] Author: DEB MORALES RT(R) Service: ? Author Type: Technologist Type: Progress Notes Filed: 04/02/2024 15:54 Note Text: Radiology Service Progress Note PATIENT NAME: Sanjuanita Jerry DATE OF SERVICE: April 02, 2024 TIME: 3:53 PM PATIENT IDENTITY VERIFICATION COMPLETED USING TWO (2) IDENTIFIERS: Name and Date of confirmed by patient verbally. FALL SCREENING: Has the patient had 2 falls in the last year or 1 fall with injury or currently using an Ambulatory Assistive Device (Walker, Cane, Wheelchair, Crutches, etc.)? Yes, Patient High Risk for Falls What interventions were put in place to prevent falls during this visit? Increased Observations by Caregivers PATIENT GENDER DATA: Assigned female at . status: : No status: NO. PATIENT RELEVANT IMPLANT DATA REVIEWED: Not Applicable PATIENT PRESENTS WITH AN IMPLANTABLE OR ATTACHED FREIGHT CLAIM INVESTIGATOR: No RADIOLOGY DEPARTMENT: General X-ray: Exam(s) Completed: Lower Extremity X-Ray(s): Foot, Left PERIPHERAL IV DATA: Not applicable SIGNED BY: RT Juan(R) April 02, 2024 3:53 [facility]01-16-2025 NoteHNO ID: [id number] Author: KEDAR LONG, ? Service: ? Author Type: Physician Type: Progress Notes Filed: 04/02/2024 12:21 Note Text: Last saw pcp: 11/05/23 Subjective: Patient presents to clinic c/o painful toenails. They state that the nails are especially painful with shoe gear and pressure. Patient admits to being diabetic. Does often develop callus. Uses lambs wool between toes and files the callus with pet egg. No other pedal complaints at this time. Patient states no change in medications or medical history since last visit. Objective: Patient presents to clinic ambulating in sneakers Vasc: DP and PT pulses are faintly palpable left. CFT is less than 5 seconds left. Skin temperature is warm to cool proximal to distal left. There is no edema or varicosities noted. Neuro: Protective sensation is decreased to the foot and toes when tested with the 5.07 left. Vibratory sensation is absent at the hallux IPJ left. Derm: Nails 1-5 left are discolored-yellow, thick, crumbly, dystrophic and with subungal debris. Skin is thin, dry and hair growth is absent bilateral. There are callus to left hallux, left 1st metatarsal, left 5th metatarsal, lateral aspect of left 4th toe and medial aspect of left 5th toe. No ulcerations, scars, verruca or other lesions noted. Ortho: Muscle strength is 5/5 for all pedal groups tested. 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 Right bka Assessment: (E11.42) Diabetic polyneuropathy associated with type 2 diabetes mellitus (HCC) (primary encounter diagnosis) (B35.1) Onychomycosis (L84) Callus of foot (Z89.511) History of below-knee amputation of right lower extremity (HCC (M20.42) Hammertoe of left foot (R09.89) Diminished pulses in lower extremity Plan: Patient was seen and evaluated. Nails 1-5 left were debrided in length and thickness. Q7 modifier. Patient was instructed on the continued importance of diabetic foot care along with proper diet and keeping their blood sugar under control to prevent complications. Stressed the importance of avoiding barefoot walking, wearing good shoes and inspection of feet. Callus of left hallux, left 1st metatarsal, left 5th metatarsal, left 4th toe and left 5th toe was reduced with 15 blade and dremmel. Patient does have hammertoe of left 5th toe that rubs on 4th toe and this places her at risk of rubbing against 4th toe. This can lead to wounds. It is important that she monitor her feet daily. It is important that she use toe spacer to avoid rubbing. Other options discussed include attempting flexor tenotomy vs derotational arthroplasty vs amputation of 5th toe. Will check pvr to assure ability to heal any of these options. Discussed superficial pre-ulcerative lesion of left 4th toe. Will protect with lambs wool or toe spacer. Will have patient follow-up in 2 weeks. Call if any issues arise. Xray ordered Pvr ordered Kedar Long [facility]01-16-2025 History of Present illness Narrative* Kedar Long - 04/02/2024 10:49 AM EST Last saw pcp: 11/05/23 Subjective: Patient presents to clinic c/o painful toenails. They state that the nails are especially painful with shoe gear and pressure. Patient admits to being diabetic. Does often develop callus.Uses lambs wool between toes and files the callus with pet egg. No other pedal complaints at this time. Patient states no change in medications or medical history since last visit. Objective: Patient presents to clinic ambulating in [facility] Vasc: DP and PT pulses are faintly palpable left. CFT is less than 5 seconds left. Skin temperatureis warm to cool proximal to distal left. There is no edema or varicosities noted. Neuro: Protective sensation is decreased to the foot and toes when tested with the 5.07 left. Vibratory sensation is absent at the hallux IPJ left. Derm: Nails 1-5 left are discolored-yellow, thick, crumbly, dystrophic and with subungal debris. Skin is thin, dry and hair growth is absent bilateral. There are callus to left hallux, left 1st metatarsal, left 5th metatarsal, lateral aspect of left 4th toe and medial aspect of left 5th toe. No ulcerations, scars, verruca or other lesions noted. Ortho: Muscle strength is 5/5 for all pedal groups tested. 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 Right bka Assessment: (E11.42) Diabetic polyneuropathy associated with type 2 diabetes mellitus (HCC) (primary encounter diagnosis) (B35.1) Onychomycosis (L84) Callus of foot (Z89.511) History of below-knee amputation of right lower extremity (HCC (M20.42) Hammertoe of left foot (R09.89) Diminished pulses in lower extremity Plan: Patient was seen and evaluated. Nails 1-5 left were debrided in length and thickness. Q7 modifier. Patient was instructed on the continued importance of diabetic foot care along with proper diet andkeeping their blood sugar under control to prevent complications. Stressed the importance of avoiding barefoot walking, wearing good shoes and inspection of feet. Callus of left hallux, left 1st metatarsal, left 5th metatarsal, left 4th toe and left 5th toe was reduced with 15 blade and dremmel. Patient does have hammertoe of left 5th toe that rubs on 4th toe and this places her at risk of rubbing against 4th toe. This can lead to wounds. It is important that she monitor her feet daily. It is important that she use toe spacer to avoid rubbing. Other options discussed include attempting flexor tenotomy vs derotational arthroplasty vs amputation of 5th toe. Will check pvr to assure abilityto heal any of these options. Discussed superficial pre-ulcerative lesion of left 4th toe. Will protect with lambs wool or toe spacer. Will have patient follow-up in 2 weeks. Call if any issues arise. Xray ordered Pvr ordered Kedar Long DPM * Emelyn Cee LPN - 04/02/2024 10:31 AM EST AMB ROOMING INTAKE FLOWSHEET DATA Patient presents with: Right Foot - Follow Up Emelyn Cee LPN documented in this encounterSelect [facility] Instructions* Patient Instructions* Kedar Long - 04/02/2024 10:49 AM EST Diabetes Foot Care Instructions When you have diabetes, proper foot care is very important. Poor foot care may lead to amputation of a foot or leg. As a person with diabetes, you are more vulnerable to foot problems, because diabetes can damage your nerves and reduce blood flow to your feet. Here are some diabetes foot care tips to follow: Wash and Dry Your Feet Daily Use mild soaps Use warm water Pat your skin dry; do not rub. Thoroughly dry your feet. After washing, use lotion on your feet to prevent cracking. Do not put lotion between your toes. Examine Your Feet Each Day Check the tops and bottoms of your feet. Have someone else look at your feet if you cannot see them. Check for dry, cracked skin. Look for blisters, cuts, scratches, or other sores. Check for redness, increased warmth, or tenderness when touching any area of your feet. Check for ingrown toenails, corns, and calluses. If you get a blister or sore from your shoes, do not "pop" it. Apply a bandage and wear a differentpair of shoes. Take Care of Your Toenails Cut toenails after bathing, when they are soft. Cut toenails straight across and smooth with a nail file. Avoid cutting into the corners of toes. Do not cut cuticles. If you have neuropathy (or decreased sensation in your feet) a neonatal intensive care nurse should always cut your toenails. Be Careful When Exercising Walk and exercise in comfortable shoes. Do not exercise when you have open sores on your feet. Protect Your Feet With Shoes and Socks Never go barefoot. Always protect your feet by wearing shoes or hard-soled slippers or footwear. Avoid shoes with high heels and pointed toes. Avoid shoes that expose your toes or heels (such as open-toed shoes or sandals). These types of shoes increase your risk for injury and potential infections. Try on new footwear with the type of socks you usually wear. Do not wear new shoes for more than an hour at a time. Change your socks daily. Look and feel inside your shoes before putting them on to make sure there are no foreign objects orrough areas. Avoid tight socks. Wear natural-fiber socks (cotton, wool, or a cotton-wool blend). Wear special shoes if your health care provider recommends them. Wear shoes/boots that will protect your feet from various weather conditions (cold, moisture, etc.). Make sure your shoes fit properly. If you have neuropathy (nerve damage), you may not notice that your shoes are too tight. Perform the "footwear test" described below. Footwear Test Use this simple test to see if your shoes fit correctly: Stand on a piece of paper. (Make sure you are standing and not sitting, because your foot changes shape when you stand.) Trace the outline of your foot. Trace the outline of your shoe. Compare the tracings: Is the shoe too narrow? Is your foot crammed into the shoe? The shoe should be at least 1/2 inch longer than your longest toe and as wide as your foot. Proper Shoe Choices The following types of shoes are best for people with diabetes Closed toes and heels Leather uppers without a seam inside At least 1/2 inch extra space at the end of your longest toe Inside of shoe should be soft with no rough areas Outer sole should be made of stiff material Shoes should be at least as wide as your feet Tips for Foot Care in Diabetes Don't wait to treat a minor foot problem if you have diabetes. Follow your health care provider's guidelines and first aid guidelines. Report foot injuries and infections to your health care provider immediately. Check water temperature with your elbow, not your foot. Do not use a heating pad on your feet. Do not cross your legs. Do not self-treat your corns, calluses, or other foot problems. Go to your health care provider or neonatal intensive care nurse to treat these conditions. Can use toe cap during the day. Can remove at night. Place on the 5th toe and this will to avoid rubbing on the 4th toe. If you notice increased whitening between the toes (maceration/moisture), stopusing and continue with lambs wool documented in this encounterSelect [facility]25 NoteHNO ID: [id number] Author: EMELYN CEE LPN Service: ? Author Type: LICENSED NURSE Type: Progress Notes Filed: 04/02/2024 12:21 Note Text: AMB ROOMING INTAKE FLOWSHEET DATA Patient presents with: Right Foot - [facility] NoteHNO ID: [id number] Author: KEDAR LONG, ? Service: ? Author Type: Physician Type: Progress Notes Filed: 12/31/2023 13:19 Note Text: FOLLOW UP PODIATRIC OFFICE VISIT Chief Complaint: This 58 year old who presents for follow up:left foot ulceration. Patient presents to clinic for follow-up left foot ulceration Is using surgical shoe Feels the wound is completely healed Continues to smoke PAIN EVALUATION No data found in the last 1 encounters. Hemoglobin A1C Date Value Ref Range Status 05/31/2022 8.5 (H) 4.3 - 5.6 % Final Comment: [place] [employer] guidelines indicate that patients with HgbA1c in the range 5.7-6.4% are at increased risk for development of diabetes, and intervention by lifestyle modification may be beneficial. HgbA1c greater or equal to 6.5% is considered diagnostic of diabetes. PCP: Erica Herman MD PAST MEDICAL HISTORY Diagnosis Date Cataracts, bilateral s/p surgery in 2021 at [facility] Coronary artery calcification 11/[address] chest Diabetic neuropathy (HCC) Gas gangrene of lower extremity (HCC) Goiter, unspecified 09/29/2007 Known medical problems rt BKA PAD (peripheral artery disease) ([facility]) S/P BKA (below knee amputation) ([facility]) 05/31/2022 right Tobacco use disorder Type II or unspecified type diabetes mellitus without mention of complication, uncontrolled Endo: Dr. Madrigal Current Outpatient Medications Medication Sig ferrous sulfate 325 mg (65 mg iron) tablet Take 1 tablet by mouth once daily. calcium carbonate (CALTRATE) 600 mg calcium (1,500 mg) tab Take 1,200 mg by mouth once daily. atorvastatin (LIPITOR) 40 mg tablet Take 1 tablet by mouth daily at bedtime. For cholesterol. lisinopril (ZESTRIL) 5 mg tablet Take 1 tablet by mouth once daily. aspirin, enteric coated (ASPIRIN, ENTERIC COATED) 81 mg EC tablet Take 81 mg by mouth once daily. albuterol HFA (PROVENTIL HFA, VENTOLIN HFA) 90 mcg/actuation inhaler Inhale 2 Puffs as instructed every 4 hours as needed for wheezing/shortness of breath. urea (CARMOL) 40 % Apply to affected area once daily. glipiZIDE (GLUCOTROL) 5 mg tablet Take 5 mg by mouth two times a day before meals. blood sugar diagnostic(TRUETRACK TEST STRIPS) Test blood sugars twice daily. blood-glucose meter(TRUETRAEmailage BLOOD GLUCOSE SYSTEM KIT) Test glucose as directed blood-glucose control, low(TRUETRACK GLUCOSE SOLN) Test controls as needed LANCETS Test blood sugars once daily, 250.00, non insulin dep Cholecalciferol, Vitamin D3, (VITAMIN D) 25 mcg (1,000 unit) cap Take 2 capsules by mouth once daily. Taking 2,000 units daily No current facility-administered medications for this visit. ALLERGIES No Known Allergies PAST SURGICAL HISTORY Procedure Laterality Date APPENDECTOMY HX 80s CATARACT EXTRACTION HX Bilateral 04/2022 EGD W/O BRSH SPEC VARICIES INJ 2019 with esophageal dilation LEG AMPUTATION HX Right 06/03/2022 BKA PAST SURGICAL HISTORY OF Lt thumb straightened Physical Exam: OBJECTIVE: Constitutional: Pt is a well developed 58 year old female who is alert, oriented, cooperative and in no apparent distress. Eyes: Following during examination. No redness or drainage. Respiratory: RR normal and nonlabored. Even breathing. No evidence of distress. Psychology: Patient is engaged during conversation. Normal affect and mood. Does not appear depressed or anxious. NVSI unchanged from previous visit. Dermatological: All wounds of left foot are now healed. There is no signs of cellulitis There is small callus of left 1st and left 5th metatarsal Musculoskeletal/Orthopaedic: Patient has no pain to palpation of left foot ASSESSMENT: (L84) Callus of foot (primary encounter diagnosis) (E11.42) Diabetic polyneuropathy associated with type 2 diabetes mellitus (HCC) PLAN: Wounds are now healed to left foot Small amount of callus and this was reduced with dremmel to left 1st and left 5th metatarsal and left hallux Offered follow-up every 5-6 weeks for callus. She has elected to reduce callus herself with pummice stone. Can f/u every 3 months for nail care Recommend lambs wool between toes to prevent rubbing Smoking cessation was encouraged Diabetic education performed. Kedar Long, [facility]10-15-2024 History of Present illness Narrative* Natanaellaura Kedar - 12/31/2023 1:16 PM EDT FOLLOW UP PODIATRIC OFFICE VISIT Chief Complaint: This 58 year old who presents for follow up:left foot ulceration. Patient presents to clinic for follow-up left foot ulceration Is using surgical shoe Feels the wound is completely healed Continues to smoke PAIN EVALUATION No data found in the last 1 encounters. Hemoglobin A1C Date Value Ref Range Status 05/31/2022 8.5 (H) 4.3 - 5.6 % Final Comment: [place] [employer] guidelines indicate that patients with HgbA1c in the range 5.7-6.4% are at increased risk for development of diabetes, and intervention by lifestyle modification may be beneficial. HgbA1c greater or equal to 6.5% is considered diagnostic of diabetes. PCP: Erica Herman MD PAST MEDICAL HISTORY Diagnosis Date Cataracts, bilateral s/p surgery in 2021 at [facility] Coronary artery calcification 11/[address] chest Diabetic neuropathy (HCC) Gas gangrene of lower extremity ([facility]) Goiter, unspecified 09/29/2007 Known medical problems rt BKA PAD (peripheral artery disease) ([facility]) S/P BKA (below knee amputation) ([facility]) 05/31/2022 right Tobacco use disorder Type II or unspecified type diabetes mellitus without mention of complication, uncontrolled Endo: Dr. Madrigal Current Outpatient Medications Medication Sig ferrous sulfate 325 mg (65 mg iron) tablet Take 1 tablet by mouth once daily. calcium carbonate (CALTRATE) 600 mg calcium (1,500 mg) tab Take 1,200 mg by mouth once daily. atorvastatin (LIPITOR) 40 mg tablet Take 1 tablet by mouth daily at bedtime. For cholesterol. lisinopril (ZESTRIL) 5 mg tablet Take 1 tablet by mouth once daily. aspirin, enteric coated (ASPIRIN, ENTERIC COATED) 81 mg EC tablet Take 81 mg by mouth once daily. albuterol HFA (PROVENTIL HFA, VENTOLIN HFA) 90 mcg/actuation inhaler Inhale 2 Puffs as instructed every 4 hours as needed for wheezing/shortness of breath. urea (CARMOL) 40 % Apply to affected area once daily. glipiZIDE (GLUCOTROL) 5 mg tablet Take 5 mg by mouth two times a day before meals. blood sugar diagnostic(TRUETRACK TEST STRIPS) Test blood sugars twice daily. blood-glucose meter(TRUETappitCK BLOOD GLUCOSE SYSTEM KIT) Test glucose as directed blood-glucose control, low(TRUETRACK GLUCOSE SOLN) Test controls as needed LANCETS Test blood sugars once daily, 250.00, non insulin dep Cholecalciferol, Vitamin D3, (VITAMIN D) 25 mcg (1,000 unit) cap Take 2 capsules by mouth once daily. Taking 2,000 units daily No current facility-administered medications for this visit. ALLERGIES No Known Allergies PAST SURGICAL HISTORY Procedure Laterality Date APPENDECTOMY HX 80s CATARACT EXTRACTION HX Bilateral 04/2022 EGD W/O BRSH SPEC VARICIES INJ 2019 with esophageal dilation LEG AMPUTATION HX Right 06/03/2022 BKA PAST SURGICAL HISTORY OF Lt thumb straightened Physical Exam: OBJECTIVE: Constitutional: Pt is a well developed 58 year old female who is alert, oriented, cooperative and in no apparent distress. Eyes: Following during examination. No redness or drainage. Respiratory: RR normal and nonlabored. Even breathing. No evidence of distress. Psychology: Patient is engaged during conversation. Normal affect and mood. Does not appear depressed or anxious. NVSI unchanged from previous visit. Dermatological: All wounds of left foot are now healed. There is no signs of cellulitis There is small callus of left 1st and left 5th metatarsal Musculoskeletal/Orthopaedic: Patient has no pain to palpation of left foot ASSESSMENT: (L84) Callus of foot (primary encounter diagnosis) (E11.42) Diabetic polyneuropathy associated with type 2 diabetes mellitus (HCC) PLAN: Wounds are now healed to left foot Small amount of callus and this was reduced with dremmel to left 1st and left 5th metatarsal and left hallux Offered follow-up every 5-6 weeks for callus. She has elected to reduce callus herself with pummicestone. Can f/u every 3 months for nail care Recommend lambs wool between toes to prevent rubbing Smoking cessation was encouraged Diabetic education performed. Kedar Long DPM [facility] Note* Letter - Coordinator, Mammography - 12/14/2023 7:37 AM EDT December 16, 2023 PID: [id number] Sanjuanita Jerry [address] [place] [address] Dear Ms. Jerry, We are pleased to inform you that the results of your recent breast imaging exam on 12/12/2023 are normal. Breast tissue can be either dense or not dense. Dense tissue makes it harder to find breast cancer on a mammogram and also raises the risk of developing breast cancer. Your breast tissue is not dense. Talk to your healthcare provider about breast density, risks for breast cancer, and your individual situation. Early detection of cancer is very important. We also understand recommendations regarding breast cancer screening are controversial. Please discuss with your primary care provider which strategy is best for you and whether a mammogram is right for you. Your imaging studies and report will be kept on file at [facility] as part of your permanent medical record and are available for your continuing care. Thank you for allowing us to help in meeting your health care needs. Sincerely, Dr. Reeves Interpreting Radiologist [facility] (Normal over 40) [facility]09-28-2024 Miscellaneous Notes* Letter - Coordinator, Mammography - 12/14/2023 7:37 AM EDT December 16, 2023 PID: [id number] Sanjuanita Jerry [address] [place] [address] Dear Ms. Jerry, We are pleased to inform you that the results of your recent breast imaging exam on 12/12/2023 are normal. Breast tissue can be either dense or not dense. Dense tissue makes it harder to find breast cancer on a mammogram and also raises the risk of developing breast cancer. Your breast tissue is not dense. Talk to your healthcare provider about breast density, risks for breast cancer, and your individual situation. Early detection of cancer is very important. We also understand recommendations regarding breast cancer screening are controversial. Please discuss with your primary care provider which strategy is best for you and whether a mammogram is right for you. Your imaging studies and report will be kept on file at [facility] as part of your permanent medical record and are available for your continuing care. Thank you for allowing us to help in meeting your health care needs. Sincerely, Dr. Reeves Interpreting Radiologist [facility] (Normal over 40) documented in this encounterSelect [facility]-26-[facility]24 NoteHNO ID: [id number] Author: NEENA MINAYA APRN.AUTO WASH BUFFER Service: ? Author Type: Nurse Practitioner Type: Progress Notes Filed: 12/12/2023 14:20 Note Text: Amortization Clerk offered: Patient declinesCassie Keller is a 58 year old who presents for an annual gynecologic exam without complaints. Postmenopausal: Yes since 2010 HRT use: No. Last Pap: 12/14/2022 normal HPV: 12/11/2022 negative History of abnormal pap: No Last mammogram: 2023 today History of abnormal mammogram: No Sexually active: No OB History T2 L2 SAB0 IAB0 Ectopic0 Multiple0 Live Births0 French Tutor History LMP: 09/16/2007, Postmenopausal Age at Menarche: Age at First : Age at Menopause: French Tutor History Comments: Sexual Activity: Not Currently; No partner data on record Contraception: No contraception data on record PAST MEDICAL HISTORY Diagnosis Date Cataracts, bilateral s/p surgery in 2021 at [facility] Coronary artery calcification 11/[address] chest Diabetic neuropathy (HCC) Gas gangrene of lower extremity (HCC) Goiter, unspecified 09/29/2007 Known medical problems rt BKA PAD (peripheral artery disease) (HCC) S/P BKA (below knee amputation) ([facility]) 05/31/2022 right Tobacco use disorder Type II or unspecified type diabetes mellitus without mention of complication, uncontrolled Endo: Dr. Madrigal PAST SURGICAL HISTORY Procedure Laterality Date APPENDECTOMY HX 80s CATARACT EXTRACTION HX Bilateral 04/2022 EGD W/O BRSH SPEC VARICIES INJ 2018 with esophageal dilation LEG AMPUTATION HX Right 06/03/2022 BKA PAST SURGICAL HISTORY OF Lt thumb straightened FAMILY HISTORY Problem Relation Age of Onset Stroke Mother Ischemic Heart Disease Mother Diabetes Mother Hypertension Mother Stroke Father Ischemic Heart Disease Father Hypertension Father Diabetes Father Kidney failure Sister Ischemic Heart Disease Brother Massive AR at age 38 Breast Cancer Paternal Grandmother SOCIAL HISTORY Social History Tobacco Use Smoking status: Every Day Current packs/day: 0.50 Average packs/day: 0.5 packs/day for 44.7 years (22.4 ttl pk-yrs) Types: Cigarettes Start date: 03/18/1979 Smokeless tobacco: Never Vaping Use Vaping status: Never Used Substance Use Topics Alcohol use: No Drug use: No REVIEW OF SYSTEMS Abdomen: No abdominal pain, nausea, vomiting, diarrhea, or constipation. No bloating, early satiety, indigestion, or increased flatulence. Bladder: No dysuria, gross hematuria, urinary frequency, urinary urgency, or incontinence Breast: No breast lumps, nipple d/c, overlying skin changes, redness or skin retraction Allergies and current medication updated:Yes SENSITIVE EXAM: The sensitive examination was discussed with the Patient or Patient's Authorized Diesel Service Technician. As applicable, any other physician, advance practice provider, medical student, or other health professional student that will be observing or involved in the sensitive examination for educational or training purposes was discussed with the Patient or Authorized Diesel Service Technician. The Patient or Authorized Diesel Service Technician has agreed to proceed with the sensitive examination. (Sensitive examination includes inspection and/or palpation of the breasts, pelvis, prostate and anorectal regions). EXAM: BP 100/58 Ht 5' 1.496" (1.56m) Wt 99 lb (44.9kg) LMP 09/16/2007 BMI 18.41 kg/(m2). GENERAL: pleasant, female in no apparent distress HEENT: Normocephalic, atraumatic, mucus membranes moist, and no lesions NECK: Supple, full range of motion, no adenopathy, and thyroid normal DERMATOLOGY: Normal, without lesions, non-icteric, and non-hirsute BREAST: soft, non-tender, symmetric, no dominant mass, normal nipple-areolar complex, no lymphadenopathy, and no nipple discharge CHEST: Normal inspiratory effort ABDOMEN: soft, non-tender, and no masses PELVIC: external genitalia normal, normal Bartholin's glands, urethra, Hominy's glands, no vulvar lesions, no cervical lesions, good vaginal support, physiologic discharge present, normal appearing perineal body and perianal region BIMANUAL: uterus normal size, shape and consistency, no adnexal masses, and non-tender RECTOVAGINAL: deferred. NEURO: alert and oriented x3,exam grossly non-focal EXTREMITIES: normal ASSESSMENT/PLAN: 1) Health maintenance: Pap/HPV up to date. Mammogram ordered Mammogram up to date Nutrition, exercise and routine health maintenance exams reviewed. Calcium/Vitamin D supplementation information provided. 2) Follow up one year or sooner as needed Neena Minaya [facility]N.[facility] History of Present illness Narrative* Neena Minaya APRN.AUTO WASH BUFFER - 12/12/2023 1:49 PM EDT Amortization Clerk offered: Patient declinesCassie Keller is a 58 year old who presents for an annual gynecologic exam without complaints. Postmenopausal: Yes since 2010 HRT use: No. Last Pap: 12/14/2022 normal HPV: 12/11/2022 negative History of abnormal pap: No Last mammogram: 2023 today History of abnormal mammogram: No Sexually active: No OB History T2 L2 SAB0 IAB0 Ectopic0 Multiple0 Live Births0 French Tutor History LMP: 09/16/2007, Postmenopausal Age at Menarche: Age at First : Age at Menopause: French Tutor History Comments: Sexual Activity: Not Currently; No partner data on record Contraception: No contraception data on record PAST MEDICAL HISTORY Diagnosis Date Cataracts, bilateral s/p surgery in 2021 at [facility] Coronary artery calcification 11/[address] chest Diabetic neuropathy (HCC) Gas gangrene of lower extremity ([facility]) Goiter, unspecified 09/29/2007 Known medical problems rt BKA PAD (peripheral artery disease) ([facility]) S/P BKA (below knee amputation) ([facility]) 05/31/2022 right Tobacco use disorder Type II or unspecified type diabetes mellitus without mention of complication, uncontrolled Endo: Dr. Madrigal PAST SURGICAL HISTORY Procedure Laterality Date APPENDECTOMY HX 80s CATARACT EXTRACTION HX Bilateral 04/2022 EGD W/O BRSH SPEC VARICIES INJ 2018 with esophageal dilation LEG AMPUTATION HX Right 06/03/2022 BKA PAST SURGICAL HISTORY OF Lt thumb straightened FAMILY HISTORY Problem Relation Age of Onset Stroke Mother Ischemic Heart Disease Mother Diabetes Mother Hypertension Mother Stroke Father Ischemic Heart Disease Father Hypertension Father Diabetes Father Kidney failure Sister Ischemic Heart Disease Brother Massive AR at age 38 Breast Cancer Paternal Grandmother SOCIAL HISTORY Social History Tobacco Use Smoking status: Every Day Current packs/day: 0.50 Average packs/day: 0.5 packs/day for 44.7 years (22.4 ttl pk-yrs) Types: Cigarettes Start date: 03/18/1979 Smokeless tobacco: Never Vaping Use Vaping status: Never Used Substance Use Topics Alcohol use: No Drug use: No REVIEW OF SYSTEMS Abdomen: No abdominal pain, nausea, vomiting, diarrhea, or constipation. No bloating, early satiety, indigestion, or increased flatulence. Bladder: No dysuria, gross hematuria, urinary frequency, urinary urgency, or incontinence Breast: No breast lumps, nipple d/c, overlying skin changes, redness or skin retraction Allergies and current medication updated:Yes SENSITIVE EXAM: The sensitive examination was discussed with the Patient or Patient's Authorized Diesel Service Technician. As applicable, any other physician, advance practice provider, medical student, or other health professional student that will be observing or involved in the sensitive examination for educational or training purposes was discussed with the Patient or Authorized Diesel Service Technician. The Patient or Authorized Diesel Service Technician has agreed to proceed with the sensitive examination. (Sensitive examination includes inspection and/or palpation of the breasts, pelvis, prostate and anorectal regions). EXAM: BP 100/58 Ht 5' 1.496" (1.56m) Wt 99 lb (44.9kg) LMP 09/16/2007 BMI 18.41 kg/(m^2). GENERAL: pleasant, female in no apparent distress HEENT: Normocephalic, atraumatic, mucus membranes moist, and no lesions NECK: Supple, full range of motion, no adenopathy, and thyroid normal DERMATOLOGY: Normal, without lesions, non-icteric, and non-hirsute BREAST: soft, non-tender, symmetric, no dominant mass, normal nipple-areolar complex, no lymphadenopathy, and no nipple discharge CHEST: Normal inspiratory effort ABDOMEN: soft, non-tender, and no masses PELVIC: external genitalia normal, normal Bartholin's glands, urethra, Hominy's glands, no vulvar lesions, no cervical lesions, good vaginal support, physiologic discharge present, normal appearing perineal body and perianal region BIMANUAL: uterus normal size, shape and consistency, no adnexal masses, and non-tender RECTOVAGINAL: deferred. NEURO: alert and oriented x3,exam grossly non-focal EXTREMITIES: normal ASSESSMENT/PLAN: 1) Health maintenance: Pap/HPV up to date. Mammogram ordered Mammogram up to date Nutrition, exercise and routine health maintenance exams reviewed. Calcium/Vitamin D supplementation information provided. 2) Follow up one year or sooner as needed Neena Minaya APRN.BARTOLO documented in this encounterSelect [facility]-26-[facility] History of Present illness Narrative* Amina Quarles Mammo Tech - 12/12/2023 1:30 PM EDT Radiology Service Progress Note PATIENT NAME: Sanjuanita Jerry DATE OF SERVICE: December 12, 2023 TIME: 1:42 PM PATIENT IDENTITY VERIFICATION COMPLETED USING TWO (2) IDENTIFIERS: Name and Date of confirmedby patient verbally. FALL SCREENING: Has the patient had 2 falls in the last year or 1 fall with injury or currently using an Ambulatory Assistive Device (Walker, Cane, Wheelchair, Crutches, etc.)? No PATIENT GENDER DATA: Female. status: : No status: NO. PATIENT RELEVANT IMPLANT DATA REVIEWED: Not Applicable PATIENT PRESENTS WITH AN IMPLANTABLE OR ATTACHED FREIGHT CLAIM INVESTIGATOR: No RADIOLOGY DEPARTMENT: Mammography PERIPHERAL IV DATA: Not applicable SIGNED BY: Blaire Warner December 12, 2023 1:42 PM documented in this encounterSelect [facility]-26-2024 NoteHNO ID: [id number] Author: AMINA QUARLES Mammo Tech Service: ? Author Type: Esl Instructional Assistant Type: Progress Notes Filed: 12/12/2023 13:42 Note Text: Radiology Service Progress Note PATIENT NAME: Sanjuanita Jerry DATE OF SERVICE: December 12, 2023 TIME: 1:42 PM PATIENT IDENTITY VERIFICATION COMPLETED USING TWO (2) IDENTIFIERS: Name and Date of confirmed by patient verbally. FALL SCREENING: Has the patient had 2 falls in the last year or 1 fall with injury or currently using an Ambulatory Assistive Device (Walker, Cane, Wheelchair, Crutches, etc.)? No PATIENT GENDER DATA: Female. status: : No status: NO. PATIENT RELEVANT IMPLANT DATA REVIEWED: Not Applicable PATIENT PRESENTS WITH AN IMPLANTABLE OR ATTACHED FREIGHT CLAIM INVESTIGATOR: No RADIOLOGY DEPARTMENT: Mammography PERIPHERAL IV DATA: Not applicable SIGNED BY: Blaire Warner December 12, 2023 1:42 [facility]09-24-2024 NoteHNO ID: [id number] Author: EMELYN CEE LPN Service: ? Author Type: LICENSED NURSE Type: Progress Notes Filed: 12/10/2023 13:28 Note Text: Per Dr. Long, Sanjuanita was provided with post op shoe and impax, size S, and instructed/educated in its application, wear, and care. All questions were answered, and patient was able to demonstrate competence with the necessary skills to utilize the above equipment. Per Dr. Long, Sanjuanita wounds was dressed Aquacel, non adherent and 4 in roll gauze. Patient also had iodine and lambs wool place between 4 and 5 th toe and instructed/educated in its application, wear, and care. All questions were answered, and patient was able to verbilize competence with the necessary skills to utilize the above equipment. [facility] History of Present illness Narrative* Emelyn Cee LPN - 12/10/2023 1:[address] Long, Sanjuanita was provided with post op shoe and impax, size S, and instructed/educated inits application, wear, and care. All questions were answered, and patient was able to demonstrate competence with the necessary skills to utilize the above equipment. Per Dr. Long, Sanjuanita wounds was dressed Aquacel, non adherent and 4 in roll gauze. Patient also had iodine and lambs wool place between 4 and 5 th toe and instructed/educated in its application, wear, and care. All questions were answered, and patient was able to verbilize competence with the necessary skills to utilize the above equipment. Emelyn Cee LPN * Kedar Long - 12/10/2023 11:13 AM EDT Last saw pcp: 11/05/23 Subjective: Patient presents to clinic c/o painful toenails. They state that the nails are especially painful with shoe gear and pressure. Patient states that nails 1-5 left are painful. Patient admits to being diabetic. Does report callus of left foot. No other pedal complaints at this time. Patient states no change in medications or medical history since last visit. Objective: Patient presents to clinic ambulating in sneakers Vasc: DP and PT pulses are palpable left. CFT is less than 5 seconds bilateral. Skin temperature iswarm to cool proximal to distal bilateral. There is no edema or varicosities noted. Neuro: Protective sensation is absent to the foot and toes when tested with the 5.07 SWM left. Vibratory sensation is absent at the hallux IPJ left. The hallux is downgoing left Derm: Nails 1-5 left are discolored-yellow, thick, crumbly, dystrophic and with subungal debris. Skin is dry and hair growth is absent bilateral. There are hyperkeratosis of left hallux, left 5th metatarsal and left 1st metatarsal. Superficial noninfected wound of left 4th and left 5th toe Ortho: hammertoes of lesser toes of left foot. Right bka Assessment: (L84) Callus of foot (primary encounter diagnosis) (B35.1) Onychomycosis (Z89.511) History of below-knee amputation of right lower extremity (HCC) (E08.621, L97.401) Diabetic ulcer of heel associated with diabetes mellitus due to underlying condition, limited to breakdown of skin, unspecified laterality (HCC) Ulcer of foot Plan: Patient was seen and evaluated. Nails 1-5 left were debrided in length and thickness. Q7 modifier. Callus reduced to elft 1st metatarsal, left hallux and left 5th metatarsal. Patient actually has superficial ulceration of left 5th metatarsal, noninfected. Measures about 9 mm x 7 mm. Will treat with aquacel, use of surgical shoe and offloading insert. Patient states she feels stable enough to usea surgical shoe. I will have her use a cane while walking. Keeping weight off the foot will help toheal this wound of 5th metatarsal Discussed superficial wound of left 4th and 5th toe. Recommend betadine and use of lambs wool to avoid rubbing between toes. Once superficial wound heals, can use gel toe cap or toe spacer to avoid rubbing Smoking cessation encouraged. Patient was instructed on the continued importance of diabetic foot care along with proper diet andkeeping their blood sugar under control to prevent complications. Patient to f/u in 2-3 weeks or sooner to evaluate wounds Kedar Long DPM * Gaye Zelaya MA - 12/10/2023 10:50 AM EDT Patient presents with: Left Foot - Follow Up Callus/toenail follow up AMB ROOMING INTAKE FLOWSHEET DATA Blood sugar this morning was 180. [facility] History of Present illness Narrative* Beatris Thomas RT(R) - 12/10/2023 12:10 PM EDT Radiology Service Progress Note PATIENT NAME: Sanjuanita Jerry DATE OF SERVICE: December 10, 2023 TIME: 12:24 PM PATIENT IDENTITY VERIFICATION COMPLETED USING TWO (2) IDENTIFIERS: Name and Date of confirmedby patient verbally. FALL SCREENING: Has the patient had 2 falls in the last year or 1 fall with injury or currently using an Ambulatory Assistive Device (Walker, Cane, Wheelchair, Crutches, etc.)? Yes, Patient High Riskfor Falls What interventions were put in place to prevent falls during this visit? Offered Assistance with Transfers/Clothing, Instructed Patient to Remain Seated (Not on Exam Table) Until Exam, and Increased Observations by Caregivers PATIENT GENDER DATA: Female. status: : No status: NO. PATIENT RELEVANT IMPLANT DATA REVIEWED: Yes PATIENT PRESENTS WITH AN IMPLANTABLE OR ATTACHED FREIGHT CLAIM INVESTIGATOR: No RADIOLOGY DEPARTMENT: General X-ray: Exam(s) Completed: Lower Extremity X- Ray(s): Foot, Left PERIPHERAL IV DATA: Not applicable SIGNED BY: VALENTINO Chu) December 10, 2023 12:24 PM documented in this encounterSelect [facility]24 NoteHNO ID: [id number] Author: BEATRIS THOMAS RT(R) Service: ? Author Type: Esl Instructional Assistant Type: Progress Notes Filed: 12/10/2023 12:34 Note Text: Radiology Service Progress Note PATIENT NAME: Sanjuanita Jerry DATE OF SERVICE: December 10, 2023 TIME: 12:24 PM PATIENT IDENTITY VERIFICATION COMPLETED USING TWO (2) IDENTIFIERS: Name and Date of confirmed by patient verbally. FALL SCREENING: Has the patient had 2 falls in the last year or 1 fall with injury or currently using an Ambulatory Assistive Device (Walker, Cane, Wheelchair, Crutches, etc.)? Yes, Patient High Risk for Falls What interventions were put in place to prevent falls during this visit? Offered Assistance with Transfers/Clothing, Instructed Patient to Remain Seated (Not on Exam Table) Until Exam, and Increased Observations by Caregivers PATIENT GENDER DATA: Female. status: : No status: NO. PATIENT RELEVANT IMPLANT DATA REVIEWED: Yes PATIENT PRESENTS WITH AN IMPLANTABLE OR ATTACHED FREIGHT CLAIM INVESTIGATOR: No RADIOLOGY DEPARTMENT: General X-ray: Exam(s) Completed: Lower Extremity X-Ray(s): Foot, Left PERIPHERAL IV DATA: Not applicable SIGNED BY: RT Vlad(R) December 10, 2023 12:24 [facility]09-24-2024 Instructions* Patient Instructions* Kedar Long - 12/10/2023 11:14 AM EDT Diabetes Foot Care Instructions When you have diabetes, proper foot care is very important. Poor foot care may lead to amputation of a foot or leg. As a person with diabetes, you are more vulnerable to foot problems, because diabetes can damage your nerves and reduce blood flow to your feet. Here are some diabetes foot care tips to follow: Wash and Dry Your Feet Daily Use mild soaps Use warm water Pat your skin dry; do not rub. Thoroughly dry your feet. After washing, use lotion on your feet to prevent cracking. Do not put lotion between your toes. Examine Your Feet Each Day Check the tops and bottoms of your feet. Have someone else look at your feet if you cannot see them. Check for dry, cracked skin. Look for blisters, cuts, scratches, or other sores. Check for redness, increased warmth, or tenderness when touching any area of your feet. Check for ingrown toenails, corns, and calluses. If you get a blister or sore from your shoes, do not "pop" it. Apply a bandage and wear a differentpair of shoes. Take Care of Your Toenails Cut toenails after bathing, when they are soft. Cut toenails straight across and smooth with a nail file. Avoid cutting into the corners of toes. Do not cut cuticles. If you have neuropathy (or decreased sensation in your feet) a neonatal intensive care nurse should always cut your toenails. Be Careful When Exercising Walk and exercise in comfortable shoes. Do not exercise when you have open sores on your feet. Protect Your Feet With Shoes and Socks Never go barefoot. Always protect your feet by wearing shoes or hard-soled slippers or footwear. Avoid shoes with high heels and pointed toes. Avoid shoes that expose your toes or heels (such as open-toed shoes or sandals). These types of shoes increase your risk for injury and potential infections. Try on new footwear with the type of socks you usually wear. Do not wear new shoes for more than an hour at a time. Change your socks daily. Look and feel inside your shoes before putting them on to make sure there are no foreign objects orrough areas. Avoid tight socks. Wear natural-fiber socks (cotton, wool, or a cotton-wool blend). Wear special shoes if your health care provider recommends them. Wear shoes/boots that will protect your feet from various weather conditions (cold, moisture, etc.). Make sure your shoes fit properly. If you have neuropathy (nerve damage), you may not notice that your shoes are too tight. Perform the "footwear test" described below. Footwear Test Use this simple test to see if your shoes fit correctly: Stand on a piece of paper. (Make sure you are standing and not sitting, because your foot changes shape when you stand.) Trace the outline of your foot. Trace the outline of your shoe. Compare the tracings: Is the shoe too narrow? Is your foot crammed into the shoe? The shoe should be at least 1/2 inch longer than your longest toe and as wide as your foot. Proper Shoe Choices The following types of shoes are best for people with diabetes Closed toes and heels Leather uppers without a seam inside At least 1/2 inch extra space at the end of your longest toe Inside of shoe should be soft with no rough areas Outer sole should be made of stiff material Shoes should be at least as wide as your feet Tips for Foot Care in Diabetes Don't wait to treat a minor foot problem if you have diabetes. Follow your health care provider's guidelines and first aid guidelines. Report foot injuries and infections to your health care provider immediately. Check water temperature with your elbow, not your foot. Do not use a heating pad on your feet. Do not cross your legs. Do not self-treat your corns, calluses, or other foot problems. Go to your health care provider or neonatal intensive care nurse to treat these conditions. Wound of left 5th metatarsal (bottom of foot) Apply aquacel to wound daily. Secure with guaze. Wear surgical shoe with peg assisted offloading insert. Use cane to aide in walking Would between left 4th and 5th toes Apply betadine between toes. Apply lambs wool between toes. Once healed, can use gel toe cap on left 5th toe. Remove at night to limit moisture build up documented in this encounterSelect [facility]-24-2024 NoteHNO ID: [id number] Author: KEDAR LONG, ? Service: ? Author Type: Physician Type: Progress Notes Filed: 12/10/2023 12:30 Note Text: Last saw pcp: 11/05/23 Subjective: Patient presents to clinic c/o painful toenails. They state that the nails are especially painful with shoe gear and pressure. Patient states that nails 1-5 left are painful. Patient admits to being diabetic. Does report callus of left foot. No other pedal complaints at this time. Patient states no change in medications or medical history since last visit. Objective: Patient presents to clinic ambulating in [facility] Vasc: DP and PT pulses are palpable left. CFT is less than 5 seconds bilateral. Skin temperature is warm to cool proximal to distal bilateral. There is no edema or varicosities noted. Neuro: Protective sensation is absent to the foot and toes when tested with the 5.07 SWM left. Vibratory sensation is absent at the hallux IPJ left. The hallux is downgoing left Derm: Nails 1-5 left are discolored-yellow, thick, crumbly, dystrophic and with subungal debris. Skin is dry and hair growth is absent bilateral. There are hyperkeratosis of left hallux, left 5th metatarsal and left 1st metatarsal. Superficial noninfected wound of left 4th and left 5th toe Ortho: hammertoes of lesser toes of left foot. Right bka Assessment: (L84) Callus of foot (primary encounter diagnosis) (B35.1) Onychomycosis (Z89.511) History of below-knee amputation of right lower extremity (HCC) (E08.621, L97.401) Diabetic ulcer of heel associated with diabetes mellitus due to underlying condition, limited to breakdown of skin, unspecified laterality (HCC) Ulcer of foot Plan: Patient was seen and evaluated. Nails 1-5 left were debrided in length and thickness. Q7 modifier. Callus reduced to elft 1st metatarsal, left hallux and left 5th metatarsal. Patient actually has superficial ulceration of left 5th metatarsal, noninfected. Measures about 9 mm x 7 mm. Will treat with aquacel, use of surgical shoe and offloading insert. Patient states she feels stable enough to use a surgical shoe. I will have her use a cane while walking. Keeping weight off the foot will help to heal this wound of 5th metatarsal Discussed superficial wound of left 4th and 5th toe. Recommend betadine and use of lambs wool to avoid rubbing between toes. Once superficial wound heals, can use gel toe cap or toe spacer to avoid rubbing Smoking cessation encouraged. Patient was instructed on the continued importance of diabetic foot care along with proper diet and keeping their blood sugar under control to prevent complications. Patient to f/u in 2-3 weeks or sooner to evaluate wounds Kedar Long [facility]09-24-2024 NoteHNO ID: [id number] Author: GAYE ZELAYA MA Service: ? Author Type: Coder Type: Progress Notes Filed: 12/10/2023 12:30 Note Text: Patient presents with: Left Foot - Follow Up Callus/toenail follow up AMB ROOMING INTAKE FLOWSHEET DATA Blood sugar this morning was 180.[facility]08-26-2024 Telephone encounter Note* Telephone Encounter - Meagan Choe LPN - 11/11/2023 1:22 PM EDT Patient telephoned and made aware of providers message and new rx sent. Voices understanding. Meagan Choe LPN [facility]-26-2024 Miscellaneous Notes* Telephone Encounter - Meagan Choe LPN - 11/11/2023 1:22 PM EDT Patient telephoned and made aware of providers message and new rx sent. Voices understanding. Meagan Choe LPN * Telephone Encounter - Sarah Fowler APRN.AUTO WASH BUFFER - 11/11/2023 11:39 AM EDT Potassium still low. Will send in prescription for potassium. Take 2 tabs daily for three days ad recheck on or Saturday depending on what day she starts. Sarah Fowler APRN.CNP documented in this encounterSelect [facility]-2024 Telephone encounter Note * Telephone Encounter - Sarah Fowler APRN.CNP - 11/11/2023 11:39 AM EDT Potassium still low. Will send in prescription for potassium. Take 2 tabs daily for three days ad recheck on or Saturday depending on what day she starts. Sarah Fowler APRN.CNP [facility]-2024 Telephone encounter Note* Telephone Encounter - Anali Choudhary APRN.CNP - 11/06/2023 9:27 AM EDT Routing to correct provider. Sarah - please see below Anali Choudhary APRN.CNP [facility] Work Phone: 1(388) 408-164308-21-2024 Miscellaneous Notes* Telephone Encounter - Anali Choudhary APRN.CNP - 11/06/2023 9:27 AM EDT Routing to correct provider. Sarah - please see below Anali Choudhary APRN.CNP * Telephone Encounter - Angus Ayers LPN - 11/06/2023 9:20 AM EDT Phoned patient and went over results, notes from Anali Choudhary [employer]USTRI[employer]TER HELPER with understanding. Patient said her refill on the ferrous sulfate so needs new rx sent to [facility]. Pending rx needs number of refills completed. * Telephone Encounter - Sarah Fowler APRN.CNP - 11/06/2023 7:32 AM EDT Potassium low would like her to take 40 meq for two days then recheck Saturday. IF she is not able tostart the potassium until then check level on Saturday. Hemoglobin has improved- continue iron supplement. White count is slightly elevated. Without signs or symptoms or infection we can recheck in one month. Sarah Fowler APRN.CNP documented in this encounterSelect [facility]-21-2024 Telephone encounter Note * Telephone Encounter - Angus Ayers LPN - 11/06/2023 9:20 AM EDT Phoned patient and went over results, notes from Anali Choudhary INDUSTRIAL GAS FITTER HELPER with understanding. Patient said her refill on the ferrous sulfate so needs new rx sent to [facility]. Pending rx needs number of refills completed. [facility] Telephone encounter Note* Telephone Encounter - Sarah Fowler APRN.CNP - 11/06/2023 7:32 AM EDT Potassium low would like her to take 40 meq for two days then recheck Saturday. IF she is not able tostart the potassium until then check level on Saturday. Hemoglobin has improved- continue iron supplement. White count is slightly elevated. Without signs or symptoms or infection we can recheck in one month. Sarah Fowler APRN.CNP [facility]-20-2024 History of Present illness Narrative* Erica Herman MD - 11/05/2023 10:31 AM EDT Chief Complaint Patient presents with: Follow Up: 3 month HPI Sanjuanita Jerry is a 58 year old female who presents here today for 3 month follow up. Patient states that she is back to wearing her prosthesis for right BKA and her previous wound and gas gangrene has resolved. Denies pain with use of prosthesis, swelling, erythema, drainage. F/u with ortho PRN. BP well controlled on current regimen. Does not check BP at home. Taking lisinopril as prescribed without side effects. DM managed by Dr. Wan Madrigal's office. Last OV less than 1 month ago. Reports A1c of 7.2. Taking metformin and Glipizide without side effects or hypoglycemia. Checking sugars daily. Still smoking about 1/2 pack per day. Not interested in quitting. Due for repeat labs to monitor anemia. Denies bleeding or bruising symptoms, melena. Past medical history, appointments, medications, allergies reviewed. Previous Medical History PAST MEDICAL HISTORY No date: Cataracts, bilateral Comment: s/p surgery in 2021 at [facility] 11/2022: Coronary artery calcification Comment: On CT chest No date: Diabetic neuropathy ([facility]) No date: Gas gangrene of lower extremity ([facility]) 09/29/2007: Goiter, unspecified No date: Known medical problems Comment: rt BKA No date: PAD (peripheral artery disease) ([facility]) 05/31/2022: S/P BKA (below knee amputation) ([facility]) Comment: right No date: Tobacco use disorder No date: Type II or unspecified type diabetes mellitus without mention of complication, uncontrolled Comment: Endo: Dr. Madrigal Previous Surgical History PAST SURGICAL HISTORY 80s: APPENDECTOMY HX 04/2022: CATARACT EXTRACTION HX; Bilateral 2019: EGD W/O BRSH SPEC VARICIES INJ Comment: with esophageal dilation 06/03/2022: LEG AMPUTATION HX; Right Comment: BKA No date: PAST SURGICAL HISTORY OF Comment: Lt thumb straightened Family History FAMILY HISTORY Problem Relation Age of Onset Stroke Mother Ischemic Heart Disease Mother Diabetes Mother Hypertension Mother Stroke Father Ischemic Heart Disease Father Hypertension Father Diabetes Father Kidney failure Sister Ischemic Heart Disease Brother Massive AR at age 38 Breast Cancer Paternal Grandmother Patient Allergies ALLERGIES No Known Allergies Current Medications Current Outpatient Medications on File Prior to Visit Medication Sig calcium carbonate (CALTRATE) 600 mg calcium (1,500 mg) tab Take 1,200 mg by mouth once daily. atorvastatin (LIPITOR) 40 mg tablet Take 1 tablet by mouth daily at bedtime. For cholesterol. aspirin, enteric coated (ASPIRIN, ENTERIC COATED) 81 mg EC tablet Take 81 mg by mouth once daily. albuterol HFA (PROVENTIL HFA, VENTOLIN HFA) 90 mcg/actuation inhaler Inhale 2 Puffs as instructed every 4 hours as needed for wheezing/shortness of breath. lisinopril (ZESTRIL) 5 mg tablet Take 1 tablet by mouth once daily. Cholecalciferol, Vitamin D3, (VITAMIN D) 25 mcg (1,000 unit) cap Take 2 capsules by mouth once daily. Taking 2,000 units daily urea (CARMOL) 40 % Apply to affected area once daily. metFORMIN (GLUCOPHAGE) 1,000 mg tablet Take 1,000 mg by mouth twice daily with meals. glipiZIDE (GLUCOTROL) 5 mg tablet Take 5 mg by mouth two times a day before meals. ferrous sulfate 325 mg (65 mg iron) tablet Take 325 mg by mouth. blood sugar diagnostic(TRUETRACK TEST STRIPS) Test blood sugars twice daily. blood-glucose meter(Element ID BLOOD GLUCOSE SYSTEM KIT) Test glucose as directed blood-glucose control, low(TRUETRACK GLUCOSE SOLN) Test controls as needed LANCETS Test blood sugars once daily, 250.00, non insulin dep No current facility-administered medications on file prior to visit. Social History Social History Tobacco Use Smoking status: Every Day Current packs/day: 0.50 Average packs/day: 0.5 packs/day for 44.6 years (22.3 ttl pk-yrs) Types: Cigarettes Start date: 03/18/1979 Smokeless tobacco: Never Vaping Use Vaping status: Never Used Substance Use Topics Alcohol use: No Drug use: No Review of Symptoms REVIEW OF SYSTEMS GENERAL: No weight loss, malaise or fevers RESPIRATORY: Negative for cough, hemoptysis, wheezing, COPD, dyspnea or shortness of breath CARDIOVASCULAR: Negative for chest pain, leg swelling, hypertension, CHF or palpitations GI: No nausea, vomiting, or diarrhea SKIN: Negative for lesions, rash, and itching EXAM: BP 110/66 Pulse 94 Resp 16 Wt 44.8 kg (98 lb 12.3 oz) LMP 09/16/2007 SpO2 97% BMI 19.29kg/m General Appearance: Well appearing, alert, in no acute distress, well-hydrated, well nourished.. Skin: Skin color, texture, turgor normal, no suspicious rashes or lesions. Lungs: Lungs clear to auscultation. No wheezing, rhonchi, rales.. Heart: RRR without murmur, gallop, or rubs. No ectopy. Abdomen: Normal abdominal exam, Abdomen soft, non-tender. Bowel sounds normal. No masses, organomegaly. Extremities: right BKA. No edema of LLE. Health Maintenance List Urine Albumin:Creatinine Ratio due on 12/04/2009 Dilated Retinal Exam due on 04/02/2010 Colorectal Cancer Screening Never done Shingrix Vaccine(1 of 2) Never done HbA1C due on 08/31/2022 Mammogram Screening due on 12/07/2023 Hepatitis B Vaccine(1 of 3 - 19+ 3-dose series) due on 02/02/2024 Hepatitis C Screening due on 02/02/2024 HIV Screening due on 02/02/2024 Covid-19 Vaccine( season) due on 02/02/2024 Influenza Vaccine(1) due on 11/17/2023 Lung Cancer Screening due on 12/07/2023 LDL Cholesterol due on 02/02/2024 Diabetic Foot Exam due on 02/02/2024 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 Chronic Disease Visit due on 08/04/2024 BP Controlled (<130/80) due on 08/04/2024 Cervical Cancer Screening due on 12/11/2027 DTaP,Tdap,Td Vaccine(2 - Td or Tdap) due on 02/01/2033 Pneumococcal Vaccine Completed Data reviewed Latest Ref Rng 08/05/2023 WBC 3.70 - 11.00 k/uL 8.11 RBC 3.90 - 5.20 m/uL 2.86 (L) Hemoglobin 11.5 - 15.5 g/dL 8.9 (L) Hematocrit 36.0 - 46.0 % 26.8 (L) MCV 80.0 - 100.0 fL 93.7 MCH 26.0 - 34.0 pg 31.1 MCHC 30.5 - 36.0 g/dL 33.2 RDW-CV 11.5 - 15.0 % 13.6 Platelet Count 150 - 400 k/uL 287 MPV 9.0 - 12.7 fL 10.5 Neut% % 69.5 Abs Neut (ANC) 1.45 - 7.50 k/uL 5.63 Lymph% % 20.8 Abs Lymph 1.00 - 4.00 k/uL 1.69 Andrew% % 7.9 Abs Andrew <0.87 k/uL 0.64 Eosin% % 0.7 Abs Eosin <0.46 k/uL 0.06 Baso% % 0.7 Abs Baso <0.11 k/uL 0.06 Immature Gran % % 0.4 IMMATURE GRANS (ABS) <0.10 k/uL 0.03 NRBC /100 WBC 0.0 Absolute nRBC <0.01 k/uL <0.01 DTYPE Auto Protein, Total 6.3 - 8.0 g/dL 6.6 Albumin 3.9 - 4.9 g/dL 3.8 (L) Calcium 8.5 - 10.2 mg/dL 9.2 Bilirubin, Total 0.2 - 1.3 mg/dL 0.2 Alkaline Phosphatase 34 - 123 U/L 85 AST 13 - 35 U/L 14 ALT 7 - 38 U/L 6 (L) Glucose 74 - 99 mg/dL 123 (H) BUN 7 - 21 mg/dL 8 Creatinine 0.58 - 0.96 mg/dL 1.03 (H) Sodium 136 - 144 mmol/L 132 (L) Potassium 3.7 - 5.1 mmol/L 3.5 (L) Chloride 97 - 105 mmol/L 98 CO2 22 - 30 mmol/L 22 Anion Gap 9 - 18 mmol/L 12 eGFR >=60 mL/min/1.73m 64 Iron 41 - 186 ug/dL 45 TIBC 232 - 386 ug/dL 319 Transferrin Saturation 15.0 - 57.0 % 14.1 (L) Ferritin 14.7 - 205.1 ng/mL 123.0 Vitamin B12 232 - 1,245 pg/mL 499 Folate >4.7 ng/mL 7.2 Legend: (L) Low (H) High ASSESSMENT/PLAN: 1. Primary hypertension - ICD9: 401.9, ICD10: I10 (primary diagnosis) - Controlled - Continue current medications - Recommend home blood pressure monitoring, to bring results to next visit - Encouraged sodium restriction, DASH or Mediterranean diet - Recommend regular aerobic exercise 2. DM type 2 with diabetic peripheral neuropathy (HCC) - ICD9: 250.60, 357.2, ICD10: E11.42 Managed by endocrinology. Continue current regimen. Will f/u recommendations. - LISINOPRIL 5 MG TABLET 3. Below-knee amputation of right lower extremity, sequela (HCC) - ICD9: 905.9, ICD10: S88.111S Wound healed well. Using prosthesis without issues. F/u PRN with ortho. Red flags for re-assessmentreviewed with patient in detail. 4. Normocytic anemia - ICD9: 285.9, ICD10: D64.9 Patient overdue for repeat labs and FOBT. Labs ordered in July and will be completed today. Denies bleeding/bruising symptoms. Iron and vitamin workup negative thus far. Will call with results. - IMMUNOCHEMICAL FECAL OCCULT BLOOD TEST 5. Hyperlipidemia, mixed - ICD9: 272.2, ICD10: E78.2 - Continue current medications - Counseled on healthy diet and regular exercise 6. Coronary artery calcification - ICD9: 414.00, 414.4, ICD10: I25.10 Recent stress test negative. Continue ASA and statin daily. 7. Tobacco use disorder - ICD9: 305.1, ICD10: F17.200 - Cessation encouraged. - Physiologic and physical aspects of tobacco addiction as well as strategies for quitting were discussed. - Counseling was given focusing on the harmful effects of this addiction especially given the patient's medical condition(s) which will be worsened because of the chemicals in tobacco. Erica Herman MD documented in this encounterSelect [facility] History of Present illness Narrative* Giovanny Morelos RN - 08/19/2023 1:21 PM EDT RADIOLOGY SERVICE PROGRESS NOTE SERVICE DATE: 08/19/2023 SERVICE TIME: 0815 PATIENT IDENTITY VERIFICATION COMPLETED USING TWO (2) METHODS: Patient confirmed name and Date of verbally. ALLERGIES AND MEDICATIONS REVIEWED BY: Giovanny Morelos RN PROCEDURE TYPE: NM STRESS: 0.4 mg of Lexiscan was administered IV at 0835 over 10 Seconds by Giovanny Morelos RN Reversal agent used:none LOT [id number] EXP 04/12 IV SITE: IV palced by nuclear tecnologist POST EXAM PIV STATUS: Discontinued by Air Pollution Auditor PATIENT DISCHARGED TO: Nuclear Medicine Department for post stress imaging A Diagnostic radioactive procedure has taken place, with no further precautions necessary other than routine body substance precautions. More information regarding radiation safety can be found usingthis link: [email or web address] SIGNATURE: Giovanny Morelos RN PATIENT NAME:Sanjuanita Jerry DATE: 08/19/23 TIME: 1:22 PM documented in this encounter[facility] History of Present illness Narrative* Misty Ascencio RT(R) - 08/19/2023 7:00 AM EDT RADIOLOGY SERVICE PROGRESS NOTE SERVICE DATE: 08/19/2023 SERVICE TIME: 07:05 AM PATIENT IDENTITY VERIFICATION COMPLETED USING TWO (2) STANDARD IDENTIFIERS: Name and Date of confirmed by patient verbally FALL SCREENING: Has the patient had 2 falls in the last year or 1 fall with injury or currently using an Ambulatory Assistive Device (Walker, Cane, Wheelchair, Crutches, etc.)? Yes, Patient High Riskfor Falls What interventions were put in place to prevent falls during this visit? Instructed Patient to Callfor Help if Needed, Offered Assistance with Transfers/Clothing, Instructed Patient to Remain Seated(Not on Exam Table) Until Exam, Increased Observations by Caregivers, and Escorted to/from Restroom PATIENT GENDER DATA: .female : No ALLERGIES: Reviewed and unchanged MEDICATIONS REVIEWED: No PATIENT RELEVANT IMPLANT DATA REVIEWED: Not Applicable PATIENT PRESENTS WITH AN IMPLANTABLE OR ATTACHED FREIGHT CLAIM INVESTIGATOR: n/a CREATININE: Creatinine Date Value Ref Range Status 08/05/2023 1.03 (H) 0.58 - 0.96 mg/dL Final 03/06/2023 0.73 0.58 - 0.96 mg/dL Final 02/01/2023 0.60 0.58 - 0.96 mg/dL Final Estimated Glomerular Filtration Rate Date Value Ref Range Status 08/05/2023 64 >=60 mL/min/1.73m Final Comment: Estimated Glomerular Filtration Rate (eGFR) is calculated using the 2020 CKD-EPI creatinine equation. This equation utilizes serum creatinine, sex, and age as parameters. The creatinine assay has traceable calibration to isotope dilution- mass spectrometry. Refer to KDIGO guidelines for clinical interpretation. In patients with unstable renal function, e.g. those with acute kidney injury, the eGFRmay not accurately reflect actual GFR. P.O.C.T. RESULTS: N/A August 19, [address] PERFORMED: No IV SITE: Ambulatory: A peripheral IV was started in the Right forearm with a Angio cath: 22 gauge. POST EXAM PIV STATUS: Discontinued PROCEDURE TYPE: NM Stress: 13.6 mCi [id number] was administered IV for Rest Imaging at 07:14 by Misty Ascencio. 35.1 mCi [id number] was administered IV for Stress Imaging at 08:35 by Misty Ascencio. ADMINISTRATION TIME: PATIENT DISCHARGED TO: Ambulatory patient, left NM department area. A Diagnostic radioactive procedure has taken place, with no further precautions necessary other than routine body substance precautions. More information regarding radiation safety can be found usingthis link: [email or web address]%20Nuclear%20Medicine%[email or web address] SIGNATURE: VALENTINO Schulz) PATIENT NAME: Sanjuanita Jerry DATE: August 19, 2023 TIME: 07:05 AM PAGER/CONTACT #: documented in this encounterSelect [facility]-31-[facility] Telephone encounter Note * Telephone Encounter - Giovanny Morelos RN - 08/16/2023 9:05 AM EDT Patient called and the below instructions reviewed with the patient. Giovanny Morelos RN You are scheduled for a stress test on 08/19/23 at 7am. This stress test will appear as 3 appointments on your schedule. You may get multiple reminder calls, but please arrive at the earliest scheduled appointment. Please follow below instructions: *NOTHING BY MOUTH 4 HOURS prior to this test. (you may have sips of water) *NO CAFFEINE FOR 24 HOURS PRIOR TO TESTING (including TEA even decaf, COFFEE- even decaf, CHOCOLATE, DAVID- even decaf) *Do NOT take MEDICATIONS CONTAINING CAFFEINE/XANTHINE for 24 HOURS prior to testing: Theophylline, Trental, Excedrin, Anacin, Goody Powders, No Doz, Vivarin, Midol, Diurex, Fiorinal, Fioricet, Esgic (butalbital) *Do NOT take Calcium Channel Blockers 24 HOURS prior to test. *Do NOT take Beta blockers 24 HOURS prior to test UNLESS your doctor tells you otherwise. *Do NOT use the following medications 48 HOURS prior to this test: Viagra(Sildenafil citrate), Cialis(Tadalafil), Vardenafil (Levitra, Stanyx), Avanfil (Stendra). *Do not take any of these meds prior to test unless provider directs you otherwise; Nitroglycerine (ex:Deponit, Nitrostat) Isosorbide (ex:Isordil, Sorbitrate,Imdur,Ismo). Medications on your list you should hold for 24 HOURS: None *All other medications may be taken as you normally would. *Guidelines for Diabetics: If you take insulin to control your blood sugar, ask you physician what amount you should take the day of the test. If you take pills to control blood sugar, on the day of the test, do NOT take them until AFTER the test. *FAILURE TO FOLLOW THESE INSTRUCTIONS WILL RESULT IN HAVING TO RESCHEDULE THE TEST. *If you use an inhaler, bring it along with you just in case *THIS TEST MAY TAKE UP TO 3 HOURS TO COMPLETE. Please check in on the first floor at Radiology: [address]; [place] [address] * If you need to cancel or reschedule this test or have any questions regarding this test, please call [phone]. [facility] Miscellaneous Notes* Telephone Encounter - Giovanny Morelos RN - 08/16/2023 9:05 AM EDT Patient called and the below instructions reviewed with the patient. Giovanny Morelos RN You are scheduled for a stress test on 08/19/23 at 7am. This stress test will appear as 3 appointments on your schedule. You may get multiple reminder calls, but please arrive at the earliest scheduled appointment. Please follow below instructions: *NOTHING BY MOUTH 4 HOURS prior to this test. (you may have sips of water) *NO CAFFEINE FOR 24 HOURS PRIOR TO TESTING (including TEA even decaf, COFFEE- even decaf, CHOCOLATE, DAVID- even decaf) *Do NOT take MEDICATIONS CONTAINING CAFFEINE/XANTHINE for 24 HOURS prior to testing: Theophylline, Trental, Excedrin, Anacin, Goody Powders, No Doz, Vivarin, Midol, Diurex, Fiorinal, Fioricet, Esgic (butalbital) *Do NOT take Calcium Channel Blockers 24 HOURS prior to test. *Do NOT take Beta blockers 24 HOURS prior to test UNLESS your doctor tells you otherwise. *Do NOT use the following medications 48 HOURS prior to this test: Viagra(Sildenafil citrate), Cialis(Tadalafil), Vardenafil (Levitra, Stanyx), Avanfil (Stendra). *Do not take any of these meds prior to test unless provider directs you otherwise; Nitroglycerine (ex:Deponit, Nitrostat) Isosorbide (ex:Isordil, Sorbitrate,Imdur,Ismo). Medications on your list you should hold for 24 HOURS: None *All other medications may be taken as you normally would. *Guidelines for Diabetics: If you take insulin to control your blood sugar, ask you physician what amount you should take the day of the test. If you take pills to control blood sugar, on the day of the test, do NOT take them until AFTER the test. *FAILURE TO FOLLOW THESE INSTRUCTIONS WILL RESULT IN HAVING TO RESCHEDULE THE TEST. *If you use an inhaler, bring it along with you just in case *THIS TEST MAY TAKE UP TO 3 HOURS TO COMPLETE. Please check in on the first floor at Radiology: [address]; [place] [address] * If you need to cancel or reschedule this test or have any questions regarding this test, please call [phone]. documented in this encounterSelect [facility]05-21-[facility]24 Telephone encounter Note * Telephone Encounter - Felecia Navarro LPN - 08/06/2023 10:22 AM EDT Phoned patient and reviewed results and recommendations with her. Patient voiced understanding. Felecia Navarro LPN [facility]05-21-2024 Miscellaneous Notes* Telephone Encounter - Felecia Navarro LPN - 08/06/2023 10:22 AM EDT Phoned patient and reviewed results and recommendations with her. Patient voiced understanding. Felecia Navarro LPN * Telephone Encounter - Sarah Fowler APRN.CNP - 08/06/2023 8:45 AM EDT Anemia a a little worse- Iron levels look okay. I can't remember if I asked her if she was taking her iron or not. I would recommend she stay on that. She needs to bring in stool sample so we can make sure she is not losing blood through her stool. Sodium level is a little low. Potasium on low normal side- increase diet in potasium rich foods- vegetables and fruits are good sources. Recommend we r echeck her sodium level and hemoglobin one month. Sarah Fowler APRN.BARTOLO documented in this encounterSelect [facility]-21-2024 NoteHNO ID: [id number] Author: BHARATI RIGGS MD Service: ? Author Type: Physician Type: Progress Notes Filed: 08/06/2023 10:23 Note Text: Subjective: Patient returns today follow-up guarding her irrigation debridement of her right lower extremity below-knee amputation. Overall doing well. Objective: Examination right lower extremity shows wounds to be healing well. No signs of infection. Assessment: #1 gas gangrene right lower extremity. #2 right below-knee amputation. Intraoperative cultures showed no growth. Plan: We will remove her sutures today. Steri-Strips will be placed. I would refrain from wearing prosthesis for 2-3 additional weeks. They expressed understanding. I will see her back on an as-needed basis. If she has any questions or concerns in the future, she will contact the office. Her questions were answered.[facility]05-21-2024 History of Present illness Narrative* Bharati Riggs MD - 08/06/2023 10:15 AM EDT Subjective: Patient returns today follow-up guarding her irrigation debridement of her right lower extremity below-knee amputation. Overall doing well. Objective: Examination right lower extremity shows wounds to be healing well. No signs of infection. Assessment: #1 gas gangrene right lower extremity. #2 right below-knee amputation. Intraoperative cultures showed no growth. Plan: We will remove her sutures today. Steri-Strips will be placed. I would refrain from wearing prosthesis for 2-3 additional weeks. They expressed understanding. I will see her back on an as-needed basis. If she has any questions or concerns in the future, she will contact the office. Her questions were answered. documented in this encounterSelect [facility]24 Telephone encounter Note * Telephone Encounter - PodaliciaarSarah APRN.AUTO WASH BUFFER - 08/06/2023 8:45 AM EDT Anemia a a little worse- Iron levels look okay. I can't remember if I asked her if she was taking her iron or not. I would recommend she stay on that. She needs to bring in stool sample so we can make sure she is not losing blood through her stool. Sodium level is a little low. Potasium on low normal side- increase diet in potasium rich foods- vegetables and fruits are good sources. Recommend we r echeck her sodium level and hemoglobin one month. Sarah Fowler APRN.BARTOLO [facility] History of Present illness Narrative* Sarah Fowler APRN.BARTOLO - 08/05/2023 11:20 AM EDT 08/05/2023 Patient presents with: F/U 6 months SUBJECTIVE: This is a 58 year old, accompanied by daughter, that is here today for Above Complaints. Diabetes: follows with Dr. Madrigal, endocrinology at [facility]. Last office visit on 06/12/2023. Follow-up scheudled for. Next follow-up in August. Last A1c 7.0% .Taking medications as prescribed Checks blood sugar daily fasting 120-160. Denies polyuria, polydipsia and visual changes HYPERLIPIDEMIA: Patient is taking medications: Yes. Patient is watching diet: Yes. Patient denies myalgias: Yes. Patient denies gi upset: Yes HTN: Patient is compliant with meds Yes Monitors bp at home: No. Denies side effects: Yes. Chest pain: No. Dyspnea: No. Edema: No. Palpitations: No. Syncope: No. Headache: No. Dizziness: No. Following with Dr. Riggs ,orthopedics, for hx of RBKA with wound complications. Next follow-up is tomorrow. Following with cardiology after lung cancer screening showed extensive calcifications of coronary arteries. Last office visit on 06/17/2023. Has upcoming stress test. On 08/19/2023. Recommended statin and ASA Weight down about 8# pounds since last office visit on . Patient reports hasn't been snacking as much. PAST MEDICAL HISTORY Diagnosis Date Cataracts, bilateral s/p surgery in 2021 at [facility] Coronary artery calcification 11/[address] chest Diabetic neuropathy (HCC) Gas gangrene of lower extremity (HCC) Goiter, unspecified 09/29/2007 Known medical problems rt BKA PAD (peripheral artery disease) ([facility]) S/P BKA (below knee amputation) ([facility]) 05/31/2022 right Tobacco use disorder Type II or unspecified type diabetes mellitus without mention of complication, uncontrolled Endo: Dr. Madrigal ALLERGIES Patient has no known allergies. MEDICATIONS Current Outpatient Medications Medication Sig aspirin, enteric coated (ASPIRIN, ENTERIC COATED) 81 mg EC tablet Take 81 mg by mouth once daily. albuterol HFA (PROVENTIL HFA, VENTOLIN HFA) 90 mcg/actuation inhaler Inhale 2 Puffs as instructed every 4 hours as needed for wheezing/shortness of breath. lisinopril (ZESTRIL) 5 mg tablet Take 1 tablet by mouth once daily. Cholecalciferol, Vitamin D3, (VITAMIN D) 25 mcg (1,000 unit) cap Take 2 capsules by mouth once daily. Taking 2,000 units daily urea (CARMOL) 40 % Apply to affected area once daily. atorvastatin (LIPITOR) 40 mg tablet Take 1 tablet by mouth daily at bedtime. For cholesterol. metFORMIN (GLUCOPHAGE) 1,000 mg tablet Take 1,000 mg by mouth twice daily with meals. glipiZIDE (GLUCOTROL) 5 mg tablet Take 5 mg by mouth two times a day before meals. ferrous sulfate 325 mg (65 mg iron) tablet Take 325 mg by mouth. blood sugar diagnostic(TRUETRACK TEST STRIPS) Test blood sugars twice daily. blood-glucose meter(Element ID BLOOD GLUCOSE SYSTEM KIT) Test glucose as directed blood-glucose control, low(TRUETRACK GLUCOSE SOLN) Test controls as needed LANCETS Test blood sugars once daily, 250.00, non insulin dep No current facility-administered medications for this visit. Medications and allergies reviewed by this provider. SOCIAL HISTORY Social History Tobacco Use Smoking status: Every Day Packs/day: 0.50 Years: 43.00 Additional pack years: 0.00 Total pack years: 21.50 Types: Cigarettes Start date: 03/18/1979 Smokeless tobacco: Never Vaping Use Vaping Use: Never used Substance Use Topics Alcohol use: No Drug use: No REVIEW OF SYSTEMS All other reviewed and negative other than HPI. OBJECTIVE: BP 102/56 Pulse 97 Resp 16 Wt 41.2 kg (90 lb 12.8 oz) LMP 09/16/2007 SpO2 98% BMI 17.73kg/m . Vital signs reviewed by this provider. APPEARANCE Well appearing, alert, in no acute distress, well-hydrated, well nourished. EYES conjunctiva and sclera normal. HEART RRR with normal S1 and S2, no murmurs, no gallops, no JVD appreciated LUNG clear to auscultation. No wheezes, rhonchi or rales EXTREMITIES Dressing to RBKA. No swelling to LLE SKIN Skin color, texture, turgor normal, no suspicious rashes or lesions to exposed skin Latest Ref [facility] 03/06/2023 WBC 3.70 - 11.00 k/uL 8.67 RBC 3.90 - 5.20 m/uL 3.13 (L) Hemoglobin 11.5 - 15.5 g/dL 9.4 (L) Hematocrit 36.0 - 46.0 % 29.2 (L) MCV 80.0 - 100.0 fL 93.3 MCH 26.0 - 34.0 pg 30.0 MCHC 30.5 - 36.0 g/dL 32.2 RDW-CV 11.5 - 15.0 % 12.6 Platelet Count 150 - 400 k/uL 330 MPV 9.0 - 12.7 fL 11.0 Neut% % 71.7 Abs Neut (ANC) 1.45 - 7.50 k/uL 6.22 Lymph% % 18.6 Abs Lymph 1.00 - 4.00 k/uL 1.61 Andrew% % 6.2 Abs Andrew <0.87 k/uL 0.54 Eosin% % 1.8 Abs Eosin <0.46 k/uL 0.16 Baso% % 1.2 Abs Baso <0.11 k/uL 0.10 Immature Gran % % 0.5 IMMATURE GRANS (ABS) <0.10 k/uL 0.04 NRBC /100 WBC 0.0 Absolute nRBC <0.01 k/uL <0.01 DTYPE Auto Protein, Total 6.3 - 8.0 g/dL 7.0 Albumin 3.9 - 4.9 g/dL 3.8 (L) Calcium 8.5 - 10.2 mg/dL 9.5 Bilirubin, Total 0.2 - 1.3 mg/dL 0.2 Alkaline Phosphatase 34 - 123 U/L 130 (H) AST 13 - 35 U/L 21 ALT 7 - 38 U/L 23 Glucose 74 - 99 mg/dL 151 (H) BUN 7 - 21 mg/dL 10 Creatinine 0.58 - 0.96 mg/dL 0.73 Sodium 136 - 144 mmol/L 138 Potassium 3.7 - 5.1 mmol/L 3.9 Chloride 97 - 105 mmol/L 104 CO2 22 - 30 mmol/L 22 Anion Gap 9 - 18 mmol/L 12 eGFR >=60 mL/min/1.73m 97 Latest Ref Rng 02/01/2023 Total Cholesterol, Nonfasting <200 mg/dL 211 (H) Triglycerides, Nonfasting <150 mg/dL 61 HDL Cholesterol, Nonfasting >39 mg/dL 93 LDL Cholesterol, Nonfasting <100 mg/dL 106 (H) Non HDL Cholesterol, Nonfasting <130 mg/dL 118 VLDL Cholesterol, Nonfasting <30 mg/dL 12 Total Chol/HDL Ratio, Nonfasting <5.10 mg/dL 2.27 LDL/HDL Ratio, Nonfasting <2.54 mg/dL 1.14 Legend: (H) High Legend: (L) Low (H) High Urine Albumin:Creatinine Ratio due on 12/04/2009 Dilated Retinal Exam due on 04/02/2010 Colorectal Cancer Screening Never done Shingrix Vaccine(1 of 2) Never done HbA1C due on 08/31/2022 Hepatitis B Vaccine(1 of 3 - 19+ 3-dose series) due on 02/02/2024 Hepatitis C Screening due on 02/02/2024 HIV Screening due on 02/02/2024 Covid-19 Vaccine( season) due on 02/02/2024 Influenza Vaccine(Season Ended) due on 11/17/2023 Mammogram Screening due on 12/07/2023 Lung Cancer Screening due on 12/07/2023 LDL Cholesterol due on 02/02/2024 Diabetic Foot Exam due on 02/02/2024 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 Chronic Disease Visit due on 08/04/2024 BP Controlled (<130/80) due on 08/04/2024 Pap Testing due on 12/11/2027 HPV Testing due on 12/11/2027 DTaP,Tdap,Td Vaccine(2 - Td or Tdap) due on 02/01/2033 Pneumococcal Vaccine Completed ASSESSMENT/PLAN: 1. Primary hypertension - ICD9: 401.9, ICD10: I10 (primary diagnosis) - Controlled - Continue current medications - Recommend home blood pressure monitoring, to bring results to next visit - Encouraged sodium restriction, DASH or Mediterranean diet - Recommend regular aerobic exercise - Follow up in 6 months for hypertension visit - COMPREHENSIVE METABOLIC PANEL 2. DM type 2 with diabetic peripheral neuropathy (HCC) - ICD9: 250.60, 357.2, ICD10: E11.42 - follow-up with endocrinology as scheduled 3. Anemia, unspecified type - ICD9: 285.9, ICD10: D64.9 - reminded patient to bring in stool sample - COMPLETE BLOOD COUNT AND DIFFERENTIAL - FERRITIN - IRON AND TIBC - VITAMIN B12 - FOLATE, SERUM 4. Below-knee amputation of right lower extremity, sequela (HCC) - ICD9: 905.9, ICD10: S88.111S - follow-up with ortho as scheduled 5. Tobacco use disorder - ICD9: 305.1, ICD10: F17.200 - Cessation encouraged. - Physiologic and physical aspects of tobacco addiction as well as strategies for quitting were discussed. - Counseling was given focusing on the harmful effects of this addiction especially given the patient's medical condition(s) which will be worsened because of the chemicals in tobacco. 6. Hyperlipidemia, mixed - ICD9: 272.2, ICD10: E78.2 - Uncontrolled - Continue current medications - Counseled on healthy diet and regular exercise - Follow up in 6 months, sooner should any other issues arise. 7. Coronary artery calcification - ICD9: 414.00, 414.4, ICD10: I25.10, I25.84 - complete stress test as scheduled and follow-up with cardiology as recommended 8. Weight loss - ICD9: 783.21, ICD10: R63.4 - increase protein and calories in diet - patient reports she had a colonoscopy in the last 10 years but we do not have in our system and she is not sure were she completed it, otherwise cancer screenings are up to date - follow-up in 3 months Sarah Fowler APRN.CNP Prescription instructions reviewed with patient as applicable. Patient advised if symptoms do not improve or if symptoms worsen sooner, to contact their primary care physician. Potential red flag symptoms discussed with the patient. Reviewed appropriate action plan to take if red flag symptoms occur. Patient agreeable to treatment plan. Medical Decision Making: Problems: Moderate: New problem with uncertain prognosis and 2+ stable chronic illnesses Data: Unique test(s) ordered: 3+ Risk: Moderate: Moderate risk from testing/treatment Medical Decision Making Level: 4 - Moderate documented in this encounterSelect [facility] Instructions* Patient Instructions* Kedar Long - 08/01/2023 11:06 AM EDT Diabetes Foot Care Instructions When you have diabetes, proper foot care is very important. Poor foot care may lead to amputation of a foot or leg. As a person with diabetes, you are more vulnerable to foot problems, because diabetes can damage your nerves and reduce blood flow to your feet. Here are some diabetes foot care tips to follow: Wash and Dry Your Feet Daily Use mild soaps Use warm water Pat your skin dry; do not rub. Thoroughly dry your feet. After washing, use lotion on your feet to prevent cracking. Do not put lotion between your toes. Examine Your Feet Each Day Check the tops and bottoms of your feet. Have someone else look at your feet if you cannot see them. Check for dry, cracked skin. Look for blisters, cuts, scratches, or other sores. Check for redness, increased warmth, or tenderness when touching any area of your feet. Check for ingrown toenails, corns, and calluses. If you get a blister or sore from your shoes, do not "pop" it. Apply a bandage and wear a differentpair of shoes. Take Care of Your Toenails Cut toenails after bathing, when they are soft. Cut toenails straight across and smooth with a nail file. Avoid cutting into the corners of toes. Do not cut cuticles. If you have neuropathy (or decreased sensation in your feet) a neonatal intensive care nurse should always cut your toenails. Be Careful When Exercising Walk and exercise in comfortable shoes. Do not exercise when you have open sores on your feet. Protect Your Feet With Shoes and Socks Never go barefoot. Always protect your feet by wearing shoes or hard-soled slippers or footwear. Avoid shoes with high heels and pointed toes. Avoid shoes that expose your toes or heels (such as open-toed shoes or sandals). These types of shoes increase your risk for injury and potential infections. Try on new footwear with the type of socks you usually wear. Do not wear new shoes for more than an hour at a time. Change your socks daily. Look and feel inside your shoes before putting them on to make sure there are no foreign objects orrough areas. Avoid tight socks. Wear natural-fiber socks (cotton, wool, or a cotton-wool blend). Wear special shoes if your health care provider recommends them. Wear shoes/boots that will protect your feet from various weather conditions (cold, moisture, etc.). Make sure your shoes fit properly. If you have neuropathy (nerve damage), you may not notice that your shoes are too tight. Perform the "footwear test" described below. Footwear Test Use this simple test to see if your shoes fit correctly: Stand on a piece of paper. (Make sure you are standing and not sitting, because your foot changes shape when you stand.) Trace the outline of your foot. Trace the outline of your shoe. Compare the tracings: Is the shoe too narrow? Is your foot crammed into the shoe? The shoe should be at least 1/2 inch longer than your longest toe and as wide as your foot. Proper Shoe Choices The following types of shoes are best for people with diabetes Closed toes and heels Leather uppers without a seam inside At least 1/2 inch extra space at the end of your longest toe Inside of shoe should be soft with no rough areas Outer sole should be made of stiff material Shoes should be at least as wide as your feet Tips for Foot Care in Diabetes Don't wait to treat a minor foot problem if you have diabetes. Follow your health care provider's guidelines and first aid guidelines. Report foot injuries and infections to your health care provider immediately. Check water temperature with your elbow, not your foot. Do not use a heating pad on your feet. Do not cross your legs. Do not self-treat your corns, calluses, or other foot problems. Go to your health care provider or neonatal intensive care nurse to treat these conditions. [facility] History of Present illness Narrative* Kedar Long - 08/01/2023 11:00 AM EDT FOLLOW UP PODIATRIC OFFICE VISIT Chief Complaint: This 58 year old who presents for follow up:left foot callus Patient presents to clinic for follow-up ulceration of left foot She is wearing post-op shoe. She feels her wound is healed She is s/p revised bka, right PAIN EVALUATION No data found in the last 1 encounters. Hemoglobin A1C Date Value Ref Range Status 05/31/2022 8.5 (H) 4.3 - 5.6 % Final Comment: [place] [employer] guidelines indicate that patients with HgbA1c in the range 5.7-6.4% are at increased risk for development of diabetes, and intervention by lifestyle modification may be beneficial. HgbA1c greater or equal to 6.5% is considered diagnostic of diabetes. PCP: Erica Herman MD PAST MEDICAL HISTORY Diagnosis Date Cataracts, bilateral s/p surgery in 2021 at [facility] Coronary artery calcification 11/[address] chest Diabetic neuropathy (HCC) Gas gangrene of lower extremity ([facility]) Goiter, unspecified 09/29/2007 Known medical problems rt BKA PAD (peripheral artery disease) ([facility]) S/P BKA (below knee amputation) ([facility]) 05/31/2022 right Tobacco use disorder Type II or unspecified type diabetes mellitus without mention of complication, uncontrolled Endo: Dr. Madrigal Current Outpatient Medications Medication Sig aspirin, enteric coated (ASPIRIN, ENTERIC COATED) 81 mg EC tablet Take 81 mg by mouth once daily. albuterol HFA (PROVENTIL HFA, VENTOLIN HFA) 90 mcg/actuation inhaler Inhale 2 Puffs as instructed every 4 hours as needed for wheezing/shortness of breath. lisinopril (ZESTRIL) 5 mg tablet Take 1 tablet by mouth once daily. Cholecalciferol, Vitamin D3, (VITAMIN D) 25 mcg (1,000 unit) cap Take 2 capsules by mouth once daily. Taking 2,000 units daily urea (CARMOL) 40 % Apply to affected area once daily. atorvastatin (LIPITOR) 40 mg tablet Take 1 tablet by mouth daily at bedtime. For cholesterol. metFORMIN (GLUCOPHAGE) 1,000 mg tablet Take 1,000 mg by mouth twice daily with meals. glipiZIDE (GLUCOTROL) 5 mg tablet Take 5 mg by mouth two times a day before meals. ferrous sulfate 325 mg (65 mg iron) tablet Take 325 mg by mouth. blood sugar diagnostic(TRUETRACK TEST STRIPS) Test blood sugars twice daily. blood-glucose meter(TRUETRACK BLOOD GLUCOSE SYSTEM KIT) Test glucose as directed blood-glucose control, low(TRUETRACK GLUCOSE SOLN) Test controls as needed LANCETS Test blood sugars once daily, 250.00, non insulin dep No current facility-administered medications for this visit. ALLERGIES No Known Allergies PAST SURGICAL HISTORY Procedure Laterality Date APPENDECTOMY HX 80s CATARACT EXTRACTION HX Bilateral 04/2022 EGD W/O BRSH SPEC VARICIES INJ 2019 with esophageal dilation LEG AMPUTATION HX Right 06/03/2022 BKA PAST SURGICAL HISTORY OF Lt thumb straightened Physical Exam: OBJECTIVE: Constitutional: Pt is a well developed 58 year old female who is alert, oriented, cooperative and in no apparent distress. Eyes: Following during examination. No redness or drainage. Respiratory: RR normal and nonlabored. Even breathing. No evidence of distress. Psychology: Patient is engaged during conversation. Normal affect and mood. Does not appear depressed or anxious. NVSI unchanged from previous visit. Dermatological: No open wounds to left foot. Nails 1-5 left are normal length Callus noted to left 1st and left 5th metatarsal Callus noted to left hallux No ulceraiton present Musculoskeletal/Orthopaedic: Right bka ASSESSMENT: (L84) Callus of foot (primary encounter diagnosis) (Z89.511) History of below-knee amputation of right lower extremity (HCC) (E11.42) Diabetic polyneuropathy associated with type 2 diabetes mellitus (HCC) PLAN: At this time, her ulcerations are healed. She just has small callus and this was reduced with dremmel Being that she is diabetic with neuropathy and has callus and has right bka, she is and should be candidate for diabetic shoes. Diabetic shoes were ordered Informed patient that it is important to avoid barefoot walking. Any walking especially when neuropathic places her at risk of ulceration or wounds Can f/u in 3 months for nail care 1 month if necessary for callus Kedar Long DPM * Miriam Del Angel RN - 08/01/2023 10:49 AM EDT Patient presents with: Left Foot - Established Patient, Follow Up, Diabetic Foot Ulcer Patient presents for left foot diabetic ulcer. States that 07/18/23 she had surgery to the right leg.She states that she is still on antibiotics from the surgery, but unsure of the name. Wearing Post op shoe to left. Right BKA. Callus to ulcer edges of left right later side of foot. Patient had bandaid to left hallux, using fungal cream on it. documented in this encounter[facility] Telephone encounter Note * Telephone Encounter - Yuli Sierra - 07/22/2023 4:39 PM EDT Spoke to patient and scheduled them with Dr. Riggs on 08/06/23 at 10:15 am location POB. Patient is agreeable to date, time, and location. Yuli Sierra July 22, 2023 4:39 PM [facility]05-06-[facility] Miscellaneous Notes* Telephone Encounter - Yuli Sierra - 07/22/2023 4:39 PM EDT Spoke to patient and scheduled them with Dr. Riggs on 08/06/23 at 10:15 am location POB. Patient is agreeable to date, time, and location. Yuli Sierra July 22, 2023 4:39 PM documented in this encounterSelect [facility]-02-2024 NoteHNO ID: [id number] Author: NAOMY GAUTHIER APRN.HOG KILLER Service: Nursing Author Type: Nurse Asphalt Layer Type: Anesthesia Procedure Notes Filed: 07/18/2023 13:27 Note Text: ANESTHESIOLOGY PROCEDURE NOTE Airway General Information Procedure Start Time/Medication Administration: 07/18/2023 1:13 PM Procedure End Time: 07/18/2023 1:26 PM Patient location during procedure: OR Timeout Performed Pre-procedure: timeout performed Consent Obtained: Yes Patient identity confirmed: arm band and patient sedated or unresponsive Staffing Anesthesiologist: Jasmyn Elder MD HOG KILLER: Naomy Gauthier APRN.HOG KILLER Performed by: HOG KILLER Indications and Patient Condition Indications for airway management: anesthesia Preoxygenated: yes anesthesia circuit Patient position: sniffing Method: asleep Cricoid Pressure: No Manual In-Line Stabilization: No Difficult Mask: No Final Airway Details Final airway type: supraglottic airway Number of attempts at approach: 2 Final Supraglottic Airway: i-gel Size 3 Seal Adequate: yes Failed airway: no Unrecognized esophageal intubation: no Airway not difficult SIGNATURE: Naomy Gauthier APRN.CRNA PATIENT NAME: Sanjuanita Jerry DATE: July 18, 2023 TIME: 1:26 PM [facility]: [id number] NoteHNO ID: [id number] Author: BHARATI RIGGS MD Service: ? Author Type: Physician Type: Progress Notes Filed: 07/16/2023 10:08 Note Text: Chief complaint: Follow-up right below-knee amputation. History of present illness: Patient is known to myself. History of below-knee amputation. Recently had MRI scan performed at outside institution. Here for follow-up regarding this MRI scan. States she continues to have 1 area that is open on the anterior aspect of her stump. For the patient's past medical history, past surgical history, medications, allergies, family history, social history, and review of systems please refer to medical history in chart. Physical exam: The patient is alert and oriented no acute distress. Answers questions appropriate. Has a normal affect. Examination right lower extremity shows 1 small opening over the anterior aspect of her tibia. Some irritation around the wound. No spreading cellulitis. Imaging: MRI scan report was reviewed. This demonstrated osteomyelitis and changes within the distal portion of the tibia as well as fluid around this. Assessment: #1 gas gangrene right lower extremity. #2 history of right below-knee imitation. #3 right tibial osteomyelitis. Plan: At this time we discussed her MRI findings. Because she continues to have this wound, I did recommend irrigation debridement of her osteomyelitis as well as revision below-knee amputation. This was discussed with the patient. Discussed the risk, benefits, complication, alternatives. Answered their questions. They wish to proceed. Electronic consent was obtained. We will obtain cultures intraoperatively. She will stay overnight in the hospital. We will get this scheduled in the near future. If she has any questions or concerns prior to next encounter, she will contact the office. Questions answered.[facility]04[facility]30[facility] History of Present illness Narrative* Bharati Riggs MD - 07/16/2023 9:59 AM EDT Chief complaint: Follow-up right below-knee amputation. History of present illness: Patient is known to myself. History of below-knee amputation. Recently had MRI scan performed at outside institution. Here for follow-up regarding this MRI scan. States she continues to have 1 area that is open on the anterior aspect of her stump. For the patient's past medical history, past surgical history, medications, allergies, family history, social history, and review of systems please refer to medical history in chart. Physical exam: The patient is alert and oriented no acute distress. Answers questions appropriate. Has a normal affect. Examination right lower extremity shows 1 small opening over the anterior aspect of her tibia. Some irritation around the wound. No spreading cellulitis. Imaging: MRI scan report was reviewed. This demonstrated osteomyelitis and changes within the distal portion of the tibia as well as fluid around this. Assessment: #1 gas gangrene right lower extremity. #2 history of right below- knee imitation. #3 right tibial osteomyelitis. Plan: At this time we discussed her MRI findings. Because she continues to have this wound, I did recommend irrigation debridement of her osteomyelitis as well as revision below-knee amputation. Thiswas discussed with the patient. Discussed the risk, benefits, complication, alternatives. Answered their questions. They wish to proceed. Electronic consent was obtained. We will obtain cultures intra operatively. She will stay overnight in the hospital. We will get this scheduled in the near future. If she has any questions or concerns prior to next encounter, she will contact the office. Questions answered. documented in this encounterSelect [facility]04-26-[facility]24 Progress note Author Jillian Livingston [facility] 2023 11:31am Note Date/Time July 11, 2023 4:2 2pm [facility] [address] [place] [address] Progress Note - Wound Care 07/11/23 1621 MR#: [id number] Acct: [id number] Name: SANJUANITA JERRY Rep #:[id number] : 1965 57 From: Jillian MARIE PCP: Dr. Art Herman MD Status :REG RCR Location: History of Present Illness Date of Service: 07/11/23 Chief Complaint: R BKA stump wound History of Wound: Sanjuanita Jerry is a 57 y/o female who presents to the wound healing center today for management of a right BKA stump wound. She is accompanied to the appointment today by her daughter who helps to supplement herhistory and also helps with her wound care. 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 At that time, they explored and washed out proximally in her thigh as well. Subsequently she initially had wound vac placed prior to secondary closure. She reports that the amputation site did ultimately heal fully and she was able to obtain a prosthetic. She had been doing very well withher prosthetic and getting back to work etc. Unfortunately about 1-2 months ago she developed a wound on her amputation stump due to the prosthetic rubbing in this area. She presented to the [facility] ER on 02/26/23 with concern of infection. She was admitted from 02/26-03/01 for IV antibiotics. Wound cultures were positive for staph aureus, blood cultures were negative. She was evaluated by orthopedics at that time as well. XR and CT scan performed during that admission were negative for signs of osteomyelitis. She was discharged with a course of Bactrim and referral here. At home, they have been doing daily dressing changes with iodoform and dry gauzedressing. Her daughter reports it has made significant improvement since her hospital stay. Subjective Subjective She is doing okay this week. No N/V, F/C, new/worsening drainage/erythema/warmth/pain at the wound. She continues to take Bactrim and is not having any adverse effects to this point. She does have intermittent diarrhea but this has been ongoing since she started Metformin years ago. Her appointment with Dr. Riggs, her orthopedic surgeon is early next week. She has not heard from ID to schedule an appointment. Objective Data Objective Data Vital Signs: Vital Signs Temp Pulse Resp BP O2 Del Method 97.4 F L 91 18 154/95 H Room Air 07/11/23 13:44 07/11/23 13:44 07/11/23 13:44 07/11/23 13:44 07/11/23 13:44 Oxygen Delivery Method Room Air Weight: 96 lb Body Mass Index (BMI) 18.7 Charges/Coding Procedures Integumentary 111xxx-113xx: 35427 Ani musc/fascia 20 sq cm/< Physical Exam Const alert, oriented x3, no apparent distress and average body habitus General Appearance: cooperative HEENT normocephalic, head/scalp atraumatic, hearing grossly normal bilaterally, external ears normal and external nose normal Eyes EOMs intact bilaterally General Eye: normal appearance of both eyes Resp Effort and Inspection: able to speak in complete sentences; Negative for labored, stridor, retractions, uses accessory muscles or audible wheezes Extremity Extremity Narrative: R BKA Skin Wounds: wounds noted Wound Narrative: Wound to R BKA stump which still probes to bone. Still with small amount of opaque yellowish drainage, no purulence. No surrounding erythema, warmth, tenderness. Psych mental status grossly normal Appearance: grossly normal Attitude: calm and engaged Activity / Motor Behavior: appropriate eye contact Judgement: judgement good Debridement Note Debridement Note Wound debrided: R BKA Laterality: Right Type of Debridement: Excisional debridement Anesthesia Used: 5% Lidocaine Gel Depth: Down to and including healthy tissue and to muscle Percentage of wound debrided: 100 Instrument Used: 3mm curette Tissue Removed: slough, devitalized tissue Severity: Necrosis of Muscle Amount of bleeding with debridement: Mild Bleeding Controlled with: Pressure Patient tolerated procedure: Patient tolerated procedure well Post-Debridement Measurements and Additional Note: Post-Debridement Measurements/Treatment - Nurse 1 - General Ulcer Assessment Start: 06/27/23 13:37 Freq: Status: Active Protocol: APRIL Activity Type Activity Date Activity User E-sign Co-sign Detail Recorded Client Recorded Date Recorded By Document 06/27/23 13:37 CP Desktop 06/27/23 13:39 CP Document 07/04/23 13:38 DL Desktop 07/04/23 13:44 DL Document 07/11/23 13:44 KW Desktop 07/11/23 13:50 KW 06/27/23 07/04/23 07/11/23 13:37 13:38 13:44 - Today's Visit Information Type of service Follow-up Visit Follow-up Visit Follow-up Visit (Physician/AUTO WASH BUFFER (Physician/AUTO WASH BUFFER (Physician/AUTO WASH BUFFER ) ) ) Arrival Mode Wheelchair Wheelchair Transfer Assistance Manual None Transfer Assist (Other) 1 Accompanied by daughter DAUGHTER Patient Identification Verified (Name & Yes Yes Yes ) Patient Requires Transmission-Based No No Precautions Finger Stick Blood Sugar(mg/dl) (if 160 169 indicated): Blood Sugar Stated by Stated by Patient Patient Height and Weight Body Mass Index (BMI) 18.7 18.7 18.7 BMI Classification Normal Normal Normal Vital Signs Temperature (97.8 F-99.1 F) 99.1 F 96.9 F L 97.4 F L Temperature Source Temporal Temporal Temporal Pulse Rate (60-100) 76 68 91 Pulse Location Monitor Monitor Monitor Respiratory Rate (12-18) 16 20 H 18 Respiratory rate source Observation Observation Observation Oxygen Delivery Method Room Air Room Air Blood Pressure (90/60-120/80) 146/79 H 126/71 H 154/95 H Blood Pressure Mean (mm Hg) 101 89 114 Source Monitor Monitor Monitor Position Sitting Semi-Fowlers Blood Pressure Location Right Arm Left Arm History Since Last Visit- (Skip if this is Patient's initial visit) Have you changed medications since your No No No last visit? Any new allergies or adverse reactions No No No Had a fall/change in ADL's that may No No No increase risk of falls Signs or symptoms of abuse and/or No No No neglect since last visit Have you been in the hospital since your No No No last visit? Has dressing in place as prescribed Yes Yes Yes Has compression in place as prescribed N/A Yes N/A Has offloadiing in place as prescribed N/A Yes N/A Experienced any changes in pain level or No No No management Left Footwear Surgical Shoe with pressure relief insole Right Footwear No Footwear Pain Scale: 0-10 Numeric Is Patient Pain Free? Yes Yes Yes - Nurse 1 - General Ulcer Measurement Start: 06/27/23 13:37 Freq: Status: Active Protocol: Activity Type Activity Date Activity User E-sign Co-sign Detail Recorded Client Recorded Date Recorded By Document 06/27/23 13:37 CP Desktop 06/27/23 13:39 CP Document 07/04/23 13:38 DL Desktop 07/04/23 13:44 DL Document 07/11/23 13:44 KW Desktop 07/11/23 13:50 KW 06/27/23 07/04/23 07/11/23 13:37 13:38 13:44 Wound Center Nurse 1 #1- R STUMP -Current Size (cm) - Length 0.3 0.3 0.2 -Current Size (cm) - Width 0.3 0.3 0.4 -Current Size (cm) - Depth 1.5 1.8 -Total Square Cm 0.09 0.09 0.08 -Photo Taken No -Exudate Amt Medium Medium Medium -Exudate Type Sanguineous Purulent Serosanguineous -Wound Margin Flat & Intact Distinct, Distinct, Outline Outline Attached Attached -Granulation Amt Small (1-33%) None Present (0 Large (67-100%) %) -Granulation Quality Belen Red -Slough/Fibrin Yes -Necrosis Amt Medium (34-66%) None Present (0 %) -Necrotic Tissue Type Adherent Slough -Structure Exposed N/A N/A -Texture (Edwina-wound Skin Appearance) No Abnormality Scarring Assessed -Moisture (Edwina-wound Skin Appearance) No Abnormality No Abnormality Assessed -Color (Edwina-wound Skin Appearance) No Abnormality No Abnormality Assessed -Temperature (Edwina-wound Skin No Abnormality No Abnormality No Abnormality Appearance) (Pt Warm) (Pt Warm) (Pt Warm) -Tenderness on Palpation (Edwina-wound No No Skin Appearance) -Ulcer Cleansing Rinsed/ Soap and Water Rinsed/ Irrigated with Irrigated with Saline Saline -Foul Odor after Cleansing No No -Anesthetic Used 5% Lidocaine 5% Lidocaine 5% Lidocaine Gel Gel Gel WC - Nurse 2 - General Ulcer CM Notes Start: 06/27/23 13:37 Freq: Status: Active Protocol: Activity Type Activity Date Activity User E-sign Co-sign Detail Recorded Client Recorded Date Recorded By Document 06/27/23 14:26 Desktop 06/27/23 14:30 Document 07/04/23 13:52 Desktop 07/04/23 13:53 Document 07/11/23 14:49 Desktop 07/11/23 14:53 06/27/23 07/04/23 07/11/23 14:26 13:52 14:49 Wound Center Nurse 2 #1- R STUMP -Time 14:26 13:52 14:49 -Correct Patient Yes Yes Yes -Correct Side, Site, Position Yes Yes Yes -Correct Procedure Yes Yes Yes -Procedure Performed Yes Yes Yes -Type of Procedure Debridement Debridement Debridement -Clinical Debridement Subcutaneous Subcutaneous Subcutaneous -Tissue Removed Subcutaneous Subcutaneous Subcutaneous -Post Debridement (cm) - Length 0.3 0.5 0.5 -Post Debridement (cm) - Width 0.4 0.3 0.4 -Post Debridement (cm) - Depth 2.4 2.5 2.0 -Total Square (Post) (cm) 0.12 0.15 0.20 -Area of Debridement (cm) - Length 0.3 0.5 0.5 -Area of Debridement (cm) - Width 0.4 0.3 0.4 -Total Square (Area) (cm) 0.12 0.15 0.20 -Tunneling No No No -Undermining/Tunneling No No No -Circular Undermining No No No -Wound/Ulcer Outcome Not Healed Not Healed Not Healed -Ulcer Cleansing Rinsed/ Rinsed/ Rinsed/ Irrigated with Irrigated with Irrigated with Saline Saline Saline -Foul Odor after Cleansing No No No -Bioengineered Tissue No No -Bleeding Controlled with Pressure Pressure Pressure -Treatment Response Procedure Procedure Procedure Tolerated Well Tolerated Well Tolerated Well -Debridement - Subq, 1st 20sq cm Yes Yes Yes Pain Scale: 0-10 Numeric Is Patient Pain Free? Yes Yes Yes - Nurse 3 - General Ulcer D/C NN Start: 06/27/23 13:37 Freq: Status: Active Protocol: Activity Type Activity Date Activity User E-sign Co-sign Detail Recorded Client Recorded Date Recorded By Document 06/27/23 14:52 DL Desktop 06/27/23 14:53 DL Document 07/04/23 14:12 DL Desktop 07/04/23 14:13 DL Document 07/11/23 15:02 [facility] Desktop 07/11/23 15:03 [facility] 06/27/23 07/04/23 07/11/23 14:52 14:12 15:02 Wound Care Center Nurse 3 #1- R STUMP -Ulcer Cleansing Rinsed/ Rinsed/ Rinsed/ Irrigated with Irrigated with Irrigated with Saline Saline Saline -Foul Odor after Cleansing No No No -Other Dressing dakins/ nugauze nugauze 03/21 DAKINS MOIST NUGAUZE -Primary Dressing Covered/Secured with Dry Gauze & Dry Gauze & Dry Gauze & Roll Gauze, Roll Gauze, Roll Gauze, Secured with Secured with Secured with Tape Tape Tape Right -Other PT REAPPLIED STUMP INSPECTOR AND MENDER Treatment Response Procedure Procedure Procedure Tolerated Well Tolerated Well Tolerated Well Pain Scale: 0-10 Numeric Is Patient Pain Free? 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 Erythema and warmth remains resolved. Still noting milky yellow drainage. No apparent foul odor. MRI did reveal evidence of acute on chronic osteomyelitis in the tibia with possible associated abscess. She has an appointment with her orthopedic surgeon next week. She is advised to obtain a copy of the MRI on a disc to bring to the appointment -- she just needs to contact medical records. She has been referred to ID but has not heard from them regarding an appt, will follow-up on this and potentially refer to [facility] where her orthopedic surgeon is located. We did discuss red flag signs and symptoms which should lead her to present to the ER sooner. Will continue Bactrim for now. Will continue to pack with dakins-soaked Nugauze and cover with foam-border or bulky dry dressing. Again encouraged to ensure that her packing the full depth of the wound. Continue to avoid use of prosthetic so as not to apply further pressure to the area. She will return to the wound center in 1 week. 07/12/23 1131 <Electronically signed by Jillian MARIE> Cosigner Signature (if applicable): CC: ~ Signed [facility] Work Phone: [phone] 733-394104-23-2024 Telephone encounter Note* Telephone Encounter - Felecia Navarro LPN - 07/09/2023 5:42 PM EDT Phoned patient and reviewed this message with her. Patient voiced understanding. [facility] Miscellaneous Notes* Telephone Encounter - Felecia Navarro LPN - 07/09/2023 5:42 PM EDT Phoned patient and reviewed this message with her. Patient voiced understanding. * Telephone Encounter - Erica Herman MD - 07/09/2023 2:55 PM EDT Patient was in for [facility] disability forms recently and I did hear back from Dr. Riggs about how longshe would be off of work. He is telling me that she will not be unable to walk or use her prosthetic for less than 12 months. If she cannot get the disability, but needs FMLA instead, please let me know. Form signed and is in my outbox. documented in this encounterSelect [facility] Telephone encounter Note * Telephone Encounter - Erica Herman MD - 07/09/2023 2:55 PM EDT Patient was in for [employer] disability forms recently and I did hear back from Dr. Riggs about how longshe would be off of work. He is telling me that she will not be unable to walk or use her prosthetic for less than 12 months. If she cannot get the disability, but needs FMLA instead, please let me know. Form signed and is in my outbox. [facility]04-18-[facility]24 Progress note Author Jillian Livingston [facility] July 04, 2023 2:10pm Note Date/Time July 04, 2023 2:1 0pm [facility] [address] [place] [address] Progress Note - Wound Care 07/04/23 1406 MR#: [id number] Acct: [id number] Name: SANJUANITA JERRY Rep #:[id number] : 1965 57 From: Jillian MARIE PCP: Dr. Art Herman MD Status :REG RCR Location: History of Present Illness Date of Service: 07/04/23 Chief Complaint: R BKA stump wound History of Wound: Sanjuanita Jerry is a 57 y/o female who presents to the wound healing center today for management of a right BKA stump wound. She is accompanied to the appointment today by her daughter who helps to supplement herhistory and also helps with her wound care. 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 At that time, they explored and washed out proximally in her thigh as well. Subsequently she initially had wound vac placed prior to secondary closure. She reports that the amputation site did ultimately heal fully and she was able to obtain a prosthetic. She had been doing very well withher prosthetic and getting back to work etc. Unfortunately about 1-2 months ago she developed a wound on her amputation stump due to the prosthetic rubbing in this area. She presented to the [facility] ER on 02/26/23 with concern of infection. She was admitted from 02/26-03/01 for IV antibiotics. Wound cultures were positive for staph aureus, blood cultures were negative. She was evaluated by orthopedics at that time as well. XR and CT scan performed during that admission were negative for signs of osteomyelitis. She was discharged with a course of Bactrim and referral here. At home, they have been doing daily dressing changes with iodoform and dry gauzedressing. Her daughter reports it has made significant improvement since her hospital stay. Subjective Subjective She is doing okay this week. No N/V, F/C, new/worsening drainage/erythema/warmth/pain at the wound. She has not yet heard from Dr. Franklin's office. I did call and leave a voicemail there. I also did fax the MRI results. Her appt to return is not for a few more weeks. Objective Data Objective Data Vital Signs: Vital Signs Temp Pulse Resp BP O2 Del Method 96.9 F L 68 20 H 126/71 H Room Air 07/04/23 13:38 07/04/23 13:38 07/04/23 13:38 07/04/23 13:38 06/27/23 13:37 Oxygen Delivery Method Room Air Weight: 96 lb Body Mass Index (BMI) 18.7 Charges/Coding Procedures Integumentary 111xxx-113xx: 20770 Ani musc/fascia 20 sq cm/< Physical Exam Const alert, oriented x3, no apparent distress and average body habitus General Appearance: cooperative HEENT normocephalic, head/scalp atraumatic, hearing grossly normal bilaterally, external ears normal and external nose normal Eyes EOMs intact bilaterally General Eye: normal appearance of both eyes Resp Effort and Inspection: able to speak in complete sentences; Negative for labored, stridor, retractions, uses accessory muscles or audible wheezes Extremity Extremity Narrative: R BKA Skin Wounds: wounds noted Wound Narrative: Wound to R BKA stump which still probes to bone. Still with small amount of opaque yellowish drainage, no purulence. No surrounding erythema, warmth, tenderness. Psych mental status grossly normal Appearance: grossly normal Attitude: calm and engaged Activity / Motor Behavior: appropriate eye contact Judgement: judgement good Debridement Note Debridement Note Wound debrided: R BKA Laterality: Right Type of Debridement: Excisional debridement Anesthesia Used: 5% Lidocaine Gel Depth: Down to and including healthy tissue and to muscle Percentage of wound debrided: 100 Instrument Used: 3mm curette Tissue Removed: slough, devitalized tissue Severity: Necrosis of Muscle Amount of bleeding with debridement: Mild Bleeding Controlled with: Pressure Patient tolerated procedure: Patient tolerated procedure well Post-Debridement Measurements and Additional Note: Post-Debridement Measurements/Treatment - Nurse 1 - General Ulcer Assessment Start: 06/27/23 13:37 Freq: Status: Active Protocol: APRIL Activity Type Activity Date Activity User E-sign Co-sign Detail Recorded Client Recorded Date Recorded By Document 06/27/23 13:37 CP Desktop 06/27/23 13:39 CP Document 07/04/23 13:38 DL Desktop 07/04/23 13:44 DL 06/27/23 07/04/23 13:37 13:38 - Today's Visit Information Type of service Follow-up Visit Follow-up Visit (Physician/AUTO WASH BUFFER (Physician/AUTO WASH BUFFER ) ) Arrival Mode Wheelchair Wheelchair Transfer Assistance Manual None Transfer Assist (Other) 1 Accompanied by daughter Patient Identification Verified (Name & Yes Yes ) Patient Requires Transmission-Based No No Precautions Finger Stick Blood Sugar(mg/dl) (if 160 169 indicated): Blood Sugar Stated by Stated by Patient Patient Height and Weight Body Mass Index (BMI) 18.7 18.7 BMI Classification Normal Normal Vital Signs Temperature (97.8 F-99.1 F) 99.1 F 96.9 F L Temperature Source Temporal Temporal Pulse Rate (60-100) 76 68 Pulse Location Monitor Monitor Respiratory Rate (12-18) 16 20 H Respiratory rate source Observation Observation Oxygen Delivery Method Room Air Blood Pressure (90/60-120/80) 146/79 H 126/71 H Blood Pressure Mean (mm Hg) 101 89 Source Monitor Monitor Position Sitting Blood Pressure Location Right Arm History Since Last Visit- (Skip if this is Patient's initial visit) Have you changed medications since your No No last visit? Any new allergies or adverse reactions No No Had a fall/change in ADL's that may No No increase risk of falls Signs or symptoms of abuse and/or No No neglect since last visit Have you been in the hospital since your No No last visit? Has dressing in place as prescribed Yes Yes Has compression in place as prescribed N/A Yes Has offloadiing in place as prescribed N/A Yes Experienced any changes in pain level or No No management Pain Scale: 0-10 Numeric Is Patient Pain Free? Yes Yes WC - Nurse 1 - General Ulcer Measurement Start: 06/27/23 13:37 Freq: Status: Active Protocol: Activity Type Activity Date Activity User E-sign Co-sign Detail Recorded Client Recorded Date Recorded By Document 06/27/23 13:37 CP Desktop 06/27/23 13:39 CP Document 07/04/23 13:38 DL Desktop 07/04/23 13:44 DL 06/27/23 07/04/23 13:37 13:38 Wound Center Nurse 1 #1- R STUMP -Current Size (cm) - Length 0.3 0.3 -Current Size (cm) - Width 0.3 0.3 -Current Size (cm) - Depth 1.5 1.8 -Total Square Cm 0.09 0.09 -Photo Taken No -Exudate Amt Medium Medium -Exudate Type Sanguineous Purulent -Wound Margin Flat & Intact Distinct, Outline Attached -Granulation Amt Small (1-33%) None Present (0 %) -Granulation Quality Belen -Slough/Fibrin Yes -Necrosis Amt Medium (34-66%) None Present (0 %) -Necrotic Tissue Type Adherent Slough -Structure Exposed N/A N/A -Texture (Edwina-wound Skin Appearance) No Abnormality Scarring -Moisture (Edwina-wound Skin Appearance) No Abnormality No Abnormality -Color (Edwina-wound Skin Appearance) No Abnormality No Abnormality -Temperature (Edwina-wound Skin No Abnormality No Abnormality Appearance) (Pt Warm) (Pt Warm) -Tenderness on Palpation (Edwina-wound No Skin Appearance) -Ulcer Cleansing Rinsed/ Soap and Water Irrigated with Saline -Foul Odor after Cleansing No No -Anesthetic Used 5% Lidocaine 5% Lidocaine Gel Gel WC - Nurse 2 - General Ulcer CM Notes Start: 06/27/23 13:37 Freq: Status: Active Protocol: Activity Type Activity Date Activity User E-sign Co-sign Detail Recorded Client Recorded Date Recorded By Document 06/27/23 14:26 GM Desktop 06/27/23 14:30 GM Document 07/04/23 13:52 GM Desktop 07/04/23 13:53 GM 06/27/23 07/04/23 14:26 13:52 Wound Center Nurse 2 #1- R STUMP -Time 14:26 13:52 -Correct Patient Yes Yes -Correct Side, Site, Position Yes Yes -Correct Procedure Yes Yes -Procedure Performed Yes Yes -Type of Procedure Debridement Debridement -Clinical Debridement Subcutaneous Subcutaneous -Tissue Removed Subcutaneous Subcutaneous -Post Debridement (cm) - Length 0.3 0.5 -Post Debridement (cm) - Width 0.4 0.3 -Post Debridement (cm) - Depth 2.4 2.5 -Total Square (Post) (cm) 0.12 0.15 -Area of Debridement (cm) - Length 0.3 0.5 -Area of Debridement (cm) - Width 0.4 0.3 -Total Square (Area) (cm) 0.12 0.15 -Tunneling No No -Undermining/Tunneling No No -Circular Undermining No No -Wound/Ulcer Outcome Not Healed Not Healed -Ulcer Cleansing Rinsed/ Rinsed/ Irrigated with Irrigated with Saline Saline -Foul Odor after Cleansing No No -Bioengineered Tissue No No -Bleeding Controlled with Pressure Pressure -Treatment Response Procedure Procedure Tolerated Well Tolerated Well -Debridement - Subq, 1st 20sq cm Yes Yes Pain Scale: 0-10 Numeric Is Patient Pain Free? Yes Yes - Nurse 3 - General Ulcer D/C NN Start: 06/27/23 13:37 Freq: Status: Active Protocol: Activity Type Activity Date Activity User E-sign Co-sign Detail Recorded Client Recorded Date Recorded By Document 06/27/23 14:52 DL Desktop 06/27/23 14:53 DL 06/27/23 14:52 Wound Care Center Nurse 3 #1- R STUMP -Ulcer Cleansing Rinsed/ Irrigated with Saline -Foul Odor after Cleansing No -Other Dressing dakins/ nugauze -Primary Dressing Covered/Secured with Dry Gauze & Roll Gauze, Secured with Tape Treatment Response Procedure Tolerated Well Pain Scale: 0-10 Numeric Is Patient Pain Free? 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 The outside diameter has decreased in size. Erythema and warmth remains resolved. Still noting milky yellow drainage. No apparent foul odor. MRI did reveal evidence of acute on chronic osteomyelitis in the tibia with possible associated abscess. I have left a message at her orthopedic surgeon's office and faxed these results over, I will resend. I think she will need to be seen sooner as she will need operative debridement to full address this infection. She is currently clinically stable so will manage on outpatient basis; however, we did discuss red flag signs and symptoms which should lead herto present to the ER sooner. She has been referred to ID. Will continue Bactrim for now. I have encouraged her to contact the orthopedic office as well to see if she can f/u sooner. Will continue to pack with dakins-soaked Nugauze and cover with foam-border or bulky dry dressing. Again encouraged to ensure that her packing the full depth of the wound. Continue to avoid use of prosthetic so as not to apply further pressure to the area. She will return to the wound center in 1 week. 07/04/23 1410 <Electronically signed by Jillian MARIE> Cosigner Signature (if applicable): CC: ~ Signed [facility] Work Phone: [phone] History of Present illness Narrative* Emelyn Cee LPN - 07/04/2023 10:[address] Long, Sanjuanita was provided with post op shoe and impax insert, size S, and instructed/educated in its application, wear, and care. All questions were answered, and patient was able to demonstrate competence with the necessary skills to utilize the above equipment. Emelyn Cee LPN * Kedar Long - 07/04/2023 10:21 AM EDT Last saw pcp: 07/02/23 Subjective: Patient presents to clinic c/o painful toenails. They state that the nails are especially painful with shoe gear and pressure. Patient states that nails 1-5 left are painful. Patient alsohas painful callus of left foot. Patient has history of right bka and has slow healing. Is scheduled to see ortho later this month for discussion on further treatment options. . No other pedal complai nts at this time. Patient states no change in medications or medical history since last visit. Objective: Patient presents to clinic nonambulatory Vasc: DP and PT pulses are palpable to left foot. CFT is less than 5 seconds bilateral. Skin temperature is warm to cool proximal to distal left. There is no edema or varicosities noted. Neuro: Protective sensation is decreased to the foot and toes when tested with the 5.07 SWM left. Vibratory sensation is absent at the hallux IPJ left Derm: Nails 1-5 left are discolored-yellow, thick, crumbly, dystrophic and with subungal debris. Skin is of normal turgor, texture and hair growth is decresaed left. There are callus to left hallux, left 1st metatarsal and left 5th metatarsal. Following debridement of callus, there is superficial 1mm x 1 mm ulceration of left 5th metatarsal. No signs of infection. Ortho: right bka Assessment: (L84) Callus of foot (primary encounter diagnosis) (E08.621, L97.401) Diabetic ulcer of midfoot associated with diabetes mellitus due to underlying condition, limited to breakdown of skin, unspecified laterality ([facility]) (B35.1) Onychomycosis (Z89.511) History of below-knee amputation of right lower extremity ([facility]) (E11.42) Diabetic polyneuropathy associated with type 2 diabetes mellitus ([facility]) Plan: Patient was seen and evaluated. Callus of left hallux and left 1st metatarsal reduced with 15 blade, dremmel and tissue nippers. Recommend lotion and use of diabetic shoe. Patient has history of bka and has neuropathy related to diabetes and has callus. Would benefit from diabetic shoe. Diabetic shoe ordered. She has very superficial ulceration of left 5th metatarsal. All nonviable tissue was debrided with 15 blade. Total debridement was 1 mm x 1 mm. Will treat with topical antibiotic and surgical shoe and offloading insert. Discussed surgical shoe vs use of powerstep insert with offloading. Certainly asurgical shoe places her at risk of falling but will give more offloading of left 5th metatarsal. I discussed both options. This patient freely elects to pursue surgical shoe. Will get baseline xray of left foot. Discussed right bka and slow healing wound. Defer to ortho. Recommend smoking cessation. Toenails 1-5 left debrided. Q7 modifier Patient was instructed on the continued importance of diabetic foot care along with proper diet andkeeping their blood sugar under control to prevent complications. She has neuropathy. Stressed the need for daily foot inspection. Patient is to RTC in 2 weeks JEREMIAH Lewis DPM * Miriam Del Angel RN - 07/04/2023 10:13 AM EDT Patient presents with: Left Foot - Established Patient, Follow Up, Diabetic Foot Care Patient presents for diabetic foot/nail care. Hx of Right BKA. DEXTER 04/04/23. documented in this encounterSelect [facility]04-18-[facility]24 Instructions* Patient Instructions* Kedar Long - 07/04/2023 10:41 AM EDT You have a very superficial wound, left foot fifth metatarsal. Apply topical antibiotic cream dailywith band aide Use surgical shoe with offloading insert. Use caution when using. Make sure to use wheel chair or walker. Apply lotion to foot daily. Diabetes Foot Care Instructions When you have diabetes, proper foot care is very important. Poor foot care may lead to amputation of a foot or leg. As a person with diabetes, you are more vulnerable to foot problems, because diabetes can damage your nerves and reduce blood flow to your feet. Here are some diabetes foot care tips to follow: Wash and Dry Your Feet Daily Use mild soaps Use warm water Pat your skin dry; do not rub. Thoroughly dry your feet. After washing, use lotion on your feet to prevent cracking. Do not put lotion between your toes. Examine Your Feet Each Day Check the tops and bottoms of your feet. Have someone else look at your feet if you cannot see them. Check for dry, cracked skin. Look for blisters, cuts, scratches, or other sores. Check for redness, increased warmth, or tenderness when touching any area of your feet. Check for ingrown toenails, corns, and calluses. If you get a blister or sore from your shoes, do not "pop" it. Apply a bandage and wear a differentpair of shoes. Take Care of Your Toenails Cut toenails after bathing, when they are soft. Cut toenails straight across and smooth with a nail file. Avoid cutting into the corners of toes. Do not cut cuticles. If you have neuropathy (or decreased sensation in your feet) a neonatal intensive care nurse should always cut your toenails. Be Careful When Exercising Walk and exercise in comfortable shoes. Do not exercise when you have open sores on your feet. Protect Your Feet With Shoes and Socks Never go barefoot. Always protect your feet by wearing shoes or hard-soled slippers or footwear. Avoid shoes with high heels and pointed toes. Avoid shoes that expose your toes or heels (such as open-toed shoes or sandals). These types of shoes increase your risk for injury and potential infections. Try on new footwear with the type of socks you usually wear. Do not wear new shoes for more than an hour at a time. Change your socks daily. Look and feel inside your shoes before putting them on to make sure there are no foreign objects orrough areas. Avoid tight socks. Wear natural-fiber socks (cotton, wool, or a cotton-wool blend). Wear special shoes if your health care provider recommends them. Wear shoes/boots that will protect your feet from various weather conditions (cold, moisture, etc.). Make sure your shoes fit properly. If you have neuropathy (nerve damage), you may not notice that your shoes are too tight. Perform the "footwear test" described below. Footwear Test Use this simple test to see if your shoes fit correctly: Stand on a piece of paper. (Make sure you are standing and not sitting, because your foot changes shape when you stand.) Trace the outline of your foot. Trace the outline of your shoe. Compare the tracings: Is the shoe too narrow? Is your foot crammed into the shoe? The shoe should be at least 1/2 inch longer than your longest toe and as wide as your foot. Proper Shoe Choices The following types of shoes are best for people with diabetes Closed toes and heels Leather uppers without a seam inside At least 1/2 inch extra space at the end of your longest toe Inside of shoe should be soft with no rough areas Outer sole should be made of stiff material Shoes should be at least as wide as your feet Tips for Foot Care in Diabetes Don't wait to treat a minor foot problem if you have diabetes. Follow your health care provider's guidelines and first aid guidelines. Report foot injuries and infections to your health care provider immediately. Check water temperature with your elbow, not your foot. Do not use a heating pad on your feet. Do not cross your legs. Do not self-treat your corns, calluses, or other foot problems. Go to your health care provider or neonatal intensive care nurse to treat these conditions. documented in this [facility]Select [facility] History of Present illness Narrative* Erica Herman MD - 07/02/2023 2:06 PM EDT Chief Complaint Patient presents with: Disability paperwork HPI Sanjuanita Jerry is a 57 year old female who presents here today for Above Complaints.. Patient here today to complete paperwork for disability. 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 He has been seeing her recently forwound over anterior aspect of her stump from wearing prosthesis. Being managed by wound center as well. MRI on 06/26 showed osteomyelitis of tibia stump and abscess. Patient states that she has a follow up with Dr. Riggs on 07/15 to discuss surgery/debridement. Wound care has her on abx, but she cannot recall which one. Changing dressing/packing on a nightly basis and following up with wound care weekly on . 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 With this new infection, she has been unable to wear her prosthesis. Last day she was able to work was 04/19/2023. She has not been told how long she be restricted from wearing her prosthesis. Still smoking 1/2 pack per day. Not ready to quit at this time. Past medical history, appointments, medications, allergies reviewed. Previous Medical History PAST MEDICAL HISTORY Diagnosis Date Cataracts, bilateral s/p surgery in 2021 at [facility] Coronary artery calcification 11/[address] chest Diabetic neuropathy (HCC) Gas gangrene of lower extremity (HCC) Goiter, unspecified 09/29/2007 PAD (peripheral artery disease) ([facility]) S/P BKA (below knee amputation) ([facility]) 05/31/2022 right Tobacco use disorder Type II or unspecified type diabetes mellitus without mention of complication, uncontrolled Endo: Dr. Madrigal Previous Surgical History PAST SURGICAL HISTORY Procedure Laterality Date APPENDECTOMY HX 80s CATARACT EXTRACTION HX Bilateral 04/2022 EGD W/O BRSH SPEC VARICIES INJ 2018 with esophageal dilation LEG AMPUTATION HX Right 06/03/2022 BKA PAST SURGICAL HISTORY OF Lt thumb straightened Family History FAMILY HISTORY Problem Relation Age of Onset Stroke Mother Ischemic Heart Disease Mother Diabetes Mother Hypertension Mother Stroke Father Ischemic Heart Disease Father Hypertension Father Diabetes Father Kidney failure Sister Ischemic Heart Disease Brother Massive AR at age 38 Breast Cancer Paternal Grandmother Patient Allergies ALLERGIES No Known Allergies Current Medications Current Outpatient Medications on File Prior to Visit Medication Sig aspirin, enteric coated (ASPIRIN, ENTERIC COATED) 81 mg EC tablet Take 81 mg by mouth once daily. albuterol HFA (PROVENTIL HFA, VENTOLIN HFA) 90 mcg/actuation inhaler Inhale 2 Puffs as instructed every 4 hours as needed for wheezing/shortness of breath. lisinopril (ZESTRIL) 5 mg tablet Take 1 tablet by mouth once daily. Cholecalciferol, Vitamin D3, (VITAMIN D) 25 mcg (1,000 unit) cap Take 2 capsules by mouth once daily. Taking 2,000 units daily urea (CARMOL) 40 % Apply to affected area once daily. atorvastatin (LIPITOR) 40 mg tablet Take 1 tablet by mouth daily at bedtime. For cholesterol. metFORMIN (GLUCOPHAGE) 1,000 mg tablet Take 1,000 mg by mouth twice daily with meals. glipiZIDE (GLUCOTROL) 5 mg tablet Take 5 mg by mouth once daily. ferrous sulfate 325 mg (65 mg iron) tablet Take 325 mg by mouth. blood sugar diagnostic(TRUETRACK TEST STRIPS) Test blood sugars twice daily. (Patient not taking: Reported on 09/25/2022) blood-glucose meter(TRUETRACK BLOOD GLUCOSE SYSTEM KIT) Test glucose as directed (Patient not taking: Reported on 09/25/2022) blood-glucose control, low(TRUETRACK GLUCOSE SOLN) Test controls as needed (Patient not taking: Reported on 09/25/2022) LANCETS Test blood sugars once daily, 250.00, non insulin dep (Patient not taking: Reported on 09/25/2022) No current facility-administered medications on file prior to visit. Social History Social History Tobacco Use Smoking status: Every Day Packs/day: 0.50 Years: 43.00 Additional pack years: 0.00 Total pack years: 21.50 Types: Cigarettes Start date: 03/18/1979 Smokeless tobacco: Never Vaping Use Vaping Use: Never used Substance Use Topics Alcohol use: No Drug use: No Review of Symptoms REVIEW OF SYSTEMS GENERAL: No weight loss, malaise or fevers RESPIRATORY: Negative for cough, hemoptysis, wheezing, COPD, dyspnea or shortness of breath CARDIOVASCULAR: Negative for chest pain, leg swelling, hypertension, CHF or palpitations GI: No nausea, vomiting, or diarrhea SKIN: Patient admits to yellow drainage from the stump with small wound over right stump. Denies erythema, swelling, warmth to touch, pain. EXAM: BP 126/68 Pulse 94 Resp 16 LMP 09/16/2007 SpO2 97% General Appearance: Well appearing, alert, in no acute distress, well-hydrated, well nourished. Skin: no erythema or active drainage around abscess site on right stump. Wrapped with guaze which appears clean. Lungs: Lungs clear to auscultation. No wheezing, rhonchi, rales.. Heart: RRR without murmur, gallop, or rubs. No ectopy. Abdomen: Normal abdominal exam, Abdomen soft, non-tender. Bowel sounds normal. No masses, organomegaly. Extremities: Right BKA. Left LE without edema or deformities. . Health Maintenance List Urine Albumin:Creatinine Ratio due on 12/04/2009 Dilated Retinal Exam due on 04/02/2010 Colorectal Cancer Screening Never done Shingrix Vaccine(1 of 2) Never done HbA1C due on 08/02/2023 Hepatitis B Vaccine(1 of 3 - 19+ 3-dose series) due on 02/02/2024 Hepatitis C Screening due on 02/02/2024 HIV Screening due on 02/02/2024 Covid-19 Vaccine( season) due on 02/02/2024 Influenza Vaccine(Season Ended) due on 11/17/2023 Mammogram Screening due on 12/07/2023 Lung Cancer Screening due on 12/07/2023 LDL Cholesterol due on 02/02/2024 Diabetic Foot Exam due on 02/02/2024 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 Chronic Disease Visit due on 03/06/2024 BP Controlled (<130/80) due on 06/16/2024 Pap Testing due on 12/11/2027 HPV Testing due on 12/11/2027 DTaP,Tdap,Td Vaccine(2 - Td or Tdap) due on 02/01/2033 Pneumococcal Vaccine Completed ASSESSMENT/PLAN: 1. Below-knee amputation of right lower extremity, sequela (HCC) - ICD9: 905.9, ICD10: S88.111S (primary diagnosis) Patient with right BKA 05/2022 with new osteomyelitis of tibia and abscess. Will have her continue abx as prescribed by wound care and f/u with orthopedic surgeon as scheduled. 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 If so, will fill out form appropriately and mail in. 2. Acute osteomyelitis of right tibia (HCC) - ICD9: 730.06, ICD10: M86.161 See above. 3. Tobacco use disorder - ICD9: 305.1, ICD10: F17.200 - Cessation encouraged. - Physiologic and physical aspects of tobacco addiction as well as strategies for quitting were discussed. - Counseling was given focusing on the harmful effects of this addiction especially given the patient's medical condition(s) which will be worsened because of the chemicals in tobacco. 4. Disability examination - ICD9: V68.01, ICD10: Z02.71 I spent a total of 30 minutes on the date of the service which included preparing to see the patient, [id number] patient care, completing clinical documentation, obtaining and/or reviewing separately obtained history, performing a medically appropriate examination, counseling and educating the pat ient/family/caregiver, and communicating with other HCPs (not separately reported). Erica Herman MD documented in this encounterSelect [facility] Miscellaneous Notes* Telephone Encounter - Felecia Navarro LPN - 07/01/2023 3:23 PM EDT Phoned patient to see if she could come tomorrow so PCP can review condition and disability form with her. Patient agreeable to 07/02/23 at 2pm * Telephone Encounter - Erica Herman MD - 07/01/2023 2:06 PM EDT In order for me to complete the forms, she would need an office visit to discuss disabling condition. I have openings tomorrow afternoon if they would like. * Telephone Encounter - Victoria Polanco RN - 07/01/2023 10:53 AM EDT Cathy calls back and states that this is not federal disability paperwork. Patient did not pay into social security. Patient paid into the [employer] ([employer]). Cathy states that if provider is not going to fill out paperwork, to fax back blank paperwork with note stating that provider is not going to fill out paperwork. Cathy is asking for copies of requested medical paperwork. Victoria Polanco RN * Telephone Encounter - Wan Witt MA - 06/29/2023 10:09 AM EDT TC to pt. Unable to reach and no option to LM. Please try again later. * Telephone Encounter - Erica Herman MD - 06/29/2023 8:21 AM EDT I have placed referral order as requested. I would recommend going onto ssa.gov website to look into process for applying for social security/disability and discuss with specialist since I have not evaluated her for this. * Telephone Encounter - Felecia Navarro LPN - 06/28/2023 3:58 PM EDT Phoned patient and reviewed provider's message with her. She is unsure if federal disability or not. She stated she went to Social Security to file and they advised her she needed to file with [employer]. Patient states she is flustered because she isn't sure if she is doing things correctly but can't work because of the wound since she can't wear he prosthesis and is she can't work she has no income. Will continue to try to reach [facility] rep to get additional answers. Could patient get referral for [employer] so patient can get assistance with completing her paperwork? * Telephone Encounter - Felecia Navarro LPN - 06/28/2023 8:44 AM EDT Call placed to [facility] rep. Cathy Bettencourt and message left to confirm if this if federal disability paperwork that she forwarded to our office. * Telephone Encounter - Erica Herman MD - 06/27/2023 1:23 PM EDT I have not seen her to discuss disability and I do not do federal disability if that is what she isseeking. I would refer her to the ssa.gov website for this. It looks like she has been seen by a surgeon recently. If she is requiring disability for one of their services, she can see if they would be able to fill this out for her. * Telephone Encounter - Felecia Navarro LPN - 06/27/2023 12:55 PM EDT Type of form: Long-term Disability Form received via fax When form is completed, Fax form to Cathy Bettencourt at [phone] Form has been forwarded to Physician Desk: Dr. Herman for review Felecia Navarro LPN documented in this encounterSelect [facility]04-15-2024 Miscellaneous Notes* Telephone Encounter - Georgia Reddy MSW - 07/01/2023 10:05 AM EDT Sw received referral regarding financial assistance needs. Patient reports that she is working on applying for disability through employer and is doing "okay" with completing forms. Patient reports that she is also doing "okay" right now with paying her bills. Patient notes that she has Medicaid at this time. Patient has questions about Medicare and disability. Sw noted that she can send patient Medicare SSA resource guide that talks about being on SSA disability for 2 years and then Medicare eligibility. Patient notes that she would like Sw to mail her resource guide to her home that talks about process. Sw confirmed patient address and will mail info to patient home. documented in this encounterSelect [facility]04-12-2024 Progress note Author Jillian Livingston [facility] June 28, 2023 1:45pm Note Date/Time June 27, 2023 5:0 7pm [facility] [address] [place] [address] Progress Note - Wound Care 06/27/23 1707 MR#: [id number] Acct: [id number] Name: SANJUANITA JERRY Rep #:[id number] : 1965 57 From: Jillian MARIE PCP: Dr. Art Herman MD Status :REG RCR Location: History of Present Illness Date of Service: 06/27/23 Chief Complaint: R BKA stump wound History of Wound: Sanjuanita Jerry is a 57 y/o female who presents to the wound healing center today for management of a right BKA stump wound. She is accompanied to the appointment today by her daughter who helps to supplement herhistory and also helps with her wound care. 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 At that time, they explored and washed out proximally in her thigh as well. Subsequently she initially had wound vac placed prior to secondary closure. She reports that the amputation site did ultimately heal fully and she was able to obtain a prosthetic. She had been doing very well withher prosthetic and getting back to work etc. Unfortunately about 1-2 months ago she developed a wound on her amputation stump due to the prosthetic rubbing in this area. She presented to the [facility] ER on 02/26/23 with concern of infection. She was admitted from 02/26-03/01 for IV antibiotics. Wound cultures were positive for staph aureus, blood cultures were negative. She was evaluated by orthopedics at that time as well. XR and CT scan performed during that admission were negative for signs of osteomyelitis. She was discharged with a course of Bactrim and referral here. At home, they have been doing daily dressing changes with iodoform and dry gauzedressing. Her daughter reports it has made significant improvement since her hospital stay. Subjective Subjective She completed MRI yesterday. No new N/V, F/C. No new redness, warmth around the wound. Continue to have drainage but daughter feels it is stable. No new pain. Objective Data Objective Data Vital Signs: Vital Signs Temp Pulse Resp BP O2 Del Method 99.1 F 76 16 146/79 H Room Air 06/27/23 13:37 06/27/23 13:37 06/27/23 13:37 06/27/23 13:37 06/27/23 13:37 Oxygen Delivery Method Room Air Weight: 96 lb Body Mass Index (BMI) 18.7 Charges/Coding Procedures Integumentary 111xxx-113xx: 04683 Ani musc/fascia 20 sq cm/< Physical Exam Const alert, oriented x3, no apparent distress and average body habitus General Appearance: cooperative HEENT normocephalic, head/scalp atraumatic, hearing grossly normal bilaterally, external ears normal and external nose normal Eyes EOMs intact bilaterally General Eye: normal appearance of both eyes Resp Effort and Inspection: able to speak in complete sentences; Negative for labored, stridor, retractions, uses accessory muscles or audible wheezes Extremity Extremity Narrative: R BKA Skin Wounds: wounds noted Wound Narrative: Wound to R BKA stump which still probes to bone. I am able to express yellow- white opaque drainage and a scant amount of thick white drainage. The erythema and warmth in the periwound remains resolved. The outer diameter of the wound isdecreasing, the depth is measuring less but as noted still probing to bone. Psych mental status grossly normal Appearance: grossly normal Attitude: calm and engaged Activity / Motor Behavior: appropriate eye contact Judgement: judgement good Debridement Note Debridement Note Wound debrided: R BKA Laterality: Right Type of Debridement: Excisional debridement Anesthesia Used: 5% Lidocaine Gel Depth: Down to and including healthy tissue and to muscle Percentage of wound debrided: 100 Instrument Used: 3mm curette Tissue Removed: slough, devitalized tissue Severity: Necrosis of Muscle Amount of bleeding with debridement: Mild Bleeding Controlled with: Pressure Patient tolerated procedure: Patient tolerated procedure well Post-Debridement Measurements and Additional Note: Post-Debridement Measurements/Treatment SUE - Nurse 1 - General Ulcer Assessment Start: 06/27/23 13:37 Freq: Status: Active Protocol: APRIL Activity Type Activity Date Activity User E-sign Co-sign Detail Recorded Client Recorded Date Recorded By Document 06/27/23 13:37 CP Desktop 06/27/23 13:39 CP 06/27/23 13:37 WC - Today's Visit Information Type of service Follow-up Visit (Physician/AUTO WASH BUFFER ) Arrival Mode Wheelchair Transfer Assistance Manual Transfer Assist (Other) 1 Accompanied by daughter Patient Identification Verified (Name & Yes ) Patient Requires Transmission-Based No Precautions Finger Stick Blood Sugar(mg/dl) (if 160 indicated): Blood Sugar Stated by Patient Height and Weight Body Mass Index (BMI) 18.7 BMI Classification Normal Vital Signs Temperature (97.8 F-99.1 F) 99.1 F Temperature Source Temporal Pulse Rate (60-100) 76 Pulse Location Monitor Respiratory Rate (12-18) 16 Respiratory rate source Observation Oxygen Delivery Method Room Air Blood Pressure (90/60-120/80) 146/79 H Blood Pressure Mean (mm Hg) 101 Source Monitor Position Sitting Blood Pressure Location Right Arm History Since Last Visit- (Skip if this is Patient's initial visit) Have you changed medications since your No last visit? Any new allergies or adverse reactions No Had a fall/change in ADL's that may No increase risk of falls Signs or symptoms of abuse and/or No neglect since last visit Have you been in the hospital since your No last visit? Has dressing in place as prescribed Yes Has compression in place as prescribed N/A Has offloadiing in place as prescribed N/A Experienced any changes in pain level or No management Pain Scale: 0-10 Numeric Is Patient Pain Free? Yes SUE Phillips Nurse 1 - General Ulcer Measurement Start: 06/27/23 13:37 Freq: Status: Active Protocol: Activity Type Activity Date Activity User E-sign Co-sign Detail Recorded Client Recorded Date Recorded By Document 06/27/23 13:37 CP Desktop 06/27/23 13:39 CP 06/27/23 13:37 Wound Center Nurse 1 #1- R STUMP -Current Size (cm) - Length 0.3 -Current Size (cm) - Width 0.3 -Current Size (cm) - Depth 1.5 -Total Square Cm 0.09 -Photo Taken No -Exudate Amt Medium -Exudate Type Sanguineous -Wound Margin Flat & Intact -Granulation Amt Small (1-33%) -Granulation Quality Belen -Slough/Fibrin Yes -Necrosis Amt Medium (34-66%) -Necrotic Tissue Type Adherent Slough -Structure Exposed N/A -Texture (Edwina-wound Skin Appearance) No Abnormality -Moisture (Edwina-wound Skin Appearance) No Abnormality -Color (Edwina-wound Skin Appearance) No Abnormality -Temperature (Edwina-wound Skin No Abnormality Appearance) (Pt Warm) -Tenderness on Palpation (Edwina-wound No Skin Appearance) -Ulcer Cleansing Rinsed/ Irrigated with Saline -Foul Odor after Cleansing No -Anesthetic Used 5% Lidocaine Gel WC - Nurse 2 - General Ulcer CM Notes Start: 06/27/23 13:37 Freq: Status: Active Protocol: Activity Type Activity Date Activity User E-sign Co-sign Detail Recorded Client Recorded Date Recorded By Document 06/27/23 14:26 Desktop 06/27/23 14:30 06/27/23 14:26 Wound Center Nurse 2 -Time 14:26 -Correct Patient Yes -Correct Side, Site, Position Yes -Correct Procedure Yes -Procedure Performed Yes -Type of Procedure Debridement -Clinical Debridement Subcutaneous -Tissue Removed Subcutaneous -Post Debridement (cm) - Length 0.3 -Post Debridement (cm) - Width 0.4 -Post Debridement (cm) - Depth 2.4 -Total Square (Post) (cm) 0.12 -Area of Debridement (cm) - Length 0.3 -Area of Debridement (cm) - Width 0.4 -Total Square (Area) (cm) 0.12 -Tunneling No -Undermining/Tunneling No -Circular Undermining No -Wound/Ulcer Outcome Not Healed -Ulcer Cleansing Rinsed/ Irrigated with Saline -Foul Odor after Cleansing No -Bioengineered Tissue No -Bleeding Controlled with Pressure -Treatment Response Procedure Tolerated Well -Debridement - Subq, 1st 20sq cm Yes Pain Scale: 0-10 Numeric Is Patient Pain Free? Yes - Nurse 3 - General Ulcer D/C NN Start: 06/27/23 13:37 Freq: Status: Active Protocol: Activity Type Activity Date Activity User E-sign Co-sign Detail Recorded Client Recorded Date Recorded By Document 06/27/23 14:52 DL Desktop 06/27/23 14:53 DL 06/27/23 14:52 Wound Care Center Nurse 3 #1- R STUMP -Ulcer Cleansing Rinsed/ Irrigated with Saline -Foul Odor after Cleansing No -Other Dressing dakins/ nugauze -Primary Dressing Covered/Secured with Dry Gauze & Roll Gauze, Secured with Tape Treatment Response Procedure Tolerated Well Pain Scale: 0-10 Numeric Is Patient Pain Free? 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 The outside diameter has decreased in size. Erythema and warmth remains resolved. Still noting milky yellow drainage. No apparent foul odor. MRI did reveal evidence of acute on chronic osteomyelitis in the tibia with possible associated abscess. I have left a message at her orthopedic surgeon's office and faxed these results over. I think she will need to be seen sooner as she will need operative debridement to full address this infection. She is currently clinically stable so will manage on outpatient basis; however, we did discuss red flag signs and symptoms which should lead her to present to the ER sooner. Will also refer to ID. Will continue Bactrim for now. Will continue to pack with dakins-soaked Nugauze and cover with foam-border or bulky dry dressing. Again encouraged to ensure that her packing the full depth of the wound to encourage healing from the inside out and to try to prevent the outside from healing over. Continue to avoid use of prosthetic so as not to apply further pressure to the area. She will return to the wound center in 1 week. 06/28/23 1345 <Electronically signed by Jillian MARIE> Cosigner Signature (if applicable): CC: ~ Signed [facility] Work Phone: [phone]) 264-334704-09-2024 NoteHNO ID: [id number] Author: BHARATI RIGGS MD Service: ? Author Type: Physician Type: Progress Notes Filed: 06/25/2023 08:17 Note Text: Chief complaint: Follow-up right below-knee amputation. History of present illness: Patient is well-known to myself. 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 Had developed a wound over the anterior aspect of her stump, over her tibia, from wearing her prosthesis. She has been seeing wound center. Present today stating she still has her wound. She is been going to the wound center. Has been on antibiotics. Denies any systemic symptoms. Has not been wearing her prosthesis. For the patient's past medical history, past surgical history, medications, allergies, family history, social history, and review of systems please refer to medical history in chart. Physical exam: The patient is alert and oriented in no acute distress. Answers questions appropriate present normal affect. Examination of the right lower extremity shows 1 small opening proximal to the incision over the bony prominence of her tibia. No surrounding erythema. This is packed with Mesalt. No appreciable abscess. Assessment: #1 gas gangrene right lower extremity. #2 below-knee amputation right lower extremity. Plan: At this time she will continue with the wound center. She does state that she has an MRI scan ordered and scheduled for tomorrow for her right lower extremity. This was ordered by her wound center provider. We will see what this shows. We did discuss the potential need for operation on her right lower extremity. This would involve irrigation debridement with closure of her wound. This will be done as an outpatient. Going to see her back in 3 weeks and we can discuss her next steps. We will also review the MRI scan at that time. If there is any questions or concerns prior to this encounter, they will contact the office. Questions answered.[facility]04-09-2024 History of Present illness Narrative* Bharati Riggs MD - 06/25/2023 8:07 AM EDT Chief complaint: Follow-up right below-knee amputation. History of present illness: Patient is well-known to myself. History of gas gangrene to right lowerextremity resulted in below-knee amputation. Had developed a wound over the anterior aspect of her stump, over her tibia, from wearing her prosthesis. She has been seeing wound center. Present today stating she still has her wound. She is been going to the wound center. Has been on antibiotics. Denies any systemic symptoms. Has not been wearing her prosthesis. For the patient's past medical history, past surgical history, medications, allergies, family history, social history, and review of systems please refer to medical history in chart. Physical exam: The patient is alert and oriented in no acute distress. Answers questions appropriate present normal affect. Examination of the right lower extremity shows 1 small opening proximal to the incision over the bony prominence of her tibia. No surrounding erythema. This is packed with Mesalt. No appreciable abscess. Assessment: #1 gas gangrene right lower extremity. #2 below-knee amputation right lower extremity. Plan: At this time she will continue with the wound center. She does state that she has an MRI scanordered and scheduled for tomorrow for her right lower extremity. This was ordered by her wound center provider. We will see what this shows. We did discuss the potential need for operation on her right lower extremity. This would involve irrigation debridement with closure of her wound. This will be done as an outpatient. Going to see her back in 3 weeks and we can discuss her next steps. We will also review the MRI scan at that time. If there is any questions or concerns prior to this encounter, they will contact the office. Questions answered. documented in this encounterSelect [facility]04-01-[facility]24 History of Present illness Narrative* Yaakov Hayes MD - 06/17/2023 12:27 PM EDT Images from the original note were not included. Yaakov Hayes MD Interventional Cardiology [address] [place], [place] [id number] Chief Complaint Patient presents with: New Patient HISTORY OF PRESENT ILLNESS: Ms. Jerry is a 57 year old female seen in my office today for risk stratification and screening forischemic heart disease patient had longstanding history of diabetes with prior history of below-knee amputation of her right leg due to gangrene chronic tobacco abuse history of hypertension as a part of CT screening for lung cancer she had a CT which shows extensive calcification of coronary artery indicate possible underlying coronary artery disease Patient is asymptomatic denies chest pain or shortness of breath no signs or symptoms of congestiveheart failure No prior cardiac history of stent or bypass surgery or myocardial infarction Cardiac Risk Factors age (male over 45, female over 55), hyperlipidemia, history of smoking, diabetes, hypertension, family history of CAD PAST MEDICAL HISTORY Diagnosis Date Cataracts, bilateral s/p surgery in 2021 at [facility] Coronary artery calcification 11/[address] chest Diabetic neuropathy ([facility]) Gas gangrene of lower extremity ([facility]) Goiter, unspecified 09/29/2007 PAD (peripheral artery disease) ([facility]) S/P BKA (below knee amputation) ([facility]) 05/31/2022 right Tobacco use disorder Type II or unspecified type diabetes mellitus without mention of complication, uncontrolled Endo: Dr. Madrigal PAST SURGICAL HISTORY Procedure Laterality Date APPENDECTOMY HX 80s CATARACT EXTRACTION HX Bilateral 04/2022 EGD W/O BRSH SPEC VARICIES INJ 2018 with esophageal dilation LEG AMPUTATION HX Right 06/03/2022 BKA PAST SURGICAL HISTORY OF Lt thumb straightened FAMILY HISTORY Problem Relation Age of Onset Stroke Mother Ischemic Heart Disease Mother Diabetes Mother Hypertension Mother Stroke Father Ischemic Heart Disease Father Hypertension Father Diabetes Father Kidney failure Sister Ischemic Heart Disease Brother Massive AR at age 38 Breast Cancer Paternal Grandmother Social History Tobacco Use Smoking status: Every Day Packs/day: 0.50 Years: 43.00 Additional pack years: 0.00 Total pack years: 21.50 Types: Cigarettes Start date: 03/18/1979 Smokeless tobacco: Never Vaping Use Vaping Use: Never used Substance Use Topics Alcohol use: No Drug use: No ALLERGIES No Known Allergies Medications: Current Outpatient Medications Medication Sig Dispense Refill albuterol HFA (PROVENTIL HFA, VENTOLIN HFA) 90 mcg/actuation inhaler Inhale 2 Puffs as instructed every 4 hours as needed for wheezing/shortness of breath. 1 Each 3 lisinopril (ZESTRIL) 5 mg tablet Take 1 tablet by mouth once daily. 90 tablet 1 Cholecalciferol, Vitamin D3, (VITAMIN D) 25 mcg (1,000 unit) cap Take 2 capsules by mouth once daily. Taking 2,000 units daily 180 capsule 1 urea (CARMOL) 40 % Apply to affected area once daily. 198 g 11 atorvastatin (LIPITOR) 40 mg tablet Take 1 tablet by mouth daily at bedtime. For cholesterol. 90 tablet 1 metFORMIN (GLUCOPHAGE) 1,000 mg tablet Take 1,000 mg by mouth twice daily with meals. glipiZIDE (GLUCOTROL) 5 mg tablet Take 5 mg by mouth once daily. ferrous sulfate 325 mg (65 mg iron) tablet Take 325 mg by mouth. blood sugar diagnostic(TRUETRACK TEST STRIPS) Test blood sugars twice daily. (Patient not taking: Reported on 09/25/2022) 100 11 blood-glucose meter(TRUETRACK BLOOD GLUCOSE SYSTEM KIT) Test glucose as directed (Patient not taking: Reported on 09/25/2022) 1 0 blood-glucose control, low(TRUETRACK GLUCOSE SOLN) Test controls as needed (Patient not taking: Reported on 09/25/2022) 1 3 LANCETS Test blood sugars once daily, 250.00, non insulin dep (Patient not taking: Reported on 09/25/2022) 100 11 Current Facility-Administered Medications Medication Dose Route Frequency Provider Last Rate Last Admin regadenoson 0.4 mg injection (LEXISCAN) 0.4 mg INTRAVENOUS DIRECTED PRN Yaakov Hayes MD aminophylline 50-250 mg injection 50-250 mg INTRAVENOUS DIRECTED PRN Yaakov Hayes MD metoprolol 2.5-5 mg injection (LOPRESSOR) 2.5-5 mg INTRAVENOUS DIRECTED PRYaakov Fong MD Review of Systems Constitutional: Negative for chills, diaphoresis, fever, malaise/fatigue and weight loss. HENT: Negative for congestion, ear discharge, ear pain, hearing loss, nosebleeds, sinus pain, sore throat and tinnitus. Eyes: Negative for blurred vision, double vision, photophobia, pain, discharge and redness. Respiratory: Negative for cough, hemoptysis, sputum production, shortness of breath, wheezing and stridor. Cardiovascular: Negative for chest pain, palpitations, orthopnea, claudication, leg swelling and PND. Gastrointestinal: Negative for abdominal pain, blood in stool, constipation, diarrhea, heartburn, melena, nausea and vomiting. Genitourinary: Negative for dysuria, flank pain, frequency, hematuria and urgency. Musculoskeletal: Negative for back pain, falls, joint pain, myalgias and neck pain. Skin: Negative for itching and rash. Neurological: Negative for dizziness, tingling, tremors, sensory change, speech change, focal weakness, seizures, loss of consciousness, weakness and headaches. Endo/Heme/Allergies: Negative for environmental allergies and polydipsia. Does not bruise/bleed easily. Psychiatric/Behavioral: Negative for depression, hallucinations, memory loss, substance abuse and suicidal ideas. The patient is not nervous/anxious and does not have insomnia. Physical Examination: Vitals:BP 104/67 Pulse 94 Wt 98 lb (44.5kg) SpO2 99% LMP 09/16/2007 BP w/Orthostatic Vitals Date and Time Orthostatic BP Orthostatic Pulse BP Pulse BP Position BP Site BP Cuff Size 06/17/23 1022 -- -- 104/67 94 -- -- -- Last 2 Encounter Wt Readings: Date: Wt: 06/17/2023 44.5 kg (98 lb) 05/21/2023 44.9 kg (99 lb) Physical Exam Constitutional: General: She is not in acute distress. Appearance: She is not diaphoretic. HENT: Head: Normocephalic and atraumatic. Right Ear: External ear normal. Left Ear: External ear normal. Nose: Nose normal. Mouth/Throat: Pharynx: Oropharynx is clear. Eyes: General: Right eye: No discharge. Left eye: No discharge. Conjunctiva/sclera: Conjunctivae normal. Pupils: Pupils are equal, round, and reactive to light. Cardiovascular: Rate and Rhythm: Normal rate and regular rhythm. Heart sounds: Normal heart sounds, S1 normal and S2 normal. No murmur heard. No friction rub. No gallop. No S3 or S4 sounds. Pulmonary: Effort: Pulmonary effort is normal. No respiratory distress. Breath sounds: Normal breath sounds. No wheezing or rales. Chest: Chest wall: No tenderness. Musculoskeletal: General: Normal range of motion. Cervical back: Normal range of motion and neck supple. Skin: General: Skin is warm and dry. Neurological: Mental Status: She is alert and oriented to person, place, and time. Psychiatric: Mood and Affect: Mood normal. Thought Content: Thought content normal. Judgment: Judgment normal. Pertinent Labs: CBC: Hemoglobin (g/dL) Date Value 03/06/2023 9.4 Hematocrit (%) Date Value 03/06/2023 29.2 HCT (%) Date Value 06/22/2022 31.8 WBC Date Value 03/06/2023 8.67 k/uL 06/22/2022 5.8 K/uL 06/27/2005 Negative /hpf Platelet Count (k/uL) Date Value 03/06/2023 330 PLT (K/uL) Date Value 06/22/2022 192 BMP: Glucose (mg/dL) Date Value 03/06/2023 151 06/27/2005 >=1000 Potassium (mmol/L) Date Value 03/06/2023 3.9 Sodium (mmol/L) Date Value 03/06/2023 138 Chloride (mmol/L) Date Value 03/06/2023 104 CO2 (mmol/L) Date Value 03/06/2023 22 Creatinine (mg/dL) Date Value 03/06/2023 0.73 06/29/2022 0.8 BUN (mg/dL) Date Value 03/06/2023 10 Anion Gap (mmol/L) Date Value 03/06/2023 12 Calcium, Total (mg/dL) Date Value 03/06/2023 9.5 INR: Lipid Profile: Total Cholesterol, Nonfasting Date Value Ref Range Status 02/01/2023 211 (H) <200 mg/dL Final Comment: <200 mg/dL, Desirable 200-239 mg/dL, Borderline high >239 mg/dL, High HDL Cholesterol, Nonfasting Date Value Ref Range Status 02/01/2023 93 >39 mg/dL Final Comment: 40-59 mg/dL, Acceptable >59 mg/dL, High: Negative risk factor for coronary heart disease <40 mg/dL, Low: Positive risk factor for coronary heart disease LDL Cholesterol, Nonfasting Date Value Ref Range Status 02/01/2023 106 (H) <100 mg/dL Final Comment: <100 mg/dL, Optimal 100-129 mg/dL, Near optimal/above optimal 130-159 mg/dL, Borderline high 160-189 mg/dL, High >189 mg/dL, Very high Secondary prevention optimal LDL Cholesterol levels are recommended to be < 70 mg/dL Triglycerides, Nonfasting Date Value Ref Range Status 02/01/2023 61 <150 mg/dL Final Comment: <150 mg/dL, Normal 150-199 mg/dL, Borderline high 200-499 mg/dL, High >499 mg/dL, Very high Hemoglobin A1C: No results found for: "HGBA1C" TSH: No results found for: "TSHREFL" Prior Cardiac Testing None Assessment and Plan: 57 years old female patient with coronary calcification seen on CT ASSESSMENT/PLAN: 1. Screening for ischemic heart disease - ICD9: V81.0, ICD10: Z13.6 (primary diagnosis) Need risk stratification with a nuclear stress test - ECG COMPLETE 2. Coronary artery calcification seen on CAT scan - ICD9: 414.00, ICD10: I25.10 Nuclear stress test was ordered and was completely normal medical therapy risk factor modification is indicated - NM CARDIAC PERF STRESS/PHARM - REGADENOSON 0.4 MG/5 ML INTRAVENOUS SYRINGE - AMINOPHYLLINE 250 MG/10 ML INTRAVENOUS SOLUTION - METOPROLOL TARTRATE 5 MG/5 ML INTRAVENOUS SOLUTION 3. Atherosclerosis of [place] coronary artery of [place] heart without angina pectoris - ICD9: 414.01, ICD10: I25.10 CT calcification of coronary artery indicate underlying coronary artery disease Patient does have high likelihood of coronary artery disease Recommend aspirin and statin Yaakov Hayes MD Follow up planning: One year Electronically signed by Yaakov Hayes MD on June 17, 2023, 12:27 PM The above note was partially created using a dictation recognition software. A reasonable attempt has been made to correct any errors. documented in [facility] Progress note Author Jillian Livingston [facility] June 14, 2023 8:52am Note Date/Time June 13, 2023 5:[facility] [address] [place] [address] Progress Note - Wound Care 06/13/23 1720 MR#: [id number] Acct: [id number] Name: SANJUANITA JERRY Rep #:[id number] : 1965 57 From: Jillian MARIE PCP: Dr. Art Herman MD Status :REG RCR Location: History of Present Illness Date of Service: 06/13/23 Chief Complaint: R BKA stump wound History of Wound: Sanjuanita Jerry is a 57 y/o female who presents to the wound healing center today for management of a right BKA stump wound. She is accompanied to the appointment today by her daughter who helps to supplement herhistory and also helps with her wound care. 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 At that time, they explored and washed out proximally in her thigh as well. Subsequently she initially had wound vac placed prior to secondary closure. She reports that the amputation site did ultimately heal fully and she was able to obtain a prosthetic. She had been doing very well withher prosthetic and getting back to work etc. Unfortunately about 1-2 months ago she developed a wound on her amputation stump due to the prosthetic rubbing in this area. She presented to the [facility] ER on 02/26/23 with concern of infection. She was admitted from 02/26-03/01 for IV antibiotics. Wound cultures were positive for staph aureus, blood cultures were negative. She was evaluated by orthopedics at that time as well. XR and CT scan performed during that admission were negative for signs of osteomyelitis. She was discharged with a course of Bactrim and referral here. At home, they have been doing daily dressing changes with iodoform and dry gauzedressing. Her daughter reports it has made significant improvement since her hospital stay. Subjective Subjective Daughter has noticed increased thicker drainage from the wound with dressing changes. They have not noticed increased redness, swelling, pain. No N/V, F/C. Objective Data Objective Data Vital Signs: Vital Signs Temp Pulse Resp BP O2 Del Method 96.9 F L 107 H 16 127/54 H Room Air 06/13/23 15:35 06/13/23 15:35 06/13/23 15:35 06/13/23 15:35 06/13/23 15:35 Oxygen Delivery Method Room Air Weight: 96 lb Body Mass Index (BMI) 18.7 Charges/Coding Procedures Integumentary 111xxx-113xx: 11524 Ani musc/fascia 20 sq cm/< Physical Exam Const alert, oriented x3, no apparent distress and average body habitus General Appearance: cooperative HEENT normocephalic, head/scalp atraumatic, hearing grossly normal bilaterally, external ears normal and external nose normal Eyes EOMs intact bilaterally General Eye: normal appearance of both eyes Resp Effort and Inspection: able to speak in complete sentences; Negative for labored, stridor, retractions, uses accessory muscles or audible wheezes Extremity Extremity Narrative: R BKA Skin Wounds: wounds noted Wound Narrative: Wound to R BKA stump which still probes to bone. I am able to express yellow- white opaque drainage and a scant amount of thick white drainage. The erythema and warmth in the periwound remains resolved. The outer diameter of the wound isdecreasing, the depth is measuring less but as noted still probing to bone. Psych mental status grossly normal Appearance: grossly normal Attitude: calm and engaged Activity / Motor Behavior: appropriate eye contact Judgement: judgement good Debridement Note Debridement Note Wound debrided: R BKA Laterality: Right Type of Debridement: Excisional debridement Anesthesia Used: 5% Lidocaine Gel Depth: Down to and including healthy tissue and to muscle Percentage of wound debrided: 100 Instrument Used: 3mm curette Tissue Removed: slough, devitalized tissue Severity: Necrosis of Muscle Amount of bleeding with debridement: Mild Bleeding Controlled with: Pressure Patient tolerated procedure: Patient tolerated procedure well Post-Debridement Measurements and Additional Note: Post-Debridement Measurements/Treatment - Nurse 1 - General Ulcer Assessment Start: 05/23/23 13:10 Freq: Status: Active Protocol: SUE.CELESTE Activity Type Activity Date Activity User E-sign Co-sign Detail Recorded Client Recorded Date Recorded By Document 05/23/23 13:11 RB Desktop 05/23/23 13:14 RB Document 05/30/23 14:55 CT [id number] 05/30/23 14:58 CT Document 06/06/23 13:21 [facility] Desktop 06/06/23 13:29 [facility] Document 06/13/23 15:35 [facility] Desktop 06/13/23 15:40 [facility] 05/23/23 05/30/23 06/06/23 13:11 14:55 13:21 - Today's Visit Information Type of service Follow-up Visit Initial Visit Follow-up Visit (Physician/AUTO WASH BUFFER (Physician/AUTO WASH BUFFER ) ) Arrival Mode Wheelchair Ambulatory Wheelchair Transfer Assistance None Other Transfer Assist (Other) 1 STAND BY Accompanied by daughter DAUGHTER Patient Identification Verified (Name & Yes Yes Yes ) Patient Requires Transmission-Based No No Precautions Safety Precautions Fall Prevention Height and Weight Body Mass Index (BMI) 18.7 18.7 18.7 BMI Classification Normal Normal Normal Vital Signs Temperature (97.8 F-99.1 F) 97 F L 97 F L 97.8 F Temperature Source Temporal Temporal Temporal Pulse Rate (60-100) 45 L 95 99 Pulse Location Monitor Monitor Monitor Respiratory Rate (12-18) 18 16 16 Respiratory rate source Observation Observation Observation Oxygen Delivery Method Room Air Blood Pressure (90/60-120/80) 132/54 H 115/65 121/51 H Blood Pressure Mean (mm Hg) 80 81 74 Source Monitor Monitor Monitor Position Semi-Fowlers Sitting Sitting Blood Pressure Location Left Arm Left Arm Left Arm History Since Last Visit- (Skip if this is Patient's initial visit) Have you changed medications since your No No last visit? Any new allergies or adverse reactions No No Had a fall/change in ADL's that may No No increase risk of falls Signs or symptoms of abuse and/or No No neglect since last visit Have you been in the hospital since your No No last visit? Has dressing in place as prescribed Yes Yes Has compression in place as prescribed No N/A Yes Has offloadiing in place as prescribed No N/A N/A Experienced any changes in pain level or No No management Left Footwear Regular Shoe Regular Shoe Right Footwear Regular Shoe Pain Scale: 0-10 Numeric Is Patient Pain Free? Yes Yes Yes 06/13/23 15:35 WC - Today's Visit Information Type of service Follow-up Visit (Physician/AUTO WASH BUFFER ) Arrival Mode Wheelchair Transfer Assistance None Transfer Assist (Other) DAUGHTER Accompanied by Patient Identification Verified (Name & Yes ) Patient Requires Transmission-Based No Precautions Safety Precautions Height and Weight Body Mass Index (BMI) 18.7 BMI Classification Normal Vital Signs Temperature (97.8 F-99.1 F) 96.9 F L Temperature Source Temporal Pulse Rate (60-100) 107 H Pulse Location Monitor Respiratory Rate (12-18) 16 Respiratory rate source Observation Oxygen Delivery Method Room Air Blood Pressure (90/60-120/80) 127/54 H Blood Pressure Mean (mm Hg) 78 Source Monitor Position Sitting Blood Pressure Location Right Arm History Since Last Visit- (Skip if this is Patient's initial visit) Have you changed medications since your No last visit? Any new allergies or adverse reactions No Had a fall/change in ADL's that may No increase risk of falls Signs or symptoms of abuse and/or No neglect since last visit Have you been in the hospital since your No last visit? Has dressing in place as prescribed Yes Has compression in place as prescribed Yes Has offloadiing in place as prescribed N/A Experienced any changes in pain level or No management Left Footwear Regular Shoe Right Footwear Pain Scale: 0-10 Numeric Is Patient Pain Free? Yes WC - Nurse 1 - General Ulcer Measurement Start: 05/23/23 13:10 Freq: Status: Active Protocol: Activity Type Activity Date Activity User E-sign Co-sign Detail Recorded Client Recorded Date Recorded By Document 05/23/23 13:11 RB Desktop 05/23/23 13:14 RB Document 05/30/23 14:55 MT [id number] 05/30/23 14:58 MT Document 06/06/23 13:21 [facility] Desktop 06/06/23 13:29 BMF Document 06/13/23 15:35 BMF Desktop 06/13/23 15:40 BMF 05/23/23 05/30/23 06/06/23 13:11 14:55 13:21 Wound Center Nurse 1 #1- R STUMP -Combined with other wound No No -Current Size (cm) - Length 0.8 0.5 0.2 -Current Size (cm) - Width 0.4 0.5 0.3 -Current Size (cm) - Depth 0.5 1.8 1.4 -Total Square Cm 0.32 0.25 0.06 -Date of Last Picture (Recall this 06/06/23 field) -Photo Taken Yes -Epithelialization -Tunneling Yes Yes -Tunneling Position (O'clock) 12 12 -Tunneling Distance (cm) 1 1.8 -Undermining/Tunneling No No -Circular Undermining No No -Exudate Amt Medium Small Medium -Exudate Type Serosanguineous Serosanguineous Purulent -Wound Margin Distinct, Flat & Intact Distinct, Outline Outline Attached Attached -Granulation Amt Medium (34-66%) Large (67-100%) Large (67-100%) -Granulation Quality Belen Pale,Belen Red -Slough/Fibrin Yes -Necrosis Amt Medium (34-66%) Small (1-33%) -Necrotic Tissue Type Adherent Slough Adherent Slough -Structure Exposed N/A -Texture (Edwina-wound Skin Appearance) Assessed Assessed Assessed, Scarring -Moisture (Edwina-wound Skin Appearance) Maceration Assessed Assessed -Color (Edwina-wound Skin Appearance) Assessed Assessed Assessed -Temperature (Edwina-wound Skin No Abnormality No Abnormality No Abnormality Appearance) (Pt Warm) (Pt Warm) (Pt Warm) -Tenderness on Palpation (Edwina-wound No No No Skin Appearance) -Ulcer Cleansing Wound Cleanser Rinsed/ Rinsed/ Irrigated with Irrigated with Saline Saline -Foul Odor after Cleansing No No No -Anesthetic Used 5% Lidocaine 5% Lidocaine 5% Lidocaine Gel Gel Gel 06/13/23 15:35 Wound Center Nurse 1 #1- R STUMP -Combined with other wound No -Current Size (cm) - Length 0.3 -Current Size (cm) - Width 0.2 -Current Size (cm) - Depth 1 -Total Square Cm 0.06 -Date of Last Picture (Recall this field) -Photo Taken -Epithelialization Small 1-33% -Tunneling -Tunneling Position (O'clock) -Tunneling Distance (cm) -Undermining/Tunneling No -Circular Undermining No -Exudate Amt Medium -Exudate Type Serosanguineous -Wound Margin Distinct, Outline Attached -Granulation Amt Large (67-100%) -Granulation Quality Belen -Slough/Fibrin -Necrosis Amt -Necrotic Tissue Type -Structure Exposed -Texture (Edwina-wound Skin Appearance) Assessed, Scarring -Moisture (Edwina-wound Skin Appearance) Assessed -Color (Edwina-wound Skin Appearance) Assessed -Temperature (Edwina-wound Skin No Abnormality Appearance) (Pt Warm) -Tenderness on Palpation (Dewina-wound No Skin Appearance) -Ulcer Cleansing Rinsed/ Irrigated with Saline -Foul Odor after Cleansing No -Anesthetic Used 5% Lidocaine Gel WC - Nurse 2 - General Ulcer CM Notes Start: 05/23/23 13:10 Freq: Status: Active Protocol: Activity Type Activity Date Activity User E-sign Co-sign Detail Recorded Client Recorded Date Recorded By Document 05/23/23 13:23 GM Desktop 05/23/23 13:27 GM Document 05/30/23 14:06 GM Desktop 05/30/23 14:15 Document 06/06/23 13:43 Desktop 06/06/23 13:50 Document 06/13/23 15:56 Desktop 06/13/23 16:07 05/23/23 05/30/23 06/06/23 13:23 14:06 13:43 Wound Center Nurse 2 #1- R STUMP -Time 13:25 14:06 13:43 -Correct Patient Yes Yes Yes -Correct Side, Site, Position Yes Yes Yes -Correct Procedure Yes Yes Yes -Procedure Performed Yes Yes Yes -Type of Procedure Debridement Debridement Debridement -Clinical Debridement Subcutaneous Subcutaneous Subcutaneous -Tissue Removed Subcutaneous Subcutaneous Subcutaneous -Post Debridement (cm) - Length 0.7 0.4 0.3 -Post Debridement (cm) - Width 0.4 0.4 0.3 -Post Debridement (cm) - Depth 2.2 2.6 2.2 -Total Square (Post) (cm) 0.28 0.16 0.09 -Area of Debridement (cm) - Length 0.7 0.4 0.3 -Area of Debridement (cm) - Width 0.4 0.4 0.3 -Total Square (Area) (cm) 0.28 0.16 0.09 -Tunneling No No No -Undermining/Tunneling No No No -Circular Undermining No No No -Wound/Ulcer Outcome Not Healed Not Healed Not Healed -Ulcer Cleansing Rinsed/ Rinsed/ Rinsed/ Irrigated with Irrigated with Irrigated with Saline Saline Saline -Foul Odor after Cleansing No No No -Bioengineered Tissue No -Bleeding Controlled with Pressure Pressure Pressure -Treatment Response Procedure Procedure Procedure Tolerated Well Tolerated Well Tolerated Well -Debridement - Subq, 1st 20sq cm Yes Yes Yes Pain Scale: 0-10 Numeric Is Patient Pain Free? Yes Yes Yes 06/13/23 15:56 Wound Center Nurse 2 #1- R STUMP -Time 15:59 -Correct Patient Yes -Correct Side, Site, Position Yes -Correct Procedure Yes -Procedure Performed Yes -Type of Procedure Debridement -Clinical Debridement Subcutaneous -Tissue Removed Subcutaneous -Post Debridement (cm) - Length 0.3 -Post Debridement (cm) - Width 0.4 -Post Debridement (cm) - Depth 1.6 -Total Square (Post) (cm) 0.12 -Area of Debridement (cm) - Length 0.3 -Area of Debridement (cm) - Width 0.4 -Total Square (Area) (cm) 0.12 -Tunneling No -Undermining/Tunneling No -Circular Undermining No -Wound/Ulcer Outcome Not Healed -Ulcer Cleansing Rinsed/ Irrigated with Saline -Foul Odor after Cleansing No -Bioengineered Tissue No -Bleeding Controlled with Pressure -Treatment Response Procedure Tolerated Well -Debridement - Subq, 1st 20sq cm Yes Pain Scale: 0-10 Numeric Is Patient Pain Free? Yes - Nurse 3 - General Ulcer D/C NN Start: 05/23/23 13:10 Freq: Status: Active Protocol: Activity Type Activity Date Activity User E-sign Co-sign Detail Recorded Client Recorded Date Recorded By Document 05/23/23 13:43 KW Desktop 05/23/23 13:47 KW Document 05/30/23 14:37 RB Desktop 05/30/23 14:38 RB Document 06/06/23 14:02 GM Desktop 06/06/23 14:04 GM Document 06/13/23 16:12 KW Desktop 06/13/23 16:13 KW 05/23/23 05/30/23 06/06/23 13:43 14:37 14:02 Wound Care Center Nurse 3 #1- R STUMP -Ulcer Cleansing Rinsed/ Not Cleansed Irrigated with Saline -Foul Odor after Cleansing No -Primary Dressing Applied Nugauze, Plain Nugauze, Nugauze, 1/4in Iodoform 1/4in Iodoform 1/4in -Other Dressing nugauze moistened with dakins -Primary Dressing Covered/Secured with Dry Gauze, Dry Gauze,Dry Dry Gauze & Secured with Gauze & Roll Roll Gauze, Tape Gauze,Secured Secured with with Tape Tape -Other Covering soaked with dakins -Nugauze, Iodoform 1/4in 1 1 -Nugauze, Plain 1/4in 1 Treatment Response Procedure Tolerated Well Pain Scale: 0-10 Numeric Is Patient Pain Free? Yes Yes Yes Teaching: Wound Center dressing the wound -Person Taught Patient,Family -Teaching Method Discussion, Demonstration -Response to teaching Verbalize understanding WC - Visit Discharge Discharge Condition Stable Stable Stable Ambulatory Status Wheelchair Walker Wheelchair Transportation Private Auto Private Auto Private Auto Medication Reconcilliation completed & No No Yes provided to patient/care provider Clinical Summary of Care Provided Yes Yes Yes 06/13/23 16:12 Wound Care Center Nurse 3 #1- R STUMP -Ulcer Cleansing -Foul Odor after Cleansing -Primary Dressing Applied Nugauze, Plain 1/4in -Other Dressing -Primary Dressing Covered/Secured with Dry Gauze, Secured with Tape -Other Covering -Nugauze, Iodoform /4in -Nugauze, Plain 1/4in 1 Treatment Response Pain Scale: 0-10 Numeric Is Patient Pain Free? 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 The outside diameter has decreased in size. Erythema and warmth remains resolved. Still noting milky yellow drainage. No foul odor. Will continue antibiotic therapy but switch agents to doxycycline per the culture results. No evidence of osteomyelitis on XR but with persistent depth to bone and significant drainage. Will obtain MRI to further assess for potential underlyingosteo. Will continue to pack with dakins-soaked Nugauze and cover with foam-border or bulky dry dressing. Again encouraged to ensure that her packing the full depth of the wound to encourage healing from the inside out and to try to prevent the outside from healing over. Continue to avoid use of prosthetic so as not to apply further pressure to the area. She will return to the wound center in 2 weeks, sooner if needed. We discussed the red flag signs/symptoms which should lead her to present to the ER, she and her daughter acknowledged understanding. 06/14/23851 <Electronically signed by Jillian MARIE> Cosigner Signature (if applicable): CC: ~ Signed [facility] Work Phone: 1(862) 220-290003-22-2024 Progress note Author Jillian Livingston [facility] June 07, 2023 7:51am Note Date/Time June 06, 2023 2:0 5pm [facility] [address] [place] [address] Progress Note - Wound Care 06/06/23 1404 MR#: [id number] Acct: [id number] Name: SANJUANITA JERRY Rep #:[id number] : 1965 57 From: Jillian MARIE PCP: Dr. Art Herman MD Status :REG RCR Location: History of Present Illness Date of Service: 06/06/23 Chief Complaint: R BKA stump wound History of Wound: Sanjuanita Jerry is a 57 y/o female who presents to the wound healing center today for management of a right BKA stump wound. She is accompanied to the appointment today by her daughter who helps to supplement herhistory and also helps with her wound care. 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 At that time, they explored and washed out proximally in her thigh as well. Subsequently she initially had wound vac placed prior to secondary closure. She reports that the amputation site did ultimately heal fully and she was able to obtain a prosthetic. She had been doing very well withher prosthetic and getting back to work etc. Unfortunately about 1-2 months ago she developed a wound on her amputation stump due to the prosthetic rubbing in this area. She presented to the [facility] ER on 02/26/23 with concern of infection. She was admitted from 02/26-03/01 for IV antibiotics. Wound cultures were positive for staph aureus, blood cultures were negative. She was evaluated by orthopedics at that time as well. XR and CT scan performed during that admission were negative for signs of osteomyelitis. She was seen at the wound center from 03/15/24 - 04/19/23 prior to discharge. Attime of discharge, wound had epithelialized. Patient reports it remained stable until earlier this week when she first wore her prosthetic again at which time that area "busted open" and was noted to have deeper tracking prompting her return. There is some erythema surrounding the wound, they deny significant drainage. She denies any N/V, F/C. Subjective Subjective Daughter reports that she continues to manage the dressings well at home, she ispacking as directed. She feels the outside is closing up but there is still noticing some milky drainage from the wound. There is no surrounding redness, focal swelling, or foul odor. They are using Dakin's. She is not having any nausea, vomiting, fevers, chills. She is still taking the Bactrim as prescribed. Objective Data Objective Data Vital Signs: Vital Signs Temp Pulse Resp BP O2 Del Method 97.8 F 99 16 121/51 H Room Air 06/06/23 13:21 06/06/23 13:21 06/06/23 13:21 06/06/23 13:21 06/06/23 13:21 Oxygen Delivery Method Room Air Weight: 96 lb Body Mass Index (BMI) 18.7 Charges/Coding Procedures Integumentary 111xxx-113xx: 74351 Ani subq tissue 20 sq cm/< Physical Exam Const alert, oriented x3, no apparent distress and average body habitus General Appearance: cooperative HEENT normocephalic, head/scalp atraumatic, hearing grossly normal bilaterally, external ears normal and external nose normal Eyes EOMs intact bilaterally General Eye: normal appearance of both eyes Resp Effort and Inspection: able to speak in complete sentences; Negative for labored, stridor, retractions, uses accessory muscles or audible wheezes Extremity Extremity Narrative: R BKA Skin Wounds: wounds noted Wound Narrative: Wound to R BKA stump which probes to bone. The erythema and warmth in the periwound remains resolved. No significant drainage. The outer diameter of the wound is decreasing, the depth is not improving. Still noting milky-yellow drainage. Psych mental status grossly normal Appearance: grossly normal Attitude: calm and engaged Activity / Motor Behavior: appropriate eye contact Judgement: judgement good Debridement Note Debridement Note Wound debrided: R BKA Laterality: Right Type of Debridement: Excisional debridement Anesthesia Used: 5% Lidocaine Gel Depth: Down to and including healthy tissue and to muscle Percentage of wound debrided: 100 Instrument Used: 3mm curette Tissue Removed: slough, devitalized tissue Severity: Necrosis of Muscle Amount of bleeding with debridement: Mild Bleeding Controlled with: Pressure Patient tolerated procedure: Patient tolerated procedure well Post-Debridement Measurements and Additional Note: Post-Debridement Measurements/Treatment WC - Nurse 1 - General Ulcer Assessment Start: 05/23/23 13:10 Freq: Status: Active Protocol: WC.LOWEXT Activity Type Activity Date Activity User E-sign Co-sign Detail Recorded Client Recorded Date Recorded By Document 05/23/23 13:11 RB Desktop 05/23/23 13:14 RB Document 05/30/23 14:55 MT [id number] 05/30/23 14:58 MT Document 06/06/23 13:21 BMF Desktop 06/06/23 13:29 BMF 05/23/23 05/30/23 06/06/23 13:11 14:55 13:21 WC - Today's Visit Information Type of service Follow-up Visit Initial Visit Follow-up Visit (Physician/AUTO WASH BUFFER (Physician/AUTO WASH BUFFER ) ) Arrival Mode Wheelchair Ambulatory Wheelchair Transfer Assistance None Other Transfer Assist (Other) 1 STAND BY Accompanied by daughter DAUGHTER Patient Identification Verified (Name & Yes Yes Yes ) Patient Requires Transmission-Based No No Precautions Safety Precautions Fall Prevention Height and Weight Body Mass Index (BMI) 18.7 18.7 18.7 BMI Classification Normal Normal Normal Vital Signs Temperature (97.8 F-99.1 F) 97 F L 97 F L 97.8 F Temperature Source Temporal Temporal Temporal Pulse Rate (60-100) 45 L 95 99 Pulse Location Monitor Monitor Monitor Respiratory Rate (12-18) 18 16 16 Respiratory rate source Observation Observation Observation Oxygen Delivery Method Room Air Blood Pressure (90/60-120/80) 132/54 H 115/65 121/51 H Blood Pressure Mean (mm Hg) 80 81 74 Source Monitor Monitor Monitor Position Semi-Fowlers Sitting Sitting Blood Pressure Location Left Arm Left Arm Left Arm History Since Last Visit- (Skip if this is Patient's initial visit) Have you changed medications since your No No last visit? Any new allergies or adverse reactions No No Had a fall/change in ADL's that may No No increase risk of falls Signs or symptoms of abuse and/or No No neglect since last visit Have you been in the hospital since your No No last visit? Has dressing in place as prescribed Yes Yes Has compression in place as prescribed No N/A Yes Has offloadiing in place as prescribed No N/A N/A Experienced any changes in pain level or No No management Left Footwear Regular Shoe Regular Shoe Right Footwear Regular Shoe Pain Scale: 0-10 Numeric Is Patient Pain Free? Yes Yes Yes WC - Nurse 1 - General Ulcer Measurement Start: 05/23/23 13:10 Freq: Status: Active Protocol: Activity Type Activity Date Activity User E-sign Co-sign Detail Recorded Client Recorded Date Recorded By Document 05/23/23 13:11 RB Desktop 05/23/23 13:14 RB Document 05/30/23 14:55 MT [id number] 05/30/23 14:58 CT Document 06/06/23 13:21 BM Desktop 06/06/23 13:29 BMF 05/23/23 05/30/23 06/06/23 13:11 14:55 13:21 Wound Center Nurse 1 #1- R STUMP -Combined with other wound No No -Current Size (cm) - Length 0.8 0.5 0.2 -Current Size (cm) - Width 0.4 0.5 0.3 -Current Size (cm) - Depth 0.5 1.8 1.4 -Total Square Cm 0.32 0.25 0.06 -Date of Last Picture (Recall this 06/06/23 field) -Photo Taken Yes -Tunneling Yes Yes -Tunneling Position (O'clock) 12 12 -Tunneling Distance (cm) 1 1.8 -Undermining/Tunneling No No -Circular Undermining No No -Exudate Amt Medium Small Medium -Exudate Type Serosanguineous Serosanguineous Purulent -Wound Margin Distinct, Flat & Intact Distinct, Outline Outline Attached Attached -Granulation Amt Medium (34-66%) Large (67-100%) Large (67-100%) -Granulation Quality Belen Pale,Belen Red -Slough/Fibrin Yes -Necrosis Amt Medium (34-66%) Small (1-33%) -Necrotic Tissue Type Adherent Slough Adherent Slough -Structure Exposed N/A -Texture (Edwina-wound Skin Appearance) Assessed Assessed Assessed, Scarring -Moisture (Edwina-wound Skin Appearance) Maceration Assessed Assessed -Color (Edwina-wound Skin Appearance) Assessed Assessed Assessed -Temperature (Edwina-wound Skin No Abnormality No Abnormality No Abnormality Appearance) (Pt Warm) (Pt Warm) (Pt Warm) -Tenderness on Palpation (Edwina-wound No No No Skin Appearance) -Ulcer Cleansing Wound Cleanser Rinsed/ Rinsed/ Irrigated with Irrigated with Saline Saline -Foul Odor after Cleansing No No No -Anesthetic Used 5% Lidocaine 5% Lidocaine 5% Lidocaine Gel Gel Gel - Nurse 2 - General Ulcer CM Notes Start: 05/23/23 13:10 Freq: Status: Active Protocol: Activity Type Activity Date Activity User E-sign Co-sign Detail Recorded Client Recorded Date Recorded By Document 05/23/23 13:23 GM Desktop 05/23/23 13:27 Document 05/30/23 14:06 GM Desktop 05/30/23 14:15 GM Document 06/06/23 13:43 GM Desktop 06/06/23 13:50 GM 05/23/23 05/30/23 06/06/23 13:23 14:06 13:43 Wound Center Nurse 2 #1- R STUMP -Time 13:25 14:06 13:43 -Correct Patient Yes Yes Yes -Correct Side, Site, Position Yes Yes Yes -Correct Procedure Yes Yes Yes -Procedure Performed Yes Yes Yes -Type of Procedure Debridement Debridement Debridement -Clinical Debridement Subcutaneous Subcutaneous Subcutaneous -Tissue Removed Subcutaneous Subcutaneous Subcutaneous -Post Debridement (cm) - Length 0.7 0.4 0.3 -Post Debridement (cm) - Width 0.4 0.4 0.3 -Post Debridement (cm) - Depth 2.2 2.6 2.2 -Total Square (Post) (cm) 0.28 0.16 0.09 -Area of Debridement (cm) - Length 0.7 0.4 0.3 -Area of Debridement (cm) - Width 0.4 0.4 0.3 -Total Square (Area) (cm) 0.28 0.16 0.09 -Tunneling No No No -Undermining/Tunneling No No No -Circular Undermining No No No -Wound/Ulcer Outcome Not Healed Not Healed Not Healed -Ulcer Cleansing Rinsed/ Rinsed/ Rinsed/ Irrigated with Irrigated with Irrigated with Saline Saline Saline -Foul Odor after Cleansing No No No -Bioengineered Tissue No -Bleeding Controlled with Pressure Pressure Pressure -Treatment Response Procedure Procedure Procedure Tolerated Well Tolerated Well Tolerated Well -Debridement - Subq, 1st 20sq cm Yes Yes Yes Pain Scale: 0-10 Numeric Is Patient Pain Free? Yes Yes Yes - Nurse 3 - General Ulcer D/C NN Start: 05/23/23 13:10 Freq: Status: Active Protocol: Activity Type Activity Date Activity User E-sign Co-sign Detail Recorded Client Recorded Date Recorded By Document 05/23/23 13:43 KW Desktop 05/23/23 13:47 KW Document 05/30/23 14:37 RB Desktop 05/30/23 14:38 RB Document 06/06/23 14:02 Desktop 06/06/23 14:04 05/23/23 05/30/23 06/06/23 13:43 14:37 14:02 Wound Care Center Nurse 3 #1- R STUMP -Ulcer Cleansing Rinsed/ Not Cleansed Irrigated with Saline -Foul Odor after Cleansing No -Primary Dressing Applied Nugauze, Plain Nugauze, Nugauze, 1/4in Iodoform 1/4in Iodoform 1/4in -Other Dressing nugauze moistened with dakins -Primary Dressing Covered/Secured with Dry Gauze, Dry Gauze,Dry Dry Gauze & Secured with Gauze & Roll Roll Gauze, Tape Gauze,Secured Secured with with Tape Tape -Other Covering soaked with dakins -Nugauze, Iodoform 1/4in 1 1 -Nugauze, Plain 1/4in 1 Treatment Response Procedure Tolerated Well Pain Scale: 0-10 Numeric Is Patient Pain Free? 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 The outside diameter has decreased in size. Erythema and warmth remains resolved. Still noting milky yellow drainage. No foul odor. She has followed up with her orthopedic surgeon. No plans for surgical intervention at this time. She does have follow-up in early June. With the skin continuing to heal well the depth remains stable I do think it would be beneficial to have operative debridement with bone biopsy to r/o chronic osteo and to open up the tract which might allow us to use negative pressure therapy or otherwise support healing from the inside out. Her labs last week came back within normal limits. Continue Bactrim therapy. No evidence of osteomyelitis on XR. Will continue to pack with dakins-soaked Nugauze and cover with foam-border or bulky dry dressing. Again encouraged to ensure that her packing the full depth of the wound to encourage healing from the inside out and to try to prevent the outside from healing over. Continue to avoid use of prosthetic so as not to apply further pressure to the area. She will return to the wound center in 1 week, sooner if needed. We discussed the red flag signs/symptoms which should lead her to present to the ER, she and her daughter acknowledged understanding. 06/07/23 0751 <Electronically signed by Jillian MARIE> Cosigner Signature (if applicable): CC: ~ Signed [facility] Work Phone: [phone] Progress note Author Jillian Livingston [facility] May 30, 2023 5:06pm Note Date/Time May 30, 2023 4:4 9pm [facility] [address] [place] [address] Progress Note - Wound Care 05/30/23 1648 MR#: [id number] Acct: [id number] Name: SANJUANITA JERRY Rep #:[id number] : 1965 57 From: Jillian MARIE PCP: Dr. Art Herman MD Status :REG RCR Location: History of Present Illness Date of Service: 05/30/23 Chief Complaint: R BKA stump wound History of Wound: Sanjuanita Jerry is a 57 y/o female who presents to the wound healing center today for management of a right BKA stump wound. She is accompanied to the appointment today by her daughter who helps to supplement herhistory and also helps with her wound care. 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 At that time, they explored and washed out proximally in her thigh as well. Subsequently she initially had wound vac placed prior to secondary closure. She reports that the amputation site did ultimately heal fully and she was able to obtain a prosthetic. She had been doing very well withher prosthetic and getting back to work etc. Unfortunately about 1-2 months ago she developed a wound on her amputation stump due to the prosthetic rubbing in this area. She presented to the [facility] ER on 02/26/23 with concern of infection. She was admitted from 02/26-03/01 for IV antibiotics. Wound cultures were positive for staph aureus, blood cultures were negative. She was evaluated by orthopedics at that time as well. XR and CT scan performed during that admission were negative for signs of osteomyelitis. She was seen at the wound center from 03/15/24 - 04/19/23 prior to discharge. Attime of discharge, wound had epithelialized. Patient reports it remained stable until earlier this week when she first wore her prosthetic again at which time that area "busted open" and was noted to have deeper tracking prompting her return. There is some erythema surrounding the wound, they deny significant drainage. She denies any N/V, F/C. Subjective Subjective Patient reports no N/V, F/C. Her daughter continues to pack the wound at home, no issues with dressing changes. She needs a note for work outlining what we are treating her for, how it limits her working ability, and anticipated return to work. Objective Data Objective Data Vital Signs: Vital Signs Temp Pulse Resp BP 97 F L 95 16 115/65 05/30/23 14:55 05/30/23 14:55 05/30/23 14:55 05/30/23 14:55 Weight: 96 lb Body Mass Index (BMI) 18.7 Charges/Coding Procedures Integumentary 111xxx-113xx: 98049 Ani subq tissue 20 sq cm/< Physical Exam Const alert, oriented x3, no apparent distress and average body habitus General Appearance: cooperative HEENT normocephalic, head/scalp atraumatic, hearing grossly normal bilaterally, external ears normal and external nose normal Eyes EOMs intact bilaterally General Eye: normal appearance of both eyes Resp Effort and Inspection: able to speak in complete sentences; Negative for labored, stridor, retractions, uses accessory muscles or audible wheezes Extremity Extremity Narrative: R BKA Skin Wounds: wounds noted Wound Narrative: Wound to R BKA stump which probes to bone. The erythema and warmth in the periwound has resolved. No significant drainage. The outer diameter of the woundis decreasing, the depth is not improving. Still noting milky-yellow drainage. Psych mental status grossly normal Appearance: grossly normal Attitude: calm and engaged Activity / Motor Behavior: appropriate eye contact Judgement: judgement good Debridement Note Debridement Note Wound debrided: R BKA Laterality: Right Type of Debridement: Excisional debridement Anesthesia Used: 5% Lidocaine Gel Depth: Down to and including healthy tissue and to muscle Percentage of wound debrided: 100 Instrument Used: 3mm curette Tissue Removed: slough, devitalized tissue Severity: Necrosis of Muscle Amount of bleeding with debridement: Mild Bleeding Controlled with: Pressure Patient tolerated procedure: Patient tolerated procedure well Post-Debridement Measurements and Additional Note: Post-Debridement Measurements/Treatment - Nurse 1 - General Ulcer Assessment Start: 05/23/23 13:10 Freq: Status: Active Protocol: .CELESTE Activity Type Activity Date Activity User E-sign Co-sign Detail Recorded Client Recorded Date Recorded By Document 05/23/23 13:11 RB Desktop 05/23/23 13:14 RB Document 05/30/23 14:55 MT [id number] 05/30/23 14:58 MT 05/23/23 05/30/23 13:11 14:55 - Today's Visit Information Type of service Follow-up Visit Initial Visit (Physician/AUTO WASH BUFFER ) Arrival Mode Wheelchair Ambulatory Transfer Assistance None Accompanied by daughter Patient Identification Verified (Name & Yes Yes ) Patient Requires Transmission-Based No Precautions Safety Precautions Fall Prevention Height and Weight Body Mass Index (BMI) 18.7 18.7 BMI Classification Normal Normal Vital Signs Temperature (97.8 F-99.1 F) 97 F L 97 F L Temperature Source Temporal Temporal Pulse Rate (60-100) 45 L 95 Pulse Location Monitor Monitor Respiratory Rate (12-18) 18 16 Respiratory rate source Observation Observation Blood Pressure (90/60-120/80) 132/54 H 115/65 Blood Pressure Mean (mm Hg) 80 81 Source Monitor Monitor Position Semi-Fowlers Sitting Blood Pressure Location Left Arm Left Arm History Since Last Visit- (Skip if this is Patient's initial visit) Have you changed medications since your No last visit? Any new allergies or adverse reactions No Had a fall/change in ADL's that may No increase risk of falls Signs or symptoms of abuse and/or No neglect since last visit Have you been in the hospital since your No last visit? Has dressing in place as prescribed Yes Has compression in place as prescribed No N/A Has offloadiing in place as prescribed No N/A Experienced any changes in pain level or No management Left Footwear Regular Shoe Right Footwear Regular Shoe Pain Scale: 0-10 Numeric Is Patient Pain Free? Yes Yes WC - Nurse 1 - General Ulcer Measurement Start: 05/23/23 13:10 Freq: Status: Active Protocol: Activity Type Activity Date Activity User E-sign Co-sign Detail Recorded Client Recorded Date Recorded By Document 05/23/23 13:11 RB Desktop 05/23/23 13:14 RB Document 05/30/23 14:55 CT [id number] 05/30/23 14:58 CT 05/23/23 05/30/23 13:11 14:55 Wound Center Nurse 1 #1- R STUMP -Combined with other wound No -Current Size (cm) - Length 0.8 0.5 -Current Size (cm) - Width 0.4 0.5 -Current Size (cm) - Depth 0.5 1.8 -Total Square Cm 0.32 0.25 -Tunneling Yes Yes -Tunneling Position (O'clock) 12 12 -Tunneling Distance (cm) 1 1.8 -Undermining/Tunneling No -Circular Undermining No -Exudate Amt Medium Small -Exudate Type Serosanguineous Serosanguineous -Wound Margin Distinct, Flat & Intact Outline Attached -Granulation Amt Medium (34-66%) Large (67-100%) -Granulation Quality Belen Pale,Belen -Slough/Fibrin Yes -Necrosis Amt Medium (34-66%) Small (1-33%) -Necrotic Tissue Type Adherent Slough Adherent Slough -Structure Exposed N/A -Texture (Edwina-wound Skin Appearance) Assessed Assessed -Moisture (Edwina-wound Skin Appearance) Maceration Assessed -Color (Edwina-wound Skin Appearance) Assessed Assessed -Temperature (Edwina-wound Skin No Abnormality No Abnormality Appearance) (Pt Warm) (Pt Warm) -Tenderness on Palpation (Edwina-wound No No Skin Appearance) -Ulcer Cleansing Wound Cleanser Rinsed/ Irrigated with Saline -Foul Odor after Cleansing No No -Anesthetic Used 5% Lidocaine 5% Lidocaine Gel Gel WC - Nurse 2 - General Ulcer CM Notes Start: 05/23/23 13:10 Freq: Status: Active Protocol: Activity Type Activity Date Activity User E-sign Co-sign Detail Recorded Client Recorded Date Recorded By Document 05/23/23 13:23 Desktop 05/23/23 13:27 Document 05/30/23 14:06 Desktop 05/30/23 14:15 05/23/23 05/30/23 13:23 14:06 Wound Center Nurse 2 #1- R STUMP -Time 13:25 14:06 -Correct Patient Yes Yes -Correct Side, Site, Position Yes Yes -Correct Procedure Yes Yes -Procedure Performed Yes Yes -Type of Procedure Debridement Debridement -Clinical Debridement Subcutaneous Subcutaneous -Tissue Removed Subcutaneous Subcutaneous -Post Debridement (cm) - Length 0.7 0.4 -Post Debridement (cm) - Width 0.4 0.4 -Post Debridement (cm) - Depth 2.2 2.6 -Total Square (Post) (cm) 0.28 0.16 -Area of Debridement (cm) - Length 0.7 0.4 -Area of Debridement (cm) - Width 0.4 0.4 -Total Square (Area) (cm) 0.28 0.16 -Tunneling No No -Undermining/Tunneling No No -Circular Undermining No No -Wound/Ulcer Outcome Not Healed Not Healed -Ulcer Cleansing Rinsed/ Rinsed/ Irrigated with Irrigated with Saline Saline -Foul Odor after Cleansing No No -Bioengineered Tissue No -Bleeding Controlled with Pressure Pressure -Treatment Response Procedure Procedure Tolerated Well Tolerated Well -Debridement - Subq, 1st 20sq cm Yes Yes Pain Scale: 0-10 Numeric Is Patient Pain Free? Yes Yes WC - Nurse 3 - General Ulcer D/C NN Start: 05/23/23 13:10 Freq: Status: Active Protocol: Activity Type Activity Date Activity User E-sign Co-sign Detail Recorded Client Recorded Date Recorded By Document 05/23/23 13:43 KW Desktop 05/23/23 13:47 KW Document 05/30/23 14:37 RB Desktop 05/30/23 14:38 RB 05/23/23 05/30/23 13:43 14:37 Wound Care Center Nurse 3 #1- R STUMP -Ulcer Cleansing Rinsed/ Irrigated with Saline -Primary Dressing Applied Nugauze, Plain Nugauze, 1/4in Iodoform 1/4in -Other Dressing nugauze moistened with dakins -Primary Dressing Covered/Secured with Dry Gauze, Dry Gauze,Dry Secured with Gauze & Roll Tape Gauze,Secured with Tape -Nugauze, Iodoform 1/4in 1 -Nugauze, Plain 1/4in 1 Treatment Response Procedure Tolerated Well Pain Scale: 0-10 Numeric Is Patient Pain Free? 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 The outside diameter has decreased in size. Erythema and warmth remains resolved. Still noting milky yellow drainage. No foul odor. She has followed up with her orthopedic surgeon. No plans for surgical intervention at this time. She does have follow-up in another 4 weeks. Do think if persistent depth that it may be beneficial to have operative debridement withbone biopsy to r/o chronic osteo. Will extend Bactrim therapy. Will obtain BMP to check K and GFR/Creatinine. No evidence of osteomyelitis on XR. Will continue to pack with dakins-soaked Nugauze and cover with foam-border or bulky dry dressing. Continue to avoid use of prosthetic so as not to apply further pressure to the area. She will return to the wound center in 1 week, sooner if needed. We discussed the red flag signs/symptoms which should lead her to present to the ER, she and her daughter acknowledged understanding. 05/30/23 0063 <Electronically signed by Jillian MARIE> Cosigner Signature (if applicable): CC: ~ Signed [facility] Work Phone: 1(111) 989-588403-07-2024 Progress note Author Jillian Livingston [facility] May 23, 2023 3:58pm Note Date/Time May 23, 2023 3:08 pm [facility] [address] [place] [address] Progress Note - Wound Care 05/23/23 1506 MR#: [id number] Acct: [id number] Name: SANJUANITA JERRY Rep #:[id number] : 1965 57 From: Jillian MARIE PCP: Dr. Art Herman MD Status :REG RCR Location: History of Present Illness Date of Service: 05/23/23 Chief Complaint: R BKA stump wound History of Wound: Sanjuanita Jerry is a 57 y/o female who presents to the wound healing center today for management of a right BKA stump wound. She is accompanied to the appointment today by her daughter who helps to supplement herhistory and also helps with her wound care. 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 At that time, they explored and washed out proximally in her thigh as well. Subsequently she initially had wound vac placed prior to secondary closure. She reports that the amputation site did ultimately heal fully and she was able to obtain a prosthetic. She had been doing very well withher prosthetic and getting back to work etc. Unfortunately about 1-2 months ago she developed a wound on her amputation stump due to the prosthetic rubbing in this area. She presented to the [facility] ER on 02/26/23 with concern of infection. She was admitted from 02/26-03/01 for IV antibiotics. Wound cultures were positive for staph aureus, blood cultures were negative. She was evaluated by orthopedics at that time as well. XR and CT scan performed during that admission were negative for signs of osteomyelitis. She was seen at the wound center from 03/15/24 - 04/19/23 prior to discharge. Attime of discharge, wound had epithelialized. Patient reports it remained stable until earlier this week when she first wore her prosthetic again at which time that area "busted open" and was noted to have deeper tracking prompting her return. There is some erythema surrounding the wound, they deny significant drainage. She denies any N/V, F/C. Subjective Subjective She has been seen by her orthopedic surgeon Dr. Riggs at [facility] who performed her BKA. She reports that he did not feel any surgery was needed right now, but she is to follow up with him in 1 month to reassess. They have been packing the wound at home as directed. No new/worsening drainage,redness, swelling. No N/V, F/C. She has been taking the Bactrim as prescribed without any adverse effects. Objective Data Objective Data Vital Signs: Vital Signs Temp Pulse Resp BP 97 F L 45 L 18 132/54 H 05/23/23 13:11 05/23/23 13:11 05/23/23 13:11 05/23/23 13:11 Weight: 96 lb Body Mass Index (BMI) 18.7 Charges/Coding Procedures Integumentary 111xxx-113xx: 80038 Ani subq tissue 20 sq cm/< Physical Exam Const alert, oriented x3, no apparent distress and average body habitus General Appearance: cooperative HEENT normocephalic, head/scalp atraumatic, hearing grossly normal bilaterally, external ears normal and external nose normal Eyes EOMs intact bilaterally General Eye: normal appearance of both eyes Resp Effort and Inspection: able to speak in complete sentences; Negative for labored, stridor, retractions, uses accessory muscles or audible wheezes Extremity Extremity Narrative: R BKA Skin Wounds: wounds noted Wound Narrative: Wound to R BKA stump which probes to bone. The erythema and warmth in the periwound has resolved. No significant drainage. Psych mental status grossly normal Appearance: grossly normal Attitude: calm and engaged Activity / Motor Behavior: appropriate eye contact Judgement: judgement good Debridement Note Debridement Note Wound debrided: R BKA Laterality: Right Type of Debridement: Excisional debridement Anesthesia Used: 5% Lidocaine Gel Depth: Down to and including healthy tissue and to muscle Percentage of wound debrided: 100 Instrument Used: 3mm curette Tissue Removed: slough, devitalized tissue Severity: Necrosis of Muscle Amount of bleeding with debridement: Mild Bleeding Controlled with: Pressure Patient tolerated procedure: Patient tolerated procedure well Post-Debridement Measurements and Additional Note: Post-Debridement Measurements/Treatment SUE - Nurse 1 - General Ulcer Assessment Start: 05/23/23 13:10 Freq: Status: Active Protocol: APRIL Activity Type Activity Date Activity User E-sign Co-sign Detail Recorded Client Recorded Date Recorded By Document 05/23/23 13:11 Desktop 05/23/23 13:14 05/23/23 13:11 - Today's Visit Information Type of service Follow-up Visit (Physician/AUTO WASH BUFFER ) Arrival Mode Wheelchair Transfer Assistance None Patient Identification Verified (Name & Yes ) Patient Requires Transmission-Based No Precautions Height and Weight Body Mass Index (BMI) 18.7 BMI Classification Normal Vital Signs Temperature (97.8 F-99.1 F) 97 F L Temperature Source Temporal Pulse Rate (60-100) 45 L Pulse Location Monitor Respiratory Rate (12-18) 18 Respiratory rate source Observation Blood Pressure (90/60-120/80) 132/54 H Blood Pressure Mean (mm Hg) 80 Source Monitor Position Semi-Fowlers Blood Pressure Location Left Arm History Since Last Visit- (Skip if this is Patient's initial visit) Have you changed medications since your No last visit? Any new allergies or adverse reactions No Had a fall/change in ADL's that may No increase risk of falls Signs or symptoms of abuse and/or No neglect since last visit Have you been in the hospital since your No last visit? Has dressing in place as prescribed Yes Has compression in place as prescribed No Has offloadiing in place as prescribed No Experienced any changes in pain level or No management Pain Scale: 0-10 Numeric Is Patient Pain Free? Yes - Nurse 1 - General Ulcer Measurement Start: 05/23/23 13:10 Freq: Status: Active Protocol: Activity Type Activity Date Activity User E-sign Co-sign Detail Recorded Client Recorded Date Recorded By Document 05/23/23 13:11 [employer] 05/23/23 13:14 05/23/23 13:11 Wound Center Nurse 1 #1- R STUMP -Combined with other wound No -Current Size (cm) - Length 0.8 -Current Size (cm) - Width 0.4 -Current Size (cm) - Depth 0.5 -Total Square Cm 0.32 -Tunneling Yes -Tunneling Position (O'clock) 12 -Tunneling Distance (cm) 1 -Undermining/Tunneling No -Circular Undermining No -Exudate Amt Medium -Exudate Type Serosanguineous -Wound Margin Distinct, Outline Attached -Granulation Amt Medium (34-66%) -Granulation Quality Belen -Slough/Fibrin Yes -Necrosis Amt Medium (34-66%) -Necrotic Tissue Type Adherent Slough -Structure Exposed N/A -Texture (Edwina-wound Skin Appearance) Assessed -Moisture (Edwina-wound Skin Appearance) Maceration -Color (Edwina-wound Skin Appearance) Assessed -Temperature (Edwina-wound Skin No Abnormality Appearance) (Pt Warm) -Tenderness on Palpation (Edwina-wound No Skin Appearance) -Ulcer Cleansing Wound Cleanser -Foul Odor after Cleansing No -Anesthetic Used 5% Lidocaine Gel - Nurse 2 - General Ulcer CM Notes Start: 05/23/23 13:10 Freq: Status: Active Protocol: Activity Type Activity Date Activity User E-sign Co-sign Detail Recorded Client Recorded Date Recorded By Document 05/23/23 13:23 Desktop 05/23/23 13:27 05/23/23 13:23 Wound Center Nurse 2 -Time 13:25 -Correct Patient Yes -Correct Side, Site, Position Yes -Correct Procedure Yes -Procedure Performed Yes -Type of Procedure Debridement -Clinical Debridement Subcutaneous -Tissue Removed Subcutaneous -Post Debridement (cm) - Length 0.7 -Post Debridement (cm) - Width 0.4 -Post Debridement (cm) - Depth 2.2 -Total Square (Post) (cm) 0.28 -Area of Debridement (cm) - Length 0.7 -Area of Debridement (cm) - Width 0.4 -Total Square (Area) (cm) 0.28 -Tunneling No -Undermining/Tunneling No -Circular Undermining No -Wound/Ulcer Outcome Not Healed -Ulcer Cleansing Rinsed/ Irrigated with Saline -Foul Odor after Cleansing No -Bleeding Controlled with Pressure -Treatment Response Procedure Tolerated Well -Debridement - Subq, 1st 20sq cm Yes Pain Scale: 0-10 Numeric Is Patient Pain Free? Yes - Nurse 3 - General Ulcer D/C NN Start: 05/23/23 13:10 Freq: Status: Active Protocol: Activity Type Activity Date Activity User E-sign Co-sign Detail Recorded Client Recorded Date Recorded By Document 05/23/23 13:43 KW Desktop 05/23/23 13:47 KW 05/23/23 13:43 Wound Care Center Nurse 3 #1- R STUMP -Primary Dressing Applied Nugauze, Plain 1/4in -Primary Dressing Covered/Secured with Dry Gauze, Secured with Tape -Nugauze, Plain 1/4in 1 Pain Scale: 0-10 Numeric Is Patient Pain Free? 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 The outside diameter has decreased in size. There is resolved erythema and warmth. She has followed up with her orthopedic surgeon. No plans for surgical intervention at this time. She does have follow-up in another 4 weeks. Continue Bactrim BID x 14 days. No evidence of osteomyelitis on XR. Will continue to pack with dakins-soaked Nugauze and cover with foam-border or bulky dry dressing. Continue to avoid use of prosthetic so as not to apply further pressure to the area. She will return to the wound center in 1 week, sooner if needed. We discussed the red flag signs/symptoms which should lead her to present to the ER, she and her daughter acknowledged understanding. 05/23/23 3225 <Electronically signed by Jillian MARIE> Cosigner Signature (if applicable): CC: ~ Signed [facility] Work Phone: 1(941) 228-712903-05-2024 NoteHNO ID: [id number] Author: BHARATI RIGGS MD Service: ? Author Type: Physician Type: Progress Notes Filed: 05/21/2023 11:10 Note Text: Chief complaint: Open wound right below-knee amputation. History of present illness: Patient is known to myself. 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 Has been doing extremely well walking in her prosthesis. She has been back to work for 3 months. They state they have had a couple wounds from rubbing on the inside of her prosthesis. They got the first 1 to heal, they have another 1 present now. They were told that there is an infection that she may need a revision amputation. They come in today for evaluation. Denies fevers or chills. States they have been on some oral antibiotics. Of note, prior to wearing the prosthesis, she has had no issues with wound healing. For the patient's past medical history, past surgical history, medications, allergies, family history, social history, and review of systems please refer to medical history in chart. Physical exam: The patient is alert and oriented no acute distress. Answers questions appropriate. Has a normal affect. Examination of the right lower extremity shows wounds to be well-healed. There is a small opening just proximal to her incision site. Serous drainage. No surrounding erythema. No expressible drainage. This is over soft tissue and the end of her tibia. Assessment: #1 right below-knee amputation. #2 gas gangrene right lower extremity. Plan: Had a long discussion with patient and family member regarding her current situation. I do not think there is a deep infection within her leg. She has no obvious signs of this. She has had no wound issues or drainage issues prior to wearing her prosthesis and having the prosthesis rub on this pressure point. I would like for her to refrain from wearing her prosthesis at this time. She is scheduled to see the wound center on . Like to do local wound care to get this to heal. I do not think we need to do any additional surgery at this time though this may be a possibility in the future. Expressed understanding of this plan. She will use [facility] while waiting to see the wound center. I will see her back in 4 weeks. If there is any questions or concerns, she will contact the office. Questions were answered.[facility] 05-20-2023 Miscellaneous Notes* Telephone Encounter - Jefe Colindres - 05/20/2023 10:40 AM EST Called PT and scheduled appt. Jefe Colindres May 20, 2023 10:40 AM * Telephone Encounter - Jefe Colindres - 05/20/2023 10:40 AM EST ----- Message from Jane Kingston sent at 05/20/2023 9:07 AM EST ----- Regarding: Ortho-Keely- leg amputation follow up Patient has been identified by name and Date of (Y/N): y Patient: Sanjuanita Jerry Date of : 1965 Previous Provider Seen: Keely Body Part(s) Identified: r leg Diagnosis/Reason For Visit: amputation on leg- concern about bone on leg- also this past week had sore that busted open Reason for the call/escalation: rfv not in tool If reason for call/escalation is discharge from ED/ER or Hospital, which facility was the patient seen at: n/a Was an appointment scheduled (Y/N): n/a Person calling if other than patient: n/a Return call to if other than patient: n/a Best contact number: [phone] Thank you, Jane Kingston May 20, 2023 9:07 AM [facility] Progress note Author Jillian Livingston [facility] April 19, 2023 9:33am Note Date/Time April 19, 2023 9 :33am [facility] [address] [place] [address] Progress Note - Wound Care 04/19/23 0928 MR#: [id number] Acct: [id number] Name: SANJUANITA JERRY Rep #:[id number] : 1965 57 From: Jillian MARIE PCP: Dr. Art Herman MD Status :REG RCR Location: History of Present Illness Date of Service: 04/18/23 Chief Complaint: R BKA stump wound History of Wound: Sanjuanita Jerry is a 57 y/o female who presents to the wound healing center today for management of a right BKA stump wound. She is accompanied to the appointment today by her daughter who helps to supplement herhistory and also helps with her wound care. 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 At that time, they explored and washed out proximally in her thigh as well. Subsequently she initially had wound vac placed prior to secondary closure. She reports that the amputation site did ultimately heal fully and she was able to obtain a prosthetic. She had been doing very well withher prosthetic and getting back to work etc. Unfortunately about 1-2 months ago she developed a wound on her amputation stump due to the prosthetic rubbing in this area. She presented to the [facility] ER on 02/26/23 with concern of infection. She was admitted from 02/26-03/01 for IV antibiotics. Wound cultures were positive for staph aureus, blood cultures were negative. She was evaluated by orthopedics at that time as well. XR and CT scan performed during that admission were negative for signs of osteomyelitis. She was discharged with a course of Bactrim and referral here. At home, they have been doing daily dressing changes with iodoform and dry gauzedressing. Her daughter reports it has made significant improvement since her hospital stay. Subjective Subjective Patient reports doing well over the last couple weeks. No nausea, vomiting, fevers, chills, increased drainage/redness/swelling around the wound. Her daughter feels that the wound is healed. Objective Data Objective Data Vital Signs: Vital Signs Temp Pulse Resp BP O2 Del Method 97.4 F L 89 18 137/64 H Room Air 04/18/23 13:40 04/18/23 13:40 04/18/23 13:40 04/18/23 13:40 04/18/23 13:40 Oxygen Delivery Method Room Air Weight: 96 lb Body Mass Index (BMI) 18.7 Charges/Coding Visit Charges Office Visits / Consults: 06638 OV L3 Est 20min Physical Exam Const alert, oriented x3, no apparent distress and average body habitus General Appearance: cooperative HEENT normocephalic, head/scalp atraumatic, hearing grossly normal bilaterally, external ears normal and external nose normal Eyes EOMs intact bilaterally General Eye: normal appearance of both eyes Resp Effort and Inspection: able to speak in complete sentences; Negative for labored, stridor, retractions, uses accessory muscles or audible wheezes Extremity Extremity Narrative: R BKA Skin Wounds: wounds noted Wound Narrative: Small wound of right BKA has fully epithelialized this week. There is no surrounding erythema, fluctuance, induration, warmth, swelling. Psych mental status grossly normal Appearance: grossly normal Attitude: calm and engaged Activity / Motor Behavior: appropriate eye contact Judgement: judgement good Debridement Note Debridement Note No debridement was completed: No debridement was completed today Post-Debridement Measurements and Additional Note: Post-Debridement Measurements/Treatment - Nurse 1 - General Ulcer Assessment Start: 04/18/23 13:39 Freq: Status: Active Protocol: APRIL Activity Type Activity Date Activity User E-sign Co-sign Detail Recorded Client Recorded Date Recorded By Document 04/18/23 13:40 [facility] [employer] 04/18/23 13:46 [facility] 04/18/23 13:40 WC - Today's Visit Information Type of service Follow-up Visit (Physician/AUTO WASH BUFFER ) Arrival Mode Wheelchair Transfer Assistance None Accompanied by DAUGHTER Patient Identification Verified (Name & Yes ) Patient Requires Transmission-Based No Precautions Height and Weight Body Mass Index (BMI) 18.7 BMI Classification Normal Vital Signs Temperature (97.8 F-99.1 F) 97.4 F L Temperature Source Temporal Pulse Rate (60-100) 89 Pulse Location Monitor Respiratory Rate (12-18) 18 Respiratory rate source Observation Oxygen Delivery Method Room Air Blood Pressure (90/60-120/80) 137/64 H Blood Pressure Mean (mm Hg) 88 Source Monitor Position Sitting Blood Pressure Location Right Forearm History Since Last Visit- (Skip if this is Patient's initial visit) Have you changed medications since your No last visit? Any new allergies or adverse reactions No Had a fall/change in ADL's that may No increase risk of falls Signs or symptoms of abuse and/or No neglect since last visit Have you been in the hospital since your No last visit? Has dressing in place as prescribed Yes Has offloadiing in place as prescribed N/A Experienced any changes in pain level or No management Pain Scale: 0-10 Numeric Is Patient Pain Free? Yes - Nurse 1 - General Ulcer Measurement Start: 04/18/23 13:39 Freq: Status: Active Protocol: Activity Type Activity Date Activity User E-sign Co-sign Detail Recorded Client Recorded Date Recorded By Document 04/18/23 13:40 [facility] [address] [employer] 04/18/23 13:46 [facility] 04/18/23 13:40 Wound Center Nurse 1 #1- R STUMP -Combined with other wound No -Current Size (cm) - Length 0.1 -Current Size (cm) - Width 0.1 -Current Size (cm) - Depth 0.1 -Total Square Cm 0.01 -Date of Last Picture (Recall this 04/18/23 field) -Photo Taken Yes -Epithelialization Large 67-100% -Tunneling No -Undermining/Tunneling No -Circular Undermining No -Exudate Amt None Present -Wound Margin Distinct, Outline Attached -Necrosis Amt Small (1-33%) -Necrotic Tissue Type Eschar -Texture (Edwina-wound Skin Appearance) Assessed, Scarring -Moisture (Edwina-wound Skin Appearance) Assessed,Dry/ Scaly -Color (Edwina-wound Skin Appearance) Assessed -Temperature (Edwina-wound Skin No Abnormality Appearance) (Pt Warm) -Tenderness on Palpation (Edwina-wound No Skin Appearance) -Ulcer Cleansing Rinsed/ Irrigated with Saline -Foul Odor after Cleansing No -Anesthetic Used 5% Lidocaine Gel - Nurse 2 - General Ulcer CM Notes Start: 04/18/23 13:39 Freq: Status: Active Protocol: Activity Type Activity Date Activity User E-sign Co-sign Detail Recorded Client Recorded Date Recorded By Document 04/18/23 16:20 PL [id number] 04/18/23 16:21 PL 04/18/23 16:20 Wound Center Nurse 2 -Procedure Performed No -Wound/Ulcer Outcome Healed- Epithelialized Pain Scale: 0-10 Numeric Is Patient Pain Free? Yes - Nurse 3 - General Ulcer D/C NN Start: 04/18/23 13:39 Freq: Status: Active Protocol: Activity Type Activity Date Activity User E-sign Co-sign Detail Recorded Client Recorded Date Recorded By Document 04/18/23 13:59 DL Desktop 04/18/23 14:00 DL 04/18/23 13:59 Wound Care Center Nurse 3 #1- R STUMP -Ulcer Cleansing Rinsed/ Irrigated with Saline -Foul Odor after Cleansing No -Primary Dressing Applied C Hydrogel ($), Mepilex Border -Mepilex Border 1 Treatment Response Procedure Tolerated Well Pain Scale: 0-10 Numeric Is Patient Pain Free? Yes WC - Visit Discharge Discharge Condition Stable Ambulatory Status Wheelchair Transportation Private Auto Notes: Healed/ discharged. 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 She is provided with collagen hydrogel. Continue to apply collagen hydrogel to the wound and pat/protect with either dry gauze or foam border dressing for another 1 to 2 weeks to protect and support the newly healed tissue. I would continue to refrain from utilizing her prosthetic for another 1 to 2 weeks untilshe has had it adjusted by [facility] to reduce trauma/pressure to the area of the wound. I have provided her with a note for return to work. She states she does not believe she needs any clearance for [facility]. I have offered another appointment in 2 weeks to assure this area remains healed, but patient politely declines and she will return as needed. She is discharged from the wound healing center today. 04/19/23 0933 <Electronically signed by Jillian MARIE> Cosigner Signature (if applicable): CC: ~ Signed [facility] Work Phone: 1(993) 150-392501-19-2024 Progress note Author Jillian Livingston [facility] April 05, 2023 8:07am Note Date/Time April 04, 2023 5 :12pm [facility] [address] [place] [address] Progress Note - Wound Care 04/04/23 1711 MR#: [id number] Acct: [id number] Name: SANJUANITA JERRY Rep #:[id number] : 1965 57 From: Jillian MARIE PCP: Dr. Art Herman MD Status :REG RCR Location: History of Present Illness Date of Service: 04/04/23 Chief Complaint: R BKA stump wound History of Wound: Sanjuanita Jerry is a 57 y/o female who presents to the wound healing center today for management of a right BKA stump wound. She is accompanied to the appointment today by her daughter who helps to supplement herhistory and also helps with her wound care. 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 At that time, they explored and washed out proximally in her thigh as well. Subsequently she initially had wound vac placed prior to secondary closure. She reports that the amputation site did ultimately heal fully and she was able to obtain a prosthetic. She had been doing very well withher prosthetic and getting back to work etc. Unfortunately about 1-2 months ago she developed a wound on her amputation stump due to the prosthetic rubbing in this area. She presented to the [facility] ER on 02/26/23 with concern of infection. She was admitted from 02/26-03/01 for IV antibiotics. Wound cultures were positive for staph aureus, blood cultures were negative. She was evaluated by orthopedics at that time as well. XR and CT scan performed during that admission were negative for signs of osteomyelitis. She was discharged with a course of Bactrim and referral here. At home, they have been doing daily dressing changes with iodoform and dry gauzedressing. Her daughter reports it has made significant improvement since her hospital stay. Subjective Subjective She reports she still has not received her wound care supplies. Has continued tomake due with the extra supplies we sent with her last week. No issues with dressing changes. Her daughter performs her dressing changes and feels the wound continues to seem to be decreasing in depth. She does note that the wound seems to be scabbing over". They report no new or worsening drainage, foul odor, redness, swelling. Objective Data Objective Data Vital Signs: Vital Signs Temp Pulse Resp BP O2 Del Method 97.1 F L 106 H 18 149/71 H Room Air 04/04/23 13:50 04/04/23 13:50 04/04/23 13:50 04/04/23 13:50 04/04/23 13:50 Oxygen Delivery Method Room Air Weight: 96 lb Body Mass Index (BMI) 18.7 Charges/Coding Procedures Integumentary 111xxx-113xx: 16911 Ani subq tissue 20 sq cm/< Physical Exam Const alert, oriented x3, no apparent distress and average body habitus General Appearance: cooperative HEENT normocephalic, head/scalp atraumatic, hearing grossly normal bilaterally, external ears normal and external nose normal Eyes EOMs intact bilaterally General Eye: normal appearance of both eyes Resp Effort and Inspection: able to speak in complete sentences; Negative for labored, stridor, retractions, uses accessory muscles or audible wheezes Extremity Extremity Narrative: R BKA Skin Wounds: wounds noted Wound Narrative: R BKA with small wound in the midline of the stump, slightly decreased in size this week. Depth/tracking continues to improve. The wound base is pink tissue with minimal slough. Mild serous drainage. No surrounding erythema, focal swelling, fluctuance/induration, foul odor, purulence. Psych mental status grossly normal Appearance: grossly normal Attitude: calm and engaged Activity / Motor Behavior: appropriate eye contact Judgement: judgement good Debridement Note Debridement Note Wound debrided: R BKA stump Laterality: Right Type of Debridement: Excisional debridement Anesthesia Used: 4% Lidocaine Solution Depth: Down to and including healthy tissue and in the subcutaneous layer Percentage of wound debrided: 100 Instrument Used: 3mm curette Tissue Removed: slough, devitalized tissue Severity: Fat Layer Exposed Amount of bleeding with debridement: Mild Bleeding Controlled with: Pressure Patient tolerated procedure: Patient tolerated procedure well Post-Debridement Measurements and Additional Note: Post-Debridement Measurements/Treatment - Nurse 1 - General Ulcer Assessment Start: 03/21/23 13:09 Freq: Status: Active Protocol: APRIL Activity Type Activity Date Activity User E-sign Co-sign Detail Recorded Client Recorded Date Recorded By Document 03/21/23 13:09 [email or web address] Desktop 03/21/23 13:16 [email or web address] Document 04/04/23 13:50 [email or web address] Desktop 04/04/23 13:57 KW 03/21/23 04/04/23 13:09 13:50 - Today's Visit Information Type of service Follow-up Visit Follow-up Visit (Physician/AUTO WASH BUFFER (Physician/AUTO WASH BUFFER ) ) Arrival Mode Wheelchair Wheelchair Transfer Assistance None Accompanied by heriberto daughter Patient Identification Verified (Name & Yes Yes ) Patient Requires Transmission-Based No Precautions Finger Stick Blood Sugar(mg/dl) (if 185 indicated): Blood Sugar Stated by Patient Height and Weight Body Mass Index (BMI) 18.7 18.7 BMI Classification Normal Normal Vital Signs Temperature (97.8 F-99.1 F) 97.9 F 97.1 F L Temperature Source Temporal Temporal Pulse Rate (60-100) 101 H 106 H Pulse Location Monitor Monitor Respiratory Rate (12-18) 16 18 Respiratory rate source Observation Observation Oxygen Delivery Method Room Air Room Air Blood Pressure (90/60-120/80) 145/72 H 149/71 H Blood Pressure Mean (mm Hg) 96 97 Source Monitor Monitor Position Sitting Sitting Blood Pressure Location Right Arm Right Arm History Since Last Visit- (Skip if this is Patient's initial visit) Have you changed medications since your No No last visit? Any new allergies or adverse reactions No No Had a fall/change in ADL's that may No No increase risk of falls Signs or symptoms of abuse and/or No No neglect since last visit Have you been in the hospital since your No No last visit? Has dressing in place as prescribed Yes Yes Has compression in place as prescribed N/A Yes Has offloadiing in place as prescribed N/A N/A Experienced any changes in pain level or No No management Left Footwear Regular Shoe Regular Shoe Right Footwear No Footwear Pain Scale: 0-10 Numeric Is Patient Pain Free? Yes Yes WC - Nurse 1 - General Ulcer Measurement Start: 03/21/23 13:09 Freq: Status: Active Protocol: Activity Type Activity Date Activity User E-sign Co-sign Detail Recorded Client Recorded Date Recorded By Document 03/21/23 13:09 [employer] Desktop 03/21/23 13:16 [employer] Document 04/04/23 13:50 KW Desktop 04/04/23 13:57 KW 03/21/23 04/04/23 13:09 13:50 Wound Center Nurse 1 #1- R STUMP -Combined with other wound No -Current Size (cm) - Length 0.5 0.9 -Current Size (cm) - Width 0.4 0.4 -Current Size (cm) - Depth 0.3 0.1 -Total Square Cm 0.20 0.36 -Date of Last Picture (Recall this 03/21/23 04/04/23 field) -Photo Taken Yes Yes -Epithelialization None Present -Exudate Amt Medium Small -Exudate Type Purulent Serosanguineous -Wound Margin Distinct, Distinct, Outline Outline Attached Attached -Granulation Amt Large (67-100%) -Granulation Quality Red -Slough/Fibrin Yes -Necrosis Amt Small (1-33%) -Necrotic Tissue Type Adherent Slough -Texture (Edwina-wound Skin Appearance) Assessed, Assessed Scarring -Moisture (Edwina-wound Skin Appearance) Assessed Assessed,Dry/ Scaly -Color (Edwina-wound Skin Appearance) Assessed Assessed -Temperature (Edwina-wound Skin No Abnormality No Abnormality Appearance) (Pt Warm) (Pt Warm) -Tenderness on Palpation (Edwina-wound No Skin Appearance) -Ulcer Cleansing Rinsed/ Rinsed/ Irrigated with Irrigated with Saline Saline -Foul Odor after Cleansing No -Anesthetic Used 5% Lidocaine 5% Lidocaine Gel Gel -Wound Comment(s) scabbed WC - Nurse 2 - General Ulcer CM Notes Start: 03/21/23 13:09 Freq: Status: Active Protocol: Activity Type Activity Date Activity User E-sign Co-sign Detail Recorded Client Recorded Date Recorded By Document 03/21/23 16:19 PL [id number] 03/21/23 16:20 PL Document 04/04/23 16:12 PL [email or web address] 04/04/23 16:14 PL 03/21/23 04/04/23 16:19 16:12 Wound Center Nurse 2 #1- R STUMP -Time 13:42 14:22 -Correct Patient Yes Yes -Correct Side, Site, Position Yes Yes -Correct Procedure Yes Yes -Procedure Performed Yes Yes -Type of Procedure Debridement Debridement -Clinical Debridement Subcutaneous Subcutaneous -Tissue Removed Subcutaneous Subcutaneous -Post Debridement (cm) - Length 0.6 0.6 -Post Debridement (cm) - Width 0.5 0.4 -Post Debridement (cm) - Depth 0.2 0.2 -Total Square (Post) (cm) 0.30 0.24 -Area of Debridement (cm) - Length 0.6 0.6 -Area of Debridement (cm) - Width 0.5 0.4 -Total Square (Area) (cm) 0.30 0.24 -Tunneling Yes No -Tunneling Position (O'clock) 12 -Tunneling Distance (cm) 0.4 -Undermining/Tunneling No -Circular Undermining No -Wound/Ulcer Outcome Not Healed Not Healed -Ulcer Cleansing Rinsed/ Rinsed/ Irrigated with Irrigated with Saline Saline -Foul Odor after Cleansing No No -Bioengineered Tissue No No -Bleeding Controlled with Pressure Pressure -Treatment Response Procedure Procedure Tolerated Well Tolerated Well -Debridement - Subq, 1st 20sq cm Yes Yes Pain Scale: 0-10 Numeric Is Patient Pain Free? Yes Yes WC - Nurse 3 - General Ulcer D/C NN Start: 03/21/23 13:09 Freq: Status: Active Protocol: Activity Type Activity Date Activity User E-sign Co-sign Detail Recorded Client Recorded Date Recorded By Document 03/21/23 14:01 Laptop 03/21/23 14:02 Document 04/04/23 14:44 Desktop 04/04/23 14:45 Document 04/04/23 14:49 [facility] Desktop 04/04/23 14:50 BMF 03/21/23 04/04/23 04/04/23 14:01 14:44 14:49 Wound Care Center Nurse 3 #1- R STUMP -Ulcer Cleansing Rinsed/ Not Cleansed Rinsed/ Irrigated with Irrigated with Saline Saline -Foul Odor after Cleansing No No No -Primary Dressing Applied Mepilex Border, Mepilex Border, Mepilex Border, Promogran NonAdherent NonAdherent Mai Matter Contact Layer, Contact Layer, Promogran Promogran Mai Matter Mai Matter -Primary Dressing Covered/Secured with Dry Gauze -Mepilex Border 1 1 1 -Promogran Mai Matter 1 1 1 Treatment Response Procedure Tolerated Well Pain Scale: 0-10 Numeric Is Patient Pain Free? 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 No signs/symptoms of infection on examtoday. Will continue to pack the wound with lightly moistened Mai. Will cover with adaptic to try to better preserve moisture in the wound bed. Will continue to follow with foam-border or bulky dry dressing to provide padding. Change daily or more often as needed to keep clean and dry. Wash gently with soap and water and pat to dry with dressing changes. Continue to wear stump organic chemistry teacher for compression. Elevate legs when resting. Continue to avoid utilizing prosthetic for now to avoid pressure to the area of the wound. We discussed the importance of maintaining good glycemic control. Try to reduce simple carbohydrates/sugars and increase protein intake to support healing. Return to the wound care center in 1 week. 04/05/23 0807 <Electronically signed by Jillian MARIE> Cosigner Signature (if applicable): CC: ~ Signed [facility] Work Phone: 1(994) 657-489601-05-2024 Progress note Author Jillian Livignston [facility] March 22, 2023 2:41pm Note Date/Time March 22, 2023 2: 41pm [facility] [address] [place] [address] Progress Note - Wound Care 03/22/23 1438 MR#: [id number] Acct: [id number] Name: SANJUANITA JERRY Rep #:[id number] : 1965 57 From: Jillian MARIE PCP: Dr. Art Herman MD Status :REG RCR Location: History of Present Illness Date of Service: 03/21/23 Chief Complaint: R BKA stump wound History of Wound: Sanjuanita Jerry is a 57 y/o female who presents to the wound healing center today for management of a right BKA stump wound. She is accompanied to the appointment today by her daughter who helps to supplement herhistory and also helps with her wound care. 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 At that time, they explored and washed out proximally in her thigh as well. Subsequently she initially had wound vac placed prior to secondary closure. She reports that the amputation site did ultimately heal fully and she was able to obtain a prosthetic. She had been doing very well withher prosthetic and getting back to work etc. Unfortunately about 1-2 months ago she developed a wound on her amputation stump due to the prosthetic rubbing in this area. She presented to the [facility] ER on 02/26/23 with concern of infection. She was admitted from 02/26-03/01 for IV antibiotics. Wound cultures were positive for staph aureus, blood cultures were negative. She was evaluated by orthopedics at that time as well. XR and CT scan performed during that admission were negative for signs of osteomyelitis. She was discharged with a course of Bactrim and referral here. At home, they have been doing daily dressing changes with iodoform and dry gauzedressing. Her daughter reports it has made significant improvement since her hospital stay. Subjective Subjective She reports she did not receive her wound care supplies this last week. Otherwise, has been making do with the supplies we sent her home with last week. No issues with dressing changes. Her daughter performs her dressing changes and feels the wound continues to seem to be decreasing in depth. They report nonew or worsening drainage, foul odor, redness, swelling. She did have her appointment with ENT earlier this week. They made some adjustments to her prosthesis but will make further adjustments once the wound is healed. Objective Data Objective Data Vital Signs: Vital Signs Temp Pulse Resp BP O2 Del Method 97.9 F 101 H 16 145/72 H Room Air 03/21/23 13:09 03/21/23 13:09 03/21/23 13:09 03/21/23 13:09 03/21/23 13:09 Oxygen Delivery Method Room Air Weight: 96 lb Body Mass Index (BMI) 18.7 Charges/Coding Procedures Integumentary 111xxx-113xx: 44384 Ani subq tissue 20 sq cm/< Physical Exam Const alert, oriented x3, no apparent distress and average body habitus General Appearance: cooperative HEENT normocephalic, head/scalp atraumatic, hearing grossly normal bilaterally, external ears normal and external nose normal Eyes EOMs intact bilaterally General Eye: normal appearance of both eyes Resp Effort and Inspection: able to speak in complete sentences; Negative for labored, stridor, retractions, uses accessory muscles or audible wheezes Extremity Extremity Narrative: R BKA Skin Wounds: wounds noted Wound Narrative: R BKA with small wound in the midline of the stump, slightly decreased in size this week. The wound has some tracking proximally, but does not probe to bone. The wound base is pink tissue with minimal slough. Mild serous drainage. No surrounding erythema, focal swelling, fluctuance/induration, foul odor, purulence. Psych mental status grossly normal Appearance: grossly normal Attitude: calm and engaged Activity / Motor Behavior: appropriate eye contact Judgement: judgement good Debridement Note Debridement Note Wound debrided: R BKA stump Laterality: Right Type of Debridement: Excisional debridement Anesthesia Used: 4% Lidocaine Solution Depth: Down to and including healthy tissue and in the subcutaneous layer Percentage of wound debrided: 100 Instrument Used: 3mm curette Tissue Removed: slough, devitalized tissue Severity: Fat Layer Exposed Amount of bleeding with debridement: Mild Bleeding Controlled with: Pressure Patient tolerated procedure: Patient tolerated procedure well Post-Debridement Measurements and Additional Note: Post-Debridement Measurements/Treatment WC - Nurse 1 - General Ulcer Assessment Start: 03/21/23 13:09 Freq: Status: Active Protocol: .LOWEXGilson Activity Type Activity Date Activity User E-sign Co-sign Detail Recorded Client Recorded Date Recorded By Document 03/21/23 13:09 [facility] Desktop 03/21/23 13:16 [facility] 03/21/23 13:09 - Today's Visit Information Type of service Follow-up Visit (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/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 ) Arrival Mode Wheelchair Transfer Assistance None Accompanied by heriberto Patient Identification Verified (Name & Yes ) Patient Requires Transmission-Based No Precautions Height and Weight Body Mass Index (BMI) 18.7 BMI Classification Normal Vital Signs Temperature (97.8 F-99.1 F) 97.9 F Temperature Source Temporal Pulse Rate (60-100) 101 H Pulse Location Monitor Respiratory Rate (12-18) 16 Respiratory rate source Observation Oxygen Delivery Method Room Air Blood Pressure (90/60-120/80) 145/72 H Blood Pressure Mean (mm Hg) 96 Source Monitor Position Sitting Blood Pressure Location Right Arm History Since Last Visit- (Skip if this is Patient's initial visit) Have you changed medications since your No last visit? Any new allergies or adverse reactions No Had a fall/change in ADL's that may No increase risk of falls Signs or symptoms of abuse and/or No neglect since last visit Have you been in the hospital since your No last visit? Has dressing in place as prescribed Yes Has compression in place as prescribed N/A Has offloadiing in place as prescribed N/A Experienced any changes in pain level or No management Left Footwear Regular Shoe Pain Scale: 0-10 Numeric Is Patient Pain Free? Yes - Nurse 1 - General Ulcer Measurement Start: 03/21/23 13:09 Freq: Status: Active Protocol: Activity Type Activity Date Activity User E-sign Co-sign Detail Recorded Client Recorded Date Recorded By Document 03/21/23 13:09 [facility] Desktop 03/21/23 13:16 [facility] 03/21/23 13:09 Wound Center Nurse 1 #1- R STUMP -Combined with other wound No -Current Size (cm) - Length 0.5 -Current Size (cm) - Width 0.4 -Current Size (cm) - Depth 0.3 -Total Square Cm 0.20 -Date of Last Picture (Recall this 03/21/23 field) -Photo Taken Yes -Epithelialization None Present -Exudate Amt Medium -Exudate Type Purulent -Wound Margin Distinct, Outline Attached -Granulation Amt Large (67-100%) -Granulation Quality Red -Slough/Fibrin Yes -Necrosis Amt Small (1-33%) -Necrotic Tissue Type Adherent Slough -Texture (Edwina-wound Skin Appearance) Assessed, Scarring -Moisture (Edwina-wound Skin Appearance) Assessed -Color (Edwina-wound Skin Appearance) Assessed -Temperature (Edwina-wound Skin No Abnormality Appearance) (Pt Warm) -Tenderness on Palpation (Edwina-wound No Skin Appearance) -Ulcer Cleansing Rinsed/ Irrigated with Saline -Foul Odor after Cleansing No -Anesthetic Used 5% Lidocaine Gel WC - Nurse 2 - General Ulcer CM Notes Start: 03/21/23 13:09 Freq: Status: Active Protocol: Activity Type Activity Date Activity User E-sign Co-sign Detail Recorded Client Recorded Date Recorded By Document 03/21/23 16:19 PL [id number] 03/21/23 16:20 PL 03/21/23 16:19 Wound Center Nurse 2 -Time 13:42 -Correct Patient Yes -Correct Side, Site, Position Yes -Correct Procedure Yes -Procedure Performed Yes -Type of Procedure Debridement -Clinical Debridement Subcutaneous -Tissue Removed Subcutaneous -Post Debridement (cm) - Length 0.6 -Post Debridement (cm) - Width 0.5 -Post Debridement (cm) - Depth 0.2 -Total Square (Post) (cm) 0.30 -Area of Debridement (cm) - Length 0.6 -Area of Debridement (cm) - Width 0.5 -Total Square (Area) (cm) 0.30 -Tunneling Yes -Tunneling Position (O'clock) 12 -Tunneling Distance (cm) 0.4 -Wound/Ulcer Outcome Not Healed -Ulcer Cleansing Rinsed/ Irrigated with Saline -Foul Odor after Cleansing No -Bioengineered Tissue No -Bleeding Controlled with Pressure -Treatment Response Procedure Tolerated Well -Debridement - Subq, 1st 20sq cm Yes Pain Scale: 0-10 Numeric Is Patient Pain Free? Yes - Nurse 3 - General Ulcer D/C NN Start: 03/21/23 13:09 Freq: Status: Active Protocol: Activity Type Activity Date Activity User E-sign Co-sign Detail Recorded Client Recorded Date Recorded By Document 03/21/23 14:01 Laptop 03/21/23 14:02 JF 03/21/23 14:01 Wound Care Center Nurse 3 #1- R STUMP -Ulcer Cleansing Rinsed/ Irrigated with Saline -Foul Odor after Cleansing No -Primary Dressing Applied Mepilex Border, Promogran Mai Matter -Primary Dressing Covered/Secured with Dry Gauze -Mepilex Border 1 -Promogran Mai Matter 1 Pain Scale: 0-10 Numeric Is Patient Pain Free? 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 No signs/symptoms of infection on examtoday. Will continue to pack the wound with lightly moistened Mai. Cover with foam border or dry gauze dressing. Change daily or more often as needed to keep cleanand dry. Wash gently with soap and water and pat to dry with dressing changes. Continue to wear stump organic chemistry teacher for compression. Elevate legs when resting. Continue to avoid utilizing prosthetic for now to avoid pressure to the area of the wound. We discussed the importance of maintaining good glycemic control. Try to reduce simple carbohydrates/sugars and increase protein intake to support healing. Return to the wound care center in 1 week. 03/22/23 1441 <Electronically signed by Jillian MARIE> Cosigner Signature (if applicable): CC: ~ Signed [facility] Work Phone: 1(498) 766-910012-21-2023 Miscellaneous Notes* Telephone Encounter - Maribell Amanda OCCA - 03/07/2023 8:27 AM EST TC to patient who verbalized understanding of providers message below. No questions at this time. JOSE English * Telephone Encounter - Maribell Amanda OCCA - 03/07/2023 8:26 AM EST ----- Message from Erica Herman MD sent at 03/07/2023 7:59 AM EST ----- Stable anemia. Continue iron supplement and bring in FOBT to rule out GI bleed. Other labs unremarkable. [facility] Progress note Author Sandie Monson [facility] February 28, 2023 4:40pm Note Date/Time February 28, 2023 11:03am [facility] Medical Records Department [address] [place] [address] Progress Note 02/28/23 1102 MR#: [id number] Acct: [id number] Name: SANJUANITA JERRY Rep #:[id number] : 1965 57 From: Sandie Monson MD PCP: Dr. Art Herman MD Status :ADM IN Location: [place] [address]1 Subjective Subjective Patient seen and examined. She feels well and has no complaints. He had an uneventful night. Review of systems otherwise negative. She has remained hemodynamically stable. Objective Data Objective Data Vital Signs: Vital Signs Temp Pulse Resp BP Pulse Ox O2 Del Method 98.0 F 82 18 146/72 H 99 Room Air 02/28/23 08:30 02/28/23 08:30 02/28/23 08:30 02/28/23 08:30 02/28/23 08:30 02/28/23 08:30 Oxygen Delivery Method Room Air Weight: 99 lb 4.81 oz Body Mass Index (BMI) 19.3 Intake & Output: Intake and Output for Last 24 Hours 02/26/23 02/27/23 02/28/23 23:59 23:59 23:59 Intake Total 1900.00 / 2100.00 2450 / 2450 765 / 765 Output Total 1600 / 1600 Balance 1900.00 / 1800.00 850 / 850 765 / 765 Lab / Micro Data 02/28/23 06:45 02/28/23 06:45 Labs: Laboratory Results - last 24 hr 02/27/23 11:25: POC Glucose 177 H 02/27/23 16:20: POC Glucose 139 H 02/27/23 20:39: POC Glucose 168 H 02/27/23 22:17: Vancomycin Trough 9.7 02/28/23 06:31: POC Glucose 117 H 02/28/23 06:45: WBC 9.7, RBC 2.85 L, Hgb 8.7 L, Hct 26.1 L, MCV 91.6, MCH 30.5, MCHC 33.3, RDW Std Deviation 41.2, RDW Coeff of Emily 12.2, Plt Count 218, MPV 10.8, Immature Gran % (Auto) 0.400, Neut % (Auto) 78.8 H, Lymph % (Auto) 10.6 L,Andrew % (Auto) 7.4, Eos % (Auto) 1.9, Baso % (Auto) 0.9, Absolute Neuts (auto) 7.6, Absolute Lymphs (auto) 1.03, Nucleated RBC % 0, Sodium 140, Potassium 3.7, Chloride 109 H, Carbon Dioxide 23.0, Anion Gap 8, BUN 14, Creatinine 0.57, EstimCreat Clear Calc 78.36, Est GFR (MDRD) Af Amer 141, Est GFR (MDRD) Non-Af 117, BUN/Creatinine Ratio 24.6 H, Glucose 114 H, Calcium 9.0 Micro: Microbiology 02/26/23 11:00 Blood Culture (Wb) - Right Forearm Blood Culture - Preliminary No growth in 48 hours. 02/26/23 11:00 Blood Culture (Wb) - Left Forearm Blood Culture - Preliminary No growth in 48 hours. 02/26/23 08:55 Wound - Other Gram Stain - Final 02/26/23 08:55 Wound - Other Wound Culture - Final Meth. resistant Staph. aureus Enterobacter cloacae complex Physical Exam Const alert, oriented x3 and no apparent distress Constitutional Narrative: frail, thin General Appearance: cooperative HEENT normocephalic, head/scalp atraumatic, hearing grossly normal bilaterally, moist oral mucous membranes and oropharynx normal Eyes PERRL, EOMs intact bilaterally and conjunctivae normal Neck no lymphadenopathy and supple Lymph Lymphatic: no lymphadenopathy noted Resp normal respiratory effort, normal air movement, no retractions, no use of accessory muscles and clear to auscultation bilaterally Cardio regular rate, regular rhythm, S1 normal heart sound, S2 normal heart sound and no murmurs GI normal to inspection, nondistended, normoactive bowel sounds, soft to palpation and non-distended Extremity Extremity Narrative: Right BKA stump wrapped in bandage. Skin Skin Narrative: as under extremity Neuro oriented x3 and CN's II-XII intact bilaterally Neuro Narrative: RLE BKA Psych affect normal Appearance: appropriate Assessment & Plan Assessment/Plan (1) Cellulitis and abscess of right lower extremity: (2) Type 2 diabetes mellitus with hyperglycemia, without long-term current use of insulin: (3) Status post below knee amputation of right lower extremity: PLAN: Plan #Cellulitis of the RLE BKA stump * wbc is down further to 9.7. * she failed outpatient therapy after completing a course of PO keflex * xray of the right tibia-fibula showed s/p total knee amputation with evidence of soft tissue swelling at the level of the stump within the tissues. * on IV vancomycin and zosyn. * blood and wound cultures pending * Orthopedic surgery on board; for conservative management now * wound cultures growing MRSA and enterobacter cloacae both sensitive to Bactrim; blood cultures negative * #Anemia * Hb today is 8.7, up from 7.9 yesterday * baseline Hb is ~ 12 * check iron profile and stool for occult blood. * #Type 2 diabetes mellitus: On dapagliflozin. Insulin sliding scale. Checks ACHS. Also on glipizide and metformin. Will hold these for now. #Hyperlipidemia: On statin DVT prophylaxis: Lovenox Code status: full code * Charges/Coding Visit Charges Inpatient E&M: 27048 Subs Hosp L2 02/28/23 1640 <Electronically signed by Sandie Monson MD> Sandie Monson MD Cosigner Signature (if applicable): CC: ~ Signed [facility] Work Phone: 1(125) 593-301712-14-2023 Progress note Author Toni Flanagan [facility] February 28, 2023 1:25pm Note Date/Time February 28, 2023 1:25pm [facility] Medical Records Department [address] [place] [address] Progress Note - Orthopedic 02/28/23 1323 MR#: [id number] Acct: [id number] Name: SANJUANITA JERRY Rep #:[id number] : 1965 57 From: Toni Flanagan MD PCP: Dr. Art Herman MD Status :ADM IN Location: MS3 YL353-4 Subjective Subjective Patient doing better. No fevers. Continues to have daily dressing changes and packing changes by wound care. No new symptoms. Objective Data Objective Data Vital Signs: Vital Signs Temp Pulse Resp BP Pulse Ox O2 Del Method 98.0 F 82 18 146/72 H 99 Room Air 02/28/23 08:30 02/28/23 08:30 02/28/23 08:30 02/28/23 08:30 02/28/23 08:30 02/28/23 08:30 Oxygen Delivery Method Room Air Weight: 99 lb 4.81 oz Body Mass Index (BMI) 19.3 Intake & Output: Intake and Output for Last 24 Hours 02/26/23 02/27/23 02/28/23 23:59 23:59 23:59 Intake Total 1900.00 / 2100.00 2450 / 2450 765 / 765 Output Total 1600 / 1600 Balance 1900.00 / 1800.00 850 / 850 765 / 765 Lab / Micro Data 02/28/23 06:45 02/28/23 06:45 Labs: Laboratory Results - last 24 hr 02/27/23 16:20: POC Glucose 139 H 02/27/23 20:39: POC Glucose 168 H 02/27/23 22:17: Vancomycin Trough 9.7 02/28/23 06:31: POC Glucose 117 H 02/28/23 06:45: WBC 9.7, RBC 2.85 L, Hgb 8.7 L, Hct 26.1 L, MCV 91.6, MCH 30.5, MCHC 33.3, RDW Std Deviation 41.2, RDW Coeff of Emily 12.2, Plt Count 218, MPV 10.8, Immature Gran % (Auto) 0.400, Neut % (Auto) 78.8 H, Lymph % (Auto) 10.6 L,Andrew % (Auto) 7.4, Eos % (Auto) 1.9, Baso % (Auto) 0.9, Absolute Neuts (auto) 7.6, Absolute Lymphs (auto) 1.03, Nucleated RBC % 0, Sodium 140, Potassium 3.7, Chloride 109 H, Carbon Dioxide 23.0, Anion Gap 8, BUN 14, Creatinine 0.57, EstimCreat Clear Calc 78.36, Est GFR (MDRD) Af Amer 141, Est GFR (MDRD) Non-Af 117, BUN/Creatinine Ratio 24.6 H, Glucose 114 H, Calcium 9.0, Iron 22 L, TIBC 279, Iron Saturation 7.9 L, Ferritin 226 Micro: Microbiology 02/26/23 11:00 Blood Culture (Wb) - Right Forearm Blood Culture - Preliminary No growth in 48 hours. 02/26/23 11:00 Blood Culture (Wb) - Left Forearm Blood Culture - Preliminary No growth in 48 hours. 02/26/23 08:55 Wound - Other Gram Stain - Final 02/26/23 08:55 Wound - Other Wound Culture - Final Meth. resistant Staph. aureus Enterobacter cloacae complex Physical Exam Narrative As of the right lower extremity shows knee full range of motion. Dressings not removed today. Seen previously yesterday with 0 purulent scanty discharge and packing removed. Area of redness reduced. Assessment & Plan Assessment/Plan (1) Cellulitis and abscess of right lower extremity: PLAN: Plan Improving cellulitis with wound. Wound culture showed MRSA with Enterococcus. Blood cultures negative. Continue antibiotics per ID as appropriate. Orthopedics will sign off now. May reconsult if new questions arise. At this point no surgical intervention needed. Continue wound care. Charges/Coding Visit Charges Inpatient E&M: 67522 Subs Hosp L2 02/28/23 1325 <Electronically signed by Toni Flanagan MD> Cosigner Signature (if applicable): CC: ~ Signed [facility] Work Phone: 1(494) 819-869712-14-2023 Consult note Author Eugenio Rai [facility] February 28, 2023 1:43am Note Date/Time February 28, 2023 1:43am [facility] Medical Records Department [address] [place] [address] Pharmacokinetic/Renal -Consult 02/28/23 0142 MR#: [id number] Acct: [id number] Name: SANJUANITA JERRY Rep #:[id number] : 1965 57 From: Eugenio Whitfield od PCP: Dr. Art Herman MD Status :ADM IN Y Location: MS3 RL925-0 Consult Antibiotic Management Pharmacy has been consulted to manage selected antiobiotic: Vancomycin Type of Intervention Type of Consult: Follow-up Labs Labs: Sodium 139 mmol/L (136-145) 02/27/23 06:41 Potassium 3.2 mmol/L (3.5-5.1) L 02/27/23 06:41 Chloride 111 mmol/L (98-107) H 02/27/23 06:41 Carbon Dioxide 26.0 mmol/L (21.0-32.0) 02/27/23 06:41 Anion Gap 2 (5-15) L 02/27/23 06:41 BUN 14 mg/dL (7-18) 02/27/23 06:41 Creatinine 0.58 mg/dL (0.55-1.02) 02/27/23 06:41 Est GFR (MDRD) Af Amer 138 mL/min (>60) 02/27/23 06:41 Est GFR (MDRD) Non-Af 114 mL/min (>60) 02/27/23 06:41 BUN/Creatinine Ratio 24.1 RATIO (10-20) H 02/27/23 06:41 Glucose 165 mg/dL (74-106) H 02/27/23 06:41 Vancomycin Trough 9.7 ug/mL (5.0-15.0) 02/27/23 22:17 Microbiology Microbiology: Microbiology 02/26/23 08:55 Wound - Other Gram Stain - Final 02/26/23 08:55 Wound - Other Wound Culture - Preliminary Staphylococcus aureus GNR lactose leasing representative Goal Trough Goal Trough: 15-20 mcg/mL Pharmacy Plan for Drug Dosing Pharmacy Plan for Drug Dosing: Pharmacy Service will continue to monitor and adjust dosing as required. TROUGH 9.7 @ 11 HOURS. INCREASE TO 750 Q12H AND FOLLOW UP TROUGH PRIOR TO 4TH DOSE FOR GOAL TROUGH 15-20 Follow-Up Labs Follow-Up Labs: Trough: Vancomycin Date/Time Labs Ordered Labs to be done on [date and time ordered]: 03/01 @ 1100 02/28/23 0143 <Electronically signed by Eugenio caldera> Date _ Eugenio D Fredi Cosigner Signature (if applicable): Date CC: ~ Signed [facility] Work Phone: 1(535) 194-239212-13-2023 History and physical note Author [facility] February 27, 2023 4:32pm Note Date/Time February 26, 2023 10:23[facility] Medical Records Department [address] [place] [address] H&P Exam - Hospitalist 02/26/23 1017 MR#: [id number] Acct: [id number] Name: SANJUANITA JERRY Rep #:[id number] : 1965 57 From: Sandie Monson MD PCP: Dr. Art Herman MD Status :ADM IN [facility] - General General Date of Admission: 02/26/23 Date of Service: 02/26/23 Chief Complaint: right BKA stump infection HPI Narrative SANJUANITA JERRY, is a 57 F with a PMH as outlined who presents via the ED on 02/26/2023 with a complaint of a pressure wound on the stump of her RLE BKA. Shehad been seen 2 weeks prior to admission for the same wound and was placed on oral antibiotics and counseled to keep pressure off of it. However, apparently her apartment is so small that she has been keeping cody stump on. She denied any fever, chills, chest pain, palpitations, dizziness, redness at hte left BKA stump site with associated drainage and redness. She therefore came into the ED for further evaluation. Vitals in the ED were blood pressure 149/97, pulse rate of 104, respirate rate of 16 and symptoms of 98.9 Fahrenheit. Oxygen saturation was 100% on room air. CBC showed hemoglobin of 9.6 with WBC of 12.5 and platelets of 219. Chemistry was essentially unremarkable. X-ray of the right lower extremity done showed soft tissue swelling of the post total knee amputation stump site with air within the tissues. She has been admitted to be managed for cellulitis of the right lower extremity stump. PFSH Medical History Acid reflux Below knee amputation Diabetes Dysphagia Smoker Home Medications albuterol sulfate 90 mcg/actuation aerosol inhaler 2 puff inhalation Q4H PRN Sob&/Or Wheezing 10/01/18 [History Last Taken Unknown] dapagliflozin propanediol 10 mg tablet (Farxiga) 10 mg PO DAILY blood sugars 09/20/22 [History Last Taken 02/25/23] pantoprazole 40 mg tablet,delayed release 40 mg PO DAILY acid reflux 09/20/22 [History Last Taken 02/25/23] glipizide 5 mg tablet, extended release 24 hr 5 mg PO DAILY blood sugars #30 tabs 09/24/22 [Rx Last Taken 02/25/23] OneTouch Verio test strips (blood sugar diagnostic) #100 ea 11/06/22 [Rx Last Taken Unknown] atorvastatin 40 mg tablet 40 mg PO QHS cholesterol 02/26/23 [History Last Taken 02/25/23] cholecalciferol (vitamin D3) 25 mcg (1,000 unit) tablet 25 mcg PO DAILY supplement 02/26/23 [History Last Taken 02/25/23] ferrous sulfate 325 mg (65 mg iron) tablet (FeroSul) 325 mg PO DAILY supplement 02/26/23 [History Last Taken 02/25/23] lisinopril 5 mg tablet 5 mg PO DAILY blood pressure 02/26/23 [History Last Taken 02/25/23] metformin 1,000 mg tablet 1,000 mg PO BID blood sugars 02/26/23 [History Last Taken 02/25/23] Allergy/AdvReac Type Severity Reaction Status Date / Time No Known Allergies Allergy Verified 02/26/23 08:42 Family History Grandmother Breast cancer Father Heart disease Hypertension Sister Thyroid disorder Aunt Thyroid disorder Other Arthritis CVA (cerebral vascular accident) Kidney disease Myocardial infarction Surgical History (Updated 02/26/23 @ 13:53 by Abeba Sandy) H/O thumb surgery history EGD with dilatation History of appendectomy S/P appendectomy Social History (Updated 02/26/23 @ 09:[address] Adrien Godoy MD) household members: family Smoking Status: Current every day smoker tobacco type: cigarettes alcohol intake: never substance use type: does not use what type of physical activity do you participate in: walking ROS Constitutional Constitutional: Reports malaise and weakness; Denies anorexia, change in weight,chills, fatigue or fever(s) Eyes Eyes: Denies change in vision ENT HEENT: Denies dysphagia or headache(s) Cardiovascular Cardiovascular: Denies chest pain, dyspnea on exertion, edema, lightheadedness, orthopnea, palpitations, paroxysmal nocturnal dyspnea or rapid heart rate Respiratory/Chest Respiratory/Chest: Denies cough, dyspnea, productive cough, shortness of breath at rest or shortness of breath with exertion Gastrointestinal Gastrointestinal: Denies abdominal pain, diarrhea, nausea or vomiting Genitourinary Genitourinary: Denies dysuria Musculoskeletal Musculoskeletal: Denies arthralgias or joint swelling Neurologic Neurologic: Denies confusion, disequilibrium, dizziness, focal weakness, headache(s) or numbness Psychiatric Psychiatric: Denies anxiety Endocrine Endocrinology: Denies change in body appearance Vital Signs Vital Signs Vital Signs: 02/26/23 08:43 02/26/23 09:23 Temperature 99.1 F 98.9 F Temperature Source Temporal Temporal Pulse Rate 110 H 104 H Respiratory Rate 15 16 Blood Pressure 107/75 147/97 H Blood Pressure Mean 85 113 Pulse Ox 100 100 Oxygen Delivery Method Room Air Room Air Weight Weight: 97 lb 10.636 oz Body Mass Index (BMI) 19.1 Physical Exam Const alert, oriented x3 and no apparent distress Constitutional Narrative: frail, thin General Appearance: cooperative HEENT normocephalic, head/scalp atraumatic, hearing grossly normal bilaterally, moist oral mucous membranes and oropharynx normal Mouth: oral and palatal mucosa normal and moist mucous membranes abnormal Eyes PERRL, EOMs intact bilaterally and conjunctivae normal Neck no lymphadenopathy and supple Resp normal respiratory effort, no retractions, no use of accessory muscles and clearto auscultation bilaterally Cardio regular rate, regular rhythm, S1 normal heart sound, S2 normal heart sound and no murmurs GI normal to inspection, nondistended, normoactive bowel sounds, soft to palpation and non-distended Extremity Extremity Narrative: has a small, ~ 0.5cm ulcer on the RLE BKA stump, with surrounding erythema and discharge. Tender and warm to touch. Skin Skin Narrative: as under extremity Neuro oriented x3 and CN's II-XII intact bilaterally Neuro Narrative: RLE AKA Psych affect normal Results Lab / Micro Data 02/26/23 09:20 02/26/23 09:20 Labs: Laboratory Results - last 24 hr 02/26/23 09:20: WBC 12.5 H, RBC 3.10 L, Hgb 9.6 L, Hct 28.5 L, MCV 91.9, MCH 31.0, MCHC 33.7, RDW Std Deviation 40.8, RDW Coeff of Emily 12.2, Plt Count 219, MPV 10.3, Immature Gran % (Auto) 0.400, Neut % (Auto) 80.2 H, Lymph % (Auto) 9.7L, Andrew % (Auto) 8.9, Eos % (Auto) 0.2, Baso % (Auto) 0.6, Absolute Neuts (auto)10.1 H, Absolute Lymphs (auto) 1.21, Nucleated RBC % 0, ESR 35 H, Sodium 135 L, Potassium 3.8, Chloride 104, Carbon Dioxide 26.0, Anion Gap 5, BUN 11, Creatinine 0.72, Est GFR (MDRD) Af Amer 108, Est GFR (MDRD) Non-Af 90, BUN/Creatinine Ratio 15.4, Glucose 201 H, Lactic Acid 1.4, Calcium 8.9, Total Bilirubin 0.60, AST 14 L, ALT 15, Alkaline Phosphatase 106, Total Protein 7.0, Albumin 3.0 L, Globulin 4.0, Albumin/Globulin Ratio 0.8 L Imagaing Radiology Impression Tibia/Fibula X-Ray 02/26/23 09:35 IMPRESSION: Status post total knee amputation with evidence of soft tissue swelling at the level of the stump with air within the soft tissues. BE ruled out. Electronically Signed: Fritz Alston MD at 9:56 EST , Assessment & Plan Assessment/Plan (1) Cellulitis and abscess of right lower extremity: (2) Type 2 diabetes mellitus with hyperglycemia, without long-term current use of insulin: (3) Status post below knee amputation of right lower extremity: PLAN: Plan #Cellulitis of the RLE BKA stump * patient says the ulcer on the RLE probes very deeply * she failed outpatient therapy after completing a course of PO keflex * admit to med surg * wbc is 12.5 * 3 of the right tibia-fibula showed s/p total knee amputation with evidence of soft tissue swelling at the level of the stump with a within the tissues. * Started on IV vancomycin and Zosyn. In light of the air within the tissues we will add on clindamycin due to concern about necrotizing infection. * Get blood cultures and wound cultures. Orthopedic surgery consulted to determine if there is any need for debridement. Will defer need for MRI to orthopedic surgery * PT OT consult * Discussed with Dr. Rubio orthopedic surgeon on-call. Will get CT with and without contrast of the right lower extremity to further evaluate. Dr. Flanagan suggested consulting plastic surgery. However Dr. Piedra is on leave and I spoke to Dr. Orona who said she doesnt usually deal with wounds. Dr Flanagan informed. * #Type 2 diabetes mellitus: On dapagliflozin. Insulin sliding scale. Checks ACHS. Also on glipizide and metformin. Will hold these for now. #Hyperlipidemia: On statin DVT prophylaxis: Lovenox Code status: full code * Patient counseled extensively about different types of CODE STATUS including full code, DNR CCA and DNR CCA. Patient elects to be full code. * Total usal-he-unpk time 17 minutes. Charges/Coding Visit Charges Inpatient E&M: 89808 Init Hosp L3 Procedures Hospitalists Procedures: 75933 Advncd Care Plan 30 Min 02/27/23 1632 <Electronically signed by Sandie Monson MD> Cosigner Signature (if applicable): CC: Dr. Art Herman MD; Dr. Sandie Monson MD~ Signed [facility] Work Phone: 1(653) 719-237812-13-2023 Progress note Author [facility] February 27, 2023 4:32pm Note Date/Time February 27, 2023 11:14am [facility] Medical Records Department [address] [place] [address] Progress Note 02/27/23 1109 MR#: [id number] Acct: [id number] Name: SANJUANITA JERRY Rep #:[id number] : 1965 57 From: Sandie Monson MD PCP: Dr. Art Herman MD Status :ADM IN Location: MS3 UY590-1 Subjective Subjective Patient seen and examined. She feels better today. She had no active events and had an uneventful night. Review of systems is otherwise negative. Objective Data Objective Data Vital Signs: Vital Signs Temp Pulse Resp BP Pulse Ox O2 Del Method 98.3 F 78 16 114/65 99 Room Air 02/27/23 10:00 02/27/23 10:00 02/27/23 10:00 02/27/23 10:00 02/27/23 10:00 02/27/23 10:00 Oxygen Delivery Method Room Air Weight: 99 lb 4.81 oz Body Mass Index (BMI) 19.3 Intake & Output: Intake and Output for Last 24 Hours 02/25/23 02/26/23 02/27/23 23:59 23:59 23:59 Intake Total 1900.00 / 2100.00 1600 / 1600 Output Total 1000 / 1000 Balance 1900.00 / 1800.00 600 / 600 Lab / Micro Data 02/27/23 06:41 02/27/23 06:41 Labs: Laboratory Results - last 24 hr 02/26/23 09:20: Hemoglobin A1c 8.1 H 02/26/23 14:32: POC Glucose 157 H 02/26/23 21:53: POC Glucose 208 H 02/27/23 06:28: POC Glucose 161 H 02/27/23 06:41: WBC 10.1, RBC 2.63 L, Hgb 7.9 L, Hct 24.3 L, MCV 92.4, MCH 30.0,MCHC 32.5, RDW Std Deviation 41.1, RDW Coeff of Emily 12.2, Plt Count 199, MPV 11.2, Immature Gran % (Auto) 0.600, Neut % (Auto) 80.4 H, Lymph % (Auto) 8.9 L, Andrew % (Auto) 8.6, Eos % (Auto) 0.8, Baso % (Auto) 0.7, Absolute Neuts (auto) 8.2 H, Absolute Lymphs (auto) 0.90, Nucleated RBC % 0, Sodium 139, Potassium 3.2L, Chloride 111 H, Carbon Dioxide 26.0, Anion Gap 2 L, BUN 14, Creatinine 0.58, Estim Creat Clear Calc 77.01, Est GFR (MDRD) Af Amer 138, Est GFR (MDRD) Non-Af 114, BUN/Creatinine Ratio 24.1 H, Glucose 165 H, Calcium 7.8 L, Total Bilirubin 0.40, Direct Bilirubin 0.18, AST 22, ALT 26, Alkaline Phosphatase 88, Total Protein 5.6 L, Albumin 2.2 L, Globulin 3.4 Radiography Diagnostic Testing: Radiology Impression Lower Extremity CT 02/26/23 16:06 IMPRESSION: Cellulitis with ulcer anteriorly with subjacent phlegmon but no CT evidence of osteomyelitis. Electronically Signed: Roger Rogers MD at 18:36 EST , Physical Exam Const alert, oriented x3 and no apparent distress Constitutional Narrative: frail, thin General Appearance: cooperative HEENT normocephalic, head/scalp atraumatic, hearing grossly normal bilaterally, moist oral mucous membranes and oropharynx normal Eyes PERRL, EOMs intact bilaterally and conjunctivae normal Neck no lymphadenopathy and supple Resp normal respiratory effort, normal air movement, no retractions, no use of accessory muscles and clear to auscultation bilaterally Cardio regular rate, regular rhythm, S1 normal heart sound, S2 normal heart sound and no murmurs GI normal to inspection, nondistended, normoactive bowel sounds, soft to palpation and non-distended Extremity Extremity Narrative: has a small, ~ 0.5cm ulcer on the RLE BKA stump, with surrounding erythema and discharge. RIght BKA stump wrapped in bandage. Skin Skin Narrative: as under extremity Neuro oriented x3 and CN's II-XII intact bilaterally Neuro Narrative: RLE BKA Psych affect normal Appearance: appropriate Assessment & Plan Assessment/Plan (1) Cellulitis and abscess of right lower extremity: (2) Type 2 diabetes mellitus with hyperglycemia, without long-term current use of insulin: (3) Status post below knee amputation of right lower extremity: PLAN: Plan #Cellulitis of the RLE BKA stump * wbc is down to 10.1 * she failed outpatient therapy after completing a course of PO keflex * xray of the right tibia-fibula showed s/p total knee amputation with evidence of soft tissue swelling at the level of the stump with a within the tissues. * on IV vancomycin and zosyn. * blood and wound cultures pending * Orthopedic surgery on board; for conservative management now * #Anemia * hb is 7.9; was 9.6 yesterday. * will check stool for occult blood. Check iron panel * #Type 2 diabetes mellitus: On dapagliflozin. Insulin sliding scale. Checks ACHS. Also on glipizide and metformin. Will hold these for now. #Hyperlipidemia: On statin DVT prophylaxis: Lovenox Code status: full code * Charges/Coding Visit Charges Inpatient E&M: 61854 Subs Hosp L2 02/27/23 1632 <Electronically signed by Sandie Monson MD> Sandie Monson MD Cosigner Signature (if applicable): CC: ~ Signed [facility] Work Phone: 1(271) 971-244712-13-2023 Progress note Author Toni Flanagan [facility] February 27, 2023 12:00pm Note Date/Time February 27, 2023 11:58am [facility] Medical Records Department [address] [place] [address] Progress Note - Orthopedic 02/27/23 1155 MR#: [id number] Acct: [id number] Name: SANJUANITA JERRY Rep #:[id number] : 1965 57 From: Toni Flanagan MD PCP: Dr. Art Herman MD Status :ADM IN Location: [place] [address]-1 Subjective Subjective Patient seen again today. She feels much better today. She worked with physical therapy. She denies any fevers. Objective Data Objective Data Vital Signs: Vital Signs Temp Pulse Resp BP Pulse Ox O2 Del Method 98.3 F 78 16 114/65 99 Room Air 02/27/23 10:00 02/27/23 10:00 02/27/23 10:00 02/27/23 10:00 02/27/23 10:00 02/27/23 10:00 Oxygen Delivery Method Room Air Weight: 99 lb 4.81 oz Body Mass Index (BMI) 19.3 Intake & Output: Intake and Output for Last 24 Hours 02/25/23 02/26/23 02/27/23 23:59 23:59 23:59 Intake Total 1900.00 / 2100.00 1600 / 1600 Output Total 1000 / 1000 Balance 1900.00 / 1800.00 600 / 600 Lab / Micro Data 02/27/23 06:41 02/27/23 06:41 Labs: Laboratory Results - last 24 hr 02/26/23 09:20: Hemoglobin A1c 8.1 H 02/26/23 14:32: POC Glucose 157 H 02/26/23 21:53: POC Glucose 208 H 02/27/23 06:28: POC Glucose 161 H 02/27/23 06:41: WBC 10.1, RBC 2.63 L, Hgb 7.9 L, Hct 24.3 L, MCV 92.4, MCH 30.0,MCHC 32.5, RDW Std Deviation 41.1, RDW Coeff of Emily 12.2, Plt Count 199, MPV 11.2, Immature Gran % (Auto) 0.600, Neut % (Auto) 80.4 H, Lymph % (Auto) 8.9 L, Andrew % (Auto) 8.6, Eos % (Auto) 0.8, Baso % (Auto) 0.7, Absolute Neuts (auto) 8.2 H, Absolute Lymphs (auto) 0.90, Nucleated RBC % 0, Sodium 139, Potassium 3.2L, Chloride 111 H, Carbon Dioxide 26.0, Anion Gap 2 L, BUN 14, Creatinine 0.58, Estim Creat Clear Calc 77.01, Est GFR (MDRD) Af Amer 138, Est GFR (MDRD) Non-Af 114, BUN/Creatinine Ratio 24.1 H, Glucose 165 H, Calcium 7.8 L, Total Bilirubin 0.40, Direct Bilirubin 0.18, AST 22, ALT 26, Alkaline Phosphatase 88, Total Protein 5.6 L, Albumin 2.2 L, Globulin 3.4 02/27/23 11:25: POC Glucose 177 H Micro: Microbiology 02/26/23 08:55 Wound - Other Gram Stain - Final 02/26/23 08:55 Wound - Other Wound Culture - Preliminary Staphylococcus aureus GNR lactose leasing representative Radiography Diagnostic Testing: Radiology Impression Lower Extremity CT 02/26/23 16:06 IMPRESSION: Cellulitis with ulcer anteriorly with subjacent phlegmon but no CT evidence of osteomyelitis. Electronically Signed: Roger Rogers MD at 18:36 EST , Physical Exam Narrative I was present in the room when wound care has been taking down the dressing. 1 x 1 cm opening. Packing removed shows scanty seropurulent discharge. Rednessreduced from yesterday but still present. Range of motion of the knee is intact. Assessment & Plan Assessment/Plan (1) Cellulitis and abscess of right lower extremity: PLAN: Plan I reviewed the CT done last night again. No evidence of osteomyelitis. Subcutaneous cellulitis without any abscess. Opening and space occupied with the packing. Recommend continued daily dressing and packing changes. IV antibiotics for now. Recommend ID consult for further recommendations on antibiotics on discharge. Blood culture negative so far. No fevers. Wound culture suggests Staph aureus?. Will continue medical management of the cellulitis with help of ID. Will continue to follow. 02/27/23 1200 <Electronically signed by Toni Flanagan MD> Cosigner Signature (if applicable): CC: ~ Signed [facility] Work Phone: 1(897) 309-570912-12-2023 Consult note Author [facility] February 26, 2023 5:26pm Note Date/Time February 26, 2023 5:25pm [facility] Medical Records Department [address] [place] [id number] Consultation - Orthopedics 02/26/23 1718 MR#: [id number] Acct: [id number] Name: SANJUANITA JERRY Rep #:[id number] : 1965 57 From: Toni Flanagan MD PCP: Dr. Art Herman MD Status :ADM IN Location: [place] [address]-1 HPI Consult Data Date of Consult: 02/26/23 HPI Narrative HPI Narrative: SANJUANITA JERRY, is a 57 F who presents with over right BKA stump. Patient was admitted this morning. I was consulted for the wound after patient admission. 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 This stumpwas left open initially in May followed by a delayed closure. She did not have any wound issues after the closure was completed. She noticed around 2 weeks ago she started having redness and sore. Yesterday it became a scab whichopened and caused serous drainage. She denies any purulence, foul smelling, blood staining of the discharge and says that it was clear serous only. She denies any fevers. She denies any pain or injuries in any other areas of the stump. She mentioned that initially her stump was swollen around May and she was fitted with a prosthesis which over bit of time became loose as her swelling reduced. She felt that the prominent tip of the bone was irritated significantly with the stump which caused the sore. She has been seen by wound care earlier today and has undergone bedside wound packing and dressing. She denies any fevers. [facility] Medical History Acid reflux Below knee amputation Diabetes Dysphagia Smoker Home Medications albuterol sulfate 90 mcg/actuation aerosol inhaler 2 puff inhalation Q4H PRN Sob&/Or Wheezing 10/01/18 [History Last Taken Unknown] dapagliflozin propanediol 10 mg tablet (Farxiga) 10 mg PO DAILY blood sugars 09/20/22 [History Last Taken 02/25/23] pantoprazole 40 mg tablet,delayed release 40 mg PO DAILY acid reflux 09/20/22 [History Last Taken 02/25/23] glipizide 5 mg tablet, extended release 24 hr 5 mg PO DAILY blood sugars #30 tabs 09/24/22 [Rx Last Taken 02/25/23] OneTouch Verio test strips (blood sugar diagnostic) #100 ea 11/06/22 [Rx Last Taken Unknown] atorvastatin 40 mg tablet 40 mg PO QHS cholesterol 02/26/23 [History Last Taken 02/25/23] cholecalciferol (vitamin D3) 25 mcg (1,000 unit) tablet 25 mcg PO DAILY supplement 02/26/23 [History Last Taken 02/25/23] ferrous sulfate 325 mg (65 mg iron) tablet (FeroSul) 325 mg PO DAILY supplement 02/26/23 [History Last Taken 02/25/23] lisinopril 5 mg tablet 5 mg PO DAILY blood pressure 02/26/23 [History Last Taken 02/25/23] metformin 1,000 mg tablet 1,000 mg PO BID blood sugars 02/26/23 [History Last Taken 02/25/23] Allergy/AdvReac Type Severity Reaction Status Date / Time No Known Allergies Allergy Verified 02/26/23 08:42 Family History Grandmother Breast cancer Father Heart disease Hypertension Sister Thyroid disorder Aunt Thyroid disorder Other Arthritis CVA (cerebral vascular accident) Kidney disease Myocardial infarction Surgical History (Updated 02/26/23 @ 13:53 by Abeba Sandy) H/O thumb surgery history EGD with dilatation History of appendectomy S/P appendectomy Social History (Updated 02/26/23 @ 09:[address] Adrien Godoy MD) household members: family Smoking Status: Current every day smoker tobacco type: cigarettes alcohol intake: never substance use type: does not use what type of physical activity do you participate in: walking Vital Signs Vital Signs Vital Signs: 02/26/23 08:43 02/26/23 09:23 02/26/23 10:00 Temperature 99.1 F 98.9 F 98.9 F Temperature Source Temporal Temporal Temporal Pulse Rate 110 H 104 H 94 Respiratory Rate 15 16 18 Respiratory Effort Respiratory Depth Respiratory Pattern Blood Pressure 107/75 147/97 H 140/71 H Blood Pressure Mean 85 113 94 Blood Pressure Source Blood Pressure Position Blood Pressure Location Pulse Ox 100 100 100 Oxygen Delivery Method Room Air Room Air Room Air 02/26/23 12:12 02/26/23 12:13 02/26/23 13:43 Temperature 97.2 F L 99.0 F Temperature Source Temporal Oral Pulse Rate 94 95 88 Respiratory Rate 17 21 H 18 Respiratory Effort Respiratory Depth Respiratory Pattern Blood Pressure 147/74 H 147/74 H 130/71 H Blood Pressure Mean 98 98 90 Blood Pressure Source Monitor Blood Pressure Position Semi-Fowlers Blood Pressure Location Right Arm Pulse Ox 99 100 98 Oxygen Delivery Method Room Air Room Air Room Air 02/26/23 14:45 Temperature Temperature Source Pulse Rate Respiratory Rate Respiratory Effort Normal Non-Labored Respiratory Depth Normal Respiratory Pattern Normal Blood Pressure Blood Pressure Mean Blood Pressure Source Blood Pressure Position Blood Pressure Location Pulse Ox Oxygen Delivery Method Room Air Weight Weight: 99 lb 4.81 oz Body Mass Index (BMI) 19.3 Physical Exam Narrative Examination of the right lower extremity shows coronal extent of incisional scarall the way up to the lower fourth of the thigh. There is erythema swelling over 2 x 2 inch area of the skin right at the anterior prominence of the distal tip of the tibia. There is no significant fluctuance. Wound packing was not removed. There is no swelling tenderness anywhere else in the stump. Lab / Micro Data 02/26/23 09:20 02/26/23 09:20 Labs: Laboratory Results - last 24 hr 02/26/23 09:20: WBC 12.5 H, RBC 3.10 L, Hgb 9.6 L, Hct 28.5 L, MCV 91.9, MCH 31.0, MCHC 33.7, RDW Std Deviation 40.8, RDW Coeff of Emily 12.2, Plt Count 219, MPV 10.3, Immature Gran % (Auto) 0.400, Neut % (Auto) 80.2 H, Lymph % (Auto) 9.7L, Andrew % (Auto) 8.9, Eos % (Auto) 0.2, Baso % (Auto) 0.6, Absolute Neuts (auto)10.1 H, Absolute Lymphs (auto) 1.21, Nucleated RBC % 0, ESR 35 H, Sodium 135 L, Potassium 3.8, Chloride 104, Carbon Dioxide 26.0, Anion Gap 5, BUN 11, Creatinine 0.72, Est GFR (MDRD) Af Amer 108, Est GFR (MDRD) Non-Af 90, BUN/Creatinine Ratio 15.4, Glucose 201 H, Hemoglobin A1c 8.1 H, Lactic Acid 1.4,Calcium 8.9, Total Bilirubin 0.60, AST 14 L, ALT 15, Alkaline Phosphatase 106, Total Protein 7.0, Albumin 3.0 L, Globulin 4.0, Albumin/Globulin Ratio 0.8 L 02/26/23 14:32: POC Glucose 157 H Imagaing Radiology Impression Tibia/Fibula X-Ray 02/26/23 09:35 IMPRESSION: Status post total knee amputation with evidence of soft tissue swelling at the level of the stump with air within the soft tissues. BE ruled out. Electronically Signed: Fritz Alston MD at 9:56 EST , Assessment & Plan Assessment/Plan (1) Cellulitis and abscess of right lower extremity: PLAN: Plan I reviewed the patient's CT scan which, although ordered with contrast, images available are only noncontrast. No imaging report available as yet. No obvious abscess or deep collection seen. There may have been a collection which is now drained and packed. Now, only appears as a cellulitis. No obvious signs of chronic osteomyelitis in the tibia stump. Will await CT report. For now, I would advise continued dressing changes packing changes. Appreciate wound care management. Recommend IV antibiotics, blood cultures, ESR CRP. Will continue to follow. If patient develops collection or requires revision surgery, I would request consultation with plastic surgery or vascular surgery for the procedure. Charges/Coding Visit Charges Inpatient E&M: 14186 Init Hosp L2 02/26/23 1726 <Electronically signed by Toni Flanagan MD> Cosigner Signature (if applicable): CC: Dr. Toni Flanagan MD; Dr. Art Herman MD; Dr. Sandie Monson MD~ Signed [facility] Work Phone: 1(320) 355-521612-12-2023 Consult note Author [facility] February 26, 2023 3:55pm Note Date/Time February 26, 2023 1:26pm [facility] Medical Records Department [address] [place] [id number] Pharmacokinetic/Renal -Consult 02/26/23 1326 MR#: [id number] Acct: [id number] Name: SANJUANITA JERRY Rep #:[id number] : 1965 57 From: Wilfredo Montano PCP: Dr. Art Herman MD Status :ADM [facility] Antibiotic Management Pharmacy has been consulted to manage selected antiobiotic: Vancomycin Type of Intervention Type of Consult: New start Suspected Infection Suspected Infection: Skin/Soft tissue Prior Doses of Antibiotics Prior Doses of Antibiotics Received/Current Regimen: Vancomycin 1000 mg IV given 02/26/23 @ 1100, patient also received loading dose of pipericillin/tazobactam 4.5 grams x 1 Labs Labs: Sodium 135 mmol/L (136-145) L 02/26/23 09:20 Potassium 3.8 mmol/L (3.5-5.1) 02/26/23 09:20 Chloride 104 mmol/L (98-107) 02/26/23 09:20 Carbon Dioxide 26.0 mmol/L (21.0-32.0) 02/26/23 09:20 Anion Gap 5 (5-15) 02/26/23 09:20 BUN 11 mg/dL (7-18) 02/26/23 09:20 Creatinine 0.72 mg/dL (0.55-1.02) 02/26/23 09:20 Est GFR (MDRD) Af Amer 108 mL/min (>60) 02/26/23 09:20 Est GFR (MDRD) Non-Af 90 mL/min (>60) 02/26/23 09:20 BUN/Creatinine Ratio 15.4 RATIO (10-20) 02/26/23 09:20 Glucose 201 mg/dL (74-106) H 02/26/23 09:20 Dosing Weight Weight used for dosin.3 kg Estimated Creatinine Clearance Estimated Creatinine Clearance: 63 Goal Trough Goal Trough: 15-20 mcg/mL Pharmacy Plan for Drug Dosing Pharmacy Plan for Drug Dosing: Vancomycin 1000 mg IV x1 followed by vancomycin 500 mg IV Q12H Pharmacy Service will continue to monitor and adjust dosing as required. Follow-Up Labs Follow-Up Labs: Trough: Vancomycin Date/Time Labs Ordered Labs to be done on [date and time ordered]: 02/26/23 @ 2230 02/26/23 1327 <Electronically signed by Wilfredo anderson> Date _ Wilfredo Montano 02/26/23 1555 <Electronically signed by Sandie cedeno MD> Cosigner Signature (if applicable): Date Sandie Monson MD CC: ~ Signed [facility] Work Phone: 1(778) 203-374112-12-2023 Discharge summary Author Adrien Godoy [facility] February 26, 2023 10:25am Note Date/Time February 26, 2023 9:08am [facility] Medical Records Department [address] [place] [address] Emergency Department Summary 02/26/23 MR#: [id number] Acct: [id number] Name: SANJUANITA JERRY Rep #:[id number] : 1965 57 From: Adrien Godoy MD PCP: Dr. Art Herman MD Status :REG ER Location: ED HPI History of Present Illness Chief Complaint: Wound Detail of Chief Complaint: Wound BKA stump site right lower extremity Informant: patient Occured/Mechanism Comment: Patient was seen February 16 for pressure sore stump site. She was instructed to stay off it is much as possible. She presents because there was redness with what sounds like an eschar left BKA stump site. This morning therewas a break in the skin with drainage of fluid and redness around the area. Onset/Context/Timing Onset: Yesterday Context: Sudden Onset Timing: Continuous Location: Ache Maximum Severity: Moderate Worsened by: Palpation of the area or wearing her prosthesis Relieved by: Nothing Associated Symptoms Associated Symptoms: Negative for Parasthesia or Weakness Narrative Narrative: Patient is a 57-year-old woman with history of type 2 diabetes, hypertension, hypercholesterolemia and lung problems who was seen approximately 10 days ago for pressure sore right BKA stump site. She was told to not wear the prosthesisor bear weight as much as possible. Patient states this is very difficult sinceher apartment is small and does not accommodate a wheelchair. She also has to go to work. She denies fever, chills or night sweats. Her blood sugar this morning was 180. This is slightly elevated for her. She denies polyuria or polydipsia. Tetanus Immunization: 5-10 years Prior similar symptoms: No Recent Illness/Hospitalization: Yes PFSH PFSH Medical History Acid reflux Below knee amputation Diabetes Dysphagia Home Medications albuterol sulfate 90 mcg/actuation aerosol inhaler 2 puff inhalation Q4H PRN PRNSob &/Or Wheezing 10/01/18 [History Last Taken Unknown] metformin 500 mg tablet,extended release 24 hr 500 mg PO BID 12/14/21 [History Last Taken Unknown] amlodipine 5 mg tablet 5 mg PO DAILY 09/20/22 [History Last Taken Unknown] cholecalciferol (vitamin D3) 25 mcg (1,000 unit) capsule 25 mcg PO DAILY 09/20/22 [History Last Taken Unknown] dapagliflozin propanediol 10 mg tablet (Farxiga) 10 mg PO DAILY 09/20/22 [History Last Taken Unknown] ferrous fumarate 325 mg (106 mg iron) tablet 325 mg PO DAILY 09/20/22 [History Last Taken Unknown] lisinopril 40 mg tablet 40 mg PO DAILY 09/20/22 [History Last Taken Unknown] pantoprazole 40 mg tablet,delayed release 40 mg PO DAILY 09/20/22 [History Last Taken Unknown] potassium chloride 20 mEq tablet,extended release(part/cryst) 20 meq PO BID 09/20/22 [History Last Taken Unknown] glipizide 5 mg tablet, extended release 24 hr 5 mg PO DAILY #30 tabs 09/24/22 [Rx Last Taken Unknown] OneTouch Verio test strips (blood sugar diagnostic) #100 ea 11/06/22 [Rx Last Taken Unknown] atorvastatin 10 mg tablet 5 mg PO DAILY 11/21/22 [History Last Taken Unknown] cephalexin 500 mg capsule 500 mg PO Q6 #40 CAPSULES 02/16/23 [Rx Last Taken Unknown] Allergy/AdvReac Type Severity Reaction Status Date / Time No Known Allergies Allergy Verified 02/26/23 08:42 Family History Grandmother Breast cancer Father Heart disease Hypertension Sister Thyroid disorder Aunt Thyroid disorder Other Arthritis CVA (cerebral vascular accident) Kidney disease Myocardial infarction Surgical History H/O thumb surgery history EGD with dilatation S/P appendectomy Social History (Updated 02/26/23 @ 09:[address] Adrien Godoy MD) household members: family Smoking Status: Current every day smoker tobacco type: cigarettes alcohol intake: never substance use type: does not use what type of physical activity do you participate in: walking ROS ROS ED Constitutional Constitutional ED: Denies chills, fever(s), subjective, sweats or weight loss Eyes Eyes: Denies blurry vision, change in vision or diplopia Cardiovascular Cardiovascular: Denies chest pain Respiratory/Chest Respiratory/Chest: Denies dyspnea Gastrointestinal Gastrointestinal: Denies nausea or vomiting Integumentary Reports abscess and rash Endocrine Endocrinology: Denies polydipsia or polyuria Hematologic/Lymphatic Hematologic/Lymphatic: Denies easy bleeding or easy bruising EXAM Physical Exam Const Vital Signs: 02/26/23 08:43 02/26/23 09:23 Temperature 99.1 F 98.9 F Temperature Source Temporal Temporal Pulse Rate 110 H 104 H Respiratory Rate 15 16 Blood Pressure 107/75 147/97 H Blood Pressure Mean 85 113 Pulse Ox 100 100 Oxygen Delivery Method Room Air Room Air Positive well nourished, well developed and cachectic General Appearance ED: well developed, cachectic and NAD Nutritional Appearance: cachectic HEENT Reports moist mucous membranes normocephalic and atraumatic Eyes PERRL Eyes Narrative: Extraocular muscles are intact. Sclera is anicteric. Conjunctive is pink. Neck full ROM Thyroid: Negative for tender Chest Wall inspection of chest normal and palpation of chest normal Resp normal respiratory effort, no retractions and clear to auscultation bilaterally Cardio regular rhythm, S1 normal heart sound, S2 normal heart sound and no murmurs Rate: tachycardic GI non-tender, non-distended and no masses Auscultation: normoactive bowel sounds Palpation: soft Extremity Negative for normal to inspection Extremity Narrative: There is an area of erythema approximately 4.5 cm in diameter distal anterior right stump site. In the center of this is an area of breakdown that is approximately 1 cm in diameter. There is purulent material that was expressed from the wound. The wound is approximately 3 cm depth. General Extremety ED: Yes weight-bearing difficulty General Extremity: weight-bearing difficulty Neuro oriented x3, CN's II-XII intact bilaterally and moves all extremities Psych mental status grossly normal MDM MDM MDM Narrative Medical decision making narrative: Patient is presently on cephalexin. She does have a wound and there is concern for infection. There is purulent drainage. Gram stain and culture was obtained. Blood work was obtained to assess for endorgan dysfunction. Since she is diabetic BMP was obtained to assess glucose, CO2 anion gap. Also to assess renal function. If patient does not meet criteria for admission will consult case management since patient will not be able to weight-bear and her residence does not accommodate a wheelchair. Also could assess patient's ability to use crutches and she will not need to wear her prosthesis. History & Record Review Additional record(s) reviewed:: Prior outpatient record (ER documentation from prior visit February 16 was reviewed. There was no blood work for thatvisit.) and Prior labs (Prior records are greater than 6 months ago. Renal function at that time was normal. Patient was not anemic. She has been anemic on more remote studies.) Lab Data Attestation: I reviewed the patient's lab results. Lab results narrative: White count is elevated 12.5. ESR is slightly elevated 35. There is no bandemia noted on the CBC. Patient had a 3 g drop in her hemoglobin from this past July. Competence of metabolic panel reveals a glucose of 201 with a normal CO2 and anion gap. Sodium is slightly low at 135. Labs: Laboratory Results - last 24 hr 02/26/23 09:20 WBC 12.5 H RBC 3.10 L Hgb 9.6 L Hct 28.5 L MCV 91.9 MCH 31.0 MCHC 33.7 RDW Std Deviation 40.8 RDW Coeff of Emily 12.2 Plt Count 219 MPV 10.3 Immature Gran % (Auto) 0.400 Neut % (Auto) 80.2 H Lymph % (Auto) 9.7 L Andrew % (Auto) 8.9 Eos % (Auto) 0.2 Baso % (Auto) 0.6 Absolute Neuts (auto) 10.1 H Absolute Lymphs (auto) 1.21 Nucleated RBC % 0 ESR 35 H Sodium 135 L Potassium 3.8 Chloride 104 Carbon Dioxide 26.0 Anion Gap 5 BUN 11 Creatinine 0.72 Est GFR (MDRD) Af Amer 108 Est GFR (MDRD) Non-Af 90 BUN/Creatinine Ratio 15.4 Glucose 201 H Lactic Acid 1.4 Calcium 8.9 Total Bilirubin 0.60 AST 14 L ALT 15 Alkaline Phosphatase 106 Total Protein 7.0 Albumin 3.0 L Globulin 4.0 Albumin/Globulin Ratio 0.8 L Radiography Chest X-Ray - ED: 2 View and Read by ED Physician (2 view x-ray of the proximal right tibia-fibula reveals subcu air. There is soft tissue swelling noted. There is slight abnormality distal portion of the tibia. There is no periostealelevation. Suspect this is chronic. This is independently reviewed interpretedby me at 0942.) Diagnostic Testing: Clinical Impression(s) from Imaging Studies Tibia/Fibula X-Ray 02/26/23 09:35 IMPRESSION: Status post total knee amputation with evidence of soft tissue swelling at the level of the stump with air within the soft tissues. BE ruled out. Electronically Signed: Fritz Alston MD at 9:56 EST , Contact radiology regarding his interpretation. The last sentence under the impression should read infectious process should be ruled out. Management Discussion w/another healthcare provider: Hospitalist (Spoke with hospitalist, Dr. Monson. Patient to be a full admit to [facility] because of failed outpatient therapy) Treatment and Re-Evaluation Narrative: With elevated white count and the fact the patient was on antibiotics she is failed outpatient therapy. Awaiting lactate to determine blood cultures need jayy obtained prior to administration of antibiotics. Since lactate is normal blood cultures were not obtained prior to administrationof antibiotics. Patient was started on Zosyn and vancomycin. Discharge Plan Dx/Rx/DC Orders Clinical Impression: Status post below knee amputation of right lower extremity, Sinus tachycardia seen on traffic monitor specialist, Type 2 diabetes mellitus with hyperglycemia, without long-term current use of insulin, Cellulitis and abscess of right lower extremity Disposition Disposition: Acute Care Hospital [facility] What to do if you have Problems For any increased pain, shortness of breath, bleeding, nausea or vomiting, chestpain, or any unexpected problems, contact your Primary Care Provider. Call [facility] ([phone]) or report to the closest Emergency Room. Call 911 if necessary. 02/26/23 1025 <Electronically signed by Adrien Godoy MD> Cosigner Signature (if applicable): CC: Dr. Art Herman MD ~ Signed [facility] Work Phone: 1(345) 420-137512-12-2023 Discharge summary Author Adrien Godoy [facility] February 26, 2023 10:25am Note Date/Time February 26, 2023 9:08am [facility] Medical Records Department [address] [facility] [place] [address] Emergency Department Summary 02/26/23 MR#: [id number] Acct: [id number] Name: SANJUANITA JERRY Rep #:[id number] : 1965 57 From: Adrien Godoy MD PCP: Dr. Art Herman MD Status :REG ER Location: ED HPI History of Present Illness Chief Complaint: Wound Detail of Chief Complaint: Wound BKA stump site right lower extremity Informant: patient Occured/Mechanism Comment: Patient was seen February 16 for pressure sore stump site. She was instructed to stay off it is much as possible. She presents because there was redness with what sounds like an eschar left BKA stump site. This morning therewas a break in the skin with drainage of fluid and redness around the area. Onset/Context/Timing Onset: Yesterday Context: Sudden Onset Timing: Continuous Location: Ache Maximum Severity: Moderate Worsened by: Palpation of the area or wearing her prosthesis Relieved by: Nothing Associated Symptoms Associated Symptoms: Negative for Parasthesia or Weakness Narrative Narrative: Patient is a 57-year-old woman with history of type 2 diabetes, hypertension, hypercholesterolemia and lung problems who was seen approximately 10 days ago for pressure sore right BKA stump site. She was told to not wear the prosthesisor bear weight as much as possible. Patient states this is very difficult sinceher apartment is small and does not accommodate a wheelchair. She also has to go to work. She denies fever, chills or night sweats. Her blood sugar this morning was 180. This is slightly elevated for her. She denies polyuria or polydipsia. Tetanus Immunization: 5-10 years Prior similar symptoms: No Recent Illness/Hospitalization: Yes PFSH [facility] Medical History Acid reflux Below knee amputation Diabetes Dysphagia Home Medications albuterol sulfate 90 mcg/actuation aerosol inhaler 2 puff inhalation Q4H PRN PRNSob &/Or Wheezing 10/01/18 [History Last Taken Unknown] metformin 500 mg tablet,extended release 24 hr 500 mg PO BID 12/14/21 [History Last Taken Unknown] amlodipine 5 mg tablet 5 mg PO DAILY 09/20/22 [History Last Taken Unknown] cholecalciferol (vitamin D3) 25 mcg (1,000 unit) capsule 25 mcg PO DAILY 09/20/22 [History Last Taken Unknown] dapagliflozin propanediol 10 mg tablet (Farxiga) 10 mg PO DAILY 09/20/22 [History Last Taken Unknown] ferrous fumarate 325 mg (106 mg iron) tablet 325 mg PO DAILY 09/20/22 [History Last Taken Unknown] lisinopril 40 mg tablet 40 mg PO DAILY 09/20/22 [History Last Taken Unknown] pantoprazole 40 mg tablet,delayed release 40 mg PO DAILY 09/20/22 [History Last Taken Unknown] potassium chloride 20 mEq tablet,extended release(part/cryst) 20 meq PO BID 09/20/22 [History Last Taken Unknown] glipizide 5 mg tablet, extended release 24 hr 5 mg PO DAILY #30 tabs 09/24/22 [Rx Last Taken Unknown] OneTouch Verio test strips (blood sugar diagnostic) #100 ea 11/06/22 [Rx Last Taken Unknown] atorvastatin 10 mg tablet 5 mg PO DAILY 11/21/22 [History Last Taken Unknown] cephalexin 500 mg capsule 500 mg PO Q6 #40 CAPSULES 02/16/23 [Rx Last Taken Unknown] Allergy/AdvReac Type Severity Reaction Status Date / Time No Known Allergies Allergy Verified 02/26/23 08:42 Family History Grandmother Breast cancer Father Heart disease Hypertension Sister Thyroid disorder Aunt Thyroid disorder Other Arthritis CVA (cerebral vascular accident) Kidney disease Myocardial infarction Surgical History H/O thumb surgery history EGD with dilatation S/P appendectomy Social History (Updated 02/26/23 @ 09:[address] Adrien Godoy MD) household members: family Smoking Status: Current every day smoker tobacco type: cigarettes alcohol intake: never substance use type: does not use what type of physical activity do you participate in: walking ROS ROS ED Constitutional Constitutional ED: Denies chills, fever(s), subjective, sweats or weight loss Eyes Eyes: Denies blurry vision, change in vision or diplopia Cardiovascular Cardiovascular: Denies chest pain Respiratory/Chest Respiratory/Chest: Denies dyspnea Gastrointestinal Gastrointestinal: Denies nausea or vomiting Integumentary Reports abscess and rash Endocrine Endocrinology: Denies polydipsia or polyuria Hematologic/Lymphatic Hematologic/Lymphatic: Denies easy bleeding or easy bruising EXAM Physical Exam Const Vital Signs: 02/26/23 08:43 02/26/23 09:23 Temperature 99.1 F 98.9 F Temperature Source Temporal Temporal Pulse Rate 110 H 104 H Respiratory Rate 15 16 Blood Pressure 107/75 147/97 H Blood Pressure Mean 85 113 Pulse Ox 100 100 Oxygen Delivery Method Room Air Room Air Positive well nourished, well developed and cachectic General Appearance ED: well developed, cachectic and NAD Nutritional Appearance: cachectic HEENT Reports moist mucous membranes normocephalic and atraumatic Eyes PERRL Eyes Narrative: Extraocular muscles are intact. Sclera is anicteric. Conjunctive is pink. Neck full ROM Thyroid: Negative for tender Chest Wall inspection of chest normal and palpation of chest normal Resp normal respiratory effort, no retractions and clear to auscultation bilaterally Cardio regular rhythm, S1 normal heart sound, S2 normal heart sound and no murmurs Rate: tachycardic GI non-tender, non-distended and no masses Auscultation: normoactive bowel sounds Palpation: soft Extremity Negative for normal to inspection Extremity Narrative: There is an area of erythema approximately 4.5 cm in diameter distal anterior right stump site. In the center of this is an area of breakdown that is approximately 1 cm in diameter. There is purulent material that was expressed from the wound. The wound is approximately 3 cm depth. General Extremety ED: Yes weight-bearing difficulty General Extremity: weight-bearing difficulty Neuro oriented x3, CN's II-XII intact bilaterally and moves all extremities Psych mental status grossly normal MDM MDM MDM Narrative Medical decision making narrative: Patient is presently on cephalexin. She does have a wound and there is concern for infection. There is purulent drainage. Gram stain and culture was obtained. Blood work was obtained to assess for endorgan dysfunction. Since she is diabetic BMP was obtained to assess glucose, CO2 anion gap. Also to assess renal function. If patient does not meet criteria for admission will consult case management since patient will not be able to weight-bear and her residence does not accommodate a wheelchair. Also could assess patient's ability to use crutches and she will not need to wear her prosthesis. History & Record Review Additional record(s) reviewed:: Prior outpatient record (ER documentation from prior visit February 16 was reviewed. There was no blood work for thatvisit.) and Prior labs (Prior records are greater than 6 months ago. Renal function at that time was normal. Patient was not anemic. She has been anemic on more remote studies.) Lab Data Attestation: I reviewed the patient's lab results. Lab results narrative: White count is elevated 12.5. ESR is slightly elevated 35. There is no bandemia noted on the CBC. Patient had a 3 g drop in her hemoglobin from this past July. Competence of metabolic panel reveals a glucose of 201 with a normal CO2 and anion gap. Sodium is slightly low at 135. Labs: Laboratory Results - last 24 hr 02/26/23 09:20 WBC 12.5 H RBC 3.10 L Hgb 9.6 L Hct 28.5 L MCV 91.9 MCH 31.0 MCHC 33.7 RDW Std Deviation 40.8 RDW Coeff of Emily 12.2 Plt Count 219 MPV 10.3 Immature Gran % (Auto) 0.400 Neut % (Auto) 80.2 H Lymph % (Auto) 9.7 L Andrew % (Auto) 8.9 Eos % (Auto) 0.2 Baso % (Auto) 0.6 Absolute Neuts (auto) 10.1 H Absolute Lymphs (auto) 1.21 Nucleated RBC % 0 ESR 35 H Sodium 135 L Potassium 3.8 Chloride 104 Carbon Dioxide 26.0 Anion Gap 5 BUN 11 Creatinine 0.72 Est GFR (MDRD) Af Amer 108 Est GFR (MDRD) Non-Af 90 BUN/Creatinine Ratio 15.4 Glucose 201 H Lactic Acid 1.4 Calcium 8.9 Total Bilirubin 0.60 AST 14 L ALT 15 Alkaline Phosphatase 106 Total Protein 7.0 Albumin 3.0 L Globulin 4.0 Albumin/Globulin Ratio 0.8 L Radiography Chest X-Ray - ED: 2 View and Read by ED Physician (2 view x-ray of the proximal right tibia-fibula reveals subcu air. There is soft tissue swelling noted. There is slight abnormality distal portion of the tibia. There is no periostealelevation. Suspect this is chronic. This is independently reviewed interpretedby me at 0942.) Diagnostic Testing: Clinical Impression(s) from Imaging Studies Tibia/Fibula X-Ray 02/26/23 09:35 IMPRESSION: Status post total knee amputation with evidence of soft tissue swelling at the level of the stump with air within the soft tissues. BE ruled out. Electronically Signed: Fritz Alston MD at 9:56 EST , Contact radiology regarding his interpretation. The last sentence under the impression should read infectious process should be ruled out. Management Discussion w/another healthcare provider: Hospitalist (Spoke with hospitalist, Dr. Monson. Patient to be a full admit to [facility] because of failed outpatient therapy) Treatment and Re-Evaluation Narrative: With elevated white count and the fact the patient was on antibiotics she is failed outpatient therapy. Awaiting lactate to determine blood cultures need jayy obtained prior to administration of antibiotics. Since lactate is normal blood cultures were not obtained prior to administrationof antibiotics. Patient was started on Zosyn and vancomycin. Discharge Plan Dx/Rx/DC Orders Clinical Impression: Status post below knee amputation of right lower extremity, Sinus tachycardia seen on traffic monitor specialist, Type 2 diabetes mellitus with hyperglycemia, without long-term current use of insulin, Cellulitis and abscess of right lower extremity Disposition Disposition: Acute Care Hospital [facility] What to do if you have Problems For any increased pain, shortness of breath, bleeding, nausea or vomiting, chestpain, or any unexpected problems, contact your Primary Care Provider. Call [facility] ([phone]) or report to the closest Emergency Room. Call 911 if necessary. 02/26/23 1025 <Electronically signed by Adrien Godoy MD> Cosigner Signature (if applicable): CC: Dr. Art Herman MD ~ Signed [facility] Work Phone: 1(764) 399-854612-02-2023 History of Present illness Narrative* Colette Lin APRN.AUTO WASH BUFFER - 02/16/2023 1:05 PM EST Patient came in with complaints of open wound on right leg amputation. Patient says she noticed it a week ago seems to be getting worse. Patient says it looks black today. There is some swelling noted around the blackened area. Patient does have history of gangrene which is why she lost the leg andshe is a diabetic. At this time patient is being referred to the emergency room for full evaluationpatient was okay with this care plan. [facility] Miscellaneous Notes* Telephone Encounter - Floresita Mix Ma - 02/04/2023 10:01 AM EST Letter mailed to pt home of results. Floresita Mix MA * Telephone Encounter - Floresita Mix Ma - 02/04/2023 10:00 AM EST ----- Message from Erica Herman MD sent at 02/03/2023 2:21 PM EST ----- High sugar in the 280's. Cholesterol level high, but improving. F/u with endocrinology for med adjustment for DM. Continue higher dose lipitor as discussed in office. Other labs normal. documented in this [facility] History of Present illness Narrative* Erica Herman MD - 02/01/2023 9:41 AM EST Chief Complaint Patient presents with: Follow Up: 3 month HPI Sanjuanita Jerry is a 57 year old female who presents here today for Above Complaints.. Uncontrolled type II diabetic managed by Dr. Wan Madrigal's office. Next OV in February. Taking metformin and glipizide as prescribed. Checking sugars fasting with high readings in the 230's. Denies worsening DM symptoms or hypoglycemia. Checking left foot at home on a regular basis. States dry and scaly without wounds. Not seeing neonatal intensive care nurse. Last optho appointment was in September without reported retinopathy. Taking Lipitor 20 mg daily for DM and hyperlipidemia. No side effects. Due for recheck on labs. Discussed high intesity statin with history of BKA and PAD. Would like to see if cholesterol has improved first. Referred to cardiology after lung cancer screening showed moderate to severe arterial disease. Has not seen them yet, but has appointment in June with Dr. Hayes. Patient has not brought in FOBT to screen for colon cancer. Has kit at home she can bring in. Last tetanus was more than 10 years ago. Has not gotten Prevnar 20. Refusing COVID and flu vaccines. Still smoking 1/2 pack per day and is not ready to quit today. Past medical history, appointments, medications, allergies reviewed. Previous Medical History PAST MEDICAL HISTORY Diagnosis Date Cataracts, bilateral s/p surgery in 2021 at [facility] Coronary artery calcification 11/[address] chest Diabetic neuropathy (HCC) Gas gangrene of lower extremity (HCC) Goiter, unspecified 09/29/2007 S/P BKA (below knee amputation) (HCC) 05/31/2022 right Tobacco use disorder Type II or unspecified type diabetes mellitus without mention of complication, uncontrolled Endo: Dr. Madrigal Previous Surgical History PAST SURGICAL HISTORY Procedure Laterality Date APPENDECTOMY HX 80s EGD W/O BRSH SPEC VARICIES INJ 2018 with esophageal dilation LEG AMPUTATION HX Right 06/03/2022 BKA PAST SURGICAL HISTORY OF Lt thumb straightened Family History FAMILY HISTORY Problem Relation Age of Onset Stroke Mother Ischemic Heart Disease Mother Diabetes Mother Hypertension Mother Stroke Father Ischemic Heart Disease Father Hypertension Father Diabetes Father Kidney failure Sister Ischemic Heart Disease Brother Massive AR at age 38 Breast Cancer Paternal Grandmother Patient Allergies ALLERGIES No Known Allergies Current Medications Current Outpatient Medications on File Prior to Visit Medication Sig albuterol HFA (PROVENTIL HFA, VENTOLIN HFA) 90 mcg/actuation inhaler Inhale 2 Puffs as instructed. atorvastatin (LIPITOR) 20 mg tablet Take 1 tablet by mouth daily at bedtime. For cholesterol. metFORMIN (GLUCOPHAGE) 1,000 mg tablet Take 1,000 mg by mouth twice daily with meals. glipiZIDE (GLUCOTROL) 5 mg tablet Take 5 mg by mouth once daily. ferrous sulfate 325 mg (65 mg iron) tablet Take 325 mg by mouth. Cholecalciferol, Vitamin D3, (VITAMIN D) 25 mcg (1,000 unit) cap Take 1,000 Units by mouth once daily. Taking 2,000 units daily lisinopril (ZESTRIL) 5 mg tablet Take 1 tablet by mouth once daily. blood sugar diagnostic(SwitchboardCK TEST STRIPS) Test blood sugars twice daily. (Patient not taking: Reported on 09/25/2022) blood-glucose meter(TRUETRACK BLOOD GLUCOSE SYSTEM KIT) Test glucose as directed (Patient not taking: Reported on 09/25/2022) blood-glucose control, low(TRUETRACK GLUCOSE SOLN) Test controls as needed (Patient not taking: Reported on 09/25/2022) LANCETS Test blood sugars once daily, 250.00, non insulin dep (Patient not taking: Reported on 09/25/2022) No current facility-administered medications on file prior to visit. Social History Social History Tobacco Use Smoking status: Every Day Packs/day: 0.50 Years: 43.00 Additional pack years: 0.00 Total pack years: 21.50 Types: Cigarettes Start date: 03/18/1979 Smokeless tobacco: Never Vaping Use Vaping Use: Never used Substance Use Topics Alcohol use: No Drug use: No Review of Symptoms REVIEW OF SYSTEMS GENERAL: No weight loss, malaise or fevers RESPIRATORY: Negative for cough, hemoptysis, wheezing, COPD, dyspnea or shortness of breath CARDIOVASCULAR: Negative for chest pain, leg swelling, hypertension, CHF or palpitations GI: No nausea, vomiting, or diarrhea SKIN: Negative for lesions, rash, and itching EXAM: BP 126/68 Pulse 90 Resp 16 Wt 48.6 kg (107 lb 3.2 oz) LMP 09/16/2007 SpO2 98% BMI 20.94kg/m General Appearance: Well appearing, alert, in no acute distress, well-hydrated, well nourished.. Skin: Skin color, texture, turgor normal, no suspicious rashes or lesions. Lungs: Lungs clear to auscultation. No wheezing, rhonchi, rales.. Heart: RRR without murmur, gallop, or rubs. No ectopy. Abdomen: Normal abdominal exam, Abdomen soft, non-tender. Bowel sounds normal. No masses, organomegaly. Extremities: No deformities, edema, skin discoloration, clubbing or cyanosis. Good capillary refill. . Feet: Shoes and socks removed, calluses noted left, and nails notable for Crumbly, Deformed, Hypertrophic, or Yellowish Health Maintenance List Hepatitis B Vaccine(1 of 3 - 3-dose series) Never done Covid-19 Vaccine(1) Never done Hepatitis C Screening Never done HIV Screening Never done DTaP,Tdap,Td Vaccine(1 - Tdap) Never done Pneumococcal Vaccine(2 - PCV) due on 09/28/2008 Urine Albumin:Creatinine Ratio due on 12/04/2009 Dilated Retinal Exam due on 04/02/2010 Colorectal Cancer Screening Never done Shingrix Vaccine(1 of 2) Never done HbA1C due on 08/31/2022 Influenza Vaccine(1) due on 11/16/2022 LDL Cholesterol due on 11/02/2023 Diabetic Foot Exam due on 11/02/2023 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 Chronic Disease Visit due on 11/02/2023 Mammogram Screening due on 12/07/2023 Lung Cancer Screening due on 12/07/2023 BP Controlled (<130/80) due on 12/11/2023 Pap Testing due on 12/11/2027 HPV Testing due on 12/11/2027 Data reviewed Component Latest Ref Rng & Units 11/01/2022 Protein, Total 6.3 - 8.0 g/dL 7.0 Albumin 3.9 - 4.9 g/dL 4.0 Calcium 8.5 - 10.2 mg/dL 9.9 Bilirubin, Total 0.2 - 1.3 mg/dL 0.3 Alkaline Phosphatase 34 - 123 U/L 103 AST 13 - 35 U/L 15 ALT 7 - 38 U/L 16 Glucose 74 - 99 mg/dL 251 (H) BUN 7 - 21 mg/dL 16 Creatinine 0.58 - 0.96 mg/dL 0.72 Sodium 136 - 144 mmol/L 135 (L) Potassium 3.7 - 5.1 mmol/L 4.3 Chloride 97 - 105 mmol/L 98 CO2 22 - 30 mmol/L 26 Anion Gap 9 - 18 mmol/L 11 eGFR >=60 mL/min/1.73m 98 Total Cholesterol, Nonfasting <200 mg/dL 244 (H) Triglycerides, Nonfasting <150 mg/dL 186 (H) HDL Cholesterol, Nonfasting >39 mg/dL 72 LDL Cholesterol, Nonfasting <100 mg/dL 135 (H) Non HDL Cholesterol, Nonfasting <130 mg/dL 172 (H) VLDL Cholesterol, Nonfasting <30 mg/dL 37 (H) Total Chol/HDL Ratio, Nonfasting <5.10 mg/dL 3.39 LDL/HDL Ratio, Nonfasting <2.54 mg/dL 1.88 ASSESSMENT/PLAN: 1. DM type 2 with diabetic peripheral neuropathy (HCC) - ICD9: 250.60, 357.2, ICD10: E11.42 (primary diagnosis) Uncontrolled. Discussed low carb diet and f/u with endocrinology for med adjustment. Will refer to podiatry for neuropathy with callus formation, thickened yellow nails, and history of right BKA. Would benefit from orthotics. - COMP METABOLIC PANEL 2. Callus of foot - ICD9: 700, ICD10: L84 See above. - CONSULT TO PODIATRY 3. Thickened nails - ICD9: 703.8, ICD10: L60.2 See above. - CONSULT TO PODIATRY 4. Primary hypertension - ICD9: 401.9, ICD10: I10 - Controlled - Continue current medications - Recommend home blood pressure monitoring, to bring results to next visit - Encouraged sodium restriction, DASH or Mediterranean diet - Recommend regular aerobic exercise 5. Hyperlipidemia, mixed - ICD9: 272.2, ICD10: E78.2 - Control undetermined, due for labs - Increase atorvastatin (Lipitor) to achieve high intensity dosage. - Counseled on healthy diet and regular exercise - LIPID PANEL, NONFASTING 6. Coronary artery calcification - ICD9: 414.00, 414.4, ICD10: I25.10, I25.[address] chest. Increase statin. Continue BP control. F/u with cardiology. 7. Status post below-knee amputation of right lower extremity (HCC) - ICD9: V49.75, ICD10: Z89.511 8. Tobacco use disorder - ICD9: 305.1, ICD10: F17.200 - Cessation encouraged. - Physiologic and physical aspects of tobacco addiction as well as strategies for quitting were discussed. - Counseling was given focusing on the harmful effects of this addiction especially given the patient's medical condition(s) which will be worsened because of the chemicals in tobacco. 9. Encounter for immunization - ICD9: V03.89, ICD10: Z23 - TDAP VACCINE, AGE 7+ YR (ADACEL, BOOSTRIX) - PNEUMOCOCCAL VACCINE (PREVNAR 20) Erica Herman MD documented in this encounterSelect [facility]23 Miscellaneous Notes* Telephone Encounter - Naomy Bergman APRN.AUTO WASH BUFFER - 12/10/2022 1:56 PM EDT Phone call to patient to discuss results LDCT Lung Rads Category 2S-Follow up with CT in 12 mos. Moderate/Severe Coronary artery calcifications-needs cardiology evaluation. Recommended to discuss with PCP. documented in this encounterSelect [facility]23 History of Present illness Narrative* Korina Kitchen APRN.CNM - 12/10/2022 1:50 PM EDT Sanjuanita is a 57 year old who presents for an annual gynecologic exam without complaints. She is new to office. Received most of her care at [facility]. Postmenopausal: Yes since 2010 HRT use: No. Last Pap: 10/24/2007 normal HPV: 10/17/2007 negative History of abnormal pap: No Last mammogram: 2022 normal History of abnormal mammogram: No Sexually active: No History of fibroids: No History of ovarian cyst: No History of endometriosis: No Pain with intercourse: No OB History T2 L2 SAB0 IAB0 Ectopic0 Multiple0 Live Births0 French Tutor History LMP: 09/16/2007, Postmenopausal Age at Menarche: Age at First : Age at Menopause: French Tutor History Comments: Sexual Activity: Not Currently; No partner data on record Contraception: No contraception data on record PAST MEDICAL HISTORY Diagnosis Date Diabetic neuropathy (HCC) Goiter, unspecified 09/29/2007 S/P BKA (below knee amputation) ([facility]) 05/31/2022 right Tobacco use disorder Type II or unspecified type diabetes mellitus without mention of complication, uncontrolled PAST SURGICAL HISTORY Procedure Laterality Date APPENDECTOMY HX 80s EGD W/O BRSH SPEC VARICIES INJ 2019 with esophageal dilation LEG AMPUTATION HX Right 06/03/2022 BKA PAST SURGICAL HISTORY OF Lt thumb straightened FAMILY HISTORY Problem Relation Age of Onset Stroke Mother Ischemic Heart Disease Mother Diabetes Mother Hypertension Mother Stroke Father Ischemic Heart Disease Father Hypertension Father Diabetes Father Kidney failure Sister Ischemic Heart Disease Brother Massive AR at age 38 Breast Cancer Paternal Grandmother SOCIAL HISTORY Social History Tobacco Use Smoking status: Every Day Packs/day: 0.50 Years: 43.00 Additional pack years: 0.00 Total pack years: 21.50 Types: Cigarettes Start date: 03/18/1979 Smokeless tobacco: Never Vaping Use Vaping Use: Never used Substance Use Topics Alcohol use: No Drug use: No REVIEW OF SYSTEMS Abdomen: No abdominal pain, nausea, vomiting, diarrhea, or constipation. No bloating, early satiety, indigestion, or increased flatulence. Bladder: No dysuria, gross hematuria, urinary frequency, urinary urgency, or incontinence Breast: No breast lumps, nipple d/c, overlying skin changes, redness or skin retraction Allergies and current medication updated:Yes EXAM: BP 98/52 Ht 5' 0" (1.52m) Wt 103 lb (46.7kg) LMP 09/16/2007 BMI 20.12 kg/(m^2). GENERAL: pleasant, female in no apparent distress HEENT: Normocephalic, atraumatic, and mucus membranes moist NECK: Supple, full range of motion, no adenopathy, and thyroid normal DERMATOLOGY: Normal, without lesions, non-icteric, and non-hirsute BREAST: deferred CHEST: Normal inspiratory effort ABDOMEN: soft, non-tender, and no masses PELVIC: external genitalia normal, normal Bartholin's glands, urethra, Hominy's glands, no vulvar lesions, no cervical lesions, good vaginal support, physiologic discharge present, normal appearing perineal body and perianal region BIMANUAL: uterus normal size, shape and consistency, no adnexal masses, non- tender, and no cervicalmotion tenderness RECTOVAGINAL: deferred. NEURO: alert and oriented x3,exam grossly non-focal EXTREMITIES: normal ASSESSMENT/PLAN: 1) Health maintenance: Pap done with HPV. Mammogram up to date Smoking cessation: Smoking cessation encouraged and resources provided. Benefits of smoking cessation reviewed. 2) Follow up one year or sooner as needed Korina Kitchen APRN.CNM documented in this encounterSelect [facility]23 History of Present illness Narrative* Michelle Cox, Mammo Tech - 12/06/2022 9:50 AM EDT Radiology Service Progress Note PATIENT NAME: Sanjuanita Jerry DATE OF SERVICE: December 06, 2022 TIME: 9:29 AM PATIENT IDENTITY VERIFICATION COMPLETED USING TWO (2) IDENTIFIERS: Name and Date of confirmedby patient verbally. FALL SCREENING: Has the patient had 2 falls in the last year or 1 fall with injury or currently using an Ambulatory Assistive Device (Walker, Cane, Wheelchair, Crutches, etc.)? No PATIENT GENDER DATA: Female. status: : No status: NO. PATIENT RELEVANT IMPLANT DATA REVIEWED: Not Applicable RADIOLOGY DEPARTMENT: Mammography PERIPHERAL IV DATA: Not applicable SIGNED BY: Blaire Long December 06, 2022 9:29 AM documented in this encounterSelect [facility]08-22-2023 Miscellaneous Notes* Telephone Encounter - Meagan Choe LPN - 11/06/2022 11:32 AM EDT Patient notified of Lipitor being sent to [facility]. Voices understanding in regards to call in with adverse side effects. Meagan Choe LPN * Telephone Encounter - Erica Herman MD - 11/06/2022 10:52 AM EDT Rx sent for lipitor 20 mg daily. Will recheck labs at future OV. Call with and concerning side effects. * Telephone Encounter - Felecia Navarro LPN - 11/06/2022 9:53 AM EDT Phoned patient and reviewed provider's message with her. [facility] agreeable [facility] [place] * Telephone Encounter - Erica Herman MD - 11/05/2022 4:58 PM EDT Reviewed. I would also recommend she take statin due to her DM. This also increases risk for AR andstroke and being over age 40 we would advise her to start at least moderate intensity statin. So basically, even if her cholesterol level improves with diet and exercise, she is still higher risk andwould benefit from statin. * Telephone Encounter - Felecia Navarro LPN - 11/05/2022 4:28 PM EDT Phoned patient and reviewed labs and recommendations with her. Patient declining medication at thistime stating she wants to get back on her diet as she hasn't been watching her intake and feels between this and her stress levels it's the cause. Advised patient stress not likely the cause of elevated cholesterol. She voiced understanding and said she'd like to try diet 1st and then revisit medica tion if next labs indicate still needs a statin. Advised her would update provider. * Telephone Encounter - Felecia Navarro LPN - 11/05/2022 4:24 PM EDT ----- Message from Erica Herman MD sent at 11/05/2022 4:02 PM EDT ----- Cholesterol level is high along with glucose in the 250's. F/u with endocrinology for management ofher diabetes. Continue to work on low carb diet and exercise as tolerated. Based on age and risk factors, patient is moderate risk for heart attack or stroke in the next 10 years. Recommend moderate intensity statin daily and recheck labs in 3 months. Most common side effect: muscle aches. If agreeable, will send rx to requested pharmacy. The 10-year ASCVD risk score (Brendon SALCIDO, et al., 2019) is: 10.7% Values used to calculate the score: Age: 57 years Sex: Female Is Non- : No Diabetic: Yes Tobacco smoker: Yes Systolic Blood Pressure: 118 mmHg Is BP treated: Yes HDL Cholesterol: 72 mg/dL Total Cholesterol: 244 mg/dL documented in this encounterSelect [facility] History of Present illness Narrative* Erica Herman MD - 11/01/2022 3:17 PM EDT Chief Complaint Patient presents with: Establish Care HPI Sanjuanita Jerry is a 57 year old female who presents here today for Above Complaints. Accompanied today by her daughter. [facility] P[facility]: [facility] with last OV about about 2-3 months ago. History of type 2 diabetes with last A1c was on 09/[address] Madrigal's office. Reports A1c was >10. They restarted her metformin and glipizide at last OV and recommended she f/u in 2 months. Has been checking fasting sugars on a daily basis with readings in the 250-350 range. They discussed withher that she would likely need to restart her insulin if sugars were high. Has not been following DM diet. Denies polyuria, polyphagia, polydipsia, vision changes, neuropathy. Has not been checking her foot at home. Patient is overdue for mammogram, colon cancer screening, lung cancer, and pap smear. Last pap was more than 5 years ago. Refusing colonoscopy but agreeable to FOBT. Smoking 1-1/2 packs per day for about 40 years. Smoking 1/2 pack per day now. Not wanting help withcessation. Patient unsure if she is up to date on immunizations. Past medical history, appointments, medications, allergies reviewed. Previous Medical History PAST MEDICAL HISTORY Diagnosis Date Diabetic neuropathy (HCC) Goiter, unspecified 09/29/2007 S/P BKA (below knee amputation) (HCC) 05/31/2022 right Tobacco use disorder Type II or unspecified type diabetes mellitus without mention of complication, uncontrolled Previous Surgical History PAST SURGICAL HISTORY Procedure Laterality Date APPENDECTOMY HX 80s LEG AMPUTATION HX Right 06/03/2022 PAST SURGICAL HISTORY OF Lt thumb straightened Family History FAMILY HISTORY Problem Relation Age of Onset Stroke Father Ischemic Heart Disease Father Hypertension Father Diabetes Father Diabetes Mother Hypertension Mother Ischemic Heart Disease Brother Massive AR at age 38 Breast Cancer Paternal Grandfather Patient Allergies ALLERGIES No Known Allergies Current Medications Current Outpatient Medications on File Prior to Visit Medication Sig metFORMIN (GLUCOPHAGE) 1,000 mg tablet Take 1,000 mg by mouth twice daily with meals. glipiZIDE (GLUCOTROL) 5 mg tablet Take 5 mg by mouth once daily. ferrous sulfate 325 mg (65 mg iron) tablet Take 325 mg by mouth. Cholecalciferol, Vitamin D3, (VITAMIN D) 25 mcg (1,000 unit) cap Take 1,000 Units by mouth once daily. Taking 2,000 units daily amLODIPine (NORVASC) 5 mg tablet Take by mouth once daily. (Patient not taking: Reported on 09/25/2022) diphenhydrAMINE (BENADRYL ALLERGY) 25 mg tablet Take 25 mg by mouth every 8 hours as needed for itching/rash. (Patient not taking: Reported on 09/25/2022) bisacodyl (DULCOLAX) 10 mg supp 10 mg by RECTAL route once daily as needed for constipation. (Patient not taking: Reported on 09/25/2022) cloNIDine HCl (CATAPRES) 0.1 mg tablet Take 0.1 mg by mouth twice daily. (Patient not taking: Reported on 09/25/2022) mineral oil (IBZAO-LM-FWP ENEMA, MIN OIL,) enema 133 mL by RECTAL route as needed for constipation.(Patient not taking: Reported on 09/25/2022) glucagon (GLUCAGON EMERGENCY KIT, HUMAN,) 1 mg injection Inject 1 mg subcutaneously as needed. (Patient not taking: Reported on 09/25/2022) dextrose (GLUCOSE GEL) 40 % gel Take 15 g by mouth as needed. (Patient not taking: Reported on 09/25/2022) heparin 5,000 unit/mL injection Inject 5,000 Units subcutaneously every 12 hours. (Patient not taking: Reported on 09/25/2022) lisinopril (ZESTRIL) 40 mg tablet Take 40 mg by mouth once daily. (Patient not taking: Reported on 09/25/2022) acetaminophen (TYLENOL) 325 mg tablet Take 650 mg by mouth every 6 hours as needed for pain. (Patient not taking: Reported on 09/25/2022) potassium chloride 20 mEq TbER Take 1 tablet by mouth once daily. (Patient not taking: Reported on 09/25/2022) pediatric multivitamin no.17 (CHILDREN'S CHEW MULTIVITAMIN) chewable tablet Take 1 tablet by mouth once daily. (Patient not taking: Reported on 09/25/2022) polyethylene glycol 3350 (MIRALAX) 17 gram/dose powder Take by mouth once daily. Dissolve dose in 4- 8 ounces of liquid and take as directed. (Patient not taking: Reported on 09/25/2022) magnesium hydroxide (MILK OF MAGNESIA) 400 mg/5 mL suspension Take 5 mL by mouth once daily as needed. (Patient not taking: Reported on 09/25/2022) ferrous sulfate 325 mg (65 mg iron) tablet Take 325 mg by mouth. (Patient not taking: Reported on 09/25/2022) insulin glargine 100 unit/mL (3 mL) Inject 15 Units subcutaneously daily at bedtime. (Patient not taking: Reported on 09/25/2022) insulin lispro (HUMALOG U-100 INSULIN) 100 unit/mL injection Inject 8 Units subcutaneously three times daily before meals. Inject 8 units subcutaneously 3 times daily before meals. (Patient not taking: Reported on 09/25/2022) insulin lispro 100 unit/mL injection ADMINISTER CORRECTIONAL INSULIN REGARDLESS OF MEAL OR NUTRITION INTAKE Scale 2 If Blood Glucose (mg/dL) is: Less than 110 Give 0 units 111-150 Give 0 units 151-200 Give 2 units 201-250 Give 4 units 251-300 Give 6 units 301-350 Give 8 units 351-400 Give 10 units Greater than 400 Give 10 units and Notify Provider Notify provider if 2 consecutive blood glucose values in the previous 24 hours are greater than 250mg/dL and there have been no changes to the insulin regimen in the previous 24 hours. (Patient not taking: Reported on 09/25/2022) magnesium oxide (MAG-OX) 400 mg (241.3 mg magnesium) tablet Take 1 tablet by mouth twice daily for [address] (PROTONIX) 40 mg tablet Take 1 tablet by mouth twice daily before meals (0600/1600). (Patient not taking: Reported on 09/25/2022) albuterol HFA (PROVENTIL HFA, VENTOLIN HFA) 90 mcg/actuation inhaler Inhale 2 Puffs as instructed every 4 hours as needed. (Patient not taking: Reported on 09/25/2022) blood sugar diagnostic(TRUETRACK TEST STRIPS) Test blood sugars twice daily. (Patient not taking: Reported on 09/25/2022) blood-glucose meter(TRUETRACK BLOOD GLUCOSE SYSTEM KIT) Test glucose as directed (Patient not taking: Reported on 09/25/2022) blood-glucose control, low(TRUETRACK GLUCOSE SOLN) Test controls as needed (Patient not taking: Reported on 09/25/2022) LANCETS Test blood sugars once daily, 250.00, non insulin dep (Patient not taking: Reported on 09/25/2022) No current facility-administered medications on file prior to visit. Social History Social History Tobacco Use Smoking status: Every Day Packs/day: 1 Types: Cigarettes Start date: 03/18/1979 Smokeless tobacco: Never Vaping Use Vaping Use: Never used Substance Use Topics Alcohol use: No Drug use: No Review of Symptoms REVIEW OF SYSTEMS GENERAL: No weight loss, malaise or fevers RESPIRATORY: Negative for cough, hemoptysis, wheezing, COPD, dyspnea or shortness of breath CARDIOVASCULAR: Negative for chest pain, leg swelling, hypertension, CHF or palpitations GI: No nausea, vomiting, or diarrhea SKIN: Negative for lesions, rash, and itching EXAM: BP 118/64 Pulse 91 Resp 16 Wt 44.5 kg (98 lb) LMP 09/16/2007 SpO2 96% BMI 19.14 kg/m General Appearance: Well appearing, alert, in no acute distress, well-hydrated, well nourished.. Skin: Skin color, texture, turgor normal, no suspicious rashes or lesions. Lungs: Lungs clear to auscultation. No wheezing, rhonchi, rales.. Heart: RRR without murmur, gallop, or rubs. No ectopy. Abdomen: Normal abdominal exam, Abdomen soft, non-tender. Bowel sounds normal. No masses, organomegaly. Extremities: Right BKA. No left LE edema. Feet: Shoes and socks removed, calluses noted bilaterally, and onychomycosis on left. Health Maintenance List HEPATITIS B(1 of 3 - 3-dose series) Never done COVID-19 VACCINE(1) Never done ANNUAL PCP TEAM CHRONIC DISEASE VISIT Never done HEPATITIS C SCREENING Never done HIV SCREENING Never done DTAP,TDAP,TD(1 - Tdap) Never done PNEUMOCOCCAL(2 - PCV) due on 09/28/2008 URINE ALBUMIN:CREATININE RATIO due on 12/04/2009 DILATED RETINAL EXAM due on 04/02/2010 LDL CHOLESTEROL due on 06/22/2010 COLORECTAL CANCER SCREENING Never done PAP TESTING due on 10/15/2012 HPV TESTING due on 10/15/2012 SHINGRIX VACCINE(1 of 2) Never done MAMMOGRAM due on 05/18/2017 DIABETIC FOOT EXAM due on 09/20/2021 HBA1C due on 08/31/2022 INFLUENZA(1) due on 11/16/2022 BP CONTROLLED (<130/80) due on 07/19/2023 ASSESSMENT/PLAN: 1. Encounter for medical examination to establish care - ICD9: V70.9, ICD10: Z00.00 (primary diagnosis) - Counseled on healthy diet and regular exercise - Calcium intake with supplements or by diet of 1000 mg/day for under 50, 1200- 1500 mg/day for 50+ - Follow up for annual exam in one year 2. DM type 2 with diabetic peripheral neuropathy (HCC) - ICD9: 250.60, 357.2, ICD10: E11.42 Uncontrolled on current regimen. Managed by endocrinology. Discussed low carb diet and exercise. Add CÉSAR inhibitor for renal protection. Check cholesterol. Discussed statin for diabetic over age 40. - LISINOPRIL 5 MG TABLET - COMP METABOLIC PANEL - LIPID PANEL, NONFASTING 3. Gas gangrene of extremity (HCC) - ICD9: 040.0, ICD10: A48.0 S/p amputation. Healing well. F/u with ortho and ID. Continue use of prosthesis for ambulation. 4. Status post below-knee amputation of right lower extremity (HCC) - ICD9: V49.75, ICD10: Z89.511 See above. 5. Screening for colon cancer - ICD9: V76.51, ICD10: Z12.11 - FECAL OCCULT BLOOD TEST 6. Screening for cervical cancer - ICD9: V76.2, ICD10: Z12.4 Referral for [employer] for cervical cancer screening. - CONSULT TO GYNECOLOGY 7. Screening mammogram for breast cancer - ICD9: V76.12, ICD10: Z12.31 - Set up for mammogram, yearly mammogram recommended - GALINA SCREENING 8. Tobacco use - ICD9: 305.1, ICD10: Z72.0 - Cessation encouraged. - Physiologic and physical aspects of tobacco addiction as well as strategies for quitting were discussed. - Counseling was given focusing on the harmful effects of this addiction especially given the patient's medical condition(s) which will be worsened because of the chemicals in tobacco. - CONSULT LUNG CANCER SCREENING CLINIC Erica Herman MD documented in this encounterSelect [facility]07-11-2023 NoteHNO ID: [id number] Author: Bharati Riggs MD Service: ? Author Type: Physician Type: Progress Notes Filed: 09/25/2022 2:15 PM Note Text: Chief complaint: Follow-up for right lower extremity amputation. History of present illness: Patient is known to myself. History of gas gangrene and right below-knee amputation. Overall doing well. Has been with the prosthetic company and has a prosthesis. Scheduled to start physical therapy. Overall doing well. For the patient's past medical history, past surgical history, medications, allergies, family history, social history, and review of systems please refer to medical history in chart. Physical exam: The patient is alert and oriented no acute distress. Answers questions appropriate. Has a normal affect. Examination right lower extremity shows satisfactory knee range of motion. All wounds well-healed. No signs of recurrent infection. Assessment: #1 gas gangrene right lower extremity. #2 right below-knee amputation. Plan: At this time she is doing extremely well. A prescription for outpatient physical therapy was provided. She will work on getting her strength and confidence back in her right lower extremity and with activities of daily living. When she is ready to return to work, she can contact our office for return to work note. I will see her back on an as-needed basis. If there is any questions or concerns in the future, she will contact the office. Questions answered.[facility] 07-18-2022 Instructions* Patient Instructions* Sergio Berumen III, MD - 07/18/2022 10:07 AM EDT No signs of infection at this point. No need for any further antibiotics or testing. Call if concerns for infection in future. documented in this encounterSelect [facility]05-03-2023 History of Present illness Narrative* Sergio Berumen III, MD - 07/18/2022 9:48 AM EDT Office follow up of patient who was hospitalized 05/31-06/19 with right leg infection with related MRSA bacteremia. Operative cultures showed anaerobes along with the MRSA. She underwent right BKA which than had to be revised with repeat I&D. Had TTE done which showed no evidence of endocarditis. She was on vancomycin through 06/28. Last labs on 06/29 showed normal renal function. Today she feels well. Did not have any issues with her vancomycin while on it. Since being off of the vancomycin has not had any fevers or chills. She is not having any new back or joint pains to suggest hematogenous infection that is active. Her right BKA site is healing well. She had cristhian taken out yesterday and expects to be fitted for a prosthetic late summer to early fall. On exam her vitals are BP 107/60 Pulse 86 Temp (Src) 97.7 (Temporal) Resp 16 Ht 5' 0" (1.52m) SpO2 99% LMP 09/16/2007 She looks well. Presents in a wheelchair. Heart RRR without murmur Right BKA site with no open wounds. Has some scattered areas of scab that are still healing. No redness. No signs of infection. Assessment (Z09) Encounter for follow-up (primary encounter diagnosis) (Z87.898) History of bacteremia (Z86.19) History of staph infection (Z89.511) S/P BKA (below knee amputation), right (HCC) No current evidence of active infection. Seems clinically recovered. Plan No further antibiotics or evaluation needed right now. Follow up prn I spent a total of 27 minutes on the date of the service which included preparing to see the patient, [id number] patient care, completing clinical documentation, and performing a medically appropriate examination. SIGNATURE: Sergio Berumen III, MD PATIENT NAME: Sanjuanita Jerry DATE: July 18, 2022 TIME: 12:08 PM PAGER #: [phone] CC CELL: [phone] documented in this encounterSelect [facility]05-02-2023 History of Present illness Narrative* Bharati Riggs MD - 07/17/2022 2:47 PM EDT Subjective: Patient returns a follow-up regarding her gas gangrene of her right lower extremity andright below-knee amputation. Overall doing well. Has an appointment with infectious disease tomorrow. Objective: Examination right lower extremity shows all wounds to be healing well. No signs of recurrent infection. Satisfactory knee range of motion. Assessment: #1 gas gangrene right lower extremity. #2 right below-knee amputation. Plan: Sutures will be removed today. Following suture removal, she states she is going to contact her prosthetic company. I will see her back in 2 months. If there is any questions or concerns prior to this next encounter, she will contact the office. Questions answered. documented in this encounterSelect [facility]04-21-2023 Miscellaneous Notes* Telephone Encounter - Diego Vega - 07/06/2022 3:18 PM EDT ----- Message from Georgia Molina sent at 07/04/2022 2:36 PM EDT ----- Regarding: Keely / post op Subject Line Format: Orthopedics / [Provider Name or "Open & Body Part"] / [Issue] Patient has been identified by name and Date of (Y/N): yes Patient: Sanjuanita Jerry Date of : 1965 Previous Provider Seen: Bhaarti Riggs MD Body Part(s) Identified: right leg Diagnosis/Reason For Visit: post op Reason for the call/escalation: provider called on behalf of the pt to reschedule post op. Please follow up with provider regarding this matter. If reason for call/escalation is discharge from ED/ER or Hospital, which facility was the patient seen at: na Was an appointment scheduled (Y/N): no Person calling if other than patient:Nurse fran Return call to if other than patient: Nurse fran Best contact number: [phone] ext. [phone] Thank you, Georgia Molina July 04, 2022 2:36 PM documented in this encounterSelect [facility]04-17-2023 Miscellaneous Notes* Telephone Encounter - Anel Hagan RN - 07/02/2022 3:17 PM EDT External copat labs entered. Anel Hagan RN documented in this [facility]04-13-2023 Miscellaneous Notes* Telephone Encounter - Anel Hagan RN - 06/28/2022 2:58 PM EDT External copat labs entered. Anel Hagna RN documented in this [facility]04-10-2023 Miscellaneous Notes* Telephone Encounter - Anel Hagan RN - 06/25/2022 3:17 PM EDT Verbal order relayed to Joseline, patient's nurse at the [facility]. Anel Hagan RN * Telephone Encounter - Sergio Berumen III, MD - 06/25/2022 2:00 PM EDT [place] stop date and remove PICC after last dose of vancomycin * Telephone Encounter - Anel Hagan RN - 06/25/2022 10:03 AM EDT Copat stop date 06/28/22. Can stop date be honored and PICC be removed after last dose of vancomycin? Anel Hagan RN documented in this [facility]04-10-2023 Miscellaneous Notes* Telephone Encounter - Sergio Berumen III, MD - 06/25/2022 1:59 PM EDT Noted vanco trough of 13.5. Continue present dose. documented in this encounterSelect [facility]04-10-2023 Miscellaneous Notes* Telephone Encounter - Anel Hagan RN - 06/25/2022 1:52 PM EDT External copat labs entered. Anel Hagan RN documented in this encounterSelect [facility]04-07-2023 Miscellaneous Notes* Telephone Encounter - Sergio Berumen III, MD - 06/22/2022 4:07 PM EDT Noted that vanco trough came back at 2.7. her vanco troughs have been consistently coming back at 18 so would not make any changes based off of this current lab. Will see what it comes back at on Saturday. * Telephone Encounter - Anel Hagan RN - 06/22/2022 3:34 PM EDT Phone call from patient's nurse at the [facility]. Vancomycin trough level from 06-22-22 was 2.7. According to the nurse, patient is still getting vancomycin 750mg every 12 hours. She was not aware of any missed doses. Copat order faxed, they had orders from Reena Rodriguez to draw labs twice weekly instead of once. They will draw the labs again on Saturday. Anel Hagan RN documented in this encounterSelect [facility]04-04-2023 History of Present illness Narrative* Bharati Riggs MD - 06/19/2022 1:53 PM EDT Subjective: Patient returns in follow-up. Her right below-knee amputation and gas gangrene of her extremity. Overall she is doing better. Currently at [facility]. Plan to go to rehab facility soon. Is going to be on IV antibiotics for an additional 9 days. Objective: Examination right lower extremity shows incisions to be healing. Some hyperemia distal portion of right lower extremity at the end of stump. No purulent drainage. No drainage in the officetoday. Assessment: #1 gas gangrene right lower extremity. #2 right below-knee amputation. Plan "this time she is doing well. She will continue with her antibiotics and rigid removable device. Nonweightbearing right lower extremity. Sutures will remain in place. I will see her back in 2 weeks for repeat wound check. There is any questions or concerns prior to the next encounter, she willcontact the office. Questions answered. documented in this encounterSelect [facility]03-16-[address] Enriquez [facility] May 31, 2022 4:02am Note Date/Time May 31, 2022 4:0 2am [facility] Medical Records Department [address] [place] [id number] Progress Note 05/31/22399 MR#: [id number] Acct: [id number] Name: SANJUANITA JERRY Rep #:[id number] : 1965 56 From: Lam Enriquez MD PCP: Felecia Christianson Status:ADM IN Location: [address] Progress Note Patient was seen by podiatry and a transfer to a tertiary center was recommended. Admission will be cancelled. 05/31/22401 <Electronically signed by Lam Enriquez MD> Lam Enriquez MD Cosigner Signature (if applicable): CC: ~ Signed [facility] Work Phone: [phone] 614-853303-03-2008 History of Past illness Narrative* Problem Noted Date Resolved Date Cough 05/19/2007 09/29/2007 documented as of this encounter (statuses as of 06/07/2022) [facility] History of Past illness Narrative* Problem Noted Date Resolved Date Cough 05/19/2007 09/29/2007 documented as of this encounter (statuses as of 06/19/2022) [address]03-2008 History of Past illness Narrative* Problem Noted Date Resolved Date Cough 05/19/2007 09/29/2007 documented as of this encounter (statuses as of 06/20/2022) [address]03[address]2008 History of Past illness Narrative* Problem Noted Date Resolved Date Cough 05/19/2007 09/29/2007 documented as of this encounter (statuses as of 06/22/2022) [address]03[address]2008 History of Past illness Narrative* Problem Noted Date Resolved Date Cough 05/19/2007 09/29/2007 documented as of this encounter (statuses as of 06/25/2022) [address]03[address]2008 History of Past illness Narrative* Problem Noted Date Resolved Date Cough 05/19/2007 09/29/2007 documented as of this encounter (statuses as of 06/29/2022) [address]03[address]2008 History of Past illness Narrative* Problem Noted Date Resolved Date Cough 05/19/2007 09/29/2007 documented as of this encounter (statuses as of 07/03/2022) [address]03[address]2008 History of Past illness Narrative* Problem Noted Date Resolved Date Cough 05/19/2007 09/29/2007 documented as of this encounter (statuses as of 07/06/2022) [address]2008 History of Past illness Narrative* Problem Noted Date Resolved Date Cough 05/19/2007 09/29/2007 documented as of this encounter (statuses as of 07/16/2022) [address]2008 History of Past illness Narrative* Problem Noted Date Resolved Date Cough 05/19/2007 09/29/2007 documented as of this encounter (statuses as of 07/18/2022) [address]03[address]2008 History of Past illness Narrative* Problem Noted Date Resolved Date Cough 05/19/2007 09/29/2007 documented as of this encounter (statuses as of 07/18/2022) [place] [id number] History of Past illness Narrative* Problem Noted Date Diagnosed Date Resolved Date Cough 05/19/2007 09/29/2007 documented as of this encounter (statuses as of 11/06/2022) [address]03[address]2008 History of Past illness Narrative* Problem Noted Date Diagnosed Date Resolved Date Cough 05/19/2007 09/29/2007 documented as of this encounter (statuses as of 11/07/2022) [address]03[address]2008 History of Past illness Narrative* Problem Noted Date Diagnosed Date Resolved Date Cough 05/19/2007 09/29/2007 documented as of this encounter (statuses as of 12/10/2022) [address]03[address]2008 History of Past illness Narrative* Problem Noted Date Diagnosed Date Resolved Date Cough 05/19/2007 09/29/2007 documented as of this encounter (statuses as of 12/11/2022) [address]03[address]2008 History of Past illness Narrative* Problem Noted Date Diagnosed Date Resolved Date Cough 05/19/2007 09/29/2007 documented as of this encounter (statuses as of 01/20/2023) [address]03[address]2008 History of Past illness Narrative* Problem Noted Date Diagnosed Date Resolved Date Cough 05/19/2007 09/29/2007 documented as of this encounter (statuses as of 02/02/2023) [address]03[address]2008 History of Past illness Narrative* Problem Noted Date Diagnosed Date Resolved Date Cough 05/19/2007 09/29/2007 documented as of this encounter (statuses as of 02/04/2023) [address]03[address]2008 History of Past illness Narrative* Problem Noted Date Diagnosed Date Resolved Date Cough 05/19/2007 09/29/2007 documented as of this encounter (statuses as of 02/16/2023) [address]03[address]2008 History of Past illness Narrative* Problem Noted Date Diagnosed Date Resolved Date Cough 05/19/2007 09/29/2007 documented as of this encounter (statuses as of 03/08/2023) [address]03[address]2008 History of Past illness Narrative* Problem Noted Date Diagnosed Date Resolved Date Cough 05/19/2007 09/29/2007 documented as of this encounter (statuses as of 05/20/2023) [address] History of Past illness Narrative* Problem Noted Date Diagnosed Date Resolved Date Cough 05/19/2007 09/29/2007 documented as of this encounter (statuses as of 06/18/2023) [address]03-2008 History of Past illness Narrative* Problem Noted Date Diagnosed Date Resolved Date Cough 05/19/2007 09/29/2007 documented as of this encounter (statuses as of 06/25/2023) [facility]03-03-2008 History of Past illness Narrative* Problem Noted Date Diagnosed Date Resolved Date Cough 05/19/2007 09/29/2007 documented as of this encounter (statuses as of 07/02/2023) [facility]03-[facility]-2008 History of Past illness Narrative* Problem Noted Date Diagnosed Date Resolved Date Cough 05/19/2007 09/29/2007 documented as of this encounter (statuses as of 07/03/2023) [facility]03-03-2008 History of Past illness Narrative* Problem Noted Date Diagnosed Date Resolved Date Cough 05/19/2007 09/29/2007 documented as of this encounter (statuses as of 07/03/2023) [facility]2008 History of Past illness Narrative* Problem Noted Date Diagnosed Date Resolved Date Cough 05/19/2007 09/29/2007 documented as of this encounter (statuses as of 07/04/2023) [facility] Ellison [facility] May 31, 2022 4:22am Note Date/Time May 31, 2022 4:1 1am [facility] Medical Records Department [address] [place] [address] Consultation 05/31/22 0410 MR#: [id number] Acct: [id number] Name: SANJUANITA JERRY Rep #:[id number] : 1965 56 From: Fabiano Ellison DPM PCP: Felecia Christianson Status:REG ER Location: ED Assessment & Plan Assessment/Plan (1) Gas gangrene: PLAN: Exam performed. Radiographs demonstrate diffuse subcutaneous emphysema at the dorsal foot and ankle extending into the knee proximally. Femoral radiographs ordered to rule out any further proximal spread. Patient has some tachycardia with elevated white count of 24.3. Lab results demonstrate results white count 24.3.? Lactic acid was 1.7.? CRP 287, ESR greater than 130.? Patient was started on triple antibiotic antibiotic therapy in the ER. I discussed in great detail the risk of the type of infection with the patient and her family. It was a severe acute gas infection that is threatening the patient's limb and life. I discussed the urgency of treatment for this issue. Due to extent of subcutaneous emphysema extending into the leg proximally at [facility]. I have recommended transfer for this patient as she requires treatment that is obscure side of my scope of practice. Patient will likely require BKA versus AKA pending evaluation upon transfer. Again this was all discussed with the patient's family. Patient to be transferred likely to [facility] due to extent of infection. (2) Diabetic foot infection: (3) Cellulitis of right foot: (4) Necrotizing fasciitis of lower leg: HPI Consult Data Date of Consult: 05/31/22 HPI Narrative HPI Narrative: SANJUANITA JERRY, is a 56 F who presents with a severe right lower extremity gas infection. Patient has a type II diabetic with a self-reported recent A1c of greaterthan 7. Patient noticed a callus to the outside of her right foot present for approximately 1 month. Over the past week she has noticed increased swelling redness to her right foot with darkening to the dorsal foot and medial ankle. Patient denies any constitutional symptoms today but presented due to concern for the darkening of the tissue the amount of swelling and redness to the site. Patient is comfortable and has some pain to the infection site. Patient has no other complaints at this time. [facility] Medical History Acid reflux Diabetes Dysphagia Home Medications albuterol sulfate 90 mcg/actuation aerosol inhaler 2 puff inhalation Q4H PRN PRNSob &/Or Wheezing 10/01/18 [History Last Taken Unknown] ergocalciferol (vitamin D2) 1,250 mcg (50,000 unit) capsule 50,000 unit PO Q7D 10/01/18 [History Last Taken Unknown] metformin 500 mg tablet,extended release 24 hr 500 mg PO BID 12/14/21 [History Last Taken Unknown] glipizide 5 mg tablet, extended release 24 hr 5 mg PO DAILY #30 tabs 03/02/22 [Rx Last Taken Unknown] cholecalciferol (vitamin D3) 1,250 mcg (50,000 unit) capsule 1,250 mcg PO QWEEK #12 caps 04/06/22 [Rx Last Taken Unknown] Allergy/AdvReac Type Severity Reaction Status Date / Time No Known Allergies Allergy Verified 05/31/22 01:14 Family History Grandmother Breast cancer Father Heart disease Hypertension Sister Thyroid disorder Aunt Thyroid disorder Other Arthritis CVA (cerebral vascular accident) Kidney disease Myocardial infarction Surgical History H/O thumb surgery history EGD with dilatation S/P appendectomy Social History Smoking Status: Current every day smoker tobacco type: cigarettes alcohol intake: never substance use type: does not use what type of physical activity do you participate in: walking ROS Constitutional Constitutional: Denies frequent falls, headache(s) or increased appetite Eyes Eyes: Denies change in vision, foreign body or periorbital itching ENT HEENT: Denies ear pain, nasal congestion or sore throat Cardiovascular Cardiovascular: Denies bluish discoloration of hand/feet, chest pain or dyspnea on exertion Respiratory/Chest Respiratory/Chest: Denies difficulty clearing secretions, dry cough or non-rest sleep EDS Gastrointestinal Gastrointestinal: Denies chewing difficulty, coffee ground emesis or hematochezia Genitourinary Genitourinary: Denies difficulty urinating, dysuria or genital pain Musculoskeletal Musculoskeletal: Reports joint stiffness, joint swelling and tingling Integumentary Integumentary: Reports wounds; Denies furuncle Physical Exam Narrative Patient AOx3. Vascular: Diffuse edema to right lower extremity with crepitus upon palpation. There are blanchable digits noted. Pulses palpable 2 out of 4 to bilateral lower extremities. No edema noted to left lower extremity. Neurologic: Light touch protective sensation absent to bilateral feet. Dermatologic: Full-thickness wound noted to the lateral fifth metatarsal base onthe right lower extremity. Diffuse periwound erythema edema and warmth extending into the proximal ankle. There is noted to be an area of necrosis to the dorsal midfoot and medial right ankle. Upon palpation into the proximal legthere is noted to be warmth and edema extending into the knee region with diffuse crepitus extending from the foot distal leg into the knee approximately. Musculoskeletal: No gross deformities noted. Const alert and oriented x3 Lab / Micro Data Result Diagrams: 05/31/22 01:36 05/31/22 01:36 Labs: Laboratory Results - last 24 hr 05/31/22 01:36: WBC 24.3 H, RBC 2.53 L, Hgb 7.2 L, Hct 20.7 L, MCV 81.8, MCH 28.5, MCHC 34.8, RDW Std Deviation 43.6, RDW Coeff of Emily 14.6, Plt Count 536 H,MPV 9.5, Immature Gran % (Auto) 1.100 H, Neut % (Auto) 89.1 H, Lymph % (Auto) 2.5 L, Andrew % (Auto) 7.0, Eos % (Auto) 0.0, Baso % (Auto) 0.3, Absolute Neuts (auto) 21.7 H, Absolute Lymphs (auto) 0.61 L, Nucleated RBC % 0, Differential Comment SCANNED, Diff Path Review July, Platelet Estimate MOD INC, Hypochromasia 1+, ESR > 130 H 05/31/22 01:36: PT 16.3 H, INR 1.4, APTT 35.9 05/31/22 01:36: Sodium 125 L, Potassium 3.2 L, Chloride 87 L, Carbon Dioxide 27.0, Anion Gap 11, BUN 30 H, Creatinine 0.96, Estim Creat Clear Calc 44.32, EstGFR (MDRD) Af Amer 77, Est GFR (MDRD) Non-Af 64, BUN/Creatinine Ratio 31.1 H, Glucose 392 H, Calcium 9.3, Total Bilirubin 0.80, AST 19, ALT 16, Alkaline Phosphatase 114, C- React Prot Ext Range 287.00 H, Total Protein 7.7, Albumin 2.2L, Globulin 5.5 H, Albumin/Globulin Ratio 0.4 L 05/31/22 01:36: Lactic Acid 1.7 05/31/22 02:40: Blood Type A POSITIVE, Antibody Screen NEGATIVE Micro: Microbiology 05/31/22 02:40 Nasal Secretion SARS-CoV-2 Antigen (Rapid) - Final 05/31/22 02:17 Stool Stool Occult Blood (MARINA) - Final Radiology Impression Foot X-Ray 05/31/22 01:28 IMPRESSION: 1. There is soft tissue emphysema and foot and visualized ankle which may represent air entry through open wound or necrotizing fasciitis. 2. Strongly suspect osteomyelitis of the proximal fifth metatarsal. Cannot exclude osteomyelitis of additional adjacent osseous structures. Consider MRI for further evaluation. Electronically Signed: Jj Ann MD at 2:19 EDT , 05/31/22 0422 <Electronically signed by Fabiano Ellison DPM> Cosigner Signature (if applicable): CC: Felecia Christianson~ Signed [facility] Work Phone: Discharge summary Author Sandie Monson [facility] March 01, 2023 11:49am Note Date/Time March 01, 2023 11:49am [facility] Medical Records Department [address] [place] [address] Instructions for Home/Discharge Instructions 03/01/23 1146 MR#: [id number] Acct: [id number] Name: SANJUANITA JERRY Rep #:[id number] : 1965 57 From: Sandie Monson MD PCP: Dr. Art Herman MD Status :ADM IN Discharge Instructions Diet Discharge Diet: 1800 Calorie Control Diet Activity Discharge Activity: Return to Normal Activity Weight Bearing Status: Weight bearing as tolerated Dressing / Incision Call your doctor if your incision/area has: Sudden Increased Bleeding, IncreasedPain/ Swelling, Increased Redness, Foul Smelling Discharge and Swelling at the incision site Call your doctor if you observe: Fever of 101 or Higher, Shortness of breath, Swelling in the ankles and Chest pain Follow Up Care Test Results: Test results from this visit will be discussed in further detail at your follow- up appointment, if applicable. Discharge Plan Admission Admit Date/Time: 02/26/23 10:23 Primary Reason for Your Visit: cellulitis Attending Provider: Sandie Monson Primary Care Provider: Art Herman Consulting Providers: Toni Flanagan Instructions Patient Instructions: Cellulitis Discharge Orders/Prescriptions Prescriptions: New sulfamethoxazole-trimethoprim [Bactrim DS] 800-160 mg tablet 1 tab PO BID Qty: 10 0RF Continued pantoprazole 40 mg tablet,delayed release (DR/EC) 40 mg PO DAILY Farxiga 10 mg tablet 10 mg PO DAILY albuterol sulfate 1 PUFF inhaler 2 puff inhalation Q4H PRN (Reason: Sob &/Or Wheezing) atorvastatin 40 mg tablet 40 mg PO QHS ferrous sulfate [FeroSul] 325 mg (65 mg iron) tablet 325 mg PO DAILY metformin 1,000 mg tablet 1,000 mg PO BID lisinopril 5 mg tablet 5 mg PO DAILY cholecalciferol (vitamin D3) 25 mcg (1,000 unit) tablet 25 mcg PO DAILY glipizide 5 mg tablet extended release 24hr 5 mg PO DAILY Qty: 30 5RF (DME) OneTouch Verio test strips Strip See Rx Instructions .Route Qty: 100 6RF Rx Instructions: twice a day Referrals / Follow Up: Art Herman MD [Primary Care Provider] - [facility] [Non-Staff[facility] - Disposition Disposition (needs filled in before D/C Order can be placed): Home, Self Care 03/01/23 1149<Electronically signed by Sandie Monson MD>Sandie Monson MD CC: Dr. Toni Flanagan MD; Dr. Art Herman MD ~ Signed [facility] Work Phone: Discharge summary Author [facility] March 01, 2023 11:49am Note Date/Time March 01, 2023 11:49am [facility] Medical Records Department [address] [place] [address] Instructions for Home/Discharge Instructions 03/01/23 1149 MR#: [id number] Acct: [id number] Name: SANJUANITA JERRY Rep #:[id number] : 1965 57 From: Sandie Monson MD PCP: Dr. Art Herman MD Status :ADM IN Discharge Instructions Diet Discharge Diet: 1800 Calorie Control Diet Activity Discharge Activity: Return to Normal Activity Weight Bearing Status: Weight bearing as tolerated Dressing / Incision Call your doctor if your incision/area has: Sudden Increased Bleeding, IncreasedPain/ Swelling, Increased Redness, Foul Smelling Discharge and Swelling at the incision site Call your doctor if you observe: Fever of 101 or Higher, Shortness of breath, Swelling in the ankles and Chest pain Follow Up Care Test Results: Test results from this visit will be discussed in further detail at your follow- up appointment, if applicable. Discharge Plan Admission Admit Date/Time: 02/26/23 10:23 Primary Reason for Your Visit: cellulitis Attending Provider: Sandie Monson Primary Care Provider: Art Herman Consulting Providers: Toni Flanagan Instructions Patient Instructions: Cellulitis Discharge Orders/Prescriptions Prescriptions: New sulfamethoxazole-trimethoprim [Bactrim DS] 800-160 mg tablet 1 tab PO BID Qty: 10 0RF Continued pantoprazole 40 mg tablet,delayed release (DR/EC) 40 mg PO DAILY Farxiga 10 mg tablet 10 mg PO DAILY albuterol sulfate 1 PUFF inhaler 2 puff inhalation Q4H PRN (Reason: Sob &/Or Wheezing) atorvastatin 40 mg tablet 40 mg PO QHS ferrous sulfate [FeroSul] 325 mg (65 mg iron) tablet 325 mg PO DAILY metformin 1,000 mg tablet 1,000 mg PO BID lisinopril 5 mg tablet 5 mg PO DAILY cholecalciferol (vitamin D3) 25 mcg (1,000 unit) tablet 25 mcg PO DAILY glipizide 5 mg tablet extended release 24hr 5 mg PO DAILY Qty: 30 5RF (DME) OneTouch Verio test strips Strip See Rx Instructions .Route Qty: 100 6RF Rx Instructions: twice a day Referrals / Follow Up: Art Herman MD [Primary Care Provider] - [facility] [Non[facility]Staff[facility] - Disposition Disposition (needs filled in before D/C Order can be placed): Home, Self Care 03/01/23 1149<Electronically signed by Sandie Monson MD>Sandie Monson MD CC: Dr. Toni Flanagan MD; Dr. Art Herman MD ~ Signed [facility] Work Phone: Discharge summary Author Nani Coleman [facility] Note Date/Time July 22, 2024 10:45a m [facility] Medical Records Department [address] [place] [address] Emergency Department Summary 07/22/24 MR#: [id number] Acct: [id number] Name: SANJUANITA JERRY Rep #:[id number] : 1965 59 From: Nani Weeks PCP: Dr. Art Herman MD Status :ADM IN Location: ICU CVICU20 1-1 HPI History of Present Illness Chief Complaint: Neuro S/Sx Informant: patient and EMS Narrative Narrative: Patient is a 59-year-old female with history of diabetes mellitus, hypertension,osteoporosis and history of necrotizing fasciitis status post right BKA presenting for generalized weakness and concern for stroke. Patient was concern for stroke because last night around 1:30 PM she had some intermittent paresthesias of her right fingers/hand. That is currently resolved. Her daughter notes that her voice/speech was different. At that time her daughter was at work and patient states that she would call her back in the morning and check on her. This morning was still noted to have change in her speech and EMSwas called. Patient notes that she has been having intermittent diarrhea and nausea for the past 3 weeks. Denies any associated pain with this. Has been feeling generallyweak. Notes over the past 5 days or so she stopped taking her insulin because of the diarrhea and illness. Denies any fever or chills. Denies any urinary symptoms. States she feels very thirsty. No falls reported. Is not on any blood thinners. Is from home. [facility] Medical History (Updated 07/22/24 @ 10:[address] Nani Coleman, ) Anemia Smoker Cellulitis and abscess of right lower extremity Type 2 diabetes mellitus with hyperglycemia, without long-term current use of insulin Sinus tachycardia seen on traffic monitor specialist Below knee amputation Dysphagia Acid reflux Diabetes Home Medications ?Medication ?Instructions ?Recorded ?Last Taken ?Type albuterol sulfate 90 mcg/actuation 2 puff inhalation Q 4H PRN Sob &/Or 10/01/18 Unknown History aerosol inhaler Wheezing dapagliflozin propanediol 10 mg 10 mg PO DAILY blood s ugars 09/20/22 02/25/23 History tablet (Farxiga) atorvastatin 40 mg tablet 40 mg PO QHS cholesterol 03/0902/25/23 History cholecalciferol (vitamin D3) 25 25 mcg PO DAILY supple ment 02/26/23 02/25/23 History mcg (1,000 unit) tablet ferrous sulfate 325 mg (65 mg 325 mg PO DAILY suppleme nt 02/26/23 02/25/23 History iron) tablet (FeroSul) lisinopril 5 mg tablet 5 mg PO DAILY blood pressure 02/26/23 02/25/23 History blood-glucose meter (True Metrix #1 ea 08/19/23 Unknow n Rx Glucose Meter) True Metrix Glucose Test Strip #50 ea 06/30/24 Unknown Rx (blood sugar diagnostic) glipizide 5 mg tablet 5 mg PO BID #60 tabs 5 Unknown Rx Allergy/AdvReac Type Severity Reaction Status Date / Time No Known Allergies Allergy Verified 05/27/24 10:09 Family History Grandmother Breast cancer Father Heart disease Hypertension Sister Thyroid disorder Aunt Thyroid disorder Other Arthritis CVA (cerebral vascular accident) Kidney disease Myocardial infarction Surgical History History of appendectomy Status post below knee amputation of right lower extremity history EGD with dilatation S/P appendectomy H/O thumb surgery Social History household members: family Smoking Status: Heavy Smoker (>10/day) alcohol intake: never substance use type: does not use what type of physical activity do you participate in: walking ROS ROS ED Constitutional Constitutional ED: Reports other Details: Generalized weakness ; Denies chills or fever(s) Eyes Eyes: Denies change in vision ENT ENT ED: Denies rhinorrhea or sore throat Cardiovascular Cardiovascular: Denies chest pain Respiratory/Chest Respiratory/Chest: Denies cough or dyspnea Gastrointestinal Gastrointestinal: Reports diarrhea and nausea; Denies abdominal pain or vomiting Genitourinary Genitourinary ED: Denies dysuria or urinary frequency Musculoskeletal Musculoskeletal: Denies arthralgias or myalgias Integumentary Denies rash Neurologic Neurologic: Reports paresthesias RUE (Right hand-affecting different fingers at different times per patient) and weakness Psychiatric Psychiatric: Denies anxiety or depression Hematologic/Lymphatic Hematologic/Lymphatic: Denies easy bleeding or easy bruising EXAM Physical Exam Const Vital Signs: 07/22/24 07:14 07/22/24 07:21 07/22/24 08:13 Temperature 97.1 F L Temperature Source Oral Pulse Rate 93 76 Respiratory Rate 16 24 H Respiratory Effort Normal Respiratory Pattern Normal Blood Pressure 125/109 H Blood Pressure Mean 114 Pulse Ox 98 Oxygen Delivery Method Room Air Nasal Cannula Oxygen Flow Rate (L/min) 2 07/22/24 09:00 Temperature Temperature Source Pulse Rate 84 Respiratory Rate 19 H Respiratory Effort Respiratory Pattern Blood Pressure 178/106 H Blood Pressure Mean 130 Pulse Ox 100 Oxygen Delivery Method Nasal Cannula Oxygen Flow Rate (L/min) 2 Positive cachectic and unkempt General Appearance ED: unkempt, cachectic and NAD Nutritional Appearance: cachectic HEENT Reports dry mucous membranes HEENT Narrative: Exceedingly dry mouth presents. Negative for trauma Mouth ED: Yes dry mucous membranes Mouth: dry mucous membranes Eyes PERRL and EOMs intact bilaterally Neck no JVD Neck Narrative: No nuchal rigidity Chest Wall inspection of chest normal Resp normal respiratory effort and clear to auscultation bilaterally Cardio regular rate and regular rhythm GI normal to inspection, nondistended, normoactive bowel sounds and non-tender Auscultation: normoactive bowel sounds Palpation: soft; Negative for tender or guarding Extremity Extremity Narrative: Right BKA present General Extremety ED: Negative for edema General Extremity: Negative for edema Neuro oriented x3 and CN's II-XII intact bilaterally Neuro Narrative: No focal neurologic deficits present. Alert and oriented. Suspect reported change in speech because of how dry her mouth is but no true dysarthria present. Normal strength and sensation in all extremities. NIH equals 0. Sensorium / Orientation: alert Psych mental status grossly normal Appearance: unkempt Skin no rashes or lesions noted Skin Narrative: Approximately 5 cm x 2 cm skin tear to the left hip area. There is a central 3 cm eschar. No associated warmth. Minimal surrounding erythema but no induration. MDM MDM MDM Narrative Medical decision making narrative: Patient is evaluated for generalized weakness and initially given because she thought her speech was slurred. I suspect it is secondary to dehydration based on her physical exam and do not think this is an actual stroke. She has been hyperglycemic and I am much more concerned for infection, HH NK, DKA, electrolyte abnormality or more metabolic process. She is alert and oriented however but generally weak. Workup does show leukocytosis of 22.5 and patient does appear to be significantly hemoconcentrated with platelet count of 526 and hemoglobin 11.1 which are both above her baseline. VBG obtained which does show metabolic acidosis with a pH of 7.26, bicarb of 8 and pCO2 of 8. Her chemistry shows significant hypokalemia with potassium of 2.7, hypochloremia with a chloride of 82, severe hyperglycemia with a glucose [id number], elevated anion gap of 21, VIJAY with a creatinine of 2.19 (baseline closer to 0.8), bicarb of 30 and actually high magnesium 2.3. Her calculated serum osmolality is 349. Her corrected sodium for hyperglycemia is hyponatremic with a sodium of 150. Patient is given oral and IV potassium as well as a liter of IV fluids and started on maintenance fluid at 125 an hour. She will need potassium replacement prior to starting insulin. When nurses were placed on Peguero they noted that she had a pretty severe yeast infection and patient started on Diflucan. Urinalysis is concerning for UTI andculture sent. Lactate is normal. I do not think patient has sepsis or severe sepsis as her primary cause of her presentation. Case is discussed with hospitalist, Dr. Capellan and will be admitted for further treatment. Patient and daughter are in agreement with this plan of care. Lab Data Attestation: I reviewed the patient's lab results. Labs: Laboratory Results - last 24 hr 07/22/24 07/22/24 07/22/24 07:16 08:09 09:01 WBC 22.5 H RBC 3.96 L Hgb 11.1 L Hct 35.3 L MCV 89.1 MCH 28.0 MCHC 31.4 L RDW Std Deviation 47.3 H RDW Coeff of Emily 14.6 Plt Count 526 H MPV 11.3 Immature Gran % (Auto) 0.600 Neut % (Auto) 85.9 H Lymph % (Auto) 9.5 L Andrew % (Auto) 3.8 Eos % (Auto) 0.0 Baso % (Auto) 0.2 Absolute Neuts (auto) 19.3 H Absolute Lymphs (auto) 2.13 Nucleated RBC % 0 Sodium 133 Potassium 2.3 L* Chloride 82 L Carbon Dioxide 30.7 Anion Gap 21 H BUN 51 H Creatinine 2.19 H Estim Creat Clear Calc 19.01 L Est GFR (MDRD) Non-Af 25 L BUN/Creatinine Ratio 23.4 H Glucose 1162 H* Lactic Acid 1.0 Calcium 9.6 Magnesium 2.3 H Total Bilirubin 0.29 AST 77 H ALT 12 Alkaline Phosphatase 129 H Troponin T High Sens 47 H Total Protein 8.2 Albumin 3.6 Globulin 4.6 H Albumin/Globulin Ratio 0.8 L b-Hydroxybutyric mmol/L 0.4 Urine Color Straw Urine Clarity Sl. Cloudy Urine pH 6.0 Ur Specific [place] 1.005 Urine Protein 100 H Urine Glucose (UA) 1000 H Urine Ketones Negative Urine Occult Blood 250 H Urine Nitrite Negative Urine Bilirubin Negative Urine Urobilinogen Normal Ur Leukocyte Esterase 500 H Urine RBC 0-5 SEEN Urine WBC 25-50 SEEN Ur Squamous Epith Cells 0 SEEN Urine Bacteria 2+ Urine Mucus 0 SEEN ABG Data ABG results: ABG 07/22/24 08:21 Specimen Type REYNA Sample Site Not entered VBG pH 7.26 L VBG pO2 176 H VBG HCO3 8 L VBG Total CO2 8 L VBG O2 Sat (Calc) 99 H VBG Base Excess -19 L POC Mix VBG pCO2 Pt Tmp 17.4 L* O2 Delivery Device Not entered Crit Call To/Read Back Yes Blood Gas Notified [facility] Blood Gas Notified Time 08:22:35 Radiography Chest X-Ray - ED: 1 View, Read by ED Physician, Read by Radiologist and No AcuteDisease Diagnostic Testing: Clinical Impression(s) from Imaging Studies Brain CT 07/22/24 07:20 IMPRESSION: No intracranial hemorrhage, mass effect or CT evidence of large vascular territory acute infarct. Reading Location: [facility] Chest X-Ray 07/22/24 07:40 IMPRESSION: No evidence of acute disease. Reading Location: [facility] Rhythm Strip Rhythm Strip: Sinus Rhythm Rate: 85 Ectopy: None EKG Initial EKG: Attestation: I personally reviewed and interpreted this EKG as follows: Interpretation: Sinus Rhythm Comments: Normal sinus rhythm at a rate of 85 bpm Normal axis Normal intervals Diffuse T wave inversions presents which are new compared to prior EKG on 05/31/2022 Management Discussion w/another healthcare provider: Hospitalist Critical Care Time Critical Care Time: Yes Critical care time (excluding procedures): 30-74 minutes (38), Discussing w/Patient &/or Family/Asset Availability Leader, Arranging Admission or Transfer and - (Severe electrolyte derangement requiring frequent monitoring, electrolyte and fluid replacement and ICU admission) Discharge Plan Triage Chief Complaint: Neuro S/Sx Other Complaint: Hyperglycemia ED Provider: Nani Coleman Dx/Rx/DC Orders Clinical Impression: Hypokalemia, Noncompliance, High anion gap metabolic acidosis, Hyperosmolar hyperglycemic state (HHS), Leukocytosis, Vaginal yeast infection, Abnormal urinalysis, VIJAY (acute kidney injury), Dehydration Primary Care Provider: Art Herman Disposition Disposition: Acute Care Hospital [facility] What to do if you have Problems For any increased pain, shortness of breath, bleeding, nausea or vomiting, chestpain, or any unexpected problems, contact your Primary Care Provider. Call [facility] ([phone]) or report to the closest Emergency Room. Call 911 if necessary. 07/22/24 1045 <Electronically signed by Nani Coleman DO> Cosigner Signature (if applicable): CC: Dr. Art Herman MD ~ Signed [facility] Work Phone: Evaluation noteNo assessment information available [facility] Work Phone: Evaluation note* Diagnosis Onset Date Resolution Status Diabetes chronic [facility] Work Phone: Evaluation note* Diagnosis Onset Date Resolution Status Diabetes chronic Vitamin D deficiency acute Diabetes chronic [facility] Work Phone: Evaluation note* Diagnosis Onset Date Resolution Status Vitamin D deficiency acute Diabetes chronic Anemia acute Cellulitis of right foot acu te Diabetic foot infection acut e Gas gangrene acute Necrotizing fasciitis of lower leg acute [facility] Work Phone: Evaluation note* Diagnosis Gas gangrene of extremity (HCC)- Primary Gas gangrene Below knee amputation (HCC) [facility] Diagnosis Gas gangrene of extremity (HCC)- Primary Gas gangrene Below knee amputation (HCC) [facility]* Diagnosis Encounter for follow-up- Primary History of bacteremia Personal history of other infectious and parasitic disease History of staph infection Personal history of other infectious and parasitic disease S/P BKA (below knee amputation), right (HCC) [facility] Diagnosis Onset Date Resolution Status Non compliance w medication regimen acute Diabetes chronic Hypokalemia chronic Vitamin D deficiency chronic [facility] Work Phone: Evaluation note* Diagnosis Encounter for medical examination to establish care- Primary DM type 2 with diabetic peripheral neuropathy (HCC) Type II or unspecified type diabetes mellitus with neurological manifestations, not stated as uncontrolled Gas gangrene of extremity (HCC) Gas gangrene Status post below-knee amputation of right lower extremity (HCC) Screening for colon cancer Special screening for malignant neoplasms, colon Screening for cervical cancer Screening for malignant neoplasm of the cervix Screening mammogram for breast cancer Tobacco use Tobacco use disorder [facility] Diagnosis Tobacco use- Primary Tobacco use disorder Coronary artery calcification seen on CAT scan Coronary atherosclerosis of unspecified type of vessel, [place] or graft [facility] Diagnosis Encounter for gynecological examination (general) (routine) without abnormal findings- Primary Screening for cervical cancer Screening for malignant neoplasm of the cervix Encounter for screening for human papillomavirus (HPV) Special screening examination for human papillomavirus (HPV) Pap smear for cervical cancer screening Screening for malignant neoplasm of the cervix Encounter for screening mammogram for breast cancer [facility] Diagnosis Screening mammogram for breast cancer documented in this encounter [facility] note* Diagnosis DM type 2 with diabetic peripheral neuropathy (HCC)- Primary Type II or unspecified type diabetes mellitus with neurological manifestations, not stated as uncontrolled Callus of foot Corns and callosities Thickened nails Other specified disease of nail Primary hypertension Unspecified essential hypertension Hyperlipidemia, mixed Mixed hyperlipidemia Coronary artery calcification Coronary atherosclerosis of unspecified type of vessel, [place] or graft Status post below-knee amputation of right lower extremity (HCC) Tobacco use disorder Encounter for immunization Need for other specified prophylactic vaccination against single bacterial disease [facility]* Diagnosis Wound infection- Primary Posttraumatic wound infection not elsewhere classified [facility] Diagnosis Onset Date Resolution Status Diabetes chronic Cellulitis and abscess of right lower extremity acute Sinus tachycardia seen on traffic monitor specialist acute Status post below knee amput ation of right lower extremity acute [id number] acute [facility] Work Phone: Evaluation note* Diagnosis Onset Date Resolution Status [id number] acute [id number] acute Underweight acute Diabetes chronic [facility] Work Phone: Evaluation note* Diagnosis Onset Date Resolution Status [id number] acute [id number] acute Underweight acute Diabetes chronic [id number] [facility] Work Phone: Evaluation note* Diagnosis Onset Date Resolution Status [id number] acute [id number] acute Underweight acute Diabetes chronic [id number] acute [id number] [facility] Work Phone: Evaluation note* Diagnosis Onset Date Resolution Status [id number] acute [id number] acute Underweight acute Diabetes chronic [id number] acute Diabetes chronic Vitamin D deficiency chronic [id number] [facility] Work Phone: Evaluation note* Diagnosis Screening for ischemic heart disease- Primary Coronary artery calcification seen on CAT scan Coronary atherosclerosis of unspecified type of vessel, [place] or graft Atherosclerosis of [place] coronary artery of [place] heart without angina pectoris [facility]* Diagnosis Gas gangrene of extremity (HCC)- Primary Gas gangrene Below-knee amputation of right lower extremity, subsequent encounter (HCC) [facility]* Diagnosis Onset Date Resolution Status [id number] acute [id number] acute Underweight acute Diabetes chronic [id number] acute Diabetes chronic Vitamin D deficiency chronic [id number] acute [id number] [facility] Work Phone: Evaluation note* Diagnosis Below-knee amputation of right lower extremity, sequela (HCC)- Primary documented in this encounter [facility] note* Diagnosis Below-knee amputation of right lower extremity, sequela (HCC)- Primary Acute osteomyelitis of right tibia (HCC) Tobacco use disorder Disability examination Issue of medical certificate for disability examination [facility]* Diagnosis Callus of foot- Primary Corns and callosities Diabetic ulcer of midfoot associated with diabetes mellitus due to underlying condition, limited to breakdown of skin, unspecified laterality (HCC) Onychomycosis Dermatophytosis of nail History of below-knee amputation of right lower extremity (HCC) Diabetic polyneuropathy associated with type 2 diabetes mellitus (HCC) [facility]* Diagnosis Gas gangrene of extremity (HCC)- Primary Gas gangrene Below-knee amputation of right lower extremity, subsequent encounter ([facility]) Chronic osteomyelitis of right tibia with draining sinus (HCC) Osteomyelitis of right tibia, unspecified type (HCC) Chronic osteomyelitis of right tibia with draining sinus (HCC) documented in this encounter [facility] note* Diagnosis Osteomyelitis of right tibia, unspecified type (HCC)- Primary Chronic osteomyelitis of right tibia with draining sinus (HCC) Osteomyelitis of right tibia, unspecified type (HCC) Chronic osteomyelitis of right tibia with draining sinus (HCC) documented in this encounter [facility] note* Diagnosis Onset Date Resolution Status [id number] acute Underweight acute Diabetes chronic [id number] acute Diabetes chronic Vitamin D deficiency chronic [id number] acute [id number] acute [facility] Work Phone: Evaluation note* Diagnosis Callus of foot- Primary Corns and callosities History of below-knee amputation of right lower extremity (HCC) Diabetic polyneuropathy associated with type 2 diabetes mellitus (HCC) documented in this encounter [facility] note* Diagnosis Primary hypertension- Primary Unspecified essential hypertension DM type 2 with diabetic peripheral neuropathy (HCC) Type II or unspecified type diabetes mellitus with neurological manifestations, not stated as uncontrolled Anemia, unspecified type Below-knee amputation of right lower extremity, sequela (HCC) Tobacco use disorder Hyperlipidemia, mixed Mixed hyperlipidemia Coronary artery calcification Coronary atherosclerosis of unspecified type of vessel, [place] or graft Weight loss Loss of weight Gas gangrene of extremity (HCC)- Primary Gas gangrene Below-knee amputation of right lower extremity, subsequent encounter ([facility]) documented in this encounter [facility] note* Diagnosis Gas gangrene of extremity (HCC)- Primary Gas gangrene Below-knee amputation of right lower extremity, subsequent encounter (HCC) [facility] Diagnosis Anemia, unspecified type- Primary Hyponatremia Hyposmolality and/or hyponatremia [facility] Screening for ischemic heart disease- Primary [facility]* Diagnosis Coronary artery calcification seen on CAT scan Coronary atherosclerosis of unspecified type of vessel, [place] or graft [facility]* Diagnosis Primary hypertension- Primary Unspecified essential hypertension DM type 2 with diabetic peripheral neuropathy (HCC) Type II or unspecified type diabetes mellitus with neurological manifestations, not stated as uncontrolled Below-knee amputation of right lower extremity, sequela (HCC) Normocytic anemia Anemia, unspecified Hyperlipidemia, mixed Mixed hyperlipidemia Coronary artery calcification Coronary atherosclerosis of unspecified type of vessel, [place] or graft Tobacco use disorder [facility]* Diagnosis Hypokalemia- Primary Hypopotassemia Leukocytosis, unspecified type [facility] Diagnosis Hypokalemia- Primary Hypopotassemia [facility] Diagnosis Callus of foot- Primary Corns and callosities Onychomycosis Dermatophytosis of nail History of below-knee amputation of right lower extremity (HCC) Diabetic ulcer of heel associated with diabetes mellitus due to underlying condition, limited to breakdown of skin, unspecified laterality (HCC) documented [facility]* Diagnosis Diabetic ulcer of heel associated with diabetes mellitus due to underlying condition, limited to breakdown of skin, unspecified laterality (HCC) [facility] Diagnosis Encounter for gynecological examination (general) (routine) without abnormal findings- Primary Encounter for screening mammogram for breast cancer [facility] Encounter for screening mammogram for breast cancer [facility] Diagnosis Callus of foot- Primary Corns and callosities Diabetic polyneuropathy associated with type 2 diabetes mellitus (HCC) [facility] Diagnosis Diabetic polyneuropathy associated with type 2 diabetes mellitus (HCC)- Primary Onychomycosis Dermatophytosis of nail Callus of foot Corns and callosities History of below-knee amputation of right lower extremity (HCC) Hammertoe of left foot Diminished pulses in lower extremity Other symptoms involving cardiovascular system [facility]* Diagnosis Hammertoe of left foot [facility]* Diagnosis Callus of foot- Primary Corns and callosities Hammertoe of left foot [facility]* Diagnosis Primary hypertension- Primary Unspecified essential hypertension Hyperlipidemia, mixed Mixed hyperlipidemia DM type 2 with diabetic peripheral neuropathy (HCC) Type II or unspecified type diabetes mellitus with neurological manifestations, not stated as uncontrolled Status post below-knee amputation of right lower extremity (HCC) Normocytic anemia Anemia, unspecified Coronary artery calcification Coronary atherosclerosis of unspecified type of vessel, [place] or graft Tobacco use disorder Encounter for screening for lung cancer documented [facility]* Diagnosis Normocytic anemia- Primary Anemia, unspecified Hypokalemia Hypopotassemia documented [facility]* Diagnosis Normocytic anemia- Primary Anemia, unspecified documented [facility]* Diagnosis Hypokalemia- Primary Hypopotassemia Hypomagnesemia Disorders of magnesium metabolism Folic acid deficiency Other B-complex deficiencies documented [facility]* Diagnosis Normocytic anemia- Primary Anemia, unspecified Positive fecal occult blood test Nonspecific abnormal finding in stool contents [facility] Diagnosis Hypokalemia- Primary Hypopotassemia Hypomagnesemia Disorders of magnesium metabolism Folic acid deficiency Other B-complex deficiencies Normocytic anemia Anemia, unspecified [facility]* Diagnosis Anemia, unspecified type- Primary documented [facility]* Diagnosis Diabetic polyneuropathy associated with type 2 diabetes mellitus (HCC)- Primary Onychomycosis Dermatophytosis of nail History of below-knee amputation of right lower extremity (HCC) Callus of foot Corns and callosities Hammertoe of left foot [facility]* Diagnosis Coronary artery calcification- Primary Coronary atherosclerosis of unspecified type of vessel, [place] or graft Primary hypertension Unspecified essential hypertension documented [facility]* Diagnosis Onychomycosis- Primary Dermatophytosis of nail History of below-knee amputation of right lower extremity (HCC) Callus of foot Corns and callosities Hammertoe of left foot Diabetic polyneuropathy associated with type 2 diabetes mellitus (HCC) Ulcer of toe of left foot, limited to breakdown of skin (HCC) [facility] Diagnosis Ulcer of toe of left foot, with fat layer exposed (HCC)- Primary [facility]* Diagnosis Ulcer of toe of left foot, with fat layer exposed (HCC) documented [facility]* Diagnosis Ulcer of toe of left foot, with fat layer exposed (HCC)- Primary Callus of foot Corns and callosities documented [facility]* Diagnosis Ulcer of toe of left foot, with fat layer exposed (HCC)- Primary documented [facility]* Diagnosis Ulcer of toe of left foot, with fat layer exposed (HCC) documented [facility]* Diagnosis Pre-op evaluation- Primary Preoperative examination, unspecified Skin ulcer of toe of left foot with fat layer exposed (HCC) DM type 2 with diabetic peripheral neuropathy (HCC) Type II or unspecified type diabetes mellitus with neurological manifestations, not stated as uncontrolled Tobacco use disorder Peripheral artery disease Peripheral vascular disease, unspecified [facility]* Diagnosis VIJAY (acute kidney injury)- Primary Acute kidney failure, unspecified Normocytic anemia Anemia, unspecified Other general symptoms and signs documented in this encounter [facility] note* Diagnosis Pre-op evaluation- Primary Preoperative examination, unspecified Skin ulcer of toe of left foot with fat layer exposed (HCC) DM type 2 with diabetic peripheral neuropathy (HCC) Type II or unspecified type diabetes mellitus with neurological manifestations, not stated as uncontrolled Peripheral artery disease Peripheral vascular disease, unspecified Normocytic anemia Anemia, unspecified Tobacco use disorder [facility]* Diagnosis VIJAY (acute kidney injury)- Primary Acute kidney failure, unspecified documented in this encounter [facility] for referral (narrative)* Diagnostic Procedure Only (Routine) - Authorized Specialty Diagnoses / Procedures Referred By Contzach t Referred To Contact [facility] Diagnoses Screening mammogram for breast cancer Procedures GALINA SCREENING SCREENING MAMMOGRAPHY BI 2-VIEW BREAST INC Erica Power MD [address] [place] [address] [facility] [address] [place] [address] Referral ID Status Reason Start Date Expiration Date Visits Requested Visits Authorized [id number] Authorized Auto-Generat ed Referral 11/01/2022 12/01/2023 1 1 * Consult, Test, Treat (Routine) - Authorized Specialty Diagnoses / Procedures Referred By Contac t Referred To Contact Gynecology Diagnoses Screening for cervical cancer Procedures CONSULT TO GYNECOLOGY OFFICE/OUTPATIENT [facility] 60-74 MINUTES Erica Herman MD [address] [place] [address] Referral ID Status Reason Start Date Expiration Date Visits Requested Visits Authorized [id number] Authorized PCP Requested Referral Auto-Generate d Referral 11/01/2022 11/01/2023 1 1 [facility] for referral (narrative)* Diagnostic Procedure Only (Routine) - Authorized Specialty Diagnoses / Procedures Referred By Contac t Referred To Contact [facility] Diagnoses Encounter for screening mammogram for breast cancer Procedures GALINA SCREENING SCREENING MAMMOGRAPHY BI 2-VIEW BREAST INC Korina Esparza APRN.CNM [address] [place] [address] [facility] [address] [place] [address] Referral ID Status Reason Start Date Expiration Date Visits Requested Visits Authorized [id number] Authorized Auto-Generat ed Referral 12/11/2023 01/09/2024 1 1 [facility] for referral (narrative)* Diagnostic Procedure Only (Routine) - Closed Specialty Diagnoses / Procedures Referred By Contac t Referred To Contact [facility] Diagnoses Screening mammogram for breast cancer Procedures GALINA SCREENING SCREENING MAMMOGRAPHY BI 2-VIEW BREAST INC Erica Power MD [address] [place] [address] [facility] [address] [place] [address] Referral ID Status Reason Start Date Expiration Date V isits Requested Visits Authorized [id number] Closed Auto-Generate d Referral 11/01/2022 12/01/2023 1 1 [facility] for referral (narrative)* Diagnostic Procedure Only (Routine) - Pending Review Specialty Diagnoses / Procedures Referred By Contac t Referred To Contact MOLECULAR & FUNCTIONAL IMAGING Diagnoses Coronary artery calcification seen on CAT scan Procedures NM CARDIAC PERF STRESS/PHARM MYOCARDIAL SPECT MULTIPLE STUDIES Yaakov Hayes MD [address], [address] [place] [address] [facility] [address] [id number] Referral ID Status Reason Start Date Expiration Date Visits Requested Visits Authorized [id number] Pending Review Auto-Generat ed Referral 06/24/2023 07/16/2024 1 1 * Outpatient Procedure (Routine) - Pending Review Specialty Diagnoses / Procedures Referred By Contac t Referred To Contact [facility] Diagnoses Screening for ischemic heart disease Procedures ECG COMPLETE ECG ROUTINE ECG W/LEAST 12 LDS W/I&R Yaakov Hayes MD [address], [address] [place] [address] [facility] [place] [address] [place] [address] Referral ID Status Reason Start Date Expiration Date Visits Requested Visits Authorized [id number] Pending Review Auto-Generat ed Referral 06/17/2023 06/16/2024 1 1 [facility] for referral (narrative)* Diagnostic Procedure Only (Routine) - Pending Review Specialty Diagnoses / Procedures Referred By Contac t Referred To Contact XR IMAGING Diagnoses Diabetic ulcer of midfoot associated with diabetes mellitus due to underlying condition, limited to breakdown of skin, unspecified laterality (HCC) Procedures XR FOOT GENERAL 3V AP/LAT/OBL LEFT RADEX FOOT COMPLETE MINIMUM 3 VIEWS Kedar Long [address] [place] [address] [place] [address] Referral ID Status Reason Start Date Expiration Date Visits Requested Visits Authorized [id number] Pending Review Auto-Generat ed Referral 07/04/2023 08/02/2024 1 1 [facility] for referral (narrative)* Diagnostic Procedure Only (Routine) - Pending Peer to Peer Review Specialty Diagnoses / Procedures Referred By Leonardo t Referred To Contact MOLECULAR & FUNCTIONAL IMAGING Diagnoses Coronary artery calcification seen on CAT scan Procedures NM CARDIAC PERF STRESS/PHARM MYOCARDIAL SPECT MULTIPLE STUDIES Yaakov Hayes MD [address] [facility], [address] [place] [address] Molecular & Functional Imaging [address] [place] [address] Referral ID Status Reason Start Date Expiration Date Visits Requested Visits Authorized [id number] Pending Peer to Peer Review Auto-Genera chhaya Referral Patient Cleared - Admin/Chair man/Directo r advise to proceed or did not respond 08/05/2023 09/04/2023 3 3 T [facility] for referral (narrative)* Diagnostic Procedure Only (Routine) - Closed Specialty Diagnoses / Procedures Referred By Leonardo t Referred To Contact XR IMAGING Diagnoses Diabetic ulcer of heel associated with diabetes mellitus due to underlying condition, limited to breakdown of skin, unspecified laterality (HCC) Procedures XR FOOT GENERAL 3V AP/LAT/OBL LEFT RADEX FOOT COMPLETE MINIMUM 3 VIEWS Kedar Long [address] [place] [address] [place] [address] Referral ID Status Reason Start Date Expiration Date V isits Requested Visits Authorized [id number] Closed Auto-Generate d Referral 12/10/2023 01/08/2025 1 1 [facility] for referral (narrative)* Diagnostic Procedure Only (Routine) - Authorized Specialty Diagnoses / Procedures Referred By Leonardo kwan Referred To Contact BR IMAGING Diagnoses Encounter for screening mammogram for breast cancer Procedures GALINA SCREENING W LIZA SCREENING DIGITAL BREAST TOMOSYNTHESIS BI SCREENING MAMMOGRAPHY BI 2-VIEW BREAST INC Neena Maldonado APRN.CNP [address] [place] [address] Br Imaging [address] [place] [address] Referral ID Status Reason Start Date Expiration Date Visits Requested Visits Authorized [id number] Authorized Auto-Generat ed Referral 12/12/2023 01/10/2025 1 1 [facility] for referral (narrative)* Diagnostic Procedure Only (Routine) - Closed Specialty Diagnoses / Procedures Referred By Leonardo kwan Referred To Contact XR IMAGING Diagnoses Hammertoe of left foot Procedures XR FOOT GENERAL 3V AP/LAT/OBL LEFT RADEX FOOT COMPLETE MINIMUM 3 VIEWS Kedar Long [address] [address] [place] [address] Referral ID Status Reason Start Date Expiration Date V isits Requested Visits Authorized [id number] Closed Auto-Generate d Referral 04/02/2024 05/02/2025 1 1 * Outpatient Procedure (Routine) - Authorized Specialty Diagnoses / Procedures Referred By Leonardo kwan Referred [facility] Diagnoses Callus of foot Diminished pulses in lower extremity Procedures PVR ANK PRESS YUE VAS LAB NON-INVAS PHYSIOLOGIC STD EXTREMITY ART 2 LEVEL Kedar Long [address] [address] [facility] [address] [place] [address] Referral ID Status Reason Start Date Expiration Date Visits Requested Visits Authorized [id number] Authorized Auto-Generat ed Referral 04/02/2024 04/02/2025 1 1 [facility] for referral (narrative)No reason for referral information availableWMagruder [facility] Work Phone: Reason for visit Narrative* Diagnostic Procedure Only (Routine) - Closed Specialty Diagnoses / Procedures Referred By Leonardo kwan Referred To Contact BR IMAGING Diagnoses Screening mammogram for breast cancer Procedures GALINA SCREENING SCREENING MAMMOGRAPHY BI 2-VIEW BREAST INC CAD Erica Herman MD [address] [place] [address] Br Imaging [address] [place] [address] Referral ID Status Reason Start Date Expiration Date V isits Requested Visits Authorized [id number] Closed Auto-Generate d Referral 11/01/2022 12/01/2023 1 1 [facility] for visit Narrative* Diagnostic Procedure Only (Routine) - Pending Peer to Peer Review Specialty Diagnoses / Procedures Referred By Leonardo kwan Referred To Contact MOLECULAR & FUNCTIONAL IMAGING Diagnoses Coronary artery calcification seen on CAT scan Procedures NM CARDIAC PERF STRESS/PHARM MYOCARDIAL SPECT MULTIPLE STUDIES Yaakov Hayes MD [address] [facility], [address] [place] [address] Molecular & Functional Imaging [address] [place] [address] Referral ID Status Reason Start Date Expiration Date Visits Requested Visits Authorized [id number] Pending Peer to Peer Review Auto-Genera chhaya Referral Patient Cleared - Admin/Chair man/Directo r advise to proceed or did not respond 08/05/2023 09/04/2023 3 3 [facility] for visit Narrative* Diagnostic Procedure Only (Routine) - Closed Specialty Diagnoses / Procedures Referred By Leonardo kwan Referred To Contact XR IMAGING Diagnoses Diabetic ulcer of heel associated with diabetes mellitus due to underlying condition, limited to breakdown of skin, unspecified laterality (HCC) Procedures XR FOOT GENERAL 3V AP/LAT/OBL LEFT RADEX FOOT COMPLETE MINIMUM 3 VIEWS Kedar Long [address] [place] [address] [place] [address] Referral ID Status Reason Start Date Expiration Date V isits Requested Visits Authorized [id number] Closed Auto-Generate d Referral 12/10/2023 01/08/2025 1 1 [facility] for visit Narrative* Diagnostic Procedure Only (Routine) - Closed Specialty Diagnoses / Procedures Referred By Contac t Referred To Contact BR IMAGING Diagnoses Encounter for screening mammogram for breast cancer Procedures GALINA SCREENING SCREENING MAMMOGRAPHY BI 2-VIEW BREAST INC CAD Korina Kitchen APRN.CNM [address] [place] [address] Br Imaging [address] [place] [address] Referral ID Status Reason Start Date Expiration Date V isits Requested Visits Authorized [id number] Closed Auto-Generate d Referral 12/11/2023 01/09/2024 1 1 [facility] for visit Narrative* Diagnostic Procedure Only (Routine) - Closed Specialty Diagnoses / Procedures Referred By Contac t Referred To Contact XR IMAGING Diagnoses Hammertoe of left foot Procedures XR FOOT GENERAL 3V AP/LAT/OBL LEFT RADEX FOOT COMPLETE MINIMUM 3 VIEWS Kedar Long [address] [address] [place] [address] Referral ID Status Reason Start Date Expiration Date V isits Requested Visits Authorized [id number] Closed Auto-Generate d Referral 04/02/2024 05/02/2025 1 1 [facility] for visit Narrative* Diagnostic Procedure Only (Routine) - Closed Specialty Diagnoses / Procedures Referred By Contac t Referred To Contact XR IMAGING Diagnoses Ulcer of toe of left foot, with fat layer exposed (HCC) Procedures XR FOOT GENERAL 3V AP/LAT/OBL LEFT RADEX FOOT COMPLETE MINIMUM 3 VIEWS Kedar Long [address] [place] [address] Phone: tel: fax: [place] [address] Referral ID Status Reason Start Date Expiration Date V isits Requested Visits Authorized [id number] Closed Auto-Generate d Referral 09/01/2024 10/01/2025 1 1 [facility] for visit Narrative* Diagnostic Procedure Only (Routine) - Closed Specialty Diagnoses / Procedures Referred By Contac t Referred To Contact XR IMAGING Diagnoses Ulcer of toe of left foot, with fat layer exposed (HCC) Procedures XR FOOT GENERAL 3V AP/LAT/OBL LEFT RADEX FOOT COMPLETE MINIMUM 3 VIEWS Kedar Long[address] [place] [address] Phone: tel: fax: [place] [address] Referral ID Status Reason Start Date Expiration Date V isits Requested Visits Authorized [id number] Closed Auto-Generate d Referral 10/01/2024 10/31/2025 1 1 [facility] Summary Purpose Family History No Family History Records Found Relationship Condition Age at Onset Recorded Date/T neena grandmother Malignant neoplasm of breast Unknown father Cardiac disease Unknown Hypertension Unknown sister Disorder of thyroid Unknown aunt Disorder of thyroid Unknown Relationship Condition Age at Onset Recorded Date/T neena Not Specified Arthritis Unknown Kidney disorder Unknown Myocardial infarction Unknown Cerebrovascular accident (CVA) Unknown grandmother Malignant neoplasm of breast Unknown father Cardiac disease Unknown Hypertension Unknown sister Disorder of thyroid Unknown aunt Disorder of thyroid Unknown Advance Directives No Advanced Directives Records Found Advance Directive Response Recorded Date/ Time Living Will No November 08 6:29pm Power of Hospital Attendant No November 08 021 6:29pm Advance Directive Response Recorded Date/ Time Living Will No November 08 5:29pm Power of Hospital Attendant No November 08 021 5:29pm Advance Directive Response Recorded Date/ Time Living Will No May 31, 2022 1:12am Power of Hospital Attendant No May 31 1:12am Advance Directive Response Recorded Date/ Time Living Will No February 16 1:38pm Power of Hospital Attendant No February 16, 2023 1:38pm Advance Directive Response Recorded Date/ Time Living Will No February 26 2 023 9:06am Power of Hospital Attendant No February 26, 2023 9:06am Advance Directive Response Recorded Date/ Time Living Will No February 26 023 1:47pm Power of Hospital Attendant No February 26, 2023 1:47pm Advance Directive Response Recorded Date/ Time Living Will No February 26 2 023 2:47pm Power of Hospital Attendant No February 26, 2023 2:47pm Advance Directive Response Recorded Date/ Time Do you have a Healthcare Power of Hospital Attendant? No July 22, 2024 7:20am Advance Directive Response Recorded Date/ Time Do you have a Healthcare Power of Hospital Attendant? 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 Reason for Visit Non compliance w med ication regimen Diabetes Hypokalemia Vitamin D deficiency Chief Complaint 3 M FU WOUND Reason for Visit Diabetes Chief Complaint 3 M FU WOUND RLE STUMP INFECTION Reason for Visit Diabetes Cellulitis and abscess of right lower extremity Sinus tachycardia seen on traffic monitor specialist Status post below knee amputation of right lower extremity [id number] Chief Complaint WOUND RLE STUMP INFECTION RLE STUMP INFECTION RLE STUMP INFECTION RLE STUMP INFECTION RLE STUMP INFECTION RLE STUMP INFECTION RLE STUMP INFECTION wound wound wound wound wound 4 M FU, RS 12/13 Reason for Visit [id number] Underweight Diabetes Chief Complaint WOUND RLE STUMP INFECTION RLE STUMP INFECTION RLE STUMP INFECTION RLE STUMP INFECTION RLE STUMP INFECTION RLE STUMP INFECTION RLE STUMP INFECTION wound wound wound wound wound 4 M FU, RS 12/13 wound wound Reason for Visit [id number] Underweight Diabetes [id number] Chief Complaint WOUND RLE STUMP INFECTION RLE STUMP INFECTION RLE STUMP INFECTION RLE STUMP INFECTION RLE STUMP INFECTION RLE STUMP INFECTION RLE STUMP INFECTION wound wound wound wound wound 4 M FU, RS 12/13 wound wound wound wound wound EORDER wound wound Reason for Visit [id number] Underweight Diabetes [id number] Chief Complaint RLE STUMP INFECTION RLE STUMP INFECTION RLE STUMP INFECTION RLE STUMP INFECTION RLE STUMP INFECTION RLE STUMP INFECTION RLE STUMP INFECTION wound wound wound wound wound 4 M FU, RS 12/13 wound wound wound wound wound EORDER wound 2 M FU wound wound Reason for Visit [id number] Underweight Diabetes [id number] Diabetes Vitamin D deficiency [id number] Chief Complaint RLE STUMP INFECTION RLE STUMP INFECTION RLE STUMP INFECTION RLE STUMP INFECTION RLE STUMP INFECTION RLE STUMP INFECTION RLE STUMP INFECTION wound wound wound wound wound 4 M FU, RS 12/13 wound wound wound wound wound EORDER wound 2 M FU wound wound R BKA WOUND BED BUGS Reason for Visit [id number] Underweight Diabetes [id number] Diabetes Vitamin D deficiency [id number] Chief Complaint RLE STUMP INFECTION RLE STUMP INFECTION RLE STUMP INFECTION RLE STUMP INFECTION RLE STUMP INFECTION RLE STUMP INFECTION wound wound wound wound wound 4 M FU, RS 12/13 wound wound wound wound wound EORDER wound 2 M FU wound wound R BKA WOUND BED BUGS Reason for Visit [id number] Underweight Diabetes [id number] Diabetes Vitamin D deficiency [id number] Chief Complaint wound wound wound wound wound 4 M FU, RS 12/13 wound wound wound wound wound EORDER wound 2 M FU wound wound R BKA WOUND BED BUGS R BKA WOUND BED BUGS wound wound Reason for Visit [id number] Underweight Diabetes [id number] Diabetes Vitamin D deficiency [id number] Chief Complaint wound wound wound 4 M FU, RS 12/13 wound wound wound wound wound EORDER wound 2 M FU wound wound R BKA WOUND BED BUGS R BKA WOUND BED BUGS wound wound wound wound Reason for Visit [id number] Underweight Diabetes [id number] Diabetes Vitamin D deficiency [id number] Chief Complaint 3 M FU WOUND RLE STUMP INFECTION RLE STUMP INFECTION RLE STUMP INFECTION RLE STUMP INFECTION RLE STUMP INFECTION RLE STUMP INFECTION Reason for Visit Diabetes Cellulitis and abscess of right lower extremity Sinus tachycardia seen on traffic monitor specialist Status post below knee amputation of right lower extremity [id number] Chief Complaint Admit Date 3 M FU May 27, 2024 10: 09am HHS July 22, 2024 9:41am Reason for Visit Admit Date Housing instability May 27, 2024 10: 09am Diabetes May 27, 2024 10: 09am Hypertension May 27, 2024 10: 09am Microalbuminuria May 27, 2024 10: 09am Osteoporosis May 27, 2024 10: 09am Underweight May 27, 2024 10: 09am Abnormal urinalysis July 22, 2024 9:41am VIJAY (acute kidney injury) July 22, 2024 9:41am Dehydration July 22, 2024 9:41am Diarrhea July 22, 2024 9:41am High anion gap metabolic acidosis July 9:41am Hyperosmolar hyperglycemic state (HHS) M 2024 9:41am Leukocytosis July 22, 2024 9:41am Noncompliance July 22, 2024 9:41am Thrombocytosis July 22, 2024 9:41am Uncontrolled hypertension July 22, 2024 9:41am Vaginal yeast infection July 22, 2024 9: 41am Chief Complaint Admit Date 3 M FU May 27, 2024 10: 09am HHS July 22, 2024 9:41am HHS July 22, 2024 9:52am HHS July 23, 2024 7:04am HHS July 24, 2024 7:47am HHS July 25, 2024 8:18a m Chief Complaint Admit Date 3 M FU May 27, 2024 10: 09am HHS July 22, 2024 9:41am HHS July 22, 2024 9:52am HHS July 23, 2024 7:04am HHS July 24, 2024 7:47am HHS July 25, 2024 8:18a m Dexcom Application Instruction July 27, 2024 11:41am 3 FU August 26, 2024 10:4 4am Reason for Visit Admit Date Housing instability May 27, 2024 10: 09am Diabetes May 27, 2024 10: 09am Hypertension May 27, 2024 10: 09am Microalbuminuria May 27, 2024 10: 09am Osteoporosis May 27, 2024 10: 09am Underweight May 27, 2024 10: 09am Diarrhea July 22, 2024 9:41am Noncompliance July 22, 2024 9:41am Abnormal urinalysis July 22, 2024 9:41am VIJAY (acute kidney injury) July 22, 2024 9:41am Dehydration July 22, 2024 9:41am High anion gap metabolic acidosis July 7t h2024 9:41am Hyperosmolar hyperglycemic state (HHS) M ay 2024 9:41am Leukocytosis July 22, 2024 9:41am Thrombocytosis July 22, 2024 9:41am Uncontrolled hypertension July 22, 2024 9:41am Vaginal yeast infection July 22, 2024 9: 41am Chief Complaint Admit Date 3 M FU May 27, 2024 10: 09am HHS July 22, 2024 9:41am HHS July 22, 2024 9:52am HHS July 23, 2024 7:04am HHS July 24, 2024 7:47am HHS July 25, 2024 8:18a m Dexcom Application Instruction July 27, 2024 11:41am 3 M FU August 26, 2024 10:4 4am INT LAB ORDERS August 26, 2024 11:4 6am Reason for Visit Admit Date Housing instability May 27, 2024 10: 09am Diabetes May 27, 2024 10: 09am Hypertension May 27, 2024 10: 09am Osteoporosis May 27, 2024 10: 09am Underweight May 27, 2024 10: 09am Microalbuminuria May 27, 2024 10: 09am Diarrhea July 22, 2024 9:41am Noncompliance July 22, 2024 9:41am Abnormal urinalysis July 22, 2024 9:41am VIJAY (acute kidney injury) July 22, 2024 9:41am Dehydration July 22, 2024 9:41am High anion gap metabolic acidosis July 7t h2024 9:41am Hyperosmolar hyperglycemic state (HHS) M ay 2024 9:41am Leukocytosis July 22, 2024 9:41am Thrombocytosis July 22, 2024 9:41am Uncontrolled hypertension July 22, 2024 9:41am Vaginal yeast infection July 22, 2024 9: 41am Diabetes August 26, 2024 10:4 4am Hypertension August 26, 2024 10:4 4am Microalbuminuria due to type 2 diabetes mellitus August 26, 2024 10:44am Noncompliance August 26, 2024 10:4 4am Osteoporosis August 26, 2024 10:4 4am Vitamin D deficiency August 26, 2024 10: 44am Chief Complaint Admit Date HHS July 22, 2024 9:41am HHS July 22, 2024 9:52am HHS July 23, 2024 7:04am HHS July 24, 2024 7:47am HHS July 25, 2024 8:18a m Dexcom Application Instruction July 27, 2024 11:41am 3 M FU August 26, 2024 10:4 4am INT LAB ORDERS August 26, 2024 11:4 6am wound October 14, 2024 2:15 pm Reason for Visit Admit Date Diarrhea July 22, 2024 9:41am Noncompliance July 22, 2024 9:41am Abnormal urinalysis July 22, 2024 9:41am VIJAY (acute kidney injury) July 22, 2024 9:41am Dehydration July 22, 2024 9:41am High anion gap metabolic acidosis July 9:41am Hyperosmolar hyperglycemic state (HHS) M 2024 9:41am Leukocytosis July 22, 2024 9:41am Thrombocytosis July 22, 2024 9:41am Uncontrolled hypertension July 22, 2024 9:41am Vaginal yeast infection July 22, 2024 9: 41am Diabetes August 26, 2024 10:4 4am Hypertension August 26, 2024 10:4 4am Microalbuminuria due to type 2 diabetes mellitus August 26, 2024 10:44am Noncompliance August 26, 2024 10:4 4am Osteoporosis August 26, 2024 10:4 4am Vitamin D deficiency August 26, 2024 10: 44am Chronic painful diabetic polyneuropathy October 14, 2024 2:15pm Non-pressure chronic ulcer o f other part of left foot with fat layer exposed October 14, 2024 2:15pm 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 October 14, 2024 2:15pm Chief Complaint Admit Date [facility] July 22, 2024 9:41am HHS July 22, 2024 9:52am HHS July 23, 2024 7:04am HHS July 24, 2024 7:47am HHS July 25, 2024 8:18a m Dexcom Application Instruction July 27, 2024 11:41am 3 M FU August 26, 2024 10:4 4am INT LAB ORDERS August 26, 2024 11:4 6am wound October 14, 2024 2:15 pm 2 M FU November 04, 2024 11 :43am Reason for Visit Admit Date Diarrhea July 22, 2024 9:41am Noncompliance July 22, 2024 9:41am Abnormal urinalysis July 22, 2024 9:41am VIJAY (acute kidney injury) July 22, 2024 9:41am Dehydration July 22, 2024 9:41am High anion gap metabolic acidosis July 9:41am Hyperosmolar hyperglycemic state (HHS) [facility] 2024 9:41am Leukocytosis July 22, 2024 9:41am Thrombocytosis July 22, 2024 9:41am Uncontrolled hypertension July 22, 2024 9:41am Vaginal yeast infection July 22, 2024 9: 41am Diabetes August 26, 2024 10:4 4am Hypertension August 26, 2024 10:4 4am Microalbuminuria due to type 2 diabetes mellitus August 26, 2024 10:44am Noncompliance August 26, 2024 10:4 4am Osteoporosis August 26, 2024 10:4 4am Vitamin D deficiency August 26, 2024 10: 44am Chronic painful diabetic polyneuropathy October 14, 2024 2:15pm Non-pressure chronic ulcer o f other part of left foot with fat layer exposed October 14, 2024 2:15pm 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 October 14, 2024 2:15pm Diabetes November 04, 2024 11 :43am Hypertension November 04, 2024 11 :43am Osteoporosis November 04, 2024 11 :43am Vitamin D deficiency November 04, 2024 1 1:43am Chief Complaint Admit Date [facility] July 22, 2024 9:41am HHS July 22, 2024 9:52am HHS July 23, 2024 7:04am HHS July 24, 2024 7:47am HHS July 25, 2024 8:18a m Dexcom Application Instruction July 27, 2024 11:41am 3 M FU August 26, 2024 10:4 4am INT LAB ORDERS August 26, 2024 11:4 6am wound October 14, 2024 2:15 pm 2 M FU November 04, 2024 11 :43am wound November 11, 2024 1: 45pm Reason for Visit Admit Date Diarrhea July 22, 2024 9:41am Noncompliance July 22, 2024 9:41am Abnormal urinalysis July 22, 2024 9:41am VIJAY (acute kidney injury) July 22, 2024 9:41am Dehydration July 22, 2024 9:41am High anion gap metabolic acidosis July 9:41am Hyperosmolar hyperglycemic state (HHS) M ay 2024 9:41am Leukocytosis July 22, 2024 9:41am Thrombocytosis July 22, 2024 9:41am Uncontrolled hypertension July 22, 2024 9:41am Vaginal yeast infection July 22, 2024 9: 41am Diabetes August 26, 2024 10:4 4am Hypertension August 26, 2024 10:4 4am Microalbuminuria due to type 2 diabetes mellitus August 26, 2024 10:44am Noncompliance August 26, 2024 10:4 4am Osteoporosis August 26, 2024 10:4 4am Vitamin D deficiency August 26, 2024 10: 44am Chronic painful diabetic polyneuropathy October 14, 2024 2:15pm Non-pressure chronic ulcer o f other part of left foot with fat layer exposed October 14, 2024 2:15pm 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 October 14, 2024 2:15pm Diabetes November 04, 2024 11 :43am Hypertension November 04, 2024 11 :43am Osteoporosis November 04, 2024 11 :43am Vitamin D deficiency November 04, 2024 1 1:43am Chronic painful diabetic polyneuropathy November 11, 2024 1:45pm 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 November 11, 2024 1:45pm Reason for Referral Specialty Diagnoses / Procedures Referred By Leonardo t Referred To Contact Cardiology Diagnoses Coronary artery calcification seen on CAT scan Procedures CONSULT TO CARDIOLOGY OFFICE/OUTPATIENT [facility] 60-74 MINUTES Naomy Bergman, SECTION MAINTAINER.AUTO WASH BUFFER [address] [place] [address] Referral ID Status Reason Start Date Expiration Date Visits Requested Visits Authorized [id number] Authorized PCP Requested Referral 12/10/2022 12/10/2023 1 1 Specialty Diagnoses / Procedures Referred By Contac t Referred To Contact CT IMAGING Diagnoses Tobacco use Procedures CT LUNG SCREEN WO IVCON COMPUTED TOMOGRAPHY THORAX LW DOSE LNG CA SCR C- [place] RiverNaomy vick, SECTION MAINTAINER.AUTO WASH BUFFER [address] [place] [address] [place] [address] Referral ID Status Reason Start Date Expiration Date Visits Requested Visits Authorized [id number] Pending Review Auto-Generat ed Referral 12/10/2022 01/09/2024 1 1 Specialty Diagnoses / Procedures Referred By Contac t Referred To Contact Podiatry Diagnoses Callus of foot Thickened nails Procedures CONSULT TO PODIATRY OFFICE/OUTPATIENT [facility] 60-74 MINUTES Erica Herman MD [address] [place] [address] Referral ID Status Reason Start Date Expiration Date Visits Requested Visits Authorized [id number] Authorized PCP Requested Referral 3 02/01/2024 1 1 Additional Source Comments INFORMATION SOURCE (unrecogn ized section and content) DATE CREATED AUTHOR 12/24/2018 [facility] DATE CREATED AUTHOR AUTHOR'S ORGANIZ ATION 12/18/2022 [facility] DATE CREATED AUTHOR AUTHOR'S ORGANIZ ATION 08/31/2023 [facility] DATE CREATED AUTHOR AUTHOR'S ORGANIZ ATION 11/30/2024 [facility] DATE CREATED AUTHOR AUTHOR'S ORGANIZ ATION 12/03/2024 [facility] Goals (unrecognized section and content) Goals may be documented in a n alternate sectionGoals may be documented in an alternate sectionGoals may be documented in an alternate sectionGoals may be documented in an alternate sectionGoals may be documented in an alternate sectionGoals may be documented in an alternate sectionGoals may be documented in an alternate sectionGoals may be documented in an alternate sectionGoals may be documented in an alternate sectionGoals may be documented in an alternate section Care Teams (unrecognized sec tion and content) Team Status: Active Member Role Status Dates [facility] Family Provider Active [facility] Primary Care Provider A ctive Team Status: Inactive Member Role Status Dates [facility] Primary Care Provider, Referring Provider Active Millie Sharif NP-Sole Attending Provider Active Team Status: Inactive Member Role Status Dates Felecia Christianson NP-C Primary Care Provider, Referring P rovider Active Millie Sharif , INDUSTRIAL GAS FITTER HELPER-C Attending Provider Active Team Status: Inactive Member Role Status Dates Felecia Christianson NP-Sole Primary Care Provide r, Attending Provider, Referring Provider Active Team Status: Inactive Member Role Status Dates [facility] Primary Care Provider A ctive Millie Sharif INDUSTRIAL GAS FITTER HELPER-C Attending Provider, Referring Pr ovider Active Team Status: Active Member Role Status Dates [facility] Family Provider Active Felecia Christianson VSC, INDUSTRIAL GAS FITTER HELPER-C Primary Care Provider Active Team Status: Inactive Member Role Status Dates Felecia MAIERC, INDUSTRIAL GAS FITTER HELPER-C Primary Care Provider, Referrin g Provider Active Millie Sharif NP-C Attending Provider Active Team Status: Active Member Role Status Dates Dr. Kee Kaye DO Emergency Provider Active Felecia MAIERC, INDUSTRIAL GAS FITTER HELPER-C Primary Care Provider Active Dr. Lam Enriquez MD Admit Provider, Attending Provider, Other Provider Active Team Status: Active Member Role Status Dates Dr. Kee Kaye DO Emergency Provider Active Felecia MAIERC, INDUSTRIAL GAS FITTER HELPER-C Primary Care Provider Active Dr. Lam Enriquez MD Admit Provider, Attending Pro vider Active Emotional Disabilities Teacher Relationship Specialty Start Date End Date Felecia Christianson CNP [address] [place] [address] Referring Internal Medicine 09/06/20 Emotional Disabilities Teacher Relationship Specialty Start Date End Date Felecia Christianson CNP [address] [place] [address] Referring Internal Medicine 09/06/20 Emotional Disabilities Teacher Relationship Specialty Start Date End Date Meghan Felecia BARTOLO Akins [address] [place] [address], [place] [address] Referring Internal Medicine 09/06/20 Emotional Disabilities Teacher Relationship Specialty Start Date End Date Meghan Feleciapaco Akins CNP [address] [place] [address], [place] [address] Referring Internal Medicine 09/06/20 Emotional Disabilities Teacher Relationship Specialty Start Date End Date ChristiansonFelecia tello BARTOLO Akins [address] [place] [address], [place] [address] Referring Internal Medicine 09/06/20 Emotional Disabilities Teacher Relationship Specialty Start Date End Date ChristiansonFelecia tello BARTOLO Akins [address] [place] [address], [place] [address] Referring Internal Medicine 09/06/20 Emotional Disabilities Teacher Relationship Specialty Start Date End Date ChristiansonFelecia tello BARTOLO [address] [place] [address], [place] [address] Referring Internal Medicine 09/06/20 Emotional Disabilities Teacher Relationship Specialty Start Date End Date ChristiansonFelecia tello Mable BARTOLO [address] [place] [address], [place] [address] Referring Internal Medicine 09/06/20 Emotional Disabilities Teacher Relationship Specialty Start Date End Date ChristiansonFelecia tello BARTOLO [address] [place] [address], [place] [address] Referring Internal Medicine 09/06/20 Emotional Disabilities Teacher Relationship Specialty Start Date End Date Felecia Christianson BARTOLO [address] [place] [address], [place] [address] Referring Internal Medicine 09/06/20 Team Status: Inactive Member Role Status Dates Felecia Christianson VSC, INDUSTRIAL GAS FITTER HELPER-C Referring Provider Active ANNABEL ChavezC Attending Provider Active [facility] Primary Care Provider A ctive Team Status: Inactive Member Role Status Dates Dr. Kee Kaye , DO Attending Provider, Emergency Provide r Active Felecia Christianson VSC, INDUSTRIAL GAS FITTER HELPER-C Primary Care Provider Active Team Status: Inactive Member Role Status Dates Cynthia Fulton INDUSTRIAL GAS FITTER HELPER, INDUSTRIAL GAS FITTER HELPER-C Primary Care Provider, Atten ding Provider Active Team Status: Inactive Member Role Status Dates Cynthia Fulton INDUSTRIAL GAS FITTER HELPER, INDUSTRIAL GAS FITTER HELPER-C Other Provider Active [facility] Primary C are Provider, Attending Provider, Referring Provider Active Millie Sharif , INDUSTRIAL GAS FITTER HELPER-C Other Provider Active Emotional Disabilities Teacher Relationship Specialty Start Date End Date Erica Herman MD [address] [place] [address] PCP - General Family Medicine 11/01/22 Felecia Christianson AUTO WASH BUFFER [address] [place] [address] Referring Internal Medicine 09/06/20 Emotional Disabilities Teacher Relationship Specialty Start Date End Date Erica Herman MD [address] [place] [address] PCP - General Family Medicine 11/01/22 Felecia Christianson AUTO WASH BUFFER [address] [place] [address] Referring Internal Medicine 09/06/20 Emotional Disabilities Teacher Relationship Specialty Start Date End Date Erica Herman MD [address] [place] [address] PCP - General Family Medicine 11/01/22 Felecia Christianson, AUTO WASH BUFFER [address] [place] [address] Referring Internal Medicine 09/06/20 Emotional Disabilities Teacher Relationship Specialty Start Date End Date Erica Herman MD [address] [place] [address] PCP - General Family Medicine 11/01/22 Felecia Christianson, AUTO WASH BUFFER [address] [place] [address] Referring Internal Medicine 09/06/20 Emotional Disabilities Teacher Relationship Specialty Start Date End Date Erica Herman MD [address] [place] [address] PCP - General Family Medicine 11/01/22 Felecia Christianson, AUTO WASH BUFFER [address] [place] [address] Referring Internal Medicine 09/06/20 Emotional Disabilities Teacher Relationship Specialty Start Date End Date Erica Herman MD [address] [place] [address] PCP - General Family Medicine 11/01/22 Felecia Christianson, AUTO WASH BUFFER [address] [place] [address] Referring Internal Medicine 09/06/20 Emotional Disabilities Teacher Relationship Specialty Start Date End Date Erica Herman MD [address] [place] [address] PCP - General Family Medicine 11/01/22 Felecia Christianson, AUTO WASH BUFFER [address] [place] [address] Referring Internal Medicine 09/06/20 Team Status: Inactive Member Role Status Dates [facility] Primary Care Provider A ctive Dr. Cassidy Mendez , DO Referring Provider, Emergency Pro vider Active Emotional Disabilities Teacher Relationship Specialty Start Date End Date Erica Herman MD [address] [place] [address] PCP - General Family Medicine 11/01/22 Felecia Christianson, AUTO WASH BUFFER [address] [facility] [place] [address] Referring Internal Medicine 09/06/20 Team Status: Active Member Role Status Dates [facility] Family Provider Active Dr. Art Herman MD Primary Care Provider Acti ve Team Status: Active Member Role Status Dates Dr. Adrien Godoy MD Emergency Provider Active Dr. Art Herman MD Primary Care Provider Acti ve Dr. Sandie Monson MD Admit Provider, Attending Prov ider Active Team Status: Inactive Member Role Status Dates [facility] Primary Care Provider A ctive Dr. Csasidy Mendez DO Attending Provider, Referring Provider, Emergency Provider Active Team Status: Inactive Member Role Status Dates [facility] Referring Provider Acti ve Millie Sharif NP-C Attending Provider Active Dr. Art Herman MD Primary Care Provider Acti ve Team Status: Active Member Role Status Dates Dr. Adrien Godoy MD Emergency Provider Active Dr. Art Herman MD Primary Care Provider Acti ve Dr. Sandie Monson MD Admit Provider, Referring Provider, Other Provider Active Dr. Toni Flanagan MD Attending Provider, Other Provid er Active Team Status: Active Member Role Status Dates Dr. Adrien Godoy MD Emergency Provider Active Dr. Art Herman MD Primary Care Provider Acti ve Dr. Sandie Monson MD Admit Provider, Other Provider Active Dr. Toni Flanagan MD Attending Provider, Other Provid er Active Team Status: Active Member Role Status Dates Dr. Adrien Godoy MD Emergency Provider Active Dr. Art Herman MD Primary Care Provider Acti ve Dr. Sandie Monson MD Admit Provider, Attending Provider, Other Provider Active Dr. Toni Flanagan MD Other Provider Active Team Status: Active Member Role Status Dates Dr. Art Herman MD Primary Care Provider Acti ve FRANK Camp Attending Provider, Other Provider A ctive Dr. Sandie Monson MD Referring Provider Active Team Status: Inactive Member Role Status Dates Dr. Adrien Godoy MD Emergency Provider Active Dr. Art Herman MD Primary Care Provider Acti ve Dr. Sandie Monson MD Admit Provider, Attending Prov ider Active Dr. Toni Flanagan MD Other Provider Active Team Status: Inactive Member Role Status Dates Dr. Art Hreman MD Primary Care Provider Acti ve [employer]ANK Camp Attending Provider Active Dr. Sandie Monson MD Referring Provider Active Team Status: Active Member Role Status Dates Dr. Art Herman MD Primary Care Provider Acti ve Millie Sharif NP-C Attending Provider, Referring Pr ovider Active Team Status: Inactive Member Role Status Dates Dr. Art Herman MD Primary Care Provider Acti ve Millie Sharif NP-C Attending Provider, Referring Pr ovider Active Team Status: Active Member Role Status Dates Dr. Art Herman MD Primary Care Provider Acti ve [employer] Camp Attending Provider Active Dr. Sandie Monson MD Referring Provider Active Emotional Disabilities Teacher Relationship Specialty Start Date End Date Erica Herman MD [address] [place], [place] [address] PCP - General Family Medicine 11/01/22 Felecia Christianson CNP [address] [place] [address] Referring Internal Medicine 09/06/20 Team Status: Inactive Member Role Status Dates Dr. Art Herman MD Primary Care Provider Acti ve [employer] Camp Attending Provider, Referring Provid er Active Team Status: Inactive Member Role Status Dates Dr. Art Herman MD Primary Care Provider, Ref erring Provider Active Millie Sharif NP-Sole Attending Provider Active Emotional Disabilities Teacher Relationship Specialty Start Date End Date Erica Herman MD [address] [place] [address] PCP - General Family Medicine 11/01/22 Felecia Christianson CNP [address] [facility] [place] [address] Referring Internal Medicine 09/06/20 Emotional Disabilities Teacher Relationship Specialty Start Date End Date Erica Herman MD [address] [facility] [address] PCP - General Family Medicine 11/01/22 Felecia Christianson CNP [address] [facility] [place] [address] Referring Internal Medicine 09/06/20 Team Status: Inactive Member Role Status Dates Dr. Art Herman MD Primary Care Provider FRANK James Attending Provider Active Emotional Disabilities Teacher Relationship Specialty Start Date End Date Erica Herman MD [address] [facility] [place] [address] PCP - General Family Medicine 11/01/22 Felecia Christianson AUTO WASH BUFFER [address] [facility] [place] [address] Referring Internal Medicine 09/06/20 Emotional Disabilities Teacher Relationship Specialty Start Date End Date rEica Hemran MD [address] [facility] [place] [address] PCP - General Family Medicine 11/01/22 Felecia Christianson, AUTO WASH BUFFER [address] [facility] [place] [address] Referring Internal Medicine 09/06/20 Emotional Disabilities Teacher Relationship Specialty Start Date End Date Erica Herman MD [address] [place] [address] PCP - General Family Medicine 11/01/22 Felecia Christianson, AUTO WASH BUFFER [address] [facility] [place] [address] Referring Internal Medicine 09/06/20 Emotional Disabilities Teacher Relationship Specialty Start Date End Date Erica Herman MD [address] [facility] [place] [address] PCP - General Family Medicine 11/01/22 Felecia Christianson, AUTO WASH BUFFER [address] [facility] [place] [address] Referring Internal Medicine 09/06/20 Emotional Disabilities Teacher Relationship Specialty Start Date End Date Erica Herman MD [address] [facility] [place] [address] PCP - General Family Medicine 11/01/22 Felecia Christianson, AUTO WASH BUFFER [address] [facility] [place] [address] Referring Internal Medicine 09/06/20 Emotional Disabilities Teacher Relationship Specialty Start Date End Date Erica Herman MD [address] [facility] [place] [address] PCP - General Family Medicine 11/01/22 Felecia Christianson, AUTO WASH BUFFER [address] [facility] [address] Referring Internal Medicine 09/06/20 Emotional Disabilities Teacher Relationship Specialty Start Date End Date Erica Herman MD [address] [facility] [place] [address] PCP - General Family Medicine 11/01/22 Felecia Christianson, AUTO WASH BUFFER [address] [place] [address] Referring Internal Medicine 09/06/20 Emotional Disabilities Teacher Relationship Specialty Start Date End Date Erica Herman MD [address] [place] [address] PCP - General Family Medicine 11/01/22 Felecia Christianson, AUTO WASH BUFFER [address] [place] [address] Referring Internal Medicine 09/06/20 Emotional Disabilities Teacher Relationship Specialty Start Date End Date Erica Herman MD [address] [place] [address] PCP - General Family Medicine 11/01/22 Felecia Christianson, AUTO WASH BUFFER [address] [place] [address] Referring Internal Medicine 09/06/20 Emotional Disabilities Teacher Relationship Specialty Start Date End Date Erica Herman MD [address] [place] [address] PCP - General Family Medicine 11/01/22 Felecia Christianson, AUTO WASH BUFFER [address] [place] [address] Referring Internal Medicine 09/06/20 Emotional Disabilities Teacher Relationship Specialty Start Date End Date Erica Herman MD [address] [place] [address] PCP - General Family Medicine 11/01/22 Felecia Christianson, AUTO WASH BUFFER [address] [place] [address] Referring Internal Medicine 09/06/20 Emotional Disabilities Teacher Relationship Specialty Start Date End Date Erica Herman MD [address] [place] [address] PCP - General Family Medicine 11/01/22 Felecia Christianson, AUTO WASH BUFFER [address] [place] [address] Referring Internal Medicine 09/06/20 Emotional Disabilities Teacher Relationship Specialty Start Date End Date Erica Herman MD [address] [place] [address] PCP - General Family Medicine 11/01/22 Felecia Christianson, AUTO WASH BUFFER [address] [place] [address] Referring Internal Medicine 09/06/20 Emotional Disabilities Teacher Relationship Specialty Start Date End Date Erica Herman MD [address] [place] [address] PCP - General Family Medicine 11/01/22 Felecia Christianson, AUTO WASH BUFFER [address] [place] [address] Referring Internal Medicine 09/06/20 Emotional Disabilities Teacher Relationship Specialty Start Date End Date Erica Herman MD [address] [place] [address] PCP - General Family Medicine 11/01/22 Felecia Christianson, AUTO WASH BUFFER [address] [place] [address] Referring Internal Medicine 09/06/20 Emotional Disabilities Teacher Relationship Specialty Start Date End Date Erica Herman MD [address] [place] [address] PCP - General Family Medicine 11/01/22 Felecia Christianson, BARTOLO [address] [place] [address] Referring Internal Medicine 09/06/20 PodlogarSarah APRN.AUTO WASH BUFFER [address] [place] [address] Pan Re[employer] Processor Family Medicine 02/22/24 Emotional Disabilities Teacher Relationship Specialty Start Date End Date Erica Herman MD [address] [place] [address] PCP - General Family Medicine 11/01/22 Felecia Christianson, AUTO WASH BUFFER [address] [place] [address] Referring Internal Medicine 09/06/20 PodlogarSarah APRN.AUTO WASH BUFFER [address] [place] [address] Pan Reclaim Processor Family Medicine 02/22/24 Emotional Disabilities Teacher Relationship Specialty Start Date End Date Erica Herman MD [address] [place] [address] PCP - General Family Medicine 11/01/22 Felecia Christianson, BARTOLO [address] [place] [address] Referring Internal Medicine 09/06/20 PodlogarSarah APRN.AUTO WASH BUFFER [address] [place] [address] Pan Reclaim Processor Family Medicine 02/22/24 Emotional Disabilities Teacher Relationship Specialty Start Date End Date Erica Herman MD [address] [place] [address] PCP - General Family Medicine 11/01/22 Felecia Christianson, AUTO WASH BUFFER [address] [place] [address] Referring Internal Medicine 09/06/20 Podlogar, MY Smith.AUTO WASH BUFFER [address] [place] [address] [facility]ly [facility] 02/22/24 Emotional Disabilities Teacher Relationship Specialty Start Date End Date Erica Herman MD [address] [place] [address] PCP - General Family Medicine 11/01/22 Felecia Chrsitianson, AUTO WASH BUFFER [address] [place] [address] Referring Internal Medicine 09/06/20 PodlogarSarah, SECTION MAINTAINER.AUTO WASH BUFFER [address] [place] [address] Pan Reclaim Processor Family Medicine 02/22/24 Emotional Disabilities Teacher Relationship Specialty Start Date End Date Erica Herman MD [address] [place] [address] PCP - General Family Medicine 11/01/22 Felecia Christianson, AUTO WASH BUFFER [address] [place] [address] Referring Internal Medicine 09/06/20 Podlogar, Sarah, SECTION MAINTAINER.AUTO WASH BUFFER [address] [place] [address] Pan Reclaim Processor Family Medicine 02/22/24 Emotional Disabilities Teacher Relationship Specialty Start Date End Date Erica Herman MD [address] [place] [address] PCP - General Family Medicine 11/01/22 Felecia Christianson, AUTO WASH BUFFER [address] [place] [address] Referring Internal Medicine 09/06/20 Podlogar, Sarah, SECTION MAINTAINER.AUTO WASH BUFFER [address] [facility] [place] [address] Pan Reclaim Processor Family Medicine 02/22/24 Emotional Disabilities Teacher Relationship Specialty Start Date End Date Erica Herman MD [address] [place] [address] PCP - General Family Medicine 11/01/22 Felecia Christianson, AUTO WASH BUFFER [address] [place] [address] Referring Internal Medicine 09/06/20 Podlogar, Sarah, SECTION MAINTAINER.AUTO WASH BUFFER [address] [facility] [place] [address] Pan Reclaim Processor Family Medicine 02/22/24 Emotional Disabilities Teacher Relationship Specialty Start Date End Date Erica Herman MD [address] [place] [address] PCP - General Family Medicine 11/01/22 Felecia Christianson, AUTO WASH BUFFER [address] [facility] [address] Referring Internal Medicine 09/06/20 PodlogSarah martin APRN.AUTO WASH BUFFER [address] [place] [address] Pan Reclaim Processor Family [facility] [place] 02/22/24 Paige Hilliard APRN.AUTO WASH BUFFER [address] [place] [address] [facility] Emotional Disabilities Teacher Relationship Specialty Start Date End Date Erica Herman MD [address] [place] [address] PCP - General Family Medicine 11/01/22 Felecia Christianson, AUTO WASH BUFFER [address] [place] [address] Referring Internal Medicine 09/06/20 PodlogarSarah APRN.AUTO WASH BUFFER [address] [place] [address] Pan Reclaim Processor Family Medicine 02/22/24 Paige Hilliard APRN.AUTO WASH BUFFER [address] [place] [address] Formerly [facility] 05/29/24 Emotional Disabilities Teacher Relationship Specialty Start Date End Date Erica Herman MD [address] [place], [place] [address] PCP - General Family Medicine 11/01/22 Felecia Christianson AUTO WASH BUFFER [address] [place] [address] Referring Internal Medicine 09/06/20 PodlogarSarah, SECTION MAINTAINER.AUTO WASH BUFFER [address] [facility] [address] Formerly [facility] 02/22/24 Paige Hilliard SECTION MAINTAINER.AUTO WASH BUFFER [address] [place] [place] [address] Formerly [facility] 06/08/24 Emotional Disabilities Teacher Relationship Specialty Start Date End Date Erica Herman MD [address] [facility] [address] PCP - General Family Medicine 11/01/22 Felecia Christianson, AUTO WASH BUFFER [address] [place] [address] Referring Internal Medicine 09/06/20 PodlogarSarah, SECTION MAINTAINER.AUTO WASH BUFFER [address] [facility] [address] [facility] Medicine 02/22/24 Paige Hilliard, SECTION MAINTAINER.AUTO WASH BUFFER [address] [place] [address] Formerly [facility] 06/08/24 Emotional Disabilities Teacher Relationship Specialty Start Date End Date Erica Herman MD [address] [place] [address] PCP - General Family Medicine 11/01/22 Felecia Christianson, AUTO WASH BUFFER [address] [place] [address] Referring Internal Medicine 09/06/20 PodlogarSarah, SECTION MAINTAINER.AUTO WASH BUFFER [address] [place] [address] Pan Reclaim Processor Family [facility] [place] 02/22/24 Paige Hilliard APRN.AUTO WASH BUFFER [address] [place] [address] Formerly [facility] 06/08/24 Team Status: Active Member Role Status Dates Dr. Art Herman MD Primary Care Provider Acti ve Team Status: Inactive Member Role Status Dates Dr. Art Herman MD Primary Care Provider Acti ve Start: May 27, 2024 End: May 27, 2024 Dr. Art Herman MD Referring Provider Active Start: May 27, 2024 End: May 27, 2024 ANNABEL ChavezC Attending Provider Active Start: May 27, 2024 End: May 27, 2024 Team Status: Active Member Role Status Dates Dr. Art Herman MD Primary Care Provider Acti ve Start: July 22, 2024 Dr. Nani Coleman DO Emergency Provider Active Start: July 22, 2024 Dr. Floresita Capellan , Admit Provider Active Start : July 22, 2024 Dr. Floresita Capellan , DO Attending Provider Active S tart: July 22, 2024 Team Status: Inactive Member Role Status Dates Dr. Art Herman MD Primary Care Provider Acti ve Start: July 22, 2024 End: July 25, 2024 Dr. Nani Coleman DO Emergency Provider Active Start: July 22, 2024 End: July 25, 2024 Dr. Floresita Capellan , DO Admit Provider Active Start : July 22, 2024 End: July 25, 2024 Dr. Floresita Capellan , DO Attending Provider Active S tart: July 22, 2024 End: July 25, 2024 Team Status: Active Member Role Status Dates Dr. Art Herman MD Primary Care Provider Acti ve Start: July 22, 2024 Dr. Nani Coleman DO Emergency Provider Active Start: July 22, 2024 Dr. Floresita Capellan , DO Admit Provider Active Start : July 22, 2024 Dr. Floresita Capellan , DO Attending Provider Active S tart: July 22, 2024 Dr. Floresita Capellan , DO Other Provider Active Start : July 22, 2024 Team Status: Active Member Role Status Dates Dr. Art Herman MD Primary Care Provider Acti ve Start: July 23, 2024 Dr. Nani Coleman , DO Emergency Provider Active Start: July 23, 2024 Dr. Floresita Capellan , DO Admit Provider Active Start : July 23, 2024 Dr. Floresita Capellan , DO Attending Provider Active S tart: July 23, 2024 Dr. Floresita Capellan , DO Other Provider Active Start : July 23, 2024 Team Status: Active Member Role Status Dates Dr. Art Herman MD Primary Care Provider Acti ve Start: July 24, 2024 Dr. Nani Coleman , DO Emergency Provider Active Start: July 24, 2024 Dr. Floresita Capellan , DO Admit Provider Active Start : July 24, 2024 Dr. Floresita Capellan , DO Attending Provider Active S tart: July 24, 2024 Dr. Floresita Capellan , DO Other Provider Active Start : July 24, 2024 Team Status: Active Member Role Status Dates Dr. Art Herman MD Primary Care Provider Acti ve Start: July 25, 2024 Dr. Nani Coleman , DO Emergency Provider Active Start: July 25, 2024 Dr. Floresita Capellan , DO Admit Provider Active Start : July 25, 2024 Dr. Floresita Capellan , DO Attending Provider Active S tart: July 25, 2024 Dr. Floresita Capellan , DO Other Provider Active Start : July 25, 2024 Emotional Disabilities Teacher Relationship Specialty Start Date End Date Erica Herman MD [address] [place] [address] PCP - General Family Medicine 11/01/22 Felecia Christianson CNP [address] [place] [address] Referring Internal Medicine 09/06/20 PodlogarSarah APRN.AUTO WASH BUFFER [address] [place] [address] Formerly [facility] 02/22/24 Team Status: Inactive Member Role Status Dates Dr. Art Herman MD Primary Care Provider Acti ve Start: July 27, 2024 End: July 27, 2024 Dr. Art Herman MD Referring Provider Active Start: July 27, 2024 End: July 27, 2024 SINA Chavez Attending Provider Active Start: July 27, 2024 End: July 27, 2024 Team Status: Inactive Member Role Status Dates Dr. Art Herman MD Primary Care Provider Acti ve Start: August 26, 2024 End: August 26, 2024 Dr. Art Herman MD Referring Provider Active Start: August 26, 2024 End: August 26, 2024 SINA Chavez Attending Provider Active Start: August 26, 2024 End: August 26, 2024 Emotional Disabilities Teacher Relationship Specialty Start Date End Date Erica Herman MD [address] [place], [place] [id number] PCP - General Family Medicine 11/01/22 Felecia Christianson AUTO WASH BUFFER [address] [place], [place] [id number] Referring Internal Medicine 09/06/20 Sarah Fowler APRN.AUTO WASH BUFFER [address] [place], [place] [address] Formerly [facility] 02/22/24 Paige Hilliard APRN.AUTO WASH BUFFER [address] [place], [place] [id number] Formerly [facility] 08/27/24 Team Status: Inactive Member Role Status Dates Dr. Art Herman MD Primary Care Provider Acti ve Start: August 26, 2024 End: August 26, 2024 SINA Chavez Attending Provider Active Start: August 26, 2024 End: August 26, 2024 ANNABEL ChavezC Referring Provider Active Start: August 26, 2024 End: August 26, 2024 Emotional Disabilities Teacher Relationship Specialty Start Date End Date Erica Herman MD [address] [facility] [place] [address] PCP - General Family Medicine 11/01/22 Felecia Christianson, AUTO WASH BUFFER [address] [facility] [place] [address] Referring Internal Medicine 09/06/20 PodlogarSarah APRN.AUTO WASH BUFFER [address] [place] [address] [employer] Family Medicine 02/22/24 Paige Hilliard APRN.AUTO WASH BUFFER [address] [place] [address] [employer] Family Medicine 08/27/24 Emotional Disabilities Teacher Relationship Specialty Start Date End Date Erica Herman MD [address] [facility] [place] [address] PCP - General Family Medicine 11/01/22 Felecia Christianson, AUTO WASH BUFFER [address] [facility] [place] [address] Referring Internal Medicine 09/06/20 PodlogarSarah APRN.AUTO WASH BUFFER [address] [facility] [place] [address] [employer] Family Medicine 02/22/24 Paige Hilliard APRN.AUTO WASH BUFFER [address] [place] [address] [employer] Family Medicine 08/27/24 Emotional Disabilities Teacher Relationship Specialty Start Date End Date Erica Herman MD [address] [place] [address] PCP - General Family Medicine 11/01/22 Felecia Christianson, BARTOLO [address] [place] [address] Referring Internal Medicine 09/06/20 PodlogarSarah SECTION MAINTAINER.AUTO WASH BUFFER [address] [facility] [place] [address] [employer] Family Medicine 02/22/24 Paige Hilliard SECTION MAINTAINER.AUTO WASH BUFFER [address] [facility] [place] [address] [employer] Family Medicine 08/27/24 Emotional Disabilities Teacher Relationship Specialty Start Date End Date Erica Herman MD [address] [facility] [place] [address] PCP - General Family Medicine 11/01/22 Felecia Christianson, AUTO WASH BUFFER [address] [place] [address] Referring Internal Medicine 09/06/20 PodlogarSarah SECTION MAINTAINER.AUTO WASH BUFFER [address] [facility] [place] [address] [employer] Family Medicine 02/22/24 Paige Hilliard SECTION MAINTAINER.AUTO WASH BUFFER [address] [place] [place] [address] [employer] Family Medicine 08/27/24 Emotional Disabilities Teacher Relationship Specialty Start Date End Date Erica Herman MD [address] [place] [address] PCP - General Family Medicine 11/01/22 Felecia Christianson, AUTO WASH BUFFER [address] [place] [address] Referring Internal Medicine 09/06/20 Sarah Fowler APRN.AUTO WASH BUFFER [address] [place] [address] [employer] Family [facility] [place] 02/22/24 Paige Hilliard APRN.AUTO WASH BUFFER [address] [place] [address] Pan [employer]claim [employer]or [facility] 08/27/24 Team Status: Active Member Role/Relationship Status Dates Dr. Art Herman MD Primary Care Provider Acti ve Team Status: Inactive Member Role/Relationship Status Dates Dr. Art Herman MD Primary Care Provider Acti ve Start: July 22, 2024 End: July 25, 2024 Dr. Nani Coleman , Emergency Provider Active Start: July 22, 2024 End: July 25, 2024 Dr. Floresita Capellan , DO Admit Provider Active Start : July 22, 2024 End: July 25, 2024 Dr. Floresita Capellan , DO Attending Provider Active S tart: July 22, 2024 End: July 25, 2024 Team Status: Active Member Role/Relationship Status Dates Dr. Art Herman MD Primary Care Provider Acti ve Start: July 22, 2024 Dr. Nani Coleman , Emergency Provider Active Start: July 22, 2024 Dr. Floresita Capellan , DO Admit Provider Active Start : July 22, 2024 Dr. Floresita Capellan , DO Attending Provider Active S tart: July 22, 2024 Dr. Floresita Capellan , DO Other Provider Active Start : July 22, 2024 Team Status: Active Member Role/Relationship Status Dates Dr. Art Herman MD Primary Care Provider Acti ve Start: July 23, 2024 Dr. Nani Coleman , Emergency Provider Active Start: July 23, 2024 Dr. Floresita Capellan , DO Admit Provider Active Start : July 23, 2024 Dr. Floresita Capellan , DO Attending Provider Active S tart: July 23, 2024 Dr. Floresita Capellan , DO Other Provider Active Start : July 23, 2024 Team Status: Active Member Role/Relationship Status Dates Dr. Art Herman MD Primary Care Provider Acti ve Start: July 24, 2024 Dr. Nani Coleman DO Emergency Provider Active Start: July 24, 2024 Dr. Floresita Capellan DO Admit Provider Active Start : July 24, 2024 Dr. Floresita Capellan , Attending Provider Active S tart: July 24, 2024 Dr. Floresita Capellan , Other Provider Active Start : July 24, 2024 Team Status: Active Member Role/Relationship Status Dates Dr. Art Herman MD Primary Care Provider Acti ve Start: July 25, 2024 Dr. Nani Coleman , Emergency Provider Active Start: July 25, 2024 Dr. Floresita Capellan , Admit Provider Active Start : July 25, 2024 Dr. Floresita Capellan DO Attending Provider Active S tart: July 25, 2024 Dr. Floresita Capellan , Other Provider Active Start : July 25, 2024 Team Status: Inactive Member Role/Relationship Status Dates Dr. Art Herman MD Primary Care Provider Acti ve Start: July 27, 2024 End: July 27, 2024 Dr. Art Herman MD Referring Provider Active Start: July 27, 2024 End: July 27, 2024 SINA Chavez Attending Provider Active Start: July 27, 2024 End: July 27, 2024 Team Status: Inactive Member Role/Relationship Status Dates Dr. Art Herman MD Primary Care Provider Acti ve Start: August 26, 2024 End: August 26, 2024 Dr. Art Herman MD Referring Provider Active Start: August 26, 2024 End: August 26, 2024 SINA Chavez Attending Provider Active Start: August 26, 2024 End: August 26, 2024 Team Status: Inactive Member Role/Relationship Status Dates Dr. Art Herman MD Primary Care Provider Acti ve Start: August 26, 2024 End: August 26, 2024 SINA Chavez Attending Provider Active Start: August 26, 2024 End: August 26, 2024 SINA Chavez Referring Provider Active Start: August 26, 2024 End: August 26, 2024 Team Status: Inactive Member Role/Relationship Status Dates Dr. Art Herman MD Primary Care Provider Acti ve Start: October 14, 2024 End: October 15, 2024 Dr. Art Herman MD Referring Provider Active Start: October 14, 2024 End: October 15, 2024 Dr. Andriy Otoole DPM Attending Provider Active Start: October 14, 2024 End: October 15, 2024 Emotional Disabilities Teacher Relationship Specialty Start Date End Date Erica Herman MD [address] [place], [place] [address] PCP - General Family Medicine 11/01/22 Felecia Christianson AUTO WASH BUFFER [address] [place] [address] Referring Internal Medicine 09/06/20 Sarah Fowler APRN.AUTO WASH BUFFER [address] [place] [address] [employer] Family [facility] [place] 02/22/24 Paige Hilliard SECTION MAINTAINER.AUTO WASH BUFFER [address] [place] [address] [employer] Family [facility] [place] 08/27/24 Emotional Disabilities Teacher Relationship Specialty Start Date End Date Erica Herman MD [address] [place], [place] [address] PCP - General Family Medicine 11/01/22 Felecia Christianson AUTO WASH BUFFER [address] [place] [address] Referring Internal Medicine 09/06/20 PodlogarSarah, SECTION MAINTAINER.AUTO WASH BUFFER [address] [place], [place] [address] Formerly [facility] 02/22/24 Paige Hilliard, SECTION MAINTAINER.AUTO WASH BUFFER [address] [place], [place] [address] Formerly [facility] 08/27/24 Emotional Disabilities Teacher Relationship Specialty Start Date End Date Erica Herman MD [address] [place], [place] [address] PCP - General Family Medicine 11/01/22 Felecia Christianson, AUTO WASH BUFFER [address] [place] [address] Referring Internal Medicine 09/06/20 PodlogarSarah, SECTION MAINTAINER.AUTO WASH BUFFER [address] [place], [place] [address] Formerly [facility] 02/22/24 Paige Hilliard, SECTION MAINTAINER.AUTO WASH BUFFER [address] [place], [place] [id number] Formerly [facility] 08/27/24 Team Status: Inactive Member Role/Relationship Status Dates Dr. Art Herman MD Primary Care Provider Acti ve Start: November 04, 2024 End: November 04, 2024 Dr. Art Herman MD Referring Provider Active Start: November 04, 2024 End: November 04, 2024 ANNABEL ChavezC Attending Provider Active Start: November 04, 2024 End: November 04, 2024 Emotional Disabilities Teacher Relationship Specialty Start Date End Date Erica Herman MD [address] [place], [place] [id number] PCP - General Family Medicine 11/01/22 Felecia Christianson CNP [address] [facility] [place] [address] Referring Internal Medicine 09/06/20 PodlogarSarah APRN.AUTO WASH BUFFER [address] [place], [place] [address] [facility]/22/24 Paige Hilliard APRN.AUTO WASH BUFFER [address] [place], [place] [address] Formerly [facility] 08/27/24 Team Status: Inactive Member Role/Relationship Status Dates Dr. Art Herman MD Primary Care Provider Acti ve Start: November 11, 2024 End: November 15, 2024 Dr. Art Herman MD Referring Provider Active Start: November 11, 2024 End: November 15, 2024 Dr. Andriy Otoole DPM Attending Provider Active Start: November 11, 2024 End: November 15, 2024 Emotional Disabilities Teacher Relationship Specialty Start Date End Date Erica Herman MD [address] [place] [address] PCP - General Family Medicine 11/01/22 Felecia Christianson CNP [address] [place] [address] Referring Internal Medicine 09/06/20 Podlogar, MY Smith.AUTO WASH BUFFER [address] [place] [address] Formerly [facility] 02/22/24 Paige Hilliard APRN.AUTO WASH BUFFER [address] [place], [place] [id number] [facility] Family [facility] [place] 08/27/24 Emotional Disabilities Teacher Relationship Specialty Start Date End Date Erica Herman MD [address] [place], [place] [address] PCP - General Family Medicine 11/01/22 Felecia Christianson CNP [address] [place] [id number] Referring Internal Medicine 09/06/20 Sarah Fowler APRN.AUTO WASH BUFFER [address] [place], [place] [id number] Formerly [facility] 02/22/24 Paige Hilliard APRN.AUTO WASH BUFFER [address] [place], [place] [id number] Formerly [facility] 08/27/24 Source Comments (unrecognize d section and content) In the event this informatio n is protected by the Federal Confidentiality of Alcohol and Drug Abuse Patient Records regulations: The Federal rules restrict any use of the information to criminally investigate or prosecute any alcohol or drug abuse patient.[facility]In the event this information is protected by the Federal Confidentiality of Alcohol and Drug Abuse Patient Records regulations: The Federal rules restrict any use of the information to criminally investigate or prosecute any alcohol or drug abuse patient.[facility] NorthIn the event this information is protected by the Federal Confidentiality of Alcohol and Drug Abuse Patient Records regulations: The Federal rules restrict any use of the information to criminally investigate or prosecute any alcohol or drug abuse patient.[facility] NorthIn the event this information is protected by the Federal Confidentiality of Alcohol and Drug Abuse Patient Records regulations: The Federal rules restrict any use of the information to criminally investigate or prosecute any alcohol or drug abuse patient.[facility] NorthIn the event this information is protected by the Federal Confidentiality of Alcohol and Drug Abuse Patient Records regulations: The Federal rules restrict any use of the information to criminally investigate or prosecute any alcohol or drug abuse patient.[facility] NorthIn the event this information is protected by the Federal Confidentiality of Alcohol and Drug Abuse Patient Records regulations: The Federal rules restrict any use of the information to criminally investigate or prosecute any alcohol or drug abuse patient.[facility] NorthIn the event this information is protected by the Federal Confidentiality of Alcohol and Drug Abuse Patient Records regulations: The Federal rules restrict any use of the information to criminally investigate or prosecute any alcohol or drug abuse patient.[facility] NorthIn the event this information is protected by the Federal Confidentiality of Alcohol and Drug Abuse Patient Records regulations: The Federal rules restrict any use of the information to criminally investigate or prosecute any alcohol or drug abuse patient.[facility] NorthIn the event this information is protected by the Federal Confidentiality of Alcohol and Drug Abuse Patient Records regulations: The Federal rules restrict any use of the information to criminally investigate or prosecute any alcohol or drug abuse patient.[facility] NorthIn the event this information is protected by the Federal Confidentiality of Alcohol and Drug Abuse Patient Records regulations: The Federal rules restrict any use of the information to criminally investigate or prosecute any alcohol or drug abuse patient.[facility] NorthIn the event this information is protected by the Federal Confidentiality of Alcohol and Drug Abuse Patient Records regulations: The Federal rules restrict any use of the information to criminally investigate or prosecute any alcohol or drug abuse patient.[facility] NorthIn the event this information is protected by the Federal Confidentiality of Alcohol and Drug Abuse Patient Records regulations: The Federal rules restrict any use of the information to criminally investigate or prosecute any alcohol or drug abuse patient.[facility] NorthIn the event this information is protected by the Federal Confidentiality of Alcohol and Drug Abuse Patient Records regulations: The Federal rules restrict any use of the information to criminally investigate or prosecute any alcohol or drug abuse patient.[facility] NorthIn the event this information is protected by the Federal Confidentiality of Alcohol and Drug Abuse Patient Records regulations: The Federal rules restrict any use of the information to criminally investigate or prosecute any alcohol or drug abuse patient.[facility] NorthIn the event this information is protected by the Federal Confidentiality of Alcohol and Drug Abuse Patient Records regulations: The Federal rules restrict any use of the information to criminally investigate or prosecute any alcohol or drug abuse patient.[facility] NorthIn the event this information is protected by the Federal Confidentiality of Alcohol and Drug Abuse Patient Records regulations: The Federal rules restrict any use of the information to criminally investigate or prosecute any alcohol or drug abuse patient.[facility] NorthIn the event this information is protected by the Federal Confidentiality of Alcohol and Drug Abuse Patient Records regulations: The Federal rules restrict any use of the information to criminally investigate or prosecute any alcohol or drug abuse patient.[facility] NorthIn the event this information is protected by the Federal Confidentiality of Alcohol and Drug Abuse Patient Records regulations: The Federal rules restrict any use of the information to criminally investigate or prosecute any alcohol or drug abuse patient.[facility] NorthIn the event this information is protected by the Federal Confidentiality of Alcohol and Drug Abuse Patient Records regulations: The Federal rules restrict any use of the information to criminally investigate or prosecute any alcohol or drug abuse patient.[facility] NorthIn the event this information is protected by the Federal Confidentiality of Alcohol and Drug Abuse Patient Records regulations: The Federal rules restrict any use of the information to criminally investigate or prosecute any alcohol or drug abuse patient.[facility] NorthIn the event this information is protected by the Federal Confidentiality of Alcohol and Drug Abuse Patient Records regulations: The Federal rules restrict any use of the information to criminally investigate or prosecute any alcohol or drug abuse patient.[facility] NorthIn the event this information is protected by the Federal Confidentiality of Alcohol and Drug Abuse Patient Records regulations: The Federal rules restrict any use of the information to criminally investigate or prosecute any alcohol or drug abuse patient.[facility] NorthIn the event this information is protected by the Federal Confidentiality of Alcohol and Drug Abuse Patient Records regulations: The Federal rules restrict any use of the information to criminally investigate or prosecute any alcohol or drug abuse patient.[facility] NorthIn the event this information is protected by the Federal Confidentiality of Alcohol and Drug Abuse Patient Records regulations: The Federal rules restrict any use of the information to criminally investigate or prosecute any alcohol or drug abuse patient.[facility] NorthIn the event this information is protected by the Federal Confidentiality of Alcohol and Drug Abuse Patient Records regulations: The Federal rules restrict any use of the information to criminally investigate or prosecute any alcohol or drug abuse patient.[facility] NorthIn the event this information is protected by the Federal Confidentiality of Alcohol and Drug Abuse Patient Records regulations: The Federal rules restrict any use of the information to criminally investigate or prosecute any alcohol or drug abuse patient.[facility] NorthIn the event this information is protected by the Federal Confidentiality of Alcohol and Drug Abuse Patient Records regulations: The Federal rules restrict any use of the information to criminally investigate or prosecute any alcohol or drug abuse patient.[facility] NorthIn the event this information is protected by the Federal Confidentiality of Alcohol and Drug Abuse Patient Records regulations: The Federal rules restrict any use of the information to criminally investigate or prosecute any alcohol or drug abuse patient.[facility] NorthIn the event this information is protected by the Federal Confidentiality of Alcohol and Drug Abuse Patient Records regulations: The Federal rules restrict any use of the information to criminally investigate or prosecute any alcohol or drug abuse patient.[facility] NorthIn the event this information is protected by the Federal Confidentiality of Alcohol and Drug Abuse Patient Records regulations: The Federal rules restrict any use of the information to criminally investigate or prosecute any alcohol or drug abuse patient.[facility] NorthIn the event this information is protected by the Federal Confidentiality of Alcohol and Drug Abuse Patient Records regulations: The Federal rules restrict any use of the information to criminally investigate or prosecute any alcohol or drug abuse patient.[facility] NorthIn the event this information is protected by the Federal Confidentiality of Alcohol and Drug Abuse Patient Records regulations: The Federal rules restrict any use of the information to criminally investigate or prosecute any alcohol or drug abuse patient.[facility] NorthIn the event this information is protected by the Federal Confidentiality of Alcohol and Drug Abuse Patient Records regulations: The Federal rules restrict any use of the information to criminally investigate or prosecute any alcohol or drug abuse patient.[facility] NorthIn the event this information is protected by the Federal Confidentiality of Alcohol and Drug Abuse Patient Records regulations: The Federal rules restrict any use of the information to criminally investigate or prosecute any alcohol or drug abuse patient.[facility] NorthIn the event this information is protected by the Federal Confidentiality of Alcohol and Drug Abuse Patient Records regulations: The Federal rules restrict any use of the information to criminally investigate or prosecute any alcohol or drug abuse patient.[facility] NorthIn the event this information is protected by the Federal Confidentiality of Alcohol and Drug Abuse Patient Records regulations: The Federal rules restrict any use of the information to criminally investigate or prosecute any alcohol or drug abuse patient.[facility] NorthIn the event this information is protected by the Federal Confidentiality of Alcohol and Drug Abuse Patient Records regulations: The Federal rules restrict any use of the information to criminally investigate or prosecute any alcohol or drug abuse patient.[facility] NorthIn the event this information is protected by the Federal Confidentiality of Alcohol and Drug Abuse Patient Records regulations: The Federal rules restrict any use of the information to criminally investigate or prosecute any alcohol or drug abuse patient.[facility] NorthIn the event this information is protected by the Federal Confidentiality of Alcohol and Drug Abuse Patient Records regulations: The Federal rules restrict any use of the information to criminally investigate or prosecute any alcohol or drug abuse patient.[facility] NorthIn the event this information is protected by the Federal Confidentiality of Alcohol and Drug Abuse Patient Records regulations: The Federal rules restrict any use of the information to criminally investigate or prosecute any alcohol or drug abuse patient.[facility] NorthIn the event this information is protected by the Federal Confidentiality of Alcohol and Drug Abuse Patient Records regulations: The Federal rules restrict any use of the information to criminally investigate or prosecute any alcohol or drug abuse patient.[facility] NorthIn the event this information is protected by the Federal Confidentiality of Alcohol and Drug Abuse Patient Records regulations: The Federal rules restrict any use of the information to criminally investigate or prosecute any alcohol or drug abuse patient.[facility] NorthIn the event this information is protected by the Federal Confidentiality of Alcohol and Drug Abuse Patient Records regulations: The Federal rules restrict any use of the information to criminally investigate or prosecute any alcohol or drug abuse patient.[facility]In the event this information is protected by the Federal Confidentiality of Alcohol and Drug Abuse Patient Records regulations: The Federal rules restrict any use of the information to criminally investigate or prosecute any alcohol or drug abuse patient.[facility] NorthIn the event this information is protected by the Federal Confidentiality of Alcohol and Drug Abuse Patient Records regulations: The Federal rules restrict any use of the information to criminally investigate or prosecute any alcohol or drug abuse patient.[facility] NorthIn the event this information is protected by the Federal Confidentiality of Alcohol and Drug Abuse Patient Records regulations: The Federal rules restrict any use of the information to criminally investigate or prosecute any alcohol or drug abuse patient.[facility] NorthIn the event this information is protected by the Federal Confidentiality of Alcohol and Drug Abuse Patient Records regulations: The Federal rules restrict any use of the information to criminally investigate or prosecute any alcohol or drug abuse patient.[facility] NorthIn the event this information is protected by the Federal Confidentiality of Alcohol and Drug Abuse Patient Records regulations: The Federal rules restrict any use of the information to criminally investigate or prosecute any alcohol or drug abuse patient.[facility] NorthIn the event this information is protected by the Federal Confidentiality of Alcohol and Drug Abuse Patient Records regulations: The Federal rules restrict any use of the information to criminally investigate or prosecute any alcohol or drug abuse patient.[facility] NorthIn the event this information is protected by the Federal Confidentiality of Alcohol and Drug Abuse Patient Records regulations: The Federal rules restrict any use of the information to criminally investigate or prosecute any alcohol or drug abuse patient.[facility] NorthIn the event this information is protected by the Federal Confidentiality of Alcohol and Drug Abuse Patient Records regulations: The Federal rules restrict any use of the information to criminally investigate or prosecute any alcohol or drug abuse patient.[facility] NorthIn the event this information is protected by the Federal Confidentiality of Alcohol and Drug Abuse Patient Records regulations: The Federal rules restrict any use of the information to criminally investigate or prosecute any alcohol or drug abuse patient.[facility] NorthIn the event this information is protected by the Federal Confidentiality of Alcohol and Drug Abuse Patient Records regulations: The Federal rules restrict any use of the information to criminally investigate or prosecute any alcohol or drug abuse patient.[facility] NorthIn the event this information is protected by the Federal Confidentiality of Alcohol and Drug Abuse Patient Records regulations: The Federal rules restrict any use of the information to criminally investigate or prosecute any alcohol or drug abuse patient.[facility] NorthIn the event this information is protected by the Federal Confidentiality of Alcohol and Drug Abuse Patient Records regulations: The Federal rules restrict any use of the information to criminally investigate or prosecute any alcohol or drug abuse patient.[facility] NorthIn the event this information is protected by the Federal Confidentiality of Alcohol and Drug Abuse Patient Records regulations: The Federal rules restrict any use of the information to criminally investigate or prosecute any alcohol or drug abuse patient.[facility] NorthIn the event this information is protected by the Federal Confidentiality of Alcohol and Drug Abuse Patient Records regulations: The Federal rules restrict any use of the information to criminally investigate or prosecute any alcohol or drug abuse patient.[facility] NorthIn the event this information is protected by the Federal Confidentiality of Alcohol and Drug Abuse Patient Records regulations: The Federal rules restrict any use of the information to criminally investigate or prosecute any alcohol or drug abuse patient.[facility] NorthIn the event this information is protected by the Federal Confidentiality of Alcohol and Drug Abuse Patient Records regulations: The Federal rules restrict any use of the information to criminally investigate or prosecute any alcohol or drug abuse patient.[facility] NorthIn the event this information is protected by the Federal Confidentiality of Alcohol and Drug Abuse Patient Records regulations: The Federal rules restrict any use of the information to criminally investigate or prosecute any alcohol or drug abuse patient.[facility] [place] NorthIn the event this information is protected by the Federal Confidentiality of Alcohol and Drug Abuse Patient Records regulations: The Federal rules restrict any use of the information to criminally investigate or prosecute any alcohol or drug abuse patient.[facility] NorthIn the event this information is protected by the Federal Confidentiality of Alcohol and Drug Abuse Patient Records regulations: The Federal rules restrict any use of the information to criminally investigate or prosecute any alcohol or drug abuse patient.[facility] NorthIn the event this information is protected by the Federal Confidentiality of Alcohol and Drug Abuse Patient Records regulations: The Federal rules restrict any use of the information to criminally investigate or prosecute any alcohol or drug abuse patient.[facility] NorthIn the event this information is protected by the Federal Confidentiality of Alcohol and Drug Abuse Patient Records regulations: The Federal rules restrict any use of the information to criminally investigate or prosecute any alcohol or drug abuse patient.[facility] NorthIn the event this information is protected by the Federal Confidentiality of Alcohol and Drug Abuse Patient Records regulations: The Federal rules restrict any use of the information to criminally investigate or prosecute any alcohol or drug abuse patient.[facility] NorthIn the event this information is protected by the Federal Confidentiality of Alcohol and Drug Abuse Patient Records regulations: The Federal rules restrict any use of the information to criminally investigate or prosecute any alcohol or drug abuse patient.[facility] NorthIn the event this information is protected by the Federal Confidentiality of Alcohol and Drug Abuse Patient Records regulations: The Federal rules restrict any use of the information to criminally investigate or prosecute any alcohol or drug abuse patient.[facility] [place] NorthIn the event this information is protected by the Federal Confidentiality of Alcohol and Drug Abuse Patient Records regulations: The Federal rules restrict any use of the information to criminally investigate or prosecute any alcohol or drug abuse patient.[facility] [place] NorthIn the event this information is protected by the Federal Confidentiality of Alcohol and Drug Abuse Patient Records regulations: The Federal rules restrict any use of the information to criminally investigate or prosecute any alcohol or drug abuse patient.[facility] [place] NorthIn the event this information is protected by the Federal Confidentiality of Alcohol and Drug Abuse Patient Records regulations: The Federal rules restrict any use of the information to criminally investigate or prosecute any alcohol or drug abuse patient.[facility] [place] NorthIn the event this information is protected by the Federal Confidentiality of Alcohol and Drug Abuse Patient Records regulations: The Federal rules restrict any use of the information to criminally investigate or prosecute any alcohol or drug abuse patient.[facility] [place] NorthIn the event this information is protected by the Federal Confidentiality of Alcohol and Drug Abuse Patient Records regulations: The Federal rules restrict any use of the information to criminally investigate or prosecute any alcohol or drug abuse patient.[facility] [place] NorthIn the event this information is protected by the Federal Confidentiality of Alcohol and Drug Abuse Patient Records regulations: The Federal rules restrict any use of the information to criminally investigate or prosecute any alcohol or drug abuse patient.[facility] [place] NorthIn the event this information is protected by the Federal Confidentiality of Alcohol and Drug Abuse Patient Records regulations: The Federal rules restrict any use of the information to criminally investigate or prosecute any alcohol or drug abuse patient.[facility] [place] NorthIn the event this information is protected by the Federal Confidentiality of Alcohol and Drug Abuse Patient Records regulations: The Federal rules restrict any use of the information to criminally investigate or prosecute any alcohol or drug abuse patient.[facility] [place] NorthIn the event this information is protected by the Federal Confidentiality of Alcohol and Drug Abuse Patient Records regulations: The Federal rules restrict any use of the information to criminally investigate or prosecute any alcohol or drug abuse patient.[facility] [place] NorthIn the event this information is protected by the Federal Confidentiality of Alcohol and Drug Abuse Patient Records regulations: The Federal rules restrict any use of the information to criminally investigate or prosecute any alcohol or drug abuse patient.[facility] [place] NorthIn the event this information is protected by the Federal Confidentiality of Alcohol and Drug Abuse Patient Records regulations: The Federal rules restrict any use of the information to criminally investigate or prosecute any alcohol or drug abuse patient.[facility] [place] NorthIn the event this information is protected by the Federal Confidentiality of Alcohol and Drug Abuse Patient Records regulations: The Federal rules restrict any use of the information to criminally investigate or prosecute any alcohol or drug abuse patient.[facility] Reason for Visit (unrecogniz ed section and content) Reason Comments CoPat Start Reason Comments 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 , denies any pain/falls/injuries Follow Up R BKA sx date 3 , denies any pain/falls/injuries Post Op R BKA sx date 3 , denies any pain/falls/injuries Reason Comments Results Reason Comments CoPat Stop Reason Comments Opened In Error Reason Comments Appointment Reason Comments Results Treatment Planning Reason Comments Established Patient Follow Up Reason Comments MRSA Reason Comments Establish Care Reason Comments Results Reason Comments Yearly Exam Specialty Diagnoses / Procedures Referred By Contac t Referred To Contact Gynecology Diagnoses Screening for cervical cancer Procedures CONSULT TO GYNECOLOGY OFFICE/OUTPATIENT [facility] MDM 60-74 MINUTES Erica Herman MD [address] [place] [address] Referral ID Status Reason Start Date Expiration Date V isits Requested Visits Authorized [id number] Closed PCP Requested Referral Auto-Generated Referral 11/01/2022 11/01/2023 1 1 Reason Comments Follow Up 3 month Reason Comments Derm Problem wound on right leg a zoila where prosthetic rubbing x 4 days Reason Comments New Patient Specialty Diagnoses / Procedures Referred By Contac t Referred To Contact Cardiology Diagnoses Coronary artery calcification seen on CAT scan Procedures CONSULT TO CARDIOLOGY OFFICE/OUTPATIENT [facility] 60-74 MINUTES Naomy Bergman APRN.[employer] [address] [place] [address] Referral ID Status Reason Start Date Expiration Date V isits Requested Visits Authorized [id number] Closed PCP Requested Referral 12/10/2022 12/10/2023 1 1 Reason Comments disability paperwork Reason Comments Disability paperwork Reason Comments Established Patient Follow Up Diabetic Foot Care Reason Comments Patient Update Reason Comments Established Patient Denies any pain, sti ll has wound at incision site Follow Up Denies any pain, sti ll has wound at incision site Post Op Denies any pain, sti ll has wound at incision site Reason Comments Established Patient Follow Up Diabetic Foot Ulcer Reason Comments F/U 6 months Reason Comments Established Patient Follow Up Pain Post Op Reason Comments Radiology NM Specialty Diagnoses / Procedures Referred By Contac t Referred To Contact MOLECULAR & FUNCTIONAL IMAGING Diagnoses Coronary artery calcification seen on CAT scan Procedures NM CARDIAC PERF STRESS/PHARM MYOCARDIAL SPECT MULTIPLE STUDIES Yaakov Hayes MD [address], [address] [place] [address] Molecular & Functional Imaging [address] [id number] Referral ID Status Reason Start Date Expiration Date Visits Requested Visits Authorized [id number] Pending Peer to Peer Review [employer] chhaya Referral Patient Cleared - Admin/Chair man/Directo r advise to proceed or did not respond 08/05/2023 09/04/2023 3 3 Reason Comments Follow Up 3 month Reason Comments Follow Up Callus/toenail follow up Reason Comments Well Woman Reason Comments Stress Test Instructions Reason Comments Follow Up Callous Reason Comments Follow Up Reason Comments Established Patient Follow Up Ulcer Reason Comments Follow Up 6 month Reason Onset Date Comments Results 05/14/2024 Reason Comments Orders Reason Onset Date Comments Results 05/21/2024 Reason Onset Date Comments Results 05/29/2024 Reason Onset Date Comments Results 05/29/2024 Reason Comments Consult Anemia/positive FOBT Reason Comments Established Patient Diabetic Foot Care Follow Up Reason Comments Follow Up one year Reason Comments Established Patient Follow Up Diabetic Foot Care Diabetic Foot Ulcer Reason Onset Date Comments Refill Request 08/31/2024 Reason Comments Established Patient Follow Up Diabetic Foot Ulcer Reason Comments Medical Clearance Reason Onset Date Comments Results 10/28/2024 Reason Comments Medical Clearance Reason Comments Results Reason Comments New Patient Reason Comments [facility] requesting records FOR RECORDS PERTAINING TO PATIENTS WHO ARE OR HAVE BEEN ENROLLED IN A CHEMICAL DEPENDENCY/SUBSTANCEABUSE PROGRAM, SOME INFORMATION MAY BE OMITTED. This clinical summary was aggregated from multiple sources. Caution should be exercised in using it in the provision of clinical care. This summary normalizes information from multiple sources, and as a consequence, information in this document may materially change the coding, format and clinical context of patient data. In addition, data may be omitted in some cases. CLINICAL DECISIONS SHOULD BE BASED ON THE PRIMARY CLINICAL RECORDS. [employer] provides no warranty or guarantee of the accuracy or completeness of information in this document.
[2024-12-04] MEDS: Lactated Ringers 1,000 ML 15 ML IV (08:01)
--- NOTE | 2024-12-04 08:04 | PRE.ANES_ITS ---
ASA Classification* ASA Classification ASA Classification: 3 Assessment & Plan Anesthesia* Anesthesia Assessment Anesthesia Assessment: Discussed sedation and/or anesthesia options, risks, benefits, and alternatives with patient/parents/legal guardian/POA. Questions invited. The patient/parents/legal guardian/POA seems to understand and agrees to proceed with anesthesia plan. Reviewed the physical assessment, medical history, allergy history and patient home medications list prior to surgery/procedure/anesthetic and documented any changes. Performed airway and anesthesia risk assessments. Anesthesia Type Anesthesia Type: MAC Anesthesia Focused Assessment* Temperature: 98.7 F Pulse Rate: 89 Blood Pressure: 132/71 Respiratory Rate: 16 Pulse Ox: 100 Airway Assessment Mouth opens: >3 cm Mallampati Score: II Labs Anesthesia Preop lab: CBC WBC, (4.4-11.0) 9.2 K/mm3 07/25/24, 06:08 RBC, (4.2-5.4) 2.71 M/mm3 L 07/25/24, 06:08 Hgb, (12.0-15.0) 7.7 g/dL L 07/25/24, 06:08 Hct, (37-47) 23.6 % L 07/25/24, 06:08 Plt Count, (150-450) 315 K/mm3 07/25/24, 06:08 CHEMISTRY Potassium, (3.3-5.1) 4.4 mmol/L 08/26/24, 12:06 Sodium, (133-145) 133 mmol/L 08/26/24, 12:06 Magnesium, (1.5-2.2) 1.5 mg/dL 07/25/24, 06:08 Phosphorus, (2.7-4.5) 1.9 mg/dL L 07/25/24, 06:08 BUN, (4-19) 74 mg/dL H 08/26/24, 12:06 Creatinine, (0.70-1.20) 1.08 mg/dL 08/26/24, 12:06 Glucose, (70-99) 168 mg/dL H 08/26/24, 12:06 POC Glucose, (74-106) 250 mg/dL H 07/25/24, 11:13 TSH, (0.300-4.200) 1.100 uIU/mL 08/26/24, 12:06 COAG PT, (11.7-14.9) 16.3 SECONDS H 05/31/22, 01:36 Pre-Assessment Diagnosis/Proposed Procedure Planned Operative Procedure(s): INCISION OF THE BONE CORTEX OF THE LEFT FIFTH METATARSAL WITH DELAYED PRIMARY CLOSURE SKIN GRAFT SITE PREP Anesthesia History 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 When Was Last Pacemaker Check QUESTION #4 FULL TEXT: You/Your Family Experience fever (hyperthermia) with Anesthesia Last Oral Intake Last Oral intake: Last Oral Intake NPO since 23:00 12/04/24 07:51 Meds taken in AM with sips of water? 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 - cross tie tram loader: PONV - cross tie tram loader Female Yes 11/20/24 15:15 HX of Motion Sickness No 11/20/24 15:15 HX of N/V After Surgery No 11/20/24 15:15 Non-Smoker No 11/20/24 15:15 Duration of Surgery greater Yes 11/20/24 15:15 than 60 minutes Number of Risk Factors 2 11/20/24 15:15 PONV Score Moderate Risk 11/20/24 15:15 Height & Weight Height & Weight: Anesthesia: Height & Weight Height 4 ft 11 in 12/04/24 07:51 Weight: 42.184 kg 12/04/24 07:51 Body Mass Index (BMI) 18.8 12/04/24 07:51 Respiratory Assessment Respiratory Assessment - cross tie tram loader: Respiratory Tract Infection Hx - cross tie tram loader Hx Respiratory Tract Infection No 11/20/24 15:15 STOP Sleep Apnea STOP Sleep Apnea - cross tie tram loader: STOP Sleep Apnea - cross tie tram loader Hx Hypertension No 11/20/24 15:15 Hx Sleep Apnea No 11/20/24 15:15 CPAP No 07/27/24 11:37 BIPAP Do you snore loudly (louder No 11/20/24 15:15 than talking or can be heard Do you often feel tired/ No 11/20/24 15:15 fatigued/ sleepy during daytime? Has anyone observed you stop No 11/20/24 15:15 breathing during sleep? STOP Results Negative 11/20/24 15:15 QUESTION #5 FULL TEXT : Do you snore loudly (louder than talking or can be heard through closed doors)? 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 Specify any problems Hx of Preganancy in last 3 No 11/20/24 15:15 Months Nurse Filling Out Transfusion DSCHRIBER 11/20/24 15:15 & Questions: Date: 11/20/24 11/20/24 15:15 Time: 15:18 11/20/24 15:15 Patient unable to answer at this time (ie. confused, unrespo /Reproduction History /Reproductive History - cross tie tram loader: /Reproductive Hx- cross tie tram loader Hx Now No 11/20/24 15:15 Gestational Age (in weeks): EDC: Hx Hx Para Hx Section SAB No 11/20/24 15:15 Active Medications Active Medications: Current Medications Generic Name Dose Route Start Last Admin Trade Name Freq PRN Reason Stop Dose Admin Cefazolin Sodium 2 gm/ Sodium 110 mls @ 200 mls/hr 12/04/24 09:00 Chloride IV 12/04/24 09:32 INTRAOP ONE Lactated Ringer's 1,000 mls @ 15 mls/hr 12/04/24 07:45 12/04/24 08:01 IV 15 mls/hr .Q48H RUBIN Administration PFSH Medical History Wears glasses Insulin dependent diabetes mellitus Ambulates with cane Low iron High cholesterol Dietary restriction Heartburn Cardiology follow-up encounter History of stress test MRSA (methicillin resistant staph aureus) culture positive Smoker Cellulitis and abscess of right lower extremity Sinus tachycardia seen on front desk monitor Below knee amputation Home Medications Medication Instructions Recorded Last Taken Type albuterol sulfate 90 mcg/actuation 2 puff inhalation Q 4H PRN Sob &/Or 10/01/18 Unknown History aerosol inhaler Wheezing atorvastatin 40 mg tablet 40 mg PO QHS cholesterol 03/0912/03/24 History cholecalciferol (vitamin D3) 25 25 mcg PO DAILY supple ment 02/26/23 12/03/24 History mcg (1,000 unit) tablet blood-glucose meter (True Metrix #1 ea 08/19/23 Unknow n Rx Glucose Meter) lisinopril 10 mg tablet 10 mg PO DAILY #30 tabs 07/1612/03/24 Rx blood-glucose sensor (Dexcom G7 #3 ea 08/06/24 Unknown Rx Sensor device) pen needle, diabetic 31 gauge x #100 ea 08/28/24 Unkno wn Rx 03/21" (1st Tier Unifine Pentips) True Metrix Glucose Test Strip #50 ea 11/04/24 Unknown Rx (blood sugar diagnostic) ferrous sulfate 325 mg (65 mg 325 mg PO BID supplement 11/04/24 12/03/24 History iron) tablet (FeroSul) aspirin 81 mg tablet,delayed 81 mg PO DAILY 11/20/24 0 12/03/24 History release (Adult Aspirin Regimen) blood-glucose sensor (FreeStyle #2 ea 11/20/24 Unknown Rx Tova 3 Plus Sensor device) blood-glucose,employee relations specialist,cont #1 ea 11/20/24 Unknown Rx (FreeStyle Tova 3 [place]) calcium carbonate 600 mg PO DAILY 11/20/24 History insulin glargine 100 unit/mL (3 8 unit subcut DAILY 12/03/24 History mL) subcutaneous pen (Lantus Solostar U-100 Insulin) insulin lispro 100 unit/mL 6 unit subcut BID 11/20/24 Unknown History subcutaneous pen (Humalog KwikPen (U-100) Insulin) insulin lispro 100 unit/mL 8 unit subcut 1500 11/20/24 12/03/24 History subcutaneous pen (Humalog KwikPen (U-100) Insulin) loperamide 2 mg capsule 2 mg PO Q8 PRN loose stool 0 11/20/24 Unknown History Allergy/AdvReac Type Severity Reaction Status Date / Time No Known Allergies Allergy Verified 12/04/24 07:48 Family History Grandmother Breast cancer Father Heart disease Hypertension Sister Thyroid disorder Aunt Thyroid disorder Other Arthritis CVA (cerebral vascular accident) Kidney disease Myocardial infarction Surgical History Hx of right cataract extraction Hx of left cataract extraction Hx of colonoscopy History of appendectomy Status post below knee amputation of right lower extremity history EGD with dilatation H/O thumb surgery Social History household members: family Smoking Status: Heavy Smoker (>10/day) alcohol intake: never substance use type: does not use what type of physical activity do you participate in: walking Review of Systems (Anesthesia) ROS Narrative System reviewed and no additional complaints, except as documented.
--- NOTE | 2024-12-04 08:45 | PCM.OPRPT ---
Operative Report (Standard) Operative Information Date of Procedure: 12/04/24 Pre-Operative Diagnosis: 1. Full-thickness wound down to bone, left foot 2. Diabetes mellitus type 2 with foot ulcer 3. Diabetes type 2 peripheral neuropathy Post-Operative Diagnosis: Same as preoperative diagnosis Surgery/Procedure Performed: Procedure #1: Incision of bone cortex, fifth metatarsal, left foot Procedure #2: Delayed primary closure full-thickness wound, left foot facsimile operator: Yes Manager [employer] Sales: Manjit Singh PGY1 Tasks completed by international first officer: Retracting Additional printer floor covering assistant?: No Type of Anesthesia: General and Local RN Documented Start/Stop Times: Operation Date: 12/04/24 09:00 Case Time Into Pre-Op 12/04/24 07:34 Out of Pre-Op 12/04/24 08:56 Anesthesia Start 12/04/24 08:58 Into Room 12/04/24 08:58 Procedure Start 12/04/24 09:15 Procedure End 12/04/24 09:48 Anesthesia End 12/04/24 09:54 Out of Room 12/04/24 09:54 Procedure Start Time: 09:15 Procedure Stop Time: 09:48 Select all DRAINS/GRAFTS/IMPLANTS that apply: Graft Graft details: 1000 mg Axiofill Special Medications: For anesthesia Estimated Blood Loss: 25 cc Fluids Replaced: Per anesthesia Specimen collected: Yes Description of specimen(s) removed: Left foot fifth metatarsal after microbiology, half to pathology Description of surgery: Indications For Operation: Mrs. Jerry is a 59-year-old diabetic female who was admitted to [facility] for left foot surgery due to concerns for osteomyelitis to the head of the fifth metatarsal left foot. Patient is well-known to me from the wound care center and has failed multiple outpatient debridements to the full-thickness wound to the left foot. Patient does have history of uncontrolled diabetes with below-knee amputation to the right lower extremity. After delayed healing with outpatient debridements as well as oral antibiotics I educated the patient the need to move forward with surgical intervention. The patient has hesitated when we initially had this discussion and noticed continued breakdown of skin to the level of the wound as well as softening of the head of the fifth metatarsal left foot while in the wound care center. Further discussion went on and the patient priorly understood the need and the importance for surgical intervention. Chart reviewed consent signed. Due to worsening full-thickness wound with concern of underlying osteomyelitis it was deemed necessary at this time to take patient to operating room to perform the above procedure to help heal her wound and get her ambulating comfortably without resulting from additional amputation to the left lower extremity. The nature of the problem, anticipated procedures, postop recovery/convalences and risk/complications include but not limited to infection, wound healing complications, digital amputation, hypertrophic scarring, numbness, tingling, chronic pain, CRPS, over and under correction, recurrence of deformity, DVT and or PE and the need for further surgery have been discussed in great detail with the patient. All questions have been answered to the patient's satisfaction. There are no guarantees given as to the outcome of the procedure. Description of Procedure: Under mild sedation, the patient was brought into the operating room and placed on the operating table in supine position. Once the patient was under general anesthesia with [place] mask airway, the left lower extremity was blocked using approximately 10 cc 0.5% Marcaine plain. Next, a well-padded calf tourniquet was applied to the left lower extremity. Next, the left lower extremity was prepped and draped in normal aseptic manner. Next, a timeout was then undertaken verifying the correct patient, extremity, visibility of preoperative markings, availability of the equipment. Next, attention was directed to the left lower extremity. Using a 4 Esmarch, left lower extremity was exsanguinated and elevated to 60 degrees for 1 minute. Procedure #1: Incision of bone cortex, fifth metatarsal, left foot (CPT code: 08763) Next, attention was directed to the level of the full-thickness wound at the fifth metatarsal head. Excisional debridement down to including subcutaneous tissue, fascia muscle and bone was performed without incident. After all necrotic tissue was removed there showed evidence of destruction of bone with softening of the fifth metatarsal head and base of the proximal phalanx of the fifth digit left foot. Next using a #15 blade a full-thickness incision was carried down to the level of the incision allow the equidistant spacing across the fifth metatarsal of the left foot. Continued blunt dissection was carried down to the level of bone. Once the fifth metatarsal head and diaphysis were identified continue sharp dissection with a #15 blade was carried down around the fifth metatarsal. Using a sagittal saw and #114 blade with incision of bone cortex being performed at the proximal shaft of the diaphysis followed by sharp dissection to remove the distal part of the fifth metatarsal left foot. The fifth metatarsal head that was removed was in half with half going to microbiology for culture and sensitivity and the other half going to pathology for gross identification. Next, continue sharp dissection is carried down and around the base of the remaining proximal phalanx which was soft in nature. The complete proximal phalanx of the fifth digit was removed and passed the back table to be in half or half going to microbiology for culture and sensitivity under half going to pathology for gross identification. The incision was flushed with copious normal saline. At this time the left calf tourniquet was deflated and reperfusion was noted instantly to left lower extremity with all bleeders being cauterized and ligated as necessary. Using the electrocautery the osteotomy section of the remaining fifth metatarsal base was cauterized to prevent bleeding and hematoma formation. Next 1000 mg of axiofill was prepared with a small amount of normal saline to make a malleable slurry which was placed into the space of the incision of bone cortex site along the fifth metatarsal and proximal phalanx of the fifth digit left foot. The deep and subcutaneous layer was reapproximated closed using 3-0 Vicryl and running suture technique. The skin was reapproximated and closed with 4-0 nylon in simple erupted suture technique. Procedure #2: Delayed primary closure full-thickness wound, left foot (CPT code: 57573) Next, attention was directed to the full-thickness wound to the plantar aspect of the left foot. After debridement that was performed earlier the full-thickness wound was closed with delayed primary closure using 4-0 nylon in simple rapid suture technique. The left lower extremities were cleaned and patted dry. Betadine soaked Adaptic was applied to the incision followed by dry sterile dressing and single-layer Polanco compression bandage was donned to left lower extremity. Surgical shoe was applied in PACU. The patient tolerated the procedure and anesthesia well and apparent satisfactory condition and was transported to the PACU for further monitoring prior to discharge home. Vital signs stable and vascular status intact to all digits bilateral. Post Operative Plan: Weightbearing: Partial weightbearing to left heel with surgical shoe and assistance of crutches and/or walker. Full weightbearing to right lower extremity with prosthesis. Antibiotics: 2 g Ancef through the IV DVT Prophylaxis: 81 mg aspirin Peguero: None Dressing: Betadine soaked Adaptic dry sterile dressing single-layer Polanco compression bandage surgical shoe. X-Rays: Post-operative films taken on the operating room. Pain Medication: Percocet 5/325 Follow-up: Patient will follow-up at the wound care center next Saturday for dressing change and evaluation. Surgical Findings: Evidence of bone destruction to the head of the fifth metatarsal and base of the proximal phalanx left fifth digit. There is concern for osteomyelitis. All bone infection was passed the back table and in half for half going to microbiology for culture and sensitivity and will have to pathology for gross identification. Will plan for either oral versus IV antibiotics if there is delayed healing with infectious disease recommendation. Complications Complications: No Admit VTE Documentation VTE Present on Admission: No VTE Mechan Device Prophylaxis: SCD's VTE Pharm Prophylaxis ordered?: Yes
--- NOTE | 2024-12-04 08:46 | RAD_ITS ---
PROCEDURE: FOOT 2 VIEWS; O.R. FLUORO FOR C-ARM 12/04/2024 REASON FOR EXAM: GENERAL. TECHNIQUE: Procedure Code: RADFO2; RADORFL_C_ARM Modality: DX Procedure: FOOT 2 VIEWS; O.R. FLUORO FOR C-ARM Laterality: Left. Fluoroscopy time: 14 seconds. Dose: 0.0788 mGy. COMPARISON: None. RAD/O.R. Fluoro for C-Arm IMPRESSION: Intraoperative fluoroscopy was performed for surgery of the left 5th ray. A so litary fluoroscopic image is presented, as well. Reading Location: -[id number]
--- NOTE | 2024-12-04 08:46 | RAD_ITS ---
PROCEDURE: FOOT 2 VIEWS; O.R. FLUORO FOR C-ARM 12/04/2024 REASON FOR EXAM: GENERAL. TECHNIQUE: Procedure Code: RADFO2; RADORFL_C_ARM Modality: DX Procedure: FOOT 2 VIEWS; O.R. FLUORO FOR C-ARM Laterality: Left. Fluoroscopy time: 14 seconds. Dose: 0.0788 mGy. COMPARISON: None. RAD/Foot 2 Views IMPRESSION: Intraoperative fluoroscopy was performed for surgery of the left 5th ray. A so litary fluoroscopic image is presented, as well. Reading [id number]
--- NOTE | 2024-12-04 09:00 | BON_PTH ---
PATIENT: SANJUANITA BECERRA LOC: [facility] U#:[id number] AGE/SX: 59/F ROOM: RE12/04/[address]: Dr. Andriy Otoole DPM : 1965 BED: DIS: 12/04/2024 SPEC #: [id number] RECD: 12/04/24 10:01 STATUS: JONA REQ #: [id number] MONIQUE: 12/04/24 09:[address]: Andriy Otoole DEPT: SURGICAL PATHOLOGY RECD BY: Dashawn Worthy ENTERED: 12/04/24 12:41 SP TYPE: Bone OT DR: Dr. Art Herman MD Tissues: A - Foot, NOS Procedures: Decalcification bone/plaque Surgery Specimen Level IV HEADER OPERATION: Incision of bone cortex of the left 5th metatarsal PRE-OP DIAGNOSIS: Full-thickness wound down to bone, left foot, diabetes mellitus type 2 with foot ulcer, diabetes type 2 peripheral neuropathy TISSUE SUBMITTED: A- Incision bone cortex 5th metatarsal left foot MICROSCOPIC DIAGNOSIS A. Bone, cortex, left fifth metatarsal, incisional biopsy: * Osteomyelitis. MICROSCOPIC DESCRIPTION Slides are reviewed. GROSS DESCRIPTION A. Received in formalin labeled with the patient's name and date of . Designated as " incision bone cortex 5th metatarsal left foot" are 2 mcnamara-white bone fragments with attached measuring 2.0 x 0.5 x 0.5 cm in aggregate. Entirely submitted in 1 cassette, following decalcification. SD 12/04/2024 CPT:[id number]
[2024-12-04] MEDS: Lactated Ringers 1,000 ML 1000 ML IV (09:01)
[2024-12-04] MEDS: Cefazolin 1 GM/5 ML Vial 2 GM IV (09:05)
[2024-12-04] MEDS: fentaNYL 100 MCG/2 ML Ampul 25 MCG IV (09:07)
[2024-12-04] MEDS: Lidocaine 1% (5 ml sdv) 5 ML Vial 6 ML IV (09:07)
--- NOTE | 2024-12-04 10:01 | PCM.POST.ANE ---
Anesthesia: Postop Eval I Current Vital Signs Temperature: 97.3 F Pulse Rate: 82 Blood Pressure: 153/76 Respiratory Rate: 16 Pulse Ox: 99 Oxygen Delivery Method: Room Air Assessment Airway patent: Yes Spontaneous unlabored respirations: Yes Mental status: Awake nausea: No Vomiting: No Anesthesia Complication: No Fluid Hydration Crystalloid volume administer (ml): 1,000 Total IV fluid infused: 1,000 Progress Note Anesthesia document: Postop Eval 1 completed: Yes
--- NOTE | 2024-12-04 13:12 | POSTOPAN2_ITS ---
Anesthesia Postop Eval I Sum Postop Eval Completion status Anesthesia document: Postop Eval 1 completed: Yes Anesthesia Postop Eval I Summary Anesthesia Postop Eval I Summary: Anesthesia Postop Eval I: Assessment Summary Airway patent Yes 12/04/24 10:02 BLENDING COORDINATOR.APAT Spontaneous unlabored Yes 12/04/24 10:02 BLENDING COORDINATOR.APAT respirations Mental status Awake 12/04/24 10:02 BLENDING COORDINATOR.APAT nausea No 12/04/24 10:02 BLENDING COORDINATOR.APAT Vomiting No 12/04/24 10:02 BLENDING COORDINATOR.APAT Anesthesia Postop Eval I: Fluid Summary Crystalloid volume administer 1,000 12/04/24 10:02 BLENDING COORDINATOR.APAT (ml) Colloids volume administered ( ml) Blood Product volume administered (ml) Total IV fluid infused 1,000 12/04/24 10:02 BLENDING COORDINATOR.APAT Anesthesia Postop Eval I: Summary Notes Anesthesia Complication No 12/04/24 10:02 BLENDING COORDINATOR.APAT Anesthesia Complication Comment: Post-operative progress note Anesthesia: Postop Eval II Evaluation Mental status: Awake Pain Level: 0 nausea: No Vomiting: No
--- NOTE | 2024-12-04 13:12 | PCM.POSTANE2 ---
Anesthesia Postop Eval I Sum Postop Eval Completion status Anesthesia document: Postop Eval 1 completed: Yes Anesthesia Postop Eval I Summary Anesthesia Postop Eval I Summary: Anesthesia Postop Eval I: Assessment Summary Airway patent Yes 12/04/24 10:02 RADIATION PROTECTION TECHNICIAN.APAT Spontaneous unlabored Yes 12/04/24 10:02 RADIATION PROTECTION TECHNICIAN.APAT respirations Mental status Awake 12/04/24 10:02 RADIATION PROTECTION TECHNICIAN.APAT nausea No 12/04/24 10:02 RADIATION PROTECTION TECHNICIAN.APAT Vomiting No 12/04/24 10:02 RADIATION PROTECTION TECHNICIAN.APAT Anesthesia Postop Eval I: Fluid Summary Crystalloid volume administer 1,000 12/04/24 10:02 RADIATION PROTECTION TECHNICIAN.APAT (ml) Colloids volume administered ( ml) Blood Product volume administered (ml) Total IV fluid infused 1,000 12/04/24 10:02 RADIATION PROTECTION TECHNICIAN.APAT Anesthesia Postop Eval I: Summary Notes Anesthesia Complication No 12/04/24 10:02 RADIATION PROTECTION TECHNICIAN.APAT Anesthesia Complication Comment: Post-operative progress note Anesthesia: Postop Eval II Evaluation Mental status: Awake Pain Level: 0 nausea: No Vomiting: No
== END 2024-12-04 11:27 | disposition home or self-care (01) ==
LOC: SDC 07:33 → AC 07:33
PROVIDERS: PCP Family Medicine; Referring Provider Podiatrist Foot & Ankle Surgery; Visit Provider Podiatrist Foot & Ankle Surgery
PROC: (CPT 28005; principal; 2024-12-04 08:45)
DX: E11.621 Type 2 diabetes mellitus with foot ulcer (principal); L97.522 Non-pressure chronic ulcer of other part of left foot with fat layer exposed; M86.9 Osteomyelitis, unspecified; E11.42 Type 2 diabetes mellitus with diabetic polyneuropathy; E11.69 Type 2 diabetes mellitus with other specified complication; E11.51 Type 2 diabetes mellitus with diabetic peripheral angiopathy without gangrene; D64.9 Anemia, unspecified; F17.210 Nicotine dependence, cigarettes, uncomplicated
CPT/HCPCS: 28005; 13160; 01480; 73620; 76000; 82962; 87015; 87070; 87075; 87077; 87102; 87116; 87186; 87205; 87206; 88305; 88307; 88311; J2405

== ENCOUNTER 2024-12-09 13:30 | Outpatient (RCR) | payer MEDICARE, MEDICAID, SELFPAY ==
[2024-11-18 13:38] VITALS: BP 103/57; PULSE 106; RESP 16; TEMP 36.2
--- NOTE | 2024-11-18 15:21 | PN.PCM_ITS ---
History of Present Illness Date of Service: 11/18/24 Chief Complaint: R BKA stump wound History of Wound: Arianna Jerry is a 57 y/o female who presents to the wound healing center today for management of a right BKA stump wound. She is accompanied to the appointment today by her daughter who helps to supplement her history and also helps with her wound care. 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 At that time, they explored and washed out proximally in her thigh as well. Subsequently she initially had wound vac placed prior to secondary closure. She reports that the amputation site did ultimately heal fully and she was able to obtain a prosthetic. She had been doing very well with her prosthetic and getting back to work etc. Unfortunately about 1-2 months ago she developed a wound on her amputation stump due to the prosthetic rubbing in this area. She presented to the [facility] ER on 02/26/23 with concern of infection. She was admitted from 02/26-03/01 for IV antibiotics. Wound cultures were positive for staph aureus, blood cultures were negative. She was evaluated by orthopedics at that time as well. XR and CT scan performed during that admission were negative for signs of osteomyelitis. She was discharged with a course of Bactrim and referral here. At home, they have been doing daily dressing changes with iodoform and dry gauze dressing. Her daughter reports it has made significant improvement since her hospital stay. Progress of Wound: Full-thickness wound with concern for osteomyelitis left fifth metatarsal head surgical intervention planned Subjective Subjective Patient is a 59-year-old diabetic female with history below-knee amputation of the right lower extremity presenting back to the wound care center for full- thickness wound to the plantar lateral aspect of the left fifth metatarsal head. The patient has been doing dressing changes with Betadine paint dry sterile dressing and compression wrap. Her blood sugars well-controlled. She is ready to move forward with surgical intervention which is already planned. She denies constitutional symptoms. No other pedal complaints at this time. Objective Data Objective Data Vital Signs: Vital Signs Temp Pulse Resp BP 97.1 F L 106 H 16 103/57 L 11/18/24 13:38 11/18/24 13:38 11/18/24 13:38 11/18/24 13:38 Lab / Micro Data Micro: Microbiology 10/08/24 10:25 Wound - Left Foot Gram Stain - Final 10/08/24 10:25 Wound - Left Foot Wound Culture - Final Meth. resistant Staph. aureus Streptococcus agalactiae (B) Physical Exam Narrative Vascular: DP and PT pulses are palpable to the left lower extremity. CFT is brisk. Skin temperature gradient is warm to warm from proximal ankles to distal digits of the left lower extremity. No increase in focal warmth or erythema is appreciated to the left lower extremity. Blanchable erythema to the periwound, improving. Neurological: Light touch is intact. Protective sensation is diminished. Dermatological: Evidence of full-thickness wound appreciated the subfifth metatarsal head measuring 1.5 x 1.4 x 0.8 cm. Positive probe to bone. Blanchable erythema to the periwound, improving. Excisional debridement down to including subcutaneous tissue, fascia and muscle and bone with a number 3 mm dermal curette to the left subfifth metatarsal head ulceration without incident. Predebridement measurement was 1.3 x 1.2 x 0.4 cm. Postdebridement measurement is 1.5 x 1.4 x 0.8 cm. Musculoskeletal: No pain on palpation to full-thickness wound left foot. No pain with calf compression. Debridement Note Debridement Note Debridement Free Text: Excisional debridement down to including subcutaneous tissue, fascia and muscle and bone with a number 3 mm dermal curette to the left subfifth metatarsal head ulceration without incident. Predebridement measurement was 1.3 x 1.2 x 0.4 cm. Postdebridement measurement is 1.5 x 1.4 x 0.8 cm. 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 Any new allergies or adverse reactions No Had a fall/change in ADL's that may No increase risk of falls Signs or symptoms of abuse and/or No neglect since last visit Have you been in the hospital since your No last visit? Has dressing in place as prescribed Yes Has compression in place as prescribed N/A Has offloadiing in place as prescribed Yes Experienced any changes in pain level or No management Pain Scale: 0-10 Numeric Is Patient Pain Free? Yes - Nurse 1 - General Ulcer Measurement Start: 11/18/24 13:37 Freq: Status: Active Protocol: Activity Type Activity Date Activity User E-sign Co-sign Detail Recorded Client Recorded Date Recorded By Document 11/18/24 13:38 DL [id number] 11/18/24 13:47 DL 11/18/24 13:38 Wound Center Nurse 1 #3 LT LAT FT -Current Size (cm) - Length 2 -Current Size (cm) - Width 1.8 -Current Size (cm) - Depth 0.6 -Total Square Cm 3.6 -Exudate Amt Medium -Exudate Type Serosanguineous -Granulation Amt None Present (0 %) -Necrosis Amt Large (67-100%) -Necrotic Tissue Type Adherent Slough -Structure Exposed N/A -Texture (Edwina-wound Skin Appearance) Scarring -Moisture (Edwina-wound Skin Appearance) Maceration -Color (Edwina-wound Skin Appearance) No Abnormality -Temperature (Edwina-wound Skin No Abnormality Appearance) (Pt Warm) -Tenderness on Palpation (Edwina-wound No Skin Appearance) -Ulcer Cleansing Soap and Water -Foul Odor after Cleansing No -Anesthetic Used 5% Lidocaine Gel SUE - Nurse 2 - General Ulcer CM Notes Start: 11/18/24 13:37 Freq: Status: Active Protocol: Activity Type Activity Date Activity User E-sign Co-sign Detail Recorded Client Recorded Date Recorded By Document 11/18/24 14:05 ALICIA [id number] 11/18/24 14:07 ALICIA 11/18/24 14:05 Wound Center Nurse 2 -Time 14:05 -Correct Patient Yes -Correct Side, Site, Position Yes -Correct Procedure Yes -Procedure Performed Yes -Type of Procedure Debridement -Clinical Debridement Bone -Tissue Removed Non-viable tissue -Post Debridement (cm) - Length 1.5 -Post Debridement (cm) - Width 1.4 -Post Debridement (cm) - Depth 0.8 -Total Square (Post) (cm) 2.10 -Area of Debridement (cm) - Length 1.5 -Area of Debridement (cm) - Width 1.4 -Total Square (Area) (cm) 2.10 -Tunneling No -Undermining/Tunneling No -Circular Undermining No -Wound/Ulcer Outcome Not Healed -Ulcer Cleansing Rinsed/ Irrigated with Saline -Foul Odor after Cleansing No -Bioengineered Tissue No -Bleeding Controlled with Pressure -Treatment Response Procedure Tolerated Well -Offloading Yes -Type of Offloading Surgical Shoe -Debridement - Bone, 1st 20sq cm Yes Pain Scale: 0-10 Numeric Is Patient Pain Free? Yes - Nurse 3 - General Ulcer D/C NN Start: 11/18/24 13:37 Freq: Status: Active Protocol: Activity Type Activity Date Activity User E-sign Co-sign Detail Recorded Client Recorded Date Recorded By Document 11/18/24 14:23 [facility] [id number] 11/18/24 14:23 [facility] 11/18/24 14:23 Wound Care Center Nurse 3 #3 LT LAT FT -Ulcer Cleansing Rinsed/ Irrigated with Saline -Foul Odor after Cleansing No -Other Dressing BETADINE -Primary Dressing Covered/Secured with Dry Gauze & Roll Gauze, Secured with Tape Treatment Response Procedure Tolerated Well Pain Scale: 0-10 Numeric Is Patient Pain Free? Yes WC - Visit Discharge Discharge Condition Stable Ambulatory Status Ambulatory,Cane Transportation Private Auto Accompanied by DAUGHTER Assessment/Plan Assessment/Plan (1) Non-pressure chronic ulcer of other part of left foot with necrosis of bone: CODE(S): L97.524 - Non-pressure chronic ulcer of other part of left foot with necrosis of bone PLAN: Patient was examined and evaluated. All findings were discussed with the patient. All questions were answered to the patient's satisfaction. Excisional debridement down to including subcutaneous tissue, fascia and muscle and bone with a number 3 mm dermal curette to the left subfifth metatarsal head ulceration without incident. Predebridement measurement was 1.3 x 1.2 x 0.4 cm. Postdebridement measurement is 1.5 x 1.4 x 0.8 cm. Review of the patient's microbiology culture sensitivities show evidence of group B strep with MRSA growth. Patient will continue her antibiotic until gone as it is sensitive to the bacteria. The left foot was wiped clean and patted dry. The full-thickness wound was dressed with Betadine soaked gauze dry sterile dressing and light compression wrap. Patient will change daily. Will plan for surgical intervention in [facility] as an outpatient on 12/04/2024. Patient will continue strict blood sugar control. Patient will follow-up in Dr. Otoole in 1 week (2) Chronic painful diabetic polyneuropathy: CODE(S): E11.42 - Type 2 diabetes mellitus with diabetic polyneuropathy
[2024-12-02 13:18] VITALS: BP 106/64; PULSE 98; RESP 18; TEMP 36.3
--- NOTE | 2024-12-02 14:55 | PN.PCM_ITS ---
History of Present Illness Date of Service: 12/02/24 Chief Complaint: R BKA stump wound History of Wound: Arianna Jerry is a 57 y/o female who presents to the wound healing center today for management of a right BKA stump wound. She is accompanied to the appointment today by her daughter who helps to supplement her history and also helps with her wound care. 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 At that time, they explored and washed out proximally in her thigh as well. Subsequently she initially had wound vac placed prior to secondary closure. She reports that the amputation site did ultimately heal fully and she was able to obtain a prosthetic. She had been doing very well with her prosthetic and getting back to work etc. Unfortunately about 1-2 months ago she developed a wound on her amputation stump due to the prosthetic rubbing in this area. She presented to the [facility] ER on 02/26/23 with concern of infection. She was admitted from 02/26-03/01 for IV antibiotics. Wound cultures were positive for staph aureus, blood cultures were negative. She was evaluated by orthopedics at that time as well. XR and CT scan performed during that admission were negative for signs of osteomyelitis. She was discharged with a course of Bactrim and referral here. At home, they have been doing daily dressing changes with iodoform and dry gauze dressing. Her daughter reports it has made significant improvement since her hospital stay. Progress of Wound: Full-thickness wound with concern for osteomyelitis left fifth metatarsal head surgical intervention planned Subjective Subjective Patient is a 59-year-old diabetic female presenting to wound care center today follow-up evaluation of full-thickness wound to the lateral fifth metatarsal head left foot. 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 Blood sugars well-controlled. She continues to smoke. She denies trauma. She is doing dressing changes as discussed. Denies constitutional symptoms. No other pedal complaints at this time. Objective Data Objective Data Vital Signs: Vital Signs Temp Pulse Resp BP O2 Del Method 97.4 F L 98 18 106/64 Room Air 12/02/24 13:18 12/02/24 13:18 12/02/24 13:18 12/02/24 13:18 12/02/24 13:18 Oxygen Delivery Method Room Air Lab / Micro Data Micro: Microbiology 10/08/24 10:25 Wound - Left Foot Gram Stain - Final 10/08/24 10:25 Wound - Left Foot Wound Culture - Final Meth. resistant Staph. aureus Streptococcus agalactiae (B) Physical Exam Narrative Vascular: DP and PT pulses are palpable to the left lower extremity. CFT is brisk. Skin temperature gradient is warm to warm from proximal ankles to distal digits of the left lower extremity. No increase in focal warmth or erythema is appreciated to the left lower extremity. Blanchable erythema to the periwound, improving. Neurological: Light touch is intact. Protective sensation is diminished. Dermatological: Evidence of full-thickness wound appreciated the subfifth metatarsal head measuring 1.8 x 1.2 x 1.0 cm. Positive probe to bone. Blanchable erythema to the periwound, improving. Excisional debridement down to including subcutaneous tissue, fascia and muscle and bone with a number 3 mm dermal curette to the left subfifth metatarsal head ulceration without incident. Predebridement measurement was 1.5 x 1.0 x 0.6 cm. Postdebridement measurement is 1.8 x 1.2 x 1.0 cm. Musculoskeletal: No pain on palpation to full-thickness wound left foot. No pain with calf compression. Debridement Note Debridement Note Debridement Free Text: Excisional debridement down to including subcutaneous tissue, fascia and muscle and bone with a number 3 mm dermal curette to the left subfifth metatarsal head ulceration without incident. Predebridement measurement was 1.5 x 1.0 x 0.6 cm. Postdebridement measurement is 1.8 x 1.2 x 1.0 cm. Post-Debridement Measurements and Additional Note: Post-Debridement Measurements/Treatment - Nurse 1 - General Ulcer Assessment Start: 11/18/24 13:37 Freq: Status: Active Protocol: APRIL Activity Type Activity Date Activity User E-sign Co-sign Detail Recorded Client Recorded Date Recorded By Document 11/18/24 13:38 DL [id number] 11/18/24 13:47 DL Document 12/02/24 13:18 KW [id number] 12/02/24 13:31 KW 11/18/24 12/02/24 13:38 13:18 - Today's Visit Information Type of service Follow-up Visit Follow-up Visit (Physician/AUTOMATION MACHINE OPERATOR (Physician/AUTOMATION MACHINE OPERATOR ) ) Arrival Mode Ambulatory,Cane Ambulatory,Cane Transfer Assistance None Accompanied by daughter Patient Identification Verified (Name & Yes Yes ) Patient Requires Transmission-Based No Precautions Vital Signs Temperature (97.8 F-99.1 F) 97.1 F L 97.4 F L Temperature Source Temporal Temporal Pulse Rate (60-100) 106 H 98 Pulse Location Monitor Monitor Respiratory Rate (12-18) 16 18 Respiratory rate source Observation Observation Oxygen Delivery Method Room Air Blood Pressure (90/60-120/80) 103/57 L 106/64 Blood Pressure Mean (mm Hg) 72 78 Source Monitor Monitor Position Semi-Fowlers Blood Pressure Location Left Arm History Since Last Visit- (Skip if this is Patient's initial visit) Have you changed medications since your No No last visit? Any new allergies or adverse reactions No No Had a fall/change in ADL's that may No No increase risk of falls Signs or symptoms of abuse and/or No No neglect since last visit Have you been in the hospital since your No No last visit? Has dressing in place as prescribed Yes Yes Has compression in place as prescribed N/A Yes Has offloadiing in place as prescribed Yes Yes Experienced any changes in pain level or No No management Left Footwear Surgical Shoe with pressure relief insole Right Footwear Regular Shoe Pain Scale: 0-10 Numeric Is Patient Pain Free? Yes Yes WC - Nurse 1 - General Ulcer Measurement Start: 11/18/24 13:37 Freq: Status: Active Protocol: Activity Type Activity Date Activity User E-sign Co-sign Detail Recorded Client Recorded Date Recorded By Document 11/18/24 13:38 DL [id number] 11/18/24 13:47 DL Document 12/02/24 13:18 KW [id number] 12/02/24 13:31 KW 11/18/24 12/02/24 13:38 13:18 Wound Center Nurse 1 #3 LT LAT FT -Current Size (cm) - Length 2 1.5 -Current Size (cm) - Width 1.8 1.3 -Current Size (cm) - Depth 0.6 1 -Total Square Cm 3.6 1.95 -Date of Last Picture (Recall this 12/02/24 field) -Tunneling Yes -Tunneling Position (O'clock) 2 -Tunneling Distance (cm) 1.5 -Exudate Amt Medium -Exudate Type Serosanguineous -Granulation Amt None Present (0 Small (1-33%) %) -Granulation Quality [place] -Necrosis Amt Large (67-100%) Large (67-100%) -Necrotic Tissue Type Adherent Slough Adherent Slough -Structure Exposed N/A -Texture (Edwina-wound Skin Appearance) Scarring Assessed -Moisture (Edwina-wound Skin Appearance) Maceration Assessed -Color (Edwina-wound Skin Appearance) No Abnormality Assessed, Erythema -Temperature ([place]wina-wound Skin No Abnormality No Abnormality Appearance) (Pt Warm) (Pt Warm) -Tenderness on Palpation (Edwina-wound No No Skin Appearance) -Ulcer Cleansing Soap and Water Soap and Water -Foul Odor after Cleansing No No -Anesthetic Used 5% Lidocaine 5% Lidocaine Gel Gel WC - Nurse 2 - General Ulcer CM Notes Start: 11/18/24 13:37 Freq: Status: Active Protocol: Activity Type Activity Date Activity User E-sign Co-sign Detail Recorded Client Recorded Date Recorded By Document 11/18/24 14:05 [id number] 11/18/24 14:07 Document 12/02/24 13:46 [id number] 12/02/24 13:51 11/18/24 12/02/24 14:05 13:46 Wound Center Nurse 2 #3 LT LAT FT -Time 14:05 13:48 -Correct Patient Yes Yes -Correct Side, Site, Position Yes Yes -Correct Procedure Yes Yes -Procedure Performed Yes Yes -Type of Procedure Debridement Debridement -Clinical Debridement Bone Bone -Tissue Removed Non-viable Non-viable tissue tissue -Post Debridement (cm) - Length 1.5 1.8 -Post Debridement (cm) - Width 1.4 1.2 -Post Debridement (cm) - Depth 0.8 1.0 -Total Square (Post) (cm) 2.10 2.16 -Area of Debridement (cm) - Length 1.5 1.8 -Area of Debridement (cm) - Width 1.4 1.2 -Total Square (Area) (cm) 2.10 2.16 -Tunneling No No -Undermining/Tunneling No No -Circular Undermining No No -Wound/Ulcer Outcome Not Healed Not Healed -Ulcer Cleansing Rinsed/ Rinsed/ Irrigated with Irrigated with Saline Saline -Foul Odor after Cleansing No No -Bioengineered Tissue No No -Bleeding Controlled with Pressure Pressure -Treatment Response Procedure Procedure Tolerated Well Tolerated Well -Offloading Yes Yes -Type of Offloading Surgical Shoe Surgical Shoe -Debridement - Bone, 1st 20sq cm Yes Yes Pain Scale: 0-10 Numeric Is Patient Pain Free? Yes Yes - Nurse 3 - General Ulcer D/C NN Start: 11/18/24 13:37 Freq: Status: Active Protocol: Activity Type Activity Date Activity User E-sign Co-sign Detail Recorded Client Recorded Date Recorded By Document 11/18/24 14:23 [facility] [id number] 11/18/24 14:23 [facility] Document 12/02/24 14:15 [id number] 12/02/24 14:16 11/18/24 12/02/24 14:23 14:15 Wound Care Center Nurse 3 #3 LT LAT FT -Ulcer Cleansing Rinsed/ Irrigated with Saline -Foul Odor after Cleansing No -Other Dressing BETADINE betadine gauze -Primary Dressing Covered/Secured with Dry Gauze & Dry Gauze & Roll Gauze, Roll Gauze, Secured with Secured with Tape Tape Treatment Response Procedure Tolerated Well Pain Scale: 0-10 Numeric Is Patient Pain Free? Yes Yes - Visit Discharge Discharge Condition Stable Stable Ambulatory Status Ambulatory,Cane Ambulatory,Cane Transportation Private Auto Private Auto Accompanied by DAUGHTER Medication Reconcilliation completed & No provided to patient/care provider Clinical Summary of Care Provided Yes Notes: continue to wear surgical shoe Assessment/Plan Assessment/Plan (1) Non-pressure chronic ulcer of other part of left foot with necrosis of bone: CODE(S): L97.524 - Non-pressure chronic ulcer of other part of left foot with necrosis of bone PLAN: Patient was examined and evaluated. All findings were discussed with the patient. All questions were answered to the patient's satisfaction. Excisional debridement down to including subcutaneous tissue, fascia and muscle and bone with a number 3 mm dermal curette to the left subfifth metatarsal head ulceration without incident. Predebridement measurement was 1.5 x 1.0 x 0.6 cm. Postdebridement measurement is 1.8 x 1.2 x 1.0 cm. The left lower extremities were cleaned and patted dry. Betadine soaked gauze followed by dry sterile dressing light compression wrap was donned. Patient did finish all her antibiotics. Will plan for surgery Frankie. Patient will continue strict blood sugar control. Patient will follow-up in Dr. Otoole in 1 week (2) Chronic painful diabetic polyneuropathy: CODE(S): E11.42 - Type 2 diabetes mellitus with diabetic polyneuropathy
--- NOTE | 2024-12-03 07:53 | WC ---
PHOTO - LEFT LAT FOOT 12/02/24
[2024-12-09 14:26] VITALS: BP 147/79; PULSE 89; RESP 16; TEMP 36
--- NOTE | 2024-12-09 14:30 | PCM.WC.PN ---
History of Present Illness Date of Service: 12/09/24 Chief Complaint: R BKA stump wound History of Wound: Arianna Jerry is a 57 y/o female who presents to the wound healing center today for management of a right BKA stump wound. She is accompanied to the appointment today by her daughter who helps to supplement her history and also helps with her wound care. 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 At that time, they explored and washed out proximally in her thigh as well. Subsequently she initially had wound vac placed prior to secondary closure. She reports that the amputation site did ultimately heal fully and she was able to obtain a prosthetic. She had been doing very well with her prosthetic and getting back to work etc. Unfortunately about 1-2 months ago she developed a wound on her amputation stump due to the prosthetic rubbing in this area. She presented to the [facility] ER on 02/26/23 with concern of infection. She was admitted from 02/26-03/01 for IV antibiotics. Wound cultures were positive for staph aureus, blood cultures were negative. She was evaluated by orthopedics at that time as well. XR and CT scan performed during that admission were negative for signs of osteomyelitis. She was discharged with a course of Bactrim and referral here. At home, they have been doing daily dressing changes with iodoform and dry gauze dressing. Her daughter reports it has made significant improvement since her hospital stay. Progress of Wound: Follow-up with full-thickness wound with concern for osteomyelitis status post incision bone cortex with delayed primary closure. Bone grew back to area and will be placed on linezolid. Subjective Subjective Patient is a 59-year-old diabetic female presenting to wound care center today for follow-up evaluation status post incision bone cortex with delayed primary closure to the full-thickness wound and osteo mild lytic bone to the left lower extremity. DOS: 12/04/2024. Patient is left the postoperative dressing clean dry and intact. She denies any strikethrough. She has reduced her smoking quite a bit. She denies any trauma. Denies constitutional symptoms. Weightbearing has been to heel only which has been limited. No other pedal complaints at this time. Objective Data Objective Data Vital Signs: Vital Signs Temp Pulse Resp BP O2 Del Method 96.8 F L 89 16 147/79 H Room Air 12/09/24 14:26 12/09/24 14:26 12/09/24 14:26 12/09/24 14:26 12/02/24 13:18 Oxygen Delivery Method Room Air Lab / Micro Data Micro: Microbiology 10/08/24 10:25 Wound - Left Foot Gram Stain - Final 10/08/24 10:25 Wound - Left Foot Wound Culture - Final Meth. resistant Staph. aureus Streptococcus agalactiae (B) Physical Exam Narrative Vascular: DP and PT pulses are palpable to the left lower extremity. CFT is brisk. Skin temperature gradient is warm to warm from proximal ankles to distal digits of the left lower extremity. No erythema or proximal streaking. Neurological: Light touch is intact. Protective sensation is diminished. Dermatological: Incision well coapted with suture. Mild drainage appreciated to the delayed primary closure site to the left foot. No erythema or proximal streaking. No malodor. Negative probe to bone. Musculoskeletal: No pain on palpation to full-thickness wound left foot. No pain with calf compression. Debridement Note Debridement Note Post-Debridement Measurements and Additional Note: Post-Debridement Measurements/Treatment - Nurse 1 - General Ulcer Assessment Start: 11/18/24 13:37 Freq: Status: Active Protocol: WC.LOWLIT Activity Type Activity Date Activity User E-sign Co-sign Detail Recorded Client Recorded Date Recorded By Document 11/18/24 13:38 DL [id number] 11/18/24 13:47 DL Document 12/02/24 13:18 KW [id number] 12/02/24 13:31 KW Document 12/09/24 14:26 JF [id number] 12/09/24 14:29 11/18/24 12/02/24 12/09/24 13:38 13:18 14:26 - Today's Visit Information Type of service Follow-up Visit Follow-up Visit Follow-up Visit (Physician/ENGRAVER (Physician/ENGRAVER (Physician/ENGRAVER ) ) ) Arrival Mode Ambulatory,Cane Ambulatory,Cane Wheelchair Transfer Assistance None Manual Accompanied by daughter Patient Identification Verified (Name & Yes Yes Yes ) Patient Requires Transmission-Based No No Precautions Vital Signs Temperature (97.8 F-99.1 F) 97.1 F L 97.4 F L 96.8 F L Temperature Source Temporal Temporal Temporal Pulse Rate (60-100) 106 H 98 89 Pulse Location Monitor Monitor Monitor Respiratory Rate (12-18) 16 18 16 Respiratory rate source Observation Observation Observation Oxygen Delivery Method Room Air Blood Pressure (90/60-120/80) 103/57 L 106/64 147/79 H Blood Pressure Mean (mm Hg) 72 78 101 Source Monitor Monitor Monitor Position Semi-Fowlers Semi-Fowlers Blood Pressure Location Left Arm Left Arm History Since Last Visit- (Skip if this is Patient's initial visit) Have you changed medications since your No No Yes last visit? Any new allergies or adverse reactions No No No Had a fall/change in ADL's that may No No No increase risk of falls Signs or symptoms of abuse and/or No No No neglect since last visit Have you been in the hospital since your No No No last visit? Has dressing in place as prescribed Yes Yes Yes Has compression in place as prescribed N/A Yes Yes Has offloadiing in place as prescribed Yes Yes Yes Experienced any changes in pain level or No No No management Left Footwear Surgical Shoe Surgical Shoe with pressure with pressure relief insole relief insole Right Footwear Regular Shoe Regular Shoe Pain Scale: 0-10 Numeric Is Patient Pain Free? Yes Yes Yes WC - Nurse 1 - General Ulcer Measurement Start: 11/18/24 13:37 Freq: Status: Active Protocol: Activity Type Activity Date Activity User E-sign Co-sign Detail Recorded Client Recorded Date Recorded By Document 11/18/24 13:38 DL [id number] 11/18/24 13:47 DL Document 12/02/24 13:18 KW [id number] 12/02/24 13:31 KW Document 12/09/24 14:26 JF [id number] 12/09/24 14:29 11/18/24 12/02/24 12/09/24 13:38 13:18 14:26 Wound Center Nurse 1 #3 LT LAT FT -Combined with other wound No -Current Size (cm) - Length 2 1.5 0.1 -Current Size (cm) - Width 1.8 1.3 0.1 -Current Size (cm) - Depth 0.6 1 0.1 -Total Square Cm 3.6 1.95 0.01 -Date of Last Picture (Recall this 12/02/24 field) -Photo Taken Yes -Epithelialization Large 67-100% -Tunneling Yes No -Tunneling Position (O'clock) 2 -Tunneling Distance (cm) 1.5 -Undermining/Tunneling No -Circular Undermining No -Exudate Amt Medium Small -Exudate Type Serosanguineous Serosanguineous -Wound Margin Flat & Intact -Granulation Amt None Present (0 Small (1-33%) None Present (0 %) %) -Granulation Quality [place] -Slough/Fibrin No -Necrosis Amt Large (67-100%) Large (67-100%) -Necrotic Tissue Type Adherent Slough Adherent Slough Adherent Slough -Structure Exposed N/A N/A -Texture (Edwina-wound Skin Appearance) Scarring Assessed Assessed -Moisture (Edwina-wound Skin Appearance) Maceration Assessed Assessed, Maceration,Dry/ Scaly -Color (Edwina-wound Skin Appearance) No Abnormality Assessed, Assessed Erythema -Temperature (Edwina-wound Skin No Abnormality No Abnormality No Abnormality Appearance) (Pt Warm) (Pt Warm) (Pt Warm) -Tenderness on Palpation (Edwina-wound No No No Skin Appearance) -Ulcer Cleansing Soap and Water Soap and Water Rinsed/ Irrigated with Saline -Foul Odor after Cleansing No No No -Anesthetic Used 5% Lidocaine 5% Lidocaine Gel Gel Lower Limb Edema Present No WC - Nurse 2 - General Ulcer CM Notes Start: 11/18/24 13:37 Freq: Status: Active Protocol: Activity Type Activity Date Activity User E-sign Co-sign Detail Recorded Client Recorded Date Recorded By Document 11/18/24 14:05 [id number] 11/18/24 14:07 Document 12/02/24 13:46 [id number] 12/02/24 13:51 11/18/24 12/02/24 14:05 13:46 Wound Center Nurse 2 #3 LT LAT FT -Time 14:05 13:48 -Correct Patient Yes Yes -Correct Side, Site, Position Yes Yes -Correct Procedure Yes Yes -Procedure Performed Yes Yes -Type of Procedure Debridement Debridement -Clinical Debridement Bone Bone -Tissue Removed Non-viable Non-viable tissue tissue -Post Debridement (cm) - Length 1.5 1.8 -Post Debridement (cm) - Width 1.4 1.2 -Post Debridement (cm) - Depth 0.8 1.0 -Total Square (Post) (cm) 2.10 2.16 -Area of Debridement (cm) - Length 1.5 1.8 -Area of Debridement (cm) - Width 1.4 1.2 -Total Square (Area) (cm) 2.10 2.16 -Tunneling No No -Undermining/Tunneling No No -Circular Undermining No No -Wound/Ulcer Outcome Not Healed Not Healed -Ulcer Cleansing Rinsed/ Rinsed/ Irrigated with Irrigated with Saline Saline -Foul Odor after Cleansing No No -Bioengineered Tissue No No -Bleeding Controlled with Pressure Pressure -Treatment Response Procedure Procedure Tolerated Well Tolerated Well -Offloading Yes Yes -Type of Offloading Surgical Shoe Surgical Shoe -Debridement - Bone, 1st 20sq cm Yes Yes Pain Scale: 0-10 Numeric Is Patient Pain Free? Yes Yes - Nurse 3 - General Ulcer D/C NN Start: 11/18/24 13:37 Freq: Status: Active Protocol: Activity Type Activity Date Activity User E-sign Co-sign Detail Recorded Client Recorded Date Recorded By Document 11/18/24 14:23 [facility] [id number] 11/18/24 14:23 [facility] Document 12/02/24 14:15 [id number] 12/02/24 14:16 11/18/24 12/02/24 14:23 14:15 Wound Care Center Nurse 3 #3 LT LAT FT -Ulcer Cleansing Rinsed/ Irrigated with Saline -Foul Odor after Cleansing No -Other Dressing BETADINE betadine gauze -Primary Dressing Covered/Secured with Dry Gauze & Dry Gauze & Roll Gauze, Roll Gauze, Secured with Secured with Tape Tape Treatment Response Procedure Tolerated Well Pain Scale: 0-10 Numeric Is Patient Pain Free? Yes Yes - Visit Discharge Discharge Condition Stable Stable Ambulatory Status Ambulatory,Cane Ambulatory,Cane Transportation Private Auto Private Auto Accompanied by DAUGHTER Medication Reconcilliation completed & No provided to patient/care provider Clinical Summary of Care Provided Yes Notes: continue to wear surgical shoe Assessment/Plan Assessment/Plan (1) Osteomyelitis of left foot: CODE(S): M86.9 - Osteomyelitis, unspecified QUALIFIERS: Osteomyelitis type: other chronic Qualified Code(s): M86.672 - Other chronic osteomyelitis, left ankle and foot PLAN: Patient was examined and evaluated. All findings were discussed with the patient. All questions were answered to the patient's satisfaction. After exam the patient is status post incision bone cortex with delayed primary closure to the left foot. DOS: 12/04/2024. The incision was dressed with Betadine soaked Adaptic dry sterile dressing and a single layer Polanco compression bandage was donned to left lower extremity. Patient will be placed in a surgical shoe for limited weightbearing to heel only to left lower extremity. She has prosthesis to the right and can be full weightbearing to the right lower extremity. Review of the patient's microbiology and culture sensitivities show some polymicrobial growth. Should be placed on the linezolid 600 mg twice daily for 2 weeks. If there is concern with getting the medication through her insurance will refer to infectious disease for consultation evaluation and treatment. Patient will follow-up in Dr. Otoole in 1 week (2) Chronic painful diabetic polyneuropathy: CODE(S): E11.42 - Type 2 diabetes mellitus with diabetic polyneuropathy
--- NOTE | 2024-12-11 08:54 | WC ---
PHOTO-LEFT LATERAL FOOT 12/09/24
== END 2024-12-15 23:59 | disposition home or self-care (01) ==
LOC: WC 13:30
PROVIDERS: PCP Family Medicine; Referring Provider Family Medicine; Visit Provider Podiatrist Foot & Ankle Surgery
DX: E11.621 Type 2 diabetes mellitus with foot ulcer (principal); L97.524 Non-pressure chronic ulcer of other part of left foot with necrosis of bone; Z89.511 Acquired absence of right leg below knee; M86.672 Other chronic osteomyelitis, left ankle and foot; E11.42 Type 2 diabetes mellitus with diabetic polyneuropathy; E11.69 Type 2 diabetes mellitus with other specified complication; F17.200 Nicotine dependence, unspecified, uncomplicated
CPT/HCPCS: 11044; 99214; G0463

== ENCOUNTER 2025-01-13 13:15 | Outpatient (RCR) | payer MEDICARE, SELFPAY ==
[2024-12-16 13:51] VITALS: BP 113/61; PULSE 83; RESP 18; TEMP 36.3
--- NOTE | 2024-12-16 15:31 | PN.PCM_ITS ---
History of Present Illness Date of Service: 12/16/24 Chief Complaint: R BKA stump wound History of Wound: Arianna Jerry is a 57 y/o female who presents to the wound healing center today for management of a right BKA stump wound. She is accompanied to the appointment today by her daughter who helps to supplement her history and also helps with her wound care. 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 At that time, they explored and washed out proximally in her thigh as well. Subsequently she initially had wound vac placed prior to secondary closure. She reports that the amputation site did ultimately heal fully and she was able to obtain a prosthetic. She had been doing very well with her prosthetic and getting back to work etc. Unfortunately about 1-2 months ago she developed a wound on her amputation stump due to the prosthetic rubbing in this area. She presented to the [facility] ER on 02/26/23 with concern of infection. She was admitted from 02/26-03/01 for IV antibiotics. Wound cultures were positive for staph aureus, blood cultures were negative. She was evaluated by orthopedics at that time as well. XR and CT scan performed during that admission were negative for signs of osteomyelitis. She was discharged with a course of Bactrim and referral here. At home, they have been doing daily dressing changes with iodoform and dry gauze dressing. Her daughter reports it has made significant improvement since her hospital stay. Progress of Wound: Left full-thickness wound status post incision bone cortex with primary closure, left foot Subjective Subjective Patient is a 59-year-old diabetic female present to clinic today status post incision bone cortex with delayed primary closure to left foot. Patient is approximately 2 weeks postop. She has no pain to the left lower extremity. She has not picked up her antibiotic yet from her polymicrobial bone growth from microbiology and culture and sensitivity. Overall her blood sugars well- controlled. She has reduced her smoking to only 3 cigarettes/day and trying to quit. She denies trauma. Denies constitutional symptoms. No other pedal complaints at this time. Objective Data Objective Data Vital Signs: Vital Signs Temp Pulse Resp BP O2 Del Method 97.3 F L 83 18 113/61 Room Air 12/16/24 13:51 12/16/24 13:51 12/16/24 13:51 12/16/24 13:51 12/16/24 13:51 Oxygen Delivery Method Room Air Lab / Micro Data Micro: Microbiology 10/08/24 10:25 Wound - Left Foot Gram Stain - Final 10/08/24 10:25 Wound - Left Foot Wound Culture - Final Meth. resistant Staph. aureus Streptococcus agalactiae (B) Physical Exam Narrative Vascular: DP and PT pulses are palpable to the left lower extremity. CFT is brisk. Skin temperature gradient is warm to warm from proximal ankles to distal digits of the left lower extremity. No erythema or proximal streaking. Neurological: Light touch is intact. Protective sensation is diminished. Dermatological: Incision is well coapted to the proximal and distal aspect with evidence of a full-thickness wound at the level of the old ulcer. After debridement the ulcer measures 1.5 x 1.0 x 1.0 cm. Negative probe to bone but positive probe to muscle. No malodor or sign of infection. Excisional debridement down to including subcutaneous tissue, fascia and muscle of the full-thickness wound to the left foot done with a number 5 mm dermal curette without incident. Predebridement measurement is 1.0 x 0.8 x 0.5 cm. Postdebridement measurement is 1.5 x 1.0 x 1.0 cm. Musculoskeletal: No pain on palpation to full-thickness wound left foot. No pain with calf compression. Debridement Note Debridement Note Debridement Free Text: Excisional debridement down to including subcutaneous tissue, fascia and muscle of the full-thickness wound to the left foot done with a number 5 mm dermal curette without incident. Predebridement measurement is 1.0 x 0.8 x 0.5 cm. Postdebridement measurement is 1.5 x 1.0 x 1.0 cm. Post-Debridement Measurements and Additional Note: Post-Debridement Measurements/Treatment - Nurse 1 - General Ulcer Assessment Start: 12/16/24 13:51 Freq: Status: Active Protocol: APRIL Activity Type Activity Date Activity User E-sign Co-sign Detail Recorded Client Recorded Date Recorded By Document 12/16/24 13:51 [id number] 12/16/24 13:53 12/16/24 13:51 - Today's Visit Information Type of service Follow-up Visit (Physician/NEUROLOGY DIRECTOR ) Arrival Mode Ambulatory Transfer Assistance None Patient Identification Verified (Name & Yes ) Vital Signs Temperature (97.8 F-99.1 F) 97.3 F L Temperature Source Temporal Pulse Rate (60-100) 83 Pulse Location Monitor Respiratory Rate (12-18) 18 Respiratory rate source Observation Oxygen Delivery Method Room Air Blood Pressure (90/60-120/80) 113/61 Blood Pressure Mean (mm Hg) 78 Source Monitor Position Sitting Blood Pressure Location Right Arm History Since Last Visit- (Skip if this is Patient's initial visit) Have you changed medications since your No last visit? Any new allergies or adverse reactions No Had a fall/change in ADL's that may No increase risk of falls Signs or symptoms of abuse and/or No neglect since last visit Have you been in the hospital since your No last visit? Has dressing in place as prescribed Yes Has compression in place as prescribed Yes Has offloadiing in place as prescribed Yes Experienced any changes in pain level or No management Left Footwear Surgical Shoe with pressure relief insole Pain Scale: 0-10 Numeric Is Patient Pain Free? Yes WC - Nurse 1 - General Ulcer Measurement Start: 12/16/24 13:51 Freq: Status: Active Protocol: Activity Type Activity Date Activity User E-sign Co-sign Detail Recorded Client Recorded Date Recorded By Document 12/16/24 13:51 [id number] 12/16/24 13:53 GM 12/16/24 13:51 Wound Center Nurse 1 #3 LT LAT FT -Current Size (cm) - Length 0.1 -Current Size (cm) - Width 0.1 -Current Size (cm) - Depth 0.1 -Total Square Cm 0.01 -Date of Last Picture (Recall this 12/16/24 field) -Photo Taken Yes -Temperature (Edwina-wound Skin No Abnormality Appearance) (Pt Warm) -Tenderness on Palpation (Edwina-wound No Skin Appearance) -Ulcer Cleansing Soap and Water -Foul Odor after Cleansing No -Wound Comment(s) SUTURES INTACT WC - Nurse 2 - General Ulcer CM Notes Start: 12/16/24 13:51 Freq: Status: Active Protocol: Activity Type Activity Date Activity User E-sign Co-sign Detail Recorded Client Recorded Date Recorded By Document 12/16/24 14:03 [email or web address] [id number] 12/16/24 14:07 JF Edit Result 12/16/24 14:03 JF (1) [id number] 12/16/24 14:21 JF (1) #3 LT LAT FT - Post Debridement (cm) - Width 0.5 => 1.0 - Total Square (Post) (cm) 0.75 => 1.50 - Area of Debridement (cm) - Width 0.5 => 1.0 - Total Square (Area) (cm) 0.75 => 1.50 12/16/24 14:03 Wound Center Nurse 2 -Time 14:03 -Correct Patient Yes -Correct Side, Site, Position Yes -Correct Procedure Yes -Procedure Performed Yes -Type of Procedure Debridement -Clinical Debridement Muscle / Fascia -Tissue Removed Muscle -Post Debridement (cm) - Length 1.5 -Post Debridement (cm) - Width 1.0 -Post Debridement (cm) - Depth 1.0 -Total Square (Post) (cm) 1.50 -Area of Debridement (cm) - Length 1.5 -Area of Debridement (cm) - Width 1.0 -Total Square (Area) (cm) 1.50 -Tunneling No -Undermining/Tunneling No -Circular Undermining No -Wound/Ulcer Outcome Not Healed -Ulcer Cleansing Rinsed/ Irrigated with Saline -Foul Odor after Cleansing No -Bioengineered Tissue No -Bleeding Controlled with Pressure -Offloading Yes -Type of Offloading Surgical Shoe -Debridement - Muscle / Fascia, 1st Yes 20sq cm Pain Scale: 0-10 Numeric Is Patient Pain Free? Yes - Nurse 3 - General Ulcer D/C NN Start: 12/16/24 13:51 Freq: Status: Active Protocol: Activity Type Activity Date Activity User E-sign Co-sign Detail Recorded Client Recorded Date Recorded By Document 12/16/24 14:22 [id number] 12/16/24 14:22 12/16/24 14:22 Wound Care Center Nurse 3 #3 LT LAT FT -Ulcer Cleansing Not Cleansed -Foul Odor after Cleansing No -Primary Dressing Covered/Secured with Dry Gauze & Roll Gauze, Secured with Tape LLE -Lotion applied to leg before No compression wrap -Compression Wrap Dexter Wrap Pain Scale: 0-10 Numeric Is Patient Pain Free? Yes - Visit Discharge Discharge Condition Stable Ambulatory Status Wheelchair Transportation Private Auto Assessment/Plan Assessment/Plan (1) Non-pressure chronic ulcer of other part of left foot with necrosis of muscle: CODE(S): L97.523 - Non-pressure chronic ulcer of other part of left foot with necrosis of muscle PLAN: Patient was examined and evaluated. All findings were discussed with the patient. All questions were answered to the patient's satisfaction. Excisional debridement down to including subcutaneous tissue, fascia and muscle of the full-thickness wound to the left foot done with a number 5 mm dermal curette without incident. Predebridement measurement is 1.0 x 0.8 x 0.5 cm. Postdebridement measurement is 1.5 x 1.0 x 1.0 cm. The left foot was wiped clean and patted dry. The incision was dressed with Betadine soaked gauze, dry sterile dressing and light compression wrap. Patient will go get her oral antibiotic: Linezolid 600 mg twice daily from [facility]. She will continue strict blood sugar control. Educated patient on smoking cessation. We will begin authorization for amniotic skin graft substitute as the patient is showing evidence of recurrence of the full-thickness wound to the lateral aspect of the left foot. Amniotic skin graft will help accelerate the patient's healing potential and decrease the need for further surgery. Patient will follow-up in Dr. Otoole in 1 week (2) Chronic painful diabetic polyneuropathy: CODE(S): E11.42 - Type 2 diabetes mellitus with diabetic polyneuropathy
--- NOTE | 2024-12-17 10:06 | WC ---
PHOTO-LEFT LATERAL FOOT 12/16/24
[2024-12-23 14:51] VITALS: BP 128/76; PULSE 93; RESP 18; TEMP 36.3
--- NOTE | 2024-12-23 15:49 | PCM.WC.PN ---
History of Present Illness Date of Service: 12/23/24 Chief Complaint: R BKA stump wound History of Wound: Arianna Jerry is a 57 y/o female who presents to the wound healing center today for management of a right BKA stump wound. She is accompanied to the appointment today by her daughter who helps to supplement her history and also helps with her wound care. 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 At that time, they explored and washed out proximally in her thigh as well. Subsequently she initially had wound vac placed prior to secondary closure. She reports that the amputation site did ultimately heal fully and she was able to obtain a prosthetic. She had been doing very well with her prosthetic and getting back to work etc. Unfortunately about 1-2 months ago she developed a wound on her amputation stump due to the prosthetic rubbing in this area. She presented to the [facility] ER on 02/26/23 with concern of infection. She was admitted from 02/26-03/01 for IV antibiotics. Wound cultures were positive for staph aureus, blood cultures were negative. She was evaluated by orthopedics at that time as well. XR and CT scan performed during that admission were negative for signs of osteomyelitis. She was discharged with a course of Bactrim and referral here. At home, they have been doing daily dressing changes with iodoform and dry gauze dressing. Her daughter reports it has made significant improvement since her hospital stay. Progress of Wound: Left full-thickness wound status post incision bone cortex with primary closure, left foot Subjective Subjective Patient is a 59-year-old diabetic female presenting to clinic today follow-up evaluation of full-thickness wound secondary to surgical wound dehiscence to the left foot. Patient has been compliant with dressing changes and admits the wound is very healthy and granular. She denies any drainage malodor or exposed bone. Her blood sugars well-controlled. She has reduced her smoking to only 3 cigarettes/day. She has been approved for amniotic skin graft substitute. She denies trauma. Denies constitutional symptoms. No other pedal complaints at this time. Objective Data Objective Data Vital Signs: Vital Signs Temp Pulse Resp BP O2 Del Method 97.3 F L 93 18 128/76 H Room Air 12/23/24 14:51 12/23/24 14:51 12/23/24 14:51 12/23/24 14:51 12/23/24 14:51 Oxygen Delivery Method Room Air Lab / Micro Data Micro: Microbiology 10/08/24 10:25 Wound - Left Foot Gram Stain - Final 10/08/24 10:25 Wound - Left Foot Wound Culture - Final Meth. resistant Staph. aureus Streptococcus agalactiae (B) Physical Exam Narrative Vascular: DP and PT pulses are palpable to the left lower extremity. CFT is brisk. Skin temperature gradient is warm to warm from proximal ankles to distal digits of the left lower extremity. No erythema or proximal streaking. Neurological: Light touch is intact. Protective sensation is diminished. Dermatological: Incision is well coapted with evidence of full-thickness wound to the old ulcer. Full-thickness wound measures 2.7 x 1.0 x 0.7 cm. Wound base is granular with no drainage or malodor. Negative probe to bone. Excisional debridement down to including subcutaneous tissue, fascia and muscle of the full-thickness wound to the left foot done with a number 5 mm dermal curette without incident. Predebridement measurement is 2.3 x 0.7 x 0.5 cm. Postdebridement measurement is 2.7 x 1.0 x 0.7 cm. Epi Cord 2.0 x 3.0 cm graft was applied to the left full-thickness ulceration with 100% use. First application. The graft site was free and clear of any infection. The wound/skin graft substitute was dressed with nonadherent bandage secured in place with Steri-Strips followed by bolster dressing as well as a single layer Tubigrip. Musculoskeletal: No pain on palpation to full-thickness wound left foot. No pain with calf compression. Debridement Note Debridement Note Debridement Free Text: Excisional debridement down to including subcutaneous tissue, fascia and muscle of the full-thickness wound to the left foot done with a number 5 mm dermal curette without incident. Predebridement measurement is 2.3 x 0.7 x 0.5 cm. Postdebridement measurement is 2.7 x 1.0 x 0.7 cm. Epi Cord 2.0 x 3.0 cm graft was applied to the left full-thickness ulceration with 100% use. First application. The graft site was free and clear of any infection. The wound/skin graft substitute was dressed with nonadherent bandage secured in place with Steri-Strips followed by bolster dressing as well as a single layer Tubigrip. Post-Debridement Measurements and Additional Note: Post-Debridement Measurements/Treatment WC - Nurse 1 - General Ulcer Assessment Start: 12/16/24 13:51 Freq: Status: Active Protocol: APRIL Activity Type Activity Date Activity User E-sign Co-sign Detail Recorded Client Recorded Date Recorded By Document 12/16/24 13:51 [id number] 12/16/24 13:53 Document 12/23/24 14:51 [id number] 12/23/24 14:53 12/16/24 12/23/24 13:51 14:51 WC - Today's Visit Information Type of service Follow-up Visit Follow-up Visit (Physician/DIRECTOR SUPPLIER QUALITY (Physician/DIRECTOR SUPPLIER QUALITY ) ) Arrival Mode Ambulatory Wheelchair Transfer Assistance None None Patient Identification Verified (Name & Yes Yes ) Vital Signs Temperature (97.8 F-99.1 F) 97.3 F L 97.3 F L Temperature Source Temporal Temporal Pulse Rate (60-100) 83 93 Pulse Location Monitor Monitor Respiratory Rate (12-18) 18 18 Respiratory rate source Observation Observation Oxygen Delivery Method Room Air Room Air Blood Pressure (90/60-120/80) 113/61 128/76 H Blood Pressure Mean (mm Hg) 78 93 Source Monitor Monitor Position Sitting Sitting Blood Pressure Location Right Arm Right Arm History Since Last Visit- (Skip if this is Patient's initial visit) Have you changed medications since your No No last visit? Any new allergies or adverse reactions No No Had a fall/change in ADL's that may No No increase risk of falls Signs or symptoms of abuse and/or No No neglect since last visit Have you been in the hospital since your No No last visit? Has dressing in place as prescribed Yes Yes Has compression in place as prescribed Yes Yes Has offloadiing in place as prescribed Yes Yes Experienced any changes in pain level or No No management Left Footwear Surgical Shoe with pressure relief insole Pain Scale: 0-10 Numeric Is Patient Pain Free? Yes Yes SUE - Nurse 1 - General Ulcer Measurement Start: 12/16/24 13:51 Freq: Status: Active Protocol: Activity Type Activity Date Activity User E-sign Co-sign Detail Recorded Client Recorded Date Recorded By Document 12/16/24 13:51 [id number] 12/16/24 13:53 Document 12/23/24 14:51 [id number] 12/23/24 14:53 GM 12/16/24 12/23/24 13:51 14:51 Wound Center Nurse 1 #3 LT LAT FT -Current Size (cm) - Length 0.1 0.1 -Current Size (cm) - Width 0.1 0.1 -Current Size (cm) - Depth 0.1 0.1 -Total Square Cm 0.01 0.01 -Date of Last Picture (Recall this 12/16/24 field) -Photo Taken Yes No -Epithelialization None Present -Tunneling No -Undermining/Tunneling No -Circular Undermining No -Exudate Amt Small -Exudate Type Yellow/Green -Wound Margin Distinct, Outline Attached -Granulation Amt Medium (34-66%) -Slough/Fibrin Yes -Necrosis Amt Small (1-33%) -Necrotic Tissue Type Adherent Slough -Texture (Edwina-wound Skin Appearance) Assessed -Moisture (Edwina-wound Skin Appearance) Assessed -Color (Edwina-wound Skin Appearance) Assessed -Temperature (Edwina-wound Skin No Abnormality No Abnormality Appearance) (Pt Warm) (Pt Warm) -Tenderness on Palpation (Edwina-wound No No Skin Appearance) -Ulcer Cleansing Soap and Water Rinsed/ Irrigated with Saline -Foul Odor after Cleansing No No -Anesthetic Used 5% Lidocaine Gel -Wound Comment(s) SUTURES INTACT WC - Nurse 2 - General Ulcer CM Notes Start: 12/16/24 13:51 Freq: Status: Active Protocol: Activity Type Activity Date Activity User E-sign Co-sign Detail Recorded Client Recorded Date Recorded By Document 12/16/24 14:03 [id number] 12/16/24 14:07 Edit Result 12/16/24 14:03 JF (1) [id number] 12/16/24 14:21 JF Document 12/23/24 15:06 [id number] 12/23/24 15:09 (1) #3 LT LAT FT - Post Debridement (cm) - Width 0.5 => 1.0 - Total Square (Post) (cm) 0.75 => 1.50 - Area of Debridement (cm) - Width 0.5 => 1.0 - Total Square (Area) (cm) 0.75 => 1.50 12/16/24 12/23/24 14:03 15:06 Wound Center Nurse 2 #3 LT LAT FT -Time 14:03 15:07 -Correct Patient Yes Yes -Correct Side, Site, Position Yes Yes -Correct Procedure Yes Yes -Procedure Performed Yes Yes -Type of Procedure Debridement Debridement -Clinical Debridement Muscle / Fascia Muscle / Fascia -Tissue Removed Muscle Muscle -Post Debridement (cm) - Length 1.5 2.7 -Post Debridement (cm) - Width 1.0 1.0 -Post Debridement (cm) - Depth 1.0 0.7 -Total Square (Post) (cm) 1.50 2.70 -Area of Debridement (cm) - Length 1.5 2.7 -Area of Debridement (cm) - Width 1.0 1.0 -Total Square (Area) (cm) 1.50 2.70 -Tunneling No No -Undermining/Tunneling No No -Circular Undermining No No -Wound/Ulcer Outcome Not Healed Not Healed -Ulcer Cleansing Rinsed/ Rinsed/ Irrigated with Irrigated with Saline Saline -Foul Odor after Cleansing No No -Bioengineered Tissue No Yes -Type of Bioengineered Tissue Epicord -Expiration Date 04/18/29 -Product Lot Number [id number] -Percent Used 100 -Lot number of Saline Used [id number] -Bleeding Controlled with Pressure Pressure -Treatment Response Procedure Tolerated Well -Offloading Yes Yes -Type of Offloading Surgical Shoe Surgical Shoe -Debridement - Muscle / Fascia, 1st Yes No 20sq cm -Apply Skin Sub - 1st 25 sq cm - Feet 1 -Epicord Application 1-4 (per sq cm) 6 Pain Scale: 0-10 Numeric Is Patient Pain Free? Yes Yes - Nurse 3 - General Ulcer D/C NN Start: 12/16/24 13:51 Freq: Status: Active Protocol: Activity Type Activity Date Activity User E-sign Co-sign Detail Recorded Client Recorded Date Recorded By Document 12/16/24 14:22 [id number] 12/16/24 14:22 Document 12/23/24 15:28 [id number] 12/23/24 15:28 12/16/24 12/23/24 14:22 15:28 Wound Care Center Nurse 3 #3 LT LAT FT -Ulcer Cleansing Not Cleansed Not Cleansed -Foul Odor after Cleansing No No -Primary Dressing Covered/Secured with Dry Gauze & Dry Gauze,Dry Roll Gauze, Gauze & Roll Secured with Gauze,Secured Tape with Tape LLE -Lotion applied to leg before No No compression wrap -Compression Wrap Dexter Wrap Dexter Wrap Pain Scale: 0-10 Numeric Is Patient Pain Free? Yes Yes WC - Visit Discharge Discharge Condition Stable Stable Ambulatory Status Wheelchair Wheelchair Transportation Private Auto Private Auto Assessment/Plan Assessment/Plan (1) Non-pressure chronic ulcer of other part of left foot with necrosis of muscle: CODE(S): L97.523 - Non-pressure chronic ulcer of other part of left foot with necrosis of muscle PLAN: Patient was examined and evaluated. All findings were discussed with the patient. All questions were answered to the patient's satisfaction. Excisional debridement down to including subcutaneous tissue, fascia and muscle of the full-thickness wound to the left foot done with a number 5 mm dermal curette without incident. Predebridement measurement is 2.3 x 0.7 x 0.5 cm. Postdebridement measurement is 2.7 x 1.0 x 0.7 cm. Epi Cord 2.0 x 3.0 cm graft was applied to the left full-thickness ulceration with 100% use. First application. The graft site was free and clear of any infection. The wound/skin graft substitute was dressed with nonadherent bandage secured in place with Steri-Strips followed by bolster dressing as well as a single layer Tubigrip. Educated patient on the importance of smoking sensation. Patient will continue to follow strict blood sugar control. Patient will follow-up in Dr. Otoole in 1 week (2) Chronic painful diabetic polyneuropathy: CODE(S): E11.42 - Type 2 diabetes mellitus with diabetic polyneuropathy
[2024-12-30 13:50] VITALS: BP 150/71; PULSE 87; RESP 18; TEMP 36.6
--- NOTE | 2024-12-30 14:09 | PN.PCM_ITS ---
History of Present Illness Date of Service: 12/30/24 Chief Complaint: R BKA stump wound History of Wound: Arianna Jerry is a 57 y/o female who presents to the wound healing center today for management of a right BKA stump wound. She is accompanied to the appointment today by her daughter who helps to supplement her history and also helps with her wound care. 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 At that time, they explored and washed out proximally in her thigh as well. Subsequently she initially had wound vac placed prior to secondary closure. She reports that the amputation site did ultimately heal fully and she was able to obtain a prosthetic. She had been doing very well with her prosthetic and getting back to work etc. Unfortunately about 1-2 months ago she developed a wound on her amputation stump due to the prosthetic rubbing in this area. She presented to the [facility] ER on 02/26/23 with concern of infection. She was admitted from 02/26-03/01 for IV antibiotics. Wound cultures were positive for staph aureus, blood cultures were negative. She was evaluated by orthopedics at that time as well. XR and CT scan performed during that admission were negative for signs of osteomyelitis. She was discharged with a course of Bactrim and referral here. At home, they have been doing daily dressing changes with iodoform and dry gauze dressing. Her daughter reports it has made significant improvement since her hospital stay. Progress of Wound: Left full-thickness wound status post incision bone cortex with primary closure, left foot Subjective Subjective Patient is a 59-year-old diabetic female presenting to clinic today follow-up evaluation of status post incision bone cortex with a primary closure: After procedure patient had sutures removed and ended up getting a wound dehiscence. After that we did conservative treatment and authorize skin graft substitute that we have been applying successfully. She is left the dressing clean dry and intact. She only change it the other day due to mild drainage. Overall her blood sugars well-controlled. She has reduced her smoking to 3 cigarettes/day. She is trying to quit. She denies trauma. Denies constitutional symptoms. No other pedal complaints at this time. Patient is also taking antibiotics as prescribed. Objective Data Objective Data Vital Signs: Vital Signs Temp Pulse Resp BP O2 Del Method 97.9 F 87 18 150/71 H Room Air 12/30/24 13:50 12/30/24 13:50 12/30/24 13:50 12/30/24 13:50 12/23/24 14:51 Oxygen Delivery Method Room Air Lab / Micro Data Micro: Microbiology 10/08/24 10:25 Wound - Left Foot Gram Stain - Final 10/08/24 10:25 Wound - Left Foot Wound Culture - Final Meth. resistant Staph. aureus Streptococcus agalactiae (B) Physical Exam Narrative Vascular: DP and PT pulses are palpable to the left lower extremity. CFT is brisk. Skin temperature gradient is warm to warm from proximal ankles to distal digits of the left lower extremity. No erythema or proximal streaking. Neurological: Light touch is intact. Protective sensation is diminished. Dermatological: Incision is well coapted with evidence of full-thickness wound to the old ulcer. Full-thickness wound measures 2.7 x 1.0 x 0.7 cm. Wound base is granular with no drainage or malodor. Negative probe to bone. Excisional debridement down to including subcutaneous tissue, fascia and muscle of the full-thickness wound to the left foot done with a number 5 mm dermal curette without incident. Predebridement measurement is 3.0 x 0.6 x 0.7 cm.. Postdebridement measurement is 3.7 x 0.8 x 0.9 cm. Epi Cord 2.0 x 3.0 cm graft was applied to the left full-thickness ulceration with 100% use. Second application. The graft site was free and clear of any infection. The wound/skin graft substitute was dressed with nonadherent bandage secured in place with Steri-Strips followed by bolster dressing as well as a single layer Tubigrip. Musculoskeletal: No pain on palpation to full-thickness wound left foot. No pain with calf compression. Debridement Note Debridement Note Debridement Free Text: Excisional debridement down to including subcutaneous tissue, fascia and muscle of the full-thickness wound to the left foot done with a number 5 mm dermal curette without incident. Predebridement measurement is 3.0 x 0.6 x 0.7 cm.. Postdebridement measurement is 3.7 x 0.8 x 0.9 cm. Epi Cord 2.0 x 3.0 cm graft was applied to the left full-thickness ulceration with 100% use. Second application. The graft site was free and clear of any infection. The wound/skin graft substitute was dressed with nonadherent bandage secured in place with Steri-Strips followed by bolster dressing as well as a single layer Tubigrip. Post-Debridement Measurements and Additional Note: Post-Debridement Measurements/Treatment - Nurse 1 - General Ulcer Assessment Start: 12/16/24 13:51 Freq: Status: Active Protocol: [email or web address] Activity Type Activity Date Activity User E-sign Co-sign Detail Recorded Client Recorded Date Recorded By Document 12/16/24 13:51 GM [id number] 12/16/24 13:53 GM Document 12/23/24 14:51 GM [id number] 12/23/24 14:53 GM Document 12/30/24 13:50 RB [id number] 12/30/24 13:52 RB 12/16/24 12/23/24 12/30/24 13:51 14:51 13:50 - Today's Visit Information Type of service Follow-up Visit Follow-up Visit Follow-up Visit (Physician/[employer] (Physician/[employer] (Physician/[employer] ) ) ) Arrival Mode Ambulatory Wheelchair Ambulatory Transfer Assistance None None None Patient Identification Verified (Name & Yes Yes Yes ) Patient Requires Transmission-Based No Precautions Vital Signs Temperature (97.8 F-99.1 F) 97.3 F L 97.3 F L 97.9 F Temperature Source Temporal Temporal Temporal Pulse Rate (60-100) 83 93 87 Pulse Location Monitor Monitor Monitor Respiratory Rate (12-18) 18 18 18 Respiratory rate source Observation Observation Observation Oxygen Delivery Method Room Air Room Air Blood Pressure (90/60-120/80) 113/61 128/76 H 150/71 H Blood Pressure Mean (mm Hg) 78 93 97 Source Monitor Monitor Monitor Position Sitting Sitting Semi-Fowlers Blood Pressure Location Right Arm Right Arm Left Arm History Since Last Visit- (Skip if this is Patient's initial visit) Have you changed medications since your No No No last visit? Any new allergies or adverse reactions No No No Had a fall/change in ADL's that may No No No increase risk of falls Signs or symptoms of abuse and/or No No No neglect since last visit Have you been in the hospital since your No No No last visit? Has dressing in place as prescribed Yes Yes Yes Has compression in place as prescribed Yes Yes Yes Has offloadiing in place as prescribed Yes Yes N/A Experienced any changes in pain level or No No No management Left Footwear Surgical Shoe with pressure relief insole Pain Scale: 0-10 Numeric Is Patient Pain Free? Yes Yes Yes WC - Nurse 1 - General Ulcer Measurement Start: 12/16/24 13:51 Freq: Status: Active Protocol: Activity Type Activity Date Activity User E-sign Co-sign Detail Recorded Client Recorded Date Recorded By Document 12/16/24 13:51 GM [id number] 12/16/24 13:53 GM Document 12/23/24 14:51 GM [id number] 12/23/24 14:53 GM Document 12/30/24 13:50 RB [id number] 12/30/24 13:52 RB 12/16/24 12/23/24 12/30/24 13:51 14:51 13:50 Wound Center Nurse 1 #3 LT LAT FT -Combined with other wound No -Current Size (cm) - Length 0.1 0.1 0.1 -Current Size (cm) - Width 0.1 0.1 0.1 -Current Size (cm) - Depth 0.1 0.1 0.1 -Total Square Cm 0.01 0.01 0.01 -Date of Last Picture (Recall this 12/16/24 field) -Photo Taken Yes No Yes -Epithelialization None Present -Tunneling No No -Undermining/Tunneling No No -Circular Undermining No No -Exudate Amt Small Large -Exudate Type Yellow/Green Serosanguineous -Wound Margin Distinct, Distinct, Outline Outline Attached Attached -Granulation Amt Medium (34-66%) Medium (34-66%) -Granulation Quality Hooker -Slough/Fibrin Yes Yes -Necrosis Amt Small (1-33%) Medium (34-66%) -Necrotic Tissue Type Adherent Slough Adherent Slough -Structure Exposed N/A -Texture (Edwina-wound Skin Appearance) Assessed Assessed -Moisture (Edwina-wound Skin Appearance) Assessed Dry/Scaly -Color (Edwina-wound Skin Appearance) Assessed Assessed -Temperature (Edwina-wound Skin No Abnormality No Abnormality No Abnormality Appearance) (Pt Warm) (Pt Warm) (Pt Warm) -Tenderness on Palpation (Edwina-wound No No No Skin Appearance) -Ulcer Cleansing Soap and Water Rinsed/ Wound Cleanser Irrigated with Saline -Foul Odor after Cleansing No No No -Anesthetic Used 5% Lidocaine 4% Lidocaine Gel Solution -Wound Comment(s) SUTURES INTACT sutures intact WC - Nurse 2 - General Ulcer CM Notes Start: 12/16/24 13:51 Freq: Status: Active Protocol: Activity Type Activity Date Activity User E-sign Co-sign Detail Recorded Client Recorded Date Recorded By Document 12/16/24 14:03 JF [id number] 12/16/24 14:07 JF Edit Result 12/16/24 14:03 JF (1) [id number] 12/16/24 14:21 JF Document 12/23/24 15:06 JF [id number] 12/23/24 15:09 JF Document 12/30/24 13:59 JF [id number] 12/30/24 14:04 JF (1) #3 LT LAT FT - Post Debridement (cm) - Width 0.5 => 1.0 - Total Square (Post) (cm) 0.75 => 1.50 - Area of Debridement (cm) - Width 0.5 => 1.0 - Total Square (Area) (cm) 0.75 => 1.50 12/16/24 12/23/24 12/30/24 14:03 15:06 13:59 Wound Center Nurse 2 #3 LT LAT FT -Time 14:03 15:07 14:00 -Correct Patient Yes Yes Yes -Correct Side, Site, Position Yes Yes Yes -Correct Procedure Yes Yes Yes -Procedure Performed Yes Yes Yes -Type of Procedure Debridement Debridement Debridement -Clinical Debridement Muscle / Fascia Muscle / Fascia Muscle / Fascia -Tissue Removed Muscle Muscle Muscle -Post Debridement (cm) - Length 1.5 2.7 3.7 -Post Debridement (cm) - Width 1.0 1.0 0.8 -Post Debridement (cm) - Depth 1.0 0.7 0.9 -Total Square (Post) (cm) 1.50 2.70 2.96 -Area of Debridement (cm) - Length 1.5 2.7 3.7 -Area of Debridement (cm) - Width 1.0 1.0 0.8 -Total Square (Area) (cm) 1.50 2.70 2.96 -Tunneling No No No -Undermining/Tunneling No No No -Circular Undermining No No No -Wound/Ulcer Outcome Not Healed Not Healed Not Healed -Ulcer Cleansing Rinsed/ Rinsed/ Rinsed/ Irrigated with Irrigated with Irrigated with Saline Saline Saline -Foul Odor after Cleansing No No No -Bioengineered Tissue No Yes Yes -Type of Bioengineered Tissue Epicord Epicord -Expiration Date 04/18/29 03/18/29 -Product Lot Number [id number] -Percent Used 100 100 -Lot number of Saline Used [id number] -Bleeding Controlled with Pressure Pressure Pressure -Treatment Response Procedure Procedure Tolerated Well Tolerated Well -Offloading Yes Yes Yes -Type of Offloading Surgical Shoe Surgical Shoe Surgical Shoe -Debridement - Muscle / Fascia, 1st Yes No No 20sq cm -Apply Skin Sub - 1st 25 sq cm - Feet 1 1 -Epicord Application 1-4 (per sq cm) 6 6 Pain Scale: 0-10 Numeric Is Patient Pain Free? Yes Yes Yes - Nurse 3 - General Ulcer D/C NN Start: 12/16/24 13:51 Freq: Status: Active Protocol: Activity Type Activity Date Activity User E-sign Co-sign Detail Recorded Client Recorded Date Recorded By Document 12/16/24 14:22 [id number] 12/16/24 14:22 Document 12/23/24 15:28 [id number] 12/23/24 15:28 12/16/24 12/23/24 14:22 15:28 Wound Care Center Nurse 3 #3 LT LAT FT -Ulcer Cleansing Not Cleansed Not Cleansed -Foul Odor after Cleansing No No -Primary Dressing Covered/Secured with Dry Gauze & Dry Gauze,Dry Roll Gauze, Gauze & Roll Secured with Gauze,Secured Tape with Tape LLE -Lotion applied to leg before No No compression wrap -Compression Wrap Dexter Wrap Dexter Wrap Pain Scale: 0-10 Numeric Is Patient Pain Free? Yes Yes - Visit Discharge Discharge Condition Stable Stable Ambulatory Status Wheelchair Wheelchair Transportation Private Auto Private Auto Assessment/Plan Assessment/Plan (1) Non-pressure chronic ulcer of other part of left foot with necrosis of muscle: CODE(S): L97.523 - Non-pressure chronic ulcer of other part of left foot with necrosis of muscle PLAN: Patient was examined and evaluated. All findings were discussed with the patient. All questions were answered to the patient's satisfaction. Excisional debridement down to including subcutaneous tissue, fascia and muscle of the full-thickness wound to the left foot done with a number 5 mm dermal curette without incident. Predebridement measurement is 3.0 x 0.6 x 0.7 cm.. Postdebridement measurement is 3.7 x 0.8 x 0.9 cm. Epi Cord 2.0 x 3.0 cm graft was applied to the left full-thickness ulceration with 100% use. Second application. The graft site was free and clear of any infection. The wound/skin graft substitute was dressed with nonadherent bandage secured in place with Steri-Strips followed by bolster dressing as well as a single layer Tubigrip. Educated patient on the importance of smoking sensation. Patient will continue to follow strict blood sugar control. Patient will continue her antibiotics as prescribed. She states that she has 1 more day of the linezolid to go. Patient will follow-up in Dr. Otoole in 1 week (2) Chronic painful diabetic polyneuropathy: CODE(S): E11.42 - Type 2 diabetes mellitus with diabetic polyneuropathy
--- NOTE | 2024-12-31 10:29 | WC ---
PHOTO-LEFT LATERAL FOOT 12/30/24
[2025-01-06 11:13] VITALS: BP 121/66; PULSE 88; RESP 18; TEMP 36.3
--- NOTE | 2025-01-07 09:02 | WC ---
PHOTO LEFT LAT FOOT 01/06/25
--- NOTE | 2025-01-09 16:31 | PN.PCM_ITS ---
History of Present Illness Date of Service: 01/06/25 Chief Complaint: R BKA stump wound History of Wound: Arianna Jerry is a 57 y/o female who presents to the wound healing center today for management of a right BKA stump wound. She is accompanied to the appointment today by her daughter who helps to supplement her history and also helps with her wound care. 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 At that time, they explored and washed out proximally in her thigh as well. Subsequently she initially had wound vac placed prior to secondary closure. She reports that the amputation site did ultimately heal fully and she was able to obtain a prosthetic. She had been doing very well with her prosthetic and getting back to work etc. Unfortunately about 1-2 months ago she developed a wound on her amputation stump due to the prosthetic rubbing in this area. She presented to the [facility] ER on 02/26/23 with concern of infection. She was admitted from 02/26-03/01 for IV antibiotics. Wound cultures were positive for staph aureus, blood cultures were negative. She was evaluated by orthopedics at that time as well. XR and CT scan performed during that admission were negative for signs of osteomyelitis. She was discharged with a course of Bactrim and referral here. At home, they have been doing daily dressing changes with iodoform and dry gauze dressing. Her daughter reports it has made significant improvement since her hospital stay. Progress of Wound: Left full-thickness wound status post incision bone cortex with primary closure, left foot Subjective Subjective Patient is a 59-year-old diabetic female presenting to clinic today for evaluation of full-thickness wound with amniotic skin graft substitute secondary to surgical wound dehiscence to the left foot. She was improvement to the wound. She is taking all antibiotics as prescribed. Blood sugars well- controlled. Denies drainage or trauma. Denies constitutional symptoms. No other pedal complaints at this time. Objective Data Objective Data Vital Signs: Vital Signs Temp Pulse Resp BP O2 Del Method 97.3 F L 88 18 121/66 H Room Air 01/06/25 11:13 01/06/25 11:13 01/06/25 11:13 01/06/25 11:13 12/23/24 14:51 Oxygen Delivery Method Room Air Lab / Micro Data Micro: Microbiology 10/08/24 10:25 Wound - Left Foot Gram Stain - Final 10/08/24 10:25 Wound - Left Foot Wound Culture - Final Meth. resistant Staph. aureus Streptococcus agalactiae (B) Physical Exam Narrative Vascular: DP and PT pulses are palpable to the left lower extremity. CFT is brisk. Skin temperature gradient is warm to warm from proximal ankles to distal digits of the left lower extremity. No erythema or proximal streaking. Neurological: Light touch is intact. Protective sensation is diminished. Dermatological: Incision is well coapted with evidence of full-thickness wound to the old ulcer. Full-thickness wound measures 3.3 x 0.5 x 0.3 cm. Wound base is granular with no drainage or malodor. Negative probe to bone. Excisional debridement down to including subcutaneous tissue, fascia and muscle of the full-thickness wound to the left foot done with a number 5 mm dermal curette without incident. Predebridement measurement is 3.0 x 0.3 x 0.1 cm.. Postdebridement measurement is 3.3 x 0.5 x 0.3 cm. Epi Cord 2.0 x 3.0 cm graft was applied to the left full-thickness ulceration with 100% use. Third application. The graft site was free and clear of any infection. The wound/skin graft substitute was dressed with nonadherent bandage secured in place with Steri-Strips followed by bolster dressing as well as a single layer Tubigrip. Musculoskeletal: No pain on palpation to full-thickness wound left foot. No pain with calf compression. Debridement Note Debridement Note Debridement Free Text: Excisional debridement down to including subcutaneous tissue, fascia and muscle of the full-thickness wound to the left foot done with a number 5 mm dermal curette without incident. Predebridement measurement is 3.0 x 0.3 x 0.1 cm.. Postdebridement measurement is 3.3 x 0.5 x 0.3 cm. Epi Cord 2.0 x 3.0 cm graft was applied to the left full-thickness ulceration w ith 100% use. Third application. The graft site was free and clear of any infection. The wound/skin graft substitute was dressed with nonadherent bandage secured in place with Steri-Strips followed by bolster dressing as well as a single layer Tubigrip. Post-Debridement Measurements and Additional Note: Post-Debridement Measurements/Treatment WC - Nurse 1 - General Ulcer Assessment Start: 12/16/24 13:51 Freq: Status: Active Protocol: [email or web address] Activity Type Activity Date Activity User E-sign Co-sign Detail Recorded Client Recorded Date Recorded By Document 12/16/24 13:51 GM [id number] 12/16/24 13:53 GM Document 12/23/24 14:51 GM [id number] 12/23/24 14:53 GM Document 12/30/24 13:50 RB [id number] 12/30/24 13:52 RB Document 01/06/25 11:13 RB [id number] 01/06/25 11:23 RB 12/16/24 12/23/24 12/30/24 13:51 14:51 13:50 - Today's Visit Information Type of service Follow-up Visit Follow-up Visit Follow-up Visit (Physician/COLLAR TRIMMER (Physician/COLLAR TRIMMER (Physician/COLLAR TRIMMER ) ) ) Arrival Mode Ambulatory Wheelchair Ambulatory Transfer Assistance None None None Patient Identification Verified (Name & Yes Yes Yes ) Patient Requires Transmission-Based No Precautions Vital Signs Temperature (97.8 F-99.1 F) 97.3 F L 97.3 F L 97.9 F Temperature Source Temporal Temporal Temporal Pulse Rate (60-100) 83 93 87 Pulse Location Monitor Monitor Monitor Respiratory Rate (12-18) 18 18 18 Respiratory rate source Observation Observation Observation Oxygen Delivery Method Room Air Room Air Blood Pressure (90/60-120/80) 113/61 128/76 H 150/71 H Blood Pressure Mean (mm Hg) 78 93 97 Source Monitor Monitor Monitor Position Sitting Sitting Semi-Fowlers Blood Pressure Location Right Arm Right Arm Left Arm History Since Last Visit- (Skip if this is Patient's initial visit) Have you changed medications since your No No No last visit? Any new allergies or adverse reactions No No No Had a fall/change in ADL's that may No No No increase risk of falls Signs or symptoms of abuse and/or No No No neglect since last visit Have you been in the hospital since your No No No last visit? Has dressing in place as prescribed Yes Yes Yes Has compression in place as prescribed Yes Yes Yes Has offloadiing in place as prescribed Yes Yes N/A Experienced any changes in pain level or No No No management Left Footwear Surgical Shoe with pressure relief insole Right Footwear Pain Scale: 0-10 Numeric Is Patient Pain Free? Yes Yes Yes 01/06/25 11:13 - Today's Visit Information Type of service Follow-up Visit (Physician/COLLAR TRIMMER ) Arrival Mode Wheelchair Transfer Assistance Manual Patient Identification Verified (Name & Yes ) Patient Requires Transmission-Based No Precautions Vital Signs Temperature (97.8 F-99.1 F) 97.3 F L Temperature Source Temporal Pulse Rate (60-100) 88 Pulse Location Monitor Respiratory Rate (12-18) 18 Respiratory rate source Observation Oxygen Delivery Method Blood Pressure (90/60-120/80) 121/66 H Blood Pressure Mean (mm Hg) 84 Source Monitor Position Semi-Fowlers Blood Pressure Location Left Arm History Since Last Visit- (Skip if this is Patient's initial visit) Have you changed medications since your No last visit? Any new allergies or adverse reactions No Had a fall/change in ADL's that may No increase risk of falls Signs or symptoms of abuse and/or No neglect since last visit Have you been in the hospital since your No last visit? Has dressing in place as prescribed Yes Has compression in place as prescribed Yes Has offloadiing in place as prescribed Yes Experienced any changes in pain level or No management Left Footwear Surgical Shoe with pressure relief insole Right Footwear Regular Shoe Pain Scale: 0-10 Numeric Is Patient Pain Free? Yes - Nurse 1 - General Ulcer Measurement Start: 12/16/24 13:51 Freq: Status: Active Protocol: Activity Type Activity Date Activity User E-sign Co-sign Detail Recorded Client Recorded Date Recorded By Document 12/16/24 13:51 [id number] 12/16/24 13:53 Document 12/23/24 14:51 [id number] 12/23/24 14:53 Document 12/30/24 13:50 RB [id number] 12/30/24 13:52 RB Document 01/06/25 11:13 RB [id number] 01/06/25 11:23 RB 12/16/24 12/23/24 12/30/24 13:51 14:51 13:50 Wound Center Nurse 1 #3 LT LAT FT -Combined with other wound No -Current Size (cm) - Length 0.1 0.1 0.1 -Current Size (cm) - Width 0.1 0.1 0.1 -Current Size (cm) - Depth 0.1 0.1 0.1 -Total Square Cm 0.01 0.01 0.01 -Date of Last Picture (Recall this 12/16/24 field) -Photo Taken Yes No Yes -Epithelialization None Present -Tunneling No No -Undermining/Tunneling No No -Circular Undermining No No -Exudate Amt Small Large -Exudate Type Yellow/Green Serosanguineous -Wound Margin Distinct, Distinct, Outline Outline Attached Attached -Granulation Amt Medium (34-66%) Medium (34-66%) -Granulation Quality [place] -Slough/Fibrin Yes Yes -Necrosis Amt Small (1-33%) Medium (34-66%) -Necrotic Tissue Type Adherent Slough Adherent Slough -Structure Exposed N/A -Texture (Edwina-wound Skin Appearance) Assessed Assessed -Moisture (Edwina-wound Skin Appearance) Assessed Dry/Scaly -Color (Edwina-wound Skin Appearance) Assessed Assessed -Temperature (Edwina-wound Skin No Abnormality No Abnormality No Abnormality Appearance) (Pt Warm) (Pt Warm) (Pt Warm) -Tenderness on Palpation (Edwina-wound No No No Skin Appearance) -Ulcer Cleansing Soap and Water Rinsed/ Wound Cleanser Irrigated with Saline -Foul Odor after Cleansing No No No -Anesthetic Used 5% Lidocaine 4% Lidocaine Gel Solution -Wound Comment(s) SUTURES INTACT sutures intact Lower Limb Edema Present Left Calf (cm) Left Ankle (cm) 01/06/25 11:13 Wound Center Nurse 1 #3 LT LAT FT -Combined with other wound No -Current Size (cm) - Length 2.0 -Current Size (cm) - Width 0.6 -Current Size (cm) - Depth 0.1 -Total Square Cm 1.20 -Date of Last Picture (Recall this field) -Photo Taken Yes -Epithelialization -Tunneling No -Undermining/Tunneling No -Circular Undermining No -Exudate Amt Small -Exudate Type Serosanguineous -Wound Margin Distinct, Outline Attached -Granulation Amt Large (67-100%) -Granulation Quality [place] -Slough/Fibrin -Necrosis Amt None Present (0 %) -Necrotic Tissue Type Adherent Slough -Structure Exposed None/Limited to Skin Breakdown -Texture (Edwina-wound Skin Appearance) No Abnormality, Assessed -Moisture (Edwina-wound Skin Appearance) Assessed,Dry/ Scaly -Color (Edwina-wound Skin Appearance) No Abnormality, Assessed -Temperature (Edwina-wound Skin No Abnormality Appearance) (Pt Warm) -Tenderness on Palpation (Edwina-wound No Skin Appearance) -Ulcer Cleansing Soap and Water -Foul Odor after Cleansing -Anesthetic Used 4% Lidocaine Solution -Wound Comment(s) 3 sutures in tact Lower Limb Edema Present Yes Left Calf (cm) 27.5 Left Ankle (cm) 17.5 WC - Nurse 2 - General Ulcer CM Notes Start: 12/16/24 13:51 Freq: Status: Active Protocol: Activity Type Activity Date Activity User E-sign Co-sign Detail Recorded Client Recorded Date Recorded By Document 12/16/24 14:03 [id number] 12/16/24 14:07 Edit Result 12/16/24 14:03 JF (1) [id number] 12/16/24 14:21 Document 12/23/24 15:06 [id number] 12/23/24 15:09 Document 12/30/24 13:59 [id number] 12/30/24 14:04 Document 01/06/25 11:45 [id number] 01/06/25 11:48 (1) #3 LT LAT FT - Post Debridement (cm) - Width 0.5 => 1.0 - Total Square (Post) (cm) 0.75 => 1.50 - Area of Debridement (cm) - Width 0.5 => 1.0 - Total Square (Area) (cm) 0.75 => 1.50 12/16/24 12/23/24 12/30/24 14:03 15:06 13:59 Wound Center Nurse 2 #3 LT LAT FT -Time 14:03 15:07 14:00 -Correct Patient Yes Yes Yes -Correct Side, Site, Position Yes Yes Yes -Correct Procedure Yes Yes Yes -Procedure Performed Yes Yes Yes -Type of Procedure Debridement Debridement Debridement -Clinical Debridement Muscle / Fascia Muscle / Fascia Muscle / Fascia -Tissue Removed Muscle Muscle Muscle -Post Debridement (cm) - Length 1.5 2.7 3.7 -Post Debridement (cm) - Width 1.0 1.0 0.8 -Post Debridement (cm) - Depth 1.0 0.7 0.9 -Total Square (Post) (cm) 1.50 2.70 2.96 -Area of Debridement (cm) - Length 1.5 2.7 3.7 -Area of Debridement (cm) - Width 1.0 1.0 0.8 -Total Square (Area) (cm) 1.50 2.70 2.96 -Tunneling No No No -Undermining/Tunneling No No No -Circular Undermining No No No -Wound/Ulcer Outcome Not Healed Not Healed Not Healed -Ulcer Cleansing Rinsed/ Rinsed/ Rinsed/ Irrigated with Irrigated with Irrigated with Saline Saline Saline -Foul Odor after Cleansing No No No -Bioengineered Tissue No Yes Yes -Type of Bioengineered Tissue Epicord Epicord -Expiration Date 04/18/29 03/18/29 -Product Lot Number [id number] -Percent Used 100 100 -Lot number of Saline Used [id number] -Bleeding Controlled with Pressure Pressure Pressure -Treatment Response Procedure Procedure Tolerated Well Tolerated Well -Offloading Yes Yes Yes -Type of Offloading Surgical Shoe Surgical Shoe Surgical Shoe -Debridement - Subq, 1st 20sq cm -Debridement - Muscle / Fascia, 1st Yes No No 20sq cm -Apply Skin Sub - 1st 25 sq cm - Feet 1 1 -Epicord Application 1-4 (per sq cm) 6 6 Pain Scale: 0-10 Numeric Is Patient Pain Free? Yes Yes Yes 01/06/25 11:45 Wound Center Nurse 2 #3 LT LAT FT -Time 11:45 -Correct Patient Yes -Correct Side, Site, Position Yes -Correct Procedure Yes -Procedure Performed Yes -Type of Procedure Debridement -Clinical Debridement Subcutaneous -Tissue Removed Subcutaneous -Post Debridement (cm) - Length 3.3 -Post Debridement (cm) - Width 0.5 -Post Debridement (cm) - Depth 0.3 -Total Square (Post) (cm) 1.65 -Area of Debridement (cm) - Length 3.3 -Area of Debridement (cm) - Width 0.5 -Total Square (Area) (cm) 1.65 -Tunneling No -Undermining/Tunneling No -Circular Undermining No -Wound/Ulcer Outcome Not Healed -Ulcer Cleansing Rinsed/ Irrigated with Saline -Foul Odor after Cleansing No -Bioengineered Tissue Yes -Type of Bioengineered Tissue Epicord -Expiration Date 03/18/29 -Product Lot Number [id number] -Percent Used 100 -Lot number of Saline Used [id number] -Bleeding Controlled with Pressure -Treatment Response Procedure Tolerated Well -Offloading Yes -Type of Offloading Surgical Shoe -Debridement - Subq, 1st 20sq cm No -Debridement - Muscle / Fascia, 1st 20sq cm -Apply Skin Sub - 1st 25 sq cm - Feet 1 -Epicord Application 1-4 (per sq cm) 6 Pain Scale: 0-10 Numeric Is Patient Pain Free? Yes - Nurse 3 - General Ulcer D/C NN Start: 12/16/24 13:51 Freq: Status: Active Protocol: Activity Type Activity Date Activity User E-sign Co-sign Detail Recorded Client Recorded Date Recorded By Document 12/16/24 14:22 [id number] 12/16/24 14:22 Document 12/23/24 15:28 [id number] 12/23/24 15:28 Document 12/30/24 14:11 GM [id number] 12/30/24 14:11 Document 01/06/25 12:05 CP [id number] 01/06/25 12:08 CP 12/16/24 12/23/24 12/30/24 14:22 15:28 14:11 Wound Care Center Nurse 3 #3 LT LAT FT -Ulcer Cleansing Not Cleansed Not Cleansed Not Cleansed -Foul Odor after Cleansing No No No -Primary Dressing Applied Other -Other Dressing ABD pad -Primary Dressing Covered/Secured with Dry Gauze & Dry Gauze,Dry Dry Gauze & Roll Gauze, Gauze & Roll Roll Gauze, Secured with Gauze,Secured Secured with Tape with Tape Tape LLE -Lotion applied to leg before No No No compression wrap -Compression Wrap Dexter Wrap Dexter Wrap Dexter Wrap Pain Scale: 0-10 Numeric Is Patient Pain Free? Yes Yes Yes - Visit Discharge Discharge Condition Stable Stable Stable Ambulatory Status Wheelchair Wheelchair Ambulatory Transportation Private Auto Private Auto Private Auto Clinical Summary of Care Provided 01/06/25 12:05 Wound Care Center Nurse 3 #3 LT LAT FT -Ulcer Cleansing -Foul Odor after Cleansing -Primary Dressing Applied -Other Dressing -Primary Dressing Covered/Secured with Dry Gauze & Roll Gauze, Secured with Tape LLE -Lotion applied to leg before compression wrap -Compression Wrap Pain Scale: 0-10 Numeric Is Patient Pain Free? Yes WC - Visit Discharge Discharge Condition Stable Ambulatory Status Wheelchair Transportation Clinical Summary of Care Provided Yes Assessment/Plan Assessment/Plan (1) Non-pressure chronic ulcer of other part of left foot with necrosis of muscle: CODE(S): L97.523 - Non-pressure chronic ulcer of other part of left foot with necrosis of muscle PLAN: Patient was examined and evaluated. All findings were discussed with the patient. All questions were answered to the patient's satisfaction. Excisional debridement down to including subcutaneous tissue, fascia and muscle of the full-thickness wound to the left foot done with a number 5 mm dermal cure tte without incident. Predebridement measurement is 3.0 x 0.3 x 0.1 cm.. Postdebridement measurement is 3.3 x 0.5 x 0.3 cm. Epi Cord 2.0 x 3.0 cm graft was applied to the left full-thickness ulceration with 100% use. Third application. The graft site was free and clear of any infection. The wound/skin graft substitute was dressed with nonadherent bandage secured in place with Steri-Strips followed by bolster dressing as well as a single layer Tubigrip. Educated patient on the importance of smoking sensation. Patient will continue to follow strict blood sugar control. Patient will follow-up in Dr. Otoole in 1 week (2) Chronic painful diabetic polyneuropathy: CODE(S): E11.42 - Type 2 diabetes mellitus with diabetic polyneuropathy
[2025-01-13 13:34] VITALS: BP 131/69; PULSE 96; RESP 16; TEMP 36.1
--- NOTE | 2025-01-13 14:21 | PN.PCM_ITS ---
History of Present Illness Date of Service: 01/13/25 Chief Complaint: R BKA stump wound History of Wound: Arianna Jerry is a 57 y/o female who presents to the wound healing center today for management of a right BKA stump wound. She is accompanied to the appointment today by her daughter who helps to supplement her history and also helps with her wound care. 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 At that time, they explored and washed out proximally in her thigh as well. Subsequently she initially had wound vac placed prior to secondary closure. She reports that the amputation site did ultimately heal fully and she was able to obtain a prosthetic. She had been doing very well with her prosthetic and getting back to work etc. Unfortunately about 1-2 months ago she developed a wound on her amputation stump due to the prosthetic rubbing in this area. She presented to the [facility] ER on 02/26/23 with concern of infection. She was admitted from 02/26-03/01 for IV antibiotics. Wound cultures were positive for staph aureus, blood cultures were negative. She was evaluated by orthopedics at that time as well. XR and CT scan performed during that admission were negative for signs of osteomyelitis. She was discharged with a course of Bactrim and referral here. At home, they have been doing daily dressing changes with iodoform and dry gauze dressing. Her daughter reports it has made significant improvement since her hospital stay. Progress of Wound: Left full-thickness wound status post incision bone cortex with primary closure, left foot Subjective Subjective Patient is a 59-year-old diabetic female presented to wound care center today follow-up evaluation of full-thickness wound with amniotic skin graft substitute to left foot. She has left the dressing clean dry and intact. Blood sugars well-controlled. She admits to improvement to the wound. Denies trauma. Denies constitutional symptoms. No pedal complaints at this time. Patient states that she only smokes 3 cigarettes/day. Objective Data Objective Data Vital Signs: Vital Signs Temp Pulse Resp BP O2 Del Method 97.0 F L 96 16 131/69 H Room Air 01/13/25 13:34 01/13/25 13:34 01/13/25 13:34 01/13/25 13:34 01/13/25 13:34 Oxygen Delivery Method Room Air Lab / Micro Data Micro: Microbiology 10/08/24 10:25 Wound - Left Foot Gram Stain - Final 10/08/24 10:25 Wound - Left Foot Wound Culture - Final Meth. resistant Staph. aureus Streptococcus agalactiae (B) Physical Exam Narrative Vascular: DP and PT pulses are palpable to the left lower extremity. CFT is brisk. Skin temperature gradient is warm to warm from proximal ankles to distal digits of the left lower extremity. No erythema or proximal streaking. Neurological: Light touch is intact. Protective sensation is diminished. Dermatological: Full-thickness wound measures 3.0 x 0.5 x 0.5 cm. Wound base is granular with no drainage or malodor. Negative probe to bone. Excisional debridement down to including subcutaneous tissue of the full- thickness wound to the left foot done with a number 5 mm dermal curette without incident. Predebridement measurement is 3.0 x 0.3 x 0.1 cm.. Postdebridement measurement is 3.3 x 0.5 x 0.3 cm. Epi Cord 2.0 x 3.0 cm graft was applied to the left full-thickness ulceration with 100% use. Third application. The graft site was free and clear of any infection. The wound/skin graft substitute was dressed with nonadherent bandage secured in place with Steri-Strips followed by bolster dressing as well as a single layer Tubigrip. Musculoskeletal: No pain on palpation to full-thickness wound left foot. No pain with calf compression. Debridement Note Debridement Note Debridement Free Text: Excisional debridement down to including subcutaneous tissue, fascia and muscle of the full-thickness wound to the left foot done with a number 5 mm dermal curette without incident. Predebridement measurement is 3.0 x 0.3 x 0.1 cm.. Postdebridement measurement is 3.3 x 0.5 x 0.3 cm. Epi Cord 2.0 x 3.0 cm graft was applied to the left full-thickness ulceration with 100% use. Third application. The graft site was free and clear of any infection. The wound/skin graft substitute was dressed with nonadherent bandage secured in place with Steri-Strips followed by bolster dressing as well as a single layer Tubigrip. Post-Debridement Measurements and Additional Note: Post-Debridement Measurements/Treatment WC - Nurse 1 - General Ulcer Assessment Start: 12/16/24 13:51 Freq: Status: Active Protocol: WC.LOWEXT Activity Type Activity Date Activity User E-sign Co-sign Detail Recorded Client Recorded Date Recorded By Document 12/16/24 13:51 GM [id number] 12/16/24 13:53 GM Document 12/23/24 14:51 GM [id number] 12/23/24 14:53 GM Document 12/30/24 13:50 RB [id number] 12/30/24 13:52 RB Document 01/06/25 11:13 RB [id number] 01/06/25 11:23 RB Document 01/13/25 13:34 TS [id number] 01/13/25 13:44 TS 12/16/24 12/23/24 12/30/24 13:51 14:51 13:50 WC - Today's Visit Information Type of service Follow-up Visit Follow-up Visit Follow-up Visit (Physician/HOSPICE MUSIC THERAPY (Physician/HOSPICE MUSIC THERAPY (Physician/HOSPICE MUSIC THERAPY ) ) ) Arrival Mode Ambulatory Wheelchair Ambulatory Transfer Assistance None None None Patient Identification Verified (Name & Yes Yes Yes ) Patient Requires Transmission-Based No Precautions Safety Precautions Vital Signs Temperature (97.8 F-99.1 F) 97.3 F L 97.3 F L 97.9 F Temperature Source Temporal Temporal Temporal Pulse Rate (60-100) 83 93 87 Pulse Location Monitor Monitor Monitor Respiratory Rate (12-18) 18 18 18 Respiratory rate source Observation Observation Observation Oxygen Delivery Method Room Air Room Air Blood Pressure (90/60-120/80) 113/61 128/76 H 150/71 H Blood Pressure Mean (mm Hg) 78 93 97 Source Monitor Monitor Monitor Position Sitting Sitting Semi-Fowlers Blood Pressure Location Right Arm Right Arm Left Arm History Since Last Visit- (Skip if this is Patient's initial visit) Have you changed medications since your No No No last visit? Any new allergies or adverse reactions No No No Had a fall/change in ADL's that may No No No increase risk of falls Signs or symptoms of abuse and/or No No No neglect since last visit Have you been in the hospital since your No No No last visit? Has dressing in place as prescribed Yes Yes Yes Has compression in place as prescribed Yes Yes Yes Has offloadiing in place as prescribed Yes Yes N/A Experienced any changes in pain level or No No No management Left Footwear Surgical Shoe with pressure relief insole Right Footwear Pain Scale: 0-10 Numeric Is Patient Pain Free? Yes Yes Yes 01/06/25 01/13/25 11:13 13:34 - Today's Visit Information Type of service Follow-up Visit Follow-up Visit (Physician/HOSPICE MUSIC THERAPY (Physician/HOSPICE MUSIC THERAPY ) ) Arrival Mode Wheelchair Ambulatory Transfer Assistance Manual Patient Identification Verified (Name & Yes Yes ) Patient Requires Transmission-Based No No Precautions Safety Precautions Fall Prevention Vital Signs Temperature (97.8 F-99.1 F) 97.3 F L 97.0 F L Temperature Source Temporal Temporal Pulse Rate (60-100) 88 96 Pulse Location Monitor Monitor Respiratory Rate (12-18) 18 16 Respiratory rate source Observation Observation Oxygen Delivery Method Room Air Blood Pressure (90/60-120/80) 121/66 H 131/69 H Blood Pressure Mean (mm Hg) 84 89 Source Monitor Monitor Position Semi-Fowlers Blood Pressure Location Left Arm Left Arm History Since Last Visit- (Skip if this is Patient's initial visit) Have you changed medications since your No No last visit? Any new allergies or adverse reactions No No Had a fall/change in ADL's that may No No increase risk of falls Signs or symptoms of abuse and/or No neglect since last visit Have you been in the hospital since your No No last visit? Has dressing in place as prescribed Yes No Has compression in place as prescribed Yes N/A Has offloadiing in place as prescribed Yes N/A Experienced any changes in pain level or No No management Left Footwear Surgical Shoe Regular Shoe with pressure relief insole Right Footwear Regular Shoe Surgical Shoe with pressure relief insole Pain Scale: 0-10 Numeric Is Patient Pain Free? Yes Yes - Nurse 1 - General Ulcer Measurement Start: 12/16/24 13:51 Freq: Status: Active Protocol: Activity Type Activity Date Activity User E-sign Co-sign Detail Recorded Client Recorded Date Recorded By Document 12/16/24 13:51 [id number] 12/16/24 13:53 Document 12/23/24 14:51 GM [id number] 12/23/24 14:53 GM Document 12/30/24 13:50 RB [id number] 12/30/24 13:52 RB Document 01/06/25 11:13 RB [id number] 01/06/25 11:23 RB Document 01/13/25 13:34 TS [id number] 01/13/25 13:44 TS 12/16/24 12/23/24 12/30/24 13:51 14:51 13:50 Wound Center Nurse 1 #3 LT LAT FT -Combined with other wound No -Current Size (cm) - Length 0.1 0.1 0.1 -Current Size (cm) - Width 0.1 0.1 0.1 -Current Size (cm) - Depth 0.1 0.1 0.1 -Total Square Cm 0.01 0.01 0.01 -Date of Last Picture (Recall this 12/16/24 field) -Photo Taken Yes No Yes -Epithelialization None Present -Tunneling No No -Undermining/Tunneling No No -Circular Undermining No No -Exudate Amt Small Large -Exudate Type Yellow/Green Serosanguineous -Wound Margin Distinct, Distinct, Outline Outline Attached Attached -Granulation Amt Medium (34-66%) Medium (34-66%) -Granulation Quality [place] -Slough/Fibrin Yes Yes -Necrosis Amt Small (1-33%) Medium (34-66%) -Necrotic Tissue Type Adherent Slough Adherent Slough -Structure Exposed N/A -Texture (Edwina-wound Skin Appearance) Assessed Assessed -Moisture (Edwina-wound Skin Appearance) Assessed Dry/Scaly -Color (Edwina-wound Skin Appearance) Assessed Assessed -Temperature (Edwina-wound Skin No Abnormality No Abnormality No Abnormality Appearance) (Pt Warm) (Pt Warm) (Pt Warm) -Tenderness on Palpation (Edwina-wound No No No Skin Appearance) -Ulcer Cleansing Soap and Water Rinsed/ Wound Cleanser Irrigated with Saline -Foul Odor after Cleansing No No No -Anesthetic Used 5% Lidocaine 4% Lidocaine Gel Solution -Wound Comment(s) SUTURES INTACT sutures intact Lower Limb Edema Present Left Calf (cm) Left Ankle (cm) 01/06/25 01/13/25 11:13 13:34 Wound Center Nurse 1 #3 LT LAT FT -Combined with other wound No -Current Size (cm) - Length 2.0 3 -Current Size (cm) - Width 0.6 0.5 -Current Size (cm) - Depth 0.1 0.1 -Total Square Cm 1.20 1.5 -Date of Last Picture (Recall this 01/13/25 field) -Photo Taken Yes Yes -Epithelialization Medium 34-66% -Tunneling No No -Undermining/Tunneling No No -Circular Undermining No No -Exudate Amt Small None Present -Exudate Type Serosanguineous -Wound Margin Distinct, Distinct, Outline Outline Attached Attached -Granulation Amt Large (67-100%) Medium (34-66%) -Granulation Quality [place] -Slough/Fibrin -Necrosis Amt None Present (0 None Present (0 %) %) -Necrotic Tissue Type Adherent Slough -Structure Exposed None/Limited to None/Limited to Skin Breakdown Skin Breakdown -Texture (Edwina-wound Skin Appearance) No Abnormality, Assessed Assessed -Moisture (Edwina-wound Skin Appearance) Assessed,Dry/ Assessed Scaly -Color (Edwina-wound Skin Appearance) No Abnormality, Assessed Assessed -Temperature (Edwina-wound Skin No Abnormality No Abnormality Appearance) (Pt Warm) (Pt Warm) -Tenderness on Palpation (Edwina-wound No No Skin Appearance) -Ulcer Cleansing Soap and Water Soap and Water -Foul Odor after Cleansing No -Anesthetic Used 4% Lidocaine 5% Lidocaine Solution Gel -Wound Comment(s) 3 sutures in tact Lower Limb Edema Present Yes Left Calf (cm) 27.5 Left Ankle (cm) 17.5 WC - Nurse 2 - General Ulcer CM Notes Start: 12/16/24 13:51 Freq: Status: Active Protocol: Activity Type Activity Date Activity User E-sign Co-sign Detail Recorded Client Recorded Date Recorded By Document 12/16/24 14:03 [id number] 12/16/24 14:07 Edit Result 12/16/24 14:03 JF (1) [id number] 12/16/24 14:21 Document 12/23/24 15:06 [id number] 12/23/24 15:09 Document 12/30/24 13:59 [id number] 12/30/24 14:04 Document 01/06/25 11:45 JF [id number] 01/06/25 11:48 Document 01/13/25 14:00 [id number] 01/13/25 14:04 JF (1) #3 LT LAT FT - Post Debridement (cm) - Width 0.5 => 1.0 - Total Square (Post) (cm) 0.75 => 1.50 - Area of Debridement (cm) - Width 0.5 => 1.0 - Total Square (Area) (cm) 0.75 => 1.50 12/16/24 12/23/24 12/30/24 14:03 15:06 13:59 Wound Center Nurse 2 #3 LT LAT FT -Time 14:03 15:07 14:00 -Correct Patient Yes Yes Yes -Correct Side, Site, Position Yes Yes Yes -Correct Procedure Yes Yes Yes -Procedure Performed Yes Yes Yes -Type of Procedure Debridement Debridement Debridement -Clinical Debridement Muscle / Fascia Muscle / Fascia Muscle / Fascia -Tissue Removed Muscle Muscle Muscle -Post Debridement (cm) - Length 1.5 2.7 3.7 -Post Debridement (cm) - Width 1.0 1.0 0.8 -Post Debridement (cm) - Depth 1.0 0.7 0.9 -Total Square (Post) (cm) 1.50 2.70 2.96 -Area of Debridement (cm) - Length 1.5 2.7 3.7 -Area of Debridement (cm) - Width 1.0 1.0 0.8 -Total Square (Area) (cm) 1.50 2.70 2.96 -Tunneling No No No -Undermining/Tunneling No No No -Circular Undermining No No No -Wound/Ulcer Outcome Not Healed Not Healed Not Healed -Ulcer Cleansing Rinsed/ Rinsed/ Rinsed/ Irrigated with Irrigated with Irrigated with Saline Saline Saline -Foul Odor after Cleansing No No No -Bioengineered Tissue No Yes Yes -Type of Bioengineered Tissue Epicord Epicord -Expiration Date 04/18/29 03/18/29 -Product Lot Number [id number] -Percent Used 100 100 -Lot number of Saline Used [id number] -Bleeding Controlled with Pressure Pressure Pressure -Treatment Response Procedure Procedure Tolerated Well Tolerated Well -Offloading Yes Yes Yes -Type of Offloading Surgical Shoe Surgical Shoe Surgical Shoe -Debridement - Subq, 1st 20sq cm -Debridement - Muscle / Fascia, 1st Yes No No 20sq cm -Apply Skin Sub - 1st 25 sq cm - Feet 1 1 -Epicord Application 1-4 (per sq cm) 6 6 Pain Scale: 0-10 Numeric Is Patient Pain Free? Yes Yes Yes 01/06/25 01/13/25 11:45 14:00 Wound Center Nurse 2 #3 [facility] FT -Time 11:45 14:00 -Correct Patient Yes Yes -Correct Side, Site, Position Yes Yes -Correct Procedure Yes Yes -Procedure Performed Yes Yes -Type of Procedure Debridement Debridement -Clinical Debridement Subcutaneous Subcutaneous -Tissue Removed Subcutaneous Subcutaneous -Post Debridement (cm) - Length 3.3 3.0 -Post Debridement (cm) - Width 0.5 0.5 -Post Debridement (cm) - Depth 0.3 0.5 -Total Square (Post) (cm) 1.65 1.50 -Area of Debridement (cm) - Length 3.3 3.0 -Area of Debridement (cm) - Width 0.5 0.5 -Total Square (Area) (cm) 1.65 1.50 -Tunneling No No -Undermining/Tunneling No No -Circular Undermining No No -Wound/Ulcer Outcome Not Healed Not Healed -Ulcer Cleansing Rinsed/ Rinsed/ Irrigated with Irrigated with Saline Saline -Foul Odor after Cleansing No No -Bioengineered Tissue Yes Yes -Type of Bioengineered Tissue Epicord Epicord -Expiration Date 03/18/29 06/16/29 -Product Lot Number [id number] -Percent Used 100 100 -Lot number of Saline Used [id number] -Bleeding Controlled with Pressure Pressure -Treatment Response Procedure Procedure Tolerated Well Tolerated Well -Offloading Yes Yes -Type of Offloading Surgical Shoe Surgical Shoe -Debridement - Subq, 1st 20sq cm No No -Debridement - Muscle / Fascia, 1st 20sq cm -Apply Skin Sub - 1st 25 sq cm - Feet 1 1 -Epicord Application 1-4 (per sq cm) 6 6 Pain Scale: 0-10 Numeric Is Patient Pain Free? Yes Yes - Nurse 3 - General Ulcer D/C NN Start: 12/16/24 13:51 Freq: Status: Active Protocol: Activity Type Activity Date Activity User E-sign Co-sign Detail Recorded Client Recorded Date Recorded By Document 12/16/24 14:22 [id number] 12/16/24 14:22 Document 12/23/24 15:28 [id number] 12/23/24 15:28 Document 12/30/24 14:11 [id number] 12/30/24 14:11 Document 01/06/25 12:05 [id number] 01/06/25 12:08 CP Document 01/13/25 14:13 [id number] 01/13/25 14:13 12/16/24 12/23/24 12/30/24 14:22 15:28 14:11 Wound Care Center Nurse 3 #3 LT LAT FT -Ulcer Cleansing Not Cleansed Not Cleansed Not Cleansed -Foul Odor after Cleansing No No No -Primary Dressing Applied Other -Other Dressing ABD pad -Primary Dressing Covered/Secured with Dry Gauze & Dry Gauze,Dry Dry Gauze & Roll Gauze, Gauze & Roll Roll Gauze, Secured with Gauze,Secured Secured with Tape with Tape Tape LLE -Lotion applied to leg before No No No compression wrap -Compression Wrap Dexter Wrap Dexter Wrap Dexter Wrap Pain Scale: 0-10 Numeric Is Patient Pain Free? Yes Yes Yes WC - Visit Discharge Discharge Condition Stable Stable Stable Ambulatory Status Wheelchair Wheelchair Ambulatory Transportation Private Auto Private Auto Private Auto Clinical Summary of Care Provided 01/06/25 01/13/25 12:05 14:13 Wound Care Center Nurse 3 #3 LT LAT FT -Ulcer Cleansing Not Cleansed -Foul Odor after Cleansing No -Primary Dressing Applied -Other Dressing -Primary Dressing Covered/Secured with Dry Gauze & Dry Gauze & Roll Gauze, Roll Gauze, Secured with Secured with Tape Tape LLE -Lotion applied to leg before No compression wrap -Compression Wrap Dexter Wrap Pain Scale: 0-10 Numeric Is Patient Pain Free? Yes Yes WC - Visit Discharge Discharge Condition Stable Stable Ambulatory Status Wheelchair Wheelchair Transportation Private Auto Clinical Summary of Care Provided Yes Assessment/Plan Assessment/Plan (1) Non-pressure chronic ulcer of other part of left foot with necrosis of muscle: CODE(S): L97.523 - Non-pressure chronic ulcer of other part of left foot with necrosis of muscle PLAN: Patient was examined and evaluated. All findings were discussed with the patient. All questions were answered to the patient's satisfaction. Excisional debridement down to including subcutaneous tissue, fascia and muscle of the full-thickness wound to the left foot done with a number 5 mm dermal curette without incident. Predebridement measurement is 3.0 x 0.3 x 0.1 cm.. Postdebridement measurement is 3.3 x 0.5 x 0.3 cm. Epi Cord 2.0 x 3.0 cm graft was applied to the left full-thickness ulceration with 100% use. Third application. The graft site was free and clear of any infection. The wound/skin graft substitute was dressed with nonadherent bandage secured in place with Steri-Strips followed by bolster dressing as well as a single layer Tubigrip. Educated patient on the importance of smoking sensation. Patient will continue to follow strict blood sugar control. Patient will follow-up in Dr. Otoole in 1 week (2) Chronic painful diabetic polyneuropathy: CODE(S): E11.42 - Type 2 diabetes mellitus with diabetic polyneuropathy
--- NOTE | 2025-01-14 11:46 | WC ---
PHOTO-LEFT LATERAL FOOT 01/13/25
== END 2025-01-15 23:59 | disposition home or self-care (01) ==
LOC: WC 13:15
PROVIDERS: PCP Family Medicine; Referring Provider Family Medicine; Visit Provider Podiatrist Foot & Ankle Surgery
DX: E11.621 Type 2 diabetes mellitus with foot ulcer (principal); L97.523 Non-pressure chronic ulcer of other part of left foot with necrosis of muscle; Z89.511 Acquired absence of right leg below knee; E11.42 Type 2 diabetes mellitus with diabetic polyneuropathy; F17.210 Nicotine dependence, cigarettes, uncomplicated; T81.31XA Disruption of external operation (surgical) wound, not elsewhere classified, initial encounter; Y83.9 Surgical procedure, unspecified as the cause of abnormal reaction of the patient, or of later complication, without mention of misadventure at the time of the procedure
CPT/HCPCS: 11043; 15275; Q4187

== ENCOUNTER 2025-02-03 13:45 | Outpatient (RCR) | payer MEDICARE, SELFPAY ==
[2025-01-20 13:04] VITALS: BP 129/79; PULSE 92; RESP 174; TEMP 35.8
--- NOTE | 2025-01-20 15:07 | PCM.WC.PN ---
History of Present Illness Date of Service: 01/20/25 Chief Complaint: R BKA stump wound History of Wound: Arianna Jerry is a 57 y/o female who presents to the wound healing center today for management of a right BKA stump wound. She is accompanied to the appointment today by her daughter who helps to supplement her history and also helps with her wound care. 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 At that time, they explored and washed out proximally in her thigh as well. Subsequently she initially had wound vac placed prior to secondary closure. She reports that the amputation site did ultimately heal fully and she was able to obtain a prosthetic. She had been doing very well with her prosthetic and getting back to work etc. Unfortunately about 1-2 months ago she developed a wound on her amputation stump due to the prosthetic rubbing in this area. She presented to the [facility] ER on 02/26/23 with concern of infection. She was admitted from 02/26-03/01 for IV antibiotics. Wound cultures were positive for staph aureus, blood cultures were negative. She was evaluated by orthopedics at that time as well. XR and CT scan performed during that admission were negative for signs of osteomyelitis. She was discharged with a course of Bactrim and referral here. At home, they have been doing daily dressing changes with iodoform and dry gauze dressing. Her daughter reports it has made significant improvement since her hospital stay. Progress of Wound: Stable full-thickness wound with amnion skin graft substitute left foot Subjective Subjective Patient is a 59-year-old diabetic female presenting to wound care center today follow-up evaluation of full-thickness wound amnio skin graft substitute to left lower extremity. She has left the dressing clean dry intact. She has reduced her smoking. Her blood sugars well-controlled. She overall she is doing well and grateful for her care. Denies trauma. Denies constitutional symptoms. No other pedal complaints at this time. Objective Data Objective Data Vital Signs: Vital Signs Temp Pulse Resp BP O2 Del Method 96.5 F L 92 174 H 129/79 H Room Air 01/20/25 13:04 01/20/25 13:04 01/20/25 13:04 01/20/25 13:04 01/20/25 13:04 Oxygen Delivery Method Room Air Lab / Micro Data Micro: Microbiology 10/08/24 10:25 Wound - Left Foot Gram Stain - Final 10/08/24 10:25 Wound - Left Foot Wound Culture - Final Meth. resistant Staph. aureus Streptococcus agalactiae (B) Physical Exam Narrative Vascular: DP and PT pulses are palpable to the left lower extremity. CFT is brisk. Skin temperature gradient is warm to warm from proximal ankles to distal digits of the left lower extremity. No erythema or proximal streaking. Neurological: Light touch is intact. Protective sensation is diminished. Dermatological: Full-thickness wound measures 1.3 x 0.3 x 0.3 cm. Wound base is granular with no drainage or malodor. Negative probe to bone. Excisional debridement down to including subcutaneous tissue of the full-thickness wound to the left foot done with a number 5 mm dermal curette without incident. Predebridement measurement is sanguinous crust. Postdebridement measurement is 1.3 x 0.3 x 0.3 cm. EpiFix 18 mm disc graft was applied to the left full-thickness ulceration with 100% use. Fifth application. The graft site was free and clear of any infection. The wound/skin graft substitute was dressed with nonadherent bandage secured in place with Steri-Strips followed by bolster dressing as well as a single layer Tubigrip. Musculoskeletal: No pain on palpation to full-thickness wound left foot. No pain with calf compression. Debridement Note Debridement Note Debridement Free Text: Excisional debridement down to including subcutaneous tissue of the full-thickness wound to the left foot done with a number 5 mm dermal curette without incident. Predebridement measurement is sanguinous crust. Postdebridement measurement is 1.3 x 0.3 x 0.3 cm. EpiFix 18 mm disc graft was applied to the left full-thickness ulceration with 100% use. Fifth application. The graft site was free and clear of any infection. The wound/skin graft substitute was dressed with nonadherent bandage secured in place with Steri-Strips followed by bolster dressing as well as a single layer Tubigrip. Post-Debridement Measurements and Additional Note: Post-Debridement Measurements/Treatment SUE - Nurse 1 - General Ulcer Assessment Start: 01/20/25 13:04 Freq: Status: Active Protocol: APRIL Activity Type Activity Date Activity User E-sign Co-sign Detail Recorded Client Recorded Date Recorded By Document 01/20/25 13:04 TS [id number] 01/20/25 13:10 01/20/25 13:04 WC - Today's Visit Information Type of service Follow-up Visit (Physician/FRAME WIRER ) Arrival Mode Wheelchair Patient Identification Verified (Name & Yes ) Safety Precautions Fall Prevention Vital Signs Temperature (97.8 F-99.1 F) 96.5 F L Temperature Source Temporal Pulse Rate (60-100) 92 Pulse Location Monitor Respiratory Rate (12-18) 174 H Respiratory rate source Observation Oxygen Delivery Method Room Air Blood Pressure (90/60-120/80) 129/79 H Blood Pressure Mean (mm Hg) 95 Source Monitor Position Sitting Blood Pressure Location Left Arm History Since Last Visit- (Skip if this is Patient's initial visit) Have you changed medications since your No last visit? Any new allergies or adverse reactions No Had a fall/change in ADL's that may No increase risk of falls Signs or symptoms of abuse and/or No neglect since last visit Have you been in the hospital since your No last visit? Has dressing in place as prescribed Yes Has compression in place as prescribed N/A Has offloadiing in place as prescribed N/A Experienced any changes in pain level or No management Left Footwear Regular Shoe Right Footwear Regular Shoe Pain Scale: 0-10 Numeric Is Patient Pain Free? Yes - Nurse 1 - General Ulcer Measurement Start: 01/20/25 13:04 Freq: Status: Active Protocol: Activity Type Activity Date Activity User E-sign Co-sign Detail Recorded Client Recorded Date Recorded By Document 01/20/25 13:04 TS [id number] 01/20/25 13:10 01/20/25 13:04 Wound Center Nurse 1 #3 LT LAT FT -Combined with other wound No -Current Size (cm) - Length 3 -Current Size (cm) - Width 0.4 -Current Size (cm) - Depth 0.2 -Total Square Cm 1.2 -Date of Last Picture (Recall this 01/20/25 field) -Photo Taken Yes -Tunneling No -Undermining/Tunneling No -Circular Undermining No -Exudate Amt Medium -Exudate Type Serosanguineous -Wound Margin Distinct, Outline Attached -Granulation Amt Small (1-33%) -Granulation Quality [place],Red -Structure Exposed None/Limited to Skin Breakdown -Texture (Edwina-wound Skin Appearance) Assessed -Moisture (Edwina-wound Skin Appearance) Assessed,Dry/ Scaly -Color (Edwina-wound Skin Appearance) Assessed -Temperature (Edwina-wound Skin No Abnormality Appearance) (Pt Warm) -Ulcer Cleansing Soap and Water -Foul Odor after Cleansing No -Anesthetic Used 5% Lidocaine Gel WC - Nurse 2 - General Ulcer CM Notes Start: 01/20/25 13:04 Freq: Status: Active Protocol: Activity Type Activity Date Activity User E-sign Co-sign Detail Recorded Client Recorded Date Recorded By Document 01/20/25 13:14 ALICIA [id number] 01/20/25 13:18 01/20/25 13:14 Wound Center Nurse 2 -Time 13:14 -Correct Patient Yes -Correct Side, Site, Position Yes -Correct Procedure Yes -Procedure Performed Yes -Type of Procedure Debridement -Clinical Debridement Subcutaneous -Tissue Removed Subcutaneous -Post Debridement (cm) - Length 1.3 -Post Debridement (cm) - Width 0.3 -Post Debridement (cm) - Depth 0.3 -Total Square (Post) (cm) 0.39 -Area of Debridement (cm) - Length 1.3 -Area of Debridement (cm) - Width 0.3 -Total Square (Area) (cm) 0.39 -Tunneling No -Undermining/Tunneling No -Circular Undermining No -Wound/Ulcer Outcome Not Healed -Ulcer Cleansing Rinsed/ Irrigated with Saline -Foul Odor after Cleansing No -Bioengineered Tissue Yes -Type of Bioengineered Tissue Epifix 18mm Disc -Expiration Date 08/16/29 -Product Lot Number [id number] -Percent Used 100 -Lot number of Saline Used [id number] -Bleeding Controlled with Pressure -Treatment Response Procedure Tolerated Well -Offloading Yes -Type of Offloading Surgical Shoe -Debridement - Subq, 1st 20sq cm No -Apply Skin Sub - 1st 25 sq cm - Feet 1 -Epifix 18mm Disc Application 1-4 3 Pain Scale: 0-10 Numeric Is Patient Pain Free? Yes WC - Nurse 3 - General Ulcer D/C NN Start: 01/20/25 13:04 Freq: Status: Active Protocol: Activity Type Activity Date Activity User E-sign Co-sign Detail Recorded Client Recorded Date Recorded By Document 01/20/25 13:25 [id number] 01/20/25 13:26 RB 01/20/25 13:25 Wound Care Center Nurse 3 #3 LT LAT FT -Ulcer Cleansing Rinsed/ Irrigated with Saline -Other Dressing ABD -Primary Dressing Covered/Secured with Dry Gauze & Roll Gauze, Secured with Tape LLE -Compression Wrap Dexter Wrap Treatment Response Procedure Tolerated Well Pain Scale: 0-10 Numeric Is Patient Pain Free? Yes WC - Visit Discharge Discharge Condition Stable Ambulatory Status Wheelchair Transportation Private Auto Medication Reconcilliation completed & No provided to patient/care provider Clinical Summary of Care Provided Yes Assessment/Plan Assessment/Plan (1) Non-pressure chronic ulcer of other part of left foot with necrosis of muscle: CODE(S): L97.523 - Non-pressure chronic ulcer of other part of left foot with necrosis of muscle PLAN: Patient was examined and evaluated. All findings were discussed with the patient. All questions were answered to the patient's satisfaction. Excisional debridement down to including subcutaneous tissue of the full-thickness wound to the left foot done with a number 5 mm dermal curette without incident. Predebridement measurement is sanguinous crust. Postdebridement measurement is 1.3 x 0.3 x 0.3 cm. EpiFix 18 mm disc graft was applied to the left full-thickness ulceration with 100% use. Fifth application. The graft site was free and clear of any infection. The wound/skin graft substitute was dressed with nonadherent bandage secured in place with Steri-Strips followed by bolster dressing as well as a single layer Tubigrip. Educated patient on the importance of smoking sensation. Patient will continue to follow strict blood sugar control. Patient will follow-up in Dr. Otoole in 1 week (2) Chronic painful diabetic polyneuropathy: CODE(S): E11.42 - Type 2 diabetes mellitus with diabetic polyneuropathy
--- NOTE | 2025-01-22 09:16 | WC ---
PHOTO-LEFT LAT FOOT 01/20/25
[2025-01-27 13:07] VITALS: BP 111/63; PULSE 91; RESP 16; TEMP 35.8
--- NOTE | 2025-01-29 15:29 | PN.PCM_ITS ---
History of Present Illness Date of Service: 01/27/25 Chief Complaint: R BKA stump wound History of Wound: Arianna Jerry is a 57 y/o female who presents to the wound healing center today for management of a right BKA stump wound. She is accompanied to the appointment today by her daughter who helps to supplement her history and also helps with her wound care. 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 At that time, they explored and washed out proximally in her thigh as well. Subsequently she initially had wound vac placed prior to secondary closure. She reports that the amputation site did ultimately heal fully and she was able to obtain a prosthetic. She had been doing very well with her prosthetic and getting back to work etc. Unfortunately about 1-2 months ago she developed a wound on her amputation stump due to the prosthetic rubbing in this area. She presented to the [facility] ER on 02/26/23 with concern of infection. She was admitted from 02/26-03/01 for IV antibiotics. Wound cultures were positive for staph aureus, blood cultures were negative. She was evaluated by orthopedics at that time as well. XR and CT scan performed during that admission were negative for signs of osteomyelitis. She was discharged with a course of Bactrim and referral here. At home, they have been doing daily dressing changes with iodoform and dry gauze dressing. Her daughter reports it has made significant improvement since her hospital stay. Progress of Wound: Stable full-thickness wound with amnion skin graft substitute left foot Subjective Subjective Patient is a 59-year-old female presenting to wound care center today follow-up evaluation of full-thickness wound with millimeter skin graft substitute application. Patient has left the graft clean dry and intact. Blood sugar well-controlled. Denies trauma. Denies constitutional symptoms. No other pedal complaints at this time. Objective Data Objective Data Vital Signs: Vital Signs Temp Pulse Resp BP O2 Del Method 96.5 F L 91 16 111/63 Room Air 01/27/25 13:07 01/27/25 13:07 01/27/25 13:07 01/27/25 13:07 01/20/25 13:04 Oxygen Delivery Method Room Air Lab / Micro Data Micro: Microbiology 10/08/24 10:25 Wound - Left Foot Gram Stain - Final 10/08/24 10:25 Wound - Left Foot Wound Culture - Final Meth. resistant Staph. aureus Streptococcus agalactiae (B) Physical Exam Narrative Vascular: DP and PT pulses are palpable to the left lower extremity. CFT is brisk. Skin temperature gradient is warm to warm from proximal ankles to distal digits of the left lower extremity. No erythema or proximal streaking. Neurological: Light touch is intact. Protective sensation is diminished. Dermatological: Full-thickness wound measures 0.5 x 0.2 x 0.2 cm. Wound base is granular with no drainage or malodor. Negative probe to bone. Excisional debridement down to including subcutaneous tissue, fascia and muscle of the full-thickness wound to the left foot done with a number 5 mm dermal curette without incident. Predebridement measurement is sanguinous crust. Postdebridement measurement is 0.5 x 0.2 x 0.2 cm. EpiFix 18 mm disc graft was applied to the left full-thickness ulceration with 100% use. 6th application. The graft site was free and clear of any infection. The wound/skin graft substitute was dressed with nonadherent bandage secured in place with Steri-Strips followed by bolster dressing as well as a single layer Tubigrip. Musculoskeletal: No pain on palpation to full-thickness wound left foot. No pain with calf compression. Debridement Note Debridement Note Debridement Free Text: Excisional debridement down to including subcutaneous tissue of the full-thickness wound to the left foot done with a number 5 mm dermal curette without incident. Predebridement measurement is sanguinous crust. Postdebridement measurement is 1.3 x 0.3 x 0.3 cm. EpiFix 18 mm disc graft was applied to the left full-thickness ulceration with 100% use. Fifth application. The graft site was free and clear of any infection. The wound/skin graft substitute was dressed with nonadherent bandage secured in place with Steri-Strips followed by bolster dressing as well as a single layer Tubigrip. Post-Debridement Measurements and Additional Note: Post-Debridement Measurements/Treatment WC - Nurse 1 - General Ulcer Assessment Start: 01/20/25 13:04 Freq: Status: Active Protocol: TYREEEXGilson Activity Type Activity Date Activity User E-sign Co-sign Detail Recorded Client Recorded Date Recorded By Document 01/20/25 13:04 [id number] 01/20/25 13:10 TS Document 01/27/25 13:07 TS [id number] 01/27/25 13:14 TS 01/20/25 01/27/25 13:04 13:07 - Today's Visit Information Type of service Follow-up Visit Follow-up Visit (Physician/EXPORT SPECIALIST (Physician/EXPORT SPECIALIST ) ) Arrival Mode Wheelchair Wheelchair Patient Identification Verified (Name & Yes Yes ) Safety Precautions Fall Prevention Fall Prevention Vital Signs Temperature (97.8 F-99.1 F) 96.5 F L 96.5 F L Temperature Source Temporal Temporal Pulse Rate (60-100) 92 91 Pulse Location Monitor Monitor Respiratory Rate (12-18) 174 H 16 Respiratory rate source Observation Observation Oxygen Delivery Method Room Air Blood Pressure (90/60-120/80) 129/79 H 111/63 Blood Pressure Mean (mm Hg) 95 79 Source Monitor Monitor Position Sitting Sitting Blood Pressure Location Left Arm Right Arm History Since Last Visit- (Skip if this is Patient's initial visit) Have you changed medications since your No No last visit? Any new allergies or adverse reactions No No Had a fall/change in ADL's that may No No increase risk of falls Signs or symptoms of abuse and/or No No neglect since last visit Have you been in the hospital since your No No last visit? Has dressing in place as prescribed Yes Yes Has compression in place as prescribed N/A N/A Has offloadiing in place as prescribed N/A N/A Experienced any changes in pain level or No No management Left Footwear Regular Shoe Surgical Shoe with pressure relief insole Right Footwear Regular Shoe Regular Shoe Pain Scale: 0-10 Numeric Is Patient Pain Free? Yes Yes - Nurse 1 - General Ulcer Measurement Start: 01/20/25 13:04 Freq: Status: Active Protocol: Activity Type Activity Date Activity User E-sign Co-sign Detail Recorded Client Recorded Date Recorded By Document 01/20/25 13:04 TS [id number] 01/20/25 13:10 TS Document 01/27/25 13:07 TS [id number] 01/27/25 13:14 TS 01/20/25 01/27/25 13:04 13:07 Wound Center Nurse 1 #3 LT LAT FT -Combined with other wound No No -Current Size (cm) - Length 3 1.2 -Current Size (cm) - Width 0.4 0.2 -Current Size (cm) - Depth 0.2 0.1 -Total Square Cm 1.2 0.24 -Date of Last Picture (Recall this 01/20/25 01/27/25 field) -Photo Taken Yes Yes -Tunneling No No -Undermining/Tunneling No No -Circular Undermining No No -Exudate Amt Medium Small -Exudate Type Serosanguineous Serosanguineous -Wound Margin Distinct, Distinct, Outline Outline Attached Attached -Granulation Amt Small (1-33%) Medium (34-66%) -Granulation Quality [place],Red -Slough/Fibrin No -Structure Exposed None/Limited to None/Limited to Skin Breakdown Skin Breakdown -Texture (Edwina-wound Skin Appearance) Assessed Assessed -Moisture (Edwina-wound Skin Appearance) Assessed,Dry/ Assessed Scaly -Color (Edwina-wound Skin Appearance) Assessed Assessed -Temperature (Edwina-wound Skin No Abnormality No Abnormality Appearance) (Pt Warm) (Pt Warm) -Ulcer Cleansing Soap and Water Soap and Water -Foul Odor after Cleansing No No -Anesthetic Used 5% Lidocaine 5% Lidocaine Gel Gel WC - Nurse 2 - General Ulcer CM Notes Start: 01/20/25 13:04 Freq: Status: Active Protocol: Activity Type Activity Date Activity User E-sign Co-sign Detail Recorded Client Recorded Date Recorded By Document 01/20/25 13:14 [id number] 01/20/25 13:18 JF Document 01/27/25 13:19 [id number] 01/27/25 13:21 Edit Result 01/27/25 13:19 JF (1) [id number] 01/27/25 13:22 (1) #3 LT LAT FT - Expiration Date => 08/16/29 - Product Lot Number => [id number] - Percent Used => 100 - Lot number of Saline Used => [id number] - Offloading No => Yes - Type of Offloading => Surgical Shoe 01/20/25 01/27/25 13:14 13:19 Wound Center Nurse 2 #3 LT LAT FT -Time 13:14 13:19 -Correct Patient Yes Yes -Correct Side, Site, Position Yes Yes -Correct Procedure Yes Yes -Procedure Performed Yes Yes -Type of Procedure Debridement Debridement -Clinical Debridement Subcutaneous Subcutaneous -Tissue Removed Subcutaneous Subcutaneous -Post Debridement (cm) - Length 1.3 0.5 -Post Debridement (cm) - Width 0.3 0.2 -Post Debridement (cm) - Depth 0.3 0.2 -Total Square (Post) (cm) 0.39 0.10 -Area of Debridement (cm) - Length 1.3 0.5 -Area of Debridement (cm) - Width 0.3 0.2 -Total Square (Area) (cm) 0.39 0.10 -Tunneling No No -Undermining/Tunneling No No -Circular Undermining No No -Wound/Ulcer Outcome Not Healed Not Healed -Ulcer Cleansing Rinsed/ Rinsed/ Irrigated with Irrigated with Saline Saline -Foul Odor after Cleansing No No -Bioengineered Tissue Yes Yes -Type of Bioengineered Tissue Epifix 18mm Epifix 18mm Disc Disc -Expiration Date 08/16/29 08/16/29 -Product Lot Number [id number] -Percent Used 100 100 -Lot number of Saline Used [id number] -Bleeding Controlled with Pressure Pressure -Treatment Response Procedure Procedure Tolerated Well Tolerated Well -Offloading Yes Yes -Type of Offloading Surgical Shoe Surgical Shoe -Debridement - Subq, 1st 20sq cm No No -Apply Skin Sub - 1st 25 sq cm - Feet 1 1 -Epifix 18mm Disc Application 1-4 3 3 Pain Scale: 0-10 Numeric Is Patient Pain Free? Yes Yes WC - Nurse 3 - General Ulcer D/C NN Start: 01/20/25 13:04 Freq: Status: Active Protocol: Activity Type Activity Date Activity User E-sign Co-sign Detail Recorded Client Recorded Date Recorded By Document 01/20/25 13:25 RB [id number] 01/20/25 13:26 RB Document 01/27/25 13:30 TS [id number] 01/27/25 13:31 TS 01/20/25 01/27/25 13:25 13:30 Wound Care Center Nurse 3 #3 LT LAT FT -Ulcer Cleansing Rinsed/ Irrigated with Saline -Primary Dressing Applied C Hydrogel -Other Dressing ABD abd and kerlix -Primary Dressing Covered/Secured with Dry Gauze & Secured with Roll Gauze, Tape Secured with Tape -Hydrogel 0 LLE -Compression Wrap Dexter Wrap Dexter Wrap Treatment Response Procedure Tolerated Well Pain Scale: 0-10 Numeric Is Patient Pain Free? Yes Yes WC - Visit Discharge Discharge Condition Stable Stable Ambulatory Status Wheelchair Wheelchair Transportation Private Auto Private Auto Accompanied by daughter Medication Reconcilliation completed & No No provided to patient/care provider Clinical Summary of Care Provided Yes Yes Assessment/Plan Assessment/Plan (1) Non-pressure chronic ulcer of other part of left foot with necrosis of muscle: CODE(S): L97.523 - Non-pressure chronic ulcer of other part of left foot with necrosis of muscle PLAN: Patient was examined and evaluated. All findings were discussed with the patient. All questions were answered to the patient's satisfaction. Excisional debridement down to including subcutaneous tissue, fascia and muscle of the full-thickness wound to the left foot done with a number 5 mm dermal curette without incident. Predebridement measurement is sanguinous crust. Postdebridement measurement is 0.5 x 0.2 x 0.2 cm. EpiFix 18 mm disc graft was applied to the left full-thickness ulceration with 100% use. 6th application. The graft site was free and clear of any infection. The wound/skin graft substitute was dressed with nonadherent bandage secured in place with Steri-Strips followed by bolster dressing as well as a single layer Tubigrip. Educated patient on the importance of smoking sensation. Patient will continue to follow strict blood sugar control. Patient will follow-up in Dr. Otoole in 1 week (2) Chronic painful diabetic polyneuropathy: CODE(S): E11.42 - Type 2 diabetes mellitus with diabetic polyneuropathy
[2025-02-03 13:37] VITALS: BP 126/64; PULSE 94; RESP 18; TEMP 36.2
--- NOTE | 2025-02-03 15:45 | PCM.WC.PN ---
History of Present Illness Date of Service: 02/03/25 Chief Complaint: R BKA stump wound History of Wound: Arianna Jerry is a 57 y/o female who presents to the wound healing center today for management of a right BKA stump wound. She is accompanied to the appointment today by her daughter who helps to supplement her history and also helps with her wound care. 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 At that time, they explored and washed out proximally in her thigh as well. Subsequently she initially had wound vac placed prior to secondary closure. She reports that the amputation site did ultimately heal fully and she was able to obtain a prosthetic. She had been doing very well with her prosthetic and getting back to work etc. Unfortunately about 1-2 months ago she developed a wound on her amputation stump due to the prosthetic rubbing in this area. She presented to the [facility] ER on 02/26/23 with concern of infection. She was admitted from 02/26-03/01 for IV antibiotics. Wound cultures were positive for staph aureus, blood cultures were negative. She was evaluated by orthopedics at that time as well. XR and CT scan performed during that admission were negative for signs of osteomyelitis. She was discharged with a course of Bactrim and referral here. At home, they have been doing daily dressing changes with iodoform and dry gauze dressing. Her daughter reports it has made significant improvement since her hospital stay. Progress of Wound: Stable full-thickness wound with amnion skin graft substitute left foot Subjective Subjective Patient is a 59-year-old diabetic female presenting to the wound care center today for evaluation of full-thickness wound with amniotic skin graft substitute to the lateral left foot. She has been compliant with leaving the dressing clean dry and intact. She has really reduced her smoking and has strict blood sugar control. Denies trauma. Denies any pain. Denies constitutional symptoms. No other pedal complaints at this time. Objective Data Objective Data Vital Signs: Vital Signs Temp Pulse Resp BP O2 Del Method 97.1 F L 94 18 126/64 H Room Air 02/03/25 13:37 02/03/25 13:37 02/03/25 13:37 02/03/25 13:37 02/03/25 13:37 Oxygen Delivery Method Room Air Lab / Micro Data Micro: Microbiology 10/08/24 10:25 Wound - Left Foot Gram Stain - Final 10/08/24 10:25 Wound - Left Foot Wound Culture - Final Meth. resistant Staph. aureus Streptococcus agalactiae (B) Physical Exam Narrative Vascular: DP and PT pulses are palpable to the left lower extremity. CFT is brisk. Skin temperature gradient is warm to warm from proximal ankles to distal digits of the left lower extremity. No erythema or proximal streaking. Neurological: Light touch is intact. Protective sensation is diminished. Dermatological: Full-thickness wound measures 0.5 x 0.1 x 0. cm. Wound base is granular with no drainage or malodor. Negative probe to bone. Excisional debridement down to including subcutaneous tissue, fascia and muscle of the full-thickness wound to the left foot done with a number 5 mm dermal curette without incident. Predebridement measurement is sanguinous crust. Postdebridement measurement is 0.5 x 0.1 x 0.1 cm. EpiFix 18 mm disc graft was applied to the left full-thickness ulceration with 100% use. 7th application. The graft site was free and clear of any infection. The wound/skin graft substitute was dressed with nonadherent bandage secured in place with Steri-Strips followed by bolster dressing as well as a single layer Tubigrip. Musculoskeletal: No pain on palpation to full-thickness wound left foot. No pain with calf compression. Debridement Note Debridement Note Debridement Free Text: Excisional debridement down to including subcutaneous tissue, fascia and muscle of the full-thickness wound to the left foot done with a number 5 mm dermal curette without incident. Predebridement measurement is sanguinous crust. Postdebridement measurement is 0.5 x 0.1 x 0.1 cm. EpiFix 18 mm disc graft was applied to the left full-thickness ulceration with 100% use. 7th application. The graft site was free and clear of any infection. The wound/skin graft substitute was dressed with nonadherent bandage secured in place with Steri-Strips followed by bolster dressing as well as a single layer Tubigrip. Post-Debridement Measurements and Additional Note: Post-Debridement Measurements/Treatment SUE - Nurse 1 - General Ulcer Assessment Start: 01/20/25 13:04 Freq: Status: Active Protocol: APRIL Activity Type Activity Date Activity User E-sign Co-sign Detail Recorded Client Recorded Date Recorded By Document 11/05/25 13:04 TS [id number] 01/20/25 13:10 TS Document 01/27/25 13:07 TS [id number] 01/27/25 13:14 TS Document 02/03/25 13:37 RB [id number] 02/03/25 13:41 RB 01/20/25 01/27/25 02/03/25 13:04 13:07 13:37 WC - Today's Visit Information Type of service Follow-up Visit Follow-up Visit Follow-up Visit (Physician/TECHNICAL ASSISTANCE CONSULTANT (Physician/TECHNICAL ASSISTANCE CONSULTANT (Physician/TECHNICAL ASSISTANCE CONSULTANT ) ) ) Arrival Mode Wheelchair Wheelchair Wheelchair Transfer Assistance Manual Patient Identification Verified (Name & Yes Yes Yes ) Patient Requires Transmission-Based No Precautions Safety Precautions Fall Prevention Fall Prevention Vital Signs Temperature (97.8 F-99.1 F) 96.5 F L 96.5 F L 97.1 F L Temperature Source Temporal Temporal Temporal Pulse Rate (60-100) 92 91 94 Pulse Location Monitor Monitor Monitor Respiratory Rate (12-18) 174 H 16 18 Respiratory rate source Observation Observation Observation Oxygen Delivery Method Room Air Room Air Blood Pressure (90/60-120/80) 129/79 H 111/63 126/64 H Blood Pressure Mean (mm Hg) 95 79 84 Source Monitor Monitor Monitor Position Sitting Sitting Semi-Fowlers Blood Pressure Location Left Arm Right Arm Left Arm History Since Last Visit- (Skip if this is Patient's initial visit) Have you changed medications since your No No No last visit? Any new allergies or adverse reactions No No No Had a fall/change in ADL's that may No No No increase risk of falls Signs or symptoms of abuse and/or No No No neglect since last visit Have you been in the hospital since your No No No last visit? Has dressing in place as prescribed Yes Yes Yes Has compression in place as prescribed N/A N/A Yes Has offloadiing in place as prescribed N/A N/A N/A Experienced any changes in pain level or No No No management Left Footwear Regular Shoe Surgical Shoe with pressure relief insole Right Footwear Regular Shoe Regular Shoe Pain Scale: 0-10 Numeric Is Patient Pain Free? Yes Yes Yes - Nurse 1 - General Ulcer Measurement Start: 01/20/25 13:04 Freq: Status: Active Protocol: Activity Type Activity Date Activity User E-sign Co-sign Detail Recorded Client Recorded Date Recorded By Document 01/20/25 13:04 TS [id number] 01/20/25 13:10 TS Document 01/27/25 13:07 TS [id number] 01/27/25 13:14 TS Document 02/03/25 13:37 RB [id number] 02/03/25 13:41 RB 01/20/25 01/27/25 02/03/25 13:04 13:07 13:37 Wound Center Nurse 1 #3 LT LAT FT -Combined with other wound No No No -Current Size (cm) - Length 3 1.2 0.1 -Current Size (cm) - Width 0.4 0.2 0.1 -Current Size (cm) - Depth 0.2 0.1 0.1 -Total Square Cm 1.2 0.24 0.01 -Date of Last Picture (Recall this 01/20/25 01/27/25 02/03/25 field) -Photo Taken Yes Yes Yes -Tunneling No No No -Undermining/Tunneling No No No -Circular Undermining No No No -Exudate Amt Medium Small Medium -Exudate Type Serosanguineous Serosanguineous Serosanguineous -Wound Margin Distinct, Distinct, Distinct, Outline Outline Outline Attached Attached Attached -Granulation Amt Small (1-33%) Medium (34-66%) Medium (34-66%) -Granulation Quality [place],Red [place],Red [place] -Slough/Fibrin No Yes -Necrosis Amt Medium (34-66%) -Necrotic Tissue Type Adherent Slough -Structure Exposed None/Limited to None/Limited to N/A Skin Breakdown Skin Breakdown -Texture (Edwina-wound Skin Appearance) Assessed Assessed Assessed -Moisture (Edwina-wound Skin Appearance) Assessed,Dry/ Assessed Dry/Scaly Scaly -Color (Edwina-wound Skin Appearance) Assessed Assessed Assessed -Temperature (Edwina-wound Skin No Abnormality No Abnormality No Abnormality Appearance) (Pt Warm) (Pt Warm) (Pt Warm) -Tenderness on Palpation (Edwina-wound No Skin Appearance) -Ulcer Cleansing Soap and Water Soap and Water Wound Cleanser -Foul Odor after Cleansing No No No -Anesthetic Used 5% Lidocaine 5% Lidocaine 5% Lidocaine Gel Gel Gel WC - Nurse 2 - General Ulcer CM Notes Start: 01/20/25 13:04 Freq: Status: Active Protocol: Activity Type Activity Date Activity User E-sign Co-sign Detail Recorded Client Recorded Date Recorded By Document 01/20/25 13:14 [id number] 01/20/25 13:18 JF Document 01/27/25 13:19 [id number] 01/27/25 13:21 Edit Result 01/27/25 13:19 JF (1) [id number] 01/27/25 13:22 JF Document 02/03/25 13:47 JF [id number] 02/03/25 13:53 JF (1) #3 LT LAT FT - Expiration Date => 08/16/29 - Product Lot Number => [id number] - Percent Used => 100 - Lot number of Saline Used => [id number] - Offloading No => Yes - Type of Offloading => Surgical Shoe 01/20/25 01/27/25 02/03/25 13:14 13:19 13:47 Wound Center Nurse 2 #3 LT LAT FT -Time 13:14 13:19 13:47 -Correct Patient Yes Yes Yes -Correct Side, Site, Position Yes Yes Yes -Correct Procedure Yes Yes Yes -Procedure Performed Yes Yes Yes -Type of Procedure Debridement Debridement Debridement -Clinical Debridement Subcutaneous Subcutaneous Subcutaneous -Tissue Removed Subcutaneous Subcutaneous Subcutaneous -Post Debridement (cm) - Length 1.3 0.5 0.5 -Post Debridement (cm) - Width 0.3 0.2 0.1 -Post Debridement (cm) - Depth 0.3 0.2 0.1 -Total Square (Post) (cm) 0.39 0.10 0.05 -Area of Debridement (cm) - Length 1.3 0.5 0.5 -Area of Debridement (cm) - Width 0.3 0.2 0.1 -Total Square (Area) (cm) 0.39 0.10 0.05 -Tunneling No No No -Undermining/Tunneling No No No -Circular Undermining No No No -Wound/Ulcer Outcome Not Healed Not Healed Not Healed -Ulcer Cleansing Rinsed/ Rinsed/ Rinsed/ Irrigated with Irrigated with Irrigated with Saline Saline Saline -Foul Odor after Cleansing No No No -Bioengineered Tissue Yes Yes Yes -Type of Bioengineered Tissue Epifix 18mm Epifix 18mm Epifix 18mm Disc Disc Disc -Expiration Date 08/16/29 08/16/29 09/15/29 -Product Lot Number [id number] -Percent Used 100 100 100 -Lot number of Saline Used [id number] -Bleeding Controlled with Pressure Pressure Pressure -Treatment Response Procedure Procedure Procedure Tolerated Well Tolerated Well Tolerated Well -Offloading Yes Yes Yes -Type of Offloading Surgical Shoe Surgical Shoe Surgical Shoe -Debridement - Subq, 1st 20sq cm No No No -Apply Skin Sub - 1st 25 sq cm - Feet 1 1 1 -Epifix 18mm Disc Application 1-4 3 3 3 Pain Scale: 0-10 Numeric Is Patient Pain Free? Yes Yes Yes - Nurse 3 - General Ulcer D/C NN Start: 01/20/25 13:04 Freq: Status: Active Protocol: Activity Type Activity Date Activity User E-sign Co-sign Detail Recorded Client Recorded Date Recorded By Document 01/20/25 13:25 RB [id number] 01/20/25 13:26 RB Document 01/27/25 13:30 TS [id number] 01/27/25 13:31 TS Document 02/03/25 14:02 RB [id number] 02/03/25 14:02 RB 01/20/25 01/27/25 02/03/25 13:25 13:30 14:02 Wound Care Center Nurse 3 #3 LT LAT FT -Ulcer Cleansing Rinsed/ Irrigated with Saline -Primary Dressing Applied C Hydrogel -Other Dressing ABD abd and kerlix -Primary Dressing Covered/Secured with Dry Gauze & Secured with Dry Gauze,Dry Roll Gauze, Tape Gauze & Roll Secured with Gauze,Secured Tape with Tape -Hydrogel 0 LLE -Compression Wrap Dexter Wrap Dexter Wrap Dexter Wrap Treatment Response Procedure Procedure Tolerated Well Tolerated Well Pain Scale: 0-10 Numeric Is Patient Pain Free? Yes Yes Yes WC - Visit Discharge Discharge Condition Stable Stable Stable Ambulatory Status Wheelchair Wheelchair Wheelchair Transportation Private Auto Private Auto Private Auto Accompanied by daughter daughter Medication Reconcilliation completed & No No No provided to patient/care provider Clinical Summary of Care Provided Yes Yes Yes Assessment/Plan Assessment/Plan (1) Non-pressure chronic ulcer of other part of left foot with necrosis of muscle: CODE(S): L97.523 - Non-pressure chronic ulcer of other part of left foot with necrosis of muscle PLAN: Patient was examined and evaluated. All findings were discussed with the patient. All questions were answered to the patient's satisfaction. Excisional debridement down to including subcutaneous tissue, fascia and muscle of the full-thickness wound to the left foot done with a number 5 mm dermal curette without incident. Predebridement measurement is sanguinous crust. Postdebridement measurement is 0.5 x 0.1 x 0.1 cm. EpiFix 18 mm disc graft was applied to the left full-thickness ulceration with 100% use. 7th application. The graft site was free and clear of any infection. The wound/skin graft substitute was dressed with nonadherent bandage secured in place with Steri-Strips followed by bolster dressing as well as a single layer Tubigrip. Educated patient on the importance of smoking sensation. Patient will continue to follow strict blood sugar control. Patient was educated to follow-up at the wound care center for nursing dressing change if there is any concern for drainage or infection. Patient will follow-up in Dr. Otoole in 2 week (2) Chronic painful diabetic polyneuropathy: CODE(S): E11.42 - Type 2 diabetes mellitus with diabetic polyneuropathy
--- NOTE | 2025-02-04 09:09 | WC ---
PHOTO-LATERAL FOOT 02/03/25
== END 2025-02-14 23:59 | disposition home or self-care (01) ==
LOC: WC 13:45
PROVIDERS: PCP Family Medicine; Referring Provider Family Medicine; Visit Provider Podiatrist Foot & Ankle Surgery
DX: E11.621 Type 2 diabetes mellitus with foot ulcer (principal); L97.523 Non-pressure chronic ulcer of other part of left foot with necrosis of muscle; Z89.511 Acquired absence of right leg below knee; E11.42 Type 2 diabetes mellitus with diabetic polyneuropathy
CPT/HCPCS: 15275; Q4186

== ENCOUNTER 2025-03-17 13:30 | Outpatient (RCR) | payer MEDICARE, SELFPAY ==
[2025-02-17 13:48] VITALS: BP 169/69; PULSE 93; RESP 16; TEMP 35.8
--- NOTE | 2025-02-17 14:45 | PN.PCM_ITS ---
History of Present Illness Date of Service: 02/17/25 Chief Complaint: R BKA stump wound History of Wound: Arianna Jerry is a 57 y/o female who presents to the wound healing center today for management of a right BKA stump wound. She is accompanied to the appointment today by her daughter who helps to supplement her history and also helps with her wound care. 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 At that time, they explored and washed out proximally in her thigh as well. Subsequently she initially had wound vac placed prior to secondary closure. She reports that the amputation site did ultimately heal fully and she was able to obtain a prosthetic. She had been doing very well with her prosthetic and getting back to work etc. Unfortunately about 1-2 months ago she developed a wound on her amputation stump due to the prosthetic rubbing in this area. She presented to the [facility] ER on 02/26/23 with concern of infection. She was admitted from 02/26-03/01 for IV antibiotics. Wound cultures were positive for staph aureus, blood cultures were negative. She was evaluated by orthopedics at that time as well. XR and CT scan performed during that admission were negative for signs of osteomyelitis. She was discharged with a course of Bactrim and referral here. At home, they have been doing daily dressing changes with iodoform and dry gauze dressing. Her daughter reports it has made significant improvement since her hospital stay. Progress of Wound: Healing full-thickness wound to the lateral left foot with skin graft substitute. Subjective Subjective Patient is a 59-year-old diabetic female presenting to wound care center today follow-up evaluation of full-thickness wound to lateral left foot with amnio ski n graft substitute. Patient unfortunately lost her over the weekend due to a send and cardiac arrest event in his sleep. She has been mourning and is uncomfortable with the situation. She does admit to increasing her smoking due to the stress. Her blood sugars well-controlled. She has left the dressing clean dry and intact. She denies trauma. Denies constitutional symptoms. No other pedal complaints at this time. Objective Data Objective Data Vital Signs: Vital Signs Temp Pulse Resp BP O2 Del Method 96.4 F L 93 16 169/69 H Room Air 02/17/25 13:48 02/17/25 13:48 02/17/25 13:48 02/17/25 13:48 02/17/25 13:48 Oxygen Delivery Method Room Air Lab / Micro Data Micro: Microbiology 10/08/24 10:25 Wound - Left Foot Gram Stain - Final 10/08/24 10:25 Wound - Left Foot Wound Culture - Final Meth. resistant Staph. aureus Streptococcus agalactiae (B) Physical Exam Narrative Vascular: DP and PT pulses are palpable to the left lower extremity. CFT is brisk. Skin temperature gradient is warm to warm from proximal ankles to distal digits of the left lower extremity. No erythema or proximal streaking. Neurological: Light touch is intact. Protective sensation is diminished. Dermatological: Full-thickness wound measures 1.7 x 0.3 x 0.5 cm. Wound base is granular with no drainage or malodor. Negative probe to bone. Excisional debridement down to including subcutaneous tissue of the full- thickness wound to the left foot done with a number 5 mm dermal curette without incident. Predebridement measurement is sanguinous crust. Postdebridement measurement is 1.7 x 0.3 x 0.5 cm. EpiFix 18 mm disc graft was applied to the left full-thickness ulceration with 100% use. 8th application. The graft site was free and clear of any infection. The wound/skin graft substitute was dressed with nonadherent bandage secured in place with Steri-Strips followed by bolster dressing as well as a single layer Tubigrip. Musculoskeletal: No pain on palpation to full-thickness wound left foot. No pain with calf compression. Debridement Note Debridement Note Debridement Free Text: Excisional debridement down to including subcutaneous tissue of the full-thickness wound to the left foot done with a number 5 mm dermal curette without incident. Predebridement measurement is sanguinous crust. Postdebridement measurement is 1.7 x 0.3 x 0.5 cm. EpiFix 18 mm disc graft was applied to the left full-thickness ulceration with 100% use. 8th application. The graft site was free and clear of any infection. The wound/skin graft substitute was dressed with nonadherent bandage secured in place with Steri-Strips followed by bolster dressing as well as a single layer Tubigrip. Post-Debridement Measurements and Additional Note: Post-Debridement Measurements/Treatment WC - Nurse 1 - General Ulcer Assessment Start: 02/17/25 13:47 Freq: Status: Active Protocol: .CELESTE Activity Type Activity Date Activity User E-sign Co-sign Detail Recorded Client Recorded Date Recorded By Document 02/17/25 13:48 [id number] 02/17/25 13:54 02/17/25 13:48 WC - Today's Visit Information Type of service Follow-up Visit (Physician/CAFETERIA MANAGER ) Arrival Mode Ambulatory,Cane Patient Identification Verified (Name & Yes ) Patient Requires Transmission-Based No Precautions Safety Precautions Fall Prevention Vital Signs Temperature (97.8 F-99.1 F) 96.4 F L Temperature Source Temporal Pulse Rate (60-100) 93 Pulse Location Monitor Respiratory Rate (12-18) 16 Respiratory rate source Observation Oxygen Delivery Method Room Air Blood Pressure (90/60-120/80) 169/69 H Blood Pressure Mean (mm Hg) 102 Source Monitor Position Sitting Blood Pressure Location Right Arm History Since Last Visit- (Skip if this is Patient's initial visit) Have you changed medications since your No last visit? Any new allergies or adverse reactions No Had a fall/change in ADL's that may No increase risk of falls Signs or symptoms of abuse and/or No neglect since last visit Have you been in the hospital since your No last visit? Has dressing in place as prescribed Yes Has compression in place as prescribed Yes Has offloadiing in place as prescribed N/A Experienced any changes in pain level or No management Left Footwear Regular Shoe Right Footwear Regular Shoe Pain Scale: 0-10 Numeric Is Patient Pain Free? Yes - Nurse 1 - General Ulcer Measurement Start: 02/17/25 13:47 Freq: Status: Active Protocol: Activity Type Activity Date Activity User E-sign Co-sign Detail Recorded Client Recorded Date Recorded By Document 02/17/25 13:48 [id number] 02/17/25 13:54 02/17/25 13:48 Wound Center Nurse 1 #3 LT LAT FT -Combined with other wound No -Current Size (cm) - Length 0.3 -Current Size (cm) - Width 0.1 -Current Size (cm) - Depth 0.1 -Total Square Cm 0.03 -Date of Last Picture (Recall this 02/17/25 field) -Photo Taken Yes -Undermining/Tunneling No -Circular Undermining No -Exudate Amt Small -Exudate Type Serous -Wound Margin Distinct, Outline Attached -Granulation Amt Medium (34-66%) -Granulation Quality [place],Red -Slough/Fibrin No -Structure Exposed None/Limited to Skin Breakdown -Texture (Edwina-wound Skin Appearance) Assessed -Moisture (Edwina-wound Skin Appearance) No Abnormality -Color (Edwina-wound Skin Appearance) Assessed -Temperature (Edwina-wound Skin No Abnormality Appearance) (Pt Warm) -Ulcer Cleansing Soap and Water -Foul Odor after Cleansing No -Anesthetic Used 5% Lidocaine Gel WC - Nurse 2 - General Ulcer CM Notes Start: 02/17/25 13:47 Freq: Status: Active Protocol: Activity Type Activity Date Activity User E-sign Co-sign Detail Recorded Client Recorded Date Recorded By Document 02/17/25 14:16 [id number] 02/17/25 14:25 02/17/25 14:16 Wound Center Nurse 2 -Time 14:17 -Correct Patient Yes -Correct Side, Site, Position Yes -Correct Procedure Yes -Procedure Performed Yes -Type of Procedure Debridement -Clinical Debridement Subcutaneous -Tissue Removed Subcutaneous -Post Debridement (cm) - Length 1.7 -Post Debridement (cm) - Width 0.3 -Post Debridement (cm) - Depth 0.5 -Total Square (Post) (cm) 0.51 -Area of Debridement (cm) - Length 1.7 -Area of Debridement (cm) - Width 0.3 -Total Square (Area) (cm) 0.51 -Tunneling No -Undermining/Tunneling No -Circular Undermining No -Wound/Ulcer Outcome Not Healed -Ulcer Cleansing Rinsed/ Irrigated with Saline -Foul Odor after Cleansing No -Bioengineered Tissue Yes -Type of Bioengineered Tissue Epifix -Expiration Date 09/15/29 -Product Lot Number [id number] -Percent Used 100 -Lot number of Saline Used [id number] -Bleeding Controlled with Pressure -Treatment Response Procedure Tolerated Well -Debridement - Subq, 1st 20sq cm No -Apply Skin Sub - 1st 25 sq cm - Legs 1 -Epifix Application 1-4 (per sq cm) 3 Pain Scale: 0-10 Numeric Is Patient Pain Free? Yes WC - Nurse 3 - General Ulcer D/C NN Start: 02/17/25 13:47 Freq: Status: Active Protocol: Activity Type Activity Date Activity User E-sign Co-sign Detail Recorded Client Recorded Date Recorded By Document 02/17/25 14:42 [id number] 02/17/25 14:42 02/17/25 14:42 Wound Care Center Nurse 3 #3 LT LAT FT -Primary Dressing Applied C Hydrogel -Primary Dressing Covered/Secured with Dry Gauze & Roll Gauze, Secured with Tape -Hydrogel 0 Pain Scale: 0-10 Numeric Is Patient Pain Free? Yes WC - Visit Discharge Discharge Condition Stable Ambulatory Status Cane Transportation Private Auto Medication Reconcilliation completed & No provided to patient/care provider Clinical Summary of Care Provided Yes Assessment/Plan Assessment/Plan (1) Non-pressure chronic ulcer of other part of left foot with necrosis of muscle: CODE(S): L97.523 - Non-pressure chronic ulcer of other part of left foot with necrosis of muscle PLAN: Patient was examined and evaluated. All findings were discussed with the patient. All questions were answered to the patient's satisfaction. Excisional debridement down to including subcutaneous tissue of the full- thickness wound to the left foot done with a number 5 mm dermal curette without incident. Predebridement measurement is sanguinous crust. Postdebridement measurement is 1.7 x 0.3 x 0.5 cm. EpiFix 18 mm disc graft was applied to the left full-thickness ulceration with 100% use. 8th application. The graft site was free and clear of any infection. The wound/skin graft substitute was dressed with nonadherent bandage secured in place with Steri-Strips followed by bolster dressing as well as a single layer Tubigrip. Educated patient on the importance of smoking sensation. Patient will continue to follow strict blood sugar control. Patient will follow-up in Dr. Otoole in 1 week (2) Chronic painful diabetic polyneuropathy: CODE(S): E11.42 - Type 2 diabetes mellitus with diabetic polyneuropathy
--- NOTE | 2025-02-18 09:37 | WC ---
PHOTO-LEFT LAT FOOT 02/17/25
[2025-02-24 13:39] VITALS: BP 165/77; PULSE 101; RESP 18; TEMP 36.2
--- NOTE | 2025-02-24 15:57 | PCM.WC.PN ---
History of Present Illness Date of Service: 02/24/25 Chief Complaint: R BKA stump wound History of Wound: Arianna Jerry is a 57 y/o female who presents to the wound healing center today for management of a right BKA stump wound. She is accompanied to the appointment today by her daughter who helps to supplement her history and also helps with her wound care. 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 At that time, they explored and washed out proximally in her thigh as well. Subsequently she initially had wound vac placed prior to secondary closure. She reports that the amputation site did ultimately heal fully and she was able to obtain a prosthetic. She had been doing very well with her prosthetic and getting back to work etc. Unfortunately about 1-2 months ago she developed a wound on her amputation stump due to the prosthetic rubbing in this area. She presented to the [facility] ER on 02/26/23 with concern of infection. She was admitted from 02/26-03/01 for IV antibiotics. Wound cultures were positive for staph aureus, blood cultures were negative. She was evaluated by orthopedics at that time as well. XR and CT scan performed during that admission were negative for signs of osteomyelitis. She was discharged with a course of Bactrim and referral here. At home, they have been doing daily dressing changes with iodoform and dry gauze dressing. Her daughter reports it has made significant improvement since her hospital stay. Progress of Wound: Healing full-thickness wound to the lateral left foot with skin graft substitute. Subjective Subjective Patient is a 59-year-old diabetic female presenting to clinic today follow-up evaluation of full-thickness wound with prominence of the substitute to left lower extremity. Patient is having some erythema to the lateral foot wound due to more than regular walking. She is moving into a new property. Blood sugars are controlled. She is smoking a bit more than usual. She denies trauma. Denies constitutional symptoms. No other pedal complaints at this time. Objective Data Objective Data Vital Signs: Vital Signs Temp Pulse Resp BP O2 Del Method 97.1 F L 101 H 18 165/77 H Room Air 02/24/25 13:39 02/24/25 13:39 02/24/25 13:39 02/24/25 13:39 02/17/25 13:48 Oxygen Delivery Method Room Air Lab / Micro Data Micro: Microbiology 10/08/24 10:25 Wound - Left Foot Gram Stain - Final 10/08/24 10:25 Wound - Left Foot Wound Culture - Final Meth. resistant Staph. aureus Streptococcus agalactiae (B) Physical Exam Narrative Vascular: DP and PT pulses are palpable to the left lower extremity. CFT is brisk. Skin temperature gradient is warm to warm from proximal ankles to distal digits of the left lower extremity. Blanchable erythema appreciated to the styloid process of the fifth metatarsal left foot. Neurological: Light touch is intact. Protective sensation is diminished. Dermatological: Full-thickness wound to the lateral left foot measures 1.5 x 0.2 x 0.3 cm. Wound base is granular with no drainage or malodor. Negative probe to bone. Excisional debridement down to including subcutaneous tissue of the full-thickness wound to the left foot done with a number 5 mm dermal curette without incident. Predebridement measurement is sanguinous crust. Postdebridement measurement is 1.5 x 0.2 x 0.3 cm. EpiFix 18 mm disc graft was applied to the left full-thickness ulceration with 100% use. 9th application. The graft site was free and clear of any infection. The wound/skin graft substitute was dressed with nonadherent bandage secured in place with Steri-Strips followed by bolster dressing as well as a single layer Tubigrip. Musculoskeletal: No pain on palpation to full-thickness wound left foot. No pain with calf compression. Debridement Note Debridement Note Debridement Free Text: Excisional debridement down to including subcutaneous tissue of the full-thickness wound to the left foot done with a number 5 mm dermal curette without incident. Predebridement measurement is sanguinous crust. Postdebridement measurement is 1.7 x 0.3 x 0.5 cm. EpiFix 18 mm disc graft was applied to the left full-thickness ulceration with 100% use. 8th application. The graft site was free and clear of any infection. The wound/skin graft substitute was dressed with nonadherent bandage secured in place with Steri-Strips followed by bolster dressing as well as a single layer Tubigrip. Post-Debridement Measurements and Additional Note: Post-Debridement Measurements/Treatment SUE - Nurse 1 - General Ulcer Assessment Start: 02/17/25 13:47 Freq: Status: Active Protocol: APRIL Activity Type Activity Date Activity User E-sign Co-sign Detail Recorded Client Recorded Date Recorded By Document 02/17/25 13:48 TS [id number] 02/17/25 13:54 TS Document 02/24/25 13:39 ML [id number] 02/24/25 13:48 ML 02/17/25 02/24/25 13:48 13:39 WC - Today's Visit Information Type of service Follow-up Visit Follow-up Visit (Physician/PLC PROGRAMMER (Physician/PLC PROGRAMMER ) ) Arrival Mode Ambulatory,Cane Ambulatory Transfer Assistance None Patient Identification Verified (Name & Yes Yes ) Patient Requires Transmission-Based No No Precautions Safety Precautions Fall Prevention Vital Signs Temperature (97.8 F-99.1 F) 96.4 F L 97.1 F L Temperature Source Temporal Temporal Pulse Rate (60-100) 93 101 H Pulse Location Monitor Monitor Respiratory Rate (12-18) 16 18 Respiratory rate source Observation Observation Oxygen Delivery Method Room Air Blood Pressure (90/60-120/80) 169/69 H 165/77 H Blood Pressure Mean (mm Hg) 102 106 Source Monitor Monitor Position Sitting Sitting Blood Pressure Location Right Arm Right Arm History Since Last Visit- (Skip if this is Patient's initial visit) Have you changed medications since your No No last visit? Any new allergies or adverse reactions No No Had a fall/change in ADL's that may No No increase risk of falls Signs or symptoms of abuse and/or No No neglect since last visit Have you been in the hospital since your No No last visit? Has dressing in place as prescribed Yes Yes Has compression in place as prescribed Yes Yes Has offloadiing in place as prescribed N/A N/A Experienced any changes in pain level or No No management Left Footwear Regular Shoe Right Footwear Regular Shoe Pain Scale: 0-10 Numeric Is Patient Pain Free? Yes Yes - Nurse 1 - General Ulcer Measurement Start: 02/17/25 13:47 Freq: Status: Active Protocol: Activity Type Activity Date Activity User E-sign Co-sign Detail Recorded Client Recorded Date Recorded By Document 02/17/25 13:48 TS [id number] 02/17/25 13:54 TS Document 02/24/25 13:39 ML [id number] 02/24/25 13:48 ML 02/17/25 02/24/25 13:48 13:39 Wound Center Nurse 1 #4 LEFT LATERAL SUP FOOT -Current Size (cm) - Length 1.5 -Current Size (cm) - Width 0.5 -Current Size (cm) - Depth 0.1 -Total Square Cm 0.75 -Exudate Amt Small -Exudate Type Serosanguineous -Granulation Amt Medium (34-66%) -Granulation Quality Hector -Slough/Fibrin Yes -Necrosis Amt Small (1-33%) -Texture (Edwina-wound Skin Appearance) Assessed -Color (Edwina-wound Skin Appearance) Assessed -Temperature (Edwina-wound Skin No Abnormality Appearance) (Pt Warm) -Tenderness on Palpation (Edwina-wound No Skin Appearance) -Ulcer Cleansing Rinsed/ Irrigated with Saline -Foul Odor after Cleansing No -Anesthetic Used 5% Lidocaine Gel *#3 LT LAT FT CLUSTER -Combined with other wound No -Current Size (cm) - Length 0.3 1.5 -Current Size (cm) - Width 0.1 0.5 -Current Size (cm) - Depth 0.1 0.1 -Total Square Cm 0.03 0.75 -Date of Last Picture (Recall this 02/17/25 field) -Photo Taken Yes -Undermining/Tunneling No -Circular Undermining No -Exudate Amt Small None Present -Exudate Type Serous Sanguineous -Wound Margin Distinct, Outline Attached -Granulation Amt Medium (34-66%) None Present (0 %) -Granulation Quality Hector,Red -Slough/Fibrin No Yes -Structure Exposed None/Limited to Skin Breakdown -Texture (Edwina-wound Skin Appearance) Assessed Assessed -Moisture (Edwina-wound Skin Appearance) No Abnormality -Color (Edwina-wound Skin Appearance) Assessed Assessed -Temperature (Edwina-wound Skin No Abnormality No Abnormality Appearance) (Pt Warm) (Pt Warm) -Tenderness on Palpation (Edwina-wound No Skin Appearance) -Ulcer Cleansing Soap and Water Rinsed/ Irrigated with Saline -Foul Odor after Cleansing No No -Anesthetic Used 5% Lidocaine 5% Lidocaine Gel Gel WC - Nurse 2 - General Ulcer CM Notes Start: 02/17/25 13:47 Freq: Status: Active Protocol: Activity Type Activity Date Activity User E-sign Co-sign Detail Recorded Client Recorded Date Recorded By Document 02/17/25 14:16 GM [id number] 02/17/25 14:25 GM Edit Result 02/17/25 14:16 GM (1) [id number] 02/24/25 13:31 GM Document 02/24/25 14:09 GM(2) [id number] 02/24/25 14:23 GM(2) (1) *#3 LT LAT FT CLUSTER - Apply Skin Sub - 1st 25 sq cm - Legs 1 => - Apply Skin Sub - 1st 25 sq cm - Feet => 1 02/17/25 02/24/25 14:16 14:09 Wound Center Nurse 2 #4 LEFT LATERAL SUP FOOT -Time 14:10 -Correct Patient Yes -Correct Side, Site, Position Yes -Correct Procedure Yes -Procedure Performed Yes -Type of Procedure Debridement -Clinical Debridement Subcutaneous -Tissue Removed Subcutaneous -Tunneling No -Undermining/Tunneling No -Circular Undermining No -Wound/Ulcer Outcome Not Healed -Ulcer Cleansing Rinsed/ Irrigated with Saline -Foul Odor after Cleansing No -Bioengineered Tissue Yes -Bleeding Controlled with Pressure -Treatment Response Procedure Tolerated Well -Offloading No -Debridement - Subq, 1st 20sq cm Yes *#3 LT LAT FT CLUSTER -Time 14:17 14:12 -Correct Patient Yes Yes -Correct Side, Site, Position Yes Yes -Correct Procedure Yes Yes -Procedure Performed Yes Yes -Type of Procedure Debridement Debridement -Clinical Debridement Subcutaneous Subcutaneous -Tissue Removed Subcutaneous Subcutaneous -Post Debridement (cm) - Length 1.7 1.5 -Post Debridement (cm) - Width 0.3 0.2 -Post Debridement (cm) - Depth 0.5 0.3 -Total Square (Post) (cm) 0.51 0.30 -Area of Debridement (cm) - Length 1.7 1.5 -Area of Debridement (cm) - Width 0.3 0.2 -Total Square (Area) (cm) 0.51 0.30 -Tunneling No No -Undermining/Tunneling No No -Circular Undermining No No -Wound/Ulcer Outcome Not Healed Not Healed -Ulcer Cleansing Rinsed/ Rinsed/ Irrigated with Irrigated with Saline Saline -Foul Odor after Cleansing No No -Bioengineered Tissue Yes Yes -Type of Bioengineered Tissue Epifix Epifix 18mm Disc -Expiration Date 09/15/29 10/16/29 -Product Lot Number [id number] -Percent Used 100 100 -Lot number of Saline Used [id number] -Bleeding Controlled with Pressure Pressure -Treatment Response Procedure Procedure Tolerated Well Tolerated Well -Offloading No -Debridement - Subq, 1st 20sq cm No Yes -Apply Skin Sub - 1st 25 sq cm - Feet 1 1 -Epifix Application 1-4 (per sq cm) 3 -Epifix 18mm Disc Application 1-4 3 Pain Scale: 0-10 Numeric Is Patient Pain Free? Yes Yes - Nurse 3 - General Ulcer D/C NN Start: 02/17/25 13:47 Freq: Status: Active Protocol: Activity Type Activity Date Activity User E-sign Co-sign Detail Recorded Client Recorded Date Recorded By Document 02/17/25 14:42 TS [id number] 02/17/25 14:42 TS Document 02/24/25 14:38 RB [id number] 02/24/25 14:39 RB 02/17/25 02/24/25 14:42 14:38 Wound Care Center Nurse 3 *#3 LT LAT FT CLUSTER -Primary Dressing Applied C Hydrogel Silvercel -Primary Dressing Covered/Secured with Dry Gauze & Dry Gauze Roll Gauze, Secured with Tape -Hydrogel 0 -Silvercel 1 LLE -Tubular Bandage Single Layer -Size of Tubigrip Used Size C -Size C ($) 1 Treatment Response Procedure Tolerated Well Pain Scale: 0-10 Numeric Is Patient Pain Free? Yes Yes - Visit Discharge Discharge Condition Stable Stable Ambulatory Status Cane Ambulatory Transportation Private Auto Private Auto Accompanied by DAUGHTER Medication Reconcilliation completed & No No provided to patient/care provider Clinical Summary of Care Provided Yes Yes Assessment/Plan Assessment/Plan (1) Non-pressure chronic ulcer of other part of left foot with necrosis of muscle: CODE(S): L97.523 - Non-pressure chronic ulcer of other part of left foot with necrosis of muscle PLAN: Patient was examined and evaluated. All findings were discussed with the patient. All questions were answered to the patient's satisfaction. Excisional debridement down to including subcutaneous tissue of the full-thickness wound to the left foot done with a number 5 mm dermal curette without incident. Predebridement measurement is sanguinous crust. Postdebridement measurement is 1.5 x 0.2 x 0.3 cm. EpiFix 18 mm disc graft was applied to the left full-thickness ulceration with 100% use. 9th application. The graft site was free and clear of any infection. The wound/skin graft substitute was dressed with nonadherent bandage secured in place with Steri-Strips followed by bolster dressing as well as a single layer Tubigrip. After examination the patient has some blanchable erythema to the styloid process due to excessive walking while she is moving. She will be placed on doxycycline 100 mg twice daily for prophylaxis. Educated patient continue strict blood sugar control. Educated the patient continue smoking cessation. Patient will follow-up in Dr. Otoole in 1 week (2) Chronic painful diabetic polyneuropathy: CODE(S): E11.42 - Type 2 diabetes mellitus with diabetic polyneuropathy
--- NOTE | 2025-02-25 09:25 | WC ---
PHOTO-LEFT LAT FOOT 02/24/25
--- NOTE | 2025-02-25 09:26 | WC ---
PHOTO-LT LAT SUP 02/24/25
[2025-03-03 12:22] VITALS: BP 140/84; PULSE 87; RESP 16; TEMP 36.2
--- NOTE | 2025-03-03 13:20 | PCM.WC.PN ---
History of Present Illness Date of Service: 03/03/25 Chief Complaint: R BKA stump wound History of Wound: Arianna Jerry is a 57 y/o female who presents to the wound healing center today for management of a right BKA stump wound. She is accompanied to the appointment today by her daughter who helps to supplement her history and also helps with her wound care. 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 At that time, they explored and washed out proximally in her thigh as well. Subsequently she initially had wound vac placed prior to secondary closure. She reports that the amputation site did ultimately heal fully and she was able to obtain a prosthetic. She had been doing very well with her prosthetic and getting back to work etc. Unfortunately about 1-2 months ago she developed a wound on her amputation stump due to the prosthetic rubbing in this area. She presented to the [facility] ER on 02/26/23 with concern of infection. She was admitted from 02/26-03/01 for IV antibiotics. Wound cultures were positive for staph aureus, blood cultures were negative. She was evaluated by orthopedics at that time as well. XR and CT scan performed during that admission were negative for signs of osteomyelitis. She was discharged with a course of Bactrim and referral here. At home, they have been doing daily dressing changes with iodoform and dry gauze dressing. Her daughter reports it has made significant improvement since her hospital stay. Progress of Wound: Healing full-thickness wound to the lateral left foot with skin graft substitute. Subjective Subjective Patient is a 59-year-old diabetic female presenting to the wound care center today follow-up evaluation of full-thickness wound to the left foot. Patient has been compliant with offloading and is in a wheelchair today. Her blood sugars well-controlled. She is taking a prophylactic antibiotic as prescribed. She has no pain to the left foot. Denies trauma. Denies constitutional symptoms. No other pedal complaints at this time. Objective Data Objective Data Vital Signs: Vital Signs Temp Pulse Resp BP O2 Del Method 97.1 F L 87 16 140/84 H Room Air 03/03/25 12:22 03/03/25 12:22 03/03/25 12:22 03/03/25 12:22 03/03/25 12:22 Oxygen Delivery Method Room Air Lab / Micro Data Micro: Microbiology 02/24/25 14:15 Wound - Left Foot Gram Stain - Final 02/24/25 14:15 Wound - Left Foot Wound Culture - Final Staphylococcus epidermidis Staphylococcus capitis 02/24/25 14:15 Wound - Left Foot Anaerobic Culture - Final No anaerobic bacteria isolated. Physical Exam Narrative Vascular: DP and PT pulses are palpable to the left lower extremity. CFT is brisk. Skin temperature gradient is warm to warm from proximal ankles to distal digits of the left lower extremity. Blanchable erythema appreciated to the styloid process of the fifth metatarsal left foot. Neurological: Light touch is intact. Protective sensation is diminished. Dermatological: Full-thickness wound to the lateral left foot measures 1.3 x 1.2 x 0.1 cm. Wound base is granular with no drainage or malodor. Negative probe to bone. Excisional debridement down to including subcutaneous tissue of the full-thickness wound to the left foot done with a number 5 mm dermal curette without incident. Predebridement measurement is sanguinous crust. Postdebridement measurement is 1.3 x 1.2 x 0.1 cm. EpiFix 18 mm disc graft was applied to the left full-thickness ulceration with 100% use. 10th application. The graft site was free and clear of any infection. The wound/skin graft substitute was dressed with nonadherent bandage secured in place with Steri-Strips followed by bolster dressing as well as a single layer Tubigrip. Musculoskeletal: No pain on palpation to full-thickness wound left foot. No pain with calf compression. Debridement Note Debridement Note Debridement Free Text: Excisional debridement down to including subcutaneous tissue of the full-thickness wound to the left foot done with a number 5 mm dermal curette without incident. Predebridement measurement is sanguinous crust. Postdebridement measurement is 1.3 x 1.2 x 0.1 cm. EpiFix 18 mm disc graft was applied to the left full-thickness ulceration with 100% use. 10th application. The graft site was free and clear of any infection. The wound/skin graft substitute was dressed with nonadherent bandage secured in place with Steri-Strips followed by bolster dressing as well as a single layer Tubigrip. Post-Debridement Measurements and Additional Note: Post-Debridement Measurements/Treatment WC - Nurse 1 - General Ulcer Assessment Start: 02/17/25 13:47 Freq: Status: Active Protocol: APRIL Activity Type Activity Date Activity User E-sign Co-sign Detail Recorded Client Recorded Date Recorded By Document 02/17/25 13:48 TS [id number] 02/17/25 13:54 TS Document 02/24/25 13:39 ML [id number] 02/24/25 13:48 ML Document 03/03/25 12:22 TS [id number] 03/03/25 12:26 TS 02/17/25 02/24/25 03/03/25 13:48 13:39 12:22 - Today's Visit Information Type of service Follow-up Visit Follow-up Visit Initial Visit (Physician/SALES PROCESS MANAGER (Physician/SALES PROCESS MANAGER ) ) Arrival Mode Ambulatory,Cane Ambulatory Ambulatory Transfer Assistance None Patient Identification Verified (Name & Yes Yes Yes ) Patient Requires Transmission-Based No No No Precautions Safety Precautions Fall Prevention Fall Prevention Vital Signs Temperature (97.8 F-99.1 F) 96.4 F L 97.1 F L 97.1 F L Temperature Source Temporal Temporal Temporal Pulse Rate (60-100) 93 101 H 87 Pulse Location Monitor Monitor Monitor Respiratory Rate (12-18) 16 18 16 Respiratory rate source Observation Observation Observation Oxygen Delivery Method Room Air Room Air Blood Pressure (90/60-120/80) 169/69 H 165/77 H 140/84 H Blood Pressure Mean (mm Hg) 102 106 102 Source Monitor Monitor Monitor Position Sitting Sitting Sitting Blood Pressure Location Right Arm Right Arm Right Arm History Since Last Visit- (Skip if this is Patient's initial visit) Have you changed medications since your No No No last visit? Any new allergies or adverse reactions No No No Had a fall/change in ADL's that may No No No increase risk of falls Signs or symptoms of abuse and/or No No No neglect since last visit Have you been in the hospital since your No No No last visit? Has dressing in place as prescribed Yes Yes Yes Has compression in place as prescribed Yes Yes Yes Has offloadiing in place as prescribed N/A N/A N/A Experienced any changes in pain level or No No No management Left Footwear Regular Shoe Regular Shoe Right Footwear Regular Shoe Regular Shoe Pain Scale: 0-10 Numeric Is Patient Pain Free? Yes Yes Yes - Nurse 1 - General Ulcer Measurement Start: 02/17/25 13:47 Freq: Status: Active Protocol: Activity Type Activity Date Activity User E-sign Co-sign Detail Recorded Client Recorded Date Recorded By Document 02/17/25 13:48 TS [id number] 02/17/25 13:54 TS Document 02/24/25 13:39 ML [id number] 02/24/25 13:48 ML Document 03/03/25 12:22 TS [id number] 03/03/25 12:26 TS 02/17/25 02/24/25 03/03/25 13:48 13:39 12:22 Wound Center Nurse 1 #4 LEFT LATERAL SUP FOOT -Current Size (cm) - Length 1.5 -Current Size (cm) - Width 0.5 -Current Size (cm) - Depth 0.1 -Total Square Cm 0.75 -Exudate Amt Small -Exudate Type Serosanguineous -Granulation Amt Medium (34-66%) -Granulation Quality [place] -Slough/Fibrin Yes -Necrosis Amt Small (1-33%) -Texture (Edwina-wound Skin Appearance) Assessed -Color (Edwina-wound Skin Appearance) Assessed -Temperature (Edwina-wound Skin No Abnormality Appearance) (Pt Warm) -Tenderness on Palpation (Edwina-wound No Skin Appearance) -Ulcer Cleansing Rinsed/ Irrigated with Saline -Foul Odor after Cleansing No -Anesthetic Used 5% Lidocaine Gel *#3 LT LAT FT CLUSTER -Combined with other wound No -Current Size (cm) - Length 0.3 1.5 1.2 -Current Size (cm) - Width 0.1 0.5 0.1 -Current Size (cm) - Depth 0.1 0.1 0.2 -Total Square Cm 0.03 0.75 0.12 -Date of Last Picture (Recall this 02/17/25 field) -Photo Taken Yes -Undermining/Tunneling No -Circular Undermining No No -Exudate Amt Small None Present Medium -Exudate Type Serous Sanguineous Serosanguineous -Wound Margin Distinct, Distinct, Outline Outline Attached Attached -Granulation Amt Medium (34-66%) None Present (0 Medium (34-66%) %) -Granulation Quality [place],Red [place],Red -Slough/Fibrin No Yes Yes -Necrosis Amt Medium (34-66%) -Necrotic Tissue Type Adherent Slough -Structure Exposed None/Limited to Fascia Skin Breakdown -Texture (Edwina-wound Skin Appearance) Assessed Assessed Assessed -Moisture (Edwina-wound Skin Appearance) No Abnormality Assessed -Color (Edwina-wound Skin Appearance) Assessed Assessed Assessed -Temperature (Edwina-wound Skin No Abnormality No Abnormality No Abnormality Appearance) (Pt Warm) (Pt Warm) (Pt Warm) -Tenderness on Palpation (Edwina-wound No Skin Appearance) -Ulcer Cleansing Soap and Water Rinsed/ Soap and Water Irrigated with Saline -Foul Odor after Cleansing No No No -Anesthetic Used 5% Lidocaine 5% Lidocaine 5% Lidocaine Gel Gel Gel WC - Nurse 2 - General Ulcer CM Notes Start: 02/17/25 13:47 Freq: Status: Active Protocol: Activity Type Activity Date Activity User E-sign Co-sign Detail Recorded Client Recorded Date Recorded By Document 02/17/25 14:16 GM [id number] 02/17/25 14:25 GM Edit Result 02/17/25 14:16 GM (1) [id number] 02/24/25 13:31 GM Document 02/24/25 14:09 GM(2) [id number] 02/24/25 14:23 GM(2) Edit Result 02/24/25 14:09 GM(2) (2) [id number] 02/26/25 07:40 GM(2) Document 03/03/25 12:40 GM [id number] 03/03/25 12:45 GM (1) *#3 LT LAT FT CLUSTER - Apply Skin Sub - 1st 25 sq cm - Legs 1 => - Apply Skin Sub - 1st 25 sq cm - Feet => 1 (2) *#3 LT LAT FT CLUSTER - Debridement - Subq, 1st 20sq cm Yes => No 02/17/25 02/24/25 03/03/25 14:16 14:09 12:40 Wound Center Nurse 2 #4 LEFT LATERAL SUP FOOT -Time 14:10 -Correct Patient Yes -Correct Side, Site, Position Yes -Correct Procedure Yes -Procedure Performed Yes -Type of Procedure Debridement -Clinical Debridement Subcutaneous -Tissue Removed Subcutaneous -Tunneling No -Undermining/Tunneling No -Circular Undermining No -Wound/Ulcer Outcome Not Healed -Ulcer Cleansing Rinsed/ Irrigated with Saline -Foul Odor after Cleansing No -Bioengineered Tissue Yes -Bleeding Controlled with Pressure -Treatment Response Procedure Tolerated Well -Offloading No -Debridement - Subq, 1st 20sq cm Yes *#3 LT LAT FT CLUSTER -Time 14:17 14:12 12:41 -Correct Patient Yes Yes Yes -Correct Side, Site, Position Yes Yes Yes -Correct Procedure Yes Yes Yes -Procedure Performed Yes Yes Yes -Type of Procedure Debridement Debridement Debridement -Clinical Debridement Subcutaneous Subcutaneous Subcutaneous -Tissue Removed Subcutaneous Subcutaneous Subcutaneous -Post Debridement (cm) - Length 1.7 1.5 1.3 -Post Debridement (cm) - Width 0.3 0.2 1.2 -Post Debridement (cm) - Depth 0.5 0.3 0.1 -Total Square (Post) (cm) 0.51 0.30 1.56 -Area of Debridement (cm) - Length 1.7 1.5 1.3 -Area of Debridement (cm) - Width 0.3 0.2 1.2 -Total Square (Area) (cm) 0.51 0.30 1.56 -Tunneling No No No -Undermining/Tunneling No No No -Circular Undermining No No No -Wound/Ulcer Outcome Not Healed Not Healed Not Healed -Ulcer Cleansing Rinsed/ Rinsed/ Rinsed/ Irrigated with Irrigated with Irrigated with Saline Saline Saline -Foul Odor after Cleansing No No No -Bioengineered Tissue Yes Yes Yes -Type of Bioengineered Tissue Epifix Epifix 18mm Epifix 18mm Disc Disc -Expiration Date 09/15/29 10/16/29 10/16/29 -Product Lot Number [id number] -Percent Used 100 100 100 -Lot number of Saline Used [id number] -Bleeding Controlled with Pressure Pressure Pressure -Treatment Response Procedure Procedure Procedure Tolerated Well Tolerated Well Tolerated Well -Offloading No -Debridement - Subq, 1st 20sq cm No No No -Apply Skin Sub - 1st 25 sq cm - Feet 1 1 -Epifix Application 1-4 (per sq cm) 3 -Epifix 18mm Disc Application 1-4 3 Pain Scale: 0-10 Numeric Is Patient Pain Free? Yes Yes Yes WC - Nurse 3 - General Ulcer D/C NN Start: 02/17/25 13:47 Freq: Status: Active Protocol: Activity Type Activity Date Activity User E-sign Co-sign Detail Recorded Client Recorded Date Recorded By Document 02/17/25 14:42 TS [id number] 02/17/25 14:42 TS Document 02/24/25 14:38 RB [id number] 02/24/25 14:39 RB Document 03/03/25 13:05 JM [id number] 03/03/25 13:07 02/17/25 02/24/25 03/03/25 14:42 14:38 13:05 Wound Care Center Nurse 3 *#3 LT LAT FT CLUSTER -Ulcer Cleansing epifix drsg in place -Primary Dressing Applied C Hydrogel Silvercel Silvercel -Primary Dressing Covered/Secured with Dry Gauze & Dry Gauze Dry Gauze Roll Gauze, Secured with Tape -Hydrogel 0 -Silvercel 1 1 LLE -Lotion applied to leg before No compression wrap -Tubular Bandage Single Layer Single Layer -Size of Tubigrip Used Size C Size D -Size C ($) 1 -Size D ($) 1 Treatment Response Procedure Tolerated Well Pain Scale: 0-10 Numeric Is Patient Pain Free? Yes Yes Yes WC - Visit Discharge Discharge Condition Stable Stable Stable Ambulatory Status Cane Ambulatory Wheelchair Transportation Private Auto Private Auto Private Auto Accompanied by DAUGHTER daughter Medication Reconcilliation completed & No No provided to patient/care provider Clinical Summary of Care Provided Yes Yes Assessment/Plan Assessment/Plan (1) Non-pressure chronic ulcer of other part of left foot with necrosis of muscle: CODE(S): L97.523 - Non-pressure chronic ulcer of other part of left foot with necrosis of muscle PLAN: Patient was examined and evaluated. All findings were discussed with the patient. All questions were answered to the patient's satisfaction. Excisional debridement down to including subcutaneous tissue of the full-thickness wound to the left foot done with a number 5 mm dermal curette without incident. Predebridement measurement is sanguinous crust. Postdebridement measurement is 1.3 x 1.2 x 0.1 cm. EpiFix 18 mm disc graft was applied to the left full-thickness ulceration with 100% use. 10th application. The graft site was free and clear of any infection. The wound/skin graft substitute was dressed with nonadherent bandage secured in place with Steri-Strips followed by bolster dressing as well as a single layer Tubigrip. Patient will continue take the antibiotics until gone. She will continue smoking cessation. She will continue strict blood sugar control. Patient will follow-up in Dr. Otoole in 1 week (2) Chronic painful diabetic polyneuropathy: CODE(S): E11.42 - Type 2 diabetes mellitus with diabetic polyneuropathy
[2025-03-10 12:29] VITALS: BP 107/69; PULSE 94; RESP 16; TEMP 36.1
--- NOTE | 2025-03-10 12:48 | PCM.WC.PN ---
History of Present Illness Date of Service: 03/10/25 Chief Complaint: R BKA stump wound History of Wound: Arianna Jerry is a 57 y/o female who presents to the wound healing center today for management of a right BKA stump wound. She is accompanied to the appointment today by her daughter who helps to supplement her history and also helps with her wound care. 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 At that time, they explored and washed out proximally in her thigh as well. Subsequently she initially had wound vac placed prior to secondary closure. She reports that the amputation site did ultimately heal fully and she was able to obtain a prosthetic. She had been doing very well with her prosthetic and getting back to work etc. Unfortunately about 1-2 months ago she developed a wound on her amputation stump due to the prosthetic rubbing in this area. She presented to the [facility] ER on 02/26/23 with concern of infection. She was admitted from 02/26-03/01 for IV antibiotics. Wound cultures were positive for staph aureus, blood cultures were negative. She was evaluated by orthopedics at that time as well. XR and CT scan performed during that admission were negative for signs of osteomyelitis. She was discharged with a course of Bactrim and referral here. At home, they have been doing daily dressing changes with iodoform and dry gauze dressing. Her daughter reports it has made significant improvement since her hospital stay. Progress of Wound: Healing full-thickness wound to the lateral left foot with skin graft substitute. Subjective Subjective Patient is a 59-year-old diabetic female presenting to wound care center today for follow-up evaluation amnion skin graft substitute application. She has left a clean dry and intact. She is smoking but is only smoking 6 cigarettes/day. Her blood sugars well-controlled. She denies trauma. Denies constitutional symptoms. No other pedal complaints at this time. Objective Data Objective Data Vital Signs: Vital Signs Temp Pulse Resp BP O2 Del Method 97.0 F L 94 16 107/69 Room Air 03/10/25 12:29 03/10/25 12:29 03/10/25 12:29 03/10/25 12:29 03/10/25 12:29 Oxygen Delivery Method Room Air Lab / Micro Data Micro: Microbiology 02/24/25 14:15 Wound - Left Foot Gram Stain - Final 02/24/25 14:15 Wound - Left Foot Wound Culture - Final Staphylococcus epidermidis Staphylococcus capitis 02/24/25 14:15 Wound - Left Foot Anaerobic Culture - Final No anaerobic bacteria isolated. Physical Exam Narrative Vascular: DP and PT pulses are palpable to the left lower extremity. CFT is brisk. Skin temperature gradient is warm to warm from proximal ankles to distal digits of the left lower extremity. No erythema left foot. Neurological: Light touch is intact. Protective sensation is diminished. Dermatological: Full-thickness wound to the lateral left foot measures 0.8 x 0.7 x 0.1 cm. Wound base is granular with no drainage or malodor. Negative probe to bone. Excisional debridement down to including subcutaneous tissue of the full-thickness wound to the left foot done with a number 5 mm dermal curette without incident. Predebridement measurement is sanguinous crust. Postdebridement measurement is 0.8 x 0.7 x 0.1 cm. Musculoskeletal: No pain on palpation to full-thickness wound left foot. No pain with calf compression. Debridement Note Debridement Note Debridement Free Text: Excisional debridement down to including subcutaneous tissue of the full-thickness wound to the left foot done with a number 5 mm dermal curette without incident. Predebridement measurement is sanguinous crust. Postdebridement measurement is 0.8 x 0.7 x 0.1 cm. Post-Debridement Measurements and Additional Note: Post-Debridement Measurements/Treatment - Nurse 1 - General Ulcer Assessment Start: 02/17/25 13:47 Freq: Status: Active Protocol: APRIL Activity Type Activity Date Activity User E-sign Co-sign Detail Recorded Client Recorded Date Recorded By Document 02/17/25 13:48 TS [id number] 02/17/25 13:54 TS Document 02/24/25 13:39 ML [id number] 02/24/25 13:48 ML Document 03/03/25 12:22 TS [id number] 03/03/25 12:26 TS Document 03/10/25 12:29 TS [id number] 03/10/25 12:36 TS 02/17/25 02/24/25 03/03/25 13:48 13:39 12:22 - Today's Visit Information Type of service Follow-up Visit Follow-up Visit Initial Visit (Physician/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 (Physician/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 ) ) Arrival Mode Ambulatory,Cane Ambulatory Ambulatory Transfer Assistance None Patient Identification Verified (Name & Yes Yes Yes ) Patient Requires Transmission-Based No No No Precautions Safety Precautions Fall Prevention Fall Prevention Vital Signs Temperature (97.8 F-99.1 F) 96.4 F L 97.1 F L 97.1 F L Temperature Source Temporal Temporal Temporal Pulse Rate (60-100) 93 101 H 87 Pulse Location Monitor Monitor Monitor Respiratory Rate (12-18) 16 18 16 Respiratory rate source Observation Observation Observation Oxygen Delivery Method Room Air Room Air Blood Pressure (90/60-120/80) 169/69 H 165/77 H 140/84 H Blood Pressure Mean (mm Hg) 102 106 102 Source Monitor Monitor Monitor Position Sitting Sitting Sitting Blood Pressure Location Right Arm Right Arm Right Arm History Since Last Visit- (Skip if this is Patient's initial visit) Have you changed medications since your No No No last visit? Any new allergies or adverse reactions No No No Had a fall/change in ADL's that may No No No increase risk of falls Signs or symptoms of abuse and/or No No No neglect since last visit Have you been in the hospital since your No No No last visit? Has dressing in place as prescribed Yes Yes Yes Has compression in place as prescribed Yes Yes Yes Has offloadiing in place as prescribed N/A N/A N/A Experienced any changes in pain level or No No No management Left Footwear Regular Shoe Regular Shoe Right Footwear Regular Shoe Regular Shoe Pain Scale: 0-10 Numeric Is Patient Pain Free? Yes Yes Yes 03/10/25 12:29 WC - Today's Visit Information Type of service Arrival Mode Wheelchair Transfer Assistance Patient Identification Verified (Name & Yes ) Patient Requires Transmission-Based No Precautions Safety Precautions Fall Prevention Vital Signs Temperature (97.8 F-99.1 F) 97.0 F L Temperature Source Temporal Pulse Rate (60-100) 94 Pulse Location Monitor Respiratory Rate (12-18) 16 Respiratory rate source Observation Oxygen Delivery Method Room Air Blood Pressure (90/60-120/80) 107/69 Blood Pressure Mean (mm Hg) 81 Source Monitor Position Sitting Blood Pressure Location Left Arm History Since Last Visit- (Skip if this is Patient's initial visit) Have you changed medications since your No last visit? Any new allergies or adverse reactions No Had a fall/change in ADL's that may No increase risk of falls Signs or symptoms of abuse and/or No neglect since last visit Have you been in the hospital since your No last visit? Has dressing in place as prescribed Yes Has compression in place as prescribed Yes Has offloadiing in place as prescribed Yes Experienced any changes in pain level or No management Left Footwear Surgical Shoe with pressure relief insole Right Footwear Regular Shoe Pain Scale: 0-10 Numeric Is Patient Pain Free? Yes WC - Nurse 1 - General Ulcer Measurement Start: 02/17/25 13:47 Freq: Status: Active Protocol: Activity Type Activity Date Activity User E-sign Co-sign Detail Recorded Client Recorded Date Recorded By Document 02/17/25 13:48 TS [id number] 02/17/25 13:54 TS Document 02/24/25 13:39 ML [id number] 02/24/25 13:48 ML Document 03/03/25 12:22 TS [id number] 03/03/25 12:26 TS Document 03/10/25 12:29 TS [id number] 03/10/25 12:36 TS Edit Result 03/10/25 12:29 TS (1) [id number] 03/10/25 12:40 TS (1) *#3 LT LAT FT CLUSTER - Ulcer Cleansing => Not Cleansed - Wound Comment(s) => epifix left in place, Dr Otoole to see 02/17/25 02/24/25 03/03/25 13:48 13:39 12:22 Wound Center Nurse 1 #4 LEFT LATERAL SUP FOOT -Current Size (cm) - Length 1.5 -Current Size (cm) - Width 0.5 -Current Size (cm) - Depth 0.1 -Total Square Cm 0.75 -Exudate Amt Small -Exudate Type Serosanguineous -Granulation Amt Medium (34-66%) -Granulation Quality [place] -Slough/Fibrin Yes -Necrosis Amt Small (1-33%) -Texture (Edwina-wound Skin Appearance) Assessed -Color (Edwina-wound Skin Appearance) Assessed -Temperature (Edwina-wound Skin No Abnormality Appearance) (Pt Warm) -Tenderness on Palpation (Edwina-wound No Skin Appearance) -Ulcer Cleansing Rinsed/ Irrigated with Saline -Foul Odor after Cleansing No -Anesthetic Used 5% Lidocaine Gel *#3 LT LAT FT CLUSTER -Combined with other wound No -Current Size (cm) - Length 0.3 1.5 1.2 -Current Size (cm) - Width 0.1 0.5 0.1 -Current Size (cm) - Depth 0.1 0.1 0.2 -Total Square Cm 0.03 0.75 0.12 -Date of Last Picture (Recall this 02/17/25 field) -Photo Taken Yes -Undermining/Tunneling No -Circular Undermining No No -Exudate Amt Small None Present Medium -Exudate Type Serous Sanguineous Serosanguineous -Wound Margin Distinct, Distinct, Outline Outline Attached Attached -Granulation Amt Medium (34-66%) None Present (0 Medium (34-66%) %) -Granulation Quality [place],Red [place],Red -Slough/Fibrin No Yes Yes -Necrosis Amt Medium (34-66%) -Necrotic Tissue Type Adherent Slough -Structure Exposed None/Limited to Fascia Skin Breakdown -Texture (Edwina-wound Skin Appearance) Assessed Assessed Assessed -Moisture (Edwina-wound Skin Appearance) No Abnormality Assessed -Color (Edwina-wound Skin Appearance) Assessed Assessed Assessed -Temperature (Edwina-wound Skin No Abnormality No Abnormality No Abnormality Appearance) (Pt Warm) (Pt Warm) (Pt Warm) -Tenderness on Palpation (Edwina-wound No Skin Appearance) -Ulcer Cleansing Soap and Water Rinsed/ Soap and Water Irrigated with Saline -Foul Odor after Cleansing No No No -Anesthetic Used 5% Lidocaine 5% Lidocaine 5% Lidocaine Gel Gel Gel -Wound Comment(s) Point of measurement (cm from the medial instep) Point of Measurement (cm from the medial instep) 03/10/25 12:29 Wound Center Nurse 1 #4 LEFT LATERAL SUP FOOT -Current Size (cm) - Length -Current Size (cm) - Width -Current Size (cm) - Depth -Total Square Cm -Exudate Amt -Exudate Type -Granulation Amt -Granulation Quality -Slough/Fibrin -Necrosis Amt -Texture (Edwina-wound Skin Appearance) -Color (Edwina-wound Skin Appearance) -Temperature (Edwina-wound Skin Appearance) -Tenderness on Palpation (Edwina-wound Skin Appearance) -Ulcer Cleansing -Foul Odor after Cleansing -Anesthetic Used *#3 LT LAT FT CLUSTER -Combined with other wound No -Current Size (cm) - Length -Current Size (cm) - Width -Current Size (cm) - Depth -Total Square Cm -Date of Last Picture (Recall this field) -Photo Taken -Undermining/Tunneling No -Circular Undermining No -Exudate Amt -Exudate Type -Wound Margin Distinct, Outline Attached -Granulation Amt Medium (34-66%) -Granulation Quality Pale,Red -Slough/Fibrin -Necrosis Amt None Present (0 %) -Necrotic Tissue Type -Structure Exposed None/Limited to Skin Breakdown -Texture (Edwina-wound Skin Appearance) Assessed -Moisture (Edwina-wound Skin Appearance) Assessed,Dry/ Scaly -Color (Edwina-wound Skin Appearance) Assessed -Temperature (Edwina-wound Skin No Abnormality Appearance) (Pt Warm) -Tenderness on Palpation (Edwina-wound Skin Appearance) -Ulcer Cleansing Not Cleansed -Foul Odor after Cleansing No -Anesthetic Used -Wound Comment(s) epifix left in place, Dr Otoole to see Point of measurement (cm from the medial 30 instep) Point of Measurement (cm from the medial 21.5 instep) WC - Nurse 2 - General Ulcer CM Notes Start: 02/17/25 13:47 Freq: Status: Active Protocol: Activity Type Activity Date Activity User E-sign Co-sign Detail Recorded Client Recorded Date Recorded By Document 02/17/25 14:16 GM [id number] 02/17/25 14:25 GM Edit Result 02/17/25 14:16 GM (1) [id number] 02/24/25 13:31 GM Document 02/24/25 14:09 GM(2) [id number] 02/24/25 14:23 GM(2) Edit Result 02/24/25 14:09 GM(2) (2) [id number] 02/26/25 07:40 GM(2) Document 03/03/25 12:40 GM [id number] 03/03/25 12:45 GM Edit Result 03/03/25 12:40 GM (3) [id number] 03/09/25 07:33 GM Document 03/10/25 12:44 DS [id number] 03/10/25 12:47 DS (1) *#3 LT LAT FT CLUSTER - Apply Skin Sub - 1st 25 sq cm - Legs 1 => - Apply Skin Sub - 1st 25 sq cm - Feet => 1 (2) *#3 LT LAT FT CLUSTER - Debridement - Subq, 1st 20sq cm Yes => No (3) *#3 LT LAT FT CLUSTER - Apply Skin Sub - 1st 25 sq cm - Feet => 1 - Epifix 18mm Disc Application 1-4 => 3 02/17/25 02/24/25 03/03/25 14:16 14:09 12:40 Wound Center Nurse 2 #4 LEFT LATERAL SUP FOOT -Time 14:10 -Correct Patient Yes -Correct Side, Site, Position Yes -Correct Procedure Yes -Procedure Performed Yes -Type of Procedure Debridement -Clinical Debridement Subcutaneous -Tissue Removed Subcutaneous -Tunneling No -Undermining/Tunneling No -Circular Undermining No -Wound/Ulcer Outcome Not Healed -Ulcer Cleansing Rinsed/ Irrigated with Saline -Foul Odor after Cleansing No -Bioengineered Tissue Yes -Bleeding Controlled with Pressure -Treatment Response Procedure Tolerated Well -Offloading No -Debridement - Subq, 1st 20sq cm Yes *#3 LT LAT FT CLUSTER -Time 14:17 14:12 12:41 -Correct Patient Yes Yes Yes -Correct Side, Site, Position Yes Yes Yes -Correct Procedure Yes Yes Yes -Procedure Performed Yes Yes Yes -Type of Procedure Debridement Debridement Debridement -Clinical Debridement Subcutaneous Subcutaneous Subcutaneous -Tissue Removed Subcutaneous Subcutaneous Subcutaneous -Post Debridement (cm) - Length 1.7 1.5 1.3 -Post Debridement (cm) - Width 0.3 0.2 1.2 -Post Debridement (cm) - Depth 0.5 0.3 0.1 -Total Square (Post) (cm) 0.51 0.30 1.56 -Area of Debridement (cm) - Length 1.7 1.5 1.3 -Area of Debridement (cm) - Width 0.3 0.2 1.2 -Total Square (Area) (cm) 0.51 0.30 1.56 -Tunneling No No No -Undermining/Tunneling No No No -Circular Undermining No No No -Wound/Ulcer Outcome Not Healed Not Healed Not Healed -Ulcer Cleansing Rinsed/ Rinsed/ Rinsed/ Irrigated with Irrigated with Irrigated with Saline Saline Saline -Foul Odor after Cleansing No No No -Bioengineered Tissue Yes Yes Yes -Type of Bioengineered Tissue Epifix Epifix 18mm Epifix 18mm Disc Disc -Expiration Date 09/15/29 10/16/29 10/16/29 -Product Lot Number [id number] -Percent Used 100 100 100 -Lot number of Saline Used [id number] -Bleeding Controlled with Pressure Pressure Pressure -Treatment Response Procedure Procedure Procedure Tolerated Well Tolerated Well Tolerated Well -Offloading No -Debridement - Subq, 1st 20sq cm No No No -Apply Skin Sub - 1st 25 sq cm - Feet 1 1 1 -Epifix Application 1-4 (per sq cm) 3 -Epifix 18mm Disc Application 1-4 3 3 Pain Scale: 0-10 Numeric Is Patient Pain Free? Yes Yes Yes 03/10/25 12:44 Wound Center Nurse 2 #4 LEFT LATERAL SUP FOOT -Time -Correct Patient -Correct Side, Site, Position -Correct Procedure -Procedure Performed -Type of Procedure -Clinical Debridement -Tissue Removed -Tunneling -Undermining/Tunneling -Circular Undermining -Wound/Ulcer Outcome -Ulcer Cleansing -Foul Odor after Cleansing -Bioengineered Tissue -Bleeding Controlled with -Treatment Response -Offloading -Debridement - Subq, 20sq cm *#3 LT LAT FT CLUSTER -Time 12:45 -Correct Patient Yes -Correct Side, Site, Position Yes -Correct Procedure Yes -Procedure Performed Yes -Type of Procedure Debridement -Clinical Debridement Subcutaneous -Tissue Removed Subcutaneous -Post Debridement (cm) - Length 0.8 -Post Debridement (cm) - Width 0.7 -Post Debridement (cm) - Depth 0.1 -Total Square (Post) (cm) 0.56 -Area of Debridement (cm) - Length 0.8 -Area of Debridement (cm) - Width 0.7 -Total Square (Area) (cm) 0.56 -Tunneling No -Undermining/Tunneling No -Circular Undermining No -Wound/Ulcer Outcome Not Healed -Ulcer Cleansing Rinsed/ Irrigated with Saline -Foul Odor after Cleansing No -Bioengineered Tissue No -Type of Bioengineered Tissue -Expiration Date -Product Lot Number -Percent Used -Lot number of Saline Used -Bleeding Controlled with Pressure -Treatment Response Procedure Tolerated Well -Offloading -Debridement - Subq, 1st 20sq cm Yes -Apply Skin Sub - 1st 25 sq cm - Feet -Epifix Application 1-4 (per sq cm) -Epifix 18mm Disc Application 1-4 Pain Scale: 0-10 Numeric Is Patient Pain Free? Yes - Nurse 3 - General Ulcer D/C NN Start: 02/17/25 13:47 Freq: Status: Active Protocol: Activity Type Activity Date Activity User E-sign Co-sign Detail Recorded Client Recorded Date Recorded By Document 02/17/25 14:42 TS [id number] 02/17/25 14:42 TS Document 02/24/25 14:38 RB [id number] 02/24/25 14:39 RB Document 03/03/25 13:05 JM [id number] 03/03/25 13:07 02/17/25 02/24/25 03/03/25 14:42 14:38 13:05 Wound Care Center Nurse 3 *#3 LT LAT FT CLUSTER -Ulcer Cleansing epifix drsg in place -Primary Dressing Applied C Hydrogel Silvercel Silvercel -Primary Dressing Covered/Secured with Dry Gauze & Dry Gauze Dry Gauze Roll Gauze, Secured with Tape -Hydrogel 0 -Silvercel 1 1 LLE -Lotion applied to leg before No compression wrap -Tubular Bandage Single Layer Single Layer -Size of Tubigrip Used Size C Size D -Size C ($) 1 -Size D ($) 1 Treatment Response Procedure Tolerated Well Pain Scale: 0-10 Numeric Is Patient Pain Free? Yes Yes Yes - Visit Discharge Discharge Condition Stable Stable Stable Ambulatory Status Cane Ambulatory Wheelchair Transportation Private Auto Private Auto Private Auto Accompanied by DAUGHTER daughter Medication Reconcilliation completed & No No provided to patient/care provider Clinical Summary of Care Provided Yes Yes Assessment/Plan Assessment/Plan (1) Non-pressure chronic ulcer of other part of left foot with fat layer exposed: CODE(S): L97.522 - Non-pressure chronic ulcer of other part of left foot with fat layer exposed PLAN: Patient was examined and evaluated. All findings were discussed with the patient. All questions were answered to the patient's satisfaction. Excisional debridement down to including subcutaneous tissue of the full-thickness wound to the left foot done with a number 5 mm dermal curette without incident. Predebridement measurement is sanguinous crust. Postdebridement measurement is 0.8 x 0.7 x 0.1 cm. The left lower extremity full-thickness wound was wiped clean and patted dry. AMD foam followed by dry sterile dressing and single Tubigrip was donned. They will change every other day. Patient will continue to take the antibiotics until gone. She will continue smoking sensation or at least try to reduce her smoking intake. She will also continue strict blood sugar control. Patient will follow-up in Dr. Otoole in 1 week (2) Chronic painful diabetic polyneuropathy: CODE(S): E11.42 - Type 2 diabetes mellitus with diabetic polyneuropathy
[2025-03-17 13:34] VITALS: BP 169/87; PULSE 91; RESP 16; TEMP 36.2
--- NOTE | 2025-03-17 14:17 | PN.PCM_ITS ---
History of Present Illness Date of Service: 03/17/25 Chief Complaint: R BKA stump wound History of Wound: Arianna Jerry is a 57 y/o female who presents to the wound healing center today for management of a right BKA stump wound. She is accompanied to the appointment today by her daughter who helps to supplement her history and also helps with her wound care. 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 At that time, they explored and washed out proximally in her thigh as well. Subsequently she initially had wound vac placed prior to secondary closure. She reports that the amputation site did ultimately heal fully and she was able to obtain a prosthetic. She had been doing very well with her prosthetic and getting back to work etc. Unfortunately about 1-2 months ago she developed a wound on her amputation stump due to the prosthetic rubbing in this area. She presented to the [facility] ER on 02/26/23 with concern of infection. She was admitted from 02/26-03/01 for IV antibiotics. Wound cultures were positive for staph aureus, blood cultures were negative. She was evaluated by orthopedics at that time as well. XR and CT scan performed during that admission were negative for signs of osteomyelitis. She was discharged with a course of Bactrim and referral here. At home, they have been doing daily dressing changes with iodoform and dry gauze dressing. Her daughter reports it has made significant improvement since her hospital stay. Progress of Wound: Healing full-thickness wound to the lateral left foot with skin graft substitute. Subjective Subjective Patient is a 59-year-old diabetic female presenting to wound care center today for follow-up evaluation of full-thickness wound to lateral left foot. The anne ent is almost finished with her antibiotics. She has been watching her weightbearing status to the left foot. Her blood sugar is mildly elevated but overall controlled. She has reduced her smoking intake. She admits improvement to the wound. She denies any pain or redness or drainage. She denies trauma. Denies constitutional symptoms. No other pedal complaints at this time. Objective Data Objective Data Vital Signs: Vital Signs Temp Pulse Resp BP O2 Del Method 97.1 F L 91 16 169/87 H Room Air 03/17/25 13:34 03/17/25 13:34 03/17/25 13:34 03/17/25 13:34 03/17/25 13:34 Oxygen Delivery Method Room Air Lab / Micro Data Micro: Microbiology 02/24/25 14:15 Wound - Left Foot Gram Stain - Final 02/24/25 14:15 Wound - Left Foot Wound Culture - Final Staphylococcus epidermidis Staphylococcus capitis 02/24/25 14:15 Wound - Left Foot Anaerobic Culture - Final No anaerobic bacteria isolated. Physical Exam Narrative Vascular: DP and PT pulses are palpable to the left lower extremity. CFT is brisk. Skin temperature gradient is warm to warm from proximal ankles to distal digits of the left lower extremity. No erythema left foot. Neurological: Light touch is intact. Protective sensation is diminished. Dermatological: Full-thickness wound to the lateral left foot measures 0.8 x 0.5 x 0.1 cm. Wound base is granular with no drainage or malodor. Negative probe to bone. Excisional debridement down to including subcutaneous tissue of the full- thickness wound to the left foot done with a number 5 mm dermal curette without incident. Predebridement measurement is sanguinous crust. Postdebridement measurement is 0.8 x 0.5 x 0.1 cm. Musculoskeletal: No pain on palpation to full-thickness wound left foot. No pain with calf compression. Debridement Note Debridement Note Debridement Free Text: Excisional debridement down to including subcutaneous tissue of the full-thickness wound to the left foot done with a number 5 mm dermal curette without incident. Predebridement measurement is sanguinous crust. Postdebridement measurement is 0.8 x 0.5 x 0.1 cm. Post-Debridement Measurements and Additional Note: Post-Debridement Measurements/Treatment WC - Nurse 1 - General Ulcer Assessment Start: 02/17/25 13:47 Freq: Status: Active Protocol: SUE.CELESTE Activity Type Activity Date Activity User E-sign Co-sign Detail Recorded Client Recorded Date Recorded By Document 02/17/25 13:48 TS [id number] 02/17/25 13:54 TS Document 02/24/25 13:39 ML [id number] 02/24/25 13:48 ML Document 03/03/25 12:22 TS [id number] 03/03/25 12:26 TS Document 03/10/25 12:29 TS [id number] 03/10/25 12:36 TS Document 03/17/25 13:34 TS [id number] 03/17/25 13:36 TS 02/17/25 02/24/25 03/03/25 13:48 13:39 12:22 - Today's Visit Information Type of service Follow-up Visit Follow-up Visit Initial Visit (Physician/HYDRATION PLANT OPERATOR (Physician/HYDRATION PLANT OPERATOR ) ) Arrival Mode Ambulatory,Cane Ambulatory Ambulatory Transfer Assistance None Patient Identification Verified (Name & Yes Yes Yes ) Patient Requires Transmission-Based No No No Precautions Safety Precautions Fall Prevention Fall Prevention Vital Signs Temperature (97.8 F-99.1 F) 96.4 F L 97.1 F L 97.1 F L Temperature Source Temporal Temporal Temporal Pulse Rate (60-100) 93 101 H 87 Pulse Location Monitor Monitor Monitor Respiratory Rate (12-18) 16 18 16 Respiratory rate source Observation Observation Observation Oxygen Delivery Method Room Air Room Air Blood Pressure (90/60-120/80) 169/69 H 165/77 H 140/84 H Blood Pressure Mean (mm Hg) 102 106 102 Source Monitor Monitor Monitor Position Sitting Sitting Sitting Blood Pressure Location Right Arm Right Arm Right Arm History Since Last Visit- (Skip if this is Patient's initial visit) Have you changed medications since your No No No last visit? Any new allergies or adverse reactions No No No Had a fall/change in ADL's that may No No No increase risk of falls Signs or symptoms of abuse and/or No No No neglect since last visit Have you been in the hospital since your No No No last visit? Has dressing in place as prescribed Yes Yes Yes Has compression in place as prescribed Yes Yes Yes Has offloadiing in place as prescribed N/A N/A N/A Experienced any changes in pain level or No No No management Left Footwear Regular Shoe Regular Shoe Right Footwear Regular Shoe Regular Shoe Pain Scale: 0-10 Numeric Is Patient Pain Free? Yes Yes Yes 03/10/25 03/17/25 12:29 13:34 - Today's Visit Information Type of service Follow-up Visit (Physician/HYDRATION PLANT OPERATOR ) Arrival Mode Wheelchair Ambulatory Transfer Assistance Patient Identification Verified (Name & Yes Yes ) Patient Requires Transmission-Based No No Precautions Safety Precautions Fall Prevention Fall Prevention Vital Signs Temperature (97.8 F-99.1 F) 97.0 F L 97.1 F L Temperature Source Temporal Temporal Pulse Rate (60-100) 94 91 Pulse Location Monitor Monitor Respiratory Rate (12-18) 16 16 Respiratory rate source Observation Observation Oxygen Delivery Method Room Air Room Air Blood Pressure (90/60-120/80) 107/69 169/87 H Blood Pressure Mean (mm Hg) 81 114 Source Monitor Monitor Position Sitting Sitting Blood Pressure Location Left Arm Right Arm History Since Last Visit- (Skip if this is Patient's initial visit) Have you changed medications since your No No last visit? Any new allergies or adverse reactions No No Had a fall/change in ADL's that may No No increase risk of falls Signs or symptoms of abuse and/or No No neglect since last visit Have you been in the hospital since your No No last visit? Has dressing in place as prescribed Yes Yes Has compression in place as prescribed Yes N/A Has offloadiing in place as prescribed Yes N/A Experienced any changes in pain level or No No management Left Footwear Surgical Shoe Regular Shoe with pressure relief insole Right Footwear Regular Shoe Regular Shoe Pain Scale: 0-10 Numeric Is Patient Pain Free? Yes Yes WC - Nurse 1 - General Ulcer Measurement Start: 02/17/25 13:47 Freq: Status: Active Protocol: Activity Type Activity Date Activity User E-sign Co-sign Detail Recorded Client Recorded Date Recorded By Document 02/17/25 13:48 TS [id number] 02/17/25 13:54 TS Document 02/24/25 13:39 ML [id number] 02/24/25 13:48 ML Document 03/03/25 12:22 TS [id number] 03/03/25 12:26 TS Document 03/10/25 12:29 TS [id number] 03/10/25 12:36 TS Edit Result 03/10/25 12:29 TS (1) [id number] 03/10/25 12:40 TS Document 03/17/25 13:34 TS [id number] 03/17/25 13:36 TS (1) *#3 LT LAT FT CLUSTER - Ulcer Cleansing => Not Cleansed - Wound Comment(s) => epifix left in place, Dr Otoole to see 02/17/25 02/24/25 03/03/25 13:48 13:39 12:22 Wound Center Nurse 1 #4 LEFT LATERAL SUP FOOT -Current Size (cm) - Length 1.5 -Current Size (cm) - Width 0.5 -Current Size (cm) - Depth 0.1 -Total Square Cm 0.75 -Exudate Amt Small -Exudate Type Serosanguineous -Granulation Amt Medium (34-66%) -Granulation Quality [place] -Slough/Fibrin Yes -Necrosis Amt Small (1-33%) -Texture (Edwina-wound Skin Appearance) Assessed -Color (Edwina-wound Skin Appearance) Assessed -Temperature (Edwina-wound Skin No Abnormality Appearance) (Pt Warm) -Tenderness on Palpation (Edwina-wound No Skin Appearance) -Ulcer Cleansing Rinsed/ Irrigated with Saline -Foul Odor after Cleansing No -Anesthetic Used 5% Lidocaine Gel *#3 LT LAT FT CLUSTER -Combined with other wound No -Current Size (cm) - Length 0.3 1.5 1.2 -Current Size (cm) - Width 0.1 0.5 0.1 -Current Size (cm) - Depth 0.1 0.1 0.2 -Total Square Cm 0.03 0.75 0.12 -Date of Last Picture (Recall this 02/17/25 field) -Photo Taken Yes -Undermining/Tunneling No -Circular Undermining No No -Exudate Amt Small None Present Medium -Exudate Type Serous Sanguineous Serosanguineous -Wound Margin Distinct, Distinct, Outline Outline Attached Attached -Granulation Amt Medium (34-66%) None Present (0 Medium (34-66%) %) -Granulation Quality [place],Red [place],Red -Slough/Fibrin No Yes Yes -Necrosis Amt Medium (34-66%) -Necrotic Tissue Type Adherent Slough -Structure Exposed None/Limited to Fascia Skin Breakdown -Texture (Edwina-wound Skin Appearance) Assessed Assessed Assessed -Moisture (Edwina-wound Skin Appearance) No Abnormality Assessed -Color (Edwina-wound Skin Appearance) Assessed Assessed Assessed -Temperature (Edwina-wound Skin No Abnormality No Abnormality No Abnormality Appearance) (Pt Warm) (Pt Warm) (Pt Warm) -Tenderness on Palpation (Edwina-wound No Skin Appearance) -Ulcer Cleansing Soap and Water Rinsed/ Soap and Water Irrigated with Saline -Foul Odor after Cleansing No No No -Anesthetic Used 5% Lidocaine 5% Lidocaine 5% Lidocaine Gel Gel Gel -Wound Comment(s) Point of measurement (cm from the medial instep) Point of Measurement (cm from the medial instep) 03/10/25 03/17/25 12:29 13:34 Wound Center Nurse 1 #4 LEFT LATERAL SUP FOOT -Current Size (cm) - Length -Current Size (cm) - Width -Current Size (cm) - Depth -Total Square Cm -Exudate Amt -Exudate Type -Granulation Amt -Granulation Quality -Slough/Fibrin -Necrosis Amt -Texture (Edwina-wound Skin Appearance) -Color (Edwina-wound Skin Appearance) -Temperature (Edwina-wound Skin Appearance) -Tenderness on Palpation (Edwina-wound Skin Appearance) -Ulcer Cleansing -Foul Odor after Cleansing -Anesthetic Used *#3 LT LAT FT CLUSTER -Combined with other wound No No -Current Size (cm) - Length 0.1 -Current Size (cm) - Width 0.1 -Current Size (cm) - Depth 0.1 -Total Square Cm 0.01 -Date of Last Picture (Recall this 03/17/25 field) -Photo Taken Yes -Undermining/Tunneling No No -Circular Undermining No No -Exudate Amt None Present -Exudate Type -Wound Margin Distinct, Distinct, Outline Outline Attached Attached -Granulation Amt Medium (34-66%) Medium (34-66%) -Granulation Quality Pale,Red Red -Slough/Fibrin -Necrosis Amt None Present (0 %) -Necrotic Tissue Type Adherent Slough -Structure Exposed None/Limited to None/Limited to Skin Breakdown Skin Breakdown -Texture (Edwina-wound Skin Appearance) Assessed Assessed -Moisture (Edwina-wound Skin Appearance) Assessed,Dry/ Assessed,Dry/ Scaly Scaly -Color (Edwina-wound Skin Appearance) Assessed Assessed,Not Assessed -Temperature (Edwina-wound Skin No Abnormality Appearance) (Pt Warm) -Tenderness on Palpation (Edwina-wound Skin Appearance) -Ulcer Cleansing Not Cleansed Soap and Water -Foul Odor after Cleansing No Yes -Anesthetic Used 5% Lidocaine Gel -Wound Comment(s) epifix left in place, Dr Otoole to see Point of measurement (cm from the medial 30 28 instep) Point of Measurement (cm from the medial 21.5 19 instep) WC - Nurse 2 - General Ulcer CM Notes Start: 02/17/25 13:47 Freq: Status: Active Protocol: Activity Type Activity Date Activity User E-sign Co-sign Detail Recorded Client Recorded Date Recorded By Document 02/17/25 14:16 [id number] 02/17/25 14:25 GM Edit Result 02/17/25 14:16 GM (1) [id number] 02/24/25 13:31 GM Document 02/24/25 14:09 GM(2) [id number] 02/24/25 14:23 GM(2) Edit Result 02/24/25 14:09 GM(2) (2) [id number] 02/26/25 07:40 GM(2) Document 03/03/25 12:40 GM [id number] 03/03/25 12:45 GM Edit Result 03/03/25 12:40 GM (3) [id number] 03/09/25 07:33 GM Document 03/10/25 12:44 DS [id number] 03/10/25 12:47 DS Document 03/17/25 13:56 DS [id number] 03/17/25 13:58 DS (1) *#3 LT LAT FT CLUSTER - Apply Skin Sub - 1st 25 sq cm - Legs 1 => - Apply Skin Sub - 1st 25 sq cm - Feet => 1 (2) *#3 LT LAT FT CLUSTER - Debridement - Subq, 1st 20sq cm Yes => No (3) *#3 LT LAT FT CLUSTER - Apply Skin Sub - 1st 25 sq cm - Feet => 1 - Epifix 18mm Disc Application 1-4 => 3 02/17/25 02/24/25 03/03/25 14:16 14:09 12:40 Wound Center Nurse 2 #4 LEFT LATERAL SUP FOOT -Time 14:10 -Correct Patient Yes -Correct Side, Site, Position Yes -Correct Procedure Yes -Procedure Performed Yes -Type of Procedure Debridement -Clinical Debridement Subcutaneous -Tissue Removed Subcutaneous -Tunneling No -Undermining/Tunneling No -Circular Undermining No -Wound/Ulcer Outcome Not Healed -Ulcer Cleansing Rinsed/ Irrigated with Saline -Foul Odor after Cleansing No -Bioengineered Tissue Yes -Bleeding Controlled with Pressure -Treatment Response Procedure Tolerated Well -Offloading No -Debridement - Subq, 1st 20sq cm Yes *#3 LT LAT FT CLUSTER -Time 14:17 14:12 12:41 -Correct Patient Yes Yes Yes -Correct Side, Site, Position Yes Yes Yes -Correct Procedure Yes Yes Yes -Procedure Performed Yes Yes Yes -Type of Procedure Debridement Debridement Debridement -Clinical Debridement Subcutaneous Subcutaneous Subcutaneous -Tissue Removed Subcutaneous Subcutaneous Subcutaneous -Post Debridement (cm) - Length 1.7 1.5 1.3 -Post Debridement (cm) - Width 0.3 0.2 1.2 -Post Debridement (cm) - Depth 0.5 0.3 0.1 -Total Square (Post) (cm) 0.51 0.30 1.56 -Area of Debridement (cm) - Length 1.7 1.5 1.3 -Area of Debridement (cm) - Width 0.3 0.2 1.2 -Total Square (Area) (cm) 0.51 0.30 1.56 -Tunneling No No No -Undermining/Tunneling No No No -Circular Undermining No No No -Wound/Ulcer Outcome Not Healed Not Healed Not Healed -Ulcer Cleansing Rinsed/ Rinsed/ Rinsed/ Irrigated with Irrigated with Irrigated with Saline Saline Saline -Foul Odor after Cleansing No No No -Bioengineered Tissue Yes Yes Yes -Type of Bioengineered Tissue Epifix Epifix 18mm Epifix 18mm Disc Disc -Expiration Date 09/15/29 10/16/29 10/16/29 -Product Lot Number [id number] -Percent Used 100 100 100 -Lot number of Saline Used [id number] -Bleeding Controlled with Pressure Pressure Pressure -Treatment Response Procedure Procedure Procedure Tolerated Well Tolerated Well Tolerated Well -Offloading No -Debridement - Subq, 1st 20sq cm No No No -Apply Skin Sub - 1st 25 sq cm - Feet 1 1 1 -Epifix Application 1-4 (per sq cm) 3 -Epifix 18mm Disc Application 1-4 3 3 Pain Scale: 0-10 Numeric Is Patient Pain Free? Yes Yes Yes 03/10/25 03/17/25 12:44 13:56 Wound Center Nurse 2 #4 LEFT LATERAL SUP FOOT -Time -Correct Patient -Correct Side, Site, Position -Correct Procedure -Procedure Performed -Type of Procedure -Clinical Debridement -Tissue Removed -Tunneling -Undermining/Tunneling -Circular Undermining -Wound/Ulcer Outcome -Ulcer Cleansing -Foul Odor after Cleansing -Bioengineered Tissue -Bleeding Controlled with -Treatment Response -Offloading -Debridement - Subq, 1st 20sq cm *#3 LT LAT FT CLUSTER -Time 12:45 13:56 -Correct Patient Yes Yes -Correct Side, Site, Position Yes Yes -Correct Procedure Yes Yes -Procedure Performed Yes Yes -Type of Procedure Debridement Debridement -Clinical Debridement Subcutaneous Subcutaneous -Tissue Removed Subcutaneous Subcutaneous -Post Debridement (cm) - Length 0.8 1.8 -Post Debridement (cm) - Width 0.7 0.5 -Post Debridement (cm) - Depth 0.1 0.1 -Total Square (Post) (cm) 0.56 0.90 -Area of Debridement (cm) - Length 0.8 1.8 -Area of Debridement (cm) - Width 0.7 0.5 -Total Square (Area) (cm) 0.56 0.90 -Tunneling No No -Undermining/Tunneling No No -Circular Undermining No No -Wound/Ulcer Outcome Not Healed Not Healed -Ulcer Cleansing Rinsed/ Rinsed/ Irrigated with Irrigated with Saline Saline -Foul Odor after Cleansing No No -Bioengineered Tissue No No -Type of Bioengineered Tissue -Expiration Date -Product Lot Number -Percent Used -Lot number of Saline Used -Bleeding Controlled with Pressure Pressure -Treatment Response Procedure Procedure Tolerated Well Tolerated Well -Offloading -Debridement - Subq, 1st 20sq cm Yes Yes -Apply Skin Sub - 1st 25 sq cm - Feet -Epifix Application 1-4 (per sq cm) -Epifix 18mm Disc Application 1-4 Pain Scale: 0-10 Numeric Is Patient Pain Free? Yes Yes WC - Nurse 3 - General Ulcer D/C NN Start: 02/17/25 13:47 Freq: Status: Active Protocol: Activity Type Activity Date Activity User E-sign Co-sign Detail Recorded Client Recorded Date Recorded By Document 02/17/25 14:42 TS [id number] 02/17/25 14:42 TS Document 02/24/25 14:38 RB [id number] 02/24/25 14:39 RB Document 03/03/25 13:05 JM [id number] 03/03/25 13:07 JM Document 03/10/25 12:54 ML [id number] 03/10/25 12:55 ML 02/17/25 02/24/25 03/03/25 14:42 14:38 13:05 Wound Care Center Nurse 3 *#3 LT LAT FT CLUSTER -Ulcer Cleansing epifix drsg in place -Primary Dressing Applied C Hydrogel Silvercel Silvercel -Primary Dressing Covered/Secured with Dry Gauze & Dry Gauze Dry Gauze Roll Gauze, Secured with Tape -AMD Dressing 4x4 -Hydrogel 0 -Silvercel 1 1 LLE -Lotion applied to leg before No compression wrap -Tubular Bandage Single Layer Single Layer -Size of Tubigrip Used Size C Size D -Size C ($) 1 -Size D ($) 1 Treatment Response Procedure Tolerated Well Pain Scale: 0-10 Numeric Is Patient Pain Free? Yes Yes Yes WC - Visit Discharge Discharge Condition Stable Stable Stable Ambulatory Status Cane Ambulatory Wheelchair Transportation Private Auto Private Auto Private Auto Accompanied by DAUGHTER daughter Medication Reconcilliation completed & No No provided to patient/care provider Clinical Summary of Care Provided Yes Yes 03/10/25 12:54 Wound Care Center Nurse 3 *#3 LT LAT FT CLUSTER -Ulcer Cleansing Rinsed/ Irrigated with Saline -Primary Dressing Applied AMD Dressing 4x4 -Primary Dressing Covered/Secured with Dry Gauze & Roll Gauze, Secured with Tape -AMD Dressing 4x4 1 -Hydrogel -Silvercel LLE -Lotion applied to leg before compression wrap -Tubular Bandage Single Layer -Size of Tubigrip Used Size D -Size C ($) -Size D ($) 1 Treatment Response Pain Scale: 0-10 Numeric Is Patient Pain Free? Yes WC - Visit Discharge Discharge Condition Ambulatory Status Transportation Accompanied by Medication Reconcilliation completed & provided to patient/care provider Clinical Summary of Care Provided Assessment/Plan Assessment/Plan (1) Non-pressure chronic ulcer of other part of left foot with fat layer exposed: CODE(S): L97.522 - Non-pressure chronic ulcer of other part of left foot with fat layer exposed PLAN: Patient was examined and evaluated. All findings were discussed with the patient. All questions were answered to the patient's satisfaction. Excisional debridement down to including subcutaneous tissue of the full- thickness wound to the left foot done with a number 5 mm dermal curette without incident. Predebridement measurement is sanguinous crust. Postdebridement measurement is 0.8 x 0.5 x 0.1 cm. The left foot was cleaned and patted dry. AMD pad followed by dry sterile dressing and light compression wrap was donned to left foot. Patient will change daily. She will continue strict blood sugar control. She will continue smoking cessation. Patient will follow-up in Dr. Otoole in 2 week (2) Chronic painful diabetic polyneuropathy: CODE(S): E11.42 - Type 2 diabetes mellitus with diabetic polyneuropathy
--- NOTE | 2025-03-19 12:01 | WC ---
PHOTO: LEFT LAT FOOT 03/17/25
== END 2025-03-17 23:59 | disposition home or self-care (01) ==
LOC: WC 13:30
PROVIDERS: PCP Family Medicine; Referring Provider Family Medicine; Visit Provider Podiatrist Foot & Ankle Surgery
DX: E11.621 Type 2 diabetes mellitus with foot ulcer (principal); L97.523 Non-pressure chronic ulcer of other part of left foot with necrosis of muscle; Z89.511 Acquired absence of right leg below knee; E11.42 Type 2 diabetes mellitus with diabetic polyneuropathy; F17.210 Nicotine dependence, cigarettes, uncomplicated
CPT/HCPCS: 11042; 15271; 15275; 87070; 87075; 87077; 87186; 87205; Q4186